=== PATIENT | female | born 1985 | race Caucasian/White ===

== ENCOUNTER 2022-07-05 10:19 | Emergency (ER) | payer MEDICARE, SELFPAY ==
[2022-07-05 10:22] VITALS: BP 147/99; PULSE 105; RESP 17; TEMP 36.1; O2SAT 100; BMI 44.4
--- NOTE | 2022-07-05 10:32 | US_ITS ---
STUDY: ULTRASOUND TRANSVAGINAL CLINICAL: Female, 37 years old. RT ABD PAIN NEAR INCISION- S/P HYSTERECTOMY IN APRIL TECHNIQUE: Transabdominal and Transvaginal COMPARISON: None. FINDINGS: The uterus is absent. Status post hysterectomy. The right ovary is not visualized. No adnexal mass is seen. The left ovary measures 3.1 x 1.9 x 1.5 cm. There is a complex mass in the left ovary measuring about 1.2 cm could represent hemorrhagic cyst or less likely solid mass. There is no free fluid in the pelvis. US/Transvaginal Non- IMPRESSION: 1. Status post hysterectomy. 2. Nonvisualization of the right ovary. 3. Small complex mass in the left ovary could represent hemorrhagic cyst. Solid mass that this likely. Follow-up exam in 2 months is recommended. Electronically Signed: Zhang Meade MD at 12:16 EDT ,
--- NOTE | 2022-07-05 10:34 | EDS_ITS ---
HPI HPI - GI History of Present Illness Chief Complaint: Abd Pain Narrative Narrative: 37-year-old female presenting with right-sided abdominal pain. She states that in April she had a hysterectomy with removal of her fallopian tubes and her cervix. [place] She states that she recently had to move to [place]. She is not established with any providers. She states she is scheduled to have a primary care provider in [employer] appointment at the end of the month. She states that she had 2 seizures on Wednesday which may have caused the pain. Her describes this as tonic-clonic and pretty standard for her. She does have breakthrough seizures from time to time. She is on Vimpat and medical marijuana. She has not any seizures since. She did not have any head injury. Patient concerned she might of torn something on the inside of her abdomen but this is just below her incision site on the right side of her abdomen. She has 4 incision sites and the other 3 are not tender. She has had a small amount of vaginal spotting but no shauna bleeding. No vaginal discharge. She has nausea but is not febrile. She describes her pain as a tearing sensation. It is worse with movement. She has not had any constipation or diar janna. She does express concern that she has a history of ovarian torsion in the past due to ovarian cysts. She states this pain does not feel like previous ovarian cysts. She is unsure if it feels like a previous torsion. It is high up on her mid abdomen on the right underneath the surgical site however she states that her uterine pain was also very high. Patient is also had a gastric bypass in the past. She is not on any blood thinners. [facility] Medical History Anxiety Depression Intracranial hypertension Ovarian cyst Seizure Home Medications Cymbalta 60 mg PO/SL BID 07/05/22 [History Last Taken Unknown] Vimpat 150 mg PO/SL BID 07/05/22 [History Last Taken Unknown] aripiprazole 5 mg tablet 5 mg PO QHS 07/05/22 [History Last Taken Unknown] lorazepam 0.5 mg tablet 0.5 mg PO DAILY PRN PRN Anxiety 07/05/22 [History Last Taken Unknown] nortriptyline 75 mg capsule 75 mg PO DAILY 07/05/22 [History Last Taken Unknown] omeprazole 20 mg PO/SL DAILY 07/05/22 [History Last Taken Unknown] tramadol 50 mg tablet 50 mg PO PRN PRN Pain 07/05/22 [History Last Taken Unknown] Allergy/AdvReac Type Severity Reaction Status Date / Time Penicillins Allergy Rash Verified 07/05/22 10:22 gabapentin AdvReac TREMORS Verified 07/05/22 10:22 NSAIDS (Non-Steroidal AdvReac GASTRIC Verified 07/05/22 10:22 Anti-Inflamma BYPASS Surgical History H/O: hysterectomy Social History Smoking Status: Current every day smoker tobacco type: e-cigarettes ROS ROS ED Constitutional Constitutional ED: Denies chills or fever(s) ENT ENT ED: Denies rhinorrhea or sore throat Cardiovascular Cardiovascular: Denies chest pain or palpitations Respiratory/Chest Respiratory/Chest: Denies cough or dyspnea Gastrointestinal Gastrointestinal: Reports abdominal pain and nausea; Denies constipation, diarrhea or vomiting Genitourinary Genitourinary ED: Reports other Details: Scant vaginal spotting ; Denies dysuria or urinary frequency Musculoskeletal Musculoskeletal: Denies arthralgias or back pain Integumentary Denies abscess Neurologic Neurologic: Denies headache(s) Psychiatric Psychiatric: Denies anxiety or depression EXAM Physical Exam Const Vital Signs: 07/05/22 10:22 07/05/22 13:09 Temperature 96.9 F L Temperature Source Temporal Pulse Rate 105 H 93 Respiratory Rate 17 16 Blood Pressure 147/99 H 127/84 H Blood Pressure Mean 115 98 Pulse Ox 100 97 Oxygen Delivery Method Room Air Room Air Positive well nourished and obese General Appearance ED: NAD; Negative for pallor Nutritional Appearance: obese HEENT Reports TM's clear and moist mucous membranes Tympanic Membrane ED: Yes TM's clear Eyes PERRL and EOMs intact bilaterally General Eye ED: Negative for pale conjunctiva Neck no lymphadenopathy Resp normal respiratory effort and clear to auscultation bilaterally Auscultation: Negative for rales, rhonchi or wheezes Cardio regular rhythm Rate: tachycardic GI Palpation: tender RLQ, RUQ, periumbilical and suprapubic Extremity full ROM General Extremety ED: Negative for edema or tenderness General Extremity: Negative for edema Neuro CN's II-XII intact bilaterally, moves all extremities and no sensory deficits noted Sensorium / Orientation: alert, oriented to person, oriented to place and oriented to time Motor Exam: strength 5/5 throughout Psych mental status grossly normal Mood & Affect: Negative for depressed Skin no wounds General Skin Exam: Negative for jaundice or pallor MDM MDM MDM Narrative Medical decision making narrative: Patient presenting with abdominal pain which is right-sided. Patient given a dose of morphine and Zofran on arrival. IV fluids were also given. Obtained lab work and her CBC and CMP are normal. Lipase is negative. Patient has concern for ovarian torsion and a transvaginal ultrasound was obtained. This does show a small ovarian cyst on the left side which could be a hemorrhagic cyst but she is not having any pain here. She does have history of multiple cyst she states. There is nonvisualization of the right ovary although she is not in significant pain after being medicated. She appears comfortable. I did obtain a CT of the abdomen pelvis with IV contrast which does not show any inflammation in the area of the right ovary and her lab work certainly would not reflect any inflammation/infection. She does have a large amount of fecal retention which I think is most likely the cause of her pain. I counseled her on the findings. She is to do MiraLAX at home for the next 3 days. Return precautions were discussed. I recommended establishing with a primary care provider. Impression: 1. Postoperative pain 2. Abdominal pain 3. Constipation 4. History of ovarian cyst Lab Data Labs: Laboratory Results - last 24 hr 07/05/22 07/05/22 10:40 10:40 WBC 7.0 RBC 4.27 Hgb 13.8 Hct 41.6 MCV 97.4 MCH 32.3 H MCHC 33.2 RDW Std Deviation 43.8 RDW Coeff of Analilia 12.2 Plt Count 237 MPV 9.6 Immature Gran % (Auto) 0.300 Neut % (Auto) 66.3 Lymph % (Auto) 25.1 [place] % (Auto) 6.6 Eos % (Auto) 1.1 Baso % (Auto) 0.6 Absolute Neuts (auto) 4.6 Absolute Lymphs (auto) 1.75 Nucleated RBC % 0 Sodium 140 Potassium 4.5 Chloride 107 Carbon Dioxide 29.0 Anion Gap 4 L BUN 16 Creatinine 0.66 Estim Creat Clear Calc 100.78 Est GFR (MDRD) Af Amer 129 Est GFR (MDRD) Non-Af 106 BUN/Creatinine Ratio 24.1 H Glucose 95 Calcium 8.4 L Total Bilirubin 0.40 AST 20 ALT 31 Alkaline Phosphatase 95 Total Protein 6.4 Albumin 3.3 Globulin 3.1 Albumin/Globulin Ratio 1.1 Lipase 169 Radiography Diagnostic Testing: Clinical Impression(s) from Imaging Studies Transvaginal US 07/05/22 10:32 IMPRESSION: 1. Status post hysterectomy. 2. Nonvisualization of the right ovary. 3. Small complex mass in the left ovary could represent hemorrhagic cyst. Solid mass that this likely. Follow-up exam in 2 months is recommended. Electronically Signed: Zhang Meade MD at 12:16 EDT , Abdomen/Pelvis CT 07/05/22 11:23 IMPRESSION: 1. Borderline to mild hepatosplenomegaly. 2. Status post gastric surgery. No evidence of bowel obstruction. 3. No focal acute inflammatory process. 4. Status post hysterectomy and cholecystectomy.. Electronically Signed: Zhang Meade MD at 12:36 EDT , Discharge Plan Triage Chief Complaint: Abd Pain ED Provider: Lon Galan Dx/Rx/DC Orders Instructions: ED Abdominal Pain Unkn Cause Fem, ED Constipation (Adult), ED Post Op Wound Check, Pain Prescriptions: No Action tramadol 50 mg tablet 50 mg PO PRN PRN (Reason: Pain) Label Comments: TAKE 1 TABLET BY MOUTH TWICE DAILY NEEDED . 60 TABLETS PER 30 DAYS lorazepam 0.5 mg tablet 0.5 mg PO DAILY PRN PRN (Reason: Anxiety) Label Comments: TAKE 1 TABLET BY MOUTH ONCE DAILY nortriptyline 75 mg capsule 75 mg PO DAILY Label Comments: TAKE 1 CAPSULE BY MOUTH ONCE DAILY aripiprazole 5 mg tablet 5 mg PO QHS Label Comments: TAKE 1 TABLET BY MOUTH NIGHTLY Cymbalta 60 mg PO/SL BID Vimpat 150 mg PO/SL BID omeprazole 20 mg PO/SL DAILY Primary Care Provider: Damien Uriarte Referrals: Damien Uriarte MD [Primary Care Provider] - Disposition Disposition: Home, Self Care
[2022-07-05] MEDS: Ondansetron 4 MG/2 ML Vial IV ×2 (10:47→12:29)
[2022-07-05] MEDS: 0.9% Normal Saline 1,000 ML 1000 ML IV (10:47)
[2022-07-05] MEDS: Morphine 4 MG/ML Syringe IV ×2 (10:47→12:30)
[2022-07-05 10:52] LABS: Absolute Lymphocyte Count 1.75 X10^3/uL (0.83-4.51); Absolute Neutrophil Count 4.6 X10^3/uL (2.0-7.7); Basophil# 0.04 X10^3/uL; Basophil% 0.6 % (0-1); Eosinophil# 0.08 X10^3/uL; Eosinophils% 1.1 % (0-5); Hematocrit 41.6 % (37-47); Hemoglobin 13.8 g/dL (12.0-15.0); Lymphocyte # 1.75 X10^3/ul (0.83-4.51); Lymphocyte % 25.1 % (19-41); Mean Corp Hgb Conc 33.2 g/dL (32-36); Mean Corpuscular Hgb 32.3 pg (27.0-32.0); Mean Corpuscular Volume 97.4 fL (81-99); Mean Platelet Vol. 9.6 fl (6.2-12.0); Monocyte# 0.46 X10^3/uL; Monocyte% 6.6 % (0-10); NRBC Flagged by Analyzer 0 % (0-5); Neutrophil # 4.61 X10^3/uL (2.7-7.7); Neutrophil % 66.3 % (47-70); Platelet Count 237 K/mm3 (150-450); RBC Distribution Width CV 12.2 % (11.6-14.6); RBC Distribution Width SD 43.8 fl (35.1-43.9); Red Blood Count 4.27 M/mm3 (4.2-5.4)
[2022-07-05 11:07] LABS: ALB/GLOB Ratio 1.1 RATIO (0.9-2.4); AST(SGOT) 20 U/L (15-37); Alanine Aminotransfer ALT/SGPT 31 U/L (13-56); Albumin, Serum 3.3 g/dL (3.2-5.0); Alkaline Phosphatase 95 U/L (45-117); Anion Gap 4 (5-15); BUN 16 mg/dL (7-18); BUN/Creat Ratio 24.1 RATIO (10-20); Calcium,Total 8.4 mg/dL (8.5-10.1); Chloride 107 mmol/L (98-107); Creatinine, Serum 0.66 mg/dL (0.55-1.02); EST Glomerular Filtration Rate 106 mL/min (>60); Est Glom Filt Rate - Afr Amer 129 mL/min (>60); Estimated Creatinine Clearance 100.78 ml/min; Globulin 3.1 g/dL (2.2-4.2); Glucose 95 mg/dL (74-106); Lipase 169 U/L (73-393); Potassium 4.5 mmol/L (3.5-5.1); Protein, Total 6.4 g/dL (6.4-8.2); Sodium Level 140 mmol/L (136-145)
--- NOTE | 2022-07-05 11:23 | CT_ITS ---
STUDY: CT ABDOMEN AND PELVIS WITH CONTRAST REASON FOR EXAM: Female, 37 years old. Right sided abdominal pain RADIATION DOSAGE (If Supplied By Facility): CTDIvol = ( 16.83 ) mGy, DLP = ( 1235.66 ) mGycm TECHNIQUE: Transaxial images were obtained from the dome of the diaphragm to the symphysis pubis without oral contrast. IV 100mL Isovue-370 was administered. Sagittal and coronal images were reconstructed. Individualized dose optimization techniques were used for this CT. COMPARISON: None. FINDINGS: The visualized lung bases are unremarkable. The visualized portions of the heart are within normal limits. Borderline to mild hepatomegaly. No focal lesion is seen. There are surgical clips in the gallbladder fossa consistent with a prior cholecystectomy. Borderline splenomegaly. Mild prominence of the pancreatic duct. Normal bilateral adrenal glands. Normal right kidney. Normal left kidney. Status post gastric surgery probably bypass. Normal caliber small bowel loops. Fecal retention. No evidence of acute diverticulitis. There are surgical clips in the region of the appendix consistent with a prior appendectomy. Normal abdominal aorta. Normal inferior vena cava. Normal retroperitoneum. Normal urinary bladder. There is absence of the uterus consistent with a prior hysterectomy. Normal abdominal wall. No demonstrated acute osseous changes. CT/Abdomen/Pelvis W IV Cont ONLY IMPRESSION: 1. Borderline to mild hepatosplenomegaly. 2. Status post gastric surgery. No evidence of bowel obstruction. 3. No focal acute inflammatory process. 4. Status post hysterectomy and cholecystectomy.. Electronically Signed: Zhang Meade MD at 12:36 EDT ,
[2022-07-05 13:09] VITALS: BP 127/84; PULSE 93; RESP 16; O2SAT 97
[2022-07-05 13:51] VITALS: BP 132/74; PULSE 64; RESP 15; O2SAT 98
== END 2022-07-05 13:51 | disposition home or self-care (01) ==
PROVIDERS: Emergency Provider Student in an Organized Health Care Education/Training Program; PCP Family Medicine; Visit Provider Student in an Organized Health Care Education/Training Program
DX: K59.00 Constipation, unspecified (principal); G40.909 Epilepsy, unspecified, not intractable, without status epilepticus; N83.202 Unspecified ovarian cyst, left side; G89.18 Other acute postprocedural pain; E66.9 Obesity, unspecified; F32.A Depression, unspecified; F41.9 Anxiety disorder, unspecified; F17.290 Nicotine dependence, other tobacco product, uncomplicated; Z90.710 Acquired absence of both cervix and uterus; Z79.899 Other long term (current) drug therapy
CPT/HCPCS: 74177; 76830; 80053; 83690; 85025; 96361; 96374; 96375; 96376; 99282; J7030; Q9967; A4216; J2405

== ENCOUNTER 2024-06-18 16:53 | Emergency (ER) | payer MEDICARE, BC, SELFPAY ==
[2024-06-18 16:53] VITALS: BP 159/99; PULSE 89; RESP 18; TEMP 37.2; O2SAT 100; BMI 49.1
--- NOTE | 2024-06-18 17:15 | EDS_ITS ---
HPI History of Present Illness Chief Complaint: Flank Pain Informant: patient and spouse/S.O. Narrative Narrative: 39-year-old female presenting to the emergency room with flank and abdominal pain on the right side. Patient states that over the past week week and a half she has had urinary frequency. She states that she ate lunch around noon to 1230. She did not eat anything out of the ordinary for her consisting of a veggie burger and some applesauce. She states that around 1400 hrs. she got a severe pain in the right flank radiating down towards the right lower abdomen. She notes nausea and vomiting. No diarrhea. She has had prior cholecystectomy. She has pseudotumor cerebri and gets lumbar punctures about every 5 weeks. She has also had gastric bypass. She states that she was very warm. She had a fever and is concerned about a kidney infection. [facility] Medical History Intracranial hypertension Seizure Ovarian cyst Depression Anxiety Home Medications ?Medication ?Instructions ?Recorded ?Last Taken ?Type Cymbalta 60 mg PO/SL BID 07/05/22 Unknown History Vimpat 150 mg PO/SL BID 07/05/22 Unknown History aripiprazole 5 mg tablet 5 mg PO QHS 07/05/22 Unknown History lorazepam 0.5 mg tablet 0.5 mg PO DAILY PRN PRN Anxiety 07/05/22 Unknown History nortriptyline 75 mg capsule 75 mg PO DAILY 07/05/22 Unknown History omeprazole 20 mg PO/SL DAILY 07/05/22 Unknown History tramadol 50 mg tablet 50 mg PO PRN PRN Pain 07/05/22 Unknown History magnesium citrate 300 ml PO X1 #1 BOTTLE 06/18/24 Unknown Rx Allergy/AdvReac Type Severity Reaction Status Date / Time Penicillins Allergy Rash Verified 06/18/24 16:53 gabapentin AdvReac TREMORS Verified 06/18/24 16:53 NSAIDS (Non-Steroidal AdvReac GASTRIC Verified 06/18/24 16:53 Anti-Inflamma BYPASS Surgical History S/P [employer] shunt History of appendectomy History of cholecystectomy Gastric bypass status for obesity H/O: hysterectomy Social History Smoking Status: Current every day smoker tobacco type: e-cigarettes ROS ROS ED Constitutional Constitutional ED: Reports fever(s), subjective and sweats; Denies chills or chase ght loss Eyes Eyes: Denies change in vision or diplopia ENT ENT ED: Denies ear pain, rhinorrhea or sore throat Cardiovascular Cardiovascular: Denies chest pain, orthopnea, palpitations or racing heartbeat Respiratory/Chest Respiratory/Chest: Denies cough, dyspnea or orthopnea Gastrointestinal Gastrointestinal: Reports abdominal pain, nausea and vomiting; Denies constipation or diarrhea Genitourinary Genitourinary ED: Denies dysuria, hematuria or urinary frequency Musculoskeletal Musculoskeletal: Denies arthralgias or myalgias Integumentary Denies abscess or rash Neurologic Neurologic: Denies headache(s) or weakness Psychiatric Psychiatric: Denies anxiety, depression, suicidal ideation or suicidal thoughts Endocrine Endocrinology: Denies polydipsia, polyphagia or polyuria Allergic/Immunologic Allergic/Immunologic ED: Denies mouth swelling, tongue swelling or urticaria EXAM Physical Exam Const Vital Signs: 06/18/24 16:53 Temperature 98.9 F Temperature Source Temporal Pulse Rate 89 Respiratory Rate 18 Blood Pressure 159/99 H Blood Pressure Mean 119 Pulse Ox 100 Oxygen Delivery Method Room Air Positive well nourished, well developed and obese Constitutional Narrative: Patient lying in bed holding her right lower abdomen and right flank. She appears uncomfortable. General Appearance ED: well developed Nutritional Appearance: obese HEENT Reports normocephalic, head/scalp atraumatic and moist mucous membranes Eyes PERRL and EOMs intact bilaterally Neck no lymphadenopathy, supple and no JVD Resp normal respiratory effort and clear to auscultation bilaterally Cardio regular rate, regular rhythm and no murmurs GI Inspection: Negative for abdominal distention Auscultation: normoactive bowel sounds Palpation: soft and tender RLQ Back/Spine no CVA tenderness and normal ROM Back/Spine Narrative: There is some purple ecchymotic area around L5-S1 consistent with lumbar pun ctures. No evidence of secondary infection Extremity normal to inspection General Extremety ED: Negative for edema General Extremity: Negative for edema Neuro oriented x3 and CN's II-XII intact bilaterally Sensorium / Orientation: alert Motor Exam: strength 5/5 throughout Psych mental status grossly normal Mood & Affect: Negative for depressed or tearful Skin no rashes or lesions noted and no wounds MDM MDM MDM Narrative Medical decision making narrative: Differential diagnosis includes but not limited to UTI pyelonephritis ureterolithiasis appendicitis colitis choledocholithiasis pelvic pathology such as abscess and psoas IV established patient received morphine and Zofran and IV fluids. She notes that her pain seems worse after the morphine. She received a dose of p.o. Bentyl. White count 7.3 hemoglobin 13 platelet count 240. BMP showed a glucose of 109 normal creatinine and anion gap of 4 BUN of 11 CO2 of 28 liver enzymes are within normal limits. Lipase 87 test negative urinalysis no overt infection no obvious hematuria. Reviewing of the CT scan shows no acute findings. Findings associate with fatty liver were noted. There was a large amount of stool noted in the ascending colon particularly indenting of the miya dder. Perhaps this is the source of the patient's discomfort. We can try some magnesium citrate. Would recommend PCP follow-up return if worsening or new symptoms History & Record Review Discussion w/independent historian: Patient and Significant other Lab Data Attestation: I reviewed the patient's lab results. Labs: Laboratory Results - last 24 hr 06/18/24 06/18/24 17:10 17:25 WBC 7.3 RBC 4.44 Hgb 13.0 Hct 40.1 MCV 90.3 MCH 29.3 MCHC 32.4 RDW Std Deviation 42.6 RDW Coeff of Analilia 12.9 Plt Count 240 MPV 10.2 Immature Gran % (Auto) 0.300 Neut % (Auto) 61.7 Lymph % (Auto) 29.2 [place] % (Auto) 6.7 Eos % (Auto) 1.4 Baso % (Auto) 0.7 Absolute Neuts (auto) 4.5 Absolute Lymphs (auto) 2.14 Nucleated RBC % 0 Sodium 138 Potassium 3.8 Chloride 106 Carbon Dioxide 28.0 Anion Gap 4 L BUN 11 Creatinine 0.71 Estim Creat Clear Calc 142.24 Est GFR (MDRD) Af Amer 118 Est GFR (MDRD) Non-Af 97 BUN/Creatinine Ratio 15.5 Glucose 109 H Calcium 8.4 L Total Bilirubin 0.40 Direct Bilirubin 0.10 AST 15 ALT 20 Alkaline Phosphatase 111 Total Protein 6.5 Albumin 3.3 Globulin 3.2 Lipase 87 H Serum , Qual NEGATIVE Urine Color Yellow Urine Clarity Clear Urine pH 7.0 Ur Specific [place] 1.005 Urine Protein Negative Urine Glucose (UA) Normal Urine Ketones Negative Urine Occult Blood 150 H Urine Nitrite Negative Urine Bilirubin Negative Urine Urobilinogen Normal Ur Leukocyte Esterase 25 H Urine RBC 0 SEEN Urine WBC 0 SEEN Ur Squamous Epith Cells 0-5 SEEN Urine Bacteria 0 SEEN Urine Mucus 0 SEEN Radiography Diagnostic Testing: Clinical Impression(s) from Imaging Studies Abdomen/Pelvis CT 06/18/24 18:09 IMPRESSION: Enlarged liver. Electronically Signed: Koko Berger MD at 18:37 EDT Reading Location ID and State: [facility] / [place] , Service support , Discharge Plan Triage Chief Complaint: Flank Pain ED Provider: Dong Hardwick Dx/Rx/DC Orders Clinical Impression: Abdominal pain Instructions: Abdominal Pain Prescriptions: New magnesium citrate Solution 300 ml PO X1 Qty: 1 0RF No Action tramadol 50 mg tablet 50 mg PO PRN PRN (Reason: Pain) Patient Comments: TAKE 1 TABLET BY MOUTH TWICE DAILY NEEDED . 60 TABLETS PER 30 DAYS lorazepam 0.5 mg tablet 0.5 mg PO DAILY PRN PRN (Reason: Anxiety) Patient Comments: TAKE 1 TABLET BY MOUTH ONCE DAILY nortriptyline 75 mg capsule 75 mg PO DAILY Patient Comments: TAKE 1 CAPSULE BY MOUTH ONCE DAILY aripiprazole 5 mg tablet 5 mg PO QHS Patient Comments: TAKE 1 TABLET BY MOUTH NIGHTLY Cymbalta 60 mg PO/SL BID Vimpat 150 mg PO/SL BID omeprazole 20 mg PO/SL DAILY Primary Care Provider: Fede Whitaker Referrals: Fede Whitaker MD [Primary Care Provider] - 3-5 Days if not improving Activity Restrictions/Additional Instructions: If fever or worsening symptoms new symptoms or not improving you may return to the emergency department particularly in the next 24 hours. If persistent unchanging symptoms you may also follow-up with primary care Print Language: Armenian Disposition Disposition: Home, Self Care
[2024-06-18] MEDS: 0.9% Normal Saline (1000mL) 1,000 ML 999 ML IV (17:26)
[2024-06-18] MEDS: Ondansetron 4 MG/2 ML Vial IV (17:27)
[2024-06-18] MEDS: Morphine 4 MG/ML Syringe IV (17:27)
[2024-06-18 17:30] LABS: Bacteria 0 SEEN /hpf (None Seen); Mucous, Urine 0 SEEN /hpf (<or=2+); Red Blood Cells-Urine 0 SEEN /hpf (0-5); White Blood Cells 0 SEEN /hpf (0-5)
[2024-06-18 17:34] LABS: Absolute Lymphocyte Count 2.14 X10^3/uL (0.83-4.51); Absolute Neutrophil Count 4.5 X10^3/uL (2.0-7.7); Basophil# 0.05 X10^3/uL; Basophil% 0.7 % (0-1); Eosinophils% 1.4 % (0-5); Hematocrit 40.1 % (37-47); Lymphocyte # 2.14 X10^3/ul (0.83-4.51); Lymphocyte % 29.2 % (19-41); Mean Corp Hgb Conc 32.4 g/dL (32-36); Mean Corpuscular Hgb 29.3 pg (27.0-32.0); Mean Corpuscular Volume 90.3 fL (81-99); Mean Platelet Vol. 10.2 fl (6.2-12.0); Monocyte# 0.49 X10^3/uL; Monocyte% 6.7 % (0-10); NRBC Flagged by Analyzer 0 % (0-5); Neutrophil # 4.54 X10^3/uL (2.7-7.7); Neutrophil % 61.7 % (47-70); Platelet Count 240 K/mm3 (150-450); RBC Distribution Width CV 12.9 % (11.6-14.6); RBC Distribution Width SD 42.6 fl (35.1-43.9); Red Blood Count 4.44 M/mm3 (4.2-5.4); White Blood Count 7.3 K/mm3 (4.4-11.0)
[2024-06-18 17:36] LABS: Color, Urine Yellow (Yellow); Glucose, Dipstick Normal (Normal); Ketone-Dipstick Negative (Negative); Leukocyte Esterase-Dipstick 25 /ul (Negative); Nitrite-Dipstick Negative (Negative); Occult Blood-Urine 150 /ul (Negative); Protein-Dipstick Negative (Negative); Specific Gravity, Urine 1.005 (1.002-1.030); Urine Bilirubin Dipstick Negative (Negative); Urine Clarity Clear (Clear); Urine Urobilinogen Normal (Normal)
[2024-06-18 17:51] LABS: Squamous Epithelial Cells - UA 0-5 SEEN /hpf (5-10)
[2024-06-18 17:52] LABS: Internal QC Validated? YES +Cl - CLEAR BKGD; Pregnancy, Serum, hCG Quali. NEGATIVE Negative
[2024-06-18 17:58] LABS: AST(SGOT) 15 U/L (15-37); Alanine Aminotransfer ALT/SGPT 20 U/L (13-56); Albumin, Serum 3.3 g/dL (3.2-5.0); Alkaline Phosphatase 111 U/L (45-117); Anion Gap 4 (5-15); BUN 11 mg/dL (7-18); BUN/Creat Ratio 15.5 RATIO (10-20); Calcium,Total 8.4 mg/dL (8.5-10.1); Chloride 106 mmol/L (98-107); Creatinine, Serum 0.71 mg/dL (0.55-1.02); EST Glomerular Filtration Rate 97 mL/min (>60); Est Glom Filt Rate - Afr Amer 118 mL/min (>60); Estimated Creatinine Clearance 142.24 ml/min; Globulin 3.2 g/dL (2.2-4.2); Glucose 109 mg/dL (74-106); Lipase 87 U/L (13-75); Potassium 3.8 mmol/L (3.5-5.1); Protein, Total 6.5 g/dL (6.4-8.2); Sodium Level 138 mmol/L (136-145)
--- NOTE | 2024-06-18 18:09 | CT_ITS ---
EXAM: CT ABDOMEN AND PELVIS WITH INTRAVENOUS CONTRAST CLINICAL INDICATION: rt sided abd pain TECHNIQUE: Helically acquired images were obtained of the abdomen and pelvis with intravenous contrast. This CT exam was performed using one or more of the following dose reduction techniques: automated exposure control, adjustment of the mA and/or kV according to patient size, and/or use of iterative reconstruction technique. CONTRAST: IV 100mL Isovue-370 RADIATION DOSE: CTDIvol = 16.96 mGy, DLP = 1267.86 mGy-cm COMPARISON: 07.05.22 FINDINGS: LOWER THORAX: Unremarkable. Lung bases are clear. No cardiomegaly. No significant pericardial effusion. ABDOMEN: LIVER: Enlarged liver. GALLBLADDER AND BILE DUCTS: Cholecystectomy. No intra- or extrahepatic biliary ductal dilation. PANCREAS: Unremarkable. No focal cystic or solid mass. SPLEEN: Unremarkable. Normal size without focal cystic or solid mass. ADRENALS: Unremarkable. No nodules. KIDNEYS AND URETERS: There are no renal calculi. Normal renal size and position. No hydronephrosis. STOMACH AND BOWEL: Gastric bypass changes. No stomach or bowel distention. No focal inflammatory change. PELVIS: APPENDIX: Appendectomy changes. BLADDER: Unremarkable. REPRODUCTIVE: Hysterectomy changes. ABDOMEN and PELVIS: INTRAPERITONEAL SPACE: Unremarkable. No ascites or other fluid collection. No free air. BONES/JOINTS: Unremarkable. No suspicious lytic or blastic abnormality. SOFT TISSUES: Unremarkable. No discrete abdominal or pelvic wall hernia. VASCULATURE: Unremarkable. Abdominal aorta is non-dilated. LYMPH NODES: Unremarkable. No enlarged lymph nodes. CT/Abdomen/Pelvis W IV Cont ONLY IMPRESSION: Enlarged liver. Electronically Signed: Koko Berger MD at 18:37 EDT ,
[2024-06-18] MEDS: Dicyclomine 10 MG Capsule 20 MG PO (18:39)
[2024-06-18 18:53] VITALS: BP 143/87; PULSE 83; RESP 16; O2SAT 99
[2024-06-18] MEDS: Magnesium Citrate 300 ML PO (19:15)
[2024-06-18 19:20] VITALS: BP 143/87; PULSE 83; RESP 16; TEMP 37.2; O2SAT 99
== END 2024-06-18 19:22 | disposition home or self-care (01) ==
PROVIDERS: Emergency Provider Emergency Medicine; PCP Family Medicine; Visit Provider Emergency Medicine
DX: R10.31 Right lower quadrant pain (principal); R50.9 Fever, unspecified; R35.0 Frequency of micturition; G93.2 Benign intracranial hypertension; R11.2 Nausea with vomiting, unspecified; F17.290 Nicotine dependence, other tobacco product, uncomplicated; Z79.899 Other long term (current) drug therapy; Z90.49 Acquired absence of other specified parts of digestive tract; Z98.84 Bariatric surgery status
CPT/HCPCS: 74177; 80048; 80076; 81001; 83690; 84703; 85025; 96361; 96374; 96375; 99283; Q9967; A4216; J2405

== ENCOUNTER → 2024-09-11 | Outpatient (CLI) | payer BC, MEDICARE, SELFPAY ==
--- NOTE | 2024-09-11 16:05 | RAD_ITS ---
STUDY: X-RAY - ABDOMEN/PELVIS REASON FOR EXAM: Female, 39 years old. severe constipation x3 weeks TECHNIQUE: COMPARISON: None. FINDINGS: Normal visualized lung bases. There is an unremarkable bowel gas pattern. Diffuse colonic fecal retention. There is no demonstrated free abdominal air. Surgical clips in the right upper quadrant. Normal soft tissue structures. Normal visualized osseous structures. RAD/Abdomen Single View IMPRESSION: Diffuse colonic fecal retention. Electronically Signed: Geronimo Amin DO at 16:17 EDT ,
== END | disposition home or self-care (01) ==
LOC: RAD.FUTURE 15:59 → RAD 16:01
PROVIDERS: PCP Family Medicine; Referring Provider Family Medicine; Visit Provider Family Medicine
DX: K59.00 Constipation, unspecified (principal)
CPT/HCPCS: 74018

== ENCOUNTER 2024-09-12 14:41 | Emergency (ER) | payer BC, MEDICARE, SELFPAY ==
[2024-09-12 14:43] VITALS: BP 138/91; PULSE 112; RESP 16; TEMP 35.9; O2SAT 98; BMI 46.1
--- NOTE | 2024-09-12 16:12 | CT_ITS ---
STUDY: CT ABDOMEN AND PELVIS WITHOUT CONTRAST REASON FOR EXAM: Female, 39 years old. Pain RADIATION DOSAGE (If Supplied By Facility): CTDIvol = ( 23.23 ) mGy, DLP = ( 1282.72 ) mGycm TECHNIQUE: Transaxial images were obtained from the dome of the diaphragm to the symphysis pubis without oral contrast, and without intravenous contrast. Sagittal and coronal images were reconstructed. Individualized dose optimization techniques were used for this CT. COMPARISON: June 18, 2024. FINDINGS: The visualized lung bases are unremarkable. The visualized portions of the heart are within normal limits. Normal liver. There are surgical clips in the gallbladder fossa consistent with a prior cholecystectomy. Normal spleen. Normal pancreas. Normal bilateral adrenal glands. Normal right kidney. Normal left kidney. Evaluation of the GI tract is limited by absence of oral contrast. There has been gastric bypass. No dilated loops of bowel or evidence for obstruction. Cannot exclude segmental thickening of the wang of the small or large bowel. Cannot exclude enteritis or colitis. Marked diffuse fecal retention. Suggestion of previous appendectomy. Normal abdominal aorta. Normal inferior vena cava. Normal retroperitoneum. Normal urinary bladder. There is absence of the uterus consistent with a prior hysterectomy. Normal abdominal wall. Normal osseous structures. CT/Abdomen/Pelvis without Cont IMPRESSION: Marked diffuse fecal retention. No definite acute abnormality. Electronically Signed: Darrell Caldera MD at 17:40 EDT ,
[2024-09-12] MEDS: Ondansetron 4 MG/2 ML Vial IV (16:30)
[2024-09-12] MEDS: morphine 8 MG/ML Syringe IV (16:30)
--- NOTE | 2024-09-12 16:32 | ED.VIS.GI ---
HPI HPI - GI History of Present Illness Chief Complaint: Constipation Informant: patient Narrative Narrative: Patient is a 39-year-old female presenting with worsening constipation and abdominal pain. She states has not had a bowel meant for the past month. She specifies that she has passed very small hard balls of stool over the past few days but nothing else. She has been passing gas. She has had increased periumbilical abdominal pain over the past 2 days that is significantly worse today. Has nausea and gagging but no vomiting. Had an outpatient x-ray which is concerning for fecal impaction she was sent to the ER. Has a history of multiple abdominal surgeries including gastric bypass ([id number]), hysterectomy, cholecystectomy and appendectomy. History of multiple [id number] medications including magnesium citrate, MiraLAX, Colace, Linzess and Metamucil with no relief. Is not tried any enemas. Has never had constipation to this degree in the past. No other complaints or concerns reported at this time. No fever reported [facility] Medical History Intracranial hypertension Seizure Ovarian cyst Depression Anxiety Home Medications ?Medication ?Instructions ?Recorded ?Last Taken ?Type Cymbalta 60 mg PO/SL BID 07/05/22 Unknown History Vimpat 150 mg PO/SL BID 07/05/22 Unknown History aripiprazole 5 mg tablet 5 mg PO QHS 07/05/22 Unknown History lorazepam 0.5 mg tablet 0.5 mg PO DAILY PRN PRN Anxiety 07/05/22 Unknown History nortriptyline 75 mg capsule 75 mg PO DAILY 07/05/22 Unknown History omeprazole 20 mg PO/SL DAILY 07/05/22 Unknown History tramadol 50 mg tablet 50 mg PO PRN PRN Pain 07/05/22 Unknown History magnesium citrate 300 ml PO X1 #1 BOTTLE 06/18/24 Unknown Rx dicyclomine 10 mg capsule 20 mg (2 x 10 mg) PO TID PRN 09/12/24 Unknown Rx abdominal pain #20 CAPSULES lactulose 10 gram/15 mL (15 mL) 15 ml PO BID PRN constipation #300 09/12/24 Unknown Rx oral solution mL Allergy/AdvReac Type Severity Reaction Status Date / Time nortriptyline Allergy Intermediate TREMORS Verified 09/12/24 14:43 pepper (genus Capsicum) Allergy Mild Rash Verified 09/12/24 14:43 Penicillins Allergy Rash Verified 09/12/24 14:43 gabapentin AdvReac TREMORS Verified 09/12/24 14:43 NSAIDS (Non-Steroidal AdvReac GASTRIC Verified 09/12/24 14:43 Anti-Inflamma BYPASS Surgical History 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 History of appendectomy History of cholecystectomy Gastric bypass status for obesity H/O: hysterectomy Social History Smoking Status: Current every day smoker tobacco type: e-cigarettes ROS ROS ED Constitutional Constitutional ED: Denies chills or fever(s) Cardiovascular Cardiovascular: Denies chest pain Respiratory/Chest Respiratory/Chest: Denies dyspnea Gastrointestinal Gastrointestinal: Reports abdominal pain, constipation and nausea; Denies vomiting Genitourinary Genitourinary ED: Denies dysuria or hematuria Musculoskeletal Musculoskeletal: Denies arthralgias or myalgias Integumentary Denies rash Neurologic Neurologic: Denies weakness Hematologic/Lymphatic Hematologic/Lymphatic: Denies easy bleeding or easy bruising EXAM Physical Exam Const Vital Signs: 09/12/24 14:43 09/12/24 16:41 09/12/24 17:57 Temperature 96.6 F L Temperature Source Temporal Pulse Rate 112 H 78 79 Respiratory Rate 16 16 16 Blood Pressure 138/91 H 132/82 H 115/77 Blood Pressure Mean 106 98 89 Pulse Ox 98 96 95 Oxygen Delivery Method Room Air Room Air 09/12/24 18:52 Temperature Temperature Source Pulse Rate 85 Respiratory Rate 16 Blood Pressure 115/75 Blood Pressure Mean 88 Pulse Ox 96 Oxygen Delivery Method Room Air Positive well nourished and well developed General Appearance ED: well developed and NAD; Negative for pallor HEENT Reports moist mucous membranes Neck supple Resp normal respiratory effort and clear to auscultation bilaterally Cardio regular rate and regular rhythm GI GI Narrative: Chaperoned rectal exam performed. No stool in the vault appreciated. No fecal impaction. Auscultation: hypoactive bowel sounds Palpation: soft and tender periumbilical; Negative for guarding Extremity full ROM Psych mental status grossly normal Mood & Affect: tearful Skin no wounds General Skin Exam: Negative for jaundice or pallor MDM MDM MDM Narrative Medical decision making narrative: Patient evaluated for 1 month of constipation and associated abnormal outpatient x-ray which showed diffuse fecal retention. She is clear of worsening periumbilical abdominal pain. Differential includes is not limited to constipation, bowel obstruction, toxic megacolon and perforation. Patient is having more tenderness than I would expect and is tearful. Is given a dose of morphine and Zofran in the emergency room. Workup including CBC, lactate, CMP and urinalysis as well as serum is performed. This is largely negative for any acute process. CT of the abdomen and pelvis shows marked diffuse fecal retention but no acute abnormality. Patient is given Toradol and Bentyl for further discomfort. Rectal exam was performed which does not show fecal impaction. Patient is given a soapsuds enema with some results. She has improvement of her symptoms. Patient is comfortable being discharged home. Will be discharged with prescription for lactulose as well as Bentyl. There is also instructed to increase her MiraLAX to 2 capfuls daily instead of 1. Encouraged to push fluids. Discussed going on a low fiber diet until she feels as she has been adequately cleaned out and then switching to a high-fiber diet to keep her self more regular. Will give referral to GI. Patient and significant other agreeable this plan of care. Patient discharged home in stable condition. Lab Data Attestation: I reviewed the patient's lab results. Labs: Laboratory Results - last 24 hr 09/12/24 09/12/24 09/12/24 16:30 16:40 18:08 WBC 8.2 RBC 4.48 Hgb 13.4 Hct 40.9 MCV 91.3 MCH 29.9 MCHC 32.8 RDW Std Deviation 48.2 H RDW Coeff of Analilia 14.5 Plt Count 284 MPV 11.2 Immature Gran % (Auto) 0.400 Neut % (Auto) 67.6 Lymph % (Auto) 23.9 [place] % (Auto) 6.4 Eos % (Auto) 1.2 Baso % (Auto) 0.5 Absolute Neuts (auto) 5.5 Absolute Lymphs (auto) 1.95 Nucleated RBC % 0 Sodium 141 Potassium 3.7 Chloride 111 H Carbon Dioxide 24.0 Anion Gap 6 BUN 11 Creatinine 0.58 Estim Creat Clear Calc 167.81 Est GFR (MDRD) Af Amer 150 Est GFR (MDRD) Non-Af 124 BUN/Creatinine Ratio 19.1 Glucose 83 Lactic Acid 0.8 Calcium 7.9 L Total Bilirubin 0.30 AST 15 ALT 37 Alkaline Phosphatase 95 Total Protein 6.1 L Albumin 3.1 L Globulin 3.0 Albumin/Globulin Ratio 1.0 Lipase 55 Serum , Qual NEGATIVE Urine Color Yellow Urine Clarity Clear Urine pH 8.0 Ur Specific [place] 1.015 Urine Protein Negative Urine Glucose (UA) Normal Urine Ketones 15 H Urine Occult Blood Negative Urine Nitrite Negative Urine Bilirubin Negative Urine Urobilinogen Normal Ur Leukocyte Esterase 25 H Urine RBC 0 SEEN Urine WBC 0-5 SEEN Ur Squamous Epith Cells 0-5 SEEN Urine Bacteria RARE Urine Mucus 0 SEEN Radiography Diagnostic Testing: Clinical Impression(s) from Imaging Studies Abdomen/Pelvis CT 09/12/24 16:12 IMPRESSION: Marked diffuse fecal retention. No definite acute abnormality. Electronically Signed: Darrell Caldera MD at 17:40 EDT , Discharge Plan Triage Chief Complaint: Constipation ED Provider: Farideh Desouza Dx/Rx/DC Orders Clinical Impression: Constipation, Abdominal pain, diffuse Instructions: ED Constipation (Adult) Prescriptions: New lactulose 10 gram/15 mL (15 mL) solution 15 ml PO BID PRN (Reason: constipation) Qty: 300 0RF dicyclomine 10 mg capsule 20 mg PO TID PRN (Reason: abdominal pain) Qty: 20 0RF No Action tramadol 50 mg tablet 50 mg PO PRN PRN (Reason: Pain) Patient Comments: TAKE 1 TABLET BY MOUTH TWICE DAILY NEEDED . 60 TABLETS PER 30 DAYS lorazepam 0.5 mg tablet 0.5 mg PO DAILY PRN PRN (Reason: Anxiety) Patient Comments: TAKE 1 TABLET BY MOUTH ONCE DAILY nortriptyline 75 mg capsule 75 mg PO DAILY Patient Comments: TAKE 1 CAPSULE BY MOUTH ONCE DAILY aripiprazole 5 mg tablet 5 mg PO QHS Patient Comments: TAKE 1 TABLET BY MOUTH NIGHTLY Cymbalta 60 mg PO/SL BID Vimpat 150 mg PO/SL BID omeprazole 20 mg PO/SL DAILY magnesium citrate Solution 300 ml PO X1 Qty: 1 0RF Primary Care Provider: Fede Whitaker Referrals: Fede Whitaker MD [Primary Care Provider] - Friend,DO Wilton [Med Staff - Active Staff] - 1-2 Weeks Activity Restrictions/Additional Instructions: Increase your fluid intake. Go to a low fiber diet until your bowel movements have started to improve. Once you are going more regularly then switch to high-fiber diet. Follow-up with your primary care doctor. Increase your MiraLAX to 2 capfuls daily. It is okay if you do 1 capful in the morning 1 capsule in the evening. Please follow-up with GI and your primary care doctor. Print Language: [place] Disposition Disposition: Home, Self Care
[2024-09-12 16:39] LABS: Absolute Lymphocyte Count 1.95 X10^3/uL (0.83-4.51); Absolute Neutrophil Count 5.5 X10^3/uL (2.0-7.7); Basophil# 0.04 X10^3/uL; Basophil% 0.5 % (0-1); Eosinophils% 1.2 % (0-5); Hematocrit 40.9 % (37-47); Hemoglobin 13.4 g/dL (12.0-15.0); Lymphocyte # 1.95 X10^3/ul (0.83-4.51); Lymphocyte % 23.9 % (19-41); Mean Corp Hgb Conc 32.8 g/dL (32-36); Mean Corpuscular Hgb 29.9 pg (27.0-32.0); Mean Corpuscular Volume 91.3 fL (81-99); Mean Platelet Vol. 11.2 fl (6.2-12.0); Monocyte# 0.52 X10^3/uL; Monocyte% 6.4 % (0-10); NRBC Flagged by Analyzer 0 % (0-5); Neutrophil # 5.51 X10^3/uL (2.7-7.7); Neutrophil % 67.6 % (47-70); Platelet Count 284 K/mm3 (150-450); RBC Distribution Width CV 14.5 % (11.6-14.6); RBC Distribution Width SD 48.2 fl (35.1-43.9); Red Blood Count 4.48 M/mm3 (4.2-5.4); White Blood Count 8.2 K/mm3 (4.4-11.0)
[2024-09-12 16:41] VITALS: BP 132/82; PULSE 78; RESP 16; O2SAT 96
[2024-09-12 16:58] LABS: Internal QC Validated? YES +Cl - CLEAR BKGD; Pregnancy, Serum, hCG Quali. NEGATIVE Negative
[2024-09-12 17:01] LABS: AST(SGOT) 15 U/L (15-37); Alanine Aminotransfer ALT/SGPT 37 U/L (13-56); Albumin, Serum 3.1 g/dL (3.2-5.0); Alkaline Phosphatase 95 U/L (45-117); Anion Gap 6 (5-15); BUN 11 mg/dL (7-18); BUN/Creat Ratio 19.1 RATIO (10-20); Calcium,Total 7.9 mg/dL (8.5-10.1); Chloride 111 mmol/L (98-107); Creatinine, Serum 0.58 mg/dL (0.55-1.02); EST Glomerular Filtration Rate 124 mL/min (>60); Est Glom Filt Rate - Afr Amer 150 mL/min (>60); Estimated Creatinine Clearance 167.81 ml/min; Glucose 83 mg/dL (74-106); Lipase 55 U/L (13-75); Potassium 3.7 mmol/L (3.5-5.1); Protein, Total 6.1 g/dL (6.4-8.2); Sodium Level 141 mmol/L (136-145)
[2024-09-12 17:10] LABS: Lactic Acid 0.8 mmol/L (0.4-1.9)
[2024-09-12 17:57] VITALS: BP 115/77; PULSE 79; RESP 16; O2SAT 95
[2024-09-12] MEDS: Ketorolac 15 MG/ML Vial IV (18:05)
[2024-09-12] MEDS: Dicyclomine 10 MG Capsule PO (18:05)
[2024-09-12 18:11] LABS: Mucous, Urine 0 SEEN /hpf (<or=2+); Red Blood Cells-Urine 0 SEEN /hpf (0-5)
[2024-09-12 18:17] LABS: Color, Urine Yellow (Yellow); Glucose, Dipstick Normal (Normal); Ketone-Dipstick 15 mg/dl (Negative); Leukocyte Esterase-Dipstick 25 /ul (Negative); Nitrite-Dipstick Negative (Negative); Occult Blood-Urine Negative /ul (Negative); Protein-Dipstick Negative (Negative); Specific Gravity, Urine 1.015 (1.002-1.030); Urine Bilirubin Dipstick Negative (Negative); Urine Clarity Clear (Clear); Urine Urobilinogen Normal (Normal)
[2024-09-12 18:24] LABS: Bacteria RARE /hpf (None Seen); Squamous Epithelial Cells - UA 0-5 SEEN /hpf (5-10); White Blood Cells 0-5 SEEN /hpf (0-5)
[2024-09-12 18:52] VITALS: BP 115/75; PULSE 85; RESP 16; O2SAT 96
== END 2024-09-12 20:26 | disposition home or self-care (01) ==
PROVIDERS: Emergency Provider Emergency Medicine; PCP Family Medicine; Visit Provider Emergency Medicine
DX: K59.00 Constipation, unspecified (principal); R10.84 Generalized abdominal pain; Z90.710 Acquired absence of both cervix and uterus; Z79.899 Other long term (current) drug therapy; F17.290 Nicotine dependence, other tobacco product, uncomplicated; Z98.84 Bariatric surgery status; Z90.49 Acquired absence of other specified parts of digestive tract
CPT/HCPCS: 74176; 80053; 81001; 83605; 83690; 84703; 85025; 96374; 96375; 99285; A4216; J2405

== ENCOUNTER 2024-12-19 12:24 | Day surgery (SDC) | payer MEDICARE, SELFPAY ==
--- NOTE | 2024-12-15 12:29 | PAT.ANESEVAL ---
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 When Was Last Pacemaker Check QUESTION #4 FULL TEXT: You/Your Family Experience fever (hyperthermia) with Anesthesia Last Oral Intake Last Oral intake: Last Oral Intake NPO since Meds taken in AM with sips of water? Meds patient instructed to take am of surgery PONV PONV - plant safety engineer: PONV - plant safety engineer Female Yes 12/15/24 10:48 HX of Motion Sickness Yes 12/15/24 10:48 HX of N/V After Surgery No 12/15/24 10:48 Non-Smoker Yes 12/15/24 10:48 Duration of Surgery greater No 12/15/24 10:48 than 60 minutes Number of Risk Factors 3 12/15/24 10:48 PONV Score Moderate Risk 12/15/24 10:48 Height & Weight Height & Weight: Anesthesia: Height & Weight Height 5 ft 4 in 09/12/24 14:43 Respiratory Assessment Respiratory Assessment - plant safety engineer: Respiratory Tract Infection Hx - plant safety engineer Hx Respiratory Tract Infection No 12/15/24 10:48 STOP Sleep Apnea STOP Sleep Apnea - plant safety engineer: STOP Sleep Apnea - plant safety engineer Hx Hypertension Yes: YRS AGO/NO MEDS FOR 10 12/15/24 10:48 YRS Hx Sleep Apnea No 12/15/24 10:48 CPAP BIPAP Do you snore loudly (louder No 12/15/24 10:48 than talking or can be heard Do you often feel tired/ No 12/15/24 10:48 fatigued/ sleepy during daytime? Has anyone observed you stop No 12/15/24 10:48 breathing during sleep? STOP Results Negative 12/15/24 10:48 QUESTION #5 FULL TEXT : Do you snore loudly (louder than talking or can be heard through closed doors)? Tobacco Use History Tobacco Use History - plant safety engineer: Tobacco Use History - plant safety engineer Tobacco Use Smoking Status Never smoker 12/15/24 10:48 Hx Tobacco Use No 12/15/24 10:48 Years Smoking Packs Smoked per Day Smoking Cessation Date was within the last 15 years Hx Smoking Cessation Date Hx Smoking Cessation Counseling Hematologic Medial History Hematologic Hx - plant safety engineer: Hematologic Medical Hx - executive cyber leader Hx of Blood Transfusion No 12/15/24 10:48 Hx of Transfusion in last 3 No 12/15/24 10:48 Months Date of Last Transfusion (if within last 3 months) Ever experience any problems No 12/15/24 10:48 with transfusion(s)? Specify any problems Hx of Preganancy in last 3 No 12/15/24 10:48 Months Nurse Filling Out Transfusion DSCHRIBER 12/15/24 10:48 & Questions: Date: 12/15/24 12/15/24 10:48 Time: 10:49 12/15/24 10:48 Patient unable to answer at this time (ie. confused, unrespo /Reproduction History /Reproductive History - plant safety engineer: /Reproductive Hx- plant safety engineer Hx Now No 12/15/24 10:48 Gestational Age (in weeks): EDC: Hx Hx Para Hx Section SAB No 12/15/24 10:48 [facility] Medical History (Updated 12/15/24 @ 10:56 by Natalie Correa) Wears glasses Wears partial dentures Marijuana use Arthritis Back pain Migraine headache Intracranial hypertension Gastric reflux Non-smoker History of pain when walking Hypertension History of broken collarbone Seizure Ovarian cyst Depression Anxiety Home Medications ?Medication ?Instructions ?Recorded ?Last Taken ?Type aripiprazole 5 mg tablet 10 mg PO QHS 07/05/22 Unknown History lorazepam 0.5 mg tablet 0.5 mg PO DAILY PRN PRN Anxiety 07/05/22 Unknown History tramadol 50 mg tablet 50 mg PO PRN PRN Pain 07/05/22 Unknown History dicyclomine 10 mg capsule 20 mg (2 x 10 mg) PO TID PRN 09/12/24 Unknown Rx abdominal pain #20 CAPSULES omeprazole 40 mg capsule,delayed 40 mg PO QDAY #90 caps 10/17/24 Unknown Rx release WEYGOVY 20 u subcut RODRÍGUEZ 12/15/24 12/03/24 History duloxetine 60 mg capsule,delayed 60 mg PO BID 12/15/24 Unknown History release lacosamide 200 mg tablet 200 mg PO BID 12/15/24 Unknown History Allergy/AdvReac Type Severity Reaction Status Date / Time nortriptyline Allergy Intermediate TREMORS Verified 12/15/24 10:40 pepper (genus Capsicum) Allergy Mild Rash Verified 12/15/24 10:40 Penicillins Allergy Rash Verified 12/15/24 10:40 gabapentin AdvReac TREMORS Verified 12/15/24 10:40 NSAIDS (Non-Steroidal AdvReac GASTRIC Verified 12/15/24 10:40 Anti-Inflamma BYPASS Surgical History (Updated 12/15/24 @ 10:56 by Natalie Correa) Hx of colonoscopy Hx of tonsillectomy Hx of gastric bypass S/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 Recommendation Anesthesia Recommendation Anesthesia recommendation: OPTIMIZED for anesthesia
[2024-12-19] VITALS (8 sets, daily range): BP systolic 106–118; BP diastolic 74–92; PULSE 81–91; RESP 16–18; TEMP 36.9–37.2; O2SAT 97–100; BMI 43.4
--- NOTE | 2024-12-19 13:02 | PCM.HP.STD ---
HPI - General General Date of Admission: 12/19/24 Date of Service: 12/19/24 Chief Complaint: Abdominal pain and change in bowels HPI Narrative CONOR NGUYEN, is a 39 F who presents for the endoscopic evaluation of abdominal pain, change in bowels, gastroesophageal reflux disease, nausea, bloating. Pt has had constipation for as long as she can remember. She is s/p gastric bypass in 2013.Since starting semaglutide 2 months ago this has worsened. SHe will have a bm every couple of weeks. She did start taking magnesium daily and miralax every couple days which has helped some. She did have a colonoscopy at age 8 due to rectal bleeding and tells me she had a polyp. She is also having severe abdominal pain when she is constipate. This is a stabbing pain and has sent her to the ED before. SHe is s/p cholecystectomy. SHe does have upper GI complaint of heartburn. This has also been worsening with the semaglutide. She is currently on 20 md of omeprazole. SHe would like to increase the dose CT abd/pelvis 09.12.24; Marked diffuse fecal retention. No definite acute abnormality. [facility] Medical History Wears glasses Wears partial dentures Marijuana use Arthritis Back pain Migraine headache Intracranial hypertension Gastric reflux Non-smoker History of pain when walking Hypertension History of broken collarbone Seizure Ovarian cyst Depression Anxiety Home Medications ?Medication ?Instructions ?Recorded ?Last Taken ?Type aripiprazole 5 mg tablet 10 mg PO QHS 07/05/22 Unknown History lorazepam 0.5 mg tablet 0.5 mg PO DAILY PRN PRN Anxiety 07/05/22 Unknown History tramadol 50 mg tablet 50 mg PO PRN PRN Pain 07/05/22 Unknown History dicyclomine 10 mg capsule 20 mg (2 x 10 mg) PO TID PRN 09/12/24 Unknown Rx abdominal pain #20 CAPSULES omeprazole 40 mg capsule,delayed 40 mg PO QDAY #90 caps 10/17/24 12/19/24 Rx release WEYGOVY 20 u subcut RODRÍGUEZ 12/15/24 12/03/24 History duloxetine 60 mg capsule,delayed 60 mg PO BID 12/15/24 12/19/24 History release lacosamide 200 mg tablet 200 mg PO BID 12/15/24 12/19/24 History Allergy/AdvReac Type Severity Reaction Status Date / Time nortriptyline Allergy Intermediate TREMORS Verified 12/19/24 12:38 pepper (genus Capsicum) Allergy Mild Rash Verified 12/19/24 12:38 Penicillins Allergy Rash Verified 12/19/24 12:38 gabapentin AdvReac TREMORS Verified 12/19/24 12:38 NSAIDS (Non-Steroidal AdvReac GASTRIC Verified 12/19/24 12:38 Anti-Inflamma BYPASS Surgical History Hx of colonoscopy Hx of tonsillectomy Hx of gastric bypass S/P MANAGER PE shunt History of appendectomy History of cholecystectomy H/O: hysterectomy Social History Smoking Status: Never smoker ROS Constitutional Constitutional: Denies fatigue, fever(s), poor appetite, weight gain or weight loss Gastrointestinal Gastrointestinal: Denies belching, bloating, change in bowel habits, change in stool character, chewing difficulty, coffee ground emesis, constipation, cramping, diarrhea, dyspepsia, dysphagia, early satiety, excessive flatus, fecal incontinence, heartburn, hematemesis, hematochezia, hemorrhoids, loose stools, melena, nausea, odynophagia, rectal bleeding, tenesmus, vomiting or weight changes Vital Signs Vital Signs Vital Signs: 12/19/24 12:39 12/19/24 12:39 Temperature 98.5 F Temperature Source Temporal Pulse Rate 91 Respiratory Rate 16 Respiratory Pattern Normal Blood Pressure 106/92 H Blood Pressure Mean 96 Blood Pressure Source Monitor Blood Pressure Position Semi-Fowlers Blood Pressure Location Left Arm Pulse Ox 100 Oxygen Delivery Method Room Air Weight Weight: 253 lb Body Mass Index (BMI) 43.4 Physical Exam Const alert, oriented x3, no apparent distress and healthy appearing General Appearance: cooperative GI normal to inspection, nondistended, normoactive bowel sounds, soft to palpation, non-tender and non-distended Percussion: normal to percussion Rectal Exam: deferred Assessment & Plan Assessment/Plan (1) GERD (gastroesophageal reflux disease): PLAN: Assessment and Plan Assessment and Plan (1) Constipation: Status: Inactive Plan: This is a 39 yo female pt with long hx of constipation. CT scan from August 2024 showed fecal retention and could not rule out colitis. She will undergo colonoscopy to further rule out a colitis. She will also start miralax daily with the magnesium. She will also undergo EGD to assess her GERD symptoms. SHe is agreeable to plan. -EGD and colonoscopy -Continue PPI, increase to 40 mg -Start miralax daily -f/u following procedure (2) GERD (gastroesophageal reflux disease): Status: Acute Medications: New omeprazole 40 mg PO QDAY 90 caps 2RF (2) Abdominal pain:
--- NOTE | 2024-12-19 13:08 | PRE.ANES_ITS ---
ASA Classification* ASA Classification ASA Classification: 3 Assessment & Plan Anesthesia* Anesthesia Assessment Anesthesia Assessment: Discussed sedation and/or anesthesia options, risks, benefits, and alternatives with patient/parents/legal guardian/POA. Questions invited. The patient/parents/legal guardian/POA seems to understand and agrees to proceed with anesthesia plan. Reviewed the physical assessment, medical history, allergy history and patient home medications list prior to surgery/procedure/anesthetic and documented any changes. Performed airway and anesthesia risk assessments. Anesthesia Type Anesthesia Type: MAC History Source History Obtained from:: Patient and Chart Anesthesia Focused Assessment* Temperature: 98.5 F Pulse Rate: 91 Blood Pressure: 106/92 Respiratory Rate: 16 Pulse Ox: 100 Oxygen Delivery Method: Room Air Airway Assessment Mouth opens: >3 cm Mallampati Score: I Teeth Condition: Partial (Patient has top and bottom partials. They are out. Rest of the teeth are tight.) Neck Range of motion (ROM): Full ROM Focused Labs Anesthesia Preop lab: CBC WBC 8.2 K/mm3 (4.4-11.0) 09/12/24 16:30 RBC 4.48 M/mm3 (4.2-5.4) 09/12/24 16:30 Hgb 13.4 g/dL (12.0-15.0) 09/12/24 16:30 Hct 40.9 % (37-47) 09/12/24 16:30 Plt Count 284 K/mm3 (150-450) 09/12/24 16:30 CHEMISTRY Potassium 3.7 mmol/L (3.5-5.1) 09/12/24 16:30 Sodium 141 mmol/L (136-145) 09/12/24 16:30 BUN 11 mg/dL (7-18) 09/12/24 16:30 Creatinine 0.58 mg/dL (0.55-1.02) 09/12/24 16:30 Glucose 83 mg/dL (74-106) 09/12/24 16:30 COAG Pre-Assessment Diagnosis/Proposed Procedure Planned Operative Procedure(s): EGD/CSCOPE Anesthesia History 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 When Was Last Pacemaker Check QUESTION #4 FULL TEXT: You/Your Family Experience fever (hyperthermia) with Anesthesia Last Oral Intake Last Oral intake: Last Oral Intake NPO since 10:12/19/24 12:39 Meds taken in AM with sips of Yes 12/19/24 12:39 water? Meds patient instructed to see mar 12/19/24 12:39 take am of surgery Any additional information?: Yes NPO since: 09: (Patient finished prep at 9:30 AM.) Meds taken in AM with sips of water?: Yes PONV PONV - wood stock blank handler: PONV - wood stock blank handler Female Yes 12/15/24 10:48 HX of Motion Sickness Yes 12/15/24 10:48 HX of N/V After Surgery No 12/15/24 10:48 Non-Smoker Yes 12/15/24 10:48 Duration of Surgery greater No 12/15/24 10:48 than 60 minutes Number of Risk Factors 3 12/15/24 10:48 PONV Score Moderate Risk 12/15/24 10:48 Height & Weight Height & Weight: Anesthesia: Height & Weight Height 5 ft 4 in 12/19/24 12:39 Weight: 114.759 kg 12/19/24 12:39 Body Mass Index (BMI) 43.4 12/19/24 12:39 Respiratory Assessment Respiratory Assessment - wood stock blank handler: Respiratory Tract Infection Hx - wood stock blank handler Hx Respiratory Tract Infection No 12/15/24 10:48 STOP Sleep Apnea STOP Sleep Apnea - wood stock blank handler: STOP Sleep Apnea - wood stock blank handler Hx Hypertension Yes: YRS AGO/NO MEDS FOR 10 12/15/24 10:48 YRS Hx Sleep Apnea No 12/15/24 10:48 CPAP BIPAP Do you snore loudly (louder No 12/15/24 10:48 than talking or can be heard Do you often feel tired/ No 12/15/24 10:48 fatigued/ sleepy during daytime? Has anyone observed you stop No 12/15/24 10:48 breathing during sleep? STOP Results Negative 12/15/24 10:48 QUESTION #5 FULL TEXT : Do you snore loudly (louder than talking or can be heard through closed doors)? 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 Specify any problems Hx of Preganancy in last 3 No 12/15/24 10:48 Months Nurse Filling Out Transfusion DSCHRIBER 12/15/24 10:48 & Questions: Date: 12/15/24 12/15/24 10:48 Time: 10:49 12/15/24 10:48 Patient unable to answer at this time (ie. confused, unrespo /Reproduction History /Reproductive History - wood stock blank handler: /Reproductive Hx- wood stock blank handler Hx Now No 12/15/24 10:48 Gestational Age (in weeks): EDC: Hx Hx Para Hx Section SAB No 12/15/24 10:48 PFSH Medical History Wears glasses Wears partial dentures Marijuana use Arthritis Back pain Migraine headache Intracranial hypertension Gastric reflux Non-smoker History of pain when walking Hypertension History of broken collarbone Seizure Ovarian cyst Depression Anxiety Home Medications ?Medication ?Instructions ?Recorded ?Last Taken ?Type aripiprazole 5 mg tablet 10 mg PO QHS 07/05/22 Unknown History lorazepam 0.5 mg tablet 0.5 mg PO DAILY PRN PRN Anxiety 07/05/22 Unknown History tramadol 50 mg tablet 50 mg PO PRN PRN Pain 07/05/22 Unknown History dicyclomine 10 mg capsule 20 mg (2 x 10 mg) PO TID PRN 09/12/24 Unknown Rx abdominal pain #20 CAPSULES omeprazole 40 mg capsule,delayed 40 mg PO QDAY #90 caps 10/17/24 12/19/24 Rx release WEYGOVY 20 u subcut RODRÍGUEZ 12/15/24 12/03/24 History duloxetine 60 mg capsule,delayed 60 mg PO BID 12/15/24 12/19/24 History release lacosamide 200 mg tablet 200 mg PO BID 12/15/24 12/19/24 History Allergy/AdvReac Type Severity Reaction Status Date / Time nortriptyline Allergy Intermediate TREMORS Verified 12/19/24 12:38 pepper (genus Capsicum) Allergy Mild Rash Verified 12/19/24 12:38 Penicillins Allergy Rash Verified 12/19/24 12:38 gabapentin AdvReac TREMORS Verified 12/19/24 12:38 NSAIDS (Non-Steroidal AdvReac GASTRIC Verified 12/19/24 12:38 Anti-Inflamma BYPASS Surgical History Hx of colonoscopy Hx of tonsillectomy Hx of gastric bypass S/P SEAL MIXER shunt History of appendectomy History of cholecystectomy H/O: hysterectomy Social History Smoking Status: Never smoker Review of Systems (Anesthesia) ROS Narrative System reviewed and no additional complaints, except as documented.
--- NOTE | 2024-12-19 13:30 | COLBX_PTH ---
PATIENT: CONOR NGUYEN LOC: EN U#:[id number] AGE/SX: 39/F ROOM: RE12/19/[address]: Dr. Wilton Hunt DO : 1985 BED: DIS: 12/19/2024 SPEC #: [id number] RECD: 12/19/24 13:57 STATUS: ROBERTH CHIKIS #: [id number] MONTSE: 12/19/24 13:[address]: Wilton Hunt DEPT: SURGICAL PATHOLOGY RECD BY: Marino Gaffney ENTERED: 12/20/24 08:09 SP TYPE: COLON BX OTHR DR: Fede Whitaker MD Tissues: A - COLON BIOPSY B - Sigmoid colon biopsy Procedures: Surgery Specimen Level IV HEADER OPERATION: Colonoscopy with polypectomy, EGD with biopsy PRE-OP DIAGNOSIS: Constipation, GERD TISSUE SUBMITTED: A- Anastomosis biopsy, B- Sigmoid polyp MICROSCOPIC DIAGNOSIS A. Anastomosis, biopsy: Fragments of small intestinal mucosa, no pathologic diagnosis. B. Sigmoid polyp, polypectomy: Fragments of tubular adenoma. SJ. 12/21/2024 MICROSCOPIC DESCRIPTION Slides are reviewed. GROSS DESCRIPTION A. Received in fixative is one container labeled with the patient's name and designated Anastomosis biopsy. The specimen consists of two irregular fragments of light abreu soft tissue that in aggregate measure 0.8 x 0.3 x 0.2 cm. The specimen is totally submitted in one cassette. B. Received in fixative is one container labeled with the patient's name and designated Sigmoid polyp. The specimen consists of multiple irregular fragments of light abreu soft tissue that in aggregate measure 1.3 x 0.3 x 0.2 cm. The specimen is totally submitted in one cassette. [email or web address] 12/20/2024 TC:1 CPT:32926y4
--- NOTE | 2024-12-19 13:52 | PCM.POST.ANE ---
Anesthesia: Postop Eval I Current Vital Signs Temperature: 98.6 F Pulse Rate: 89 Blood Pressure: 111/76 Respiratory Rate: 18 Pulse Ox: 97 Assessment Airway patent: Yes Spontaneous unlabored respirations: Yes nausea: No Vomiting: No Anesthesia Complication: No Fluid Hydration Crystalloid volume administer (ml): 40 Total IV fluid infused: 40 Progress Note Anesthesia document: Postop Eval 1 completed: Yes
--- NOTE | 2024-12-19 13:55 | OP.CCLET_ITS ---
12/19/2024 Fede Whitaker Md Re : Upper GI endoscopy procedure for Lexis Hernandez Dear Julianne This procedure was performed on Thursday, December 19, 2024. My impressions and recommendations are as follows: Impressions : - Normal esophagus. - Rj-en-Y gastrojejunostomy with gastrojejunal anastomosis characterized by congestion and edema. Biopsied. - Normal examined jejunum. Recommendations : - Discharge patient to home. - Resume previous diet. - Continue present medications. - Await pathology results. My findings are described in the full procedure note, which is enclosed. If I can be of further assistance, please feel free to contact me at . Sincerely, Wilton Hunt, 12/19/2024 1:55:27 PM This report has been signed electronically.
--- NOTE | 2024-12-19 13:55 | OP.EGD_ITS ---
Patient Name: Lexis Hernandez Procedure Date: 12/19/2024 1:18 PM Date of : 1985 Age: 39 Procedure: Upper GI endoscopy Indications: Epigastric abdominal pain, Functional Dyspepsia, Dyspepsia, Indigestion, Failure to respond to medical treatment Providers: Wilton Hunt DO Referring MD: Fede Whitaker Md Medicines: Monitored Anesthesia Care Patient Profile: This is a 39 year old female. Refer to note in patient chart for documentation of history and physical. Patient has symptoms of chronic abdominal cramping, chronic right upper quadrant abdominal pain, chronic dyspepsia, chronic nausea and chronic throat burning. Complications: No immediate complications. Procedure: Pre-Anesthesia Assessment: - Prior to the procedure, a History and Physical was performed, and patient medications and allergies were reviewed. The patient is competent. The risks and benefits of the procedure and the sedation options and risks were discussed with the patient. All questions were answered and informed consent was obtained. Patient identification and proposed procedure were verified by the physician in the pre-procedure area. Mental Status Examination: alert and oriented. Airway Examination: normal oropharyngeal airway and neck mobility. Respiratory Examination: clear to auscultation. CV Examination: normal. Prophylactic Antibiotics: The patient does not require prophylactic antibiotics. Prior Anticoagulants: The patient has taken no anticoagulant or antiplatelet agents except for NSAID medication. ASA Grade Assessment: II - A patient with mild systemic disease. After reviewing the risks and benefits, the patient was deemed in satisfactory condition to undergo the procedure. The anesthesia plan was to use monitored anesthesia care (MAC). Immediately prior to administration of medications, the patient was re-assessed for adequacy to receive sedatives. The heart rate, respiratory rate, oxygen saturations, blood pressure, adequacy of pulmonary ventilation, and response to care were monitored throughout the procedure. The physical status of the patient was re-assessed after the procedure. After obtaining informed consent, the endoscope was passed under direct vision. Throughout the procedure, the patient's blood pressure, pulse, and oxygen saturations were monitored continuously. The Colonoscope was introduced through the mouth, and advanced to the second part of duodenum. The upper GI endoscopy was accomplished without difficulty. The patient tolerated the procedure well. Scope In: 1:23:25 PM Scope Out: 1:33:21 PM Total Procedure Duration Time 0 hours 9 minutes 56 seconds Findings: The examined esophagus was normal. Evidence of a Rj-en-Y gastrojejunostomy was found. The gastrojejunal anastomosis was characterized by congestion and edema. This was traversed. The hvkyf-mk-tvzgktm limb was characterized by edema. The jejunojejunal anastomosis was characterized by congestion and edema. The gjhumizi-cf-kdsxrns limb was examined 70 cm from the anastomosis and was characterized by healthy appearing mucosa. The excluded stomach was not examined as it could not be found. Biopsies were taken with a cold forceps for histology. Verification of patient identification for the specimen was done. Estimated blood loss was minimal. The examined jejunum was normal. Impression: - Normal esophagus. - Rj-en-Y gastrojejunostomy with gastrojejunal anastomosis characterized by congestion and edema. Biopsied. - Normal examined jejunum. Recommendation: - Discharge patient to home. - Resume previous diet. - Continue present medications. - Await pathology results. Procedure Code(s): --- Professional --- 41331, Esophagogastroduodenoscopy, flexible, transoral; with biopsy, single or multiple CPT copyright 2021 [employer]. All rights reserved. The codes documented in this report are preliminary and upon director of claims review may be revised to meet current compliance requirements. Wilton Hunt DO 12/19/2024 1:55:27 PM This report has been signed electronically. Number of Addenda: 0 Note Initiated On: 12/19/2024 1:18 PM
--- NOTE | 2024-12-19 13:59 | OP.CCLET_ITS ---
12/19/2024 Fede Whitaker Md Re : Colonoscopy procedure for Lexis Hernandez Dear Julianne This procedure was performed on Thursday, December 19, 2024. My impressions and recommendations are as follows: Impressions : - Preparation of the colon was poor. - One 7 mm polyp in the sigmoid colon, removed with a hot snare. Resected and retrieved. Recommendations : - Repeat colonoscopy at next available appointment (within 3 months) because the bowel preparation was suboptimal. - Continue present medications. My findings are described in the full procedure note, which is enclosed. If I can be of further assistance, please feel free to contact me at . Sincerely, Wilton Hunt, DO 12/19/2024 1:58:39 PM This report has been signed electronically.
--- NOTE | 2024-12-19 13:59 | OP.COLON_ITS ---
Patient Name: Leixs Hernandez Procedure Date: 12/19/2024 1:36 PM Date of : 1985 Age: 39 Procedure: Colonoscopy Indications: Abdominal pain in the left lower quadrant, Abdominal pain in the right lower quadrant, Abdominal pain in the right upper quadrant Providers: Wilton Hunt DO Referring MD: Fede Whitaker Md Medicines: Monitored Anesthesia Care Patient Profile: This is a 39 year old female. Refer to note in patient chart for documentation of history and physical. Patient has symptoms of chronic abdominal cramping, chronic right upper quadrant abdominal pain, chronic dyspepsia, chronic nausea and chronic throat burning. Last Colonoscopy: more than 10 years ago. Complications: No immediate complications. Procedure: Pre-Anesthesia Assessment: - Prior to the procedure, a History and Physical was performed, and patient medications and allergies were reviewed. The patient is competent. The risks and benefits of the procedure and the sedation options and risks were discussed with the patient. All questions were answered and informed consent was obtained. Patient identification and proposed procedure were verified by the physician in the pre-procedure area. Mental Status Examination: alert and oriented. Airway Examination: normal oropharyngeal airway and neck mobility. Respiratory Examination: clear to auscultation. CV Examination: normal. Prophylactic Antibiotics: The patient does not require prophylactic antibiotics. Prior Anticoagulants: The patient has taken no anticoagulant or antiplatelet agents except for NSAID medication. ASA Grade Assessment: II - A patient with mild systemic disease. After reviewing the risks and benefits, the patient was deemed in satisfactory condition to undergo the procedure. The anesthesia plan was to use monitored anesthesia care (MAC). Immediately prior to administration of medications, the patient was re-assessed for adequacy to receive sedatives. The heart rate, respiratory rate, oxygen saturations, blood pressure, adequacy of pulmonary ventilation, and response to care were monitored throughout the procedure. The physical status of the patient was re-assessed after the procedure. After I obtained informed consent, the scope was passed under direct vision. Throughout the procedure, the patient's blood pressure, pulse, and oxygen saturations were monitored continuously. The Colonoscope was introduced through the anus with the intention of advancing to the ileum. The scope was advanced to the hepatic flexure before the procedure was aborted. Medications were given. The colonoscopy was performed without difficulty. The patient tolerated the procedure well. The quality of the bowel preparation was poor. Scope In: 1:37:36 PM Scope Out: 1:42:31 PM Total Procedure Duration Time 0 hours 4 minutes 55 seconds Findings: The perianal and digital rectal examinations were normal. A 7 mm polyp was found in the sigmoid colon. The polyp was sessile. The polyp was removed with a hot snare. Resection and retrieval were complete. Verification of patient identification for the specimen was done. Estimated blood loss was minimal. Impression: - Preparation of the colon was poor. - One 7 mm polyp in the sigmoid colon, removed with a hot snare. Resected and retrieved. Recommendation: - Repeat colonoscopy at next available appointment (within 3 months) because the bowel preparation was suboptimal. - Continue present medications. Procedure Code(s): --- Professional --- 42680, 52, Colonoscopy, flexible; with removal of tumor(s), polyp(s), or other lesion(s) by snare technique CPT copyright 2021 [employer]. All rights reserved. The codes documented in this report are preliminary and upon death surveys coder review may be revised to meet current compliance requirements. Wilton Hunt DO 12/19/2024 1:58:39 PM This report has been signed electronically. Number of Addenda: 0 Note Initiated On: 12/19/2024 1:36 PM
--- NOTE | 2024-12-19 22:48 | POSTOPAN2_ITS ---
Anesthesia Postop Eval I Sum Postop Eval Completion status Anesthesia document: Postop Eval 1 completed: Yes Anesthesia Postop Eval I Summary Anesthesia Postop Eval I Summary: Anesthesia Postop Eval I: Assessment Summary Airway patent Yes 12/19/24 13:52 [email or web address] Spontaneous unlabored Yes 12/19/24 13:52 [email or web address] respirations Mental status nausea No 12/19/24 13:52 [email or web address] [email or web address] Vomiting No 12/19/24 13:52 [email or web address] Anesthesia Postop Eval I: Fluid Summary Crystalloid volume administer 40 12/19/24 13:52 [email or web address] (ml) Colloids volume administered ( ml) Blood Product volume administered (ml) Total IV fluid infused 40 12/19/24 13:52 [email or web address] Anesthesia Postop Eval I: Summary Notes Anesthesia Complication No 12/19/24 13:52 [email or web address] Anesthesia Complication Comment: Post-operative progress note Anesthesia: Postop Eval II Evaluation Mental status: Awake and Calm Pain Level: 0 nausea: No Vomiting: No Complications Anesthesia Complication: No
--- NOTE | 2024-12-19 22:48 | PCM.POSTANE2 ---
Anesthesia Postop Eval I Sum Postop Eval Completion status Anesthesia document: Postop Eval 1 completed: Yes Anesthesia Postop Eval I Summary Anesthesia Postop Eval I Summary: Anesthesia Postop Eval I: Assessment Summary Airway patent Yes 12/19/24 13:52 [email or web address] [email or web address] Spontaneous unlabored Yes 12/19/24 13:52 [email or web address] [email or web address] respirations Mental status nausea No 12/19/24 13:52 [email or web address] [email or web address] Vomiting No 12/19/24 13:52 [email or web address] [email or web address] Anesthesia Postop Eval I: Fluid Summary Crystalloid volume administer 40 12/19/24 13:52 [email or web address] [email or web address] (ml) Colloids volume administered ( ml) Blood Product volume administered (ml) Total IV fluid infused 40 12/19/24 13:52 [email or web address] [email or web address] Anesthesia Postop Eval I: Summary Notes Anesthesia Complication No 12/19/24 13:52 [email or web address] Anesthesia Complication Comment: Post-operative progress note Anesthesia: Postop Eval II Evaluation Mental status: Awake and Calm Pain Level: 0 nausea: No Vomiting: No Complications Anesthesia Complication: No
== END 2024-12-19 14:24 | disposition home or self-care (01) ==
LOC: EN 12:25 → AC 12:27
PROVIDERS: PCP Family Medicine; Referring Provider Family Medicine; Visit Provider Internal Medicine Gastroenterology
PROC: 0DJD8ZZ Inspection of Lower Intestinal Tract, Via Natural or Artificial Opening Endoscopic (ICD-10-PCS; CPT 45378; principal; 2024-12-19 13:25)
DX: D12.5 Benign neoplasm of sigmoid colon (principal); K21.9 Gastro-esophageal reflux disease without esophagitis; Z90.49 Acquired absence of other specified parts of digestive tract; K59.00 Constipation, unspecified; I10 Essential (primary) hypertension; Z98.84 Bariatric surgery status; Z79.85 Long-term (current) use of injectable non-insulin antidiabetic drugs; Z79.899 Other long term (current) drug therapy
CPT/HCPCS: 45385; 43239; 88305; A4216

== ENCOUNTER → 2025-01-01 | Outpatient (CLI) | payer MEDICARE, SELFPAY ==
--- NOTE | 2025-01-01 09:40 | RAD_ITS ---
EXAM: UPPER GI W/BA SWALLOW CLINICAL HISTORY: History of prior gastric bypass surgery. Gastroesophageal reflux. COMPARISON: None. TECHNIQUE: The patient ingested barium. Multiple images of the esophagus and remainder of the stomach was obtained. FINDINGS: The patient is status post gastric bypass surgery with small gastric remnant. There is evidence of gastroesophageal reflux. There is dilatation of the efferent loop distal to the gastric remnant. Early obstruction should be ruled out. RAD/Upper GI w/BA Swallow IMPRESSION: Status post gastric bypass surgery with findings suggestive of dilatation of th e small bowel loops distal to the anastomosis. Early obstruction should be ruled out. Clinical correlation recommended. Gastroesophageal reflux. Reading Location: [facility]
== END | disposition home or self-care (01) ==
LOC: RAD 09:17
PROVIDERS: PCP Family Medicine; Referring Provider Internal Medicine Gastroenterology; Visit Provider Internal Medicine Gastroenterology
DX: K21.9 Gastro-esophageal reflux disease without esophagitis (principal)
CPT/HCPCS: 74246

== ENCOUNTER → 2025-01-04 | Outpatient (CLI) | payer MEDICARE, SELFPAY ==
--- NOTE | 2025-01-04 13:02 | CT_ITS ---
EXAM: CT Abdomen and Pelvis With Intravenous Contrast CLINICAL INDICATION: TECHNIQUE: Axial computed tomography images of the abdomen and pelvis with intravenous contrast. This CT exam was performed using one or more of the following dose reduction techniques: automated exposure control, adjustment of the mA and/or kV according to patient size, and/or use of iterative reconstruction technique. COMPARISON: No relevant prior studies available. FINDINGS: LUNG BASES: Unremarkable. No mass. No consolidation. ABDOMEN: LIVER: Hepatomegaly with fatty infiltration. GALLBLADDER AND BILE DUCTS: Gallbladder is surgically absent. No ductal dilation. PANCREAS: Unremarkable. No mass. No ductal dilation. SPLEEN: Unremarkable. No splenomegaly. ADRENALS: Unremarkable. No mass. KIDNEYS AND URETERS: Unremarkable. No stones within either kidney. No hydronephrosis. STOMACH AND BOWEL: Evidence of prior gastric surgery. Fecal retention in the colon consistent with constipation. No obstruction. No mucosal thickening. PELVIS: APPENDIX: No findings to suggest acute appendicitis. BLADDER: Bladder wall thickening which may be due to the decompressed state of the bladder or due to cystitis. REPRODUCTIVE: Unremarkable as visualized. ABDOMEN and PELVIS: INTRAPERITONEAL SPACE: See below. BONES/JOINTS: No acute fracture. No dislocation. SOFT TISSUES: Metallic foreign bodies with artifacts in the right hemipelvis. VASCULATURE: Unremarkable. No abdominal aortic aneurysm. LYMPH NODES: Unremarkable. No enlarged lymph nodes. CT/Abdomen/Pelvis WITH Contrast IMPRESSION: 1. Bladder wall thickening which may be due to the decompressed state of the b ladder or due to cystitis. 2. Hepatomegaly with fatty infiltration. 3. Fecal retention in the colon consistent with constipation. 4. No obstructive uropathy. 5. Metallic foreign bodies with artifacts in the right hemipelvis. Clinical c orrelation is recommended. Reading Location: [facility]
== END | disposition home or self-care (01) ==
LOC: CT 13:02
PROVIDERS: PCP Family Medicine; Referring Provider Student in an Organized Health Care Education/Training Program; Visit Provider Student in an Organized Health Care Education/Training Program
DX: R10.9 Unspecified abdominal pain (principal)
CPT/HCPCS: 74177; Q9967

== ENCOUNTER → 2025-02-06 | Outpatient (CLI) | payer MEDICARE, SELFPAY ==
[2025-02-06 18:21] LABS: Hematocrit 43.8 % (37-47); Hemoglobin 14.4 g/dL (12.0-15.0); Mean Corp Hgb Conc 32.9 g/dL (32-36); Mean Corpuscular Hgb 31.2 pg (27.0-32.0); Mean Corpuscular Volume 94.8 fL (81-99); Mean Platelet Vol. 10.6 fl (6.2-12.0); Platelet Count 228 K/mm3 (150-450); RBC Distribution Width CV 13.1 % (11.6-14.6); RBC Distribution Width SD 45.6 fl (35.1-43.9); Red Blood Count 4.62 M/mm3 (4.2-5.4); White Blood Count 9.5 K/mm3 (4.4-11.0)
[2025-02-06 19:02] LABS: Anion Gap 11 (5-15); BUN 9 mg/dL (4-19); BUN/Creat Ratio 12.5 RATIO (10-20); Calcium,Total 8.7 mg/dL (7.6-11.0); Carbon Dioxide 21.2 mmol/L (21.0-32.0); Chloride 104 mmol/L (98-108); Creatinine, Serum 0.73 mg/dL (0.70-1.20); EST Glomerular Filtration Rate 107 (>60); Glucose 85 mg/dL (70-99); Potassium 3.8 mmol/L (3.3-5.1); Sodium Level 136 mmol/L (133-145)
[2025-02-06 19:17] LABS: Internal QC Validated? YES +Cl - CLEAR BKGD; Pregnancy, Serum, hCG Quali. NEGATIVE Negative
== END | disposition home or self-care (01) ==
LOC: MTLAB 16:45
PROVIDERS: PCP Family Medicine; Referring Provider Family Medicine; Visit Provider Family Medicine
DX: Z01.812 Encounter for preprocedural laboratory examination (principal); I10 Essential (primary) hypertension
CPT/HCPCS: 36415; 80048; 84703; 85027

== ENCOUNTER → 2025-02-08 | Outpatient (CLI) | payer MEDICARE, SELFPAY ==
--- NOTE | 2025-02-08 17:24 | PCM.TILTTABL ---
Staff Staff: Glendy Meza and Kaelyn Stovall Summary Pre Test Resting HR: 90 Pre Test Resting BP: 126/97 Minimum Test HR: 84 Maximum Test HR: 92 Minimum Test BP: 113/96 Maximum Test BP: 132/87 Reason for Test Termination: Reached Maximum Test Time Physician Tilt Table Report Patient's Physicians Primary Care Physician: Fede Whitaker Indications/Diagnosis: Syncope Procedure Comments: The patient was brought to the noninvasive lab in the postabsorptive nonsedated state. Informed consent was obtained. Initial heart rate was noted to be 86 bpm with a blood pressure of 115/79 mmHg in sinus rhythm. Patient was then put in the 70 degree head upright tilt position. Continuous EKG monitoring heart rate and blood pressure monitoring was obtained. Patient complained of mild episodes of blurred vision. She also got mildly diaphoretic and slightly lightheaded but blood pressure and heart rate remained stable throughout. Patient was kept in this position for approximately 30 minutes. No other symptomatology was noted. Summary: Negative head upright tilt table test.
[2025-02-08 17:30] VITALS: BP 113/96; BP 126/97; BP 132/87
== END | disposition home or self-care (01) ==
LOC: CVS 08:46
PROVIDERS: PCP Family Medicine; Referring Provider Family Medicine; Visit Provider Family Medicine
DX: R55 Syncope and collapse (principal)
CPT/HCPCS: 93660; A4216

== ENCOUNTER 2025-07-04 12:24 | Emergency (ER) | payer MEDICARE, SELFPAY ==
[2025-07-04 12:26] VITALS: BP 137/100; PULSE 112; RESP 18; TEMP 36.3; O2SAT 98; BMI 39.4
--- NOTE | 2025-07-04 13:07 | ED.VIS.BACK ---
HPI History of Present Illness Chief Complaint: Back [facility] Medical History Wears glasses Wears partial dentures Marijuana use Arthritis Back pain Migraine headache Intracranial hypertension Gastric reflux Non-smoker History of pain when walking Hypertension History of broken collarbone Seizure Ovarian cyst Depression Anxiety Home Medications ?Medication ?Instructions ?Recorded ?Last Taken ?Type aripiprazole 5 mg tablet 10 mg PO QHS 07/05/22 Unknown History lorazepam 0.5 mg tablet 0.5 mg PO DAILY PRN PRN Anxiety 07/05/22 Unknown History tramadol 50 mg tablet 50 mg PO PRN PRN Pain 07/05/22 Unknown History dicyclomine 10 mg capsule 20 mg (2 x 10 mg) PO TID PRN 09/12/24 Unknown Rx abdominal pain #20 CAPSULES WEYGOVY 20 u subcut RODRÍGUEZ 12/15/24 12/03/24 History duloxetine 60 mg capsule,delayed 60 mg PO BID 12/15/24 12/19/24 History release lacosamide 200 mg tablet 200 mg PO BID 12/15/24 12/19/24 History metformin 500 mg tablet 500 mg PO QDAY 01/04/25 Unknown History omeprazole 40 mg capsule,delayed 40 mg PO BID #90 caps 01/04/25 Unknown Rx release Allergy/AdvReac Type Severity Reaction Status Date / Time nortriptyline Allergy Intermediate TREMORS Verified 07/04/25 12:28 pepper (genus Capsicum) Allergy Mild Rash Verified 07/04/25 12:28 Penicillins Allergy Rash Verified 07/04/25 12:28 gabapentin AdvReac TREMORS Verified 07/04/25 12:28 NSAIDS (Non-Steroidal AdvReac GASTRIC Verified 07/04/25 12:28 Anti-Inflamma BYPASS Surgical History Hx of colonoscopy Hx of tonsillectomy Hx of gastric bypass S/P MISDRAW HAND shunt History of appendectomy History of cholecystectomy H/O: hysterectomy Social History Smoking Status: Never smoker EXAM Physical Exam Const Vital Signs: 07/04/25 12:26 Temperature 97.4 F L Temperature Source Temporal Pulse Rate 112 H Respiratory Rate 18 Blood Pressure 137/100 H Blood Pressure Mean 112 Pulse Ox 98 Oxygen Delivery Method Room Air [facility] Narrative Medical decision making narrative: HISTORY OF PRESENT ILLNESS: Chief complaint: Back pain 40 year-old female history of back pain, migraines, hypertension, presents with acute on chronic back pain. Notes no falls or trauma. No trouble urinating. No history of kidney stones. No flank pain. Patient states she was seen by her pain management physician yesterday. States pain management physician prescribed her tramadol and then told her to come to the ED for further pain control. Patient notes she presented to an outside ER this morning and received Valium and Dilaudid. She then proceeded to leave this emergency department because did not have MRI available. She notes her pain manage physician ordered MRI to be obtained on Wednesday. Patient denies any saddle anesthesia, urinary retention, bowel or bladder incontinence, lower extremity weakness, fever or IV drug use, no recent spinal manipulation or surgery, no recent urinary catheterization. REVIEW OF SYSTEMS: Pertinent positives: Back pain Pertinent negatives: As per HPI PHYSICAL EXAM: Nursing triage notes reviewed, Vital signs reviewed Constitutional: please see [facility] HENT: MMM Eyes: Pupils equal round and reactive to light, Extraocular muscles intact Neck: No stridor, no JVD, full neck ROM Lungs: Clear to auscultation, No wheezing or rales. No increased work of breathing, no conversational dyspnea, no accessory muscle use, no nasal flaring. No respiratory distress noted Heart: Regular rate and rhythm, No murmurs, No rubs and No gallops, 2+ distal pulses (radial, femoral, posterior tibial) in all extremities Abdomen: Soft, there is no tenderness, rigidity, rebound or guarding, no obvious peritoneal signs, no palpable pulsatile abdominal masses, no auscultated abdominal bruit : No CVAT Extremities: No edema back: Neuro: Intact sensation L1-S1 dermatomal distributions. Intact 5/5 strength in hip flexion (T12-L3). Knee extension (L2-L4). Ankle dorsiflexion (L4-L5). Ankle plantar flexion (S1). Great toe extension (L5). 2+ patellar and Achilles DTRs. Skin: No rash or lesions noted MEDICAL DECISION MAKING: Chief Complaint: please see [facility] External records reviewed: Reviewed clinisync: No records from today that go along with the patient's history of being seen just prior to arrival. Factors affecting care: Chronic back pain Social determinants of health: Denies IV drug use History obtained from others: none Consults: none MDM Narrative: The patient was initially tachycardic with a heart rate of 112 otherwise afebrile and nontoxic-appearing. Exam without obvious hypoxia deformities. TTP left lateral lumbar musculature. I considered the following differential diagnosis: Acute on chronic back pain, muscles cardiology, nephrolithiasis, pyelonephritis, epidural abscess or other space-occupying lesion of the spine The patient's history and physical exam was not consistent with nephrolithiasis, pyelonephritis, epidural abscess, space-occupying lesion of the spine. It was most consistent with acute on chronic back pain. Given the patient was already prescribed narcotics I offered to prescribe steroids, lidocaine patches, muscle relaxers. When I told the patient I was unable to prescribe her any more narcotics other than what her pain manage physician had already prescribed she became irate. Her significant other started yelling and then they stormed out of the emergency department without finishing their workup, receiving any medications or discharge instructions. The patient and/or family, caregivers express understanding. The patient and/or family, caregivers agrees with the plan. Shared decision making: I will have a discussion with the patient and or visitors regarding risk/benefits of further testing or admission. They will be made aware of of the risk/benefits inherent in this decision they will be given the opportunity to voice understanding. Total critical care time today provided was at least 0 minutes. This excludes separately billable procedures. Critical care time (if documented) is secondary to the patient having high probability of clinically significant/life threatening deterioration in the patient's condition which required my urgent intervention. Impression: 1. Acute on chronic back pain 2. Status post [id number] gastric bypass Dispo: Eloped from the emergency department This note was generated with [employer] dictation software. It may contain incorrect words, spelling, and punctuation that were not noted in review of the chart prior to signing. Discharge Plan Triage Chief Complaint: Back ED Provider: Uziel Mina Dx/Rx/DC Orders Prescriptions: No Action omeprazole 40 mg capsule,delayed release(DR/EC) 40 mg PO BID Qty: 90 2RF metformin 500 mg tablet 500 mg PO QDAY tramadol 50 mg tablet 50 mg PO PRN PRN (Reason: Pain) Patient Comments: TAKE 1 TABLET BY MOUTH TWICE DAILY NEEDED . 60 TABLETS PER 30 DAYS lorazepam 0.5 mg tablet 0.5 mg PO DAILY PRN PRN (Reason: Anxiety) Patient Comments: TAKE 1 TABLET BY MOUTH ONCE DAILY aripiprazole 5 mg tablet 10 mg PO QHS Patient Comments: TAKE 1 TABLET BY MOUTH NIGHTLY dicyclomine 10 mg capsule 20 mg PO TID PRN (Reason: abdominal pain) Qty: 20 0RF lacosamide 200 mg tablet 200 mg PO BID duloxetine 60 mg capsule,delayed release(DR/EC) 60 mg PO BID WEYGOVY auto-injector 20 u subcut RODRÍGUEZ Primary Care Provider: Fede Whitaker Referrals: Fede Whitaker MD [Primary Care Provider] - Print Language: Scottish Disposition Disposition: Elopement Discharge Date/Time: 07/04/25 14:02
--- NOTE | 2025-07-04 14:01 | ED.RN ---
Pt not in room, presumed elopement.
--- OUTSIDE RECORDS SUMMARY | 2025-07-04 20:09 | XMS RPT_ITS | CCD ---
Author Organization [facility] Care Team Providers Care Transmissions Systems Operator Name Role Phone Unavailable Primary Care Provider Unavailabl Yan Guy DO Primary Care Provider NÉSTOR BELL Referring Unavaila ALIYAH Bruce Attending Unavailable YAN JASSO Primary Care Unavailabl e SYSTEM, PROVIDER NOT IN Admitting Unavaila ble PHYSICIAN, NONE Primary Care Physician Unavailab le Unavailable Primary Care Provider Unavailabl e Anibal Thompson DO Unavailable Unavailabl Kenyon Guy Primary Care Provider Unavaila ble PHYSICIAN, NONE Primary Care Unavailable ELIZABETH CONKLIN Attending Unavailable DAYNE SANCHEZ, TITI Consulting Unavailabl DR RYLEY Lazcano MD Consulting Unavailable ELIZABETH CONKLIN Attending Unavailable PHYSICIAN, NONE Primary Care Unavailable PHYSICIAN, NONE Primary Care Unavailable RITA ZELAYA MD Consulting Unavailable KY COLLIER Attending Unavailable YAN JASSO DO Primary Care Unavailable ANAY STRICKLAND MD Attending Unavailable CHRIS JUAREZ MD Attending Unavailable PHYSICIAN, NONE Primary Care Unavailable YAN JASSO DO Primary Care Unavailable VIVEK RICHARD MD Attending Unavailable PHYSICIAN, NONE Primary Care Unavailable JAZMINE PARRA MD Consulting Unavailable JAZMINE PARRA MD Attending Unavailable ELAINA SHAH MD Consulting Unavailable DYANE SANCHEZ, TITI Consulting Unavailabl NEREYDA Lu Attending Unavailable PHYSICIAN, NONE Primary Care Unavailable ANIBAL THOMPSON DO Attending Unavailable PHYSICIAN, NONE Primary Care Unavailable Yan Jasso DO Primary Care Provider [phone] YAN JASSO Primary Care Unavailable Anibal Thompson DO Unavailable UnavailYan Gardner DO Primary Care Provider Yan Jasso DO Primary Care Provider Susan MD, Chalon Primary Care Provider YAN JASSO SHIRLEY Primary Care Unavailabl e VAUGHN, YAN SHIRLEY Primary Care Unavailabl e VAUGHN, YAN SHIRLEY Primary Care Unavailabl e NICCI SWEET Attending Unavailable AL CHANDRA Attending Unavailable VAUGHN, YAN SHIRLEY Primary Care Unavailabl e SUSAN, CHALON Primary Care Unavailable Anibal Thompson DO Cornell Unavailable SUSAN, CHALON Primary Care Unavailable SARAH GIORDANO Referring Unavailable SUSAN, CHALON Primary Care Unavailable JANICE ARROYO Admitting Unavailable JANIEC ARROYO Attending Unavailable SUSAN, CHALON Primary Care Unavailable JANICE ARROYO Admitting Unavailable JANICE ARROYO Attending Unavailable SUSAN, CHALON Primary Care Unavailable CRUZ, JANICE Admitting Unavailable JANICE ARROYO Attending Unavailable SUSAN, CHALON Primary Care Unavailable Jayjennifer SANCHEZ, Anibal Cornell Unavailable Fede Davis MD Primary Care Provider Marco Antonio Soto MD Unavailable Fede Davis MD Primary Care Provider Fede Davis MD Referring Provider Julian Cerda Attending Provider Gilbert SANCHEZ, Dr. Núñez Attending Provider Gilbert SANCHEZ, Dr. Núñez Other Provider Gilbert SANCHEZ, Dr. Núñez Referring Provider Julian Cerda Referring Provider Feed Davis MD Attending Provider Fede Davis MD Other Provider Kimi MURRAY, Dr. Calderon Attending Provider Fede Davis MD Primary Care Provider Fede Davis MD Referring Provider Julian Cerda Attending Provider Fede Davis MD Primary Care Provider Fede Davis Attending Unavailable Susan, Chalon Referring Unavailable Susan, Chalon Primary Care Unavailable Susan, Chalon Attending Unavailable Susan, Chalon Primary Care Unavailable Susan, Chalon Referring Unavailable Friend, Wilton Attending Unavailable Susan, Chalon Primary Care Unavailable Susan, Chalon Primary Care Unavailable Susan, Chalon Referring Unavailable Susan, Chalon Attending Unavailable Rosa Ortega Attending Unavailable Susan, Chalon Primary Care Unavailable Susan, Chalon Referring Unavailable Susan, Chalon Consulting Unavailable Susan, Chalon Primary Care Unavailable Susan, Chalon Referring Unavailable Kvng Bolden Attending Unavailable Susan, Chalon Primary Care Unavailable Susan, Chalon Referring Unavailable Friend, Wilton Attending Unavailable Friend, Wilton Consulting Unavailable Susan, Chalon Primary Care Unavailable Susan, Chalon Referring Unavailable Julian Leahy Attending Unavailable Susan, Chalon Primary Care Unavailable Friend, Wilton Referring Unavailable Friend, Wilton Attending Unavailable Susan, Chalon Primary Care Unavailable AtaJulian ragland Referring Unavailable AtanasJulian claros Attending Unavailable Susan, Chalon Attending Unavailable Susan, Chalon Referring Unavailable Susan, Chalon Primary Care Unavailable Susan, Chalon Primary Care Unavailable Dong Hardwick Attending Unavailable Susan, Chalon Primary Care Unavailable Farideh Dseouza Attending Unavailable Susan, Chalon Primary Care Unavailable Susan, Chalon Referring Unavailable AtaJulian ragland Attending Unavailable Susan, Chalon Primary Care Unavailable Susan, Chalon Referring Unavailable Friend, Wilton Attending Unavailable SUSAN, CHALON Primary Care Unavailable DANIA, ROBIN Admitting Unavailable DANIA ROBIN Attending Unavailable SUSAN, CHALON Primary Care Unavailable SUSAN, CHALON Primary Care Unavailable BABS BOBO MD Admitting Unavailable BABS BOBO MD Attending Unavailable STOCK, ROSIE E Admitting Unavailable STOCK, ROSIE E Attending Unavailable SUSAN, CHALON Primary Care Unavailable KARAKASISCELIA Admitting Unavail able KARAKASISCELIA Attending Unavail able SUSAN, CHALON Primary Care Unavailable SUSAN, CHALON Primary Care Unavailable STEFANO CHACON Attending Unavailable CHACON, STEFANO Referring Unavailable CHACONSTEFANO Attending Unavailable SUSAN, CHALON Primary Care Unavailable JANICE ARROYO Referring Unavailable SUSAN, CHALON Primary Care Unavailable JANICE ARROYO Referring Unavailable SUSAN, CHALON Primary Care Unavailable JANICE ARROYO Referring Unavailable SUSAN, CHALON Primary Care Unavailable SUSAN, CHALON Primary Care Unavailable SUSAN, CHALON Primary Care Unavailable SUSAN, CHALON Primary Care Unavailable MOFCRUZ, DARLEEN Attending Unavailable SUSAN, CHALON Primary Care Unavailable SERAFIN HARLEY Attending Unavailable SUSAN, CHALON Primary Care Unavailable RANDALL ROY JR Attending Unavailable SUSAN, CHALON Primary Care Unavailable ALECERT, SANTOSH Admitting Unavailable MELLERT, SANTOSH Attending Unavailable BRITTANY, MARCO ANTONIO Admitting Unavailable BRITTANY, MARCO ANTONIO Attending Unavailable SUSAN, CHALON Primary Care Unavailable BRIDLE, VEENA Attending Unavailable BRIDLE, VEENA Referring Unavailable SUSAN, CHALON Primary Care Unavailable SARI NEW Attending Unavailab le FLAVIOTABLAS, DARLEEN Referring Unavailable SUSAN, CHALON Primary Care Unavailable BRIDLE, VEENA Attending Unavailable ATANASJULIAN CLAROS Referring Unavailable SUSAN, CHALON Primary Care Unavailable BRIDLE, VEENA Attending Unavailable SUSAN, CHALON Primary Care Unavailable SUSAN, CHALON Primary Care Unavailable AL MURILLO Admitting Unavailable AL MURILLO Attending Unavailable SUSAN, CHALON Primary Care Unavailable DEDRA TODD Attending Unavailable SUSAN, CHALON Primary Care Unavailable BRITTANY, MARCO ANTONIO Attending Unavailable BRITTANY, MARCO ANTONIO Admitting Unavailable Susan Ruma MURRAY Primary Care Provider Dr. Uziel Mina DO Emergency Provider Allergies Allergy Classification Reported Allergen(s) Allergy Type Date of Onset Reaction(s) Facility Anti-Epileptic Agents (1 source) gabapentin Drug Allergy 05-13-20 Mental Status Change, Other: See Comments [facility] Penicillins (antibiotic) (1 source) Penicillins Drug Allergy 02-26-19 85 Hives, Rash [facility] (20 sources) gabapentin; Translations: [GABAPENTIN] Drug Allergy 05-13-20 22 Other (See Comments), Mental Status Change, Other: See Comments, Unknown [facility] (20 sources) Non-steroidal anti-inflammatory agent; Translations: [NSAIDS (NON-STEROIDAL ANTI-INFLAMMATORY DRUG)] Propensity to adverse reactions to drug 09-02-20 15 GI Bleeding, Contraindicati on-Medical Surgical, GI Upset [facility] (20 sources) Penicillins; Translations: [PENICILLINS] Propensity to adverse reactions to drug 02-26-19 85 Rash, Hives [facility] (20 sources) Green Pepper; Translations: [GREEN PEPPER] Propensity to adverse reactions to drug 10-12-20 19 [facility] (20 sources) Non-steroidal anti-inflammatory agent; Translations: [NSAIDs] Drug allergy 09-21-20 Ulcers/Lesions [facility] Comment on above: states oral nsaids, gastric bypass (2 sources) Penicillin; Translations: [penicillin] Drug Allergy Eruption of skin (disorder) [facility] (20 sources) Cavanaugh Pepper; Translations: [CAVANAUGH PEPPER] Drug Allergy 10-12-20 19 Rash [facility] (20 sources) Nortriptyline; Translations: [NORTRIPTYLINE] Drug Allergy 08-15-20 Other: See Comments [facility] (10 sources) Norepinephrine Drug Allergy 02-12-20 Other [facility] (20 sources) Penicillins Drug Allergy 01-23-20 15 [facility] (20 sources) Other Propensity to adverse reactions 09-21-20 [facility] (3 sources) Nonsteroidal Anti-inflammatory Compounds Propensity to adverse reactions 12-19-19 GASTRIC BYPASS [facility] (3 sources) Penicillins Allergy to substance 12-19-19 25 [facility] (3 sources) pepper (genus Capsicum) Allergy to substance 12-19-19 25 [facility] (1 source) gabapentin Drug Allergy 12-19-19 25 [facility] (1 source) Nortriptyline Drug Allergy 12-19-19 25 [facility] (1 source) NSAIDs Drug allergy (disorder) 12-19-19 25 [facility] (1 source) Penicillins Drug allergy (disorder) 12-19-19 25 [facility] (1 source) pepper (genus Capsicum) Drug allergy (disorder) 12-19-19 25 [facility] (3 sources) Penicillins Drug Allergy 02-26-19 85 Hives, [facility] Medications Current Medications Medication Drug Class(es) Dates Sig (Normalized) Sig (Original) aspirin 325 mg oral tablet (17 sources) Platelet Aggregation Inhibitor, Nonsteroidal Anti-inflammatory Drug Start: 03-04-2023 End: 04-04-2023 take 2 tablets by mouth once daily, then take 1 tablet by mouth once daily aspirin 325 mg tablet Take 2 tablets by mouth once daily for 1 day, THEN 1 tablet once daily. 32 tablet 0 03/04/2023 04/04/2023 Active Start: 01-28-2023 End: 03-04-2023 take 1 tablet by mouth once daily aspirin, enteric coated (ASPIRIN EC) 81 mg EC tablet Indications: IIH (idiopathic intracranial hypertension) Take 1 tablet by mouth once daily. 90 tablet 1 01/28/2023 03/04/2023 Discontinued (Course of therapy completed) Comment on above: Take 1 tablet by jensen once daily. Take 2 tablets by mo [facility] once daily for 1 day, THEN 1 tablet once daily. benoxinate hydrochloride 4 mg/ml / fluorescein sodium 3 mg/ml ophthalmic solution (11 sources) Diagnostic Dye Start: 10-02-2024 End: 10-14-2024 fluorescein-benoxi breanna 0.3-0.4 % 1 Drop (FLURESS) Start: 05-01-2024 End: 05-13-2024 fluorescein-benoxinate 0.3-0 .4 % 1 Drop (FLURESS) Start: 01-03-2024 End: 01-15-2024 fluorescein-benoxinate 0.3-0 .4 % 1 Drop (FLURESS) Start: 06-27-2023 End: 07-08-2023 fluorescein-benoxinate 0.25- 0.4 % 1 Drop (FLURESS) Start: 03-21-2023 End: 04-01-2023 fluorescein-benoxinate 0.25- 0.4 % 1 Drop (FLURESS) Start: 12-21-2022 End: 01-01-2023 fluorescein-benoxinate 0.25- 0.4 % 1 Drop (FLURESS) calcium citrate 1040 mg oral tablet (20 sources) take 1 tablet by jensen th once daily calcium citrate 250 MG tablet Take 1 tablet by mouth daily. Active End: 06-05-2025 calcium citrate 1040 MG tabl et Take by mouth 3 times a day. 06/05/2025 Discontinued Calcium Citrate 250 mg calcium tab Take by mouth. 0 Active Comment on above: Take by mouth. Take 1 tablet by jensen once daily. cholecalciferol 0.125 mg oral capsule (20 sources) Vitamin D take 1 capsule by mouth once daily cholecalciferol (Vitamin D-3) 125 MCG (5000 UT) capsule Take 5,000 Units by mouth daily. Active End: 06-05-2025 take 1 tablet by mouth in the morning cholecalciferol (Vitamin D-3) 25 MCG (1000 UT) tablet Take 1,000 Units by mouth in the morning. 06/05/2025 Discontinued take 1 tablet by jensen th once daily cholecalciferol, vitamin D3, 1,000 unit tablet Take 1 (one) tablet (1,000 Units total) by mouth daily . 0 Active Comment on above: Take 1,000 Units by mouth. Citracal Maximum + D 315 mg-6.25 mcg (250 intl units) oral tablet (1 source) Start: take 1 tablet by mouth twice daily Citracal Maximum + D 315 mg-6.25 mcg (250 intl units) oral tablet Dose = 1 tab(s), Oral, BID, # 120 tab(s), 0 Refill(s) Start Date: 10/26/22 Status: Ordered cyclobenzaprine hydrochloride 10 mg oral tablet (2 sources) Muscle Relaxant Start: End: take 1 tablet by mouth every eight hours as needed cyclobenzaprine (FLEXERIL) 10 mg tablet Take 1 tablet by mouth every 8 hours as needed for up to 5 days. 10 tablet 0 10/10/2023 10/15/2023 Active Comment on above: Take 1 tablet by jensen th every 8 hours as needed for up to 5 days. iv contrast (will be provided with radiology test) (1 source) Start: End: iv contrast (will be provided with radiology test) Indications: Other localized visual field defect, bilateral , IIH (idiopathic intracranial hypertension) MRV Brain Inject, intravenously, once for 1 dose. No IV access, insert saline lock prior to the beginning of sedation, infusion, injection of imaging exam. Discontinue saline lock post exam. If Pt. has a central line or IVAD, may access for administration according to line specific nursing protocol. Once exam is complete flush line and de-access according to line specific nursing protocol in the MR contrast administration guidelines link. 1 Each 0 12/22/2022 12/23/2022 Active Comment on above: MRV Brain Inject, in travenously, once for 1 dose. No IV access, insert saline lock prior to the beginning of sedation, infusion, injection of imaging exam. Discontinue saline lock post exam. If Pt. has a central line or IVAD, may access for administration according to line specific nursing protocol. Once exam is complete flush line and de-access according to line specific nursing protocol in the MR contrast administration guidelines link. lacosamide 200 mg oral tablet (20 sources) Anti-epileptic Agent Start: End: take 1 tablet by mouth twice daily 200 mg, Oral, 2 times daily, First dose on Wed05/21/25 at 0015, Swallow tablets whole; do not divide., Indications: Tonic Clonic Epilepsy Start: 12-31-2022 End: 06-23-2025 take 1 tablet by mouth twice daily lacosamide (Vimpat) 200 MG tablet tablet Take 200 mg by mouth 2 times daily. 05/24/2025 Active Start: 10-26-2022 lacosamide 200 mg oral tablet Dose : 200 mg = 1 tab(s), Oral, BID, # 60 tab(s), 0 Refill(s), 115.3 Start Date: 10/26/22 Status: Ordered Start: 04-13-2022 End: 12-15-2024 take 150 mg by mouth twice daily Vimpat Discontinued 150 mg SL/PO TWICE A DAY July 05, 2022 12:00am December 15, 2024 11:42am Start: 04-13-2022 End: 06-05-2025 lacosamide (Vimpat) 150 mg t ablet tablet Indications: Tonic Clonic Epilepsy Take 200 mg by mouth 2 times daily. 04/13/2022 06/05/2025 Discontinued End: 03-12-2023 LACOSAMIDE ORAL Take by mout h. 03/12/2023 Discontinued LACOSAMIDE ORAL Take by mouth. 0 Active Comment on above: Take by mouth. Take 1 tablet by jensen th twice daily. 10 ml lidocaine hydrochloride 10 mg/ml injection (20 sources) Antiarrhythmic, Amide Local Anesthetic Start: 01-28-2024 lidocaine, PF, (XYLOCAINE) 10 mg/mL (1 %) soln injection 1-10 mL by INTRADERMAL route as needed. For use during PICC/Midline Insertion ONLY. 10 mL 01/28/2024 Active Start: 04-01-2023 lidocaine, PF, (XYLOCAINE) 10 mg/mL (1 %) soln injection 1-10 mL by INTRADERMAL route as needed. For use during PICC/Midline Insertion ONLY. 10 mL 0 05/05/2023 Active Comment on above: 1-10 mL by INTRADERM AL route as needed. For use during PICC/Midline Insertion ONLY. medical marijuana (1 source) Start: 10-26-20 medical marijuana medical marijuana, 0 Refill(s), 115.3 Start Date: 10/26/22 Status: Ordered metFORMIN hydrochloride 500 mg oral tablet (20 sources) Biguanide Start: 12-30-19 End: 06-08-20 take 1 tablet by mouth once daily Metformin 500 mg tablet Active 500 mg PO daily January 04, 2025 1:00am Multiple Vitamin (MULTIVITAMIN ADULT PO) (6 sources) take 2 tablets by mouth once daily Multiple Vitamin (MULTIVITAMIN ADULT PO) Take 2 tablets by mouth daily. Active Multivitamin preparation (2 sources) Start: 09-17-20 take 1 tablet by mouth once daily in the morning Multivitamin Dose = 1 tab(s), Oral, qAM, 0 Refill(s) Start Date: 09/17/22 Status: Ordered nortriptyline 75 mg oral capsule (20 sources) Tricyclic Antidepressant Start: 11-30-19 End: 10-04-20 nortriptyline (PAMELOR) 75 mg capsule Take 25 mg by mouth once daily. 11/30/2022 10/04/2024 Discontinued (Other) Start: 06-01-2022 End: 02-09-2025 take 1 capsule by mouth once daily Nortriptyline 75 mg capsule Discontinued 75 mg PO DAILY July 05, 2022 12:00am October 17, 2024 5:33pm Comment on above: Take 75 mg by mouth once daily. Take 25 mg by mouth once daily. omeprazole 40 mg delayed release oral capsule (20 sources) Proton Pump Inhibitor Start: 01-04-2025 take 1 capsule by mouth twice daily Omeprazole 40 mg capsule,delayed release(DR/EC) Active 40 mg PO TWICE A DAY 90 2 January 04, 2025 4:32pm Start: 10-17-2024 End: 01-04-2025 take 1 capsule by mouth once daily Omeprazole 40 mg capsule,delayed release(DR/EC) Discontinued 40 mg PO daily 90 2 October 17, 2024 1:00am January 04, 2025 4:33pm Start: 04-01-2023 take 1 capsule by mo [facility] once daily omeprazole (PRILOSEC) 20 mg capsule Take 1 capsule by mouth once daily. 04/01/2023 Active Start: 11-23-2022 End: 02-13-2023 take 1 capsule by mouth once daily omeprazole (PRILOSEC) 20 mg capsule Take 20 mg by mouth once daily. 11/23/2022 02/13/2023 Discontinued (Changing Therapy/Dosage Form) Start: 09-17-2022 omeprazole 20 mg oral delayed release capsule Dose : 20 mg = 1 cap(s), Oral, qAM, # 180 cap(s), 0 Refill(s) Start Date: 09/17/22 Status: Ordered Start: 07-05-2022 End: 12-15-2024 take 20 mg by mouth once daily omeprazole Discontinued 20 mg SL/PO DAILY July 05, 2022 12:00am December 15, 2024 11:41am Start: 01-08-2022 End: 02-09-2025 take 2 capsules by mouth twice daily before mealtime omeprazole (PriLOSEC) [address] capsule Take 40 mg by mouth 2 times daily (before meals). 01/08/2022 02/09/2025 Discontinued (Therapy completed) Start: 01-08-2022 take 1 capsule by [facility] once daily omeprazole (PRILOSEC) 20 MG capsule omeprazole 20 mg capsule,delayed release TAKE 1 CAPSULE BY MOUTH ONCE DAILY 0 01/08/2022 Active Comment on above: Take 20 mg by mouth once daily. Take 1 capsule by [facility] once daily. oxyCODONE hydrochloride 5 mg oral tablet (20 sources) Opioid Agonist Start: 06-08-2025 End: 06-13-2025 take 1 tablet by mouth every six hours as needed for pain oxyCODONE (Roxicodone) 5 MG immediate release tablet Indications: Intractable abdominal pain Take 1 tablet (5 mg) by mouth every 6 hours as needed for moderate pain (4-6) for up to 5 days. 15 tablet 06/08/2025 06/13/2025 Active Start: 06-05-2025 End: 06-08-2025 take 1 tablet by mouth every four hours as needed for pain oxyCODONE (Roxicodone) immediate release tablet 5 mg Start: 05-27-2025 End: 05-28-2025 take 1 tablet by mouth every four hours as needed for pain oxyCODONE (Roxicodone) immediate release tablet 5 mg Start: 05-21-2025 End: 05-28-2025 take 1 tablet by mouth every six hours as needed for pain oxyCODONE (Roxicodone) 5 MG immediate release tablet Indications: Acute Pain Take 1 tablet (5 mg) by mouth every 6 hours as needed for severe pain (7-10) for up to 5 days. 20 tablet 05/21/2025 5:28 PM EDT 05/21/2025 05/28/2025 Discontinued (Stop taking at discharge) Start: 05-21-2025 End: 05-22-2025 take 1 tablet by mouth every four hours as needed for pain oxyCODONE (Roxicodone) immediate release tablet 5 mg Start: 05-03-2025 End: 05-20-2025 take 1 tablet by mouth every eight hours as needed for pain oxyCODONE (Roxicodone) 5 MG immediate release tablet Indications: Low back pain, unspecified back pain laterality, unspecified chronicity, unspecified whether sciatica present Take 1 tablet (5 mg) by mouth every 8 hours as needed for severe pain (7-10) for up to 13 doses. 13 tablet 05/03/2025 05/20/2025 Discontinued Start: 05-03-2025 End: 05-03-2025 take 5 mg by mouth once 5 mg, Oral, Once, On Breana 04/22 01/16 at 0925, For 1 dose Start: 02-12-2025 End: 02-15-2025 take 1 tablet by mouth every six hours as needed for pain oxyCODONE (Roxicodone) 5 MG immediate release tablet Indications: Left lower quadrant abdominal pain , Hemorrhagic ovarian cyst Take 1 tablet (5 mg) by mouth every 6 hours as needed for severe pain (7-10) for up to 3 days. 12 tablet 02/12/2025 02/15/2025 Active Start: 03-16-2023 End: 04-01-2023 take 1 tablet by mouth every six hours as needed for headache and headache oxyCODONE IR (ROXICODONE) 5 mg immediate release tablet Indications: Headaches Take 1 tablet by mouth every 6 hours as needed for pain. 4 tablet 0 03/16/2023 04/01/2023 Discontinued (Course of therapy completed) Comment on above: Take 1 tablet by jensen th every 6 hours as needed for pain. phenylephrine hydrochloride 25 mg/ml ophthalmic solution (10 sources) alpha-1 Adrenergic Agonist Start: 10-02-2024 End: 10-14-2024 PHENYLephrine 2.5 % 1 Drop (AK-DILATE, KYRA-SYNEPHRINE) Start: 10-02-2024 End: 10-14-2024 1 Drop, BOTH EYES, DIRECT ED, Starting on 10/02/24 at 0756, Until 10/14/24 at 0755, Administer for dilation PROTECT FROM LIGHT, OPHT CLINIC MED ORDERS Start: 05-01-2024 End: 05-13-2024 PHENYLephrine 2.5 % 1 Drop ( AK-DILATE, KYRA-SYNEPHRINE) Start: 06-27-2023 End: 07-08-2023 PHENYLephrine 2.5 % 1 Drop ( AK-DILATE, KYRA-SYNEPHRINE) Start: 12-21-2022 End: 01-01-2023 PHENYLephrine 2.5 % 1 Drop ( AK-DILATE, KYRA-SYNEPHRINE) proparacaine hydrochloride 5 mg/ml ophthalmic solution (11 sources) Local Anesthetic Start: 10-02-2024 End: 10-14-2024 proparacaine 0.5 % 1 Drop (ALCAINE) Start: 05-01-2024 End: 05-13-2024 proparacaine 0.5 % 1 Drop (A LCAINE) Start: 01-03-2024 End: 01-15-2024 proparacaine 0.5 % 1 Drop (A LCAINE) Start: 06-27-2023 End: 07-08-2023 proparacaine 0.5 % 1 Drop (A LCAINE) Start: 03-21-2023 End: 04-01-2023 proparacaine 0.5 % 1 Drop (A LCAINE) Start: 12-21-2022 End: 01-01-2023 proparacaine 0.5 % 1 Drop (A LCAINE) RABEprazole sodium 20 mg delayed release oral tablet (16 sources) Proton Pump Inhibitor Start: 02-13-2023 End: 04-01-2023 take 1 tablet by mouth once daily RABEprazole (ACIPHEX) 20 mg tablet Indications: IIH (idiopathic intracranial hypertension) Take 1 tablet by mouth once daily. 90 tablet 2 02/13/2023 04/01/2023 Discontinued (Changing Therapy/Dosage Form) Comment on above: Take 1 tablet by jensen once daily. rimegepant 75 mg disintegrating oral tablet (1 source) Start: 10-26-2022 [facility] ODT 75 mg oral tablet, disintegrating Dose : 75 mg = 1 tab(s), Oral, Every other day, # 8 tab(s), 0 Refill(s) Start Date: 10/26/22 Status: Ordered SEMAGLUTIDE SUBCUTANEOUS (20 sources) SEMAGLUTIDE SUBCUTANEOUS Inject subcutaneously. Active SEMAGLUTIDE, 2 MG/DOSE, SC (13 sources) Start: 05-14-2025 inject 1.7 mg by subcutaneous injection every week SEMAGLUTIDE, 2 MG/DOSE, SC Inject 1.7 mg under the skin 1 (one) time per week. 05/14/2025 Active Start: 05-14-2025 inject 1.7 mg by sub cutaneous injection every week SEMAGLUTIDE, 2 MG/DOSE, SC Inject 1.7 mg under the skin 1 (one) time per week. 05/14/2025 Suspended therapeutic multivitamin (THERAGRAN) tablet (1 source) take 1 tablet by mouth twice daily therapeutic multivitamin (THERAGRAN) tablet Take 1 (one) tablet by mouth 2 (two) times a day . 0 Active ticagrelor 90 mg oral tablet (3 sources) Start: 03-04-20 End: 04-04-20 take 2 tablets by mouth once daily, then take 1 tablet by mouth twice daily ticagrelor (BRILINTA) 90 mg tablet Indications: IIH (idiopathic intracranial hypertension) Take 2 tablets by mouth once daily for 1 day, THEN 1 tablet twice daily. 62 tablet 0 03/04/2023 04/04/2023 Active Comment on above: Take 2 tablets by mo [facility] once daily for 1 day, THEN 1 tablet twice daily. tropicamide 10 mg/ml ophthalmic solution (9 sources) Anticholinergic Start: 10-02-20 End: 10-14-20 tropicamide 1 % 1 Drop (MYDRIACYL) Start: 10-02-2024 End: 10-14-2024 1 Drop, BOTH EYES, DIRECT ED, Starting on 10/02/24 at 0756, Until 10/14/24 at 0755, Administer for dilation, OPHT CLINIC MED ORDERS Start: 05-01-2024 End: 05-13-2024 tropicamide 1 % 1 Drop (MYDR IACYL) Start: 06-27-2023 End: 07-08-2023 tropicamide 1 % 1 Drop (MYDR IACYL) Start: 12-21-2022 End: 01-01-2023 tropicamide 1 % 1 Drop (MYDR IACYL) vitamin b12 1 mg oral tablet (20 sources) Vitamin B12 Start: 03-17-2023 End: 04-16-2023 take 1 tablet by mouth once daily cyanocobalamin (VITAMIN B-12) 1,000 mcg tab Take 1 tablet by mouth once daily. 30 tablet 03/17/2023 Active take 2 tablets by mouth once caitlin ly Cyanocobalamin (VITAMIN B-12 PO) Take 2 tablets by mouth daily. Active Comment on above: Take 1 tablet by jensen once daily. Vitamin D3 (1 source) Start: 09-17-2022 Vitamin D3 Dose : 25 mcg = 1 tab(s), Oral, qAM, # 30 tab(s), 0 Refill(s) Start Date: 09/17/22 Status: Ordered Vitamin D3 25 mcg (1000 intl units) oral capsule (1 source) Start: 10-26-2022 Vitamin D3 25 mcg (1000 intl units) oral capsule Dose : 25 mcg = 1 cap(s), Oral, Daily, 0 Refill(s) Start Date: 10/26/22 Status: Ordered WEYGOVY auto-injector (3 sources) Start: 12-15-2024 WEYGOVY auto-injector Active 20 U SC RODRÍGUEZ December 15, 2024 1:00am Completed/Discontinued Medications Medication Drug Class(es) Dates Sig (Normalized) Sig (Original) acetaminophen 500 mg oral tablet (20 sources) Start: 06-06-2025 End: 06-08-2025 take 1 tablet by mouth every six hours 1,000 mg, Oral, Every 6 hours, First dose on Wed06/06/25 at 0630, Maximum dose of acetaminophen is 4000 mg from all sources in 24 hours. Start: 05-27-2025 End: 05-28-2025 take 1 dose by mouth three times daily, then take 4000 mg by mouth every twenty-four hours 1,000 mg, Oral, Every 8 hours scheduled (3 times per day), First dose on Wed05/27/25 at 1400, Maximum dose of acetaminophen is 4000 mg from all sources in 24 hours. Start: 05-22-2025 End: 05-22-2025 take 1 dose by mouth three times daily, then take 4000 mg by mouth every twenty-four hours 1,000 mg, Oral, Every 8 hours scheduled (3 times per day), First dose on Wed05/22/25 at 0845, Maximum dose of acetaminophen is 4000 mg from all sources in 24 hours. Start: 05-21-2025 End: 05-22-2025 1,000 mg, IntraVENous, at 40 0 mL/hr, Administer over 15 Minutes, Every 6 hours scheduled (4 times per day), First dose (after last modification) on Wed05/21/25 at 1800, Phase II/On Unit Start: 05-21-2025 End: 05-21-2025 take 1000 mg intravenously every eight hours 1,000 mg, IntraVENous, at 400 mL/hr, Administer over 15 Minutes, Every 8 hours, First dose on Wed05/21/25 at 0015, Phase II/On Unit Start: 03-28-2025 End: 03-28-2025 650 mg, Oral, Once, On Wed at 1620, For 1 dose, Maximum dose of acetaminophen is 4000 mg from all sources in 24 hours. Start: 03-28-2025 End: 04-04-2025 take 1 tablet by mouth every six hours as needed for pain acetaminophen (Tylenol) 500 MG tablet Take 1 tablet (500 mg) by mouth every 6 hours as needed for mild pain (1-3) for up to 7 days. 28 tablet 03/28/2025 04/04/2025 Active End: 01-12-2023 take 1 tablet by mouth every six hours as needed acetaminophen (TYLENOL) 500 mg tablet Take 500 mg by mouth every 6 hours as needed. 01/12/2023 Discontinued take 2 tablets by [facility] every six hours as needed acetaminophen (TYLENOL) 325 MG tablet Take 2 (two) tablets (650 mg total) by mouth every 6 (six) hours as needed . 0 Active Comment on above: Take 500 mg by mouth every 6 hours as needed. acetaminophen 325 mg / oxyCODONE hydrochloride 5 mg oral tablet (11 sources) Opioid Agonist Start: End: take 1 tablet by mouth every six hours as needed for pain oxyCODONE-acetaminophe n (Percocet) 5-325 MG tablet Indications: Postoperative abdominal pain Take 1 tablet by mouth every 6 hours as needed for severe pain (7-10) for up to 5 days. 12 tablet 05/26/2025 06/05/2025 Discontinued Start: 03-28-2025 End: 03-30-2025 take 1 tablet by mouth every six hours as needed for pain oxyCODONE-acetaminophen (Percocet) 5-325 MG tablet Indications: Other acute postprocedural pain , History of lumbar puncture Take 1 tablet by mouth every 6 hours as needed for severe pain (7-10) for up to 2 days. 8 tablet 03/28/2025 03/30/2025 Active amitriptyline hydrochloride 50 mg oral tablet (20 sources) Tricyclic Antidepressant Start: 06-05-2025 End: 06-08-2025 take 50 mg by mouth once daily 50 mg, Oral, Nightly, First dose on Wed06/05/25 at 2200 Start: 05-21-2025 End: 05-22-2025 take 50 mg by mouth once daily 50 mg, Oral, Nightly, F irst dose (after last modification) on Wed05/21/25 at 2100 Start: 07-25-2024 End: 06-05-2025 take 1 tablet by mouth once daily amitriptyline (Elavil) 25 MG tablet Take 25 mg by mouth Nightly. 07/25/2024 06/05/2025 Discontinued End: 03-16-2023 take 1 tablet by mouth once daily at bedtime amitriptyline (ELAVIL) 10 mg tablet Take 10 mg by mouth daily at bedtime. 0 03/16/2023 Discontinued Comment on above: Take 10 mg by mouth daily at bedtime. ARIPiprazole 10 mg oral tablet (20 sources) Atypical Antipsychotic Start: 06-06-2025 End: 06-08-2025 take 10 mg by mouth once daily 10 mg, Oral, Daily, First dose on Wed06/06/25 at 0900 Start: 01-20-2023 End: 05-22-2025 take 1 tablet by mouth once daily ARIPiprazole (ABILIFY) 10 mg tablet Take 10 mg by mouth once daily. 01/20/2023 Active Start: 07-05-2022 take 2 tablets by mo [facility] at bedtime Aripiprazole 5 mg tablet Active 10 mg PO AT BEDTIME July 05, 2022 12:00am Start: 02-02-2022 End: 06-05-2025 take 1 tablet by mouth once daily ARIPiprazole (Abilify) 5 MG tablet Indications: Anxiety Take 5 mg by mouth daily. 02/02/2022 06/05/2025 Discontinued End: 03-12-2023 ARIPiprazole (ABILIFY) 2 mg tablet Take 1 tablet by mouth. 03/12/2023 Discontinued Comment on above: Take 1 tablet by jensen th. Take 10 mg by mouth once daily. barium sulfate (E-Z-Paque) 96 % suspension 352 g (2 sources) Start: End: take 352 g by mouth once as needed 352 g (120 mL), Oral, IMG once PRN, ugi/sbft, Starting on Wed03/01/25 at 1040, For 1 dose calcium chloride 0.0014 meq/ml / potassium chloride 0.004 meq/ml / sodium chloride 0.103 meq/ml / sodium lactate 0.028 meq/ml injectable solution (2 sources) Start: End: take 100 mL intravenously every hour 100 mL/hr, IntraVENous, Continuous, Starting on Wed05/27/25 at 0935 cholecalciferol 9.52 unt/ml / glucose 357 mg/ml oral gel (2 sources) Vitamin D Start: End: 15 g, Oral, As needed, low blood sugar, Starting on Wed05/27/25 at 0932, If blood glucose less than 50 mg/dL and patient ALERT and NOT NPO, give 2 tubes glucose gel. If blood glucose less than 70 mg/dL and patient ALERT and NOT NPO, give 1 tube glucose gel. Repeat blood glucose in 15 minutes. If blood glucose is less than 70 mg/dL, repeat treatment and recheck blood glucose in 15 minutes x2 and notify provider. clopidogrel 75 mg oral tablet (14 sources) P2Y12 Platelet Inhibitor Start: End: take 1 tablet by mouth once daily clopidogrel (PLAVIX) 75 mg tablet Indications: IIH (idiopathic intracranial hypertension) Take 1 tablet by mouth once daily. 90 tablet 1 01/28/2023 03/04/2023 Discontinued (Course of therapy completed) Comment on above: Take 1 tablet by jensen once daily. diatrizoate meglumine-sodium (Gastrografin) 66-10 % solution 120 mL (2 sources) Start: End: take 120 mL by mouth once 120 mL, Oral, Once, On Wed06/07/25 at 1300, For 1 dose, Administered at the time of the exam. diatrizoate meglumine-sodium (Gastrografin) 66-10 % solution 30 mL (4 sources) Start: End: 30 mL, Oral, Once, On Wed06/05/25 at 1125, For 1 dose, Mix 30 mL of Gastrografin in 32 oz of water. Inpatients - Drink half of the mixture 2 hours before exam and the other half 1 hour before exam. Emergency patients - Drink the entire mixture and then wait 1 hour to scan. Start: 05-27-2025 End: 05-27-2025 30 mL, Oral, Once, On 05/16 at 0915, For 1 dose, Mix 30 mL of Gastrografin in 32 oz of water. Inpatients - Drink half of the mixture 2 hours before exam and the other half 1 hour before exam. Emergency patients - Drink the entire mixture and then wait 1 hour to scan. diazePAM 5 mg oral tablet (4 sources) Benzodiazepine Start: 07-04-2025 End: 07-04-2025 take 5 mg by mouth once 5 mg, Oral, Once, On Wed07/04/25 at 0745, For 1 dose Start: 07-04-2025 End: 07-04-2025 take 5 mg by mouth once 5 mg, Oral, Once, On 06/22 at 0745, For 1 dose Start: 05-03-2025 End: 05-03-2025 take 5 mg by mouth once 5 mg, Oral, Once, On 04/22 at 0925, For 1 dose 2 ml dicyclomine hydrochloride 10 mg/ml injection (5 sources) Anticholinergic Start: 05-20-2025 End: 05-20-2025 inject 20 mg by intramuscular injection once 20 mg, IntraMUSCular, Once, On 05/20/25 at 1905, For 1 dose Start: 09-12-2024 take 2 capsules by m outh three times daily as needed for pain Dicyclomine 10 mg capsule Active 20 mg PO THREE TIMES A DAY as needed for abdominal pain September 12, 2024 8:20pm docusate sodium 50 mg / sennosides, long-term 8.6 mg oral tablet (11 sources) Start: 05-28-2025 End: 06-11-2025 take 2 tablets by mouth once daily, then take 2 tablets by mouth once daily senna-docusate sodium (Senokot-S) 8.6-50 MG tablet Indications: Constipation Take 2 tablets by mouth daily for 14 days. Take 2 tablets daily while taking prescribed pain medication 28 tablet 05/28/2025 10:42 AM EDT 05/28/2025 06/08/2025 Discontinued (Therapy completed) DULoxetine 60 mg oral capsule (20 sources) Serotonin and Norepinephrine Reuptake Inhibitor Start: 07-05-2022 End: 12-15-2024 take 60 mg by mouth twice daily Cymbalta Discontinued 60 mg SL/PO TWICE A DAY July 05, 2022 12:00am December 15, 2024 11:42am Start: 01-29-2022 End: 06-08-2025 take 1 capsule by mouth twice daily DULoxetine (Cymbalta) [address] capsule Indications: Major Depressive Disorder Take 60 mg by mouth 2 times daily. 01/29/2022 Active Comment on above: duloxetine 60 mg cap destini,delayed release TAKE 1 CAPSULE BY MOUTH TWICE DAILY 0.3 ml enoxaparin sodium 100 mg/ml prefilled syringe (2 sources) Low Molecular Weight Heparin Start: End: inject 1 dose by subcutaneous injection twice daily 30 mg, SubCUTAneous, Every 12 hours scheduled (2 times per day), First dose on Wed05/27/25 at 2100, Indication of Use: Prophylaxis-DVT/PE glucagon (rdna) 1 mg injection (2 sources) Antihypoglycemic Agent Start: End: 1 mg, IntraMUSCular, PRN, low blood sugar, Blood glucose less than 70 mg/dL and patient NOT ALERT or NPO and does not have IV access., Starting on Wed05/27/25 at 0932, After administration, attempt intravenous access and start D5W at 100 mL/hr. Repeat blood glucose in 15 minutes x2 and notify provider. 50 ml glucose 50 mg/ml injection (4 sources) Start: End: 100 mL/hr, IntraVENous, PRN, Blood sugar less than 70mg/dL, Starting on Wed05/27/25 at 0932, Start infusion following administration of dextrose 50% or glucagon. Start: 05-27-2025 End: 05-28-2025 12.5 g, IntraVENous, PRN, lo w blood sugar, Blood glucose less than 70 mg/dL and patient NOT ALERT or NPO., Starting on Wed05/27/25 at 0932, If patient does not respond within 5 minutes, repeat dose x1. Start D5W at 100 mL/hour until ordering provider can be reached. Repeat blood glucose in 15 minutes. If blood glucose is less than 70 mg/dL, repeat treatment and recheck blood glucose in 15 minutes x2. If using Glucostabilizer, dose as instructed per system. 1 ml haloperidol 5 mg/ml prefilled syringe (2 sources) Typical Antipsychotic Start: 06-06-2025 End: 06-06-2025 5 mg, IntraMUSCular, Once, On Wed06/06/25 at 1500, For 1 dose, IM route of administration preferred. Because of the risk of TdP and QT prolongation, ECG monitoring is recommended if haloperidol is given IV 1 ml HYDROmorphone hydrochloride 1 mg/ml cartridge (20 sources) Opioid Agonist Start: 07-04-2025 End: 07-04-2025 take 1 dose by mouth every hour 1 mg, IntraMUSCular, Once, On Wed07/04/25 at 0745, For 1 dose, If oral and injectable narcotics ordered, use oral first and only use injectable if oral is ineffective or cannot take oral. Do Not give oral and injectable within 1 hour of each other unless specifically ordered. Start: 07-04-2025 End: 07-04-2025 take 1 dose by mouth every hour 1 mg, IntraMUSCular, Once, On Wed07/04/25 at 0745, For 1 dose, If oral and injectable narcotics ordered, use oral first and only use injectable if oral is ineffective or cannot take oral. Do Not give oral and injectable within 1 hour of each other unless specifically ordered. Start: 06-05-2025 End: 06-06-2025 0.5 mg, IntraVENous, Once, O n 06/05/25 at 1520, For 1 dose Start: 05-27-2025 End: 05-27-2025 take 0.5 mg by mouth once 0.5 mg, IntraVENous, Once, O n [place] 05/27/25 at 0900, For 1 dose, If oral and injectable narcotics ordered, use oral first and only use injectable if oral is ineffective or cannot take oral. Do Not give oral and injectable within 1 hour of each other unless specifically ordered. Start: 05-26-2025 End: 05-26-2025 take 1 dose by mouth every hour 1 mg, IntraVENous, Once, On 05/26/25 at 1350, For 1 dose, If oral and injectable narcotics ordered, use oral first and only use injectable if oral is ineffective or cannot take oral. Do Not give oral and injectable within 1 hour of each other unless specifically ordered. Start: 05-20-2025 End: 05-20-2025 0.5 mg, IntraVENous, Every 5 min PRN, severe pain (7-10), Starting on 05/20/25 at 2317, For 4 doses, Recovery (only), Phase I and Phase II- Initial therapy for severe pain (7-10). Restricted to a 90 minute time frame starting when the patient can verbally state their pain score. If after 2 doses the pain score does not decrease by more than one point, then call the provider. If oral meds are utilized, do not return to initial therapy medications. Start: 05-20-2025 End: 05-20-2025 take 0.5 mg by mouth once 0.5 mg, IntraVENous, Once, O n 05/20/25 at 1950, For 1 dose, If oral and injectable narcotics ordered, use oral first and only use injectable if oral is ineffective or cannot take oral. Do Not give oral and injectable within 1 hour of each other unless specifically ordered. Start: 03-28-2025 End: 03-28-2025 0.5 mg, IntraVENous, Once, O n 03/28/25 at 1850, For 1 dose Start: 02-12-2025 End: 02-12-2025 take 1 dose by mouth every hour 1 mg, IntraVENous, Once, On 02/12/25 at 1015, For 1 dose, If oral and injectable narcotics ordered, use oral first and only use injectable if oral is ineffective or cannot take oral. Do Not give oral and injectable within 1 hour of each other unless specifically ordered. HYDROmorphone (Dilaudid) injection 0.25 mg (4 sources) Start: 05-27-2025 End: 05-28-2025 HYDROmorphone (Dilaudid) injection 0.25 mg Start: 05-21-2025 End: 05-22-2025 take 0.25 mg intravenously every four hours as needed for pain HYDROmorphone (Dilaudid) injection 0.25 mg insulin lispro 100 unt/ml injectable solution (2 sources) Insulin Analog Start: 05-27-2025 End: 05-28-2025 0-12 Units, SubCUTAneous, Every 6 hours, First dose on Wed05/27/25 at 0935, NPO Medium Dose Correction Algorithm Glucose: Dose: If LESS than 150 No Insulin 150-199 2 Units 200-249 4 Units 250-299 6 Units 300-349 8 Units 350-400 10 Units Above 400 12 Units iopamidol (Isovue-370) 76 % injection 75 mL (8 sources) Start: 06-05-2025 End: 06-05-2025 take 75 mL intravenously once as needed 75 mL, IntraVENous, IMG once PRN, contrast, Starting on Tu06/05/25 at 1433, For 1 dose Start: 05-26-2025 End: 05-26-2025 take 75 mL intravenously once as needed 75 mL, IntraVENous, IMG once PRN, contrast, Starting on 05/26/25 at 1301, For 1 dose Start: 03-28-2025 End: 03-28-2025 take 75 mL intravenously once as needed 75 mL, IntraVENous, IMG once PRN, contrast, Starting on 03/28/25 at 1737, For 1 dose Start: 02-12-2025 End: 02-12-2025 take 75 mL intravenously once as needed 75 mL, IntraVENous, IMG once PRN, contrast, Starting on Wed02/12/25 at 0854, For 1 dose 1 ml ketorolac tromethamine 30 mg/ml cartridge (6 sources) Nonsteroidal Anti-inflammatory Drug, Cyclooxygenase Inhibitor Start: 05-21-2025 End: 05-22-2025 15 mg, IntraVENous, Every 6 hours scheduled (4 times per day), First dose on Wed05/21/25 at 0700, For 4 doses Start: 05-20-2025 End: 05-20-2025 15 mg, IntraVENous, Once, On Wed05/20/25 at 1905, For 1 dose Start: 02-12-2025 End: 02-12-2025 30 mg, IntraVENous, Once, On Wed02/12/25 at 1015, For 1 dose lacosamide (Vimpat) 200 mg in sodium chloride 70 mL IVPB (2 sources) Start: 05-27-2025 End: 05-28-2025 take 200 mg intravenously every twelve hours 200 mg, IntraVENous, at 140 mL/hr, Administer over 30 Minutes, Every 12 hours, First dose on Wed05/27/25 at 1030 lactulose 667 mg/ml oral solution (3 sources) Osmotic Laxative Start: 09-12-2024 End: 12-15-2024 take 1 mL by mouth twice daily as needed for constipation Lactulose 10 gram/15 mL (15 mL) solution Discontinued 15 mL PO TWICE A DAY as needed for constipation 300 0 September 12, 2024 8:19pm December 15, 2024 11:41am LORazepam 0.5 mg oral tablet (20 sources) Benzodiazepine Start: 04-28-2022 End: 06-08-2025 take 1 tablet by mouth every twenty-four hours as needed for anxiety LORazepam (Ativan) 0.5 MG tablet Take 0.5 mg by mouth Daily as needed for anxiety. 05/09/2025 06/08/2025 Discontinued (Therapy completed) magnesium citrate 58.2 mg/ml oral solution (3 sources) Start: 06-18-2024 End: 12-15-2024 take 1 mL by mouth once Magnesium Citrate solution Discontinued 300 mL PO ONE TIME 1 0 June 18, 2024 12:00am December 15, 2024 11:41am 10 ml methocarbamol 100 mg/ml injection (19 sources) Muscle Relaxant Start: 05-27-2025 End: 05-28-2025 500 mg, IntraVENous, Administer over 5 Minutes, Every 8 hours scheduled (3 times per day), First dose on Wed05/27/25 at 1400, Maximum dose: 3 g/day for no more than 3 consecutive days Start: 05-21-2025 End: 05-22-2025 take 1 dose by mouth four times daily 750 mg, Oral, Every 6 hours scheduled (4 times per day), First dose (after last modification) on Wed05/21/25 at 1800, Phase II/On Unit Start: 05-21-2025 End: 05-21-2025 take 1 dose by mouth four times daily 500 mg, Oral, Every 6 hours scheduled (4 times per day), First dose on Wed05/21/25 at 0015, Phase II/On Unit Start: 03-28-2025 End: 06-08-2025 take 1 tablet by mouth twice daily methocarbamol (Robaxin) 500 MG tablet Take 1 tablet (500 mg) by mouth 2 times daily for 10 days. 20 tablet 03/28/2025 06/08/2025 Discontinued (Therapy completed) [facility] [place] Start: 09-17-2022 [facility] [place] tab(s), Oral, qAM, citracal max plus D3, 0 Refill(s), 118 Start Date: 09/17/22 Status: Ordered 1 ml morphine sulfate 4 mg/ml cartridge (16 sources) Opioid Agonist Start: 06-05-2025 End: 06-05-2025 take 1 dose by mouth every hour 2 mg, IntraVENous, Once, On Wed06/05/25 at 1905, For 1 dose, If oral and injectable narcotics ordered, use oral first and only use injectable if oral is ineffective or cannot take oral. Do Not give oral and injectable within 1 hour of each other unless specifically ordered. Start: 06-05-2025 End: 06-05-2025 take 1 dose by mouth every hour 4 mg, IntraVENous, Once, On Wed06/05/25 at 1035, For 1 dose, If oral and injectable narcotics ordered, use oral first and only use injectable if oral is ineffective or cannot take oral. Do Not give oral and injectable within 1 hour of each other unless specifically ordered. Start: 05-26-2025 End: 05-26-2025 take 1 dose by mouth every hour 4 mg, IntraVENous, Once, On Wed05/26/25 at 1205, For 1 dose, If oral and injectable narcotics ordered, use oral first and only use injectable if oral is ineffective or cannot take oral. Do Not give oral and injectable within 1 hour of each other unless specifically ordered. Start: 05-20-2025 End: 05-20-2025 take 1 dose by mouth every hour 4 mg, IntraVENous, Once, On Wed05/20/25 at 1815, For 1 dose, If oral and injectable narcotics ordered, use oral first and only use injectable if oral is ineffective or cannot take oral. Do Not give oral and injectable within 1 hour of each other unless specifically ordered. Start: 03-28-2025 End: 03-28-2025 4 mg, IntraVENous, Once, On Wed03/28/25 at 1620, For 1 dose Start: 02-11-2025 End: 02-12-2025 take 1 dose by mouth every hour 4 mg, IntraVENous, Once, On Wed02/12/25 at 0815, For 1 dose, If oral and injectable narcotics ordered, use oral first and only use injectable if oral is ineffective or cannot take oral. Do Not give oral and injectable within 1 hour of each other unless specifically ordered. morphine injection 2 mg (2 sources) Start: 06-05-2025 End: 06-08-2025 take 2 mg intravenously every four hours as needed for pain morphine injection 2 mg Multiple Vitamins-Minerals (Oncovite) tablet (20 sources) End: 06-05-2025 take 1 tablet by mouth in the morning Multiple Vitamins-Minerals (Oncovite) tablet Take 1 tablet by mouth in the morning and 1 tablet in the evening. 06/05/2025 Discontinued take 1 tablet by mouth in the mo rning Multiple Vitamins-Minerals (Oncovite) tablet Take 1 tablet by mouth in the morning and 1 tablet in the evening. Active 1 ml naloxone hydrochloride 0.4 mg/ml injection (4 sources) Opioid Antagonist Start: 05-27-2025 End: 05-28-2025 0.4 mg, IntraVENous, Every 5 min PRN, opioid reversal, respiratory depression, Starting on Wed05/27/25 at 0935, +++ For RR Start: 05-21-2025 End: 05-22-2025 0.4 mg, IntraVENous, Every 5 min PRN, opioid reversal, respiratory depression, Starting on Wed05/21/25 at 0002, +++ For RR naloxone (Narcan) 0.4 mg in 0.9% sodium chloride 10 mL syringe (2 sources) Start: 06-05-2025 End: 06-08-2025 IntraVENous, PRN, opioid reversal, Starting on Wed06/05/25 at 2116, PRN if respiratory rate is less than 6/min and patient is difficult to arouse then notify physician STAT. Mix 9 mL of sodium chloride 0.9% with 0.4 mg (1 mL) of naloxone (NARCAN) in 10 mL syringe. (Note: dilution is 0.04 mg/mL) Give 0.08 mg (2 mL of special dilution), slow IV push, repeat up to 0.4 mg (10 mL) or until patient is responsive to physical stimulation and respiratory rate is equal to or greater than 6 breaths/min. Continue to observe, if no response within 3 minutes of administration of 0.4 mg (10 mL) total, repeat dose (0.4 mg as administered previously). norethindrone 0.35 mg oral tablet (13 sources) Start: 03-30-2025 End: 03-30-2026 take 1 tablet by mouth once daily norethindrone (Ortho Micronor) 0.35 MG tablet Indications: Left lower quadrant abdominal pain , Hemorrhagic ovarian cyst Take 1 tablet (0.35 mg) by mouth daily. 84 tablet 3 03/30/2025 06/05/2025 Discontinued (Therapy completed) 2 ml ondansetron 2 mg/ml injection (20 sources) Serotonin-3 Receptor Antagonist Start: 06-05-2025 End: 06-05-2025 4 mg, IntraVENous, Once, On Wed06/05/25 at 1035, For 1 dose Start: 05-26-2025 End: 05-27-2025 4 mg, IntraVENous, Once, On Wed05/27/25 at 0935, For 1 dose Start: 05-21-2025 End: 06-05-2025 take 1 tablet by mouth every eight hours as needed for nausea ondansetron (Zofran) 4 MG tablet Indications: Nausea and Vomiting , Postoperative Nausea and Vomiting Take 1 tablet (4 mg) by mouth every 8 hours as needed for nausea or vomiting for up to 7 days. 21 tablet 05/28/2025 10:42 AM EDT 05/28/2025 06/05/2025 Discontinued Start: 05-20-2025 End: 05-20-2025 4 mg, IntraVENous, Once, On Wed05/20/25 at 1815, For 1 dose Start: 03-12-2025 End: 03-12-2025 4 mg, IntraVENous, Once PRN, nausea, vomiting, Starting on Wed03/12/25 at 0804, For 1 dose, Preprocedure Start: 02-12-2025 End: 02-12-2025 4 mg, IntraVENous, Once, On Wed02/12/25 at 0815, For 1 dose ondansetron ODT (Zofran-ODT) disintegrating tablet 4 mg (6 sources) Start: 06-05-2025 End: 06-08-2025 take 1 tablet by mouth every eight hours as needed for nausea and vomiting ondansetron ODT (Zofran-ODT) disintegrating tablet 4 mg Start: 05-27-2025 End: 05-28-2025 take 1 tablet by mouth every eight hours as needed for nausea and vomiting ondansetron ODT (Zofran-ODT) disintegrating tablet 4 mg Start: 05-21-2025 End: 05-22-2025 take 1 tablet by mouth every eight hours as needed for nausea and vomiting ondansetron ODT (Zofran-ODT) disintegrating tablet 4 mg 2 ml orphenadrine citrate 30 mg/ml injection (2 sources) Muscle Relaxant Start: 03-28-2025 End: 03-28-2025 inject 60 mg by intramuscular injection once 60 mg, IntraMUSCular, Once, On Wed03/28/25 at 1620, For 1 dose pantoprazole (10 sources) Proton Pump Inhibitor Start: 05-27-2025 End: 05-28-2025 pantoprazole (ProtoNix) EC tablet 40 mg Start: 01-28-2023 End: 02-13-2023 take 1 tablet by mouth once daily pantoprazole DR (PROTONIX) 40 mg tablet Indications: IIH (idiopathic intracranial hypertension) Take 1 tablet by mouth once daily. 90 tablet 2 01/28/2023 02/13/2023 Discontinued (Lack of Efficacy) Comment on above: Take 1 tablet by jensen once daily. pantoprazole (ProtoNix) 40 mg in sodium chloride (PF) 0.9 % 10 mL injection (2 sources) Start: End: 40 mg, IntraVENous, Administer over 2 Minutes, Daily, First dose on Wed05/27/25 at 1015, Phase II/On Unit, Reconstitute with 10 ml NS. Vial expires 2 hrs after reconstitution. 1 ml promethazine hydrochloride 25 mg/ml injection (2 sources) Phenothiazine Start: End: inject 6.25 mg by intramuscular injection once 6.25 mg, IntraMUSCular, Once, On Wed06/05/25 at 1315, For 1 dose, Only to be given as IM injection. SEMAGLUTIDE, 1 MG/DOSE, SC (20 sources) Start: End: inject 1 mL by subcutaneous injection every week SEMAGLUTIDE, 1 MG/DOSE, SC Inject 1 mL under the skin 1 (one) time per week. 08/07/2024 06/05/2025 Discontinued Start: 08-07-2024 inject 1 mL by subcu taneous injection every week SEMAGLUTIDE, 1 MG/DOSE, SC Inject 1 mL under the skin 1 (one) time per week. 08/07/2024 Active 5 ml sodium chloride 9 mg/ml injection (18 sources) Start: 06-05-2025 End: 06-08-2025 10 mL, IntraVENous, Every 12 hours scheduled (2 times per day), First dose on Wed06/05/25 at 2100 Start: 06-05-2025 End: 06-08-2025 take 10 mL intravenously once as needed 10 mL, IntraVENous, PRN, line care, Starting on Wed06/05/25 at 1811, After every IV line use Start: 06-05-2025 End: 06-08-2025 take 100 mL intravenously every hour as needed, then take 20 mL intravenously every hour as needed 5-250 mL/hr, IntraVENous, PRN, if patient receiving piggyback infusions and maintenance fluids are not ordered OR KVO fluids to protect IV site / prevent frequent line interruptions/ long duration, Starting on Wed06/05/25 at 1811, For piggyback infusion, administer at same rate as piggyback for a total of 25 mL. Enter 25 mL into dose field and piggyback rate into rate field of order. If piggyback is infusing at a rate less than 100 mL/hr, enter 25 mL into dose field and 100 mL/hr into rate field of order. For KVO fluids, enter rate of 20 mL/hr or less into rate field of order. Start: 05-26-2025 End: 05-27-2025 1,000 mL, IntraVENous, at 1, 000 mL/hr, Administer over 1 Hours, Once, On Wed05/27/25 at 0915, For 1 dose Start: 05-20-2025 End: 05-20-2025 1,000 mL, IntraVENous, at 1, 000 mL/hr, Administer over 1 Hours, Once, On Wed05/20/25 at 1815, For 1 dose Start: 03-12-2025 End: 03-12-2025 take 50 mL intravenously every hour 50 mL/hr, IntraVENous, Continuous, Starting on Wed03/12/25 at 0815, Preprocedure sucralfate 1000 mg oral tablet (5 sources) Aluminum Complex Start: 05-27-2025 End: 05-28-2025 1 g, Oral, 4 times daily before meals & nightly, First dose on Wed05/27/25 at 1700, Give on an empty stomach (1 hr before meals, at bedtime). Separate all other meds by at least 2 hours (exception: antacids may be given only 30 minutes apart). Start: 01-04-2025 End: 01-18-2025 take 1 tablet by mouth twice daily Sucralfate 1 gram tablet Discontinued 1 g PO TWICE A DAY 28 14 0 January 04, 2025 1:00am January 17, 2025 1:00am January 18, 2025 1:13am therapeutic multivitamin ( ERA VITAMIN) tablet (20 sources) End: 03-12-2023 therapeutic multivitamin ( ERA VITAMIN) tablet Take 1 tablet by mouth. 03/12/2023 Discontinued therapeutic mult ivitamin (THERA VITAMIN) tablet Take 1 tablet by mouth. 0 Active Comment on above: Take 1 tablet by jensen th. thiamine (Vitamin B1) 500 mg in sodium chloride 0.9 % 50 mL IVPB (2 sources) Start: 06-05-2025 End: 06-08-2025 500 mg, IntraVENous, at 100 mL/hr, Administer over 30 Minutes, 3 times daily, First dose on Wed06/05/25 at 1635, For 5 days, Protect from light. traMADol hydrochloride 50 mg oral tablet (20 sources) Opioid Agonist Start: 07-05-2022 End: 06-22-2025 take 1 tablet by mouth every twelve hours as needed for pain traMADol (Ultram) 50 MG tablet Take 50 mg by mouth every 12 hours as needed for severe pain (7-10) or moderate pain (4-6). 05/23/2025 06/22/2025 Start: 07-05-2022 End: 05-20-2025 take 1 tablet by mouth every twelve hours as needed traMADol (ULTRAM) 50 mg tablet Take 1 tablet by mouth twice daily as needed for pain. 04/01/2023 Active Comment on above: tramadol 50 mg table t TAKE 1 TABLET BY MOUTH TWICE DAILY NEEDED FOR PAIN Take 1 tablet by jensen twice daily as needed for pain. traZODone hydrochloride 50 mg oral tablet (16 sources) Serotonin Reuptake Inhibitor Start: 3 take 1 tablet by mouth once daily at bedtime traZODone (DESYREL) 50 mg tablet Take 1 tablet by mouth daily at bedtime. 0 01/20/2023 Active Comment on above: Take 1 tablet by ejnsen th daily at bedtime. Problems Active Problems Problem Classification Problem Date Documented Da te Episodic/Chronic Abdominal pain (20 sources) Abdominal pain; Translations: [Right lower quadrant pain] Onset: 4 02-11-2025 Episodic Allergic reactions (1 source) Allergy to penicillin; Translations: [Allergy status to penicillin] 06-04-2023 Episodic Anxiety disorders (20 sources) Anxiety; Translations: [Anxiety disorder, unspecified] Onset: 3 09-17-2022 Chronic Diabetes mellitus without complication (1 source) Hyperglycemia; Translations: [Hyperglycemia, unspecified] Episodic Epilepsy; convulsions (20 sources) Epilepsy; Translations: [Refractory epilepsy] Onset: 2 09-17-2022 Chronic Comment on above: since on jan seizures have lessened Esophageal disorders (20 sources) Gastroesophageal reflux disease; Translations: [Gastro-esophageal reflux disease without esophagitis] Onset: 3 09-17-2022 Chronic Mood disorders (20 sources) Depressive disorder; Translations: [Major depression, single episode] Onset: 3 09-17-2022 Chronic Mood disorders (2 sources) Mood disorders; Translations: [Depression, unspecified] Onset: 5 Nausea and vomiting (4 sources) Intractable nausea and vomiting; Translations: [Nausea with vomiting, unspecified] Onset: 5 06-05-2025 Episodic Nutritional deficiencies (8 sources) Vitamin B deficiency; Translations: [Deficiency of other specified B group vitamins] Onset: 5 02-07-2025 Episodic Other circulatory disease (1 source) History of cardiovascular surgery; Translations: [Presence of other vascular implants and grafts] Chronic Other connective tissue disease (2 sources) Swelling of right lower limb; Translations: [Other specified soft tissue disorders] 06-18-2025 Episodic Other connective tissue disease (2 sources) Pain of right calf; Translations: [Pain in right lower leg] 06-18-2025 Episodic Other connective tissue disease (2 sources) Other specified soft tissue disorders; Translations: [Other specified soft tissue disorders] Onset: 5 Episodic Other connective tissue disease (2 sources) Pain in right lower leg; Translations: [Pain in right lower leg] Onset: 5 Episodic Other ear and sense organ disorders (3 sources) Tinnitus of vascular origin; Translations: [Pulsatile tinnitus, unspecified ear] Episodic Other gastrointestinal disorders (20 sources) Intestinal malabsorption; Translations: [Intestinal malabsorption, unspecified] Onset: 5 02-07-2025 Chronic Other gastrointestinal disorders (2 sources) Intestinal malabsorption, unspecified; Translations: [Intestinal malabsorption, unspecified] Onset: 5 Chronic Other gastrointestinal disorders (4 sources) Constipation; Translations: [Constipation, unspecified] 09-20-2024 Episodic Other gastrointestinal disorders (2 sources) History of bariatric surgical procedure; Translations: [Bariatric surgery status] 05-20-2025 Episodic Other gastrointestinal disorders (2 sources) Drug-induced constipation; Translations: [Drug induced constipation] 05-26-2025 Episodic Other gastrointestinal disorders (2 sources) Drug induced constipation; Translations: [Drug induced constipation] Onset: 5 Episodic Other nervous system disorders (20 sources) Benign intracranial hypertension; Translations: [Benign intracranial hypertension] Onset: 3 Chronic Other nervous system disorders (5 sources) Benign intracranial hypertension; Translations: [Benign intracranial hypertension] Onset: 2 Chronic Other nervous system disorders (20 sources) Raised intracranial pressure; Translations: [Benign intracranial hypertension] Onset: 5 Chronic Other nervous system disorders (3 sources) H/O: RN MANAGED CARE disorder; Translations: [Personal history of other diseases of the nervous system and sense organs] 05-01-2024 Episodic Other nervous system disorders (3 sources) Acute postoperative pain; Translations: [Other acute postprocedural pain] Onset: 5 03-28-2025 Episodic Other nervous system disorders (6 sources) Postoperative pain ; Translations: [Other acute postprocedural pain] 05-22-2025 Episodic Other nervous system disorders (1 source) Other acute postprocedural pain; Translations: [Other acute postprocedural pain] Onset: 5 Episodic Other nutritional; endocrine; and metabolic disorders (20 sources) Morbid obesity; Translations: [Morbid (severe) obesity due to excess calories] Onset: 3 Chronic Other nutritional; endocrine; and metabolic disorders (20 sources) Body mass index 40+ - severely obese; Translations: [Morbid (severe) obesity due to excess calories] Onset: 3 Resolved: 5 03-12-2023 Chronic Other nutritional; endocrine; and metabolic disorders (3 sources) Obesity caused by energy imbalance; Translations: [Other obesity due to excess calories] Onset: 4 11-20-2024 Chronic Other nutritional; endocrine; and metabolic disorders (3 sources) Morbid (severe) obesity due to excess calories; Translations: [Morbid obesity with BMI of 40.0-44.9, adult ([facility])] Onset: 3 Chronic Other nutritional; endocrine; and metabolic disorders (3 sources) Body mass index (BMI) 40.0-44.9, adult; Translations: [Morbid obesity with BMI of 40.0-44.9, adult ([facility])] Onset: 3 Chronic Other screening for suspected conditions (not mental disorders or infectious disease) (1 source) Encounter for screening mammogram for malignant neoplasm of breast; Translations: [Encounter for screening mammogram for malignant neoplasm of breast] Onset: 5 Episodic Residual codes; unclassified (1 source) Obstructive sleep apnea (adult) (pediatric); Translations: [JACK (obstructive sleep apnea)] Onset: 4 Chronic Residual codes; unclassified (2 sources) Past history of procedure; Translations: [Other specified postprocedural states] 03-28-2025 Episodic Residual codes; unclassified (2 sources) Other specified postprocedural states; Translations: [Other specified postprocedural states] Onset: 5 Episodic Spondylosis; intervertebral disc disorders; other back problems (20 sources) Backache; Translations: [Dorsalgia, unspecified] Onset: 3 09-17-2022 Episodic Unclassified (1 source) Vaginal Problem Onset: 4 Unclassified (4 sources) History of Krystal-en-Y gastric bypass; Translations: [Z98.84 - Bariatric surgery status] Unclassified (1 source) Headaches; Translations: [Headaches] Onset: 3 Unclassified (1 source) Low back pain, unspecified; Translations: [Low back pain, unspecified] Onset: 5 Past or Other Problems Problem Classification Problem Date Documented Da te Episodic/Chronic Blindness and vision defects (9 sources) Localized visual field defect; Translations: [Other localized visual field defect, bilateral] Onset: 10-02-2024 Episodic Gastritis and duodenitis (6 sources) Bile-induced gastritis; Translations: [Other gastritis without bleeding] Onset: 03-01-2025 02-09-2025 Episodic Headache; including migraine (20 sources) Headache; Translations: [Headaches] Onset: 03-15-2023 09-17-2022 Episodic Other aftercare (20 sources) Marijuana user; Translations: [Other usp (current) drug therapy] Onset: 04-01-2023 Episodic Other aftercare (20 sources) Vascular disorder; Translations: [Encounter for adjustment and management of vascular access device] Onset: 06-15-2023 Episodic Other aftercare (1 source) Other termite technician (current) drug therapy; Translations: [Medical marijuana use] Onset: 04-01-2023 Episodic Other connective tissue disease (1 source) Pain in left leg; Translations: [Pain of left lower extremity] Onset: 02-20-2024 Episodic Other gastrointestinal disorders (20 sources) History of bypass of stomach; Translations: [Bariatric surgery status] Onset: 04-01-2023 Episodic Other gastrointestinal disorders (1 source) Constipation, unspecified; Translations: [Constipation, unspecified] Onset: 10-06-2024 Episodic Other gastrointestinal disorders (3 sources) Bariatric surgery status; Translations: [S/P gastric bypass] Onset: 04-01-2023 Episodic Other nervous system disorders (1 source) Personal history of other diseases of the nervous system and sense organs; Translations: [History of papilledema] Onset: 07-12-2024 Episodic Ovarian cyst (13 sources) Hemorrhagic cyst of ovary; Translations: [Unspecified ovarian cyst, left side] Onset: 02-11-2025 02-11-2025 Episodic Residual codes; unclassified (14 sources) Obstructive sleep apnea syndrome; Translations: [Obstructive sleep apnea (adult) (pediatric)] Onset: 04-26-2012 Resolved: 01-15-2025 10-26-2024 Chronic Residual codes; unclassified (20 sources) Difficult venous access; Translations: [Other specified health status] Onset: 02-16-2023 Episodic Residual codes; unclassified (1 source) Other specified health status; Translations: [Difficult intravenous access] Onset: 02-16-2023 Episodic Syncope (2 sources) Syncope and collapse; Translations: [Syncope and collapse] Onset: 02-15-2025 Episodic Unclassified (1 source) Low back pain, unspecified; Translations: [Low back pain, unspecified] Onset: 05-03-2025 Results Test Name Value Interpretation Reference Range Facility ED Provider Noteon ED Provider Note Normal [facility] US.doppler Lower extremity v ein - righton 06-18-2025 No evidence of deep vein or superficial vein thrombosis in the right lower extremity. Vessels demonstrate normal compressibility, color filling, and phasic and spontaneous flow. Contralateral imaging of the left common femoral vein was normal. Study Details A howell scale, color Doppler imaging and spectral Doppler analysis ultrasound was performed. During the study longitudinal and transverse views were obtained. Pulsed wave doppler was performed. The exam was performed with the patient in the supine position. Overall the study quality was adequate. Study was technically difficult due to: body habitus. Right Lower Venous No evidence of deep vein or superficial vein thrombosis. The common femoral, saphenofemoral junction, femoral, popliteal, gastrocnemius, soleal, greater saphenous, posterior tibial, and peroneal veins were imaged in the transverse view and showed normal compressibility. The common femoral, middle femoral, and popliteal veins were imaged in the longitudinal view and showed normal color filling and normal phasic and spontaneous flow. Left Lower Venous For comparison purposes, the left common femoral vein was briefly interrogated. These vein demonstrates normal color filing and compressibility. Doppler flow was phasic and spontaneous. Preliminary Report Preliminary report called to Melchor Miller PA-C in ED on 06/18/2025 at 12:40 EDT. CV CPACS Progress Noteon 06-14-2025 Progress Note Normal [facility] 30on 06-08-2025 30 Normal [facility] [id number] 06-08-2025 [id number] Normal [facility] CBC W Auto Differential pane l (Bld)on 06-08-2025 Basophils (Bld) [#/Vol] 0.1 10*3/uL 0.0 - 0.2 10*3/uL [facility] Basophils/100 WBC (Bld) 1.1 % 0.0 - 2.0 % [facility] Eosinophils (Bld) [#/Vol] 0.2 10*3/uL 0.0 - 0.5 10*3/uL [facility] Eosinophils/100 WBC (Bld) 4.5 % 0.0 - 6.0 % [facility] Erythrocyte distribution width (RBC) [Ratio] 13.2 % 11.5 - 15.0 % [facility] Hematocrit (Bld) [Volume fraction] 38 % 35.0 - 47.0 % [facility] Hemoglobin (Bld) [Mass/Vol] 12.2 g/dL 11.7 - 16.0 g/dL [facility] Immature granulocytes (Bld) [#/Vol] 0 10*3/uL NINF - 0.1 10*3/uL [facility] Immature granulocytes/100 WBC (Bld) 0.5 % 0.0 - 2.0 % [facility] Interpretation and review of laboratory results Normal [facility] Lymphocytes (Bld) [#/Vol] 1.8 10*3/uL 1.0 - 4.3 10*3/uL [facility] Lymphocytes/100 WBC (Bld) 41.3 % 15.0 - 45.0 % [facility] MCH (RBC) [Entitic mass] 30.5 pg 26. 0 - 34.0 pg [facility] MCHC (RBC) [Mass/Vol] 32.1 % 30.5 - 36.0 % [facility] MCV (RBC) [Entitic vol] 95 fL 77.0 - 99.0 fL [facility] Monocytes (Bld) [#/Vol] 0.4 10*3/uL 0.0 - 0.9 10*3/uL [facility] Monocytes/100 WBC (Bld) 7.9 % 5.0 - 13.0 % [facility] Neutrophils (Bld) [#/Vol] 2 10*3/uL 1.8 - 7.5 10*3/uL [facility] Neutrophils/100 WBC (Bld) 44.7 % 38.0 - 82.0 % [facility] Nucleated RBC/100 WBC (Bld) [Ratio] 0 % [facility] Platelet mean volume (Bld) [Entitic vol] 11 fL 9.0 - 12.7 fL [facility] Platelets (Bld) [#/Vol] 184 10*3/uL 140 - 440 10*3/uL [facility] RBC (Bld) [#/Vol] 4 10*6/uL 3.80 - 5.2 0 10*6/uL [facility] WBC (Bld) [#/Vol] 4.4 10*3/uL 3.6 - 10.7 10*3/uL [facility] CBC WITH AUTO DIFFERENTIALon 06-08-2025 Basophils (Bld) [#/Vol] 0.1 10*3/uL Normal 0.0-0.2 [facility] Comment on above: Performed By: #### L [id number] ####Rn Eligibility: AMANDA SNYDER ([id number])[facility] ([facility])[address] [place] [address] Basophils/100 WBC (Bld) 1.1 % Normal 0.0-2.0 [facility] Comment on above: Performed By: #### L [id number] ####Rn Eligibility: AMANDA SNYDER ([phone])[facility] ([facility])[address] [place] [address] Eosinophils (Bld) [#/Vol] 0.2 10*3/uL Normal 0.0-0.5 [facility] Comment on above: Performed By: #### L [id number] ####Rn Eligibility: AMANDA SNYDER ([phone])[facility])[address] [place] [address] Eosinophils/100 WBC (Bld) 4.5 % Normal 0.0-6.0 [facility] Comment on above: Performed By: #### L [id number] ####Rn Eligibility: AMANDA SNYDER ([id number])[facility])[address] [place] [address] Erythrocyte distribution width (RBC) [Ratio] 13.2 % Normal 11.5-15.0 [facility] Comment on above: Performed By: #### L [id number] ####Rn Eligibility: AMANDA SNYDER ([id number])[facility])[address] [place] [address] Hematocrit (Bld) [Volume fraction] 38.0 % Normal 35.0-47.0 [facility] Comment on above: Performed By: #### L [id number] ####Rn Eligibility: AMANDA SNYDER ([phone])[facility])[address] [place] [address] Hemoglobin (Bld) [Mass/Vol] 12.2 g/dL Normal 11.7-16.0 [facility] Comment on above: Performed By: #### L [id number] ####Rn Eligibility: AMANDA SNYDER ([id number])[facility])[address] [place] [address] IMMATURE GRANS % 0.5 % Normal 0.0-2.0 [facility] Comment on above: Performed By: #### L [id number] ####Rn Eligibility: AMANDA SNYDER ([phone])[facility])[address] [place] [address] IMMATURE GRANS ABSOLUTE 0.0 10*3/uL Normal <0.1 [facility] Comment on above: Performed By: #### L [id number] ####Rn Eligibility: AMANDA SNYDER ([phone])[facility])[address] [place] [address] Lymphocytes (Bld) [#/Vol] 1.8 10*3/uL Normal 1.0-4.3 [facility] Comment on above: Performed By: #### L [id number] ####Rn Eligibility: AMANDA SNYDER ([id number])[facility])[address] [place] [address] Lymphocytes/100 WBC (Bld) 41.3 % Normal 15.0-45.0 [facility] Comment on above: Performed By: #### L [id number] ####Rn Eligibility: AMANDA SNYDER ([id number])[facility])[address] [place] [address] MCH (RBC) [Entitic mass] 30.5 pg Normal 26.0-34.0 [facility] Comment on above: Performed By: #### L [id number] ####Rn Eligibility: AMANDA SNYDER ([id number])[facility])[address] [place] [address] MCHC 32.1 % Normal 30.5-36.0 [facility] Comment on above: Performed By: #### L [id number] ####Rn Eligibility: AMANDA SNYDER ([id number])[facility])[address] [place] [address] MCV (RBC) [Entitic vol] 95.0 fL Normal 77.0-99.0 [facility] Comment on above: Performed By: #### L [id number] ####Rn Eligibility: AMANDA SNYDER ([id number])[facility])[address] [place] [address] Monocytes (Bld) [#/Vol] 0.4 10*3/uL Normal 0.0-0.9 [facility] Comment on above: Performed By: #### L [id number] ####Rn Eligibility: AMANDA SNYDER ([id number])[facility])[address] [place] [address] Monocytes/100 WBC (Bld) 7.9 % Normal 5.0-13.0 [facility] Comment on above: Performed By: #### L [id number] ####Rn Eligibility: AMANDA SNYDER ([phone])[facility])[address] [place] [address] NEUTROPHILS ABSOLUTE 2.0 10*3/uL Normal 1.8-7.5 [facility] Comment on above: Performed By: #### L [id number] ####Rn Eligibility: AMANDA SNYDER ([id number])[facility])[address] [place] [address] Neutrophils/100 WBC (Bld) 44.7 % Normal 38.0-82.0 [facility] Comment on above: Performed By: #### L [id number] ####Rn Eligibility: AMANDA SNYDER ([phone])[facility])[address] [place] [address] NRBC 0.0 /100 WBCs Normal 0.0-2.0 [facility] Comment on above: Performed By: #### L [id number] ####Rn Eligibility: AMANDA SNYDER ([id number])[facility])[address] [place] [address] Platelet mean volume (Bld) [Entitic vol] 11.0 fL Normal 9.0-12.7 [facility] Comment on above: Performed By: #### L [id number] ####Rn Eligibility: AMANDA SNYDER ([phone])[facility])[address] [place] [address] Platelets (Bld) [#/Vol] 184 10*3/uL Normal 140-440 [facility] Comment on above: Performed By: #### L [id number] ####Rn Eligibility: AMANDA SNYDER ([id number])[facility])[address] [place] [address] RBC (Bld) [#/Vol] 4.00 10*6/uL Normal 3.80-5.20 [facility] Comment on above: Performed By: #### L [id number] ####Rn Eligibility: AMANDA SNYDER ([id number])[facility])[address] [place] [address] WBC (Bld) [#/Vol] 4.4 10*3/uL Normal 3.6-10.7 [facility] Comment on above: Performed By: #### L [id number] ####Rn Eligibility: AMANDA SNYDER ([id number])[facility])[address] [place] [address] COMPREHENSIVE METABOLIC PANE Kj 06-08-2025 Albumin [Mass/Vol] 3.2 g/dL Low 3.5-5.0 [facility] Comment on above: Performed By: #### L [id number] ####Rn Eligibility: AMANDA SNYDER ([id number])[facility])[address] [place] [address] ALP [Catalytic activity/Vol] 89 U/L Normal 40-150 [facility] Comment on above: Performed By: #### L [id number] ####Rn Eligibility: AMANDA SNYDER ([id number])[facility] [facility] [place] [address] ALT [Catalytic activity/Vol] 21 U/L Normal <30 [facility] Comment on above: Performed By: #### L [id number] ####Rn Eligibility: AMANDA SNYDER ([phone])[facility] ([facility])[address] [place] [address] Anion gap [Moles/Vol] 6 mmol/L Normal 3-13 [facility] Comment on above: Performed By: #### L [id number] ####Rn Eligibility: AMANDA SNYDER ([phone])[facility] ([facility])[address] [place] [address] AST [Catalytic activity/Vol] 34 U/L High <34 [facility] Comment on above: Performed By: #### L [id number] ####Rn Eligibility: AMANDA SNYDER ([phone])[facility] ([facility])[address] [place] [address] Bilirubin [Mass/Vol] 0.6 mg/dL Normal <1.2 [facility] Comment on above: Performed By: #### L [id number] ####Rn Eligibility: AMANDA SNYDER ([phone])[facility] ([facility])[address] [place] [address] Calcium [Mass/Vol] 8.1 mg/dL Low 8.4-10.2 [facility] Comment on above: Performed By: #### L [id number] ####Rn Eligibility: AMANDA SNYDER ([phone])[facility] ([facility])[address] [place] [address] [place] Chloride [Moles/Vol] 107 mmol/L Normal 98-107 [facility] Comment on above: Performed By: #### L [id number] ####Rn Eligibility: AMANDA SNYDER ([phone])[facility] ([facility])[address] [place] [address] [place] CO2 [Moles/Vol] 28 mmol/L Normal 22-29 [facility] Comment on above: Performed By: #### L [id number] ####Rn Eligibility: AMANDA SNYDER ([phone])[facility] ([facility])[address] [place] [address] Creatinine [Mass/Vol] 0.71 mg/dL Normal 0.57-1.11 [facility] Comment on above: Performed By: #### L [id number] ####Rn Eligibility: AMANDA SNYDER ([phone])[facility])[address] [place] [address] GLOMERULAR FILTRATION RATE ML/MIN/1.73 SQ M.PREDICTED >90.0 Normal >60.0 [facility] Comment on above: Result Comment: Calc ulation based on the Chronic Kidney Disease Epidemiology Collaboration (CKD-EPI) equation refit without adjustment for race Performed By: #### L [id number] ####Rn Eligibility: AMANDA SNYDER ([phone])[facility] ([facility])[address] [place] [address] Glucose [Mass/Vol] 79 mg/dL Normal 74-100 [facility] Comment on above: Performed By: #### L [id number] ####Rn Eligibility: AMANDA SNYDER ([phone])[facility])[address] [place] [address] Potassium [Moles/Vol] 4.1 mmol/L Normal 3.5-5.1 [facility] Comment on above: Result Comment: [facility] potassium values may be up to 0.5 mmol/L lower than serum values. Performed By: #### L [id number] ####Rn Eligibility: AMANDA SNYDER ([phone])[facility] ([facility])[address] [place] [address] Protein [Mass/Vol] 5.6 g/dL Low 6.4-8.3 [facility] Comment on above: Performed By: #### L [id number] ####Rn Eligibility: AMANDA SNYDER ([phone])[facility] ([facility])[address] [place] [address] [place] Sodium [Moles/Vol] 141 mmol/L Normal 136-145 [facility] Comment on above: Performed By: #### L [id number] ####Rn Eligibility: AMANDA SNYDER ([phone])[facility] [place] [address] Urea nitrogen [Mass/Vol] 5 mg/dL Low 8-21 [facility] Comment on above: Performed By: #### L [id number] ####Rn Eligibility: AMANDA SNYDER ([phone])[facility] ([facility])[address] [place] [address] Comprehensive metabolic 1998 panelon 06-08-2025 Albumin [Mass/Vol] 3.2 g/dL Low 3.5 - 5.0 g/dL [facility] ALP [Catalytic activity/Vol] 89 U/L 40 - 150 U/L [facility] ALT [Catalytic activity/Vol] 21 U/L NINF - 30 U/L [facility] Anion gap [Moles/Vol] 6 mmol/L 3 - 13 mmol/L [facility] AST [Catalytic activity/Vol] 34 U/L High NINF - 34 U/L [facility] Bilirubin [Mass/Vol] 0.6 mg/dL NINF - 1.2 mg/dL [facility] Calcium [Mass/Vol] 8.1 mg/dL Low 8.4 - 10. 2 mg/dL [facility] Chloride [Moles/Vol] 107 mmol/L 98 - 10 7 mmol/L [facility] CO2 [Moles/Vol] 28 mmol/L 22 - 29 mmol/L [facility] Creatinine [Mass/Vol] 0.71 mg/dL 0.57 - 1.11 mg/dL [facility] GFR/1.73 sq M.predicted (S/P/Bld) [Vol rate/Area] - PINF [facility] Comment on above: Calculation based on the Chronic Kidney Disease Epidemiology Collaboration (CKD-EPI) equation refit without adjustment for race Glucose [Mass/Vol] 79 mg/dL 74 - 100 mg/dL [facility] Interpretation and review of laboratory results Abnormal [facility] Potassium [Moles/Vol] 4.1 mmol/L 3.5 - 5.1 mmol/L [facility] Comment on above: Plasma potassium cami ues may be up to 0.5 mmol/L lower than serum values. Protein [Mass/Vol] 5.6 g/dL Low 6.4 - 8.3 g/dL [facility] Sodium [Moles/Vol] 141 mmol/L 136 - 145 mmol/L [facility] Urea nitrogen [Mass/Vol] 5 mg/dL Low 8 - 21 mg/dL [facility] Nursing Noteon 06-08-2025 Nursing Note Normal [facility] PORPHYRINS, FRACTIONATED, QU ANTITATIVE, RANDOM URINE (BKR [facility])on 06-08-2025 [facility] COPROPORPHYRIN I 20.5 Normal 6.5-33.2 [facility] Comment on above: Result Comment: Unit s: mcg/g creat Performed By: #### L [id number] ####[facility] ([employer]ellow[employer]mer)[address] [place], [place] [facility] COPROPORPHYRIN III 52.1 Normal 4.8-88.6 [facility] Comment on above: Result Comment: Unit s: mcg/g creat Performed By: #### L [id number] ####[facility] ([employer])[address] [facility] [place], [place] [employer] [facility] HEPTACARBOXYPORPHYRIN SEE BELOW Normal < OR = 3.4 [facility] Comment on above: Result Comment: Unit s: mcg/g creatResult is below reportable range for this analyte. Performed By: #### L [id number] ####[facility] ([employer])[address] [facility] [place] [employer] [employer] [facility] HEXACARBOXYPORPHYRIN SEE BELOW Normal < OR = 6.3 [facility] Comment on above: Result Comment: Unit s: mcg/g creatResult is below reportable range for this analyte. Performed By: #### L [id number] ####[facility] ([employer])[address] [facility] [place] [employer] [facility] INTERPRETATION SEE BELOW Normal [facility] Comment on above: Result Comment: IN T HIS URINE SAMPLE, ONE OR MORE PORPHYRINS WEREMINIMALLY ELEVATED IN A PATTERN NOT CONSISTENTWITH A PORPHYRIA. THESE RESULTS MAY REPRESENT ADRUG OR DIETARY ARTIFACT.KEEP IN MIND THAT PORPHYRINS LEVELS ARE AFFECTEDBY STRESSORS OF THE HEME PATHWAY INCLUDINGMEDICATIONS METABOLIZED VIA CYTOCHROME P450 (MOSTCOMMONLY SULFONAMIDES, AMINOPYRINE,ANTICONVULSANTS AND BARBITURATES), PHYSIOLOGICSTEROIDS, ANEMIA, HEAVY METAL INTOXICATION,ETHANOL INGESTION OR LIVER DISEASE.THIS TEST MAY NOT DETECT ELEVATED PORPHYRINS IFTHE PATIENT IS ASYMPTOMATIC OR IS UNDERGOINGTREATMENT.Interpretation reviewed by: Andra Lackey, Ph.D.,[facility].IF THE ORDERING/TREATING PHYSICIAN HAS ANYQUESTIONS REGARDING THESE RESULTS, PLEASE CONTACTTHE [employer] AT ext [phone] or ext [phone] ASK TO SPEAK WITH THE OFFICE PROFESSIONAL MAEGAN. FOR GENERAL QUESTIONS ABOUT [employer] GENETIC TESTING, PLEASE CALL THE [employer] LINE AT [phone] EasyINFO.For additional information, please refer [email or web address](This link is being provided forinformational/educational purposes only.)This test was developed and its analyticalperformance characteristics have been determinedby [employer]. It has not been cleared orapproved by the FDA. This assay has been validatedpursuant to the CLIA regulations and is used forclinical purposes.Test performed by [facility] [place] [id number] Vjohiad Director: Sri Estrada MD,PHD,MBATest Reported by [facility],[employer] [facility],[address] [place] [id number] Chisholm M.D., Ph.D., Director of [phone], CLIA [id number] Performed By: #### L [id number] ####[facility] (AMDBEAKER)[address] [place] [facility] PENTACARBOXYPORPHYRIN 2.6 Normal < OR = 4.1 [facility] Comment on above: Result Comment: Unit s: mcg/g creat Performed By: #### L [id number] ####[facility] (AMDBEAKER)[address] [place] [facility] [employer] TOTAL PORPHYRINS 96.0 Normal 27.0-153.6 [facility] Comment on above: Result Comment: Unit s: mcg/g creat Performed By: #### L [id number] ####[facility] (AMDBEAKER)[address] [place] [facility] UROPORPHYRIN I 14.3 Normal 3.6-21.1 [facility] Comment on above: Result Comment: Unit s: mcg/g creat Performed By: #### L [id number] ####[facility] ([employer])[address] [place], [place] [facility] UROPORPHYRIN III 6.5 High < OR = 5.6 [facility] Comment on above: Result Comment: Unit s: mcg/g creat Performed By: #### L [id number] ####[facility] ([employer])[address] [place] [facility] Progress Noteon 06-08-2025 Progress Note [facility] Progress Note Normal [facility] 30on 06-07-2025 30 Seen in the morning while doing SBFT. Nausea is less but still has abdominal pain . Doesn't think Ozempic causing her symptoms because helped her intracranial pressure. Will follow. Normal [facility] CBC W Auto Differential pane l (Bld)on 06-07-2025 Basophils (Bld) [#/Vol] 0 10*3/uL 0.0 - 0.2 10*3/uL [facility] Basophils/100 WBC (Bld) 0.9 % 0.0 - 2.0 % [facility] Eosinophils (Bld) [#/Vol] 0.1 10*3/uL 0.0 - 0.5 10*3/uL [facility] Eosinophils/100 WBC (Bld) 2.9 % 0.0 - 6.0 % [facility] Erythrocyte distribution width (RBC) [Ratio] 13.4 % 11.5 - 15.0 % [facility] Hematocrit (Bld) [Volume fraction] 35.8 % 35.0 - 47.0 % [facility] Hemoglobin (Bld) [Mass/Vol] 11.5 g/dL Low 11.7 - 16.0 g/dL [facility] Immature granulocytes (Bld) [#/Vol] 0 10*3/uL NINF - 0.1 10*3/uL [facility] Immature granulocytes/100 WBC (Bld) 0.2 % 0.0 - 2.0 % [facility] Interpretation and review of laboratory results Abnormal [facility] Lymphocytes (Bld) [#/Vol] 1.9 10*3/uL 1.0 - 4.3 10*3/uL [facility] Lymphocytes/100 WBC (Bld) 42.3 % 15.0 - 45.0 % [facility] MCH (RBC) [Entitic mass] 30.7 pg 26. 0 - 34.0 pg [facility] MCHC (RBC) [Mass/Vol] 32.1 % 30.5 - 36.0 % [facility] MCV (RBC) [Entitic vol] 95.7 fL 77.0 - 99.0 fL [facility] Monocytes (Bld) [#/Vol] 0.3 10*3/uL 0.0 - 0.9 10*3/uL [facility] Monocytes/100 WBC (Bld) 7 % 5.0 - 13.0 % [facility] Neutrophils (Bld) [#/Vol] 2.1 10*3/uL 1.8 - 7.5 10*3/uL [facility] Neutrophils/100 WBC (Bld) 46.7 % 38.0 - 82.0 % [facility] Nucleated RBC/100 WBC (Bld) [Ratio] 0 % [facility] Platelet mean volume (Bld) [Entitic vol] 11.4 fL 9.0 - 12.7 fL [facility] Platelets (Bld) [#/Vol] 185 10*3/uL 140 - 440 10*3/uL [facility] RBC (Bld) [#/Vol] 3.74 10*6/uL Low 3.80 - 5.2 0 10*6/uL [facility] WBC (Bld) [#/Vol] 4.6 10*3/uL 3.6 - 10.7 10*3/uL [facility] CBC WITH AUTO DIFFERENTIALon 06-07-2025 Basophils (Bld) [#/Vol] 0.0 10*3/uL Normal 0.0-0.2 [facility] Comment on above: Performed By: #### L [id number] ####Rn Eligibility: AMANDA SNYDER ([phone])[facility])[address] [place] [address] Basophils/100 WBC (Bld) 0.9 % Normal 0.0-2.0 [facility] Comment on above: Performed By: #### L [id number] ####Rn Eligibility: AMANDA SNYDER ([phone])[facility])[address] [place] [address] Eosinophils (Bld) [#/Vol] 0.1 10*3/uL Normal 0.0-0.5 [facility] Comment on above: Performed By: #### L [id number] ####Rn Eligibility: AMANDA SNYDER ([phone])[facility])[address] [place] [address] Eosinophils/100 WBC (Bld) 2.9 % Normal 0.0-6.0 [facility] Comment on above: Performed By: #### L [id number] ####Rn Eligibility: AMANDA SNYDER ([phone])[facility])[address] [place] [address] Erythrocyte distribution width (RBC) [Ratio] 13.4 % Normal 11.5-15.0 [facility] Comment on above: Performed By: #### L [id number] ####Rn Eligibility: AMANDA SNYDER ([phone])[facility])[address] [place] [address] Hematocrit (Bld) [Volume fraction] 35.8 % Normal 35.0-47.0 [facility] Comment on above: Performed By: #### L [id number] ####Rn Eligibility: AMANDA SNYDER ([phone])[facility])[address] [place] [address] Hemoglobin (Bld) [Mass/Vol] 11.5 g/dL Low 11.7-16.0 [facility] Comment on above: Performed By: #### L [id number] ####Rn Eligibility: AMANDA SNYDER ([phone])[facility])[address] [place] [address] IMMATURE GRANS % 0.2 % Normal 0.0-2.0 [facility] Comment on above: Performed By: #### L [id number] ####Rn Eligibility: AMANDA SNYDER ([phone])[facility])[address] [place] [address] IMMATURE GRANS ABSOLUTE 0.0 10*3/uL Normal <0.1 [facility] Comment on above: Performed By: #### L [id number] ####Rn Eligibility: AMANDA SNYDER ([phone])[facility])[address] [place] [address] Lymphocytes (Bld) [#/Vol] 1.9 10*3/uL Normal 1.0-4.3 [facility] Comment on above: Performed By: #### L [id number] ####Rn Eligibility: AMANDA SNYDER ([phone])[address] Lymphocytes/100 WBC (Bld) 42.3 % Normal 15.0-45.0 [facility] Comment on above: Performed By: #### L [id number] ####Rn Eligibility: AMANDA SNYDER ([phone])[facility])[address] [place] [address] MCH (RBC) [Entitic mass] 30.7 pg Normal 26.0-34.0 [facility] Comment on above: Performed By: #### L [id number] ####Rn Eligibility: AMANDA SNYDER ([phone])[address] MCHC 32.1 % Normal 30.5-36.0 [facility] Comment on above: Performed By: #### L [id number] ####Rn Eligibility: AMANDA SNYDER ([phone])[address] MCV (RBC) [Entitic vol] 95.7 fL Normal 77.0-99.0 [facility] Comment on above: Performed By: #### L [id number] ####Rn Eligibility: AMANDA SNYDER ([phone])[facility])[address] [place] [address] Monocytes (Bld) [#/Vol] 0.3 10*3/uL Normal 0.0-0.9 [facility] Comment on above: Performed By: #### L [id number] ####Rn Eligibility: AMANDA SNYDER ([phone])[facility])[address] [place] [address] Monocytes/100 WBC (Bld) 7.0 % Normal 5.0-13.0 [facility] Comment on above: Performed By: #### L [id number] ####Rn Eligibility: AMANDA SNYDER ([phone])[facility] ([facility])[address] [place] [address] NEUTROPHILS ABSOLUTE 2.1 10*3/uL Normal 1.8-7.5 [facility] Comment on above: Performed By: #### L [id number] ####Rn Eligibility: AMANDA SNYDER ([phone])[facility])[address] [place] [address] Neutrophils/100 WBC (Bld) 46.7 % Normal 38.0-82.0 [facility] Comment on above: Performed By: #### L [id number] ####Rn Eligibility: AMANDA SNYDER ([phone])[facility])[address] [place] [address] NRBC 0.0 /100 WBCs Normal 0.0-2.0 [facility] Comment on above: Performed By: #### L [id number] ####Rn Eligibility: AMANDA SNYDER ([phone])[facility])[address] [place] [address] Platelet mean volume (Bld) [Entitic vol] 11.4 fL Normal 9.0-12.7 [facility] Comment on above: Performed By: #### L [id number] ####Rn Eligibility: AMANDA SNYDER ([phone])[facility])[address] [place] [address] Platelets (Bld) [#/Vol] 185 10*3/uL Normal 140-440 [facility] Comment on above: Performed By: #### L [id number] ####Rn Eligibility: AMANDA SNYDER ([phone])[facility])[address] [place] [address] RBC (Bld) [#/Vol] 3.74 10*6/uL Low 3.80-5.20 [facility] Comment on above: Performed By: #### L [id number] ####Rn Eligibility: AMANDA SNYDER ([phone])[facility])[address] [place] [address] WBC (Bld) [#/Vol] 4.6 10*3/uL Normal 3.6-10.7 [facility] Comment on above: Performed By: #### L [id number] ####Rn Eligibility: AMANDA SNYDER ([phone])[facility])[address] [place] [address] COMPREHENSIVE METABOLIC PANE Kj 06-07-2025 Albumin [Mass/Vol] 3.1 g/dL Low 3.5-5.0 [facility] Comment on above: Performed By: #### L [id number] ####Rn Eligibility: AMANDA SNYDER ([phone])[facility])[address] [place] [address] ALP [Catalytic activity/Vol] 79 U/L Normal 40-150 [facility] Comment on above: Performed By: #### L [id number] ####Rn Eligibility: AMANDA SNYDER ([phone])[facility])[address] [place] [address] ALT [Catalytic activity/Vol] 21 U/L Normal <30 [facility] Comment on above: Performed By: #### L [id number] ####Rn Eligibility: AMANDA SNYDER ([phone])[facility])[address] [place] [address] [place] Anion gap [Moles/Vol] 8 mmol/L Normal 3-13 [facility] Comment on above: Performed By: #### L [id number] ####Rn Eligibility: AMANDA SNYDER ([phone])[facility] ([facility])[address] [place] [address] AST [Catalytic activity/Vol] 29 U/L Normal <34 [facility] Comment on above: Performed By: #### L [id number] ####Rn Eligibility: AMANDA SNYDER ([phone])[facility])[address] [place] [address] Bilirubin [Mass/Vol] 0.5 mg/dL Normal <1.2 [facility] Comment on above: Performed By: #### L [id number] ####Rn Eligibility: AMANDA SNYDER ([phone])[facility] ([facility])[address] [place] [address] Calcium [Mass/Vol] 7.8 mg/dL Low 8.4-10.2 [facility] Comment on above: Performed By: #### L [id number] ####Rn Eligibility: AMANDA SNYDER ([id number])[facility] ([facility])[address] [place] [address] [place] Chloride [Moles/Vol] 106 mmol/L Normal 98-107 [facility] Comment on above: Performed By: #### L [id number] ####Rn Eligibility: AMANDA SNYDER ([phone])[facility] ([facility])[address] [place] [address] [place] CO2 [Moles/Vol] 24 mmol/L Normal 22-29 [facility] Comment on above: Performed By: #### L [id number] ####Rn Eligibility: AMANDA SNYDER ([phone])[facility] ([facility])[address] [place] [address] [place] Creatinine [Mass/Vol] 0.65 mg/dL Normal 0.57-1.11 [facility] Comment on above: Performed By: #### L [id number] ####Rn Eligibility: AMANDA SNYDER ([phone])[facility])[address] [place] [address] GLOMERULAR FILTRATION RATE ML/MIN/1.73 SQ M.PREDICTED >90.0 Normal >60.0 [facility] Comment on above: Result Comment: Calc ulation based on the Chronic Kidney Disease Epidemiology Collaboration (CKD-EPI) equation refit without adjustment for race Performed By: #### L [id number] ####Rn Eligibility: AMANDA SNYDER ([phone])[facility])[address] [place] [address] Glucose [Mass/Vol] 68 mg/dL Low 74-100 [facility] Comment on above: Performed By: #### L [id number] ####Rn Eligibility: AMANDA SNYDER ([phone])[address] Potassium [Moles/Vol] 3.8 mmol/L Normal 3.5-5.1 [facility] Comment on above: Result Comment: [facility] potassium values may be up to 0.5 mmol/L lower than serum values. Performed By: #### L [id number] ####Rn Eligibility: AMANDA SNYDER ([phone])[facility])[address] [place] [address] Protein [Mass/Vol] 5.5 g/dL Low 6.4-8.3 [facility] Comment on above: Performed By: #### L [id number] ####Rn Eligibility: AMANDA SNYDER ([phone])[facility])[address] [place] [address] [place] Sodium [Moles/Vol] 138 mmol/L Normal 136-145 [facility] Comment on above: Performed By: #### L [id number] ####Rn Eligibility: AMANDA SNYDER ([phone])[address] Urea nitrogen [Mass/Vol] 5 mg/dL Low 8-21 [facility] Comment on above: Performed By: #### L AB17 ####Rn Eligibility: AMANDA SNYDER ([phone])[facility])[address] [place], [place] [id number] [facility] Comprehensive metabolic 1998 panelon 06-07-2025 Albumin [Mass/Vol] 3.1 g/dL Low 3.5 - 5.0 g/dL [facility] ALP [Catalytic activity/Vol] 79 U/L 40 - 150 U/L [facility] ALT [Catalytic activity/Vol] 21 U/L NINF - 30 U/L [facility] Anion gap [Moles/Vol] 8 mmol/L 3 - 13 mmol/L [facility] AST [Catalytic activity/Vol] 29 U/L NINF - 34 U/L [facility] Bilirubin [Mass/Vol] 0.5 mg/dL NINF - 1.2 mg/dL [facility] Calcium [Mass/Vol] 7.8 mg/dL Low 8.4 - 10. 2 mg/dL [facility] Chloride [Moles/Vol] 106 mmol/L 98 - 10 7 mmol/L [facility] CO2 [Moles/Vol] 24 mmol/L 22 - 29 mmol/L [facility] Creatinine [Mass/Vol] 0.65 mg/dL 0.57 - 1.11 mg/dL [facility] GFR/1.73 sq M.predicted (S/P/Bld) [Vol rate/Area] - PINF [facility] Comment on above: Calculation based on the Chronic Kidney Disease Epidemiology Collaboration (CKD-EPI) equation refit without adjustment for race Glucose [Mass/Vol] 68 mg/dL Low 74 - 100 mg/dL [facility] Interpretation and review of laboratory results Abnormal [facility] Potassium [Moles/Vol] 3.8 mmol/L 3.5 - 5.1 mmol/L [facility] Comment on above: Plasma potassium cami ues may be up to 0.5 mmol/L lower than serum values. Protein [Mass/Vol] 5.5 g/dL Low 6.4 - 8.3 g/dL [facility] Sodium [Moles/Vol] 138 mmol/L 136 - 145 mmol/L [facility] Urea nitrogen [Mass/Vol] 5 mg/dL Low 8 - 21 mg/dL [facility] Progress Noteon 06-07-2025 Progress Note Normal [facility] Progress Note Nutrition rescreen completed. Patient referred to the Dietitian. Patient is NPO/CL > 3 days. BRANDON Ortiz Normal [facility] Progress Note Normal [facility] RF Small bowel Views W contr ast Oleg 06-07-2025 Dilated loops of sma ll bowel of uncertain etiology with transit time of 2.5 hours. Report Dictated on Electronically Signed By: Sumeet Mueller MD Electronically Signed Date/Time: 06/07/2025 1:40 PM EDT [facility] Patient Name: LEXIS NGUYEN : 1985 Exam Date/Time: 06/07/2025 10:00 Procedure: FL SMALL BOWEL SERIES Ordering Provider: MURILLO STEVEN Reason For Exam: ensure no retained contrast prior to study, eval for transit time, s/p gastric bypass GASTROGRAFIN SMALL BOWEL SERIES History: Evaluate transit time. Small bowel obstruction versus ileus. History of Krystal-en-Y gastric bypass. Comparison: CT abdomen/pelvis 06/05/2025. Technique: Gastrografin was instilled orally, sequential films of the abdomen were obtained. Fluoroscopy time: Fluoroscopy was not utilized during the study. Images: 11 Findings: The preliminary film demonstrates a nonspecific bowel gas pattern. There is retained contrast within colon from previous CT scan. The gastric conduit is not adequately seen for proper evaluation. Evaluation of bowel mucosa is limited due to the use of Gastrografin. There is prompt flow of contrast in the jejunum and ileal loops. Dilated loops of small bowel are noted. Contrast reached the colon in 2.5 hours. [facility] Sumeet Mueller MD - 06/07/2025 Patient Name: LEXIS NGUYEN : 1985 Exam Date/Time: 06/07/2025 10:00 Procedure: FL SMALL BOWEL SERIES Ordering Provider: MURILLO STEVEN Reason For Exam: ensure no retained contrast prior to study, eval for transit time, s/p gastric bypass GASTROGRAFIN SMALL BOWEL SERIES History: Evaluate transit time. Small bowel obstruction versus ileus. History of Krystal-en-Y gastric bypass. Comparison: CT abdomen/pelvis 06/05/2025. Technique: Gastrografin was instilled orally, sequential films of the abdomen were obtained. Fluoroscopy time: Fluoroscopy was not utilized during the study. Images: 11 Findings: The preliminary film demonstrates a nonspecific bowel gas pattern. There is retained contrast within colon from previous CT scan. The gastric conduit is not adequately seen for proper evaluation. Evaluation of bowel mucosa is limited due to the use of Gastrografin. There is prompt flow of contrast in the jejunum and ileal loops. Dilated loops of small bowel are noted. Contrast reached the colon in 2.5 hours. IMPRESSION: Dilated loops of small bowel of uncertain etiology with transit time of 2.5 hours. Report Dictated on Electronically Signed By: Sumeet Mueller MD Electronically Signed Date/Time: 06/07/2025 1:40 PM EDT [facility] Radiology Study observation (narrative) [facility] XR ABDOMEN 1 VIEWon 06-07-20 XR ABDOMEN 1 VIEW Normal [facility] XR Abdomen Single viewon Air distended small and large bowel suggestive of adynamic ileus. Report Dictated on Electronically Signed By: Ky Hubbard DR Electronically Signed Date/Time: 06/07/2025 9:06 AM EDT [employer] [facility] Patient Name: LEXIS NGUYEN : 1985 Exam Date/Time: 06/07/2025 08:35 Procedure: XR ABDOMEN 1 VIEW Ordering Provider: MURILLO STEVEN Reason For Exam: check for residual contrast CLINICAL INDICATION: check for residual contrast COMPARISON: 06/06/2025 TECHNIQUE: Single AP view of the abdomen. FINDINGS: Postsurgical changes in the left upper quadrant of the abdomen. Air distended nondilated small and large bowel with intraluminal contrast in the proximal colon. No pneumatosis, portal venous gas, or pneumoperitoneum is identified within the limits of examination. No masses or suspicious calcifications are seen. Mild degenerative changes of the lumbar spine with mild levoconvex curvature. [facility] [employer] [facility] Ky Hubbard MD - 06/07/2025 [facility] Name: LEXIS NGY[facility]EN : 1985 [id number] Exam Date/Time: 06/07/2025 08:35 Procedure: XR ABDOMEN 1 VIEW Ordering Provider: MURILLO STEVEN Reason For Exam: check for residual contrast CLINICAL INDICATION: check for residual contrast COMPARISON: 06/06/2025 TECHNIQUE: Single AP view of the abdomen. FINDINGS: Postsurgical changes in the left upper quadrant of the abdomen. Air distended nondilated small and large bowel with intraluminal contrast in the proximal colon. No pneumatosis, portal venous gas, or pneumoperitoneum is identified within the limits of examination. No masses or suspicious calcifications are seen. Mild degenerative changes of the lumbar spine with mild levoconvex curvature. IMPRESSION: Air distended small and large bowel suggestive of adynamic ileus. Report Dictated on Electronically Signed By: Ky Hubbard DR Electronically Signed Date/Time: 06/07/2025 9:06 AM EDT [facility] Radiology Study observation (narrative) [facility] XR Abdomen Single viewOrdere d By: Ky Hubbard on 06-07-2025 [facility] Work Phone: 30on 06-06-2025 30 Normal [facility] [id number] 06-06-2025 [id number] Normal [facility] 36on 06-06-2025 36 Error. Normal [facility] 36 OP follow up for abdominal pain. Had EGD with surgery, needs colonoscopy (prior attempted and aborted due to poor prep). Normal [facility] C-REACTIVE PROTEINon 025 CRP [Mass/Vol] 1.3 mg/L Normal <5.0 [facility] Comment on above: Performed By: #### L AB17, [id number] ####Rn Eligibility: AMANDA SNYDER ([phone])[address] CBC W Auto Differential pane l (Bld)Ordered By: Chris Fontaine on 06-06-2025 Basophils (Bld) [#/Vol] 0 10*3/uL 0.0 - 0.2 10*3/uL [facility] Basophils/100 WBC (Bld) 0.5 % 0.0 - 2.0 % [facility] Eosinophils (Bld) [#/Vol] 0.1 10*3/uL 0.0 - 0.5 10*3/uL [facility] Eosinophils/100 WBC (Bld) 1.1 % 0.0 - 6.0 % [facility] Erythrocyte distribution width (RBC) [Ratio] 13.3 % 11.5 - 15.0 % [facility] Hematocrit (Bld) [Volume fraction] 37.9 % 35.0 - 47.0 % [facility] Hemoglobin (Bld) [Mass/Vol] 12.1 g/dL 11.7 - 16.0 g/dL [facility] Immature granulocytes (Bld) [#/Vol] 0 10*3/uL NINF - 0.1 10*3/uL [facility] Immature granulocytes/100 WBC (Bld) 0.2 % 0.0 - 2.0 % [facility] Interpretation and review of laboratory results Normal [facility] Lymphocytes (Bld) [#/Vol] 2.1 10*3/uL 1.0 - 4.3 10*3/uL [facility] Lymphocytes/100 WBC (Bld) 33.8 % 15.0 - 45.0 % [facility] MCH (RBC) [Entitic mass] 30 pg 26. 0 - 34.0 pg [facility] MCHC (RBC) [Mass/Vol] 31.9 % 30.5 - 36.0 % [facility] MCV (RBC) [Entitic vol] 93.8 fL 77.0 - 99.0 fL [facility] Monocytes (Bld) [#/Vol] 0.6 10*3/uL 0.0 - 0.9 10*3/uL [facility] Monocytes/100 WBC (Bld) 9 % 5.0 - 13.0 % [facility] Neutrophils (Bld) [#/Vol] 3.4 10*3/uL 1.8 - 7.5 10*3/uL [facility] Neutrophils/100 WBC (Bld) 55.4 % 38.0 - 82.0 % [facility] Nucleated RBC/100 WBC (Bld) [Ratio] 0 % [facility] Platelet mean volume (Bld) [Entitic vol] 10.5 fL 9.0 - 12.7 fL [facility] Platelets (Bld) [#/Vol] 194 10*3/uL 140 - 440 10*3/uL [facility] RBC (Bld) [#/Vol] 4.04 10*6/uL 3.80 - 5.2 0 10*6/uL [facility] WBC (Bld) [#/Vol] 6.1 10*3/uL 3.6 - 10.7 10*3/uL [facility] CBC WITH AUTO DIFFERENTIALon 06-06-2025 Basophils (Bld) [#/Vol] 0.0 10*3/uL Normal 0.0-0.2 [facility] Comment on above: Performed By: #### L [id number] ####Rn Eligibility: AMANDA SNYDER ([phone])[facility])[address] [place] [address] Basophils/100 WBC (Bld) 0.5 % Normal 0.0-2.0 [facility] Comment on above: Performed By: #### L [id number] ####Rn Eligibility: AMANDA SNYDER ([phone])[facility] ([facility])[address] [place] [address] Eosinophils (Bld) [#/Vol] 0.1 10*3/uL Normal 0.0-0.5 [facility] Comment on above: Performed By: #### L [id number] ####Rn Eligibility: AMANDA SNYDER ([phone])[facility] ([facility])[address] [place] [address] Eosinophils/100 WBC (Bld) 1.1 % Normal 0.0-6.0 [facility] Comment on above: Performed By: #### L [id number] ####Rn Eligibility: AMANDA SNYDER ([phone])[facility] ([facility])[address] [place] [address] Erythrocyte distribution width (RBC) [Ratio] 13.3 % Normal 11.5-15.0 [facility] Comment on above: Performed By: #### L [id number] ####Rn Eligibility: AMANDA [phone])[facility] [address] Hematocrit (Bld) [Volume fraction] 37.9 % Normal 35.0-47.0 [facility] Comment on above: Performed By: #### L [id number] ####Rn Eligibility: AMANDA SNYDER ([phone])[facility])[address] [place] [address] Hemoglobin (Bld) [Mass/Vol] 12.1 g/dL Normal 11.7-16.0 [facility] Comment on above: Performed By: #### L [id number] ####Rn Eligibility: AMANDA SNYDER ([phone])[facility])[address] [place] [address] IMMATURE GRANS % 0.2 % Normal 0.0-2.0 [facility] Comment on above: Performed By: #### L [id number] ####Rn Eligibility: AMANDA SNYDER ([phone])[facility])[address] [place] [address] IMMATURE GRANS ABSOLUTE 0.0 10*3/uL Normal <0.1 [facility] Comment on above: Performed By: #### L [id number] ####Rn Eligibility: AMANDA SNYDER ([phone])[facility])[address] [place] [address] Lymphocytes (Bld) [#/Vol] 2.1 10*3/uL Normal 1.0-4.3 [facility] Comment on above: Performed By: #### L [id number] ####Rn Eligibility: AMANDA SNYDER ([phone])[facility])[address] [place] [address] Lymphocytes/100 WBC (Bld) 33.8 % Normal 15.0-45.0 [facility] Comment on above: Performed By: #### L [id number] ####Rn Eligibility: AMANDA SNYDER ([phone])[facility])[address] [place] [address] MCH (RBC) [Entitic mass] 30.0 pg Normal 26.0-34.0 [facility] Comment on above: Performed By: #### L [id number] ####Rn Eligibility: AMANDA SNYDER ([phone])[facility])[address] [place] [address] MCHC 31.9 % Normal 30.5-36.0 [facility] Comment on above: Performed By: #### L [id number] ####Rn Eligibility: AMANDA SNYDER ([phone])[facility])[address] [place] [address] MCV (RBC) [Entitic vol] 93.8 fL Normal 77.0-99.0 [facility] Comment on above: Performed By: #### L [id number] ####Rn Eligibility: AMANDA SNYDER ([phone])[facility])[address] [place] [address] Monocytes (Bld) [#/Vol] 0.6 10*3/uL Normal 0.0-0.9 [facility] Comment on above: Performed By: #### L [id number] ####Rn Eligibility: AMANDA SNYDER ([phone])[facility])[address] [place] [address] Monocytes/100 WBC (Bld) 9.0 % Normal 5.0-13.0 [facility] Comment on above: Performed By: #### L [id number] ####Rn Eligibility: AMANDA SNYDER ([phone])[facility])[address] [place] [address] NEUTROPHILS ABSOLUTE 3.4 10*3/uL Normal 1.8-7.5 [facility] Comment on above: Performed By: #### L [id number] ####Rn Eligibility: AMANDA SNYDER ([phone])[facility])[address] [place] [address] Neutrophils/100 WBC (Bld) 55.4 % Normal 38.0-82.0 [facility] Comment on above: Performed By: #### L [id number] ####Rn Eligibility: AMANDA SNYDER ([phone])[facility])[address] [place] [address] NRBC 0.0 /100 WBCs Normal 0.0-2.0 [facility] Comment on above: Performed By: #### L [id number] ####Rn Eligibility: AMANDA SNYDER ([phone])[facility])[address] [place] [address] Platelet mean volume (Bld) [Entitic vol] 10.5 fL Normal 9.0-12.7 [facility] Comment on above: Performed By: #### L [id number] ####Rn Eligibility: AMANDA SNYDER ([phone])[facility])[address] [place] [address] Platelets (Bld) [#/Vol] 194 10*3/uL Normal 140-440 [facility] Comment on above: Performed By: #### L [id number] ####Rn Eligibility: AMANDA SNYDER ([phone])[facility] ([facility])[address] [place] [address] RBC (Bld) [#/Vol] 4.04 10*6/uL Normal 3.80-5.20 [facility] Comment on above: Performed By: #### L [id number] ####Rn Eligibility: AMANDA SNYDER ([phone])[facility])[address] [place] [address] WBC (Bld) [#/Vol] 6.1 10*3/uL Normal 3.6-10.7 [facility] Comment on above: Performed By: #### L [id number] ####Rn Eligibility: AMANDA SNYDER ([phone])[facility])[address] [place] [address] COMPREHENSIVE METABOLIC PANE Kj 06-06-2025 Albumin [Mass/Vol] 3.2 g/dL Low 3.5-5.0 [facility] Comment on above: Performed By: #### L AB17, [id number] ####Rn Eligibility: AMANDA SNYDER ([phone])[facility] [place] [address] [place] ALP [Catalytic activity/Vol] 79 U/L Normal 40-150 [facility] Comment on above: Performed By: #### L AB17, [id number] ####Rn Eligibility: AMANDA SNYDER ([phone])[facility] ([facility])[address] [place] [address] [place] ALT [Catalytic activity/Vol] 17 U/L Normal <30 [facility] Comment on above: Performed By: #### L AB17, [id number] ####Rn Eligibility: AMANDA SNYDER ([phone])[facility] ([facility])[address] [place] [address] Anion gap [Moles/Vol] 8 mmol/L Normal 3-13 [facility] Comment on above: Performed By: #### L AB17, [id number] ####Rn Eligibility: AMANDA SNYDER ([phone])[facility] ([facility])[address] [place] [address] AST [Catalytic activity/Vol] 28 U/L Normal <34 [facility] Comment on above: Performed By: #### L AB17, [id number] ####Rn Eligibility: AMANDA SNYDER ([phone])[facility] ([facility])[address] [place] [address] [place] Bilirubin [Mass/Vol] 0.5 mg/dL Normal <1.2 [facility] Comment on above: Performed By: #### L AB17, [id number] ####Rn Eligibility: AMANDA SNYDER ([phone])[facility] ([facility])[address] [place] [address] [place] Calcium [Mass/Vol] 8.0 mg/dL Low 8.4-10.2 [facility] Comment on above: Performed By: #### L AB17, [id number] ####Rn Eligibility: AMANDA SNYDER ([phone])[facility] ([facility])[address] [place] [address] [place] Chloride [Moles/Vol] 106 mmol/L Normal 98-107 [facility] Comment on above: Performed By: #### L AB17, [id number] ####Rn Eligibility: AMANDA SNYDER ([phone])[facility])[address] [place] [address] CO2 [Moles/Vol] 26 mmol/L Normal 22-29 [facility] Comment on above: Performed By: #### L AB17, [id number] ####Rn Eligibility: AMANDA SNYDER ([phone])[facility])[address] [place] [address] Creatinine [Mass/Vol] 0.69 mg/dL Normal 0.57-1.11 [facility] Comment on above: Performed By: #### L AB17, [id number] ####Rn Eligibility: AMANDA SNYDER ([phone])[facility])[address] [place] [address] GLOMERULAR FILTRATION RATE ML/MIN/1.73 SQ M.PREDICTED >90.0 Normal >60.0 [facility] Comment on above: Result Comment: Calc ulation based on the Chronic Kidney Disease Epidemiology Collaboration (CKD-EPI) equation refit without adjustment for race Performed By: #### L 17, [id number] ####Rn Eligibility: AMANDA SNYDER ([phone])[facility] ([facility])[address] [place] [address] Glucose [Mass/Vol] 80 mg/dL Normal 74-100 [facility] Comment on above: Performed By: #### L AB17, [id number] ####Rn Eligibility: AMANDA SNYDER ([phone])[facility])[address] [place] [address] Potassium [Moles/Vol] 3.8 mmol/L Normal 3.5-5.1 [facility] Comment on above: Result Comment: [facility] potassium values may be up to 0.5 mmol/L lower than serum values. Performed By: #### L AB17, [id number] ####Rn Eligibility: AMANDA SNYDER ([phone])[facility])[address] [place] [address] Protein [Mass/Vol] 5.5 g/dL Low 6.4-8.3 [facility] Comment on above: Performed By: #### L AB17, [id number] ####Rn Eligibility: AMANDA SNYDER ([phone])[facility] ([facility])[address] [place] [address] Sodium [Moles/Vol] 140 mmol/L Normal 136-145 [facility] Comment on above: Performed By: #### L AB17, [id number] ####Rn Eligibility: AMANDA SNYDER ([phone])[facility] ([facility])[address] [place] [address] Urea nitrogen [Mass/Vol] 7 mg/dL Low 8-21 [facility] Comment on above: Performed By: #### L AB17, [id number] ####Rn Eligibility: AMANDA SNYDER ([phone])[facility] ([facility])[address] [place] [address] CRP [Mass/Vol]on 06-06-2025 Interpretation and review of laboratory results Normal [facility] Comprehensive metabolic 1998 panelon 06-06-2025 Albumin [Mass/Vol] 3.2 g/dL Low 3.5 - 5.0 g/dL [facility] ALP [Catalytic activity/Vol] 79 U/L 40 - 150 U/L [facility] ALT [Catalytic activity/Vol] 17 U/L NINF - 30 U/L [facility] Anion gap [Moles/Vol] 8 mmol/L 3 - 13 mmol/L [facility] AST [Catalytic activity/Vol] 28 U/L NINF - 34 U/L [facility] Bilirubin [Mass/Vol] 0.5 mg/dL NINF - 1.2 mg/dL [facility] Calcium [Mass/Vol] 8 mg/dL Low 8.4 - 10. 2 mg/dL [facility] Chloride [Moles/Vol] 106 mmol/L 98 - 10 7 mmol/L [facility] CO2 [Moles/Vol] 26 mmol/L 22 - 29 mmol/L [facility] Creatinine [Mass/Vol] 0.69 mg/dL 0.57 - 1.11 mg/dL [facility] GFR/1.73 sq M.predicted (S/P/Bld) [Vol rate/Area] - PINF [facility] Comment on above: Calculation based on the Chronic Kidney Disease Epidemiology Collaboration (CKD-EPI) equation refit without adjustment for race Glucose [Mass/Vol] 80 mg/dL 74 - 100 mg/dL [facility] Interpretation and review of laboratory results Abnormal [facility] Potassium [Moles/Vol] 3.8 mmol/L 3.5 - 5.1 mmol/L [facility] Comment on above: Plasma potassium cami ues may be up to 0.5 mmol/L lower than serum values. Protein [Mass/Vol] 5.5 g/dL Low 6.4 - 8.3 g/dL [facility] Sodium [Moles/Vol] 140 mmol/L 136 - 145 mmol/L [facility] Urea nitrogen [Mass/Vol] 7 mg/dL Low 8 - 21 mg/dL [facility] Consulton 06-06-2025 Consult Normal [facility] Laboratory - Chemistry and C hemistry - challengeon 06-06-2025 CRP [Mass/Vol] 1.3 mg/L NINF - 5.0 mg/L [facility] Progress Noteon 06-06-2025 Progress Note Normal [facility] Progress Note Normal [facility] XR ABDOMEN 1 VIEWon 06-06-20 25 XR ABDOMEN 1 VIEW [facility] XR Abdomen Single viewon Findings and impression: Abdomen single view shows residual contrast media within large bowel. Some small and large bowel distention present of uncertain significance. No convincing free air. Consider follow-up. Report Dictated on Electronically Signed By: Sumeet Mueller MD Electronically Signed Date/Time: 06/06/2025 8:35 AM EDT [facility] Patient Name: LEXIS NGUYEN : 1985 Exam Date/Time: 06/06/2025 08:17 Procedure: XR ABDOMEN 1 VIEW Ordering Provider: RUIZ MARY Reason For Exam: eval for contrast transit Indication: Nausea and vomiting. Evaluate for contrast transit. [facility] Sumeet Mueller MD - 06/06/2025 Patient Name: LEXIS NGUYEN : 1985 [id number] Exam Date/Time: 06/06/2025 08:17 Procedure: XR ABDOMEN 1 VIEW Ordering Provider: RUIZ MARY Reason For Exam: eval for contrast transit Indication: Nausea and vomiting. Evaluate for contrast transit. IMPRESSION: Findings and impression: Abdomen single view shows residual contrast media within large bowel. Some small and large bowel distention present of uncertain significance. No convincing free air. Consider follow-up. Report Dictated on Electronically Signed By: Sumeet Mueller MD Electronically Signed Date/Time: 06/06/2025 8:35 AM EDT [facility] Radiology Study observation (narrative) [facility] XR Abdomen Single viewOrdere d By: Sumeet Mueller on 06-06-2025 [facility] [employer] Work Phone: 36on 06-05-2025 36 Noted, thanks. Normal [facility] 36 Noted, thank you. Wi ll follow. Normal [facility] 36 Normal [facility] BASIC METABOLIC PANELon 05-22 Anion gap [Moles/Vol] 7 mmol/L Normal 3-13 [facility] Comment on above: Performed By: #### L [id number], LAB15, LAB20, LAB99 ####Rn Eligibility: AMANDA SNYDER ([phone])[address] Calcium [Mass/Vol] 9.0 mg/dL Normal 8.4-10.2 [facility] Comment on above: Performed By: #### L [id number], LAB15, LAB20, LAB99 ####Rn Eligibility: AMANDA SNYDER ([phone])[facility])[address] [place] [address] Chloride [Moles/Vol] 103 mmol/L Normal 98-107 [facility] Comment on above: Performed By: #### L [id number], LAB15, LAB20, LAB99 ####Rn Eligibility: AMANDA SNYDER ([phone])[facility])[address] [place] [address] CO2 [Moles/Vol] 28 mmol/L Normal 22-29 [facility] Comment on above: Performed By: #### L [id number], LAB15, LAB20, LAB99 ####Rn Eligibility: AMANDA SNYDER ([phone])[facility])[address] [place] [address] Creatinine [Mass/Vol] 0.77 mg/dL Normal 0.57-1.11 [facility] Comment on above: Performed By: #### L [id number], LAB15, LAB20, LAB99 ####Rn Eligibility: AMANDA SNYDER ([phone])[facility])[address] [place] [address] GLOMERULAR FILTRATION RATE ML/MIN/1.73 SQ M.PREDICTED >90.0 Normal >60.0 [facility] Comment on above: Result Comment: Calc ulation based on the Chronic Kidney Disease Epidemiology Collaboration (CKD-EPI) equation refit without adjustment for race Performed By: #### L [id number], LAB15, LAB20, LAB99 ####Rn Eligibility: AMANDA SNYDER ([phone])[facility])[address] [place] [address] Glucose [Mass/Vol] 88 mg/dL Normal 74-100 [facility] Comment on above: Performed By: #### L [id number], LAB15, LAB20, LAB99 ####Rn Eligibility: AMANDA SNYDER ([phone])[facility])[address] [place] [address] [place] Potassium [Moles/Vol] 4.1 mmol/L Normal 3.5-5.1 [facility] Comment on above: Result Comment: [facility] potassium values may be up to 0.5 mmol/L lower than serum values. Performed By: #### L [id number], LAB15, LAB20, LAB99 ####Rn Eligibility: AMANDA SNYDER ([phone])[facility] ([facility])[address] [place] [address] Sodium [Moles/Vol] 138 mmol/L Normal 136-145 [facility] Comment on above: Performed By: #### L [id number], LAB15, LAB20, LAB99 ####Rn Eligibility: AMANDA SNYDER ([phone])[facility] [place] [address] Urea nitrogen [Mass/Vol] 7 mg/dL Low 8-21 [facility] Comment on above: Performed By: #### L [id number], LAB15, LAB20, LAB99 ####Rn Eligibility: AMANDA SNYDER ([phone])[facility] [place] [address] Basic metabolic 1998 panelon 06-05-2025 Anion gap [Moles/Vol] 7 mmol/L 3 - 13 mmol/L [facility] Calcium [Mass/Vol] 9 mg/dL 8.4 - 10. 2 mg/dL [facility] Chloride [Moles/Vol] 103 mmol/L 98 - 10 7 mmol/L [facility] CO2 [Moles/Vol] 28 mmol/L 22 - 29 mmol/L [facility] Creatinine [Mass/Vol] 0.77 mg/dL 0.57 - 1.11 mg/dL [facility] GFR/1.73 sq M.predicted (S/P/Bld) [Vol rate/Area] - PINF [facility] Comment on above: Calculation based on the Chronic Kidney Disease Epidemiology Collaboration (CKD-EPI) equation refit without adjustment for race Glucose [Mass/Vol] 88 mg/dL 74 - 100 mg/dL [facility] Interpretation and review of laboratory results Abnormal [facility] Potassium [Moles/Vol] 4.1 mmol/L 3.5 - 5.1 mmol/L [facility] Comment on above: Plasma potassium cami ues may be up to 0.5 mmol/L lower than serum values. Sodium [Moles/Vol] 138 mmol/L 136 - 145 mmol/L [facility] Urea nitrogen [Mass/Vol] 7 mg/dL Low 8 - 21 mg/dL [facility] CBC W Auto Differential pane l (Bld)on 06-05-2025 Basophils (Bld) [#/Vol] 0 10*3/uL 0.0 - 0.2 10*3/uL [facility] Basophils/100 WBC (Bld) 0.6 % 0.0 - 2.0 % [facility] Eosinophils (Bld) [#/Vol] 0.1 10*3/uL 0.0 - 0.5 10*3/uL [facility] Eosinophils/100 WBC (Bld) 0.8 % 0.0 - 6.0 % [facility] Erythrocyte distribution width (RBC) [Ratio] 13.3 % 11.5 - 15.0 % [facility] Hematocrit (Bld) [Volume fraction] 43 % 35.0 - 47.0 % [facility] Hemoglobin (Bld) [Mass/Vol] 14.3 g/dL 11.7 - 16.0 g/dL [facility] Immature granulocytes (Bld) [#/Vol] 0 10*3/uL NINF - 0.1 10*3/uL [facility] Immature granulocytes/100 WBC (Bld) 0.3 % 0.0 - 2.0 % [facility] Interpretation and review of laboratory results Normal [facility] Lymphocytes (Bld) [#/Vol] 1.5 10*3/uL 1.0 - 4.3 10*3/uL [facility] Lymphocytes/100 WBC (Bld) 23.6 % 15.0 - 45.0 % [facility] MCH (RBC) [Entitic mass] 31.2 pg 26. 0 - 34.0 pg [facility] MCHC (RBC) [Mass/Vol] 33.3 % 30.5 - 36.0 % [facility] MCV (RBC) [Entitic vol] 93.7 fL 77.0 - 99.0 fL [facility] Monocytes (Bld) [#/Vol] 0.4 10*3/uL 0.0 - 0.9 10*3/uL [facility] Monocytes/100 WBC (Bld) 6.7 % 5.0 - 13.0 % [facility] Neutrophils (Bld) [#/Vol] 4.4 10*3/uL 1.8 - 7.5 10*3/uL [facility] Neutrophils/100 WBC (Bld) 68 % 38.0 - 82.0 % [facility] Nucleated RBC/100 WBC (Bld) [Ratio] 0 % [facility] Platelet mean volume (Bld) [Entitic vol] 10.1 fL 9.0 - 12.7 fL [facility] Platelets (Bld) [#/Vol] 233 10*3/uL 140 - 440 10*3/uL [facility] RBC (Bld) [#/Vol] 4.59 10*6/uL 3.80 - 5.2 0 10*6/uL [facility] WBC (Bld) [#/Vol] 6.4 10*3/uL 3.6 - 10.7 10*3/uL [facility] CBC WITH AUTO DIFFERENTIALon 06-05-2025 Basophils (Bld) [#/Vol] 0.0 10*3/uL Normal 0.0-0.2 [facility] Comment on above: Performed By: #### L [id number] ####Rn Eligibility: AMANDA SNYDER ([phone])[facility])[address] [place] [address] Basophils/100 WBC (Bld) 0.6 % Normal 0.0-2.0 [facility] Comment on above: Performed By: #### L [id number] ####Rn Eligibility: AMANDA SNYDER ([phone])[facility])[address] [place] [address] Eosinophils (Bld) [#/Vol] 0.1 10*3/uL Normal 0.0-0.5 [facility] Comment on above: Performed By: #### L [id number] ####Rn Eligibility: AMANDA SNYDER ([phone])[facility])[address] [place] [address] Eosinophils/100 WBC (Bld) 0.8 % Normal 0.0-6.0 [facility] Comment on above: Performed By: #### L [id number] ####Rn Eligibility: AMANDA SNYDER ([phone])[facility])[address] [place] [address] Erythrocyte distribution width (RBC) [Ratio] 13.3 % Normal 11.5-15.0 [facility] Comment on above: Performed By: #### L [id number] ####Rn Eligibility: AMANDA SNYDER ([phone])[facility])[address] [place] [address] Hematocrit (Bld) [Volume fraction] 43.0 % Normal 35.0-47.0 [facility] Comment on above: Performed By: #### L [id number] ####Rn Eligibility: AMANDA SNYDER ([phone])[facility])[address] [place] [address] Hemoglobin (Bld) [Mass/Vol] 14.3 g/dL Normal 11.7-16.0 [facility] Comment on above: Performed By: #### L [id number] ####Rn Eligibility: AMANDA SNYDER ([phone])[facility])[address] [place] [address] IMMATURE GRANS % 0.3 % Normal 0.0-2.0 [facility] Comment on above: Performed By: #### L [id number] ####Rn Eligibility: AMANDA SNYDER ([phone])[facility])[address] [place] [address] IMMATURE GRANS ABSOLUTE 0.0 10*3/uL Normal <0.1 [facility] Comment on above: Performed By: #### L [id number] ####Rn Eligibility: AMANDA SNYDER ([phone])[facility])[address] [place] [address] Lymphocytes (Bld) [#/Vol] 1.5 10*3/uL Normal 1.0-4.3 [facility] Comment on above: Performed By: #### L [id number] ####Rn Eligibility: AMANDA SNYDER ([phone])[facility])[address] [place] [address] Lymphocytes/100 WBC (Bld) 23.6 % Normal 15.0-45.0 [facility] Comment on above: Performed By: #### L [id number] ####Rn Eligibility: AMANDA [id number])[facility] ([facility])[address] [place] [address] MCH (RBC) [Entitic mass] 31.2 pg Normal 26.0-34.0 [facility] Comment on above: Performed By: #### L [id number] ####Rn Eligibility: AMANDA SNYDER ([phone])[facility])[address] [place] [address] MCHC 33.3 % Normal 30.5-36.0 [facility] Comment on above: Performed By: #### L [id number] ####Rn Eligibility: AMANDA SNYDER ([phone])[facility])[address] [place] [address] MCV (RBC) [Entitic vol] 93.7 fL Normal 77.0-99.0 [facility] Comment on above: Performed By: #### L [id number] ####Rn Eligibility: AMANDA SNYDER ([phone])[facility] ([facility])[address] [place] [address] Monocytes (Bld) [#/Vol] 0.4 10*3/uL Normal 0.0-0.9 [facility] Comment on above: Performed By: #### L [id number] ####Rn Eligibility: AMANDA SNYDER ([phone])[facility] ([facility])[address] [place] [address] Monocytes/100 WBC (Bld) 6.7 % Normal 5.0-13.0 [facility] Comment on above: Performed By: #### L [id number] ####Rn Eligibility: AMANDA SNYDER ([phone])[facility] ([facility])[address] [place] [address] NEUTROPHILS ABSOLUTE 4.4 10*3/uL Normal 1.8-7.5 [facility] Comment on above: Performed By: #### L [id number] ####Rn Eligibility: AMANDA SNYDER ([phone])[facility])[address] [place] [address] Neutrophils/100 WBC (Bld) 68.0 % Normal 38.0-82.0 [facility] Comment on above: Performed By: #### L [id number] ####Rn Eligibility: AMANDA SNYDER ([phone])[facility] ([facility])[address] [place] [address] NRBC 0.0 /100 WBCs Normal 0.0-2.0 [facility] Comment on above: Performed By: #### L [id number] ####Rn Eligibility: AMANDA SNYDER ([phone])[facility] ([facility])[address] [place] [address] Platelet mean volume (Bld) [Entitic vol] 10.1 fL Normal 9.0-12.7 [facility] Comment on above: Performed By: #### L [id number] ####Rn Eligibility: AMANDA SNYDER ([phone])[facility] ([facility])[address] [place] [address] Platelets (Bld) [#/Vol] 233 10*3/uL Normal 140-440 [facility] Comment on above: Performed By: #### L [id number] ####Rn Eligibility: AMANDA SNYDER ([phone])[facility])[address] [place] [address] RBC (Bld) [#/Vol] 4.59 10*6/uL Normal 3.80-5.20 [facility] Comment on above: Performed By: #### L [id number] ####Rn Eligibility: AMANDA SNYDER ([phone])[facility] ([facility])[address] [place] [address] WBC (Bld) [#/Vol] 6.4 10*3/uL Normal 3.6-10.7 [facility] Comment on above: Performed By: #### L [id number] ####Rn Eligibility: AMANDA SNYDER ([phone])[facility] ([facility])[address] [place] [address] Octavio 06-05-2025 [facility] LEXIS NGUYEN ([id number]) 1985 F Date Time Provider Department 06/05/25 STEFANO CHACON During your visit today, we recorded the following information about you: Pravni Nilda Santos 06/05/2025 10:27 AM Signed Patient's called to cancel his 's appointment today. He is taking her to the ER. Didn't specify which ER he was taking her too but said he will call the office back to reschedule his 's appointment once she is feeling better. Allergies As of Date: 06/05/2025 Noted Allergy Reaction NSAIDS (NON-STEROIDAL ANTI-INFLAM*09/02/2015 8 - GI Upset 15 - Contraindication-Medic al Rodríguez* Comments: Because of gastric bypass CAVANAUGH PEPPER 10/12/2019 2 - Rash NORTRIPTYLINE 08/15/2024 14 - Other: See Comments Comments: Tremors GABAPENTIN 05/13/2022 1 - Mental Status Change 14 - Other: See Comments Comments: Tremors PENICILLINS 1985 4 - Hives 2 - Rash Comments: Received IV cefazolin at [facility] in 2018 and 2020 prior to procedures Received IV cefazolin at [facility] in 2018 and 2020 prior to procedures Date Reviewed: 05/29/2025 Reviewed by: Kaelyn Shetty, RN - Fully Assessed Prescriptions as of 06/05/2025 - SEMAGLUTIDE SUBCUTANEOUS Inject subcutaneously. - lidocaine, PF, (XYLOCAINE) 10 mg/mL (1 %) soln injection 1-10 mL by INTRADERMAL route as needed. For use during PICC/Midline Insertion ONLY. - omeprazole (PRILOSEC) 20 mg capsule Take 1 capsule by mouth once daily. - traMADol (ULTRAM) 50 mg tablet Take 1 tablet by mouth twice daily as needed for pain. - cyanocobalamin (VITAMIN B-12) 1,000 mcg tab Take 1 tablet by mouth once daily. - lacosamide (VIMPAT) 200 mg Take 1 tablet by mouth twice daily. - ARIPiprazole (ABILIFY) 10 mg tablet Take 10 mg by mouth once daily. - DULoxetine (CYMBALTA) 60 mg capsule duloxetine 60 mg capsule,delayed release TAKE 1 CAPSULE BY MOUTH TWICE DAILY - Calcium Citrate 250 mg calcium tab Take 1 tablet by mouth once daily. Problem List As Of Date 06/05/2025 Noted Resolved Anxiety [F41.9] 01/12/2023 Epilepsy (HCC) [G40.909] 01/12/2023 Gastroesophageal reflux disease [K21.9] 01/12/2023 Major depression, single episode [F32.9] 01/12/2023 Obesity, Class III, BMI 40-49.9 (morbid obesity*01/12/2023 IIH (idiopathic intracranial hypertension) [G93*01/12/2023 Difficult intravenous access [Z78.9] 02/16/2023 Morbid obesity with BMI of 45.0-49.9, adult (HC*03/12/2023 01/15/2025 Idiopathic intracranial hypertension [G93.2] 03/12/2023 Headaches [R51.9] 03/15/2023 S/P gastric bypass [Z98.84] 04/01/2023 Medical marijuana use [Z79.899] 04/01/2023 Exhausted vascular access [Z45.2] 06/15/2023 Pre-op evaluation [Z01.818] 11/04/2023 10/04/2024 JACK (obstructive sleep apnea) [G47.33] 04/26/2012 01/15/2025 Encounter Status:Closed by NILDA DOLAN on 06/05/25 Normal [facility] COMPLETE URINALYSIS WITH REF ENRIQUE TO Bruno 06-05-2025 BILIRUBIN, TOTAL PRESENCE IN URINE Negative Normal Negative [facility] Comment on above: Performed By: #### L [id number] ####Rn Eligibility: AMANDA SNYDER ([phone])[address] Clarity (U) Clear Normal Clear [facility] Comment on above: Performed By: #### L [id number] ####Rn Eligibility: AMANDA SNYDER ([phone])[facility] ([facility])[address] [place] [address] [place] Color (U) Light Yellow Normal Lt. Yellow [facility] Comment on above: Performed By: #### L [id number] ####Rn Eligibility: AMANDA SNYDER ([phone])[facility] [place] [address] [place] GLUCOSE (MG/DL) IN URINE Normal Normal Nor mal (<70) [facility] Comment on above: Performed By: #### L [id number] ####Rn Eligibility: AMANDA SNYDER ([phone])[facility] ([facility])[address] [place] [address] HEMOGLOBIN PRESENCE IN URINE Negative Normal Negative [facility] Comment on above: Performed By: #### L [id number] ####Rn Eligibility: AMANDA SNYDER ([phone])[facility] ([facility])[address] [place] [address] Ketones Ql (U) 10 mg/dL Abnormal Negative [facility] Comment on above: Performed By: #### L [id number] ####Rn Eligibility: AMANDA SNYDER ([phone])[facility] ([facility])[address] [place] [address] LEUKOCYTE ESTERASE PRESENCE IN URINE BY TEST STRIP Negative Normal Negative [facility] Comment on above: Performed By: #### L [id number] ####Rn Eligibility: AMANDA SNYDER ([phone])[facility] ([facility])[address] [place] [address] NITRITE PRESENCE IN URINE Negative Normal Negative [facility] Comment on above: Performed By: #### L [id number] ####Rn Eligibility: AMANDA SNYDER ([phone])[facility] ([facility])[address] [place] [address] pH (U) 6.5 [pH] Normal 5.0-8.0 [facility] Comment on above: Performed By: #### L [id number] ####Rn Eligibility: AMANDA SNYDER ([phone])[facility])[address] [place] [address] Protein (U) [Mass/Vol] Negative Normal Negative [facility] Comment on above: Performed By: #### L [id number] ####Rn Eligibility: AMANDA SNYDER ([phone])[address] Specific gravity (U) [Rel density] 1.010 Normal 1.005-1.030 [facility] Comment on above: Result Comment: YASIR Bernal COMMENTS:A specimen with <=10 WBC is not consistent with inflammation. This specimen will not reflex to a urine culture. Performed By: #### L [id number] ####Rn Eligibility: AMANDA SNYDER ([phone])[address] UROBILINOGEN (MG/DL) IN URINE Normal Normal Normal (0-1) [facility] Comment on above: Performed By: #### L [id number] ####Rn Eligibility: AMANDA SNYDER ([phone])[address] ABDOMEN PELVIS W CONTRAST on 06-05-2025 CT ABDOMEN PELVIS W CONTRAST Normal [facility] CT Abdomen and Pelvis W cont rast Italo 06-05-2025 Status post Krystal-en- Y gastric bypass. No acute intra-abdominal disease process. No evidence of bowel obstruction. Report Dictated on Electronically Signed By: Harish Whitman MD Electronically Signed Date/Time: 06/05/2025 2:53 PM [facility] Name[facility]EXIS [facility]GU[facility]EN [facility] 1985 [id number] Exam Date/Time: 06/05/2025 14:26 Procedure: CT ABDOMEN PELVIS W CONTRAST Ordering Provider: VILLELA MADISON Reason For Exam: epigastric abdominal pain, hx Krystal-en-Y gastric bypass in 2013, recent surgery for adhesion around bowel, worsening epigastric abdominal pain EXAM: CT Abdomen and Pelvis With Intravenous Contrast CLINICAL INDICATION: epigastric abdominal pain, hx Krystal-en-Y gastric bypass in 2014, recent surgery for adhesion around bowel, worsening epigastric abdominal pain TECHNIQUE: Axial computed tomography images of the abdomen and pelvis with intravenous contrast. This CT exam was performed using one or more of the following dose reduction techniques: automated exposure control, adjustment of the mA and/or kV according to patient size, and/or use of iterative reconstruction technique. COMPARISON: 05/27/2025 FINDINGS: LUNG BASES: Unremarkable. No mass. No consolidation. ABDOMEN: LIVER: Unremarkable. No mass. GALLBLADDER AND BILE DUCTS: Status post cholecystectomy. No ductal dilation. PANCREAS: Unremarkable. No mass. No ductal dilation. SPLEEN: Unremarkable. No splenomegaly. ADRENALS: Unremarkable. No mass. KIDNEYS AND URETERS: Unremarkable. No solid mass. No hydronephrosis. STOMACH AND BOWEL: Postsurgical changes from prior Krystal-en-Y gastric bypass. No evidence of bowel obstruction. No mucosal thickening. PELVIS: APPENDIX: Status post appendectomy. BLADDER: Unremarkable. No mass. REPRODUCTIVE: Unremarkable as visualized. ABDOMEN and PELVIS: INTRAPERITONEAL SPACE: Unremarkable. No free air. No significant fluid collection. BONES/JOINTS: No acute fracture. SOFT TISSUES: Unremarkable. VASCULATURE: Unremarkable. No abdominal aortic aneurysm. LYMPH NODES: Unremarkable. No enlarged lymph nodes. [facility] Jamia Whitman MD - 06/05/2025 Patient Name: LEXIS NGUYEN : 1985 [id number] Exam Date/Time: 06/05/2025 14:26 Procedure: CT ABDOMEN PELVIS W CONTRAST Ordering Provider: VILLELA MADISON Reason For Exam: epigastric abdominal pain, hx Krystal-en-Y gastric bypass in 2013, recent surgery for adhesion around bowel, worsening epigastric abdominal pain EXAM: CT Abdomen and Pelvis With Intravenous Contrast CLINICAL INDICATION: epigastric abdominal pain, hx Krystal-en-Y gastric bypass in 2013, recent surgery for adhesion around bowel, worsening epigastric abdominal pain TECHNIQUE: Axial computed tomography images of the abdomen and pelvis with intravenous contrast. This CT exam was performed using one or more of the following dose reduction techniques: automated exposure control, adjustment of the mA and/or kV according to patient size, and/or use of iterative reconstruction technique. COMPARISON: 05/27/2025 FINDINGS: LUNG BASES: Unremarkable. No mass. No consolidation. ABDOMEN: LIVER: Unremarkable. No mass. GALLBLADDER AND BILE DUCTS: Status post cholecystectomy. No ductal dilation. PANCREAS: Unremarkable. No mass. No ductal dilation. SPLEEN: Unremarkable. No splenomegaly. ADRENALS: Unremarkable. No mass. KIDNEYS AND URETERS: Unremarkable. No solid mass. No hydronephrosis. STOMACH AND BOWEL: Postsurgical changes from prior Krystal-en-Y gastric bypass. No evidence of bowel obstruction. No mucosal thickening. PELVIS: APPENDIX: Status post appendectomy. BLADDER: Unremarkable. No mass. REPRODUCTIVE: Unremarkable as visualized. ABDOMEN and PELVIS: INTRAPERITONEAL SPACE: Unremarkable. No free air. No significant fluid collection. BONES/JOINTS: No acute fracture. SOFT TISSUES: Unremarkable. VASCULATURE: Unremarkable. No abdominal aortic aneurysm. LYMPH NODES: Unremarkable. No enlarged lymph nodes. IMPRESSION: Status post Krystal-en-Y gastric bypass. No acute intra-abdominal disease process. No evidence of bowel obstruction. Report Dictated on Electronically Signed By: Harish Whitman MD Electronically Signed Date/Time: 06/05/2025 2:53 PM EDT [facility] Radiology Study observation (narrative) [facility] CT Abdomen and Pelvis W cont rast IVOrdered By: Jamia Whitman on 06-05-2025 [facility] Work Phone: Consulton 06-05-2025 Consult Normal [facility] D-DIMER,QUANTITATIVEon 06-05 D-DIMER, INNOVANCE 0.24 mg/L Normal <0.50 [facility] Comment on above: Result Comment: YASIR Bernal COMMENTS:Innovance D-Dimer values of <0.50 mg/L FEU can be used in combination with a pre-test probability model (e.g. Well's) to exclude pulmonary embolism (PE) disease, as well as an aid in the diagnosis of deep vein thrombosis (DVT). Performed By: #### L [id number] ####Rn Eligibility: AMANDA SNYDER ([phone])[facility] ([address] ECG 12-LEADon 07-15-2025 ECG 12-LEAD Normal [facility] ED Nursing Noteon 06-05-2025 ED Nursing Note Transport at chair side pt has even non labored respirations axox4 gcs 15 and shows no signs of distress at this time. Normal [facility] ED Provider Noteon ED Provider Note Normal [facility] D-dimer FEU (PPP) [Ma ss/Vol]on 06-05-2025 Interpretation and review of laboratory results Normal [facility] D-Dimer values of <0.50 mg/L FEU can be used in combination with a pre-test probability model (e.g. Well's) to exclude pulmonary embolism (PE) disease, as well as an aid in the diagnosis of deep vein thrombosis (DVT). [facility] HEPATIC FUNCTION PANELon Albumin [Mass/Vol] 4.1 g/dL Normal 3.5-5.0 [facility] Comment on above: Performed By: #### Norbert [id number], LAB15, LAB20, LAB99 ####Rn Eligibility: AMANDA SNYDER ([phone])[address] ALP [Catalytic activity/Vol] 95 U/L Normal 40-150 [facility] Comment on above: Performed By: #### Norbert [id number], LAB15, LAB20, LAB99 ####Rn Eligibility: AMANDA SNYDER ([phone])[address] ALT [Catalytic activity/Vol] 19 U/L Normal <30 [facility] Comment on above: Performed By: #### L [id number], LAB15, LAB20, LAB99 ####Rn Eligibility: AMANDA SNYDER ([phone])[facility])[address] [place] [address] AST [Catalytic activity/Vol] 20 U/L Normal <34 [facility] Comment on above: Performed By: #### L [id number], LAB15, LAB20, LAB99 ####Rn Eligibility: AMANDA [id number])[facility])[address] [place] [address] Bilirubin [Mass/Vol] 0.4 mg/dL Normal <1.2 [facility] Comment on above: Performed By: #### L [id number], LAB15, LAB20, LAB99 ####Rn Eligibility: AMANDA SNYDER ([phone])[facility])[address] [place] [address] Bilirubin.indirect [Mass/Vol] 0.1 mg/dL Normal <0.5 [facility] Comment on above: Performed By: #### L [id number], LAB15, LAB20, LAB99 ####Rn Eligibility: AMANDA SNYDER ([phone])[address] Protein [Mass/Vol] 7.2 g/dL Normal 6.4-8.3 [facility] Comment on above: Result Comment: Seru m protein values are higher than plasma values. Samples from recumbent persons are lower by up to 0.5 g/dL as compared to ambulatory persons. After 60 years values are lower by up to 0.2 g/dL. Performed By: #### L [id number], LAB15, LAB20, LAB99 ####Rn Eligibility: AMANDA SNYDER ([phone])[address] HIGH SENSITIVITY TROPONIN, S ERIAL BASELINEon 06-05-2025 TROPONIN HS SERIAL BASELINE <3 Normal <=14 [facility] Comment on above: Result Comment: In i ndividuals presenting with symptoms > 2h, a baseline troponin <= 5 ng/L suggests acutecardiac injury is unlikely and further serial testing is generally not indicated. Performed By: #### L [id number], LAB15, LAB20, LAB99 ####Rn Eligibility: AMANDA SNYDER ([phone])[facility])[address] [place] [address] HIGH SENSITIVITY TROPONIN, S ERIAL, SECOND TESTon 06-05-2025 2H TROPONIN HS (SERIAL 2ND TROPONIN) <3 Normal <=14 [facility] Comment on above: Result Comment: Delt a value was unable to be calculated as both baseline and serial troponin tests were below the level of quantitation. As both baseline and 2h troponin values are below the level of quantitation, acute cardiac injury is unlikely. Performed By: #### L [id number] ####Rn Eligibility: AMANDA SNYDER ([phone])[facility] ([facility])[address] [place] [address] Hepatic function 2000 panelo n 06-05-2025 Albumin [Mass/Vol] 4.1 g/dL 3.5 - 5.0 g/dL [facility] ALP [Catalytic activity/Vol] 95 U/L 40 - 150 U/L [facility] ALT [Catalytic activity/Vol] 19 U/L NINF - 30 U/L [facility] AST [Catalytic activity/Vol] 20 U[facility]L [facility] Bilirubin [Mass/Vol] 0.4 mg/dL [facility] 1.[facility] mg/dL [facility] Bilirubin.conjugated [Mass/Vol] 0.1 mg/dL [facility] 0.5 mg/dL [facility] Protein [Mass/Vol] 7.2 g/dL 6.4 - 8.3 g/dL [facility] Comment on above: Serum protein values are higher than plasma values. Samples from recumbent persons are lower by up to 0.5 g/dL as compared to ambulatory persons. After 60 years values are lower by up to 0.2 g/dL. LACTIC ACID WITH REFLEXon Lactate [Moles/Vol] 1.0 mmol/L Normal 0.5-2.2 [facility] Comment on above: Performed By: #### L [id number] ####Rn Eligibility: AMANDA SNYDER ([phone])[facility] ([facility])[address] [place] [address] LIPASEon 06-05-2025 Lipase [Catalytic activity/Vol] 23 U/L Normal <55 [facility] Comment on above: Performed By: #### L [id number], [id number], LAB20, LAB99 ####Rn Eligibility: AMANDA SNYDER ([phone])[facility] ([facility])[address] [place] [address] Laboratory - Chemistry and C hemistry - challengeon 06-05-2025 Lactate [Moles/Vol] 1 mmol/L 0.5 - 2. 2 mmol/L [facility] Lipase [Catalytic activity/Vol] 23 U/L [facility] - 55 U/L [facility] Laboratory - Coagulationon 0 06-05-2025 Fibrin D-dimer FEU (PPP) [Mass/Vol] 0.24 mg/L [facility] - 0.50 mg/L [facility] No Panel Informationon 06-05 P [place] -1 degrees [facility] [place] Interval 147 ms [facility] QRS [place] 5 degrees [facility] QRSD [facility]val [facility]val 367 ms [facility] QTC Interval 433 ms [facility] T Wave [place] 55 degrees [facility] Sinus rhythm Low voltage, precordial leads EKG per my interpretation shows a normal sinus rhythm at a rate of 83 with a normal axis. There is low voltage in the precordial leads. There is no acute ST elevation or ST depression. Intervals are within normal limits otherwise. There were no significant changes compared to prior EKG on file. Electronically Signed On 06-05-2025 20:05:47 EDT by Serafin Cardona MD - 06/05/2025 IMPRESSION: Sinus rhythm Low voltage, precordial leads EKG per my interpretation shows a normal sinus rhythm at a rate of 83 with a normal axis. There is low voltage in the precordial leads. There is no acute ST elevation or ST depression. Intervals are within normal limits otherwise. There were no significant changes compared to prior EKG on file. Electronically Signed On 06-05-2025 20:05:47 EDT by Serafin Harley [facility] Interpretation and review of laboratory results Normal [facility] 2h Troponin HS (Serial 2nd Troponin) ng/L [facility] - 14 ng/L [facility] Comment on above: Delta value was unab le to be calculated as both baseline and serial troponin tests were below the level of quantitation. As both baseline and 2h troponin values are below the level of quantitation, acute cardiac injury is unlikely. Interpretation and review of laboratory results Normal [facility] Interpretation and review of laboratory results Normal [facility] Troponin HS Serial Baseline ng/L NINF - 14 ng/L [facility] Comment on above: In individuals prese nting with symptoms > 2h, a baseline troponin <= 5 ng/L suggests acute cardiac injury is unlikely and further serial testing is generally not indicated. [facility] Interpretation and review of laboratory results Normal [facility] Urinalysis complete panel (U )Ordered By: Rebecca Stovall on 06-05-2025 Bilirubin Ql (U) Negative Negative mg/dL [facility] Clarity (U) Clear Clear [facility] Color (U) Light Yellow Lt. Yellow [facility] Glucose Ql (U) Normal Normal (<70) mg/dL [facility] Hemoglobin Ql (U) Negative Negative mg/dL [facility] Interpretation and review of laboratory results Abnormal [facility] Ketones (U) [Mass/Vol] 10 mg/dL Abnormal Negative [facility] Leukocyte esterase Test strip Ql (U) Negative Negative Ruby/uL [facility] Nitrite Ql (U) Negative Negative [facility] th pH (U) 6.5 [pH] 5.0 - 8.0 pH [facility] Protein (U) [Mass/Vol] Negative Negat reina mg/dL [facility] Specific gravity (U) [Rel density] 1.01 1.005 - 1.030 [facility] Urobilinogen (U) [Mass/Vol] Normal Normal (0-1) mg/dL [facility] A specimen with <=10 WBC is not consistent with inflammation. This specimen will not reflex to a urine culture. [facility] Vital signson 06-05-2025 Heart rate 83 /min bpm [facility] ANES POSTPROC EVALon 025 ANES POSTPROC EVAL HNO ID: [id number] Author: CELIA BRAY MD Service: ? Author Type: Anesthesiologist Type: Anesthesia Postprocedure Evaluation Filed: 05/29/2025 11:26 Note Text: POST ANESTHESIA EVALUATION NOTE : 1985 Procedure Summary Date: 05/29/25 Room / Location: [id number] / ANGIO HB6 Anesthesia Start: 828 Anesthesia Stop: 956 Procedure: SPINAL PUNCTURE LUMBAR DIAGNOSTIC (Spine) Diagnosis: IIH (idiopathic intracranial hypertension) (IIH (idiopathic intracranial hypertension) [G93.2]) Surgeons: Rosie Hernandez MD, MD Responsible Provider: Celia Bray MD Anesthesia Type: MAC ASA Status: 3 Anesthesia Type: MAC Last Vitals Vitals Value Taken Time BP 113/68 05/29/25 1030 Temp 36.9 05/29/25 1125 Pulse 76 05/29/25 1045 Resp 20 05/29/25 1045 SpO2 99 % 05/29/25 1045 Post Anesthesia Patient Status Patient Evaluation: bedside. Anticipated Disposition: phase 2 then home. Neurological Status: aware and responsive. Pulmonary Status: breathing comfortably on room air Airway Control: returned to baseline unsupported. Cardiovascular Status: stable. Pain Management: clinically adequate Postoperative Hydration: acceptable. Intraoperative Events: no significant anesthesia events Post Operative Nausea/Vomiting Status: no significant post operative nausea or vomiting Recommendation: continue current plan of care. Anesthesia Observations No notable events were associated with this procedure. Documented by Eusebio Wilburn APRN.SAFETY AND HEALTH CONSULTANT 05/29/2025 9:25 AM EDT SIGNATURE: Celia Bray MD PATIENT NAME: Lexis Nguyen DATE: May 29, 2025 TIME: 11:25 AM CSN: [id number] Normal [facility] ANES PRE-OPon 05-29-2025 ANES PRE-OP HNO ID: [id number] Author: CELIA BRAY MD Service: ? Author Type: Anesthesiologist Type: Anesthesia Preprocedure Evaluation Filed: 05/29/2025 07:31 Note Text: ANESTHESIOLOGY DAY OF SURGERY NOTE : 1985 Procedure Information Date/Time: 05/29/25 08 Procedure: SPINAL PUNCTURE LUMBAR DIAGNOSTIC (Spine) - [place] PER BILL ON 04/19 DATE/TIME TO BE DONE AND SCHEDULED WITH ANESTHESIA Please check opening pressure and leave within normal limits (~15) No additional lab orders required as this is mainly a therapeutic lumbar puncture Location: [id number] / [facility] ANGIO HB6 Surgeons: Rosie Hernandez MD, MD Estimated body mass index is 41.63 kg/m? as calculated from the following: Height as of 01/15/25: 162.6 cm (5' 4). Weight as of 02/05/25: 110 kg (242 lb 8.1 oz). Most recent hematocrit and potassium results: Hematocrit 39.1 01/29/2025 Potassium 3.8 10/10/2023 Relevant Problems CARDIO (+) Exhausted vascular access GI (+) Gastroesophageal reflux disease NEURO-PSYCH (+) Epilepsy (HCC) (+) Headaches I - PHYSICAL EVALUATION AIRWAY Patient intubated: No. Tracheostomy tube not present Mallampati: III. TM distance: >3 FB. Neck ROM: full ROM without neurological symptoms. Mouth opening: adequate. Short neck: no. Thick neck: no Rangel present: no Lip Bite Test: II DENTAL Dental findings: teeth intact and missing tooth/teeth. Additional exam findings: no II - ANESTHESIA PLAN ASA Score: 3 Anesthetic Plan: MAC NPO Status: adequate Beta Poncho Monitoring Plan Monitoring plan: standard ASA. Post Procedure Analgesic Plan Postoperative analgesic plan: per surgical service. Informed Consent Anesthetic risks, benefits, alternatives, personnel and consent discussed: yes. Patient / Responsible Libertarian agrees to proceed: yes Patient / Surrogate agrees to blood products: Yes DNR status not reviewed with patient and/or family prior to surgery. Significant changes in the patient condition since the History and Physical, not otherwise documented in primary service progress note: no. Potential Anesthesia issues that may suggest increased risk of complications or contraindication to planned procedure: none. Discussed the possibility of lip / dental damage: yes No vitals data found for the desired time range. No current facility-administered medications on file as of 05/29/2025. Outpatient Medications as of 05/29/2025 Medication Sig - SEMAGLUTIDE SUBCUTANEOUS Inject subcutaneously. - lidocaine, PF, (XYLOCAINE) 10 mg/mL (1 %) soln injection 1-10 mL by INTRADERMAL route as needed. For use during PICC/Midline Insertion ONLY. - omeprazole (PRILOSEC) 20 mg capsule Take 1 capsule by mouth once daily. - traMADol (ULTRAM) 50 mg tablet Take 1 tablet by mouth twice daily as needed for pain. - cyanocobalamin (VITAMIN B-12) 1,000 mcg tab Take 1 tablet by mouth once daily. - lacosamide (VIMPAT) 200 mg Take 1 tablet by mouth twice daily. - ARIPiprazole (ABILIFY) 10 mg tablet Take 10 mg by mouth once daily. - DULoxetine (CYMBALTA) 60 mg capsule duloxetine 60 mg capsule,delayed release TAKE 1 CAPSULE BY MOUTH TWICE DAILY - Calcium Citrate 250 mg calcium tab Take 1 tablet by mouth once daily. I have interviewed and examined the patient. I have reviewed the medical record and/or the pre-anesthesia evaluation, pertinent labs, and test results. This contains updated information obtained within 48 hours of Surgery/Procedure. SIGNATURE: Celia Bray MD PATIENT NAME: Lexis Nguyen DATE: May 29, 2025 TIME: 7:12 AM CSN: [id number] Normal [facility] BRIEF OP NOTon 05-29-2025 BRIEF OP NOT HNO ID: [id number] Author: JOSEFINA BAUTISTA MD Service: ? Author Type: Fellow Type: Brief Op Note Filed: 05/29/2025 11:50 Note Text: RADIOLOGY BRIEF PROCEDURE NOTE Procedure Date: May 29, 2025 Incision/Procedure Start Time: 9:22 AM Incision Close/Procedure End Time: 9:35 AM SURGEON(S)/PROCEDURALI ST(S) AND SCREEN CUTTER AND TRIMMER(S): Michele Bautista MD PROCEDURE: Fluoroscopic guided therapeutic lumbar puncture under general anesthesia PRE-PROCEDURE DIAGNOSIS: Suspected idiopathic intracranial hypertension POST-PROCEDURE DIAGNOSIS: Same ESTIMATED BLOOD LOSS: 0 ml SPECIMENS: None COMPLICATIONS: None FINDINGS: Successful lumbar puncture at L2-L3, opening pressure 17 cm h2o. 20 ml clear csf removed. PLAN: Patient was sent to post procedural unit without complication. SIGNATURE: Josefina Bautista MD PATIENT NAME: Lexis Nguyen DATE: May 29, 2025 TIME: 10:23 AM PAGER/CONTACT #: Normal [facility] IR LP FOR DRAINAGE (PRESSURE )on 05-29-2025 IR LP FOR DRAINAGE (PRESSURE) * * *Final Report* * * DATE OF EXAM: May 29 2025 9:35AM NDA 0853 - IR LP FOR DRAINAGE (PRESSURE) / PROCEDURE REASON: IIH (idiopathic intracranial hypertension) * * * * Physician Interpretation * * * * PROCEDURE: Fluoroscopic Guided therapeutic lumbar puncture under general anesthesia. HISTORY: The patient is a 40 years year old Female who presented with suspected idiopathic intracranial hypertension. Consent: The risks, benefits, treatment options, potential complications, equipment, and personnel to be involved were discussed (including the risks of radiation exposure, contrast and anesthesia administration) with the patient. All of her questions were answered and consent was obtained. The patient indicated she was willing to proceed. General: A) Medication Reconciliation: The patient's medications and allergies were reviewed in the electronic medical record and reconciled to the proposed procedure/treatment. B) Pre-Procedure Medications: Medication #1: Midazolam C) Positioning: The patient was placed left lateral decubitus on the fluoroscopy table. D) The Lumbar dorsal soft tissues at the L3-L4 level. were then sterile prepped and draped. E) Time Out: A time out was performed immediately prior to procedure start with the nursing, anesthesia and interventional team, correctly identifying the name, medical record number, procedure, anatomy (including marking of site and side), patient position, procedure consent form, relevant diagnostic and radiology test results, antibiotic administration, safety precautions, and procedure-specific equipment needs. Timeout Affirmation (if attending not present): Attending present Timeout Time and Procedure Start Time: 9:22 AM F) Anesthesia Type: administration of local anesthesia. Local Anesthesia: 1% Lidocaine G) Anesthesia Was Administered For A Total Of None. H) Patient Monitoring: Per anesthesia TECHNIQUE/RESULT: A) Access Site: 6 inch 22 gauge spinal needle from a right paramedian approach at the L3-L4 level. B) Counting reference: Lumbosacral junction. For the purposes of this report, L4-5 is considered the level of the iliac crest. C) Procedure Details: Using sterile procedure, local anesthesia was introduced to the skin and subcutaneous tissues as outlined above. Therapeutic LP Details: Therapeutic Volume: 20 ml of CSF was withdrawn in a sterile fashion from the subarachnoid space and forwarded to the laboratory for analysis. No contrast was administered Opening pressure was recorded at 17 cm H2O CSF Color: Clear D) Estimated Blood Loss: 0 mls E) Type of Removed Specimens: CSF F) Number of Specimens: 20 mL of clear CSF Fluoroscopic Radiation Summary: Plane A, Air Kerma: 20.6 mGy Fluoro time: 0:36 min:sec Post-Procedure: Conclusion: The patient was transferred to the Radiology Recovery Room in stable condition and observed for approximately one hour. Immediate Complications: None Delayed Complications (will be reported as an addendum to the original report): None Procedure End Time and Sign Out Time: 9:35 AM IMPRESSION: Successful fluoroscopic-guided therapeutic lumbar puncture with 20 mL of clear CSF removed. Attending Physician: Dr. Hernandez. Home Care Attendant: Michele Bauitsta MD The procedure was performed by the: the retirement assistant, and the attending radiologist was present. Heel Nailing Machine Operator: MILI Transcribe Date/Time: May 29 2025 12:14P Dictated by : JOSEFINA BAUTISTA MD This examination was interpreted and the report reviewed and electronically signed by: ROSIE HERNANDEZ MD on May 29 2025 3:44PM EST Normal [facility] NURSING PROGon 05-29-2025 NURSING PROG HNO ID: [id number] Author: BOLIVAR MICHELLE RN Service: Nursing Author Type: Registered Nurse Type: Nursing Progress Note Filed: 05/30/2025 08:43 Note Text: Completed post procedure phone call. Lexis Nguyen is feeling well and has returned to her baseline diet and activity. Denies questions or concerns related to her LP appointment on 05/29/2025 and had no surgical site concerns. Bolivar Michelle RN Normal [facility] PT EDon 05-29-2025 PT ED HNO ID: [id number] Author: JUDY CLOUD RN Service: Interventional Radiology Author Type: Registered Nurse Type: Patient Education Filed: 05/29/2025 08:34 Note Text: AMBULATORY PATIENT EDUCATION TOPIC: Survival Skills: HEALTH PROMOTION: Complication prevention Self management READINESS TO LEARN COGNITIVE ABILITY: Alert and oriented MOTIVATION TO LEARN: Interested FAMILY SUPPORT: High - Very involved in pt care INSTRUCTION PROVIDED TO: Patient and Family member PATIENT LEARNS BEST BY: Individual Instruction Verbal Instruction FACTORS AFFECTING LEARNING: None PHYSICAL LIMITATIONS AFFECTING LEARNING: None LEARNING RESPONSE DIAGNOSIS: idiopathic intracranial hypertension METHOD OF INSTRUCTION: Individual instruction Verbal instruction PATIENT / FAMILY RESPONSE: Verbalizes understanding of: POST-PROCEDURE INSTRUCTIONS-Correct actions to take to reduce post procedure complications PRE-PROCEDURE INSTRUCTIONS-Correct action to take to follow pre-procedure instructions FOLLOW-UP PLAN: Follow-up with Primary Care SUPPLEMENTAL MATERIAL: None REFERRAL (RECOMMENDATION): None Electronically Signed By: Judy Cloud RN In Department: HOSP MAIN [id number] Normal [facility] BASIC METABOLIC PANELon Anion gap [Moles/Vol] 4 mmol/L Normal 3-13 [facility] Comment on above: Performed By: #### L AB15 ####Rn Eligibility: AMANDA SNYDER ([phone])[facility] ([place] [id number] [place] Calcium [Mass/Vol] 7.9 mg/dL Low 8.4-10.2 [facility] Comment on above: Performed By: #### L AB15 ####Rn Eligibility: AMANDA SNYDER ([phone])[facility] [place] [address] Chloride [Moles/Vol] 108 mmol/L High 98-107 [facility] Comment on above: Performed By: #### L AB15 ####Rn Eligibility: AMANDA SNYDER ([phone])[facility] [place] [address] CO2 [Moles/Vol] 28 mmol/L Normal 22-29 [facility] Comment on above: Performed By: #### L AB15 ####Rn Eligibility: AMANDA SNYDER ([phone])[facility] ([facility])[address] [place] [address] Creatinine [Mass/Vol] 0.65 mg/dL Normal 0.57-1.11 [facility] Comment on above: Performed By: #### L AB15 ####Rn Eligibility: AMANDA SNYDER ([phone])[facility] ([facility])[address] [place] [address] GLOMERULAR FILTRATION RATE ML/MIN/1.73 SQ M.PREDICTED >90.0 Normal >60.0 [facility] Comment on above: Result Comment: Calc ulation based on the Chronic Kidney Disease Epidemiology Collaboration (CKD-EPI) equation refit without adjustment for race Performed By: #### L AB15 ####Rn Eligibility: AMANDA SNYDER ([phone])[facility] ([facility])[address] [place] [address] [place] Glucose [Mass/Vol] 85 mg/dL Normal 74-100 [facility] Comment on above: Performed By: #### L AB15 ####Rn Eligibility: AMANDA SNYDER ([phone])[facility] ([facility])[address] [place] [address] [place] Potassium [Moles/Vol] 4.0 mmol/L Normal 3.5-5.1 [facility] Comment on above: Result Comment: [facility] potassium values may be up to 0.5 mmol/L lower than serum values. Performed By: #### L AB15 ####Rn Eligibility: AMANDA SNYDER ([phone])[facility] ([facility])[address] [place] [address] Sodium [Moles/Vol] 140 mmol/L Normal 136-145 [facility] Comment on above: Performed By: #### L AB15 ####Rn Eligibility: AMANDA SNYDER ([phone])[facility] ([facility])[address] [place] [address] Urea nitrogen [Mass/Vol] 5 mg/dL Low 8-21 [facility] Comment on above: Performed By: #### L AB15 ####Rn Eligibility: AMANDA SNYDER ([phone])[facility] ([facility])[address] [place] [address] Basic metabolic 1998 panelon 05-28-2025 Anion gap [Moles/Vol] 4 mmol/L 3 - 13 mmol/L [facility] Calcium [Mass/Vol] 7.9 mg/dL Low 8.4 - 10. 2 mg/dL [facility] Chloride [Moles/Vol] 108 mmol/L High 98 - 10 7 mmol/L [facility] CO2 [Moles/Vol] 28 mmol/L 22 - 29 mmol/L [facility] Creatinine [Mass/Vol] 0.65 mg/dL 0.57 - 1.11 mg/dL [facility] GFR/1.73 sq M.predicted (S/P/Bld) [Vol rate/Area] - PINF [facility] Comment on above: Calculation based on the Chronic Kidney Disease Epidemiology Collaboration (CKD-EPI) equation refit without adjustment for race Glucose [Mass/Vol] 85 mg/dL 74 - 100 mg/dL [facility] Interpretation and review of laboratory results Abnormal [facility] Potassium [Moles/Vol] 4 mmol/L 3.5 - 5.1 mmol/L [facility] Comment on above: Plasma potassium cami ues may be up to 0.5 mmol/L lower than serum values. Sodium [Moles/Vol] 140 mmol/L 136 - 145 mmol/L [facility] Urea nitrogen [Mass/Vol] 5 mg/dL Low 8 - 21 mg/dL [facility] CBC W Auto Differential pane l (Bld)on 05-28-2025 Basophils (Bld) [#/Vol] 0 10*3/uL 0.0 - 0.2 10*3/uL [facility] Basophils/100 WBC (Bld) 0.6 % 0.0 - 2.0 % [facility] Eosinophils (Bld) [#/Vol] 0.1 10*3/uL 0.0 - 0.5 10*3/uL [facility] Eosinophils/100 WBC (Bld) 1.7 % 0.0 - 6.0 % [facility] Erythrocyte distribution width (RBC) [Ratio] 13.6 % 11.5 - 15.0 % [facility] Hematocrit (Bld) [Volume fraction] 37.7 % 35.0 - 47.0 % [facility] Hemoglobin (Bld) [Mass/Vol] 12.1 g/dL 11.7 - 16.0 g/dL [facility] Immature granulocytes (Bld) [#/Vol] 0 10*3/uL NINF - 0.1 10*3/uL [facility] Immature granulocytes/100 WBC (Bld) 0.4 % 0.0 - 2.0 % [facility] Interpretation and review of laboratory results Normal [facility] Lymphocytes (Bld) [#/Vol] 2.7 10*3/uL 1.0 - 4.3 10*3/uL [facility] Lymphocytes/100 WBC (Bld) 38.9 % 15.0 - 45.0 % [facility] MCH (RBC) [Entitic mass] 30.4 pg 26. 0 - 34.0 pg [facility] MCHC (RBC) [Mass/Vol] 32.1 % 30.5 - 36.0 % [facility] MCV (RBC) [Entitic vol] 94.7 fL 77.0 - 99.0 fL [facility] Monocytes (Bld) [#/Vol] 0.5 10*3/uL 0.0 - 0.9 10*3/uL [facility] Monocytes/100 WBC (Bld) 7.2 % 5.0 - 13.0 % [facility] Neutrophils (Bld) [#/Vol] 3.6 10*3/uL 1.8 - 7.5 10*3/uL [facility] Neutrophils/100 WBC (Bld) 51.2 % 38.0 - 82.0 % [facility] Nucleated RBC/100 WBC (Bld) [Ratio] 0 % [facility] Platelet mean volume (Bld) [Entitic vol] 10.4 fL 9.0 - 12.7 fL [facility] Platelets (Bld) [#/Vol] 204 10*3/uL 140 - 440 10*3/uL [facility] RBC (Bld) [#/Vol] 3.98 10*6/uL 3.80 - 5.2 0 10*6/uL [facility] WBC (Bld) [#/Vol] 7 10*3/uL 3.6 - 10.7 10*3/uL [facility] CBC WITH AUTO DIFFERENTIALon 05-28-2025 Basophils (Bld) [#/Vol] 0.0 10*3/uL Normal 0.0-0.2 [facility] Comment on above: Performed By: #### L [id number] ####Rn Eligibility: AMANDA SNYDER ([phone])[facility] ([facility])[address] [place] [address] Basophils/100 WBC (Bld) 0.6 % Normal 0.0-2.0 [facility] Comment on above: Performed By: #### L [id number] ####Rn Eligibility: AMANDA SNYDER ([phone])[facility])[address] [place] [address] [place] Eosinophils (Bld) [#/Vol] 0.1 10*3/uL Normal 0.0-0.5 [facility] Comment on above: Performed By: #### L [id number] ####Rn Eligibility: AMANDA SNYDER ([phone])[facility])[address] [place] [address] [place] Eosinophils/100 WBC (Bld) 1.7 % Normal 0.0-6.0 [facility] Comment on above: Performed By: #### L [id number] ####Rn Eligibility: AMANDA [phone])[facility])[address] [place] [address] Erythrocyte distribution width (RBC) [Ratio] 13.6 % Normal 11.5-15.0 [facility] Comment on above: Performed By: #### L [id number] ####Rn Eligibility: AMANDA SNYDER ([phone])[facility])[address] [place] [address] Hematocrit (Bld) [Volume fraction] 37.7 % Normal 35.0-47.0 [facility] Comment on above: Performed By: #### L [id number] ####Rn Eligibility: AMANDA SNYDER ([phone])[facility])[address] [place] [address] Hemoglobin (Bld) [Mass/Vol] 12.1 g/dL Normal 11.7-16.0 [facility] Comment on above: Performed By: #### L [id number] ####Rn Eligibility: AMANDA SNYDER ([phone])[facility])[address] [place] [address] IMMATURE GRANS % 0.4 % Normal 0.0-2.0 [facility] Comment on above: Performed By: #### L [id number] ####Rn Eligibility: AMANDA SNYDER ([phone])[facility] [facility])[address] [place] [address] IMMATURE GRANS ABSOLUTE 0.0 10*3/uL Normal <0.1 [facility] Comment on above: Performed By: #### L [id number] ####Rn Eligibility: AMANDA SNYDER ([phone])[facility])[address] [place] [address] Lymphocytes (Bld) [#/Vol] 2.7 10*3/uL Normal 1.0-4.3 [facility] Comment on above: Performed By: #### L [id number] ####Rn Eligibility: AMANDA SNYDER ([phone])[facility])[address] [place] [address] Lymphocytes/100 WBC (Bld) 38.9 % Normal 15.0-45.0 [facility] Comment on above: Performed By: #### L [id number] ####Rn Eligibility: AMANDA SNYDER ([phone])[facility])[address] [place] [address] MCH (RBC) [Entitic mass] 30.4 pg Normal 26.0-34.0 [facility] Comment on above: Performed By: #### L [id number] ####Rn Eligibility: AMANDA SNYDER ([phone])[facility])[address] [place] [address] MCHC 32.1 % Normal 30.5-36.0 [facility] Comment on above: Performed By: #### L [id number] ####Rn Eligibility: AMANDA SNYDER ([phone])[facility])[address] [place] [address] MCV (RBC) [Entitic vol] 94.7 fL Normal 77.0-99.0 [facility] Comment on above: Performed By: #### L [id number] ####Rn Eligibility: AMANDA SNYDER ([phone])[facility])[address] [place] [address] Monocytes (Bld) [#/Vol] 0.5 10*3/uL Normal 0.0-0.9 [facility] Comment on above: Performed By: #### L [id number] ####Rn Eligibility: AMANDA SNYDER ([phone])[facility])[address] [place] [address] Monocytes/100 WBC (Bld) 7.2 % Normal 5.0-13.0 [facility] Comment on above: Performed By: #### L [id number] ####Rn Eligibility: AMANDA SNYDER ([phone])[facility])[address] [place] [address] NEUTROPHILS ABSOLUTE 3.6 10*3/uL Normal 1.8-7.5 [facility] Comment on above: Performed By: #### L [id number] ####Rn Eligibility: AMANDA SNYDER ([phone])[facility] ([facility])[address] [place] [address] Neutrophils/100 WBC (Bld) 51.2 % Normal 38.0-82.0 [facility] Comment on above: Performed By: #### L [id number] ####Rn Eligibility: AMANDA SNYDER ([phone])[facility] ([facility])[address] [place] [address] NRBC 0.0 /100 WBCs Normal 0.0-2.0 [facility] Comment on above: Performed By: #### L [id number] ####Rn Eligibility: AMANDA SNYDER ([phone])[facility] ([facility])[address] [place] [address] Platelet mean volume (Bld) [Entitic vol] 10.4 fL Normal 9.0-12.7 [facility] Comment on above: Performed By: #### L [id number] ####Rn Eligibility: AMANDA SNYDER ([phone])[facility] ([facility])[address] [place] [address] Platelets (Bld) [#/Vol] 204 10*3/uL Normal 140-440 [facility] Comment on above: Performed By: #### L [id number] ####Rn Eligibility: AMANDA SNYDER ([phone])[facility] ([facility])[address] [place] [address] RBC (Bld) [#/Vol] 3.98 10*6/uL Normal 3.80-5.20 [facility] Comment on above: Performed By: #### L [id number] ####Rn Eligibility: AMANDA SNYDER ([phone])[facility])[address] [place] [address] [place] WBC (Bld) [#/Vol] 7.0 10*3/uL Normal 3.6-10.7 [facility] Comment on above: Performed By: #### L [id number] ####Rn Eligibility: AMANDA SNYDER ([phone])[facility] ([facility])[address] [place] [address] Laboratory - Chemistry and C hemistry - challengeon 05-28-2025 Glucose [Mass/Vol] 83 mg/dL 70 - 100 mg/dL [facility] Glucose [Mass/Vol] 78 mg/dL 70 - 100 mg/dL [facility] No Panel Informationon 05-28 Interpretation and review of laboratory results Normal [facility] Performed by: [facility], [address] [place] [address] CLIA ID: [id number] [facility] Interpretation and review of laboratory results Normal [facility] Performed by: [facility], [address] [place] [address] CLIA ID: [id number] [facility] Nursing Noteon 05-28-2025 Nursing Note Normal [facility] Nursing Note Patient given discharge paperwork/instructions . IV removed. Meds delivered by [facility] pharmacy. Declined transport request. at bedside. All questions and concerns addressed. Normal [facility] Progress Noteon 05-28-2025 Progress Note Normal [facility] 30on 05-27-2025 30 Normal [facility] CBC W Auto Differential pane l (Bld)on 05-27-2025 Basophils (Bld) [#/Vol] 0 10*3/uL 0.0 - 0.2 10*3/uL [facility] Basophils/100 WBC (Bld) 0.4 % 0.0 - 2.0 % [facility] Eosinophils (Bld) [#/Vol] 0.1 10*3/uL 0.0 - 0.5 10*3/uL [facility] Eosinophils/100 WBC (Bld) 0.7 % 0.0 - 6.0 % [facility] Erythrocyte distribution width (RBC) [Ratio] 13.4 % 11.5 - 15.0 % [facility] Hematocrit (Bld) [Volume fraction] 37.2 % 35.0 - 47.0 % [facility] Hemoglobin (Bld) [Mass/Vol] 12.1 g/dL 11.7 - 16.0 g/dL [facility] Immature granulocytes (Bld) [#/Vol] 0 10*3/uL NINF - 0.1 10*3/uL [facility] Immature granulocytes/100 WBC (Bld) 0.4 % 0.0 - 2.0 % [facility] Interpretation and review of laboratory results Abnormal [facility] Lymphocytes (Bld) [#/Vol] 1.1 10*3/uL 1.0 - 4.3 10*3/uL [facility] Lymphocytes/100 WBC (Bld) 13.4 % Low 15.0 - 45.0 % [facility] MCH (RBC) [Entitic mass] 30.6 pg 26. 0 - 34.0 pg [facility] MCHC (RBC) [Mass/Vol] 32.5 % 30.5 - 36.0 % [facility] MCV (RBC) [Entitic vol] 94.2 fL 77.0 - 99.0 fL [facility] Monocytes (Bld) [#/Vol] 0.4 10*3/uL 0.0 - 0.9 10*3/uL [facility] Monocytes/100 WBC (Bld) 5.3 % 5.0 - 13.0 % [facility] Neutrophils (Bld) [#/Vol] 6.7 10*3/uL 1.8 - 7.5 10*3/uL [facility] Neutrophils/100 WBC (Bld) 79.8 % 38.0 - 82.0 % [facility] Nucleated RBC/100 WBC (Bld) [Ratio] 0 % [facility] Platelet mean volume (Bld) [Entitic vol] 9.9 fL 9.0 - 12.7 fL [facility] Platelets (Bld) [#/Vol] 205 10*3/uL 140 - 440 10*3/uL [facility] RBC (Bld) [#/Vol] 3.95 10*6/uL 3.80 - 5.2 0 10*6/uL [facility] WBC (Bld) [#/Vol] 8.4 10*3/uL 3.6 - 10.7 10*3/uL [facility] CBC WITH AUTO DIFFERENTIALon 05-27-2025 Basophils (Bld) [#/Vol] 0.0 10*3/uL Normal 0.0-0.2 [facility] Comment on above: Performed By: #### L [id number] ####Rn Eligibility: AMANDA SNYDER ([phone])[facility] [place] [address] Basophils/100 WBC (Bld) 0.4 % Normal 0.0-2.0 [facility] Comment on above: Performed By: #### L [id number] ####Rn Eligibility: AMANDA SNYDER ([phone])[facility])[address] [place] [address] Eosinophils (Bld) [#/Vol] 0.1 10*3/uL Normal 0.0-0.5 [facility] Comment on above: Performed By: #### L [id number] ####Rn Eligibility: AMANDA SNYDER ([phone])[address] Eosinophils/100 WBC (Bld) 0.7 % Normal 0.0-6.0 [facility] Comment on above: Performed By: #### L [id number] ####Rn Eligibility: AMANDA SNYDER ([phone])[facility])[address] [place] [address] Erythrocyte distribution width (RBC) [Ratio] 13.4 % Normal 11.5-15.0 [facility] Comment on above: Performed By: #### L [id number] ####Rn Eligibility: AMANDA SNYDER ([phone])[address] Hematocrit (Bld) [Volume fraction] 37.2 % Normal 35.0-47.0 [facility] Comment on above: Performed By: #### L [id number] ####Rn Eligibility: AMANDA SNYDER ([phone])[address] Hemoglobin (Bld) [Mass/Vol] 12.1 g/dL Normal 11.7-16.0 [facility] Comment on above: Performed By: #### L [id number] ####Rn Eligibility: AMANDA SNYDER ([phone])[facility])[address] [place] [address] IMMATURE GRANS % 0.4 % Normal 0.0-2.0 [facility] Comment on above: Performed By: #### L [id number] ####Rn Eligibility: AMANDA SNYDER ([phone])[facility])[address] [place] [address] IMMATURE GRANS ABSOLUTE 0.0 10*3/uL Normal <0.1 [facility] Comment on above: Performed By: #### L [id number] ####Rn Eligibility: AMANDA SNYDER ([phone])[facility])[address] [place] [address] Lymphocytes (Bld) [#/Vol] 1.1 10*3/uL Normal 1.0-4.3 [facility] Comment on above: Performed By: #### L [id number] ####Rn Eligibility: AMANDA SNYDER ([phone])[address] Lymphocytes/100 WBC (Bld) 13.4 % Low 15.0-45.0 [facility] Comment on above: Performed By: #### L [id number] ####Rn Eligibility: AMANDA SNYDER ([id number])[address] MCH (RBC) [Entitic mass] 30.6 pg Normal 26.0-34.0 [facility] Comment on above: Performed By: #### L [id number] ####Rn Eligibility: AMANDA SNYDER ([phone])[address] MCHC 32.5 % Normal 30.5-36.0 [facility] Comment on above: Performed By: #### L [id number] ####Rn Eligibility: AMANDA SNYDER ([phone])[address] MCV (RBC) [Entitic vol] 94.2 fL Normal 77.0-99.0 [facility] Comment on above: Performed By: #### L [id number] ####Rn Eligibility: AMANDA SNYDER ([phone])[facility] ([facility])[address] [place] [address] Monocytes (Bld) [#/Vol] 0.4 10*3/uL Normal 0.0-0.9 [facility] Comment on above: Performed By: #### L [id number] ####Rn Eligibility: AMANDA SNYDER ([phone])[facility] ([facility])[address] [place] [address] Monocytes/100 WBC (Bld) 5.3 % Normal 5.0-13.0 [facility] Comment on above: Performed By: #### L [id number] ####Rn Eligibility: AMANDA SNYDER ([phone])[facility] ([facility])[address] [place] [address] NEUTROPHILS ABSOLUTE 6.7 10*3/uL Normal 1.8-7.5 [facility] Comment on above: Performed By: #### L [id number] ####Rn Eligibility: AMANDA SNYDER ([phone])[facility] ([facility])[address] [place] [address] Neutrophils/100 WBC (Bld) 79.8 % Normal 38.0-82.0 [facility] Comment on above: Performed By: #### L [id number] ####Rn Eligibility: AMANDA SNYDER ([phone])[facility] ([facility])[address] [place] [address] NRBC 0.0 /100 WBCs Normal 0.0-2.0 [facility] Comment on above: Performed By: #### L [id number] ####Rn Eligibility: AMANDA SNYDER ([phone])[facility] ([facility])[address] [place] [address] Platelet mean volume (Bld) [Entitic vol] 9.9 fL Normal 9.0-12.7 [facility] Comment on above: Performed By: #### L [id number] ####Rn Eligibility: AMANDA SNYDER ([phone])[facility] ([facility])[address] [place] [address] Platelets (Bld) [#/Vol] 205 10*3/uL Normal 140-440 [facility] Comment on above: Performed By: #### L [id number] ####Rn Eligibility: AMANDA SNYDER ([phone])[facility] ([facility])[address] [place] [address] RBC (Bld) [#/Vol] 3.95 10*6/uL Normal 3.80-5.20 [facility] Comment on above: Performed By: #### L [id number] ####Rn Eligibility: AMANDA SNYDER ([phone])[facility])[address] [place] [address] WBC (Bld) [#/Vol] 8.4 10*3/uL Normal 3.6-10.7 [facility] Comment on above: Performed By: #### L [id number] ####Rn Eligibility: AMANDA SNYDER ([phone])[facility] ([facility])[address] [place] [address] COMPREHENSIVE METABOLIC PANE Kj 05-27-2025 Albumin [Mass/Vol] 3.2 g/dL Low 3.5-5.0 [facility] Comment on above: Performed By: #### L AB17, LAB99 ####Rn Eligibility: AMANDA SNYDER ([phone])[facility] ([facility])[address] [place] [address] ALP [Catalytic activity/Vol] 84 U/L Normal 40-150 [facility] Comment on above: Performed By: #### L AB17, LAB99 ####Rn Eligibility: AMANDA SNYDER ([phone])[facility])[address] [place] [address] ALT [Catalytic activity/Vol] 14 U/L Normal <30 [facility] Comment on above: Performed By: #### L AB17, LAB99 ####Rn Eligibility: AMANDA SNYDER ([phone])[facility])[address] [place] [address] Anion gap [Moles/Vol] 6 mmol/L Normal 3-13 [facility] Comment on above: Performed By: #### L AB17, LAB99 ####Rn Eligibility: AMANDA SNYDER ([phone])[facility] ([facility])[address] [place] [address] AST [Catalytic activity/Vol] 15 U/L Normal <34 [facility] Comment on above: Performed By: #### L AB17, LAB99 ####Rn Eligibility: AMANDA SNYDER ([phone])[facility] ([facility])[address] [place] [address] Bilirubin [Mass/Vol] 0.4 mg/dL Normal <1.2 [facility] Comment on above: Performed By: #### L AB17, LAB99 ####Rn Eligibility: AMANDA SNYDER ([phone])[facility] ([facility])[address] [place] [address] Calcium [Mass/Vol] 8.1 mg/dL Low 8.4-10.2 [facility] Comment on above: Performed By: #### L AB17, LAB99 ####Rn Eligibility: AMANDA SNYDER ([phone])[facility] ([facility])[address] [place] [address] Chloride [Moles/Vol] 104 mmol/L Normal 98-107 [facility] Comment on above: Performed By: #### L AB17, LAB99 ####Rn Eligibility: AMANDA SNYDER ([phone])[facility] ([facility])[address] [place] [address] [place] CO2 [Moles/Vol] 28 mmol/L Normal 22-29 [facility] Comment on above: Performed By: #### L AB17, LAB99 ####Rn Eligibility: AMANDA SNYDER ([phone])[facility])[address] [place] [address] Creatinine [Mass/Vol] 0.68 mg/dL Normal 0.57-1.11 [facility] Comment on above: Performed By: #### L AB17, LAB99 ####Rn Eligibility: AMANDA SNYDER ([phone])[facility])[address] [place] [address] [place] GLOMERULAR FILTRATION RATE ML/MIN/1.73 SQ M.PREDICTED >90.0 Normal >60.0 [facility] Comment on above: Result Comment: Calc ulation based on the Chronic Kidney Disease Epidemiology Collaboration (CKD-EPI) equation refit without adjustment for race Performed By: #### Norbert FERREIRA17, LAB99 ####Rn Eligibility: AMANDA SNYDER ([phone])[facility] ([facility])[address] [place] [address] [place] Glucose [Mass/Vol] 88 mg/dL Normal 74-100 [facility] Comment on above: Performed By: #### Norbert SIMS, LAB99 ####Rn Eligibility: AMANDA SNYDER ([phone])[facility])[address] [place] [address] [place] Potassium [Moles/Vol] 4.1 mmol/L Normal 3.5-5.1 [facility] Comment on above: Result Comment: [facility] potassium values may be up to 0.5 mmol/L lower than serum values. Performed By: #### Norbert SIMS, LAB99 ####Rn Eligibility: AMANDA SNYDER ([phone])[facility])[address] [place] [address] [place] Protein [Mass/Vol] 5.7 g/dL Low 6.4-8.3 [facility] Comment on above: Performed By: #### L 17, LAB99 ####Rn Eligibility: AMANDA SNYDER ([phone])[facility])[address] [place] [address] [place] Sodium [Moles/Vol] 138 mmol/L Normal 136-145 [facility] Comment on above: Performed By: #### L AB17, LAB99 ####Rn Eligibility: AMANDA SNYDER ([phone])[facility])[address] [place] [address] [place] Urea nitrogen [Mass/Vol] 7 mg/dL Low 8-21 [facility] Comment on above: Performed By: #### L AB17, LAB99 ####Rn Eligibility: AMANDA SNYDER ([phone])[facility] [place] [address] [place] ABDOMEN PELVIS WO IV CONT RASTon 05-27-2025 CT ABDOMEN PELVIS WO IV CONTRAST Normal [facility] CT Abdomen and Pelvis WO con traston 05-27-2025 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 No evidence of obstruction. Oral contrast administered for this examination reaches the proximal colon. Report Dictated on Electronically Signed By: Alfredito Gay MD Electronically Signed Date/Time: 05/27/2025 1:05 PM EDT [facility] [employer] Patient Name: LEXIS NUGYEN : 1985 Exam Date/Time: 05/27/2025 12:49 Procedure: CT ABDOMEN PELVIS WO IV CONTRAST Ordering Provider: THOMASON KEVIN Reason For Exam: Abdominal pain, post-op; epigastric pain CT ABDOMEN AND PELVIS WITHOUT CONTRAST CLINICAL INDICATION: Postoperative abdominal pain Axial CT images of the abdomen and pelvis were acquired without intravenous contrast. Dose reduction was employed with automated exposure control. Oral contrast was not given for this examination. COMPARISON: CT performed 05/26/2025 with intravenous contrast FINDINGS: Evaluation of the solid organs is limited on this noncontrast examination. The gallbladder has been removed. The liver, spleen, pancreas, adrenal glands and kidneys appear within normal limits. The abdominal aorta is normal in caliber. There is no retroperitoneal, pelvic, or inguinal lymphadenopathy. The urinary bladder appears grossly normal. The uterus has been removed. 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 No abnormal bowel thickening or dilatation is seen. Oral contrast administered for this examination reaches the proximal colon. There is no free air or free fluid within the abdomen or pelvis. The visualized portion of the lung bases appear clear. No lytic or blastic lesions are seen on the bone windows. [facility] Alfredito Gay MD - 05/27/2025 Patient Name: LEXIS NGUYEN : 1985 [facility]#: [id number] Exam Date/Time: 05/27/2025 12:49 Procedure: CT ABDOMEN PELVIS WO IV CONTRAST Ordering Provider: THOMASON KEVIN Reason For Exam: Abdominal pain, post-op; epigastric pain CT ABDOMEN AND PELVIS WITHOUT CONTRAST CLINICAL INDICATION: Postoperative abdominal pain Axial CT images of the abdomen and pelvis were acquired without intravenous contrast. Dose reduction was employed with automated exposure control. Oral contrast was not given for this examination. COMPARISON: CT performed 05/26/2025 with intravenous contrast FINDINGS: Evaluation of the solid organs is limited on this noncontrast examination. The gallbladder has been removed. The liver, spleen, pancreas, adrenal glands and kidneys appear within normal limits. The abdominal aorta is normal in caliber. There is no retroperitoneal, pelvic, or inguinal lymphadenopathy. The urinary bladder appears grossly normal. The uterus has been removed. 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 No abnormal bowel thickening or dilatation is seen. Oral contrast administered for this examination reaches the proximal colon. There is no free air or free fluid within the abdomen or pelvis. The visualized portion of the lung bases appear clear. No lytic or blastic lesions are seen on the bone windows. 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 No evidence of obstruction. Oral contrast administered for this examination reaches the proximal colon. Report Dictated on Electronically Signed By: Alfredito Gay MD Electronically Signed Date/Time: 05/27/2025 1:05 PM EDT [facility] Radiology Study observation (narrative) [facility] CT Abdomen and Pelvis WO con trastOrdered By: Alfredito Gay on 05-27-2025 [facility] Comprehensive metabolic 1998 panelOrdered By: Monika Martinez on 05-27-2025 Albumin [Mass/Vol] 3.2 g/dL Low 3.5 - 5.0 g/dL [facility] ALP [Catalytic activity/Vol] 84 U/L 40 - 150 U/L [facility] ALT [Catalytic activity/Vol] 14 U/L NINF - 30 U/L [facility] Anion gap [Moles/Vol] 6 mmol/L 3 - 13 mmol/L [facility] AST [Catalytic activity/Vol] 15 U/L NINF - 34 U/L [facility] Bilirubin [Mass/Vol] 0.4 mg/dL NINF - 1.2 mg/dL [facility] Calcium [Mass/Vol] 8.1 mg/dL Low 8.4 - 10. 2 mg/dL [facility] Chloride [Moles/Vol] 104 mmol/L 98 - 10 7 mmol/L [facility] CO2 [Moles/Vol] 28 mmol/L 22 - 29 mmol/L [facility] Creatinine [Mass/Vol] 0.68 mg/dL 0.57 - 1.11 mg/dL [facility] GFR/1.73 sq M.predicted (S/P/Bld) [Vol rate/Area] - PINF [facility] Comment on above: Calculation based on the Chronic Kidney Disease Epidemiology Collaboration (CKD-EPI) equation refit without adjustment for race Glucose [Mass/Vol] 88 mg/dL 74 - 100 mg/dL [facility] Interpretation and review of laboratory results Abnormal [facility] Potassium [Moles/Vol] 4.1 mmol/L 3.5 - 5.1 mmol/L [facility] Comment on above: Plasma potassium cami ues may be up to 0.5 mmol/L lower than serum values. Protein [Mass/Vol] 5.7 g/dL Low 6.4 - 8.3 g/dL [facility] Sodium [Moles/Vol] 138 mmol/L 136 - 145 mmol/L [facility] Urea nitrogen [Mass/Vol] 7 mg/dL Low 8 - 21 mg/dL [facility] Consulton 05-27-2025 Consult Normal [facility] ED Provider Noteon ED Provider Note Normal [facility] LIPASEon 05-27-2025 Lipase [Catalytic activity/Vol] 18 U/L Normal <55 [facility] Comment on above: Performed By: #### L AB17, LAB99 ####Rn Eligibility: AMANDA SNYDER ([phone])[facility] ([address] Laboratory - Chemistry and C hemistry - challengeon 05-27-2025 Glucose [Mass/Vol] 86 mg/dL 70 - 100 mg/dL [facility] Glucose [Mass/Vol] 96 mg/dL 70 - 100 mg/dL [facility] Glucose [Mass/Vol] 91 mg/dL 70 - 100 mg/dL [facility] Glucose [Mass/Vol] 75 mg/dL 70 - 100 mg/dL [facility] Glucose [Mass/Vol] 55 mg/dL Low 70 - 100 mg/dL [facility] Lipase [Catalytic activity/Vol] 18 U/L NINF - 55 U/L [facility] Lipase [Catalytic activity/V ol]on 05-27-2025 Interpretation and review of laboratory results Normal [facility] No Panel Informationon 05-27 Interpretation and review of laboratory results Normal [facility] Performed by: [facility], [address] [place] [address], [facility] [address] CLIA ID: [id number] [facility] Interpretation and review of laboratory results Normal [facility] Performed by: [facility], [address] [place] [address], [facility] [address] CLIA ID: [id number] [facility] Interpretation and review of laboratory results Normal [facility] Performed by: [facility], [address] [place] [address], [facility] [address] CLIA ID: [id number] [facility] Interpretation and review of laboratory results Normal [facility] Performed by: [facility], [address] [place] [address], [facility] [address] CLIA ID: [id number] [facility] Interpretation and review of laboratory results Abnormal [facility] Performed by: [facility], [address] [place] [address], [facility] [address] CLIA ID: [id number] [facility] Progress Noteon 05-27-2025 Progress Note Normal [facility] BASIC METABOLIC PANELon Anion gap [Moles/Vol] 8 mmol/L Normal 3-13 [facility] Comment on above: Performed By: #### L AB20, LAB15, LAB99 ####Rn Eligibility: BELLA COLLINS ([id number])[facility] (SHCLAB)[address] Calcium [Mass/Vol] 8.0 mg/dL Low 8.4-10.2 [facility] Comment on above: Performed By: #### L AB20, LAB15, LAB99 ####Rn Eligibility: BELLA COLLINS ([phone])[facility] [place] [address] [place] Chloride [Moles/Vol] 106 mmol/L Normal 98-107 [facility] Comment on above: Performed By: #### L AB20, LAB15, LAB99 ####Rn Eligibility: BELLA COLLINS ([phone])[facility] [place] ([facility] [place] [address] [facility] CO2 [Moles/Vol] 22 mmol/L Normal 22-29 [facility] Comment on above: Performed By: #### L AB20, LAB15, LAB99 ####Rn Eligibility: BELLA COLLINS ([phone])[facility] [place] ([facility] [place] [place] [address] [place] Creatinine [Mass/Vol] 0.67 mg/dL Normal 0.57-1.11 [facility] Comment on above: Performed By: #### L AB20, LAB15, LAB99 ####Rn Eligibility: BELLA COLLINS ([phone])[facility] [place] ([facility])[address] [place] [address] [facility] GLOMERULAR FILTRATION RATE ML/MIN/1.73 SQ M.PREDICTED >90.0 Normal >60.0 [facility] Comment on above: Result Comment: Calc ulation based on the Chronic Kidney Disease Epidemiology Collaboration (CKD-EPI) equation refit without adjustment for race Performed By: #### L AB20, LAB15, LAB99 ####Rn Eligibility: BELLA COLLINS ([phone])[facility] [place] ([facility])[address] [place] [address] [place] Glucose [Mass/Vol] 83 mg/dL Normal 74-100 [facility] Comment on above: Performed By: #### L AB20, LAB15, LAB99 ####Rn Eligibility: BELLA COLLINS ([phone])[facility] [place] [address] [facility] Potassium [Moles/Vol] 5.1 mmol/L Normal 3.5-5.1 [facility] Comment on above: Result Comment: TCPo tential interference from hemolysis Performed By: #### L AB20, LAB15, LAB99 ####Rn Eligibility: BELLA COLLINS ([phone])[facility] ([facility])[address] Sodium [Moles/Vol] 136 mmol/L Normal 136-145 [facility] Comment on above: Performed By: #### L AB20, LAB15, LAB99 ####Rn Eligibility: BELLA COLLINS ([phone])[facility] ([facility])[address] Urea nitrogen [Mass/Vol] 7 mg/dL Low 8-21 [facility] Comment on above: Performed By: #### L AB20, LAB15, LAB99 ####Rn Eligibility: BELLA COLLINS ([phone])[facility] ([facility])[address] [place] [address] Basic metabolic 1998 panelon 05-26-2025 Anion gap [Moles/Vol] 8 mmol/L 3 - 13 mmol/L [facility] Calcium [Mass/Vol] 8 mg/dL Low 8.4 - 10. 2 mg/dL [facility] Chloride [Moles/Vol] 106 mmol/L 98 - 10 7 mmol/L [facility] CO2 [Moles/Vol] 22 mmol/L 22 - 29 mmol/L [facility] Creatinine [Mass/Vol] 0.67 mg/dL 0.57 - 1.11 mg/dL [facility] GFR/1.73 sq M.predicted (S/P/Bld) [Vol rate/Area] - PINF [facility] Comment on above: Calculation based on the Chronic Kidney Disease Epidemiology Collaboration (CKD-EPI) equation refit without adjustment for race Glucose [Mass/Vol] 83 mg/dL 74 - 100 mg/dL [facility] Interpretation and review of laboratory results Abnormal [facility] Potassium [Moles/Vol] 5.1 mmol/L 3.5 - 5.1 mmol/L [facility] Comment on above: TC Potential interference from hemolysis Sodium [Moles/Vol] 136 mmol/L 136 - 145 mmol/L [facility] Urea nitrogen [Mass/Vol] 7 mg/dL Low 8 - 21 mg/dL [facility] CBC W Auto Differential pane l (Bld)on 05-26-2025 Basophils (Bld) [#/Vol] 0.1 10*3/uL 0.0 - 0.2 10*3/uL [facility] Basophils/100 WBC (Bld) 0.6 % 0.0 - 2.0 % [facility] Eosinophils (Bld) [#/Vol] 0.1 10*3/uL 0.0 - 0.5 10*3/uL [facility] Eosinophils/100 WBC (Bld) 1.1 % 0.0 - 6.0 % [facility] Erythrocyte distribution width (RBC) [Ratio] 13.4 % 11.5 - 15.0 % [facility] Hematocrit (Bld) [Volume fraction] 37.9 % 35.0 - 47.0 % [facility] Hemoglobin (Bld) [Mass/Vol] 12.2 g/dL 11.7 - 16.0 g/dL [facility] Immature granulocytes (Bld) [#/Vol] 0 10*3/uL NINF - 0.1 10*3/uL [facility] Immature granulocytes/100 WBC (Bld) 0.4 % 0.0 - 2.0 % [facility] Interpretation and review of laboratory results Normal [facility] Lymphocytes (Bld) [#/Vol] 2 10*3/uL 1.0 - 4.3 10*3/uL [facility] Lymphocytes/100 WBC (Bld) 24.1 % 15.0 - 45.0 % [facility] MCH (RBC) [Entitic mass] 30.7 pg 26. 0 - 34.0 pg [facility] MCHC (RBC) [Mass/Vol] 32.2 % 30.5 - 36.0 % [facility] MCV (RBC) [Entitic vol] 95.2 fL 77.0 - 99.0 fL [facility] Monocytes (Bld) [#/Vol] 0.7 10*3/uL 0.0 - 0.9 10*3/uL [facility] Monocytes/100 WBC (Bld) 8.2 % 5.0 - 13.0 % [facility] Neutrophils (Bld) [#/Vol] 5.4 10*3/uL 1.8 - 7.5 10*3/uL [facility] Neutrophils/100 WBC (Bld) 65.6 % 38.0 - 82.0 % [facility] Nucleated RBC/100 WBC (Bld) [Ratio] 0 % [facility] Platelet mean volume (Bld) [Entitic vol] 10 fL 9.0 - 12.7 fL [facility] Comment on above: MPV is a calculated measurement using platelet volume ratio Platelets (Bld) [#/Vol] 202 10*3/uL 140 - 440 10*3/uL [facility] RBC (Bld) [#/Vol] 3.98 10*6/uL 3.80 - 5.2 0 10*6/uL [facility] WBC (Bld) [#/Vol] 8.2 10*3/uL 3.6 - 10.7 10*3/uL [facility] CBC WITH AUTO DIFFERENTIALon 05-26-2025 Basophils (Bld) [#/Vol] 0.1 10*3/uL Normal 0.0-0.2 [facility] Comment on above: Performed By: #### L [id number] ####Rn Eligibility: BELLA COLLINS ([phone])[facility] S[place] ([facility])[address] [place] [address] Basophils/100 WBC (Bld) 0.6 % Normal 0.0-2.0 [facility] Comment on above: Performed By: #### L [id number] ####Rn Eligibility: BELLA COLLINS ([phone])[facility] SajanS ([facility])[address] [place] [address] Eosinophils (Bld) [#/Vol] 0.1 10*3/uL Normal 0.0-0.5 [facility] Comment on above: Performed By: #### L [id number] ####Rn Eligibility: BELLA COLLINS ([phone])[facility] ([facility])[address] Eosinophils/100 WBC (Bld) 1.1 % Normal 0.0-6.0 [facility] Comment on above: Performed By: #### L [id number] ####Rn Eligibility: BELLA COLLINS ([phone])[facility] ([facility])[address] Erythrocyte distribution width (RBC) [Ratio] 13.4 % Normal 11.5-15.0 [facility] Comment on above: Performed By: #### L [id number] ####Rn Eligibility: BELLA COLLINS ([phone])[facility] [place] ([facility])[address] Hematocrit (Bld) [Volume fraction] 37.9 % Normal 35.0-47.0 [facility] Comment on above: Performed By: #### L [id number] ####Rn Eligibility: BELLA COLLINS ([phone])[facility] [place] ([facility])[address] Hemoglobin (Bld) [Mass/Vol] 12.2 g/dL Normal 11.7-16.0 [facility] Comment on above: Performed By: #### L [id number] ####Rn Eligibility: BELLA COLLINS ([id number])[facility] ([facility])[address] IMMATURE GRANS % 0.4 % Normal 0.0-2.0 [facility] Comment on above: Performed By: #### L [id number] ####Rn Eligibility: BELLA COLLINS ([phone])[facility] ([facility])[address] IMMATURE GRANS ABSOLUTE 0.0 10*3/uL Normal <0.1 [facility] Comment on above: Performed By: #### L [id number] ####Rn Eligibility: BELLA COLLINS ([phone])[facility]A Spar[employer] SystemsITAGE [place] ([facility])[address] Lymphocytes (Bld) [#/Vol] 2.0 10*3/uL Normal 1.0-4.3 [facility] Comment on above: Performed By: #### L [id number] ####Rn Eligibility: BELLA COLLINS ([phone])[facility] [place] ([facility])[address] Lymphocytes/100 WBC (Bld) 24.1 % Normal 15.0-45.0 [facility] Comment on above: Performed By: #### L [id number] ####Rn Eligibility: BELLA COLLINS ([phone])[facility]A [employer] SystemsITAGE [place] ([facility])[address] MCH (RBC) [Entitic mass] 30.7 pg Normal 26.0-34.0 [facility] Comment on above: Performed By: #### L [id number] ####Rn Eligibility: BELLA COLLINS ([phone])[facility]A [employer] SystemsITAGE [place] ([facility])[address] MCHC 32.2 % Normal 30.5-36.0 [facility] Comment on above: Performed By: #### L [id number] ####Rn Eligibility: BELLA COLLINS ([phone])[facility] [employer] SystemsITAGE [place] ([facility])[address] MCV (RBC) [Entitic vol] 95.2 fL Normal 77.0-99.0 [facility] Comment on above: Performed By: #### L [id number] ####Rn Eligibility: BELLA COLLINS ([phone])[facility] [employer] SystemsITAGE [place] ([facility])[address] [place] [address] [place] Monocytes (Bld) [#/Vol] 0.7 10*3/uL Normal 0.0-0.9 [facility] Comment on above: Performed By: #### L [id number] ####Rn Eligibility: BELLA COLLINS ([phone])[facility] [place] ([facility])[address] [place] [address] [place] Monocytes/100 WBC (Bld) 8.2 % Normal 5.0-13.0 [facility] Comment on above: Performed By: #### L [id number] ####Rn Eligibility: BELLA COLLINS ([phone])[facility] [place] ([facility])[address] [place] [address] [place] NEUTROPHILS ABSOLUTE 5.4 10*3/uL Normal 1.8-7.5 [facility] Comment on above: Performed By: #### L [id number] ####Rn Eligibility: BELLA COLLINS ([phone])[facility]A [employer] SystemsITAGE [place] ([facility])[address] [place] [address] [place] Neutrophils/100 WBC (Bld) 65.6 % Normal 38.0-82.0 [facility] Comment on above: Performed By: #### L [id number] ####Rn Eligibility: BELLA COLLINS ([phone])[facility]A [employer] SystemsITAGE [place] ([facility])[address] [place] [address] [place] NRBC 0.0 /100 WBCs Normal 0.0-2.0 [facility] Comment on above: Performed By: #### L [id number] ####Rn Eligibility: BELLA COLLINS ([phone])[facility]A [employer] SystemsITAGE [place] ([facility])[address] [place] [address] [facility] Platelet mean volume (Bld) [Entitic vol] 10.0 fL Normal 9.0-12.7 [facility] Comment on above: Result Comment: MPV is a calculated measurement using platelet volume ratio Performed By: #### L [id number] ####Rn Eligibility: BELLA KARINA ([phone])[facility] ([facility])[address] Platelets (Bld) [#/Vol] 202 10*3/uL Normal 140-440 [facility] Comment on above: Performed By: #### L [id number] ####Rn Eligibility: BELLA JEFFERSKERRIE ([phone])[facility] [place] ([facility])[address] RBC (Bld) [#/Vol] 3.98 10*6/uL Normal 3.80-5.20 [facility] Comment on above: Performed By: #### L [id number] ####Rn Eligibility: BELLA KARINA ([phone])[facility] ([facility])[address] [place] [address] WBC (Bld) [#/Vol] 8.2 10*3/uL Normal 3.6-10.7 [facility] Comment on above: Performed By: #### L [id number] ####Rn Eligibility: BELLA KARINA ([phone])[facility] ([facility])[address] [place] [address] [place] ABDOMEN PELVIS W CONTRAST on 05-26-2025 CT ABDOMEN PELVIS W CONTRAST Normal [facility] CT Abdomen and Pelvis W cont rast [place]alo 05-26-2025 No acute findings are seen on this examination to explain the patient's pain. Report Dictated on Electronically Signed By: Alfredito Gay MD Electronically Signed Date/Time: 05/26/2025 1:27 PM [facility] Patient Name: LEXIS NGUYEN : 1985 Exam Date/Time: 05/26/2025 13:00 Procedure: CT ABDOMEN PELVIS W CONTRAST Ordering Provider: TREVINO JOHN Reason For Exam: Postsurgical pain CT ABDOMEN AND PELVIS WITH CONTRAST CLINICAL INDICATION: Postsurgical abdominal pain Axial CT images of the abdomen and pelvis were acquired after the administration of intravenous contrast. 75 ml of Isovue-370 contrast was given intravenously. Oral contrast was not given for this examination. Dose reduction was employed with automated exposure control. COMPARISON: 05/20/2025 FINDINGS: The gallbladder has been removed. The liver, spleen, pancreas, adrenal glands and kidneys appear within normal limits. The abdominal aorta is normal in caliber. There is no retroperitoneal, pelvic, or inguinal lymphadenopathy. The urinary bladder appears grossly normal. The uterus has been removed. 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 No abnormal bowel thickening or dilatation is seen. There is no free air or free fluid within the abdomen or pelvis. The visualized portion of the lung bases appear clear. No lytic or blastic lesions are seen on the bone windows. [facility] Alfredito Gay MD - 05/26/2025 Patient Name: LEXIS NGUYEN : 1985 [id number] Exam Date/Time: 05/26/2025 13:00 Procedure: CT ABDOMEN PELVIS W CONTRAST Ordering Provider: TREVINO JOHN Reason For Exam: Postsurgical pain CT ABDOMEN AND PELVIS WITH CONTRAST CLINICAL INDICATION: Postsurgical abdominal pain Axial CT images of the abdomen and pelvis were acquired after the administration of intravenous contrast. 75 ml of Isovue-370 contrast was given intravenously. Oral contrast was not given for this examination. Dose reduction was employed with automated exposure control. COMPARISON: 05/20/2025 FINDINGS: The gallbladder has been removed. The liver, spleen, pancreas, adrenal glands and kidneys appear within normal limits. The abdominal aorta is normal in caliber. There is no retroperitoneal, pelvic, or inguinal lymphadenopathy. The urinary bladder appears grossly normal. The uterus has been removed. 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 No abnormal bowel thickening or dilatation is seen. There is no free air or free fluid within the abdomen or pelvis. The visualized portion of the lung bases appear clear. No lytic or blastic lesions are seen on the bone windows. IMPRESSION: No acute findings are seen on this examination to explain the patient's pain. Report Dictated on Electronically Signed By: Alfredito Gay MD Electronically Signed Date/Time: 05/26/2025 1:27 PM EDT [facility] Radiology Study observation (narrative) Jose fernandes CT Abdomen and Pelvis W cont rast IVOrdered By: Alfredito Gay on 05-26-2025 [facility] ED Nursing Noteon 05-26-2025 ED Nursing Note [facility] ED Provider Noteon ED Provider Note Normal [facility] HEPATIC FUNCTION PANELon Albumin [Mass/Vol] 3.3 g/dL Low 3.5-5.0 [facility] Comment on above: Performed By: #### L AB20, LAB15, LAB99 ####Rn Eligibility: BELLA COLLINS ([phone])[facility] ([facility])[address] [place] [address] [place] ALP [Catalytic activity/Vol] 84 U/L Normal 40-150 [facility] Comment on above: Performed By: #### L AB20, LAB15, LAB99 ####Rn Eligibility: BELLA COLLINS ([phone])[facility] ([facility])[address] [place] [address] [place] ALT [Catalytic activity/Vol] 19 U/L Normal <30 [facility] Comment on above: Performed By: #### L AB20, LAB15, LAB99 ####Rn Eligibility: BELLA COLILNS ([phone])[facility] ([facility])[address] [place], [place] [address] [place] AST [Catalytic activity/Vol] 29 U/L Normal <34 [facility] Comment on above: Result Comment: TCPo tential interference from hemolysis Performed By: #### L AB20, LAB15, LAB99 ####Rn Eligibility: BELLA COLLINS ([phone])[facility] ([facility])[address] [place] [address] [place] Bilirubin [Mass/Vol] 0.4 mg/dL Normal <1.2 [facility] Comment on above: Performed By: #### L AB20, LAB15, LAB99 ####Rn Eligibility: BELLA COLLINS ([phone])[facility] ([facility])[address] [place] [address] Bilirubin.indirect [Mass/Vol] 0.1 mg/dL Normal <0.5 [facility] Comment on above: Performed By: #### L AB20, LAB15, LAB99 ####Rn Eligibility: BELLA COLLINS ([phone])[facility] ([facility])[address] [place] [address] Protein [Mass/Vol] 6.3 g/dL Low 6.4-8.3 [facility] Comment on above: Result Comment: Seru m protein values are higher than plasma values. Samples from recumbent persons are lower by up to 0.5 g/dL as compared to ambulatory persons. After 60 years values are lower by up to 0.2 g/dL. Performed By: #### L AB20, LAB15, LAB99 ####Rn Eligibility: BELLA COLLINS ([phone])[facility] ([facility])[address] [place] [address] Hepatic function 2000 panelO rdered By: Eduarda Mullen on 05-26-2025 Albumin [Mass/Vol] 3.3 g/dL Low 3.5 - 5.0 g/dL [facility] ALP [Catalytic activity/Vol] 84 U/L 40 - 150 U/L [facility] ALT [Catalytic activity/Vol] 19 U[facility]L [facility] AST [Catalytic activity/Vol] 29 U/L [facility] - 34 U/L [facility] Comment on above: TC Potential interference from hemolysis Bilirubin [Mass/Vol] 0.4 mg/dL NINF - 1.2 mg/dL [facility] Bilirubin.conjugated [Mass/Vol] 0.1 mg/dL NINF - 0.5 mg/dL [facility] Interpretation and review of laboratory results Abnormal [facility] Protein [Mass/Vol] 6.3 g/dL Low 6.4 - 8.3 g/dL [facility] Comment on above: Serum protein values are higher than plasma values. Samples from recumbent persons are lower by up to 0.5 g/dL as compared to ambulatory persons. After 60 years values are lower by up to 0.2 g/dL. [facility] LACTIC ACID WITH REFLEXon Lactate [Moles/Vol] 0.8 mmol/L Normal 0.5-2.2 [facility] Comment on above: Performed By: #### L [id number] ####Rn Eligibility: BELLA COLLINS ([phone])[facility] ([facility])[address] [place] [address] LIPASEon 05-26-2025 Lipase [Catalytic activity/Vol] 31 U/L Normal <55 [facility] Comment on above: Performed By: #### L AB20, LAB15, LAB99 ####Rn Eligibility: BELLA COLLINS ([phone])[facility] ([facility])[address] [place] [address] Laboratory - Chemistry and C hemistry - challengeon 05-26-2025 Lipase [Catalytic activity/Vol] 31 U/L NINF - 55 U/L [facility] Lactate [Moles/Vol] 0.8 mmol/L 0.5 - 2. 2 mmol/L [facility] Lipase [Catalytic activity/V ol]on 05-26-2025 Interpretation and review of laboratory results Normal [facility] No Panel Informationon 05-26 [facility] Interpretation and review of laboratory results Normal [facility] 30on 05-22-2025 30 Normal [facility] 36on 05-22-2025 36 PATIENT CALLED IN TO SCHEDULE HER POST OP APPT. APPT HAS BEEN MADE WITH VEENA 06/06/25. PATIENT NOTIFIED VIA PHONE Normal [facility] Progress Noteon 05-22-2025 Progress Note Normal [facility] [id number] 05-21-2025 [id number] Normal [facility] 36on 05-21-2025 36 Noted, thanks. Normal [facility] 36 MANDI AND NOTES HAVE BEEN UPDATED [facility] 36 TFU RY AGD Lat OV LB 02/09/25 Next OV- none Presented to ED 05/20/25 with abd pain, CT showed possible ileus. Dr. Soto took her to surgery for diag lap and lysis of adhesions on 05/20/25, remains inpatient. Normal [facility] BASIC METABOLIC PANELon 04-24 Anion gap [Moles/Vol] 6 mmol/L Normal 3-13 [facility] Comment on above: Performed By: #### L AB15 ####Rn Eligibility: AMANDA SNYDER ([phone])[facility])[address] [place] [address] Calcium [Mass/Vol] 7.8 mg/dL Low 8.4-10.2 [facility] Comment on above: Performed By: #### L AB15 ####Rn Eligibility: AMANDA SNYDER ([phone])[facility] ([facility])[address] [place] [address] Chloride [Moles/Vol] 105 mmol/L Normal 98-107 [facility] Comment on above: Performed By: #### L AB15 ####Rn Eligibility: AMANDA SNYDER ([phone])[facility] ([facility])[address] [place] [address] [place] CO2 [Moles/Vol] 26 mmol/L Normal 22-29 [facility] Comment on above: Performed By: #### L AB15 ####Rn Eligibility: AMANDA [phone])[facility])[address] [place] [address] Creatinine [Mass/Vol] 0.68 mg/dL Normal 0.57-1.11 [facility] Comment on above: Performed By: #### L AB15 ####Rn Eligibility: AMANDA [phone])[facility])[address] [place] [address] GLOMERULAR FILTRATION RATE ML/MIN/1.73 SQ M.PREDICTED >90.0 Normal >60.0 [facility] Comment on above: Result Comment: Calc ulation based on the Chronic Kidney Disease Epidemiology Collaboration (CKD-EPI) equation refit without adjustment for race Performed By: #### L AB15 ####Rn Eligibility: AMANDA SNYDER ([phone])[facility])[address] [place] [address] Glucose [Mass/Vol] 102 mg/dL High 74-100 [facility] Comment on above: Performed By: #### L [id number] ####Rn Eligibility: AMANDA SNYDER ([phone])[facility])[address] [place] [address] Potassium [Moles/Vol] 3.7 mmol/L Normal 3.5-5.1 [facility] Comment on above: Result Comment: [facility] potassium values may be up to 0.5 mmol/L lower than serum values. Performed By: #### L [id number] ####Rn Eligibility: AMANDA SNYDER ([phone])[facility])[address] [place] [address] Sodium [Moles/Vol] 137 mmol/L Normal 136-145 [facility] Comment on above: Performed By: #### L [id number] ####Rn Eligibility: AMANDA SNYDER ([id number])[facility])[address] [place] [address] Urea nitrogen [Mass/Vol] 7 mg/dL Low 8-21 [facility] Comment on above: Performed By: #### L [id number] ####Rn Eligibility: AMANDA SNYDER ([phone])[address] Basic metabolic 1998 panelon 05-21-2025 Anion gap [Moles/Vol] 6 mmol/L 3 - 13 mmol/L [facility] Calcium [Mass/Vol] 7.8 mg/dL Low 8.4 - 10. 2 mg/dL [facility] Chloride [Moles/Vol] 105 mmol/L 98 - 10 7 mmol/L [facility] CO2 [Moles/Vol] 26 mmol/L 22 - 29 mmol/L [facility] Creatinine [Mass/Vol] 0.68 mg/dL 0.57 - 1.11 mg/dL [facility] GFR/1.73 sq M.predicted (S/P/Bld) [Vol rate/Area] - PINF [facility] Comment on above: Calculation based on the Chronic Kidney Disease Epidemiology Collaboration (CKD-EPI) equation refit without adjustment for race Glucose [Mass/Vol] 102 mg/dL High 74 - 100 mg/dL [facility] Interpretation and review of laboratory results Abnormal [facility] Potassium [Moles/Vol] 3.7 mmol/L 3.5 - 5.1 mmol/L [facility] Comment on above: Plasma potassium cami ues may be up to 0.5 mmol/L lower than serum values. Sodium [Moles/Vol] 137 mmol/L 136 - 145 mmol/L [facility] Urea nitrogen [Mass/Vol] 7 mg/dL Low 8 - 21 mg/dL [facility] CBC (HEMOGRAM)on 05-21-2025 Erythrocyte distribution width (RBC) [Ratio] 13.2 % Normal 11.5-15.0 [facility] Comment on above: Performed By: #### L [id number] ####Rn Eligibility: AMANDA SNYDER ([id number])[address] Hematocrit (Bld) [Volume fraction] 37.3 % Normal 35.0-47.0 [facility] Comment on above: Performed By: #### L [id number] ####Rn Eligibility: AMANDA SNYDER ([phone])[facility])[address] [place] [address] Hemoglobin (Bld) [Mass/Vol] 12.0 g/dL Normal 11.7-16.0 [facility] Comment on above: Performed By: #### L [id number] ####Rn Eligibility: AMANDA SNYDER ([phone])[facility])[address] [place] [address] MCH (RBC) [Entitic mass] 30.4 pg Normal 26.0-34.0 [facility] Comment on above: Performed By: #### L [id number] ####Rn Eligibility: AMANDA SNYDER ([phone])[facility])[address] [place] [address] MCHC 32.2 % Normal 30.5-36.0 [facility] Comment on above: Performed By: #### L [id number] ####Rn Eligibility: AMANDA SNYDER ([id number])[facility] ([facility])[address] [place] [address] MCV (RBC) [Entitic vol] 94.4 fL Normal 77.0-99.0 [facility] Comment on above: Performed By: #### L [id number] ####Rn Eligibility: AMANDA SNYDER ([id number])[facility])[address] [place] [address] Platelet mean volume (Bld) [Entitic vol] 10.9 fL Normal 9.0-12.7 [facility] Comment on above: Performed By: #### L [id number] ####Rn Eligibility: AMANDA SNYDER ([phone])[facility])[address] [place] [address] Platelets (Bld) [#/Vol] 213 10*3/uL Normal 140-440 [facility] Comment on above: Performed By: #### L [id number] ####Rn Eligibility: AMANDA SNYDER ([id number])[facility])[address] [place] [address] RBC (Bld) [#/Vol] 3.95 10*6/uL Normal 3.80-5.20 [facility] Comment on above: Performed By: #### L [id number] ####Rn Eligibility: AMANDA SNYDER ([phone])[facility])[address] [place] [address] WBC (Bld) [#/Vol] 13.9 10*3/uL High 3.6-10.7 [facility] Comment on above: Performed By: #### L [id number] ####Rn Eligibility: AMANDA SNYDER ([phone])[facility] ([address] CBC panel Auto (Bld)on 05-21 Erythrocyte distribution width (RBC) [Ratio] 13.2 % 11.5 - 15.0 % [facility] Hematocrit (Bld) [Volume fraction] 37.3 % 35.0 - 47.0 % [facility] Hemoglobin (Bld) [Mass/Vol] 12 g/dL 11.7 - 16.0 g/dL [facility] Interpretation and review of laboratory results Abnormal [facility] MCH (RBC) [Entitic mass] 30.4 pg 26. 0 - 34.0 pg [facility] MCHC (RBC) [Mass/Vol] 32.2 % 30.5 - 36.0 % [facility] MCV (RBC) [Entitic vol] 94.4 fL 77.0 - 99.0 fL [facility] Platelet mean volume (Bld) [Entitic vol] 10.9 fL 9.0 - 12.7 fL [facility] Platelets (Bld) [#/Vol] 213 10*3/uL 140 - 440 10*3/uL [facility] RBC (Bld) [#/Vol] 3.95 10*6/uL 3.80 - 5.2 0 10*6/uL [facility] WBC (Bld) [#/Vol] 13.9 10*3/uL High 3.6 - 10.7 10*3/uL [facility] Progress Noteon 05-21-2025 Progress Note Normal [facility] Progress Note Normal [facility] [id number] 05-20-2025 [id number] Normal [facility] Anesthesia Noteon 05-20-2025 Anesthesia Note [facility] Anesthesia Note Normal [facility] CBC W Auto Differential pane l (Bld)on 05-20-2025 Basophils (Bld) [#/Vol] 0.1 10*3/uL 0.0 - 0.2 10*3/uL [facility] Basophils/100 WBC (Bld) 0.5 % 0.0 - 2.0 % [facility] Eosinophils (Bld) [#/Vol] 0.1 10*3/uL 0.0 - 0.5 10*3/uL [facility] Eosinophils/100 WBC (Bld) 1 % 0.0 - 6.0 % [facility] Erythrocyte distribution width (RBC) [Ratio] 13.2 % 11.5 - 15.0 % [facility] Hematocrit (Bld) [Volume fraction] 41 % 35.0 - 47.0 % [facility] Hemoglobin (Bld) [Mass/Vol] 13.6 g/dL 11.7 - 16.0 g/dL [facility] Immature granulocytes (Bld) [#/Vol] 0 10*3/uL NINF - 0.1 10*3/uL [facility] Immature granulocytes/100 WBC (Bld) 0.4 % 0.0 - 2.0 % [facility] Interpretation and review of laboratory results Abnormal [facility] Lymphocytes (Bld) [#/Vol] 2.8 10*3/uL 1.0 - 4.3 10*3/uL [facility] Lymphocytes/100 WBC (Bld) 24.6 % 15.0 - 45.0 % [facility] MCH (RBC) [Entitic mass] 30.8 pg 26. 0 - 34.0 pg [facility] MCHC (RBC) [Mass/Vol] 33.2 % 30.5 - 36.0 % [facility] MCV (RBC) [Entitic vol] 92.8 fL 77.0 - 99.0 fL [facility] Monocytes (Bld) [#/Vol] 0.8 10*3/uL 0.0 - 0.9 10*3/uL [facility] Monocytes/100 WBC (Bld) 7.1 % 5.0 - 13.0 % [facility] Neutrophils (Bld) [#/Vol] 7.5 10*3/uL 1.8 - 7.5 10*3/uL [facility] Neutrophils/100 WBC (Bld) 66.4 % 38.0 - 82.0 % [facility] Nucleated RBC/100 WBC (Bld) [Ratio] 0 % [facility] Platelet mean volume (Bld) [Entitic vol] 9.7 fL 9.0 - 12.7 fL [facility] Comment on above: MPV is a calculated measurement using platelet volume ratio Platelets (Bld) [#/Vol] 270 10*3/uL 140 - 440 10*3/uL [facility] RBC (Bld) [#/Vol] 4.42 10*6/uL 3.80 - 5.2 0 10*6/uL [facility] WBC (Bld) [#/Vol] 11.3 10*3/uL High 3.6 - 10.7 10*3/uL [facility] CBC WITH AUTO DIFFERENTIALon 05-20-2025 Basophils (Bld) [#/Vol] 0.1 10*3/uL Normal 0.0-0.2 [facility] Comment on above: Performed By: #### L [id number] ####Rn Eligibility: BELLA COLLINS ([id number])[facility] Sparq SystemsFORMERLY PARK RIDGE HEALTHLeiyoo [place] ([facility])[address] [place] [address] [place] Basophils/100 WBC (Bld) 0.5 % Normal 0.0-2.0 [facility] Comment on above: Performed By: #### L [id number] ####Rn Eligibility: BELLA COLLINS ([id number])[facility] Sparq SystemsITAGE [place] ([facility])[address] [place] [address] [place] Eosinophils (Bld) [#/Vol] 0.1 10*3/uL Normal 0.0-0.5 [facility] Comment on above: Performed By: #### L [id number] ####Rn Eligibility: BELLA COLLINS ([phone])[facility] Sparq SystemsITAGE [place] ([facility])[address] [place] [address] [place] Eosinophils/100 WBC (Bld) 1.0 % Normal 0.0-6.0 [facility] Comment on above: Performed By: #### L [id number] ####Rn Eligibility: BELLA COLLINS ([id number])[facility] ([facility])[address] [place] [address] Erythrocyte distribution width (RBC) [Ratio] 13.2 % Normal 11.5-15.0 [facility] Comment on above: Performed By: #### L [id number] ####Rn Eligibility: BELLA COLLINS ([id number])[facility]ENTER[facility] [place] ([facility])[address] Hematocrit (Bld) [Volume fraction] 41.0 % Normal 35.0-47.0 [facility] Comment on above: Performed By: #### L [id number] ####Rn Eligibility: BELLA COLLINS ([id number])[facility]A [facility]ENTERITAGE [facility] ([facility])[address] Hemoglobin (Bld) [Mass/Vol] 13.6 g/dL Normal 11.7-16.0 [facility] Comment on above: Performed By: #### L [id number] ####Rn Eligibility: BELLA COLLINS ([phone])[facility]A [facility]ENTERITAGE [place] ([facility])[address] IMMATURE GRANS % 0.4 % Normal 0.0-2.0 [facility] Comment on above: Performed By: #### L [id number] ####Rn Eligibility: BELLA COLLINS ([phone])[facility]A Sparq SystemsITAGE [place] ([facility])[address] IMMATURE GRANS ABSOLUTE 0.0 10*3/uL Normal <0.1 [facility] Comment on above: Performed By: #### L [id number] ####Rn Eligibility: BELLA COLLINS ([id number])[facility]A Sparq SystemsITAGE [place] ([facility])[address] Lymphocytes (Bld) [#/Vol] 2.8 10*3/uL Normal 1.0-4.3 [facility] Comment on above: Performed By: #### L [id number] ####Rn Eligibility: BELLA COLLINS ([id number])[facility]A [facility]ENTERITAGE [facility] ([facility])[address] Lymphocytes/100 WBC (Bld) 24.6 % Normal 15.0-45.0 [facility] Comment on above: Performed By: #### L [id number] ####Rn Eligibility: BELLA COLLINS ([id number])[facility]A Sparq SystemsITAGE [place] ([facility])[address] MCH (RBC) [Entitic mass] 30.8 pg Normal 26.0-34.0 [facility] Comment on above: Performed By: #### L [id number] ####Rn Eligibility: BELLA COLLINS ([id number])[facility]A [facility]ENTERITAGE [facility] ([facility])[address] MCHC 33.2 % Normal 30.5-36.0 [facility] Comment on above: Performed By: #### L [id number] ####Rn Eligibility: BELLA COLLINS ([phone])[facility]A Sparq SystemsITAGE [place] ([facility])[address] MCV (RBC) [Entitic vol] 92.8 fL Normal 77.0-99.0 [facility] Comment on above: Performed By: #### L [id number] ####Rn Eligibility: BELLA COLLINS ([phone])[facility] Sparq SystemsITALeiyoo [place] ([facility])[address] Monocytes (Bld) [#/Vol] 0.8 10*3/uL Normal 0.0-0.9 [facility] Comment on above: Performed By: #### L [id number] ####Rn Eligibility: BELLA COLLINS ([id number])[facility]A Sparq SystemsITALeiyoo [place] ([facility])[address] Monocytes/100 WBC (Bld) 7.1 % Normal 5.0-13.0 [facility] Comment on above: Performed By: #### L [id number] ####Rn Eligibility: BELLA COLLINS ([phone])[facility]A InPulse MedicalGE [place] ([facility])[address] [place] [address] [place] NEUTROPHILS ABSOLUTE 7.5 10*3/uL Normal 1.8-7.5 [facility] Comment on above: Performed By: #### L [id number] ####Rn Eligibility: BELLA COLLINS ([phone])[facility]ENTERA [facility] ([facility])[address] [place] [address] [facility] Neutrophils/100 WBC (Bld) 66.4 % Normal 38.0-82.0 [facility] Comment on above: Performed By: #### L [id number] ####Rn Eligibility: BELLA COLLINS ([phone])[facility] VALLEY HOSPITALZonit Structured Solutions [place] ([facility])[address] [place] [address] [facility] NRBC 0.0 /100 WBCs Normal 0.0-2.0 [facility] Comment on above: Performed By: #### L [id number] ####Rn Eligibility: BELLA COLLINS ([id number])[facility] [employer]o [place] ([facility])[address] [place] [address] [facility] Platelet mean volume (Bld) [Entitic vol] 9.7 fL Normal 9.0-12.7 [facility] Comment on above: Result Comment: MPV is a calculated measurement using platelet volume ratio Performed By: #### L [id number] ####Rn Eligibility: BELLA COLLINS ([phone])[facility] [employer] [place] ([facility])[address] [place] [address] [place] Platelets (Bld) [#/Vol] 270 10*3/uL Normal 140-440 [facility] Comment on above: Performed By: #### L [id number] ####Rn Eligibility: BELLA COLLINS ([phone])[facility] HOSPITALLeiyoo [place] ([facility])[address] [place] [address] [place] RBC (Bld) [#/Vol] 4.42 10*6/uL Normal 3.80-5.20 [facility] Comment on above: Performed By: #### L [id number] ####Rn Eligibility: BELLA COLLINS ([phone])[facility]A Sparq SystemsFORMERLY [facility] RIDGE HEALTHGE [place] ([facility])[address] [place] [address] [facility] WBC (Bld) [#/Vol] 11.3 10*3/uL High 3.6-10.7 [facility] Comment on above: Performed By: #### L [id number] ####Rn Eligibility: BELLA COLLINS ([phone])[facility] [place] ([facility])[address] [place] [address] COMPLETE URINALYSIS WITH REF ENRIQUE TO CULTURE 05-20-2025 BILIRUBIN, TOTAL PRESENCE IN URINE Negative Normal Negative [facility] Comment on above: Performed By: #### L [id number] ####Rn Eligibility: BELLA COLLINS ([phone])[facility] Sparq SystemsFORMERLY [facility] RIDGE HEALTHGE [place] ([facility])[address] [place] [address] [facility] Clarity (U) Clear Normal Clear [facility] Comment on above: Performed By: #### L [id number] ####Rn Eligibility: BELLA COLLINS ([id number])[facility] HOSPITALLeiyoo [place] ([facility])[address] [place], [place] [id number] [facility] Color (U) Colorless Normal Lt. Yellow [facility] Comment on above: Performed By: #### L [id number] ####Rn Eligibility: BELLA COLLINS ([phone])[facility] Sparq SystemsFORMERLY PARK RIDGE HEALTHLeiyoo [place] ([facility])[address] [place] [address] [facility] GLUCOSE (MG/DL) IN URINE Normal Normal Nor mal (<70) [facility] Comment on above: Performed By: #### L [id number] ####Rn Eligibility: BELLA COLLINS ([phone])[facility] [place] ([facility])[address] [place] [address] [facility] HEMOGLOBIN PRESENCE IN URINE Negative Normal Negative [facility] Comment on above: Performed By: #### L [id number] ####Rn Eligibility: BELLA COLLINS ([phone])[facility]ITALGE [facility] ([facility])[address] [place] [address] [facility] Ketones Ql (U) Trace Abnormal Negative [facility] Comment on above: Performed By: #### L [id number] ####Rn Eligibility: BELLA COLLINS ([id number])[facility]ITALGE [place] ([facility])[address] LEUKOCYTE ESTERASE PRESENCE IN URINE BY TEST STRIP Negative Normal Negative [facility] Comment on above: Performed By: #### L [id number] ####Rn Eligibility: BELLA COLLINS ([id number])[facility]ITALGE [facility] ([facility])[address] NITRITE PRESENCE IN URINE Negative Normal Negative [facility] Comment on above: Performed By: #### L [id number] ####Rn Eligibility: BELLA COLLINS ([phone])[facility] [place] ([facility])[address] [place] [address] [facility] pH (U) 5.5 [pH] Normal 5.0-8.0 [facility] Comment on above: Performed By: #### L [id number] ####Rn Eligibility: BELLA COLLINS ([id number])[facility] [place] ([facility])[address] [place] [address] [facility] Protein (U) [Mass/Vol] Negative Normal Negative [facility] Comment on above: Performed By: #### L [id number] ####Rn Eligibility: BELLA COLLINS ([id number])[facility] [place] ([facility])[address] [place] [address] [place] Specific gravity (U) [Rel density] 1.005 Normal 1.005-1.030 [facility] Comment on above: Result Comment: ORDMaicol R COMMENTS:A specimen with <=10 WBC is not consistent with inflammation. This specimen will not reflex to a urine culture. Performed By: #### L [id number] ####Rn Eligibility: BELLA COLLINS ([phone])[facility] ([facility])[address] UROBILINOGEN (MG/DL) IN URINE Normal Normal Normal (0-1) [facility] Comment on above: Performed By: #### L [id number] ####Rn Eligibility: BELLA COLLINS ([phone])[facility] ([facility])[address] COMPREHENSIVE METABOLIC PANE Kj 05-20-2025 Albumin [Mass/Vol] 3.7 g/dL Normal 3.5-5.0 [facility] Comment on above: Performed By: #### Norbert AB17, LAB99, [id number] ####Rn Eligibility: BELLA COLLINS ([phone])[facility] ([facility])[address] ALP [Catalytic activity/Vol] 100 U/L Normal 40-150 [facility] Comment on above: Performed By: #### Norbert FERREIRA17, LAB99, [id number] ####Rn Eligibility: BELLA COLLINS ([id number])[facility] ([facility])[address] ALT [Catalytic activity/Vol] 21 U/L Normal <30 [facility] Comment on above: Performed By: #### Norbert AB17, LAB99, [id number] ####Rn Eligibility: BELLA COLLINS ([phone])[facility] ([facility])[address] Anion gap [Moles/Vol] 11 mmol/L Normal 3-13 [facility] Comment on above: Performed By: #### Norbert AB17, LAB99, [id number] ####Rn Eligibility: BELLA COLLINS ([id number])[facility] [place] ([facility])[address] [place] [address] [facility] AST [Catalytic activity/Vol] 20 U/L Normal <34 [facility] Comment on above: Performed By: #### Norbert SIMS, LAB99, [id number] ####Rn Eligibility: BELLA COLLINS ([id number])[facility] [place] ([facility])[address] [place] [address] [facility] Bilirubin [Mass/Vol] 0.3 mg/dL Normal <1.2 [facility] Comment on above: Performed By: #### Norbert SIMS, LAB99, [id number] ####Rn Eligibility: BELLA COLLINS ([id number])[facility] [place] ([facility])[address] Calcium [Mass/Vol] 8.7 mg/dL Normal 8.4-10.2 [facility] Comment on above: Performed By: #### Norbert SIMS, LAB99, [id number] ####Rn Eligibility: BELLA COLLINS ([phone])[facility] [place] ([facility])[address] [place] [address] [place] Chloride [Moles/Vol] 103 mmol/L Normal 98-107 [facility] Comment on above: Performed By: #### Norbert AB17, LAB99, [id number] ####Rn Eligibility: BELLA COLLINS ([phone])[facility] [place] ([facility])[address] [place] [address] [place] CO2 [Moles/Vol] 24 mmol/L Normal 22-29 [facility] Comment on above: Performed By: #### Norbert ABClarke, LAB99, [id number] ####Rn Eligibility: BELLA COLLINS ([id number])[facility] [place] [address] [place] Creatinine [Mass/Vol] 0.70 mg/dL Normal 0.57-1.11 [facility] Comment on above: Performed By: #### Norbert AB17, LAB99, [id number] ####Rn Eligibility: BELLA COLLINS ([id number])[facility] ([facility] [place] [address] [facility] GLOMERULAR FILTRATION RATE ML/MIN/1.73 SQ M.PREDICTED >90.0 Normal >60.0 [facility] Comment on above: Result Comment: Calc ulation based on the Chronic Kidney Disease Epidemiology Collaboration (CKD-EPI) equation refit without adjustment for race Performed By: #### Norbert FERREIRA17, LAB99, [id number] ####Rn Eligibility: BELLA COLLINS ([id number])[facility] ([facility])[address] [place] [id number] [facility] Glucose [Mass/Vol] 85 mg/dL Normal 74-100 [facility] Comment on above: Performed By: #### Norbert FERREIRA17, LAB99, [id number] ####Rn Eligibility: BELLA COLLINS ([id number])[facility] [place] [address] [place] Potassium [Moles/Vol] 3.9 mmol/L Normal 3.5-5.1 [facility] Comment on above: Result Comment: [facility] potassium values may be up to 0.5 mmol/L lower than serum values. Performed By: #### Norbert AB17, LAB99, [id number] ####Rn Eligibility: BELLA COLLINS ([id number])[facility] ([facility] [place] [address] [facility] Protein [Mass/Vol] 6.6 g/dL Normal 6.4-8.3 [facility] Comment on above: Performed By: #### L AB17, LAB99, [id number] ####Rn Eligibility: BELLA COLLINS ([phone])[facility] ([facility])[address] Sodium [Moles/Vol] 138 mmol/L Normal 136-145 [facility] Comment on above: Performed By: #### L AB17, LAB99, [id number] ####Rn Eligibility: BELLA COLLINS ([phone])[facility] ([facility])[address] Urea nitrogen [Mass/Vol] 8 mg/dL Normal 8-21 [facility] Comment on above: Performed By: #### L AB17, LAB99, [id number] ####Rn Eligibility: BELLA COLLINS ([phone])[facility] ([facility])[address] [place] [address] CT ABDOMEN PELVIS WO IV CONT RASTon 05-20-2025 CT ABDOMEN PELVIS WO IV CONTRAST Normal [facility] CT Abdomen and Pelvis WO con traston 05-20-2025 Mild gaseous distention of bowel loops with evidence of bariatric surgery. Ileus is most likely Report Dictated on Electronically Signed By: Abner Ritchie MD Electronically Signed Date/Time: 05/20/2025 6:55 PM [facility] Patient Name: LEXIS NGUYEN : 1985 [facility]#: [id number] Exam Date/Time: 05/20/2025 18:42 Procedure: CT ABDOMEN PELVIS WO IV CONTRAST Ordering Provider: AYALA KASSIDY Reason For Exam: epigastric abdominal pain CT ABDOMEN AND PELVIS WITHOUT CONTRAST CLINICAL INDICATION: epigastric abdominal pain. TECHNIQUE: Transaxial sequence through the abdomen and pelvis without contrast with 3 mm reconstruction. Sagittal coronal reconstruction images included. Dose reduction was employed with automated exposure control. COMPARISON: 02/12/2025 FINDINGS: Exam quality: Suboptimal for the evaluation of solid organs due to the lack of intravenous contrast and suboptimal for evaluation of the gastrointestinal tract due to lack of oral contrast. Chest base: Normal. Liver: Normal size and contour. No identifiable lesion. Biliary tree: Normal caliber. Spleen: Normal. Adrenals: Normal. Pancreas: Unremarkable. Kidneys: No contour abnormality or focal renal lesion. Renal collecting systems: No calculi, hydronephrosis or ureteral dilatation. Free fluid: None. Retroperitoneal/mesent joey lymphadenopathy: None. Aorta: Normal caliber. Bowel: Evidence of bariatric surgery. There are some scattered high attenuation foci within the right colon, likely ingested medication. There is some gas within mildly distended small and large bowel loops. There is no significant mesenteric stranding. Abdominal wall: Normal. Bladder: No calculi or filling defects. Pelvic organs/viscera: No mass identified. Pelvic lymphadenopathy: None. Osseous structures: Minor levoscoliosis the lumbar spine. [facility] Abner Ritchie MD - 05/20/2025 Patient Name: LEXIS NGUYEN : 1985 [facility]#: [id number] Exam Date/Time: 05/20/2025 18:42 Procedure: CT ABDOMEN PELVIS WO IV CONTRAST Ordering Provider: AYALA KASSIDY Reason For Exam: epigastric abdominal pain CT ABDOMEN AND PELVIS WITHOUT CONTRAST CLINICAL INDICATION: epigastric abdominal pain. TECHNIQUE: Transaxial sequence through the abdomen and pelvis without contrast with 3 mm reconstruction. Sagittal coronal reconstruction images included. Dose reduction was employed with automated exposure control. COMPARISON: 02/12/2025 FINDINGS: Exam quality: Suboptimal for the evaluation of solid organs due to the lack of intravenous contrast and suboptimal for evaluation of the gastrointestinal tract due to lack of oral contrast. Chest base: Normal. Liver: Normal size and contour. No identifiable lesion. Biliary tree: Normal caliber. Spleen: Normal. Adrenals: Normal. Pancreas: Unremarkable. Kidneys: No contour abnormality or focal renal lesion. Renal collecting systems: No calculi, hydronephrosis or ureteral dilatation. Free fluid: None. Retroperitoneal/mesent joey lymphadenopathy: None. Aorta: Normal caliber. Bowel: Evidence of bariatric surgery. There are some scattered high attenuation foci within the right colon, likely ingested medication. There is some gas within mildly distended small and large bowel loops. There is no significant mesenteric stranding. Abdominal wall: Normal. Bladder: No calculi or filling defects. Pelvic organs/viscera: No mass identified. Pelvic lymphadenopathy: None. Osseous structures: Minor levoscoliosis the lumbar spine. IMPRESSION: Mild gaseous distention of bowel loops with evidence of bariatric surgery. Ileus is most likely Report Dictated on Electronically Signed By: Abner Ritchie MD Electronically Signed Date/Time: 05/20/2025 6:55 PM EDT [facility] Radiology Study observation (narrative) [facility] alth CT Abdomen and Pelvis WO con trastOrdered By: Abner Ritchie on 05-20-2025 [facility] Work Phone: Comprehensive metabolic 1998 panelon 05-20-2025 Albumin [Mass/Vol] 3.7 g/dL 3.5 - 5.0 g/dL [facility] ALP [Catalytic activity/Vol] 100 U/L 40 - 150 U/L [facility] ALT [Catalytic activity/Vol] 21 U/L NINF - 30 U/L [facility] Anion gap [Moles/Vol] 11 mmol/L 3 - 13 mmol/L [facility] AST [Catalytic activity/Vol] 20 U/L NINF - 34 U/L [facility] Bilirubin [Mass/Vol] 0.3 mg/dL [facility] 1.[facility] mg/dL [facility] Calcium [Mass/Vol] 8.7 mg/dL 8.4 - 10. 2 mg/dL [facility] Chloride [Moles/Vol] 103 mmol/L 98 - 10 7 mmol/L [facility] CO2 [Moles/Vol] 24 mmol/L 22 - 29 mmol/L [facility] Creatinine [Mass/Vol] 0.7 mg/dL 0.57 - 1.11 mg/dL [facility] GFR/1.73 sq M.predicted (S/P/Bld) [Vol rate/Area] - PINF [facility] Comment on above: Calculation based on the Chronic Kidney Disease Epidemiology Collaboration (CKD-EPI) equation refit without adjustment for race Glucose [Mass/Vol] 85 mg/dL 74 - 100 mg/dL [facility] Interpretation and review of laboratory results Normal [facility] Potassium [Moles/Vol] 3.9 mmol/L 3.5 - 5.1 mmol/L [facility] Comment on above: Plasma potassium cami ues may be up to 0.5 mmol/L lower than serum values. Protein [Mass/Vol] 6.6 g/dL 6.4 - 8.3 g/dL [facility] Sodium [Moles/Vol] 138 mmol/L 136 - 145 mmol/L [facility] Urea nitrogen [Mass/Vol] 8 mg/dL 8 - 21 mg/dL [facility] ECG 12-LEADon 05-20-2025 ECG 12-LEAD IMPRESSION: SINUS RHYTHM Electronically Signed On 05-20-2025 22:04:27 EDT by Roge Lambert [facility] ED Nursing Noteon 05-20-2025 ED Nursing Note Pt to the OR with surgery resident at this time. Pt leaving ED in stable condition. Normal [facility] ED Nursing Note Patient given gown, hospital socks and belonging bag. Normal [facility] ED Nursing Note Patient c/o epigastr ic pain with pressure and tightness that started at 1400 Normal [facility] ED Provider Noteon ED Provider Note Normal [facility] HCG QUALITATIVE URINEon 04-23 Beta HCG ( test) Ql (U) Negative Normal Negative [facility] Comment on above: Result Comment: Plea se note: Very dilute urine specimens, as indicated by a low specific gravity, may not contain patient accounting representative levels of hCG. If is still suspected, a first morning urine specimen should be collected 48 hours later and tested.ORDER COMMENTS: is the most common reason for HCG in urine, although choriocarcinoma, hydatidiform mole, and certain nontrophoblastic malignancies also result in detectable urinary HCG levels. Sensitivity = 20mIU/mL. Performed By: #### L [id number] ####Rn Eligibility: BELLA COLLINS ([phone])[facility] ([facility])[address] [place] [address] HIGH SENSITIVITY TROPONIN, S ERIAL BASELINEon 05-20-2025 TROPONIN HS SERIAL BASELINE <3 Normal <=14 [facility] Comment on above: Result Comment: In i ndividuals presenting with symptoms > 2h, a baseline troponin <= 5 ng/L suggests acutecardiac injury is unlikely and further serial testing is generally not indicated. Performed By: #### L AB17, LAB99, [id number] ####Rn Eligibility: BELLA COLLINS ([phone])[facility] ([facility])[address] LACTIC ACID WITH REFLEXon Lactate [Moles/Vol] 0.7 mmol/L Normal 0.5-2.2 [facility] [employer] [facility] Comment on above: Performed By: #### L [id number] ####Rn Eligibility: BELLA COLLINS ([phone])[facility] ([facility])[address] LIPASEon 05-20-2025 Lipase [Catalytic activity/Vol] 59 U/L High <55 [facility] Comment on above: Performed By: #### L AB17, LAB99, [id number] ####Rn Eligibility: BELLA COLLINS ([phone])[facility] ([facility])[address] Laboratory - Chemistry and C hemistry - challengeon 05-20-2025 Lactate [Moles/Vol] 0.7 mmol/L 0.5 - 2. 2 mmol/L [facility] [employer] Lipase [Catalytic activity/Vol] 59 U/L High NINF - 55 U/L [facility] [employer] Beta HCG ( test) Ql Negative Negative [facility] [employer] Comment on above: Please note: Very di lute urine specimens, as indicated by a low specific gravity, may not contain patient accounting representative levels of hCG. If is still suspected, a first morning urine specimen should be collected 48 hours later and tested. Beta HCG ( test) Ql (U) is the most common reason for HCG in urine, although choriocarcinoma, hydatidiform mole, and certain nontrophoblastic malignancies also result in detectable urinary HCG levels. Sensitivity = 20mIU/mL. [facility] Lipase [Catalytic activity/V ol]on 05-20-2025 Interpretation and review of laboratory results Abnormal [facility] No Panel InformationOrdered By: Roge Lambert on 05-20-2025 P [place] 0 degrees [facility] Work Phone: OK Interval 122 ms [facility] Work Phone: QRS [place] 1 degrees [facility] [employer] Work Phone: QRSD Interval 86 ms [facility] [email or web address] Work Phone: QT Interval 364 ms [facility] [employer] Work Phone: QTC Interval 438 ms [facility] [employer] Work Phone: T Wave [place] 29 degrees [facility] [employer] Work Phone: [facility] [employer] Work Phone: No Panel Informationon 05-20 SINUS RHYTHM Electronically Signed On 05-20-2025 22:04:27 EDT by Roge Lambert CV Roge Puente MD - 05/20/2025 IMPRESSION: SINUS RHYTHM Electronically Signed On 05-20-2025 22:04:27 EDT by Roge Lambert [facility] Interpretation and review of laboratory results Normal [facility] Interpretation and review of laboratory results Normal [facility] Troponin HS Serial Baseline ng/L NINF - 14 ng/L [facility] Comment on above: In individuals prese nting with symptoms > 2h, a baseline troponin <= 5 ng/L suggests acute cardiac injury is unlikely and further serial testing is generally not indicated. [facility] Op Noteon 05-20-2025 Op Note Normal [facility] Progress Noteon 05-20-2025 Progress Note Normal [facility] Urinalysis complete panel (U )Ordered By: Alysia Stovall on 05-20-2025 Bilirubin Ql (U) Negative Negative mg/dL [facility] Clarity (U) Clear Clear [facility] Color (U) Colorless Lt. Yellow [facility] Glucose Ql (U) Normal Normal (<70) mg/dL [facility] Hemoglobin Ql (U) Negative Negative mg/dL [facility] Interpretation and review of laboratory results Abnormal [facility] Ketones (U) [Mass/Vol] Trace Abnormal Negat reina mg/dL [facility] Leukocyte esterase Test strip Ql (U) Negative Negative Ruby/uL [facility] Nitrite Ql (U) Negative Negative [facility] th pH (U) 5.5 [pH] 5.0 - 8.0 pH [facility] Protein (U) [Mass/Vol] Negative Negat reina mg/dL [facility] Specific gravity (U) [Rel density] 1.005 1.005 - 1.030 [facility] Urobilinogen (U) [Mass/Vol] Normal Normal (0-1) mg/dL [facility] A specimen with <=10 WBC is not consistent with inflammation. This specimen will not reflex to a urine culture. [facility] Vital signsOrdered By: Jude Lambert on 05-20-2025 Heart rate 87 /min bpm [facility] [employer] Work Phone: COMPLETE URINALYSIS WITH REF ENRIQUE TO CULTUREon 05-03-2025 BILIRUBIN, TOTAL PRESENCE IN URINE Negative Normal Negative [facility] Comment on above: Performed By: #### L [id number] ####Rn Eligibility: BELLA COLLINS ([phone])[facility] [employer] SystemsFORMERLY [facility] HEALTHLeiy[facility] [place] ([facility])[address] [place] [address] [facility] Clarity (U) Clear Normal Clear [facility] Comment on above: Performed By: #### L [id number] ####Rn Eligibility: BELLA COLLINS ([phone])[facility] [employer] SystemsFORMERLY [facility]ALTHLeiy[facility] ([facility])[address] [place] [address] [facility] Color (U) Colorless Normal Lt. Yellow [facility] Comment on above: Performed By: #### L [id number] ####Rn Eligibility: BELLA COLLINS ([phone])[facility] [employer] SystemsFORMERLY [facility]ALTHLe[facility] ([facility])[address] [place] [address] [place] GLUCOSE (MG/DL) IN URINE Normal Normal Nor mal (<70) [facility] Comment on above: Performed By: #### L [id number] ####Rn Eligibility: BELLA COLLINS ([phone])[facility] [employer] SystemsFORMERLY [facility]ALTHLe[facility] [place] ([facility])[address] [place] [address] [place] HEMOGLOBIN PRESENCE IN URINE Negative Normal Negative [facility] Comment on above: Performed By: #### L [id number] ####Rn Eligibility: BELLA COLLINS ([phone])[facility] [place] ([facility])[address] [place] [address] [facility] Ketones Ql (U) Negative Normal Negative [facility] Comment on above: Performed By: #### L [id number] ####Rn Eligibility: BELLA COLLINS ([phone])[facility] [place] ([facility])[address] LEUKOCYTE ESTERASE PRESENCE IN URINE BY TEST STRIP Negative Normal Negative [facility] Comment on above: Performed By: #### L [id number] ####Rn Eligibility: BELLA COLLINS ([phone])[facility] ([facility])[address] NITRITE PRESENCE IN URINE Negative Normal Negative [facility] Comment on above: Performed By: #### L [id number] ####Rn Eligibility: BELLA COLLINS ([phone])[facility] [place] ([facility])[address] [place] [address] pH (U) 7.5 [pH] Normal 5.0-8.0 [facility] Comment on above: Performed By: #### L [id number] ####Rn Eligibility: BELLA COLLINS ([phone])[facility] [place] ([facility])[address] Protein (U) [Mass/Vol] Negative Normal Negative [facility] Comment on above: Performed By: #### L [id number] ####Rn Eligibility: BELLA COLLINS ([phone])[facility] [place] ([facility])[address] [place] [address] [place] Specific gravity (U) [Rel density] 1.003 Low 1.005-1.030 [facility] Comment on above: Result Comment: YASIR R COMMENTS:A specimen with <=10 WBC is not consistent with inflammation. This specimen will not reflex to a urine culture. Performed By: #### L [id number] ####Rn Eligibility: BELLA COLLINS ([phone])[facility] ([facility])[address] [place] [address] [facility] UROBILINOGEN (MG/DL) IN URINE Normal Normal Normal (0-1) [facility] Comment on above: Performed By: #### L [id number] ####Rn Eligibility: BELLA COLLINS ([phone])[facility] ([facility])[address] [place] [address] [facility] ED Nursing Noteon 05-03-2025 ED Nursing Note Pt reports improved symptoms. Updated by Dr. Roy regarding plan to dc home. Normal [facility] ED Provider Noteon ED Provider Note Normal [facility] Urinalysis complete panel (U )Ordered By: Malena Maynard on 05-03-2025 Bilirubin Ql (U) Negative Negative mg/dL [facility] Clarity (U) Clear Clear [facility] Color (U) Colorless Lt. Yellow [facility] Glucose Ql (U) Normal Normal (<70) mg/dL [facility] Hemoglobin Ql (U) Negative Negative mg/dL [facility] Interpretation and review of laboratory results Abnormal [facility] Ketones (U) [Mass/Vol] Negative Negat reina mg/dL [facility] Leukocyte esterase Test strip Ql (U) Negative Negative Ruby/uL [facility] Nitrite Ql (U) Negative Negative [facility] th pH (U) 7.5 [pH] 5.0 - 8.0 pH [facility] Protein (U) [Mass/Vol] Negative Negat reina mg/dL [facility] Specific gravity (U) [Rel density] 1.003 Low 1.005 - 1.030 [facility] Urobilinogen (U) [Mass/Vol] Normal Normal (0-1) mg/dL [facility] A specimen with <=10 WBC is not consistent with inflammation. This specimen will not reflex to a urine culture. [facility] Progress Noteon 03-29-2025 Progress Note Normal [facility] CBC W Auto Differential pane l (Bld)on 03-28-2025 Basophils (Bld) [#/Vol] 0.1 10*3/uL 0.0 - 0.2 10*3/uL [facility] Basophils/100 WBC (Bld) 0.7 % 0.0 - 2.0 % [facility] Eosinophils (Bld) [#/Vol] 0.1 10*3/uL 0.0 - 0.5 10*3/uL [facility] Eosinophils/100 WBC (Bld) 0.8 % 0.0 - 6.0 % [facility] Erythrocyte distribution width (RBC) [Ratio] 13 % 11.5 - 15.0 % [facility] Hematocrit (Bld) [Volume fraction] 38.2 % 35.0 - 47.0 % [facility] Hemoglobin (Bld) [Mass/Vol] 12.7 g/dL 11.7 - 16.0 g/dL [facility] Immature granulocytes (Bld) [#/Vol] 0 10*3/uL NINF - 0.1 10*3/uL [facility] Immature granulocytes/100 WBC (Bld) 0.4 % 0.0 - 2.0 % [facility] Interpretation and review of laboratory results Normal [facility] Lymphocytes (Bld) [#/Vol] 2.3 10*3/uL 1.0 - 4.3 10*3/uL [facility] Lymphocytes/100 WBC (Bld) 27 % 15.0 - 45.0 % [facility] MCH (RBC) [Entitic mass] 31.1 pg 26. 0 - 34.0 pg [facility] MCHC (RBC) [Mass/Vol] 33.2 % 30.5 - 36.0 % [facility] MCV (RBC) [Entitic vol] 93.6 fL 77.0 - 99.0 fL [facility] Monocytes (Bld) [#/Vol] 0.6 10*3/uL 0.0 - 0.9 10*3/uL [facility] Monocytes/100 WBC (Bld) 6.9 % 5.0 - 13.0 % [facility] Neutrophils (Bld) [#/Vol] 5.5 10*3/uL 1.8 - 7.5 10*3/uL [facility] Neutrophils/100 WBC (Bld) 64.2 % 38.0 - 82.0 % [facility] Nucleated RBC/100 WBC (Bld) [Ratio] 0 % [facility] Platelet mean volume (Bld) [Entitic vol] 10.6 fL 9.0 - 12.7 fL [facility] Comment on above: MPV is a calculated measurement using platelet volume ratio Platelets (Bld) [#/Vol] 222 10*3/uL 140 - 440 10*3/uL [facility] RBC (Bld) [#/Vol] 4.08 10*6/uL 3.80 - 5.2 0 10*6/uL [facility] WBC (Bld) [#/Vol] 8.5 10*3/uL 3.6 - 10.7 10*3/uL [facility] CBC WITH AUTO DIFFERENTIALon 03-28-2025 Basophils (Bld) [#/Vol] 0.1 10*3/uL Normal 0.0-0.2 [facility] Comment on above: Performed By: #### L [id number] ####Rn Eligibility: BELLA COLLINS ([phone])[facility] [employer] [place] ([facility])[address] [place], [place] [address] [place] Basophils/100 WBC (Bld) 0.7 % Normal 0.0-2.0 S [facility] Comment on above: Performed By: #### L [id number] ####Rn Eligibility: BELLA COLLINS ([phone])[facility] [employer] [place] ([facility])[address] [place] [address] [place] Eosinophils (Bld) [#/Vol] 0.1 10*3/uL Normal 0.0-0.5 [facility] Comment on above: Performed By: #### L [id number] ####Rn Eligibility: BELLA COLLINS ([phone])[facility] [employer] [place] ([facility])[address] [place] [address] [place] Eosinophils/100 WBC (Bld) 0.8 % Normal 0.0-6.0 [facility] Comment on above: Performed By: #### L [id number] ####Rn Eligibility: BELLA COLLINS ([phone])[facility] [employer] [place] ([facility])[address] Erythrocyte distribution width (RBC) [Ratio] 13.0 % Normal 11.5-15.0 [facility] Comment on above: Performed By: #### L [id number] ####Rn Eligibility: BELLA COLLINS ([phone])[facility] [place] ([facility])[address] Hematocrit (Bld) [Volume fraction] 38.2 % Normal 35.0-47.0 [facility] Comment on above: Performed By: #### L [id number] ####Rn Eligibility: BELLA COLLINS ([phone])[facility]ITALTh[facility] OnS ([facility])[address] Hemoglobin (Bld) [Mass/Vol] 12.7 g/dL Normal 11.7-16.0 [facility] Comment on above: Performed By: #### L [id number] ####Rn Eligibility: BELLA COLLINS ([phone])[facility]OSPITALTh[facility] ([facility])[address] IMMATURE GRANS % 0.4 % Normal 0.0-2.0 [facility] Comment on above: Performed By: #### L [id number] ####Rn Eligibility: BELLA COLLINS ([phone])[facility] HOSPITALZonit Struct[employer] [place] ([facility])[address] IMMATURE GRANS ABSOLUTE 0.0 10*3/uL Normal <0.1 [facility] Comment on above: Performed By: #### L [id number] ####Rn Eligibility: BELLA COLLINS ([phone])[facility] HOSPITALZonit Struct[facility] [place] ([facility])[address] Lymphocytes (Bld) [#/Vol] 2.3 10*3/uL Normal 1.0-4.3 [facility] Comment on above: Performed By: #### L [id number] ####Rn Eligibility: BELLA GÓMEZROBER ([phone])[facility]ENTERA [employer] SystemsITAGE [place] ([facility])[address] Lymphocytes/100 WBC (Bld) 27.0 % Normal 15.0-45.0 [facility] Comment on above: Performed By: #### L [id number] ####Rn Eligibility: BELLA COLLINS ([id number])[facility] MCH (RBC) [Entitic mass] 31.1 pg Normal 26.0-34.0 [facility] Comment on above: Performed By: #### L [id number] ####Rn Eligibility: BELLA GÓMEZROBER ([id number])[facility] ([facility])[address] MCHC 33.2 % Normal 30.5-36.0 [facility] Comment on above: Performed By: #### L [id number] ####Rn Eligibility: BELLA COLLINS ([id number])[facility] [employer] SystemsITAGE CROSSINGS ([facility])[address] MCV (RBC) [Entitic vol] 93.6 fL Normal 77.0-99.0 S [facility] Comment on above: Performed By: #### L [id number] ####Rn Eligibility: BELLA COLLINS ([id number])[facility] Sparq SystemsITAGE CROSSINGS ([facility])[address] Monocytes (Bld) [#/Vol] 0.6 10*3/uL Normal 0.0-0.9 [facility] Comment on above: Performed By: #### L [id number] ####Rn Eligibility: BELLA COLLINS ([id number])[facility] ([facility])[address] [place] [address] [place] Monocytes/100 WBC (Bld) 6.9 % Normal 5.0-13.0 [facility] Comment on above: Performed By: #### L [id number] ####Rn Eligibility: BELLA COLLINS ([id number])[facility] ([facility])[address] [place] [address] [facility] NEUTROPHILS ABSOLUTE 5.5 10*3/uL Normal 1.8-7.5 [facility] Comment on above: Performed By: #### L [id number] ####Rn Eligibility: BELLA COLLINS ([id number])[facility] ([facility])[address] Neutrophils/100 WBC (Bld) 64.2 % Normal 38.0-82.0 [facility] Comment on above: Performed By: #### L [id number] ####Rn Eligibility: BELLA COLLINS ([id number])[facility] [employer] CROSSINGS ([facility])[address] NRBC 0.0 /100 WBCs Normal 0.0-2.0 [facility] Comment on above: Performed By: #### L [id number] ####Rn Eligibility: BELLA COLLINS ([id number])[facility]ITAL[facility]iy[facility] ([facility])[address] [place] [address] [facility] Platelet mean volume (Bld) [Entitic vol] 10.6 fL Normal 9.0-12.7 [facility] Comment on above: Result Comment: MPV is a calculated measurement using platelet volume ratio Performed By: #### L [id number] ####Rn Eligibility: BELLA COLLINS ([id number])[facility] ([facility])[address] [place] [address] [facility] Platelets (Bld) [#/Vol] 222 10*3/uL Normal 140-440 [facility] Comment on above: Performed By: #### L [id number] ####Rn Eligibility: BELLA COLLINS ([id number])[facility] ([facility])[address] RBC (Bld) [#/Vol] 4.08 10*6/uL Normal 3.80-5.20 [facility] Comment on above: Performed By: #### L [id number] ####Rn Eligibility: BELLA COLLINS ([id number])[facility] ([facility])[address] WBC (Bld) [#/Vol] 8.5 10*3/uL Normal 3.6-10.7 [facility] Comment on above: Performed By: #### L [id number] ####Rn Eligibility: BELLA COLLINS ([id number])[facility] ([facility])[address] LUMBAR SPINE W IV CONTRAS Ton 03-28-2025 CT LUMBAR SPINE W IV CONTRAST Normal [facility] CT Lumbar spine W contrast I Von 03-28-2025 1. Imaging does not explain the patient's clinical symptoms. If clinical symptoms persist, MRI may be of benefit. 2. Mild intrahepatic and extrahepatic biliary ductal distention likely reflects sequela from cholecystectomy, similar to 02/12/2025. 3. Gastric bypass. 4. Small volume of fluid in the pelvic cul-de-sac is likely physiologic in etiology. Hysterectomy. Bilateral ovarian cysts (left cyst has decreased in size compared to 02/12/2025). No follow-up required. 5. Appendectomy. Report Dictated on Electronically Signed By: Diane Bee MD Electronically Signed Date/Time: 03/28/2025 6:19 PM T [facility] Patient Name: LEXIS OAKES : 1985 Exam Date/Time: 03/28/2025 17:33 Procedure: CT LUMBAR SPINE W IV CONTRAST Ordering Provider: ORTIZ KAITLYN Reason For Exam: LP yesterday pain radiating down the right leg , numbess in the lower leg Gender: Female Age: 40 years Exam: CT LUMBAR SPINE W IV CONTRAST Clinical Indication: Pain which radiates down the right leg. Numbness lower leg. Lumbar puncture performed yesterday. Imaging Technique: Multiple axial 1mm CT images of the lumbar spine were obtained. Coronal and sagittal reconstructs were rendered. Dose reduction was employed with automated exposure control. This exam was performed with a wide field of view and includes nearly the entire abdomen and pelvis. Contrast: 75 mL of Isovue-370 IV contrast (contrast was not performed intrathecal) Comparison: CT abdomen and pelvis 02/12/2025 FINDINGS: The vertebral body heights and disc spaces are maintained without fracture. The facet alignment is within normal limits. The bone mineralization is within normal limits. The sacrum is intact. Within limitations of the CT exam, there is no appreciable intrathecal process (MRI is the most sensitive imaging modality to evaluate the central canal, disc space, and nerve roots). There is no hematoma within the subcutaneous fatty tissue or paraspinous musculature. The lung bases are clear. The portions of the liver and spleen visualized are within normal limits. The gallbladder is surgically absent with clips present. Mild intrahepatic and extrahepatic biliary ductal distention likely sequela from cholecystectomy, unchanged from 02/12/2025. The pancreas and adrenal glands are within normal limits. The kidneys symmetrically enhance without hydronephrosis. The bladder contour is normal (most inferior aspect excluded from [id number]). The uterus is absent. A small volume of fluid is present in the pelvic cul-de-sac. A right ovarian 2.3 cm cyst is present. A left ovarian cyst has decreased in size compared to 02/12/2025. Findings likely reflect a changing cyst pattern and no follow-up required. Clips in the cecum likely reflect appendectomy site. There are multiple fluid-filled loops of decompressed small bowel without evidence for obstruction. There are postsurgical changes of the stomach which is partially included in the [id number]-[id number]-rpaf from gastric bypass. Scattered atherosclerotic calcifications are present along the aorta and branches. There is no lymphadenopathy. [employer] [facility] Diane Bee MD - 03/28/2025 Patient Name: LEXIS OAKES : 1985 Exam Date/Time: 03/28/2025 17:33 Procedure: CT LUMBAR SPINE W IV CONTRAST Ordering Provider: ORTIZ KAITLYN Reason For Exam: LP yesterday pain radiating down the right leg , numbess in the lower leg Gender: Female Age: 40 years Exam: CT LUMBAR SPINE W IV CONTRAST Clinical Indication: Pain which radiates down the right leg. Numbness lower leg. Lumbar puncture performed yesterday. Imaging Technique: Multiple axial 1mm CT images of the lumbar spine were obtained. Coronal and sagittal reconstructs were rendered. Dose reduction was employed with automated exposure control. This exam was performed with a wide field of view and includes nearly the entire abdomen and pelvis. Contrast: 75 mL of Isovue-370 IV contrast (contrast was not performed intrathecal) Comparison: CT abdomen and pelvis 02/12/2025 FINDINGS: The vertebral body heights and disc spaces are maintained without fracture. The facet alignment is within normal limits. The bone mineralization is within normal limits. The sacrum is intact. Within limitations of the CT exam, there is no appreciable intrathecal process (MRI is the most sensitive imaging modality to evaluate the central canal, disc space, and nerve roots). There is no hematoma within the subcutaneous fatty tissue or paraspinous musculature. The lung bases are clear. The portions of the liver and spleen visualized are within normal limits. The gallbladder is surgically absent with clips present. Mild intrahepatic and extrahepatic biliary ductal distention likely sequela from cholecystectomy, unchanged from 02/12/2025. The pancreas and adrenal glands are within normal limits. The kidneys symmetrically enhance without hydronephrosis. The bladder contour is normal (most inferior aspect excluded from [id number]-[id number]). The uterus is absent. A small volume of fluid is present in the pelvic cul-de-sac. A right ovarian 2.3 cm cyst is present. A left ovarian cyst has decreased in size compared to 02/12/2025. Findings likely reflect a changing cyst pattern and no follow-up required. Clips in the cecum likely reflect appendectomy site. There are multiple fluid-filled loops of decompressed small bowel without evidence for obstruction. There are postsurgical changes of the stomach which is partially included in the jpglf-bw-hcnw from gastric bypass. Scattered atherosclerotic calcifications are present along the aorta and branches. There is no lymphadenopathy. IMPRESSION: 1. Imaging does not explain the patient's clinical symptoms. If clinical symptoms persist, MRI may be of benefit. 2. Mild intrahepatic and extrahepatic biliary ductal distention likely reflects sequela from cholecystectomy, similar to 02/12/2025. 3. Gastric bypass. 4. Small volume of fluid in the pelvic cul-de-sac is likely physiologic in etiology. Hysterectomy. Bilateral ovarian cysts (left cyst has decreased in size compared to 02/12/2025). No follow-up required. 5. Appendectomy. Report Dictated on Electronically Signed By: Diane Bee MD Electronically Signed Date/Time: 03/28/2025 6:19 PM EDT [facility] Radiology Study observation (narrative) [facility] CT Lumbar spine W contrast I VOrdered By: Diane Bee on 03-28-2025 [facility] Work Phone: ED Nursing Noteon 03-28-2025 ED Nursing Note Attempted IV x 2 without success. Was able to draw blood, but catheter wound not advance. Normal [facility] ED Provider Noteon ED Provider Note Normal [facility] - Chemistry and C hemistry - challengeOrdered By: Alysia Stovall on 03-28-2025 Anion gap (Bld) [Moles/Vol] 11 mmol/L 3.00 - 13.00 [facility] Calcium.ionized (Bld) [Moles/Vol] 4.2 mg/dl Low 4.30 - 5.20 mg/dl [facility] Chloride [Moles/Vol] 102 mmol/L 98 - 11 4 mmol/L [facility] CO2 [Moles/Vol] 25 mmol/L 21 - 29 mmol/L [facility] Creatinine [Mass/Vol] 0.6 mg/dL 0.6 - 1.3 mg/dL [facility] GFR/1.73 sq M.predicted CKD-EPI (S/P/Bld) [Vol rate/Area] 116.5 [facility] Comment on above: KDIGO guidelines pro vide the following GFR categories: Stage GFR (ml/min/1.73 m2) Terms G1 >=90 Normal or high G2 60-89 Mildly decreased* G3a 45-59 Mildly to moderately decreased G3b 30-44 Moderately to severely decreased G4 15-29 Severely decreased G5 <15 Kidney failure *Relative to young adult level. In the absence of evidence of kidney damage, neither GFR category G1 nor G2 fulfill the criteria for CKD. The CKD-EPI equation is validated in individuals 18 years of age and older. Currently the best equation for estimating glomerular filtration rate (GFR) from serum creatinine in children is the Bedside Soliz equation. It is less accurate in patients with extremes of muscle mass, restriction of dietary protein, ingestion of creatine, extra-renal metabolism of creatinine, or treatment with medications that affect renal tubular creatinine secretion. Glucose [Mass/Vol] 90 mg/dL 70 - 100 mg/dL [facility] Potassium [Moles/Vol] 3.7 mmol/L 3.4 - 5.1 mmol/L [facility] Sodium [Moles/Vol] 138 mmol/L 133 - 145 mmol/L [facility] Urea (Bld) [Mass/Vol] 10 mg/dL 4 - 22 mg/dL [facility] [employer] No Panel InformationOrdered By: Alysia Stovall on 03-28-2025 Interpretation and review of laboratory results Abnormal [facility] Performed by: [facility], [address] [address] CLIA ID: [id number] [facility] ANES POSTPROC EVALon 025 ANES POSTPROC EVAL HNO ID: [id number] Author: FERNANDEZ SINCLAIR MD Service: ? Author Type: Physician Type: Anesthesia Postprocedure Evaluation Filed: 03/27/2025 14:08 Note Text: POST ANESTHESIA EVALUATION NOTE : 1985 Procedure Summary Date: 03/27/25 Room / Location: [address] / [facility] HB6 Anesthesia Start: 1202 Anesthesia Stop: 1252 Procedure: SPINAL PUNCTURE LUMBAR DIAGNOSTIC (Spine) Diagnosis: IIH (idiopathic intracranial hypertension) (IIH (idiopathic intracranial hypertension) [G93.2]) Surgeons: Babs Bobo MD, MD Responsible Provider: Fernandez Sinclair MD Anesthesia Type: general ASA Status: 2 Anesthesia Type: MAC Airway Type: NC Last Vitals Vitals Value Taken Time BP 107/64 03/27/25 1330 Temp 36.6 03/27/25 1407 HR SpO2 80 03/27/25 1336 Resp 16 03/27/25 1259 SpO2 100 % 03/27/25 1336 Vitals shown include unfiled device data. Post Anesthesia Patient Status Patient Evaluation: PACU. PACU/ICU Patient Condition: stable. Anticipated Disposition: phase 2 then home. Neurological Status: aware and responsive. Pulmonary Status: breathing comfortably on supplemental oxygen Airway Control: returned to baseline unsupported. Cardiovascular Status: stable. Pain Management: clinically adequate Postoperative Hydration: acceptable. Intraoperative Events: no significant anesthesia events Post Operative Nausea/Vomiting Status: no significant post operative nausea or vomiting Recommendation: further care per PACU/ICU/floor team. Anesthesia Observations No Documentation SIGNATURE: Fernandez Sinclair MD PATIENT NAME: Lexis Nguyen DATE: March 27, 2025 TIME: 2:07 PM CSN: [id number] Normal [facility] ANES PRE-OPon 03-27-2025 ANES PRE-OP HNO ID: [id number] Author: FERNANDEZ SINCLAIR MD Service: ? Author Type: Physician Type: Anesthesia Preprocedure Evaluation Filed: 03/27/2025 14:07 Note Text: ANESTHESIOLOGY DAY OF SURGERY NOTE : 1985 Procedure Information Date/Time: 03/27/25 0800 Procedure: SPINAL PUNCTURE LUMBAR DIAGNOSTIC (Spine) - LP W TABBY Yun 02/15 SPK TO PT 02/15 Location: [id number] / [facility] HB6 Surgeons: Babs Bobo MD, MD Estimated body mass index is 41.63 kg/m? as calculated from the following: Height as of 01/15/25: 162.6 cm (5' 4). Weight as of 02/05/25: 110 kg (242 lb 8.1 oz). Most recent hematocrit and potassium results: Hematocrit 39.1 01/29/2025 Potassium 3.8 10/10/2023 Relevant Problems CARDIO (+) Exhausted vascular access GI (+) Gastroesophageal reflux disease NEURO-PSYCH (+) Epilepsy (HCC) (+) Headaches Neurology (+) IIH (idiopathic intracranial hypertension) Cardiovascular (+) Difficult intravenous access Gastrointestinal (+) S/P gastric bypass Psychiatry (+) Major depression, single episode I - PHYSICAL EVALUATION AIRWAY Patient intubated: No. Tracheostomy tube not present Mallampati: III. TM distance: >3 FB. Neck ROM: full ROM without neurological symptoms. Mouth opening: adequate. Short neck: yes. Thick neck: yes Rangel present: no Microretrognathia/Micr onagthia/Recessed Chin: No DENTAL Dental findings: teeth intact. Additional exam findings: no II - ANESTHESIA PLAN ASA Score: 2 Anesthetic Plan: MAC The patient is a current smoker. NPO Status: adequate Beta Poncho Administration of chronic beta poncho medication planned. Monitoring Plan Monitoring plan: standard ASA. Post Procedure Analgesic Plan Postoperative analgesic plan: parenteral or oral opioids and multimodal analgesia. Informed Consent Anesthetic risks, benefits, alternatives, personnel and consent discussed: yes. Patient / Responsible Libertarian agrees to proceed: yes Patient / Surrogate agrees to blood products: blood products not planned DNR status not reviewed with patient and/or family prior to surgery. Significant changes in the patient condition since the History and Physical, not otherwise documented in primary service progress note: no. Potential Anesthesia issues that may suggest increased risk of complications or contraindication to planned procedure: surgical field avoidance and potential difficult IV access. field avoidance. The anesthetic will be complicated due to field avoidance because the surgical procedure will be around the airway (head, neck, or shoulder girdle). There will be no direct access to the patient's airway therefore increasing the technical difficulty. Vitals Value Taken Time BP 116/76 03/27/25 0713 Pulse 86 03/27/25 0713 Resp 14 03/27/25 0713 Temp 36.8 ?C (98.3 ?F) 03/27/25 0713 SpO2 99 % 03/27/25 0713 No current facility-administered medications on file as of 03/27/2025. Outpatient Medications as of 03/27/2025 Medication Sig SEMAGLUTIDE SUBCUTANEOUS Inject subcutaneously. lidocaine, PF, (XYLOCAINE) 10 mg/mL (1 %) soln injection 1-10 mL by INTRADERMAL route as needed. For use during PICC/Midline Insertion ONLY. omeprazole (PRILOSEC) 20 mg capsule Take 1 capsule by mouth once daily. traMADol (ULTRAM) 50 mg tablet Take 1 tablet by mouth twice daily as needed for pain. cyanocobalamin (VITAMIN B-12) 1,000 mcg tab Take 1 tablet by mouth once daily. lacosamide (VIMPAT) 200 mg Take 1 tablet by mouth twice daily. ARIPiprazole (ABILIFY) 10 mg tablet Take 10 mg by mouth once daily. DULoxetine (CYMBALTA) 60 mg capsule duloxetine 60 mg capsule,delayed release TAKE 1 CAPSULE BY MOUTH TWICE DAILY Calcium Citrate 250 mg calcium tab Take 1 tablet by mouth once daily. I have interviewed and examined the patient. I have reviewed the medical record and/or the pre-anesthesia evaluation, pertinent labs, and test results. This contains updated information obtained within 48 hours of Surgery/Procedure. SIGNATURE: Fernandez Sinclair MD PATIENT NAME: Lexis Nguyen DATE: March 27, 2025 TIME: 7:24 AM CSN: [id number] Normal [facility] BRIEF OP NOTon 03-27-2025 BRIEF OP NOT HNO ID: [id number] Author: JASMYNE SMITH MD Service: Radiology Author Type: Fellow Type: Brief Op Note Filed: 03/27/2025 12:54 Note Text: BRIEF OPERATIVE / PROCEDURE NOTE LOG ID: [id number] SURGERY/PROCEDURE DATE: 03/27/2025 INCISION/PROCEDURE START TIME: 12:26 PM INCISION CLOSE/PROCEDURE END TIME: 12:37 PM SURGEON(S)/PROCEDURALI ST(S) AND SCREEN CUTTER AND TRIMMER(S): Surgeons and Role: * Babs Bobo MD, MD - Primary * Jasmyne Smith MD - Fellow No Additional Staff SURGERY/PROCEDURE(S)3: Image guide therapeutic lumbar puncture ANESTHESIA: Choice - Anesthesia Consult FINDINGS: Successful Image guided therapeutic lumbar puncture ESTIMATED BLOOD LOSS: 0 ml SPECIMENS: 5 cc of clear CSF COMPLICATIONS: None CLOSURE TECHNIQUE: primary PRE-OP/PRE-PROCEDURE DIAGNOSIS: IIH POST-OP/POST-PROCEDURE DIAGNOSIS: Same as Preop SIGNATURE: Jasmyne Smith MD PATIENT NAME: Lexis Nguyen DATE: March 27, 2025 TIME: 12:53 PM [facility] IR LP FOR DRAINAGE (PRESSURE )on 03-27-2025 IR LP FOR DRAINAGE (PRESSURE) * * *Final Report* * * DATE OF EXAM: Mar 27 2025 12:48PM NDA 0853 - IR LP FOR DRAINAGE (PRESSURE) / PROCEDURE REASON: IIH (idiopathic intracranial hypertension) * * * * Physician Interpretation * * * * PROCEDURE: PROCEDURE: PROCEDURE: Therapeutic Lumbar Puncture Under Fluoroscopic Guidance HISTORY: The patient with intracranial hypertension. Consent: Informed consent was obtained for this procedure. Details of informed consent can be found in Epic under the consent tab. General: A) Medication Reconciliation: The patient's medications and allergies were reviewed in the electronic medical record and reconciled to the proposed procedure/treatment. B) Pre-Procedure Medications: Medication #1: None C) Positioning: The patient was placed Prone on the Fluoroscopy table. D) The lumbar dorsal soft tissues. were then sterile prepped and draped. E) Time Out: A time out was performed immediately prior to procedure start with the nursing, anesthesia and interventional team, correctly identifying the name, medical record number, procedure, anatomy (including marking of site and side), patient position, procedure consent form, relevant diagnostic and radiology test results, antibiotic administration, safety precautions, and procedure-specific equipment needs. Timeout Affirmation (if attending not present): Attending present. Timeout Time and Procedure Start Time: 1226 F) Anesthesia Type: administration of local anesthesia. Local Anesthesia: 3 cc 1% Lidocaine G) Anesthesia (sedation) was administered for a total of (see anesthesiology service documentation). H) Patient Monitoring: Not applicable. TECHNIQUE/RESULT: A) Access Site: 15 cm 20 gauge spinal needle from a Midline approach at the L3-L4 level. Laminectomy defect present: no. Laminectomy defect traversed: Not applicable B) Counting reference: Lumbosacral junction. For the purposes of this report, L4-5 is considered the level of the iliac crest. C) Procedure Details: Using sterile procedure, local anesthesia was introduced to the skin and subcutaneous tissues as outlined above. Therapeutic LP Details: Therapeutic Volume: 5 ml of CSF was withdrawn in a sterile fashion from the subarachnoid space and forwarded to the laboratory for analysis. No contrast was administered Opening pressure was recorded at 22 cm H2O Closing pressure was recorded at 14 cm H2O CSF Color: Clear D) Estimated Blood Loss: 0 mls E) Type of Removed Specimens: CSF F) Number of Specimens: None Fluoroscopic Radiation Summary: Plane A, Air Kerma: 11.0 mGy Fluoro time: 1:00 min:sec Post-Procedure: Conclusion: The patient was transferred to the Radiology Recovery Room in stable condition and observed for approximately 60 minutes. Immediate Complications: None ([id number]). Procedure End Time and Sign Out Time: 1237 IMPRESSION: TECHNICALLY SUCCESSFUL THERAPEUTIC LUMBAR PUNCTURE. Attending Physician: Dr. Ingris Bobo. Home Care Attendant: Dr. Maged Smith The procedure was performed by the retirement assistant, and the attending radiologist was present for all critical and elias portions of the procedure, and was immediately available to furnish services during the entire procedure. Heel Nailing Machine Operator: MILI Transcribe Date/Time: Mar 27 2025 4:29P Dictated by : JASMYNE SMITH MD This examination was interpreted and the report reviewed and electronically signed by: BABS BOOB MD on Mar 27 2025 6:10PM EST Normal [facility] NURSING PROGon 03-27-2025 NURSING PROG HNO ID: [id number] Author: KAVYA REMY RN Service: Nursing Author Type: Registered Nurse Type: Nursing Progress Note Filed: 03/28/2025 09:11 Note Text: Completed post procedure phone call. Lexis Nguyen reports having pain and discomfort post lumbar puncture. This nurse informed the patient to take either OTC tylenol or Ibuprofen for pain accompanied with hot or cold packs, 20 minutes on/20 minutes off. The patient was informed to contact the department if the discomfort should worsen. Kavya Remy RN Normal [facility] [id number] 03-12-2025 [id number] Normal [facility] Anesthesia Noteon 03-12-2025 Anesthesia Note Normal [facility] Anesthesia Note Normal [facility] Op Noteon 03-12-2025 Op Note Normal [facility] 36on 03-02-2025 36 I have called this patient and got her scheduled for her EGD. Can someone call her back about the upper GI and see if this is something that she needs to repeat again? Normal [facility] 36 [id number] 01/23/2014 [place] Mychart to pt with message from S[employer]KER [employer]CTOR [employer]IVER about UGI SBFT results. Normal [facility] 36 ----- Message from KRISHAN Bergman CNP sent at 03/02/2025 5:43 AM EDT ----- HH. No small bowel info as she left early. Normal [facility] RF Upper gastrointestinal tr act and Small bowel Single view W contrast Oleg 03-01-2025 Changes consistent with previous Krystal-en-Y gastric bypass. Small hiatal hernia without spontaneous gastroesophageal reflux. Incomplete/nondiagnost ic small bowel series due to patient leaving prior to completing the study. Report Dictated on Electronically Signed By: Alfredito Gay MD Electronically Signed Date/Time: 03/01/2025 2:12 PM EDT [facility] Patient Name: LEXIS OAKES : 1985 Exam Date/Time: 03/01/2025 09:00 Procedure: FL UPPER GI SINGLE CONTRAST WITH SMALL BOWEL FOLLOW THROUGH Ordering Provider: SPANN LEISA Reason For Exam: BILE REFLUX UPPER GI AND SMALL BOWEL SERIES CLINICAL INDICATOR: Abdominal pain. Abdominal pain with nausea and vomiting. History of Krystal-en-Y gastric bypass in 2013. COMPARISON: None. FLUOROSCOPY DOSE: Ka,r= 124.7 mGy TECHNIQUE: Biphasic upper GI is performed. Two more cups of barium were administered and the small bowel is studied with serial images up to and including 90 minutes. Spot images of the terminal ileum were not obtained due to patient leaving before study was complete. FINDINGS: The preliminary image demonstrates a nonspecific bowel gas pattern. Barium and air are administered. The esophagus is studied in the upright and recumbent positions. The initial swallowing mechanism is unremarkable. The esophagus is normal in course and caliber. There is a small hiatal hernia. No spontaneous gastroesophageal reflux is demonstrated. There are postsurgical gastric bypass changes with partial gastrectomy. The gastric pouch is unremarkable and shows prompt contrast emptying into the jejunum through a patent gastrojejunostomy. The proximal jejunum visualized is unremarkable. The small bowel series was incomplete and nondiagnostic due to the patient leaving prior to completing the study. [facility] Alfredito Gay MD - 03/01/2025 Patient Name: LEXIS OAKES : 1985 Exam Date/Time: 03/01/2025 09:00 Procedure: FL UPPER GI SINGLE CONTRAST WITH SMALL BOWEL FOLLOW THROUGH Ordering Provider: SPANN LEISA Reason For Exam: BILE REFLUX UPPER GI AND SMALL BOWEL SERIES CLINICAL INDICATOR: Abdominal pain. Abdominal pain with nausea and vomiting. History of Krystal-en-Y gastric bypass in 2013. COMPARISON: None. FLUOROSCOPY DOSE: Ka,r= 124.7 mGy TECHNIQUE: Biphasic upper GI is performed. Two more cups of barium were administered and the small bowel is studied with serial images up to and including 90 minutes. Spot images of the terminal ileum were not obtained due to patient leaving before study was complete. FINDINGS: The preliminary image demonstrates a nonspecific bowel gas pattern. Barium and air are administered. The esophagus is studied in the upright and recumbent positions. The initial swallowing mechanism is unremarkable. The esophagus is normal in course and caliber. There is a small hiatal hernia. No spontaneous gastroesophageal reflux is demonstrated. There are postsurgical gastric bypass changes with partial gastrectomy. The gastric pouch is unremarkable and shows prompt contrast emptying into the jejunum through a patent gastrojejunostomy. The proximal jejunum visualized is unremarkable. The small bowel series was incomplete and nondiagnostic due to the patient leaving prior to completing the study. IMPRESSION: Changes consistent with previous Krystal-en-Y gastric bypass. Small hiatal hernia without spontaneous gastroesophageal reflux. Incomplete/nondiagnost ic small bowel series due to patient leaving prior to completing the study. Report Dictated on Electronically Signed By: Alfredito Gay MD Electronically Signed Date/Time: 03/01/2025 2:12 PM EDT [facility] Radiology Study observation (narrative) [facility] RF Upper gastrointestinal tr act and Small bowel Single view W contrast POOrdered By: Alfredito Gay on 03-01-2025 [facility] 36on 02-16-2025 36 Will review next tacos Soto. [facility] 36on 02-13-2025 36 Films available in PACS - please note patient name [facility] 36 [facility] 36 Normal [facility] 36 [facility] Progress Noteon 02-13-2025 Progress Note Normal [facility] Progress Note 1ST attempt: my hansa t sent to pt to call and schedule EGD. Normal [facility] Progress Note Printed, given to scheduler maintenance. Normal [facility] Progress Note Auth required: YES Insurance: [employer] ID number: Authorization number: [id number] Valid dates: 03/12/25-09/08/25 Notes: Normal [facility] System [facility] CBC W Auto Differential pane l (Bld)on 02-12-2025 Basophils (Bld) [#/Vol] 0.1 10*3/uL 0.0 - 0.2 10*3/uL [facility] Basophils/100 WBC (Bld) 0.6 % 0.0 - 2.0 % [facility] Eosinophils (Bld) [#/Vol] 0.1 10*3/uL 0.0 - 0.5 10*3/uL [facility] Eosinophils/100 WBC (Bld) 1 % 0.0 - 6.0 % [facility] Erythrocyte distribution width (RBC) [Ratio] 13 % 11.5 - 15.0 % [facility] Hematocrit (Bld) [Volume fraction] 43.4 % 35.0 - 47.0 % [facility] Hemoglobin (Bld) [Mass/Vol] 14.4 g/dL 11.7 - 16.0 g/dL [facility] Immature granulocytes (Bld) [#/Vol] 0 10*3/uL NINF - 0.1 10*3/uL [facility] Immature granulocytes/100 WBC (Bld) 0.5 % 0.0 - 2.0 % [facility] Interpretation and review of laboratory results Normal [facility] Lymphocytes (Bld) [#/Vol] 1.6 10*3/uL 1.0 - 4.3 10*3/uL [facility] Lymphocytes/100 WBC (Bld) 20.6 % 15.0 - 45.0 % [facility] MCH (RBC) [Entitic mass] 31.2 pg 26. 0 - 34.0 pg [facility] MCHC (RBC) [Mass/Vol] 33.2 % 30.5 - 36.0 % [facility] MCV (RBC) [Entitic vol] 94.1 fL 77.0 - 99.0 fL [facility] Monocytes (Bld) [#/Vol] 0.6 10*3/uL 0.0 - 0.9 10*3/uL [facility] Monocytes/100 WBC (Bld) 7.2 % 5.0 - 13.0 % [facility] Neutrophils (Bld) [#/Vol] 5.6 10*3/uL 1.8 - 7.5 10*3/uL [facility] Neutrophils/100 WBC (Bld) 70.1 % 38.0 - 82.0 % [facility] Nucleated RBC/100 WBC (Bld) [Ratio] 0 % [facility] Platelet mean volume (Bld) [Entitic vol] 10.3 fL 9.0 - 12.7 fL [facility] Comment on above: MPV is a calculated measurement using platelet volume ratio Platelets (Bld) [#/Vol] 232 10*3/uL 140 - 440 10*3/uL [facility] RBC (Bld) [#/Vol] 4.61 10*6/uL 3.80 - 5.2 0 10*6/uL [facility] WBC (Bld) [#/Vol] 8 10*3/uL 3.6 - 10.7 10*3/uL [facility] CBC WITH AUTO DIFFERENTIALon 02-12-2025 Basophils (Bld) [#/Vol] 0.1 10*3/uL Normal 0.0-0.2 [facility] Comment on above: Performed By: #### L [id number] ####Rn Eligibility: BELLA COLLINS ([id number])[facility] Sparq SystemsFORMERLY PARK RIDGE HEALTHLeiyoo [place] ([facility])[address] [place] [address] [place] Basophils/100 WBC (Bld) 0.6 % Normal 0.0-2.0 [facility] Comment on above: Performed By: #### L [id number] ####Rn Eligibility: BELLA COLLINS ([phone])[facility] Sparq SystemsITAGE [place] ([facility])[address] [place] [address] [place] Eosinophils (Bld) [#/Vol] 0.1 10*3/uL Normal 0.0-0.5 [facility] Comment on above: Performed By: #### L [id number] ####Rn Eligibility: BELLA COLLINS ([id number])[facility] Sparq SystemsFORMERLY [facility] RIDGE HEALTHGE [facility] ([facility])[address] [place] [address] [place] Eosinophils/100 WBC (Bld) 1.0 % Normal 0.0-6.0 [facility] Comment on above: Performed By: #### L [id number] ####Rn Eligibility: BELLA COLLINS ([phone])[facility] [employer] [place] ([facility])[address] Erythrocyte distribution width (RBC) [Ratio] 13.0 % Normal 11.5-15.0 [facility] Comment on above: Performed By: #### L [id number] ####Rn Eligibility: BELLA COLLINS ([id number])[facility] VALLEY HOSPITALVisualmarksGE [place] ([facility])[address] Hematocrit (Bld) [Volume fraction] 43.4 % Normal 35.0-47.0 [facility] Comment on above: Performed By: #### L [id number] ####Rn Eligibility: BELLA COLLINS ([id number])[facility] [employer] [place] ([facility])[address] Hemoglobin (Bld) [Mass/Vol] 14.4 g/dL Normal 11.7-16.0 [facility] Comment on above: Performed By: #### L [id number] ####Rn Eligibility: BELLA COLLINS ([id number])[facility] [employer] [place] ([facility])[address] IMMATURE GRANS % 0.5 % Normal 0.0-2.0 [facility] Comment on above: Performed By: #### L [id number] ####Rn Eligibility: BELLA COLLINS ([id number])[facility] [employer] [place] ([facility])[address] IMMATURE GRANS ABSOLUTE 0.0 10*3/uL Normal <0.1 [facility] Comment on above: Performed By: #### L [id number] ####Rn Eligibility: BELLA COLLINS ([id number])[facility] [employer] [place] ([facility])[address] [place] [address] [place] Lymphocytes (Bld) [#/Vol] 1.6 10*3/uL Normal 1.0-4.3 [facility] Comment on above: Performed By: #### L [id number] ####Rn Eligibility: BELLA COLLINS ([id number])[facility] [place] ([facility])[address] Lymphocytes/100 WBC (Bld) 20.6 % Normal 15.0-45.0 [facility] Comment on above: Performed By: #### L [id number] ####Rn Eligibility: BELLA COLLINS ([id number])[facility]A Sparq SystemsITAGE [place] ([facility])[address] MCH (RBC) [Entitic mass] 31.2 pg Normal 26.0-34.0 [facility] Comment on above: Performed By: #### L [id number] ####Rn Eligibility: BELLA COLLINS ([id number])[facility] Sparq SystemsITAGE [place] ([facility])[address] MCHC 33.2 % Normal 30.5-36.0 [facility] Comment on above: Performed By: #### L [id number] ####Rn Eligibility: BELLA COLLINS ([phone])[facility] Sparq SystemsITAGE [place] ([facility])[address] MCV (RBC) [Entitic vol] 94.1 fL Normal 77.0-99.0 [facility] Comment on above: Performed By: #### L [id number] ####Rn Eligibility: BELLA COLLINS ([id number])[facility] Sparq SystemsITAGE [place] ([facility])[address] Monocytes (Bld) [#/Vol] 0.6 10*3/uL Normal 0.0-0.9 [facility] Comment on above: Performed By: #### L [id number] ####Rn Eligibility: BELLA COLLINS ([id number])[facility] [place] ([facility])[address] [place] [address] [place] Monocytes/100 WBC (Bld) 7.2 % Normal 5.0-13.0 [facility] Comment on above: Performed By: #### L [id number] ####Rn Eligibility: BELLA COLLINS ([id number])[facility] ([facility])[address] [place] [address] [facility] NEUTROPHILS ABSOLUTE 5.6 10*3/uL Normal 1.8-7.5 [facility] Comment on above: Performed By: #### L [id number] ####Rn Eligibility: BELLA COLLINS ([id number])[facility] [place] ([facility])[address] [place], [place] [address] [place] [address] Neutrophils/100 WBC (Bld) 70.1 % Normal 38.0-82.0 [facility] Comment on above: Performed By: #### L [id number] ####Rn Eligibility: BELLA COLLINS ([id number])[facility] Sparq SystemsITAGE [place] ([facility])[address] NRBC 0.0 /100 WBCs Normal 0.0-2.0 [facility] Comment on above: Performed By: #### L [id number] ####Rn Eligibility: BELLA COLLINS ([id number])[facility] Sparq SystemsITAGE [place] ([facility] [place] [address] [facility] Platelet mean volume (Bld) [Entitic vol] 10.3 fL Normal 9.0-12.7 [facility] Comment on above: Result Comment: MPV is a calculated measurement using platelet volume ratio Performed By: #### L [id number] ####Rn Eligibility: BELLA COLLINS ([id number])[facility] Sparq SystemsITAGE [place] ([facility])[address] [place] [address] [place] Platelets (Bld) [#/Vol] 232 10*3/uL Normal 140-440 [facility] Comment on above: Performed By: #### L [id number] ####Rn Eligibility: BELLA COLLINS ([id number])[facility]A [facility]ENTER[facility] ([facility])[address] RBC (Bld) [#/Vol] 4.61 10*6/uL Normal 3.80-5.20 [facility] Comment on above: Performed By: #### L [id number] ####Rn Eligibility: BELLA COLLINS ([id number])[facility] ([facility])[address] [place] [address] WBC (Bld) [#/Vol] 8.0 10*3/uL Normal 3.6-10.7 [facility] Comment on above: Performed By: #### L [id number] ####Rn Eligibility: BELLA COLLINS ([id number])[facility]ITAL[facility] ([facility])[address] [place] [address] COMPREHENSIVE METABOLIC PANE Kj 02-12-2025 Albumin [Mass/Vol] 3.7 g/dL Normal 3.5-5.0 [facility] Comment on above: Performed By: #### L [id number] ####Rn Eligibility: BELLA COLLINS ([id number])[facility] ([facility])[address] [place] [address] ALP [Catalytic activity/Vol] 118 U/L Normal 40-150 [facility] Comment on above: Performed By: #### L [id number] ####Rn Eligibility: BELLA COLLINS ([id number])[facility] [place] ([facility])[address] [place] [address] ALT [Catalytic activity/Vol] 83 U/L High <30 [facility] Comment on above: Performed By: #### L [id number] ####Rn Eligibility: BELLA COLLINS ([id number])[facility] [place] ([facility])[address] [place] [address] [facility] Anion gap [Moles/Vol] 11 mmol/L Normal 3-13 [facility] Comment on above: Performed By: #### L [id number] ####Rn Eligibility: BELLA COLLINS ([phone])[facility] ([facility])[address] [place] [address] [facility] AST [Catalytic activity/Vol] 75 U/L High <34 [facility] Comment on above: Performed By: #### L [id number] ####Rn Eligibility: BELLA COLLINS ([phone])[facility]ITAL[facility] ([facility])[address] [place] [address] [facility] Bilirubin [Mass/Vol] 0.6 mg/dL Normal <1.2 [facility] Comment on above: Performed By: #### L [id number] ####Rn Eligibility: BELLA COLLINS ([phone])[facility] [place] ([facility])[address] [place] [address] [place] Calcium [Mass/Vol] 8.5 mg/dL Normal 8.4-10.2 [facility] Comment on above: Performed By: #### L [id number] ####Rn Eligibility: BELLA COLLINS ([id number])[facility]ITAL[facility]AGE [facility] ([facility])[address] [place] [address] [place] Chloride [Moles/Vol] 106 mmol/L Normal 98-107 [facility] Comment on above: Performed By: #### L [id number] ####Rn Eligibility: BELLA COLLINS ([phone])[facility]ITALITAGE [place] ([facility])[address] [place] [address] [place] CO2 [Moles/Vol] 24 mmol/L Normal 22-29 [facility] Comment on above: Performed By: #### L [id number] ####Rn Eligibility: BELLA COLLINS ([phone])[facility] [place] ([facility] [place] [address] [place] Creatinine [Mass/Vol] 0.77 mg/dL Normal 0.57-1.11 [facility] Comment on above: Performed By: #### L [id number] ####Rn Eligibility: BELLA COLLINS ([id number])[facility] [place] ([facility])[address] [place] [address] [facility] GLOMERULAR FILTRATION RATE ML/MIN/1.73 SQ M.PREDICTED >90.0 Normal >60.0 [facility] Comment on above: Result Comment: Calc ulation based on the Chronic Kidney Disease Epidemiology Collaboration (CKD-EPI) equation refit without adjustment for race Performed By: #### L [id number] ####Rn Eligibility: BELLA COLLINS ([id number])[facility] [place] ([facility])[address] [place] [address] [facility] Glucose [Mass/Vol] 94 mg/dL Normal 74-100 [facility] Comment on above: Performed By: #### L [id number] ####Rn Eligibility: BELLA COLLINS ([phone])[facility] [place] ([facility])[address] [place] [address] [facility] Potassium [Moles/Vol] 4.4 mmol/L Normal 3.5-5.1 [facility] Comment on above: Result Comment: [facility] potassium values may be up to 0.5 mmol/L lower than serum values. Performed By: #### L [id number] ####Rn Eligibility: BELLA COLLINS ([phone])[facility] [place] ([facility] [place] [address] [place] Protein [Mass/Vol] 6.6 g/dL Normal 6.4-8.3 [facility] Comment on above: Performed By: #### L [id number] ####Rn Eligibility: BELLA COLLINS ([id number])[facility] [place] ([facility])[address] [place] [address] [facility] Sodium [Moles/Vol] 141 mmol/L Normal 136-145 [facility] Comment on above: Performed By: #### L [id number] ####Rn Eligibility: BELLA COLLINS ([phone])[facility] ([facility])[address] [place] [address] [facility] Urea nitrogen [Mass/Vol] 8 mg/dL Normal 8-21 [facility] Comment on above: Performed By: #### L [id number] ####Rn Eligibility: BELLA COLLINS ([phone])[facility] ([facility])[address] ABDOMEN PELVIS W CONTRAST on 02-12-2025 CT ABDOMEN PELVIS W CONTRAST Normal [facility] CT Abdomen and Pelvis W cont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 OAKES : 1985 [facility]#: [id number] Exam Date/Time: 02/11/2025 15:51 Procedure: US PELVIS TRANSVAGINAL Ordering Provider: AYALA KASSIDY Reason For Exam: RLQ abdominal pain, concern for cyst versus other etiology ULTRASOUND PELVIS: CLINICAL INDICATION: Right lower quadrant pain, nausea, vomiting COMPARISON: none TECHNIQUE: Transvaginal to optimally evaluate the ovaries and adnexal structures including color flow and spectral Doppler imaging FINDINGS: Uterus: Surgically absent. Right Ovary: Size: 1.7 x 2.2 x 1.2 cm Mass: none Cyst: Few small follicles. Color flow/Doppler waveform: Present. Left Ovary: Size: 4.2 x 2.5 x 2.6 cm Mass: none Cyst: 2.4 cm hemorrhagic cyst. Color flow/Doppler waveform: Present. Free fluid: None IMPRESSION: 2.4 cm left ovarian hemorrhagic cyst. Sonographically unremarkable right ovary. Report Dictated on Electronically Signed By: Kristin Jiménez DO Electronically Signed Date/Time: 02/11/2025 4:40 PM EDT [facility] Radiology Study observation (narrative) [facility] alth US Pelvis transvaginalOrdere d By: Kristin Jiménez on 02-11-2025 [facility] Work Phone: Urinalysis complete panel (U )Ordered By: Rebecca Ortiz on 02-11-2025 Bilirubin Ql (U) Negative Negative mg/dL [facility] Clarity (U) Clear Clear [facility] Color (U) Colorless Lt. Yellow [facility] Glucose Ql (U) Normal Normal (<70) mg/dL [facility] Hemoglobin Ql (U) Negative Negative mg/dL [facility] Interpretation and review of laboratory results Abnormal [facility] Ketones (U) [Mass/Vol] Negative Negat reina mg/dL [facility] Leukocyte esterase Test strip Ql (U) Negative Negative Ruby/uL [facility] Nitrite Ql (U) Negative Negative [facility] th pH (U) 5.5 [pH] 5.0 - 8.0 pH [facility] Protein (U) [Mass/Vol] Negative Negat reina mg/dL [facility] Specific gravity (U) [Rel density] 1.003 Low 1.005 - 1.030 [facility] Urobilinogen (U) [Mass/Vol] Normal Normal (0-1) mg/dL [facility] Progress Noteon 02-09-2025 Progress Note Normal [facility] SHS Tilt Tableon 02-08-2025 Tilt Table [facility] [address] [place] [address] 02/08/25 1724 MR#: [id number] Acct: [id number] Name: LEXIS NGUYEN Rep #: [id number] : 1985 39 From: Kvng Bolden MD Attending Dr: Dr. Fede Davis MD Status: REG C Ordering Dr: Fede Davis MD Date: 02/08/25 Location: [facility] Sex: F C Admitted: Staff Staff: Glendy Meza and Kaelyn Stovall Summary Pre Test Resting HR: 90 Pre Test Resting BP: 126/97 Minimum Test HR: 84 Maximum Test HR: 92 Minimum Test BP: 113/96 Maximum Test BP: 132/87 Reason for Test Termination: Reached Maximum Test Time Physician Tilt Table Report Patient's Physicians Primary Care Physician: Fede Davis Indications/Diagnosis: Syncope Procedure Comments: The patient was brought to the noninvasive lab in the postabsorptive nonsedated state. Informed consent was obtained. Initial heart rate was noted to be 86 bpm with a blood pressure of 115/79 mmHg in sinus rhythm. Patient was then put in the 70 degree head upright tilt position. Continuous EKG monitoring heart rate and blood pressure monitoring was obtained. Patient complained of mild episodes of blurred vision. She also got mildly diaphoretic and slightly lightheaded but blood pressure and heart rate remained stable throughout. Patient was kept in this position for approximately 30 minutes. No other symptomatology was noted. Summary: Negative head upright tilt table test. 02/08/25 1731 Date Kvng Bolden MD CC: Dr. Fede Davis MD Date Dictated: 02/08/251723 Date Transcribed: 02/08/251723 Heel Nailing Machine Operator: CO Signed Normal [facility] ANES POSTPROC EVALon 025 ANES POSTPROC EVAL HNO ID: [id number] Author: FARZAD RAJPUT MD Service: Anesthesiology Author Type: Anesthesiologist Type: Anesthesia Postprocedure Evaluation Filed: 02/06/2025 07:20 Note Text: POST ANESTHESIA EVALUATION NOTE : 1985 Procedure Summary Date: 02/05/25 Room / Location: [facility] / IR Anesthesia Start: 941 Anesthesia Stop: 1049 Procedure: SPINAL PUNCTURE THERAPEUTIC, DRAIN CSF VIA NEEDLE OR CATH (Pending) Diagnosis: IIH (idiopathic intracranial hypertension) (IIH (idiopathic intracranial hypertension) [G93.2]) Surgeons: Janice Arroyo PA-C Responsible Provider: Farzad Rajput MD Anesthesia Type: MAC ASA Status: 3 Anesthesia Type: MAC Last Vitals Vitals Value Taken Time BP 141/84 02/05/25 1130 Temp 36.7 ?C (98.1 ?F) 02/05/25 1130 Pulse 85 02/05/25 1130 Resp 18 02/05/25 1130 SpO2 100 % 02/05/25 1130 Post Anesthesia Patient Status Patient Evaluation: PACU. PACU/ICU Patient Condition: stable. Intraoperative Events: no significant anesthesia events Anesthesia Observations No Documentation SIGNATURE: Farzad Rajput MD PATIENT NAME: Lexis Nguyen DATE: February 06, 2025 TIME: 7:20 AM CSN: [id number] Normal [facility] Anion gap in Serum or Plasma Ordered By: Fede Davis on 02-06-2025 Anion gap [Moles/Vol] 11 mmol/L 04-05 [facility] BUN/creatinine ratioOrdered By: Fede Davis on 02-06-2025 Urea nitrogen/Creatinine [Mass ratio] 12.5 mg/mg 09-10 [facility] Basic Metabolic Profile (BMP )on 02-06-2025 BUN/CRE 12.5 RATIO Normal 09-10 [facility] Comment on above: Order Comment: Order Date: 02/06/25Order Info: 0667-1 - BMPTilt table test Performed By: #### L 500.2500, L700.6800, L100.0500 ####[facility] [address] [place], [address] Calcium [Mass/Vol] 8.7 mg/dL Normal 7.6-11.0 [facility] Comment on above: Order Comment: Order Date: 02/06/25Order Info: 0667-1 - BMPTilt table test Performed By: #### L 500.2500, L700.6800, L100.0500 ####[facility] [address] [place], [address] Chloride [Moles/Vol] 104 mmol/L Normal 98-108 [facility] Comment on above: Order Comment: Order Date: 02/06/25Order Info: 0667-1 - BMPTilt table test Performed By: #### L 500.2500, L700.6800, L100.0500 ####[facility] [address] [place], [address] CO2 [Moles/Vol] 21.2 mmol/L Normal 21.0-32.0 [facility] Comment on above: Order Comment: Order Date: 02/06/25Order Info: 0667-1 - BMPTilt table test Performed By: #### L 500.2500, L700.6800, L100.0500 ####[facility] [address] [place], [address] Creatinine [Mass/Vol] 0.73 mg/dL Normal 0.70-1.20 [facility] Comment on above: Order Comment: Order Date: 02/06/25Order Info: 0667-1 - BMPTilt table test Performed By: #### L 500.2500, L700.6800, L100.0500 ####[facility] [address] [place], [address] GAP 11 Normal 5-15 [facility] Comment on above: Order Comment: Order Date: 02/06/25Order Info: 0667-1 - BMPTilt table test Performed By: #### L 500.2500, L700.6800, L100.0500 ####[facility] [address] [place], [address] GFR/1.73 sq M.predicted among non-blacks MDRD (S/P/Bld) [Vol rate/Area] 107 mL/min/{1.73_m2} Normal >60 [facility] Comment on above: Order Comment: Order Date: 02/06/25Order Info: 0667- - BMPTilt table test Result Comment: mL/m in/1.73m2 CKD-EPI Creatinine Equation (2020) Performed By: #### L 500.2500, L700.6800, L100.0500 ####[facility] [address] [place], [address] Glucose [Mass/Vol] 85 mg/dL Normal 70-99 [facility] Comment on above: Order Comment: Order Date: 02/06/25Order Info: 0667- - BMPTilt table test Performed By: #### L 500.2500, L700.6800, L100.0500 ####[facility] [address] [place], [address] Potassium [Moles/Vol] 3.8 mmol/L Normal 3.3-5.1 [facility] Comment on above: Order Comment: Order Date: 02/06/25Order Info: 0667-1 - BMPTilt table test Performed By: #### L 500.2500, L700.6800, L100.0500 ####[facility] [address] [place], [address] Sodium [Moles/Vol] 136 mmol/L Normal 133-145 [facility] Comment on above: Order Comment: Order Date: 02/06/25Order Info: 0667-1 - BMPTilt table test Performed By: #### L 500.2500, L700.6800, L100.0500 ####[facility] [address] [place], [address] Urea nitrogen [Mass/Vol] 9 mg/dL Normal 4-19 [facility] Comment on above: Order Comment: Order Date: 02/06/25Order Info: 0667-1 - BMPTilt table test Performed By: #### L 500.2500, L700.6800, L100.0500 ####[facility] [address] [place], [address] Beta HCG ( test) Ql Ordered By: Fede Davis on 02-06-2025 Serum Test, Qualitative Negative [facility] CBC-Complete Blood Cnt No Di ffon 02-06-2025 Erythrocyte distribution width (RBC) [Ratio] 13.1 % Normal 11.6-14.6 [facility] Comment on above: Order Comment: Inter face Comments: Tilt Table Test Order Date: 02/06/25 Order Info: [id number] - CBC Comments: Tilt Table Test Performed By: #### L 500.2500, L700.6800, L100.0500 #### [facility] [address] [place], [address] Hematocrit (Bld) [Volume fraction] 43.8 % Normal 37-47 [facility] Comment on above: Order Comment: Inter face Comments: Tilt Table Test Order Date: 02/06/25 Order Info: [id number] - CBC Comments: Tilt Table Test Performed By: #### L 500.2500, L700.6800, L100.0500 #### [facility] [address] [place], [address] Hemoglobin (Bld) [Mass/Vol] 14.4 g/dL Normal 12.0-15.0 [facility] Comment on above: Order Comment: Inter face Comments: Tilt Table Test Order Date: 02/06/25 Order Info: [id number] - CBC Comments: Tilt Table Test Performed By: #### L 500.2500, L700.6800, L100.0500 #### [facility] [address] [place], [address] MCH (RBC) [Entitic mass] 31.2 pg Normal 27.0-32.0 [facility] Comment on above: Order Comment: Inter face Comments: Tilt Table Test Order Date: 02/06/25 Order Info: [id number] - CBC Comments: Tilt Table Test Performed By: #### L 500.2500, L700.6800, L100.0500 #### [facility] [address] [place], [address] MCHC (RBC) [Mass/Vol] 32.9 g/dL Normal 32-36 [facility] Comment on above: Order Comment: Inter face Comments: Tilt Table Test Order Date: 02/06/25 Order Info: [id number] - CBC Comments: Tilt Table Test Performed By: #### L 500.2500, L700.6800, L100.0500 #### [facility] [address] [place], [address] MCV (RBC) [Entitic vol] 94.8 fL Normal 81-99 [facility] Comment on above: Order Comment: Inter face Comments: Tilt Table Test Order Date: 02/06/25 Order Info: [id number] - CBC Comments: Tilt Table Test Performed By: #### L 500.2500, L700.6800, L100.0500 #### [facility] [address] [place], [address] Platelet mean volume (Bld) [Entitic vol] 10.6 fL Normal 6.2-12.0 [facility] Comment on above: Order Comment: Inter face Comments: Tilt Table Test Order Date: 02/06/25 Order Info: [id number] - CBC Comments: Tilt Table Test Performed By: #### L 500.2500, L700.6800, L100.0500 #### [facility] [address] [place], [address] Platelets (Bld) [#/Vol] 228 10*3/uL Normal 150-450 [facility] Comment on above: Order Comment: Inter face Comments: Tilt Table Test Order Date: 02/06/25 Order Info: [id number] - CBC Comments: Tilt Table Test Performed By: #### L 500.2500, L700.6800, L100.0500 #### [facility] [address] [place], [address] RBC (Bld) [#/Vol] 4.62 10*6/uL Normal 4.2-5.4 [facility] Comment on above: Order Comment: Inter face Comments: Tilt Table Test Order Date: 02/06/25 Order Info: [id number] - CBC Comments: Tilt Table Test Performed By: #### L 500.2500, L700.6800, L100.0500 #### [facility] [address] [place], [address] RDW SD 45.6 fl High 35.1-43.9 [facility] Comment on above: Order Comment: Inter face Comments: Tilt Table Test Order Date: 02/06/25 Order Info: [id number] - CBC Comments: Tilt Table Test Performed By: #### L 500.2500, L700.6800, L100.0500 #### [facility] [address] [place], [address] WBC (Bld) [#/Vol] 9.5 10*3/uL Normal 4.4-11.0 [facility] Comment on above: Order Comment: Inter face Comments: Tilt Table Test Order Date: 02/06/25 Order Info: [id number] - CBC Comments: Tilt Table Test Performed By: #### L 500.2500, L700.6800, L100.0500 #### [facility] [address] [place], [address] Carbon dioxide, total [Moles /volume] in Central venous bloodOrdered By: Fede Davis on 02-06-2025 CO2 [Moles/Vol] 21.2 mmol/L 21.0-32.0 [facility] Chloride assayOrdered By: Chiquita Davis on 02-06-2025 Chloride [Moles/Vol] 104 mmol/L 98-108 [facility] Erythrocyte distribution wid th ratioOrdered By: Fede Davis on 02-06-2025 Erythrocyte distribution width (RBC) [Ratio] 13.1 % 11.6-14.6 [facility] Erythrocyte distribution wid th standard deviationOrdered By: Fede Davis on 02-06-2025 Erythrocyte distribution width (RBC) [Entitic vol] 45.6 fL High 35.1-43.9 [facility] GFR/1.73 sq M.predicted gauri g non-blacks MDRD (S/P/Bld) [Vol rate/Area]Ordered By: Fede Davis on 02-06-2025 Estimated GFR (MDRD) Non-Af Amer 107 >60 [facility] Comment on above: mL/min/1.73m2 CKD-EP I Creatinine Equation (2020) Hematocrit Auto (Bld) [Volum e fraction]Ordered By: Fede Davis on 02-06-2025 Hematocrit (Bld) [Volume fraction] 43.8 % 37-47 [facility] Hemoglobin measurementOrdere d By: Fede Davis on 02-06-2025 Hemoglobin (Bld) [Mass/Vol] 14.4 g/dL 12.0-15.0 [facility] MCV (mean corpuscular volume ) determinationOrdered By: Fede Davis on 02-06-2025 MCV (RBC) [Entitic vol] 94.8 fL 81-99 [facility] Mean corpuscular hemoglobin (MCH) determinationOrdered By: Fede Davis on 02-06-2025 MCH (RBC) [Entitic mass] 31.2 pg 27.0-32.0 [facility] Mean corpuscular hemoglobin concentration (MCHC) determinationOrdered By: Fede Davis on 02-06-2025 MCHC (RBC) [Mass/Vol] 32.9 g/dL 32-36 [facility] Mean platelet volume determi nationOrdered By: Fede Davis on 02-06-2025 Platelet mean volume (Bld) [Entitic vol] 10.6 fL 6.2-12.0 [facility] Platelet countOrdered By: Chiquita Davis on 02-06-2025 Platelets (Bld) [#/Vol] 228 10*3/uL 150-450 [facility] Potassium (Unsp spec) [Mass/ Vol]Ordered By: Fede Davis on 02-06-2025 Potassium [Moles/Vol] 3.8 mmol/L 3.3-5.1 [facility] ,Serum,hCG Quali.on 02-06-2025 HCG, SERUM QUAL Negative Normal [facility] Comment on above: Order Comment: Order Date: 02/06/25Order Info: [id number] - PREGSTilt table testFor Tilt Table Test Performed By: #### L 500.2500, L700.6800, L100.0500 ####[facility] [address] [place], [address] RBC Auto (Bld) [#/Vol]Ordere d By: Fede Davis on 02-06-2025 RBC (Bld) [#/Vol] 4.62 10*6/uL 4.2-5.4 [facility] Serum creatinine measurement (mass/volume)Ordered By: Fede Davis on 02-06-2025 Creatinine [Mass/Vol] 0.73 mg/dL 0.70-1.20 [facility] Serum glucose measurement (m ass/volume)Ordered By: Fede Davis on 02-06-2025 Glucose [Mass/Vol] 85 mg/dL 70-99 [facility] Serum or plasma calcium riri urement (mass/volume)Ordered By: Fede Davis on 02-06-2025 Calcium [Mass/Vol] 8.7 mg/dL 7.6-11.0 [facility] Serum or plasma urea nitroge n measurement (mass/volume)Ordered By: Fede Davis on 02-06-2025 Urea nitrogen [Mass/Vol] 9 mg/dL 4-19 [facility] Sodium levelOrdered By: Ruma Davis on 02-06-2025 Sodium [Moles/Vol] 136 mmol/L 133-145 [facility] White blood cell (WBC) count Ordered By: Fede Davis on 02-06-2025 WBC (Bld) [#/Vol] 9.5 10*3/uL 4.4-11.0 [facility] [id number] 02-05-2025 [id number] HNO ID: [id number] Author: WILLIAN TAVARES, RN Service: ? Author Type: Registered Nurse Type: [id number] Filed: 02/05/2025 11:11 Note Text: NEXT TYLENOL AVAILABLE AT 2:30PM TODAY [facility] ANES PRE-OPon 02-05-2025 ANES PRE-OP HNO ID: [id number] Author: SARAVANAN FUNEZ APRN.CRNA Service: Anesthesiology Author Type: Nurse Information Clerk Type: Anesthesia Preprocedure Evaluation Filed: 02/05/2025 09:51 Note Text: ANESTHESIOLOGY DAY OF SURGERY NOTE : 1985 Procedure Information Date/Time: 02/05/2530 Procedure: SPINAL PUNCTURE THERAPEUTIC, DRAIN CSF VIA NEEDLE OR CATH (Pending) - pt is on semaglutide Location: [facility] / IR Surgeons: Janice Arroyo PA-C Estimated body mass index is 41.63 kg/m? as calculated from the following: Height as of 01/15/25: 162.6 cm (5' 4). Weight as of this encounter: 110 kg (242 lb 8.1 oz). Most recent hematocrit and potassium results: Hematocrit 39.1 01/29/2025 Potassium 3.8 10/10/2023 Relevant Problems CARDIO (+) Exhausted vascular access GI (+) Gastroesophageal reflux disease NEURO-PSYCH (+) Epilepsy (HCC) (+) Headaches I - PHYSICAL EVALUATION AIRWAY Patient intubated: No. Tracheostomy tube not present Mallampati: II. TM distance: >3 FB. Neck ROM: full ROM without neurological symptoms. Mouth opening: adequate. Short neck: no. Thick neck: no DENTAL Dental findings: missing tooth/teeth. Additional exam findings: no II - ANESTHESIA PLAN ASA Score: 4 Anesthetic Plan: MAC The patient is not a current smoker. NPO Status: adequate Beta Poncho Administration of chronic beta poncho medication not planned. Monitoring Plan Monitoring plan: standard ASA. Post Procedure Analgesic Plan Postoperative analgesic plan: parenteral or oral opioids and multimodal analgesia. Informed Consent Anesthetic risks, benefits, alternatives, personnel and consent discussed: yes. Patient / Responsible Libertarian agrees to proceed: yes Patient / Surrogate agrees to blood products: blood products not planned DNR status not reviewed with patient and/or family prior to surgery. Significant changes in the patient condition since the History and Physical, not otherwise documented in primary service progress note: no. Potential Anesthesia issues that may suggest increased risk of complications or contraindication to planned procedure: none. BP 133/75 02/05/25829 Pulse 88 02/05/25829 Resp 18 02/05/25829 Temp 36.8 ?C (98.2 ?F) 02/05/25829 SpO2 100 % 02/05/25829 Facility-Administered Medications as of 02/05/2025 Medication Dose Route Frequency [COMPLETED] acetaminophen 1,000 mg tab(s) (TYLENOL) 1,000 mg ORAL ONCE [COMPLETED] promethazine 12.5 mg tab(s) (PHENERGAN) 12.5 mg ORAL ONCE Outpatient Medications as of 02/05/2025 Medication Sig SEMAGLUTIDE SUBCUTANEOUS Inject subcutaneously. omeprazole (PRILOSEC) 20 mg capsule Take 1 capsule by mouth once daily. traMADol (ULTRAM) 50 mg tablet Take 1 tablet by mouth twice daily as needed for pain. cyanocobalamin (VITAMIN B-12) 1,000 mcg tab Take 1 tablet by mouth once daily. lacosamide (VIMPAT) 200 mg Take 1 tablet by mouth twice daily. ARIPiprazole (ABILIFY) 10 mg tablet Take 10 mg by mouth once daily. DULoxetine (CYMBALTA) 60 mg capsule duloxetine 60 mg capsule,delayed release TAKE 1 CAPSULE BY MOUTH TWICE DAILY Calcium Citrate 250 mg calcium tab Take 1 tablet by mouth once daily. lidocaine, PF, (XYLOCAINE) 10 mg/mL (1 %) soln injection 1-10 mL by INTRADERMAL route as needed. For use during PICC/Midline Insertion ONLY. I have interviewed and examined the patient. I have reviewed the medical record and/or the pre-anesthesia evaluation, pertinent labs, and test results. This contains updated information obtained within 48 hours of Surgery/Procedure. SIGNATURE: Farzad Rajput MD PATIENT NAME: Lexis Nguyen DATE: February 05, 2025 TIME: 8:59 AM CSN: [id number] [facility] BRIEF OP NOTon 02-05-2025 BRIEF OP NOT HNO ID: [id number] Author: JANICE ARROYO PA-C Service: ? Author Type: Physician Home Care Attendant Type: Brief Op Note Filed: 02/05/2025 10:33 Note Text: BRIEF OPERATIVE / PROCEDURE NOTE LOG ID: [id number] SURGERY/PROCEDURE DATE: 02/05/2025 INCISION/PROCEDURE START TIME: 10:14 AM INCISION CLOSE/PROCEDURE END TIME: 10:27 AM SURGEON(S)/PROCEDURALI ST(S) AND SCREEN CUTTER AND TRIMMER(S): Surgeons and Role: * Janice Arroyo PA-C - Primary No Additional Staff SURGERY/PROCEDURE(S): Lumbar Puncture ANESTHESIA: Choice - Anesthesia Consult FINDINGS: L2/3. Clear CSF. OP: 18. CP: 15. 2 cc removed ESTIMATED BLOOD LOSS: Minimal SPECIMENS: None COMPLICATIONS: None PRE-OP/PRE-PROCEDURE DIAGNOSIS: IIH POST-OP/POST-PROCEDURE DIAGNOSIS: Same as Preop SIGNATURE: Janice Arroyo PA-C PATIENT NAME: Lexis Nguyen DATE: February 05, 2025 TIME: 10:32 AM [facility] IR LUMBAR PUNCTURE DIAGNOSTI Con 02-05-2025 IR LUMBAR PUNCTURE DIAGNOSTIC * * *Final Report* * * DATE OF EXAM: Feb 05 2025 10:27AM [facility] [id number] - IR LUMBAR PUNCTURE DIAGNOSTIC / PROCEDURE REASON: IIH * * * * Physician Interpretation * * * * RESULT: PROCEDURE: Therapeutic Lumbar Puncture Under Fluoroscopic Guidance HISTORY: The patient is a 39 years year old Female who presented with IIH. Consent: The risks, benefits, treatment options, potential complications, equipment, and personnel to be involved were discussed (including the risks of radiation exposure, contrast and anesthesia administration) with the patient and all questions were answered and consent was obtained prior to the procedure. General: A) Medication Reconciliation: The patient's medications and allergies were reviewed in the electronic medical record and reconciled to the proposed procedure/treatment. B) Pre-Procedure Medications: Medication #1: None C) Positioning: The patient was placed Prone on the fluoroscopy table. D) The Lumbar dorsal soft tissues. were then sterile prepped and draped. E) Time Out: A time out was performed immediately prior to procedure start with the nursing, anesthesia and interventional team, correctly identifying the name, medical record number, procedure, anatomy (including marking of site and side), patient position, procedure consent form, relevant diagnostic and radiology test results, antibiotic administration, safety precautions, and procedure-specific equipment needs. Timeout Affirmation (if attending not present): PA, RN, and RT present. F) Anesthesia Type: Choice Sedation. Local Anesthesia: 5 mL 1% Lidocaine G) Anesthesia Was Administered For A Total Of None. H) Patient Monitoring: Monitored by Anesthesia Team TECHNIQUE/RESULT: A) Access Site: 15 cm 20 gauge spinal needle from a left paramedian approach at the L2-L3 level. B) Counting reference: Lumbosacral junction. For the purposes of this report, L4-5 is considered the level of the iliac crest. C) Procedure Details: Using sterile procedure, local anesthesia was introduced to the skin and subcutaneous tissues as outlined above. Therapeutic LP Details: Under fluoroscopic guidance, the needle was carefully advanced into the lumbar subarachnoid space resulting in free flow of CSF. Therapeutic Volume: 2 ml of CSF was withdrawn in a sterile fashion from the subarachnoid space and discarded per ordering team request Opening pressure was recorded at 18 cm H2O Closing pressure was recorded at 15 cm H2O CSF Color: Clear D) Estimated Blood Loss: 0 mL E) Type of Removed Specimens: CSF F) Number of specimen vials: 1 Fluoroscopic Radiation Summary: Fluoroscopic guidance was performed in conjunction with the mathematical technician. Plane A, Air Kerma: 9.7 mGy Dose Area Product (DAP): Fluoro time: 0:18 min: sec Post-Procedure: Conclusion: The patient was transferred to the transferred to the PACU in stable condition and observed for approximately 60 minutes. Immediate Complications: None. Delayed Complications (will be reported as an addendum to the original report): None apparent at this time Timeout Time and Procedure Start Time: 10:14 Procedure End Time and Sign Out Time: 10:27 IMPRESSION: TECHNICALLY SUCCESSFUL THERAPEUTIC LUMBAR PUNCTURE. The procedure was performed by: Janice Arroyo PA-C Transcribed Using Voice Recognition Transcribe Date/Time: Feb 05 2025 10:59A Dictated by: JANICE ARROYO PA-C This examination was interpreted and the report reviewed and electronically signed by: JANICE ARROYO PA-C on Feb 05 2025 11:04AM EST [id number] [facility] CBC W Auto Differential pane l (Bld)on 01-29-2025 Basophils (Bld) [#/Vol] 0.03 10*3/uL Normal <0.11 [facility] Comment on above: Order Comment: Speci men Type: BLOOD SPECIMEN Ordering Facility: [facility] Address: [address] [place] [address] Performed By: #### 5 7021-8 #### [facility] CLIA [id number] [address] [place] [address] [place] Basophils/100 WBC (Bld) 0.4 % Normal [facility] Comment on above: Order Comment: Speci men Type: BLOOD SPECIMEN Ordering Facility: [facility] Address: [address] [place] [address] Performed By: #### 5 7021-8 #### [facility] CLIA [id number] [address] [place] [address] [place] [facility] Differential cell count method Nom (Bld) Auto Normal [facility] Comment on above: Order Comment: Speci men Type: BLOOD SPECIMEN Ordering Facility: [facility] Address: [address] [place] [address] Performed By: #### 5 7021-8 #### [facility] CLIA [id number] [address] [place] [address] [place] Eosinophils (Bld) [#/Vol] 0.08 10*3/uL Normal <0.46 [facility] Comment on above: Order Comment: Speci men Type: BLOOD SPECIMEN Ordering Facility: [facility] Address: [address] [place] [address] Performed By: #### 5 7021-8 #### [facility] CLIA [id number] [address] [place] [address] [place] Eosinophils/100 WBC (Bld) 1.1 % Normal [facility] Comment on above: Order Comment: Speci men Type: BLOOD SPECIMEN Ordering Facility: [facility] Address: [address] [place] [address] Performed By: #### 5 7021-8 #### [facility] CLIA [id number] [address] [place] [address] [place] Erythrocyte distribution width (RBC) [Ratio] 12.9 % Normal 11.5-15.0 [facility] Comment on above: Order Comment: Speci men Type: BLOOD SPECIMEN Ordering Facility: [facility] Address: [address] [place] [address] Performed By: #### 5 7021-8 #### [facility] CLIA [id number] [address] [place], [place] [address] [place] [facility] [place] Hematocrit (Bld) [Volume fraction] 39.1 % Normal 36.0-46.0 [facility] Comment on above: Order Comment: Speci men Type: BLOOD SPECIMEN Ordering Facility: [facility] Address: [address] [place] [address] Performed By: #### 5 7021-8 #### [facility] CLIA [id number] [address] [place], [place] [address] [place] Hemoglobin (Bld) [Mass/Vol] 13.1 g/dL Normal 11.5-15.5 [facility] Comment on above: Order Comment: Speci men Type: BLOOD SPECIMEN Ordering Facility: [facility] Address: [address] [place] [address] Performed By: #### 5 7021-8 #### [facility] CLIA [id number] [address] [place], [place] [address] [place] Immature granulocytes (Bld) [#/Vol] 10*3/uL Normal <0.10 [facility] Comment on above: Order Comment: Speci men Type: BLOOD SPECIMEN Ordering Facility: [facility] Address: [address] [place] [address] Performed By: #### 5 7021-8 #### [facility] CLIA [id number] [address] [place], [place] [address] [place] Immature granulocytes/100 WBC (Bld) 0.1 % Normal [facility] Comment on above: Order Comment: Speci men Type: BLOOD SPECIMEN Ordering Facility: [facility] Address: [address] [place] [address] Performed By: #### 5 7021-8 #### [facility] CLIA [id number] [address] [place] [address] [place] Lymphocytes (Bld) [#/Vol] 1.89 10*3/uL Normal 1.00-4.00 [facility] Comment on above: Order Comment: Speci men Type: BLOOD SPECIMEN Ordering Facility: [facility] Address: [address] [place] [address] Performed By: #### 5 7021-8 #### [facility] CLIA [id number] [address] [place] [address] [place] Lymphocytes/100 WBC (Bld) 25.1 % Normal [facility] Comment on above: Order Comment: Speci men Type: BLOOD SPECIMEN Ordering Facility: [facility] Address: [address] [place] [address] Performed By: #### 5 7021-8 #### [facility] CLIA [id number] [address] [place], [place] [address] [place] MCH (RBC) [Entitic mass] 31.8 pg Normal 26.0-34.0 [facility] Comment on above: Order Comment: Speci men Type: BLOOD SPECIMEN Ordering Facility: [facility] Address: [address] [place] [address] Performed By: #### 5 7021-8 #### [facility] CLIA [id number] [address] [place], [place] [address] [place] MCHC (RBC) [Mass/Vol] 33.5 g/dL Normal 30.5-36.0 [facility] Comment on above: Order Comment: Speci men Type: BLOOD SPECIMEN Ordering Facility: [facility] Address: [address] [place] [address] Performed By: #### 5 7021-8 #### [facility] CLIA [id number] [address] [place] [address] [place] MCV (RBC) [Entitic vol] 94.9 fL Normal 80.0-100.0 [facility] Comment on above: Order Comment: Speci men Type: BLOOD SPECIMEN Ordering Facility: [facility] Address: [address] [place] [address] Performed By: #### 5 7021-8 #### [facility] CLIA [id number] [address] [place] [address] [place] Monocytes (Bld) [#/Vol] 0.50 10*3/uL Normal <0.87 [facility] Comment on above: Order Comment: Speci men Type: BLOOD SPECIMEN Ordering Facility: [facility] Address: [address] [place] [address] Performed By: #### 5 7021-8 #### [facility] CLIA [id number] [address] [place] [address] [place] Monocytes/100 WBC (Bld) 6.6 % Normal [facility] Comment on above: Order Comment: Speci men Type: BLOOD SPECIMEN Ordering Facility: [facility] Address: [address] [place] [address] Performed By: #### 5 7021-8 #### [facility] CLIA [id number] [address] [place] [address] [place] Neutrophils (Bld) [#/Vol] 5.01 10*3/uL Normal 1.45-7.50 [facility] Comment on above: Order Comment: Speci men Type: BLOOD SPECIMEN Ordering Facility: [facility] Address: [address] [place] [address] Performed By: #### 5 7021-8 #### [facility] CLIA [id number] [address] [place] [address] [place] Neutrophils/100 WBC (Bld) 66.7 % Normal [facility] Comment on above: Order Comment: Speci men Type: BLOOD SPECIMEN Ordering Facility: [facility] Address: [address] [place] [address] Performed By: #### 5 7021-8 #### [facility] CLIA [id number] [address] Platelet mean volume (Bld) [Entitic vol] 10.2 fL Normal 9.0-12.7 [facility] Comment on above: Order Comment: Speci men Type: BLOOD SPECIMEN Ordering Facility: [facility] Address: [address] [place] [address] Performed By: #### 5 7021-8 #### [facility] CLIA [id number] [address] [place] [address] [place] Platelets (Bld) [#/Vol] 227 10*3/uL Normal 150-400 [facility] Comment on above: Order Comment: Speci men Type: BLOOD SPECIMEN Ordering Facility: [facility] Address: [address] [place] [address] Performed By: #### 5 7021-8 #### [facility] CLIA [id number] [address] [place] [address] [place] RBC (Bld) [#/Vol] 4.12 10*6/uL Normal 3.90-5.20 [facility] Comment on above: Order Comment: Speci men Type: BLOOD SPECIMEN Ordering Facility: [facility] Address: [address] [place] [address] Performed By: #### 5 7021-8 #### [facility] CLIA [id number] [address] [place] [address] [place] WBC (Bld) [#/Vol] 7.52 10*3/uL Normal 3.70-11.00 [facility] Comment on above: Order Comment: Speci men Type: BLOOD SPECIMEN Ordering Facility: [facility] Address: [address] [place] [address] Performed By: #### 5 7021-8 #### [facility] CLIA [id number] [address] [place] [address] [place] PT panel Coag (PPP)on 2024 INR Coag (PPP) [Relative time] 1.0 {INR} Normal 0.9-1.3 [facility] Comment on above: Order Comment: Azucena weber Type: BLOOD SPECIMEN Ordering Facility: [facility] Address: [address] [place], [place] [address] Result Comment: Brooke min K Antagonist (VKA) Therapeutic Range: INR 2 to 3 (Target INR of 2.5) Note: For patients treated with VKA drugs, such as warfarin, the [employer] 2012 Guideline recommends a therapeutic INR range of 2 to 3 (target INR of 2.5). This recommendation includes high-risk patients with antiphospholipid syndrome with previous arterial or venous thromboembolism, current-generation mechanical or bioprosthetic aortic heart valve replacement. Note: Patients with mechanical aortic valve replacement and additional risk factors for thromboembolic events (atrial fibrillation, previous thromboembolism, LV dysfunction, hypercoagulable conditions) or an older generation mechanical AVR (i.e., ball in-Cage) or any mechanical MVR should have a INR therapeutic range of 2.5 to 3.5 (target INR of 3). Guyatt GH, et al. Chest 2012, 141:7S-47S Cuate RA, et al. [facility] 2017, 70: 252-289 Performed By: #### 3 4528-0 #### [facility] CLIA [id number] [address] [place] [address] [place] PT Coag (PPP) [Time] 10.8 s Normal 9.7-13.0 [facility] Comment on above: Order Comment: Azucena weber Type: BLOOD SPECIMEN Ordering Facility: [facility] Address: [address] [place] [address] Performed By: #### 3 4528-0 #### [facility] CLIA [id number] [address] [place], [place] [id number] [place] HISTORY PHYSICALon HISTORY PHYSICAL HNO ID: [id number] Author: LEXIS WEST APRN.SENIOR SOUS CHEF, DNP Service: ? Author Type: Nurse Practitioner Type: H&P Filed: 01/15/2025 07:22 Note Text: [facility] HISTORY AND PHYSICAL EXAMINATION SERVICE DATE: 01/15/2025 SERVICE TIME: 6:53 AM PRIMARY CARE PHYSICIAN: Fede Davis MD Assessment Patient has the following medical conditions which may affect david-operative course: IIH (idiopathic intracranial hypertension) Assessment: is scheduled for SPINAL PUNCTURE THERAPEUTIC, DRAIN CSF VIA NEEDLE OR CATH - Pending with Janice Arroyo PA-C on 02/05/2025 at [facility]. Difficult intravenous access Assessment: Has required a Midline in past and needs vein finder/US machine used. Gastroesophageal reflux disease Assessment: managed on PPI S/P gastric bypass Assessment: 2013, had >100lb weightloss Medical marijuana use Assessment: Vapes THC for Epilepsy Anxiety Assessment: managed on medications. Obesity, Class III, BMI 40-49.9 (morbid obesity) (HCC) Assessment: stated BMI today in [facility] was 41.20. on Semaglutide SQ for weightloss. Epilepsy (HCC) Assessment: Follows with Neurologist. Is managed on lacosamide (Vimpat) and medical marijuana. Last seizure was February 2023. Higgins Activity Status Index: METS: Walk indoors, such as around the house (1.75 METs) Do light work around the house, such as dusting or washing dishes (2.70 METs) Take care of self; that is eating, dressing, bathing, using the toilet (2.75 METs) Walk a block or two on level ground (2.75 METs) Do moderate work around the house, such as vacuuming, sweeping floors, or carrying in groceries (3.50 METs) Do yardwork, such as raking leaves, weeding, or pushing a power mower (4.50 METs) Have sexual relations (5.25 METs) Climb a flight of stairs or walk up a hill (5.50 METs) Do heavy work around the house, such as scrubbing floors, lifting or moving heavy furniture (8.00 METs) DASI Score: 36.7 Dependency List (Category): independent. Clinical Frailty Scale: 3. Well, with treated comorbid disease STOP-Bang Score: BMI greater than 35 kg/m2 Denies snoring loudly Denies feeling tired, fatigued, or sleepy during the daytime Has not been observed to stop breathing or choking/gasping during sleep Denies having high blood pressure Patient 50 years old or younger Non-male patient STOP-Bang Score: 1 [id number] Score: Age: <65 Sex: female CHF history: No Hypertension history: No Stroke/TIA/thromboembo lism history: No Vascular disease history: No Diabetes history: No [id number] Score: 1 ANESTHESIA FINDINGS: Intubation History: No history of difficult intubation. No abnormal airway history Significant Anesthesia Considerations: potential difficult IV/vein access Airway History: No history of difficult airway No abnormal airway history Pertinent negatives noted: no difficult airway documented by an anesthesiologist during past surgical procedure, no family history of airway difficulties, no history of head/neck surgery that distorted airway, no history of head/neck trauma that distorted airway, no history of head/neck radiation that distorted airway, no acromegaly, no congenital anomalies affecting airway management and no acquired pathologic states affecting airway I - PHYSICAL EVALUATION AIRWAY Patient intubated: No. Tracheostomy tube not present Mallampati: II. TM distance: >3 FB. Neck ROM: full ROM without neurological symptoms. Mouth opening: adequate. Short neck: no. Thick neck: no Rangel present: no Lip Bite Test: II Microretrognathia/Micr onagthia/Recessed Chin: No DENTAL Dental findings: missing tooth/teeth. II - ANESTHESIA PLAN Anesthetic plan additional comments: *PACC/TCI - anesthesia choice. Beta Poncho Monitoring Plan Post Procedure Analgesic Plan Prepared for Surgery: optimally prepared for surgery. CONSULTS: Patient does not require consults for optimization at this time Planned Anesthetic: anesthesia choice The Following Tests/Procedures Have Been Initiated: No orders of the defined types were placed in this encounter. This is a virtual visit using archify video visit. It required patient-provider interaction for the medical decision making as documented below. REASON FOR VISIT: Lexis Nguyen is a 39 year old female who is scheduled for Procedure(s) with comments: SPINAL PUNCTURE THERAPEUTIC, DRAIN CSF VIA NEEDLE OR CATH (Pending) - pt is on semaglutide at the request of Dr. Janice Arroyo for consultation. My final recommendation will be communicated back to the requesting physician by way of shared medical record or letter. Subjective The patient has the following: COVID-19 Immunization Status Completed or No Longer Recommended Covid-19 Vaccine (Series Information) Completed 09/09/2024 Imm Admin: COVID-19 vaccine, age 12+ yr ([employer] [facility]) (more content not included)... Normal [facility] Abdomen/Pelvis WITH Contrast on 01-04-2025 Abdomen/Pelvis WITH Contrast [facility] Imaging Services [address] [place] [id number] Abdomen/Pelvis WITH Contrast MR#: [id number] Acct: [id number] Name: LEXIS NGUYEN Rep #: [id number] : 1985 F 39 From: Clarke Chance MD PCP: Dr. Fede Davis MD Status: REG CLI Study: Abdomen/Pelvis WITH Contrast Date of Exam: Exam# [id number] Ordering Dr: Julian Leahy EXAM: CT Abdomen and Pelvis With Intravenous Contrast CLINICAL INDICATION: TECHNIQUE: Axial computed tomography images of the abdomen and pelvis with intravenous contrast. This CT exam was performed using one or more of the following dose reduction techniques: automated exposure control, adjustment of the mA and/or kV according to patient size, and/or use of iterative reconstruction technique. COMPARISON: No relevant prior studies available. FINDINGS: LUNG BASES: Unremarkable. No mass. No consolidation. ABDOMEN: LIVER: Hepatomegaly with fatty infiltration. GALLBLADDER AND BILE DUCTS: Gallbladder is surgically absent. No ductal dilation. PANCREAS: Unremarkable. No mass. No ductal dilation. SPLEEN: Unremarkable. No splenomegaly. ADRENALS: Unremarkable. No mass. KIDNEYS AND URETERS: Unremarkable. No stones within either kidney. No hydronephrosis. STOMACH AND BOWEL: Evidence of prior gastric surgery. Fecal retention in the colon consistent with constipation. No obstruction. No mucosal thickening. PELVIS: APPENDIX: No findings to suggest acute appendicitis. BLADDER: Bladder wall thickening which may be due to the decompressed state of the bladder or due to cystitis. REPRODUCTIVE: Unremarkable as visualized. ABDOMEN and PELVIS: INTRAPERITONEAL SPACE: See below. BONES/JOINTS: No acute fracture. No dislocation. SOFT TISSUES: Metallic foreign bodies with artifacts in the right hemipelvis. VASCULATURE: Unremarkable. No abdominal aortic aneurysm. LYMPH NODES: Unremarkable. No enlarged lymph nodes. CT/Abdomen/Pelvis WITH Contrast IMPRESSION: 1. Bladder wall thickening which may be due to the decompressed state of the bladder or due to cystitis. 2. Hepatomegaly with fatty infiltration. 3. Fecal retention in the colon consistent with constipation. 4. No obstructive uropathy. 5. Metallic foreign bodies with artifacts in the right hemipelvis. Clinical correlation is recommended. Reading Location: [facility] CC: Dr. Fede Davis MD; TIP Geronimo Heel Nailing Machine Operator: Signed Normal [facility] Gastroenterology Visit Repor ton 01-04-2025 Gastroenterology Visit Report [facility] [address] [place] [address] OFFICE VISIT Date of Service: 01/04/25 MR#: [id number] Acct: [id number] Name: LEXIS NGUYEN Rep #: [id number] : 1985 Provider: TIP Geronimo Age/Sex: 39/F Location[place] [facility] Status: Signed Intake Vital Signs 09/12/24 14:43 12/19/24 12:39 Height 5 ft 4 in 5 ft 4 in Intake Visit Reasons: Test Result Chief Complaint: f/u Thermostat Repairer Required: No Accompanied by: Allergies nortriptyline Allergy (Intermediate, Verified 12/19/24 12:38) TREMORS pepper (genus Capsicum) Allergy (Mild, Verified 12/19/24 12:38) Rash Penicillins Allergy (Verified 12/19/24 12:38) Rash gabapentin Adverse Reaction (Verified 12/19/24 12:38) TREMORS NSAIDS (Non-Steroidal Anti-Inflamma Adverse Reaction (Verified 12/19/24 12:38) GASTRIC BYPASS Medications ???Medication ???Instructions ???Recorded ???Confirmed ???Type aripiprazole 5 mg tablet 10 mg PO QHS 07/05/22 12/15/24 His tory lorazepam 0.5 mg tablet 0.5 mg PO DAILY PRN PRN Anxiety 12/15/24 History tramadol 50 mg tablet 50 mg PO PRN PRN Pain 07/05/22 History dicyclomine 10 mg capsule 20 mg (2 x 10 mg) PO TID PRN 10/22 /24 01/24/25 Rx abdominal pain #20 CAPSULES WEYGOVY 20 u subcut RODRÍGUEZ 12/15/24 12/15/24 H istory duloxetine 60 mg capsule,delayed 60 mg PO BID 12/15/24 12/19/24 His tory release lacosamide 200 mg tablet 200 mg PO BID 12/15/24 12/19/24 Hi story metformin 500 mg tablet 500 mg PO QDAY 01/04/25 01/04/25 H istory omeprazole 40 mg capsule,delayed 40 mg PO BID #90 caps 01/04/25 Rx release sucralfate 1 gram tablet 1 g PO BID 2 weeks #28 tabs 01/04/25 Rx Nurse's Note: OV 01.04.25 Pt here for f/u and reports she is feeling no different from her last appt. Pt reports nausea, vomiting, abdominal pain, gas, bloating and trouble swallowing. Continues dicyclomine, and omeprazole daily. PFSH Medical History Wears glasses Wears partial dentures Marijuana use Arthritis Back pain Migraine headache Intracranial hypertension Gastric reflux Non-smoker History of pain when walking Hypertension History of broken collarbone Seizure Ovarian cyst Depression Anxiety Surgical History Hx of colonoscopy Hx of tonsillectomy Hx of gastric bypass S/P [employer] shunt History of appendectomy History of cholecystectomy H/O: hysterectomy Social History Smoking Status: Never smoker HPI HPI Chief Complaint: f/u Details: LEXIS NGUYEN, is a 39 F who presents to the office today for f/u. I established 10.17.25 with complaints of chronic constipation and heartburn. S/p gastric bypass in 2014. Started semaglutide 2 months with increase in constipation. CT abd/pelvis 09.12.24; Marked diffuse fecal retention. No definite acute abnormality. EGD 12.19.24; - Normal esophagus. - Krystal-en-Y gastrojejunostomy with gastrojejunal anastomosis characterized by congestion and edema. Biopsied. - Normal examined jejunum. Colonoscopy 12.19.24 - Preparation of the colon was poor. - One 7 mm polyp in the sigmoid colon, removed with a hot snare. Resected and retrieved. Barium swallow 01.01.25; Status post gastric bypass surgery with findings suggestive of dilatation of the small bowel loops distal to the anastomosis. Early obstruction should be ruled out. Clinical correlation recommended. Gastroesophageal reflux. OV 01.04.25 Pt continues to have issues with upper abd pain. It was better for awhile until she got the EGD and the barium swallow. She is having a bm daily and does not feel constipated. She is worried about the duodenum to jejunum limb of her bypass as Dr. Hunt told her it was shorter than it should be. SHe underwent barium esophagram which showed possible early obstruction and CT abd/pelvis ordered stat. CT abd/pelvis 01.04.25 1. Bladder wall thickening which may be due to the decompressed state of the bladder or due to cystitis. 2. Hepatomegaly with fatty infiltration. 3. Fecal retention in the colon consistent with constipation. 4. No obstructive uropathy. 5. Metallic foreign bodies with artifacts in the right hemipelvis. Clinical correlation is recommended ROS Const Constitutional: Positive for fatigue and headache(s); No fever(s) or weight change ENT ENT: Positive for headache(s) and difficulty swallowing Gastro GI: Positive for abdominal pain, bloating, heartburn, difficulty swallowing, excessive flatus, nausea/dyspepsia and vomiting; No belching, change in bowel habits, change in stool character, coffee ground emesis, consti (more content not included)... Normal [facility] Upper GI w/BA Swallowon 12-23 Upper GI w/BA Swallow [facility] Imaging Services [address] [place] [address] Upper GI w/BA Swallow MR#: [id number] Acct: [id number] Name: LEXIS NGUYEN Rep #: [id number] : 1985 F 39 From: Lenny altamirano MD PCP: Dr. Fede Davis MD Status: REG CLI Study: Upper GI w/BA Swallow Date of Exam: 01/01/25 Exam# [id number] Ordering Dr: Wilton Hunt DO EXAM: UPPER GI W/BA SWALLOW CLINICAL HISTORY: History of prior gastric bypass surgery. Gastroesophageal reflux. COMPARISON: None. TECHNIQUE: The patient ingested barium. Multiple images of the esophagus and remainder of the stomach was obtained. FINDINGS: The patient is status post gastric bypass surgery with small gastric remnant. There is evidence of gastroesophageal reflux. There is dilatation of the efferent loop distal to the gastric remnant. Early obstruction should be ruled out. RAD/Upper GI w/BA Swallow IMPRESSION: Status post gastric bypass surgery with findings suggestive of dilatation of the small bowel loops distal to the anastomosis. Early obstruction should be ruled out. Clinical correlation recommended. Gastroesophageal reflux. Reading Location: [id number] CC: Dr. Fede Davis MD; Wilton Hunt DO Heel Nailing Machine Operator: Signed Normal [facility] ANES POSTPROC EVALon 025 ANES POSTPROC EVAL HNO ID: [id number] Author: CRISTIN FERNANDO MD Service: ? Author Type: Physician Type: Anesthesia Postprocedure Evaluation Filed: 12/25/2024 13:14 Note Text: POST ANESTHESIA EVALUATION NOTE : 1985 Procedure Summary Date: 12/25/24 Room / Location: [facility] / IR Anesthesia Start: 939 Anesthesia Stop: 1030 Procedure: SPINAL PUNCTURE THERAPEUTIC, DRAIN CSF VIA NEEDLE OR CATH (Pending) Diagnosis: IIH (idiopathic intracranial hypertension) (IIH (idiopathic intracranial hypertension) [G93.2]) Surgeons: Janice Arroyo PA-C Responsible Provider: Cristin Fernando MD Anesthesia Type: MAC ASA Status: 3 Anesthesia Type: MAC Last Vitals Vitals Value Taken Time BP 129/86 12/25/24 1145 Temp 36.5 ?C (97.7 ?F) 12/25/24 1145 Pulse 76 12/25/24 1145 Resp 16 12/25/24 1145 SpO2 100 % 12/25/24 1145 Post Anesthesia Patient Status Patient Evaluation: bedside. Anticipated Disposition: phase 2 then home. Neurological Status: aware and responsive. Pulmonary Status: breathing comfortably on supplemental oxygen Airway Control: returned to baseline unsupported. Cardiovascular Status: stable. Pain Management: clinically adequate - multimodal analgesia pain management approach Postoperative Hydration: acceptable. Intraoperative Events: no significant anesthesia events Post Operative Nausea/Vomiting Status: no significant post operative nausea or vomiting Recommendation: continue current plan of care and further care per PACU/ICU/floor team. Anesthesia Observations No Documentation SIGNATURE: Cristin Fernando MD PATIENT NAME: Lexis Nguyen DATE: December 25, 2024 TIME: 1:14 PM CSN: [id number] [facility] ANES PRE-OPon 12-25-2024 ANES PRE-OP HNO ID: [id number] Author: CRISTIN FERNANDO MD Service: ? Author Type: Physician Type: Anesthesia Preprocedure Evaluation Filed: 12/25/2024 09:17 Note Text: ANESTHESIOLOGY DAY OF SURGERY NOTE : 1985 Procedure Information Date/Time: 12/25/24 0930 Procedure: SPINAL PUNCTURE THERAPEUTIC, DRAIN CSF VIA NEEDLE OR CATH (Pending) Location: [facility] / IR Surgeons: Janice Arroyo PA-C Estimated body mass index is 42.31 kg/m? as calculated from the following: Height as of 12/07/24: 162.6 cm (5' 4). Weight as of this encounter: 111.8 kg (246 lb 7.6 oz). Most recent hematocrit and potassium results: Hematocrit 38.9 08/15/2024 Potassium 3.8 10/10/2023 Relevant Problems ANESTHESIA (+) JACK (obstructive sleep apnea) CARDIO (+) Exhausted vascular access GI (+) Gastroesophageal reflux disease NEURO-PSYCH (+) Epilepsy (HCC) (+) Headaches PULMONARY (+) JACK (obstructive sleep apnea) Epilepsy (HCC) Assessment: Following with Dr. Thompson with neurocare at OSH, . Last seizure February 2024 Well controlled on rx and medical marijuana. Difficult intravenous access Assessment: Per patient, requires US for PIV. Has had to have midline placed in past farzad to unable to obtain IV Medical marijuana use Assessment: Daily vape user. Uses for pain and seizures Gastroesophageal reflux disease Assessment: Controlled on medication Morbid obesity (HCC) Assessment: Body mass index is 42.05 kg/m?. On Semaglutide, advised to not take at least 7 days prior to procedure S/P gastric bypass Assessment: 2014 Major depression Anxiety Assessment: Stable on medication I - PHYSICAL EVALUATION AIRWAY Patient intubated: No. Tracheostomy tube not present Mallampati: II. TM distance: >3 FB. Neck ROM: full ROM without neurological symptoms. Mouth opening: adequate. Short neck: no. Thick neck: no Rangel present: no Microretrognathia/Micr onagthia/Recessed Chin: No DENTAL Dental findings: teeth intact. Additional exam findings: no II - ANESTHESIA PLAN ASA Score: 3 Anesthetic Plan: MAC The patient is not a current smoker. NPO Status: adequate Beta Poncho Administration of chronic beta poncho medication not planned. Monitoring Plan Monitoring plan: standard ASA. Post Procedure Analgesic Plan Postoperative analgesic plan: parenteral or oral opioids and multimodal analgesia. Informed Consent Anesthetic risks, benefits, alternatives, personnel and consent discussed: yes. Patient / Responsible Libertarian agrees to proceed: yes Patient / Surrogate agrees to blood products: Yes DNR status reviewed with patient and/or family prior to surgery. patient elects to suspend DNR status in the perioperative setting (Full Code). Significant changes in the patient condition since the History and Physical, not otherwise documented in primary service progress note: no. Potential Anesthesia issues that may suggest increased risk of complications or contraindication to planned procedure: none. Discussed the possibility of lip / dental damage: yes Vitals Value Taken Time BP 140/81 12/25/24826 Pulse 94 12/25/24826 Resp 18 12/25/24826 Temp 36.8 ?C (98.2 ?F) 12/25/24826 SpO2 100 % 12/25/24826 Facility-Administered Medications as of 12/25/2024 Medication Dose Route Frequency [COMPLETED] acetaminophen 1,000 mg tab(s) (TYLENOL) 1,000 mg ORAL ONCE [COMPLETED] promethazine 12.5 mg tab(s) (PHENERGAN) 12.5 mg ORAL NOW Outpatient Medications as of 12/25/2024 Medication Sig omeprazole (PRILOSEC) 20 mg capsule Take 1 capsule by mouth once daily. traMADol (ULTRAM) 50 mg tablet Take 1 tablet by mouth twice daily as needed for pain. lacosamide (VIMPAT) 200 mg Take 1 tablet by mouth twice daily. ARIPiprazole (ABILIFY) 10 mg tablet Take 10 mg by mouth once daily. DULoxetine (CYMBALTA) 60 mg capsule duloxetine 60 mg capsule,delayed release TAKE 1 CAPSULE BY MOUTH TWICE DAILY SEMAGLUTIDE SUBCUTANEOUS Inject subcutaneously. lidocaine, PF, (XYLOCAINE) 10 mg/mL (1 %) soln injection 1-10 mL by INTRADERMAL route as needed. For use during PICC/Midline Insertion ONLY. cyanocobalamin (VITAMIN B-12) 1,000 mcg tab Take 1 tablet by mouth once daily. Calcium Citrate 250 mg calcium tab Take 1 tablet by mouth once daily. I have interviewed and examined the patient. I have reviewed the medical record and/or the pre-anesthesia evaluation, pertinent labs, and test results. This contains updated information obtained within 48 hours of Surgery/Procedure. SIGNATURE: Cristin Fernando MD PATIENT NAME: Lexis Nguyen DATE: December 25, 2024 TIME: 9:16 AM CSN: [id number] [facility] BRIEF OP NOTon 12-25-2024 BRIEF OP NOT HNO ID: [id number] Author: JANICE ARROYO PA-C Service: ? Author Type: Physician Home Care Attendant Type: Brief Op Note Filed: 12/25/2024 10:26 Note Text: BRIEF OPERATIVE / PROCEDURE NOTE LOG ID: [id number] SURGERY/PROCEDURE DATE: 12/25/2024 INCISION/PROCEDURE START TIME: 10:00 AM INCISION CLOSE/PROCEDURE END TIME: 10:17 AM SURGEON(S)/PROCEDURALI ST(S) AND SCREEN CUTTER AND TRIMMER(S): Surgeons and Role: * Janice Arroyo PA-C - Primary No Additional Staff SURGERY/PROCEDURE(S): Therapeutic lumbar puncture ANESTHESIA: Choice - Anesthesia Consult FINDINGS: L2/3. Op: 23. CP: 15. Clear CSF. 5cc removed ESTIMATED BLOOD LOSS: Minimal SPECIMENS: None - therapeutic drain only COMPLICATIONS: None PRE-OP/PRE-PROCEDURE DIAGNOSIS: IIH POST-OP/POST-PROCEDURE DIAGNOSIS: Same as Preop SIGNATURE: Janice Arroyo PA-C PATIENT NAME: Lexis Nguyen DATE: December 25, 2024 TIME: 10:25 AM [facility] IR LP FOR DRAINAGE (PRESSURE )on 12-25-2024 IR LP FOR DRAINAGE (PRESSURE) * * *Final Report* * * DATE OF EXAM: Dec 25 2024 10:18AM [facility] 0853 - IR LP FOR DRAINAGE (PRESSURE) / PROCEDURE REASON: IIH * * * * Physician Interpretation * * * * RESULT: PROCEDURE: Therapeutic Lumbar Puncture Under Fluoroscopic Guidance HISTORY: The patient is a 39 years year old Female who presented with IIH. Consent: The risks, benefits, treatment options, potential complications, equipment, and personnel to be involved were discussed (including the risks of radiation exposure, contrast and anesthesia administration) with the patient and all questions were answered and consent was verified prior to the procedure. General: A) Medication Reconciliation: The patient's medications and allergies were reviewed in the electronic medical record and reconciled to the proposed procedure/treatment. B) Pre-Procedure Medications: Medication #1: None C) Positioning: The patient was placed Prone on the fluoroscopy table. D) The Lumbar dorsal soft tissues. were then sterile prepped and draped. E) Time Out: A time out was performed immediately prior to procedure start with the nursing, anesthesia and interventional team, correctly identifying the name, medical record number, procedure, anatomy (including marking of site and side), patient position, procedure consent form, relevant diagnostic and radiology test results, antibiotic administration, safety precautions, and procedure-specific equipment needs. Timeout Affirmation (if attending not present): PA, RN, and RT present. F) Anesthesia Type: administration of local anesthesia and MAC - managed by anesthesia. Local Anesthesia: 5 mL 1% Lidocaine G) Anesthesia Was Administered For A Total Of None. H) Patient Monitoring: Anesthesia Provider TECHNIQUE/RESULT: A) Access Site: 15 cm20 gauge spinal needle from a left paramedian approach at the L2-L3 level. B) Counting reference: Lumbosacral junction. For the purposes of this report, L4-5 is considered the level of the iliac crest. C) Procedure Details: Using sterile procedure, local anesthesia was introduced to the skin and subcutaneous tissues as outlined above. Therapeutic LP Details: Under fluoroscopic guidance, the needle was carefully advanced into the lumbar subarachnoid space resulting in free flow of CSF. Therapeutic Volume: 5 ml of CSF was withdrawn in a sterile fashion from the subarachnoid space and forwarded to the laboratory for analysis. No contrast was administered Opening pressure was recorded at 23 cm H2O Closing pressure was recorded at 15 cm H2O CSF Color: Clear D) Estimated Blood Loss: 0 mL E) Type of Removed Specimens: CSF F) Number of specimen vials: None Fluoroscopic Radiation Summary: Fluoroscopic guidance was performed in conjunction with the mathematical technician. Plane A, Air Kerma: 13.5 mGy Dose Area Product (DAP): 2522.6 mGy*cm2 Fluoro time: 0:18 min: sec Post-Procedure: Conclusion: The patient was transferred to the Radiology Recovery Room in stable condition and observed for approximately 60 minutes. Immediate Complications: None. Delayed Complications (will be reported as an addendum to the original report): None apparent at this time Timeout Time and Procedure Start Time: 10:00 Procedure End Time and Sign Out Time: 10:17 IMPRESSION: TECHNICALLY SUCCESSFUL THERAPEUTIC LUMBAR PUNCTURE. The procedure was performed by: Janice Arroyo PA-C Transcribed Using Voice Recognition Transcribe Date/Time: Dec 25 2024 4:06P Dictated by: JANICE ARROYO PA-C This examination was interpreted and the report reviewed and electronically signed by: JANICE ARROYO PA-C on Dec 25 2024 4:09PM EST [id number] [facility] Colonoscopy Reporton 025 Colonoscopy Report [facility] Medical Records Department [address] [place] [address] Colonoscopy Report MR#: [id number] Acct: [id number] Name: LEXIS NGUYEN Rep #: [id number] : 1985 39 From: Wilton Hunt DO PCP: Dr. Fede Davis MD Status:REG [facility] Patient Name: Lexis Nguyen Procedure Date: 12/19/2024 1:36 PM Date of : 1985 Age: 39 Procedure: Colonoscopy Indications: Abdominal pain in the left lower quadrant, Abdominal pain in the right lower quadrant, Abdominal pain in the right upper quadrant Providers: Wilton Hunt DO Referring MD: Fede Davis Md Medicines: Monitored Anesthesia Care Patient Profile: This is a 39 year old female. Refer to note in patient chart for documentation of history and physical. Patient has symptoms of chronic abdominal cramping, chronic right upper quadrant abdominal pain, chronic dyspepsia, chronic nausea and chronic throat burning. Last Colonoscopy: more than 10 years ago. Complications: No immediate complications. Procedure: Pre-Anesthesia Assessment: - Prior to the procedure, a History and Physical was performed, and patient medications and allergies were reviewed. The patient is competent. The risks and benefits of the procedure and the sedation options and risks were discussed with the patient. All questions were answered and informed consent was obtained. Patient identification and proposed procedure were verified by the physician in the pre-procedure area. Mental Status Examination: alert and oriented. Airway Examination: normal oropharyngeal airway and neck mobility. Respiratory Examination: clear to auscultation. CV Examination: normal. Prophylactic Antibiotics: The patient does not require prophylactic antibiotics. Prior Anticoagulants: The patient has taken no anticoagulant or antiplatelet agents except for NSAID medication. ASA Grade Assessment: II - A patient with mild systemic disease. After reviewing the risks and benefits, the patient was deemed in satisfactory condition to undergo the procedure. The anesthesia plan was to use monitored anesthesia care (MAC). Immediately prior to administration of medications, the patient was re-assessed for adequacy to receive sedatives. The heart rate, respiratory rate, oxygen saturations, blood pressure, adequacy of pulmonary ventilation, and response to care were monitored throughout the procedure. The physical status of the patient was re-assessed after the procedure. After I obtained informed consent, the scope was passed under direct vision. Throughout the procedure, the patient's blood pressure, pulse, and oxygen saturations were monitored continuously. The Colonoscope was introduced through the anus with the intention of advancing to the ileum. The scope was advanced to the hepatic flexure before the procedure was aborted. Medications were given. The colonoscopy was performed without difficulty. The patient tolerated the procedure well. The quality of the bowel preparation was poor. Scope In: 1:37:36 PM Scope Out: 1:42:31 PM Total Procedure Duration Time 0 hours 4 minutes 55 seconds Findings: The perianal and digital rectal examinations were normal. A 7 mm polyp was found in the sigmoid colon. The polyp was sessile. The polyp was removed with a hot snare. Resection and retrieval were complete. Verification of patient identification for the specimen was done. Estimated blood loss was minimal. Impression: - Preparation of the colon was poor. - One 7 mm polyp in the sigmoid colon, removed with a hot snare. Resected and retrieved. Recommendation: - Repeat colonoscopy at next available appointment (within 3 months) because the bowel preparation was suboptimal. - Continue present medications. Procedure Code(s): --- Professional --- 23998, 52, Colonoscopy, flexible; with removal of tumor(s), polyp(s), or other lesion(s) by snare technique CPT copyright 2021 [employer]. All rights reserved. The codes documented in this report are preliminary and upon manager metal review may be revised to meet current compliance requirements. Wilton Hunt DO 12/19/2024 1:58:39 PM This report has been signed electronically. Number of Addenda: 0 Note Initiated On: 12/19/2024 1:36 PM 12/19/24 1358 Date Wilton Hunt DO Cosigner Signature: Date (if indicated) CC: Dr. Fede Davis MD; Wilton Hunt DO Date Dictated: 12/19/24 1336 Date Transcribed: Heel Nailing Machine Operator: VIJAY Signed Normal [facility] EGD Reporton 12-19-2024 EGD Report [facility] Medical Records Department [address] [place] [id number] EGD Report MR#: [id number] Acct: [id number] Name: LEXIS NGUYEN Rep #: [id number] : 1985 39 From: Wilton Hunt DO PCP: Dr. Fede Davis MD Status:[facility] Patient Name: Lexis Nguyen Procedure Date: 12/19/2024 1:18 PM Date of : 1985 Age: 39 Procedure: Upper GI endoscopy Indications: Epigastric abdominal pain, Functional Dyspepsia, Dyspepsia, Indigestion, Failure to respond to medical treatment Providers: Wilton Hunt DO Referring MD: Fede Davis Md Medicines: Monitored Anesthesia Care Patient Profile: This is a 39 year old female. Refer to note in patient chart for documentation of history and physical. Patient has symptoms of chronic abdominal cramping, chronic right upper quadrant abdominal pain, chronic dyspepsia, chronic nausea and chronic throat burning. Complications: No immediate complications. Procedure: Pre-Anesthesia Assessment: - Prior to the procedure, a History and Physical was performed, and patient medications and allergies were reviewed. The patient is competent. The risks and benefits of the procedure and the sedation options and risks were discussed with the patient. All questions were answered and informed consent was obtained. Patient identification and proposed procedure were verified by the physician in the pre-procedure area. Mental Status Examination: alert and oriented. Airway Examination: normal oropharyngeal airway and neck mobility. Respiratory Examination: clear to auscultation. CV Examination: normal. Prophylactic Antibiotics: The patient does not require prophylactic antibiotics. Prior Anticoagulants: The patient has taken no anticoagulant or antiplatelet agents except for NSAID medication. ASA Grade Assessment: II - A patient with mild systemic disease. After reviewing the risks and benefits, the patient was deemed in satisfactory condition to undergo the procedure. The anesthesia plan was to use monitored anesthesia care (MAC). Immediately prior to administration of medications, the patient was re-assessed for adequacy to receive sedatives. The heart rate, respiratory rate, oxygen saturations, blood pressure, adequacy of pulmonary ventilation, and response to care were monitored throughout the procedure. The physical status of the patient was re-assessed after the procedure. After obtaining informed consent, the endoscope was passed under direct vision. Throughout the procedure, the patient's blood pressure, pulse, and oxygen saturations were monitored continuously. The Colonoscope was introduced through the mouth, and advanced to the second part of duodenum. The upper GI endoscopy was accomplished without difficulty. The patient tolerated the procedure well. Scope In: 1:23:25 PM Scope Out: 1:33:21 PM Total Procedure Duration Time 0 hours 9 minutes 56 seconds Findings: The examined esophagus was normal. Evidence of a Krystal-en-Y gastrojejunostomy was found. The gastrojejunal anastomosis was characterized by congestion and edema. This was traversed. The awxnt-zr-rmnuxpc limb was characterized by edema. The jejunojejunal anastomosis was characterized by congestion and edema. The qwcdxclt-wd-ydxgrdm limb was examined 70 cm from the anastomosis and was characterized by healthy appearing mucosa. The excluded stomach was not examined as it could not be found. Biopsies were taken with a cold forceps for histology. Verification of patient identification for the specimen was done. Estimated blood loss was minimal. The examined jejunum was normal. Impression: - Normal esophagus. - Krystal-en-Y gastrojejunostomy with gastrojejunal anastomosis characterized by congestion and edema. Biopsied. - Normal examined jejunum. Recommendation: - Discharge patient to home. - Resume previous diet. - Continue present medications. - Await pathology results. Procedure Code(s): --- Professional --- 31266, Esophagogastroduodenos copy, flexible, transoral; with biopsy, single or multiple CPT copyright 2021 [employer]. All rights reserved. The codes documented in this report are preliminary and upon manager metal review may be revised to meet current compliance requirements. Wilton Hunt DO 12/19/2024 1:55:27 PM This report has been signed electronically. Number of Addenda: 0 Note Initiated On: 12/19/2024 1:18 PM 12/19/24 1355 Date Wilton Hunt DO Cosigner Signature: Date (if indicated) CC: Dr. Fede Davis MD; Wilton Hunt DO Date Dictated: 12/19/24 1318 Date Transcribed: Heel Nailing Machine Operator: RF Signed [facility] MR/POSTOP.Susanna 12-19-2024 MR/POSTOP.[facility] Medical Records Department [address] [place] [address] Anesthesia Postop Eval I 12/19/24 1352 MR#: [id number] Acct: [id number] Name: LEXIS NGUYEN JINNY Rep #: [id number] : 1985 39 From: Rowdy Ortiz CRNA PCP: Dr. Fede Davis MD Status:REG [facility] Y Race: C Location: [place] [address] Anesthesia: Postop Eval I Current Vital Signs Temperature: 98.6 F Pulse Rate: 89 Blood Pressure: 111/76 Respiratory Rate: 18 Pulse Ox: 97 Assessment Airway patent: Yes Spontaneous unlabored respirations: Yes nausea: No Vomiting: No Anesthesia Complication: No Fluid Hydration Crystalloid volume administer (ml): 40 Total IV fluid infused: 40 Progress Note Anesthesia document: Postop Eval 1 completed: Yes 12/19/24 1352 Date Rowdy Diana SAFETY AND HEALTH CONSULTANT Cosigner Signature: Date CC: Signed Normal [facility] [id number] 12-19-2024 /[facility] Medical Records Department [address] [place] [address] Anesthesia Postop Eval II 12/19/24 2248 MR#: [id number] Acct: [id number] Name: LEXIS NGUYEN Rep #: [id number] : 1985 39 From: Thee Sandhu MD PCP: Dr. Fede Davis MD Status:[facility] Y Race: C Location: EN Anesthesia Postop Eval I Sum Postop Eval Completion status Anesthesia document: Postop Eval 1 completed: Yes Anesthesia Postop Eval I Summary Anesthesia Postop Eval I Summary: Anesthesia Postop Eval I: Assessment Summary Airway patent Yes 12/19/24 13:52 SAFETY AND HEALTH CONSULTANT.TNES Spontaneous unlabored Yes 12/19/24 13:52 SAFETY AND HEALTH CONSULTANT.TNES respirations Mental status nausea No 12/19/24 13:52 SAFETY AND HEALTH CONSULTANT.TNES Vomiting No 12/19/24 13:52 SAFETY AND HEALTH CONSULTANT.TNES Anesthesia Postop Eval I: Fluid Summary Crystalloid volume administer 40 12/19/24 13:52 SAFETY AND HEALTH CONSULTANT.TNES (ml) Colloids volume administered ( ml) Blood Product volume administered (ml) Total IV fluid infused 40 12/19/24 13:52 SAFETY AND HEALTH CONSULTANT.TNES Anesthesia Postop Eval I: Summary Notes Anesthesia Complication No 12/19/24 13:52 SAFETY AND HEALTH CONSULTANT.TNES Anesthesia Complication Comment: Post-operative progress note Anesthesia: Postop Eval II Evaluation Mental status: Awake and Calm Pain Level: 0 nausea: No Vomiting: No Complications Anesthesia Complication: No 12/20/24 0800 Date Thee Rivera Signature: Date CC: Signed Normal [facility] Surgery Specimen Level Italo 12-19-2024 Surgery Specimen Level IV ---- Patient Age/Sex Location Account Attending Physician ---- LEXIS NGUYEN 39/F EN [id number] Wil[place] Hunt DO ---- Specimen: [id number] Received: 12/19/24098 Status: ROBERTH Rosas Num: [id number] Spec Type: COLON BX Subm Dr: Wilton Hunt DO HEADER OPERATION: Colonoscopy with polypectomy, EGD with biopsy PRE-OP DIAGNOSIS: Constipation, GERD TISSUE SUBMITTED: A- Anastomosis biopsy, B- Sigmoid polyp ---- MICROSCOPIC DIAGNOSIS A. Anastomosis, biopsy: Fragments of small intestinal mucosa, no pathologic diagnosis. B. Sigmoid polyp, polypectomy: Fragments of tubular adenoma. ALONZO.mr 12/21/2024 MICROSCOPIC DESCRIPTION Slides are reviewed. GROSS DESCRIPTION A. Received in fixative is one container labeled with the patient's name and designated Anastomosis biopsy. The specimen consists of two irregular fragments of light abreu soft tissue that in aggregate measure 0.8 x 0.3 x 0.2 cm. The specimen is totally submitted in one cassette. B. Received in fixative is one container labeled with the patient's name and designated Sigmoid polyp. The specimen consists of multiple irregular fragments of light abreu soft tissue that in aggregate measure 1.3 x 0.3 x 0.2 cm. The specimen is totally submitted in one cassette. 12/20/2024 TC:1 CPT:16190t0 ---- Patient Age/Sex Location Account Attending Physician ---- ESTHELA NGUYENSSANN STEARNS 39/F EN [id number] [place] DO [place] ---- Signed (signature on file) Dr. Jeffrey Reese MD 12/21/24 1202 ---- Normal [facility] Comment on above: Performed By: #### P SUIV ####[facility] [id number] [place], [place], [id number] /[place] 12-15-2024 /[facility] Medical Records Department [address] [place] [address] PAT - Anesthesia 12/15/24 1229 MR#: [id number] Acct: [id number] Name: NGUYENESTHELALEXIS LEE Rep #: [id number] : 1985 39 From: Zenobia Jhaveri MD PCP: Dr. Fede Davis MD Status:PRE [facility] Y Race: C Location: EN Pre-Assessment Diagnosis/Proposed Procedure Planned Operative Procedure(s): EGD/CSCOPE Anesthesia History Anesthesia History - natural fabricator: Anesthesia History - natural fabricator Hx Hospitalization No 12/15/24 10:48 Any Problems With Anesthesia No 12/15/24 10:48 Cholinesterase deficiency No 12/15/24 10:48 You/Your Family Experience No 12/15/24 10:48 fever (hyperthermia) with Relationship Recent Exposure to Contagious Disease Does patient have nerve No 12/15/24 10:48 stimulator Patient instructed to have device shut off --Does patient have Pacemaker or ICD? When Was Last Pacemaker Check QUESTION #4 FULL TEXT: You/Your Family Experience fever (hyperthermia) with Anesthesia Last Oral Intake Last Oral intake: Last Oral Intake NPO since Meds taken in AM with sips of water? Meds patient instructed to take am of surgery PONV PONV - natural fabricator: PONV - natural fabricator Female Yes 12/15/24 10:48 HX of Motion Sickness Yes 12/15/24 10:48 HX of N/V After Surgery No 12/15/24 10:48 Non-Smoker Yes 12/15/24 10:48 Duration of Surgery greater No 12/15/24 10:48 than 60 minutes Number of Risk Factors 3 12/15/24 10:48 PONV Score Moderate Risk 12/15/24 10:48 Height Weight Height Weight: Anesthesia: Height Weight Height 5 ft 4 in 09/12/24 14:43 Respiratory Assessment Respiratory Assessment - natural fabricator: Respiratory Tract Infection Hx - natural fabricator Hx Respiratory Tract Infection No 12/15/24 10:48 STOP Sleep Apnea STOP Sleep Apnea - natural fabricator: STOP Sleep Apnea - natural fabricator Hx Hypertension Yes: YRS AGO/NO MEDS FOR 10 12/15/24 10:48 YRS Hx Sleep Apnea No 12/15/24 10:48 CPAP BIPAP Do you snore loudly (louder No 12/15/24 10:48 than talking or can be heard Do you often feel tired/ No 12/15/24 10:48 fatigued/ sleepy during daytime? Has anyone observed you stop No 12/15/24 10:48 breathing during sleep? STOP Results Negative 12/15/24 10:48 QUESTION #5 FULL TEXT : Do you snore loudly (louder than talking or can be heard through closed doors)? Tobacco Use History Tobacco Use History - natural fabricator: Tobacco Use History - natural fabricator Tobacco Use Smoking Status Never smoker 12/15/24 10:48 Hx Tobacco Use No 12/15/24 10:48 Years Smoking Packs Smoked per Day Smoking Cessation Date was within the last 15 years Hx Smoking Cessation Date Hx Smoking Cessation Counseling Hematologic Medial History Hematologic Hx - natural fabricator: Hematologic Medical Hx - welder fitter gas Hx of Blood Transfusion No 12/15/24 10:48 Hx of Transfusion in last 3 No 12/15/24 10:48 Months Date of Last Transfusion (if within last 3 months) Ever experience any problems No 12/15/24 10:48 with transfusion(s)? Specify any problems Hx of Preganancy in last 3 No 12/15/24 10:48 Months Nurse Filling Out Transfusion DSCHRIBER 12/15/24 10:48 Questions: Date: 12/15/24 12/15/24 10:48 Time: 10:49 12/15/24 10:48 Patient unable to answer at this time (ie. confused, unrespo /Reproduction History /Reproductive History - natural fabricator: /Reproductive Hx- natural fabricator Hx Now No 12/15/24 10:48 Gestational Age (in weeks): EDC: Hx Hx Para Hx Section SAB No 12/15/24 10:48 [facility] Medical History (Updated 12/15/24 @ 10:56 by Natalie Correa) Wears glasses Wears partial dentures Marijuana use Arthritis Back pain Migraine headache Intracranial hypertension Gastric reflux Non-smoker History of pain when walking Hypertension History of broken collarbone Seizure Ovarian cyst Depression Anxiety Home Medications ???Medication ???Instructions ???Recorded ???Last Taken ???Type aripiprazole 5 mg tablet 10 mg PO QHS 07/05/22 Unknown History lorazepam 0.5 mg tablet 0.5 mg PO DAILY PRN PRN Anxiety 07/05/22 Unknown History tramadol 50 mg tablet 50 mg PO PRN PRN Pain 07/05/22 Unknown History dicyclomine 10 mg capsule 20 mg (2 x 10 mg) PO TID PRN 09/12/24 Unknown Rx abdominal pain #20 CAPSULES omeprazole 40 mg capsule,delayed 40 mg PO QDAY #90 caps 10/17/24 Unknown Rx release WEYGOVY 20 u subcut RODRÍGUEZ 12/15/24 12/03/24 History duloxetine 60 mg capsule,delayed 60 mg PO BID 12/15/24 Unknown History rel (more content not included)... Normal [facility] HISTORY PHYSICALon 5 HISTORY PHYSICAL HNO ID: [id number] Author: CYNDI VILLASENOR APRN.SENIOR SOUS CHEF Service: ? Author Type: Nurse Practitioner Type: H&P Filed: 12/07/2024 07:42 Note Text: [facility] HISTORY AND PHYSICAL EXAMINATION SERVICE DATE: 12/07/2024 SERVICE TIME: 7:27 AM Patient has been identified by name and date of : Yes Reason for contact: PACC visit Accompanied by: Self This is a virtual visit using [employer] Zoom Video Visit. It required patient-provider interaction for the medical decision making as documented below. I have communicated my name and active licensure. The patient's identity and physical location were verified at the time of this visit. Either the patient or their legal patient accounting representative has been informed of the risks and benefits of and alternatives to treatment through a remote evaluation and consents to proceed with the evaluation remotely. PRIMARY CARE PHYSICIAN: Fede Davis MD REASON FOR VISIT: Lexis Nguyen is a 39 year old female who is scheduled for Pending - SPINAL PUNCTURE THERAPEUTIC, DRAIN CSF VIA NEEDLE OR CATH at the request of for consultation. My final recommendation will be communicated back to the requesting physician by way of shared medical record or letter. Assessment Epilepsy (HCC) Assessment: Following with Dr. Thompson with [facility]care at [facility], . Last seizure February 2024 Well controlled on rx and medical marijuana. Difficult intravenous access Assessment: Per patient, requires US for PIV. Has had to have midline placed in past farzad to unable to obtain IV Medical marijuana use Assessment: Daily vape user. Uses for pain and seizures Gastroesophageal reflux disease Assessment: Controlled on medication Morbid obesity (HCC) Assessment: Body mass index is 42.05 kg/m?. On Semaglutide, advised to not take at least 7 days prior to procedure S/P gastric bypass Assessment: 2014 Major depression Anxiety Assessment: Stable on medication Higgins Activity Status Index: METS: Walk indoors, such as around the house (1.75 METs) Do light work around the house, such as dusting or washing dishes (2.70 METs) Take care of self; that is eating, dressing, bathing, using the toilet (2.75 METs) Walk a block or two on level ground (2.75 METs) Do moderate work around the house, such as vacuuming, sweeping floors, or carrying in groceries (3.50 METs) Do yardwork, such as raking leaves, weeding, or pushing a power mower (4.50 METs) Climb a flight of stairs or walk up a hill (5.50 METs) DASI Score: 23.45 Patient denies any chest pain or undue shortness of breath with the above physical activity. Clinical Frailty Scale: 3. Well, with treated comorbid disease STOP-Bang Score: BMI greater than 35 kg/m2 Denies snoring loudly Denies feeling tired, fatigued, or sleepy during the daytime Has not been observed to stop breathing or choking/gasping during sleep Patient 50 years old or younger Does not have a large neck Non-male patient STOP-Bang Score: 1 [id number] Score: Age: <65 Sex: female CHF history: No Hypertension history: No Stroke/TIA/thromboembo lism history: No Vascular disease history: No Diabetes history: No [id number] Score: 1 ANESTHESIA FINDINGS: Intubation History: No history of difficult intubation Significant Anesthesia Considerations: potential difficult IV/vein access Airway History: No history of difficult airway I - PHYSICAL EVALUATION AIRWAY Patient intubated: No. Tracheostomy tube not present Mallampati: II. TM distance: >3 FB. Neck ROM: full ROM without neurological symptoms. Mouth opening: adequate. Short neck: no. Thick neck: no DENTAL Dentures, upper: complete. Dentures, lower: complete. II - ANESTHESIA PLAN Anesthetic plan additional comments: *PACC/TCI - anesthesia choice. Beta Poncho Monitoring Plan Post Procedure Analgesic Plan Prepared for surgery: This patient is optimally prepared for surgery. CONSULTS: Patient does not require consults for optimization at this time. The Following Tests/Procedures Have Been Initiated: Labs not indicated per PACC protocol, EKG not indicated per PACC protocol Planned Anesthetic: Per anesthesia choice Subjective CHIEF COMPLAINT: Pre-op visit HPI: 39 year old IIH that has had lumbar puncture in past. Last procedure 11/20. Scheduled fro above procedure REVIEW OF SYSTEMS: PAIN ASSESSMENT: General: No weight loss, malaise or fevers. Neuro: See HPI Epilepsy- last seizure 02/2024 Respiratory: No history of current cough or dyspnea, or pneumonia in the past 6 weeks. No history of respiratory/pulmonary symptoms or problems. Cardiovascular: No history of HTN requiring medication, no history of angina, CHF, [place], cardiac surgery or stents. Denies rest pain, gangrene or revascularization/ampu tation for PVD. No history of cardiovascular symptoms or problems. GI: Negative for Abdomi (more content not included)... Normal [facility] ANES POSTPROC EVALon 025 ANES POSTPROC EVAL HNO ID: [id number] Author: JANES WOOD DO Service: Anesthesiology Author Type: Anesthesiologist Type: Anesthesia Postprocedure Evaluation Filed: 11/23/2024 06:39 Note Text: POST ANESTHESIA EVALUATION NOTE : 1985 Procedure Summary Date: 11/20/24 Room / Location: [facility] / IR Anesthesia Start: 929 Anesthesia Stop: 1033 Procedure: SPINAL PUNCTURE THERAPEUTIC, DRAIN CSF VIA NEEDLE OR CATH (Pending) Diagnosis: IIH (idiopathic intracranial hypertension) (IIH (idiopathic intracranial hypertension) [G93.2]) Surgeons: Janice Arroyo PA-C Responsible Provider: Janes Wood DO Anesthesia Type: MAC ASA Status: 3 Anesthesia Type: MAC Last Vitals Vitals Value Taken Time BP 117/72 11/20/24 1130 Temp 36.6 ?C (97.9 ?F) 11/20/24 1130 Pulse 76 11/20/24 1130 Resp 18 11/20/24 1130 SpO2 98 % 11/20/24 1130 Post Anesthesia Patient Status Patient Evaluation: PACU. PACU/ICU Patient Condition: stable. Anticipated Disposition: phase 2 then home. Neurological Status: aware and responsive. Pulmonary Status: breathing comfortably on room air Airway Control: returned to baseline unsupported. Cardiovascular Status: stable. Pain Management: satisfactory to patient Postoperative Hydration: acceptable. Intraoperative Events: no significant anesthesia events Post Operative Nausea/Vomiting Status: no significant post operative nausea or vomiting Recommendation: continue current plan of care. Anesthesia Observations No Documentation SIGNATURE: Janes Wood DO PATIENT NAME: Lexis Nguyen DATE: November 23, 2024 TIME: 6:39 AM CSN: [id number] [facility] ANES PRE-OPon 11-20-2024 ANES PRE-OP HNO ID: [id number] Author: JANES WOOD DO Service: Anesthesiology Author Type: Anesthesiologist Type: Anesthesia Preprocedure Evaluation Filed: 11/20/2024 09:10 Note Text: ANESTHESIOLOGY DAY OF SURGERY NOTE : 1985 Procedure Information Date/Time: 11/20/24929 Procedure: SPINAL PUNCTURE THERAPEUTIC, DRAIN CSF VIA NEEDLE OR CATH (Pending) Location: [facility] / [facility] IR Surgeons: Janice Arroyo PA-C Estimated body mass index is 43.93 kg/m? as calculated from the following: Height as of 10/27/24: 162.6 cm (5' 4). Weight as of this encounter: 116.1 kg (255 lb 15.3 oz). Most recent hematocrit and potassium results: Hematocrit 38.9 08/15/2024 Potassium 3.8 10/10/2023 Relevant Problems ANESTHESIA (+) JACK (obstructive sleep apnea) CARDIO (+) Exhausted vascular access GI (+) Gastroesophageal reflux disease NEURO-PSYCH (+) Epilepsy (HCC) (+) Headaches PULMONARY (+) JACK (obstructive sleep apnea) Gastrointestinal (+) S/P gastric bypass Other (+) Anxiety (+) Obesity due to excess calories I - PHYSICAL EVALUATION AIRWAY Patient intubated: No. Tracheostomy tube not present Mallampati: II. TM distance: >3 FB. Neck ROM: full ROM without neurological symptoms. Mouth opening: adequate. Short neck: no. Thick neck: yes Rangel present: no Microretrognathia/Micr onagthia/Recessed Chin: No DENTAL Dental findings: teeth intact. Additional exam findings: no II - ANESTHESIA PLAN ASA Score: 3 Anesthetic Plan: MAC The patient is not a current smoker. NPO Status: adequate Beta Poncho Monitoring Plan Monitoring plan: standard ASA. Post Procedure Analgesic Plan Postoperative analgesic plan: per surgical service and multimodal analgesia. Informed Consent Anesthetic risks, benefits, alternatives, personnel and consent discussed: yes. Patient / Responsible Libertarian agrees to proceed: yes Patient / Surrogate agrees to blood products: blood products not planned Significant changes in the patient condition since the History and Physical, not otherwise documented in primary service progress note: no. Potential Anesthesia issues that may suggest increased risk of complications or contraindication to planned procedure: none. Vitals Value Taken Time BP 112/69 11/20/24 0829 Pulse 83 11/20/24 0829 Resp 16 11/20/24828 Temp 36.8 ?C (98.2 ?F) 11/20/24 08 SpO2 100 % 11/20/24 08 No current facility-administered medications on file as of 11/20/2024. Outpatient Medications as of 11/20/2024 Medication Sig omeprazole (PRILOSEC) 20 mg capsule Take 1 capsule by mouth once daily. traMADol (ULTRAM) 50 mg tablet Take 1 tablet by mouth twice daily as needed for pain. cyanocobalamin (VITAMIN B-12) 1,000 mcg tab Take 1 tablet by mouth once daily. lacosamide (VIMPAT) 200 mg Take 1 tablet by mouth twice daily. ARIPiprazole (ABILIFY) 10 mg tablet Take 10 mg by mouth once daily. DULoxetine (CYMBALTA) 60 mg capsule duloxetine 60 mg capsule,delayed release TAKE 1 CAPSULE BY MOUTH TWICE DAILY Calcium Citrate 250 mg calcium tab Take 1 tablet by mouth once daily. SEMAGLUTIDE SUBCUTANEOUS Inject subcutaneously. lidocaine, PF, (XYLOCAINE) 10 mg/mL (1 %) soln injection 1-10 mL by INTRADERMAL route as needed. For use during PICC/Midline Insertion ONLY. I have interviewed and examined the patient. I have reviewed the medical record and/or the pre-anesthesia evaluation, pertinent labs, and test results. This contains updated information obtained within 48 hours of Surgery/Procedure. SIGNATURE: Janes Wood DO PATIENT NAME: Lexis Nguyen DATE: November 20, 2024 TIME: 9:08 AM CSN: [id number] [facility] BRIEF OP NOTon 11-20-2024 BRIEF OP NOT HNO ID: [id number] Author: JANICE ARROYO PA-C Service: ? Author Type: Physician Home Care Attendant Type: Brief Op Note Filed: 11/20/2024 10:22 Note Text: BRIEF OPERATIVE / PROCEDURE NOTE LOG ID: [id number] SURGERY/PROCEDURE DATE: 11/20/2024 INCISION/PROCEDURE START TIME: 9:57 AM INCISION CLOSE/PROCEDURE END TIME: 10:18 AM SURGEON(S)/PROCEDURALI ST(S) AND SCREEN CUTTER AND TRIMMER(S): Surgeons and Role: * Janice Arroyo PA-C - Primary No Additional Staff SURGERY/PROCEDURE(S): Lumbar Puncture ANESTHESIA: Choice - Anesthesia Consult FINDINGS: L2/3. OP: 28. CP: 15. Clear CSF ESTIMATED BLOOD LOSS: Minimal SPECIMENS: None per ordering team COMPLICATIONS: None PRE-OP/PRE-PROCEDURE DIAGNOSIS: IIH POST-OP/POST-PROCEDURE DIAGNOSIS: Same as Preop SIGNATURE: Janice Arroyo PA-C PATIENT NAME: Lexis Nguyen DATE: November 20, 2024 TIME: 10:21 AM [facility] IR LUMBAR PUNCT THERAPEUTIC INJon 11-20-2024 IR LUMBAR PUNCT THERAPEUTIC INJ * * *Final Report* * * DATE OF EXAM: Nov 20 2024 10:24AM [id number] - IR LUMBAR PUNCT THERAPEUTIC INJ / PROCEDURE REASON: IIH * * * * Physician Interpretation * * * * RESULT: PROCEDURE: Therapeutic Lumbar Puncture Under Fluoroscopic Guidance HISTORY: The patient is a 39 years year old Female who presented with IIH. Consent: The risks, benefits, treatment options, potential complications, equipment, and personnel to be involved were discussed (including the risks of radiation exposure, contrast and anesthesia administration) with the patient and all questions were answered and consent was verified prior to the procedure. General: A) Medication Reconciliation: The patient's medications and allergies were reviewed in the electronic medical record and reconciled to the proposed procedure/treatment. B) Pre-Procedure Medications: Medication #1: None C) Positioning: The patient was placed Prone on the fluoroscopy table. D) The Lumbar dorsal soft tissues. were then sterile prepped and draped. E) Time Out: A time out was performed immediately prior to procedure start with the nursing, anesthesia and interventional team, correctly identifying the name, medical record number, procedure, anatomy (including marking of site and side), patient position, procedure consent form, relevant diagnostic and radiology test results, antibiotic administration, safety precautions, and procedure-specific equipment needs. Timeout Affirmation (if attending not present): PA, RN, and RT present. F) Anesthesia Type: Induction of moderate procedural sedation managed by the Anesthesia Team. Local Anesthesia: 5 mL 1% Lidocaine G) Anesthesia Was Administered For A Total Of - see anesthesia report. H) Patient Monitoring: See anesthesia report TECHNIQUE/RESULT: A) Access Site: 20 gauge spinal needle from a left paramedian approach at the L2-L3 level. B) Counting reference: Lumbosacral junction. For the purposes of this report, L4-5 is considered the level of the iliac crest. C) Procedure Details: Using sterile procedure, local anesthesia was introduced to the skin and subcutaneous tissues as outlined above. Therapeutic LP Details: Under fluoroscopic guidance, the needle was carefully advanced into the lumbar subarachnoid space resulting in free flow of CSF. Therapeutic Volume: 20 ml of CSF was withdrawn in a sterile fashion from the subarachnoid space and forwarded to the laboratory for analysis. No contrast was administered Opening pressure was recorded at 28 cm H2O Closing pressure was recorded at 15 cm H2O CSF Color: Clear D) Estimated Blood Loss: 0 mL E) Type of Removed Specimens: CSF F) Number of specimen vials: None per ordering service Fluoroscopic Radiation Summary: Fluoroscopic guidance was performed in conjunction with the mathematical technician. Plane A, Air Kerma: 54.5 mGy Dose Area Product (DAP): 0.0 mGy*cm2 Fluoro time: 1:18 min: sec Post-Procedure: Conclusion: The patient was transferred to the transferred to the PACU in stable condition and observed for approximately 60 minutes. Immediate Complications: None. Delayed Complications (will be reported as an addendum to the original report): None apparent at this time Timeout Time and Procedure Start Time: 9:57 Procedure End Time and Sign Out Time: 10:18 IMPRESSION: TECHNICALLY SUCCESSFUL THERAPEUTIC LUMBAR PUNCTURE. The procedure was performed by: Janice Arroyo PA-C Transcribed Using Voice Recognition Transcribe Date/Time: Nov 20 2024 10:41A Dictated by: JANICE ARROYO PA-C This examination was interpreted and the report reviewed and electronically signed by: JANICE ARROYO PA-C on Nov 20 2024 10:48AM EST [id number] [facility] HISTORY PHYSICALon HISTORY PHYSICAL HNO ID: [id number] Author: SARAH MURRAY APRN.SENIOR SOUS CHEF Service: ? Author Type: Nurse Practitioner Type: H&P Filed: 10/27/2024 08:29 Note Text: HISTORY AND PHYSICAL EXAMINATION SERVICE DATE: 10/27/2024 SERVICE TIME: 8:28 AM PRIMARY CARE PHYSICIAN: Fede Davis MD This is a virtual visit using [employer] video visit. It required patient-provider interaction for the medical decision making as documented below. REASON FOR VISIT: Lexis Nguyen is a 39 year old female who is scheduled for Procedure(s): SPINAL PUNCTURE THERAPEUTIC, DRAIN CSF VIA NEEDLE OR CATH (Pending) at the request of Dr. Janice Arroyo for consultation. My final recommendation will be communicated back to the requesting physician by way of shared medical record or letter. Subjective The patient has the following: ACTIVE PROBLEM LIST Anxiety Epilepsy (Hcc) Gastroesophageal Reflux Disease Major Depression, Single Episode Morbid Obesity (Hcc) Iih (Idiopathic Intracranial Hypertension) Difficult Intravenous Access Morbid Obesity With Bmi of 45.0-49.9, Adult (Hcc) Idiopathic Intracranial Hypertension Headaches S/P Gastric Bypass Medical Marijuana Use Exhausted Vascular Access Jack (Obstructive Sleep Apnea) COVID-19 Immunization Status Covid-19 Vaccine (Series Information) Completed 09/09/2024 Imm Admin: COVID-19 vaccine, age 12+ yr (PFIZER-BIONTECH COMIRNATY) 10/25/2023 Imm Admin: COVID-19 vaccine, age 12+ yr, 2022- season (MODERNA) 09/01/2022 Imm Admin: COVID-19 vaccine, age 12+ yr, bivalent (PFIZER-BIONTECH) Only the first 3 history entries have been loaded, but more history exists. CHIEF COMPLAINT: Anesthesia consult HPI: This 39 year old female with a history of IIH (idiopathic intracranial hypertension) is scheduled for the above procedure and presents to the [facility] for pre-operative examination. Patient reports that she has had over 100 lumbar punctures, and now has requested TABBY due to severe pain. Notes significant pain, visual disturbance and whooshing in her ears. Having LPs every 5 weeks. Patient has been identified by name and date of : Yes This is a virtual visit using [employer] Zoom Video Visit. It require patient-provider interaction for the medical decision making as documented below. I have communicated my name and active licensure. The patient's identity and physical location were verified at the time of this visit. Either the patient or their legal patient accounting representative has been informed of the risks and benefits of and alternatives to treatment through a remote evaluation and consents to proceed with the evaluation remotely. Reason for contact: [facility] visit Accompanied by: Self This is a virtual visit. The visit was conducted using archify video visit. It required patient-provider interaction for the medical decision making as documented below. I have communicated my name and active licensure. The patient's identity and physical location were verified at the time of this visit. Either the patient or their legal patient accounting representative has been informed of the risks and benefits of and alternatives to treatment through a remote evaluation and consents to proceed with the evaluation remotely. REVIEW OF SYSTEMS: General: No weight loss, malaise or fevers. Neurological: +IIH Positive for: seizures. Negative for: cerebral palsy, RN MANAGED CARE tumor, delirium, dementia, headaches, hemiplegia, impaired sensorium, multiple sclerosis, paraplegia, Parkinson's disease, peripheral neuropathy, quadriplegia, TIA and strokes. Respiratory: Positive for: obstructive sleep apnea. Negative for: asthma, bronchitis, COPD, current cough, bronchodilator used daily for the last 3 months, dyspnea, home oxygen, orthopnea, pneumonia within 6 weeks, tobacco use and URI < 2 weeks. Cardiovascular: Negative for: abdominal aortic aneurysm, AICD/PPM, angina, anticoagulation therapy, arrhythmia, atrial fibrillation, CAD, chest pain, CHF, congenital heart defect, DVT/PE, hyperlipidemia, hypertension, recent [place], murmur/valvular heart disease, PTCA, PVD, open heart surgery and valve surgery. GI: +h/o gastric bypass Positive for: GERD and nausea (D/t GLP-1) Negative for: abdominal pain, ascites, colon cancer, dysphagia, diverticulitis, esophageal stricture, esophageal varices <6 months, GI bleed <30 days, heartburn, hepatitis, irritable bowel syndrome, inflammatory bowel disease, liver disease, pancreatitis, history of polyps, PUD, rectal cancer, vomiting and ETOH >2 drinks/day. : Negative for: BPH, decreased stream, on dialysis, dysuria, flank pain, frequent urination, hematuria, hesitancy, urinary incontinence, indwelling catheter, nephrolithiasis, nocturia >1 time per night, renal failure, self catheterization, urgency and urinary tract infection. 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 Endocrine: Negative for: diabetes mellitus, diabetic nephropathy, diabetic neur (more content not included)... Normal [facility] Octavio 10-26-2024 FERN Telephone (IRRL) LEXIS NGUYEN ([id number]) 1985 F Date Time Provider Department 10/26/24 MEGAN CHIRINOS IRRDHL During your visit today, we recorded the following information about you: Taran Thomas Megan 10/26/2024 12:54 PM Signed Called and scheduled Lexis for 11/20 for an LP with TABBY. Gave her the number to [facility] to schedule a virtual appointment.[phone] Allergies As of Date: 10/26/2024 Noted Allergy Reaction NSAIDS (NON-STEROIDAL ANTI-INFLAM*09/02/2015 8 - GI Upset 15 - Contraindication-Medic al Rodríguez* Comments: Because of gastric bypass CAVANAUGH PEPPER 10/12/2019 2 - Rash NORTRIPTYLINE 08/15/2024 14 - Other: See Comments Comments: Tremors GABAPENTIN 05/13/2022 1 - Mental Status Change 14 - Other: See Comments Comments: Tremors PENICILLINS 1985 4 - Hives 2 - Rash Comments: Received IV cefazolin at [facility] in 2018 and 2020 prior to procedures Received IV cefazolin at [facility] in 2018 and 2020 prior to procedures Date Reviewed: 10/18/2024 Reviewed by: Eusebio Major, RN - Fully Assessed Reason for Visit: Scheduling [3921] Cmt: LP with TABBY and [facility] info Prescriptions as of 10/26/2024 - SEMAGLUTIDE SUBCUTANEOUS Inject subcutaneously. - lidocaine, PF, (XYLOCAINE) 10 mg/mL (1 %) soln injection 1-10 mL by INTRADERMAL route as needed. For use during PICC/Midline Insertion ONLY. - omeprazole (PRILOSEC) 20 mg capsule Take 1 capsule by mouth once daily. - traMADol (ULTRAM) 50 mg tablet Take 1 tablet by mouth twice daily as needed for pain. - cyanocobalamin (VITAMIN B-12) 1,000 mcg tab Take 1 tablet by mouth once daily. - lacosamide (VIMPAT) 200 mg Take 1 tablet by mouth twice daily. - ARIPiprazole (ABILIFY) 10 mg tablet Take 10 mg by mouth once daily. - DULoxetine (CYMBALTA) 60 mg capsule duloxetine 60 mg capsule,delayed release TAKE 1 CAPSULE BY MOUTH TWICE DAILY - Calcium Citrate 250 mg calcium tab Take 1 tablet by mouth once daily. Problem List As Of Date 10/26/2024 Noted Resolved Anxiety [F41.9] 01/12/2023 Epilepsy (HCC) [G40.909] 01/12/2023 Gastroesophageal reflux disease [K21.9] 01/12/2023 Major depression, single episode [F32.9] 01/12/2023 Morbid obesity (HCC) [E66.01] 01/12/2023 IIH (idiopathic intracranial hypertension) [G93*01/12/2023 Difficult intravenous access [Z78.9] 02/16/2023 Morbid obesity with BMI of 45.0-49.9, adult (HC*03/12/2023 Idiopathic intracranial hypertension [G93.2] 03/12/2023 Headaches [R51.9] 03/15/2023 S/P gastric bypass [Z98.84] 04/01/2023 Medical marijuana use [Z79.899] 04/01/2023 Exhausted vascular access [Z45.2] 06/15/2023 Pre-op evaluation [Z01.818] 11/04/2023 10/04/2024 Encounter Status:Closed by MEGAN HODGE on 10/26/24 [facility] [id number] 10-18-2024 [id number] HNO ID: [id number] Author: EUSEBIO MAJOR RN Service: ? Author Type: Registered Nurse Type: [id number] Filed: 10/18/2024 12:20 Note Text: Next dose of Tylenol due at 2:05 pm [facility] ANES POSTPROC EVALon 024 ANES POSTPROC EVAL HNO ID: [id number] Author: FARZAD RAJPUT MD Service: Anesthesiology Author Type: Anesthesiologist Type: Anesthesia Postprocedure Evaluation Filed: 10/18/2024 11:25 Note Text: POST ANESTHESIA EVALUATION NOTE : 1985 Procedure Summary Date: 10/18/24 Room / Location: [facility] / IR Anesthesia Start: 941 Anesthesia Stop: 1121 Procedure: SPINAL PUNCTURE LUMBAR DIAGNOSTIC (Pending: Spine) Diagnosis: IIH (idiopathic intracranial hypertension) (IIH (idiopathic intracranial hypertension) [G93.2]) Surgeons: Janice Arroyo PA-C Responsible Provider: Farzad Rajput MD Anesthesia Type: MAC ASA Status: 3 Anesthesia Type: MAC Last Vitals Vitals Value Taken Time BP 111/69 10/18/24 1116 Temp 10/18/24 1125 Pulse 69 10/18/24 1124 Resp 18 10/18/24 1125 SpO2 96 % 10/18/24 1124 Vitals shown include unfiled device data. Post Anesthesia Patient Status Patient Evaluation: PACU. PACU/ICU Patient Condition: stable. Intraoperative Events: no significant anesthesia events Anesthesia Observations No Documentation SIGNATURE: Farzad Rajput MD PATIENT NAME: Lexis Nguyen DATE: October 18, 2024 TIME: 11:25 AM CSN: [id number] [facility] ANES PRE-OPon 10-18-2024 ANES PRE-OP HNO ID: [id number] Author: FARZAD RAJPUT MD Service: Anesthesiology Author Type: Anesthesiologist Type: Anesthesia Preprocedure Evaluation Filed: 10/18/2024 08:17 Note Text: ANESTHESIOLOGY DAY OF SURGERY NOTE : 1985 Procedure Information Date/Time: 10/18/24929 Procedure: SPINAL PUNCTURE LUMBAR DIAGNOSTIC (Pending: Spine) - with TABBY. No additional lab orders required as this is mainly a therapeutic lumbar puncture Patient states she is a hard stick and needs ultrasound or midline Location: [facility] / [facility] Surgeons: Janice Arroyo PA-C Estimated body mass index is 44.58 kg/m? as calculated from the following: Height as of 10/04/24: 162.6 cm (5' 4). Weight as of this encounter: 117.8 kg (259 lb 11.2 oz). Most recent hematocrit and potassium results: Hematocrit 38.9 08/15/2024 Potassium 3.8 10/10/2023 Relevant Problems CARDIO (+) Exhausted vascular access GI (+) Gastroesophageal reflux disease NEURO-PSYCH (+) Epilepsy (HCC) (+) Headaches I - PHYSICAL EVALUATION AIRWAY Patient intubated: No. Tracheostomy tube not present Mallampati: II. TM distance: >3 FB. Neck ROM: full ROM without neurological symptoms. Mouth opening: adequate. Short neck: no. Thick neck: no DENTAL Dental findings: teeth intact. Additional exam findings: no II - ANESTHESIA PLAN ASA Score: 3 Anesthetic Plan: MAC The patient is not a current smoker. NPO Status: adequate Beta Poncho Administration of chronic beta poncho medication not planned. Monitoring Plan Monitoring plan: standard ASA. Post Procedure Analgesic Plan Postoperative analgesic plan: parenteral or oral opioids and multimodal analgesia. Informed Consent Anesthetic risks, benefits, alternatives, personnel and consent discussed: yes. Patient / Responsible Libertarian agrees to proceed: yes Patient / Surrogate agrees to blood products: blood products not planned DNR status not reviewed with patient and/or family prior to surgery. Significant changes in the patient condition since the History and Physical, not otherwise documented in primary service progress note: no. Potential Anesthesia issues that may suggest increased risk of complications or contraindication to planned procedure: none. Vitals Value Taken Time BP 123/77 10/18/24752 Pulse 83 10/18/24752 Resp 16 10/18/24752 Temp 36.7 ?C (98.1 ?F) 10/18/24752 SpO2 99 % 10/18/24752 Facility-Administered Medications as of 10/18/2024 Medication Dose Route Frequency - [COMPLETED] acetaminophen 1,000 mg tab(s) (TYLENOL) 1,000 mg ORAL ONCE - [COMPLETED] promethazine 12.5 mg tab(s) (PHENERGAN) 12.5 mg ORAL NOW Outpatient Medications as of 10/18/2024 Medication Sig - omeprazole (PRILOSEC) 20 mg capsule Take 1 capsule by mouth once daily. - traMADol (ULTRAM) 50 mg tablet Take 1 tablet by mouth twice daily as needed for pain. - cyanocobalamin (VITAMIN B-12) 1,000 mcg tab Take 1 tablet by mouth once daily. - lacosamide (VIMPAT) 200 mg Take 1 tablet by mouth twice daily. - ARIPiprazole (ABILIFY) 10 mg tablet Take 10 mg by mouth once daily. - DULoxetine (CYMBALTA) 60 mg capsule duloxetine 60 mg capsule,delayed release TAKE 1 CAPSULE BY MOUTH TWICE DAILY - Calcium Citrate 250 mg calcium tab Take 1 tablet by mouth once daily. - SEMAGLUTIDE SUBCUTANEOUS Inject subcutaneously. - lidocaine, PF, (XYLOCAINE) 10 mg/mL (1 %) soln injection 1-10 mL by INTRADERMAL route as needed. For use during PICC/Midline Insertion ONLY. I have interviewed and examined the patient. I have reviewed the medical record and/or the pre-anesthesia evaluation, pertinent labs, and test results. This contains updated information obtained within 48 hours of Surgery/Procedure. SIGNATURE: Farzad Rajput MD PATIENT NAME: Lexis Nguyen DATE: October 18, 2024 TIME: 8:16 AM CSN: [id number] [facility] BRIEF OP NOTon 10-18-2024 BRIEF OP NOT HNO ID: [id number] Author: JANICE ARROYO PA-C Service: ? Author Type: Physician Home Care Attendant Type: Brief Op Note Filed: 10/18/2024 11:32 Note Text: BRIEF OPERATIVE / PROCEDURE NOTE LOG ID: [id number] SURGERY/PROCEDURE DATE: 10/18/2024 INCISION/PROCEDURE START TIME: 10:07 AM INCISION CLOSE/PROCEDURE END TIME: 10:54 AM SURGEON(S)/PROCEDURALI ST(S) AND SCREEN CUTTER AND TRIMMER(S): Surgeons and Role: * Janice Arroyo PA-C Andrew Schreiner, MD No Additional Staff SURGERY/PROCEDURE(S): Therapeutic Lumbar Puncture ANESTHESIA: Choice - Anesthesia Consult FINDINGS: L3/4. Clear CSF OP: 34 CP: 15 25 cc CSF removed ESTIMATED BLOOD LOSS: Minimal SPECIMENS: None per ordering provider request COMPLICATIONS: None PRE-OP/PRE-PROCEDURE DIAGNOSIS: IIH POST-OP/POST-PROCEDURE DIAGNOSIS: Same as Preop SIGNATURE: Janice Arroyo PA-C PATIENT NAME: Lexis Nguyen DATE: October 18, 2024 TIME: 11:24 AM [facility] IR LUMBAR PUNCTURE DIAGNOSTI Con 10-18-2024 IR LUMBAR PUNCTURE DIAGNOSTIC * * *Final Report* * * DATE OF EXAM: Oct 18 2024 10:54AM [facility] [id number] - IR LUMBAR PUNCTURE DIAGNOSTIC / PROCEDURE REASON: IIH * * * * Physician Interpretation * * * * RESULT: PROCEDURE: Therapeutic Lumbar Puncture Under Fluoroscopic Guidance HISTORY: The patient is a 39 years year old Female who presented with IIH. Consent: The risks, benefits, treatment options, potential complications, equipment, and personnel to be involved were discussed (including the risks of radiation exposure, contrast and anesthesia administration) with the patient and all questions were answered and consent was verified prior to the procedure. General: A) Medication Reconciliation: The patient's medications and allergies were reviewed in the electronic medical record and reconciled to the proposed procedure/treatment. B) Pre-Procedure Medications: Medication #1: None C) Positioning: The patient was placed Prone on the fluoroscopy table. D) The Lumbar dorsal soft tissues. were then sterile prepped and draped. E) Time Out: A time out was performed immediately prior to procedure start with the nursing, anesthesia and interventional team, correctly identifying the name, medical record number, procedure, anatomy (including marking of site and side), patient position, procedure consent form, relevant diagnostic and radiology test results, antibiotic administration, safety precautions, and procedure-specific equipment needs. Timeout Affirmation (if attending not present): PA, RN, and RT present. F) Anesthesia Type: administration of local anesthesia. Local Anesthesia: 5 mL 1% Lidocaine G) Anesthesia Was Administered For A Total Of 47 min - see anesthesia note for more details H) Patient Monitoring: N/A TECHNIQUE/RESULT: A) Access Site: 20 gauge spinal needle from a right paramedian approach at the L3-L4 level. B) Counting reference: Lumbosacral junction. For the purposes of this report, L4-5 is considered the level of the iliac crest. C) Procedure Details: Using sterile procedure, local anesthesia was introduced to the skin and subcutaneous tissues as outlined above. Therapeutic LP Details: Under fluoroscopic guidance, the needle was carefully advanced into the lumbar subarachnoid space resulting in free flow of CSF. Therapeutic Volume: 25 ml of CSF was withdrawn in a sterile fashion from the subarachnoid space and discarded per primary team request. No contrast was administered Opening pressure was recorded at 34 cm H2O Closing pressure was recorded at 15 cm H2O CSF Color: Clear D) Estimated Blood Loss: 0 mL E) Type of Removed Specimens: CSF F) Number of specimen vials: None Fluoroscopic Radiation Summary: Fluoroscopic guidance was performed in conjunction with the mathematical technician. Plane A, Air Kerma: 275.3/ 90.2/ 185.1 mGy Dose Area Product (DAP): 5574.8/ 2094.4/ 3480.3 uGym2 Fluoro time: 3.0 min: sec Post-Procedure: Conclusion: The patient was transferred to the transferred to the PACU in stable condition and observed for approximately 60 minutes. Immediate Complications: None. Delayed Complications (will be reported as an addendum to the original report): None apparent at this time Timeout Time and Procedure Start Time: 10:07 Procedure End Time and Sign Out Time: 10:54 IMPRESSION: TECHNICALLY SUCCESSFUL THERAPEUTIC LUMBAR PUNCTURE. The procedure was performed by: Janice Arroyo PA-C and Dr. Joslyn Mccrary MD Transcribed Using Voice Recognition Transcribe Date/Time: Oct 18 2024 11:36A Dictated by: JOSLYN MCCRARY MD This examination was interpreted and the report reviewed and electronically signed by: JOSLYN MCCRARY MD on Oct 18 2024 12:07PM EST [id number] [facility] NURSING PROGon 10-18-2024 NURSING PROG HNO ID: [id number] Author: EUSEBIO MAJOR RN Service: Nursing Author Type: Registered Nurse Type: Nursing Progress Note Filed: 10/18/2024 12:24 Note Text: Other: 1110: Patient arrived to PACU from IR, VSS on 6L SFM. Pt resting comfortably in bed supine, flat for 1 hour per report. Lumbar puncture site (L3/4) WNL. No drainage or hematoma noted. Bedside report received, family sent update on patient status. See flowsheets for assessment. 1210: Patient completed 1 hour of laying flat in PACU. No reported pain or complications. Puncture site WNL. Call placed to ETHAN Arroyo for discharge orders. Patient moved over to Phase II for discharge. [facility] NURSING PROG HNO ID: [id number] Author: KATHLEEN DOWNEY RN Service: Radiology Author Type: Registered Nurse Type: Nursing Progress Note Filed: 10/18/2024 09:06 Note Text: PICC/VASCULAR ACCESS PROGRESS NOTE SERVICE DATE: 10/18/2024 SERVICE TIME: 834 9:05 AM Requested to see patient who needs new IV requesting ultrasound IV. Using ultrasound guidance, A peripheral IV was started in the Left forearm with a Angio cath: 20 gauge. and A Saline lock was inserted per protocol 1.25 inches in length, on first attempt. Brisk blood return and flushed without difficulty with 10 mL saline. No symptoms of complications. SIGNATURE: Kathleen Downey RN PATIENT NAME: Lexis Nguyen DATE: October 18, 2024 TIME: 9:04 AM PAGER/CONTACT #: Elena Radiology PICC nurse. [facility] Gastroenterology Visit Repor ton 10-17-2024 Gastroenterology Visit Report [facility] [address] [place] [address] OFFICE VISIT Date of Service: 10/17/24 MR#: [id number] Acct: [id number] Name: LEXIS NGUYEN Rep #: [id number] : 1985 Provider: TIP Geronimo Age/Sex: 39/F [place] [facility] Status: Signed Intake Vital Signs 09/12/24 14:43 Height 5 ft 4 in Intake Visit Reasons: Intestinal Issue Chief Complaint: constipation Allergies nortriptyline Allergy (Intermediate, Verified 09/12/24 14:43) TREMORS pepper (genus Capsicum) Allergy (Mild, Verified 09/12/24 14:43) Rash Penicillins Allergy (Verified 09/12/24 14:43) Rash gabapentin Adverse Reaction (Verified 09/12/24 14:43) TREMORS NSAIDS (Non-Steroidal Anti-Inflamma Adverse Reaction (Verified 09/12/24 14:43) GASTRIC BYPASS Medications ???Medication ???Instructions ???Recorded ???Confirmed ???Type Cymbalta 60 mg PO/SL BID 07/05/22 10/17/24 History Vimpat 150 mg PO/SL BID 07/05/22 10/17/24 History aripiprazole 5 mg tablet 5 mg PO QHS 07/05/22 07/05/22 History lorazepam 0.5 mg tablet 0.5 mg PO DAILY PRN PRN Anxiety 07/05/22 07/05/22 History omeprazole 20 mg PO/SL DAILY 07/05/22 10/17/24 History tramadol 50 mg tablet 50 mg PO PRN PRN Pain 07/05/22 07/05/22 History magnesium citrate 300 ml PO X1 #1 BOTTLE 06/18/24 Rx dicyclomine 10 mg capsule 20 mg (2 x 10 mg) PO TID PRN 09/12/24 Rx abdominal pain #20 CAPSULES lactulose 10 gram/15 mL (15 mL) 15 ml PO BID PRN constipation #300 09/12/24 Rx oral solution mL omeprazole 40 mg capsule,delayed 40 mg PO QDAY #90 caps 10/17/24 10/17/24 Rx release Nurse's Note: OV 10.17.24 Pt here to establish care with [facility] for constipation, and abdominal pain. Constipation has worsened since recently starting Semaglutide. Gets a spinal tap once a month for intracranial hypertension. Pt had a colonoscopy at 8 years old for rectal bleeding. Gallbladder was removed. [facility] Medical History Intracranial hypertension Seizure Ovarian cyst Depression Anxiety Surgical History S/P CASINO BANKER shunt History of appendectomy History of cholecystectomy Gastric bypass status for obesity H/O: hysterectomy Social History Smoking Status: Current every day smoker tobacco type: e-cigarettes HPI HPI Chief Complaint: constipation Details: LEXIS NGUYEN, is a 39 F who presents to the office today for establishment with [facility]. Pt has had constipation for as long as she can remember. She is s/p gastric bypass in 2013.Since starting semaglutide 2 months ago this has worsened. SHe will have a bm every couple of weeks. She did start taking magnesium daily and miralax every couple days which has helped some. She did have a colonoscopy at age 8 due to rectal bleeding and tells me she had a polyp. She is also having severe abdominal pain when she is constipate. This is a stabbing pain and has sent her to the ED before. SHe is s/p cholecystectomy. SHe does have upper GI complaint of heartburn. This has also been worsening with the semaglutide. She is currently on 20 md of omeprazole. SHe would like to increase the dose CT abd/pelvis 09.12.24; Marked diffuse fecal retention. No definite acute abnormality. ROS Const Constitutional: No fatigue, fever(s) or weight change ENT ENT: No difficulty swallowing Gastro GI: Positive for abdominal pain, constipation, heartburn and nausea/dyspepsia; No belching, bloating, change in bowel habits, change in stool character, coffee ground emesis, cramping, diarrhea, difficulty swallowing, feeling full early, excessive flatus, incontinent of stools, Vomiting blood/hematemesis, Blood in stool, loose stools, Black,tarry stools, pain with swallowing, vomiting or other Musc Musculoskeletal: Positive for joint pain, back pain, muscle cramps, numbness, stiffness, Arthritis, restless legs and leg pain at night Skin Skin: No yellowing of the eye or itchy eyes Neuro Neurology: Positive for numbness, restless legs, tremor(s) and seizures Psych Psychiatric: Positive for anxiety and Positive for depression Endo Endocrine: No fatigue or weight change Aller/Imm Allergy/Immunologic: No itchy eyes Pio/Lymp Hematologic/Lymphatic: No easy bleeding or easy bruising Exam Const General: cooperative and comfortable Nutritional Appearance: average body habitus and well nourished HENMT Head: normal to inspection Ears: hearing grossly normal bilaterally Nose: external nose normal Face and sinus: normal facial exam Mouth: oral mucosae normal Throat: posterior oropharynx normal Eyes General: appearance normal, both eyes and all related structures Neck Neck: normal visual inspecti (more content not included)... Normal [facility] HISTORY PHYSICALon HISTORY PHYSICAL HNO ID: [id number] Author: SAIMA SWANSON APRN.SENIOR SOUS CHEF Service: ? Author Type: Nurse Practitioner Type: H&P Filed: 10/04/2024 07:29 Note Text: [facility] HISTORY AND PHYSICAL EXAMINATION SERVICE DATE: 10/04/2024 SERVICE TIME: 7:28 AM PRIMARY CARE PHYSICIAN: Fede Davis MD Assessment Patient has the following medical conditions which may affect david-operative course: Epilepsy (HCC) Assessment: controlled with meds, last seizure 02/[address] body[address] Follows with dr Thompson neurologist in [facility] (idiopathic intracranial hypertension) Assessment: spinal puncture planned, last one last month Difficult intravenous access Assessment: pt has had multiple midlines and ultrasound guided IV in the past S/P gastric bypass Assessment: 2013 Gastroesophageal reflux disease Assessment: controlled with Omeprazole Major depression, single episode Assessment: controlled with meds per PCP, no current therapist Anxiety Assessment: controlled with meds per PCP, no current therapist Medical marijuana use Assessment: uses daily, last used yesterday Morbid obesity with BMI of 45.0-49.9, adult ([facility]) Assessment: BMI=45 Higgins Activity Status Index: METS: Walk indoors, such as around the house (1.75 METs) Do light work around the house, such as dusting or washing dishes (2.70 METs) Take care of self; that is eating, dressing, bathing, using the toilet (2.75 METs) Walk a block or two on level ground (2.75 METs) Do moderate work around the house, such as vacuuming, sweeping floors, or carrying in groceries (3.50 METs) Do yardwork, such as raking leaves, weeding, or pushing a power mower (4.50 METs) Climb a flight of stairs or walk up a hill (5.50 METs) DASI Score: 23.45 (Treadmill 4-5 days per week 30 minutes per session) Patient denies any chest pain or undue shortness of breath with the above physical activity. Clinical Frailty Scale: 3. Well, with treated comorbid disease STOP-Bang Score: BMI greater than 35 kg/m2 Has a large neck Denies snoring loudly Denies feeling tired, fatigued, or sleepy during the daytime Has not been observed to stop breathing or choking/gasping during sleep Denies having high blood pressure Patient 50 years old or younger Non-male patient STOP-Bang Score: 2 ANESTHESIA FINDINGS: Intubation History: No history of difficult intubation Significant Anesthesia Considerations: potential difficult IV/vein access Airway History: No history of difficult airway I - PHYSICAL EVALUATION AIRWAY Patient intubated: No. Tracheostomy tube not present Mallampati: I. TM distance: >3 FB. Neck ROM: full ROM without neurological symptoms. Mouth opening: adequate. Short neck: yes. Thick neck: no Rangel present: no Lip Bite Test: I Microretrognathia/Micr onagthia/Recessed Chin: No DENTAL Dental findings: teeth intact and missing tooth/teeth. Additional comments: Cracked upper front tooth Missing lower front tooth. II - ANESTHESIA PLAN Anesthetic Plan: other Anesthetic plan additional comments: Anesthesia choice. Beta Poncho Monitoring Plan Post Procedure Analgesic Plan Prepared for Surgery: optimally prepared for surgery. CONSULTS: Patient does not require consults for optimization at this time Planned Anesthetic: other anesthesia choice The Following Tests/Procedures Have Been Initiated: No orders of the defined types were placed in this encounter. This is a virtual visit using archify video visit. It required patient-provider interaction for the medical decision making as documented below. REASON FOR VISIT: Lexis Nguyen is a 39 year old female who is scheduled for Procedure(s) with comments: SPINAL PUNCTURE LUMBAR DIAGNOSTIC (Pending) - with TABBY. No additional lab orders required as this is mainly a therapeutic lumbar puncture Patient states she is a hard stick and needs ultrasound or midline at the request of Dr. Janice Arroyo for consultation. My final recommendation will be communicated back to the requesting physician by way of shared medical record or letter. Subjective The patient has the following: COVID-19 Immunization Status Covid-19 Vaccine (Series Information) Completed 09/09/2024 Imm Admin: COVID-19 vaccine, age 12+ yr (PFIZER-BIONTECH COMIRNATY) 10/25/2023 Imm Admin: COVID-19 vaccine, age 12+ yr, 2022- season (MODERNA) 09/01/2022 Imm Admin: COVID-19 vaccine, age 12+ yr, bivalent (PFIZER-BIONTECH) Only the first 3 history entries have been loaded, but more history exists. CHIEF COMPLAINT: pre-op HPI: 39 year old female with history of IIH, now to have above procedure. Last spinal puncture was last month. Last seizure 02/2023, describes as full body seizure. Follows every [address] Thompson, neurologist near [place]. Pt denies abdominal pain, nausea, vomiting, fevers or chills. This is a virtual visit. The visit was conduct (more content not included)... Normal [facility] OCT OPTIC NERVE CIRRUS OU (B OTH EYES)on 10-02-2024 [facility] Radiology Study observation (narrative) [facility] OPTIC DISC PHOTO OU (BOTH EY ES)on 10-02-2024 [facility] Radiology Study observation (narrative) [facility] VISUAL FIELD 24-2 OU (BOTH E YES)on 10-02-2024 [facility] Radiology Study observation (narrative) [facility] Octavio 09-20-2024 CNPN Telephone (IRRL) LEXIS NGUYEN ([id number]) 1985 F Date Time Provider Department 09/20/24 MEGAN CHIRINOS IRRDHL During your visit today, we recorded the following information about you: Megan Hodge 09/20/2024 1:49 PM Signed Called patient to confirm LP with TABBY on 09/27 as directed by [facility]. Left voice mail for her to call [phone]. Will schedule and send a Intellikine chart message as well. Allergies As of Date: 09/20/2024 Noted Allergy Reaction NSAIDS (NON-STEROIDAL ANTI-INFLAM*09/02/2015 8 - GI Upset 15 - Contraindication-Medic al Rodríguez* Comments: Because of gastric bypass CAVANAUGH PEPPER 10/12/2019 2 - Rash NORTRIPTYLINE 08/15/2024 14 - Other: See Comments Comments: Tremors GABAPENTIN 05/13/2022 1 - Mental Status Change 14 - Other: See Comments Comments: Tremors PENICILLINS 1985 4 - Hives 2 - Rash Comments: Received IV cefazolin at [facility] in 2018 and 2020 prior to procedures Received IV cefazolin at [facility] in 2018 and 2020 prior to procedures Date Reviewed: 09/15/2024 Reviewed by: Dayna Roland, HARSHAL - Fully Assessed Reason for Visit: Radiology IR [5081] Cmt: LP with TABBY Prescriptions as of 09/20/2024 - SEMAGLUTIDE SUBCUTANEOUS Inject subcutaneously. - lidocaine, PF, (XYLOCAINE) 10 mg/mL (1 %) soln injection 1-10 mL by INTRADERMAL route as needed. For use during PICC/Midline Insertion ONLY. - omeprazole (PRILOSEC) 20 mg capsule Take 1 capsule by mouth once daily. - traMADol (ULTRAM) 50 mg tablet Take 1 tablet by mouth twice daily as needed for pain. - cyanocobalamin (VITAMIN B-12) 1,000 mcg tab Take 1 tablet by mouth once daily. - lacosamide (VIMPAT) 200 mg Take 1 tablet by mouth twice daily. - ARIPiprazole (ABILIFY) 10 mg tablet Take 10 mg by mouth once daily. - nortriptyline (PAMELOR) 75 mg capsule Take 25 mg by mouth once daily. - DULoxetine (CYMBALTA) 60 mg capsule duloxetine 60 mg capsule,delayed release TAKE 1 CAPSULE BY MOUTH TWICE DAILY - Calcium Citrate 250 mg calcium tab Take 1 tablet by mouth once daily. Problem List As Of Date 09/20/2024 Noted Resolved Anxiety [F41.9] 01/12/2023 Epilepsy (HCC) [G40.909] 01/12/2023 Gastroesophageal reflux disease [K21.9] 01/12/2023 Major depression, single episode [F32.9] 01/12/2023 Morbid obesity (HCC) [E66.01] 01/12/2023 IIH (idiopathic intracranial hypertension) [G93*01/12/2023 Difficult intravenous access [Z78.9] 02/16/2023 Morbid obesity with BMI of 45.0-49.9, adult (HC*03/12/2023 Idiopathic intracranial hypertension [G93.2] 03/12/2023 Headaches [R51.9] 03/15/2023 S/P gastric bypass [Z98.84] 04/01/2023 Medical marijuana use [Z79.899] 04/01/2023 Exhausted vascular access [Z45.2] 06/15/2023 Pre-op evaluation [Z01.818] 11/04/2023 Encounter Status:Closed by MEGAN HODGE on 09/20/24 [facility] ANES POSTPROC EVALon ANES POSTPROC EVAL HNO ID: [id number] Author: LEE BLEDSOE MD Service: ? Author Type: Anesthesiologist Type: Anesthesia Postprocedure Evaluation Filed: 09/15/2024 15:23 Note Text: POST ANESTHESIA EVALUATION NOTE : 1985 Procedure Summary Date: 09/15/24 Room / Location: [address] / [place] [facility] Anesthesia Start: 950 Anesthesia Stop: 1045 Procedure: SPINAL PUNCTURE LUMBAR DIAGNOSTIC (Spine) Diagnosis: IIH (idiopathic intracranial hypertension) (IIH (idiopathic intracranial hypertension) [G93.2]) Surgeons: Kenyon Marrero MD Responsible Provider: Lee Bledsoe MD Anesthesia Type: MAC ASA Status: 3 Anesthesia Type: MAC Last Vitals Vitals Value Taken Time BP 103/52 09/15/24 1100 Temp na 09/15/24 1523 HR SpO2 82 09/15/24 1106 Resp 23 09/15/24 1106 SpO2 97 % 10/25/24 1106 Vitals shown include unfiled device data. Post Anesthesia Patient Status Patient Evaluation: bedside. Anticipated Disposition: phase 2 then home. Neurological Status: aware and responsive. Pulmonary Status: breathing comfortably on supplemental oxygen Airway Control: returned to baseline unsupported. Cardiovascular Status: stable. Pain Management: clinically adequate Postoperative Hydration: acceptable. Intraoperative Events: no significant anesthesia events Post Operative Nausea/Vomiting Status: no significant post operative nausea or vomiting Recommendation: continue current plan of care. Anesthesia Observations No Documentation SIGNATURE: Lee Bledsoe MD PATIENT NAME: Lexis Nguyen DATE: September 15, 2024 TIME: 3:23 PM CSN: [id number] Normal [facility] ANES PRE-OPon 09-15-2024 ANES PRE-OP HNO ID: [id number] Author: LEE BLEDSOE MD Service: ? Author Type: Anesthesiologist Type: Anesthesia Preprocedure Evaluation Filed: 09/15/2024 09:58 Note Text: ANESTHESIOLOGY DAY OF SURGERY NOTE : 1985 Procedure Information Anesthesia Start Date/Time: 09/15/24 0951 Procedure: SPINAL PUNCTURE LUMBAR DIAGNOSTIC (Spine) - LP W/ TABBY SPK W/ PT OK PER BILL ON 08/31 Location: [id number] / [place] [facility] Surgeons: Kenyon Marrero MD Estimated body mass index is 46.35 kg/m? as calculated from the following: Height as of 08/22/24: 162.6 cm (5' 4). Weight as of 09/06/24: 122.5 kg (270 lb). Most recent hematocrit and potassium results: Hematocrit 38.9 08/15/2024 Potassium 3.8 10/10/2023 Relevant Problems CARDIO (+) Exhausted vascular access GI (+) Gastroesophageal reflux disease NEURO-PSYCH (+) Epilepsy (HCC) (+) Headaches I - PHYSICAL EVALUATION AIRWAY Patient intubated: No. Tracheostomy tube not present Mallampati: III. TM distance: >3 FB. Neck ROM: full ROM without neurological symptoms. Mouth opening: adequate. Short neck: yes. Thick neck: yes DENTAL Dental findings: teeth intact. II - ANESTHESIA PLAN ASA Score: 3 Anesthetic Plan: MAC The patient is not a current smoker. NPO Status: adequate Beta Poncho Monitoring Plan Monitoring plan: standard ASA. Post Procedure Analgesic Plan Postoperative analgesic plan: multimodal analgesia. Informed Consent Anesthetic risks, benefits, alternatives, personnel and consent discussed: yes. Patient / Responsible Libertarian agrees to proceed: yes Patient / Surrogate agrees to blood products: blood products not planned DNR status not reviewed with patient and/or family prior to surgery. Significant changes in the patient condition since the History and Physical, not otherwise documented in primary service progress note: no. Potential Anesthesia issues that may suggest increased risk of complications or contraindication to planned procedure: potential difficult IV access. Vitals Value Taken Time BP 125/77 09/15/24813 Pulse 92 09/15/24813 Resp 18 09/15/24813 Temp 36.6 ?C (97.8 ?F) 09/15/24813 SpO2 100 % 09/15/24813 Facility-Administered Medications as of 09/15/2024 Medication Dose Route Frequency - [COMPLETED] lidocaine (PF) 10 mg/mL (1 %) 10-100 mg injection (XYLOCAINE) 1-10 mL INTRADERMAL DIRECTED PRN Outpatient Medications as of 09/15/2024 Medication Sig - SEMAGLUTIDE SUBCUTANEOUS Inject subcutaneously. - omeprazole (PRILOSEC) 20 mg capsule Take 1 capsule by mouth once daily. - traMADol (ULTRAM) 50 mg tablet Take 1 tablet by mouth twice daily as needed for pain. - cyanocobalamin (VITAMIN B-12) 1,000 mcg tab Take 1 tablet by mouth once daily. - lacosamide (VIMPAT) 200 mg Take 1 tablet by mouth twice daily. - ARIPiprazole (ABILIFY) 10 mg tablet Take 10 mg by mouth once daily. - DULoxetine (CYMBALTA) 60 mg capsule duloxetine 60 mg capsule,delayed release TAKE 1 CAPSULE BY MOUTH TWICE DAILY - Calcium Citrate 250 mg calcium tab Take 1 tablet by mouth once daily. - lidocaine, PF, (XYLOCAINE) 10 mg/mL (1 %) soln injection 1-10 mL by INTRADERMAL route as needed. For use during PICC/Midline Insertion ONLY. - nortriptyline (PAMELOR) 75 mg capsule Take 25 mg by mouth once daily. I have interviewed and examined the patient. I have reviewed the medical record and/or the pre-anesthesia evaluation, pertinent labs, and test results. This contains updated information obtained within 48 hours of Surgery/Procedure. SIGNATURE: Lee Bledsoe MD PATIENT NAME: Lexis Nguyen DATE: September 15, 2024 TIME: 9:58 AM CSN: [id number] Normal [facility] BRIEF OP NOTon 09-15-2024 BRIEF OP NOT HNO ID: [id number] Author: GEMA VILLAVICENCIO MD Service: Interventional Radiology Author Type: Resident Type: Brief Op Note Filed: 09/15/2024 11:05 Note Text: BRIEF OPERATIVE / PROCEDURE NOTE LOG ID: [id number] SURGERY/PROCEDURE DATE: 09/15/2024 INCISION/PROCEDURE START TIME: 10:15 AM INCISION CLOSE/PROCEDURE END TIME: 10:31 AM SURGEON(S)/PROCEDURALI ST(S) AND SCREEN CUTTER AND TRIMMER(S): Surgeons and Role: * Kenyon Marrero MD - Primary * Gema Villavicencio MD - Resident - Assisting * Tu Wilson MD - Fellow No Additional Staff SURGERY/PROCEDURE(S): Therapeutic lumbar puncture ANESTHESIA: Choice - Anesthesia Consult FINDINGS: Successful therapeutic lumbar puncture ESTIMATED BLOOD LOSS: 0 ml SPECIMENS: None COMPLICATIONS: None CLOSURE TECHNIQUE: Primary PRE-OP/PRE-PROCEDURE DIAGNOSIS: IIH POST-OP/POST-PROCEDURE DIAGNOSIS: Same as Preop SIGNATURE: Gema Villavicencio MD PATIENT NAME: Lexis Nguyen DATE: September 15, 2024 TIME: 11:05 AM [facility] IR LP FOR DRAINAGE (PRESSURE )on 09-15-2024 IR LP FOR DRAINAGE (PRESSURE) * * *Final Report* * * DATE OF EXAM: Sep 15 2024 10:48AM NDA 0853 - IR LP FOR DRAINAGE (PRESSURE) / PROCEDURE REASON: IIH (idiopathic intracranial hypertension) * * * * Physician Interpretation * * * * PROCEDURE: HISTORY: The patient is a 39 years year old Female who presented with idiopathic intracranial hypertension. Consent: Informed consent was obtained for this procedure. Details of informed consent can be found in Epic under the consent tab. General: A) Medication Reconciliation: The patient's medications and allergies were reviewed in the electronic medical record and reconciled to the proposed procedure/treatment. B) Pre-Procedure Medications: Medication #1: None C) Positioning: The patient was placed Left lateral decubitus on the Fluoroscopy table. D) The lumbar dorsal soft tissues. were then sterile prepped and draped. E) Time Out: A time out was performed immediately prior to procedure start with the nursing, anesthesia and interventional team, correctly identifying the name, medical record number, procedure, anatomy (including marking of site and side), patient position, procedure consent form, relevant diagnostic and radiology test results, antibiotic administration, safety precautions, and procedure-specific equipment needs. Timeout Affirmation (if attending not present): Attending present. Timeout Time and Procedure Start Time: 1015 F) Anesthesia Type: administration of local anesthesia. Local Anesthesia: 4 cc 1% Lidocaine G) Anesthesia (moderate sedation) was administered for a total of (see anesthesiology service documentation). H) Patient Monitoring: See anesthesiology service documentation TECHNIQUE/RESULT: A) Access Site: 15 cm 20 gauge spinal needle from a left paramedian approach at the L3-L4 level. Laminectomy defect present: no. Laminectomy defect traversed: Not applicable B) Counting reference: Lumbosacral junction. For the purposes of this report, L4-5 is considered the level of the iliac crest. C) Procedure Details: Using sterile procedure, local anesthesia was introduced to the skin and subcutaneous tissues as outlined above. Therapeutic LP Details: Therapeutic Volume: 16 ml of CSF was withdrawn in a sterile fashion from the subarachnoid space and forwarded to the laboratory for analysis. No contrast was administered Opening pressure was recorded at 32 cm H2O Closing pressure was recorded at 15 cm H2O CSF Color: Clear D) Estimated Blood Loss: 0 mls E) Type of Removed Specimens: CSF F) Number of Specimens: None Fluoroscopic Radiation Summary: Plane A, Air Kerma: 9.2 mGy Dose Area Product (DAP): 08193.4 mGy*cm2 Fluoro time: 1:54 min:sec Post-Procedure: Conclusion: The patient was transferred to the Radiology Recovery Room in stable condition and observed for approximately 60 minutes. Immediate Complications: None ([id number]). Procedure End Time and Sign Out Time: 1031 IMPRESSION: TECHNICALLY SUCCESSFUL THERAPEUTIC LUMBAR PUNCTURE. Attending Physician: Dr. Kenyon Marrero. Home Care Attendant: Gema Villavicencio and Tu Wilson The procedure was performed by the: the retirement assistant, and the attending radiologist was present for all critical and elias portions of the procedure, and was immediately available to furnish services during the entire procedure. The attending radiologist performed the following procedural activities: Supervised elias portions of the procedure, not scrubbed Heel Nailing Machine Operator: MILI Transcribe Date/Time: Sep 15 2024 11:08A Dictated by : GEMA VILLAVICENCIO MD This examination was interpreted and the report reviewed and electronically signed by: KENYON MARRERO MD on Sep 15 2024 11:27AM EST Normal [facility] NURSING PROGon 09-15-2024 NURSING PROG HNO ID: [id number] Author: BOLIVAR MICHELLE RN Service: Nursing Author Type: Registered Nurse Type: Nursing Progress Note Filed: 09/18/2024 08:47 Note Text: Completed post procedure phone call. Lexis is feeling well and has returned to her baseline diet and activity. Denies questions or concerns related to her LP appointment on 09/15/2024 and had no surgical site concerns. Bolivar Michelle RN [facility] PT EDon 09-15-2024 PT ED HNO ID: [id number] Author: CHRIS TREVINO LPN Service: PICC Team Author Type: LICENSED NURSE Type: Patient Education Filed: 09/15/2024 09:14 Note Text: PATIENT EDUCATION TOPIC: PROCEDURE / SURGERY: Procedure/Surgery: midline PATIENT NAME: Lexis Nguyen PATIENT LOCATION: JY63-Tmbrll/WO52-Jegof p READINESS TO LEARN COGNITIVE ABILITY: Alert and oriented MOTIVATION TO LEARN: Interested FAMILY SUPPORT: High - Very involved in pt care INSTRUCTION PROVIDED TO: Patient and family member PATIENT LEARNS BEST BY: Individual Instruction FACTORS AFFECTING LEARNING: None PHYSICAL LIMITATIONS AFFECTING LEARNING: None LEARNING RESPONSE DIAGNOSIS: ADULT: midline PATIENT/FAMILY RESPONSE: Verbalizes understanding of: midline METHOD OF INSTRUCTION: Individual instruction FOLLOW-UP PLAN: Complete - No need for follow-up INSTRUCTIONAL AIDS USED: NA SUPPLEMENTAL MATERIAL PROVIDED TO PATIENT: Title of booklet / pamphlet: midline REFERRAL (RECOMMENDATION): None Electronically Signed By: Chris Trevino [facility] Abdomen/Pelvis without Conto n 09-12-2024 Abdomen/Pelvis without Cont [facility] Imaging Services [address] [place] [id number] Abdomen/Pelvis without Cont MR#: [id number] Acct: [id number] Name: LEXIS NGUYEN Rep #: [id number] : 1985 F 39 From: Darrell dill MD PCP: Dr. Fede Davis MD Status: REG ER Study: Abdomen/Pelvis without Cont Date of Exam: 08/23 01/15 Exam# [id number] Ordering Dr: Farideh Desouza DO [id number] STUDY: CT ABDOMEN AND PELVIS WITHOUT CONTRAST REASON FOR EXAM: Female, 39 years old. Pain RADIATION DOSAGE (If Supplied By Facility): CTDIvol = ( 23.23 ) mGy, DLP = ( 1282.72 ) mGycm TECHNIQUE: Transaxial images were obtained from the dome of the diaphragm to the symphysis pubis without oral contrast, and without intravenous contrast. Sagittal and coronal images were reconstructed. Individualized dose optimization techniques were used for this CT. COMPARISON: June 18, 2024. FINDINGS: The visualized lung bases are unremarkable. The visualized portions of the heart are within normal limits. Normal liver. There are surgical clips in the gallbladder fossa consistent with a prior cholecystectomy. Normal spleen. Normal pancreas. Normal bilateral adrenal glands. Normal right kidney. Normal left kidney. Evaluation of the GI tract is limited by absence of oral contrast. There has been gastric bypass. No dilated loops of bowel or evidence for obstruction. Cannot exclude segmental thickening of the wang of the small or large bowel. Cannot exclude enteritis or colitis. Marked diffuse fecal retention. Suggestion of previous appendectomy. Normal abdominal aorta. Normal inferior vena cava. Normal retroperitoneum. Normal urinary bladder. There is absence of the uterus consistent with a prior hysterectomy. Normal abdominal wall. Normal osseous structures. CT/Abdomen/Pelvis without Cont IMPRESSION: Marked diffuse fecal retention. No definite acute abnormality. Electronically Signed: Darrell Caldera MD at 17:40 EDT , CC: Dr. Fede Davis MD; Dr. Farideh Desouza DO Heel Nailing Machine Operator: Signed Normal [facility] CBC W/Diff, Automatedon 10-2 Absolute Lymph 1.95 X10 3/uL Normal 0.83-4.51 [facility] Comment on above: Performed By: #### L 100.0100, L500.4050, L501.2450 ####[facility] [address] [place], [address] Absolute Neut 5.5 X10 3/uL Normal 2.0-7.7 [facility] Comment on above: Performed By: #### L 100.0100, L500.4050, L501.2450 ####[facility] [address] [place], [address] Basophils/100 WBC (Bld) 0.5 % Normal 0-1 [facility] Comment on above: Performed By: #### L 100.0100, L500.4050, L501.2450 ####[facility] [address] [place], [address] Eosinophils/100 WBC (Bld) 1.2 % Normal 0-5 [facility] Comment on above: Performed By: #### L 100.0100, L500.4050, L501.2450 ####[facility] [address] [place], [address] Erythrocyte distribution width (RBC) [Ratio] 14.5 % Normal 11.6-14.6 [facility] Comment on above: Performed By: #### L 100.0100, L500.4050, L501.2450 ####[facility] [address] [place], [address] Hematocrit (Bld) [Volume fraction] 40.9 % Normal 37-47 [facility] Comment on above: Performed By: #### L 100.0100, L500.4050, L501.2450 ####[facility] [address] [place], [address] Hemoglobin (Bld) [Mass/Vol] 13.4 g/dL Normal 12.0-15.0 [facility] Comment on above: Performed By: #### L 100.0100, L500.4050, L501.2450 ####[facility] [address] [place], [address] IG% 0.400 Normal 0.0-0.9 [facility] Comment on above: Result Comment: IG% - Immature Granulocytes (promyelocytes, myelocytes and metamyelocytes) > 1% indicates that a LEFT SHIFT is Present. Performed By: #### L 100.0100, L500.4050, L501.2450 ####[facility] [address] [place], [address] Lymphocytes/100 WBC (Bld) 23.9 % Normal 19-41 [facility] Comment on above: Performed By: #### L 100.0100, L500.4050, L501.2450 ####[facility] [address] [place], [address] MCH (RBC) [Entitic mass] 29.9 pg Normal 27.0-32.0 [facility] Comment on above: Performed By: #### L 100.0100, L500.4050, L501.2450 ####[facility] [address] [place], [address] MCHC (RBC) [Mass/Vol] 32.8 g/dL Normal 32-36 [facility] Comment on above: Performed By: #### L 100.0100, L500.4050, L501.2450 ####[facility] [address] [place], [address] MCV (RBC) [Entitic vol] 91.3 fL Normal 81-99 [facility] Comment on above: Performed By: #### L 100.0100, L500.4050, L501.2450 ####[facility] [address] [place], [address] Monocytes/100 WBC (Bld) 6.4 % Normal 0-10 [facility] Comment on above: Performed By: #### L 100.0100, L500.4050, L501.2450 ####[facility] [address] [place], [address] Neutrophils/100 WBC (Bld) 67.6 % Normal 47-70 [facility] Comment on above: Performed By: #### L 100.0100, L500.4050, L501.2450 ####[facility] [address] [place], [address] Nucleated RBC (Bld) [#/Vol] 0 10*3/uL Normal 0-5 [facility] Comment on above: Performed By: #### L 100.0100, L500.4050, L501.2450 ####[facility] [address] [place], [address] Platelet mean volume (Bld) [Entitic vol] 11.2 fL Normal 6.2-12.0 [facility] Comment on above: Performed By: #### L 100.0100, L500.4050, L501.2450 ####[facility] [address] [place], [address] Platelets (Bld) [#/Vol] 284 10*3/uL Normal 150-450 [facility] Comment on above: Performed By: #### L 100.0100, L500.4050, L501.2450 ####[facility] [address] [place], [address] RBC (Bld) [#/Vol] 4.48 10*6/uL Normal 4.2-5.4 [facility] Comment on above: Performed By: #### L 100.0100, L500.4050, L501.2450 ####[facility] [address] [place], [address] RDW SD 48.2 fl High 35.1-43.9 [facility] Comment on above: Performed By: #### L 100.0100, L500.4050, L501.2450 ####[facility] [address] [place], [address] WBC (Bld) [#/Vol] 8.2 10*3/uL Normal 4.4-11.0 [facility] Comment on above: Performed By: #### L 100.0100, L500.4050, L501.2450 ####[facility] [address] [place], [address] [facility] Metabolic [facility] 09-12-2024 Albumin [Mass/Vol] 3.1 g/dL Low 3.2-5.0 [facility] Comment on above: Performed By: #### L 100.0100, L500.4050, L501.2450 ####[facility] [address] [place], [address] Albumin/Globulin [Mass ratio] 1.0 {ratio} Normal 0.9-2.4 [facility] Comment on above: Performed By: #### L 100.0100, L500.4050, L501.2450 ####[facility] [address] [place], [address] ALK P 95 U/L Normal 45-117 [facility] Comment on above: Performed By: #### L 100.0100, L500.4050, L501.2450 ####[facility] [address] [place], [address] ALT [Catalytic activity/Vol] 37 U/L Normal 13-56 [facility] Comment on above: Performed By: #### L 100.0100, L500.4050, L501.2450 ####[facility] [address] [place], [address] AST [Catalytic activity/Vol] 15 U/L Normal 15-37 [facility] Comment on above: Performed By: #### L 100.0100, L500.4050, L501.2450 ####[facility] [address] [place], [address] Bilirubin [Mass/Vol] 0.30 mg/dL Normal 0.20-1.00 [facility] Comment on above: Result Comment: For patients on eltrombopag therapy, use of Dimension [place] TBIL is not recommended. Performed By: #### L 100.0100, L500.4050, L501.2450 ####[facility] [address] [place], [address] BUN/CRE 19.1 RATIO Normal 10-20 [facility] Comment on above: Performed By: #### L 100.0100, L500.4050, L501.2450 ####[facility] [address] [place], [address] CA,Total 7.9 mg/dL Low 8.5-10.1 [facility] Comment on above: Performed By: #### L 100.0100, L500.4050, L501.2450 ####[facility] [address] [place], [address] Chloride [Moles/Vol] 111 mmol/L High 98-107 [facility] Comment on above: Performed By: #### L 100.0100, L500.4050, L501.2450 ####[facility] [address] [place], [address] CO2 [Moles/Vol] 24.0 mmol/L Normal 21.0-32.0 [facility] Comment on above: Performed By: #### L 100.0100, L500.4050, L501.2450 ####[facility] [address] [place], [address] Creatinine [Mass/Vol] 0.58 mg/dL Normal 0.55-1.02 [facility] Comment on above: Result Comment: The validity of the calculated GFR GFRAA in patients over 70 years has not been determined. Clinical correlation is essential. Performed By: #### L 100.0100, L500.4050, L501.2450 ####[facility] [address] [place], [address] ECRCL 167.81 ml/min Normal [facility] Comment on above: Performed By: #### L 100.0100, L500.4050, L501.2450 ####[facility] [address] [place], [address] EST GFR - AA 150 mL/min Normal >60 [facility] Comment on above: Result Comment: Afri can Swiss GFR Calc Performed By: #### L 100.0100, L500.4050, L501.2450 ####[facility] [address] [place], [address] GAP 6 Normal 5-15 [facility] Comment on above: Performed By: #### L 100.0100, L500.4050, L501.2450 ####[facility] [address] [place], [address] GFR/1.73 sq M.predicted among non-blacks MDRD (S/P/Bld) [Vol rate/Area] 124 mL/min/{1.73_m2} Normal >60 [facility] Comment on above: Result Comment: Non- GFR Calc Performed By: #### L 100.0100, L500.4050, L501.2450 ####[facility] [address] [place], [address] Globulin (S) [Mass/Vol] 3.0 g/dL Normal 2.2-4.2 [facility] Comment on above: Performed By: #### L 100.0100, L500.4050, L501.2450 ####[facility] [address] [place], [address] Glucose [Mass/Vol] 83 mg/dL Normal 74-106 [facility] Comment on above: Performed By: #### L 100.0100, L500.4050, L501.2450 ####[facility] [address] [place], [address] Potassium [Moles/Vol] 3.7 mmol/L Normal 3.5-5.1 [facility] Comment on above: Performed By: #### L 100.0100, L500.4050, L501.2450 ####[facility] [address] [place], [address] Sodium [Moles/Vol] 141 mmol/L Normal 136-145 [facility] Comment on above: Performed By: #### L 100.0100, L500.4050, L501.2450 ####[facility] [address] [place], [address] T PROT 6.1 g/dL Low 6.4-8.2 [facility] Comment on above: Performed By: #### L 100.0100, L500.4050, L501.2450 ####[facility] [address] [place], [address] Urea nitrogen [Mass/Vol] 11 mg/dL Normal 7-18 [facility] Comment on above: Performed By: #### L 100.0100, L500.4050, L501.2450 ####[facility] [address] [place], [address] Emergency Department Summary on 09-12-2024 Emergency Department Summary [facility] Medical Records Department [address] [place] [address] Emergency Department Summary 09/12/24 MR#: [id number] Acct: [id number] Name: LEXIS NGUYEN Rep #: [id number] : 1985 39 From: Farideh Desouza DO PCP: Dr. Fede Davis MD Status:DEP ER Location: ED HPI HPI - GI History of Present Illness Chief Complaint: Constipation Informant: patient Narrative Narrative: Patient is a 39-year-old female presenting with worsening constipation and abdominal pain. She states has not had a bowel meant for the past month. She specifies that she has passed very small hard balls of stool over the past few days but nothing else. She has been passing gas. She has had increased periumbilical abdominal pain over the past 2 days that is significantly worse today. Has nausea and gagging but no vomiting. Had an outpatient x-ray which is concerning for fecal impaction she was sent to the ER. Has a history of multiple abdominal surgeries including gastric bypass (Krystal-en-Y), hysterectomy, cholecystectomy and appendectomy. History of multiple jwqq-qjy-bzroeux medications including magnesium citrate, MiraLAX, Colace, Linzess and Metamucil with no relief. Is not tried any enemas. Has never had constipation to this degree in the past. No other complaints or concerns reported at this time. No fever reported [facility] Medical History Intracranial hypertension Seizure Ovarian cyst Depression Anxiety Home Medications ???Medication ???Instructions ???Recorded ???Last Taken ???Type Cymbalta 60 mg PO/SL BID 07/05/22 Unknown History Vimpat 150 mg PO/SL BID 07/05/22 Unknown History aripiprazole 5 mg tablet 5 mg PO QHS 07/05/22 Unknown History lorazepam 0.5 mg tablet 0.5 mg PO DAILY PRN PRN Anxiety 07/05/22 Unknown History nortriptyline 75 mg capsule 75 mg PO DAILY 07/05/22 Unknown History omeprazole 20 mg PO/SL DAILY 07/05/22 Unknown History tramadol 50 mg tablet 50 mg PO PRN PRN Pain 07/05/22 Unknown History magnesium citrate 300 ml PO X1 #1 BOTTLE 06/18/24 Unknown Rx dicyclomine 10 mg capsule 20 mg (2 x 10 mg) PO TID PRN 09/12/24 Unknown Rx abdominal pain #20 CAPSULES lactulose 10 gram/15 mL (15 mL) 15 ml PO BID PRN constipation #300 09/12/24 Unknown Rx oral solution mL Allergy/AdvReac Type Severity Reaction Status Date / Time nortriptyline Allergy Intermediate TREMORS Verified 09/12/24 14:43 pepper (genus Capsicum) Allergy Mild Rash Verified 09/12/24 14:43 Penicillins Allergy Rash Verified 09/12/24 14:43 gabapentin AdvReac TREMORS Verified 09/12/24 14:43 NSAIDS (Non-Steroidal AdvReac GASTRIC Verified 09/12/24 14:43 Anti-Inflamma BYPASS Surgical History S/P [employer] shunt History of appendectomy History of cholecystectomy Gastric bypass status for obesity H/O: hysterectomy Social History Smoking Status: Current every day smoker tobacco type: e-cigarettes ROS ROS ED Constitutional Constitutional ED: Denies chills or fever(s) Cardiovascular Cardiovascular: Denies chest pain Respiratory/Chest Respiratory/Chest: Denies dyspnea Gastrointestinal Gastrointestinal: Reports abdominal pain, constipation and nausea; Denies vomiting Genitourinary Genitourinary ED: Denies dysuria or hematuria Musculoskeletal Musculoskeletal: Denies arthralgias or myalgias Integumentary Denies rash Neurologic Neurologic: Denies weakness Hematologic/Lymphatic Hematologic/Lymphatic: Denies easy bleeding or easy bruising EXAM Physical Exam Const Vital Signs: 09/12/24 14:43 09/12/24 16:41 09/12/24 17:57 Temperature 96.6 F L Temperature Source Temporal Pulse Rate 112 H 78 79 Respiratory Rate 16 16 16 Blood Pressure 138/91 H 132/82 H 115/77 Blood Pressure Mean 106 98 89 Pulse Ox 98 96 95 Oxygen Delivery Method Room Air Room Air 09/12/24 18:52 Temperature Temperature Source Pulse Rate 85 Respiratory Rate 16 Blood Pressure 115/75 Blood Pressure Mean 88 Pulse Ox 96 Oxygen Delivery Method Room Air Positive well nourished and well developed General Appearance ED: well developed and NAD; Negative for pallor HEENT Reports moist mucous membranes Neck supple Resp normal respiratory effort and clear to auscultation bilaterally Cardio regular rate and regular rhythm GI GI Narrative: Chaperoned rectal exam performed. No stool in the vault appreciated. No fecal impaction. Auscultation: hypoactive bowel sounds Palpation: soft and tender periumbilical; Negative for guarding Extremity full ROM Psych mental status grossly normal Mood Affect: tearful Skin no wounds General Skin Exam: (more content not included)... Normal [facility] Lactic Acidon 09-12-2024 Lactate [Moles/Vol] 0.8 mmol/L Normal 0.4-1.9 [facility] Comment on above: Order Comment: Y Performed By: #### L 503.6005 ####[facility] [address] [place], [place], [id number] Lipaseon 09-12-2024 Lipase [Catalytic activity/Vol] 55 U/L Normal 13-75 [facility] Comment on above: Result Comment: Laure deras note: LIPASE revised reference range effective 23. New Lipase methodology. Expected to produce lower values than the previous assay method. NEW Reference Range: 13 - 75 U/L Performed By: #### L 100.0100, L500.4050, L501.2450 ####[facility] [address] [place], [place], [phone] ,Serum,hCG Quali.on 09-12-2024 HCG, SERUM QUAL Negative Normal [facility] Comment on above: Performed By: #### L 700.6800 ####[facility] [address] [place], [place], [phone] Urinalysis, Completeon 09-12 BACTERIA RARE Normal None Seen [facility] Comment on above: Order Comment: CLEAN CATCH Performed By: #### L 400.0001 ####[facility] [address] [place], [address] EPI,SQUAMOUS 0-5 SEEN Normal 5-10 [facility] Comment on above: Order Comment: CLEAN CATCH Performed By: #### L 400.0001 ####[facility] [address] [place], [address] WBC 0-5 SEEN Normal 0-5 [facility] Comment on above: Order Comment: CLEAN CATCH Performed By: #### L 400.0001 ####[facility] [address] [place], [address] Mucus Ql (Urine sed) 0 SEEN Normal [facility] Comment on above: Order Comment: CLEAN CATCH Performed By: #### L 400.0001 ####[facility] [address] [place], [address] RBC 0 SEEN Normal 0-5 [facility] Comment on above: Order Comment: CLEAN CATCH Performed By: #### L 400.0001 ####[facility] [address] [place], [address] Abdomen Single Viewon 2023 Abdomen Single View [facility] Imaging Services [address] [place] [address] Abdomen Single View MR#: [id number] Acct: [id number] Name: LEXIS NGUYEN Rep #: [id number] : 1985 F 39 From: Geronimo Amin DO PCP: Dr. Fede Davis MD Status: REG CLI Study: Abdomen Single View Date of Exam: 09/11/24 Exam# [id number] Ordering Dr: Fede Davis [place] [id number] STUDY: X-RAY - ABDOMEN/PELVIS REASON FOR EXAM: Female, 39 years old. severe constipation x3 weeks TECHNIQUE: COMPARISON: None. FINDINGS: Normal visualized lung bases. There is an unremarkable bowel gas pattern. Diffuse colonic fecal retention. There is no demonstrated free abdominal air. Surgical clips in the right upper quadrant. Normal soft tissue structures. Normal visualized osseous structures. RAD/Abdomen Single View IMPRESSION: Diffuse colonic fecal retention. Electronically Signed: Geronimo Amin DO at 16:17 EDT , CC: Dr. Fede Davis MD Heel Nailing Machine Operator: Signed Normal [facility] ED NOTEon 09-06-2024 ED NOTE HNO ID: [id number] Author: MELISSA WEBB ST Service: Behavioral Health Author Type: General Engineering Teacher Type: ED Notes Filed: 09/06/2024 22:16 Note Text: Patient very tearful in triage during revitals wanting to know how long it is going to be until she gets back to know if it is even worth it. Once revitals were complete and this tech told patient that was all that was needed at this time and to go back to the waiting room for now. Patient stormed out crying, and stomping feet. Normal [facility] ED Triage Noteon 09-06-2024 ED Triage Note HNO ID: [id number] Author: SERENA TSANG APRN.FER Service: ? Author Type: Nurse Practitioner Type: ED Triage Notes Filed: 09/06/2024 19:16 Note Text: ED TRIAGE PROVIDER NOTE Patient Name: Lexis Nguyen Service Date: 09/06/24 BRIEF HPI: This is a 39 year old female who presents to the ED with: abdominal pain constipation x 3.5 weeks. Ended up having incrased pain now not able to pass gas. Complaining of nausea chills no fever BRIEF EXAM: NAD Awake and Alert Non labored breathing No focal neurological deficits Diffuse abdominal pain INITIAL WORKUP AND DECISION MAKING: Orders Placed This Encounter XR ABDOMEN 2V ROUTINE SUPINE W UPRIGHT/DECUB/CTL COMP METABOLIC PANEL LIPASE BLD CBC + DIFF Urinalysis w Microscopic, reflex Culture HCG QUALITATIVE URINE SIGNATURE: Serena Tsang APRN.SENIOR SOUS CHEF Normal [facility] HCG Preg Ur Qlon 09-06-2024 HCG ( test) Ql (U) Negative Normal Negative [facility] Comment on above: Order Comment: Speci men Type: URINE SPECIMENOrdering Facility: [facility] Address: [address] [place] [address] Result Comment: This test is intended to aid in the early detection of . Very dilute urine samples, as indicated by a low specific gravity, may not contain patient accounting representative levels of hCG. This test detects intact hCG only. This test does not reliably detect hCG degradation products, including free-beta subunit and beta-core fragment. Therefore, this test may show reduced reactivity in urine after 8 weeks gestation. A number of conditions other than , including trophoblastic disease and certain non-trophoblastic neoplasms cause elevated levels of hCG. As with any assay employing mouse antibodies, the possibility exists for interference by human anti-mouse antibodies (HAMA) in the specimen. The test provides a presumptive diagnosis for . Performed By: #### 2 106-3 ####[facility] [id number] [place] [address] [place] Urinalysis complete panel (U )on 09-06-2024 Bilirubin Ql (U) Negative Normal Negative [facility] Comment on above: Order Comment: Speci men Type: URINE SPECIMEN Ordering Facility: [facility] Address: [address] [place] [address] Performed By: #### 2 4356-8 #### [facility] CLIA [id number] [address] [place] Clarity (Unsp spec) Clear Normal Clear [facility] Comment on above: Order Comment: Speci men Type: URINE SPECIMEN Ordering Facility: [facility] Address: [address] [place] [address] Performed By: #### 2 4356-8 #### [facility] CLIA [id number] [address] [place] [address] Color (U) Light Yellow Normal yellow [facility] Comment on above: Order Comment: Speci men Type: URINE SPECIMEN Ordering Facility: [facility] Address: [address] [place] [address] Performed By: #### 2 4356-8 #### [facility] CLIA [id number] [address] Epithelial cells LM.HPF (Urine sed) [#/Area] Few Normal [facility] Comment on above: Order Comment: Speci men Type: URINE SPECIMEN Ordering Facility: [facility] Address: [address] [place] [address] Performed By: #### 2 4356-8 #### [facility] CLIA [id number] [address] Glucose Test strip (U) [Mass/Vol] Negative Normal Trace, Negative [facility] Comment on above: Order Comment: Speci men Type: URINE SPECIMEN Ordering Facility: [facility] Address: [address] [place] [address] Performed By: #### 2 4356-8 #### [facility] CLIA [id number] [address] [place] Hemoglobin Ql (U) Negative Normal Negative, Trace [facility] Comment on above: Order Comment: Speci men Type: URINE SPECIMEN Ordering Facility: [facility] Address: [address] [place] [address] Performed By: #### 2 4356-8 #### [facility] CLIA [id number] [address] [place] Ketones Ql (U) Trace Normal Negative, Trace [facility] Comment on above: Order Comment: Speci men Type: URINE SPECIMEN Ordering Facility: [facility] Address: [address] [place] [address] Performed By: #### 2 4356-8 #### [facility] CLIA [id number] [address] Leukocyte esterase Test strip Ql (U) Negative Normal Negative, 25 Ruby/uL [facility] Comment on above: Order Comment: Speci men Type: URINE SPECIMEN Ordering Facility: [facility] Address: [address] [place] [address] Performed By: #### 2 4356-8 #### [facility] CLIA [id number] [address] [place] Nitrite Ql (U) Negative Normal Negative [facility] Comment on above: Order Comment: Speci men Type: URINE SPECIMEN Ordering Facility: [facility] Address: [address] [place] [address] Performed By: #### 2 4356-8 #### [facility] CLIA [id number] [address] [place] pH (U) 5.5 [pH] Normal 5.0-8.0 [facility] Comment on above: Order Comment: Speci men Type: URINE SPECIMEN Ordering Facility: [facility] Address: [address] [place] [address] Performed By: #### 2 4356-8 #### [facility] CLIA [id number] [address] Protein (U) [Mass/Vol] Negative Normal Trace , Negative [facility] Comment on above: Order Comment: Speci men Type: URINE SPECIMEN Ordering Facility: [facility] Address: [address] [place] [address] Performed By: #### 2 4356-8 #### [facility] CLIA [id number] [address] RBC LM.HPF (Urine sed) [#/Area] 0-3 /HPF Normal 0-3 /HPF [facility] Comment on above: Order Comment: Speci men Type: URINE SPECIMEN Ordering Facility: [facility] Address: [address] [place] [address] Performed By: #### 2 4356-8 #### [facility] CLIA [id number] [address] Specific gravity (U) [Rel density] 1.012 Normal 1.005-1.030 [facility] Comment on above: Order Comment: Speci men Type: URINE SPECIMEN Ordering Facility: [facility] Address: [address] [place] [address] Performed By: #### 2 4356-8 #### [facility] CLIA [id number] [address] [place] Urobilinogen Ql (U) Normal Normal Normal [facility] Comment on above: Order Comment: Speci men Type: URINE SPECIMEN Ordering Facility: [facility] Address: [address] [place] [address] Performed By: #### 2 4356-8 #### [facility] CLIA [id number] [address] [place] WBC LM.HPF (Urine sed) [#/Area] 0-5 /HPF Normal 0-5 /HPF [facility] Comment on above: Order Comment: Speci men Type: URINE SPECIMEN Ordering Facility: [facility] Address: [address] [place] [address] Performed By: #### 2 4356-8 #### [facility] CLIA [id number] [address] [place] XR ABD 2V SUPINE W UPR/DECUB /CTLon 09-06-2024 XR ABD 2V SUPINE W UPR/DECUB/CTL * * *Final Report* * * DATE OF EXAM: Sep 06 2024 7:57PM AKX 5356 - XR ABD 2V SUPINE W UPR/DECUB/CTL / PROCEDURE REASON: Abdominal pain, acute * * * * Physician Interpretation * * * * XR ABD 2V SUPINE W UPR/DECUB/CTL 7:57 PM CLINICAL HISTORY: Abdominal pain, acute COMPARISON: None. TECHNIQUE: XR ABD 2V SUPINE W UPR/DECUB/CTL RESULT: See impression IMPRESSION: Significant stool throughout the colon. No dilated bowel. No free air. Degenerative changes of the spine. Cholecystectomy clips. Heel Nailing Machine Operator: MILI Transcribe Date/Time: Sep 06 2024 9:02P Dictated by : RENEE JEFFERY MD This examination was interpreted and the report reviewed and electronically signed by: RENEE JEFFERY MD on Sep 06 2024 9:03PM EST [id number] Normal [facility] ED NOTEon 08-22-2024 ED NOTE HNO ID: [id number] Author: SARAVANAN SAMSON RN Service: ? Author Type: Registered Nurse Type: ED Notes Filed: 08/22/2024 14:42 Note Text: Pt is c/o severe abd pain across abd. States hadn't had a BM for 3 weeks and took some laxatives and had good relief, but pain remains. States feels like her stomach is being shredded. C/o nausea. Normal [facility] ANES POSTPROC EVALon 024 ANES POSTPROC EVAL HNO ID: [id number] Author: CHRIS ALVA MD Service: ? Author Type: Anesthesiologist Type: Anesthesia Postprocedure Evaluation Filed: 08/15/2024 12:16 Note Text: POST ANESTHESIA EVALUATION NOTE : 1985 Procedure Summary Date: 08/15/24 Room / Location: [address] / [facility] Anesthesia Start: 823 Anesthesia Stop: 922 Procedure: SPINAL PUNCTURE LUMBAR DIAGNOSTIC (Spine) Diagnosis: IIH (idiopathic intracranial hypertension) (IIH (idiopathic intracranial hypertension) [G93.2]) Surgeons: Robin Abraham MD, MD Responsible Provider: Chris Alva MD Anesthesia Type: general ASA Status: 3 Anesthesia Type: general Airway Type: supplemental O2 Last Vitals Vitals Value Taken Time BP 103/56 08/15/24 1001 Temp 36.4 08/15/24 1216 HR SpO2 73 08/15/24 1006 Resp 14 08/15/24 1216 SpO2 99 % 08/15/24 1006 Vitals shown include unfiled device data. Post Anesthesia Patient Status Patient Evaluation: PACU. PACU/ICU Patient Condition: stable. Anticipated Disposition: phase 2 then home. Neurological Status: aware and responsive. Pulmonary Status: breathing comfortably on room air Airway Control: returned to baseline unsupported. Cardiovascular Status: stable. Pain Management: clinically adequate Postoperative Hydration: acceptable. Intraoperative Events: no significant anesthesia events Post Operative Nausea/Vomiting Status: no significant post operative nausea or vomiting Recommendation: further care per PACU/ICU/floor team. Anesthesia Observations No Documentation SIGNATURE: Chris Alva MD PATIENT NAME: Lexis Nguyen DATE: August 15, 2024 TIME: 12:16 PM CSN: [id number] Normal [facility] ANES PRE-OPon 08-15-2024 ANES PRE-OP HNO ID: [id number] Author: CHRIS ALVA MD Service: ? Author Type: Anesthesiologist Type: Anesthesia Preprocedure Evaluation Filed: 08/15/2024 08:38 Note Text: ANESTHESIOLOGY DAY OF SURGERY NOTE : 1985 Procedure Information Anesthesia Start Date/Time: 08/15/24823 Procedure: SPINAL PUNCTURE LUMBAR DIAGNOSTIC (Spine) - TO BE SCHEDULED WITH ANESTHESIA Please check opening pressure and leave within normal limits (~15) No additional lab orders required as this is mainly a therapeutic lumbar puncture Location: [id number] / ANGIO HB6 Surgeons: Robin Abraham MD, MD Estimated body mass index is 48.06 kg/m? as calculated from the following: Height as of 04/23/24: 162.6 cm (5' 4). Weight as of 04/23/24: 127 kg (280 lb). Most recent hematocrit and potassium results: Hematocrit 38.9 08/15/2024 Potassium 3.8 10/10/2023 Relevant Problems CARDIO (+) Exhausted vascular access GI (+) Gastroesophageal reflux disease NEURO-PSYCH (+) Epilepsy (HCC) (+) Headaches I - PHYSICAL EVALUATION AIRWAY Patient intubated: No. Tracheostomy tube not present Mallampati: I. TM distance: >3 FB. Neck ROM: full ROM without neurological symptoms. Mouth opening: adequate. Short neck: yes. Thick neck: yes II - ANESTHESIA PLAN ASA Score: 3 Anesthetic Plan: MAC The patient is not a current smoker. NPO Status: adequate Beta Poncho Monitoring Plan Monitoring plan: standard ASA. Post Procedure Analgesic Plan Postoperative analgesic plan: parenteral or oral opioids. Informed Consent Anesthetic risks, benefits, alternatives, personnel and consent discussed: yes. Patient / Responsible Libertarian agrees to proceed: yes Patient / Surrogate agrees to blood products: Yes Significant changes in the patient condition since the History and Physical, not otherwise documented in primary service progress note: no. Potential Anesthesia issues that may suggest increased risk of complications or contraindication to planned procedure: none. Vitals Value Taken Time BP 119/75 08/15/24 0654 Pulse 80 08/15/24 0654 Resp 16 08/15/2454 Temp 36.6 ?C (97.9 ?F) 08/15/24 0654 SpO2 99 % 08/15/24653 Facility-Administered Medications as of 08/15/2024 Medication Dose Route Frequency [COMPLETED] lidocaine (PF) 10 mg/mL (1 %) 10-100 mg injection (XYLOCAINE) 1-10 mL INTRADERMAL DIRECTED PRN Outpatient Medications as of 08/15/2024 Medication Sig omeprazole (PRILOSEC) 20 mg capsule Take 1 capsule by mouth once daily. traMADol (ULTRAM) 50 mg tablet Take 1 tablet by mouth twice daily as needed for pain. lacosamide (VIMPAT) 200 mg Take 1 tablet by mouth twice daily. ARIPiprazole (ABILIFY) 10 mg tablet Take 10 mg by mouth once daily. DULoxetine (CYMBALTA) 60 mg capsule duloxetine 60 mg capsule,delayed release TAKE 1 CAPSULE BY MOUTH TWICE DAILY SEMAGLUTIDE SUBCUTANEOUS Inject subcutaneously. lidocaine, PF, (XYLOCAINE) 10 mg/mL (1 %) soln injection 1-10 mL by INTRADERMAL route as needed. For use during PICC/Midline Insertion ONLY. cyanocobalamin (VITAMIN B-12) 1,000 mcg tab Take 1 tablet by mouth once daily. nortriptyline (PAMELOR) 75 mg capsule Take 25 mg by mouth once daily. Calcium Citrate 250 mg calcium tab Take 1 tablet by mouth once daily. I have interviewed and examined the patient. I have reviewed the medical record and/or the pre-anesthesia evaluation, pertinent labs, and test results. This contains updated information obtained within 48 hours of Surgery/Procedure. SIGNATURE: Chris Alva MD PATIENT NAME: Lexis Nguyen DATE: August 15, 2024 TIME: 8:38 AM CSN: [id number] Normal [facility] BRIEF OP NOTon 08-15-2024 BRIEF OP NOT HNO ID: [id number] Author: CARLYLE HOFFMANN APRN.SENIOR SOUS CHEF Service: Interventional Radiology Author Type: Nurse Practitioner Type: Brief Op Note Filed: 08/15/2024 09:13 Note Text: BRIEF OPERATIVE / PROCEDURE NOTE LOG ID: [id number] SURGERY/PROCEDURE DATE: 08/15/2024 INCISION/PROCEDURE START TIME: 8:54 AM INCISION CLOSE/PROCEDURE END TIME: 9:07 AM SURGEON(S)/PROCEDURALI ST(S) AND SCREEN CUTTER AND TRIMMER(S): Surgeons and Role: * Robin Abraham MD, MD - Primary * Carlyle Hoffmann APRN.CNP - Proceduralist No Additional Staff SURGERY/PROCEDURE(S): LP ANESTHESIA: Choice - Anesthesia Consult FINDINGS: L3-4. Clear CSF. OP 23. CP 14 ESTIMATED BLOOD LOSS: 0 ml SPECIMENS: None 6 ml CSF removed. None sent to lab COMPLICATIONS: None PRE-OP/PRE-PROCEDURE DIAGNOSIS: IIH (idiopathic intracranial hypertension) [G93.2] POST-OP/POST-PROCEDURE DIAGNOSIS: Same as Preop Patient was accompanied to the next level of care by a licensed practitioner from the surgical team pending completion of this brief op note (or operative note) SIGNATURE: Carlyle Hoffmann APRN.CNP PATIENT NAME: Lexis Nugyen DATE: August 15, 2024 TIME: 9:12 AM Normal [facility] CBC panel Auto (Bld)on 08-15 Erythrocyte distribution width (RBC) [Ratio] 13.9 % Normal 11.5-15.0 [facility] Comment on above: Order Comment: Speci men Type: BLOOD SPECIMENOrdering Facility: [facility] Address: [address] [place] [address] Performed By: #### 5 8410-2 ####[facility] LABCLIA [id number] [place] [address] [place] Hematocrit (Bld) [Volume fraction] 38.9 % Normal 36.0-46.0 [facility] Comment on above: Order Comment: Speci men Type: BLOOD SPECIMENOrdering Facility: [facility] Address: [address] [place] [address] Performed By: #### 5 8410-2 ####[facility]CLIA [id number] [place] [address] [place] Hemoglobin (Bld) [Mass/Vol] 13.0 g/dL Normal 11.5-15.5 [facility] Comment on above: Order Comment: Speci men Type: BLOOD SPECIMENOrdering Facility: [facility] Address: [address] [place] [address] Performed By: #### 5 8410-2 ####[facility]CLIA [id number] [place] [address] [place] MCH (RBC) [Entitic mass] 30.0 pg Normal 26.0-34.0 [facility] Comment on above: Order Comment: Speci men Type: BLOOD SPECIMENOrdering Facility: [facility] Address: [address] [place] [address] Performed By: #### 5 8410-2 ####[facility] LABIA [id number] [place] [address] [place] MCHC (RBC) [Mass/Vol] 33.4 g/dL Normal 30.5-36.0 [facility] Comment on above: Order Comment: Speci men Type: BLOOD SPECIMENOrdering Facility: [facility] Address: [address] [place] [address] Performed By: #### 5 8410-2 ####[facility] LABIA [id number] [place] [address] [place] MCV (RBC) [Entitic vol] 89.6 fL Normal 80.0-100.0 [facility] Comment on above: Order Comment: Speci men Type: BLOOD SPECIMENOrdering Facility: [facility] Address: [address] [place] [address] Performed By: #### 5 8410-2 ####[facility] LABCLIA [id number] [place] [address] [place] Nucleated RBC (Bld) [#/Vol] 10*3/uL Normal <0.01 [facility] Comment on above: Order Comment: Speci men Type: BLOOD SPECIMENOrdering Facility: [facility] Address: [address] [place] [address] Performed By: #### 5 8410-2 ####[facility] LABCLIA [id number] [place] [address] [place] Platelet mean volume (Bld) [Entitic vol] 10.7 fL Normal 9.0-12.7 [facility] Comment on above: Order Comment: Speci men Type: BLOOD SPECIMENOrdering Facility: [facility] Address: [address] [place] [address] Performed By: #### 5 8410-2 ####[facility] LABIA [id number] [place] [address] [place] Platelets (Bld) [#/Vol] 195 10*3/uL Normal 150-400 [facility] Comment on above: Order Comment: Speci men Type: BLOOD SPECIMENOrdering Facility: [facility] Address: [address] [place] [address] Performed By: #### 5 8410-2 ####[facility] LABIA [id number] [place] [address] [place] RBC (Bld) [#/Vol] 4.34 10*6/uL Normal 3.90-5.20 [facility] Comment on above: Order Comment: Speci men Type: BLOOD SPECIMENOrdering Facility: [facility] Address: [address] [place] [address] Performed By: #### 5 8410-2 ####[facility] LABIA [id number] [place] [address] [place] WBC (Bld) [#/Vol] 5.92 10*3/uL Normal 3.70-11.00 [facility] Comment on above: Order Comment: Speci men Type: BLOOD SPECIMENOrdering Facility: [facility] Address: [address] [place] [address] Performed By: #### 5 8410-2 ####[facility] LABIA [id number] [place] [address] [place] IR LP FOR DRAINAGE (PRESSURE )on 08-15-2024 IR LP FOR DRAINAGE (PRESSURE) * * *Final Report* * * DATE OF EXAM: Aug 15 2024 9:18AM NDA 0853 - IR LP FOR DRAINAGE (PRESSURE) / PROCEDURE REASON: IIH (idiopathic intracranial hypertension) * * * * Physician Interpretation * * * * PROCEDURE: Therapeutic Lumbar Puncture Under Fluoroscopic Guidance HISTORY: The patient is a 39 years year old Female who presented with idiopathic intracranial hypertension. Consent: The risks, benefits, treatment options, potential complications, equipment, and personnel to be involved were discussed (including the risks of radiation exposure, contrast and anesthesia administration) with the patient. All of her questions were answered and standing consent was verified. The patient indicated she was willing to proceed. General: A) Medication Reconciliation: The patient's medications and allergies were reviewed in the electronic medical record and reconciled to the proposed procedure/treatment. B) Pre-Procedure Medications: Medication #1: None C) Positioning: The patient was placed Left lateral decubitis on the Fluoroscopy table. D) The Lumbar dorsal soft tissues. were then sterile prepped and draped. E) Time Out: A time out was performed immediately prior to procedure start with the nursing, anesthesia and interventional team, correctly identifying the name, medical record number, procedure, anatomy (including marking of site and side), patient position, procedure consent form, relevant diagnostic and radiology test results, antibiotic administration, safety precautions, and procedure-specific equipment needs. Timeout Affirmation (if attending not present): PA, RN, and RT present. F) Anesthesia Type: administration of local anesthesia. Local Anesthesia: 5 ml 1% Lidocaine G) Anesthesia Was Administered. See separate dictation. H) Patient Monitoring: anesthesia team TECHNIQUE/RESULT: A) Access Site: 20 gauge, 15 cm spinal needle from a left paramedian approach at the L3-L4 level. B) Counting reference: Lumbosacral junction. For the purposes of this report, L4-5 is considered the level of the iliac crest. C) Procedure Details: Using sterile procedure, local anesthesia was introduced to the skin and subcutaneous tissues as outlined above. Therapeutic LP Details: Under fluoroscopic guidance, the needle was carefully advanced into the lumbar subarachnoid space resulting in free flow of CSF. Therapeutic Volume: 6 ml of CSF was withdrawn in a sterile fashion from the subarachnoid space. No contrast was administered Opening pressure was recorded at 23 cm H2O Closing pressure was recorded at 14 cm H2O CSF Color: Clear D) Estimated Blood Loss: 0 mL E) Type of Removed Specimens: CSF F) Number of Specimens: None Fluoroscopic Radiation Summary: Fluoroscopic guidance was performed in conjunction with the mathematical technician. Plane A, Air Kerma: 4.3 mGy Dose Area Product (DAP): 00715.5 mGy*cm2 Fluoro time: 0:36 min: sec Post-Procedure: Conclusion: The patient was transferred to the Radiology Recovery Room in stable condition and observed for approximately 60 minutes. Immediate Complications: None. Delayed Complications (will be reported as an addendum to the original report): None apparent at this time Timeout Time and Procedure Start Time: 853 Procedure End Time and Sign Out Time: 906 IMPRESSION: TECHNICALLY SUCCESSFUL THERAPEUTIC LUMBAR PUNCTURE. The procedure was performed by BUDDY Reno Heel Nailing Machine Operator: MILI Transcribe Date/Time: Aug 15 2024 9:32A Dictated by : CARLYLE LINK CNP This examination was interpreted and the report reviewed and electronically signed by: CARLYLE LINK CNP on Aug 15 2024 9:37AM EST Normal [facility] NURSING PROGon 08-15-2024 NURSING PROG HNO ID: [id number] Author: LURDES SANCHEZ RN Service: Nursing Author Type: Registered Nurse Type: Nursing Progress Note Filed: 08/16/2024 08:57 Note Text: Completed post procedure phone call. Lexis Nguyen reports surgical site feeling a little sore but otherwise is feeling well and has returned to baseline diet and activity. Ms. Nguyen denies questions or concerns related to LP appointment on 08/15/24 and had no surgical site concerns. Normal [facility] PT EDon 08-15-2024 PT ED HNO ID: [id number] Author: CLIFFORD CARTWRIGHT RN Service: PICC Team Author Type: Registered Nurse Type: Patient Education Filed: 08/15/2024 07:32 Note Text: PATIENT EDUCATION TOPIC: PROCEDURE / SURGERY: Procedure/Surgery: midline PATIENT NAME: Lexis Nguyen PATIENT LOCATION: [id number] p READINESS TO LEARN COGNITIVE ABILITY: Alert and oriented MOTIVATION TO LEARN: Eager FAMILY SUPPORT: None - Unavailable/disinteres brett INSTRUCTION PROVIDED TO: Patient PATIENT LEARNS BEST BY: Individual Instruction FACTORS AFFECTING LEARNING: None PHYSICAL LIMITATIONS AFFECTING LEARNING: None LEARNING RESPONSE DIAGNOSIS: ADULT: midline PATIENT/FAMILY RESPONSE: Information received as demonstrated by interest and questions METHOD OF INSTRUCTION: Individual instruction FOLLOW-UP PLAN: Complete - No need for follow-up INSTRUCTIONAL AIDS USED: NA SUPPLEMENTAL MATERIAL PROVIDED TO PATIENT: None REFERRAL (RECOMMENDATION): None Electronically Signed By: Clifford Webb [facility] ANES POSTPROC EVALon 024 ANES POSTPROC EVAL HNO ID: [id number] Author: LAYO GEORGE MD Service: ? Author Type: Anesthesiologist Type: Anesthesia Postprocedure Evaluation Filed: 07/11/2024 10:25 Note Text: POST ANESTHESIA EVALUATION NOTE : 1985 Procedure Summary Date: 07/11/24 Room / Location: [place] [address] Anesthesia Start: 833 Anesthesia Stop: 936 Procedure: SPINAL PUNCTURE LUMBAR DIAGNOSTIC (Spine) Diagnosis: IIH (idiopathic intracranial hypertension) (IIH (idiopathic intracranial hypertension) [G93.2]) Surgeons: Celia Rogers MD, MD Responsible Provider: Layo George MD Anesthesia Type: MAC ASA Status: 3 Anesthesia Type: MAC Last Vitals Vitals Value Taken Time BP 94/58 07/11/24 1015 Temp 36 07/11/24 1025 Pulse 79 07/11/24 1017 Resp 18 07/11/24 1017 SpO2 100 % 07/11/24 1017 Vitals shown include unfiled device data. Post Anesthesia Patient Status Patient Evaluation: PACU. PACU/ICU Patient Condition: stable. Neurological Status: aware and responsive. Pulmonary Status: breathing comfortably on supplemental oxygen Airway Control: returned to baseline unsupported. Cardiovascular Status: stable. Pain Management: clinically adequate Postoperative Hydration: acceptable. Intraoperative Events: no significant anesthesia events Post Operative Nausea/Vomiting Status: no significant post operative nausea or vomiting Recommendation: continue current plan of care and further care per PACU/ICU/floor team. Anesthesia Observations No Documentation SIGNATURE: Layo George MD PATIENT NAME: Lexis Nguyen DATE: July 11, 2024 TIME: 10:25 AM CSN: [id number] Normal [facility] ANES PRE-OPon 07-11-2024 ANES PRE-OP HNO ID: [id number] Author: LAYO GEORGE MD Service: ? Author Type: Anesthesiologist Type: Anesthesia Preprocedure Evaluation Filed: 07/11/2024 08:10 Note Text: ANESTHESIOLOGY DAY OF SURGERY NOTE : 1985 Procedure Information Date/Time: 07/11/24 08 Procedure: SPINAL PUNCTURE LUMBAR DIAGNOSTIC (Spine) - LP W/ TABBY SPK W/ PT OK PER BILL DATE/TIME ON 05/03 Location: [id number] / [facility] HB6 Surgeons: Celia Rogers MD, MD Estimated body mass index is 48.06 kg/m? as calculated from the following: Height as of 04/23/24: 162.6 cm (5' 4). Weight as of 04/23/24: 127 kg (280 lb). Most recent hematocrit and potassium results: Hematocrit 45.0 10/10/2023 Potassium 3.8 10/10/2023 Relevant Problems No relevant active problems I - PHYSICAL EVALUATION AIRWAY Patient intubated: No. Tracheostomy tube not present Mallampati: II. TM distance: >3 FB. Neck ROM: full ROM without neurological symptoms. Mouth opening: adequate. Short neck: no. Thick neck: yes Additional exam findings: no II - ANESTHESIA PLAN ASA Score: 3 Anesthetic Plan: MAC NPO Status: adequate Beta Poncho Monitoring Plan Monitoring plan: standard ASA. Post Procedure Analgesic Plan Informed Consent Anesthetic risks, benefits, alternatives, personnel and consent discussed: yes. Patient / Responsible Libertarian agrees to proceed: yes Patient / Surrogate agrees to blood products: Yes Potential Anesthesia issues that may suggest increased risk of complications or contraindication to planned procedure: none. Vitals Value Taken Time BP 110/67 07/11/24 0651 Pulse Resp 16 07/11/24 0651 Temp 36.5 ?C (97.7 ?F) 07/11/24 0651 SpO2 97 % 07/11/24 0651 Facility-Administered Medications as of 07/11/2024 Medication Dose Route Frequency lidocaine (PF) 10 mg/mL (1 %) 10-100 mg injection (XYLOCAINE) 1-10 mL INTRADERMAL DIRECTED PRN Outpatient Medications as of 07/11/2024 Medication Sig omeprazole (PRILOSEC) 20 mg capsule Take 1 capsule by mouth once daily. traMADol (ULTRAM) 50 mg tablet Take 1 tablet by mouth twice daily as needed for pain. cyanocobalamin (VITAMIN B-12) 1,000 mcg tab Take 1 tablet by mouth once daily. lacosamide (VIMPAT) 200 mg Take 1 tablet by mouth twice daily. ARIPiprazole (ABILIFY) 10 mg tablet Take 10 mg by mouth once daily. DULoxetine (CYMBALTA) 60 mg capsule duloxetine 60 mg capsule,delayed release TAKE 1 CAPSULE BY MOUTH TWICE DAILY Calcium Citrate 250 mg calcium tab Take 1 tablet by mouth once daily. lidocaine, PF, (XYLOCAINE) 10 mg/mL (1 %) soln injection 1-10 mL by INTRADERMAL route as needed. For use during PICC/Midline Insertion ONLY. nortriptyline (PAMELOR) 75 mg capsule Take 25 mg by mouth once daily. I have interviewed and examined the patient. I have reviewed the medical record and/or the pre-anesthesia evaluation, pertinent labs, and test results. This contains updated information obtained within 48 hours of Surgery/Procedure. SIGNATURE: Layo George MD PATIENT NAME: Lexis Nguyen DATE: July 11, 2024 TIME: 8:09 AM CSN: [id number] Normal [facility] BRIEF OP NOTon 07-11-2024 BRIEF OP NOT HNO ID: [id number] Author: SARAH PRADO PA-C Service: Interventional Radiology Author Type: Physician Home Care Attendant Type: Brief Op Note Filed: 07/11/2024 09:52 Note Text: BRIEF OPERATIVE / PROCEDURE NOTE LOG ID: [id number] SURGERY/PROCEDURE DATE: 07/11/2024 INCISION/PROCEDURE START TIME: 9:00 AM INCISION CLOSE/PROCEDURE END TIME: 9:17 AM SURGEON(S)/PROCEDURALI ST(S) AND SCREEN CUTTER AND TRIMMER(S): Surgeons and Role: * Celia Rogers MD, MD - Primary * Carlyle Hoffmann APRN.FER - Proceduralist * Sarah Prado PA-C - Proceduralist No Additional Staff SURGERY/PROCEDURE(S): therapeutic lumbar puncture with general anesthesia ANESTHESIA: Choice - Anesthesia Consult FINDINGS: L3-4 R paramedian, clear CSF, OP 38, CP 15, 23cc taken and disposed ESTIMATED BLOOD LOSS: 0 ml SPECIMENS: None COMPLICATIONS: None PRE-OP/PRE-PROCEDURE DIAGNOSIS: IIH POST-OP/POST-PROCEDURE DIAGNOSIS: Same as Preop Patient was accompanied to the next level of care by a licensed practitioner from the surgical team pending completion of this brief op note (or operative note) SIGNATURE: Sarah Prado PA-C PATIENT NAME: Lexis Nguyen DATE: July 11, 2024 TIME: 9:24 AM Normal [facility] IR LP FOR DRAINAGE (PRESSURE )on 07-11-2024 IR LP FOR DRAINAGE (PRESSURE) * * *Final Report* * * DATE OF EXAM: Jul 11 2024 9:29AM NDA 0853 - IR LP FOR DRAINAGE (PRESSURE) / PROCEDURE REASON: intracranial hypertension * * * * Physician Interpretation * * * * PROCEDURE: Therapeutic Lumbar Puncture Under Fluoroscopic Guidance HISTORY: The patient is a 39 years year old Female who presented with IIH. Consent: The risks, benefits, treatment options, potential complications, equipment, and personnel to be involved were discussed (including the risks of radiation exposure, contrast and anesthesia administration) with the patient. All questions were answered and serial consent was verified. The patient indicated willingness to proceed. General: A) Medication Reconciliation: The patient's medications and allergies were reviewed in the electronic medical record and reconciled to the proposed procedure/treatment. B) Pre-Procedure Medications: Medication #1: None C) Positioning: The patient was placed Left lateral decubitis on the Fluoroscopy table. D) The Lumbar dorsal soft tissues. were then sterile prepped and draped. E) Time Out: A time out was performed immediately prior to procedure start with the nursing, anesthesia team, and interventional team, correctly identifying the name, medical record number, procedure, anatomy (including marking of site and side), patient position, procedure consent form, relevant diagnostic and radiology test results, antibiotic administration, safety precautions, and procedure-specific equipment needs. Timeout Affirmation (if attending not present): PA, RN, and RT present. F) Anesthesia Type: see separate anesthesia report: Local Anesthesia: 5cc 1% Lidocaine G) Anesthesia Was Administered For A Total Of (see anesthesia report). H) Patient Monitoring: monitored by anesthesia staff TECHNIQUE/RESULT: A) Access Site: 20 gauge spinal needle with a 15 cm length from a right paramedian approach at the L3-L4 level. B) Counting reference: Lumbosacral junction. For the purposes of this report, L4-5 is considered the level of the iliac crest. C) Procedure Details: Using sterile procedure, local anesthesia was introduced to the skin and subcutaneous tissues as outlined above. Therapeutic LP Details: Under fluoroscopic guidance, the needle was carefully advanced into the lumbar subarachnoid space resulting in free flow of CSF. Therapeutic Volume: 23 mL of CSF was withdrawn in a sterile fashion from the subarachnoid space and forwarded to the laboratory for analysis. No contrast was administered Opening pressure was recorded at 38 cm H2O Closing pressure was recorded at 15 cm H2O CSF Color: Clear D) Estimated Blood Loss: trace E) Type of Removed Specimens: CSF for therapeutic purposes F) Number of Specimens: None. Fluoroscopic Radiation Summary: Fluoroscopic guidance was performed in conjunction with the mathematical technician. Plane A, Air Kerma: 15.2 mGy Dose Area Product (DAP): 20714.1 mGy*cm2 Fluoro time: 1:06 min: sec Post-Procedure: Conclusion: The patient was transferred to the Radiology Recovery Room in stable condition and observed for approximately 60 minutes. Immediate Complications: None. Delayed Complications (will be reported as an addendum to the original report): None apparent at this time Timeout Time and Procedure Start Time: 0900 Procedure End Time and Sign Out Time: 0917 IMPRESSION: TECHNICALLY SUCCESSFUL THERAPEUTIC LUMBAR PUNCTURE. Attending Physician: Dr. Rogers Home Care Attendant: None The procedure was performed by Sarah Prado PA-C and Carlyle Hoffmann CNP Heel Nailing Machine Operator: MILI Transcribe Date/Time: Jul 11 2024 11:07A Dictated by : CARLYLE LINK CNP This examination was interpreted and the report reviewed and electronically signed by: CARLYLE LINK CNP on Jul 11 2024 2:22PM EST Normal [facility] NURSING PROGon 07-11-2024 NURSING PROG HNO ID: [id number] Author: KAVYA REMY, RN Service: Nursing Author Type: Registered Nurse Type: Nursing Progress Note Filed: 07/12/2024 08:26 Note Text: Completed post procedure phone call. Lexis Nguyen is feeling well and has returned to her baseline diet and activity. Patient reports lower back soreness. Patient informed to avoid strenuous activity or exercise today. To try OTC tylenol for pain and use cold or hot compress for comfort. Patient verbalizes understanding. Kavya Remy RN Normal [facility] PT EDon 07-11-2024 PT ED HNO ID: [id number] Author: JUDY CLOUD RN Service: ? Author Type: Registered Nurse Type: Patient Education Filed: 07/11/2024 08:52 Note Text: AMBULATORY PATIENT EDUCATION TOPIC: Survival Skills: HEALTH PROMOTION: Self management READINESS TO LEARN COGNITIVE ABILITY: Alert and oriented MOTIVATION TO LEARN: Eager FAMILY SUPPORT: High - Very involved in pt care INSTRUCTION PROVIDED TO: Patient and family member PATIENT LEARNS BEST BY: Verbal Instruction FACTORS AFFECTING LEARNING: None PHYSICAL LIMITATIONS AFFECTING LEARNING: None LEARNING RESPONSE DIAGNOSIS: IIH METHOD OF INSTRUCTION: Verbal instruction PATIENT / FAMILY RESPONSE: Verbalizes understanding of: POST-PROCEDURE INSTRUCTIONS-Correct actions to take to reduce post procedure complications PRE-PROCEDURE INSTRUCTIONS-Correct action to take to follow pre-procedure instructions FOLLOW-UP PLAN: Follow-up with Primary Care SUPPLEMENTAL MATERIAL: None REFERRAL (RECOMMENDATION): None Electronically Signed By: Judy Cloud RN In Department: HOSP MAIN [id number] Normal [facility] Abdomen/Pelvis W IV Cont ONL Yon 06-18-2024 Abdomen/Pelvis W IV Cont ONLY [facility] Imaging Services [address] [place] [address] [id number] Abdomen/Pelvis W IV Cont ONLY MR#: [id number] Acct: [id number] Name: LEXIS NGUYEN Rep #: [id number] : 1985 F 39 From: Jessie Lantigua PCP: Dr. Fede Davis MD Status: REG ER Study: Abdomen/Pelvis W IV Cont ONLY Date of Exam: Exam# [id number] Ordering Dr: Dong Hardwick DO [id number] EXAM: CT ABDOMEN AND PELVIS WITH INTRAVENOUS CONTRAST CLINICAL INDICATION: rt sided abd pain TECHNIQUE: Helically acquired images were obtained of the abdomen and pelvis with intravenous contrast. This CT exam was performed using one or more of the following dose reduction techniques: automated exposure control, adjustment of the mA and/or kV according to patient size, and/or use of iterative reconstruction technique. CONTRAST: IV 100mL Isovue-370 RADIATION DOSE: CTDIvol = 16.96 mGy, DLP = 1267.86 mGy-cm COMPARISON: 8.14.22 FINDINGS: LOWER THORAX: Unremarkable. Lung bases are clear. No cardiomegaly. No significant pericardial effusion. ABDOMEN: LIVER: Enlarged liver. GALLBLADDER AND BILE DUCTS: Cholecystectomy. No intra- or extrahepatic biliary ductal dilation. PANCREAS: Unremarkable. No focal cystic or solid mass. SPLEEN: Unremarkable. Normal size without focal cystic or solid mass. ADRENALS: Unremarkable. No nodules. KIDNEYS AND URETERS: There are no renal calculi. Normal renal size and position. No hydronephrosis. STOMACH AND BOWEL: Gastric bypass changes. No stomach or bowel distention. No focal inflammatory change. PELVIS: APPENDIX: Appendectomy changes. BLADDER: Unremarkable. REPRODUCTIVE: Hysterectomy changes. ABDOMEN and PELVIS: INTRAPERITONEAL SPACE: Unremarkable. No ascites or other fluid collection. No free air. BONES/JOINTS: Unremarkable. No suspicious lytic or blastic abnormality. SOFT TISSUES: Unremarkable. No discrete abdominal or pelvic wall hernia. VASCULATURE: Unremarkable. Abdominal aorta is non-dilated. LYMPH NODES: Unremarkable. No enlarged lymph nodes. CT/Abdomen/Pelvis W IV Cont ONLY IMPRESSION: Enlarged liver. Electronically Signed: Jessie Berger MD at 18:37 EDT Reading Location ID and State: [facility] / [place] , Service support , CC: Dr. Fede Davis MD; Dr. Dong Hardwick DO Heel Nailing Machine Operator: Signed Normal [facility] Basic Metabolic Profile (BMP )on 06-18-2024 BUN/CRE 15.5 RATIO Normal 10-20 [facility] Comment on above: Performed By: #### L 700.6800, L501.2450, L500.3400, L500.2500, L100.0100 #### [facility] Laboratory [facility] [place] [address], [address] CA,Total 8.4 mg/dL Low 8.5-10.1 [facility] Comment on above: Performed By: #### L 700.6800, L501.2450, L500.3400, L500.2500, L100.0100 #### [facility] Laboratory [address] [place], [address] Chloride [Moles/Vol] 106 mmol/L Normal 98-107 [facility] Comment on above: Performed By: #### L 700.6800, L501.2450, L500.3400, L500.2500, L100.0100 #### [facility] Laboratory [address] [place], [address] CO2 [Moles/Vol] 28.0 mmol/L Normal 21.0-32.0 [facility] Comment on above: Performed By: #### L 700.6800, L501.2450, L500.3400, L500.2500, L100.0100 #### [facility] Laboratory [address] [place], [address] Creatinine [Mass/Vol] 0.71 mg/dL Normal 0.55-1.02 [facility] Comment on above: Result Comment: The validity of the calculated GFR GFRAA in patients over 70 years has not been determined. Clinical correlation is essential. Performed By: #### L 700.6800, L501.2450, L500.3400, L500.2500, L100.0100 #### [facility] Laboratory [address] [place], [address] ECRCL 142.24 ml/min Normal [facility] Comment on above: Performed By: #### L 700.6800, L501.2450, L500.3400, L500.2500, L100.0100 #### [facility] Laboratory [address] [place], [address] EST GFR - AA 118 mL/min Normal >60 [facility] Comment on above: Result Comment: Afri can Swiss GFR Calc Performed By: #### L 700.6800, L501.2450, L500.3400, L500.2500, L100.0100 #### [facility] Laboratory [address] [place], [address] GAP 4 Low 5-15 [facility] Comment on above: Performed By: #### L 700.6800, L501.2450, L500.3400, L500.2500, L100.0100 #### [facility] Laboratory [address] [place], [address] GFR/1.73 sq M.predicted among non-blacks MDRD (S/P/Bld) [Vol rate/Area] 97 mL/min/{1.73_m2} Normal >60 [facility] Comment on above: Result Comment: Non- GFR Calc Performed By: #### L 700.6800, L501.2450, L500.3400, L500.2500, L100.0100 #### [facility] Laboratory [address] [place], [address] Glucose [Mass/Vol] 109 mg/dL High 74-106 [facility] Comment on above: Result Comment: Fast ing Glucose result from 100 to 125 mg/dL suggests IMPAIRED HOMEOSTASIS per A.D.A. criteria. Performed By: #### L 700.6800, L501.2450, L500.3400, L500.2500, L100.0100 #### [facility] Laboratory [address] [place], [address] Potassium [Moles/Vol] 3.8 mmol/L Normal 3.5-5.1 [facility] Comment on above: Performed By: #### L 700.6800, L501.2450, L500.3400, L500.2500, L100.0100 #### [facility] [address] [place], [address] Sodium [Moles/Vol] 138 mmol/L Normal 136-145 [facility] Comment on above: Performed By: #### L 700.6800, L501.2450, L500.3400, L500.2500, L100.0100 #### [facility] Laboratory [address] [place], [address] Urea nitrogen [Mass/Vol] 11 mg/dL Normal 7-18 [facility] Comment on above: Performed By: #### L 700.6800, L501.2450, L500.3400, L500.2500, L100.0100 #### [facility] Laboratory [address] [place], [address] CBC W/Diff, Automatedon 07-12 30-2023 Absolute Lymph 2.14 X10 3/uL Normal 0.83-4.51 [facility] Comment on above: Performed By: #### L 700.6800, L501.2450, L500.3400, L500.2500, L100.0100 #### [facility] Laboratory [address] [place], [address] Absolute Neut 4.5 X10 3/uL Normal 2.0-7.7 [facility] Comment on above: Performed By: #### L 700.6800, L501.2450, L500.3400, L500.2500, L100.0100 #### [facility] Laboratory [address] [place], [address] Basophils/100 WBC (Bld) 0.7 % Normal 0-1 [facility] Comment on above: Performed By: #### L 700.6800, L501.2450, L500.3400, L500.2500, L100.0100 #### [facility] Laboratory [address] [place], [address] Eosinophils/100 WBC (Bld) 1.4 % Normal 0-5 [facility] Comment on above: Performed By: #### L 700.6800, L501.2450, L500.3400, L500.2500, L100.0100 #### [facility] Laboratory [address] [place], [address] Erythrocyte distribution width (RBC) [Ratio] 12.9 % Normal 11.6-14.6 [facility] Comment on above: Performed By: #### L 700.6800, L501.2450, L500.3400, L500.2500, L100.0100 #### [facility] Laboratory [address] [place], [address] Hematocrit (Bld) [Volume fraction] 40.1 % Normal 37-47 [facility] Comment on above: Performed By: #### L 700.6800, L501.2450, L500.3400, L500.2500, L100.0100 #### [facility] Laboratory [address] [place], [address] Hemoglobin (Bld) [Mass/Vol] 13.0 g/dL Normal 12.0-15.0 [facility] Comment on above: Performed By: #### L 700.6800, L501.2450, L500.3400, L500.2500, L100.0100 #### [facility] Laboratory [address] [place], [address] IG% 0.300 Normal 0.0-0.9 [facility] Comment on above: Result Comment: IG% - Immature Granulocytes (promyelocytes, myelocytes and metamyelocytes) > 1% indicates that a LEFT SHIFT is Present. Performed By: #### L 700.6800, L501.2450, L500.3400, L500.2500, L100.0100 #### [facility] Laboratory [address] [place], [address] Lymphocytes/100 WBC (Bld) 29.2 % Normal 19-41 [facility] Comment on above: Performed By: #### L 700.6800, L501.2450, L500.3400, L500.2500, L100.0100 #### [facility] Laboratory [address] [place], [address] MCH (RBC) [Entitic mass] 29.3 pg Normal 27.0-32.0 [facility] Comment on above: Performed By: #### L 700.6800, L501.2450, L500.3400, L500.2500, L100.0100 #### [facility] Laboratory [address] [place], [address] MCHC (RBC) [Mass/Vol] 32.4 g/dL Normal 32-36 [facility] Comment on above: Performed By: #### L 700.6800, L501.2450, L500.3400, L500.2500, L100.0100 #### [facility] [address] [place], [address] MCV (RBC) [Entitic vol] 90.3 fL Normal 81-99 [facility] Comment on above: Performed By: #### L 700.6800, L501.2450, L500.3400, L500.2500, L100.0100 #### [facility] Laboratory [address] [place], [address] Monocytes/100 WBC (Bld) 6.7 % Normal 0-10 [facility] Comment on above: Performed By: #### L 700.6800, L501.2450, L500.3400, L500.2500, L100.0100 #### [facility] Laboratory [address] [place], [address] Neutrophils/100 WBC (Bld) 61.7 % Normal 47-70 [facility] Comment on above: Performed By: #### L 700.6800, L501.2450, L500.3400, L500.2500, L100.0100 #### [facility] Laboratory [address] [place], [address] Nucleated RBC (Bld) [#/Vol] 0 10*3/uL Normal 0-5 [facility] Comment on above: Performed By: #### L 700.6800, L501.2450, L500.3400, L500.2500, L100.0100 #### [facility] Laboratory [address] [place], [address] Platelet mean volume (Bld) [Entitic vol] 10.2 fL Normal 6.2-12.0 [facility] Comment on above: Performed By: #### L 700.6800, L501.2450, L500.3400, L500.2500, L100.0100 #### [facility] Laboratory [address] [place], [address] Platelets (Bld) [#/Vol] 240 10*3/uL Normal 150-450 [facility] Comment on above: Performed By: #### L 700.6800, L501.2450, L500.3400, L500.2500, L100.0100 #### [facility] Laboratory [address] [place], [address] RBC (Bld) [#/Vol] 4.44 10*6/uL Normal 4.2-5.4 [facility] Comment on above: Performed By: #### L 700.6800, L501.2450, L500.3400, L500.2500, L100.0100 #### [facility] Laboratory [address] [place], [address] RDW SD 42.6 fl Normal 35.1-43.9 [facility] Comment on above: Performed By: #### L 700.6800, L501.2450, L500.3400, L500.2500, L100.0100 #### [facility] Laboratory [address] [place], [address] WBC (Bld) [#/Vol] 7.3 10*3/uL Normal 4.4-11.0 [facility] Comment on above: Performed By: #### L 700.6800, L501.2450, L500.3400, L500.2500, L100.0100 #### [facility] Laboratory [address] [place], [address] Emergency Department Summary on 06-18-2024 Emergency Department Summary [facility] Medical Records Department [address] [place] [address] Emergency Department Summary 06/18/24 MR#: [id number] Acct: [id number] Name: LEXIS NGUYEN Rep #: [id number] : 1985 39 From: Dong Hardwick DO PCP: Dr. Fede Davis MD Status:DEP ER Location: ED HPI History of Present Illness Chief Complaint: Flank Pain Informant: patient and spouse/S.O. Narrative Narrative: 39-year-old female presenting to the emergency room with flank and abdominal pain on the right side. Patient states that over the past week week and a half she has had urinary frequency. She states that she ate lunch around noon to 1230. She did not eat anything out of the ordinary for her consisting of a veggie burger and some applesauce. She states that around 1400 hrs. she got a severe pain in the right flank radiating down towards the right lower abdomen. She notes nausea and vomiting. No diarrhea. She has had prior cholecystectomy. She has pseudotumor cerebri and gets lumbar punctures about every 5 weeks. She has also had gastric bypass. She states that she was very warm. She had a fever and is concerned about a kidney infection. [facility] Medical History Intracranial hypertension Seizure Ovarian cyst Depression Anxiety Home Medications ???Medication ???Instructions ???Recorded ???Last Taken ???Type Cymbalta 60 mg PO/SL BID 07/05/22 Unknown History Vimpat 150 mg PO/SL BID 07/05/22 Unknown History aripiprazole 5 mg tablet 5 mg PO QHS 07/05/22 Unknown History lorazepam 0.5 mg tablet 0.5 mg PO DAILY PRN PRN Anxiety 07/05/22 Unknown History nortriptyline 75 mg capsule 75 mg PO DAILY 07/05/22 Unknown History omeprazole 20 mg PO/SL DAILY 07/05/22 Unknown History tramadol 50 mg tablet 50 mg PO PRN PRN Pain 07/05/22 Unknown History magnesium citrate 300 ml PO X1 #1 BOTTLE 06/18/24 Unknown Rx Allergy/AdvReac Type Severity Reaction Status Date / Time Penicillins Allergy Rash Verified 06/18/24 16:53 gabapentin AdvReac TREMORS Verified 06/18/24 16:53 NSAIDS (Non-Steroidal AdvReac GASTRIC Verified 06/18/24 16:53 Anti-Inflamma BYPASS Surgical History S/P [employer] shunt History of appendectomy History of cholecystectomy Gastric bypass status for obesity H/O: hysterectomy Social History Smoking Status: Current every day smoker tobacco type: e-cigarettes ROS ROS ED Constitutional Constitutional ED: Reports fever(s), subjective and sweats; Denies chills or weight loss Eyes Eyes: Denies change in vision or diplopia ENT ENT ED: Denies ear pain, rhinorrhea or sore throat Cardiovascular Cardiovascular: Denies chest pain, orthopnea, palpitations or racing heartbeat Respiratory/Chest Respiratory/Chest: Denies cough, dyspnea or orthopnea Gastrointestinal Gastrointestinal: Reports abdominal pain, nausea and vomiting; Denies constipation or diarrhea Genitourinary Genitourinary ED: Denies dysuria, hematuria or urinary frequency Musculoskeletal Musculoskeletal: Denies arthralgias or myalgias Integumentary Denies abscess or rash Neurologic Neurologic: Denies headache(s) or weakness Psychiatric Psychiatric: Denies anxiety, depression, suicidal ideation or suicidal thoughts Endocrine Endocrinology: Denies polydipsia, polyphagia or polyuria Allergic/Immunologic Allergic/Immunologic ED: Denies mouth swelling, tongue swelling or urticaria EXAM Physical Exam Const Vital Signs: 06/18/24 16:53 Temperature 98.9 F Temperature Source Temporal Pulse Rate 89 Respiratory Rate 18 Blood Pressure 159/99 H Blood Pressure Mean 119 Pulse Ox 100 Oxygen Delivery Method Room Air Positive well nourished, well developed and obese Constitutional Narrative: Patient lying in bed holding her right lower abdomen and right flank. She appears uncomfortable. General Appearance ED: well developed Nutritional Appearance: obese HEENT Reports normocephalic, head/scalp atraumatic and moist mucous membranes Eyes PERRL and EOMs intact bilaterally Neck no lymphadenopathy, supple and no JVD Resp normal respiratory effort and clear to auscultation bilaterally Cardio regular rate, regular rhythm and no murmurs GI Inspection: Negative for abdominal distention Auscultation: normoactive bowel sounds Palpation: soft and tender RLQ Back/Spine no CVA tenderness and normal ROM Back/Spine Narrative: There is some purple ecchymotic area around L5-S1 consistent with lumbar punctures. No evidence of secondary infection Extremity normal to inspection General Extremety ED: Negative for edema General Extremity: Negative for edema Neuro oriented x3 and CN's II (more content not included)... Normal [facility] Lipaseon 06-18-2024 Lipase [Catalytic activity/Vol] 87 U/L High 13-75 [facility] Comment on above: Result Comment: Plea se note: LIPASE revised reference range effective 23. New Lipase methodology. Expected to produce lower values than the previous assay method. NEW Reference Range: 13 - 75 U/L Performed By: #### L 700.6800, L501.2450, L500.3400, L500.2500, L100.0100 #### [facility] Laboratory [address] [place], [address] Liver Profileon 06-18-2024 Albumin [Mass/Vol] 3.3 g/dL Normal 3.2-5.0 [facility] Comment on above: Performed By: #### L 700.6800, L501.2450, L500.3400, L500.2500, L100.0100 #### [facility] Laboratory [address] [place], [address] ALK P 111 U/L Normal 45-117 [facility] Comment on above: Performed By: #### L 700.6800, L501.2450, L500.3400, L500.2500, L100.0100 #### [facility] [address] [place], [address] ALT [Catalytic activity/Vol] 20 U/L Normal 13-56 [facility] Comment on above: Performed By: #### L 700.6800, L501.2450, L500.3400, L500.2500, L100.0100 #### [facility] [address] [place], [address] AST [Catalytic activity/Vol] 15 U/L Normal 15-37 [facility] Comment on above: Performed By: #### L 700.6800, L501.2450, L500.3400, L500.2500, L100.0100 #### [facility] [address] [place], [address] Bilirubin [Mass/Vol] 0.40 mg/dL Normal 0.20-1.00 [facility] Comment on above: Result Comment: For patients on eltrombopag therapy, use of Dimension [place] TBIL is not recommended. Performed By: #### L 700.6800, L501.2450, L500.3400, L500.2500, L100.0100 #### [facility] [address] [place], [address] Bilirubin.direct [Mass/Vol] 0.10 mg/dL Normal 0.00-0.30 [facility] Comment on above: Performed By: #### L 700.6800, L501.2450, L500.3400, L500.2500, L100.0100 #### [facility] [address] [place], [address] Globulin (S) [Mass/Vol] 3.2 g/dL Normal 2.2-4.2 [facility] Comment on above: Performed By: #### L 700.6800, L501.2450, L500.3400, L500.2500, L100.0100 #### [facility] [address] [place], [address] T PROT 6.5 g/dL Normal 6.4-8.2 [facility] Comment on above: Performed By: #### L 700.6800, L501.2450, L500.3400, L500.2500, L100.0100 #### [facility] [address] [place], [address] ,Serum,hCG Quali.on 06-18-2024 HCG, SERUM QUAL Negative Normal [facility] Comment on above: Performed By: #### L 700.6800, L501.2450, L500.3400, L500.2500, L100.0100 #### [facility] [address] [place], [address] Urinalysis, Completeon 06-18 EPI,SQUAMOUS 0-5 SEEN Normal 5-10 [facility] Comment on above: Order Comment: CLEAN CATCH Performed By: #### L 400.0001 ####[facility] [address] [place], [address] BACTERIA 0 SEEN Normal None Seen [facility] Comment on above: Order Comment: CLEAN CATCH Performed By: #### L 400.0001 ####[facility] [address] [place], [address] Mucus Ql (Urine sed) 0 SEEN Normal [facility] Comment on above: Order Comment: CLEAN CATCH Performed By: #### L 400.0001 ####[facility] [address] [place], [address] RBC 0 SEEN Normal 0-5 [facility] Comment on above: Order Comment: CLEAN CATCH Performed By: #### L 400.0001 ####[facility] [address] [place], [address] WBC 0 SEEN Normal 0-5 [facility] Comment on above: Order Comment: CLEAN CATCH Performed By: #### L 400.0001 ####[facility] [address] [place], [address] OCT OPTIC NERVE CIRRUS OU (B OTH EYES)on 05-01-2024 [facility] Radiology Study observation (narrative) [facility] VISUAL FIELD 24-2 OU (BOTH E YES)on 05-01-2024 [facility] Radiology Study observation (narrative) [facility] ED NOTEon 04-23-2024 ED NOTE HNO ID: [id number] Author: YESI TYSON RN Service: ? Author Type: Registered Nurse Type: ED Notes Filed: 04/23/2024 19:42 Note Text: Urine sent, ultrasound notified Normal [facility] ED Triage Noteon 04-23-2024 ED Triage Note HNO ID: [id number] Author: NICCI NGO PA-C Service: Emergency Medicine Author Type: Physician Home Care Attendant Type: ED Triage Notes Filed: 04/23/2024 19:41 Note Text: ED TRIAGE PROVIDER NOTE Patient Name: Lexis Nguyen Service Date: 04/23/24 BRIEF HPI: This is a 39 year old female who presents to the ED with: Pelvic pain and pressure. States she has had this before. Reports history of partial hysterectomy. She endorses urinary frequency. BRIEF EXAM: NAD Awake and Alert Non labored breathing INITIAL WORKUP AND DECISION MAKING: Orders Placed This Encounter US FEMALE PELVIS TRANSABD LTD US FEMALE PELVIS TRANSVAG US DOPPLER COMPLETE Urinalysis w Microscopic, reflex Culture HCG QUALITATIVE URINE SIGNATURE: Nicci Ngo PA-C Normal [facility] HCG Preg Ur Qlon 04-23-2024 HCG ( test) Ql (U) Negative Normal Negative [facility] Comment on above: Order Comment: Speci men Type: URINE SPECIMENOrdering Facility: [facility] Address: [address] [place] [address] Result Comment: This test is intended to aid in the early detection of . Very dilute urine samples, as indicated by a low specific gravity, may not contain patient accounting representative levels of hCG. This test detects intact hCG only. This test does not reliably detect hCG degradation products, including free-beta subunit and beta-core fragment. Therefore, this test may show reduced reactivity in urine after 8 weeks gestation. A number of conditions other than , including trophoblastic disease and certain non-trophoblastic neoplasms cause elevated levels of hCG. As with any assay employing mouse antibodies, the possibility exists for interference by human anti-mouse antibodies (HAMA) in the specimen. The test provides a presumptive diagnosis for . Performed By: #### 2 106-3 ####[facility] [id number] [address] Urinalysis complete panel (U )on 04-23-2024 Bilirubin Ql (U) Negative Normal Negative [facility] Comment on above: Order Comment: Speci men Type: URINE SPECIMEN Ordering Facility: [facility] Address: [address] [place] [address] Performed By: #### 2 4356-8 #### [facility] CLIA [id number] [address] [place] [address] CALCIUM OXALATE CRYSTALS (UA) Few Abnormal None Seen [facility] Comment on above: Order Comment: Speci men Type: URINE SPECIMEN Ordering Facility: [facility] Address: [address] [place] [address] Performed By: #### 2 4356-8 #### [facility] CLIA [id number] [address] [place] [address] Clarity (Unsp spec) Clear Normal Clear [facility] Comment on above: Order Comment: Speci men Type: URINE SPECIMEN Ordering Facility: [facility] Address: [address] [place] [address] Performed By: #### 2 4356-8 #### [facility] CLIA [id number] [address] [place] [address] Color (U) Colorless Normal yellow [facility] Comment on above: Order Comment: Speci men Type: URINE SPECIMEN Ordering Facility: [facility] Address: [facility] [place] [address] Performed By: #### 2 4356-8 #### [facility] CLIA [id number] [address] [place] [address] Epithelial cells LM.HPF (Urine sed) [#/Area] Few Normal [facility] Comment on above: Order Comment: Speci men Type: URINE SPECIMEN Ordering Facility: [facility] Address: [address] [place] [address] Performed By: #### 2 4356-8 #### [facility] CLIA [id number] [address] [place] Glucose Test strip (U) [Mass/Vol] Negative Normal Trace, Negative [facility] Comment on above: Order Comment: Speci men Type: URINE SPECIMEN Ordering Facility: [facility] Address: [address] [place] [address] Performed By: #### 2 4356-8 #### [facility] CLIA [id number] [address] [place] Hemoglobin Ql (U) Negative Normal Negative, Trace [facility] Comment on above: Order Comment: Speci men Type: URINE SPECIMEN Ordering Facility: [facility] Address: [address] [place] [address] Performed By: #### 2 4356-8 #### [facility] CLIA [id number] [address] [place] Ketones Ql (U) Negative Normal Negative, Trace [facility] Comment on above: Order Comment: Speci men Type: URINE SPECIMEN Ordering Facility: [facility] Address: [address] [place] [address] Performed By: #### 2 4356-8 #### [facility] CLIA [id number] [address] [place] Leukocyte esterase Test strip Ql (U) Negative Normal Negative, 25 Ruby/uL [facility] Comment on above: Order Comment: Speci men Type: URINE SPECIMEN Ordering Facility: [facility] Address: [address] [place] [address] Performed By: #### 2 4356-8 #### [facility] CLIA [id number] [address] [place] [address] [place] Nitrite Ql (U) Negative Normal Negative [facility] Comment on above: Order Comment: Speci men Type: URINE SPECIMEN Ordering Facility: [facility] Address: [address] [place] [address] Performed By: #### 2 4356-8 #### [facility] CLIA [id number] [address] pH (U) 5.0 [pH] Normal 5.0-8.0 [facility] Comment on above: Order Comment: Speci men Type: URINE SPECIMEN Ordering Facility: [facility] Address: [address] [place] [address] Performed By: #### 2 4356-8 #### [facility] CLIA [id number] [address] STATES [facility] Protein (U) [Mass/Vol] Negative Normal Trace , Negative [facility] Comment on above: Order Comment: Speci men Type: URINE SPECIMEN Ordering Facility: [facility] Address: [address] [place] [address] Performed By: #### 2 4356-8 #### [facility] CLIA [id number] [address] [place] RBC LM.HPF (Urine sed) [#/Area] 0-3 /HPF Normal 0-3 /HPF [facility] Comment on above: Order Comment: Speci men Type: URINE SPECIMEN Ordering Facility: [facility] Address: [address] [place] [address] Performed By: #### 2 4356-8 #### [facility] CLIA [id number] [address] Specific gravity (U) [Rel density] 1.007 Normal 1.005-1.030 [facility] Comment on above: Order Comment: Speci men Type: URINE SPECIMEN Ordering Facility: [facility] Address: [address] [place] [address] Performed By: #### 2 4356-8 #### [facility] CLIA [id number] [address] Urobilinogen Ql (U) Normal Normal Normal [facility] Comment on above: Order Comment: Speci men Type: URINE SPECIMEN Ordering Facility: [facility] Address: [address] [place] [address] Performed By: #### 2 4356-8 #### [facility] CLIA [id number] [address] WBC LM.HPF (Urine sed) [#/Area] 0-5 /HPF Normal 0-5 /HPF [facility] Comment on above: Order Comment: Speci men Type: URINE SPECIMEN Ordering Facility: [facility] Address: [address] [place] [address] Performed By: #### 2 4356-8 #### [facility] CLIA [id number] [address] ED NOTEon 02-20-2024 ED NOTE HNO ID: [id number] Author: ARIANNA TAYLOR CT Service: Emergency Medicine Author Type: Clinical General Engineering Teacher Type: ED Notes Filed: 02/22/2024 18:50 Note Text: Emergency Services: ED Call Back Questionnaire SERVICE DATE: 02/20/2024 Are you feeling better? Yes Any questions about discharge instructions and follow-up care? No Were you able to make a follow up appointment? No, referred to appointment hotline Do you have any further questions? No Is there anything that we could have done differently to improve your ED visit? No SIGNATURE: CRIS Hidalgo PATIENT NAME: Lexis Nguyen DATE: February 22, 2024 TIME: 6:50 PM [facility] ED NOTE HNO ID: [id number] Author: SUSAN GIBBONS RN Service: Emergency Medicine Author Type: Registered Nurse Type: ED Notes Filed: 02/20/2024 15:08 Note Text: Ultrasound notified Normal [facility] ED PROV NOTEon 02-20-2024 ED PROV NOTE HNO ID: [id number] Author: NICCI SWEET MD Service: Emergency Medicine Author Type: Physician Type: ED Provider Notes Filed: 03/11/2024 12:42 Note Text: ED Provider Note Patient Name: Lexis Nguyen : 1985 SERVICE DATE: 02/20/24 History Patient presents with: Leg Pain: Pt arrives to triage c/o left leg/calf pain. Pt seen here yesterday for same but reports pain has gotten worse. The patient is a 38-year-old female past medical history significant for diabetes, epilepsy, anxiety who presents with leg pain for a week. She reports 1 week ago she ran into a bed frame with her left byers and felt resulting pain. Over the next couple days the pain increased and she felt that it was getting harder and harder to bear weight on the leg. She has already been seen by urgent care who diagnosed her with cellulitis and told her if the pain got worse to present to emergency department. She was seen in this emergency department yesterday and the pain was determined to be musculoskeletal. She had an x-ray which did not reveal fracture or dislocation. She presents here as she was told if she starts to have pain in the back of her leg to come to the emergency department she believes she might have a blood clot. She reports she has a sedentary lifestyle due to her medical illnesses and has not traveled recently. Denies estrogenic medication use, denies history of pulmonary embolism or DVT. Is not currently on any blood thinners. PAST MEDICAL HISTORY Diagnosis Date - Difficult intravenous access 02/16/2023 - Epilepsy (HCC) - IIH (idiopathic intracranial hypertension) PAST SURGICAL HISTORY Procedure Laterality Date - APPENDIX NET-EXCIS(APPENDECTOMY )SYNOPTIC 2007 - GASTRIC BYPASS HX 2013 - HYSTERECTOMY 2021 - MIDLINE INSERTION/CONSULT 07/28/2023 - MIDLINE INSERTION/CONSULT 12/14/2023 - MIDLINE INSERTION/CONSULT 02/01/2024 - PAST SURGICAL HISTORY OF 2019 collar bone fracture (hardware placement and removal) - PAST SURGICAL HISTORY OF lumbar punctures (132) - PAST SURGICAL HISTORY OF 02/2023 brain angiogram - PAST SURGICAL HISTORY OF 2009 CASINO BANKER Shunt - removed in 2009 due to infection - REMOVAL GALLBLADDER 2014 - TONSILLECTOMY HX 2005 FAMILY HISTORY Problem Relation Age of Onset - COPD Mother - Diabetes Father - Ischemic Heart Disease Father - Stroke Father - Skin Cancer Father - Difficulty with anesthesia No Family History - Anesthesia Problems No Family History Social History Tobacco Use - Smoking status: Never - Smokeless tobacco: Never Substance and Sexual Activity - Alcohol use: Not Currently Comment: Rare - Drug use: Yes Frequency: 7.0 times per week Comment: medical marijuana-vaping - Sexual activity: Not on file Comment: Not asked ALLERGIES Allergen Reactions - Nsaids (Non-Steroid* GI Upset, Contraindication-Medic al Surgical Because of gastric bypass - Cavanaugh Pepper Rash - Gabapentin Mental Status Change, Other: See Comments Tremors - Penicillins Hives, Rash Received IV cefazolin at [facility] in 2018 and 2020 prior to procedures Received IV cefazolin at [facility] in 2018 and 2020 prior to procedures Review of Systems Constitutional: Negative for chills, diaphoresis and fatigue. HENT: Negative for congestion, facial swelling and rhinorrhea. Eyes: Negative for discharge, redness and visual disturbance. Respiratory: Negative for cough, choking and wheezing. Cardiovascular: Negative for chest pain, palpitations and leg swelling. Gastrointestinal: Negative for abdominal distention, abdominal pain and nausea. Endocrine: Negative for cold intolerance, heat intolerance and polyuria. Genitourinary: Negative for difficulty urinating, dysuria and flank pain. Musculoskeletal: Positive for myalgias. Negative for back pain, gait problem and joint swelling. Skin: Negative for pallor, rash and wound. Neurological: Negative for dizziness, facial asymmetry and headaches. Hematological: Negative for adenopathy. Psychiatric/Behavioral : Negative for agitation, confusion and hallucinations. Physical Exam Vitals [02/20/24 1451] BP Pulse Temp Temp src Resp SpO2 Weight Height 118/82 (!) 109 36.8 ?C (98.2 ?F) Oral 20 100 % 128.4 kg (283 lb) -- Physical Exam Vitals and nursing note reviewed. Constitutional: General: She is not in acute distress. Appearance: Normal appearance. HENT: Head: Normocephalic and atraumatic. Nose: Nose normal. No congestion or rhinorrhea. Mouth/Throat: Mouth: Mucous membranes are moist. Pharynx: No oropharyngeal exudate or posterior oropharyngeal erythema. Eyes: General: No scleral icterus. Right eye: No discharge. Left eye: No discharge. Conjunctiva/sclera: Conjunctivae normal. Cardiovascular: Rate and Rhythm: Normal rate and regular rhythm. Pulses: Normal pulses. Heart sounds: Normal heart sounds. No murmur heard. No friction rub. No gallop. Pulmonary: Effort: Pulmonary effort (more content not included)... Normal [facility] ED Triage Noteon 02-20-2024 ED Triage Note HNO ID: [id number] Author: SYLVIA HANEY PA-C Service: Emergency Medicine Author Type: Physician Home Care Attendant Type: ED Triage Notes Filed: 02/20/2024 14:54 Note Text: ED TRIAGE PROVIDER NOTE Patient Name: Lexis Nguyen Service Date: 02/20/24 Provider in triage As provider in triage my care is limited to quick assessment and initiation of any orders able to be performed during triage. BRIEF HPI: This is a 38 year old female who presents to the ED with: Left leg pain. Seen here yesterday had an x-ray and was discharged home with crutches. States pain now to the posterior aspect of the lower leg and calf. No new falls or trauma. BRIEF EXAM: Constitutional: Well-developed, well-nourished, NAD. HEENT: Normocephalic, atraumatic. Respiratory: CTA bilaterally, no respiratory distress. Cardiac: RRR, heart sounds normal. Abdomen: Soft, NABS x4. Nontender, no guarding or rebound tenderness. Musculoskeltal: KILPATRICK x4. TTP left calf. Neuro: AANDOx3. Skin: Warm and dry. TRIAGE WORKUP: Orders Placed This Encounter US DVT LOWER LEFT No diagnosis found. SIGNATURE: Sylvia Haney PA-C Normal [facility] US DVT LOWER LTon 02-20-2024 US DVT LOWER LT * * *Final Report* * * DATE OF EXAM: Feb 20 2024 4:25PM AKU 1006 - US DVT LOWER LT / PROCEDURE REASON: Leg pain or tenderness * * * * Physician Interpretation * * * * EXAMINATION: LEFT LOWER EXTREMITY DEEP VENOUS ULTRASOUND WITH DOPPLER IMAGING CLINICAL HISTORY: Left leg pain and tenderness TECHNIQUE: Grayscale with compression maneuvers, color Doppler and spectral Doppler imaging of the left proximal deep veins was performed. Grayscale with compression maneuvers of the peroneal and posterior tibial veins was performed. The left great and small saphenous veins were evaluated at their insertion to the deep system. The contralateral common femoral vein was imaged for comparison. Images were obtained and stored in a permanent archive. MQ: [id number] COMPARISON: None RESULT: LEFT LOWER EXTREMITY PROXIMAL DEEP VEINS Distal External Iliac, Common Femoral and proximal Profunda Veins: Compression: Normal Doppler: Normal, spontaneous respirophasic flow. Normal response to augmentation. Femoral vein: Compression: Normal Doppler: Normal, spontaneous flow. Normal response to augmentation. Popliteal vein: Compression: Normal Doppler: Normal, spontaneous flow. Normal response to augmentation. CALF DEEP VEINS Peroneal veins: Normal compression. Posterior tibial veins: Normal compression. Gastrocnemius and Soleal veins: Not imaged. SUPERFICIAL VEINS Great saphenous: Patent and compressible at insertion into common femoral vein; not otherwise assessed. Small Saphenous: Patent and compressible in the proximal calf, not otherwise assessed. RIGHT LOWER EXTREMITY (FOR COMPARISON) Common Femoral Vein: Compression: Normal Doppler: Normal, spontaneous respirophasic flow. Normal response to augmentation. IMPRESSION: Negative study for proximal DVT in the left lower extremity. Negative study for calf DVT in the left lower extremity. Negative study for superficial thrombophlebitis in the imaged segments of the left lower extremity. Heel Nailing Machine Operator: MILI Transcribe Date/Time: Feb 20 2024 4:36P Dictated by : HILDA SOTELO MD This examination was interpreted and the report reviewed and electronically signed by: HILDA SOTELO MD on Feb 20 2024 4:39PM EST [id number] Normal [facility] ALLIED HEALTHon 02-19-2024 ALLIED HEALTH HNO ID: [id number] Author: MAEGAN SPAULDING RT(R) Service: ? Author Type: Technologist Type: Allied Health Filed: 02/19/2024 15:50 Note Text: Radiology Service Progress Note PATIENT NAME: Lexis Nguyen DATE OF SERVICE: February 19, 2024 TIME: 3:40 PM PATIENT IDENTITY VERIFICATION COMPLETED USING TWO (2) IDENTIFIERS: Name and Date of confirmed by patient verbally. FALL SCREENING: Has the patient had 2 falls in the last year or 1 fall with injury or currently using an Ambulatory Assistive Device (Walker, Cane, Wheelchair, Crutches, etc.)? Emergency Room Patient: Screened in ED PATIENT GENDER DATA: Female. status: : No status: NO. PATIENT RELEVANT IMPLANT DATA REVIEWED: Not Applicable PATIENT PRESENTS WITH AN IMPLANTABLE OR ATTACHED SURVEY RODMAN: No RADIOLOGY DEPARTMENT: General X-ray: Exam(s) Completed: Lower Extremity X-Ray(s): Tibia Fibula, Left PERIPHERAL IV DATA: Not applicable SIGNED BY: RT Sanju(R) February 19, 2024 3:40 PM Normal [facility] ED NOTEon 02-19-2024 ED NOTE HNO ID: [id number] Author: CESARIO VARELA RN Service: Emergency Medicine Author Type: Registered Nurse Type: ED Notes Filed: 02/19/2024 15:28 Note Text: Xray notified Normal [facility] ED NOTE HNO ID: [id number] Author: JEANE RIVERA RN Service: ? Author Type: Registered Nurse Type: ED Notes Filed: 02/19/2024 14:39 Note Text: Bed: 36-ED Expected date: Expected time: Means of arrival: Comments: Triage Normal [facility] ED PROV NOTEon 02-19-2024 ED PROV NOTE HNO ID: [id number] Author: GENE LACY MD Service: Emergency Medicine Author Type: Physician Type: ED Provider Notes Filed: 02/19/2024 16:24 Note Text: The patient presents to the emergency department reporting persistent left lower leg pain after she ran into her bed frame 1 week ago. She states that the area has gotten red since that time. She has been ambulating on it. Patient's vital signs are stable. She is afebrile with a room air pulse ox 100%. She has some mild erythema to the anterior and anterior lateral aspect of the distal left leg with palpable tenderness. There is no tenderness proximal or distal to that area. There is no palpable cords in the calves. She has full range of motion with neurovascular status intact. We will obtain an x-ray to identify any potential fractures. If negative, this is most likely contusion with some early cellulitis that can be treated with antibiotics and pain medication. She is currently in stable condition. GENE LACY 02/19/24 1624 Normal [facility] ED PROV NOTE HNO ID: [id number] Author: GENE LACY MD Service: Emergency Medicine Author Type: Physician Type: ED Provider Notes Filed: 02/19/2024 20:52 Note Text: ED Provider Note Patient Name: Lexis Nguyen : 1985 SERVICE DATE: 02/19/24 History The patient is a 38-year-old female with a past med history as listed below presenting to the ED with complaint of left lower leg pain. The patient reports that earlier last week she ran into her bed frame. She reports that since Wednesday, her leg has been bothering her, and she is reporting pain from distal tibia radiating into her foot. She also reports numbness in her left great toe. She reports that she was evaluated at urgent care, and told her to come to the ED due to concerns for cellulitis. The patient denies any fevers, chills, nausea, vomiting, diarrhea, shortness of breath, chest pain, and abdominal pain. She reports that she has been able to bear weight on and has been ambulating. She denies any history of DVT or PE. She denies any blood thinners or anticoagulation use. 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 infection REMOVAL GALLBLADDER 2015 TONSILLECTOMY HX 2005 FAMILY HISTORY Problem Relation Age of Onset COPD Mother Diabetes Father Ischemic Heart Disease Father Stroke Father Skin Cancer Father Difficulty with anesthesia No Family History Anesthesia Problems No Family History Social History Tobacco Use Smoking status: Never Smokeless tobacco: Never Substance and Sexual Activity Alcohol use: Not Currently Comment: Rare Drug use: Yes Frequency: 7.0 times per week Comment: medical marijuana-vaping Sexual activity: Not on file Comment: Not asked ALLERGIES Allergen Reactions Nsaids (Non-Steroid* GI Upset, Contraindication-Medic al Surgical Because of gastric bypass Cavanaugh Pepper Rash Gabapentin Mental Status Change, Other: See Comments Tremors Penicillins Hives, Rash Received IV cefazolin at [facility] in 2018 and 2020 prior to procedures Received IV cefazolin at [facility] in 2018 and 2020 prior to procedures Review of Systems All other systems reviewed and are negative. Physical Exam Vitals [02/19/24 1438] BP Pulse Temp Temp src Resp SpO2 Weight Height 126/81 (!) 134 36.7 ?C (98.1 ?F) Oral 18 100 % 128.4 kg (283 lb) -- Physical Exam Vitals and nursing note reviewed. Constitutional: General: She is not in acute distress. Appearance: Normal appearance. She is not ill-appearing. Cardiovascular: Rate and Rhythm: Normal rate and regular rhythm. Pulses: Normal pulses. Heart sounds: No murmur heard. No friction rub. No gallop. Pulmonary: Effort: Pulmonary effort is normal. Breath sounds: No wheezing, rhonchi or rales. Abdominal: General: There is no distension. Palpations: Abdomen is soft. Tenderness: There is no abdominal tenderness. There is no guarding. Musculoskeletal: Cervical back: Normal range of motion and neck supple. Right lower leg: No edema. Left lower leg: No edema. Comments: Left tiba: point tenderness at midshaft, no visual deformities or injuries. Moving all extremities appropriately Skin: Capillary Refill: Capillary refill takes less than 2 seconds. Comments: LLE: no signs of erythema, no swelling, not warm to touch. Mo wounds or lacerations Neurological: General: No focal deficit present. Mental Status: She is alert and oriented to person, place, and time. GCS: GCS eye subscore is 4. GCS verbal subscore is 5. GCS motor subscore is 6. Cranial Nerves: Cranial nerves 2-12 are intact. Sensory: Sensation is intact. Motor: Motor function is intact. Coordination: Coordination is intact. Atppmm-Cfef-Byayta Test and Heel to Byers Test normal. Gait: Gait normal. Diagnostic Testing ED Labs Ordered and Reviewed - No data to display Procedures ED Course / Clinical Impression ED Course as of 02/19/242031 Jonn Colón's Documentation Sat Feb 19, 2024 1652 XR Tib/fib: No acute fracture or dislocation. Unremarkable soft tissue Clinical Impressions as of 02/19/242031 Leg pain, anterior, left MDM / Disposition / Plan Lexis Nguyen is 38 year old female who presented to the ED with chief complaint of left lower extremity pain. On arrival, the patient's vital signs are significant for tachycardia with a heart rate of 134 (more content not included)... Normal [facility] XR TIBIA FIBULA 2V AP/LAT LT on 02-19-2024 XR TIBIA FIBULA 2V AP/LAT LT * * *Final Report* * * DATE OF EXAM: Feb 19 2024 3:49PM AKX 5265 - XR TIBIA FIBULA 2V AP/LAT LT / PROCEDURE REASON: Fracture / Dislocation * * * * Physician Interpretation * * * * EXAMINATION: XR TIBIA FIBULA 2V AP/LAT LT CLINICAL HISTORY: Pain Fracture / Dislocation Technique: XR TIBIA FIBULA 2V AP/LAT LT -- left tibia fibula with 2 views on 2 images Comparison: None RESULT: No acute fracture or dislocation. Unremarkable soft tissue. IMPRESSION: No acute findings in the left tibia and fibula. Heel Nailing Machine Operator: PSCB Transcribe Date/Time: Feb 19 2024 4:38P Dictated by : MARTHA RAJPUT MD This examination was interpreted and the report reviewed and electronically signed by: MARTHA RAJPUT MD on Feb 19 2024 4:40PM EST [id number] Normal [facility] ALLIED HEALTHon 09-25-2023 ALLIED HEALTH HNO ID: [id number] Author: Joslyn Murdock RT(Gabe) Service: ? Author Type: Technologist Type: Allied Health Filed: 09/25/2023 10:03 AM Note Text: Radiology Service Progress Note DATE OF SERVICE: September 25, 2023 TIME: 9:32 AM PATIENT IDENTITY VERIFICATION COMPLETED USING TWO (2) STANDARD IDENTIFIERS: Name and Date of confirmed by patient verbally and Name and Date of confirmed by identification band. FALL SCREENING: Has the patient had 2 falls in the last year or 1 fall with injury or currently using an Ambulatory Assistive Device (Walker, Cane, Wheelchair, Crutches, etc.)? Emergency Room Patient: Screened in ED PATIENT GENDER DATA: Female. status: : No status: NO. PATIENT RELEVANT IMPLANT DATA REVIEWED: Yes ALLERGIES: Reviewed and unchanged CONTRAST ALLERGY: NO. EXAM: MRI - CONTRAST TYPE: GROUP II PERIPHERAL IV DATA: Inpatient - refer to LDA documentation RADIOLOGY DEPARTMENT: MR; Exam(s) Completed: Spine: Thoracic spine and Lumbar spine SIGNATURE: RT Isidra(R) PATIENT NAME: Lexis gNuyen DATE: September 25, 2023 TIME: 9:32 AM Normal [facility] Basic metabolic 2000 panelon 09-25-2023 Anion gap [Moles/Vol] 7 mmol/L Low 9-18 [facility] Comment on above: Order Comment: Speci men Type: BLOOD SPECIMENOrdering Facility: [facility] Address: [address] [place] [address] Performed By: #### 2 4321-2 ####[facility] LABORATORYCLIA [id number] [place] [address] [place] Calcium [Mass/Vol] 8.7 mg/dL Normal 8.5-10.2 [facility] Comment on above: Order Comment: Speci men Type: BLOOD SPECIMENOrdering Facility: [facility] Address: [address] [place] [address] Performed By: #### 2 4321-2 ####[facility] LABORATORYCLIA [id number] [place] [address] [place] Chloride [Moles/Vol] 102 mmol/L Normal 97-105 [facility] Comment on above: Order Comment: Speci men Type: BLOOD SPECIMENOrdering Facility: [facility] Address: [address] [place] [address] Performed By: #### 2 4321-2 ####[facility] LABORATORYCLIA [id number] [place] [address] [place] CO2 [Moles/Vol] 30 mmol/L Normal 22-30 [facility] Comment on above: Order Comment: Speci men Type: BLOOD SPECIMENOrdering Facility: [facility] Address: [address] [place] [address] Performed By: #### 2 4321-2 ####[facility]ATORYCLIA [id number] [address] [place] Creatinine [Mass/Vol] 0.81 mg/dL Normal 0.58-0.96 [facility] Comment on above: Order Comment: Speci men Type: BLOOD SPECIMENOrdering Facility: [facility] Address: [address] [place] [address] Performed By: #### 2 4321-2 ####[facility] LABORATORYCLIA [id number] [address] OF [place] Creatinine and Glomerular filtration rate.predicted panel (S/P/Bld) 95 mL/min/1.73m??? Normal >=60 [facility] Comment on above: Order Comment: Azucena weber Type: BLOOD SPECIMENOrdering Facility: [facility] Address: [place] [address] Result Comment: Cate mated Glomerular Filtration Rate (eGFR) is calculated using the 2020 CKD-EPI creatinine equation. This equation utilizes serum creatinine, sex, and age as parameters. The creatinine assay has traceable calibration to isotope dilution-mass spectrometry. Refer to KDIGO guidelines for clinical interpretation. In patients with unstable renal function, e.g. those with acute kidney injury, the eGFR may not accurately reflect actual GFR. Performed By: #### 2 4321-2 ####[facility] LABORATORYCLIA [id number] [place] [address] [place] Glucose [Mass/Vol] 94 mg/dL Normal 74-99 [facility] Comment on above: Order Comment: Azucena weber Type: BLOOD SPECIMENOrdering Facility: [facility] Address: [place] [address] Result Comment: The [place] Diabetes Association (ADA) provides guidance for cutoff values for fasting glucose and random glucose. The ADA defines fasting as no caloric intake for at least 8 hours. Fasting plasma glucose results between 100 to 125 mg/dL indicate increased risk for diabetes (prediabetes). Fasting plasma glucose results greater than or equal to 126 mg/dL meet the criteria for diagnosis of diabetes. In the absence of unequivocal hyperglycemia, results should be confirmed by repeat testing. In a patient with classic symptoms of hyperglycemia or hyperglycemic crisis, random plasma glucose results greater than or equal to 200 mg/dL meet the criteria for diagnosis of diabetes. Reference: Standards of Medical Care in Diabetes 2016, [place] Diabetes Association. Diabetes Care. 2016.39(Suppl 1). Performed By: #### 2 4321-2 ####[facility]ORATORYCLIA [id number] [place] [address] [place] Potassium [Moles/Vol] 4.7 mmol/L Normal 3.7-5.1 [facility] Comment on above: Order Comment: Azucena weber Type: BLOOD SPECIMENOrdering Facility: [facility] Address: [address] [facility] [place] [address] Performed By: #### 2 4321-2 ####[facility] LABORATORYCLIA [id number] [address] STATES [facility] Sodium [Moles/Vol] 139 mmol/L Normal 136-144 [facility] Comment on above: Order Comment: Speci men Type: BLOOD SPECIMENOrdering Facility: [facility] Address: [address] [place] [address] Performed By: #### 2 4321-2 ####[facility]ORATORYCLIA [id number] [address] STATES OF [facility] Urea nitrogen [Mass/Vol] 17 mg/dL Normal 7-21 [facility] Comment on above: Order Comment: Speci men Type: BLOOD SPECIMENOrdering Facility: [facility] Address: [address] [place] [address] Performed By: #### 2 4321-2 ####[facility]ORATORYCLIA [id number] [address] STATES OF [facility] CBC W Auto Differential pane l (Bld)on 09-25-2023 Basophils (Bld) [#/Vol] 0.04 10*3/uL Normal <0.11 [facility] Comment on above: Order Comment: Speci men Type: BLOOD SPECIMENOrdering Facility: [facility] Address: [address] [place] [address] Performed By: #### 5 7021-8 ####[facility]ORATORYCLIA [id number] [address] STATES [facility] Basophils/100 WBC (Bld) 0.6 % Normal [facility] Comment on above: Order Comment: Speci men Type: BLOOD SPECIMENOrdering Facility: [facility] Address: [address] [place] [address] Performed By: #### 5 7021-8 ####[facility]ORATORYCLIA [id number] [address] Differential cell count method Nom (Bld) Auto Normal [facility] Comment on above: Order Comment: Speci men Type: BLOOD SPECIMENOrdering Facility: [facility] Address: [address] [place] [address] Performed By: #### 5 7021-8 ####[facility]ATORYCLIA [id number] [address] [place] Eosinophils (Bld) [#/Vol] 0.07 10*3/uL Normal <0.46 [facility] Comment on above: Order Comment: Speci men Type: BLOOD SPECIMENOrdering Facility: [facility] Address: [address] [place] [address] Performed By: #### 5 7021-8 ####[facility]ORATORYCLIA [id number] [address] Eosinophils/100 WBC (Bld) 1.0 % Normal [facility] Comment on above: Order Comment: Speci men Type: BLOOD SPECIMENOrdering Facility: [facility] Address: [address] [place] [address] Performed By: #### 5 7021-8 ####[facility]ORATORYCLIA [id number] [address] [place] Erythrocyte distribution width (RBC) [Ratio] 12.7 % Normal 11.5-15.0 [facility] Comment on above: Order Comment: Speci men Type: BLOOD SPECIMENOrdering Facility: [facility] Address: [address] [place] [address] Performed By: #### 5 7021-8 ####[facility]ORATORYCLIA [id number] [address] [place] Hematocrit (Bld) [Volume fraction] 40.9 % Normal 36.0-46.0 [facility] Comment on above: Order Comment: Speci men Type: BLOOD SPECIMENOrdering Facility: [facility] Address: [address] [place] [address] Performed By: #### 5 7021-8 ####[facility]ATORYCLIA [id number] [address] [place] Hemoglobin (Bld) [Mass/Vol] 13.4 g/dL Normal 11.5-15.5 [facility] Comment on above: Order Comment: Speci men Type: BLOOD SPECIMENOrdering Facility: [facility] Address: [address] [place] [address] Performed By: #### 5 7021-8 ####[facility]ORATORYCLIA [id number] [address] [place] Immature granulocytes (Bld) [#/Vol] 10*3/uL Normal <0.10 [facility] Comment on above: Order Comment: Speci men Type: BLOOD SPECIMENOrdering Facility: [facility] Address: [address] [place] [address] Performed By: #### 5 7021-8 ####[facility]ORATORYCLIA [id number] [address] STATES [facility] Immature granulocytes/100 WBC (Bld) 0.1 % Normal [facility] Comment on above: Order Comment: Speci men Type: BLOOD SPECIMENOrdering Facility: [facility] Address: [address] [place] [address] Performed By: #### 5 7021-8 ####[facility]ORATORYCLIA [id number] [address] [place] Lymphocytes (Bld) [#/Vol] 1.67 10*3/uL Normal 1.00-4.00 [facility] Comment on above: Order Comment: Speci men Type: BLOOD SPECIMENOrdering Facility: [facility] Address: [address] [place] [address] Performed By: #### 5 7021-8 ####[facility]ATORYCLIA [id number] [address] [place] Lymphocytes/100 WBC (Bld) 23.3 % Normal [facility] Comment on above: Order Comment: Speci men Type: BLOOD SPECIMENOrdering Facility: [facility] Address: [address] [place] [address] Performed By: #### 5 7021-8 ####[facility]ORATORYCLIA [id number] [place] [address] [place] MCH (RBC) [Entitic mass] 30.6 pg Normal 26.0-34.0 [facility] Comment on above: Order Comment: Speci men Type: BLOOD SPECIMENOrdering Facility: [facility] Address: [address] [place] [address] Performed By: #### 5 7021-8 ####[facility]ORATORYCLIA [id number] [address] STATES OF [facility] MCHC (RBC) [Mass/Vol] 32.8 g/dL Normal 30.5-36.0 [facility] Comment on above: Order Comment: Speci men Type: BLOOD SPECIMENOrdering Facility: [facility] Address: [address] [place] [address] Performed By: #### 5 7021-8 ####[facility]ORATORYCLIA [id number] [address] STATES OF [facility] MCV (RBC) [Entitic vol] 93.4 fL Normal 80.0-100.0 [facility] Comment on above: Order Comment: Speci men Type: BLOOD SPECIMENOrdering Facility: [facility] Address: [address] [place] [address] Performed By: #### 5 7021-8 ####[facility]ATORYCLIA [id number] [address] Monocytes (Bld) [#/Vol] 0.53 10*3/uL Normal <0.87 [facility] Comment on above: Order Comment: Speci men Type: BLOOD SPECIMENOrdering Facility: [facility] Address: [address] [place] [address] Performed By: #### 5 7021-8 ####[facility]ATORYCLIA [id number] [address] Monocytes/100 WBC (Bld) 7.4 % Normal [facility] Comment on above: Order Comment: Speci men Type: BLOOD SPECIMENOrdering Facility: [facility] Address: [address] [place] [address] Performed By: #### 5 7021-8 ####[facility]ORATORYCLIA [id number] [place] [address] [place] Neutrophils (Bld) [#/Vol] 4.86 10*3/uL Normal 1.45-7.50 [facility] Comment on above: Order Comment: Speci men Type: BLOOD SPECIMENOrdering Facility: [facility] Address: [address] [place] [address] Performed By: #### 5 7021-8 ####[facility]ORATORYCLIA [id number] [address] [place] Neutrophils/100 WBC (Bld) 67.6 % Normal [facility] Comment on above: Order Comment: Speci men Type: BLOOD SPECIMENOrdering Facility: [facility] Address: [address] [place] [address] Performed By: #### 5 7021-8 ####[facility]ATORYCLIA [id number] [place] [address] [place] Nucleated RBC (Bld) [#/Vol] 10*3/uL Normal <0.01 [facility] Comment on above: Order Comment: Speci men Type: BLOOD SPECIMENOrdering Facility: [facility] Address: [address] [place] [address] Performed By: #### 5 7021-8 ####[facility]ATORYCLIA [id number] [address] [place] Nucleated RBC/100 WBC (Bld) [Ratio] 0.0 /100 WBC Normal [facility] Comment on above: Order Comment: Speci men Type: BLOOD SPECIMENOrdering Facility: [facility] Address: [address] [place] [address] Performed By: #### 5 7021-8 ####[facility]ORATORYCLIA [id number] [address] [place] Platelet mean volume (Bld) [Entitic vol] 9.9 fL Normal 9.0-12.7 [facility] Comment on above: Order Comment: Speci men Type: BLOOD SPECIMENOrdering Facility: [facility] Address: [address] [place] [address] Performed By: #### 5 7021-8 ####[facility]ORATORYCLIA [id number] [place] [address] [facility] Platelets (Bld) [#/Vol] 212 10*3/uL Normal 150-400 [facility] Comment on above: Order Comment: Speci men Type: BLOOD SPECIMENOrdering Facility: [facility] Address: [address] [place] [address] Performed By: #### 5 7021-8 ####[facility]ATORYCLIA [id number] [address] OF [facility] RBC (Bld) [#/Vol] 4.38 10*6/uL Normal 3.90-5.20 [facility] Comment on above: Order Comment: Speci men Type: BLOOD SPECIMENOrdering Facility: [facility] Address: [address] [place] [address] Performed By: #### 5 7021-8 ####[facility]ATORYCLIA [id number] [address] WBC (Bld) [#/Vol] 7.18 10*3/uL Normal 3.70-11.00 [facility] Comment on above: Order Comment: Speci men Type: BLOOD SPECIMENOrdering Facility: [facility] Address: [address] [place] [address] Performed By: #### 5 7021-8 ####[facility]ORATORYCLIA [id number] [address] ED NOTEon 09-25-2023 ED NOTE HNO ID: [id number] Author: Eusebio Harley, HARSHAL Service: ? Author Type: Registered Nurse Type: ED Notes Filed: 09/25/2023 11:24 AM Note Text: Pt given d/c paperwork and instructions by resident. [facility] ED NOTE HNO ID: [id number] Author: Gil Brennan I, RN Service: Nursing Author Type: Registered Nurse Type: ED Notes Filed: 09/25/2023 7:11 AM Note Text: MRI form completed and faxed to MRI Normal [facility] ED PROV NOTEon 09-25-2023 ED PROV NOTE HNO ID: [id number] Author: Tao Marinelli DO Service: Emergency Medicine Author Type: Resident Type: ED Provider Notes Filed: 09/25/2023 12:59 PM Note Text: Attestation signed by Al Chandra MD at 10/27/2023 9:08 AM Attending Note I evaluated the patient and personally participated in the elias components. I agree with the resident's findings and plan as documented and have discussed the case and management of the patient's care with the resident. Signature: Al Chandra MD Date: 10/27/2023 Time: 9:07 AM Patient signed out to me by Dr. Bradford at 0700. In short this is a 38-year-old female, with history of idiopathic intracranial hypertension with multiple lumbar punctures, who presents to the ED with back pain after receiving #137 LP yesterday at [facility] via IR. No headaches or focal neurological deficits. Disposition pending MRI of the thoracic and lumbar spine. MRI of the thoracic and lumbar spine was negative for acute process. No evidence of epidural subdural collection. I discussed the results with the patient. She is requesting additional pain medicine, stronger than tramadol, to get her through the next 2 days until she has an appointment with her doctor on Wednesday. Patient states that her doctor counts her tramadol and she is not allowed to take any extra. I prescribed her 6 doses of Percocet to get her through the weekend. All questions answered. Patient discharged in stable condition. TAO MARINELLI 09/25/23 1259 CHANDRA AL Maicol 10/27/23 0908 Normal [facility] ED PROV NOTE HNO ID: [id number] Author: Steve Bullard MD Service: Emergency Medicine Author Type: Physician Type: ED Provider Notes Filed: 09/30/2023 4:01 AM Note Text: ED Provider Note Patient Name: Lexis Nguyen : 1985 SERVICE DATE: 09/25/23 History Patient presents with: Back Pain: Pt arrives ambulatory through triage for complaints of back pain and pressure headache . Pt states she has intracranial hypertension which requires her to get a spinal tap every month to drain excess CSF. Pt states 137 spinal taps as of today. Pt came in today because of increased pain and is concerned that something more might be going on. Pt states a lot of scarring on her back from so many spinal taps. Pt aANDox3 at this time. No other complaints Patient is a 38-year-old female presenting emergency department for back pain. She has a past medical history of epilepsy and idiopathic intracranial hypertension. Patient states that she received her 137 spinal tap yesterday morning at [facility] by IR. She states that around 2 AM this morning she started having excruciating back pain. She denies no new injuries or trauma to her back. She states that the back pain is higher than the area that they performed the LP on today. States this is happened 2-3 times in the past where the pain has been this bad. She states those times it was nerve damage or scar tissue that was causing pain. Denies fevers, chills, headache, visual disturbance, weakness. Endorses tingling down her left leg. Denies IV drug use. Denies bowel or bladder incontinence or saddle anesthesia. 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 Shunt - removed in 2009 due to infection REMOVAL GALLBLADDER 2015 TONSILLECTOMY HX 2006 FAMILY HISTORY Problem Relation Age of Onset COPD Mother Diabetes Father Ischemic Heart Disease Father Stroke Father Skin Cancer Father Difficulty with anesthesia No Family History Anesthesia Problems No Family History Social History Tobacco Use Smoking status: Never Smokeless tobacco: Never Substance and Sexual Activity Alcohol use: Not Currently Comment: Rare Drug use: Yes Frequency: 7.0 times per week Comment: medical marijuana-vaping Sexual activity: Not on file Comment: Not asked ALLERGIES Allergen Reactions Nsaids (Non-Steroid* GI Upset, Contraindication-Medic al Surgical Because of gastric bypass Cavanaugh Pepper Rash Gabapentin Mental Status Change, Other: See Comments Tremors Penicillins Hives, Rash Received IV cefazolin at [facility] in 2018 and 2020 prior to procedures Received IV cefazolin at [facility] in 2019 and 2020 prior to procedures Review of Systems Constitutional: Negative for chills and fever. HENT: Negative for congestion and sore throat. Respiratory: Negative for cough, shortness of breath and wheezing. Cardiovascular: Negative for chest pain, palpitations and leg swelling. Gastrointestinal: Negative for abdominal pain, diarrhea, nausea and vomiting. Genitourinary: Negative for dysuria, flank pain and hematuria. Musculoskeletal: Positive for back pain. Negative for gait problem and neck pain. Neurological: Negative for dizziness, syncope, weakness, light-headedness, numbness and headaches. All other systems reviewed and are negative. Physical Exam Vitals [09/25/23 0526] BP Pulse Temp Temp src Resp SpO2 Weight Height 124/92 (!) 95 36.4 ?C (97.5 ?F) Oral 16 100 % 122.5 kg (270 lb) -- Physical Exam Vitals and nursing note reviewed. Constitutional: General: She is not in acute distress. Appearance: She is not toxic-appearing or diaphoretic. HENT: Head: Normocephalic and atraumatic. Eyes: Extraocular Movements: Extraocular movements intact. Conjunctiva/sclera: Conjunctivae normal. Pupils: Pupils are equal, round, and reactive to light. Cardiovascular: Rate and Rhythm: Normal rate and regular rhythm. Pulses: Normal pulses. Heart sounds: Normal heart sounds. No murmur heard. No friction rub. No gallop. Pulmonary: Effort: Pulmonary effort is normal. Breath sounds: Normal breath sounds. No wheezing, rhonchi or rales. Abdominal: General: Abdomen is flat. Palpations: Abdomen is soft. Tenderness: There is no abdominal tenderness. There is no guarding or rebound. Musculoskeletal: General: Normal range of motion. Cervical back: Normal range of motion and neck supple. No bony tenderness. Thoracic back: Bony tenderness (more content not included)... Normal [facility] MRI LUMBAR SPINE WO/W IVCONo n 09-25-2023 MRI LUMBAR SPINE WO/W IVCON * * *Final Report* * * DATE OF EXAM: Sep 25 2023 10:18AM [facility] 0304 - MRI LUMBAR SPINE WO/W IVCON / PROCEDURE REASON: Lumbar radiculopathy, prior surgery, new symptoms * * * * Physician Interpretation * * * * EXAMINATION: MRI THORACIC SPINE WO/W IVCON, MRI LUMBAR SPINE WO/W IVCON CLINICAL HISTORY: Lumbar radiculopathy, prior surgery, new symptoms back pain after lumbar puncture TECHNIQUE: Routine lumbosacral and thoracic spine MR protocol without and with intravenous gadolinium. MQ: [id number] Contrast: IV administration of 20 ml of Dotarem COMPARISON: CT lumbar spine 01/17/2023 RESULT: THORACIC: Counting reference: Craniocervical and lumbosacral junctions. For the purposes of this report, L4-5 is considered the level of the iliac crest and assume there are 5 lumbar-type vertebrae. Anatomic variant: None. Localizer images: No significant findings Alignment: Alignment is anatomic. Cord: The thoracic spinal cord is within normal limits of signal intensity and morphology. No pathologic intradural enhancement on postcontrast imaging. Bone marrow signal/fracture: No evidence of pathologic marrow infiltration. No evidence of prior fracture. Posterior elements are normal in morphology and alignment. Thoracic soft tissues: The paraspinal soft tissues are within normal limits. Canal and foramina: The thoracic canal and foramina are patent within the constraints of the study. LUMBAR: Counting reference: Craniocervical and lumbosacral junctions. For the purposes of this report, L4-5 is considered the level of the iliac crest and assume there are 5 lumbar-type vertebrae. Anatomic variant: None. Localizer images: Unremarkable. Alignment: Mild levoconvex curvature of the lumbar spine with apex at L3. Bone marrow signal/fracture: No evidence of pathologic marrow infiltration. No evidence of prior fracture. Intraosseous hemangioma in the anterior L4 vertebral body. Conus: There is minimal dural thickening and enhancement along the dorsal margin of the thecal sac at the L2-L3 to L4-L5 levels, which may reflect post procedural changes from recent lumbar puncture. There is no evidence of an epidural or subdural collection. Minimal subtle enhancement of some cauda equina nerve roots at the L3-L4 level (series 10, image 11, image 14-16) could reflect mild radiculoneuropathy reactive to recent procedure, lumbar puncture. Otherwise, no significant pathologic intradural enhancement is noted on postcontrast imaging. The conus is within normal limits of signal intensity and morphology. The conus terminates at the mid L1 level. Paraspinal soft tissues: Paraspinal soft tissues are within normal limits. L1-L2: Canal and foramina are patent. L2-L3: Canal and foramina are patent L3-L4: Mild bilateral foraminal stenoses from facet hypertrophy. Mild disc height loss and disc bulging with minimal canal stenosis from facet and ligamentous hypertrophy. L4-L5: Moderate canal stenosis from disc bulging and disc height loss, facet and ligamentous hypertrophy with a superimposed central disc protrusion resulting in effacement of the subarticular zones and mild impingement of the traversing L5 nerves. Mild to moderate bilateral foraminal stenoses from facet hypertrophy. L5-S1: Bilateral facet hypertrophy. No significant canal or foraminal stenosis. Sacrum and iliac wings: The visualized sacrum and iliac wings are within normal limits. The presacral soft tissues are normal in appearance. IMPRESSION: Unremarkable MRI of the thoracic spine. No evidence of an epidural or subdural collection. Normal signal and morphology of the thoracic cord without pathologic enhancement. Mild dorsal dural thickening/enhancement along the dorsal lumbar canal at L2-L5 with subtle minimal enhancement of some cauda equina nerve roots at L3-L4, which could reflect reactive postprocedural changes from recent lumbar puncture. No evidence of a subdural or epidural collection in the lumbar spine. No significant abnormality in the dorsal paraspinal soft tissues. Lumbar spondylosis with a central disc protrusion at L4-L5 resulting in moderate canal stenosis and mild effacement of the subarticular zones. Mild to moderate foraminal stenoses at this level. Anatomic Thoracic/Lumbar Variant: None. L4-5 is considered the level of the iliac crest and assume there are 5 lumbar-type vertebrae. Heel Nailing Machine Operator: MILI Transcribe Date/Time: Sep 25 2023 10:22A Dictated by : RAIZA RAJPUT MD This examination was interpreted and the report reviewed and electronically signed by: RAIZA RAJPUT MD on Sep 25 2023 10:35AM EST [id number] Normal [facility] MRI THORACIC SPINE WO/W IVCO Non 09-25-2023 MRI THORACIC SPINE WO/W IVCON * * *Final Report* * * DATE OF EXAM: Sep 25 2023 10:18AM [facility] 0326 - MRI THORACIC SPINE WO/W IVCON / PROCEDURE REASON: Lumbar radiculopathy, prior surgery, new symptoms * * * * Physician Interpretation * * * * EXAMINATION: MRI THORACIC SPINE WO/W IVCON, MRI LUMBAR SPINE WO/W IVCON CLINICAL HISTORY: Lumbar radiculopathy, prior surgery, new symptoms back pain after lumbar puncture TECHNIQUE: Routine lumbosacral and thoracic spine MR protocol without and with intravenous gadolinium. MQ: [id number] Contrast: IV administration of 20 ml of Dotarem COMPARISON: CT lumbar spine 01/17/2023 RESULT: THORACIC: Counting reference: Craniocervical and lumbosacral junctions. For the purposes of this report, L4-5 is considered the level of the iliac crest and assume there are 5 lumbar-type vertebrae. Anatomic variant: None. Localizer images: No significant findings Alignment: Alignment is anatomic. Cord: The thoracic spinal cord is within normal limits of signal intensity and morphology. No pathologic intradural enhancement on postcontrast imaging. Bone marrow signal/fracture: No evidence of pathologic marrow infiltration. No evidence of prior fracture. Posterior elements are normal in morphology and alignment. Thoracic soft tissues: The paraspinal soft tissues are within normal limits. Canal and foramina: The thoracic canal and foramina are patent within the constraints of the study. LUMBAR: Counting reference: Craniocervical and lumbosacral junctions. For the purposes of this report, L4-5 is considered the level of the iliac crest and assume there are 5 lumbar-type vertebrae. Anatomic variant: None. Localizer images: Unremarkable. Alignment: Mild levoconvex curvature of the lumbar spine with apex at L3. Bone marrow signal/fracture: No evidence of pathologic marrow infiltration. No evidence of prior fracture. Intraosseous hemangioma in the anterior L4 vertebral body. Conus: There is minimal dural thickening and enhancement along the dorsal margin of the thecal sac at the L2-L3 to L4-L5 levels, which may reflect post procedural changes from recent lumbar puncture. There is no evidence of an epidural or subdural collection. Minimal subtle enhancement of some cauda equina nerve roots at the L3-L4 level (series 10, image 11, image 14-16) could reflect mild radiculoneuropathy reactive to recent procedure, lumbar puncture. Otherwise, no significant pathologic intradural enhancement is noted on postcontrast imaging. The conus is within normal limits of signal intensity and morphology. The conus terminates at the mid L1 level. Paraspinal soft tissues: Paraspinal soft tissues are within normal limits. L1-L2: Canal and foramina are patent. L2-L3: Canal and foramina are patent L3-L4: Mild bilateral foraminal stenoses from facet hypertrophy. Mild disc height loss and disc bulging with minimal canal stenosis from facet and ligamentous hypertrophy. L4-L5: Moderate canal stenosis from disc bulging and disc height loss, facet and ligamentous hypertrophy with a superimposed central disc protrusion resulting in effacement of the subarticular zones and mild impingement of the traversing L5 nerves. Mild to moderate bilateral foraminal stenoses from facet hypertrophy. L5-S1: Bilateral facet hypertrophy. No significant canal or foraminal stenosis. Sacrum and iliac wings: The visualized sacrum and iliac wings are within normal limits. The presacral soft tissues are normal in appearance. IMPRESSION: Unremarkable MRI of the thoracic spine. No evidence of an epidural or subdural collection. Normal signal and morphology of the thoracic cord without pathologic enhancement. Mild dorsal dural thickening/enhancement along the dorsal lumbar canal at L2-L5 with subtle minimal enhancement of some cauda equina nerve roots at L3-L4, which could reflect reactive postprocedural changes from recent lumbar puncture. No evidence of a subdural or epidural collection in the lumbar spine. No significant abnormality in the dorsal paraspinal soft tissues. Lumbar spondylosis with a central disc protrusion at L4-L5 resulting in moderate canal stenosis and mild effacement of the subarticular zones. Mild to moderate foraminal stenoses at this level. Anatomic Thoracic/Lumbar Variant: None. L4-5 is considered the level of the iliac crest and assume there are 5 lumbar-type vertebrae. Heel Nailing Machine Operator: MILI Transcribe Date/Time: Sep 25 2023 10:22A Dictated by : RAIZA RAJPUT MD This examination was interpreted and the report reviewed and electronically signed by: RAIZA RAJPUT MD on Sep 25 2023 10:35AM EST [id number] Normal [facility] ACTIVATED PTTon 06-04-2023 aPTT Coag (PPP) [Time] 25.1 s 23.0 - 32.4 sec [facility] CBC panel Auto (Bld)on 06-04 Erythrocyte distribution width (RBC) [Ratio] 13.1 % 11.5 - 15.0 % [facility] Hematocrit (Bld) [Volume fraction] 43.7 % 36.0 - 46.0 % [facility] Hemoglobin (Bld) [Mass/Vol] 14.1 g/dL 11.5 - 15.5 g/dL [facility] MCH (RBC) [Entitic mass] 31.1 pg 26. 0 - 34.0 pg [facility] MCHC (RBC) [Mass/Vol] 32.3 g/dL 30.5 - 36.0 g/dL [facility] MCV (RBC) [Entitic vol] 96.5 fL 80.0 - 100.0 fL [facility] Nucleated RBC (Bld) [#/Vol] <0.01 k/uL [facility] Platelet mean volume (Bld) [Entitic vol] 10.4 fL 9.0 - 12.7 fL [facility] Platelets (Bld) [#/Vol] 244 10*3/uL 150 - 400 k/uL [facility] RBC (Bld) [#/Vol] 4.53 10*6/uL 3.90 - 5.2 0 m/uL [facility] WBC (Bld) [#/Vol] 10.17 10*3/uL 3.70 - 11.00 k/uL [facility] PT panel Coag (PPP)on 2022 INR Coag (PPP) [Relative time] 1.0 {INR} 0.9 - 1.3 [facility] PT Coag (PPP) [Time] 9.9 s 9.7 - 1 3.0 sec [facility] HISTORY PHYSICALon HISTORY PHYSICAL HNO ID: [id number] Author: Lexis Razo PA-C Service: ? Author Type: Physician Home Care Attendant Type: HANDP Filed: 04/01/2023 7:52 AM Note Text: PREANESTHESIA CONSULT CLINIC TELEHEALTH VISIT Patient has been identified by name and date of : Yes This is a virtual visit using [employer] video visit. It required patient-provider interaction for the medical decision making as documented below. I have communicated my name and active licensure. The patient's identity and physical location were verified at the time of this visit. Either the patient or their legal patient accounting representative has been informed of the risks and benefits of and alternatives to treatment through a remote evaluation and consents to proceed with the evaluation remotely. Reason for contact: PACC visit Accompanied by: Self Scheduled Surgery: Procedure(s) (LRB): SPINAL PUNCTURE LUMBAR DIAGNOSTIC (N/A) Subjective CHIEF COMPLAINT: Patient presents with: Pre-Op Visit HPI: This is a 38 year old female who presents for preanesthesia consultation. Patient has had issues with chronic headaches for several years. Patient was diagnosed with idiopathic intracranial hypertension in 2006. She had CASINO BANKER shunt placed in 2009 but was removed a couple months later due to an infection. Since she cannot have shunt, she has to get regular lumbar punctures. She has had 132 lumbar punctures since 2009. Her last 1 was done 02/17/2023. About 3 weeks ago she started having flare in symptoms that when she bends over and stands up she has vision changes from the pressure shift in her head. She also gets headaches. Usually has a get a lumbar puncture once a month. Had a brain angiogram done 03/12/2023 that was normal. ACTIVE PROBLEM LIST Anxiety Epilepsy (Hcc) Gastroesophageal Reflux Disease Major Depression, Single Episode Morbid Obesity (Hcc) Iih (Idiopathic Intracranial Hypertension) Difficult Intravenous Access Morbid Obesity With Bmi of 45.0-49.9, Adult (Hcc) Idiopathic Intracranial Hypertension Headaches S/P Gastric Bypass Medical Marijuana Use PAST MEDICAL HISTORY Diagnosis Date Difficult intravenous access 02/16/2023 Epilepsy (HCC) IIH (idiopathic intracranial hypertension) PAST SURGICAL HISTORY Procedure Laterality Date APPENDIX NET-EXCIS(APPENDECTOMY )SYNOPTIC 2007 GASTRIC BYPASS HX 2014 HYSTERECTOMY 2021 PAST SURGICAL HISTORY OF 2019 collar bone fracture (hardware placement and removal) PAST SURGICAL HISTORY OF lumbar punctures (132) PAST SURGICAL HISTORY OF 02/2023 brain angiogram PAST SURGICAL HISTORY OF 2009 CASINO BANKER Shunt - removed in 2009 due to infection REMOVAL GALLBLADDER 2015 TONSILLECTOMY HX 2006 FAMILY HISTORY Problem Relation Age of Onset COPD Mother Diabetes Father Ischemic Heart Disease Father Stroke Father Skin Cancer Father Difficulty with anesthesia No Family History Anesthesia Problems No Family History Social History Tobacco Use Smoking status: Never Smokeless tobacco: Never Substance Use Topics Alcohol use: Not Currently Comment: Rare Drug use: Yes Frequency: 7.0 times per week Comment: medical marijuana-vaping ALLERGIES Allergen Reactions Nsaids (Non-Steroid* GI Upset, Contraindication-Medic al Surgical Because of gastric bypass Green Pepper Rash Gabapentin Mental Status Change, Other: See Comments Tremors Penicillins Hives, Rash Received IV cefazolin at [facility] in 2018 and 2020 prior to procedures Received IV cefazolin at [facility] in 2018 and 2020 prior to procedures MEDICATIONS: Current Outpatient Medications Medication Sig cyanocobalamin (VITAMIN B-12) 1,000 mcg tab Take 1 tablet by mouth once daily. lacosamide (VIMPAT) 200 mg Take 1 tablet by mouth twice daily. ARIPiprazole (ABILIFY) 10 mg tablet Take 10 mg by mouth once daily. nortriptyline (PAMELOR) 75 mg capsule Take 75 mg by mouth once daily. DULoxetine (CYMBALTA) 60 mg capsule duloxetine 60 mg capsule,delayed release TAKE 1 CAPSULE BY MOUTH TWICE DAILY Calcium Citrate 250 mg calcium tab Take 1 tablet by mouth once daily. omeprazole (PRILOSEC) 20 mg capsule Take 1 capsule by mouth once daily. traMADol (ULTRAM) 50 mg tablet Take 1 tablet by mouth twice daily as needed for pain. lidocaine, PF, (XYLOCAINE) 10 mg/mL (1 %) soln injection 1-10 mL by INTRADERMAL route as needed. For use during PICC/Midline Insertion ONLY. Current Facility-Administered Medications Medication Dose Route Frequency fluorescein-benoxinate 0.25-0.4 % 1 Drop (FLURESS) 1 Drop BOTH EYES As Directed proparacaine 0.5 % 1 Drop (ALCAINE) 1 Drop BOTH EYES As Directed Covid Immunization Dates Overdue - COVID-19 VACCINE (3 - Booster for Moderna series) Overdue since 05/28/2021 04/02/2021 Imm Admin: COVID-19 original vaccine, full dose, monovalent (MODERNA) 03/05/2021 Imm Admin: COVID-19 original vaccine, full dose, monovalent (MODERNA) REVIEW OF SYSTEMS: Pain Assessment: General: No weight loss, malaise o (more content not included)... Normal [facility] HbA1c (Bld)on 03-22-2023 Average glucose Estimated from glycated hemoglobin (Bld) [Mass/Vol] 100 mg/dL [facility] HbA1c (Bld) [Mass fraction] 5.1 % 4.3 - 5.6 % [facility] IR LUMBAR PUNCTUREon 023 IR LUMBAR PUNCTURE ORIGINAL EXAMINATION: FLUOROSCOPIC GUIDED LUMBAR PUNCTURE 12/03/2022 1:39 pm HISTORY: ORDERING SYSTEM PROVIDED HISTORY: Reason for Exam: Benign intracranial hypertension FLUOROSCOPY DOSE AND TYPE OR TIME AND EXPOSURES: Fluoroscopy time: 2.0 minute Air kerma: 260 mg images: 3 SEDATION: General anesthesia PROCEDURE: STATION BAGGAGE PORTER: Norbert Parra Informed consent was obtained after the risks and benefits of the procedure were discussed with the patient and all questions were answered fully. [place] protocol was observed and a standard timeout was performed. The patient was positioned in a left lateral position and the back was prepped and draped in the normal sterile fashion. 1% lidocaine was used for local anesthesia. The subarachnoid space was accessed with a 20-gauge 3.5 spinal needle at the L2/L3 level. Free flow of clear CSF was noted. Approximately 20 ml of CSF was removed and sent for analysis. The stylet was reinserted, spinal needle was removed and brief pressure was applied at the puncture site. There were no immediate complications and the patient tolerated the procedure well. Opening pressure was 22 H20 Closing pressure is 12 H20 IMPRESSION: Successful fluoroscopic-guided therapeutic lumbar puncture. Interpreted by: Jazmine Parra Preliminary Report By: Jazmine Parra Electronically signed By Jazmine Parra Dictated Date: 12/03/2022 7:27:03 PM Prelim Date: 12/03/2022 7:34:07 PM Sign Date: 12/03/2022 7:34:07 PM Ordering Provider: NEREYDA Webb [facility] ([place]) PLTon 12-03-2022 Platelet 209 10 3/mcL Normal 150-450 [facility]) Comment on above: Performed By: #### P LT, PRO #### [place] [address] [address] PROon 12-03-2022 INR Coag (PPP) [Relative time] 0.9 {INR} Normal [facility] ([place]) Comment on above: Result Comment: The [employer] (CHEST, 1991, 102:312S-25S) recommended therapeutic range for oral anticoagulant therapy is: LOW RISK: Prophylaxis of venous thrombosis INR: 2.0-3.0 Treatment of pulmonary embolism 2.0-3.0 Prevention of systemic embolism 2.0-3.0 HIGH RISK: Mechanical prosthetic valves 2.5-3.5 Performed By: #### P LT, PRO #### [place] [address] PT Coag (PPP) [Time] 11.2 s Normal 9.0-14.9 [facility] ([place]) Comment on above: Result Comment: Effe ctive 06/05/08, Protime results may be affected by some antibiotics (i.e. Ciprofloxacin, Azithromycin, Bactrim) which may potentiate the action of oral anticoagulants, with further increase in Protime/INR. Performed By: #### P LT, PRO #### [place] [address] LABORATORYOrdered By: Marquez Jack on 09-24-2022 INR Coag (PPP) [Relative time] 1.0 {INR} Invalid Interpretation Code AH Auto Coag SS PT Coag (PPP) [Time] 11.4 s Invalid Interpretation Code 9.0 - 14.9 seconds AH Auto Coag SS LABORATORYOrdered By: SYSTEM SYSTEM on 09-24-2022 Platelets (Bld) [#/Vol] 200 103/mcL Invalid Interpretation Code 150 - 450 10^3/mcL AH Workflow SS PLTon 09-24-2022 Platelet 200 10 3/mcL Normal 150-450 [facility] ([place]) Comment on above: Performed By: #### P RO #### [place] [address] PROon 09-24-2022 INR Coag (PPP) [Relative time] 1.0 {INR} Normal [facility] ([place]) Comment on above: Result Comment: The [employer] (CHEST, 1991, 102:312S-25S) recommended therapeutic range for oral anticoagulant therapy is: LOW RISK: Prophylaxis of venous thrombosis INR: 2.0-3.0 Treatment of pulmonary embolism 2.0-3.0 Prevention of systemic embolism 2.0-3.0 HIGH RISK: Mechanical prosthetic valves 2.5-3.5 Performed By: #### P RO #### [address] [address] PT Coag (PPP) [Time] 11.4 s Normal 9.0-14.9 [facility] ([place]) Comment on above: Result Comment: Effe ctive 06/05/08, Protime results may be affected by some antibiotics (i.e. Ciprofloxacin, Azithromycin, Bactrim) which may potentiate the action of oral anticoagulants, with further increases in Protime/INR. Performed By: #### P RO #### [place] [address] .Auto Diffon 09-17-2022 Basophil, Absolute 0.0 10 3/mcL Normal 0.0-0.3 [facility] ([place]) Comment on above: Performed By: #### B MP, GFR #### [place] [address] Basophils/100 WBC (Bld) 0.5 % Normal 0.0-2.5 A [facility] ([place]) Comment on above: Performed By: #### B MP, GFR #### [address] [address] Eosinophil, Absolute 0.1 10 3/mcL Normal 0.0-0.7 [facility] ([place]) Comment on above: Performed By: #### B MP, GFR #### [address] [address] Eosinophils/100 WBC (Bld) 1.1 % Normal 0.0-6.0 [facility] ([place]) Comment on above: Performed By: #### B MP, GFR #### [address] [address] Lymphocyte, Absolute 2.2 10 3/mcL Normal 0.9-4.3 [facility] ([place] Comment on above: Performed By: #### B MP, GFR #### [facility] [address] [place], [place] [address] Lymphocytes/100 WBC (Bld) 32.9 % Normal 20.0-40.0 [facility] ([place]) Comment on above: Performed By: #### B MP, GFR #### [address] [address] Monocyte, Absolute 0.4 10 3/mcL Normal 0.1-1.4 [facility] ([place] Comment on above: Performed By: #### B MP, GFR #### [address] [address] Monocytes/100 WBC (Bld) 6.6 % Normal 2.0-13.0 A [facility] ([place]) Comment on above: Performed By: #### B MP, GFR #### [address] [address] Neutrophils/100 WBC (Bld) 58.9 % Normal 50.0-75.0 [facility] ([place]) Comment on above: Performed By: #### B MP, GFR #### [address] [address] .GFRon 09-17-2022 GFR >60 Normal [facility] ([place]) Comment on above: Result Comment: GFR Population mean for , Non- Americans Ages 20-29 = 116 mL/min/1.73 sq.m. Ages 30-39 = 107 mL/min/1.73 sq.m. Ages 40-49 = 99 mL/min/1.73 sq.m. Ages 50-59 = 93 mL/min/1.73 sq.m. Ages 60-69 = 85 mL/min/1.73 sq.m. Ages 70+ = 75 mL/min/1.73 sq.m. Chronic Kidney Disease: Less than 60 mL/min/1.73 square meters End Stage Renal Disease: Less than 15 mL/min/1.73 square meters Performed By: #### B MP, GFR #### [address] [address] GFR Non- >60 Normal [facility] ([place]) Comment on above: Result Comment: GFR Population mean for , Non- Americans Ages 20-29 = 116 mL/min/1.73 sq.m. Ages 30-39 = 107 mL/min/1.73 sq.m. Ages 40-49 = 99 mL/min/1.73 sq.m. Ages 50-59 = 93 mL/min/1.73 sq.m. Ages 60-69 = 85 mL/min/1.73 sq.m. Ages 70+ = 75 mL/min/1.73 sq.m. Chronic Kidney Disease: Less than 60 mL/min/1.73 square meters End Stage Renal Disease: Less than 15 mL/min/1.73 square meters Performed By: #### B MP, GFR #### [address] [address] .NEUABSon 09-17-2022 Neutrophil, Absolute 3.9 10 3/mcL Normal 2.3-8.1 [facility] ([place] Comment on above: Performed By: #### B MP, GFR #### [address] [address] BMPon 09-17-2022 BUN/Creatinine Ratio 21.2 ratio Normal 10.0-22.0 [facility] ([place]) Comment on above: Performed By: #### B MP, GFR #### [address] [address] Calcium [Mass/Vol] 8.7 mg/dL Normal 8.7-10.4 [facility] ([place]) Comment on above: Performed By: #### B MP, GFR #### [address] [address] Chloride [Moles/Vol] 105 mmol/L Normal 98-110 [facility] ([place]) Comment on above: Performed By: #### B MP, GFR #### [address] [address] CO2 [Moles/Vol] 31 mmol/L Normal 22-32 [facility] ([place] Comment on above: Performed By: #### B MP, GFR #### [address] [address] Creatinine [Mass/Vol] 0.66 mg/dL Normal 0.50-1.20 [facility] ([place]) Comment on above: Performed By: #### B MP, GFR #### [address] [address] Electrolyte Balance 4.0 mEq/L Normal 4.0-15.0 [facility] ([place] Comment on above: Performed By: #### B MP, GFR #### [address] [address] Glucose [Mass/Vol] 84 mg/dL Normal 70-110 [facility] ([place] Comment on above: Performed By: #### B MP, GFR #### [address] [address] Potassium [Moles/Vol] 4.7 mmol/L Normal 3.5-5.0 [facility] ([place]) Comment on above: Performed By: #### B MP, GFR #### [address] [address] Sodium [Moles/Vol] 140 mmol/L Normal 136-145 [facility] ([place] Comment on above: Performed By: #### B MP, GFR #### [address] [address] Urea nitrogen [Mass/Vol] 14.0 mg/dL Normal 8.0-22.0 [facility] ([place] Comment on above: Performed By: #### B MP, GFR #### [address] [address] CBCon 09-17-2022 Erythrocyte distribution width (RBC) [Ratio] 12.6 % Normal 11.5-15.5 [facility] ([place] Comment on above: Performed By: #### B MP, GFR #### [address] [address] Hematocrit (Bld) [Volume fraction] 38.9 % Normal 34.0-46.0 [facility] ([place] Comment on above: Performed By: #### B MP, GFR #### [address] [address] Hgb 13.1 G/dL Normal 12.0-16.0 [facility] ([place] Comment on above: Performed By: #### B MP, GFR #### [address] [address] MCH (RBC) [Entitic mass] 32.2 pg Normal 27.0-33.0 [facility] ([place] Comment on above: Performed By: #### B MP, GFR #### [place] [id number] MCHC 33.7 G/dL Normal 32.0-36.0 [facility] ([place] Comment on above: Performed By: #### B MP, GFR #### [place] [address] MCV (RBC) [Entitic vol] 95.5 fL Normal 80.0-99.0 A [facility] ([place]) Comment on above: Performed By: #### B MP, GFR #### [place] [id number] Platelet 206 10 3/mcL Normal 150-450 [facility] ([place] Comment on above: Performed By: #### B MP, GFR #### [place] [address] Platelet mean volume (Bld) [Entitic vol] 8.4 fL Normal 6.6-10.5 [facility] ([place] Comment on above: Performed By: #### B MP, GFR #### [place] [address] RBC 4.08 10 6/mcL Low 4.10-5.30 [facility] ([place] Comment on above: Performed By: #### B MP, GFR #### [place] [address] WBC 6.6 10 3/mcL Normal 4.5-10.8 [facility] ([place] Comment on above: Performed By: #### B MP, GFR #### [place] [address] LACOSon 08-26-2022 Desmethyllacosamide <0.6 Normal <2.6 [facility] ([place] Comment on above: Result Comment: Expe cted concentration of patients receiving 200-400 mg/day is up to 2.5 ug/mL for Desmethyllacosamide. This test was developed and its performance characteristics determined by [facility] [place] ([facility]). It has not been cleared or approved by the FDA. -[facility] is regulated under CLIA as qualified to perform high-complexity testing. This test is used for clinical purposes. It should not be regarded as investigational or for research. Performed By: [facility] [employer] [address] [place] [id number] Hand Driller: Al Nj III, M.D. CLIA#: [id number] Performed By: #### P RO #### [address] [address] Lacosamide Test 5.2 UG/ML Normal 2.2-19.8 [facility] [facility] ([place]) Comment on above: Result Comment: Expe cted concentration of patients receiving 200-400 mg/day is 2.2-19.8 ug/mL for Lacosamide. This test was developed and its performance characteristics determined by [facility]'s [facility] [place] ([facility]). It has not been cleared or approved by the FDA. -[facility] is regulated under CLIA as qualified to perform high-complexity testing. This test is used for clinical purposes. It should not be regarded as investigational or for research. Performed By: [facility] [employer] [facility] [place] [address] Hand Driller: Al Nj III, M.D. CLIA#: [id number] Performed By: #### P RO #### [address] [address] BMP (POC)on 07-29-2022 BUN/Creatinine Ratio (POC) 17.2 ratio Normal 10.0-22.0 [facility] ([place]) Calcium Level Ionized (POC) 1.07 mmol/L Low 1.12-1.32 [facility] ([place]) Chloride [Moles/Vol] 104 mmol/L Normal 98-110 [facility] ([place] CO2 [Moles/Vol] 27 mmol/L Normal 22-32 [facility] [place]) Creatinine [Mass/Vol] 0.63 mg/dL Normal 0.50-1.20 [facility] ([place] Electrolyte Balance (POC) 10.0 mEq/L Normal 4.0-15.0 [facility] ([place] Est GFR (POC) >60 Normal [facility] ([place] Comment on above: Result Comment: Chronic Kidney Disease: Less than 60 mL/min/1.73 square meters End Stage Renal Disease: Less than 15 mL/min/1.73 square meters Est GFR Non- (POC) >60 Normal [facility] ([place] Comment on above: Result Comment: Chronic Kidney Disease: Less than 60 mL/min/1.73 square meters End Stage Renal Disease: Less than 15 mL/min/1.73 square meters Glucose [Mass/Vol] 108 mg/dL Normal 70-110 [facility]) Performing Instrument - POCT EPOC1 Normal [facility]) Potassium [Moles/Vol] 3.9 mmol/L Normal 3.5-5.0 [facility] ([place]) Sodium [Moles/Vol] 140 mmol/L Normal 136-145 [facility] ([place] Urea nitrogen [Mass/Vol] 11.0 mg/dL Normal 8.0-22.0 [facility]) CBC (POC)on 07-29-2022 Perf Loc - POCT Tested at AM Normal [facility]) Comment on above: Result Comment: [facility] [address] [place], [place] [address] Basophil, Absolute (POC) 0.03 10 3/mcL Normal 0.00-0.2 7 [facility] ([place] Basophils/100 WBC (Bld) 0.3 % Normal 0.0-2.5 A [facility] ([place] Eosinophil, Absolute (POC) 0.06 10 3/mcL Normal 0.00-0.65 [facility]) Eosinophils/100 WBC (Bld) 0.7 % Normal 0.0-6.0 [facility]) Erythrocyte distribution width (RBC) [Ratio] 12.3 % Normal 11.5-15.5 [facility]) Hematocrit (Bld) [Volume fraction] 41.2 % Normal 34.0-46.0 [facility]) Hemoglobin (POC) 13.8 G/dL Normal 12.0-16.0 [facility] ([place] Imm Granulocyte, Absolute (POC) 0.02 10 3/mcL Normal [facility] [place] Immature granulocytes/100 WBC (Bld) 0.2 % Normal [facility] [place] Lymphocyte, Absolute (POC) 1.83 10 3/mcL Normal 0.90-4.32 [facility]) Lymphocytes/100 WBC (Bld) 20.5 % Normal 20.0-40.0 [facility]) MCH (RBC) [Entitic mass] 32.2 pg Normal 27.0-33.0 [facility]) MCHC (POC) 33.5 G/dL Normal 32.0-36.0 [facility]) MCV (RBC) [Entitic vol] 96.3 fL Normal 80.0-99.0 A [facility]) Monocyte, Absolute (POC) 0.52 10 3/mcL Normal 0.09-1.4 0 [facility]) Monocytes/100 WBC (Bld) 5.8 % Normal 2.0-13.0 A [facility]) Neutrophil, Absolute (POC) 6.47 10 3/mcL Normal 2.25-8.10 [facility]) Neutrophils/100 WBC (Bld) 72.5 % Normal 50.0-75.0 [facility]) Performing Instrument - POCT SYSMEX Normal [facility]) Platelet (POC) 238 10 3/mcL Normal 150-450 [facility]) Platelet mean volume (Bld) [Entitic vol] 9.4 fL Normal 6.6-10.5 [facility]) RBC (POC) 4.28 10 6/mcL Low 4.50-6.00 [facility]) WBC (POC) 8.93 10 3/mcL Normal 4.50-10.80 [facility]) PREGU (POC)on 07-29-2022 Beta HCG ( test) Ql (U) Negative Normal [facility] ([place] Comment on above: Result Comment: A po sitive result indicates hCG detected. A negative result indicates hCG was not detected. An invalid result indicates internal control failure and testing should be repeated with a new test cassette. Performing Instrument - POCT LUKAS Normal [facility] ([place] Perf Loc - POCT Tested at AM Normal [facility] ([place] Comment on above: Result Comment: [facility] [place] [address] [place], [place] [address] UA (POC)on 07-29-2022 Perf Loc - POCT Tested at AM Normal [facility] ([place] Comment on above: Result Comment: [facility] [address] [place], [place] [address] Appearance (U) Clear Normal Clear [facility] [place] Bilirubin Ql (U) Negative Normal Neg-Trace [facility] [place] Color (U) Yellow Normal [facility] [place] Glucose Ql (U) Negative Normal Negative [facility] [place] Hemoglobin Ql (U) Negative Normal Neg-Trace [facility] [place] Ketones Ql (U) Negative Normal Neg-Trace [facility] [place] Leukocyte esterase Test strip Ql (U) Negative Normal Neg-Trace [facility] [place] Nitrite Ql (U) Negative Normal Negative [facility] [place] Performing Instrument - POCT CLINITEK Normal [facility] [place] pH (U) 6.5 [pH] Normal 5.0 - 8.0 [facility] ([place] Protein Ql (U) Negative Normal Neg-30 [facility] [place] Specific gravity (U) [Rel density] 1.010 Normal 1.006-1.029 [facility] [place] Urobilinogen Qn (U) 0.2 {Jasson'U}/dL Normal 0.2-1.0 [facility] ([place]) No Panel Information [facility] Vital Signs Date Time Vital Sign Value Performing Clinician Facility 07-04-2025 12:26-0400 Body height 162.56 cm Fede Davis MD Work Phone: [facility] 07-04-2025 12:26-0400 Body mass index (BMI) [Ratio] 39.4 kg/m2 Fede Davis MD Work Phone: [facility] 07-04-2025 12:26-0400 Body temperature 97.4 [degF] Fede Davis MD Work Phone: [facility] 07-04-2025 12:26-0400 Body weight 104.32 kg Fede Davis MD Work Phone: [facility] 07-04-2025 12:26-0400 Diastolic blood pressure 100 mm[Hg] Fede Davis MD Work Phone: [facility] 07-04-2025 12:26-0400 Heart rate 112 /min Fede Davis MD Work Phone: [facility] 07-04-2025 12:26-0400 Respiratory rate 18 /min Fede Davis MD Work Phone: [facility] 07-04-2025 12:26-0400 SaO2% (BldA) [Mass fraction] 98 % Fede Davis MD Work Phone: [facility] 07-04-2025 12:26-0400 Systolic blood pressure 137 mm[Hg] Fede Davis MD Work Phone: [facility] 07-04-2025 07:16-0400 Body height 162.6 cm Randall Roy Jr., DO Work Phone: [facility] 07-04-2025 07:16-0400 Body mass index (BMI) [Ratio] 39.48 kg/m2 Randall Roy Jr., DO Work Phone: [facility] 07-04-2025 07:16-0400 Body temperature 98.2 [degF] Randall Roy Jr., DO Work Phone: [facility] 07-04-2025 07:16-0400 Body weight 104.33 kg Randall Roy Jr., DO Work Phone: [facility] 07-04-2025 07:16-0400 Diastolic blood pressure 93 mm[Hg] Randall Roy Jr., DO Work Phone: [facility] [place] [facility] 07-04-2025 07:16-0400 Heart rate 90 /min Randall Roy Jr., DO Work Phone: [facility] [place] [facility] 07-04-2025 07:16-0400 Respiratory rate 18 /min Randall Roy Jr., DO Work Phone: [facility] [place] [facility] 07-04-2025 07:16-0400 SaO2% (BldA) [Mass fraction] 100 % Randall Roy Jr., DO Work Phone: [facility] [place] [facility] 07-04-2025 07:16-0400 Systolic blood pressure 130 mm[Hg] Randall Roy Jr., DO Work Phone: [facility] [place] [facility] 06-18-2025 13:35-0400 Diastolic blood pressure 78 mm[Hg] Fede Davis MD Work Phone: [facility] [place] [facility] 06-18-2025 13:35-0400 Heart rate 82 /min Fede Davis MD Work Phone: [facility] [place] [facility] 06-18-2025 13:35-0400 Respiratory rate 16 /min Fede Davis MD Work Phone: [facility] [place] [facility] 06-18-2025 13:35-0400 SaO2% (BldA) [Mass fraction] 100 % Fede Davis MD Work Phone: [facility] [place] [facility] 06-18-2025 13:35-0400 Systolic blood pressure 106 mm[Hg] Fede Davis MD Work Phone: [facility] [place] [facility] 06-18-2025 10:55-0400 Body temperature 97.7 [degF] Fede Davis MD Work Phone: [facility] [place] [facility] 06-18-2025 10:52-0400 Body height 162.6 cm Fede Davis MD Work Phone: [facility] [place] [facility] 06-18-2025 10:52-0400 Body mass index (BMI) [Ratio] 40.34 kg/m2 Fede Davis MD Work Phone: [facility] [place] [facility] 06-18-2025 10:52-0400 Body weight 106.59 kg Fede Davis MD Work Phone: [facility] 06-14-2025 14:11-0400 Body height 161.3 cm Veena Spann [employer] Work Phone: [facility] 06-14-2025 14:11-0400 Body mass index (BMI) [Ratio] 40.38 kg/m2 Veena Kingle [employer] Work Phone: [facility] 06-14-2025 14:11-0400 Body temperature 96.8 [degF] Veena Christinele [employer] Work Phone: [facility] 06-14-2025 14:11-0400 Body weight 105.05 kg Veena Kingle [employer] Work Phone: [facility] 06-14-2025 14:11-0400 Diastolic blood pressure 77 mm[Hg] Veena Kingle [employer] Work Phone: [facility] 06-14-2025 14:11-0400 Heart rate 83 /min Veena Kingle [employer] Work Phone: [facility] 06-14-2025 14:11-0400 Respiratory rate 16 /min Veena Kingle [employer] Work Phone: [facility] 06-14-2025 14:11-0400 Systolic blood pressure 106 mm[Hg] Veena Kingle [employer] Work Phone: [facility] 06-08-2025 07:09-0400 Body temperature 97.5 [degF] Tiffany Skiffey DO Work Phone: [facility] 06-08-2025 07:09-0400 Diastolic blood pressure 85 mm[Hg] Tiffany Skiffey DO Work Phone: [facility] [place] [facility] 06-08-2025 07:09-0400 Heart rate 82 /min Tiffany Skiffey DO Work Phone: [facility] 06-08-2025 07:09-0400 Respiratory rate 18 /min Tiffany Skiffey DO Work Phone: [facility] [place] [facility] 06-08-2025 07:09-0400 SaO2% (BldA) [Mass fraction] 99 % Tiffany Copelandffey DO Work Phone: [facility] [place] [facility] 06-08-2025 07:09-0400 Systolic blood pressure 112 mm[Hg] Tiffany Copelandffey DO Work Phone: [facility] 05-28-2025 09:37-0400 Body temperature 97 [degF] Rocco Thomason MD Work Phone: [facility] [place] [facility] 05-28-2025 09:37-0400 Diastolic blood pressure 75 mm[Hg] [facility] 05-28-2025 09:37-0400 Heart rate 94 /min Rocco Thomason MD Work Phone: [facility] 05-28-2025 09:37-0400 Respiratory rate 15 /min Rocco Thomason MD Work Phone: [facility] 05-28-2025 09:37-0400 SaO2% (BldA) [Mass fraction] 95 % Rocco Thomason MD Work Phone: [facility] 05-28-2025 09:37-0400 Systolic blood pressure 115 mm[Hg] Rocco Thomason MD Work Phone: [employer] [facility] 05-27-2025 08:38-0400 Body height 162.6 cm Rocco Thomason MD Work Phone: [facility] 05-27-2025 08:38-0400 Body mass index (BMI) [Ratio] 41.2 kg/m2 Rocco Thomason MD Work Phone: [facility] 05-27-2025 08:38-0400 Body weight 108.86 kg Rocco Thomason MD Work Phone: [facility] 05-26-2025 15:44-0400 Diastolic blood pressure 73 mm[Hg] Serafin Harley MD Work Phone: [facility] [place] [facility] 05-26-2025 15:44-0400 Heart rate 80 /min Serafin Harley MD Work Phone: [facility] [place] [facility] 05-26-2025 15:44-0400 Respiratory rate 16 /min Serafin Harley MD Work Phone: [facility] [place] [facility] 05-26-2025 15:44-0400 SaO2% (BldA) [Mass fraction] 99 % Serafin Harley MD Work Phone: [facility] [place] [facility] 05-26-2025 15:44-0400 Systolic blood pressure 110 mm[Hg] Serafin Harley MD Work Phone: [facility] [place] [facility] 05-26-2025 11:44-0400 Body temperature 98.91 [degF] Serafin Harley MD Work Phone: [facility] [place] [facility] 05-26-2025 11:42-0400 Body height 162.6 cm Serafin Harley MD Work Phone: [facility] [place] [facility] 05-26-2025 11:42-0400 Body mass index (BMI) [Ratio] 41.2 kg/m2 Serafin Harley MD Work Phone: [facility] [place] [facility] 05-26-2025 11:42-0400 Body weight 108.86 kg Serafin Harley MD Work Phone: [facility] [place] [facility] 05-22-2025 08:01-0400 Body temperature 97.5 [degF] Abner Azul MD Work Phone: [facility] [place] [facility] 05-22-2025 08:01-0400 Diastolic blood pressure 86 mm[Hg] Abner Azul MD Work Phone: [facility] [place] [facility] 05-22-2025 08:01-0400 Heart rate 82 /min Abner Azul MD Work Phone: [facility] [place] [facility] 05-22-2025 08:01-0400 Respiratory rate 16 /min Abner Azul MD Work Phone: [facility] [place] [facility] 05-22-2025 08:01-0400 SaO2% (BldA) [Mass fraction] 98 % Abner Azul MD Work Phone: [facility] [place] [facility] 05-22-2025 08:01-0400 Systolic blood pressure 126 mm[Hg] Abner Azul MD Work Phone: [facility] [place] [facility] 05-20-2025 17:56-0400 Body height 162.6 cm Abner Azul MD Work Phone: [facility] [place] [facility] 05-20-2025 17:56-0400 Body mass index (BMI) [Ratio] 41.2 kg/m2 Abner Azul MD Work Phone: [facility] [place] [facility] 05-20-2025 17:56-0400 Body weight 108.86 kg Abner Azul MD Work Phone: [facility] [place] [facility] 05-03-2025 10:25-0400 Diastolic blood pressure 66 mm[Hg] Randall Roy Jr., DO Work Phone: [facility] [place] [facility] 05-03-2025 10:25-0400 Heart rate 88 /min Randall Roy Jr., DO Work Phone: [facility] [place] [facility] 05-03-2025 10:25-0400 Respiratory rate 18 /min Randall Roy Jr., DO Work Phone: [facility] [place] [facility] 05-03-2025 10:25-0400 SaO2% (BldA) [Mass fraction] 99 % Randall Roy Jr., DO Work Phone: [facility] [place] [facility] 05-03-2025 10:25-0400 Systolic blood pressure 139 mm[Hg] Randall Roy Jr., DO Work Phone: [facility] [place] [facility] 05-03-2025 07:43-0400 Body temperature 96.8 [degF] Randall Roy Jr., DO Work Phone: [facility] [place] [facility] 05-03-2025 07:41-0400 Body height 162.6 cm Randall Roy Jr., DO Work Phone: [facility] [place] [facility] 05-03-2025 07:41-0400 Body mass index (BMI) [Ratio] 40.34 kg/m2 Randall Chowharsah Niño, DO Work Phone: [facility] [place] [facility] 05-03-2025 07:41-0400 Body weight 106.59 kg Randall Roy , DO Work Phone: [facility] [place] [facility] 03-29-2025 12:05-0400 Body mass index (BMI) [Ratio] 40.85 kg/m2 Sari New MD Work Phone: [facility] [place] [facility] 03-29-2025 12:05-0400 Body weight 107.96 kg Sari New MD Work Phone: [facility] [place] [facility] 03-29-2025 12:05-0400 Diastolic blood pressure 86 mm[Hg] Sari New MD Work Phone: [facility] [place] [facility] 03-29-2025 12:05-0400 Heart rate 90 /min Sari New MD Work Phone: [facility] [place] [facility] 03-29-2025 12:05-0400 Systolic blood pressure 121 mm[Hg] Sari New MD Work Phone: [facility] [place] [facility] 03-28-2025 19:30-0400 Diastolic blood pressure 74 mm[Hg] Dedra Todd DO Work Phone: [facility] [place] [facility] 03-28-2025 19:30-0400 Heart rate 84 /min Dedra Todd DO Work Phone: [employer] [facility] 03-28-2025 19:30-0400 Respiratory rate 18 /min Dedra Todd DO Work Phone: [facility] [place] [facility] 03-28-2025 19:30-0400 SaO2% (BldA) [Mass fraction] 99 % Dedra Todd DO Work Phone: [facility] [place] [facility] 03-28-2025 19:30-0400 Systolic blood pressure 108 mm[Hg] Dedra Todd DO Work Phone: [facility] [place] [facility] 03-28-2025 15:39-0400 Body temperature 97.7 [degF] Dedra Perez DO Work Phone: [facility] [place] [facility] 03-28-2025 15:38-0400 Body height 162.6 cm Dedra Perez DO Work Phone: [facility] [place] [facility] 03-28-2025 15:38-0400 Body mass index (BMI) [Ratio] 41.2 kg/m2 Dedraleonel Todd DO Work Phone: [facility] [place] [facility] 03-28-2025 15:38-0400 Body weight 108.86 kg Dedraleonel Todd DO Work Phone: [facility] [place] [facility] 03-12-2025 09:32-0400 Diastolic blood pressure 92 mm[Hg] Marco Antonio Soto MD Work Phone: [facility] [place] [facility] 03-12-2025 09:32-0400 Heart rate 80 /min Marco Antonio Soto MD Work Phone: [facility] [place] [facility] 03-12-2025 09:32-0400 Respiratory rate 16 /min Marco Antonio Soto MD Work Phone: [facility] [place] [facility] 03-12-2025 09:32-0400 SaO2% (BldA) [Mass fraction] 100 % Marco Antonio Soto MD Work Phone: [facility] [place] [facility] 03-12-2025 09:32-0400 Systolic blood pressure 111 mm[Hg] Marco Antonio Soto MD Work Phone: [facility] [place] [facility] 03-12-2025 08:09-0400 Body height 162.6 cm Marco Antonio Soto MD Work Phone: [facility] [place] [facility] 03-12-2025 08:09-0400 Body mass index (BMI) [Ratio] 41.2 kg/m2 Marco Antonio Soto MD Work Phone: [facility] [place] [facility] 03-12-2025 08:09-0400 Body temperature 96.91 [degF] Marco Antonio Soto MD Work Phone: [facility] [place] [facility] 03-12-2025 08:09-0400 Body weight 108.86 kg Marco Antonio Soto MD Work Phone: [facility] [place] [facility] 02-12-2025 11:28-0400 Diastolic blood pressure 76 mm[Hg] Darleen Daniel MD Work Phone: [facility] [place] [facility] 02-12-2025 11:28-0400 Heart rate 85 /min Darleen Daniel MD Work Phone: [facility] [place] [facility] 02-12-2025 11:28-0400 Respiratory rate 16 /min Darleen Daniel MD Work Phone: [facility] [place] [facility] 02-12-2025 11:28-0400 SaO2% (BldA) [Mass fraction] 97 % Darleen Daniel MD Work Phone: [facility] [place] [facility] 02-12-2025 11:28-0400 Systolic blood pressure 120 mm[Hg] Darleen Daniel MD Work Phone: [facility] [place] [facility] 02-12-2025 07:58-0400 Body mass index (BMI) [Ratio] 41.2 kg/m2 Darleen Daniel MD Work Phone: [facility] [place] [facility] 02-12-2025 07:58-0400 Body temperature 98.4 [degF] Darleen Daniel MD Work Phone: [facility] [place] [facility] 02-12-2025 07:58-0400 Body weight 108.86 kg Darleen Daniel MD Work Phone: [facility] [place] [facility] 02-11-2025 17:10-0400 Heart rate 85 /min Fede Davis MD Work Phone: [facility] [place] [facility] 02-11-2025 17:10-0400 Respiratory rate 16 /min Fede Davis MD Work Phone: [facility] [place] [facility] 02-11-2025 17:10-0400 SaO2% (BldA) [Mass fraction] 100 % Fede Davis MD Work Phone: [facility] [place] [facility] 02-11-2025 15:30-0400 Diastolic blood pressure 84 mm[Hg] Fede Davis MD Work Phone: [facility] [place] [facility] 02-11-2025 15:30-0400 Systolic blood pressure 124 mm[Hg] Fede Davis MD Work Phone: [facility] [place] [facility] 02-11-2025 15:28-0400 Body height 162.6 cm Fede Davis MD Work Phone: [facility] [place] [facility] 02-11-2025 15:28-0400 Body mass index (BMI) [Ratio] 41.2 kg/m2 Fede Davis MD Work Phone: [facility] [place] [facility] 02-11-2025 15:28-0400 Body temperature 97.59 [degF] Fede Davis MD Work Phone: [facility] [place] [facility] 02-11-2025 15:28-0400 Body weight 108.86 kg Fede Davis MD Work Phone: [facility] [place] [facility] 02-09-2025 14:28-0400 Body height 161.3 cm Veena Bridle [employer] Work Phone: [facility] [place] [facility] 02-09-2025 14:28-0400 Body mass index (BMI) [Ratio] 41.99 kg/m2 Veena Bridle [employer] Work Phone: [facility] [place] [facility] 02-09-2025 14:28-0400 Body temperature 97.3 [degF] Veena Bridle [employer] Work Phone: [facility] [place] [facility] 02-09-2025 14:28-0400 Body weight 109.23 kg Veena Bridle [employer] Work Phone: [facility] [place] [facility] 02-09-2025 14:28-0400 Diastolic blood pressure 79 mm[Hg] Veena Bridle [employer] Work Phone: [facility] [place] [facility] 02-09-2025 14:28-0400 Heart rate 106 /min Veena Bridle [employer] Work Phone: [facility] 02-09-2025 14:28-0400 Systolic blood pressure 113 mm[Hg] Veena Spann SAL[employer] Work Phone: [facility] 01-15-2025 06:54-0500 Body height 162.6 cm [employer] Work Phone: [facility] 01-15-2025 06:54-0500 Body mass index (BMI) [Ratio] 41.2 kg/m2 [employer] Work Phone: [facility] 01-15-2025 06:54-0500 Body weight 108.86 kg [employer] Work Phone: [facility] 01-15-2025 06:54-0500 Heart rate 85 /min [employer] Work Phone: [facility] 01-15-2025 06:54-0500 Respiratory rate 14 /min [employer] Work Phone: [facility] 12-19-2024 14:05-0500 Body temperature 99 [degF] Fede Davis MD Work Phone: [facility] 12-19-2024 14:05-0500 Diastolic blood pressure 75 mm[Hg] Fede Davis MD Work Phone: [facility] 12-19-2024 14:05-0500 Heart rate 86 /min Fede Davis MD Work Phone: [facility] 12-19-2024 14:05-0500 Respiratory rate 17 /min Fede Davis MD Work Phone: [facility] 12-19-2024 14:05-0500 SaO2% (BldA) [Mass fraction] 99 % Fede Davis MD Work Phone: [facility] 12-19-2024 14:05-0500 Systolic blood pressure 106 mm[Hg] Fede Davis MD Work Phone: [facility] 12-19-2024 12:39-0500 Body height 162.56 cm Fede Davis MD Work Phone: [facility] 12-19-2024 12:39-0500 Body mass index (BMI) [Ratio] 43.4 kg/m2 Fede Davis MD Work Phone: [facility] 12-19-2024 12:39-0500 Body weight 114.75 kg Fede Davis MD Work Phone: [facility] 12-07-2024 07:30-0500 Body height 162.6 cm [facility] 12-07-2024 07:30-0500 Body mass index (BMI) [Ratio] 42.05 kg/m2 [facility] 12-07-2024 07:30-0500 Body weight 111.13 kg [facility] 12-07-2024 07:30-0500 Respiratory rate 18 /min [facility] 10-27-2024 08:13-0500 Body height 162.6 cm [facility] 10-27-2024 08:13-0500 Body mass index (BMI) [Ratio] 44.46 kg/m2 [facility] 10-27-2024 08:13-0500 Body weight 117.48 kg [facility] 10-04-2024 07:20-0500 Body height 162.6 cm [facility] 10-04-2024 07:20-0500 Body mass index (BMI) [Ratio] 44.8 kg/m2 [facility] 10-04-2024 07:20-0500 Body weight 118.39 kg [facility] 10-04-2024 07:20-0500 Heart rate 54 /min [facility] Comment on above: pt palpated carotid pulse 03-03-2024 07:26-0400 Body height 162.6 cm [facility] 9 Work Phone: [facility] 03-03-2024 07:26-0400 Body temperature 97.5 [degF] [facility] [facility] Work Phone: [facility] 03-03-2024 07:26-0400 Body weight 128.5 kg [facility]ly [facility] 9 Work Phone: [facility] 03-03-2024 07:26-0400 Diastolic blood pressure 87 mm[Hg] Pacc 9 Work Phone: [facility] 03-03-2024 07:26-0400 Heart rate 100 /min Pacc 9 Work Phone: [facility] 03-03-2024 07:26-0400 SaO2% (BldA) [Mass fraction] 100 % Pacc 9 Work Phone: [facility] 03-03-2024 07:26-0400 Systolic blood pressure 119 mm[Hg] Pacc 9 Work Phone: [facility] 01-28-2024 07:29-0500 Body height 162.6 cm Pacc 6 Work Phone: [facility] 01-28-2024 07:29-0500 Body temperature 98.1 [degF] Pacc 6 Work Phone: [facility] 01-28-2024 07:29-0500 Body weight 128.7 kg Pacc 6 Work Phone: [facility] 01-28-2024 07:29-0500 Diastolic blood pressure 83 mm[Hg] Pacc 6 Work Phone: [facility] 01-28-2024 07:29-0500 Heart rate 99 /min Pacc 6 Work Phone: [facility] 01-28-2024 07:29-0500 Respiratory rate 16 /min Pacc 6 Work Phone: [facility] 01-28-2024 07:29-0500 SaO2% (BldA) [Mass fraction] 100 % Pacc 6 Work Phone: [facility] 01-28-2024 07:29-0500 Systolic blood pressure 129 mm[Hg] Pacc 6 Work Phone: [facility] 10-13-2023 11:00-0500 Diastolic blood pressure 71 mm[Hg] Randall Lockhart MD, , PhD Work Phone: [facility] 11-22-2023 11:00-0500 Heart rate 85 /min Randall Lockhart MD, MD, PhD Work Phone: [facility] 10-13-2023 11:00-0500 Respiratory rate 15 /min Randall Lockhart MD, MD, PhD Work Phone: [facility] 10-13-2023 11:00-0500 SaO2% (BldA) [Mass fraction] 100 % Randall Lockhart MD, MD, PhD Work Phone: [facility] 10-13-2023 11:00-0500 Systolic blood pressure 112 mm[Hg] Randall Lockhart MD, MD, PhD Work Phone: [facility] 10-13-2023 10:35-0500 Body temperature 97.3 [degF] Randall Lockhart MD, MD, PhD Work Phone: [facility] 09-24-2023 10:15-0400 Diastolic blood pressure 85 mm[Hg] Serena Antony MD, MD Work Phone: [facility] 09-24-2023 10:15-0400 Heart rate 70 /min Serena Antony MD, MD Work Phone: [facility] 09-24-2023 10:15-0400 SaO2% (BldA) [Mass fraction] 99 % Serena Atnony MD, MD Work Phone: [facility] 09-24-2023 10:15-0400 Systolic blood pressure 118 mm[Hg] Serena Antony MD, MD Work Phone: [facility] 09-24-2023 06:25-0400 Body temperature 97.5 [degF] Serena Antony MD, MD Work Phone: [facility] 09-24-2023 06:25-0400 Respiratory rate 16 /min Serena Antony MD, MD Work Phone: [facility] 07-28-2023 14:45-0400 Diastolic blood pressure 61 mm[Hg] Babs Anderson MD, MD Work Phone: [facility] 07-28-2023 14:45-0400 Heart rate 91 /min Babs Anderson MD, MD Work Phone: [facility] 07-28-2023 14:45-0400 Respiratory rate 15 /min Babs Anderson MD, MD Work Phone: [facility] 07-28-2023 14:45-0400 SaO2% (BldA) [Mass fraction] 99 % Babs Anderson MD, MD Work Phone: [facility] 07-28-2023 14:45-0400 Systolic blood pressure 114 mm[Hg] Babs Anderson MD, MD Work Phone: [facility] 07-28-2023 14:00-0400 Body temperature 97.5 [degF] Babs Anderson MD, MD Work Phone: [facility] 06-04-2023 07:40-0400 Body height 162.6 cm Pacc 5 Work Phone: [facility] 06-04-2023 07:40-0400 Body temperature 97.5 [degF] Pacc 5 Work Phone: [facility] 06-04-2023 07:40-0400 Body weight 120.93 kg Pacc 5 Work Phone: [facility] 06-04-2023 07:40-0400 Diastolic blood pressure 64 mm[Hg] Pacc 5 Work Phone: [facility] 06-04-2023 07:40-0400 Heart rate 104 /min Pacc 5 Work Phone: [facility] 06-04-2023 07:40-0400 SaO2% (BldA) [Mass fraction] 100 % Pacc 5 Work Phone: [facility] 06-04-2023 07:40-0400 Systolic blood pressure 113 mm[Hg] Pacc 5 Work Phone: [facility] 04-01-2023 07:43-0400 Body height 162.6 cm Pacc Virtual Work Phone: [facility] 04-01-2023 07:43-0400 Body weight 120.2 kg Pacc Virtual Work Phone: [facility] 04-01-2023 07:43-0400 Respiratory rate 18 /min Pacc Virtual Work Phone: [facility] 02-17-2023 14:45-0400 Diastolic blood pressure 59 mm[Hg] Randall Lockhart MD, MD, PhD Work Phone: [facility] 02-17-2023 14:45-0400 Heart rate 83 /min Randall Lockhart MD, MD, PhD Work Phone: [facility] 02-17-2023 14:45-0400 SaO2% (BldA) [Mass fraction] 100 % Randall Lockhart MD, MD, PhD Work Phone: [facility] 02-17-2023 14:45-0400 Systolic blood pressure 99 mm[Hg] Randall Lockhart MD, MD, PhD Work Phone: [facility] 02-17-2023 14:02-0400 Body temperature 98.1 [degF] Randall Lockhart MD, MD, PhD Work Phone: [facility] 02-17-2023 14:02-0400 Respiratory rate 16 /min Randall Lockhart MD, MD, PhD Work Phone: [facility] 02-16-2023 14:04-0400 Body height 162.6 cm Pac 4 Work Phone: [facility] 02-16-2023 14:04-0400 Body temperature 98.6 [degF] Pac 4 Work Phone: [facility] 02-16-2023 14:04-0400 Body weight 123.65 kg Pacc 4 Work Phone: [facility] 02-16-2023 14:04-0400 Diastolic blood pressure 82 mm[Hg] Pacc 4 Work Phone: [facility] 02-16-2023 14:04-0400 Heart rate 110 /min Pac 4 Work Phone: [facility] 02-16-2023 14:04-0400 SaO2% (BldA) [Mass fraction] 100 % [facility] 4 Work Phone: [facility] 02-16-2023 14:04-0400 Systolic blood pressure 132 mm[Hg] [facility] 4 Work Phone: [facility] 01-15-2023 09:45-0500 Diastolic blood pressure 60 mm[Hg] Carlyle Hoffmann SALES PROFESSIONAL BILINGUAL.[employer] Work Phone: [facility] 01-15-2023 09:45-0500 Heart rate 89 /min Carlyle Hoffmann SALES PROFESSIONAL [employer]ING[employer] Work Phone: [facility] 01-15-2023 09:45-0500 Respiratory rate 26 /min Carlyle Hoffmann SALES PROFESSIONAL [employer]ING[employer] Work Phone: [facility] 01-15-2023 09:45-0500 SaO2% (BldA) [Mass fraction] 100 % Carlyle Hoffmann SALES PROFESSIONAL B[employer]INGUAL.[employer] Work Phone: [facility] 01-15-2023 09:45-0500 Systolic blood pressure 117 mm[Hg] Carlyle Hoffmann SALES PROFESSIONAL B[employer]INGUAL.[employer] Work Phone: [facility] 01-15-2023 06:41-0500 Body temperature 98.6 [degF] Carlyle Hoffmann SALES PROFESSIONAL B[employer]INGUAL.[employer] Work Phone: [facility] 01-12-2023 07:32-0500 Body height 162.6 cm [facility] 01-12-2023 07:32-0500 Body weight 117.94 kg [facility] 10-27-2022 09:45-0500 Body temperature 96.08 [degF] NICCI WHELAN-C [facility] 10-27-2022 09:45-0500 Diastolic Blood Pressure Non-Invasive 84 1 NICIC RUBIO PA-C [facility] 10-27-2022 09:45-0500 Heart rate 68 /min NICCI IVÁN PA-C [facility] 10-27-2022 09:45-0500 Respiratory rate 16 /min NICCI IVÁN PA-C [facility] 10-27-2022 09:45-0500 Systolic Blood Pressure Non-Invasive 126 1 NICCI IVÁN PA-C [facility] 10-27-2022 09:26-0500 Body temperature 97.88 [degF] NICCI IVÁN PA-C [address] [place] [address] 10-27-2022 09:26-0500 Diastolic Blood Pressure Non-Invasive 71 1 NICCI IVÁN PA-C [address] [place] [address] 10-27-2022 09:26-0500 Heart rate 72 /min NICCI IVÁN PA-C [address] [place] [address] 10-27-2022 09:26-0500 Mean blood pressure 80 mm[Hg] NICCI IVÁN PA-C [address] [place] [address] 10-27-2022 09:26-0500 Respiratory rate 16 /min NICCI IVÁN PA-C [facility] 10-27-2022 09:26-0500 Systolic Blood Pressure Non-Invasive 110 1 NICCI IVÁN PA-C [facility] 10-27-2022 09:09-0500 Body temperature 97.88 [degF] NICCI IVÁN PA-C [address] [place] [address] 10-27-2022 09:09-0500 Diastolic Blood Pressure Non-Invasive 69 1 NICCI IVÁN PA-C [facility] 10-27-2022 09:09-0500 Heart rate 71 /min NICCI IVÁN PA-C [facility] 10-27-2022 09:09-0500 Mean blood pressure 84 mm[Hg] NICCI IVÁN PA-C [facility] 10-27-2022 09:09-0500 Respiratory rate 18 /min NICCI IVÁN PA-C [facility] 10-27-2022 09:09-0500 Systolic Blood Pressure Non-Invasive 130 1 NICCI IVÁN PA-C [address] [place] [address] 10-27-2022 06:50-0500 Body height 162.6 cm NICCI IVÁN PA-C [address] [place] [address] 10-27-2022 06:50-0500 Body weight 114 kg NICCI IVÁN PA-C [address] [place] [address] 10-27-2022 06:50-0500 Body weight 43.12 kg/m2 NICCI IVÁN PA-C [address] [place] [address] 10-27-2022 06:50-0500 Heart rate 84 /min NCICI IVÁN PA-C [address] [place] [address] 10-26-2022 08:51-0500 Body height 162.4 cm NICCI IVÁN PA-C [address] [place] [address] 10-26-2022 08:51-0500 Body weight 113.6 kg NICCI IVÁN PA-C [address] [place] [address] 10-26-2022 08:51-0500 Body weight 43.07 kg/m2 NICCI IVÁN PA-C [address] [place] [address] 09-24-2022 15:39-0400 Body temperature 98.6 [degF] DR ELIZABETH CONKLIN MD [address] [place] [address] 09-24-2022 15:39-0400 Diastolic blood pressure 74 mm[Hg] DR ELIZABETH CONKLIN MD [facility] 09-24-2022 15:39-0400 Heart rate 84 /min DR ELIZABETH CONKLIN MD [address] [place] [address] 09-24-2022 15:39-0400 Mean blood pressure 85 mm[Hg] DR ELIZABETH CONKLIN MD [address] [place] [address] 09-24-2022 15:39-0400 Respiratory rate 16 /min DR ELIZABETH CONKLIN MD [address] [place] [address] 09-24-2022 15:39-0400 Systolic blood pressure 107 mm[Hg] DR ELIZABETH CONKLIN MD [address] [place] [address] 09-24-2022 15:20-0400 Diastolic Blood Pressure NBP [address] ELIZABETH CONKLIN MD [address] [place] [address] 09-24-2022 15:20-0400 Mean blood pressure 84 mm[Hg] DR ELIZABETH CONKLIN MD [address] [place] [address] 09-24-2022 15:20-0400 Systolic Blood Pressure NBP [address] ELIZABETH CONKLIN MD [address] [place] [address] 09-24-2022 15:15-0400 Body temperature 96.8 [degF] DR ELIZABETH CONKLIN MD [address] [place] [address] 09-24-2022 15:15-0400 Diastolic Blood Pressure NBP [address] ELIZABETH CONKLIN MD [address] [place] [address] 09-24-2022 15:15-0400 Heart rate 79 /min DR ELIZABETH CONKLIN MD [address] [place] [address] 09-24-2022 15:15-0400 Mean blood pressure 83 mm[Hg] DR ELIZABETH CONKLIN MD [address] [place] [address] 09-24-2022 15:15-0400 Respiratory rate 16 /min DR ELIZABETH CONKLIN MD [address] [place] [address] 09-24-2022 15:15-0400 Systolic Blood Pressure NBP [address] ELIZABETH CONKLIN MD [address] [place] [address] 09-24-2022 15:00-0400 Diastolic Blood Pressure NBP [address] ELIZABETH CONKLIN MD [address] [place] [address] 09-24-2022 15:00-0400 Mean blood pressure 80 mm[Hg] DR ELIZABETH CONKLIN MD [address] [place] [address] 09-24-2022 15:00-0400 Systolic Blood Pressure NBP [address] ELIZABETH CONKLIN MD [address] [place] [address] 09-24-2022 14:45-0400 Heart rate 73 /min DR ELIZABETH CONKLIN MD [address] [place] [address] 09-24-2022 11:06-0400 Body height 162.[address] ELIZABETH CONKLIN MD [address] [place] [address] 09-24-2022 11:06-0400 Body weight 115.[address] ELIZABETH CONKLIN MD [address] [place] [address] 09-24-2022 11:06-0400 Diastolic blood pressure 79 mm[Hg] DR ELIZABETH CONKLIN MD [address] [place] [address] 09-24-2022 11:06-0400 Heart rate 89 /min DR ELIZABETH CONKLIN MD [address] [place] [address] 09-24-2022 11:06-0400 Mean blood pressure 90 mm[Hg] DR ELIZABETH CONKLIN MD [address] [place] [address] 09-24-2022 11:06-0400 Systolic blood pressure 113 mm[Hg] DR ELIZABETH CONKLIN MD [address] [place] [address] 08-10-2022 08:03-0400 Diastolic blood pressure 85 mm[Hg] Aliyah Abreu MD Work Phone: [facility] 08-10-2022 08:03-0400 Heart rate 88 /min Aliyah Abreu MD Work Phone: [facility] 08-10-2022 08:03-0400 Respiratory rate 16 /min Aliyah Abreu MD Work Phone: [facility] 08-10-2022 08:03-0400 SaO2% (BldA) [Mass fraction] 99 % Aliyah Abreu MD Work Phone: [facility] 08-10-2022 08:03-0400 Systolic blood pressure 129 mm[Hg] Aliyah Abreu MD Work Phone: [facility] Encounters Encounter Date Encounter Type Care Provider Facility Start: 07-04-2025 End: 07-04-2025 Emergency department patient visit Fede Davis MD Work Phone: -Emergency Department Work Phone: Start: 07-04-2025 End: 07-04-2025 Emergency department patient visit Randall Roy DO Work Phone: [facility] Emergency Dept Comment on above: Chronic low back alivia n, unspecified back pain laterality, unspecified whether sciatica present (Primary Dx) Start: 06-18-2025 End: 06-18-2025 Emergency department patient visit FEDE DAVIS [facility] Emergency [facility] Comment on above: Right leg swelling ( Primary Dx); Right calf pain Start: 06-14-2025 End: 06-14-2025 Postop follow up visit related to original px Veena Spann SALES PROFESSIONAL [employer] - [employer] Work Phone: [facility] - [place] Comment on above: Intestinal malabsorp tion, unspecified type (Primary Dx); Gastroesophageal reflux disease, unspecified whether esophagitis present; H/O gastric bypass; Deficiency of multiple nutrient elements; Morbid obesity with BMI of 40.0-44.9, adult ([facility]) Start: 06-14-2025 End: 06-14-2025 ambulatory VEENASendy SPANN [facility] Start: 06-08-2025 End: 06-08-2025 Telephone encounter Eusebio Harrison SALES PROFESSIONAL [employer] - [employer] Work Phone: [facility] Gastroenterology - [place] Start: 06-07-2025 End: 06-07-2025 ambulatory Stefano Chacon MD Work Phone: Ophthalmology Comment on above: Checking in Start: 06-07-2025 End: 06-07-2025 E-mail encounter from caregiver Stefano Chacon MD Work Phone: Ophthalmology Start: 06-06-2025 End: 06-06-2025 Telephone encounter Elvia Felder PA-C Work Phone: [facility] Gastroenterology - [place] Start: 06-05-2025 End: 06-05-2025 Telephone encounter Devi Reardon RN [facility] [place] Comment on above: Abdominal Pain Start: 06-05-2025 End: 06-08-2025 ambulatory [facility] Start: 06-05-2025 End: 06-08-2025 Evaluation and management of inpatient Patricia Tami SANCHEZ Work Phone: [facility] Clinical Decision Unit CDU Comment on above: Intractable abdomina l pain (Primary Dx); Intractable nausea and vomiting; History of gastric bypass Start: 05-29-2025 End: 05-29-2025 ambulatory ROSIE Maicol HERNANDEZ Facility:[facility] Start: 05-27-2025 End: 05-28-2025 ambulatory [facility] Start: 05-27-2025 End: 05-28-2025 Evaluation and management of inpatient Rocco Thomason MD Work Phone: [facility] Medical Surgical Unit MSU H5 Comment on above: Abdominal pain (Prim joseph Dx) Start: 05-26-2025 End: 05-26-2025 Emergency department patient visit Serafin Harley MD Work Phone: [facility] Emergency Dept Comment on above: Postoperative abdomi nal pain (Primary Dx); Postoperative pain; Drug-induced constipation Start: 05-23-2025 ambulatory Rosa Robotham Facilit y:[facility] Start: 05-21-2025 [facility] Start: 05-20-2025 End: 05-22-2025 ambulatory [facility] Start: 05-20-2025 End: 05-22-2025 Evaluation and management of inpatient Abner Azul MD Work Phone: [facility] Surgical Progressive Care Unit PCU H6 Comment on above: Abdominal pain, epig astric (Primary Dx); History of bariatric surgery; Postoperative pain Start: 05-03-2025 End: 05-03-2025 Emergency department patient visit Randall Roy DO Work Phone: [facility] Emergency Dept Comment on above: Low back pain, unspe cified back pain laterality, unspecified chronicity, unspecified whether sciatica present (Primary Dx) Start: 04-26-2025 ambulatory Wilton Hunt Facility :[facility] Start: 03-29-2025 End: 03-29-2025 Office outpatient new 30 minutes Sari New MD Work Phone: [facility] Obstetrics and Gynecology [facility] Comment on above: Left lower quadrant abdominal pain; Hemorrhagic ovarian cyst Start: 03-29-2025 End: 03-29-2025 ambulatory SARI NEW [facility] Start: 03-28-2025 End: 03-28-2025 Emergency department patient visit Dedra Todd DO Work Phone: [facility] Emergency Dept Comment on above: Other acute postproc edural pain (Primary Dx); History of lumbar puncture Start: 03-27-2025 End: 05-27-2025 Follow-up encounter Stefano Chacon MD Work Phone: Ophthalmology Start: 03-27-2025 End: 03-27-2025 ambulatory FEDE DAVIS Facility:[facility] Start: 03-12-2025 End: 03-12-2025 ambulatory MARCO ANTONIO SOTO [facility] Start: 03-12-2025 End: 03-12-2025 Subsequent hospital visit by physician Marco Antonio Soto MD Work Phone: [facility] Comment on above: Generalized abdomina l pain Start: 03-01-2025 End: 03-01-2025 Subsequent hospital visit by physician Veena Spann SALES PROFESSIONAL [employer] - [employer] Work Phone: [facility] X-Ray Comment on above: H/O gastric bypass; Bile reflux gastritis Start: 03-01-2025 End: 03-01-2025 ambulatory [facility] Start: 02-14-2025 Encounter for preprocedural laboratory examination Fede Davis [facility] Start: 02-13-2025 End: 2025 Documentation procedure Marco Antonio Soto MD Work Phone: [facility] - [place] Comment on above: EGD (EGD order ) Start: 02-12-2025 End: 02-12-2025 Emergency department patient visit Darleen Daniel MD Work Phone: [facility] Emergency Dept Comment on above: Left lower quadrant abdominal pain (Primary Dx); Hemorrhagic ovarian cyst Start: 02-11-2025 End: 02-11-2025 Emergency department patient visit FEDE DAVIS [facility] Emergency Dept Comment on above: RLQ abdominal pain ( Primary Dx); Hemorrhagic cyst of left ovary Start: 02-09-2025 End: 02-09-2025 Office outpatient new 45 minutes Veena Spann SALES PROFESSIONAL [employer] - [employer] Work Phone: [facility] - [place] Comment on above: Bile reflux gastriti s (Primary Dx); H/O gastric bypass; Intestinal malabsorption, unspecified type; Deficiency of other specified B group vitamins; Morbid obesity with BMI of 40.0-44.9, adult (HCC); Anxiety; Depression, unspecified depression type; Intracranial hypertension Start: 02-09-2025 End: 02-09-2025 ambulatory [facility] Start: 02-08-2025 ambulatory Fede Davis Facility:[facility] Start: 02-08-2025 Non-patient / Non-visit [facility]. Blonut [facility] Start: 02-08-2025 End: 02-08-2025 ambulatory Fede Davis MD Work Phone: [facility] Work Phone: Start: 02-08-2025 End: 02-08-[address] Fede Davis MD -Cardiovascular Services Work Phone: Start: 02-07-2025 End: 02-08-2025 ambulatory Stefano Chacon MD Work Phone: Ophthalmology Start: 02-07-2025 End: 02-07-2025 Patient encounter procedure Stefano Chacon MD Work Phone: Ophthalmology Comment on above: Latest tap and upcom ing appointment Start: 02-06-2025 End: 02-06-2025 ambulatory Fede Davis MD Work Phone: [facility] Work Phone: Start: 02-06-2025 End: 02-06-[address] Fede Davis MD -Laboratory, [place] Work Phone: Start: 02-05-2025 End: 02-06-2025 ambulatory JANICE ARROYO Facility:[facility] Start: 01-29-2025 End: 01-29-2025 ambulatory FEDE [facility] Facility:[id number] Start: 01-25-2025 End: 01-25-2025 Orders Only Jose Cotton RN [facility] INTERVENTIONAL RADIOLOGY Comment on above: IIH (idiopathic intr acranial hypertension) (Primary Dx) Start: 01-15-2025 End: 01-15-2025 Admission to establishment Pacc [facility] Work Phone: Pre Anesthesia Start: 01-15-2025 End: 01-15-2025 Anesthesia consultation Pac [facility] [email or web address] Work Phone: Pre Anesthesia Comment on above: Pre-op evaluation (P rimary Dx); IIH (idiopathic intracranial hypertension); Intractable epilepsy without status epilepticus, unspecified epilepsy type ([facility]); Difficult intravenous access; S/P gastric bypass; Gastroesophageal reflux disease, unspecified whether esophagitis present; Medical marijuana use; Obesity, Class III, BMI 40-49.9 (morbid obesity) ([facility]); Anxiety Start: 01-15-2025 End: 01-15-2025 Evaluation and management of inpatient JANICE ARROYO Facility:[facility] Start: 01-15-2025 End: 01-15-2025 Preprocedural examination done Pac [employer] Work Phone: [facility] Work Phone: Start: 01-04-2025 End: 01-04-2025 Patient encounter procedure Julian [facility] Work Phone: Start: 01-04-2025 End: 01-04-2025 ambulatory Fede Susan Facility:[facility] Start: 01-04-2025 End: 01-04-2025 Patient encounter procedure Julian WHELAN -Cat Scan, [facility] Work Phone: Start: 01-04-2025 End: 01-04-2025 ambulatory [facility] Facility:[facility] Start: 01-01-2025 End: 01-01-2025 Patient encounter procedure Wilton Hunt DO -Radiology, [facility] Work Phone: Start: 01-01-2025 End: 01-01-2025 ambulatory [facility] Facility:[facility] Start: 12-28-2024 End: 12-28-2024 ambulatory Stefano Chacon MD Work Phone: Ophthalmology Comment on above: Latest tap Start: 12-19-2024 Non-patient / Non-visit Wilton Auguste nd DO -[facility] Start: 12-19-2024 End: 12-19-2024 Admission to same day surgery center Wilton Hunt DO -Endoscopy Work Phone: Start: 12-19-2024 End: 12-19-2024 [facility] Facility[facility] Start: 12-07-2024 Encounter for other preprocedural examination CHALLLOYD DAVIS [facility] Start: 12-07-2024 End: 12-07-2024 [facility] Patricia Virtual Pre Anesthesia Comment on above: Pre-op evaluation (P rimary Dx); Intractable epilepsy without status epilepticus, unspecified epilepsy type (HCC); Gastroesophageal reflux disease, unspecified whether esophagitis present; Morbid obesity (HCC); S/P gastric bypass; Medical marijuana use; Major depressive disorder with single episode, remission status unspecified; Difficult intravenous access Start: 12-07-2024 End: 12-07-2024 Preprocedural examination done Pac Virtual [facility] Work Phone: Start: 11-24-2024 End: 11-27-2024 ambulatory Stefano Chacon MD Work Phone: Ophthalmology Comment on above: Next tap please Start: 11-20-2024 End: 11-20-2024 [facility] Facility:[facility] Start: 10-27-2024 End: 10-27-2024 E-mail encounter from caregiver Sarah Murray APRN.SENIOR SOUS [employer]F Work Phone: Pre Anesthesia Start: 10-27-2024 End: 10-27-2024 [facility] Start: 10-27-2024 End: 10-27-2024 ambulatory JANICE CASCO Facility:[facility] Start: 10-27-2024 End: 10-27-2024 Anesthesia consultation Sarah Murray APRN.[employer] Work Phone: Pre Anesthesia Comment on above: Pre Op Instructions Intractable epilepsy without status epilepticus, unspecified epilepsy type (HCC) (Primary Dx); IIH (idiopathic intracranial hypertension); Difficult intravenous access; JACK (obstructive sleep apnea); Gastroesophageal reflux disease, unspecified whether esophagitis present; S/P gastric bypass; Major depressive disorder with single episode, remission status unspecified; Medical marijuana use; Anxiety; Morbid obesity (HCC) Start: 10-26-2024 End: 10-26-2024 ambulatory Stefano Chacon MD Work Phone: Ophthalmology Start: 10-26-2024 End: 10-26-2024 Telephone encounter Megan Chirinos [facility] INTERVENTIONAL RADIOLOGY Comment on above: Scheduling (LP with TABBY and PACC info) Start: 10-18-2024 End: 10-18-2024 [facility] JANICE CASCO Facility:[facility] Start: 10-17-2024 End: 10-17-2024 Patient encounter procedure Julian WHELAN -[facility] Work Phone: Start: 10-17-2024 End: 10-17-2024 ambulatory Fede Davis Facility[facility] Start: 10-04-2024 End: 10-04-2024 E-mail encounter from caregiver Saima Swanson APRN.[employer] Work Phone: Pre Anesthesia Start: 10-04-2024 End: 10-04-2024 Admission to establishment Pac [place] 1 Virtual Pre Anesthesia Start: 10-04-2024 End: 10-04-2024 ambulatory JANICE ARROYO Facility:[facility] Start: 10-04-2024 End: 10-04-2024 Anesthesia consultation Saima Swanson APRN.CNP Work Phone: Pre Anesthesia Comment on above: PACC Pre-op evaluation (P rimary Dx); IIH (idiopathic intracranial hypertension); Difficult intravenous access; S/P gastric bypass; Gastroesophageal reflux disease, unspecified whether esophagitis present; Anxiety; Medical marijuana use; Morbid obesity with BMI of 45.0-49.9, adult (HCC) Start: 10-04-2024 End: 10-04-2024 Preprocedural examination done Pac Virtual [facility] Work Phone: Start: 10-02-2024 End: 10-02-2024 ambulatory STEFANO CHACON Facility:[facility] Start: 10-02-2024 End: 10-02-2024 Patient encounter procedure Stefano Chacon MD Work Phone: Ophthalmology Comment on above: IIH (idiopathic intr acranial hypertension) (Primary Dx); History of papilledema; Other localized visual field defect, bilateral Start: 09-20-2024 End: 09-20-2024 ambulatory Stefano Chacon MD Work Phone: Ophthalmology Start: 09-20-2024 End: 09-20-2024 Telephone encounter Megan Chirinos [facility] INTERVENTIONAL RADIOLOGY Comment on above: Radiology IR (JAGDEEP MCNAIR) Start: 09-15-2024 End: 09-15-2024 ambulatory CHALON SUSAN Facility:[facility] Start: 09-12-2024 End: 09-12-2024 Emergency department patient visit Chalon Susan Facility:[facility] Start: 09-11-2024 End: 09-11-2024 ambulatory Chalon Susan Facility:[facility] Start: 09-06-2024 End: 09-06-2024 Emergency department patient visit CHALLLOYD SUSAN Facility:[facility] Start: 08-31-2024 End: 08-31-2024 ambulatory Stefano Chacon MD Work Phone: Ophthalmology Comment on above: Scheduling my next t ap Start: 08-22-2024 End: 08-22-2024 Emergency department patient visit FEDE DAVIS Facility:[id number] Start: 08-15-2024 End: 08-21-2024 E-mail encounter from caregiver Stefano Chacon MD Work Phone: Ophthalmology Start: 08-15-2024 End: 08-21-2024 ambulatory Stefano Chacon MD Work Phone: Ophthalmology Comment on above: LP Start: 07-12-2024 End: 07-12-2024 [facility] Stefano Chacon MD Work Phone: Ophthalmology Comment on above: IIH (idiopathic intr acranial hypertension) (Primary Dx); History of papilledema; Headache disorder Start: 07-11-2024 End: 07-11-2024 ambulatory CELIA ROGERS Facility:[facility] Start: 06-18-2024 End: 06-18-2024 Emergency department patient visit Fede Davis Facility:[facility] Start: 06-15-2024 ambulatory Stefano Chacon MD Work Phone: Ophthalmology Comment on above: Next months tap Start: 05-09-2024 ambulatory Stefano Chacon MD Work Phone: Ophthalmology Comment on above: Mailed paper Start: 05-01-2024 End: 05-01-2024 Patient encounter procedure Stefano Chacon MD Work Phone: Ophthalmology Comment on above: IIH (idiopathic intr acranial hypertension) (Primary Dx); Other localized visual field defect, bilateral; History of papilledema; Headache disorder Start: 04-23-2024 End: 04-23-2024 Emergency department patient visit YAN JASSO Facility:[facility] Start: 03-15-2024 ambulatory Stefano Chacon MD Work Phone: Ophthalmology Comment on above: LP Start: 03-15-2024 E-mail encounter fro m caregiver Stefano Chacon MD Work Phone: Ophthalmology Start: 03-03-2024 End: 03-03-2024 Admission to [facility] Main Work Phone: [facility] Start: 03-03-2024 End: 03-03-2024 ambulatory Pac Main 9 Work Phone: Pre Anesthesia Comment on above: Pre-op evaluation (P rimary Dx); Morbid obesity with BMI of 45.0-49.9, adult (HCC); S/P gastric bypass; Gastroesophageal reflux disease, unspecified whether esophagitis present; Difficult intravenous access; Intractable epilepsy without status epilepticus, unspecified epilepsy type (HCC); IIH (idiopathic intracranial hypertension); Anxiety Start: 03-03-2024 End: 03-03-2024 Preprocedural examination done Pac Main 9 Work Phone: [facility] Work Phone: Start: 02-24-2024 ambulatory Stefano Chacon MD Work Phone: Ophthalmology Comment on above: Upcoming spinal tap Start: 02-21-2024 Telephone encounter Stefano shearer MD Work Phone: Ophthalmology Comment on above: Orders Start: 02-20-2024 End: 02-20-2024 Emergency department patient visit YAN JASSO Facility:[facility] Start: 02-19-2024 Emergency department patient visit YAN JASSO Facility:[facility] Start: 02-01-2024 End: 02-01-2024 Orders Only Panda Castillo MD Work Phone: [facility] Comment on above: IIH (idiopathic intr acranial hypertension) (Primary Dx) Pre-op evaluation [Z 01.818] Start: 01-28-2024 End: 01-28-2024 Admission to [facility] Pac Main 6 Work Phone: [facility] Start: 01-28-2024 End: 01-28-2024 ambulatory Pac Main 6 Work Phone: Pre Anesthesia Comment on above: Pre-operative examin ation (Primary Dx); Intractable epilepsy without status epilepticus, unspecified epilepsy type (HCC); S/P gastric bypass; Gastroesophageal reflux disease, unspecified whether esophagitis present; Difficult intravenous access; Morbid obesity with BMI of 45.0-49.9, adult (HCC); Medical marijuana use Start: 01-28-2024 End: 01-28-2024 Preprocedural examination done [facility] Main Work Phone: [facility] Work Phone: Start: 01-03-2024 End: 01-03-2024 Patient encounter procedure Stefano Chacon MD Work Phone: Ophthalmology Comment on above: IIH (idiopathic intr acranial hypertension) (Primary Dx); Other localized visual field defect, left eye; Pulsatile tinnitus Start: 11-04-2023 End: 10-04-2024 Preprocedural examination done Stefano Chacon MD Work Phone: [facility] Work Phone: Start: 10-21-2023 Telephone encounter Stefano shearer MD Work Phone: Ophthalmology Comment on above: Orders Start: 10-13-2023 ambulatory Sabra Aquino RN HOSP PICC Comment on above: Radiology CT Start: 10-13-2023 Patient encounter procedure Sabra Aquino RN [facility] Start: 10-13-2023 End: 10-13-2023 Subsequent hospital visit by physician Ranadll Lockhart MD, PhD Work Phone: [facility] [phone] Comment on above: IIH (idiopathic intr acranial hypertension) [G93.2] Start: 09-25-2023 End: 09-25-2023 Emergency department patient visit [facility] Facility:[facility] Start: 09-24-2023 End: 09-24-2023 Subsequent hospital visit by physician Serena Antony MD Work Phone: [facility] [id number] Comment on above: IIH (idiopathic intr acranial hypertension) [G93.2] Start: 08-09-2023 ambulatory Stefano Chacon MD Work Phone: Ophthalmology Comment on above: Tried calling Start: 07-28-2023 End: 07-28-2023 Subsequent hospital visit by physician Babs Anderson MD Work Phone: [id number] Comment on above: IIH (idiopathic intr acranial hypertension) [G93.2] Start: 06-28-2023 End: 06-28-2023 Patient encounter procedure Stefano Chacon MD Work Phone: Ophthalmology Comment on above: IIH (idiopathic intr acranial hypertension) (Primary Dx); Other localized visual field defect, left eye Start: 06-09-2023 Orders Only Stefano Chacon MD Work Phone: Ophthalmology Comment on above: IIH (idiopathic intr acranial hypertension) (Primary Dx) Start: 06-04-2023 End: 06-04-2023 [facility] Main 5 Work Phone: Pre Anesthesia Comment on above: History of penicilli n allergy (Primary Dx); Intracranial hypertension; Difficult intravenous access; Gastroesophageal reflux disease, unspecified whether esophagitis present; Morbid obesity (HCC); Major depressive disorder with single episode, remission status unspecified; S/P gastric bypass; Intractable epilepsy without status epilepticus, unspecified epilepsy type ([facility]) Start: 05-17-2023 Orders Only Stefano Chacon MD Work Phone: Ophthalmology Comment on above: IIH (idiopathic intr acranial hypertension) (Primary Dx) Start: 05-11-2023 ambulatory Chris Trevino LPN [facility] Start: 05-11-2023 Patient encounter procedure Chris Trevino LPN [facility] Start: 04-01-2023 End: 04-01-2023 ambulatory YAN JASSO Facility:[facility] Start: 04-01-2023 End: 04-01-2023 [facility] Virtual Work Phone: Pre Anesthesia Comment on above: Preoperative examina tion (Primary Dx); Difficult intravenous access; Idiopathic intracranial hypertension; Intractable epilepsy without status epilepticus, unspecified epilepsy type (HCC); Medical marijuana use; Gastroesophageal reflux disease, unspecified whether esophagitis present; Major depressive disorder with single episode, remission status unspecified; Anxiety; Morbid obesity with BMI of 45.0-49.9, adult (HCC); S/P gastric bypass Start: 04-01-2023 End: 04-01-2023 Preprocedural examination done Pac Virtual Work Phone: Pre Anesthesia Start: 03-25-2023 Orders Only Stefano Chacon MD Work Phone: Ophthalmology Comment on above: Intracranial hyperte nsion (Primary Dx) Start: 03-22-2023 End: 03-22-2023 Patient encounter procedure Stefano Chacon MD Work Phone: Ophthalmology Comment on above: IIH (idiopathic intr acranial hypertension) (Primary Dx); Other localized visual field defect, bilateral; Hyperglycemia Start: 03-17-2023 Telephone encounter Stefano shearer MD Work Phone: Ophthalmology Comment on above: Patient Question Start: 03-16-2023 Telephone encounter Raiza Silver MD Work Phone: NEUROLOGY Comment on above: Symptoms Start: 03-14-2023 ambulatory Stefano Chacon MD Work Phone: Ophthalmology Comment on above: At a loss Start: 03-11-2023 Telephone encounter Raiza Silver MD Work Phone: [facility] Comment on above: Results Start: 03-04-2023 Orders Only [address] [employer] Work Phone: NEUROLOGY Comment on above: IIH (idiopathic intr acranial hypertension) (Primary Dx); History of intravascular stent placement Results Start: 03-03-2023 ambulatory Raiza Silver MD Work Phone: [facility] Comment on above: labs Start: 03-03-2023 E-mail encounter fro m caregiver Raiza Silver MD Work Phone: [facility] Start: 02-17-2023 End: 02-17-2023 Subsequent hospital visit by physician Randall Lockhart MD, PhD Work Phone: H[facility]P MAIN [id number] Comment on above: IIH (idiopathic intr acranial hypertension) [G93.2] Start: 02-16-2023 End: 02-16-2023 Admission to establishment Pacc Main 4 Work Phone: [facility] Start: 02-16-2023 End: 02-16-2023 ambulatory Pacc Main 4 Work Phone: Pre Anesthesia Comment on above: Pre-op evaluation (P rimary Dx); Intractable epilepsy without status epilepticus, unspecified epilepsy type (HCC); IIH (idiopathic intracranial hypertension); Gastroesophageal reflux disease, unspecified whether esophagitis present; Morbid obesity (HCC); Difficult intravenous access Start: 02-16-2023 End: 02-16-2023 Preprocedural examination done Pac Main 4 Work Phone: Pre Anesthesia Start: 02-15-2023 ambulatory Raiza Silver MD Work Phone: [facility] Comment on above: Procedure scheduled for 03/12/[address] Raiza Silver Start: 02-15-2023 E-mail encounter fro m caregiver Raiza Silver MD Work Phone: [facility] Start: 02-15-2023 Telephone encounter Raiza Silver MD Work Phone: [facility] Comment on above: Medication Update Start: 02-13-2023 Orders Only Raiza Silver MD Work Phone: [facility] Comment on above: IIH (idiopathic intr acranial hypertension) (Primary Dx) Start: 02-03-2023 ambulatory aRiza Silver MD Work Phone: [facility] Comment on above: Procedure (venous ma nometry & stent with Dr. Silevr 03/12/23) Start: 02-03-2023 Patient encounter status Raiza Silver MD Work Phone: [facility] Start: 02-03-2023 Telephone encounter Raiza Silver MD Work Phone: [facility] Comment on above: Procedure Start: 02-02-2023 Telephone encounter Raiza Silver MD Work Phone: [facility] Comment on above: Patient Question Start: 02-01-2023 Telephone encounter Raiza Silver MD Work Phone: [facility] Comment on above: Patient Update Start: 01-29-2023 Telephone encounter Raiza Silver MD Work Phone: [facility] Comment on above: Patient Question Start: 01-28-2023 Orders Only Stefano Chacon MD Work Phone: Ophthalmology Comment on above: IIH (idiopathic intr acranial hypertension) (Primary Dx) Start: 01-18-2023 End: 01-18-2023 Emergency department patient visit YAN ALFONSONGER Facility:A Start: 01-15-2023 End: 01-15-2023 Subsequent hospital visit by physician Carlyle Hoffmann APRN.[facility] Work Phone: [facility] [id number] Comment on above: Benign intracranial hypertension [G93.2] Start: 01-12-2023 End: 01-12-2023 PAT Pacc [place] [facility] Pre Anesthesia Comment on above: Pre-op evaluation (P rimary Dx); IIH (idiopathic intracranial hypertension); Intractable epilepsy without status epilepticus, unspecified epilepsy type (HCC); Gastroesophageal reflux disease, unspecified whether esophagitis present; Major depressive disorder with single episode, remission status unspecified; Anxiety; Morbid obesity (HCC) Start: 01-12-2023 End: 01-12-2023 Preprocedural examination done Pacc Virtual Pre Anesthesia Start: 01-11-2023 End: 01-11-2023 ambulatory Stefano Chacon MD Work Phone: Ophthalmology Comment on above: IIH (idiopathic intr acranial hypertension) (Primary Dx); Pulsatile tinnitus; Other localized visual field defect, bilateral Start: 01-11-2023 End: 01-11-2023 Telemedicine consultation with patient Stefano Chacon MD Work Phone: [facility] Start: 01-06-2023 Telephone encounter Stefano shearer MD Work Phone: Ophthalmology Comment on above: Patient Update Start: 01-05-2023 End: 01-05-2023 Subsequent hospital visit by physician Lazaro Gilmna(Lg Bore/1.5t) Work Phone: Radiology Start: 01-04-2023 Telephone encounter Stefano shearer MD Work Phone: Ophthalmology Comment on above: Orders (Per patient request order has been placed for IR lumbar puncture to check opening pressure and drain if elevated. ) Start: 12-29-2022 End: 12-29-2022 Emergency department patient visit YAN JASSO Facility:A Start: 12-22-2022 End: 12-22-2022 Patient encounter procedure Stefano Chacon MD Work Phone: Ophthalmology Comment on above: IIH (idiopathic intr acranial hypertension) (Primary Dx); Other localized visual field defect, bilateral; Pulsatile tinnitus Start: 12-15-2022 Telephone encounter Stefano shearer MD Work Phone: Ophthalmology Comment on above: Received Outside Med [facility] Records Start: 12-03-2022 End: 12-03-2022 ambulatory NONE PHYSICIAN Facility:A Start: 10-27-2022 End: 10-27-2022 ambulatory NONE PHYSICIAN Facility:A Start: 10-27-2022 End: 10-27-2022 SAME DAY STAY NICCI RUBIO PA-C [facility] Start: 10-19-2022 ambulatory NEREYDA MCNEAL Facility :A Start: 09-24-2022 End: 09-24-2022 ambulatory ANTONETTE PHYSICIAN Facility:A Start: 09-24-2022 End: 09-24-[address] ELIZABETH CONKLIN MD [facility] Start: 09-17-2022 End: 09-18-2022 ambulatory ELIZABETH CONKLIN Facility:A Start: 08-22-2022 End: 08-27-2022 ambulatory ANIBAL THOMPSON DO Facility:A Start: 08-10-2022 End: 08-10-2022 ambulatory [facility] Start: 08-10-2022 End: 08-10-2022 Office outpatient new 45 minutes Provider Not In System [facility] Comment on above: Pseudotumor cerebri (Primary Dx) Start: 07-29-2022 End: 07-29-2022 Emergency department patient visit CHRIS JUAREZ MD Facility:A Start: 05-29-2022 Transcribe Orders Provider Not In System [facility] Comment on above: Idiopathic intracran ial hypertension (Primary Dx) Procedures Date Procedure Procedure Detail Performing Clinician Start: 06-18-2025 Dup-scan xtr veins unilateral/limited study Melchor Angela PA-C Work Phone: Start: 06-14-2025 Follow-up visit FEDE DAVIS Start: 06-08-2025 Comprehensive metabolic panel Dayna Bro [employer] - [employer] Work Phone: Start: 06-07-2025 Radiologic exam small int single contrast study Mateo Pabon MD Work Phone: Start: 06-07-2025 Radiologic exam abdomen 1 view Mateo marshall MD Work Phone: Start: 06-07-2025 Comprehensive metabolic panel Dayna Bro [employer] - [employer] Work Phone: Start: 06-06-2025 Radiologic exam abdomen 1 view Mateo marshall MD Work Phone: Start: 06-06-2025 C-reactive protein Eusebio Harrison SALES PROFESSIONAL [employer] - [employer] Work Phone: Start: 06-06-2025 Comprehensive metabolic panel Dayna Bro [employer] - [employer] Work Phone: Start: 06-05-2025 Assay of lactate Julieta Madison MD Work Phone: Start: 06-05-2025 Ct abdomen & pelvis w/contrast material Aster Villela PA-C Work Phone: Start: 06-05-2025 Assay of troponin quantitative Aster quiñones PA-C Work Phone: Start: 06-05-2025 Urnls dip stick/tablet rgnt auto w/o microscopy Aster Stricklandinger PA-C Work Phone: Start: 06-05-2025 Basic metabolic panel calcium total Aster Villela PA-C Work Phone: Start: 06-05-2025 Ecg routine ecg w/least 12 lds trcg only w/o i&r Aster Villela PA-C Work Phone: Start: 05-28-2025 Glucose quantitative blood xcpt reagent strip Santosh [employer] DO Work Phone: Start: 05-28-2025 Glucose quantitative blood xcpt reagent strip Santosh Garcia DO Work Phone: Start: 05-28-2025 Basic metabolic panel calcium total Julieta Madison MD Work Phone: Start: 05-27-2025 Glucose quantitative blood xcpt reagent strip Santosh Garcia DO Work Phone: Start: 05-27-2025 Glucose quantitative blood xcpt reagent strip Santosh [employer] DO Work Phone: Start: 05-27-2025 Glucose quantitative blood xcpt reagent strip Santosh [email or web address] DO Work Phone: Start: 05-27-2025 Ct abdomen & pelvis w/o contrast material Divya Lopez DO Work Phone: Start: 05-27-2025 Glucose quantitative blood xcpt reagent strip Santosh Garcia DO Work Phone: Start: 05-27-2025 End: 05-27-2025 Comprehensive metabolic panel Divya paz DO Work Phone: Start: 05-26-2025 Ct abdomen & pelvis w/contrast material Sumeet Trevino SAL[employer] - [employer] Work Phone: Start: 05-26-2025 End: 05-26-2025 Comprehensive metabolic panel Sumeet blair SAL[employer] - [employer] Work Phone: Start: 05-21-2025 Basic metabolic panel calcium total Rocco Butcher MD Work Phone: Start: 05-20-2025 End: 05-20-2025 Laps abd prtm&omentum dx w/wo spec br/wa spx Marco Antonio Soto MD Work Phone: Start: 05-20-2025 Assay of lactate Magdalene Ayala PA-C Work Phone: Start: 05-20-2025 Ct abdomen & pelvis w/o contrast material Magdalene WHELAN-C Work Phone: Start: 05-20-2025 Ecg routine ecg w/least 12 lds trcg only w/o i&r Magdalene WHELAN-C Work Phone: Start: 05-20-2025 Comprehensive metabolic panel Magdalene WHELAN-C Work Phone: Start: 05-20-2025 Urnls dip stick/tablet rgnt auto w/o microscopy Magdalene Ayala PA-C Work Phone: Start: 05-03-2025 Urnls dip stick/tablet rgnt auto w/o microscopy Randall Roy DO Work Phone: Start: 03-29-2025 Follow-up visit FEDE DAVIS Start: 03-28-2025 Ct lumbar spine w/contrast material Maria Teresa Ortiz PA-C Work Phone: Start: 03-28-2025 Blood count complete auto&auto difrntl wbc Maria Teresa Ortiz PA-C Work Phone: Start: 03-01-2025 Radiologic exam upr gi trc single contrast study Veena Spann [employer] - [employer] Work Phone: Start: 02-12-2025 Ct abdomen & pelvis w/contrast material Darleen Daniel MD Work Phone: Start: 02-12-2025 Us transvaginal Darleen Daniel MD Work Phone: Start: 02-12-2025 Comprehensive metabolic panel Darleen carter MD Work Phone: Start: 02-12-2025 EXTRA TUBES Darleen Daniel MD Work Phone: Start: 02-12-2025 LIGHT BLUE TOP Darleen Daniel MD Work Phone: Start: 02-11-2025 Us transvaginal Magdalene WHELAN-C Work Phone: Start: 02-11-2025 Urinalysis complete panel - Urine Thong Ayala PA-C Work Phone: Start: 02-11-2025 Urnls dip stick/tablet rgnt auto w/o microscopy Magdalene Ayala PA-C Work Phone: Start: 02-11-2025 Comprehensive metabolic panel Magdalene Ayala PA-C Work Phone: Start: 02-09-2025 Follow-up visit FEDE DAVIS Start: 01-04-2025 Computed tomography of abdomen and pelvis with contrast Fede Davis MD Work Phone: Start: 01-01-2025 Barium swallow Fede Davis MD Work Phone: Start: 10-02-2024 End: 10-02-2024 Visual field xm uni/bi w/interp extended exam Stefano Chacon MD Work Phone: Start: 05-01-2024 Computerized ophthalmic imaging optic nerve Stefano Chacon MD Work Phone: Start: 05-01-2024 Visual field xm uni/bi w/interp extended exam Stefano Chacon MD Work Phone: Start: 01-03-2024 End: 01-03-2024 Visual field xm uni/bi w/interp extended exam Stefano Chacon MD Work Phone: Start: 07-28-2023 IR VASCULAR ACCESS TEAM MIDLINE INSERTION RADIO Venessa Keren SAL[employer] PROF[employer] Work Phone: Start: 06-28-2023 End: 06-28-2023 Visual field xm uni/bi w/interp extended exam Stefano Chacon MD Work Phone: Start: 03-22-2023 End: 03-22-2023 Visual field xm uni/bi w/interp extended exam Stefano Chacon MD Work Phone: Start: 12-22-2022 End: 12-22-2022 Visual field xm uni/bi w/interp extended exam Stefano Chacon MD Work Phone: Start: 11-22-[address] ELIZABETH CONKLIN MD Abdominal hysterectomy DR LC CONKLIN MD Appendectomy DR ELIZABETH CONKLIN MD Cholecystectomy DR ELIZABETH CHAVARRIA MD Esophagogastroduodenoscopy B RITTANY IVÁN PA-C Extraction of wisdom tooth D R ELIZABETH CONKLIN MD History of gastroint estinal tract bypass History of Krystal-en-Y gastric bypass Fede Davis MD Work Phone: History of gastroint estinal tract bypass History of Krystal-en-Y gastric bypass Julian WHELAN History of tonsillectomy DR ELIZABETH CONKLIN MD Lumbar puncture NICCI LEV ITT PA-C Comment on above: has had 128 since 2017 Shoulder region stru cture (body structure) DR ELIZABETH CONKLIN MD Comment on above: right X2 Shunt (physical object) DR Jacob CONKLIN MD Comment on above: [employer] shunt Shunt (physical object) BRIT SEVEN IVÁN PA-C Comment on above: [employer] shunt put in 2009 and chichi sergio 2009, pt rejected and had infection Plan of Treatment Date Care Activity Detail Author Start: 02-27-2060 RSV Immunization for Adults (1 - 1-dose 75+ series) RSV Immunization for Adults (1 - 1-dose 75+ series) [facility] Start: 05-03-2035 Urine microalbumin profile DTaP,Tdap,Td Vaccine (3 - Td or Tdap) [facility] Start: 2035 Zoster Vaccines (1 of 2) Zoster Vaccines (1 of 2) [facility] Start: 07-23-2025 Influenza vaccination [facility] Start: 07-04-2025 [facility] Start: 06-13-2025 End: 06-13-2025 Patient encounter procedure 06/13/2025 11:40 AM EDT Office Visit [facility] [address] [place] [phone] Veena Spann, SALES PROFESSIONAL BILINGUAL - SENIOR [employer]OUS CHEF [address] [place] [phone] [facility] Start: 06-06-2025 End: 06-06-2025 Patient encounter procedure 06/06/2025 11:40 AM EDT Office Visit [facility] [address] [place] [phone] Veena Spann, SALES PROFESSIONAL BILINGUAL - SENIOR SOUS CHEF [address] [place] [phone] [facility] Start: 06-05-2025 End: 06-05-2025 Patient encounter procedure 06/05/2025 12:30 PM EDT Office Visit [facility] [address] [address] Stefano Chacon MD [address] [place] [address] Please schedule this patient for a 4-5 month return to clinic visit, the indication is IIH Ophthalmology Comment on above: Please schedule this patient for a 4-5 m [facility] return to clinic visit, the indication is IIH Start: 05-29-2025 End: 05-29-2025 Admission to same day surgery center 05/29/2025 8:00 AM EDT - 05/29/2025 9:30 AM EDT Surgery Angio [address] [place] [address] CANDY SEPARATOR HARD [address] [place] [address] SPINAL PUNCTURE LUMBAR DIAGNOSTIC Angio Comment on above: SPINAL PUNCTURE LUMBAR DIAGNOSTIC Start: 05-29-2025 End: 05-29-2025 Diagnostic lumbar spinal puncture SPINAL PUNCTURE LUMBAR DIAGNOSTIC IIH (idiopathic intracranial hypertension) 05/29/2025 8:00 AM EDT [facility] Start: 05-29-2025 Subsequent hospital visit by physician 05/29/2025 8:00 AM EDT Hospital Encounter Angio [address] [place] [address] CANDY SEPARATOR HARD [address] [place] [address] IIH (idiopathic intracranial hypertension) [G93.2] Angio Comment on above: IIH (idiopathic intracranial hypertensio n) [G93.2] Start: 04-02-2025 End: 04-02-2025 Patient encounter procedure 04/02/2025 9:00 AM EDT Appointment [facility] [address] [place] [phone] Veena Spann, SALES PROFESSIONAL BILINGUAL - SENIOR SOUS CHEF [address] [place] [address] [facility] Start: 03-29-2025 End: 03-29-2025 Patient encounter procedure 03/29/2025 12:00 PM EDT Office Visit [facility] [address] [facility] [address] [place] [address] Sair New MD [address] [facility] [address] [place], [place] [address] [facility] Start: 03-12-2025 End: 03-12-2025 Admission to same day surgery center 03/12/2025 9:00 AM EDT - 03/12/2025 9:20 AM EDT Surgery [facility] [address] [place] [phone] Marco Antonio Soto MD [address] [facility] [address] [place] [address] ESOPHAGOGASTRODUODENOS COPY, DIAGNOSTIC [21728 (CPT )] [facility] [address] [facility] Comment on above: ESOPHAGOGASTRODUODENOSCOPY, DIAGNOSTIC [ 07924 (CPT )] Start: 03-12-2025 End: 03-12-2025 Egd transoral biopsy single/multiple ESOPHAGOGASTRODUODENOS COPY, DIAGNOSTIC Generalized abdominal pain 03/12/2025 9:00 AM EDT [facility] Start: 03-12-2025 Subsequent hospital visit by physician 03/12/2025 9:00 AM EDT Hospital Encounter [facility] [address] [place] [address] Marco Antonio Soto MD [address] [place], [place] [phone] [facility] [address] [facility] Start: 03-01-2025 End: 03-01-2025 Patient encounter procedure 03/01/2025 9:00 AM EDT Appointment [facility] [address] [place] [phone] Veena Spann, SALES PROFESSIONAL BILINGUAL - SENIOR SOUS CHEF [address] [place] [address] [facility] Start: 2025 Screening for malignant neoplasm of breast [facility] Start: 02-13-2025 End: 02-13-2025 Patient encounter procedure Ophthalmology Comment on above: Please schedule this patient for a 4-5 m [facility] return to clinic visit, the indication is IIH Start: 02-09-2025 End: 02-09-2026 RF Upper gastrointestinal tract and Small bowel Single view W contrast PO FL upper GI single contrast w small bowel follow through Imaging Routine H/O gastric bypass Bile reflux gastritis Expected: 02/09/2025, Expires: 02/09/2026 [facility] Work Phone: Comment on above: Expected: 02/09/2025, Expires: Start: 02-05-2025 End: 02-05-2025 Admission to same day surgery center 02/05/2025 9:30 AM EDT - 02/05/2025 11:00 AM EDT Surgery [facility] [address] [place] [address] Janice Arroyo PA-C [address] [place], [place] [phone] SPINAL PUNCTURE THERAPEUTIC, DRAIN CSF VIA NEEDLE OR CATH [facility] Comment on above: SPINAL PUNCTURE THERAPEUTIC, DRAIN CSF V IA NEEDLE OR CATH Start: 02-05-2025 Subsequent hospital visit by physician 02/05/2025 9:30 AM EDT Hospital Encounter [facility] [address] [place] [address] Janice Arroyo PA-C [address] [place], [place] [id number] IIH (idiopathic intracranial hypertension) [G93.2] [facility] Comment on above: IIH (idiopathic intracranial hypertensio n) [G93.2] Start: 02-05-2025 End: 02-05-2025 Therapeutic spinal puncture drainage csf SPINAL PUNCTURE THERAPEUTIC, DRAIN CSF VIA NEEDLE OR CATH IIH (idiopathic intracranial hypertension) 02/05/2025 9:30 AM EDT IR Start: 01-25-2025 End: 04-26-2025 CBC W Auto Differential panel - Blood COMPLETE BLOOD COUNT AND DIFFERENTIAL Lab Routine IIH (idiopathic intracranial hypertension) Expected: 01/25/2025, Expires: 04/26/[address] [facility] Work Phone: Comment on above: Expected: 01/25/2025, Expires: Start: 01-25-2025 End: 04-26-2025 PT panel - Platelet poor plasma by Coagulation assay PROTHROMBIN TIME Lab Routine IIH (idiopathic intracranial hypertension) Expected: 01/25/2025, Expires: 04/26/2025 [facility] Comment on above: Expected: 01/25/2025, Expires: Start: 01-04-2025 Patient referral [facility] Work Phone: Start: 12-25-2024 End: 12-25-2024 Admission to same day surgery center 12/25/2024 9:30 AM EST - 12/25/2024 10:30 AM EST Surgery INTERVENT[facility]AL RADIOLOGY [address] [place] [address] Ronak, Radiology USED TO SCHEDULE RADIOLOGY AT SPINAL PUNCTURE THERAPEUTIC, DRAIN CSF VIA NEEDLE OR CATH [facility] Comment on above: SPINAL PUNCTURE THERAPEUTIC, DRAIN CSF V IA NEEDLE OR CATH Start: 12-25-2024 Subsequent hospital visit by physician 12/25/2024 9:30 AM EST Hospital Encounter [facility] RADIOLOGY [address] [place] [address] IIH (idiopathic intracranial hypertension) [G93.2] [facility] Comment on above: IIH (idiopathic intracranial hypertensio n) [G93.2] Start: 12-25-2024 End: 12-25-2024 Therapeutic spinal puncture drainage csf SPINAL PUNCTURE THERAPEUTIC, DRAIN CSF VIA NEEDLE OR CATH IIH (idiopathic intracranial hypertension) 12/25/2024 9:30 AM EST [facility] IR Start: 12-19-2024 Colsc flx w/rmvl of tumor polyp lesion snare tq COLONOSCOPY W/LESION REMOVAL [facility] Start: 12-19-2024 Egd transoral biopsy single/multiple EGD BIOPSY SINGLE/MULTIPLE [facility] Start: 12-19-2024 Patient discharge [facility] Start: 12-07-2024 End: 12-07-2024 Anesthesia consultation 12/07/2024 7:30 AM EST PAT Pre Anesthesia [address] [place] [address] virtual [phone] dos 2/3 Pre Anesthesia Comment on above: virtual [phone] dos 2/3 Start: 11-22-2024 Medicare Advantage Annual Wellness Visit Medicare Advantage Annual Wellness Visit [facility] Start: 11-20-2024 End: 11-20-2024 Admission to same day surgery center 11/20/2024 9:30 AM EST - 11/20/2024 11:10 AM EST Surgery [facility] RADIOLOGY [address] [place] [address] Janice Arroyo PA-C [address] [place], [place] [phone] SPINAL PUNCTURE THERAPEUTIC, DRAIN CSF VIA NEEDLE OR CATH [facility] Comment on above: SPINAL PUNCTURE THERAPEUTIC, DRAIN CSF V IA NEEDLE OR CATH Start: 11-20-2024 Subsequent hospital visit by physician 11/20/2024 9:30 AM EST Hospital Encounter [facility] RADIOLOGY [address] [place] [address] Janice Arroyo PA-C [address] [place] [address] IIH (idiopathic intracranial hypertension) [G93.2] [facility] Comment on above: IIH (idiopathic intracranial hypertensio n) [G93.2] Start: 11-20-2024 End: 11-20-2024 Therapeutic spinal puncture drainage csf SPINAL PUNCTURE THERAPEUTIC, DRAIN CSF VIA NEEDLE OR CATH IIH (idiopathic intracranial hypertension) 11/20/2024 9:30 AM EST [facility] IR Start: 10-27-2024 End: 10-27-2024 Anesthesia consultation 10/27/2024 8:00 AM EST PAT Pre Anesthesia [address] [place] [address] VV// [phone] Pre Anesthesia Comment on above: VV// [phone] Start: 10-18-2024 End: 10-18-2024 Admission to same day surgery center 10/18/2024 9:30 AM EST - 10/18/2024 11:00 AM EST Surgery [facility] RADIOLOGY [address] [place] [address] Janice Arroyo PA-C [address] [place], [place] [phone] SPINAL PUNCTURE LUMBAR DIAGNOSTIC [facility] Comment on above: SPINAL PUNCTURE LUMBAR DIAGNOSTIC Start: 10-18-2024 End: 10-18-2024 Diagnostic lumbar spinal puncture SPINAL PUNCTURE LUMBAR DIAGNOSTIC IIH (idiopathic intracranial hypertension) 10/18/2024 9:30 AM EST [facility] IR Start: 10-18-2024 Subsequent hospital visit by physician 10/18/2024 9:30 AM EST Hospital Encounter [facility]AL RADIOLOGY [address] [place] [address] Janice Arroyo PA-C [address] [place], [place] [phone] IIH (idiopathic intracranial hypertension) [G93.2] HL [facility] Comment on above: IIH (idiopathic intracranial hypertensio n) [G93.2] Start: 10-04-2024 End: 10-04-2024 Anesthesia consultation 10/04/2024 7:00 AM EST PAT Pre Anesthesia [address] [address] Virutal Pacc/ph [phone] Pre Anesthesia Comment on above: Virutal Pacc/ph [phone] Start: 10-02-2024 End: 10-02-2024 Patient encounter procedure 10/02/2024 8:00 AM EST Office Visit [facility] [address] [address] Stefano Chacon MD [address] [place] [address] Return about 5 months Ophthalmology Comment on above: Return about 5 months Start: 09-15-2024 Subsequent hospital visit by physician 09/15/2024 Hospital Encounter Angio [address] [place] [phone] CANDY SEPARATOR HARD [address] [place] [address] IIH (idiopathic intracranial hypertension) [G93.2] Angio Comment on above: IIH (idiopathic intracranial hypertensio n) [G93.2] Start: 07-23-2024 COVID-19 Vaccine ( season) COVID-19 Vaccine () [facility] Start: 07-23-2024 Covid-19 Vaccine ( season) Covid-19 Vaccine ( season) [facility] Start: 07-23-2024 Influenza vaccination Influenza Vaccine (#1) [facility] Start: 06-07-2024 End: 06-07-2024 Admission to same day surgery center 06/07/2024 8:30 AM EDT - 06/07/2024 9:30 AM EDT Surgery Angio [address] [place] [id number] CANDY SEPARATOR HARD [address] [place] [address] SPINAL PUNCTURE LUMBAR DIAGNOSTIC Angio Comment on above: SPINAL PUNCTURE LUMBAR DIAGNOSTIC Start: 06-07-2024 End: 06-07-2024 Diagnostic lumbar spinal puncture SPINAL PUNCTURE LUMBAR DIAGNOSTIC IIH (idiopathic intracranial hypertension) 06/07/2024 8:30 AM EDT [facility]6 Start: 06-07-2024 Subsequent hospital visit by physician 06/07/2024 8:30 AM EDT Hospital Encounter Angio [address] [place] [address] CANDY SEPARATOR HARD [address] [place] [address] IIH (idiopathic intracranial hypertension) [G93.2] Angio Comment on above: IIH (idiopathic intracranial hypertensio n) [G93.2] Start: 05-01-2024 End: 05-01-2024 Patient encounter procedure 05/01/2024 8:00 AM EDT Office Visit [facility] [address] [address] Stefano Chacon MD [address] [place] [address] follow iup in 4 mnths per pt Ophthalmology Comment on above: follow iup in 4 mnths per pt Start: 03-22-2024 Diabetes mellitus screening Diabetes Screening [facility] Start: 07-23-2023 Covid-19 Vaccine () Covid-19 Vaccine () [facility] Start: 07-23-2023 Influenza vaccination [facility] Start: 06-04-2023 End: 08-04-2023 Basic metabolic 2000 panel - Serum or Plasma [facility] Work Phone: Comment on above: Expected: 06/04/2023, Expires: Start: 03-02-2023 End: 05-02-2023 aPTT in Platelet poor plasma by Coagulation assay ACTIVATED PTT Lab Routine Pre-procedure lab exam Expected: 03/02/2023 (Approximate), Expires: 05/02/[address] [facility] Work Phone: Comment on above: Expected: 03/02/2023 (Approximate), Expi res: 05/02/2023 Start: 03-02-2023 End: 05-02-2023 CBC panel - Blood by Automated count CBC Lab Routine Pre-procedure lab exam Expected: 03/02/2023 (Approximate), Expires: 05/02/[address] [facility] Work Phone: Comment on above: Expected: 03/02/2023 (Approximate), Expi res: 05/02/2023 Start: 03-02-2023 End: 05-02-2023 Choriogonadotropin.beta subunit [Units/volume] in Serum or Plasma HCG QUANTITATIVE Lab Routine Pre-procedure lab exam Expected: 03/02/2023 (Approximate), Expires: 05/02/[address] [facility] Work Phone: Comment on above: Expected: 03/02/2023 (Approximate), Expi res: 05/02/2023 Start: 03-02-2023 End: 05-02-2023 Comprehensive metabolic 2000 panel - Serum or Plasma COMP METABOLIC PANEL Lab Routine Pre-procedure lab exam Expected: 03/02/2023 (Approximate), Expires: 05/02/[address] [facility] Work Phone: Comment on above: Expected: 03/02/2023 (Approximate), Expi res: 05/02/2023 Start: 03-02-2023 End: 05-02-2023 CONFIRM BLOOD TYPE CONFIRM BLOOD TYPE Blood Bank Routine Pre-procedure lab exam Expected: 03/02/2023 (Approximate), Expires: 05/02/[address] [facility] Work Phone: Comment on above: Expected: 03/02/2023 (Approximate), Expi res: 05/02/2023 Start: 03-02-2023 End: 05-02-2023 PT panel - Platelet poor plasma by Coagulation assay PROTHROMBIN TIME/PT Lab Routine Pre-procedure lab exam Expected: 03/02/2023 (Approximate), Expires: 05/02/[address] [facility] Work Phone: Comment on above: Expected: 03/02/2023 (Approximate), Expi res: 05/02/2023 Start: 03-02-2023 End: 05-02-2023 TYPE AND SCREEN,30 DAY TYPE AND SCREEN,30 DAY Blood Bank Routine Pre-procedure lab exam Expected: 03/02/2023 (Approximate), Expires: 05/02/[address] [facility] Work Phone: Comment on above: Expected: 03/02/2023 (Approximate), Expi res: 05/02/2023 Start: 11-22-2022 DEPRESSION ASSESSMENT DEPRESSION ASSESSMENT [facility] Start: 09-25-2022 History and physical examination, annual for health maintenance Wellness Visit [facility] Start: 07-23-2022 Influenza vaccination [facility] Start: 06-21-2022 DTaP/Tdap/Td Vaccines (3 - Td or Tdap) DTaP/Tdap/Td Vaccines (3 - Td or Tdap) [facility] Start: 06-21-2022 Tetanus vaccination Tetanus: Every 10yrs [facility] Start: 06-03-2022 Urine microalbumin profile [facility] Start: 09-02-2021 COVID-19 Vaccine (3 - Booster for Moderna series) COVID-19 Vaccine (3 - Booster for Moderna series) [facility] Start: 05-28-2021 COVID-19 VACCINE (3 - Booster for Moderna series) COVID-19 VACCINE (3 - Booster for Moderna series) [facility] Start: 05-28-2021 COVID-19 VACCINE (3 - Moderna series) COVID-19 VACCINE (3 - Moderna series) [facility] Start: 2015 HPV TESTING HPV TESTING [facility] Start: 2015 Screening for malignant neoplasm of cervix HPV Testing [facility] Start: 2006 PAP TESTING PAP TESTING [facility] Start: 2006 Screening for malignant neoplasm of cervix [facility] Start: 02-27-2004 Hepatitis B Vaccine (1 of 3 - 19+ 3-dose series) Hepatitis B Vaccine (1 of 3 - 19+ 3-dose series) [facility] Start: 02-27-2004 Hepatitis B Vaccines (1 of 3 - 19+ 3-dose series) Hepatitis B Vaccines (1 of 3 - 19+ 3-dose series) [facility] Start: 02-27-2004 Urine microalbumin profile DTAP,TDAP,TD (1 - Tdap) [facility] Start: 2003 Hepatitis C screening Hepatitis C Screening [facility] Start: 2003 HEPATITIS C SCREENING HEPATITIS C SCREENING [facility] Start: 2003 HIV SCREENING HIV SCREENING [facility] Start: 2003 HIV screening HIV Screening [facility] Start: 02-27-2000 HIV screening HIV Screening [facility] Start: 1998 Varicella vaccination Varicella Vaccines (1 of 2 - 13+ 2-dose series) [facility] Start: 1997 Depression Monitoring Depression Monitoring [facility] Start: 1997 Depression screening using PHQ-9 (Patient Health Questionnaire 9) score Depression Screening (PHQ-2/9) [facility] Start: 1986 MMR Vaccines (1 of 1 - Standard series) MMR Vaccines (1 of 1 - Standard series) [facility] Start: 1985 COVID-19 VACCINE (#1) COVID-19 VACCINE (#1) [facility] Start: 1985 HEPATITIS B (1 of 3 - 3-dose series) HEPATITIS B (1 of 3 - 3-dose series) [facility] Start: 1985 Hepatitis B Vaccine (1 of 3 - 3-dose series) Hepatitis B Vaccine (1 of 3 - 3-dose series) [facility] Start: 1985 HIV screening HIV Screening [facility] Start: 1985 Lipid panel Lipid Panel [facility] Start: 1985 Screening for malignant neoplasm of cervix Pap Smear [facility] Diagnostic lumbar sp inal puncture SPINAL PUNCTURE LUMBAR DIAGNOSTIC IIH (idiopathic intracranial hypertension) [facility]6 IR CEREBRAL ARCH & T HREE VESSEL IR CEREBRAL ARCH & THREE VESSEL Radiology Routine IIH (idiopathic intracranial hypertension) Ordered: 02/03/[address] [facility] Work Phone: Comment on above: Ordered: 02/03/2023 IR LP FOR DRAINAGE (PRESSURE) IR LP FOR DRAINAGE (PRESSURE) Radiology Routine Other localized visual field defect, bilateral Ordered: 01/04/[address] [facility] Work Phone: Comment on above: Ordered: 01/04/2023 IR LP FOR DRAINAGE (PRESSURE) IR LP FOR DRAINAGE (PRESSURE) Radiology Routine IIH (idiopathic intracranial hypertension) Ordered: 01/28/[address] [facility] Work Phone: Comment on above: Ordered: 01/28/2023 End: 03-07-2024 IR LP FOR DRAINAGE (PRESSURE) IR LP FOR DRAINAGE (PRESSURE) Radiology SENTHIL IIH (idiopathic intracranial hypertension) Other localized visual field defect, bilateral Once per month for 12 Occurrences starting 03/22/2023 until 03/07/[address] [facility] Work Phone: Comment on above: Once per month for 12 Occurrences starti ng 03/22/2023 until 03/07/2024 IR LP FOR DRAINAGE (PRESSURE) IR LP FOR DRAINAGE (PRESSURE) Radiology Routine Intracranial hypertension Ordered: 03/25/[address] [facility] Work Phone: Comment on above: Ordered: 03/25/2023 IR LP FOR DRAINAGE (PRESSURE) IR LP FOR DRAINAGE (PRESSURE) Radiology SENTHIL IIH (idiopathic intracranial hypertension) Ordered: 05/17/[address] [facility] Work Phone: Comment on above: Ordered: 05/17/2023 IR LP FOR DRAINAGE (PRESSURE) IR LP FOR DRAINAGE (PRESSURE) Radiology Routine IIH (idiopathic intracranial hypertension) Ordered: 06/09/[address] [facility] Work Phone: Comment on above: Ordered: 06/09/2023 IR LP FOR DRAINAGE (PRESSURE) IR LP FOR DRAINAGE (PRESSURE) Radiology Routine IIH (idiopathic intracranial hypertension) Ordered: 06/28/[address] [facility] Work Phone: Comment on above: Ordered: 06/28/2023 IR LP FOR DRAINAGE (PRESSURE) IR LP FOR DRAINAGE (PRESSURE) Radiology Routine IIH (idiopathic intracranial hypertension) Ordered: 10/21/[address] [facility] Work Phone: Comment on above: Ordered: 10/21/2023 IR NEUROVASCULAR STENT IR NEUROV ASCULAR STENT Radiology Routine IIH (idiopathic intracranial hypertension) Ordered: 02/03/[address] [facility] Work Phone: Comment on above: Ordered: 02/03/2023 IR VASCULAR ACCESS T EAM MIDLINE INSERTION RADIO IR VASCULAR ACCESS TEAM MIDLINE INSERTION RADIO Radiology Routine Preoperative examination Difficult intravenous access Ordered: 04/01/[address] [facility] Work Phone: Comment on above: Ordered: 04/01/2023 IR VASCULAR ACCESS T EAM MIDLINE INSERTION RADIO IR VASCULAR ACCESS TEAM MIDLINE INSERTION RADIO Radiology Routine Pre-op evaluation Difficult intravenous access Ordered: 01/28/[address] [facility] Work Phone: Comment on above: Ordered: 01/28/2024 IR VERTEBRAL ARTERY IR VERTEBRAL ARTERY Radiology Routine IIH (idiopathic intracranial hypertension) Ordered: 02/03/[address] [facility] Work Phone: Comment on above: Ordered: 02/03/2023 End: 01-21-2024 Mra head w/o & w/contrast material MRV BRAIN WO/W IVCON Radiology Routine Other localized visual field defect, bilateral IIH (idiopathic intracranial hypertension) 1 Occurrences starting 12/22/2022 until 01/21/2024 [facility] Work Phone: Comment on above: 1 Occurrences starting 12/22/2022 until 01/21/2024 Patient referral [facility] Work Phone: End: 06-06-2025 Porphyrins, urine, fractionated [facility] [employer] [facility] Work Phone: Comment on above: Once (Lab) for 1 Occurrences starting until 06/06/2025 REFER FOR ADMIT INTERVIEW REFER FOR ADMIT INTERVIEW Procedures Routine IIH (idiopathic intracranial hypertension) Pre-procedure lab exam Ordered: 02/03/2023 [facility] Work Phone: Comment on above: Ordered: 02/03/2023 RF Guidance for flui d aspiration of Lumbar spine space IR LP FOR DRAINAGE (PRESSURE) Radiology Routine IIH (idiopathic intracranial hypertension) Ordered: 01/03/2024 [facility] [employer] Work Phone: Comment on above: Ordered: 01/03/2024 RF Guidance for flui d aspiration of Lumbar spine space IR LP FOR DRAINAGE (PRESSURE) Radiology Routine IIH (idiopathic intracranial hypertension) Ordered: 02/21/2024 [facility] [employer] Work Phone: Comment on above: Ordered: 02/21/2024 RF Guidance for flui d aspiration of Lumbar spine space IR LP FOR DRAINAGE (PRESSURE) Radiology Routine IIH (idiopathic intracranial hypertension) Ordered: 03/29/2024 [facility] [employer] Work Phone: Comment on above: Ordered: 03/29/2024 RF Guidance for flui d aspiration of Lumbar spine space IR LP FOR DRAINAGE (PRESSURE) Radiology Routine IIH (idiopathic intracranial hypertension) Ordered: 05/01/2024 [facility] [employer] Work Phone: Comment on above: Ordered: 05/01/2024 RF Guidance for flui d aspiration of Lumbar spine space IR LP FOR DRAINAGE (PRESSURE) Radiology Routine IIH (idiopathic intracranial hypertension) Ordered: 06/15/2024 [facility] [employer] Work Phone: Comment on above: Ordered: 06/15/2024 RF Guidance for flui d aspiration of Lumbar spine space IR LP FOR DRAINAGE (PRESSURE) Radiology Routine IIH (idiopathic intracranial hypertension) Ordered: 07/12/2024 [facility] Knock [facility] [employer] Work Phone: Comment on above: Ordered: 07/12/2024 RF Guidance for flui d aspiration of Lumbar spine space IR LP FOR DRAINAGE (PRESSURE) Radiology Routine IIH (idiopathic intracranial hypertension) Ordered: 08/21/2024 [employer] Knock [facility] [employer] Work Phone: Comment on above: Ordered: 08/21/2024 RF Guidance for flui d aspiration of Lumbar spine space IR LP FOR DRAINAGE (PRESSURE) Radiology Routine IIH (idiopathic intracranial hypertension) Ordered: 09/20/2024 [facility] [employer] Work Phone: Comment on above: Ordered: 09/20/2024 RF Guidance for flui d aspiration of Lumbar spine space IR LP FOR DRAINAGE (PRESSURE) Radiology Routine IIH (idiopathic intracranial hypertension) Ordered: 10/02/2024 Knock Knock [facility] [employer] Work Phone: Comment on above: Ordered: 10/02/2024 RF Guidance for flui d aspiration of Lumbar spine space IR LP FOR DRAINAGE (PRESSURE) Radiology Routine IIH (idiopathic intracranial hypertension) Ordered: 10/26/2024 [employer] Work Phone: Comment on above: Ordered: 10/26/2024 RF Guidance for flui d aspiration of Lumbar spine space IR LP FOR DRAINAGE (PRESSURE) Radiology Routine IIH (idiopathic intracranial hypertension) Ordered: 11/27/2024 Knock Knock [facility] [employer] Work Phone: Comment on above: Ordered: 11/27/2024 RF Guidance for flui d aspiration of Lumbar spine space IR LP FOR DRAINAGE (PRESSURE) Radiology Routine IIH (idiopathic intracranial hypertension) Ordered: 12/28/2024 Knock Knock [facility] [employer] Work Phone: Comment on above: Ordered: 12/28/2024 Tissue exam [facility] Work Phone: Comment on above: Release Upon Ordering for 1 Occurrences starting 03/12/2025 Tissue exam [facility] Review [employer] Work Phone: Comment on above: Release Upon Ordering for 1 Occurrences starting 05/20/2025, 1 completed [facility] MC ANGIO HB6 [facility] MC ANGIO HB6 [facility] Immunizations Immunization Date Immunization Notes Care Provider [facility] 09-09-2024 influenza virus vacc ine, unspecified formulation Stefano Chacon MD Work Phone: [facility] 10-25-2023 influenza virus vacc ine, unspecified formulation Stefano Chacon MD Work Phone: [facility] 09-01-2022 influenza nasal, unspecified formulation Stefano Chacon MD Work Phone: [facility] 09-01-2022 influenza virus vacc ine, unspecified formulation DR ELIZABETH CONKLIN MD [facility] 04-02-2021 SARS-CoV-2 (COVID-19 ) mRNA-[address] ELIZABETH CONKLIN MD [facility] 03-05-2021 SARS-CoV-2 (COVID-19 ) mRNA-[address] ELIZABETH CONKLIN MD [facility] 06-03-2012 tetanus toxoid, redu jo-ann diphtheria toxoid, and acellular pertussis vaccine, adsorbed DR ELIZABETH CONKLIN MD [facility] 02-21-2007 tetanus and diphther ia toxoids, adsorbed, preservative free, for adult use (5 Lf of tetanus toxoid and 2 Lf of diphtheria toxoid) DR ELIZABETH CONKLIN MD [facility] Payers Date Payer Category Payer Medicare ([employer] Care) 1.2. [id number] 2024 Medicare HMO [id number] 2024 Unknown [id number] 2024 Self-pay 2024 Unknown MICKEY MCCRARY PPO [id number] 2024-Present [phone] [address] [place] [address] PPO [id number] 2024 Unknown [id number] 2022 Unknown [id number] 2022 Private Health Insurance [id number] 2022 Unknown [id number] 2012 Medicare [id number] 2012 Medicare [id number] 1985 Unknown [id number] 2.840.1.886281.3.579.2. 903 1985 Unknown [id number] 2.840.1.398292.3.579.2. 627 1985 Unknown [id number] 2.0.1.213111.3.579.2 62 1985 Unknown [id number] 2.840.1.578410.3.579.2. 62 1985 Unknown [id number] 2.16840.1.898020.3.579.2. 62 1985 Unknown [id number] 2.16840.1.939962.3.579.2 62 1985 Unknown [id number] 2.16840.1.875203.3.579.2. 627 1985 Unknown [id number] 2.16840.1.787618.3.579.2. 627 1985 Unknown [id number] 2.840.1.022029.3.579.2. 627 1985 Unknown [id number] 2.16840.1.503414.3.579.2. 627 Unknown [id number] 2.840.1.409838.3.579.2. 462 Unknown [id number] 2.840.1.091877.3.579.2. 462 Unknown [id number] 2.840.1.007297.3.579.2. 462 Unknown [id number] 2.840.1.528702.3.579.2. 462 Unknown [id number] 2.840.1.896273.3.579.2. 462 Unknown [id number] 2.840.1.263825.3.579.2. 462 Unknown [id number] 2.840.1.909231.3.579.2. 462 Unknown [id number] 2.840.1.649030.3.579.2. 462 Unknown [id number] 2.840.1.040546.3.579.2. 462 Unknown [id number] 2.840.1.238729.3.579.2. 462 Unknown [id number] 2.840.1.096248.3.579.2. 462 Unknown [id number] 2.840.1.580053.3.579.2. 462 Unknown [id number] 2.840.1.232036.3.579.2. 462 Unknown [id number] 2.840.1.195075.3.579.2. 462 Unknown [id number] 2.840.1.113380.3.579.2. 462 Social History Date Type Detail Facility Tobacco smoking status INIS Tobacco smoking consumption unknown [facility] Start: 1985 Sex Assigned At Not on file [facility] Start: 08-10-2022 End: 09-21-2022 Tobacco smoking status NHIS Never smoked tobacco [facility] Start: 08-10-2022 End: 06-06-2025 Alcohol intake Ex-drinker (finding) [facility] Start: 07-30-2022 End: 08-09-2022 Exposure to SARS-CoV-2 (event) Not sure [facility] Tobacco Nicotine Use: Va ping Product in Last 90 Days. Type: medical marijuana. Started at age: 32 Years. [facility] Tobacco smoking status No Smoking Status Entered [facility] Start: 1985 Sex Assigned At Female A [facility] Start: 09-21-2022 End: 12-22-2022 Tobacco use and exposure Smokeless tobacco non-user [facility] Start: 01-12-2023 Alcohol Comment Rare [facility] Start: 03-15-2023 History SDOH Financial 5 [facility] Start: 03-15-2023 History SDOH Food Worry 1 [facility] Start: 03-15-2023 History SDOH Transport Med 2 [facility] Start: 06-04-2023 End: 06-05-2025 History of Social function [facility] Start: 06-04-2023 End: 06-05-2025 Tobacco use panel [facility] How hard is it for you to pay for the very basics like food, housing, medical care, and heating Not hard at all [facility] (I/We) worried whether (my/our) food would run out before (I/we) got money to buy more. Never true [facility] In the past 12 months, was there a time when you were not able to pay the mortgage or rent on time? No [facility] Start: 03-03-2024 End: 10-02-2024 Alcohol intake Current drinker of alcohol (finding) [facility] Start: 09-06-2022 End: 02-15-2025 Sex Female (finding) [facility] Are you now , , , , never or living with a partner? [facility] How often to you hav e a drink containing alcohol? Never [facility] How hard is it for you to pay for the very basics like food, housing, medical care, and heating Not very hard [facility] Do you feel stress - tense, restless, nervous, or anxious, or unable to sleep at night because your mind is troubled all the time - these days [OSQ] Only a little [facility] Start: 06-18-2025 End: 07-04-2025 Alcoholic beverage intake Lifetime non-drinker (finding) [facility] NEGATED: Highlighted rowStart: NINF History of tobacco use Passive smoker [facility] NEGATED: Highlighted row Not [facility] Medical Equipment Procedure Code Equipment Code Equipment Origin al Text Equipment Identifier Dates System Vascade 6 /7fr Collagen Compression Bioabsorbable Vascular - [id number] Start: 03-12-2023 Goals Date Patient Goal Desired Activity /State Functional Status Date Assessment Result Facility 06-18-2025 Total score [AUDIT-C] 0 06/18/20 25 10:52 AM EDT Dolly Boggs RN [facility] 05-26-2025 Total score [AUDIT-C] 0 05/26/20 25 11:43 AM EDT Dolly Boggs RN [facility] 10-27-2022 Functional Status Bathroom privileges [facility] 10-27-2022 Functional Status [facility] 10-27-2022 Functional Status Maintained [facility] 10-26-2022 Functional Status Sensory Deficits None A [facility] 09-24-2022 Functional Status Awake [facility] 09-24-2022 Functional Status [facility] 09-24-2022 Functional Status Maintained [facility] Mental Status Date Assessment Result Facility 12-19-2024 Cognitive function Voice/Name [facility] Work Phone: 10-27-2022 Mental Status Oriented x 4 [facility] 10-27-2022 Mental Status [facility] 10-27-2022 Mental Status Orientation Asse ssment Oriented x 4 [facility] 09-24-2022 Mental Status Oriented x 4 [facility] 09-24-2022 Mental Status [facility] Clinical Notes 07-29-2022 to 07-04-2025 Discharge InstructionsAttachmentsMichelle Mckeon RN - 07/04/2025 7:13 AM EDTMichelle Mckeon RN - 07/04/2025 7:13 AM EDTDischarge Jewell Miller PA-C - 06/18/2025 10:45 AM EDTAttachments Note Date & Type Note Facility 07-04-2025 Hospital Discharg e instructions Randall Roy Jr., DO - 07/04/2025 7:41 AM EDT Thank you for choosing [facility] Emergency Department and allowing me to take care of you to date. If your symptoms are not improving, begin to worsen, new symptoms develop/additional concerns arise, please return to the Emergency Department at any time for further evaluation and treatment. . Dr. Randall Roy Jr. D.O. Follow-up with your primary care doctor, contact information provided, or any emergency department as needed and with MRI as previously planned or to any emergency department MRI availability if symptoms worsen or persist The following attachments cannot be sent through Care Everywhere.Low Back Pain Discharge Instructions (Montenegrin)documented in this encounter [facility] 07-04-2025 Emergency department Note Patient c/o chronic lower back pain and sees pain management states pain is uncontrolled at this time documented in this encounter [facility] 07-04-2025 Emergency department Triage note Patient c/o chronic lower back pain and sees pain management states pain is uncontrolled at this time [facility] 06-18-2025 Hospital Discharg e instructions Melchor Miller PA-C - 06/18/2025 1:20 PM EDT There is no signs of any blood clot on your ultrasound. Elevate the legs above heart level to decrease swelling and use compression stockings daily. Use Tylenol for pain. Follow-up with your primary care doctor within a week for further evaluation and management of symptoms. Return to emergency department if swelling continues to get worse, have chest pain, difficulty breathing, fevers, chills, vomiting or any other symptoms that concern you. documented in this encounter [facility] 06-18-2025 Emergency department Note EMERGENCY DEPARTMENT ENCOUNTER Pt Name: Lexis Nguyen Birthdate 1985 Date of evaluation: 06/18/2025 ED Provider: Melchor Miller PA-C CHIEF COMPLAINT Chief Complaint Patient presents with Leg Pain R calf pain since getting progressively worse. Denies any recent fall or injury. States she had surgery 1.5 month ago for adhesion wrapped around intestines. HISTORY OF PRESENT ILLNESS (Location/Symptom, Timing/Onset, Context/Setting, Quality, Duration, Modifying Factors, Severity) Note limiting factors. I wore appropriate PPE for the entirety of this encounter. HPI Lexis Nguyen is a 40 y.o. female who presents to the emergency department for concern of left calf pain and swelling that has been ongoing for the last 2 or 3 days. She states symptoms started gradually and progressively gotten worse which is why she is coming here. She is concerned for a DVT. She recently had abdominal surgery about a month ago and has been hospitalized in between then. No prior history of DVT or PE. Denies any injury or trauma to the area. Pain is intermittent and worse with ambulating. No paresthesias or weakness. No chest pain or shortness of breath. No fever or chills. No redness or discharge. Nursing Notes were reviewed. Limitations to history: None Outside historians: None REVIEW OF SYSTEMS Review of Systems Please see HPI for pertinent positives and negatives. All other systems reviewed and negative PAST MEDICAL HISTORY Medical History[1] SURGICAL HISTORY Surgical History[2] CURRENT MEDICATIONS Previous Medications AMITRIPTYLINE (ELAVIL) 50 MG TABLET Take 50 mg by mouth Nightly. ARIPIPRAZOLE (ABILIFY) 10 MG TABLET Take 10 mg by mouth daily. CALCIUM CITRATE 250 MG TABLET Take 1 tablet by mouth daily. CHOLECALCIFEROL (VITAMIN D-3) 125 MCG (5000 UT) CAPSULE Take 5,000 Units by mouth daily. CYANOCOBALAMIN (VITAMIN B-12 PO) Take 2 tablets by mouth daily. DULOXETINE (CYMBALTA) [address] CAPSULE Take 60 mg by mouth 2 times daily. LACOSAMIDE (VIMPAT) 200 MG TABLET TABLET Take 200 mg by mouth 2 times daily. MULTIPLE VITAMIN (MULTIVITAMIN ADULT PO) Take 2 tablets by mouth daily. SEMAGLUTIDE, 2 MG/DOSE, SC Inject 1.7 mg under the skin 1 (one) time per week. TRAMADOL (ULTRAM) 50 MG TABLET Take 50 mg by mouth every 12 hours as needed for severe pain (7-10) or moderate pain (4-6). ALLERGIES Nortriptyline, Nsaids, Other, Gabapentin, and Penicillins FAMILY HISTORY Family History[3] SOCIAL HISTORY Social History[4] SCREENINGS PHYSICAL EXAM ED Triage Vitals [06/18/25 1055] Temp Heart Rate Resp BP 36.5 C (97.7 F) 92 18 122/85 SpO2 Temp Source Heart Rate Source Patient Position 100 % Temporal Monitor -- BP Location FiO2 (%) -- -- Physical Exam GENERAL APPEARANCE: NAD, no cyanosis, pallor, or diaphoresis. EYES: lids/conjunctiva normal. EARS/NOSE/THROAT: Mucous membranes moist HEAD/NECK: normocephalic atraumatic, no facial trauma, neck is supple. RESPIRATORY: respiratory effort normal, speaks in full sentences, no tripod position, no accessory muscle use. Lungs clear to auscultation without rhonchi, wheezes, rales CARDIAC: Regular rate and rhythm, no murmurs gallops or rubs. Does have some mild unilateral edema to the right lower extremity compared to left. No pitting edema. Does have calf tenderness to the outside. No palpable cords. MUSCLES/EXTREMITIES: Lower Extremity Exam: No obvious deformity. Does have right-sided calf tenderness noted. No tenderness to the anterior knee on the right side. No other tenderness to the bilateral lower extremities. ROM is intact. 5/5 strength to hip flexors, hip extensors, knee flexion, knee extension, dorsiflexion, plantarflexion, EHL of great toe. Brisk cap refill < 2 seconds. DP, PT pulses are 2+ bilaterally. Distal sensation and motor intact. Compartments soft. DIAGNOSTIC RESULTS RADIOLOGY (Per Emergency Physician): Signs negative for DVT SVT or any other abnormalities Interpretation per the Radiologist below, if available at the time of this note: Vascular US lower extremity venous duplex right (Results Pending) ED BEDSIDE ULTRASOUND: Performed by ED Physician - none LABS: Labs Reviewed - No data to display All other labs were within normal range or not returned as of this dictation. EMERGENCY DEPARTMENT COURSE and DIFFERENTIAL DIAGNOSIS/MDM: Vitals: Vitals: 06/18/25 1052 06/18/25 1055 BP: 122/85 Pulse: 92 Resp: 18 Temp: 36.5 C (97.7 F) TempSrc: Temporal SpO2: 100% Weight: 107 kg (235 lb) Height: 1.626 m (5' 4) Nursing notes and external records reviewed. Patient was last discharged from hospital on 06/08/2025 from the CDU for abdominal pain. On 05/20/2025 she did have diagnostic laparoscopic adhesion lysis. I independently evaluated the patient with supervising attending physician available as needed for collaboration. In brief, Lexis Nguyen is a 40 y.o. female who presented to the emergency department for concerns of right calf pain and swelling as described in HPI. She has had recent surgeries and hospitalizations and is concerned for DVT. No prior history of DVT or PE before in the past. She is not febrile, tachycardic well-appearing and has no chest pain or shortness of breath. Right lower extremity was slightly edematous compared to the left did have calf tenderness noted without any signs of cellulitis, abscess, lymphangitis or infectious process. Knee joint itself was stable with no injury or trauma do not suspect underlying fracture. Compartments are soft and she is neurovascularly intact with no compromise do not suspect arterial occlusion. Did consider underlying DVT given history and ultrasound was obtained and was negative for this. The likelihood of other entities in the differential is insufficient to justify any further testing for them. This was explained to the patient. Patient is stable with close follow-up with PCP within a week for further evaluation. She was advised to elevate the legs and use compression stockings. She was advised to take Tylenol for pain and avoid NSAIDs given her bariatric surgery history. Return precautions given and all questions were answered. Medications - No data to display Diagnoses as of 06/18/25 1327 Right leg swelling Right calf pain CONSULTS: None PROCEDURES: Unless otherwise noted below, none Procedures FINAL IMPRESSION 1. Right leg swelling 2. Right calf pain DISPOSITION Discharge 06/18/2025 01:20:16 PM PATIENT REFERRED TO: Fede Davis MD [address] [place] [address] [address] [facility] [id number] Schedule an appointment as soon as possible for a visit in 1 week DISCHARGE MEDICATIONS: New Prescriptions No medications on file (Comment: Please note this report has been produced using speech recognition software and may contain errors related to that system including errors in grammar, punctuation, and spelling, as well as words and phrases that may be inappropriate. If there are any questions or concerns please feel free to contact the dictating provider for clarification.) Melchor Miller PA-C (electronically signed) Emergency Medicine Provider [1] Past Medical History: Diagnosis Date Abdominal pain Anxiety Arthritis Back pain Blurred vision Depression GERD (gastroesophageal reflux disease) H/O gastric bypass 02/07/2025 [facility] 2013 [place] Hip pain Intestinal malabsorption 02/07/2025 Knee pain Seizures (HCC) SOB (shortness of breath) [2] Past Surgical History: Procedure Laterality Date APPENDECTOMY BRAIN SURGERY CHOLECYSTECTOMY CLAVICLE SURGERY FRACTURE SURGERY GALLBLADDER SURGERY GASTRIC BYPASS 01/23/2014 [facility] - Dr Sumeet Mar [place]. HYSTERECTOMY OTHER SURGICAL HISTORY 05/20/2025 LAPAROSCOPY, DIAGNOSTI TONSILLECTOMY [3] Family History Problem Relation Name Age of Onset Obesity Paternal Grandmother Diabetes Paternal Grandmother Hypertension Paternal Grandmother Obesity Maternal Grandmother Hypertension Maternal Grandmother Obesity Maternal Grandfather Diabetes Maternal Grandfather Hypertension Maternal Grandfather Heart disease Maternal Grandfather Arthritis Father Raymond Cancer Father Raymond Depression Father Raymond Diabetes Father Raymond Hypertension Father Raymond Mental illness Father Raymond Stroke Father Raymond Obesity Father Raymond Heart disease Father Raymond Asthma Mother Sarah COPD Mother Sarah Obesity Mother Sarah Hypertension Mother Sarah Obesity Brother Hypertension Brother Breast cancer Neg Hx Ovarian cancer Neg Hx [4] Social History Socioeconomic History Marital status: Tobacco Use Smoking status: Never Smokeless tobacco: Never Substance and Sexual Activity Alcohol use: Never Drug use: Yes Types: Marijuana Comment: medical marijuana Sexual activity: Yes Partners: Male control/protection: Surgical, Female Sterilization Comment: Hysterectomy Social Drivers of Health Financial Resource Strain: Low Risk (03/26/2025) Overall Financial Resource Strain (CARDIA) Difficulty of Paying Living Expenses: Not very hard Food Insecurity: No Food Insecurity (05/27/2025) Hunger Vital Sign Worried About Running Out of Food in the Last Year: Never true Ran Out of Food in the Last Year: Never true Transportation Needs: No Transportation Needs (06/05/2025) PRAPARE - Transportation Lack of Transportation (Medical): No Lack of Transportation (Non-Medical): No Recent Concern: Transportation Needs - Unmet Transportation Needs (03/26/2025) PRAPARE - Transportation Lack of Transportation (Medical): Yes Lack of Transportation (Non-Medical): No Physical Activity: Insufficiently Active (03/26/2025) Exercise Vital Sign Days of Exercise per Week: 2 days Minutes of Exercise per Session: 30 min Stress: No Stress Concern Present (03/26/2025) [place] - Occupational Stress Questionnaire Feeling of Stress : Only a little Social Connections: Moderately Isolated (03/26/2025) Social Connection and Isolation Panel [NHANES] Frequency of Communication with Friends and Family: More than three times a week Frequency of Social Gatherings with Friends and Family: Once a week Attends Cheondoism Services: Never Active Member of Clubs or Organizations: No Attends Club or Organization Meetings: Never Marital Status: Intimate Partner Violence: Not At Risk (06/05/2025) Humiliation, Afraid, Rape, and Kick questionnaire Fear of Current or Ex-Partner: No Emotionally Abused: No Physically Abused: No Sexually Abused: No Housing Stability: Low Risk (06/05/2025) Housing Stability Vital Sign Unable to Pay for Housing in the Last Year: No Number of Times Moved in the Last Year: 0 Homeless in the Last Year: No Melchor Miller PA-C 06/18/25 1327 documented in this encounter [facility] 06-18-2025 Physician Emergency department Note EMERGENCY DEPARTMENT ENCOUNTER Pt Name: Lexis Nguyen Birthdate 1985 Date of evaluation: 06/18/2025 ED Provider: Melchor Miller PA-C CHIEF COMPLAINT Chief Complaint Patient presents with Leg Pain R calf pain since getting progressively worse. Denies any recent fall or injury. States she had surgery 1.5 month ago for adhesion wrapped around intestines. HISTORY OF PRESENT ILLNESS (Location/Symptom, Timing/Onset, Context/Setting, Quality, Duration, Modifying Factors, Severity) Note limiting factors. I wore appropriate PPE for the entirety of this encounter. HPI Lexis Nguyen is a 40 y.o. female who presents to the emergency department for concern of left calf pain and swelling that has been ongoing for the last 2 or 3 days. She states symptoms started gradually and progressively gotten worse which is why she is coming here. She is concerned for a DVT. She recently had abdominal surgery about a month ago and has been hospitalized in between then. No prior history of DVT or PE. Denies any injury or trauma to the area. Pain is intermittent and worse with ambulating. No paresthesias or weakness. No chest pain or shortness of breath. No fever or chills. No redness or discharge. Nursing Notes were reviewed. Limitations to history: None Outside historians: None REVIEW OF SYSTEMS Review of Systems Please see HPI for pertinent positives and negatives. All other systems reviewed and negative PAST MEDICAL HISTORY Medical History[1] SURGICAL HISTORY Surgical History[2] CURRENT MEDICATIONS Previous Medications AMITRIPTYLINE (ELAVIL) 50 MG TABLET Take 50 mg by mouth Nightly. ARIPIPRAZOLE (ABILIFY) 10 MG TABLET Take 10 mg by mouth daily. CALCIUM CITRATE 250 MG TABLET Take 1 tablet by mouth daily. CHOLECALCIFEROL (VITAMIN D-3) 125 MCG (5000 UT) CAPSULE Take 5,000 Units by mouth daily. CYANOCOBALAMIN (VITAMIN B-12 PO) Take 2 tablets by mouth daily. DULOXETINE (CYMBALTA) [address] CAPSULE Take 60 mg by mouth 2 times daily. LACOSAMIDE (VIMPAT) 200 MG TABLET TABLET Take 200 mg by mouth 2 times daily. MULTIPLE VITAMIN (MULTIVITAMIN ADULT PO) Take 2 tablets by mouth daily. SEMAGLUTIDE, 2 MG/DOSE, SC Inject 1.7 mg under the skin 1 (one) time per week. TRAMADOL (ULTRAM) 50 MG TABLET Take 50 mg by mouth every 12 hours as needed for severe pain (7-10) or moderate pain (4-6). ALLERGIES Nortriptyline, Nsaids, Other, Gabapentin, and Penicillins FAMILY HISTORY Family History[3] SOCIAL HISTORY Social History[4] SCREENINGS PHYSICAL EXAM ED Triage Vitals [06/18/25 1055] Temp Heart Rate Resp BP 36.5 C (97.7 F) 92 18 122/85 SpO2 Temp Source Heart Rate Source Patient Position 100 % Temporal Monitor -- BP Location FiO2 (%) -- -- Physical Exam GENERAL APPEARANCE: NAD, no cyanosis, pallor, or diaphoresis. EYES: lids/conjunctiva normal. EARS/NOSE/THROAT: Mucous membranes moist HEAD/NECK: normocephalic atraumatic, no facial trauma, neck is supple. RESPIRATORY: respiratory effort normal, speaks in full sentences, no tripod position, no accessory muscle use. Lungs clear to auscultation without rhonchi, wheezes, rales CARDIAC: Regular rate and rhythm, no murmurs gallops or rubs. Does have some mild unilateral edema to the right lower extremity compared to left. No pitting edema. Does have calf tenderness to the outside. No palpable cords. MUSCLES/EXTREMITIES: Lower Extremity Exam: No obvious deformity. Does have right-sided calf tenderness noted. No tenderness to the anterior knee on the right side. No other tenderness to the bilateral lower extremities. ROM is intact. 5/5 strength to hip flexors, hip extensors, knee flexion, knee extension, dorsiflexion, plantarflexion, EHL of great toe. Brisk cap refill < 2 seconds. DP, PT pulses are 2+ bilaterally. Distal sensation and motor intact. Compartments soft. DIAGNOSTIC RESULTS RADIOLOGY (Per Emergency Physician): Signs negative for DVT SVT or any other abnormalities Interpretation per the Radiologist below, if available at the time of this note: Vascular US lower extremity venous duplex right (Results Pending) ED BEDSIDE ULTRASOUND: Performed by ED Physician - none LABS: Labs Reviewed - No data to display All other labs were within normal range or not returned as of this dictation. EMERGENCY DEPARTMENT COURSE and DIFFERENTIAL DIAGNOSIS/MDM: Vitals: Vitals: 06/18/25 1052 06/18/25 1055 BP: 122/85 Pulse: 92 Resp: 18 Temp: 36.5 C (97.7 F) TempSrc: Temporal SpO2: 100% Weight: 107 kg (235 lb) Height: 1.626 m (5' 4) Nursing notes and external records reviewed. Patient was last discharged from hospital on 06/08/2025 from the CDU for abdominal pain. On 05/20/2025 she did have diagnostic laparoscopic adhesion lysis. I independently evaluated the patient with supervising attending physician available as needed for collaboration. In brief, Lexis Nguyen is a 40 y.o. female who presented to the emergency department for concerns of right calf pain and swelling as described in HPI. She has had recent surgeries and hospitalizations and is concerned for DVT. No prior history of DVT or PE before in the past. She is not febrile, tachycardic well-appearing and has no chest pain or shortness of breath. Right lower extremity was slightly edematous compared to the left did have calf tenderness noted without any signs of cellulitis, abscess, lymphangitis or infectious process. Knee joint itself was stable with no injury or trauma do not suspect underlying fracture. Compartments are soft and she is neurovascularly intact with no compromise do not suspect arterial occlusion. Did consider underlying DVT given history and ultrasound was obtained and was negative for this. The likelihood of other entities in the differential is insufficient to justify any further testing for them. This was explained to the patient. Patient is stable with close follow-up with PCP within a week for further evaluation. She was advised to elevate the legs and use compression stockings. She was advised to take Tylenol for pain and avoid NSAIDs given her bariatric surgery history. Return precautions given and all questions were answered. Medications - No data to display Diagnoses as of 06/18/25 1327 Right leg swelling Right calf pain CONSULTS: None PROCEDURES: Unless otherwise noted below, none Procedures FINAL IMPRESSION 1. Right leg swelling 2. Right calf pain DISPOSITION Discharge 06/18/2025 01:20:16 PM PATIENT REFERRED TO: Fede Davis MD [address] [place] [address] [phone] Schedule an appointment as soon as possible for a visit in 1 week DISCHARGE MEDICATIONS: New Prescriptions No medications on file (Comment: Please note this report has been produced using speech recognition software and may contain errors related to that system including errors in grammar, punctuation, and spelling, as well as words and phrases that may be inappropriate. If there are any questions or concerns please feel free to contact the dictating provider for clarification.) Melchor Miller PA-C (electronically signed) Emergency Medicine Provider [1] Past Medical History: Diagnosis Date Abdominal pain Anxiety Arthritis Back pain Blurred vision Depression GERD (gastroesophageal reflux disease) H/O gastric bypass 02/07/2025 [facility] 2013 [place] Hip pain Intestinal malabsorption 02/07/2025 Knee pain Seizures (HCC) SOB (shortness of breath) [2] Past Surgical History: Procedure Laterality Date APPENDECTOMY BRAIN SURGERY CHOLECYSTECTOMY CLAVICLE SURGERY FRACTURE SURGERY GALLBLADDER SURGERY GASTRIC BYPASS 01/23/2014 [facility] - Dr Sumeet Mar [place]. HYSTERECTOMY OTHER SURGICAL HISTORY 05/20/2025 LAPAROSCOPY, DIAGNOSTI TONSILLECTOMY [3] Family History Problem Relation Name Age of Onset Obesity Paternal Grandmother Diabetes Paternal Grandmother Hypertension Paternal Grandmother Obesity Maternal Grandmother Hypertension Maternal Grandmother Obesity Maternal Grandfather Diabetes Maternal Grandfather Hypertension Maternal Grandfather Heart disease Maternal Grandfather Arthritis Father Raymond Cancer Father Raymond Depression Father Raymond Diabetes Father Raymond Hypertension Father Raymond Mental illness Father Raymond Stroke Father Raymond Obesity Father Raymond Heart disease Father Raymond Asthma Mother Sarah COPD Mother Sarah Obesity Mother Sarah Hypertension Mother Sarah Obesity Brother Hypertension Brother Breast cancer Neg Hx Ovarian cancer Neg Hx [4] Social History Socioeconomic History Marital status: Tobacco Use Smoking status: Never Smokeless tobacco: Never Substance and Sexual Activity Alcohol use: Never Drug use: Yes Types: Marijuana Comment: medical marijuana Sexual activity: Yes Partners: Male control/protection: Surgical, Female Sterilization Comment: Hysterectomy Social Drivers of Health Financial Resource Strain: Low Risk (03/26/2025) Overall Financial Resource Strain (CARDIA) Difficulty of Paying Living Expenses: Not very hard Food Insecurity: No Food Insecurity (05/27/2025) Hunger Vital Sign Worried About Running Out of Food in the Last Year: Never true Ran Out of Food in the Last Year: Never true Transportation Needs: No Transportation Needs (06/05/2025) PRAPARE - Transportation Lack of Transportation (Medical): No Lack of Transportation (Non-Medical): No Recent Concern: Transportation Needs - Unmet Transportation Needs (03/26/2025) PRAPARE - Transportation Lack of Transportation (Medical): Yes Lack of Transportation (Non-Medical): No Physical Activity: Insufficiently Active (03/26/2025) Exercise Vital Sign Days of Exercise per Week: 2 days Minutes of Exercise per Session: 30 min Stress: No Stress Concern Present (03/26/2025) [employer] [employer] - Occupational Stress Questionnaire Feeling of Stress : Only a little Social Connections: Moderately Isolated (03/26/2025) Social Connection and Isolation Panel [NHANES] Frequency of Communication with Friends and Family: More than three times a week Frequency of Social Gatherings with Friends and Family: Once a week Attends Cheondo[employer] Services: Never Active Member of Clubs or Organizations: No Attends Club or Organization Meetings: Never Marital Status: Intimate Partner Violence: Not At Risk (06/05/2025) Humiliation, Afraid, Rape, and Kick questionnaire Fear of Current or Ex-Partner: No Emotionally Abused: No Physically Abused: No Sexually Abused: No Housing Stability: Low Risk (06/05/2025) Housing Stability Vital Sign Unable to Pay for Housing in the Last Year: No Number of Times Moved in the Last Year: 0 Homeless in the Last Year: No Melchor Miller PA-C 06/18/25 1327 [facility] 06-15-2025 Note Referral faxed and u ploaded into media. [facility] 06-15-2025 Telephone encounter Note Referral faxed and uploaded into media. [facility] 06-15-2025 Miscellaneous Notes Referral faxed and uploaded into media. Referral placed for second opinion for intractable abdominal pain please forward inpatient notes and scopes. Thanks documented in this encounter [facility] 06-15-2025 Note Please see alternate TE - external referral placed for second opinion [facility] 06-15-2025 Telephone encounter Note Please see alternate TE - external referral placed for second opinion [facility] 06-15-2025 Miscellaneous Notes Please see alternate TE - external referral placed for second opinion OP follow up for abdominal pain. Had EGD with surgery, needs colonoscopy (prior attempted and aborted due to poor prep). documented in this encounter [facility] 06-14-2025 History of Presen t illness Narrative Images from the original note were not included. MARCO ANTONIO SOTO MD , FACS, [facility] BARIATRIC AND METABOLIC SURGERY [facility] OFFICE VISIT 06/14/2025 PATIENT: Lexis Nguyen DATE OF : 1985 HISTORY OF PRESENT ILLNESS Chief Complaint: Post-operative visit Lexis Nguyen is a 40 y.o. female [facility] and for a post-operative visit following diagnosotic lap and EDIL. The patient has had a good recovery and denies any major problems following the operation. The symptoms have resolved. The incisional pain has been under control. The patient reports some expected constipation and headache . The patient denies any problems with nausea, emesis, chest pain, shortness of breath or bowel function. Review of Systems Constitutional: Negative for chills and fever. HENT: Negative for sore throat and trouble swallowing. Respiratory: Negative for chest tightness and shortness of breath. Cardiovascular: Negative for chest pain and leg swelling. Gastrointestinal: Negative for abdominal distention, diarrhea, nausea and vomiting. Genitourinary: Negative for decreased urine volume. Skin: Negative for rash. Neurological: Negative for dizziness, syncope and weakness. Psychiatric/Behavioral: Negative for confusion. The patient is not nervous/anxious. Drinks mostly water, no juices, rare edward campbell for upset stomach. PAST HISTORIES Medical History[1] Surgical History[2] PHYSICAL EXAM BP 106/77 Pulse 83 Temp 36 C (96.8 F) Resp 16 Ht 5' 3.5 (1.613 m) Wt 231 lb 9.6 oz (105 kg) BMI 40.38 kg/m Physical Exam Constitutional: Appearance: Normal appearance. HENT: Head: Normocephalic and atraumatic. Cardiovascular: Rate and Rhythm: Normal rate and regular rhythm. Pulses: Normal pulses. Heart sounds: Normal heart sounds. Pulmonary: Effort: Pulmonary effort is normal. Breath sounds: Normal breath sounds. Abdominal: Palpations: Abdomen is soft. There is no mass. Hernia: No hernia is present. Skin: General: Skin is warm and dry. Neurological: General: No focal deficit present. Mental Status: She is alert and oriented to person, place, and time. LABORATORY STUDIES AND IMAGING Pathology Results: ASSESSMENT Encounter Diagnoses Name Primary? Intestinal malabsorption, unspecified type Yes Gastroesophageal reflux disease, unspecified whether esophagitis present H/O gastric bypass Deficiency of multiple nutrient elements Morbid obesity with BMI of 40.0-44.9, adult (HCC) PLAN Ok for return to work or regular activity in - n/a Follow up with me on a PRN basis Continue regular follow up for health maintenance evaluations with PCP. 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 Pain in similar area as prior to procedure. Advised, no obvious indication for recurrence. Continue to monitor, call for any changes. ATTESTATION I reviewed with the patient the details of the proposed operation. The risks benefits and options were discussed. Risks included but were not limited to bleeding, infection, damage to other surrounding organs, cardio-pulmonary complications related to anesthesia, conversion from laparoscopic to and open procedure, the need for reoperative or endoscopic therapy, the potential for prolonged mechanical ventilation, and . All questions were fully answered to the patient's satisfaction and they wish to proceed with surgical intervention. O ANTONIO SOTO MD, [facility], [facility] Rn Eligibility - [facility] Weight Management [employer] [employer] [facility] and Bariatric Surgery [facility] Patient Care Team: Fede Davis MD as PCP - General (Family Medicine) Marco Antonio Soto MD as Surgeon (General Surgery) [1] Past Medical History: Diagnosis Date Abdominal pain Anxiety Arthritis Back pain Blurred vision Depression GERD (gastroesophageal reflux disease) H/O gastric bypass 02/07/2025 [facility] 2013 [place] Hip pain Intestinal malabsorption 02/07/2025 Knee pain Seizures (HCC) SOB (shortness of breath) [2] Past Surgical History: Procedure Laterality Date APPENDECTOMY BRAIN SURGERY CHOLECYSTECTOMY CLAVICLE SURGERY FRACTURE SURGERY GALLBLADDER SURGERY GASTRIC BYPASS 01/23/2014 [facility] - Dr Sumeet Mar [place]. HYSTERECTOMY OTHER SURGICAL HISTORY 05/20/2025 LAPAROSCOPY, DIAGNOSTI TONSILLECTOMY documented in this encounter [facility] 06-08-2025 Note [facility] 06-08-2025 Hospital Discharg e instructions KRISHAN Jin CNP - 06/08/2025 2:24 PM EDT NO RESTRICTIONS KRISHAN Jin CNP - 06/08/2025 2:24 PM EDT DIET TOLERATED documented in this encounter [facility] 06-08-2025 Note Referral placed for second opinion for intractable abdominal pain please forward inpatient notes and scopes. Thanks [facility] 06-08-2025 Telephone encounter Note Referral placed for second opinion for intractable abdominal pain please forward inpatient notes and scopes. Thanks [facility] 06-08-2025 Miscellaneous Notes Referral placed for second opinion for intractable abdominal pain please forward inpatient notes and scopes. Thanks documented in this encounter [facility] 06-08-2025 Note Formatting of this n ote might be different from the original. Care Management Progress Note Short Medical why still here: monitoring diet tolerability; surgery signed off; possible dc home today. TCC to follow Planned Discharge Disposition: Home or Self Care Barriers/Today we still Wait: Clinical stability, Other (comment) Length of Stay (Days): 0 GMLOS: No GMLOS Documented .. [facility] 06-08-2025 Note Formatting of this n ote might be different from the original. Care Management Progress Note Short Medical why still here: monitoring diet tolerability; surgery signed off; possible dc home today. TCC to follow Planned Discharge Disposition: Home or Self Care Barriers/Today we still Wait: Clinical stability, Other (comment) Length of Stay (Days): 0 GMLOS: No GMLOS Documented .. [facility] 06-08-2025 Miscellaneous Notes Care Management Progress Note Short Medical why still here: monitoring diet tolerability; surgery signed off; possible dc home today. TCC to follow Planned Discharge Disposition: Home or Self Care Barriers/Today we still Wait: Clinical stability, Other (comment) Length of Stay (Days): 0 GMLOS: No GMLOS Documented .. Problem: Pain - Adult Goal: Verbalizes/displays adequate comfort level or baseline comfort level Outcome: Progressing Problem: Pain - Adult Goal: Verbalizes/displays adequate comfort level or baseline comfort level Outcome: Progressing Flowsheets (Taken 06/08/2025 0509) Verbalizes/displays adequate comfort level or baseline comfort level: Encourage patient to monitor pain and request assistance Assess pain using appropriate pain scale Administer analgesics based on type and severity of pain and evaluate response Problem: Safety - Adult Goal: Free from fall injury Outcome: Progressing Flowsheets (Taken 06/08/2025 0509) Free from fall injury: Instruct family/caregiver on patient safety Problem: Discharge Planning Goal: Discharge to home or other facility with appropriate resources Outcome: Progressing Flowsheets (Taken 06/08/2025 0509) Discharge to home or other facility with appropriate resources: Identify barriers to discharge with patient and caregiver Problem: Chronic Conditions and Co-morbidities Goal: Patient's chronic conditions and co-morbidity symptoms are monitored and maintained or improved Outcome: Progressing Seen in the morning while doing SBFT. Nausea is less but still has abdominal pain . Doesn't think Ozempic causing her symptoms because helped her intracranial pressure. Will follow. Problem: Pain - Adult Goal: Verbalizes/displays adequate comfort level or baseline comfort level Outcome: Progressing Problem: Pain - Adult Goal: Verbalizes/displays adequate comfort level or baseline comfort level Outcome: Progressing Problem: Safety - Adult Goal: Free from fall injury Outcome: Progressing Problem: Discharge Planning Goal: Discharge to home or other facility with appropriate resources Outcome: Progressing Problem: Chronic Conditions and Co-morbidities Goal: Patient's chronic conditions and co-morbidity symptoms are monitored and maintained or improved Outcome: Progressing Problem: Pain - Adult Goal: Verbalizes/displays adequate comfort level or baseline comfort level Outcome: Progressing Care Management Progress Note Short Medical why still here: KUB this morning; GI recommendations Planned Discharge Disposition: Home or Self Care Barriers/Today we still Wait: Clinical stability, Optical Dispenser recommendations (comment) Length of Stay (Days): 0 GMLOS: No GMLOS Documented .. documented in this encounter [facility] 06-08-2025 Note Problem: Pain - Adul t Goal: Verbalizes/displays adequate comfort level or baseline comfort level Outcome: Progressing [facility] 06-08-2025 Plan of care note Problem: Pain - Adult Goal: Verbalizes/displays adequate comfort level or baseline comfort level Outcome: Progressing [facility] 06-08-2025 Nurse Note Patient stated that she feels up for eating some solid food has not had any nausea or vomiting for me jared, spoke with SNAKER TRACTOR DRIVER Zhao. Order already in to advance patient's diet as tolerated. Stated it was fine advanced patient's diet to regular diet GI bland patient stated she is vegetarian too but knows what she can and can't eat [facility] 06-08-2025 Nurse Note Patient stated that she feels up for eating some solid food has not had any nausea or vomiting for me jared, spoke with SNAKER TRACTOR DRIVER Zhao. Order already in to advance patient's diet as tolerated. Stated it was fine advanced patient's diet to regular diet GI bland patient stated she is vegetarian too but knows what she can and can't eat documented in this encounter [facility] 06-08-2025 Plan of care note Problem: Pain - Adult Goal: Verbalizes/displays adequate comfort level or baseline comfort level Outcome: Progressing Flowsheets (Taken 06/08/2025 0509) Verbalizes/displays adequate comfort level or baseline comfort level: Encourage patient to monitor pain and request assistance Assess pain using appropriate pain scale Administer analgesics based on type and severity of pain and evaluate response Problem: Safety - Adult Goal: Free from fall injury Outcome: Progressing Flowsheets (Taken 06/08/2025 0509) Free from fall injury: Instruct family/caregiver on patient safety Problem: Discharge Planning Goal: Discharge to home or other facility with appropriate resources Outcome: Progressing Flowsheets (Taken 06/08/2025 0509) Discharge to home or other facility with appropriate resources: Identify barriers to discharge with patient and caregiver Problem: Chronic Conditions and Co-morbidities Goal: Patient's chronic conditions and co-morbidity symptoms are monitored and maintained or improved Outcome: Progressing [facility] 06-07-2025 Plan of care note Seen in the morning while doing SBFT. Nausea is less but still has abdominal pain . Doesn't think Ozempic causing her symptoms because helped her intracranial pressure. Will follow. [facility] Work Phone: 06-07-2025 History of Presen t illness Narrative Hospitalist Progress Note 06/07/2025 Subjective: Admit Date: 06/05/2025 PCP: Fede Davis MD Room#: J-G112/[id number] A BRIEF HOSPITAL COURSE: Lexis is a 40 y.o. female with past medical history below who presents with chief complaint listed above. Patient initially had a diagnostic laparoscopic for small bowel obstruction with lysis of adhesions on 05/20/2025. Patient states that approximately a week after she presented with for abdominal pain. Patient presented to the ED on 05/26 with abdominal pain and was sent home and then presented again on 05/27 and at that time was admitted. During that hospital stay patient was able to tolerate regular diet and was treated conservatively. Patient states that this time she had epigastric discomfort that started at approximately 6 PM last night and has since progressively gotten worse and is around the same type and level of pain that she had when she initially had her adhesions. Due to the increasing pain patient presented to the ER. ER workup was significant for unremarkable CMP, troponin negative at less than 3 x 2, lactic acid of 1, unremarkable CBC, unremarkable urinalysis, and CT abdomen pelvis showing no acute intra-abdominal disease process and no evidence of bowel obstruction. General surgery saw patient in the ED and will have the patient get a KUB in the morning to evaluate oral contrast transit. Patient currently complains of abdominal pain and nausea patient denies any fevers, chills, chest tightness, chest pain, shortness of breath, weakness, fatigue, or changes to bowel habits. Patient states that she has been going and having a bowel movement daily. Will admit for further evaluation and management. 06/06/2025: GI and General Surgery following. KUB was ordered which showed residual contrast media within large bowel. Some small and large bowel distention present of uncertain significance. No convincing free air. Interval History: Patient was seen and evaluated at bedside. Had another KUB and small bowel follow through ordered today. Started patient on clear liquid diet. Continues to endorse epigastric abdominal pain but denies any nausea or vomiting. No overnight issues. Case and plan discussed with patient and bedside nurse. All questions answered. NPO diet with enteral medications 24HR INTAKE/OUTPUT: Intake/Output Summary (Last 24 hours) at 06/07/2025 1253 Last data filed at 06/07/2025 1203 Gross per 24 hour Intake 2031.66 ml Output -- Net 2031.66 ml Past Medical History: Medical History[1] LABS: CBC: Recent Labs 07/113406/06/255606/07/25 0110 WBC 6.4 6.1 4.6 RBC 4.59 4.04 3.74* HGB 14.3 12.1 11.5* HCT 43.0 37.9 35.8 MCV 93.7 93.8 95.7 RDW 13.3 13.3 13.4 PLT 233 194 185 BMP: Recent Labs 06/05/25113406/06/255606/07/25 011 NA 138 140 138 K 4.1 3.8 3.8 CL 103 106 106 CO2 28 26 24 BUN 7* 7* 5* CREATININE 0.77 0.69 0.65 GLUCOSE 88 80 68* CALCIUM 9.0 8.0* 7.8* ANIONGAP 7 8 8 LIVER PROFILE: Recent Labs 06/05/25113406/06/255606/07/25 011 AST 20 28 29 ALT 19 17 21 BILITOT 0.4 0.5 0.5 ALKPHOS 95 79 79 PROT 7.2 5.5* 5.5* PT/INR: No results for input(s): PROTIME, INR in the last 72 hours. CARDIAC ENZYMES: No results for input(s): TROPONINI in the last 72 hours. Procalcitonin: No results found for: PROCAL COVID-19 PCR: No results for input(s): COVID19 in the last 72 hours. Objective: Vitals: BP 135/88 Pulse 76 Temp (!) 35.7 C (96.3 F) (Temporal) Resp 18 SpO2 100% Pulse Ox: SpO2 Av.5 % Min: 97 % Max: 100 % Supplemental O2: Physical Exam Constitutional: Appearance: Normal appearance. Cardiovascular: Rate and Rhythm: Normal rate and regular rhythm. Pulses: Normal pulses. Heart sounds: Normal heart sounds. No murmur heard. Pulmonary: Effort: Pulmonary effort is normal. No respiratory distress. Breath sounds: Normal breath sounds. Abdominal: General: Bowel sounds are normal. Palpations: Abdomen is soft. Tenderness: There is abdominal tenderness in the epigastric area. Musculoskeletal: General: Normal range of motion. Skin: General: Skin is warm and dry. Neurological: General: No focal deficit present. Mental Status: She is alert and oriented to person, place, and time. Psychiatric: Mood and Affect: Mood normal. Behavior: Behavior normal. Medications: Scheduled PRN Scheduled Meds[2] PRN Meds[3] Continuous Continuous Meds[4] Assessment Data: (CAT1) Reviewed 1 notes from different specialty or health system (each=1). (CAT1) Reviewed 1 labs/studies ordered by another provider not previously counted (each=1, panels count as 1). (CAT1) Ordered 2 new labs and/or studies (each=1, panels count as 1). (LOW: 2x CAT1 or independent historian MOD: 3x CAT1 or 1x CAT3 EXTENSIVE: 3x CAT1 and 1x CAT3) Acute, acute on chronic, unstable/uncontrolled chronic problems/diagnoses: 1. Intractable abdominal pain 2. Nausea, vomiting, improved -continue current pain medication therapy and antiemetics as needed -clear liquid diet and advance as tolerated -KUB ordered this morning showed air distended small and large bowel suggestive of adynamic ileus. SBFT showed dilated loops of small bowel of uncertain etiology with transit time of 2.5 hours. -General Surgery following, appreciate recommendations -GI consulted, advised patient to follow-up outpatient for more thorough workup and/or second opinion Stable chronic problems affecting care, new non-acute diagnoses: History of gastric bypass in 2013 Recent diagnostic laparoscopy for small bowel obstruction with lysis of adhesions on 05/20/2025 Seizure disorder Anxiety Depression GERD Plan As a result of the above findings & factors, the following mgmt was pursued: - see above for plan of care - continue home medication therapy for chronic conditions - advance diet as tolerated - am labs, replace lytes prn - PT/OT/CM/SW - delirium precautions: increase activity and limit nighttime disturbances - DVT prophylaxis: encourage ambulation Complexity: Risk: Advance Directive: Full Code Anticipated Discharge - Date - 06/08/2025 - Location - Home - Pending the following - improvement of symptoms Total time spent (which include face to face and non face to face encounters) : 35 minutes Toxic drug monitoring/narrow therapeutic index drug monitoring : # Drug name : oxycodone, morphine, Ativan # Route administered : oral, IV # Method of monitoring : LOC, HR, RR Extended Emergency Contact Information Primary Emergency Contact: Joslyn Nguyen Relation: Spouse Thermostat Repairer needed? No Dayna Bro APRN - [employer] Division of Hospitalist Medicine Acute care [facility] [1] Past Medical History: Diagnosis Date Abdominal pain Anxiety Arthritis Back pain Blurred vision Depression GERD (gastroesophageal reflux disease) H/O gastric bypass 02/07/2025 LRYGB 2013 [place] Hip pain Intestinal malabsorption 02/07/2025 Knee pain Seizures (HCC) SOB (shortness of breath) [2] acetaminophen, 1,000 mg, Oral, q6h amitriptyline, 50 mg, Oral, Nightly ARIPiprazole, 10 mg, Oral, Daily DULoxetine, 60 mg, Oral, BID lacosamide, 200 mg, Oral, BID sodium chloride 0.9%, 10 mL, IntraVENous, 2 times per day thiamine (Vitamin B1) 500 mg in sodium chloride 0.9 % 50 mL IVPB, 500 mg, IntraVENous, TID [3] PRN medications: LORazepam, morphine sulfate OR morphine sulfate, naloxone (Narcan) 0.4 mg in 0.9% sodium chloride 10 mL syringe, ondansetron ODT OR ondansetron, oxyCODONE OR oxyCODONE, sodium chloride, sodium chloride 0.9% [4] sodium chloride, 100 mL/hr, Last Rate: 100 mL/hr (06/07/25 1203) Nutrition rescreen completed. Patient referred to the Dietitian. Patient is NPO/CL > 3 days. BRANDON Ortiz Hospitalist Progress Note 06/06/2025 Subjective: Admit Date: 06/05/2025 PCP: Fede Davis MD Room#: [id number]/[id number] A BRIEF HOSPITAL COURSE: Lexis is a 40 y.o. female with past medical history below who presents with chief complaint listed above. Patient initially had a diagnostic laparoscopic for small bowel obstruction with lysis of adhesions on 05/20/2025. Patient states that approximately a week after she presented with for abdominal pain. Patient presented to the ED on 05/26 with abdominal pain and was sent home and then presented again on 05/27 and at that time was admitted. During that hospital stay patient was able to tolerate regular diet and was treated conservatively. Patient states that this time she had epigastric discomfort that started at approximately 6 PM last night and has since progressively gotten worse and is around the same type and level of pain that she had when she initially had her adhesions. Due to the increasing pain patient presented to the ER. ER workup was significant for unremarkable CMP, troponin negative at less than 3 x 2, lactic acid of 1, unremarkable CBC, unremarkable urinalysis, and CT abdomen pelvis showing no acute intra-abdominal disease process and no evidence of bowel obstruction. General surgery saw patient in the ED and will have the patient get a KUB in the morning to evaluate oral contrast transit. Patient currently complains of abdominal pain and nausea patient denies any fevers, chills, chest tightness, chest pain, shortness of breath, weakness, fatigue, or changes to bowel habits. Patient states that she has been going and having a bowel movement daily. Will admit for further evaluation and management. Interval History: Patient was seen and evaluated at bedside. Continues to endorse epigastric abdominal pain and nausea. Describes the pain as continuous, sharp and stabbing feeling through to her back. Feels too nauseous to try and eat. No overnight issues. Case and plan discussed with patient and bedside nurse. All questions answered. Adult diet Clear liquid 24HR INTAKE/OUTPUT: No intake or output data in the 24 hours ending 06/06/25 1054 Past Medical History: Medical History[1] LABS: CBC: Recent Labs 06/05/255 06/06/25 0057 WBC 6.4 6.1 RBC 4.59 4.04 HGB 14.3 12.1 HCT 43.0 37.9 MCV 93.7 93.8 RDW 13.3 13.3 PLT 233 194 BMP: Recent Labs 06/05/25113406/06/25 005 NA 138 140 K 4.1 3.8 CL 103 106 CO2 28 26 BUN 7* 7* CREATININE 0.77 0.69 GLUCOSE 88 80 CALCIUM 9.0 8.0* ANIONGAP 7 8 LIVER PROFILE: Recent Labs 06/05/255 06/06/25 0057 AST 20 28 ALT 19 17 BILITOT 0.4 0.5 ALKPHOS 95 79 PROT 7.2 5.5* PT/INR: No results for input(s): PROTIME, INR in the last 72 hours. CARDIAC ENZYMES: No results for input(s): TROPONINI in the last 72 hours. Procalcitonin: No results found for: PROCAL COVID-19 PCR: No results for input(s): COVID19 in the last 72 hours. Objective: Vitals: BP 117/84 Pulse 79 Temp 36.3 C (97.4 F) (Temporal) Resp 16 SpO2 98% Pulse Ox: SpO2 Av.4 % Min: 98 % Max: 100 % Supplemental O2: Physical Exam Constitutional: Appearance: Normal appearance. Cardiovascular: Rate and Rhythm: Normal rate and regular rhythm. Pulses: Normal pulses. Heart sounds: Normal heart sounds. No murmur heard. Pulmonary: Effort: Pulmonary effort is normal. No respiratory distress. Breath sounds: Normal breath sounds. Abdominal: General: Bowel sounds are normal. Palpations: Abdomen is soft. Tenderness: There is abdominal tenderness in the epigastric area. Musculoskeletal: General: Normal range of motion. Skin: General: Skin is warm and dry. Neurological: General: No focal deficit present. Mental Status: She is alert and oriented to person, place, and time. Psychiatric: Mood and Affect: Mood normal. Medications: Scheduled PRN Scheduled Meds[2] PRN Meds[3] Continuous Continuous Meds[4] Assessment Data: (CAT1) Reviewed 2 notes from different specialty or health system (each=1). (CAT1) Reviewed 3 or more labs/studies ordered by another provider not previously counted (each=1, panels count as 1). (CAT1) Ordered 2 new labs and/or studies (each=1, panels count as 1). (LOW: 2x CAT1 or independent historian MOD: 3x CAT1 or 1x CAT3 EXTENSIVE: 3x CAT1 and 1x CAT3) Acute, acute on chronic, unstable/uncontrolled chronic problems/diagnoses: 1. Intractable abdominal pain 2. Nausea, vomiting -continue current pain medication therapy and antiemetics as needed -clear liquid diet and advance as tolerated -KUB ordered this morning showed residual contrast media within large bowel. Some small and large bowel distention present of uncertain significance. No convincing free air. -General Surgery was consulted and no acute surgical intervention is recommended. Appreciate recommendations -GI consulted, appreciate recommendations Stable chronic problems affecting care, new non-acute diagnoses: History of gastric bypass in 2013 Recent diagnostic laparoscopy for small bowel obstruction with lysis of adhesions on 05/20/2025 Seizure disorder Anxiety Depression GERD Plan As a result of the above findings & factors, the following mgmt was pursued: - see above for plan of care - continue home medication therapy for chronic conditions - continue clear liquid diet for now - continue IVFs - am labs, replace lytes prn - PT/OT/CM/SW - delirium precautions: increase activity and limit nighttime disturbances - DVT prophylaxis: encourage ambulation Complexity: Risk: Advance Directive: Full Code Anticipated Discharge - Date - 06/07/2025 - Location - Home - Pending the following - improvement of symptoms Total time spent (which include face to face and non face to face encounters) : 35 minutes Toxic drug monitoring/narrow therapeutic index drug monitoring : # Drug name : oxycodone, morphine, Ativan # Route administered : oral, IV # Method of monitoring : LOC, HR, RR Extended Emergency Contact Information Primary Emergency Contact: Joslyn Nguyen Relation: Spouse Thermostat Repairer needed? No Dayna Bro APRN - [employer] Division of Hospitalist Medicine Acute care [facility] [1] Past Medical History: Diagnosis Date Abdominal pain Anxiety Arthritis Back pain Blurred vision Depression GERD (gastroesophageal reflux disease) H/O gastric bypass 02/07/2025 LRYGB 2013 [place] Hip pain Intestinal malabsorption 02/07/2025 Knee pain Seizures (HCC) SOB (shortness of breath) [2] acetaminophen, 1,000 mg, Oral, q6h amitriptyline, 50 mg, Oral, Nightly ARIPiprazole, 10 mg, Oral, Daily DULoxetine, 60 mg, Oral, BID lacosamide, 200 mg, Oral, BID sodium chloride 0.9%, 10 mL, IntraVENous, 2 times per day thiamine (Vitamin B1) 500 mg in sodium chloride 0.9 % 50 mL IVPB, 500 mg, IntraVENous, TID [3] PRN medications: LORazepam, morphine sulfate OR morphine sulfate, naloxone (Narcan) 0.4 mg in 0.9% sodium chloride 10 mL syringe, naloxone, ondansetron ODT OR ondansetron, oxyCODONE OR oxyCODONE, sodium chloride, sodium chloride 0.9% [4] sodium chloride, 100 mL/hr, Last Rate: 100 mL/hr (06/06/25 0952) documented in this encounter [facility] 06-07-2025 Note Problem: Pain - Adul t Goal: Verbalizes/displays adequate comfort level or baseline comfort level Outcome: Progressing [facility] 06-07-2025 Plan of care note Problem: Pain - Adult Goal: Verbalizes/displays adequate comfort level or baseline comfort level Outcome: Progressing [facility] 06-06-2025 Plan of care note Problem: Pain - Adult Goal: Verbalizes/displays adequate comfort level or baseline comfort level Outcome: Progressing Problem: Safety - Adult Goal: Free from fall injury Outcome: Progressing Problem: Discharge Planning Goal: Discharge to home or other facility with appropriate resources Outcome: Progressing Problem: Chronic Conditions and Co-morbidities Goal: Patient's chronic conditions and co-morbidity symptoms are monitored and maintained or improved Outcome: Progressing [facility] 06-06-2025 Telephone encounter Note Error. [facility] [employer] Phone: 06-06-2025 Miscellaneous Notes Error. documented in this encounter [facility] 06-06-2025 Telephone encounter Note OP follow up for abdominal pain. Had EGD with surgery, needs colonoscopy (prior attempted and aborted due to poor prep). [facility] [employer] Work Phone: 06-06-2025 Miscellaneous Notes OP follow up for abdominal pain. Had EGD with surgery, needs colonoscopy (prior attempted and aborted due to poor prep). documented in this encounter [facility] 06-06-2025 Note Problem: Pain - Adul t Goal: Verbalizes/displays adequate comfort level or baseline comfort level Outcome: Progressing [facility] 06-06-2025 Plan of care note Problem: Pain - Adult Goal: Verbalizes/displays adequate comfort level or baseline comfort level Outcome: Progressing [facility] 06-06-2025 Note Formatting of this n ote might be different from the original. Care Management Progress Note Short Medical why still here: KUB this morning; GI recommendations Planned Discharge Disposition: Home or Self Care Barriers/Today we still Wait: Clinical stability, Optical Dispenser recommendations (comment) Length of Stay (Days): 0 GMLOS: No GMLOS Documented .. [facility] 06-06-2025 Note Formatting of this n ote might be different from the original. Care Management Progress Note Short Medical why still here: KUB this morning; GI recommendations Planned Discharge Disposition: Home or Self Care Barriers/Today we still Wait: Clinical stability, Optical Dispenser recommendations (comment) Length of Stay (Days): 0 GMLOS: No GMLOS Documented .. [facility] 06-06-2025 Consult note Associated Order (s): IP CONSULT TO GI Images from the original note were not included. Department of Internal Medicine Gastroenterology Attending Consult Note Reason for Consult: The patient was seen in consultation at the request of Dr. Akash Pabon re: Ongoing unexplained abdominal pain s/p dx lap with EDIL with relief of obstruction, CT no surgical patholoy. CHIEF COMPLAINT: Abdominal pain History Obtained From: Patient HISTORY OF PRESENT ILLNESS: The patient is a 40 y.o. female with significant past medical history of GERD, Krystal-en-Y Gastric Bypass in 2015, appendectomy, cholecystectomy, hysterectomy, SBO s/p dx lap with adhesiolysis in April 2025 who presents with worsening epigastric abdominal pain since two weeks ago. Patient states that she began having a stabbing epigastric pain a few months ago with associated nausea. Patient seen at [facility] and on 05/20/25 had diagnostic laparotomy for adhesiolysis after being found to have small bowel obstruction. She states that she initially felt better, but her abdominal pain returned a few days later. Patient states that the pain is similar in nature to the pain she had prior to her laparotomy, but worse in severity. She was seen at [facility] for this pain on 05/26 and 05/27 as well, with workups being unremarkable. She reports one episode of non-bloody non-bilious vomiting last night. Patient also reports one episode of bright red blood per rectum. She states that her appetite has been poor due to her pain, but she has still been able to tolerate solids and fluids. Patient denies constipation, stating that she goes regularly every morning with solid formed stool. Upon arrival to the ED patient's vitals were within normal limits. Labs largely unremarkable. CT abdomen/pelvis shows no acte intraabdominal disease processes and no evidence of bowel obstruction. Abdominal X-ray showed some residual contrast in the large bowel with some small & large bowel distension present. Allergies: Nortriptyline, Nsaids, Other, Gabapentin, and Penicillins Current Medications: Current Medications[1] Past Medical History: Active Ambulatory Problems Diagnosis Date Noted H/O gastric bypass 02/07/2025 Intestinal malabsorption 02/07/2025 GERD (gastroesophageal reflux disease) Back pain Intracranial hypertension 02/16/2025 Abdominal pain, epigastric 05/20/2025 Abdominal pain 05/27/2025 Resolved Ambulatory Problems Diagnosis Date Noted No Resolved Ambulatory Problems Past Medical History: Diagnosis Date Anxiety Arthritis Blurred vision Depression Hip pain Knee pain Seizures (HCC) SOB (shortness of breath) Past Surgical History: Social History Socioeconomic History Marital status: Spouse name: Not on file Number of children: Not on file Years of education: Not on file Highest education level: Not on file Occupational History Not on file Tobacco Use Smoking status: Never Smokeless tobacco: Never Substance and Sexual Activity Alcohol use: Not Currently Drug use: Yes Types: Marijuana Comment: medical marijuana Sexual activity: Yes Partners: Male control/protection: Female Sterilization Comment: Hysterectomy Other Topics Concern Not on file Social History Narrative Not on file Social Drivers of Health Financial Resource Strain: Low Risk (03/26/2025) Overall Financial Resource Strain (CARDIA) Difficulty of Paying Living Expenses: Not very hard Food Insecurity: No Food Insecurity (05/27/2025) Hunger Vital Sign Worried About Running Out of Food in the Last Year: Never true Ran Out of Food in the Last Year: Never true Transportation Needs: No Transportation Needs (06/05/2025) PRAPARE - Transportation Lack of Transportation (Medical): No Lack of Transportation (Non-Medical): No Recent Concern: Transportation Needs - Unmet Transportation Needs (03/26/2025) PRAPARE - Transportation Lack of Transportation (Medical): Yes Lack of Transportation (Non-Medical): No Physical Activity: Insufficiently Active (03/26/2025) Exercise Vital Sign Days of Exercise per Week: 2 days Minutes of Exercise per Session: 30 min Stress: No Stress Concern Present (03/26/2025) [employer] - Occupational Stress Questionnaire Feeling of Stress : Only a little Social Connections: Moderately Isolated (03/26/2025) Social Connection and Isolation Panel [NHANES] Frequency of Communication with Friends and Family: More than three times a week Frequency of Social Gatherings with Friends and Family: Once a week Attends Cheondoism Services: Never Active Member of Clubs or Organizations: No Attends Club or Organization Meetings: Never Marital Status: Intimate Partner Violence: Not At Risk (06/05/2025) Humiliation, Afraid, Rape, and Kick questionnaire Fear of Current or Ex-Partner: No Emotionally Abused: No Physically Abused: No Sexually Abused: No Housing Stability: Low Risk (06/05/2025) Housing Stability Vital Sign Unable to Pay for Housing in the Last Year: No Number of Times Moved in the Last Year: 0 Homeless in the Last Year: No Family History: Family History[2] No family history colon or stomach cancer. Social History: TOBACCO: reports that she has never smoked. She has never used smokeless tobacco. ETOH: reports that she does not currently use alcohol. DRUGS: reports current drug use. Drug: Marijuana. REVIEW OF SYSTEMS: No fever, chills, or sweats. Diminished appetite. Normal weight. No PERALTA, visual disturbance, eye pain, jaundice, sore throat or mouth ulcers. No skin rash or itching. No CP, SOB, COMER, cough or wheeze. No urinary frequency, urgency, hematuria, or dysuria. No myalgia, arthralgia, or joint swelling. No weakness, numbness, or confusion. GI per HPI. No polyuria, polydipsia, heat or cold intolerance. PHYSICAL EXAM: VS: BP 117/84 Pulse 79 Temp 36.3 C (97.4 F) (Temporal) Resp 16 SpO2 98% There is no height or weight on file to calculate BMI. Constitutional: No acute distress. Well-nourished. Well hydrated Head/Eyes: Pupils are equal and round; Conjunctiva are not injected; Sclera are non-icteric. ENT: Ears/nose without external abnormalities. Oral mucosa is pink and moist. Neck: No JVD. No carotid bruits; No thyromegaly. Respiratory: Clear to auscultation bilaterally without any added sounds. Effort is normal Heart: Regular, Normal S1 and S2. No murmur; No added sounds. Abdomen: Normal BS, soft, mild TTP to RUQ, LUQ, and epigastrium, non-distended; no hepatomegaly. No rebound or guarding. Digital Rectal Exam: No masses or hemorrhoids noted. Light brown feces noted. Web Content Specialist: Carlito Jarquin, RN Extremities/Skin: No LE edema; Skin warm to touch and well perfused. Musculoskeletal: Head - normocephalic. Neck - supple Psychiatric: AAO x 3, answers appropriately, normal mood, normal affect. Non-focal. DATA: Recent blood work and relevant radiologic and endoscopic studies were reviewed and discussed with the patient. CBC: Recent Labs 06/05/25 1135 06/06/25 0057 WBC 6.4 6.1 RBC 4.59 4.04 HGB 14.3 12.1 HCT 43.0 37.9 MCV 93.7 93.8 MCH 31.2 30.0 MCHC 33.3 31.9 RDW 13.3 13.3 PLT 233 194 MPV 10.1 10.5 CMP: Recent Labs 06/05/25 1135 06/06/25 0057 NA 138 140 K 4.1 3.8 CL 103 106 CO2 28 26 BUN 7* 7* CREATININE 0.77 0.69 GLUCOSE 88 80 CALCIUM 9.0 8.0* PROT 7.2 5.5* BILITOT 0.4 0.5 ALKPHOS 95 79 AST 20 28 ALT 19 17 PT/INR: No results for input(s): INR in the last 72 hours. Radiologic Review Abdominal X-ray 06/06/25: Residual contrast noted within large bowel. Some small and large bowel distension present. CT Abdomen/Pelvis 06/05/25: No acute intraabdominal disease processes noted, with no evidence of bowel obstruction. Endoscopic Review Patient reports prior colonoscopy in November 2024 at [facility] which was not completed due to poor prep. Unable to find report upon chart review. IMPRESSION/RECOMMENDATIONS: #Abdominal Pain #Nausea #Vomiting #Bright Red Blood Per Rectum #History of Krystal-en-Y Gastric Bypass #History of Appendectomy, Cholecystectomy, Hysterectomy #S/p diagnostic laparotomy with adhesiolysis -Patient labs and imaging largely unremarkable. GET unremarkable as well. -Will test for porphyria with urine porphyrins -Order gastric emptying study -Advised patient to follow-up outpatient for more thorough workup and/or second opinion -Last EGD in February 2025 unremarkable. Last colonoscopy in November 2024 unable to be completed due to poor bowel prep. -Primary team to continue pain control [1] Current Facility-Administered Medications: acetaminophen (Tylenol) tablet 1,000 mg, 1,000 mg, Oral, q6h, Mateo Pabon MD amitriptyline (Elavil) tablet 50 mg, 50 mg, Oral, Nightly, Lonny Churchill NP, 50 mg at 06/05/25 231 ARIPiprazole (Abilify) tablet 10 mg, 10 mg, Oral, Daily, Lonny Churchill NP DULoxetine (Cymbalta) DR capsule 60 mg, 60 mg, Oral, BID, Lonny Churchill NP, 60 mg at 06/05/252311 lacosamide (Vimpat) tablet 200 mg, 200 mg, Oral, BID, Lonny Pederson ANDREA Churchill, 200 mg at 06/05/25 2312 LORazepam (Ativan) tablet 0.5 mg, 0.5 mg, Oral, Daily PRN, Lonny Churchill NP morphine injection 2 mg, 2 mg, IntraVENous, q4h PRN, 2 mg at 06/06/25 0549 OR morphine injection 4 mg, 4 mg, IntraVENous, q4h PRN, Lonny Churchill NP naloxone (Narcan) 0.4 mg in 0.9% sodium chloride 10 mL syringe, , IntraVENous, PRN, Lonny Churchill NP naloxone (Narcan) injection 0.4 mg, 0.4 mg, IntraVENous, q5 min PRN, Al Murillo MD ondansetron ODT (Zofran-ODT) disintegrating tablet 4 mg, 4 mg, Oral, q8h PRN, 4 mg at 06/05/252010 OR ondansetron (Zofran) injection 4 mg, 4 mg, IntraVENous, q6h PRN, Dayna Collinss, SALES PROFESSIONAL [employer]INGUAL - SENIOR SOUS [employer]F oxyCODONE (Roxicodone) immediate release tablet 5 mg, 5 mg, Oral, q4h PRN OR oxyCODONE (Roxicodone) immediate release tablet 10 mg, 10 mg, Oral, q4h PRN, Lonny Dacia Churchill NP, 10 mg at 06/06/25 0547 sodium chloride 0.9 % infusion, 5-250 mL/hr, IntraVENous, PRN, Dayna Yatras, SALES PROFESSIONAL [employer] - S[employer]IOR [employer] sodium chloride 0.9 % infusion, 100 mL/hr, IntraVENous, Continuous, Dayna Yatras, SALES PROFESSIONAL [employer]UAL - SENIOR SOUS [employer]F, Last Rate: 100 mL/hr at 06/05/252, 100 mL/hr at 06/05/25 2312 sodium chloride 0.9% (NS) flush 10 mL, 10 mL, IntraVENous, 2 times per day, Dayna Yatras, SALES PROFESSIONAL [employer]UAL - SENIOR [employer] sodium chloride 0.9% (NS) flush 10 mL, 10 mL, IntraVENous, PRN, Dayna Yatras, SALES PROFESSIONAL [employer]UAL - S[employer]IOR [employer] thiamine (Vitamin B1) 500 mg in sodium chloride 0.9 % 50 mL IVPB, 500 mg, IntraVENous, TID, Mateo Pabon MD, Stopped at 06/06/25 0013 [2] Family History Problem Relation Name Age of Onset Obesity Paternal Grandmother Diabetes Paternal Grandmother Hypertension Paternal Grandmother Obesity Maternal Grandmother Hypertension Maternal Grandmother Obesity Maternal Grandfather Diabetes Maternal Grandfather Hypertension Maternal Grandfather Heart disease Maternal Grandfather Arthritis Father Raymond Cancer Father Raymond Depression Father Raymond Diabetes Father Raymond Hypertension Father Raymond Mental illness Father Raymond Stroke Father Raymond Obesity Father Raymond Asthma Mother Sarah COPD Mother Sarah Obesity Mother Sarah Hypertension Mother Sarah Obesity Brother Hypertension Brother Breast cancer Neg Hx Ovarian cancer Neg Hx Cosigned by Gisell Eng MD at 06/06/2025 11:41 PM EDT Associated attestation - Gisell Eng MD - 06/06/2025 11:41 PM EDT Attending Supervising Physician s Attestation Statement I have personally performed and participated in all the above services (including HPI and PE). I have reviewed the case with Advance Practice Provider (PILAR)/ resident / student, and agreed with the PILAR's / resident / student assessment and plan as above. I have following additions or modifications: I did substantive portion of medical decision making. Seen in CDU and d/w patient and significant other. Has multiple abdominal surgeries. On Ozempic now but not on Metfromin. N/V could be related to that but pain could be due to chronic pain syndrome vs IBS other uncommon causes like Porphyria . Gastroparesis is in DD. Check lab and Gastric empty study . Offered second opinion at or PSYCHIATRIC if symptoms persisted . . Gisell Eng MD Gastroenterology [facility] Work Phone: 06-06-2025 Consult note Associated Order (s): IP CONSULT TO GI Images from the original note were not included. Department of Internal Medicine Gastroenterology Attending Consult Note Reason for Consult: The patient was seen in consultation at the request of Dr. Akash Pabon re: Ongoing unexplained abdominal pain s/p dx lap with EDIL with relief of obstruction, CT no surgical patholoy. CHIEF COMPLAINT: Abdominal pain History Obtained From: Patient HISTORY OF PRESENT ILLNESS: The patient is a 40 y.o. female with significant past medical history of GERD, Krystal-en-Y Gastric Bypass in 2015, appendectomy, cholecystectomy, hysterectomy, SBO s/p dx lap with adhesiolysis in April 2025 who presents with worsening epigastric abdominal pain since two weeks ago. Patient states that she began having a stabbing epigastric pain a few months ago with associated nausea. Patient seen at [facility] and on 05/20/25 had diagnostic laparotomy for adhesiolysis after being found to have small bowel obstruction. She states that she initially felt better, but her abdominal pain returned a few days later. Patient states that the pain is similar in nature to the pain she had prior to her laparotomy, but worse in severity. She was seen at [facility] for this pain on 05/26 and 05/27 as well, with workups being unremarkable. She reports one episode of non-bloody non-bilious vomiting last night. Patient also reports one episode of bright red blood per rectum. She states that her appetite has been poor due to her pain, but she has still been able to tolerate solids and fluids. Patient denies constipation, stating that she goes regularly every morning with solid formed stool. Upon arrival to the ED patient's vitals were within normal limits. Labs largely unremarkable. CT abdomen/pelvis shows no acte intraabdominal disease processes and no evidence of bowel obstruction. Abdominal X-ray showed some residual contrast in the large bowel with some small & large bowel distension present. Allergies: Nortriptyline, Nsaids, Other, Gabapentin, and Penicillins Current Medications: Current Medications[1] Past Medical History: Active Ambulatory Problems Diagnosis Date Noted H/O gastric bypass 02/07/2025 Intestinal malabsorption 02/07/2025 GERD (gastroesophageal reflux disease) Back pain Intracranial hypertension 02/16/2025 Abdominal pain, epigastric 05/20/2025 Abdominal pain 05/27/2025 Resolved Ambulatory Problems Diagnosis Date Noted No Resolved Ambulatory Problems Past Medical History: Diagnosis Date Anxiety Arthritis Blurred vision Depression Hip pain Knee pain Seizures (HCC) SOB (shortness of breath) Past Surgical History: Social History Socioeconomic History Marital status: Spouse name: Not on file Number of children: Not on file Years of education: Not on file Highest education level: Not on file Occupational History Not on file Tobacco Use Smoking status: Never Smokeless tobacco: Never Substance and Sexual Activity Alcohol use: Not Currently Drug use: Yes Types: Marijuana Comment: medical marijuana Sexual activity: Yes Partners: Male control/protection: Female Sterilization Comment: Hysterectomy Other Topics Concern Not on file Social History Narrative Not on file Social Drivers of Health Financial Resource Strain: Low Risk (03/26/2025) Overall Financial Resource Strain (CARDIA) Difficulty of Paying Living Expenses: Not very hard Food Insecurity: No Food Insecurity (05/27/2025) Hunger Vital Sign Worried About Running Out of Food in the Last Year: Never true Ran Out of Food in the Last Year: Never true Transportation Needs: No Transportation Needs (06/05/2025) PRAPARE - Transportation Lack of Transportation (Medical): No Lack of Transportation (Non-Medical): No Recent Concern: Transportation Needs - Unmet Transportation Needs (03/26/2025) PRAPARE - Transportation Lack of Transportation (Medical): Yes Lack of Transportation (Non-Medical): No Physical Activity: Insufficiently Active (03/26/2025) Exercise Vital Sign Days of Exercise per Week: 2 days Minutes of Exercise per Session: 30 min Stress: No Stress Concern Present (03/26/2025) [employer] - Occupational Stress Questionnaire Feeling of Stress : Only a little Social Connections: Moderately Isolated (03/26/2025) Social Connection and Isolation Panel [NHANES] Frequency of Communication with Friends and Family: More than three times a week Frequency of Social Gatherings with Friends and Family: Once a week Attends Cheondoism Services: Never Active Member of Clubs or Organizations: No Attends Club or Organization Meetings: Never Marital Status: Intimate Partner Violence: Not At Risk (06/05/2025) Humiliation, Afraid, Rape, and Kick questionnaire Fear of Current or Ex-Partner: No Emotionally Abused: No Physically Abused: No Sexually Abused: No Housing Stability: Low Risk (06/05/2025) Housing Stability Vital Sign Unable to Pay for Housing in the Last Year: No Number of Times Moved in the Last Year: 0 Homeless in the Last Year: No Family History: Family History[2] No family history colon or stomach cancer. Social History: TOBACCO: reports that she has never smoked. She has never used smokeless tobacco. ETOH: reports that she does not currently use alcohol. DRUGS: reports current drug use. Drug: Marijuana. REVIEW OF SYSTEMS: No fever, chills, or sweats. Diminished appetite. Normal weight. No PERALTA, visual disturbance, eye pain, jaundice, sore throat or mouth ulcers. No skin rash or itching. No CP, SOB, COMER, cough or wheeze. No urinary frequency, urgency, hematuria, or dysuria. No myalgia, arthralgia, or joint swelling. No weakness, numbness, or confusion. GI per HPI. No polyuria, polydipsia, heat or cold intolerance. PHYSICAL EXAM: VS: BP 117/84 Pulse 79 Temp 36.3 C (97.4 F) (Temporal) Resp 16 SpO2 98% There is no height or weight on file to calculate BMI. Constitutional: No acute distress. Well-nourished. Well hydrated Head/Eyes: Pupils are equal and round; Conjunctiva are not injected; Sclera are non-icteric. ENT: Ears/nose without external abnormalities. Oral mucosa is pink and moist. Neck: No JVD. No carotid bruits; No thyromegaly. Respiratory: Clear to auscultation bilaterally without any added sounds. Effort is normal Heart: Regular, Normal S1 and S2. No murmur; No added sounds. Abdomen: Normal BS, soft, mild TTP to RUQ, LUQ, and epigastrium, non-distended; no hepatomegaly. No rebound or guarding. Digital Rectal Exam: No masses or hemorrhoids noted. Light brown feces noted. Web Content Specialist: Carlito Jarquin, RN Extremities/Skin: No LE edema; Skin warm to touch and well perfused. Musculoskeletal: Head - normocephalic. Neck - supple Psychiatric: AAO x 3, answers appropriately, normal mood, normal affect. Non-focal. DATA: Recent blood work and relevant radiologic and endoscopic studies were reviewed and discussed with the patient. CBC: Recent Labs 06/05/25 1135 06/06/25 0057 WBC 6.4 6.1 RBC 4.59 4.04 HGB 14.3 12.1 HCT 43.0 37.9 MCV 93.7 93.8 MCH 31.2 30.0 MCHC 33.3 31.9 RDW 13.3 13.3 PLT 233 194 MPV 10.1 10.5 CMP: Recent Labs 06/05/25 1135 06/06/25 0057 NA 138 140 K 4.1 3.8 CL 103 106 CO2 28 26 BUN 7* 7* CREATININE 0.77 0.69 GLUCOSE 88 80 CALCIUM 9.0 8.0* PROT 7.2 5.5* BILITOT 0.4 0.5 ALKPHOS 95 79 AST 20 28 ALT 19 17 PT/INR: No results for input(s): INR in the last 72 hours. Radiologic Review Abdominal X-ray 06/06/25: Residual contrast noted within large bowel. Some small and large bowel distension present. CT Abdomen/Pelvis 06/05/25: No acute intraabdominal disease processes noted, with no evidence of bowel obstruction. Endoscopic Review Patient reports prior colonoscopy in November 2024 at [facility] which was not completed due to poor prep. Unable to find report upon chart review. IMPRESSION/RECOMMENDATIONS: #Abdominal Pain #Nausea #Vomiting #Bright Red Blood Per Rectum #History of Krystal-en-Y Gastric Bypass #History of Appendectomy, Cholecystectomy, Hysterectomy #S/p diagnostic laparotomy with adhesiolysis -Patient labs and imaging largely unremarkable. GET unremarkable as well. -Will test for porphyria with urine porphyrins -Order gastric emptying study -Advised patient to follow-up outpatient for more thorough workup and/or second opinion -Last EGD in February 2025 unremarkable. Last colonoscopy in November 2024 unable to be completed due to poor bowel prep. -Primary team to continue pain control [1] Current Facility-Administered Medications: acetaminophen (Tylenol) tablet 1,000 mg, 1,000 mg, Oral, q6h, Mateo Pabon MD amitriptyline (Elavil) tablet 50 mg, 50 mg, Oral, Nightly, Lonny Churchill NP, 50 mg at 06/05/252311 ARIPiprazole (Abilify) tablet 10 mg, 10 mg, Oral, Daily, Lonny Churchill NP DULoxetine (Cymbalta) DR capsule 60 mg, 60 mg, Oral, BID, Lonny Churchill NP, 60 mg at 07/15/25 2312 lacosamide (Vimpat) tablet 200 mg, 200 mg, Oral, BID, Lonny Dacia Churchill NP, 200 mg at 06/05/252311 LORazepam (Ativan) tablet 0.5 mg, 0.5 mg, Oral, Daily PRN, Lonny Churchill NP morphine injection 2 mg, 2 mg, IntraVENous, q4h PRN, 2 mg at 06/06/25 0549 OR morphine injection 4 mg, 4 mg, IntraVENous, q4h PRN, Lonny Churchill NP naloxone (Narcan) 0.4 mg in 0.9% sodium chloride 10 mL syringe, , IntraVENous, PRN, Lonny Churchill NP naloxone (Narcan) injection 0.4 mg, 0.4 mg, IntraVENous, q5 min PRN, Al Murillo MD ondansetron ODT (Zofran-ODT) disintegrating tablet 4 mg, 4 mg, Oral, q8h PRN, 4 mg at 06/05/252010 OR ondansetron (Zofran) injection 4 mg, 4 mg, IntraVENous, q6h PRN, Dayna Collinss [employer] oxyCODONE (Roxicodone) immediate release tablet 5 mg, 5 mg, Oral, q4h PRN OR oxyCODONE (Roxicodone) immediate release tablet 10 mg, 10 mg, Oral, q4h PRN, Lonny Churchill NP, 10 mg at 06/06/25 0547 sodium chloride 0.9 % infusion, 5-250 mL/hr, IntraVENous, PRN, Dayna Yatras, [employer] sodium chloride 0.9 % infusion, 100 mL/hr, IntraVENous, Continuous, Dayna Birminghamtras, [employer], Last Rate: 100 mL/hr at 06/05/252311, 100 mL/hr at 06/05/252311 sodium chloride 0.9% (NS) flush 10 mL, 10 mL, IntraVENous, 2 times per day, Dayna Valenciatras, [employer] sodium chloride 0.9% (NS) flush 10 mL, 10 mL, IntraVENous, PRN, Dayna Valenciatras, [employer] thiamine (Vitamin B1) 500 mg in sodium chloride 0.9 % 50 mL IVPB, 500 mg, IntraVENous, TID, Mateo Pabon MD, Stopped at 06/06/25 0013 [2] Family History Problem Relation Name Age of Onset Obesity Paternal Grandmother Diabetes Paternal Grandmother Hypertension Paternal Grandmother Obesity Maternal Grandmother Hypertension Maternal Grandmother Obesity Maternal Grandfather Diabetes Maternal Grandfather Hypertension Maternal Grandfather Heart disease Maternal Grandfather Arthritis Father Raymond Cancer Father Raymond Depression Father Raymond Diabetes Father Raymond Hypertension Father Raymond Mental illness Father Raymond Stroke Father Raymond Obesity Father Raymond Asthma Mother Sarah COPD Mother Sarah Obesity Mother Sarah Hypertension Mother Sarah Obesity Brother Hypertension Brother Breast cancer Neg Hx Ovarian cancer Neg Hx Cosigned by Gisell Eng MD at 06/06/2025 11:41 PM EDT Associated attestation - Gisell Eng MD - 06/06/2025 11:41 PM EDT Attending Supervising Physician s Attestation Statement I have personally performed and participated in all the above services (including HPI and PE). I have reviewed the case with Advance Practice Provider (PILAR)/ resident / student, and agreed with the PILAR's / resident / student assessment and plan as above. I have following additions or modifications: I did substantive portion of medical decision making. Seen in CDU and d/w patient and significant other. Has multiple abdominal surgeries. On Ozempic now but not on Metfromin. N/V could be related to that but pain could be due to chronic pain syndrome vs IBS other uncommon causes like Porphyria . Gastroparesis is in DD. Check lab and Gastric empty study . Offered second opinion at or PSYCHIATRIC if symptoms persisted . . Gisell Eng MD Gastroenterology documented in this encounter [facility] 06-05-2025 Note [facility] Transport at chair side pt has even non labored respirations axox4 gcs 15 and shows no signs of distress at this time. [facility] 06-05-2025 Emergency department Note Transport at chair side pt has even non labored respirations axox4 gcs 15 and shows no signs of distress at this time. EMERGENCY DEPARTMENT ENCOUNTER Pt Name: Lexis Nguyen Birthdate 1985 Date of evaluation: 06/05/2025 ED Provider: Aster Villela PA-C CHIEF COMPLAINT Chief Complaint Patient presents with Abdominal Pain Center abdominal pain with vomiting since last night. Recent abdominal sx for lesions 2 weeks ago, pain feels the same HISTORY OF PRESENT ILLNESS (Location/Symptom, Timing/Onset, Context/Setting, Quality, Duration, Modifying Factors, Severity) Note limiting factors. I wore appropriate PPE for the entirety of this encounter. HPI Lexis Nguyen is a 40 y.o. female with PMH significant for GERD with history of laparoscopic Krystal-en-Y gastric bypass in 2013 in [place] who is status post hysterectomy, appendectomy, and cholecystectomy who presents to the emergency department with her for evaluation of abdominal pain, nausea, and vomiting. Patient was seen recently on 05-[address] at that time was concerning for possible ileus, and patient had diagnostic laparoscopy which ended up showing partial bowel obstruction. Patient had an adhesion unwrapped from her bowels at that time. States since then however, she has been dealing with persistently worsening upper abdominal/epigastric abdominal pain. States even drinking water is causing her significant pain, and she has been dealing with intractable nausea and vomiting. Is still passing gas and having regular bowel movements. Has not appreciated any blood in her stool or emesis. No fevers or chills. No urinary symptoms. No associated chest pain, but does state that she has had some shortness of breath, and feels like she cannot take a big deep breath in. She is unsure if this is secondary to her pain. No history of DVT or PE. Nursing Notes were reviewed. Limitations to history: None Outside historians: None REVIEW OF SYSTEMS Review of Systems 14 systems reviewed, positives and pertinent negatives as per HPI. All other systems were reviewed and are negative. PAST MEDICAL HISTORY Medical History[1] SURGICAL HISTORY Surgical History[2] CURRENT MEDICATIONS Previous Medications AMITRIPTYLINE (ELAVIL) 50 MG TABLET Take 50 mg by mouth Nightly. ARIPIPRAZOLE (ABILIFY) 10 MG TABLET Take 10 mg by mouth daily. CALCIUM CITRATE 250 MG TABLET Take 1 tablet by mouth daily. DULOXETINE (CYMBALTA) [address] CAPSULE Take 60 mg by mouth 2 times daily. LACOSAMIDE (VIMPAT) 200 MG TABLET TABLET Take 200 mg by mouth 2 times daily. LORAZEPAM (ATIVAN) 0.5 MG TABLET Take 0.5 mg by mouth Daily as needed for anxiety. METFORMIN (GLUCOPHAGE) 500 MG TABLET Take 500 mg by mouth daily. SEMAGLUTIDE, 2 MG/DOSE, SC Inject 1.7 mg under the skin 1 (one) time per week. SENNA-DOCUSATE SODIUM (SENOKOT-S) 8.6-50 MG TABLET Take 2 tablets by mouth daily for 14 days. Take 2 tablets daily while taking prescribed pain medication TRAMADOL (ULTRAM) 50 MG TABLET Take 50 mg by mouth every 12 hours as needed for severe pain (7-10) or moderate pain (4-6). ALLERGIES Nortriptyline, Nsaids, Other, Gabapentin, and Penicillins FAMILY HISTORY Family History[3] SOCIAL HISTORY Social History[4] SCREENINGS PHYSICAL EXAM ED Triage Vitals [06/05/25 1017] Temp Heart Rate Resp BP 36.7 C (98.1 F) 94 18 (!) 135/92 SpO2 Temp Source Heart Rate Source Patient Position 100 % Temporal Monitor -- BP Location FiO2 (%) -- -- Physical Exam Vitals and nursing note reviewed. Constitutional: General: She is not in acute distress. Appearance: She is well-developed. Comments: Appears uncomfortable though nontoxic. HENT: Head: Normocephalic and atraumatic. Eyes: Conjunctiva/sclera: Conjunctivae normal. Cardiovascular: Rate and Rhythm: Normal rate and regular rhythm. Heart sounds: No murmur heard. Pulmonary: Effort: Pulmonary effort is normal. No respiratory distress. Breath sounds: Normal breath sounds. Abdominal: Palpations: Abdomen is soft. Comments: Generalized upper abdominal tenderness, though most notably in the epigastric region without guarding or rebound. No overlying skin changes, abrasions, or vesicular type lesions. Bowel sounds are active. Surgical incision sites appear well Musculoskeletal: General: No swelling. Cervical back: Neck supple. Comments: No lower extremity edema or erythema. No calf tenderness. No pain with plantar dorsiflexion. Distal pulses and sensation are intact and symmetric bilaterally. Skin is warm well-perfused. Compartments are soft. Skin: General: Skin is warm and dry. Capillary Refill: Capillary refill takes less than 2 seconds. Neurological: Mental Status: She is alert. Psychiatric: Mood and Affect: Mood normal. DIAGNOSTIC RESULTS RADIOLOGY (Per Emergency Physician): Interpretation per the Radiologist below, if available at the time of this note: CT abdomen pelvis w contrast Final Result Status post Krystal-en-Y gastric bypass. No acute intra-abdominal disease process. No evidence of bowel obstruction. Report Dictated on Electronically Signed By: Harish Whitman MD Electronically Signed Date/Time: 06/05/2025 2:53 PM EDT XR abdomen 1 view (Results Pending) LABS: Labs Reviewed BASIC METABOLIC PANEL - Abnormal Result Value SODIUM 138 POTASSIUM 4.1 CHLORIDE 103 CARBON DIOXIDE 28 UREA NITROGEN 7 (*) CREATININE 0.77 GLUCOSE 88 CALCIUM 9.0 ANION GAP 7 eGFR >90.0 COMPLETE URINALYSIS WITH REFLEX TO CULTURE - Abnormal Color, Urine Light Yellow Clarity, Urine Clear pH, Urine 6.5 Leukocytes, Urine Negative Nitrite, Urine Negative Protein, Urine Negative Glucose, Urine Normal Bilirubin, Urine Negative Ketones, Urine 10 (*) Urobilinogen, Urine Normal Blood, Urine Negative SPECIFIC GRAVITY OF URINE (NUMERIC) 1.010 Narrative: A specimen with <=10 WBC is not consistent with inflammation. This specimen will not reflex to a urine culture. CBC WITH AUTO DIFFERENTIAL - Normal Auto WBC 6.4 RBC 4.59 Hemoglobin 14.3 Hematocrit 43.0 MCV 93.7 MCH 31.2 MCHC 33.3 RDW 13.3 Platelets 233 MPV 10.1 nRBC 0.0 Neutrophils Relative 68.0 Lymphocytes Relative 23.6 Monocytes Relative 6.7 Eosinophils Relative 0.8 Basophils Relative 0.6 Immature Grans % 0.3 Neutrophils Absolute 4.4 Lymphocytes Absolute 1.5 Monocytes Absolute 0.4 Eosinophils Absolute 0.1 Basophils Absolute 0.0 Immature Grans Absolute 0.0 HEPATIC FUNCTION PANEL - Normal BILIRUBIN, TOTAL 0.4 BILIRUBIN, DIRECT 0.1 ALKALINE PHOSPHATASE 95 AST (SGOT) 20 ALT 19 ALBUMIN 4.1 TOTAL PROTEIN 7.2 LIPASE - Normal LIPASE 23 D-DIMER,QUANTITATIVE - Normal D-DIMER, INNOVANCE 0.24 Narrative: Innovance D-Dimer values of <0.50 mg/L FEU can be used in combination with a pre-test probability model (e.g. Well's) to exclude pulmonary embolism (PE) disease, as well as an aid in the diagnosis of deep vein thrombosis (DVT). HIGH SENSITIVITY TROPONIN, SERIAL BASELINE - Normal Troponin HS Serial Baseline <3 HIGH SENSITIVITY TROPONIN, SERIAL, SECOND TEST - Normal 2h Troponin HS (Serial 2nd Troponin) <3 LACTIC ACID WITH REFLEX - Normal LACTIC ACID 1.0 COMPREHENSIVE METABOLIC PANEL WITH MG REFLEX Narrative: The following orders were created for panel order Comprehensive Metabolic Panel w/ Mg Reflex. Procedure Abnormality Status --------- ------ Comprehensive metabolic ...[[id number]] Please view results for these tests on the individual orders. CBC WITH AUTO DIFFERENTIAL COMPREHENSIVE METABOLIC PANEL All other labs were within normal range or not returned as of this dictation. EMERGENCY DEPARTMENT COURSE and DIFFERENTIAL DIAGNOSIS/MDM: Vitals: Vitals: 06/05/25 1017 06/05/25 1325 06/05/25 1524 BP: (!) 135/92 (!) 134/90 (!) 133/91 Pulse: 94 88 89 Resp: 18 20 22 Temp: 36.7 C (98.1 F) TempSrc: Temporal SpO2: 100% 99% 100% Medications thiamine (Vitamin B1) 500 mg in sodium chloride 0.9 % 50 mL IVPB (500 mg IntraVENous New Bag 06/05/25 1800) sodium chloride 0.9% (NS) flush 10 mL (has no administration in time range) sodium chloride 0.9% (NS) flush 10 mL (has no administration in time range) sodium chloride 0.9 % infusion (has no administration in time range) acetaminophen (Tylenol) tablet 650 mg (has no administration in time range) Or acetaminophen (Tylenol) suppository 650 mg (has no administration in time range) ondansetron ODT (Zofran-ODT) disintegrating tablet 4 mg (has no administration in time range) Or ondansetron (Zofran) injection 4 mg (has no administration in time range) sodium chloride 0.9 % infusion (has no administration in time range) sodium chloride 0.9 % bolus 1,000 mL (0 mL IntraVENous Stopped 06/05/25 1311) ondansetron (Zofran) injection 4 mg (4 mg IntraVENous Given 06/05/25 1140) morphine injection 4 mg (4 mg IntraVENous Given 06/05/25 1139) diatrizoate meglumine-sodium (Gastrografin) 66-10 % solution 30 mL (30 mL Oral Given 06/05/25 1319) HYDROmorphone (Dilaudid) injection 0.5 mg (0.5 mg IntraVENous Given 06/05/25 1318) promethazine (Phenergan) injection 6.25 mg (6.25 mg IntraMUSCular Given 06/05/25 1319) iopamidol (Isovue-370) 76 % injection 75 mL (75 mL IntraVENous Given 06/05/25 1433) HYDROmorphone (Dilaudid) injection 0.5 mg (0.5 mg IntraVENous Given 06/05/25 1523) morphine injection 2 mg (2 mg IntraVENous Given 06/05/25 1907) ED care was supervised by Dr. Maya who independently examined and evaluated the patient. Please see their attestation note for further details. Nursing notes and medical records reviewed. In external chart review, patient was seen here for similar pain on 05-20. Imaging at that time showed mild gaseous distention of bowel loops with evidence of bariatric surgery. Ileus is most likely. Patient subsequently had diagnostic laparoscopy, with release of partial small bowel obstruction. Differential considerations included postoperative defect, bowel obstruction, constipation, impaction, PE, ACS, pneumonia, fluid electrolyte abnormality, metabolic disturbance Initial medical management includes Zofran, morphine, 1 L fluid bolus Initial workup includes EKG, CT abdomen and pelvis, CBC, BMP, hepatic function panel, D-dimer, lipase, troponin, UA Upon reassessment patient remains nontoxic. Reporting persistent, ongoing abdominal pain, as well as nausea. Patient initially stated she would be unable to drink the Gastrografin due to her nausea. Discussed with patient it was crucial that she drink the Gastrografin, to evaluate for possible surgical defects. After dose of Dilaudid and Phenergan, patient was agreeable to drinking the Gastrografin. Lab workup results CBC without leukocytosis or acute anemia. BMP without fluid electrolyte abnormality or NGUYỄN. Hepatic function panel unremarkable. Lipase is normal troponin less than 3 x 2. Dimer normal. Urinalysis unremarkable. Imaging results per radiology; CT AP: IMPRESSION: Status post Krystal-en-Y gastric bypass. No acute intra-abdominal disease process. No evidence of bowel obstruction. After CT resulted, did consult general surgery. See consult note for full detail. In the interim, patient did require additional doses of pain medication. No acute surgical intervention, but given intractable abdominal pain, with nausea, vomiting, and extensive surgical history within the abdomen, they did recommend CDU admission for observation for GI consultation, and will continue to follow while admitted. Discussed this plan with the patient she was comfortable and agreeable with admission. Paged CDU and spoke with Grace who accepted the patient for admission. Admission orders placed. Patient moved from ED to CDU in stable condition with stable vital signs. FINAL IMPRESSION 1. Intractable abdominal pain 2. Intractable nausea and vomiting 3. History of gastric bypass DISPOSITION Observation 06/05/2025 06:13:30 PM Shared decisoin making preformed. (Comment: Please note this report has been produced using speech recognition software and may contain errors related to that system including errors in grammar, punctuation, and spelling, as well as words and phrases that may be inappropriate. If there are any questions or concerns please feel free to contact the dictating provider for clarification.) Aster Villela PA-C (electronically signed) Emergency Medicine Provider [1] Past Medical History: Diagnosis Date Abdominal pain Anxiety Arthritis Back pain Blurred vision Depression GERD (gastroesophageal reflux disease) H/O gastric bypass 02/07/2025 [facility] 2013 [place] Hip pain Intestinal malabsorption 02/07/2025 Knee pain Seizures (HCC) SOB (shortness of breath) [2] Past Surgical History: Procedure Laterality Date APPENDECTOMY BRAIN SURGERY CLAVICLE SURGERY FRACTURE SURGERY GALLBLADDER SURGERY GASTRIC BYPASS 01/23/2014 [facility] - Dr Sumeet [place]. HYSTERECTOMY OTHER SURGICAL HISTORY 05/20/2025 LAPAROSCOPY, DIAGNOSTI TONSILLECTOMY [3] Family History Problem Relation Name Age of Onset Obesity Paternal Grandmother Diabetes Paternal Grandmother Hypertension Paternal Grandmother Obesity Maternal Grandmother Hypertension Maternal Grandmother Obesity Maternal Grandfather Diabetes Maternal Grandfather Hypertension Maternal Grandfather Heart disease Maternal Grandfather Arthritis Father Raymond Cancer Father Raymond Depression Father Raymond Diabetes Father Raymond Hypertension Father Raymond Mental illness Father Raymond Stroke Father Raymond Obesity Father Raymond Asthma Mother Sarah COPD Mother Sarah Obesity Mother Sarah Hypertension Mother Sarah Obesity Brother Hypertension Brother Breast cancer Neg Hx Ovarian cancer Neg Hx [4] Social History Socioeconomic History Marital status: Tobacco Use Smoking status: Never Smokeless tobacco: Never Substance and Sexual Activity Alcohol use: Not Currently Drug use: Yes Types: Marijuana Comment: medical marijuana Sexual activity: Yes Partners: Male control/protection: Female Sterilization Comment: Hysterectomy Social Drivers of Health Financial Resource Strain: Low Risk (03/26/2025) Overall Financial Resource Strain (CARDIA) Difficulty of Paying Living Expenses: Not very hard Food Insecurity: No Food Insecurity (05/27/2025) Hunger Vital Sign Worried About Running Out of Food in the Last Year: Never true Ran Out of Food in the Last Year: Never true Transportation Needs: No Transportation Needs (05/27/2025) PRAPARE - Transportation Lack of Transportation (Medical): No Lack of Transportation (Non-Medical): No Recent Concern: Transportation Needs - Unmet Transportation Needs (03/26/2025) PRAPARE - Transportation Lack of Transportation (Medical): Yes Lack of Transportation (Non-Medical): No Physical Activity: Insufficiently Active (03/26/2025) Exercise Vital Sign Days of Exercise per Week: 2 days Minutes of Exercise per Session: 30 min Stress: No Stress Concern Present (03/26/2025) [place] [employer] - Occupational Stress Questionnaire Feeling of Stress : Only a little Social Connections: Moderately Isolated (03/26/2025) Social Connection and Isolation Panel [NHANES] Frequency of Communication with Friends and Family: More than three times a week Frequency of Social Gatherings with Friends and Family: Once a week Attends Cheondoism Services: Never Active Member of Clubs or Organizations: No Attends Club or Organization Meetings: Never Marital Status: Intimate Partner Violence: Not At Risk (05/27/2025) Humiliation, Afraid, Rape, and Kick questionnaire Fear of Current or Ex-Partner: No Emotionally Abused: No Physically Abused: No Sexually Abused: No Housing Stability: Low Risk (05/27/2025) Housing Stability Vital Sign Unable to Pay for Housing in the Last Year: No Number of Times Moved in the Last Year: 0 Homeless in the Last Year: No Aster Villela PA-C 06/05/252000 Cosigned by Tiffany Ruiz DO at 06/07/2025 8:26 PM EDT Emergency Department Encounter [facility] CDU Patient: Lexis Nguyen : 1985 Date of Evaluation: 06/05/2025 ED Supervising Physician: Tiffany Ruiz DO I personally evaluated Lexis Nguyen and made/approved the management plan and take responsibility for the patient management. This will serve as my Supervisory note and shared attestation. I did perform a substantive portion of the visit including all aspects of the Medical Decision Making. I wore appropriate PPE for the entirety of this encounter. In brief, Lexis Nguyen is a 40 y.o. that presents to the emergency department for abdominal pain with nausea and vomiting. Patient has a history of laparoscopic Krystal-en-Y gastric bypass in 2013, hysterectomy appendectomy cholecystectomy. Patient was seen on 05/20/2025 for epigastric abdominal pain at the time CT was concerning for possible ileus patient had diagnostic laparoscopy which ended up showing partial bowel obstruction had removal of adhesions at that time. Patient states she has been unable to tolerate p.o. for the past 2 days. Focused exam: Vital signs afebrile no acute distress eyes PERRL unremarkable pharynx RRR clear lungs without resp distress abdomen tender to palpation upper abdomen without peritoneal findings no CVA tenderness no focal deficits alert and oriented Brief ED course/MDM: 40-year-old female present to the ED for abdominal pain and nausea and vomiting detailed above. Exam as above. CT imaging without acute intra-abdominal process status post Krystal-en-Y grossly unremarkable lab work. Surgery consulted surgery has seen and evaluated patient no acute surgical intervention but given intractable abdominal pain with nausea and vomiting and extensive surgical history recommended observation stay for GI consultation and will also follow patient while admitted. Patient admitted to CDU. Patient in agreement with plan. Diagnostics interpreted by me: I personally discussed the patient's management with other clinicians: All diagnostic, treatment, and disposition decisions were made by myself in conjunction with the PILAR. For all further details of the patient's emergency department visit, please see their documentation. (Comment: Please note this report has been produced using speech recognition software and may contain errors related to that system including errors in grammar, punctuation, and spelling, as well as words and phrases that may be inappropriate. If there are any questions or concerns please feel free to contact the dictating provider for clarification.) Tiffany Ruiz DO [employer] Tiffany Ruiz DO 06/07/252031 documented in this encounter [facility] 06-05-2025 Telephone encounter Note Noted, thanks. [facility] 06-05-2025 Miscellaneous Notes Noted, thanks. Noted, thank you. Will follow. TFU-AD. [facility] 01/23/2014 [place] DIAG LAP W/EDIL 05/20/25 AD.-lap EDIL w release of partial SBO Last OV-02/09/25 w SNAKER TRACTOR DRIVER, next tomorrow w SNAK[facility] TRACTOR DRIVER Pt noted to have called and left message that she had emergent surgery w AGD 2 weeks ago. States pain has returned and is unable to keep food or fluids down. States has appt tomorrow and unsure if she is to wait or should go to the ER now. Call to pt. States she is in extreme amount of pain, located in same spot as prior to surgery. States just as painful as prior to surgery and she is unable to keep food or fluids down. States she is having difficulty breathing. Pt is speaking in complete sentences and does not sound as if she is struggling to breathe. Pt was informed that if she is having difficulty breathing, she should go to the ER. Pt states she is already en route to [facility] ER. Will make SNAKER TRACTOR DRIVER aware. Pt to call w any further questions or concerns. SNAKER TRACTOR DRIVER-RNCM-FYI documented in this encounter [facility] 06-05-2025 Telephone encounter Note Patient's called to cancel his 's appointment today. He is taking her to the ER. Didn't specify which ER he was taking her too but said he will call the office back to reschedule his 's appointment once she is feeling better. [facility] 06-05-2025 Telephone encounter Note Noted, thank you. Will follow. [facility] 06-05-2025 Miscellaneous Notes Patient's called to cancel his 's appointment today. He is taking her to the ER. Didn't specify which ER he was taking her too but said he will call the office back to reschedule his 's appointment once she is feeling better. documented in this encounter [facility] 06-05-2025 Physician Emergency department Note EMERGENCY DEPARTMENT ENCOUNTER Pt Name: Lexis Nguyen Birthdate 1985 Date of evaluation: 06/05/2025 ED Provider: Aster Villela PA-C CHIEF COMPLAINT Chief Complaint Patient presents with Abdominal Pain Center abdominal pain with vomiting since last night. Recent abdominal sx for lesions 2 weeks ago, pain feels the same HISTORY OF PRESENT ILLNESS (Location/Symptom, Timing/Onset, Context/Setting, Quality, Duration, Modifying Factors, Severity) Note limiting factors. I wore appropriate PPE for the entirety of this encounter. HPI Lexis Nguyen is a 40 y.o. female with PMH significant for GERD with history of laparoscopic Krystal-en-Y gastric bypass in 2013 in [place] who is status post hysterectomy, appendectomy, and cholecystectomy who presents to the emergency department with her for evaluation of abdominal pain, nausea, and vomiting. Patient was seen recently on 05-[address] at that time was concerning for possible ileus, and patient had diagnostic laparoscopy which ended up showing partial bowel obstruction. Patient had an adhesion unwrapped from her bowels at that time. States since then however, she has been dealing with persistently worsening upper abdominal/epigastric abdominal pain. States even drinking water is causing her significant pain, and she has been dealing with intractable nausea and vomiting. Is still passing gas and having regular bowel movements. Has not appreciated any blood in her stool or emesis. No fevers or chills. No urinary symptoms. No associated chest pain, but does state that she has had some shortness of breath, and feels like she cannot take a big deep breath in. She is unsure if this is secondary to her pain. No history of DVT or PE. Nursing Notes were reviewed. Limitations to history: None Outside historians: None REVIEW OF SYSTEMS Review of Systems 14 systems reviewed, positives and pertinent negatives as per HPI. All other systems were reviewed and are negative. PAST MEDICAL HISTORY Medical History[1] SURGICAL HISTORY Surgical History[2] CURRENT MEDICATIONS Previous Medications AMITRIPTYLINE (ELAVIL) 50 MG TABLET Take 50 mg by mouth Nightly. ARIPIPRAZOLE (ABILIFY) 10 MG TABLET Take 10 mg by mouth daily. CALCIUM CITRATE 250 MG TABLET Take 1 tablet by mouth daily. DULOXETINE (CYMBALTA) [address] CAPSULE Take 60 mg by mouth 2 times daily. LACOSAMIDE (VIMPAT) 200 MG TABLET TABLET Take 200 mg by mouth 2 times daily. LORAZEPAM (ATIVAN) 0.5 MG TABLET Take 0.5 mg by mouth Daily as needed for anxiety. METFORMIN (GLUCOPHAGE) 500 MG TABLET Take 500 mg by mouth daily. SEMAGLUTIDE, 2 MG/DOSE, SC Inject 1.7 mg under the skin 1 (one) time per week. SENNA-DOCUSATE SODIUM (SENOKOT-S) 8.6-50 MG TABLET Take 2 tablets by mouth daily for 14 days. Take 2 tablets daily while taking prescribed pain medication TRAMADOL (ULTRAM) 50 MG TABLET Take 50 mg by mouth every 12 hours as needed for severe pain (7-10) or moderate pain (4-6). ALLERGIES Nortriptyline, Nsaids, Other, Gabapentin, and Penicillins FAMILY HISTORY Family History[3] SOCIAL HISTORY Social History[4] SCREENINGS PHYSICAL EXAM ED Triage Vitals [06/05/25 1017] Temp Heart Rate Resp BP 36.7 C (98.1 F) 94 18 (!) 135/92 SpO2 Temp Source Heart Rate Source Patient Position 100 % Temporal Monitor -- BP Location FiO2 (%) -- -- Physical Exam Vitals and nursing note reviewed. Constitutional: General: She is not in acute distress. Appearance: She is well-developed. Comments: Appears uncomfortable though nontoxic. HENT: Head: Normocephalic and atraumatic. Eyes: Conjunctiva/sclera: Conjunctivae normal. Cardiovascular: Rate and Rhythm: Normal rate and regular rhythm. Heart sounds: No murmur heard. Pulmonary: Effort: Pulmonary effort is normal. No respiratory distress. Breath sounds: Normal breath sounds. Abdominal: Palpations: Abdomen is soft. Comments: Generalized upper abdominal tenderness, though most notably in the epigastric region without guarding or rebound. No overlying skin changes, abrasions, or vesicular type lesions. Bowel sounds are active. Surgical incision sites appear well Musculoskeletal: General: No swelling. Cervical back: Neck supple. Comments: No lower extremity edema or erythema. No calf tenderness. No pain with plantar dorsiflexion. Distal pulses and sensation are intact and symmetric bilaterally. Skin is warm well-perfused. Compartments are soft. Skin: General: Skin is warm and dry. Capillary Refill: Capillary refill takes less than 2 seconds. Neurological: Mental Status: She is alert. Psychiatric: Mood and Affect: Mood normal. DIAGNOSTIC RESULTS RADIOLOGY (Per Emergency Physician): Interpretation per the Radiologist below, if available at the time of this note: CT abdomen pelvis w contrast Final Result Status post Krystal-en-Y gastric bypass. No acute intra-abdominal disease process. No evidence of bowel obstruction. Report Dictated on Electronically Signed By: Harish Whitman MD Electronically Signed Date/Time: 06/05/2025 2:53 PM EDT XR abdomen 1 view (Results Pending) LABS: Labs Reviewed BASIC METABOLIC PANEL - Abnormal Result Value SODIUM 138 POTASSIUM 4.1 CHLORIDE 103 CARBON DIOXIDE 28 UREA NITROGEN 7 (*) CREATININE 0.77 GLUCOSE 88 CALCIUM 9.0 ANION GAP 7 eGFR >90.0 COMPLETE URINALYSIS WITH REFLEX TO CULTURE - Abnormal Color, Urine Light Yellow Clarity, Urine Clear pH, Urine 6.5 Leukocytes, Urine Negative Nitrite, Urine Negative Protein, Urine Negative Glucose, Urine Normal Bilirubin, Urine Negative Ketones, Urine 10 (*) Urobilinogen, Urine Normal Blood, Urine Negative SPECIFIC GRAVITY OF URINE (NUMERIC) 1.010 Narrative: A specimen with <=10 WBC is not consistent with inflammation. This specimen will not reflex to a urine culture. CBC WITH AUTO DIFFERENTIAL - Normal Auto WBC 6.4 RBC 4.59 Hemoglobin 14.3 Hematocrit 43.0 MCV 93.7 MCH 31.2 MCHC 33.3 RDW 13.3 Platelets 233 MPV 10.1 nRBC 0.0 Neutrophils Relative 68.0 Lymphocytes Relative 23.6 Monocytes Relative 6.7 Eosinophils Relative 0.8 Basophils Relative 0.6 Immature Grans % 0.3 Neutrophils Absolute 4.4 Lymphocytes Absolute 1.5 Monocytes Absolute 0.4 Eosinophils Absolute 0.1 Basophils Absolute 0.0 Immature Grans Absolute 0.0 HEPATIC FUNCTION PANEL - Normal BILIRUBIN, TOTAL 0.4 BILIRUBIN, DIRECT 0.1 ALKALINE PHOSPHATASE 95 AST (SGOT) 20 ALT 19 ALBUMIN 4.1 TOTAL PROTEIN 7.2 LIPASE - Normal LIPASE 23 D-DIMER,QUANTITATIVE - Normal D-DIMER, INNOVANCE 0.24 Narrative: Innovance D-Dimer values of <0.50 mg/L FEU can be used in combination with a pre-test probability model (e.g. Well's) to exclude pulmonary embolism (PE) disease, as well as an aid in the diagnosis of deep vein thrombosis (DVT). HIGH SENSITIVITY TROPONIN, SERIAL BASELINE - Normal Troponin HS Serial Baseline <3 HIGH SENSITIVITY TROPONIN, SERIAL, SECOND TEST - Normal 2h Troponin HS (Serial 2nd Troponin) <3 LACTIC ACID WITH REFLEX - Normal LACTIC ACID 1.0 COMPREHENSIVE METABOLIC PANEL WITH MG REFLEX Narrative: The following orders were created for panel order Comprehensive Metabolic Panel w/ Mg Reflex. Procedure Abnormality Status --------- ------ Comprehensive metabolic ...[[id number]] Please view results for these tests on the individual orders. CBC WITH AUTO DIFFERENTIAL COMPREHENSIVE METABOLIC PANEL All other labs were within normal range or not returned as of this dictation. EMERGENCY DEPARTMENT COURSE and DIFFERENTIAL DIAGNOSIS/MDM: Vitals: Vitals: 06/05/25 1017 06/05/25 1325 06/05/25 1524 BP: (!) 135/92 (!) 134/90 (!) 133/91 Pulse: 94 88 89 Resp: 18 20 22 Temp: 36.7 C (98.1 F) TempSrc: Temporal SpO2: 100% 99% 100% Medications thiamine (Vitamin B1) 500 mg in sodium chloride 0.9 % 50 mL IVPB (500 mg IntraVENous New Bag 06/05/25 1800) sodium chloride 0.9% (NS) flush 10 mL (has no administration in time range) sodium chloride 0.9% (NS) flush 10 mL (has no administration in time range) sodium chloride 0.9 % infusion (has no administration in time range) acetaminophen (Tylenol) tablet 650 mg (has no administration in time range) Or acetaminophen (Tylenol) suppository 650 mg (has no administration in time range) ondansetron ODT (Zofran-ODT) disintegrating tablet 4 mg (has no administration in time range) Or ondansetron (Zofran) injection 4 mg (has no administration in time range) sodium chloride 0.9 % infusion (has no administration in time range) sodium chloride 0.9 % bolus 1,000 mL (0 mL IntraVENous Stopped 06/05/25 1311) ondansetron (Zofran) injection 4 mg (4 mg IntraVENous Given 06/05/25 1140) morphine injection 4 mg (4 mg IntraVENous Given 06/05/25 1139) diatrizoate meglumine-sodium (Gastrografin) 66-10 % solution 30 mL (30 mL Oral Given 06/05/25 1319) HYDROmorphone (Dilaudid) injection 0.5 mg (0.5 mg IntraVENous Given 06/05/25 1318) promethazine (Phenergan) injection 6.25 mg (6.25 mg IntraMUSCular Given 06/05/25 1319) iopamidol (Isovue-370) 76 % injection 75 mL (75 mL IntraVENous Given 06/05/25 1433) HYDROmorphone (Dilaudid) injection 0.5 mg (0.5 mg IntraVENous Given 06/05/25 1523) morphine injection 2 mg (2 mg IntraVENous Given 06/05/25 1907) ED care was supervised by Dr. Maya who independently examined and evaluated the patient. Please see their attestation note for further details. Nursing notes and medical records reviewed. In external chart review, patient was seen here for similar pain on 05-20. Imaging at that time showed mild gaseous distention of bowel loops with evidence of bariatric surgery. Ileus is most likely. Patient subsequently had diagnostic laparoscopy, with release of partial small bowel obstruction. Differential considerations included postoperative defect, bowel obstruction, constipation, impaction, PE, ACS, pneumonia, fluid electrolyte abnormality, metabolic disturbance Initial medical management includes Zofran, morphine, 1 L fluid bolus Initial workup includes EKG, CT abdomen and pelvis, CBC, BMP, hepatic function panel, D-dimer, lipase, troponin, UA Upon reassessment patient remains nontoxic. Reporting persistent, ongoing abdominal pain, as well as nausea. Patient initially stated she would be unable to drink the Gastrografin due to her nausea. Discussed with patient it was crucial that she drink the Gastrografin, to evaluate for possible surgical defects. After dose of Dilaudid and Phenergan, patient was agreeable to drinking the Gastrografin. Lab workup results CBC without leukocytosis or acute anemia. BMP without fluid electrolyte abnormality or NGUYỄN. Hepatic function panel unremarkable. Lipase is normal troponin less than 3 x 2. Dimer normal. Urinalysis unremarkable. Imaging results per radiology; CT AP: IMPRESSION: Status post Krystal-en-Y gastric bypass. No acute intra-abdominal disease process. No evidence of bowel obstruction. After CT resulted, did consult general surgery. See consult note for full detail. In the interim, patient did require additional doses of pain medication. No acute surgical intervention, but given intractable abdominal pain, with nausea, vomiting, and extensive surgical history within the abdomen, they did recommend CDU admission for observation for GI consultation, and will continue to follow while admitted. Discussed this plan with the patient she was comfortable and agreeable with admission. Paged CDU and spoke with Grace who accepted the patient for admission. Admission orders placed. Patient moved from ED to CDU in stable condition with stable vital signs. FINAL IMPRESSION 1. Intractable abdominal pain 2. Intractable nausea and vomiting 3. History of gastric bypass DISPOSITION Observation 06/05/2025 06:13:30 PM Shared decisoin making preformed. (Comment: Please note this report has been produced using speech recognition software and may contain errors related to that system including errors in grammar, punctuation, and spelling, as well as words and phrases that may be inappropriate. If there are any questions or concerns please feel free to contact the dictating provider for clarification.) Aster Villela PA-C (electronically signed) Emergency Medicine Provider [1] Past Medical History: Diagnosis Date Abdominal pain Anxiety Arthritis Back pain Blurred vision Depression GERD (gastroesophageal reflux disease) H/O gastric bypass 02/07/2025 [facility] 2013 [place] Hip pain Intestinal malabsorption 02/07/2025 Knee pain Seizures (HCC) SOB (shortness of breath) [2] Past Surgical History: Procedure Laterality Date APPENDECTOMY BRAIN SURGERY CLAVICLE SURGERY FRACTURE SURGERY GALLBLADDER SURGERY GASTRIC BYPASS 01/23/2014 [facility] - Dr Sumeet [place]. HYSTERECTOMY OTHER SURGICAL HISTORY 05/20/2025 LAPAROSCOPY, DIAGNOSTI TONSILLECTOMY [3] Family History Problem Relation Name Age of Onset Obesity Paternal Grandmother Diabetes Paternal Grandmother Hypertension Paternal Grandmother Obesity Maternal Grandmother Hypertension Maternal Grandmother Obesity Maternal Grandfather Diabetes Maternal Grandfather Hypertension Maternal Grandfather Heart disease Maternal Grandfather Arthritis Father Raymond Cancer Father Raymond Depression Father Raymond Diabetes Father Raymond Hypertension Father Raymond Mental illness Father Raymond Stroke Father Raymond Obesity Father Raymond Asthma Mother Sarah COPD Mother Sarah Obesity Mother Sarah Hypertension Mother Sarah Obesity Brother Hypertension Brother Breast cancer Neg Hx Ovarian cancer Neg Hx [4] Social History Socioeconomic History Marital status: Tobacco Use Smoking status: Never Smokeless tobacco: Never Substance and Sexual Activity Alcohol use: Not Currently Drug use: Yes Types: Marijuana Comment: medical marijuana Sexual activity: Yes Partners: Male control/protection: Female Sterilization Comment: Hysterectomy Social Drivers of Health Financial Resource Strain: Low Risk (03/26/2025) Overall Financial Resource Strain (CARDIA) Difficulty of Paying Living Expenses: Not very hard Food Insecurity: No Food Insecurity (05/27/2025) Hunger Vital Sign Worried About Running Out of Food in the Last Year: Never true Ran Out of Food in the Last Year: Never true Transportation Needs: No Transportation Needs (05/27/2025) PRAPARE - Transportation Lack of Transportation (Medical): No Lack of Transportation (Non-Medical): No Recent Concern: Transportation Needs - Unmet Transportation Needs (03/26/2025) PRAPARE - Transportation Lack of Transportation (Medical): Yes Lack of Transportation (Non-Medical): No Physical Activity: Insufficiently Active (03/26/2025) Exercise Vital Sign Days of Exercise per Week: 2 days Minutes of Exercise per Session: 30 min Stress: No Stress Concern Present (03/26/2025) [place] [employer] - Occupational Stress Questionnaire Feeling of Stress : Only a little Social Connections: Moderately Isolated (03/26/2025) Social Connection and Isolation Panel [NHANES] Frequency of Communication with Friends and Family: More than three times a week Frequency of Social Gatherings with Friends and Family: Once a week Attends Cheondoism Services: Never Active Member of Clubs or Organizations: No Attends Club or Organization Meetings: Never Marital Status: Intimate Partner Violence: Not At Risk (05/27/2025) Humiliation, Afraid, Rape, and Kick questionnaire Fear of Current or Ex-Partner: No Emotionally Abused: No Physically Abused: No Sexually Abused: No Housing Stability: Low Risk (05/27/2025) Housing Stability Vital Sign Unable to Pay for Housing in the Last Year: No Number of Times Moved in the Last Year: 0 Homeless in the Last Year: No Aster Villela PA-C 06/05/252000 Cosigned by Tiffany Ruiz DO at 06/07/2025 8:26 PM EDT [facility] 06-05-2025 Physician Emergency department Note Emergency Department Encounter [facility] CLINICAL DECISION UNIT CDU Patient: Lexis Nguyen : 1985 Date of Evaluation: 06/05/2025 ED Supervising Physician: Tiffany Ruiz DO I personally evaluated Lexis Nguyen and made/approved the management plan and take responsibility for the patient management. This will serve as my Supervisory note and shared attestation. I did perform a substantive portion of the visit including all aspects of the Medical Decision Making. I wore appropriate PPE for the entirety of this encounter. In brief, Lexis Nguyen is a 40 y.o. that presents to the emergency department for abdominal pain with nausea and vomiting. Patient has a history of laparoscopic Krystal-en-Y gastric bypass in 2013, hysterectomy appendectomy cholecystectomy. Patient was seen on 05/20/2025 for epigastric abdominal pain at the time CT was concerning for possible ileus patient had diagnostic laparoscopy which ended up showing partial bowel obstruction had removal of adhesions at that time. Patient states she has been unable to tolerate p.o. for the past 2 days. Focused exam: Vital signs afebrile no acute distress eyes PERRL unremarkable pharynx RRR clear lungs without resp distress abdomen tender to palpation upper abdomen without peritoneal findings no CVA tenderness no focal deficits alert and oriented Brief ED course/MDM: 40-year-old female present to the ED for abdominal pain and nausea and vomiting detailed above. Exam as above. CT imaging without acute intra-abdominal process status post Krystal-en-Y grossly unremarkable lab work. Surgery consulted surgery has seen and evaluated patient no acute surgical intervention but given intractable abdominal pain with nausea and vomiting and extensive surgical history recommended observation stay for GI consultation and will also follow patient while admitted. Patient admitted to CDU. Patient in agreement with plan. Diagnostics interpreted by me: I personally discussed the patient's management with other clinicians: All diagnostic, treatment, and disposition decisions were made by myself in conjunction with the PILAR. For all further details of the patient's emergency department visit, please see their documentation. (Comment: Please note this report has been produced using speech recognition software and may contain errors related to that system including errors in grammar, punctuation, and spelling, as well as words and phrases that may be inappropriate. If there are any questions or concerns please feel free to contact the dictating provider for clarification.) Tiffany Riuz DO [employer] Tiffany Ruiz DO 06/07/252031 [facility] Work Phone: 06-05-2025 Telephone encounter Note TFU-AD. LRYGB 01/23/2014 [place] DIAG LAP W/EDIL 05/20/25 AD.-lap EDIL w release of partial SBO Last OV-02/09/25 w SNAKER TRACTOR DRIVER, next tomorrow w SNAKER TRACTOR DRIVER Pt noted to have called and left message that she had emergent surgery w AGD 2 weeks ago. States pain has returned and is unable to keep food or fluids down. States has appt tomorrow and unsure if she is to wait or should go to the ER now. Call to pt. States she is in extreme amount of pain, located in same spot as prior to surgery. States just as painful as prior to surgery and she is unable to keep food or fluids down. States she is having difficulty breathing. Pt is speaking in complete sentences and does not sound as if she is struggling to breathe. Pt was informed that if she is having difficulty breathing, she should go to the ER. Pt states she is already en route to [facility] ER. Will make SNAKER TRACTOR DRIVER aware. Pt to call w any further questions or concerns. SNAKER TRACTOR DRIVER-RNCM-FYI [facility] 05-29-2025 Note HNO ID: [id number] Author: EUSEBIO WILBURN APRN.SAFETY AND HEALTH CONSULTANT Service: ? Author Type: Nurse Information Clerk Type: Anesthesia Procedure Notes Filed: 05/29/2025 09:17 Note Text: ANESTHESIOLOGY PROCEDURE NOTE PIV General Information Procedure Start Time/Medication Administration: 05/29/2025 9:04 AM Procedure End Time: 05/29/2025 9:05 AM Patient Location: OR Staffing SAFETY AND HEALTH CONSULTANT: Eusebio Wilburn APRN.SAFETY AND HEALTH CONSULTANT Performed by: HELADIO Preparation Site Prep: alcohol Procedure Details Indication: need for IV access Needle Size/Type: 22 gauge angiocath Orientation: Right Location: Hand Imaging Guidance Used: No SIGNATURE: Eusebio Wilburn APRN.CRNA PATIENT NAME: Lexis Nguyen DATE: May 29, 2025 TIME: 9:17 AM CSN: [id number] [facility] 05-29-2025 Note HNO ID: [id number] Author: EVY PADILLA RN Service: ? Author Type: Registered Nurse Type: Procedures Filed: 05/29/2025 08:07 Note Text: Inserted 20 gauge 2.25 Accu-cath into right median cubital vein with ultrasound per Narendra Osorio RN . Brisk blood return noted, flushed with 10 ml of normal saline without complications. Transparent semi-permeable dressing applied with identification and date marked. All patient questions answered at this time. Flowsheet and bedside RN updated. Please page with any questions. Evy Padilla RN Vascular Access Team Pager: [phone] [facility] 05-28-2025 Note [facility] 05-28-2025 Nurse Note Virtual Discharge completed. All questions answered. Confirmed that IV was removed by bedside RN. Pt gathered all belongings and denied need for transportation to exit. Patient instructed to let RN know when ready to leave. Bedside RN notified of completed discharge. [facility] 05-28-2025 Nurse Note Virtual Discharge completed. All questions answered. Confirmed that IV was removed by bedside RN. Pt gathered all belongings and denied need for transportation to exit. Patient instructed to let RN know when ready to leave. Bedside RN notified of completed discharge. Patient given discharge paperwork/instructions. IV removed. Meds delivered by [facility] pharmacy. Declined transport request. at bedside. All questions and concerns addressed. documented in this encounter [facility] 05-28-2025 Nurse Note Patient given discharge paperwork/instructions. IV removed. Meds delivered by [facility] pharmacy. Declined transport request. at bedside. All questions and concerns addressed. [facility] 05-28-2025 Note Problem: Pain - Adul t Goal: Verbalizes/displays adequate comfort level or baseline comfort level Outcome: Progressing Problem: Safety - Adult Goal: Free from fall injury Outcome: Progressing [facility] 05-28-2025 Plan of care note Problem: Pain - Adult Goal: Verbalizes/displays adequate comfort level or baseline comfort level Outcome: Progressing Problem: Safety - Adult Goal: Free from fall injury Outcome: Progressing [facility] 05-28-2025 Miscellaneous Notes Problem: Pain - Adult Goal: Verbalizes/displays adequate comfort level or baseline comfort level Outcome: Progressing Problem: Safety - Adult Goal: Free from fall injury Outcome: Progressing Problem: Pain - Adult Goal: Verbalizes/displays adequate comfort level or baseline comfort level Outcome: Progressing Problem: Safety - Adult Goal: Free from fall injury Outcome: Progressing Problem: Discharge Planning Goal: Discharge to home or other facility with appropriate resources Outcome: Progressing Problem: Chronic Conditions and Co-morbidities Goal: Patient's chronic conditions and co-morbidity symptoms are monitored and maintained or improved Outcome: Progressing documented in this encounter [facility] 05-27-2025 Plan of care note Problem: Pain - Adult Goal: Verbalizes/displays adequate comfort level or baseline comfort level Outcome: Progressing Problem: Safety - Adult Goal: Free from fall injury Outcome: Progressing Problem: Discharge Planning Goal: Discharge to home or other facility with appropriate resources Outcome: Progressing Problem: Chronic Conditions and Co-morbidities Goal: Patient's chronic conditions and co-morbidity symptoms are monitored and maintained or improved Outcome: Progressing [facility] 05-27-2025 History of Presen t illness Narrative Images from the original note were not included. General Surgery Call/Night Float Progress Note Call concern: afternoon check Subjective: Patient feeling same as she was this morning, still having pain in the epigastric region. States 9/10 intensity. Objective: Vitals: 05/27/25 1332 BP: 116/83 Pulse: 80 Resp: 20 Temp: 36.9 C (98.5 F) SpO2: 99% Exam: Gen: awake, alert, NAD Pulm: non labored breathing, equal chest rise Cor: Regular rate and rhythm Abd: Soft, obese, mild to moderately TTP in the epigastrium. Otherwise no significant TTP. No rebound, guarding, or peritonitis. Incisions C/D/I. A/P: 40 y.o. female prior LRYGB (2013) with recent EDIL without concern of obstruction on recent PO contrasted scan Ddx: postoperative pain vs marginal ulcer - okay for diet Trial CLD - increased MMPR for adequate analgesia - antiemetics prn - serial abd exams - prophylactic ulcer Tx PPI BID + Carafate Avoid NSAIDS Dw Dr. Jose Butcher MD General Surgery PGY-1 05/27/25 1:55 PM Pager #[phone] documented in this encounter [facility] 05-27-2025 History and physical note NOTE: The initial surgical note was filed as a Consult Note Instead of an H&P. While the Consult note contains all pertinent information regarding this patient's care and initial presentation consistent with an H&P, (HPI, PMH, PSH, Medications, Allergies, SH, FMH, ROS, PE, Relevant imaging and labs, Assessment and Plan), for the interest of maintaining proper documentation for billing, an H&P is now filed here. JULIETA MADISON MD General Surgery Resident 05/27/25 9:43 AM This note may have been dictated using VTM Medical Practice Edition 2.6 and/or Crowdfynd Voice Recognition Feature. The document was proofread; however, unrecognized voice recognition paperhanger apprentice errors may be present. ATTESTATION I discussed the above case with the president/gm production & live experiences by phone. I reviewed the relevant patient data, resident's note and made corrections as needed. I agree with the resident's plan. [employer] Work Phone: 05-27-2025 Note [facility] [employer] [facility] 05-27-2025 History and physical note NOTE: The initial surgical note was filed as a Consult Note Instead of an H&P. While the Consult note contains all pertinent information regarding this patient's care and initial presentation consistent with an H&P, (HPI, PMH, PSH, Medications, Allergies, SH, FMH, ROS, PE, Relevant imaging and labs, Assessment and Plan), for the interest of maintaining proper documentation for billing, an H&P is now filed here. JULIETA MADISON MD General Surgery Resident 05/27/25 9:43 AM This note may have been dictated using VTM Medical Practice Edition 2.6 and/or Crowdfynd Voice Recognition Feature. The document was proofread; however, unrecognized voice recognition paperhanger apprentice errors may be present. ATTESTATION I discussed the above case with the president/gm production & live experiences by phone. I reviewed the relevant patient data, resident's note and made corrections as needed. I agree with the resident's plan. documented in this encounter [facility] 05-27-2025 Consult note Formatting of th is note is different from the original. Images from the original note were not included. Department of General Surgery Surgical Service - 4 Resident H&P Note 05/27/2025 CHIEF COMPLAINT: Chief Complaint Patient presents with Abdominal Pain Pt comes in stating that she had emergency surgery 1 week ago to fix adhesion that wrapped around intestines. Pt states pain is back and is worse this time Reason for Consult: Abdominal pain, nausea and vomiting HISTORY OF PRESENT ILLNESS: Lexis Nguyen is a 40 y.o. female with significant past history of significant past history of GERD, depression, seizures, appendectomy, cholecystectomy, LRYGB 2013 who presents with abdominal pain, nausea and vomiting. Surgery was consulted for evaluation. Patient was recently admitted for similar symptoms on 05/20 and underwent a diagnostic lap, lysis of adhesions with Dr. Soto. Post operative course was uneventful and patient was discharged on 05/22. Yesterday around 9am patient had sudden onset of severe epigastric abdominal pain. The pain improved throughout the day but the recurred in yesterday evening. Patient has had nausea and 2 episodes of emesis. She last passed flatus yesterday. Denies fevers, chills, or SOB. On evaluation patient was afebrile, HDS on room air. Labs reviewed significant for: WBC 8.4, Hgb 12.1, plt 205, LA wnl, creatinine 0.67. CT A/P w/ IV contrast was without acute findings. Medical History[1] Surgical History[2] Medications Prior to Admission: Medications Ordered Prior to Encounter[3] Allergies: Nortriptyline, Nsaids, Other, Gabapentin, and Penicillins Social History[4] Family History[5] REVIEW OF SYSTEMS: Review of Systems Constitutional: Negative for chills and fever. HENT: Negative for congestion and drooling. Eyes: Negative for discharge and visual disturbance. Respiratory: Negative for cough and shortness of breath. Cardiovascular: Negative for chest pain and leg swelling. Gastrointestinal: Positive for abdominal pain, nausea and vomiting. Musculoskeletal: Negative for neck pain and neck stiffness. Skin: Negative for rash and wound. Neurological: Negative for syncope and facial asymmetry. Psychiatric/Behavioral: Negative for agitation and confusion. PHYSICAL EXAM: Vitals: 05/27/25 0838 BP: 117/87 Pulse: 88 Resp: 18 Temp: 36.4 C (97.5 F) SpO2: 100% No intake/output data recorded. CONSTITUTIONAL: awake, alert, cooperative HEENT: No scleral icterus, EOMI NECK: Supple LUNGS: No increased work of breathing, good air exchange CARDIOVASCULAR: Well perfused, RRR ABDOMEN: Soft, non-distended, moderate epigastric tenderness, no peritoneal signs GENITAL/URINARY: Not examined MUSCULOSKELETAL: There is no redness, warmth, or swelling of the joints. NEUROLOGIC: Awake, alert, oriented to name, place and time. SKIN: normal skin color, texture, no redness, warmth, or swelling DATA: CBC: No results found for: WBC, RBC, HGB, HCT, MCV, MCH, MCHC, RDW, PLT, MPV BMP: No results found for: NA, K, CL, CO2, BUN, CREATININE, CALCIUM, LABGLOM, GLUCOSE, GLU Hepatic Function Panel: No results found for: ALKPHOS, ALT, AST, PROT, BILITOT, BILIDIR PT/INR: No results found for: PROTIME, INR Troponin: No results found for: TROPONINI LIPASE: No results found for: LIPASE IMAGING: CT abdomen pelvis w contrast Narrative: Patient Name: LEXIS NGUYEN : 1985 [facility]#: [id number] Exam Date/Time: 05/26/2025 13:00 Procedure: CT ABDOMEN PELVIS W CONTRAST Ordering Provider: TREVINO JOHN Reason For Exam: Postsurgical pain CT ABDOMEN AND PELVIS WITH CONTRAST CLINICAL INDICATION: Postsurgical abdominal pain Axial CT images of the abdomen and pelvis were acquired after the administration of intravenous contrast. 75 ml of Isovue-370 contrast was given intravenously. Oral contrast was not given for this examination. Dose reduction was employed with automated exposure control. COMPARISON: 05/20/2025 FINDINGS: The gallbladder has been removed. The liver, spleen, pancreas, adrenal glands and kidneys appear within normal limits. The abdominal aorta is normal in caliber. There is no retroperitoneal, pelvic, or inguinal lymphadenopathy. The urinary bladder appears grossly normal. The uterus has been removed. 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 No abnormal bowel thickening or dilatation is seen. There is no free air or free fluid within the abdomen or pelvis. The visualized portion of the lung bases appear clear. No lytic or blastic lesions are seen on the bone windows. Impression: No acute findings are seen on this examination to explain the patient's pain. Report Dictated on Electronically Signed By: Alfredito Gay MD Electronically Signed Date/Time: 05/26/2025 1:27 PM EDT ASSESSMENT AND PLAN: This is a 40 y.o. female s/p LRGYB 2013, s/p diagnostic lap lysis of adhesion 05/[address] Soto now back with abdominal pain, nausea and vomiting - No urgent operative intervention - Will obtain CT A/P with PO contrast - NPO w/ IVF - Prn pain and nausea control - IV Vimpat (home med) - Will admit to surgical service Patient discussed with attending, Dr. Garcia profile mill operator tape control for Dr. Brittany Madison MD General Surgery PGY-5 Pager # [phone] ATTESTATION I discussed the above case with the president/gm production & live experiences by phone. I reviewed the relevant patient data, resident's note and made corrections as needed. I agree with the resident's plan. [1] Past Medical History: Diagnosis Date Abdominal pain Anxiety Arthritis Back pain Blurred vision Depression GERD (gastroesophageal reflux disease) H/O gastric bypass 02/07/2025 LRYGB 2013 [place] Hip pain Intestinal malabsorption 02/07/2025 Knee pain Seizures (HCC) SOB (shortness of breath) [2] Past Surgical History: Procedure Laterality Date APPENDECTOMY BRAIN SURGERY CLAVICLE SURGERY FRACTURE SURGERY GALLBLADDER SURGERY GASTRIC BYPASS 01/23/2014 LRYGB - Dr Sumeet Mar Austin. HYSTERECTOMY OTHER SURGICAL HISTORY 05/20/2025 LAPAROSCOPY, DIAGNOSTI TONSILLECTOMY [3] Current Facility-Administered Medications Medication Dose Route Frequency Provider Last Rate Last Admin diatrizoate meglumine-sodium (Gastrografin) 66-10 % solution 30 mL 30 mL Oral Once , DO HYDROmorphone (Dilaudid) injection 0.5 mg 0.5 mg IntraVENous Once , DO sodium chloride 0.9 % bolus 1,000 mL 1,000 mL IntraVENous Once , DO Current Outpatient Medications Medication Sig Dispense Refill amitriptyline (Elavil) 25 MG tablet Take 25 mg by mouth Nightly. ARIPiprazole (Abilify) 5 MG tablet Take 5 mg by mouth daily. calcium citrate 1040 MG tablet Take by mouth 3 times a day. cholecalciferol (Vitamin D-3) 25 MCG (1000 UT) tablet Take 1,000 Units by mouth in the morning. DULoxetine (Cymbalta) [address] capsule Take 60 mg by mouth 2 times daily. lacosamide (Vimpat) 150 mg tablet tablet Take 200 mg by mouth 2 times daily. LORazepam (Ativan) 0.5 MG tablet lorazepam 0.5 mg tablet (Patient not taking: Reported on 02/09/2025) metFORMIN (Glucophage) 500 MG tablet Take 500 mg by mouth daily. (Patient not taking: Reported on 05/21/2025) methocarbamol (Robaxin) 500 MG tablet Take 1 tablet (500 mg) by mouth 2 times daily for 10 days. 20 tablet 0 Multiple Vitamins-Minerals (Oncovite) tablet Take 1 tablet by mouth in the morning and 1 tablet in the evening. norethindrone (Ortho Micronor) 0.35 MG tablet Take 1 tablet (0.35 mg) by mouth daily. 84 tablet 3 ondansetron (Zofran) 4 MG tablet Take 1 tablet (4 mg) by mouth every 8 hours as needed for nausea or vomiting for up to 7 days. 21 tablet 0 oxyCODONE-acetaminophen (Percocet) 5-325 MG tablet Take 1 tablet by mouth every 6 hours as needed for severe pain (7-10) for up to 5 days. 12 tablet 0 SEMAGLUTIDE, 1 MG/DOSE, SC Inject 1 mL under the skin 1 (one) time per week. [4] Social History Socioeconomic History Marital status: Tobacco Use Smoking status: Never Smokeless tobacco: Never Substance and Sexual Activity Alcohol use: Not Currently Drug use: Yes Types: Marijuana Comment: medical marijuana Sexual activity: Yes Partners: Male control/protection: Female Sterilization Comment: Hysterectomy Social Drivers of Health Financial Resource Strain: Low Risk (03/26/2025) Overall Financial Resource Strain (CARDIA) Difficulty of Paying Living Expenses: Not very hard Food Insecurity: No Food Insecurity (03/26/2025) Hunger Vital Sign Worried About Running Out of Food in the Last Year: Never true Ran Out of Food in the Last Year: Never true Transportation Needs: No Transportation Needs (05/21/2025) PRAPARE - Transportation Lack of Transportation (Medical): No Lack of Transportation (Non-Medical): No Recent Concern: Transportation Needs - Unmet Transportation Needs (03/26/2025) PRAPARE - Transportation Lack of Transportation (Medical): Yes Lack of Transportation (Non-Medical): No Physical Activity: Insufficiently Active (03/26/2025) Exercise Vital Sign Days of Exercise per Week: 2 days Minutes of Exercise per Session: 30 min Stress: No Stress Concern Present (03/26/2025) [place] [employer] - Occupational Stress Questionnaire Feeling of Stress : Only a little Social Connections: Moderately Isolated (03/26/2025) Social Connection and Isolation Panel [NHANES] Frequency of Communication with Friends and Family: More than three times a week Frequency of Social Gatherings with Friends and Family: Once a week Attends Cheondoism Services: Never Active Member of Clubs or Organizations: No Attends Club or Organization Meetings: Never Marital Status: Intimate Partner Violence: Not At Risk (05/21/2025) Humiliation, Afraid, Rape, and Kick questionnaire Fear of Current or Ex-Partner: No Emotionally Abused: No Physically Abused: No Sexually Abused: No Housing Stability: Low Risk (05/21/2025) Housing Stability Vital Sign Unable to Pay for Housing in the Last Year: No Number of Times Moved in the Last Year: 0 Homeless in the Last Year: No [5] Family History Problem Relation Name Age of Onset Obesity Paternal Grandmother Diabetes Paternal Grandmother Hypertension Paternal Grandmother Obesity Maternal Grandmother Hypertension Maternal Grandmother Obesity Maternal Grandfather Diabetes Maternal Grandfather Hypertension Maternal Grandfather Heart disease Maternal Grandfather Arthritis Father Raymond Cancer Father Raymond Depression Father Raymond Diabetes Father Raymond Hypertension Father Raymond Mental illness Father Raymond Stroke Father Raymond Obesity Father Raymond Asthma Mother Sarah COPD Mother Sarah Obesity Mother Sarah Hypertension Mother Sarah Obesity Brother Hypertension Brother Breast cancer Neg Hx Ovarian cancer Neg Hx [facility] 05-27-2025 Consult note Formatting of th is note is different from the original. Images from the original note were not included. Department of General Surgery Surgical Service - 4 Resident H&P Note 05/27/2025 CHIEF COMPLAINT: Chief Complaint Patient presents with Abdominal Pain Pt comes in stating that she had emergency surgery 1 week ago to fix adhesion that wrapped around intestines. Pt states pain is back and is worse this time Reason for Consult: Abdominal pain, nausea and vomiting HISTORY OF PRESENT ILLNESS: Lexis Nguyen is a 40 y.o. female with significant past history of significant past history of GERD, depression, seizures, appendectomy, cholecystectomy, LRYGB 2013 who presents with abdominal pain, nausea and vomiting. Surgery was consulted for evaluation. Patient was recently admitted for similar symptoms on 05/20 and underwent a diagnostic lap, lysis of adhesions with Dr. Soto. Post operative course was uneventful and patient was discharged on 05/22. Yesterday around 9am patient had sudden onset of severe epigastric abdominal pain. The pain improved throughout the day but the recurred in yesterday evening. Patient has had nausea and 2 episodes of emesis. She last passed flatus yesterday. Denies fevers, chills, or SOB. On evaluation patient was afebrile, HDS on room air. Labs reviewed significant for: WBC 8.4, Hgb 12.1, plt 205, LA wnl, creatinine 0.67. CT A/P w/ IV contrast was without acute findings. Medical History[1] Surgical History[2] Medications Prior to Admission: Medications Ordered Prior to Encounter[3] Allergies: Nortriptyline, Nsaids, Other, Gabapentin, and Penicillins Social History[4] Family History[5] REVIEW OF SYSTEMS: Review of Systems Constitutional: Negative for chills and fever. HENT: Negative for congestion and drooling. Eyes: Negative for discharge and visual disturbance. Respiratory: Negative for cough and shortness of breath. Cardiovascular: Negative for chest pain and leg swelling. Gastrointestinal: Positive for abdominal pain, nausea and vomiting. Musculoskeletal: Negative for neck pain and neck stiffness. Skin: Negative for rash and wound. Neurological: Negative for syncope and facial asymmetry. Psychiatric/Behavioral: Negative for agitation and confusion. PHYSICAL EXAM: Vitals: 05/27/25 0838 BP: 117/87 Pulse: 88 Resp: 18 Temp: 36.4 C (97.5 F) SpO2: 100% No intake/output data recorded. CONSTITUTIONAL: awake, alert, cooperative HEENT: No scleral icterus, EOMI NECK: Supple LUNGS: No increased work of breathing, good air exchange CARDIOVASCULAR: Well perfused, RRR ABDOMEN: Soft, non-distended, moderate epigastric tenderness, no peritoneal signs GENITAL/URINARY: Not examined MUSCULOSKELETAL: There is no redness, warmth, or swelling of the joints. NEUROLOGIC: Awake, alert, oriented to name, place and time. SKIN: normal skin color, texture, no redness, warmth, or swelling DATA: CBC: No results found for: WBC, RBC, HGB, HCT, MCV, MCH, MCHC, RDW, PLT, MPV BMP: No results found for: NA, K, CL, CO2, BUN, CREATININE, CALCIUM, LABGLOM, GLUCOSE, GLU Hepatic Function Panel: No results found for: ALKPHOS, ALT, AST, PROT, BILITOT, BILIDIR PT/INR: No results found for: PROTIME, INR Troponin: No results found for: TROPONINI LIPASE: No results found for: LIPASE IMAGING: CT abdomen pelvis w contrast Narrative: Patient Name: LEXIS NGUYEN : 1985 [facility]#: [id number] Exam Date/Time: 05/26/2025 13:00 Procedure: CT ABDOMEN PELVIS W CONTRAST Ordering Provider: TREVINO JOHN Reason For Exam: Postsurgical pain CT ABDOMEN AND PELVIS WITH CONTRAST CLINICAL INDICATION: Postsurgical abdominal pain Axial CT images of the abdomen and pelvis were acquired after the administration of intravenous contrast. 75 ml of Isovue-370 contrast was given intravenously. Oral contrast was not given for this examination. Dose reduction was employed with automated exposure control. COMPARISON: 05/20/2025 FINDINGS: The gallbladder has been removed. The liver, spleen, pancreas, adrenal glands and kidneys appear within normal limits. The abdominal aorta is normal in caliber. There is no retroperitoneal, pelvic, or inguinal lymphadenopathy. The urinary bladder appears grossly normal. The uterus has been removed. 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 No abnormal bowel thickening or dilatation is seen. There is no free air or free fluid within the abdomen or pelvis. The visualized portion of the lung bases appear clear. No lytic or blastic lesions are seen on the bone windows. Impression: No acute findings are seen on this examination to explain the patient's pain. Report Dictated on Electronically Signed By: Alfredito Gay MD Electronically Signed Date/Time: 05/26/2025 1:27 PM EDT ASSESSMENT AND PLAN: This is a 40 y.o. female s/p LRGYB 2013, s/p diagnostic lap lysis of adhesion 05/[address] Soto now back with abdominal pain, nausea and vomiting - No urgent operative intervention - Will obtain CT A/P with PO contrast - NPO w/ IVF - Prn pain and nausea control - IV Vimpat (home med) - Will admit to surgical service Patient discussed with attending, Dr. Garcia profile mill operator tape control for Dr. Brittany Madison MD General Surgery PGY-5 Pager # [phone] ATTESTATION I discussed the above case with the president/gm production & live experiences by phone. I reviewed the relevant patient data, resident's note and made corrections as needed. I agree with the resident's plan. [1] Past Medical History: Diagnosis Date Abdominal pain Anxiety Arthritis Back pain Blurred vision Depression GERD (gastroesophageal reflux disease) H/O gastric bypass 02/07/2025 LRYGB 2013 [place] Hip pain Intestinal malabsorption 02/07/2025 Knee pain Seizures (HCC) SOB (shortness of breath) [2] Past Surgical History: Procedure Laterality Date APPENDECTOMY BRAIN SURGERY CLAVICLE SURGERY FRACTURE SURGERY GALLBLADDER SURGERY GASTRIC BYPASS 01/23/2014 LRYGB - Dr Sumeet Mar [place]. HYSTERECTOMY OTHER SURGICAL HISTORY 05/20/2025 LAPAROSCOPY, DIAGNOSTI TONSILLECTOMY [3] Current Facility-Administered Medications Medication Dose Route Frequency Provider Last Rate Last Admin diatrizoate meglumine-sodium (Gastrografin) 66-10 % solution 30 mL 30 mL Oral Once , DO HYDROmorphone (Dilaudid) injection 0.5 mg 0.5 mg IntraVENous Once , DO sodium chloride 0.9 % bolus 1,000 mL 1,000 mL IntraVENous Once , DO Current Outpatient Medications Medication Sig Dispense Refill amitriptyline (Elavil) 25 MG tablet Take 25 mg by mouth Nightly. ARIPiprazole (Abilify) 5 MG tablet Take 5 mg by mouth daily. calcium citrate 1040 MG tablet Take by mouth 3 times a day. cholecalciferol (Vitamin D-3) 25 MCG (1000 UT) tablet Take 1,000 Units by mouth in the morning. DULoxetine (Cymbalta) [address] capsule Take 60 mg by mouth 2 times daily. lacosamide (Vimpat) 150 mg tablet tablet Take 200 mg by mouth 2 times daily. LORazepam (Ativan) 0.5 MG tablet lorazepam 0.5 mg tablet (Patient not taking: Reported on 02/09/2025) metFORMIN (Glucophage) 500 MG tablet Take 500 mg by mouth daily. (Patient not taking: Reported on 05/21/2025) methocarbamol (Robaxin) 500 MG tablet Take 1 tablet (500 mg) by mouth 2 times daily for 10 days. 20 tablet 0 Multiple Vitamins-Minerals (Oncovite) tablet Take 1 tablet by mouth in the morning and 1 tablet in the evening. norethindrone (Ortho Micronor) 0.35 MG tablet Take 1 tablet (0.35 mg) by mouth daily. 84 tablet 3 ondansetron (Zofran) 4 MG tablet Take 1 tablet (4 mg) by mouth every 8 hours as needed for nausea or vomiting for up to 7 days. 21 tablet 0 oxyCODONE-acetaminophen (Percocet) 5-325 MG tablet Take 1 tablet by mouth every 6 hours as needed for severe pain (7-10) for up to 5 days. 12 tablet 0 SEMAGLUTIDE, 1 MG/DOSE, SC Inject 1 mL under the skin 1 (one) time per week. [4] Social History Socioeconomic History Marital status: Tobacco Use Smoking status: Never Smokeless tobacco: Never Substance and Sexual Activity Alcohol use: Not Currently Drug use: Yes Types: Marijuana Comment: medical marijuana Sexual activity: Yes Partners: Male control/protection: Female Sterilization Comment: Hysterectomy Social Drivers of Health Financial Resource Strain: Low Risk (03/26/2025) Overall Financial Resource Strain (CARDIA) Difficulty of Paying Living Expenses: Not very hard Food Insecurity: No Food Insecurity (03/26/2025) Hunger Vital Sign Worried About Running Out of Food in the Last Year: Never true Ran Out of Food in the Last Year: Never true Transportation Needs: No Transportation Needs (05/21/2025) PRAPARE - Transportation Lack of Transportation (Medical): No Lack of Transportation (Non-Medical): No Recent Concern: Transportation Needs - Unmet Transportation Needs (03/26/2025) PRAPARE - Transportation Lack of Transportation (Medical): Yes Lack of Transportation (Non-Medical): No Physical Activity: Insufficiently Active (03/26/2025) Exercise Vital Sign Days of Exercise per Week: 2 days Minutes of Exercise per Session: 30 min Stress: No Stress Concern Present (03/26/2025) [place] - Occupational Stress Questionnaire Feeling of Stress : Only a little Social Connections: Moderately Isolated (03/26/2025) Social Connection and Isolation Panel [NHANES] Frequency of Communication with Friends and Family: More than three times a week Frequency of Social Gatherings with Friends and Family: Once a week Attends Cheondoism Services: Never Active Member of Clubs or Organizations: No Attends Club or Organization Meetings: Never Marital Status: Intimate Partner Violence: Not At Risk (05/21/2025) Humiliation, Afraid, Rape, and Kick questionnaire Fear of Current or Ex-Partner: No Emotionally Abused: No Physically Abused: No Sexually Abused: No Housing Stability: Low Risk (05/21/2025) Housing Stability Vital Sign Unable to Pay for Housing in the Last Year: No Number of Times Moved in the Last Year: 0 Homeless in the Last Year: No [5] Family History Problem Relation Name Age of Onset Obesity Paternal Grandmother Diabetes Paternal Grandmother Hypertension Paternal Grandmother Obesity Maternal Grandmother Hypertension Maternal Grandmother Obesity Maternal Grandfather Diabetes Maternal Grandfather Hypertension Maternal Grandfather Heart disease Maternal Grandfather Arthritis Father Raymond Cancer Father Raymond Depression Father Raymond Diabetes Father Raymond Hypertension Father Raymond Mental illness Father Raymond Stroke Father Raymond Obesity Father Raymond Asthma Mother Sarah COPD Mother Sarah Obesity Mother Sarah Hypertension Mother Sarah Obesity Brother Hypertension Brother Breast cancer Neg Hx Ovarian cancer Neg Hx documented in this encounter [facility] 05-27-2025 Emergency department Note EMERGENCY DEPARTMENT ENCOUNTER Pt Name: Lexis Nguyen Birthdate 1985 Date of evaluation: 05/27/2025 ED Provider: DIVYA LOPEZ DO CHIEF COMPLAINT Chief Complaint Patient presents with Abdominal Pain Pt comes in stating that she had emergency surgery 1 week ago to fix adhesion that wrapped around intestines. Pt states pain is back and is worse this time HISTORY OF PRESENT ILLNESS (Location/Symptom, Timing/Onset, Context/Setting, Quality, Duration, Modifying Factors, Severity) Note limiting factors. I wore appropriate PPE for the entirety of this encounter. HPI Lexis Nguyen is a 40 y.o. who presents to the emergency department for epigastric abdominal pain that she rates 10 out of 10. States the pain woke her up from sleep today. She was seen here yesterday for similar complaint and discharged. Had a ex lap and adhesion lysis performed by Dr. Soto 1 week ago after being diagnosed with SBO. She has been vomiting and unable to hold down any fluids. Denies any diarrhea or fevers. States she has had multiple abdominal surgeries including cholecystectomy and appendectomy. Denies any chest pain or shortness of breath. Denies any dysuria. Nursing Notes were reviewed. Limitations to history: None Outside historians: Significant other REVIEW OF SYSTEMS Review of Systems Pertinent positives and negatives as per HPI. PAST MEDICAL HISTORY Medical History[1] SURGICAL HISTORY Surgical History[2] CURRENT MEDICATIONS Current Discharge Medication List CONTINUE these medications which have NOT CHANGED Details amitriptyline (Elavil) 25 MG tablet Take 25 mg by mouth Nightly. ARIPiprazole (Abilify) 5 MG tablet Take 5 mg by mouth daily. calcium citrate 1040 MG tablet Take by mouth 3 times a day. cholecalciferol (Vitamin D-3) 25 MCG (1000 UT) tablet Take 1,000 Units by mouth in the morning. DULoxetine (Cymbalta) [address] capsule Take 60 mg by mouth 2 times daily. lacosamide (Vimpat) 150 mg tablet tablet Take 200 mg by mouth 2 times daily. LORazepam (Ativan) 0.5 MG tablet lorazepam 0.5 mg tablet metFORMIN (Glucophage) 500 MG tablet Take 500 mg by mouth daily. methocarbamol (Robaxin) 500 MG tablet Take 1 tablet (500 mg) by mouth 2 times daily for 10 days. Qty: 20 tablet, Refills: 0 Multiple Vitamins-Minerals (Oncovite) tablet Take 1 tablet by mouth in the morning and 1 tablet in the evening. norethindrone (Ortho Micronor) 0.35 MG tablet Take 1 tablet (0.35 mg) by mouth daily. Qty: 84 tablet, Refills: 3 Associated Diagnoses: Left lower quadrant abdominal pain; Hemorrhagic ovarian cyst ondansetron (Zofran) 4 MG tablet Take 1 tablet (4 mg) by mouth every 8 hours as needed for nausea or vomiting for up to 7 days. Qty: 21 tablet, Refills: 0 Associated Diagnoses: Abdominal pain, epigastric; Postoperative pain oxyCODONE-acetaminophen (Percocet) 5-325 MG tablet Take 1 tablet by mouth every 6 hours as needed for severe pain (7-10) for up to 5 days. Qty: 12 tablet, Refills: 0 Associated Diagnoses: Postoperative abdominal pain SEMAGLUTIDE, 1 MG/DOSE, SC Inject 1 mL under the skin 1 (one) time per week. ALLERGIES Nortriptyline, Nsaids, Other, Gabapentin, and Penicillins FAMILY HISTORY Family History[3] SOCIAL HISTORY Social History[4] SCREENINGS PHYSICAL EXAM ED Triage Vitals [05/27/25 0838] Temp Heart Rate Resp BP 36.4 C (97.5 F) 88 18 117/87 SpO2 Temp Source Heart Rate Source Patient Position 100 % Temporal Monitor -- BP Location FiO2 (%) -- -- Physical Exam Constitutional: General: She is not in acute distress. Appearance: Normal appearance. HENT: Head: Normocephalic and atraumatic. Right Ear: External ear normal. Left Ear: External ear normal. Nose: No congestion or rhinorrhea. Mouth/Throat: Mouth: Mucous membranes are moist. Pharynx: Oropharynx is clear. Eyes: Extraocular Movements: Extraocular movements intact. Pupils: Pupils are equal, round, and reactive to light. Cardiovascular: Rate and Rhythm: Normal rate and regular rhythm. Pulses: Normal pulses. Heart sounds: Normal heart sounds. Pulmonary: Effort: Pulmonary effort is normal. No respiratory distress. Breath sounds: Normal breath sounds. Abdominal: General: There is no distension. Palpations: Abdomen is soft. Tenderness: There is abdominal tenderness in the epigastric area. Musculoskeletal: General: No swelling or deformity. Normal range of motion. Cervical back: Normal range of motion. Skin: General: Skin is warm and dry. Capillary Refill: Capillary refill takes less than 2 seconds. Findings: No rash. Neurological: Mental Status: She is alert and oriented to person, place, and time. Mental status is at baseline. Psychiatric: Mood and Affect: Mood normal. Behavior: Behavior normal. DIAGNOSTIC RESULTS RADIOLOGY (Per Emergency Physician): Interpretation per the Radiologist below, if available at the time of this note: CT abdomen pelvis wo IV contrast (Results Pending) LABS: Labs Reviewed CBC WITH AUTO DIFFERENTIAL - Abnormal Result Value Auto WBC 8.4 RBC 3.95 Hemoglobin 12.1 Hematocrit 37.2 MCV 94.2 MCH 30.6 MCHC 32.5 RDW 13.4 Platelets 205 MPV 9.9 nRBC 0.0 Neutrophils Relative 79.8 Lymphocytes Relative 13.4 (*) Monocytes Relative 5.3 Eosinophils Relative 0.7 Basophils Relative 0.4 Immature Grans % 0.4 Neutrophils Absolute 6.7 Lymphocytes Absolute 1.1 Monocytes Absolute 0.4 Eosinophils Absolute 0.1 Basophils Absolute 0.0 Immature Grans Absolute 0.0 LIPASE - Normal LIPASE 18 COMPREHENSIVE METABOLIC PANEL POCT GLUCOSE METER POCT GLUCOSE METER POCT GLUCOSE METER All other labs were within normal range or not returned as of this dictation. EMERGENCY DEPARTMENT COURSE and DIFFERENTIAL DIAGNOSIS/MDM: Vitals: Vitals: 05/27/25 0838 05/27/25 0838 BP: 117/87 Pulse: 88 Resp: 18 Temp: 36.4 C (97.5 F) TempSrc: Temporal SpO2: 100% Weight: 109 kg (240 lb) Height: 1.626 m (5' 4) The patient presented with a chief complaint of abd pain. The differential diagnosis associated with this patient's presentation includes SBO, postop pain, new intra-abdominal problem. Our workup consisted of ordering/reviewing labs and surgery consult. CBC normal. Lipase CMP pending at this time. Will order CT pelvis with oral contrast per surgery request. Given Zofran Dilaudid for symptom control. Surgery has accepted patient onto their service. Unknown cause of abdominal pain at this time. Diagnoses as of 05/27/25 0959 Abdominal pain External records reviewed: Had adhesion lysis from SBO 1 week ago. Diagnostics interpreted by me: none Discussions with other clinicians: Optical Dispenser surgery Chronic conditions impacting care: Multiple abdominal surgeries Social determinants of health affecting care: none ED Medications managed: Medications sodium chloride 0.9 % bolus 1,000 mL (1,000 mL IntraVENous New Bag 05/27/25 5682) ondansetron ODT (Zofran-ODT) disintegrating tablet 4 mg (has no administration in time range) Or ondansetron (Zofran) injection 4 mg (has no administration in time range) enoxaparin (Lovenox) syringe 30 mg (has no administration in time range) lactated Ringer's (LR) infusion (has no administration in time range) HYDROmorphone (Dilaudid) injection 0.25 mg (has no administration in time range) Or HYDROmorphone (Dilaudid) injection 0.5 mg (has no administration in time range) acetaminophen (Ofirmev) IVPB 1,000 mg (has no administration in time range) Insulin Lispro (Humalog) injection 0-12 Units (has no administration in time range) glucose oral gel 15 g (has no administration in time range) dextrose 50 % solution 12.5 g (has no administration in time range) glucagon (human recombinant) injection 1 mg (has no administration in time range) dextrose 5 % infusion (has no administration in time range) lacosamide (Vimpat) 200 mg in sodium chloride 70 mL IVPB (has no administration in time range) naloxone (Narcan) injection 0.4 mg (has no administration in time range) HYDROmorphone (Dilaudid) injection 0.5 mg (0.5 mg IntraVENous Given 05/27/25 0920) diatrizoate meglumine-sodium (Gastrografin) 66-10 % solution 30 mL (30 mL Oral Given 05/27/25 0936) ondansetron (Zofran) injection 4 mg (4 mg IntraVENous Given 05/27/25 0937) Prescription drugs considered: Dilaudid PROCEDURES: Unless otherwise noted below, none Procedures FINAL IMPRESSION 1. Abdominal pain DISPOSITION Admit 05/27/2025 09:29:42 AM PATIENT REFERRED TO: No follow-up provider specified. DISCHARGE MEDICATIONS: Current Discharge Medication List (Comment: Please note this report has been produced using speech recognition software and may contain errors related to that system including errors in grammar, punctuation, and spelling, as well as words and phrases that may be inappropriate. If there are any questions or concerns please feel free to contact the dictating provider for clarification.) DIVYA LOPEZ DO (electronically signed) Emergency Medicine Provider [1] Past Medical History: Diagnosis Date Abdominal pain Anxiety Arthritis Back pain Blurred vision Depression GERD (gastroesophageal reflux disease) H/O gastric bypass 02/07/2025 LRYGB 2013 [place] Hip pain Intestinal malabsorption 02/07/2025 Knee pain Seizures (HCC) SOB (shortness of breath) [2] Past Surgical History: Procedure Laterality Date APPENDECTOMY BRAIN SURGERY CLAVICLE SURGERY FRACTURE SURGERY GALLBLADDER SURGERY GASTRIC BYPASS 01/23/2014 [facility] - Dr Sumeet Mar [place]. HYSTERECTOMY OTHER SURGICAL HISTORY 05/20/2025 LAPAROSCOPY, DIAGNOSTI TONSILLECTOMY [3] Family History Problem Relation Name Age of Onset Obesity Paternal Grandmother Diabetes Paternal Grandmother Hypertension Paternal Grandmother Obesity Maternal Grandmother Hypertension Maternal Grandmother Obesity Maternal Grandfather Diabetes Maternal Grandfather Hypertension Maternal Grandfather Heart disease Maternal Grandfather Arthritis Father Raymond Cancer Father Raymond Depression Father Raymond Diabetes Father Raymond Hypertension Father Raymond Mental illness Father Raymond Stroke Father Raymond Obesity Father Raymond Asthma Mother Sarah COPD Mother Sarah Obesity Mother Sarah Hypertension Mother Sarah Obesity Brother Hypertension Brother Breast cancer Neg Hx Ovarian cancer Neg Hx [4] Social History Socioeconomic History Marital status: Tobacco Use Smoking status: Never Smokeless tobacco: Never Substance and Sexual Activity Alcohol use: Not Currently Drug use: Yes Types: Marijuana Comment: medical marijuana Sexual activity: Yes Partners: Male control/protection: Female Sterilization Comment: Hysterectomy Social Drivers of Health Financial Resource Strain: Low Risk (03/26/2025) Overall Financial Resource Strain (CARDIA) Difficulty of Paying Living Expenses: Not very hard Food Insecurity: No Food Insecurity (03/26/2025) Hunger Vital Sign Worried About Running Out of Food in the Last Year: Never true Ran Out of Food in the Last Year: Never true Transportation Needs: No Transportation Needs (05/21/2025) PRAPARE - Transportation Lack of Transportation (Medical): No Lack of Transportation (Non-Medical): No Recent Concern: Transportation Needs - Unmet Transportation Needs (03/26/2025) PRAPARE - Transportation Lack of Transportation (Medical): Yes Lack of Transportation (Non-Medical): No Physical Activity: Insufficiently Active (03/26/2025) Exercise Vital Sign Days of Exercise per Week: 2 days Minutes of Exercise per Session: 30 min Stress: No Stress Concern Present (03/26/2025) [place] [employer] - Occupational Stress Questionnaire Feeling of Stress : Only a little Social Connections: Moderately Isolated (03/26/2025) Social Connection and Isolation Panel [NHANES] Frequency of Communication with Friends and Family: More than three times a week Frequency of Social Gatherings with Friends and Family: Once a week Attends Cheondoism Services: Never Active Member of Clubs or Organizations: No Attends Club or Organization Meetings: Never Marital Status: Intimate Partner Violence: Not At Risk (05/21/2025) Humiliation, Afraid, Rape, and Kick questionnaire Fear of Current or Ex-Partner: No Emotionally Abused: No Physically Abused: No Sexually Abused: No Housing Stability: Low Risk (05/21/2025) Housing Stability Vital Sign Unable to Pay for Housing in the Last Year: No Number of Times Moved in the Last Year: 0 Homeless in the Last Year: No Divya Lopez DO Resident 05/27/25 0959 Cosigned by Rocco Thomason MD at 05/27/2025 10:42 AM EDT Emergency Department Encounter [facility] EMERGENCY DEPT Patient: Lexis Nguyen : 1985 Date of Evaluation: 05/27/2025 ED Supervising Physician: Rocco Thomason MD I personally evaluated Lexis Nguyen and made/approved the management plan and take responsibility for the patient management. This will serve as my Supervisory note and shared attestation. I did perform a substantive portion of the visit including all aspects of the Medical Decision Making. I wore appropriate PPE for the entirety of this encounter. In brief, Lexis Nguyen is a 40 y.o. that presents to the emergency department with upper abdominal pain associate with nausea and vomiting. Patient was seen yesterday for similar and had CT scan that did not show any signs of obstruction. She is 1 week status post laparoscopic surgery to takedown adhesions that were causing a small bowel obstruction. She is several years status post Krystal-en-Y gastric bypass surgery. States her pain has worsened since last night as has been vomiting. No blood in the emesis. No fevers Focused exam: Awake and alert. Afebrile. Nontoxic. Lungs clear to auscultation. Heart regular rate and rhythm. Abdomen soft nondistended with upper abdominal tenderness. No rebound. No guarding. No peritoneal findings. Brief ED course/MDM: I discussed this case with bariatrics on-call, Dr. Garcia who will have his team evaluate patient in the ED but also request that we order CT scan with oral contrast. They plan for admission for IV fluids, pain control. Patient is admitted in fair condition. All diagnostic, treatment, and disposition decisions were made by myself in conjunction with the Resident. I also supervised elias portions of any procedures performed by the Resident. For all further details of the patient's emergency department visit, please see their documentation. (Comment: Please note this report has been produced using speech recognition software and may contain errors related to that system including errors in grammar, punctuation, and spelling, as well as words and phrases that may be inappropriate. If there are any questions or concerns please feel free to contact the dictating provider for clarification.) Rocco Thomason MD Acute Care [facility] Rocco Thomason MD 05/27/25 0947 documented in this encounter [facility] 05-27-2025 Physician Emergency department Note EMERGENCY DEPARTMENT ENCOUNTER Pt Name: Lexis Nguyen Birthdate 1985 Date of evaluation: 05/27/2025 ED Provider: DIVYA LOPEZ DO CHIEF COMPLAINT Chief Complaint Patient presents with Abdominal Pain Pt comes in stating that she had emergency surgery 1 week ago to fix adhesion that wrapped around intestines. Pt states pain is back and is worse this time HISTORY OF PRESENT ILLNESS (Location/Symptom, Timing/Onset, Context/Setting, Quality, Duration, Modifying Factors, Severity) Note limiting factors. I wore appropriate PPE for the entirety of this encounter. HPI Lexis Nguyen is a 40 y.o. who presents to the emergency department for epigastric abdominal pain that she rates 10 out of 10. States the pain woke her up from sleep today. She was seen here yesterday for similar complaint and discharged. Had a ex lap and adhesion lysis performed by Dr. Soto 1 week ago after being diagnosed with SBO. She has been vomiting and unable to hold down any fluids. Denies any diarrhea or fevers. States she has had multiple abdominal surgeries including cholecystectomy and appendectomy. Denies any chest pain or shortness of breath. Denies any dysuria. Nursing Notes were reviewed. Limitations to history: None Outside historians: Significant other REVIEW OF SYSTEMS Review of Systems Pertinent positives and negatives as per HPI. PAST MEDICAL HISTORY Medical History[1] SURGICAL HISTORY Surgical History[2] CURRENT MEDICATIONS Current Discharge Medication List CONTINUE these medications which have NOT CHANGED Details amitriptyline (Elavil) 25 MG tablet Take 25 mg by mouth Nightly. ARIPiprazole (Abilify) 5 MG tablet Take 5 mg by mouth daily. calcium citrate 1040 MG tablet Take by mouth 3 times a day. cholecalciferol (Vitamin D-3) 25 MCG (1000 UT) tablet Take 1,000 Units by mouth in the morning. DULoxetine (Cymbalta) [address] capsule Take 60 mg by mouth 2 times daily. lacosamide (Vimpat) 150 mg tablet tablet Take 200 mg by mouth 2 times daily. LORazepam (Ativan) 0.5 MG tablet lorazepam 0.5 mg tablet metFORMIN (Glucophage) 500 MG tablet Take 500 mg by mouth daily. methocarbamol (Robaxin) 500 MG tablet Take 1 tablet (500 mg) by mouth 2 times daily for 10 days. Qty: 20 tablet, Refills: 0 Multiple Vitamins-Minerals (Oncovite) tablet Take 1 tablet by mouth in the morning and 1 tablet in the evening. norethindrone (Ortho Micronor) 0.35 MG tablet Take 1 tablet (0.35 mg) by mouth daily. Qty: 84 tablet, Refills: 3 Associated Diagnoses: Left lower quadrant abdominal pain; Hemorrhagic ovarian cyst ondansetron (Zofran) 4 MG tablet Take 1 tablet (4 mg) by mouth every 8 hours as needed for nausea or vomiting for up to 7 days. Qty: 21 tablet, Refills: 0 Associated Diagnoses: Abdominal pain, epigastric; Postoperative pain oxyCODONE-acetaminophen (Percocet) 5-325 MG tablet Take 1 tablet by mouth every 6 hours as needed for severe pain (7-10) for up to 5 days. Qty: 12 tablet, Refills: 0 Associated Diagnoses: Postoperative abdominal pain SEMAGLUTIDE, 1 MG/DOSE, SC Inject 1 mL under the skin 1 (one) time per week. ALLERGIES Nortriptyline, Nsaids, Other, Gabapentin, and Penicillins FAMILY HISTORY Family History[3] SOCIAL HISTORY Social History[4] SCREENINGS PHYSICAL EXAM ED Triage Vitals [05/27/25 0838] Temp Heart Rate Resp BP 36.4 C (97.5 F) 88 18 117/87 SpO2 Temp Source Heart Rate Source Patient Position 100 % Temporal Monitor -- BP Location FiO2 (%) -- -- Physical Exam Constitutional: General: She is not in acute distress. Appearance: Normal appearance. HENT: Head: Normocephalic and atraumatic. Right Ear: External ear normal. Left Ear: External ear normal. Nose: No congestion or rhinorrhea. Mouth/Throat: Mouth: Mucous membranes are moist. Pharynx: Oropharynx is clear. Eyes: Extraocular Movements: Extraocular movements intact. Pupils: Pupils are equal, round, and reactive to light. Cardiovascular: Rate and Rhythm: Normal rate and regular rhythm. Pulses: Normal pulses. Heart sounds: Normal heart sounds. Pulmonary: Effort: Pulmonary effort is normal. No respiratory distress. Breath sounds: Normal breath sounds. Abdominal: General: There is no distension. Palpations: Abdomen is soft. Tenderness: There is abdominal tenderness in the epigastric area. Musculoskeletal: General: No swelling or deformity. Normal range of motion. Cervical back: Normal range of motion. Skin: General: Skin is warm and dry. Capillary Refill: Capillary refill takes less than 2 seconds. Findings: No rash. Neurological: Mental Status: She is alert and oriented to person, place, and time. Mental status is at baseline. Psychiatric: Mood and Affect: Mood normal. Behavior: Behavior normal. DIAGNOSTIC RESULTS RADIOLOGY (Per Emergency Physician): Interpretation per the Radiologist below, if available at the time of this note: CT abdomen pelvis wo IV contrast (Results Pending) LABS: Labs Reviewed CBC WITH AUTO DIFFERENTIAL - Abnormal Result Value Auto WBC 8.4 RBC 3.95 Hemoglobin 12.1 Hematocrit 37.2 MCV 94.2 MCH 30.6 MCHC 32.5 RDW 13.4 Platelets 205 MPV 9.9 nRBC 0.0 Neutrophils Relative 79.8 Lymphocytes Relative 13.4 (*) Monocytes Relative 5.3 Eosinophils Relative 0.7 Basophils Relative 0.4 Immature Grans % 0.4 Neutrophils Absolute 6.7 Lymphocytes Absolute 1.1 Monocytes Absolute 0.4 Eosinophils Absolute 0.1 Basophils Absolute 0.0 Immature Grans Absolute 0.0 LIPASE - Normal LIPASE 18 COMPREHENSIVE METABOLIC PANEL POCT GLUCOSE METER POCT GLUCOSE METER POCT GLUCOSE METER All other labs were within normal range or not returned as of this dictation. EMERGENCY DEPARTMENT COURSE and DIFFERENTIAL DIAGNOSIS/MDM: Vitals: Vitals: 05/27/25 0838 05/27/25 0838 BP: 117/87 Pulse: 88 Resp: 18 Temp: 36.4 C (97.5 F) TempSrc: Temporal SpO2: 100% Weight: 109 kg (240 lb) Height: 1.626 m (5' 4) The patient presented with a chief complaint of abd pain. The differential diagnosis associated with this patient's presentation includes SBO, postop pain, new intra-abdominal problem. Our workup consisted of ordering/reviewing labs and surgery consult. CBC normal. Lipase CMP pending at this time. Will order CT pelvis with oral contrast per surgery request. Given Zofran Dilaudid for symptom control. Surgery has accepted patient onto their service. Unknown cause of abdominal pain at this time. Diagnoses as of 05/27/25 0959 Abdominal pain External records reviewed: Had adhesion lysis from SBO 1 week ago. Diagnostics interpreted by me: none Discussions with other clinicians: Optical Dispenser surgery Chronic conditions impacting care: Multiple abdominal surgeries Social determinants of health affecting care: none ED Medications managed: Medications sodium chloride 0.9 % bolus 1,000 mL (1,000 mL IntraVENous New Bag 05/27/25 0914) ondansetron ODT (Zofran-ODT) disintegrating tablet 4 mg (has no administration in time range) Or ondansetron (Zofran) injection 4 mg (has no administration in time range) enoxaparin (Lovenox) syringe 30 mg (has no administration in time range) lactated Ringer's (LR) infusion (has no administration in time range) HYDROmorphone (Dilaudid) injection 0.25 mg (has no administration in time range) Or HYDROmorphone (Dilaudid) injection 0.5 mg (has no administration in time range) acetaminophen (Ofirmev) IVPB 1,000 mg (has no administration in time range) Insulin Lispro (Humalog) injection 0-12 Units (has no administration in time range) glucose oral gel 15 g (has no administration in time range) dextrose 50 % solution 12.5 g (has no administration in time range) glucagon (human recombinant) injection 1 mg (has no administration in time range) dextrose 5 % infusion (has no administration in time range) lacosamide (Vimpat) 200 mg in sodium chloride 70 mL IVPB (has no administration in time range) naloxone (Narcan) injection 0.4 mg (has no administration in time range) HYDROmorphone (Dilaudid) injection 0.5 mg (0.5 mg IntraVENous Given 05/27/25 0920) diatrizoate meglumine-sodium (Gastrografin) 66-10 % solution 30 mL (30 mL Oral Given 05/27/25 0936) ondansetron (Zofran) injection 4 mg (4 mg IntraVENous Given 05/27/2537) Prescription drugs considered: Dilaudid PROCEDURES: Unless otherwise noted below, none Procedures FINAL IMPRESSION 1. Abdominal pain DISPOSITION Admit 05/27/2025 09:29:42 AM PATIENT REFERRED TO: No follow-up provider specified. DISCHARGE MEDICATIONS: Current Discharge Medication List (Comment: Please note this report has been produced using speech recognition software and may contain errors related to that system including errors in grammar, punctuation, and spelling, as well as words and phrases that may be inappropriate. If there are any questions or concerns please feel free to contact the dictating provider for clarification.) DIVYA LOPEZ DO (electronically signed) Emergency Medicine Provider [1] Past Medical History: Diagnosis Date Abdominal pain Anxiety Arthritis Back pain Blurred vision Depression GERD (gastroesophageal reflux disease) H/O gastric bypass 02/07/2025 [facility] 2013 [place] Hip pain Intestinal malabsorption 02/07/2025 Knee pain Seizures (HCC) SOB (shortness of breath) [2] Past Surgical History: Procedure Laterality Date APPENDECTOMY BRAIN SURGERY CLAVICLE SURGERY FRACTURE SURGERY GALLBLADDER SURGERY GASTRIC BYPASS 01/23/2014 [facility] - Dr Sumeet Mar [place]. HYSTERECTOMY OTHER SURGICAL HISTORY 05/20/2025 LAPAROSCOPY, DIAGNOSTI TONSILLECTOMY [3] Family History Problem Relation Name Age of Onset Obesity Paternal Grandmother Diabetes Paternal Grandmother Hypertension Paternal Grandmother Obesity Maternal Grandmother Hypertension Maternal Grandmother Obesity Maternal Grandfather Diabetes Maternal Grandfather Hypertension Maternal Grandfather Heart disease Maternal Grandfather Arthritis Father Raymond Cancer Father Raymond Depression Father Raymond Diabetes Father Raymond Hypertension Father Raymond Mental illness Father Raymond Stroke Father Raymond Obesity Father Raymond Asthma Mother Sarah COPD Mother Sarah Obesity Mother Sarah Hypertension Mother Sarah Obesity Brother Hypertension Brother Breast cancer Neg Hx Ovarian cancer Neg Hx [4] Social History Socioeconomic History Marital status: Tobacco Use Smoking status: Never Smokeless tobacco: Never Substance and Sexual Activity Alcohol use: Not Currently Drug use: Yes Types: Marijuana Comment: medical marijuana Sexual activity: Yes Partners: Male control/protection: Female Sterilization Comment: Hysterectomy Social Drivers of Health Financial Resource Strain: Low Risk (03/26/2025) Overall Financial Resource Strain (CARDIA) Difficulty of Paying Living Expenses: Not very hard Food Insecurity: No Food Insecurity (03/26/2025) Hunger Vital Sign Worried About Running Out of Food in the Last Year: Never true Ran Out of Food in the Last Year: Never true Transportation Needs: No Transportation Needs (05/21/2025) PRAPARE - Transportation Lack of Transportation (Medical): No Lack of Transportation (Non-Medical): No Recent Concern: Transportation Needs - Unmet Transportation Needs (03/26/2025) PRAPARE - Transportation Lack of Transportation (Medical): Yes Lack of Transportation (Non-Medical): No Physical Activity: Insufficiently Active (03/26/2025) Exercise Vital Sign Days of Exercise per Week: 2 days Minutes of Exercise per Session: 30 min Stress: No Stress Concern Present (03/26/2025) [place] - Occupational Stress Questionnaire Feeling of Stress : Only a little Social Connections: Moderately Isolated (03/26/2025) Social Connection and Isolation Panel [NHANES] Frequency of Communication with Friends and Family: More than three times a week Frequency of Social Gatherings with Friends and Family: Once a week Attends Cheondoism Services: Never Active Member of Clubs or Organizations: No Attends Club or Organization Meetings: Never Marital Status: Intimate Partner Violence: Not At Risk (05/21/2025) Humiliation, Afraid, Rape, and Kick questionnaire Fear of Current or Ex-Partner: No Emotionally Abused: No Physically Abused: No Sexually Abused: No Housing Stability: Low Risk (05/21/2025) Housing Stability Vital Sign Unable to Pay for Housing in the Last Year: No Number of Times Moved in the Last Year: 0 Homeless in the Last Year: No Divya Lopez DO Resident 05/27/25 0959 Cosigned by Rocco Thomason MD at 05/27/2025 10:42 AM EDT [employer] Phone: 05-27-2025 Physician Emergency department Note Emergency Department Encounter [facility] EMERGENCY DEPT Patient: Lexis Nguyen : 1985 Date of Evaluation: 05/27/2025 ED Supervising Physician: Rocco Thomason MD I personally evaluated Lexis Nguyen and made/approved the management plan and take responsibility for the patient management. This will serve as my Supervisory note and shared attestation. I did perform a substantive portion of the visit including all aspects of the Medical Decision Making. I wore appropriate PPE for the entirety of this encounter. In brief, Lexis Nguyen is a 40 y.o. that presents to the emergency department with upper abdominal pain associate with nausea and vomiting. Patient was seen yesterday for similar and had CT scan that did not show any signs of obstruction. She is 1 week status post laparoscopic surgery to takedown adhesions that were causing a small bowel obstruction. She is several years status post Krystal-en-Y gastric bypass surgery. States her pain has worsened since last night as has been vomiting. No blood in the emesis. No fevers Focused exam: Awake and alert. Afebrile. Nontoxic. Lungs clear to auscultation. Heart regular rate and rhythm. Abdomen soft nondistended with upper abdominal tenderness. No rebound. No guarding. No peritoneal findings. Brief ED course/MDM: I discussed this case with bariatrics on-call, Dr. Garcia who will have his team evaluate patient in the ED but also request that we order CT scan with oral contrast. They plan for admission for IV fluids, pain control. Patient is admitted in fair condition. All diagnostic, treatment, and disposition decisions were made by myself in conjunction with the Resident. I also supervised elias portions of any procedures performed by the Resident. For all further details of the patient's emergency department visit, please see their documentation. (Comment: Please note this report has been produced using speech recognition software and may contain errors related to that system including errors in grammar, punctuation, and spelling, as well as words and phrases that may be inappropriate. If there are any questions or concerns please feel free to contact the dictating provider for clarification.) Rocco Thomason MD Acute [facility] Rocco Thomason MD 05/27/25 0947 [facility] [employer] Work Phone: 05-26-2025 Emergency department Note Discharge instructions discussed with patient at this time. All questions answered. Patient instructed to follow up with patient's surgeon. Vitals stable, IV removed, gauze and tape placed over insertion site. Patient instructed to belt picker script sent to pharmacy for percocet and educated on how and when to take medications. Also instructed to take laxatives to get bowels moving. Verbalizes understanding. Ambulates to ED lobby without complications. [facility] 05-26-2025 Emergency department Note Discharge instructions discussed with patient at this time. All questions answered. Patient instructed to follow up with patient's surgeon. Vitals stable, IV removed, gauze and tape placed over insertion site. Patient instructed to belt picker script sent to pharmacy for percocet and educated on how and when to take medications. Also instructed to take laxatives to get bowels moving. Verbalizes understanding. Ambulates to ED lobby without complications. Emergency Department Encounter [facility] EM[facility]GENCY DEPT Patient: Lexis Nguyen : 1985 Date of Evaluation: 05/26/2025 ED Supervising Physician: Serafin Harley MD I personally evaluated Lexis Nguyen and made/approved the management plan and take responsibility for the patient management. This will serve as my Supervisory note and shared attestation. I did perform a substantive portion of the visit including all aspects of the Medical Decision Making. I wore appropriate PPE for the entirety of this encounter. In brief, Lexis Nguyen is a 40 y.o. that presents to the emergency department with abdominal pain and nausea. The patient just had abdominal surgery is beginning of this past week for adhesions. She was doing fine up until today. She was at the store and she sneezed multiple times. She developed a sharp pain in the upper abdomen with nausea. No vomiting or diarrhea. No urinary complaints. No fevers or chills. No chest pain or trouble breathing. No other associated symptoms. Focused exam: Patient appears uncomfortable from pain although nontoxic. She is awake and alert. Lungs are clear to auscultation. Heart regular rate and rhythm. Abdomen shows palpable tenderness in the epigastrium with mild guarding, but no real rebound. Laparoscopy sites appear intact. There is no palpable hernia. The rest of her abdomen is benign. Skin is warm and dry. She is awake and alert with no focal neurologic findings. The rest of her preliminary exam otherwise unremarkable. Brief ED course/MDM: Patient will be medicated for pain. Repeat imaging and lab work will be obtained. Patient was medicated for pain as mention. Her lab work was generally unremarkable. CT of the abdomen and pelvis showed nothing acute. At this point we will reach out to the on-call surgeon from [facility] and discussed the case with them. Disposition will be pending patient's response to treatment as well as surgeons input. Please refer to PILAR dictation for further details. Diagnostics interpreted by me: none I personally discussed the patient's management with other clinicians: none All diagnostic, treatment, and disposition decisions were made by myself in conjunction with the PILAR. For all further details of the patient's emergency department visit, please see their documentation. (Comment: Please note this report has been produced using speech recognition software and may contain errors related to that system including errors in grammar, punctuation, and spelling, as well as words and phrases that may be inappropriate. If there are any questions or concerns please feel free to contact the dictating provider for clarification.) Serafin Harley MD [employer] Serafin Harley MD 05/26/25 1333 Serafin Harley MD 05/26/25 1421 EMERGENCY DEPARTMENT ENCOUNTER Pt Name: Lexis Nguyen Birthdate 1985 Date of evaluation: 05/26/2025 ED Provider: Sumeet Trevino APRN - FER CHIEF COMPLAINT Chief Complaint Patient presents with Abdominal Pain Recent abdominal surgery. Pain started at 0900. Nausea. 40-year-old female arrives to the emergency department with a chief complaint of increasing mid epigastric abdominal pain. The patient had the same type of abdominal pain approximately 1 week ago, had a questionable bowel obstruction and had laparoscopic exploratory surgery done on 05/20. The patient states that the pain was minor postoperative and has been increasing. The patient endorses midline epigastric pain worse on palpation and nonradiating. The laparoscopic incisions are free of any signs of dehiscence or infection. The patient states that the pain is a 9 out of 10 and is feeling nauseous without vomiting. Patient endorses chills at home with no documented fever. Patient denies any chest pain or shortness of breath and is in obvious discomfort at the time of assessment PmHx, PsHx, Allergies, Family Hx, social Hx reviewed as documented A complete 10 point review of systems was performed and is negative except for as mentioned in the HPI. Physical Exam: General: Patient is AAOx3, appears well developed, well nourished, is a good historian, answers questions appropriately HEENT: head normocephalic, atraumatic, PERRLA, EOMs intact, oropharynx without erythema or exudate, buccal mucosa intact without lesions, TMs unremarkable, nose is patent bilateral Neck: supple, full ROM, negative for lymphadenopathy, JVD, thyromegaly, tracheal deviation, nuccal rigidity Pulmonary: CTAB, no accessory muscle use, able to speak full clear sentences Cardiac: HRRR, no murmurs, rubs or gallops GI: Mid upper abdominal pain worse with palpation as well as laparoscopic postsurgical incisions per HPI otherwise soft, non-tender, obese, non-distended, BS + x 4, no masses or organomegaly, no guarding or CVA tenderness noted, negative herrera's, mcburney's Musculoskeletal: full weight bearing, KILPATRICK, no joint effusions, clubbing or edema noted Skin: intact, no lesions or rashes noted, turgor is good. Neuro: patient follow commands, cranial nerves 2-12 grossly intact, motor strengths 5/5 upper and lower extremities, DTR's and sensation are symmetrical. No focal deficits. Rectal/: No urinary burning, urgency, change in frequency. Patient has no rectal complaints SCREENINGS Diagnoses as of 05/26/25 1530 Postoperative abdominal pain Drug-induced constipation The patient has had the following imaging during this ER visit: CT abdomen pelvis w contrast Final Result No acute findings are seen on this examination to explain the patient's pain. Report Dictated on Electronically Signed By: Alfredito Gay MD Electronically Signed Date/Time: 05/26/2025 1:27 PM EDT Patient History Medical History[1] Surgical History[2] Family History[3] ED Social History[4] EMERGENCY DEPARTMENT COURSE and DIFFERENTIAL DIAGNOSIS/MDM: Vitals: Vitals: 05/26/25 1142 05/26/25 1144 05/26/25 1350 BP: 135/78 106/79 Pulse: 99 88 Resp: 20 18 Temp: 37.2 C (98.9 F) TempSrc: Temporal SpO2: 100% 100% Weight: 109 kg (240 lb) Height: 1.626 m (5' 4) MDM: Patient seen in the emergency department in conjunction with Dr. Harley Primary consideration given the patient's recent surgery would be post surgical complication, seroma, pain or other causative pathology. Other consideration with the patient would be opioid induced constipation given the patient has not had a bowel movement in the last 6 days, blood count abnormality, systemic infection. CT abdomen pelvis with IV contrast as well as diagnostic blood work will be used to further evaluate. Patient initially given 4 mg of IV morphine, 4 mg of IV Zofran The patient's diagnostic blood work shows no acute abnormality, no signs of systemic infection. Initially the medications given in the emergency department were effective for the patient's pain, however the pain did come back, patient given 1 mg of IV Dilaudid The CT scan is negative for any acute abnormality or obvious complications. The patient's surgeon at [facility] was consulted, the patient events prior to arrival as well as ED course were reviewed, no complication was seen and the patient is appropriate for outpatient follow-up. The patient states that this is her last day of her oxycodone, although the patient has had a recent chronic prescription of tramadol filled, patient will be given 4 additional days of oxycodone for her severe pain. Further much time was spent at the bedside talking about opioid-induced constipation, patient has MiraLAX at home, patient will take twice the recommended dose twice a day until such time as a bowel movement is appreciated and patient will adjust dose down as needed. Patient will continue to take stool softener as well Patient is amenable to the plan of discharge. Medications sodium chloride 0.9 % bolus 1,000 mL (0 mL IntraVENous Stopped 05/26/25 1350) morphine injection 4 mg (4 mg IntraVENous Given 05/26/25 1230) ondansetron (Zofran) injection 4 mg (4 mg IntraVENous Given 05/26/25 1230) iopamidol (Isovue-370) 76 % injection 75 mL (75 mL IntraVENous Given 05/26/25 1317) HYDROmorphone (Dilaudid) injection 1 mg (1 mg IntraVENous Given 05/26/25 1350) REVAL: CONSULTS: None PROCEDURES: Unless otherwise noted below, none Procedures FINAL IMPRESSION 1. Postoperative abdominal pain 2. Postoperative pain 3. Drug-induced constipation DISPOSITION Discharge 05/26/2025 03:19:34 PM PATIENT REFERRED TO: No follow-up provider specified. DISCHARGE MEDICATIONS: New Prescriptions OXYCODONE-ACETAMINOPHEN (PERCOCET) 5-325 MG TABLET Take 1 tablet by mouth every 6 hours as needed for severe pain (7-10) for up to 5 days. (Comment: Please note this report has been produced using speech recognition software and may contain errors related to that system including errors in grammar, punctuation, and spelling, as well as words and phrases that may be inappropriate. If there are any questions or concerns please feel free to contact the dictating provider for clarification.) KRISHAN Rich CNP (electronically signed) Emergency Medicine Provider [1] Past Medical History: Diagnosis Date Abdominal pain Anxiety Arthritis Back pain Blurred vision Depression GERD (gastroesophageal reflux disease) H/O gastric bypass 02/07/2025 [facility]YGB 2013 [place] Hip pain Intestinal malabsorption 02/07/2025 Knee pain Seizures (HCC) SOB (shortness of breath) [2] Past Surgical History: Procedure Laterality Date APPENDECTOMY BRAIN SURGERY CLAVICLE SURGERY FRACTURE SURGERY GALLBLADDER SURGERY GASTRIC BYPASS 01/23/2014 [facility] - Dr Sumeet Mar Austin. HYSTERECTOMY OTHER SURGICAL HISTORY 05/20/2025 LAPAROSCOPY, DIAGNOSTI TONSILLECTOMY [3] Family History Problem Relation Name Age of Onset Obesity Paternal Grandmother Diabetes Paternal Grandmother Hypertension Paternal Grandmother Obesity Maternal Grandmother Hypertension Maternal Grandmother Obesity Maternal Grandfather Diabetes Maternal Grandfather Hypertension Maternal Grandfather Heart disease Maternal Grandfather Arthritis Father Raymond Cancer Father Raymond Depression Father Raymond Diabetes Father Raymond Hypertension Father Raymond Mental illness Father Raymond Stroke Father Raymond Obesity Father Raymond Asthma Mother Sarah COPD Mother Sarah Obesity Mother Sarah Hypertension Mother Sarah Obesity Brother Hypertension Brother Breast cancer Neg Hx Ovarian cancer Neg Hx [4] Social History Tobacco Use Smoking status: Never Smokeless tobacco: Never Substance Use Topics Alcohol use: Not Currently Drug use: Yes Types: Marijuana Comment: medical marijuana KRISHAN Rich CNP 05/26/25 1531 Cosigned by Serafin Harley MD at 05/26/2025 3:51 PM EDT documented in this encounter [facility] 05-26-2025 Hospital Discharg e instructions KRISHAN Rich CNP - 05/26/2025 3:26 PM EDT As discussed, please follow-up with your surgeon, call Wednesday and make sure they know you are in the emergency department and ask for expedited follow-up appointment. It is imperative that you get your bowels moving with laxative as discussed The following attachments cannot be sent through Care Everywhere.Dealing with Constipation from the Drugs You Take (Montenegrin)Severe Abdominal Pain Discharge Instructions, Adult (Montenegrin)documented in this encounter [facility] 05-26-2025 Physician Emergency department Note Emergency Department Encounter [facility] EMERGENCY DEPT Patient: Lexis Nguyen : 1985 Date of Evaluation: 05/26/2025 ED Supervising Physician: Serafin Harley MD I personally evaluated Lexis Nguyen and made/approved the management plan and take responsibility for the patient management. This will serve as my Supervisory note and shared attestation. I did perform a substantive portion of the visit including all aspects of the Medical Decision Making. I wore appropriate PPE for the entirety of this encounter. In brief, Lexis Nguyen is a 40 y.o. that presents to the emergency department with abdominal pain and nausea. The patient just had abdominal surgery is beginning of this past week for adhesions. She was doing fine up until today. She was at the store and she sneezed multiple times. She developed a sharp pain in the upper abdomen with nausea. No vomiting or diarrhea. No urinary complaints. No fevers or chills. No chest pain or trouble breathing. No other associated symptoms. Focused exam: Patient appears uncomfortable from pain although nontoxic. She is awake and alert. Lungs are clear to auscultation. Heart regular rate and rhythm. Abdomen shows palpable tenderness in the epigastrium with mild guarding, but no real rebound. Laparoscopy sites appear intact. There is no palpable hernia. The rest of her abdomen is benign. Skin is warm and dry. She is awake and alert with no focal neurologic findings. The rest of her preliminary exam otherwise unremarkable. Brief ED course/MDM: Patient will be medicated for pain. Repeat imaging and lab work will be obtained. Patient was medicated for pain as mention. Her lab work was generally unremarkable. CT of the abdomen and pelvis showed nothing acute. At this point we will reach out to the on-call surgeon from [facility] and discussed the case with them. Disposition will be pending patient's response to treatment as well as surgeons input. Please refer to PILAR dictation for further details. Diagnostics interpreted by me: none I personally discussed the patient's management with other clinicians: none All diagnostic, treatment, and disposition decisions were made by myself in conjunction with the PILAR. For all further details of the patient's emergency department visit, please see their documentation. (Comment: Please note this report has been produced using speech recognition software and may contain errors related to that system including errors in grammar, punctuation, and spelling, as well as words and phrases that may be inappropriate. If there are any questions or concerns please feel free to contact the dictating provider for clarification.) Serafin Harley MD Acute Care [facility] Serafin Harley MD 05/26/25 1333 Serafin Harley MD 05/26/25 1421 [facility] 05-26-2025 Physician Emergency department Note EMERGENCY DEPARTMENT ENCOUNTER Pt Name: Lexis Nguyen Birthdate 1985 Date of evaluation: 05/26/2025 ED Provider: Sumeet Trevino APRN - FER CHIEF COMPLAINT Chief Complaint Patient presents with Abdominal Pain Recent abdominal surgery. Pain started at 0900. Nausea. 40-year-old female arrives to the emergency department with a chief complaint of increasing mid epigastric abdominal pain. The patient had the same type of abdominal pain approximately 1 week ago, had a questionable bowel obstruction and had laparoscopic exploratory surgery done on 05/20. The patient states that the pain was minor postoperative and has been increasing. The patient endorses midline epigastric pain worse on palpation and nonradiating. The laparoscopic incisions are free of any signs of dehiscence or infection. The patient states that the pain is a 9 out of 10 and is feeling nauseous without vomiting. Patient endorses chills at home with no documented fever. Patient denies any chest pain or shortness of breath and is in obvious discomfort at the time of assessment PmHx, PsHx, Allergies, Family Hx, social Hx reviewed as documented A complete 10 point review of systems was performed and is negative except for as mentioned in the HPI. Physical Exam: General: Patient is AAOx3, appears well developed, well nourished, is a good historian, answers questions appropriately HEENT: head normocephalic, atraumatic, PERRLA, EOMs intact, oropharynx without erythema or exudate, buccal mucosa intact without lesions, TMs unremarkable, nose is patent bilateral Neck: supple, full ROM, negative for lymphadenopathy, JVD, thyromegaly, tracheal deviation, nuccal rigidity Pulmonary: CTAB, no accessory muscle use, able to speak full clear sentences Cardiac: HRRR, no murmurs, rubs or gallops GI: Mid upper abdominal pain worse with palpation as well as laparoscopic postsurgical incisions per HPI otherwise soft, non-tender, obese, non-distended, BS + x 4, no masses or organomegaly, no guarding or CVA tenderness noted, negative herrera's, mcburney's Musculoskeletal: full weight bearing, KILPATRICK, no joint effusions, clubbing or edema noted Skin: intact, no lesions or rashes noted, turgor is good. Neuro: patient follow commands, cranial nerves 2-12 grossly intact, motor strengths 5/5 upper and lower extremities, DTR's and sensation are symmetrical. No focal deficits. Rectal/: No urinary burning, urgency, change in frequency. Patient has no rectal complaints SCREENINGS Diagnoses as of 05/26/25 1530 Postoperative abdominal pain Drug-induced constipation The patient has had the following imaging during this ER visit: CT abdomen pelvis w contrast Final Result No acute findings are seen on this examination to explain the patient's pain. Report Dictated on Electronically Signed By: Alfredito Gay MD Electronically Signed Date/Time: 05/26/2025 1:27 PM EDT Patient History Medical History[1] Surgical History[2] Family History[3] ED Social History[4] EMERGENCY DEPARTMENT COURSE and DIFFERENTIAL DIAGNOSIS/MDM: Vitals: Vitals: 05/26/25 1142 05/26/25 1144 05/26/25 1350 BP: 135/78 106/79 Pulse: 99 88 Resp: 20 18 Temp: 37.2 C (98.9 F) TempSrc: Temporal SpO2: 100% 100% Weight: 109 kg (240 lb) Height: 1.626 m (5' 4) MDM: Patient seen in the emergency department in conjunction with Dr. Harley Primary consideration given the patient's recent surgery would be post surgical complication, seroma, pain or other causative pathology. Other consideration with the patient would be opioid induced constipation given the patient has not had a bowel movement in the last 6 days, blood count abnormality, systemic infection. CT abdomen pelvis with IV contrast as well as diagnostic blood work will be used to further evaluate. Patient initially given 4 mg of IV morphine, 4 mg of IV Zofran The patient's diagnostic blood work shows no acute abnormality, no signs of systemic infection. Initially the medications given in the emergency department were effective for the patient's pain, however the pain did come back, patient given 1 mg of IV Dilaudid The CT scan is negative for any acute abnormality or obvious complications. The patient's surgeon at [facility] was consulted, the patient events prior to arrival as well as ED course were reviewed, no complication was seen and the patient is appropriate for outpatient follow-up. The patient states that this is her last day of her oxycodone, although the patient has had a recent chronic prescription of tramadol filled, patient will be given 4 additional days of oxycodone for her severe pain. Further much time was spent at the bedside talking about opioid-induced constipation, patient has MiraLAX at home, patient will take twice the recommended dose twice a day until such time as a bowel movement is appreciated and patient will adjust dose down as needed. Patient will continue to take stool softener as well Patient is amenable to the plan of discharge. Medications sodium chloride 0.9 % bolus 1,000 mL (0 mL IntraVENous Stopped 05/26/25 1350) morphine injection 4 mg (4 mg IntraVENous Given 05/26/25 1230) ondansetron (Zofran) injection 4 mg (4 mg IntraVENous Given 05/26/25 1230) iopamidol (Isovue-370) 76 % injection 75 mL (75 mL IntraVENous Given 05/26/25 1317) HYDROmorphone (Dilaudid) injection 1 mg (1 mg IntraVENous Given 05/26/25 1350) REVAL: CONSULTS: None PROCEDURES: Unless otherwise noted below, none Procedures FINAL IMPRESSION 1. Postoperative abdominal pain 2. Postoperative pain 3. Drug-induced constipation DISPOSITION Discharge 05/26/2025 03:19:34 PM PATIENT REFERRED TO: No follow-up provider specified. DISCHARGE MEDICATIONS: New Prescriptions OXYCODONE-ACETAMINOPHEN (PERCOCET) 5-325 MG TABLET Take 1 tablet by mouth every 6 hours as needed for severe pain (7-10) for up to 5 days. (Comment: Please note this report has been produced using speech recognition software and may contain errors related to that system including errors in grammar, punctuation, and spelling, as well as words and phrases that may be inappropriate. If there are any questions or concerns please feel free to contact the dictating provider for clarification.) KRISHAN Rich CNP (electronically signed) Emergency Medicine Provider [1] Past Medical History: Diagnosis Date Abdominal pain Anxiety Arthritis Back pain Blurred vision Depression GERD (gastroesophageal reflux disease) H/O gastric bypass 02/07/2025 [facility] 2013 [place] Hip pain Intestinal malabsorption 02/07/2025 Knee pain Seizures (HCC) SOB (shortness of breath) [2] Past Surgical History: Procedure Laterality Date APPENDECTOMY BRAIN SURGERY CLAVICLE SURGERY FRACTURE SURGERY GALLBLADDER SURGERY GASTRIC BYPASS 01/23/2014 [facility] - Dr Sumeet Mar [place]. HYSTERECTOMY OTHER SURGICAL HISTORY 05/20/2025 LAPAROSCOPY, DIAGNOSTI TONSILLECTOMY [3] Family History Problem Relation Name Age of Onset Obesity Paternal Grandmother Diabetes Paternal Grandmother Hypertension Paternal Grandmother Obesity Maternal Grandmother Hypertension Maternal Grandmother Obesity Maternal Grandfather Diabetes Maternal Grandfather Hypertension Maternal Grandfather Heart disease Maternal Grandfather Arthritis Father Raymond Cancer Father Raymond Depression Father Raymond Diabetes Father Raymond Hypertension Father Raymond Mental illness Father Raymond Stroke Father Raymond Obesity Father Raymond Asthma Mother Sarah COPD Mother Sarah Obesity Mother Sarah Hypertension Mother Sarah Obesity Brother Hypertension Brother Breast cancer Neg Hx Ovarian cancer Neg Hx [4] Social History Tobacco Use Smoking status: Never Smokeless tobacco: Never Substance Use Topics Alcohol use: Not Currently Drug use: Yes Types: Marijuana Comment: medical marijuana KRISHAN Rich CNP 05/26/25 1531 Cosigned by Serafin Harley MD at 05/26/2025 3:51 PM EDT [facility] 05-22-2025 Note [facility] 05-22-2025 Plan of care note Problem: Pain - Adult Goal: Verbalizes/displays adequate comfort level or baseline comfort level Outcome: Completed Problem: Safety - Adult Goal: Free from fall injury Outcome: Completed Problem: Discharge Planning Goal: Discharge to home or other facility with appropriate resources Outcome: Completed [facility] 05-22-2025 Miscellaneous Notes Problem: Pain - Adult Goal: Verbalizes/displays adequate comfort level or baseline comfort level Outcome: Completed Problem: Safety - Adult Goal: Free from fall injury Outcome: Completed Problem: Discharge Planning Goal: Discharge to home or other facility with appropriate resources Outcome: Completed Problem: Pain - Adult Goal: Verbalizes/displays adequate comfort level or baseline comfort level Outcome: Progressing Care Management Progress Note Short Medical why still here: One day post op Dx lap with EDIL and small bowel resection. Planned Discharge Disposition: Home or Self Care Barriers/Today we still Wait: Attending completion of discharge workflow, Clinical stability, diet toleration, return of bowel function. Possible dc later today if clinically stable. Length of Stay (Days): 0 GMLOS: No GMLOS Documented OPERATIVE NOTE DATE OF PROCEDURE: 05/20/2025 SURGEON: Marco Antonio Soto MD SCREEN CUTTER AND TRIMMER: Dolly Gentile MD PREOPERATIVE DIAGNOSIS: small bowel obstruction, possible internal hernia POSTOPERATIVE DIAGNOSIS: Small bowel obstruction OPERATION: diagnostic laparoscopy, lysis of adhesion ANESTHESIA: General anesthesia ESTIMATED BLOOD LOSS: minimal COMPLICATIONS: None SPECIMENS: abdominal adhesion PREOPERATIVE MEDICATIONS: 2g Ancef HISTORY: The patient is a 40 y.o. year old female with history of above preop diagnosis. I explained the risk, benefits, expected outcome, and alternatives to the procedure. Patient understands and is in agreement to proceed with operation. PROCEDURE: The patient was brought to the operating room and placed in supine position. After initiation of general anesthesia the patient was prepped and draped in usual sterile fashion. A time out was performed. A incision was made at Palmers point and a 5mm optical port was introduced into the abdominal cavity. The opening pressure was low. Abdomen insufflated to 15mm hg. We placed 3 additional 5 mm trocars, two supraumbilically and one in the RLQ. We examined the bowel and noticed an adhesion tethering a loop of bowel in the LUQ. The adhesion was sharply dissected and sent for permanent pathology. The RYGB was noted to be retrocolic. The krystal limb and BPL were run to the common channel with no acute abnormalities. The rest of the common channel was run to the cecum, where a Meckel's diverticulum was noted at the ileum. There bowel was pink and viable without significant dilation. At this time, we removed our instruments and desufflated the abdomen. The incisions were closed with 4-0 monocryl and steri strips. The patient tolerated the procedure well, was extubated, and sent to the recovery room in stable condition. Dolly Gentile MD General Surgery Resident 05/20/25 11:58 PM This note may have been dictated using VTM Medical Practice Edition 2.6 and/or [employer]d Voice Recognition Feature. The document was proofread; however, unrecognized voice recognition paperhanger apprentice errors may be present. Images from the original note were not included. MARCO ANTONIO SOTO MD , FACS, [facility] MINIMALLY INVASIVE & METABOLIC / BARIATRIC SURGERY [facility] OPERATIVE REPORT 05/20/25 PATIENT: Lexis Nguyen DATE OF : 1985 - PROCEDURE: LAPAROSCOPIC LYSIS OF ADHESIONS WITH RELEASE OF PARTIAL SMALL BOWEL OBSTRUCTION ([id number]) SURGEON: Marco Antonio Soto MD SCREEN CUTTER AND TRIMMER: Dolly Gentile MD PRE-OPERATIVE DIAGNOSES: Partial small bowel obstruction Concern for internal hernia History of LRYGB POST-OPERATIVE DIAGNOSES: Same with a solitary adhesive band of tissue causing partial obstruction and no evidence of internal hernia ANESTHESIA: General endotracheal Transversus Abdominis plane block FLUIDS: Crystalloid ESTIMATED BLOOD LOSS: Minimal URINE OUTPUT: Not recorded PREOPERATIVE MEDICATIONS: Pre-operative IV antibiotics: 2 gm cefazolin INDICATIONS FOR PROCEDURE: The patient is a 40 y.o. female with a history of LRYGB in [place] in 2013 and left upper quadrant abdominal pain and bloating. The patient has had a work up concerning for internal hernia and laparoscopic evaluation is warranted. The risks, benefits and options of the procedure and additional possible interventions were reviewed and all questions were answered to the patient's satisfaction. DESCRIPTION OF PROCEDURE: The patient was transported to the operating room and identified by name and number. The patient was placed on the operating room table in the supine position and general endotracheal anesthesia was administered by members of the anesthesia team. Following placement of sequential compression devices, the patients extremities were positioned and protected. The abdomen was prepped and draped in standard surgical fashion. An operating room team time out was performed confirming the identity of the patient and the planned procedure. Access to the abdominal cavity was obtained in the left upper quadrant at Leija's point using a 5-mm optical trocar. Pneumoperitoneum was established and a brief exploration of the abdominal cavity was performed. Findings included dilated caliber small bowel loops tethered over a solitary adhesive band from the mesentery to the abdominal, which was causing the obstruction. Additional 5-mm trocars were carefully placed under direct visualization, 1 at the umbilicus, 1 in the epigastric region and 1 on the patient's right side. We divided the adhesive band causing the obstruction and excised it, passing it off the field for pathology studies. We proceeded with evaluation of the pouch and gastrojejunostomy which appeared normal. The Krystal limb was run to the jejuno-jejunostomy which was intact. The Krystal limb was retro-colic. We then evaluated the biliopancreatic limb to the ligament of Treitz. The ileocecal junction was the identified and the common channel was carefully run from the terminal ileum all the way back to the jejunojejunostomy. The mesentery at the jejunojejunostomy was carefully evaluated and a mesenteric defect was not identified. The area between the colon and the Krystal limb mesentery was also carefully evaluated and a defect was not identified at Doyle's space. At the end of the operation, the trocars were carefully removed under direct visualization and the pneumoperitoneum was evacuated. Fascial defect were closed using 0-Vycril suture for 10-mm trocar sites and the skin incisions were closed using 4-0 Vycril suture in subcuticular fashion. This was followed by steri strips and sterile dressings. The needle, sponge and instrument counts were correct. The patient tolerated the procedure and the anesthesia well without any major complications. The patients was transported to the post-anesthesia care unit in stable condition. I was present for the entire duration of the procedure. [facility] - Data form Start Time: 22:16 Stop Time: 22:40 Vending Attendant: [x] Resident [] Fellow ASA Class: [] 1 [x] 2 [] 3 []4 [] 5 Surgical Approach: [x] Conventional laparoscopic Was the procedure converted to another approach? [] Yes [x] No Was the case aborted? [] Yes [x] No Was a drain placed at the time of the initial operation? [] Yes [x] No Was a swallow study performed the day of or the day after the procedure? [] Yes [x] No Was the anastomotic/staple line checked with a provocative test to assess for leak? [x] N/A Was this a stapling procedure: [] Yes [x] No Other Procedures: None Patient: Lexis Nguyen : 1985 Date of Evaluation: 05/20/2025 ED Supervising Physician: Abner Azul MD I personally evaluated Lexis Nguyen and made/approved the management plan and take responsibility for the patient management. This will serve as my Supervisory note and shared attestation. I did perform a substantive portion of the visit including all aspects of the Medical Decision Making. I wore appropriate PPE for the entirety of this encounter. In brief, Lexis Nguyen is a 40 y.o. that presents to the emergency department with abdominal pain and nausea. States she has a history of a Krystal-en-Y gastric bypass done 10 years ago. [place]. States that today she developed severe epigastric pain which she describes as sharp, ache, constant. Associated with nausea. Denies fever, diarrhea or vomiting at this time. Workup here in the department has been remarkable for a CT concerning for possible ileus. I am concerned for possible internal hernia given her symptoms. Will continue to treat her pain, consult bariatric surgery, and reassess. The differential diagnosis associated with this patient's presentation includes acute small bowel obstruction, acute pancreatitis, acute gastritis, acute ileus, acute internal hernia. Diagnostics interpreted by me: I personally discussed the patient's management with other clinicians: All diagnostic, treatment, and disposition decisions were made by myself in conjunction with the PILAR. For all further details of the patient's emergency department visit, please see their documentation. (Comment: Please note this report has been produced using speech recognition software and may contain errors related to that system including errors in grammar, punctuation, and spelling, as well as words and phrases that may be inappropriate. If there are any questions or concerns please feel free to contact the dictating provider for clarification.) Abner Azul MD Acute Care [employer] CHIEF COMPLAINT Chief Complaint Patient presents with Abdominal Pain Nursing Notes were reviewed. Limitations to history: None Outside historians: None REVIEW OF SYSTEMS Review of Systems Pertinent positives and negatives as per HPI. PAST MEDICAL HISTORY Medical History[1] SURGICAL HISTORY Surgical History[2] CURRENT MEDICATIONS Previous Medications AMITRIPTYLINE (ELAVIL) 25 MG TABLET Take 25 mg by mouth Nightly. ARIPIPRAZOLE (ABILIFY) 5 MG TABLET Take 5 mg by mouth daily. CALCIUM CITRATE 1040 MG TABLET Take by mouth 3 times a day. CHOLECALCIFEROL (VITAMIN D-3) 25 MCG (1000 UT) TABLET Take 1,000 Units by mouth in the morning. DULOXETINE (CYMBALTA) [address] CAPSULE Take 60 mg by mouth 2 times daily. LACOSAMIDE (VIMPAT) 150 MG TABLET TABLET Take 200 mg by mouth 2 times daily. LORAZEPAM (ATIVAN) 0.5 MG TABLET lorazepam 0.5 mg tablet METFORMIN (GLUCOPHAGE) 500 MG TABLET Take 500 mg by mouth daily. METHOCARBAMOL (ROBAXIN) 500 MG TABLET Take 1 tablet (500 mg) by mouth 2 times daily for 10 days. MULTIPLE VITAMINS-MINERALS (ONCOVITE) TABLET Take 1 tablet by mouth in the morning and 1 tablet in the evening. NORETHINDRONE (ORTHO MICRONOR) 0.35 MG TABLET Take 1 tablet (0.35 mg) by mouth daily. OXYCODONE (ROXICODONE) 5 MG IMMEDIATE RELEASE TABLET Take 1 tablet (5 mg) by mouth every 8 hours as needed for severe pain (7-10) for up to 13 doses. SEMAGLUTIDE, 1 MG/DOSE, SC Inject 1 mL under the skin 1 (one) time per week. TRAMADOL (ULTRAM) 50 MG TABLET Take 50 mg by mouth 2 times daily. ALLERGIES Nortriptyline, Nsaids, Other, Gabapentin, and Penicillins FAMILY HISTORY Family History[3] SOCIAL HISTORY Social History[4] SCREENINGS PHYSICAL EXAM ED Triage Vitals [05/20/25 1756] Temp Heart Rate Resp BP 36.4 C (97.5 F) 86 20 (!) 147/90 SpO2 Temp Source Heart Rate Source Patient Position 100 % Temporal Monitor Sitting BP Location FiO2 (%) Left arm -- Physical Exam Vitals and nursing note reviewed. Constitutional: General: She is in acute distress. Appearance: She is well-developed. HENT: Head: Normocephalic and atraumatic. Eyes: Conjunctiva/sclera: Conjunctivae normal. Cardiovascular: Rate and Rhythm: Normal rate and regular rhythm. Pulmonary: Effort: Pulmonary effort is normal. No respiratory distress. Abdominal: Palpations: Abdomen is soft. Comments: Epigastric/right upper quadrant tenderness to palpation Musculoskeletal: General: No swelling. Cervical back: Neck supple. Skin: General: Skin is warm and dry. Neurological: Mental Status: She is alert. Psychiatric: Mood and Affect: Mood normal. DIAGNOSTIC RESULTS Procedures/EKG: Physician EKG interpretation can be found in [facility] RADIOLOGY (Per Emergency Physician): Interpretation per the Radiologist below, if available at the time of this note: CT abdomen pelvis wo IV contrast Final Result Mild gaseous distention of bowel loops with evidence of bariatric surgery. Ileus is most likely Report Dictated on Electronically Signed By: Abner Ritchie MD Electronically Signed Date/Time: 05/20/2025 6:55 PM EDT ED BEDSIDE ULTRASOUND: Performed by ED Physician - none LABS: Labs Reviewed CBC WITH AUTO DIFFERENTIAL - Abnormal Result Value Auto WBC 11.3 (*) RBC 4.42 Hemoglobin 13.6 Hematocrit 41.0 MCV 92.8 MCH 30.8 MCHC 33.2 RDW 13.2 Platelets 270 MPV 9.7 nRBC 0.0 Neutrophils Relative 66.4 Lymphocytes Relative 24.6 Monocytes Relative 7.1 Eosinophils Relative 1.0 Basophils Relative 0.5 Immature Grans % 0.4 Neutrophils Absolute 7.5 Lymphocytes Absolute 2.8 Monocytes Absolute 0.8 Eosinophils Absolute 0.1 Basophils Absolute 0.1 Immature Grans Absolute 0.0 LIPASE - Abnormal LIPASE 59 (*) COMPLETE URINALYSIS WITH REFLEX TO CULTURE - Abnormal Color, Urine Colorless Clarity, Urine Clear pH, Urine 5.5 Leukocytes, Urine Negative Nitrite, Urine Negative Protein, Urine Negative Glucose, Urine Normal Bilirubin, Urine Negative Ketones, Urine Trace (*) Urobilinogen, Urine Normal Blood, Urine Negative SPECIFIC GRAVITY OF URINE (NUMERIC) 1.005 Narrative: A specimen with <=10 WBC is not consistent with inflammation. This specimen will not reflex to a urine culture. COMPREHENSIVE METABOLIC PANEL - Normal SODIUM 138 POTASSIUM 3.9 CHLORIDE 103 CARBON DIOXIDE 24 ANION GAP 11 UREA NITROGEN 8 CREATININE 0.70 GLUCOSE 85 CALCIUM 8.7 AST (SGOT) 20 ALT 21 ALKALINE PHOSPHATASE 100 ALBUMIN 3.7 BILIRUBIN, TOTAL 0.3 TOTAL PROTEIN 6.6 eGFR >90.0 HIGH SENSITIVITY TROPONIN, SERIAL BASELINE - Normal Troponin HS Serial Baseline <3 LACTIC ACID WITH REFLEX - Normal LACTIC ACID 0.7 HCG QUALITATIVE URINE HCG,URINE QUAL Negative Narrative: is the most common reason for HCG in urine, although choriocarcinoma, hydatidiform mole, and certain nontrophoblastic malignancies also result in detectable urinary HCG levels. Sensitivity = 20mIU/mL. All other labs were within normal range or not returned as of this dictation. EMERGENCY DEPARTMENT COURSE and DIFFERENTIAL DIAGNOSIS/MDM: Vitals: Vitals: 05/20/25 1756 BP: (!) 147/90 BP Location: Left arm Patient Position: Sitting Pulse: 86 Resp: 20 Temp: 36.4 C (97.5 F) TempSrc: Temporal SpO2: 100% Weight: 109 kg (240 lb) Height: 1.626 m (5' 4) Diagnoses as of 05/20/252027 Abdominal pain, epigastric History of bariatric surgery Medications ondansetron (Zofran) injection 4 mg (4 mg IntraVENous Given 05/20/251822) morphine injection 4 mg (4 mg IntraVENous Given 05/20/251823) sodium chloride 0.9 % bolus 1,000 mL (1,000 mL IntraVENous New Bag 05/20/251822) ketorolac (Toradol) injection 15 mg (15 mg IntraVENous Given 05/20/251906) dicyclomine (Bentyl) injection 20 mg (20 mg IntraMUSCular Given 05/20/251907) HYDROmorphone (Dilaudid) injection 0.5 mg (0.5 mg IntraVENous Given 05/20/251999) REVAL: On reassessment we talk to the patient about her test results. We discussed the case with bariatric surgery Dr. Soto who would like us to transfer the patient to [facility] for surgical evaluation. CRITICAL CARE TIME CONSULTS: None PROCEDURES: Unless otherwise noted below, none Procedures Patients symptoms are consistent with sepsis, severe sepsis, or septic shock (If yes use .sepsiscoremeasure): No FINAL IMPRESSION 1. Abdominal pain, epigastric 2. History of bariatric surgery DISPOSITION Transfer To [facility] Ed 05/20/2025 08:24:34 PM PATIENT REFERRED TO: No follow-up provider specified. DISCHARGE MEDICATIONS: New Prescriptions No medications on file (Comment: Please note this report has been produced using speech recognition software and may contain errors related to that system including errors in grammar, punctuation, and spelling, as well as words and phrases that may be inappropriate. If there are any questions or concerns please feel free to contact the dictating provider for clarification.) Abner Azul MD (electronically signed) Emergency Medicine Provider [1] Past Medical History: Diagnosis Date Abdominal pain Anxiety Arthritis Back pain Blurred vision Depression GERD (gastroesophageal reflux disease) H/O gastric bypass 02/07/2025 LRYGB 2013 [place] Hip pain Intestinal malabsorption 02/07/2025 Knee pain Seizures (HCC) SOB (shortness of breath) [2] Past Surgical History: Procedure Laterality Date APPENDECTOMY BRAIN SURGERY CLAVICLE SURGERY FRACTURE SURGERY GALLBLADDER SURGERY GASTRIC BYPASS 01/23/2014 LRYGB - Dr Sumeet Mar Austin. HYSTERECTOMY TONSILLECTOMY [3] Family History Problem Relation Name Age of Onset Obesity Paternal Grandmother Diabetes Paternal Grandmother Hypertension Paternal Grandmother Obesity Maternal Grandmother Hypertension Maternal Grandmother Obesity Maternal Grandfather Diabetes Maternal Grandfather Hypertension Maternal Grandfather Heart disease Maternal Grandfather Arthritis Father Raymond Cancer Father Raymond Depression Father Raymond Diabetes Father Raymond Hypertension Father Raymond Mental illness Father Raymond Stroke Father Raymond Obesity Father Raymond Asthma Mother Sarah COPD Mother Sarah Obesity Mother Sarah Hypertension Mother Sarah Obesity Brother Hypertension Brother Breast cancer Neg Hx Ovarian cancer Neg Hx [4] Social History Socioeconomic History Marital status: Tobacco Use Smoking status: Never Smokeless tobacco: Never Substance and Sexual Activity Alcohol use: Not Currently Drug use: Yes Types: Marijuana Comment: medical marijuana Sexual activity: Yes Partners: Male control/protection: Female Sterilization Comment: Hysterectomy Social Drivers of Health Financial Resource Strain: Low Risk (03/26/2025) Overall Financial Resource Strain (CARDIA) Difficulty of Paying Living Expenses: Not very hard Food Insecurity: No Food Insecurity (03/26/2025) Hunger Vital Sign Worried About Running Out of Food in the Last Year: Never true Ran Out of Food in the Last Year: Never true Transportation Needs: Unmet Transportation Needs (03/26/2025) PRAPARE - Transportation Lack of Transportation (Medical): Yes Lack of Transportation (Non-Medical): No Physical Activity: Insufficiently Active (03/26/2025) Exercise Vital Sign Days of Exercise per Week: 2 days Minutes of Exercise per Session: 30 min Stress: No Stress Concern Present (03/26/2025) [place] [employer] - Occupational Stress Questionnaire Feeling of Stress : Only a little Social Connections: Moderately Isolated (03/26/2025) Social Connection and Isolation Panel [NHANES] Frequency of Communication with Friends and Family: More than three times a week Frequency of Social Gatherings with Friends and Family: Once a week Attends Cheondoism Services: Never Active Member of Clubs or Organizations: No Attends Club or Organization Meetings: Never Marital Status: Housing Stability: Low Risk (03/26/2025) Housing Stability Vital Sign Unable to Pay for Housing in the Last Year: No Number of Times Moved in the Last Year: 0 Homeless in the Last Year: No Abner Azul MD 05/20/252027 documented in this encounter [facility] 05-22-2025 History of Presen t illness Narrative Department of Surgery Daily Progress Note Subjective No acute events overnight. Pain and nausea improved this morning. Feels up to going home today. ROS: Noted above unless otherwise mentioned Objective VITALS: Temp: [36.1 C (97 F)-36.3 C (97.4 F)] 36.1 C (97 F) Heart Rate: [77-85] 85 Resp: [16] 16 BP: (121-123)/(82-87) 121/82 INTAKE/OUTPUT: Reviewed in the EMR daily No intake or output data in the 24 hours ending 05/22/25720 PHYSICAL EXAM: Gen: NAD, A&Ox3, pain well controlled Heart: RRR, well perfused Lungs: symmetric chest rise, normal work of breathing Abd: soft, appropriately tender, non distended. Non rigid. Incisions CDI Ext: no significant swelling or edema, no obvious deformities Skin: warm, well perfused, no obvious rashes, cellulitis or gross discoloration LABS/IMAGING Reviewed in the EMR daily Current Inpatient Medications Scheduled Meds:Scheduled Meds[1] Continuous Infusions:Continuous Meds[2] PRN Meds:PRN Meds[3] ASSESSMENT AND PLAN: 40 y.o. female s/p diagnostic laparoscopy with lysis of adhesions for SBO on 05/20/2025 - Diet: Regular - PO pain medications for pain control - Ambulation encouraged - DVT ppx with SCD's and Lovenox - DC this AM Will discuss with Dr. Garcia, profile mill operator tape control for Dr. Brittany MADISON MD General Surgery Resident 05/22/25 7:21 AM ATTESTATION I discussed the above case with the president/gm production & live experiences by phone. I reviewed the relevant patient data, resident's note and made corrections as needed. I agree with the resident's plan. [1] acetaminophen, 1,000 mg, IntraVENous, 4 times per day amitriptyline, 50 mg, Oral, Nightly ARIPiprazole, 10 mg, Oral, Daily DULoxetine, 60 mg, Oral, BID lacosamide, 200 mg, Oral, BID methocarbamol, 750 mg, Oral, 4 times per day [2] [3] PRN medications: HYDROmorphone OR HYDROmorphone, naloxone, ondansetron ODT OR ondansetron, oxyCODONE OR oxyCODONE Images from the original note were not included. General Surgery Call/Night Float Progress Note Call concern: discharge exam Subjective: Patient states still needing IV dilaudid nearly q4h and having lots of pain Objective: Vitals: 05/21/25 0833 BP: 123/87 Pulse: 77 Resp: 16 Temp: 36.3 C (97.4 F) SpO2: 100% Exam: Gen: awake, alert, NAD Pulm: non labored breathing, equal chest rise Cor: Regular rate and rhythm Abd: Soft, non-distended, appropriate TTP on exam, no rebound, guarding, or peritoneal signs. Incisions covered with steri strips C/D/I A/P: 40 y.o. female s/p diagnostic laparoscopy with EDIL No further surgical intervention at this time - appropriate post operative progression - difficulty with pain control MMPR to alleviate use of IV Rx for discharge as able - will stay overnight for adequate pain control Rocco Butcher MD General Surgery PGY-1 06/30/25 7:22 PM Pager #[phone] Department of Surgery Daily Progress Note Subjective No acute events overnight. Tolerating diet. Pain worsened this AM. Denies: fevers, chills, nausea, vomiting, shortness of breath or chest pain. ROS: Noted above unless otherwise mentioned Objective VITALS: Temp: [36.1 C (96.9 F)-36.5 C (97.7 F)] 36.1 C (96.9 F) Heart Rate: [70-110] 90 Resp: [12-20] 16 BP: (96-147)/(48-90) 119/77 INTAKE/OUTPUT: Reviewed in the EMR daily Intake/Output Summary (Last 24 hours) at 05/21/2025 0649 Last data filed at 05/20/2025 2251 Gross per 24 hour Intake 1041 ml Output -- Net 1041 ml PHYSICAL EXAM: Gen: NAD, A&Ox3, pain well controlled Heart: RRR, well perfused Lungs: symmetric chest rise, normal work of breathing Abd: soft, appropriately tender, non distended. Non rigid. Incisions CDI Ext: no significant swelling or edema, no obvious deformities Skin: warm, well perfused, no obvious rashes, cellulitis or gross discoloration LABS/IMAGING Reviewed in the EMR daily Current Inpatient Medications Scheduled Meds:Scheduled Meds[1] Continuous Infusions:Continuous Meds[2] PRN Meds:PRN Meds[3] ASSESSMENT AND PLAN: 40 y.o. female s/p diagnostic laparoscopy with lysis of adhesions for SBO on 05/20/2025 - Toradol added to pain regimen - Diet: Regular - PO pain medications for pain control - Ambulation encouraged - DVT ppx with SCD's and Lovenox - Radhao fermín GARCIA later today if tolerating diet and pain well controlled Will discuss with Dr. Garcia, profile mill operator tape control for Dr. Brittany Pabon MD General Surgery Resident 05/21/25 6:49 AM ATTESTATION The patient was seen and examined. I have reviewed the patients presentation, histories, imaging and serology studies. I agree with the above assessment and plan. Ab: appropriately tender to palpation over surgical sites. Incision/dressing is clean, dry, and intact. Patient is doing well this morning. Pain is well controlled. Labs and Imaging Reviewed. Continue diet. Encourage up to chair, ambulation and IS. Plan for discharge home later today if patient continues to progress. I (Santosh Garcia) personally supervised the resident/fellow in the evaluation and development of a treatment plan for this patient including using nursing/ems notes. I personally discussed the review of systems and interviewed the patient along with performing a physical examination. In addition, I discussed the patient's condition and treatment options with them. I have also reviewed and agree with the past medical, family and social history unless otherwise noted and personally reviewed the imaging and labs. This note may be a delayed entry. All of the patient's questions were answered. The patient was seen and examined independently and relevant data reviewed by myself. A full chart review was performed. [1] acetaminophen, 1,000 mg, IntraVENous, q8h amitriptyline, 50 mg, Oral, Nightly ARIPiprazole, 10 mg, Oral, Daily DULoxetine, 60 mg, Oral, BID lacosamide, 200 mg, Oral, BID methocarbamol, 500 mg, Oral, 4 times per day [2] [3] PRN medications: HYDROmorphone OR HYDROmorphone, naloxone, ondansetron ODT OR ondansetron, oxyCODONE OR oxyCODONE documented in this encounter [facility] 05-21-2025 Note Problem: Pain - Adul t Goal: Verbalizes/displays adequate comfort level or baseline comfort level Outcome: Progressing [facility] 05-21-2025 Plan of care note Problem: Pain - Adult Goal: Verbalizes/displays adequate comfort level or baseline comfort level Outcome: Progressing [facility] 05-21-2025 Hospital Discharg e instructions Mateo Pabon MD - 05/21/2025 3:26 PM EDT Images from the original note were not included. MARCO ANTONIO SOTO MD , FACS, [facility] MINIMALLY INVASIVE & METABOLIC / BARIATRIC SURGERY [facility] DISCHARGE INSTRUCTIONS 05/21/2025 PATIENT: Lexis Nguyen DATE OF : 1985 - Call your surgeon in 1 to 2 days to schedule a follow-up appointment in 1-2 weeks. OK to shower. OK for activity as tolerated. No lifting over 15 pounds. Wound Care: {wound care:09508} If you have steri-strips, you may remove them 5 days after your surgery. If your steri-strips fall off sooner, you may leave them off. If you have lukas, they can be removed in 14 days after your surgery by your surgeon or PCP. If you have a drain, please record daily output amounts and bring the recordings with you to your office follow up. No driving while taking narcotic pain medications. You may take an over the counter stool softener while on narcotics for constipation as needed (colace, miralax, etc). Call your Physician or return to the Emergency Room if you experience: -New or increased pain. -New or increased bleeding. -Nausea & vomitting. -Fever & chills. -Shortness of breath. -Chest pain. -Abdominal distention. O ANTONIO SOTO MD, FACS, [facility] Rn Eligibility - Weight Management [facility] - [facility] M[facility], Foregut and Bariatric Surgery Fellowship ---[facility]--- documented in this encounter [facility] 05-21-2025 Note Formatting of this n ote might be different from the original. Care Management Progress Note Short Medical why still here: One day post op Dx lap with EDIL and small bowel resection. Planned Discharge Disposition: Home or Self Care Barriers/Today we still Wait: Attending completion of discharge workflow, Clinical stability, diet toleration, return of bowel function. Possible dc later today if clinically stable. Length of Stay (Days): 0 GMLOS: No GMLOS Documented [facility] 05-21-2025 Note Formatting of this n ote might be different from the original. Care Management Progress Note Short Medical why still here: One day post op Dx lap with EDIL and small bowel resection. Planned Discharge Disposition: Home or Self Care Barriers/Today we still Wait: Attending completion of discharge workflow, Clinical stability, diet toleration, return of bowel function. Possible dc later today if clinically stable. Length of Stay (Days): 0 GMLOS: No GMLOS Documented [facility] 05-20-2025 Note [facility] 05-20-2025 Note [facility] 05-20-2025 Procedure note OPERATIVE NOTE DATE OF PROCEDURE: 05/20/2025 SURGEON: Marco Antonio Soto MD SCREEN CUTTER AND TRIMMER: Dolly Gentile MD PREOPERATIVE DIAGNOSIS: small bowel obstruction, possible internal hernia POSTOPERATIVE DIAGNOSIS: Small bowel obstruction OPERATION: diagnostic laparoscopy, lysis of adhesion ANESTHESIA: General anesthesia ESTIMATED BLOOD LOSS: minimal COMPLICATIONS: None SPECIMENS: abdominal adhesion PREOPERATIVE MEDICATIONS: 2g Ancef HISTORY: The patient is a 40 y.o. year old female with history of above preop diagnosis. I explained the risk, benefits, expected outcome, and alternatives to the procedure. Patient understands and is in agreement to proceed with operation. PROCEDURE: The patient was brought to the operating room and placed in supine position. After initiation of general anesthesia the patient was prepped and draped in usual sterile fashion. A time out was performed. A incision was made at Palmers point and a 5mm optical port was introduced into the abdominal cavity. The opening pressure was low. Abdomen insufflated to 15mm hg. We placed 3 additional 5 mm trocars, two supraumbilically and one in the RLQ. We examined the bowel and noticed an adhesion tethering a loop of bowel in the LUQ. The adhesion was sharply dissected and sent for permanent pathology. The RYGB was noted to be retrocolic. The krystal limb and BPL were run to the common channel with no acute abnormalities. The rest of the common channel was run to the cecum, where a Meckel's diverticulum was noted at the ileum. There bowel was pink and viable without significant dilation. At this time, we removed our instruments and desufflated the abdomen. The incisions were closed with 4-0 monocryl and steri strips. The patient tolerated the procedure well, was extubated, and sent to the recovery room in stable condition. Dolly Gentile MD General Surgery Resident 05/20/25 11:58 PM This note may have been dictated using VTM Medical Practice Edition 2.6 and/or [employer] Voice Recognition Feature. The document was proofread; however, unrecognized voice recognition paperhanger apprentice errors may be present. [employer] Phone: 05-20-2025 Procedure note Images from the original note were not included. MARCO ANTONIO SOTO MD , FACS, [facility] MINIMALLY INVASIVE & METABOLIC / BARIATRIC SURGERY [facility] OPERATIVE REPORT 05/20/25 PATIENT: Lexis Nguyen DATE OF : 1985 - PROCEDURE: LAPAROSCOPIC LYSIS OF ADHESIONS WITH RELEASE OF PARTIAL SMALL BOWEL OBSTRUCTION (09078) SURGEON: Marco Antonio Soto MD SCREEN CUTTER AND TRIMMER: Dolly Gentile MD PRE-OPERATIVE DIAGNOSES: Partial small bowel obstruction Concern for internal hernia History of LRYGB POST-OPERATIVE DIAGNOSES: Same with a solitary adhesive band of tissue causing partial obstruction and no evidence of internal hernia ANESTHESIA: General endotracheal Transversus Abdominis plane block FLUIDS: Crystalloid ESTIMATED BLOOD LOSS: Minimal URINE OUTPUT: Not recorded PREOPERATIVE MEDICATIONS: Pre-operative IV antibiotics: 2 gm cefazolin INDICATIONS FOR PROCEDURE: The patient is a 40 y.o. female with a history of LRYGB in [place] in 2013 and left upper quadrant abdominal pain and bloating. The patient has had a work up concerning for internal hernia and laparoscopic evaluation is warranted. The risks, benefits and options of the procedure and additional possible interventions were reviewed and all questions were answered to the patient's satisfaction. DESCRIPTION OF PROCEDURE: The patient was transported to the operating room and identified by name and number. The patient was placed on the operating room table in the supine position and general endotracheal anesthesia was administered by members of the anesthesia team. Following placement of sequential compression devices, the patients extremities were positioned and protected. The abdomen was prepped and draped in standard surgical fashion. An operating room team time out was performed confirming the identity of the patient and the planned procedure. Access to the abdominal cavity was obtained in the left upper quadrant at Leija's point using a 5-mm optical trocar. Pneumoperitoneum was established and a brief exploration of the abdominal cavity was performed. Findings included dilated caliber small bowel loops tethered over a solitary adhesive band from the mesentery to the abdominal, which was causing the obstruction. Additional 5-mm trocars were carefully placed under direct visualization, 1 at the umbilicus, 1 in the epigastric region and 1 on the patient's right side. We divided the adhesive band causing the obstruction and excised it, passing it off the field for pathology studies. We proceeded with evaluation of the pouch and gastrojejunostomy which appeared normal. The Krystal limb was run to the jejuno-jejunostomy which was intact. The Krystal limb was retro-colic. We then evaluated the biliopancreatic limb to the ligament of Treitz. The ileocecal junction was the identified and the common channel was carefully run from the terminal ileum all the way back to the jejunojejunostomy. The mesentery at the jejunojejunostomy was carefully evaluated and a mesenteric defect was not identified. The area between the colon and the Krystal limb mesentery was also carefully evaluated and a defect was not identified at Doyle's space. At the end of the operation, the trocars were carefully removed under direct visualization and the pneumoperitoneum was evacuated. Fascial defect were closed using 0-Vycril suture for 10-mm trocar sites and the skin incisions were closed using 4-0 Vycril suture in subcuticular fashion. This was followed by steri strips and sterile dressings. The needle, sponge and instrument counts were correct. The patient tolerated the procedure and the anesthesia well without any major complications. The patients was transported to the post-anesthesia care unit in stable condition. I was present for the entire duration of the procedure. [facility] - Data form Start Time: 22:16 Stop Time: 22:40 Vending Attendant: [x] Resident [] Fellow ASA Class: [] 1 [x] 2 [] 3 []4 [] 5 Surgical Approach: [x] Conventional laparoscopic Was the procedure converted to another approach? [] Yes [x] No Was the case aborted? [] Yes [x] No Was a drain placed at the time of the initial operation? [] Yes [x] No Was a swallow study performed the day of or the day after the procedure? [] Yes [x] No Was the anastomotic/staple line checked with a provocative test to assess for leak? [x] N/A Was this a stapling procedure: [] Yes [x] No Other Procedures: None [facility] 05-20-2025 Emergency department Note Pt to the OR with surgery resident at this time. Pt leaving ED in stable condition. [facility] 05-20-2025 Emergency department Note Pt to the OR with surgery resident at this time. Pt leaving ED in stable condition. Patient given gown, hospital socks and belonging bag. EMERGENCY DEPARTMENT ENCOUNTER Pt Name: Lexis Nguyen Birthdate 1985 Date of evaluation: 05/20/2025 ED Provider: Magdalene Ayala PA-C CHIEF COMPLAINT Chief Complaint Patient presents with Abdominal Pain HISTORY OF PRESENT ILLNESS (Location/Symptom, Timing/Onset, Context/Setting, Quality, Duration, Modifying Factors, Severity) Note limiting factors. I wore appropriate PPE for the entirety of this encounter. HPI Lexis Nguyen is a 40 y.o. female who presents to the emergency department for evaluation of epigastric abdominal pain with sudden onset at 1400 today. Patient states that she was sitting on the couch was not doing anything abnormal when the pain started. States that she attempted to eat something although it was difficult due to exacerbation of the pain. Reports nausea but denies any vomiting. History of Krystal-en-Y, cholecystectomy. States that she is still having bowel movements and passing flatulence. Denies any urinary symptoms. Denies any discrete chest pain. Denies any shortness of breath. Nursing Notes were reviewed. Limitations to history: None Outside historians: None REVIEW OF SYSTEMS Review of Systems 10 systems reviewed, positives and pertinent negatives as per HPI. All other systems were reviewed and are negative. PAST MEDICAL HISTORY Medical History[1] SURGICAL HISTORY Surgical History[2] CURRENT MEDICATIONS Previous Medications AMITRIPTYLINE (ELAVIL) 25 MG TABLET Take 25 mg by mouth Nightly. ARIPIPRAZOLE (ABILIFY) 5 MG TABLET Take 5 mg by mouth daily. CALCIUM CITRATE 1040 MG TABLET Take by mouth 3 times a day. CHOLECALCIFEROL (VITAMIN D-3) 25 MCG (1000 UT) TABLET Take 1,000 Units by mouth in the morning. DULOXETINE (CYMBALTA) [address] CAPSULE Take 60 mg by mouth 2 times daily. LACOSAMIDE (VIMPAT) 150 MG TABLET TABLET Take 200 mg by mouth 2 times daily. LORAZEPAM (ATIVAN) 0.5 MG TABLET lorazepam 0.5 mg tablet METFORMIN (GLUCOPHAGE) 500 MG TABLET Take 500 mg by mouth daily. METHOCARBAMOL (ROBAXIN) 500 MG TABLET Take 1 tablet (500 mg) by mouth 2 times daily for 10 days. MULTIPLE VITAMINS-MINERALS (ONCOVITE) TABLET Take 1 tablet by mouth in the morning and 1 tablet in the evening. NORETHINDRONE (ORTHO MICRONOR) 0.35 MG TABLET Take 1 tablet (0.35 mg) by mouth daily. OXYCODONE (ROXICODONE) 5 MG IMMEDIATE RELEASE TABLET Take 1 tablet (5 mg) by mouth every 8 hours as needed for severe pain (7-10) for up to 13 doses. SEMAGLUTIDE, 1 MG/DOSE, SC Inject 1 mL under the skin 1 (one) time per week. TRAMADOL (ULTRAM) 50 MG TABLET Take 50 mg by mouth 2 times daily. ALLERGIES Nortriptyline, Nsaids, Other, Gabapentin, and Penicillins FAMILY HISTORY Family History[3] SOCIAL HISTORY Social History[4] SCREENINGS PHYSICAL EXAM ED Triage Vitals [05/20/25 1756] Temp Heart Rate Resp BP 36.4 C (97.5 F) 86 20 (!) 147/90 SpO2 Temp Source Heart Rate Source Patient Position 100 % Temporal Monitor Sitting BP Location FiO2 (%) Left arm -- Physical Exam Vitals and nursing note reviewed. Constitutional: General: She is not in acute distress. Appearance: She is well-developed. Comments: 40-year-old female who appears to be in slight discomfort. Patient does not appear to be in acute distress. HENT: Head: Normocephalic and atraumatic. Eyes: Conjunctiva/sclera: Conjunctivae normal. Cardiovascular: Rate and Rhythm: Normal rate and regular rhythm. Heart sounds: No murmur heard. Pulmonary: Effort: Pulmonary effort is normal. No respiratory distress. Breath sounds: Normal breath sounds. Abdominal: Comments: Abdomen soft and nonrigid. There is tenderness to palpation of bilateral upper quadrants although significantly exacerbated in the middle of the epigastric region. No guarding or rebound tenderness noted. Musculoskeletal: General: No swelling. Cervical back: Neck supple. Skin: General: Skin is warm and dry. Capillary Refill: Capillary refill takes less than 2 seconds. Neurological: Mental Status: She is alert. Psychiatric: Mood and Affect: Mood normal. DIAGNOSTIC RESULTS RADIOLOGY (Per Emergency Physician): Interpretation per the Radiologist below, if available at the time of this note: CT abdomen pelvis wo IV contrast Final Result Mild gaseous distention of bowel loops with evidence of bariatric surgery. Ileus is most likely Report Dictated on Electronically Signed By: Abner Ritchie MD Electronically Signed Date/Time: 05/20/2025 6:55 PM EDT LABS: Labs Reviewed CBC WITH AUTO DIFFERENTIAL - Abnormal Result Value Auto WBC 11.3 (*) RBC 4.42 Hemoglobin 13.6 Hematocrit 41.0 MCV 92.8 MCH 30.8 MCHC 33.2 RDW 13.2 Platelets 270 MPV 9.7 nRBC 0.0 Neutrophils Relative 66.4 Lymphocytes Relative 24.6 Monocytes Relative 7.1 Eosinophils Relative 1.0 Basophils Relative 0.5 Immature Grans % 0.4 Neutrophils Absolute 7.5 Lymphocytes Absolute 2.8 Monocytes Absolute 0.8 Eosinophils Absolute 0.1 Basophils Absolute 0.1 Immature Grans Absolute 0.0 LIPASE - Abnormal LIPASE 59 (*) COMPLETE URINALYSIS WITH REFLEX TO CULTURE - Abnormal Color, Urine Colorless Clarity, Urine Clear pH, Urine 5.5 Leukocytes, Urine Negative Nitrite, Urine Negative Protein, Urine Negative Glucose, Urine Normal Bilirubin, Urine Negative Ketones, Urine Trace (*) Urobilinogen, Urine Normal Blood, Urine Negative SPECIFIC GRAVITY OF URINE (NUMERIC) 1.005 Narrative: A specimen with <=10 WBC is not consistent with inflammation. This specimen will not reflex to a urine culture. COMPREHENSIVE METABOLIC PANEL - Normal SODIUM 138 POTASSIUM 3.9 CHLORIDE 103 CARBON DIOXIDE 24 ANION GAP 11 UREA NITROGEN 8 CREATININE 0.70 GLUCOSE 85 CALCIUM 8.7 AST (SGOT) 20 ALT 21 ALKALINE PHOSPHATASE 100 ALBUMIN 3.7 BILIRUBIN, TOTAL 0.3 TOTAL PROTEIN 6.6 eGFR >90.0 HIGH SENSITIVITY TROPONIN, SERIAL BASELINE - Normal Troponin HS Serial Baseline <3 LACTIC ACID WITH REFLEX - Normal LACTIC ACID 0.7 HCG QUALITATIVE URINE HCG,URINE QUAL Negative Narrative: is the most common reason for HCG in urine, although choriocarcinoma, hydatidiform mole, and certain nontrophoblastic malignancies also result in detectable urinary HCG levels. Sensitivity = 20mIU/mL. All other labs were within normal range or not returned as of this dictation. EMERGENCY DEPARTMENT COURSE and DIFFERENTIAL DIAGNOSIS/MDM: Vitals: Vitals: 05/20/25 1756 BP: (!) 147/90 BP Location: Left arm Patient Position: Sitting Pulse: 86 Resp: 20 Temp: 36.4 C (97.5 F) TempSrc: Temporal SpO2: 100% Weight: 109 kg (240 lb) Height: 1.626 m (5' 4) Medications ondansetron (Zofran) injection 4 mg (4 mg IntraVENous Given 05/20/251822) morphine injection 4 mg (4 mg IntraVENous Given 05/20/251823) sodium chloride 0.9 % bolus 1,000 mL (1,000 mL IntraVENous New Bag 05/20/251822) ketorolac (Toradol) injection 15 mg (15 mg IntraVENous Given 05/20/251906) dicyclomine (Bentyl) injection 20 mg (20 mg IntraMUSCular Given 05/20/251907) HYDROmorphone (Dilaudid) injection 0.5 mg (0.5 mg IntraVENous Given 05/20/251999) ED care was supervised by Dr. Azul who independently examined and evaluated the patient. Please see their attestation note for further details. In brief, Lexis Nguyen is a 40 y.o. female who presented to the emergency department for evaluation of sudden onset abdominal pain that started at 1400 today. See HPI further details. Nursing notes and medical records reviewed, no recent visits or studies correlating to patient's presenting symptoms. Differential considerations included gastritis, PUD, pancreatitis, ACS, colitis. Initial medical management includes IV fluids, Zofran, morphine. Initial workup includes CBC, CMP, lipase, urinalysis, urine hCG, troponin, EKG, CT chest abdomen pelvis. Upon reassessment patient having persistent pain. Additionally given Toradol, Bentyl, Dilaudid. Lab workup results CBC shows leukocytosis 11.3. CMP is all within normal limits. Troponin less than 3. Lactic acid within normal limits at 0.7. Lipase mildly elevated 59. Urinalysis shows no evidence infection. hCG is negative. Imaging results per radiology CT abdomen pelvis shows mild gaseous distention of bowel loops with evidence of bariatric surgery. Ileus most likely. Chronic conditions contributing to patients presentation include GERD, history of Krystal-en-Y. Social determinants to care: None noted. Consulted bariatric surgery, Dr. Soto who recommended ED to ED transfer for surgery eval given concern for possible internal hernia. Diagnosis epigastric abdominal pain, history of bariatric surgery. Disposition transfer to [facility] ED for surgery eval. Patient has a history of a Krystal-en-Y in 2013 in [place]. Patient is having persistent epigastric abdominal pain with ileus noted on CT imaging. Discussed with Dr. Abreu who is concern for possible internal hernia and recommended ED to ED transfer for surgery eval. Patient will be transferred in stable condition. Discussed case with Dr. Lambert who accepted patient for transfer. PROCEDURES: Unless otherwise noted below, none Procedures FINAL IMPRESSION 1. Abdominal pain, epigastric 2. History of bariatric surgery DISPOSITION Transfer To [facility] 05/20/2025 08:24:34 PM PATIENT REFERRED TO: No follow-up provider specified. DISCHARGE MEDICATIONS: New Prescriptions No medications on file (Comment: Please note this report has been produced using speech recognition software and may contain errors related to that system including errors in grammar, punctuation, and spelling, as well as words and phrases that may be inappropriate. If there are any questions or concerns please feel free to contact the dictating provider for clarification.) Magdalene Ayala PA-C (electronically signed) Emergency Medicine Provider [1] Past Medical History: Diagnosis Date Abdominal pain Anxiety Arthritis Back pain Blurred vision Depression GERD (gastroesophageal reflux disease) H/O gastric bypass 02/07/2025 [facility] 2013 [place] Hip pain Intestinal malabsorption 02/07/2025 Knee pain Seizures (HCC) SOB (shortness of breath) [2] Past Surgical History: Procedure Laterality Date APPENDECTOMY BRAIN SURGERY CLAVICLE SURGERY FRACTURE SURGERY GALLBLADDER SURGERY GASTRIC BYPASS 01/23/2014 [facility] - Dr Sumeet Mar [place]. HYSTERECTOMY TONSILLECTOMY [3] Family History Problem Relation Name Age of Onset Obesity Paternal Grandmother Diabetes Paternal Grandmother Hypertension Paternal Grandmother Obesity Maternal Grandmother Hypertension Maternal Grandmother Obesity Maternal Grandfather Diabetes Maternal Grandfather Hypertension Maternal Grandfather Heart disease Maternal Grandfather Arthritis Father Raymond Cancer Father Raymond Depression Father Raymond Diabetes Father Raymond Hypertension Father Raymond Mental illness Father Raymond Stroke Father Raymond Obesity Father Raymond Asthma Mother Sarah COPD Mother Sarah Obesity Mother Sarah Hypertension Mother Sarah Obesity Brother Hypertension Brother Breast cancer Neg Hx Ovarian cancer Neg Hx [4] Social History Socioeconomic History Marital status: Tobacco Use Smoking status: Never Smokeless tobacco: Never Substance and Sexual Activity Alcohol use: Not Currently Drug use: Yes Types: Marijuana Comment: medical marijuana Sexual activity: Yes Partners: Male control/protection: Female Sterilization Comment: Hysterectomy Social Drivers of Health Financial Resource Strain: Low Risk (03/26/2025) Overall Financial Resource Strain (CARDIA) Difficulty of Paying Living Expenses: Not very hard Food Insecurity: No Food Insecurity (03/26/2025) Hunger Vital Sign Worried About Running Out of Food in the Last Year: Never true Ran Out of Food in the Last Year: Never true Transportation Needs: Unmet Transportation Needs (03/26/2025) PRAPARE - Transportation Lack of Transportation (Medical): Yes Lack of Transportation (Non-Medical): No Physical Activity: Insufficiently Active (03/26/2025) Exercise Vital Sign Days of Exercise per Week: 2 days Minutes of Exercise per Session: 30 min Stress: No Stress Concern Present (03/26/2025) [employer] - Occupational Stress Questionnaire Feeling of Stress : Only a little Social Connections: Moderately Isolated (03/26/2025) Social Connection and Isolation Panel [NHANES] Frequency of Communication with Friends and Family: More than three times a week Frequency of Social Gatherings with Friends and Family: Once a week Attends Che[employer] Services: Never Active Member of Clubs or Organizations: No Attends Club or Organization Meetings: Never Marital Status: Housing Stability: Low Risk (03/26/2025) Housing Stability Vital Sign Unable to Pay for Housing in the Last Year: No Number of Times Moved in the Last Year: 0 Homeless in the Last Year: No Magdalene D Jamie, PA-C 05/20/252029 Cosigned by Abner Azul MD at 05/21/2025 3:04 AM EDT Patient c/o epigastric pain with pressure and tightness that started at 1400 documented in this encounter [facility] 05-20-2025 Emergency department Note Patient given gown, hospital socks and belonging bag. [facility] 05-20-2025 Note [facility] Emergency department Triage note Patient c/o epigastric pain with pressure and tightness that started at 1400 [facility] 05-20-2025 Physician Emergency department Note EMERGENCY DEPARTMENT ENCOUNTER Pt Name: Lexis Nguyen Birthdate 1985 Date of evaluation: 05/20/2025 ED Provider: Magdalene Ayala PA-C CHIEF COMPLAINT Chief Complaint Patient presents with Abdominal Pain HISTORY OF PRESENT ILLNESS (Location/Symptom, Timing/Onset, Context/Setting, Quality, Duration, Modifying Factors, Severity) Note limiting factors. I wore appropriate PPE for the entirety of this encounter. HPI Lexis Nguyen is a 40 y.o. female who presents to the emergency department for evaluation of epigastric abdominal pain with sudden onset at 1400 today. Patient states that she was sitting on the couch was not doing anything abnormal when the pain started. States that she attempted to eat something although it was difficult due to exacerbation of the pain. Reports nausea but denies any vomiting. History of Krystal-en-Y, cholecystectomy. States that she is still having bowel movements and passing flatulence. Denies any urinary symptoms. Denies any discrete chest pain. Denies any shortness of breath. Nursing Notes were reviewed. Limitations to history: None Outside historians: None REVIEW OF SYSTEMS Review of Systems 10 systems reviewed, positives and pertinent negatives as per HPI. All other systems were reviewed and are negative. PAST MEDICAL HISTORY Medical History[1] SURGICAL HISTORY Surgical History[2] CURRENT MEDICATIONS Previous Medications AMITRIPTYLINE (ELAVIL) 25 MG TABLET Take 25 mg by mouth Nightly. ARIPIPRAZOLE (ABILIFY) 5 MG TABLET Take 5 mg by mouth daily. CALCIUM CITRATE 1040 MG TABLET Take by mouth 3 times a day. CHOLECALCIFEROL (VITAMIN D-3) 25 MCG (1000 UT) TABLET Take 1,000 Units by mouth in the morning. DULOXETINE (CYMBALTA) [address] CAPSULE Take 60 mg by mouth 2 times daily. LACOSAMIDE (VIMPAT) 150 MG TABLET TABLET Take 200 mg by mouth 2 times daily. LORAZEPAM (ATIVAN) 0.5 MG TABLET lorazepam 0.5 mg tablet METFORMIN (GLUCOPHAGE) 500 MG TABLET Take 500 mg by mouth daily. METHOCARBAMOL (ROBAXIN) 500 MG TABLET Take 1 tablet (500 mg) by mouth 2 times daily for 10 days. MULTIPLE VITAMINS-MINERALS (ONCOVITE) TABLET Take 1 tablet by mouth in the morning and 1 tablet in the evening. NORETHINDRONE (ORTHO MICRONOR) 0.35 MG TABLET Take 1 tablet (0.35 mg) by mouth daily. OXYCODONE (ROXICODONE) 5 MG IMMEDIATE RELEASE TABLET Take 1 tablet (5 mg) by mouth every 8 hours as needed for severe pain (7-10) for up to 13 doses. SEMAGLUTIDE, 1 MG/DOSE, SC Inject 1 mL under the skin 1 (one) time per week. TRAMADOL (ULTRAM) 50 MG TABLET Take 50 mg by mouth 2 times daily. ALLERGIES Nortriptyline, Nsaids, Other, Gabapentin, and Penicillins FAMILY HISTORY Family History[3] SOCIAL HISTORY Social History[4] SCREENINGS PHYSICAL EXAM ED Triage Vitals [05/20/25 1756] Temp Heart Rate Resp BP 36.4 C (97.5 F) 86 20 (!) 147/90 SpO2 Temp Source Heart Rate Source Patient Position 100 % Temporal Monitor Sitting BP Location FiO2 (%) Left arm -- Physical Exam Vitals and nursing note reviewed. Constitutional: General: She is not in acute distress. Appearance: She is well-developed. Comments: 40-year-old female who appears to be in slight discomfort. Patient does not appear to be in acute distress. HENT: Head: Normocephalic and atraumatic. Eyes: Conjunctiva/sclera: Conjunctivae normal. Cardiovascular: Rate and Rhythm: Normal rate and regular rhythm. Heart sounds: No murmur heard. Pulmonary: Effort: Pulmonary effort is normal. No respiratory distress. Breath sounds: Normal breath sounds. Abdominal: Comments: Abdomen soft and nonrigid. There is tenderness to palpation of bilateral upper quadrants although significantly exacerbated in the middle of the epigastric region. No guarding or rebound tenderness noted. Musculoskeletal: General: No swelling. Cervical back: Neck supple. Skin: General: Skin is warm and dry. Capillary Refill: Capillary refill takes less than 2 seconds. Neurological: Mental Status: She is alert. Psychiatric: Mood and Affect: Mood normal. DIAGNOSTIC RESULTS RADIOLOGY (Per Emergency Physician): Interpretation per the Radiologist below, if available at the time of this note: CT abdomen pelvis wo IV contrast Final Result Mild gaseous distention of bowel loops with evidence of bariatric surgery. Ileus is most likely Report Dictated on Electronically Signed By: Abner Ritchie MD Electronically Signed Date/Time: 05/20/2025 6:55 PM EDT LABS: Labs Reviewed CBC WITH AUTO DIFFERENTIAL - Abnormal Result Value Auto WBC 11.3 (*) RBC 4.42 Hemoglobin 13.6 Hematocrit 41.0 MCV 92.8 MCH 30.8 MCHC 33.2 RDW 13.2 Platelets 270 MPV 9.7 nRBC 0.0 Neutrophils Relative 66.4 Lymphocytes Relative 24.6 Monocytes Relative 7.1 Eosinophils Relative 1.0 Basophils Relative 0.5 Immature Grans % 0.4 Neutrophils Absolute 7.5 Lymphocytes Absolute 2.8 Monocytes Absolute 0.8 Eosinophils Absolute 0.1 Basophils Absolute 0.1 Immature Grans Absolute 0.0 LIPASE - Abnormal LIPASE 59 (*) COMPLETE URINALYSIS WITH REFLEX TO CULTURE - Abnormal Color, Urine Colorless Clarity, Urine Clear pH, Urine 5.5 Leukocytes, Urine Negative Nitrite, Urine Negative Protein, Urine Negative Glucose, Urine Normal Bilirubin, Urine Negative Ketones, Urine Trace (*) Urobilinogen, Urine Normal Blood, Urine Negative SPECIFIC GRAVITY OF URINE (NUMERIC) 1.005 Narrative: A specimen with <=10 WBC is not consistent with inflammation. This specimen will not reflex to a urine culture. COMPREHENSIVE METABOLIC PANEL - Normal SODIUM 138 POTASSIUM 3.9 CHLORIDE 103 CARBON DIOXIDE 24 ANION GAP 11 UREA NITROGEN 8 CREATININE 0.70 GLUCOSE 85 CALCIUM 8.7 AST (SGOT) 20 ALT 21 ALKALINE PHOSPHATASE 100 ALBUMIN 3.7 BILIRUBIN, TOTAL 0.3 TOTAL PROTEIN 6.6 eGFR >90.0 HIGH SENSITIVITY TROPONIN, SERIAL BASELINE - Normal Troponin HS Serial Baseline <3 LACTIC ACID WITH REFLEX - Normal LACTIC ACID 0.7 HCG QUALITATIVE URINE HCG,URINE QUAL Negative Narrative: is the most common reason for HCG in urine, although choriocarcinoma, hydatidiform mole, and certain nontrophoblastic malignancies also result in detectable urinary HCG levels. Sensitivity = 20mIU/mL. All other labs were within normal range or not returned as of this dictation. EMERGENCY DEPARTMENT COURSE and DIFFERENTIAL DIAGNOSIS/MDM: Vitals: Vitals: 05/20/25 1756 BP: (!) 147/90 BP Location: Left arm Patient Position: Sitting Pulse: 86 Resp: 20 Temp: 36.4 C (97.5 F) TempSrc: Temporal SpO2: 100% Weight: 109 kg (240 lb) Height: 1.626 m (5' 4) Medications ondansetron (Zofran) injection 4 mg (4 mg IntraVENous Given 05/20/251822) morphine injection 4 mg (4 mg IntraVENous Given 05/20/251823) sodium chloride 0.9 % bolus 1,000 mL (1,000 mL IntraVENous New Bag 05/20/251822) ketorolac (Toradol) injection 15 mg (15 mg IntraVENous Given 05/20/251906) dicyclomine (Bentyl) injection 20 mg (20 mg IntraMUSCular Given 05/20/251907) HYDROmorphone (Dilaudid) injection 0.5 mg (0.5 mg IntraVENous Given 05/20/251999) ED care was supervised by Dr. Azul who independently examined and evaluated the patient. Please see their attestation note for further details. In brief, Lexis Nguyen is a 40 y.o. female who presented to the emergency department for evaluation of sudden onset abdominal pain that started at 1400 today. See HPI further details. Nursing notes and medical records reviewed, no recent visits or studies correlating to patient's presenting symptoms. Differential considerations included gastritis, PUD, pancreatitis, ACS, colitis. Initial medical management includes IV fluids, Zofran, morphine. Initial workup includes CBC, CMP, lipase, urinalysis, urine hCG, troponin, EKG, CT chest abdomen pelvis. Upon reassessment patient having persistent pain. Additionally given Toradol, Bentyl, Dilaudid. Lab workup results CBC shows leukocytosis 11.3. CMP is all within normal limits. Troponin less than 3. Lactic acid within normal limits at 0.7. Lipase mildly elevated 59. Urinalysis shows no evidence infection. hCG is negative. Imaging results per radiology CT abdomen pelvis shows mild gaseous distention of bowel loops with evidence of bariatric surgery. Ileus most likely. Chronic conditions contributing to patients presentation include GERD, history of Krystal-en-Y. Social determinants to care: None noted. Consulted bariatric surgery, Dr. Soto who recommended ED to ED transfer for surgery eval given concern for possible internal hernia. Diagnosis epigastric abdominal pain, history of bariatric surgery. Disposition transfer to [facility] ED for surgery eval. Patient has a history of a Krystal-en-Y in 2013 in [place]. Patient is having persistent epigastric abdominal pain with ileus noted on CT imaging. Discussed with Dr. Abreu who is concern for possible internal hernia and recommended ED to ED transfer for surgery eval. Patient will be transferred in stable condition. Discussed case with Dr. Lambert who accepted patient for transfer. PROCEDURES: Unless otherwise noted below, none Procedures FINAL IMPRESSION 1. Abdominal pain, epigastric 2. History of bariatric surgery DISPOSITION Transfer To [facility] Ed 05/20/2025 08:24:34 PM PATIENT REFERRED TO: No follow-up provider specified. DISCHARGE MEDICATIONS: New Prescriptions No medications on file (Comment: Please note this report has been produced using speech recognition software and may contain errors related to that system including errors in grammar, punctuation, and spelling, as well as words and phrases that may be inappropriate. If there are any questions or concerns please feel free to contact the dictating provider for clarification.) Magdalene Ayala PA-C (electronically signed) Emergency Medicine Provider [1] Past Medical History: Diagnosis Date Abdominal pain Anxiety Arthritis Back pain Blurred vision Depression GERD (gastroesophageal reflux disease) H/O gastric bypass 02/07/2025 [facility] 2013 [place] Hip pain Intestinal malabsorption 02/07/2025 Knee pain Seizures (HCC) SOB (shortness of breath) [2] Past Surgical History: Procedure Laterality Date APPENDECTOMY BRAIN SURGERY CLAVICLE SURGERY FRACTURE SURGERY GALLBLADDER SURGERY GASTRIC BYPASS 01/23/2014 [facility] - Dr Sumeet Mar [place]. HYSTERECTOMY TONSILLECTOMY [3] Family History Problem Relation Name Age of Onset Obesity Paternal Grandmother Diabetes Paternal Grandmother Hypertension Paternal Grandmother Obesity Maternal Grandmother Hypertension Maternal Grandmother Obesity Maternal Grandfather Diabetes Maternal Grandfather Hypertension Maternal Grandfather Heart disease Maternal Grandfather Arthritis Father Raymond Cancer Father Raymond Depression Father Raymond Diabetes Father Raymond Hypertension Father Raymond Mental illness Father Raymond Stroke Father Raymond Obesity Father Raymond Asthma Mother Sarah COPD Mother Sarah Obesity Mother Sarah Hypertension Mother Sarah Obesity Brother Hypertension Brother Breast cancer Neg Hx Ovarian cancer Neg Hx [4] Social History Socioeconomic History Marital status: Tobacco Use Smoking status: Never Smokeless tobacco: Never Substance and Sexual Activity Alcohol use: Not Currently Drug use: Yes Types: Marijuana Comment: medical marijuana Sexual activity: Yes Partners: Male control/protection: Female Sterilization Comment: Hysterectomy Social Drivers of Health Financial Resource Strain: Low Risk (03/26/2025) Overall Financial Resource Strain (CARDIA) Difficulty of Paying Living Expenses: Not very hard Food Insecurity: No Food Insecurity (03/26/2025) Hunger Vital Sign Worried About Running Out of Food in the Last Year: Never true Ran Out of Food in the Last Year: Never true Transportation Needs: Unmet Transportation Needs (03/26/2025) PRAPARE - Transportation Lack of Transportation (Medical): Yes Lack of Transportation (Non-Medical): No Physical Activity: Insufficiently Active (03/26/2025) Exercise Vital Sign Days of Exercise per Week: 2 days Minutes of Exercise per Session: 30 min Stress: No Stress Concern Present (03/26/2025) [employer] - Occupational Stress Questionnaire Feeling of Stress : Only a little Social Connections: Moderately Isolated (03/26/2025) Social Connection and Isolation Panel [NHANES] Frequency of Communication with Friends and Family: More than three times a week Frequency of Social Gatherings with Friends and Family: Once a week Attends Cheondoism Services: Never Active Member of Clubs or Organizations: No Attends Club or Organization Meetings: Never Marital Status: Housing Stability: Low Risk (03/26/2025) Housing Stability Vital Sign Unable to Pay for Housing in the Last Year: No Number of Times Moved in the Last Year: 0 Homeless in the Last Year: No Magdalene Ayala PA-C 05/20/252029 Cosigned by Abner Azul MD at 05/21/2025 3:04 AM EDT [facility] 05-20-2025 Physician Emergency department Note Patient: Lexis Nguyen : 1985 Date of Evaluation: 05/20/2025 ED Supervising Physician: Abner Azul MD I personally evaluated Lexis Nguyen and made/approved the management plan and take responsibility for the patient management. This will serve as my Supervisory note and shared attestation. I did perform a substantive portion of the visit including all aspects of the Medical Decision Making. I wore appropriate PPE for the entirety of this encounter. In brief, Lexis Nguyen is a 40 y.o. that presents to the emergency department with abdominal pain and nausea. States she has a history of a Krystal-en-Y gastric bypass done 10 years ago. [place] States that today she developed severe epigastric pain which she describes as sharp, ache, constant. Associated with nausea. Denies fever, diarrhea or vomiting at this time. Workup here in the department has been remarkable for a CT concerning for possible ileus. I am concerned for possible internal hernia given her symptoms. Will continue to treat her pain, consult bariatric surgery, and reassess. The differential diagnosis associated with this patient's presentation includes acute small bowel obstruction, acute pancreatitis, acute gastritis, acute ileus, acute internal hernia. Diagnostics interpreted by me: I personally discussed the patient's management with other clinicians: All diagnostic, treatment, and disposition decisions were made by myself in conjunction with the PILAR. For all further details of the patient's emergency department visit, please see their documentation. (Comment: Please note this report has been produced using speech recognition software and may contain errors related to that system including errors in grammar, punctuation, and spelling, as well as words and phrases that may be inappropriate. If there are any questions or concerns please feel free to contact the dictating provider for clarification.) Abner Azul MD [facility] CHIEF COMPLAINT Chief Complaint Patient presents with Abdominal Pain Nursing Notes were reviewed. Limitations to history: None Outside historians: None REVIEW OF SYSTEMS Review of Systems Pertinent positives and negatives as per HPI. PAST MEDICAL HISTORY Medical History[1] SURGICAL HISTORY Surgical History[2] CURRENT MEDICATIONS Previous Medications AMITRIPTYLINE (ELAVIL) 25 MG TABLET Take 25 mg by mouth Nightly. ARIPIPRAZOLE (ABILIFY) 5 MG TABLET Take 5 mg by mouth daily. CALCIUM CITRATE 1040 MG TABLET Take by mouth 3 times a day. CHOLECALCIFEROL (VITAMIN D-3) 25 MCG (1000 UT) TABLET Take 1,000 Units by mouth in the morning. DULOXETINE (CYMBALTA) [address] CAPSULE Take 60 mg by mouth 2 times daily. LACOSAMIDE (VIMPAT) 150 MG TABLET TABLET Take 200 mg by mouth 2 times daily. LORAZEPAM (ATIVAN) 0.5 MG TABLET lorazepam 0.5 mg tablet METFORMIN (GLUCOPHAGE) 500 MG TABLET Take 500 mg by mouth daily. METHOCARBAMOL (ROBAXIN) 500 MG TABLET Take 1 tablet (500 mg) by mouth 2 times daily for 10 days. MULTIPLE VITAMINS-MINERALS (ONCOVITE) TABLET Take 1 tablet by mouth in the morning and 1 tablet in the evening. NORETHINDRONE (ORTHO MICRONOR) 0.35 MG TABLET Take 1 tablet (0.35 mg) by mouth daily. OXYCODONE (ROXICODONE) 5 MG IMMEDIATE RELEASE TABLET Take 1 tablet (5 mg) by mouth every 8 hours as needed for severe pain (7-10) for up to 13 doses. SEMAGLUTIDE, 1 MG/DOSE, SC Inject 1 mL under the skin 1 (one) time per week. TRAMADOL (ULTRAM) 50 MG TABLET Take 50 mg by mouth 2 times daily. ALLERGIES Nortriptyline, Nsaids, Other, Gabapentin, and Penicillins FAMILY HISTORY Family History[3] SOCIAL HISTORY Social History[4] SCREENINGS PHYSICAL EXAM ED Triage Vitals [05/20/25 1756] Temp Heart Rate Resp BP 36.4 C (97.5 F) 86 20 (!) 147/90 SpO2 Temp Source Heart Rate Source Patient Position 100 % Temporal Monitor Sitting BP Location FiO2 (%) Left arm -- Physical Exam Vitals and nursing note reviewed. Constitutional: General: She is in acute distress. Appearance: She is well-developed. HENT: Head: Normocephalic and atraumatic. Eyes: Conjunctiva/sclera: Conjunctivae normal. Cardiovascular: Rate and Rhythm: Normal rate and regular rhythm. Pulmonary: Effort: Pulmonary effort is normal. No respiratory distress. Abdominal: Palpations: Abdomen is soft. Comments: Epigastric/right upper quadrant tenderness to palpation Musculoskeletal: General: No swelling. Cervical back: Neck supple. Skin: General: Skin is warm and dry. Neurological: Mental Status: She is alert. Psychiatric: Mood and Affect: Mood normal. DIAGNOSTIC RESULTS Procedures/EKG: Physician EKG interpretation can be found in [facility] RADIOLOGY (Per Emergency Physician): Interpretation per the Radiologist below, if available at the time of this note: CT abdomen pelvis wo IV contrast Final Result Mild gaseous distention of bowel loops with evidence of bariatric surgery. Ileus is most likely Report Dictated on Electronically Signed By: Abner Ritchie MD Electronically Signed Date/Time: 05/20/2025 6:55 PM EDT ED BEDSIDE ULTRASOUND: Performed by ED Physician - none LABS: Labs Reviewed CBC WITH AUTO DIFFERENTIAL - Abnormal Result Value Auto WBC 11.3 (*) RBC 4.42 Hemoglobin 13.6 Hematocrit 41.0 MCV 92.8 MCH 30.8 MCHC 33.2 RDW 13.2 Platelets 270 MPV 9.7 nRBC 0.0 Neutrophils Relative 66.4 Lymphocytes Relative 24.6 Monocytes Relative 7.1 Eosinophils Relative 1.0 Basophils Relative 0.5 Immature Grans % 0.4 Neutrophils Absolute 7.5 Lymphocytes Absolute 2.8 Monocytes Absolute 0.8 Eosinophils Absolute 0.1 Basophils Absolute 0.1 Immature Grans Absolute 0.0 LIPASE - Abnormal LIPASE 59 (*) COMPLETE URINALYSIS WITH REFLEX TO CULTURE - Abnormal Color, Urine Colorless Clarity, Urine Clear pH, Urine 5.5 Leukocytes, Urine Negative Nitrite, Urine Negative Protein, Urine Negative Glucose, Urine Normal Bilirubin, Urine Negative Ketones, Urine Trace (*) Urobilinogen, Urine Normal Blood, Urine Negative SPECIFIC GRAVITY OF URINE (NUMERIC) 1.005 Narrative: A specimen with <=10 WBC is not consistent with inflammation. This specimen will not reflex to a urine culture. COMPREHENSIVE METABOLIC PANEL - Normal SODIUM 138 POTASSIUM 3.9 CHLORIDE 103 CARBON DIOXIDE 24 ANION GAP 11 UREA NITROGEN 8 CREATININE 0.70 GLUCOSE 85 CALCIUM 8.7 AST (SGOT) 20 ALT 21 ALKALINE PHOSPHATASE 100 ALBUMIN 3.7 BILIRUBIN, TOTAL 0.3 TOTAL PROTEIN 6.6 eGFR >90.0 HIGH SENSITIVITY TROPONIN, SERIAL BASELINE - Normal Troponin HS Serial Baseline <3 LACTIC ACID WITH REFLEX - Normal LACTIC ACID 0.7 HCG QUALITATIVE URINE HCG,URINE QUAL Negative Narrative: is the most common reason for HCG in urine, although choriocarcinoma, hydatidiform mole, and certain nontrophoblastic malignancies also result in detectable urinary HCG levels. Sensitivity = 20mIU/mL. All other labs were within normal range or not returned as of this dictation. EMERGENCY DEPARTMENT COURSE and DIFFERENTIAL DIAGNOSIS/MDM: Vitals: Vitals: 05/20/25 1756 BP: (!) 147/90 BP Location: Left arm Patient Position: Sitting Pulse: 86 Resp: 20 Temp: 36.4 C (97.5 F) TempSrc: Temporal SpO2: 100% Weight: 109 kg (240 lb) Height: 1.626 m (5' 4) Diagnoses as of 05/20/252027 Abdominal pain, epigastric History of bariatric surgery Medications ondansetron (Zofran) injection 4 mg (4 mg IntraVENous Given 05/20/251822) morphine injection 4 mg (4 mg IntraVENous Given 05/20/251823) sodium chloride 0.9 % bolus 1,000 mL (1,000 mL IntraVENous New Bag 05/20/251822) ketorolac (Toradol) injection 15 mg (15 mg IntraVENous Given 05/20/251906) dicyclomine (Bentyl) injection 20 mg (20 mg IntraMUSCular Given 05/20/251907) HYDROmorphone (Dilaudid) injection 0.5 mg (0.5 mg IntraVENous Given 05/20/251999) REVAL: On reassessment we talk to the patient about her test results. We discussed the case with bariatric surgery Dr. Soto who would like us to transfer the patient to [place] ER for surgical evaluation. CRITICAL CARE TIME CONSULTS: None PROCEDURES: Unless otherwise noted below, none Procedures Patients symptoms are consistent with sepsis, severe sepsis, or septic shock (If yes use .sepsiscoremeasure): No FINAL IMPRESSION 1. Abdominal pain, epigastric 2. History of bariatric surgery DISPOSITION Transfer To [facility] Ed 05/20/2025 08:24:34 PM PATIENT REFERRED TO: No follow-up provider specified. DISCHARGE MEDICATIONS: New Prescriptions No medications on file (Comment: Please note this report has been produced using speech recognition software and may contain errors related to that system including errors in grammar, punctuation, and spelling, as well as words and phrases that may be inappropriate. If there are any questions or concerns please feel free to contact the dictating provider for clarification.) Abner Azul MD (electronically signed) Emergency Medicine Provider [1] Past Medical History: Diagnosis Date Abdominal pain Anxiety Arthritis Back pain Blurred vision Depression GERD (gastroesophageal reflux disease) H/O gastric bypass 02/07/2025 [facility] 2013 [place] Hip pain Intestinal malabsorption 02/07/2025 Knee pain Seizures (HCC) SOB (shortness of breath) [2] Past Surgical History: Procedure Laterality Date APPENDECTOMY BRAIN SURGERY CLAVICLE SURGERY FRACTURE SURGERY GALLBLADDER SURGERY GASTRIC BYPASS 01/23/2014 [facility] - Dr Sumeet Mar [place]. HYSTERECTOMY TONSILLECTOMY [3] Family History Problem Relation Name Age of Onset Obesity Paternal Grandmother Diabetes Paternal Grandmother Hypertension Paternal Grandmother Obesity Maternal Grandmother Hypertension Maternal Grandmother Obesity Maternal Grandfather Diabetes Maternal Grandfather Hypertension Maternal Grandfather Heart disease Maternal Grandfather Arthritis Father Raymond Cancer Father Raymond Depression Father Raymond Diabetes Father Raymond Hypertension Father Raymond Mental illness Father Raymond Stroke Father Raymond Obesity Father Raymond Asthma Mother Sarah COPD Mother Sarah Obesity Mother Sarah Hypertension Mother Sarah Obesity Brother Hypertension Brother Breast cancer Neg Hx Ovarian cancer Neg Hx [4] Social History Socioeconomic History Marital status: Tobacco Use Smoking status: Never Smokeless tobacco: Never Substance and Sexual Activity Alcohol use: Not Currently Drug use: Yes Types: Marijuana Comment: medical marijuana Sexual activity: Yes Partners: Male control/protection: Female Sterilization Comment: Hysterectomy Social Drivers of Health Financial Resource Strain: Low Risk (03/26/2025) Overall Financial Resource Strain (CARDIA) Difficulty of Paying Living Expenses: Not very hard Food Insecurity: No Food Insecurity (03/26/2025) Hunger Vital Sign Worried About Running Out of Food in the Last Year: Never true Ran Out of Food in the Last Year: Never true Transportation Needs: Unmet Transportation Needs (03/26/2025) PRAPARE - Transportation Lack of Transportation (Medical): Yes Lack of Transportation (Non-Medical): No Physical Activity: Insufficiently Active (03/26/2025) Exercise Vital Sign Days of Exercise per Week: 2 days Minutes of Exercise per Session: 30 min Stress: No Stress Concern Present (03/26/2025) [place] [employer] - Occupational Stress Questionnaire Feeling of Stress : Only a little Social Connections: Moderately Isolated (03/26/2025) Social Connection and Isolation Panel [NHANES] Frequency of Communication with Friends and Family: More than three times a week Frequency of Social Gatherings with Friends and Family: Once a week Attends Cheondoism Services: Never Active Member of Clubs or Organizations: No Attends Club or Organization Meetings: Never Marital Status: Housing Stability: Low Risk (03/26/2025) Housing Stability Vital Sign Unable to Pay for Housing in the Last Year: No Number of Times Moved in the Last Year: 0 Homeless in the Last Year: No Abner Azul MD 05/20/252027 [facility] [employer] Work Phone: 05-03-2025 Emergency department Note Pt reports improved symptoms. Updated by Dr. Roy regarding plan to dc home. [facility] 05-03-2025 Emergency department Note Pt reports improved symptoms. Updated by Dr. Roy regarding plan to dc home. documented in this encounter [facility] 05-03-2025 Hospital Discharg e instructions Randall Roy Jr., DO - 05/03/2025 10:23 AM EDT Thank you for choosing [facility] Emergency Department and allowing me to take care of you to date. If your symptoms are not improving, begin to worsen, new symptoms develop/additional concerns arise, please return to the Emergency Department at any time for further evaluation and treatment. . Dr. Randall Roy Jr. D.O. 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 ONLY take medication for length of time and frequency as ABSOLUTELY needed due to known side effects and addictive potential, when no longer needed, properly dispose of or otherwise destroy medication The following attachments cannot be sent through Care Everywhere.Opioids for Short-Term Treatment of Pain ED ([place]gr[place])Low Back Pain Discharge Instructions ([place]in)documented in this encounter [facility] 03-29-2025 History of Presen t illness Narrative Subjective Patient ID: Lexis Nguyen is a 40 y.o. female who presents for Follow-up (ED 02/12 & 03/28 - Ovarian Cyst - states she is concerned for the cysts on both ovaries. Had a hysterectomy. Had imaging done at ED ). The pt present for consultation. She was seen in the ER in January due to severe pelvic pain. On eval a large cyst was seen. She was tx with analgesic and dc to home and referred to litigation attorney. She was seen again yesterday for similar painin the rlq with radiation to the right groin. Of note she had a spinal tap on 03/27 for tx of PERALTA. Yesterday she began to have the rlq pain with tingling in the right leg. The CT was neg. She was told that a a nerve bundle was possibly hit At the present time, her discomfort is minimal. She rates her pelvic discomfort as a 1-2/10. Review of Systems Genitourinary: Positive for pelvic pain. All other systems reviewed and are negative. Objective Physical Exam Constitutional: General: She is not in acute distress. Appearance: Normal appearance. She is obese. She is not ill-appearing, toxic-appearing or diaphoretic. HENT: Nose: Nose normal. Eyes: Extraocular Movements: Extraocular movements intact. Conjunctiva/sclera: Conjunctivae normal. Pupils: Pupils are equal, round, and reactive to light. Pulmonary: Effort: No respiratory distress. Abdominal: Palpations: There is no mass. Tenderness: There is no right CVA tenderness, left CVA tenderness, guarding or rebound. Hernia: No hernia is present. Comments: obese Musculoskeletal: General: Normal range of motion. Neurological: General: No focal deficit present. Mental Status: She is alert and oriented to person, place, and time. Psychiatric: Mood and Affect: Mood normal. Behavior: Behavior normal. Thought Content: Thought content normal. Judgment: Judgment normal. 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 Ovaries well within normal size with no abnormalities noted. No signs of torsion present. Assessment/Plan Diagnoses and all orders for this visit: Left lower quadrant abdominal pain - [facility] SECONDARY SET UP MAN Hemorrhagic ovarian cyst - [facility] SECONDARY SET UP MAN During the 30 minute consultation I reviewed her past and present symptoms. After doing so we discussed treatment options. Pt is unable to use NSAIDS which is the gold standard treatment for pain secondary to hemorrhagic corpus luteum cysts. Therefore I suggested use of Progestin therapy using oral low dose oc's . Pt has a hx of over production of CCF and gets frequent spinal taps therefore this modality should be let likely to cause headaches. Pt shows understanding. Follow up prn and in 6 months for re eval documented in this encounter [facility] 03-28-2025 Hospital Discharg e instructions ETHAN Sagastume 03/28/2025 6:50 PM EDT You were seen today for postprocedural pain as well as a history of an LP. Return to the ER with any worsening of your symptoms. In the medical field, there is always a level of diagnostic uncertainty, even if this uncertainty is low. For this reason, it is important to immediately return to the emergency department if you have any new symptoms, worsening symptoms, change of symptoms, or if you have any other concerns. We would be happy to re-evaluate you. Otherwise, please take your medications as prescribed and follow-up as recommended. documented in this encounter [facility] 03-28-2025 Emergency department Note Attempted IV x 2 without success. Was able to draw blood, but catheter wound not advance. [facility] 03-28-2025 Emergency department Note Attempted IV x 2 without success. Was able to draw blood, but catheter wound not advance. Emergency Department Encounter [facility] EMERGENCY DEPT Patient: Lexis Oakes : 1985 Date of Evaluation: 03/28/2025 ED Supervising Physician: Dedra Todd DO I personally evaluated Lexis Oakes and made/approved the management plan and take responsibility for the patient management. This will serve as my Supervisory note and shared attestation. I did perform a substantive portion of the visit including all aspects of the Medical Decision Making. I wore appropriate PPE for the entirety of this encounter. ED Course as of 03/28/25 1848 WedMarch 28, 2025 1623 40-year-old female presents emergency room today with lower back pain and right thigh paresthesias and pain ongoing over the last day. States that yesterday she did have an LP done for idiopathic intracranial hypertension does get recurrent LPs for this. States that it was done at [facility]. States that she had been walking more this weekend and had some heavy lifting a few weeks ago but nothing otherwise out of the ordinary. On exam has tenderness palpation midline and right lumbar paraspinal tenderness. Normal sensation in the lower extremity with positive straight leg raise. 2+ DP pulses in the right lower extremity. High suspicion for radiculopathy. Lower suspicion for spinal epidural abscess given no signs of saddle anesthesia, no urinary or fecal incontinence, no fevers or chills. Will check CBC, BMP, CT lumbar spine. Will give Tylenol, morphine, Norflex and reevaluate. [BM] 1842 1. Imaging does not explain the patient's clinical symptoms. If clinical symptoms persist, MRI may be of benefit. 2. Mild intrahepatic and extrahepatic biliary ductal distention likely reflects sequela from cholecystectomy, similar to 02/12/2025. 3. Gastric bypass. 4. Small volume of fluid in the pelvic cul-de-sac is likely physiologic in etiology. Hysterectomy. Bilateral ovarian cysts (left cyst has decreased in size compared to 02/12/2025). No follow-up required. 5. Appendectomy. [BM] 1846 Having some pain we will give more pain control plan on close that patient follow-up with her primary care team and told to return to the ED for any worsening symptoms. [BM] ED Course User Index [BM] Dedra Todd DO Diagnoses as of 03/28/25 1848 Other acute postprocedural pain History of lumbar puncture Diagnostics interpreted by me: CT scan(s) no evidence of fracture or hematoma seen on CT lumbar spine I personally discussed the patient's management with other clinicians: none All diagnostic, treatment, and disposition decisions were made by myself in conjunction with the PILAR. For all further details of the patient's emergency department visit, please see their documentation. (Comment: Please note this report has been produced using speech recognition software and may contain errors related to that system including errors in grammar, punctuation, and spelling, as well as words and phrases that may be inappropriate. If there are any questions or concerns please feel free to contact the dictating provider for clarification.) Dedra Todd DO [employer] Dedra Todd DO 03/28/251843 Dedra Todd DO 03/28/251846 documented in this encounter [facility] 03-28-2025 Physician Emergency department Note Emergency Department Encounter [facility] EMERGENCY DEPT Patient: Lexis Oakes : 1985 Date of Evaluation: 03/28/2025 ED Supervising Physician: Dedra Todd DO I personally evaluated Lexis Oakes and made/approved the management plan and take responsibility for the patient management. This will serve as my Supervisory note and shared attestation. I did perform a substantive portion of the visit including all aspects of the Medical Decision Making. I wore appropriate PPE for the entirety of this encounter. ED Course as of 03/28/251847March 28, 2025 1623 40-year-old female presents emergency room today with lower back pain and right thigh paresthesias and pain ongoing over the last day. States that yesterday she did have an LP done for idiopathic intracranial hypertension does get recurrent LPs for this. States that it was done at [facility]. States that she had been walking more this weekend and had some heavy lifting a few weeks ago but nothing otherwise out of the ordinary. On exam has tenderness palpation midline and right lumbar paraspinal tenderness. Normal sensation in the lower extremity with positive straight leg raise. 2+ DP pulses in the right lower extremity. High suspicion for radiculopathy. Lower suspicion for spinal epidural abscess given no signs of saddle anesthesia, no urinary or fecal incontinence, no fevers or chills. Will check CBC, BMP, CT lumbar spine. Will give Tylenol, morphine, Norflex and reevaluate. [BM] 1842 1. Imaging does not explain the patient's clinical symptoms. If clinical symptoms persist, MRI may be of benefit. 2. Mild intrahepatic and extrahepatic biliary ductal distention likely reflects sequela from cholecystectomy, similar to 02/12/2025. 3. Gastric bypass. 4. Small volume of fluid in the pelvic cul-de-sac is likely physiologic in etiology. Hysterectomy. Bilateral ovarian cysts (left cyst has decreased in size compared to 02/12/2025). No follow-up required. 5. Appendectomy. [BM] 1846 Having some pain we will give more pain control plan on close that patient follow-up with her primary care team and told to return to the ED for any worsening symptoms. [BM] ED Course User Index [BM] Dedra Todd DO Diagnoses as of 03/28/251847 Other acute postprocedural pain History of lumbar puncture Diagnostics interpreted by me: CT scan(s) no evidence of fracture or hematoma seen on CT lumbar spine I personally discussed the patient's management with other clinicians: none All diagnostic, treatment, and disposition decisions were made by myself in conjunction with the [facility]. For all further details of the patient's emergency department visit, please see their documentation. (Comment: Please note this report has been produced using speech recognition software and may contain errors related to that system including errors in grammar, punctuation, and spelling, as well as words and phrases that may be inappropriate. If there are any questions or concerns please feel free to contact the dictating provider for clarification.) Dedra Todd DO [employer] Dedra Todd DO 03/28/251843 Dedra Todd DO 03/28/251846 [employer] Phone: 03-12-2025 Procedure note Endoscopy Center- [facility] Patient Name: Lexis Oakes Procedure Date: 03/12/2025 8:55 AM Gender: Female Date of : 1985 Age: 40 Admit Type: Outpatient Note Status: Finalized Endoscopist: Marco Antonio Soto MD, [id number] Procedure: Upper GI endoscopy Indications: Epigastric abdominal pain, Dysphagia, Nausea with vomiting, Vomiting after Bariatric Surgery Findings: Evidence of a Krystal-en-Y gastrojejunostomy was found. The gastrojejunal anastomosis was characterized by healthy appearing mucosa and an intact appearance. This was traversed. The pouch was horizontal and very small at less than 1 cm. The eorfy-xw-xpggvsr limb was characterized by healthy appearing mucosa. There was no evidence of narrowing or ulcer at the gastrojejunal anastomosis. Normal postoperative anatomy. Biopsy with a cold forceps in the cardia was performed for Helicobacter pylori testing. Impression: - Krystal-en-Y gastrojejunostomy with gastrojejunal anastomosis characterized by healthy appearing mucosa and an intact appearance. - There was no evidence of narrowing or ulcer at the gastrojejunal anastomosis. Normal postoperative anatomy. - Biopsy was performed in the cardia. Recommendation: - Resume previous diet. - Continue present medications. - Patient has a contact number available for emergencies. The signs and symptoms of potential delayed complications were discussed with the patient. Return to normal activities tomorrow. Written discharge instructions were provided to the patient. Medicines: Monitored Anesthesia Care Procedure: Pre-Anesthesia Assessment: - The anesthesia plan was to use monitored anesthesia care (MAC). - Prior to the procedure, a History and Physical was performed, and patient medications and allergies were reviewed. The patient's tolerance of previous anesthesia was also reviewed. The risks and benefits of the procedure and the sedation options and risks were discussed with the patient. All questions were answered, and informed consent was obtained. Prior Anticoagulants: The patient has taken no anticoagulant or antiplatelet agents. ASA Grade Assessment: II - A patient with mild systemic disease. After reviewing the risks and benefits, the patient was deemed in satisfactory condition to undergo the procedure. After obtaining informed consent, the endoscope was passed under direct vision. Throughout the procedure, the patient's blood pressure, pulse, and oxygen saturations were monitored continuously. The Endoscope was introduced through the mouth, and advanced to the proximal jejunum. The upper GI endoscopy was accomplished without difficulty. The patient tolerated the procedure well. Complications: No immediate complications. Procedure Code(s): --- Professional --- 43828, Esophagogastroduodenoscopy, flexible, transoral; with biopsy, single or multiple --- Technical --- 90588, Esophagogastroduodenoscopy, flexible, transoral; with biopsy, single or multiple Diagnosis Code(s): --- Professional --- Z98.0, Intestinal bypass and anastomosis status R10.13, Epigastric pain R13.10, Dysphagia, unspecified R11.2, Nausea with vomiting, unspecified --- Technical --- Z98.0, Intestinal bypass and anastomosis status R10.13, Epigastric pain R13.10, Dysphagia, unspecified R11.2, Nausea with vomiting, unspecified CPT copyright 2021 [employer]. All rights reserved. The codes documented in this report are preliminary and upon manager metal review may be revised to meet current compliance requirements. Attending Participation: I personally performed the entire procedure. Marco Antonio Soto MD 03/12/2025 9:23:31 AM This report has been signed electronically. Number of Addenda: 0 Note Initiated On: 03/12/2025 8:55 AM [employer] Phone: 03-12-2025 [facility] Name: Lexis Oakes Procedure Date: 03/12/2025 8:55 AM Gender: Female Date of : 1985 Age: 40 Admit Type: Outpatient Note Status: Finalized Endoscopist: Marco Antonio Soto MD, [id number] Procedure: Upper GI endoscopy Indications: Epigastric abdominal pain, Dysphagia, Nausea with vomiting, Vomiting after Bariatric Surgery Findings: Evidence of a Krystal-en-Y gastrojejunostomy was found. The gastrojejunal anastomosis was characterized by healthy appearing mucosa and an intact appearance. This was traversed. The pouch was horizontal and very small at less than 1 cm. The khhpl-ln-gtqgxjh limb was characterized by healthy appearing mucosa. There was no evidence of narrowing or ulcer at the gastrojejunal anastomosis. Normal postoperative anatomy. Biopsy with a cold forceps in the cardia was performed for Helicobacter pylori testing. Impression: - Krystal-en-Y gastrojejunostomy with gastrojejunal anastomosis characterized by healthy appearing mucosa and an intact appearance. - There was no evidence of narrowing or ulcer at the gastrojejunal anastomosis. Normal postoperative anatomy. - Biopsy was performed in the cardia. Recommendation: - Resume previous diet. - Continue present medications. - Patient has a contact number available for emergencies. The signs and symptoms of potential delayed complications were discussed with the patient. Return to normal activities tomorrow. Written discharge instructions were provided to the patient. Medicines: Monitored Anesthesia Care Procedure: Pre-Anesthesia Assessment: - The anesthesia plan was to use monitored anesthesia care (MAC). - Prior to the procedure, a History and Physical was performed, and patient medications and allergies were reviewed. The patient's tolerance of previous anesthesia was also reviewed. The risks and benefits of the procedure and the sedation options and risks were discussed with the patient. All questions were answered, and informed consent was obtained. Prior Anticoagulants: The patient has taken no anticoagulant or antiplatelet agents. ASA Grade Assessment: II - A patient with mild systemic disease. After reviewing the risks and benefits, the patient was deemed in satisfactory condition to undergo the procedure. After obtaining informed consent, the endoscope was passed under direct vision. Throughout the procedure, the patient's blood pressure, pulse, and oxygen saturations were monitored continuously. The Endoscope was introduced through the mouth, and advanced to the proximal jejunum. The upper GI endoscopy was accomplished without difficulty. The patient tolerated the procedure well. Complications: No immediate complications. Procedure Code(s): --- Professional --- 35465, Esophagogastroduodenoscopy, flexible, transoral; with biopsy, single or multiple --- Technical --- 33054, Esophagogastroduodenoscopy, flexible, transoral; with biopsy, single or multiple Diagnosis Code(s): --- Professional --- Z98.0, Intestinal bypass and anastomosis status R10.13, Epigastric pain R13.10, Dysphagia, unspecified R11.2, Nausea with vomiting, unspecified --- Technical --- Z98.0, Intestinal bypass and anastomosis status R10.13, Epigastric pain R13.10, Dysphagia, unspecified R11.2, Nausea with vomiting, unspecified CPT copyright 2022 [employer]. All rights reserved. The codes documented in this report are preliminary and upon manager metal review may be revised to meet current compliance requirements. Attending Participation: I personally performed the entire procedure. Marco Antonio Soto MD 03/12/2025 9:23:31 AM This report has been signed electronically. Number of Addenda: 0 Note Initiated On: 03/12/2025 8:55 AM documented in this encounter [facility] 03-12-2025 History and physical note Department of General Surgery History and Physical PATIENT NAME: Lexis Oakes DATE OF : 1985 ADMISSION DATE: 03/12/2025 7:52 AM TODAY'S DATE: 03/12/2025 HISTORY OF PRESENT ILLNESS: The patient is a 40 y.o. 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 Small HH on recent UGI. Thoroughly reviewed the patient's medical history, family history, social history and review of systems with the patient today in the office. Please see medical record for pertinent positives. Past Medical History: Past Medical History: Diagnosis Date Abdominal pain Anxiety Arthritis Back pain Blurred vision Depression GERD (gastroesophageal reflux disease) H/O gastric bypass 02/07/2025 [facility] 2013 [place] Hip pain Intestinal malabsorption 02/07/2025 Knee pain Seizures (HCC) SOB (shortness of breath) Past Surgical History: Past Surgical History: Procedure Laterality Date APPENDECTOMY BRAIN SURGERY CLAVICLE SURGERY FRACTURE SURGERY GALLBLADDER SURGERY GASTRIC BYPASS 01/23/2014 [facility] - Dr Sumeet Mar [place]. HYSTERECTOMY TONSILLECTOMY Medications Prior to Admission: Current Facility-Administered Medications Medication Dose Route Frequency Provider Last Rate Last Admin ondansetron (Zofran) injection 4 mg 4 mg IntraVENous Once PRN KRISHAN Layne CNP sodium chloride 0.9 % infusion 50 mL/hr IntraVENous Continuous Rebeca Hua APRN - [facility] Allergies: Nortriptyline, Nsaids, Other, Gabapentin, and Penicillins Social History Socioeconomic History Marital status: Single Tobacco Use Smoking status: Never Smokeless tobacco: Never Substance and Sexual Activity Alcohol use: Not Currently Drug use: Yes Types: Marijuana Comment: medical marijuana Sexual activity: Yes Partners: Male control/protection: Female Sterilization Comment: Hysterectomy Social Drivers of Health Financial Resource Strain: Low Risk (03/15/2023) Received from [facility] Overall Financial Resource Strain (CARDIA) Difficulty of Paying Living Expenses: Not hard at all Food Insecurity: No Food Insecurity (03/15/2023) Received from [facility] Hunger Vital Sign Worried About Running Out of Food in the Last Year: Never true Ran Out of Food in the Last Year: Never true Transportation Needs: No Transportation Needs (03/15/2023) Received from [facility] PRAPARE - Transportation Lack of Transportation (Medical): No Lack of Transportation (Non-Medical): No Housing Stability: Unknown (03/15/2023) Received from [facility] Housing Stability Vital Sign Unable to Pay for Housing in the Last Year: No Unstable Housing in the Last Year: No Family History Problem Relation Name Age of Onset Asthma Mother Sarah COPD Mother Sarah Obesity Mother Sarah Hypertension Mother Sarah Arthritis Father Raymond Cancer Father Raymond Depression Father Raymond Diabetes Father Raymond Hypertension Father Raymond Mental illness Father Raymond Stroke Father Raymond Obesity Father Raymond Obesity Brother Hypertension Brother Obesity Paternal Grandmother Diabetes Paternal Grandmother Hypertension Paternal Grandmother Obesity Maternal Grandfather Diabetes Maternal Grandfather Hypertension Maternal Grandfather Heart disease Maternal Grandfather Obesity Maternal Grandmother Hypertension Maternal Grandmother REVIEW OF SYSTEMS: CONSTITUTIONAL: Negative for fatigue, and unexpected weight change RESPIRATORY: Negative for cough, SOB, and wheezing CARDIOVASCULAR: Negative for chest pains and palpatations GASTROINTESTINAL: GERD HEMATOLOGIC/LYMPHATIC: Negative for adenopathy. Does not bruise/bleed easily. NEUROLOGICAL: Negative for seizures and syncope * All other ROS reviewed see HPI for pertinent positives and negatives. PHYSICAL EXAM: VITALS: Vitals: 03/12/25 0809 BP: 106/72 Pulse: 81 Resp: 16 Temp: 36.1 C (96.9 F) SpO2: 100% GENERAL: Oriented to person, place, and time. Appears well nourished. No distress ENT: Normocepalic,atraumatic, without obvious abnormality NECK: supple, symmetrical, trachea midline LUNGS: Resp effort easy and unlabored, breath sounds normal CARDIOVASCULAR: RRR, No murmur ABDOMEN: Soft, non-tender, no open wounds. MUSCULOSKELETAL: Normal range of motion, ambulatory without assistance NEUROLOGIC: No focal neurologic deficits IMPRESSION/RECOMMENDATIONS: EGD with Biopsy Patient counseled on risks, benefits, and alternatives of treatment plan at length. Patient states an understanding and willingness to proceed with plan. Jovita Almanzar MD General Surgery Resident 03/12/25 8:12 AM Cosigned by Marco Antonio Soto MD at 03/12/2025 8:47 AM EDT [employer] Phone: 03-12-2025 Note [facility] 03-12-2025 History and physical note Department of General Surgery History and Physical PATIENT NAME: Lexis Oakes DATE OF : 1985 ADMISSION DATE: 03/12/2025 7:52 AM TODAY'S DATE: 03/12/2025 HISTORY OF PRESENT ILLNESS: The patient is a 40 y.o. 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 Small HH on recent UGI. Thoroughly reviewed the patient's medical history, family history, social history and review of systems with the patient today in the office. Please see medical record for pertinent positives. Past Medical History: Past Medical History: Diagnosis Date Abdominal pain Anxiety Arthritis Back pain Blurred vision Depression GERD (gastroesophageal reflux disease) H/O gastric bypass 02/07/2025 [facility] 2013 [place] Hip pain Intestinal malabsorption 02/07/2025 Knee pain Seizures (HCC) SOB (shortness of breath) Past Surgical History: Past Surgical History: Procedure Laterality Date APPENDECTOMY BRAIN SURGERY CLAVICLE SURGERY FRACTURE SURGERY GALLBLADDER SURGERY GASTRIC BYPASS 01/23/2014 [facility] - Dr Sumeet Mar [place]. HYSTERECTOMY TONSILLECTOMY Medications Prior to Admission: Current Facility-Administered Medications Medication Dose Route Frequency Provider Last Rate Last Admin ondansetron (Zofran) injection 4 mg 4 mg IntraVENous Once PRN KRISHAN Layne CNP sodium chloride 0.9 % infusion 50 mL/hr IntraVENous Continuous RebecaKRISHAN Sims CNP Allergies: Nortriptyline, Nsaids, Other, Gabapentin, and Penicillins Social History Socioeconomic History Marital status: Single Tobacco Use Smoking status: Never Smokeless tobacco: Never Substance and Sexual Activity Alcohol use: Not Currently Drug use: Yes Types: Marijuana Comment: medical marijuana Sexual activity: Yes Partners: Male control/protection: Female Sterilization Comment: Hysterectomy Social Drivers of Health Financial Resource Strain: Low Risk (03/15/2023) Received from [facility] Overall Financial Resource Strain (CARDIA) Difficulty of Paying Living Expenses: Not hard at all Food Insecurity: No Food Insecurity (03/15/2023) Received from [facility] Hunger Vital Sign Worried About Running Out of Food in the Last Year: Never true Ran Out of Food in the Last Year: Never true Transportation Needs: No Transportation Needs (03/15/2023) Received from [facility] PRAPARE - Transportation Lack of Transportation (Medical): No Lack of Transportation (Non-Medical): No Housing Stability: Unknown (03/15/2023) Received from [facility] Housing Stability Vital Sign Unable to Pay for Housing in the Last Year: No Unstable Housing in the Last Year: No Family History Problem Relation Name Age of Onset Asthma Mother Sarah COPD Mother Sarah Obesity Mother Sarha Hypertension Mother Sarah Arthritis Father Raymond Cancer Father Raymond Depression Father Raymond Diabetes Father Raymond Hypertension Father Raymond Mental illness Father Raymond Stroke Father Raymond Obesity Father Raymond Obesity Brother Hypertension Brother Obesity Paternal Grandmother Diabetes Paternal Grandmother Hypertension Paternal Grandmother Obesity Maternal Grandfather Diabetes Maternal Grandfather Hypertension Maternal Grandfather Heart disease Maternal Grandfather Obesity Maternal Grandmother Hypertension Maternal Grandmother REVIEW OF SYSTEMS: CONSTITUTIONAL: Negative for fatigue, and unexpected weight change RESPIRATORY: Negative for cough, SOB, and wheezing CARDIOVASCULAR: Negative for chest pains and palpatations GASTROINTESTINAL: GERD HEMATOLOGIC/LYMPHATIC: Negative for adenopathy. Does not bruise/bleed easily. NEUROLOGICAL: Negative for seizures and syncope * All other ROS reviewed see HPI for pertinent positives and negatives. PHYSICAL EXAM: VITALS: Vitals: 03/12/25 0809 BP: 106/72 Pulse: 81 Resp: 16 Temp: 36.1 C (96.9 F) SpO2: 100% GENERAL: Oriented to person, place, and time. Appears well nourished. No distress ENT: Normocepalic,atraumatic, without obvious abnormality NECK: supple, symmetrical, trachea midline LUNGS: Resp effort easy and unlabored, breath sounds normal CARDIOVASCULAR: RRR, No murmur ABDOMEN: Soft, non-tender, no open wounds. MUSCULOSKELETAL: Normal range of motion, ambulatory without assistance NEUROLOGIC: No focal neurologic deficits IMPRESSION/RECOMMENDATIONS: EGD with Biopsy Patient counseled on risks, benefits, and alternatives of treatment plan at length. Patient states an understanding and willingness to proceed with plan. Jovita Almanzar MD General Surgery Resident 03/12/25 8:12 AM Cosigned by Marco Antonio Soto MD at 03/12/2025 8:47 AM EDT documented in this encounter [facility] 02-13-2025 History of Presen t illness Narrative ENDOSCOPY ORDERS To be scheduled with: Dr. Soto Patient is: Post-op CPT code: EGD with biopsy- CPT 13449 Diagnosis: Abdominal pain- R10.84 If pre-op, Diet & Exercise Requirements are, and started/scheduled on : Other: post op Home O2: No Known Difficult Intubation: No The medication list needs reviewed at time of scheduling and again at time of reminder call. GLP-1 agonists: Semaglutide Brand names- Ozempic, Wegovy or Rybelsus needs held 1 week prior to procedure Tirzepatide Brand names- Mounjaro or Zepbound- needs held 1 week prior to procedure Dulaglutide (Trulicity)- needs held 1 week prior to procedure Liraglutide (Victoza)- daily injectable that just needs held 1 day before procedure) Exenatide Brand name Bydureon- needs held 1 week prior to procedure Brand name Byetta- daily injectable and just needs held 1 day before procedure Blood thinners: Aspirin Xarleto (rivaroxaban) Eliquis (apixaban) Plavix (clopidogrel) Warfarin/Jantoven (coumadin) Brillinta (ticagrelor) Pradaxa (dabigatran) SGLT2 inhibitors: Invokana (canagliflozin) Farxiga (dapaglifozin) Jardiance (empagliflozin) Steglatro (ertugliflozin) Brenzavvy (bexagliflozin) If endoscopy is scheduled within 17 days authorization will need to be obtained prior to scheduling Printed, given to scheduler maintenance. 1ST attempt: my chart sent to pt to call and schedule EGD. documented in this encounter [facility] 02-13-2025 History of Presen t illness Narrative ENDOSCOPY ORDERS To be scheduled with: Dr. Soto Patient is: Post-op CPT code: EGD with biopsy- CPT 16333 Diagnosis: Abdominal pain- R10.84 If pre-op, Diet & Exercise Requirements are, and started/scheduled on : Other: post op Home O2: No Known Difficult Intubation: No The medication list needs reviewed at time of scheduling and again at time of reminder call. GLP-1 agonists: Semaglutide Brand names- Ozempic, Wegovy or Rybelsus needs held 1 week prior to procedure Tirzepatide Brand names- Mounjaro or Zepbound- needs held 1 week prior to procedure Dulaglutide (Trulicity)- needs held 1 week prior to procedure Liraglutide (Victoza)- daily injectable that just needs held 1 day before procedure) Exenatide Brand name Bydureon- needs held 1 week prior to procedure Brand name Byetta- daily injectable and just needs held 1 day before procedure Blood thinners: Aspirin Xarleto (rivaroxaban) Eliquis (apixaban) Plavix (clopidogrel) Warfarin/Jantoven (coumadin) Brillinta (ticagrelor) Pradaxa (dabigatran) SGLT2 inhibitors: Invokana (canagliflozin) Farxiga (dapaglifozin) Jardiance (empagliflozin) Steglatro (ertugliflozin) Brenzavvy (bexagliflozin) If endoscopy is scheduled within 17 days authorization will need to be obtained prior to scheduling Printed, given to scheduler maintenance. 1ST attempt: my chart sent to pt to call and schedule EGD. Patient is scheduled for EGD with biopsy- CPT 18434 on 03/12/25 at 900AM Contact attempts- 3 must be made in 2 different forms. Discussed with patient via phone and sent [employer] message after confirming pt active on [employer] Important info discussed as applicable: Is patient on a GLP-1 agonist? Yes If yes- which one? Semaglutide (Ozempic) Please advise that patient hold this medication for 1 week before EGD (a couple exceptions in list-please note if they are daily only held day prior to procedure) Is patient on a blood thinner? No If yes- which one? N/A Please advise that patient discuss instructions for holding this medication with the prescribing provider Is patient on an SGLT-2 inhibitor? No If yes- which one? N/A Please advise that this medication needs held 3 days prior to EGD Auth required: YES Insurance: [employer] ID number: Authorization number: [id number] Valid dates: 03/12/25-09/08/25 Notes: documented in this encounter [facility] 02-12-2025 Emergency department Note Pt voices understanding to go to the pharmacy listed on discharge paperwork to belt picker prescription listed on paperwork. Pt verbalizes understanding to take as prescribed and if has any questions to speak with pharmacist prior to leaving pharmacy. [facility] 02-12-2025 Emergency department Note Pt voices understanding to go to the pharmacy listed on discharge paperwork to belt picker prescription listed on paperwork. Pt verbalizes understanding to take as prescribed and if has any questions to speak with pharmacist prior to leaving pharmacy. EMERGENCY DEPARTMENT ENCOUNTER Pt Name: Lexis Oakes Birthdate 1985 Date of evaluation: 02/12/2025 ED Provider: Darleen Daniel MD CHIEF COMPLAINT Chief Complaint Patient presents with Abdominal Pain Pt c/o LLQ pain and was seen here yesterday for left hemorrhagic cyst. C/o N/V HISTORY OF PRESENT ILLNESS (Location/Symptom, Timing/Onset, Context/Setting, Quality, Duration, Modifying Factors, Severity) Note limiting factors. HPI Lexis Oakes is a 39 y.o. female who presents to the emergency department for abdominal pain. Patient states that she is having severe pain to the left lower quadrant of her abdomen. She is seen yesterday in emergency department for similar symptoms but states that it is on the right side yesterday. Got a transvaginal ultrasound which showed a left hemorrhagic cyst. She states that the pain moved to the left side and has now become way worse. She has had an episode of emesis secondary to her pain. Denies any heavy vaginal bleeding. No vaginal discharge. Has a history of constipation but no diarrhea and has had been passing gas. Nursing Notes were reviewed. REVIEW OF SYSTEMS Review of Systems Pertinent positives and negatives per HPI PAST MEDICAL HISTORY Past Medical History: Diagnosis Date Abdominal pain Anxiety Arthritis Back pain Blurred vision Depression GERD (gastroesophageal reflux disease) H/O gastric bypass 02/07/2025 LRYGB 2013 [place] Hip pain Intestinal malabsorption 02/07/2025 Knee pain Seizures (HCC) SOB (shortness of breath) SURGICAL HISTORY Past Surgical History: Procedure Laterality Date APPENDECTOMY BRAIN SURGERY CHOLECYSTECTOMY CLAVICLE SURGERY FRACTURE SURGERY GALLBLADDER SURGERY GASTRIC [place] 2014 HYSTERECTOMY TONSILLECTOMY CURRENT MEDICATIONS Discharge Medication List as of 02/12/2025 11:25 AM CONTINUE these medications which have NOT CHANGED Details amitriptyline (Elavil) 25 MG tablet Take 25 mg by mouth Nightly., Starting Wed07/25/2024, Historical Med ARIPiprazole (Abilify) 5 MG tablet Take 5 mg by mouth daily., Starting 02/02/2022, Historical Med calcium citrate 1040 MG tablet Take by mouth 3 times a day., Historical Med cholecalciferol (Vitamin D-3) 25 MCG (1000 UT) tablet Take 1,000 Units by mouth in the morning., Historical Med DULoxetine (Cymbalta) [address] capsule Take 60 mg by mouth 2 times daily., Starting Breana 01/29/2022, Historical Med lacosamide (Vimpat) 150 mg tablet tablet Take 200 mg by mouth 2 times daily., Starting 04/13/2022, Historical Med LORazepam (Ativan) 0.5 MG tablet lorazepam 0.5 mg tablet, Historical Med metFORMIN (Glucophage) 500 MG tablet Take 500 mg by mouth daily., Starting 12/30/2024, Historical Med Multiple Vitamins-Minerals (Oncovite) tablet Take 1 tablet by mouth in the morning and 1 tablet in the evening., Historical Med SEMAGLUTIDE, 1 MG/DOSE, SC Inject 1 mL under the skin 1 (one) time per week., Starting Wed08/07/2024, Historical Med traMADol (Ultram) 50 MG tablet Take 50 mg by mouth 2 times daily., Starting Wed08/07/2022, Historical Med ALLERGIES Norepinephrine, Nsaids, Other, Gabapentin, and Penicillins FAMILY HISTORY Family History Problem Relation Name Age of Onset Asthma Mother Sarah COPD Mother Sarah Obesity Mother Sarah Hypertension Mother Sarah Arthritis Father Raymond Cancer Father Raymond Depression Father Raymond Diabetes Father Raymond Hypertension Father Raymond Mental illness Father Raymond Stroke Father Raymond Obesity Father Raymond Obesity Brother Hypertension Brother Obesity Paternal Grandmother Diabetes Paternal Grandmother Hypertension Paternal Grandmother Obesity Maternal Grandfather Diabetes Maternal Grandfather Hypertension Maternal Grandfather Heart disease Maternal Grandfather Obesity Maternal Grandmother Hypertension Maternal Grandmother SOCIAL HISTORY Social History Socioeconomic History Marital status: Single Tobacco Use Smoking status: Never Smokeless tobacco: Never Substance and Sexual Activity Alcohol use: Not Currently Drug use: Yes Types: Marijuana Comment: medical marijuana Sexual activity: Yes Partners: Male control/protection: Female Sterilization Comment: Hysterectomy Social Drivers of Health Financial Resource Strain: Low Risk (03/15/2023) Received from [facility] Overall Financial Resource Strain (CARDIA) Difficulty of Paying Living Expenses: Not hard at all Food Insecurity: No Food Insecurity (03/15/2023) Received from [facility] Hunger Vital Sign Worried About Running Out of Food in the Last Year: Never true Ran Out of Food in the Last Year: Never true Transportation Needs: No Transportation Needs (03/15/2023) Received from [facility] PRAPARE - Transportation Lack of Transportation (Medical): No Lack of Transportation (Non-Medical): No Housing Stability: Unknown (03/15/2023) Received from [facility] Housing Stability Vital Sign Unable to Pay for Housing in the Last Year: No Unstable Housing in the Last Year: No SCREENINGS PHYSICAL EXAM ED Triage Vitals [02/12/25 0758] Temp Heart Rate Resp BP 36.9 C (98.4 F) 103 20 123/89 SpO2 Temp Source Heart Rate Source Patient Position 100 % Oral -- -- BP Location FiO2 (%) -- -- Physical Exam Uncomfortable appearing female in no acute distress. Vital signs reviewed and all for mild tachycardia. Lungs clear to auscultation bilaterally. There is no increased work of breathing. Abdomen is soft with significant tenderness to left lower quadrant with guarding. No rebound tenderness. No CVA tenderness. DIAGNOSTIC RESULTS RADIOLOGY (Per Emergency Physician): Interpretation per the Radiologist below, if available at the time of this note: CT abdomen pelvis w contrast Final Result No acute process. Chronic findings as above. Report Dictated on Electronically Signed By: Celia Velásquez MD Electronically Signed Date/Time: 02/12/2025 9:28 AM EDT US pelvis transvaginal Final Result 2.6 cm left ovarian hemorrhagic cyst with simple appearing mild left adnexal fluid. Report Dictated on Electronically Signed By: Ky Hubbard DR Electronically Signed Date/Time: 02/12/2025 9:18 AM EDT LABS: Labs Reviewed COMPREHENSIVE METABOLIC PANEL - Abnormal Result Value SODIUM 141 POTASSIUM 4.4 CHLORIDE 106 CARBON DIOXIDE 24 ANION GAP 11 UREA NITROGEN 8 CREATININE 0.77 GLUCOSE 94 CALCIUM 8.5 AST (SGOT) 75 (*) ALT 83 (*) ALKALINE PHOSPHATASE 118 ALBUMIN 3.7 BILIRUBIN, TOTAL 0.6 TOTAL PROTEIN 6.6 eGFR >90.0 CBC WITH AUTO DIFFERENTIAL - Normal Auto WBC 8.0 RBC 4.61 Hemoglobin 14.4 Hematocrit 43.4 MCV 94.1 MCH 31.2 MCHC 33.2 RDW 13.0 Platelets 232 MPV 10.3 nRBC 0.0 Neutrophils Relative 70.1 Lymphocytes Relative 20.6 Monocytes Relative 7.2 Eosinophils Relative 1.0 Basophils Relative 0.6 Immature Grans % 0.5 Neutrophils Absolute 5.6 Lymphocytes Absolute 1.6 Monocytes Absolute 0.6 Eosinophils Absolute 0.1 Basophils Absolute 0.1 Immature Grans Absolute 0.0 All other labs were within normal range or not returned as of this dictation. EMERGENCY DEPARTMENT COURSE and DIFFERENTIAL DIAGNOSIS/MDM: Vitals: Vitals: 02/12/25 0758 02/12/25 1128 BP: 123/89 120/76 BP Location: Left arm Patient Position: Sitting Pulse: 103 85 Resp: 20 16 Temp: 36.9 C (98.4 F) TempSrc: Oral SpO2: 100% 97% Weight: 109 kg (240 lb) Medications morphine injection 4 mg (4 mg IntraVENous Given 02/12/25 0821) ondansetron (Zofran) injection 4 mg (4 mg IntraVENous Given 02/12/25 0819) iopamidol (Isovue-370) 76 % injection 75 mL (75 mL IntraVENous Given 02/12/25 0909) ketorolac (Toradol) injection 30 mg (30 mg IntraVENous Given 02/12/25 1020) HYDROmorphone (Dilaudid) injection 1 mg (1 mg IntraVENous Given 02/12/25 1021) Medical Decision Making Problems Addressed: Hemorrhagic ovarian cyst: complicated acute illness or injury Left lower quadrant abdominal pain: complicated acute illness or injury Amount and/or Complexity of Data Reviewed Labs: ordered. Radiology: ordered. Risk Prescription drug management. 39-year-old female presenting emergency department today for abdominal pain. Tachycardic upon arrival. She appears really uncomfortable. Having pain to the left lower quadrant mild guarding on my examination. Does have a history of an ovarian cyst that is hemorrhagic. I reviewed her chart she was seen here yesterday and looks like the pain yesterday was on the right side of her abdomen and today it is definitely on the left. She is mild pain on the right side of her abdomen on my palpation. Diagnosed with a left-sided hemorrhagic cyst yesterday given morphine. I we will get another transvaginal ultrasound to ensure that this is not a ovarian torsion causing her symptoms as well as a CT scan just to further evaluate the abdomen. Ultrasound does not really show any change in that cyst. There are some tiny bit of free fluid. CT scan does not show any acute findings. I do think that all of his pain is from hemorrhagic cyst. Still having limited pains I did give her IV Toradol as well as IV Dilaudid. Feeling improved. She would like to go home. After shared decision making I do think this is the best plan for her. She does follow pain management is currently on tramadol. I spoke with her about potentially giving her a few days of oxycodone for breakthrough pain. I told her that sometimes it can be difficult with pain management contract. She rechecked her pain management team who was okay with her getting it and we also reached out to her pharmacy who is also okay with filling it. Given this I did give her a 3-day course of oxycodone for breakthrough pain. She will follow-up with [facility]. Discharged stable condition. Diagnostic tests considered but not performed: External records reviewed: Diagnostics interpreted by me: Discussions with other clinicians: Chronic conditions impacting care: Social determinants of health affecting care: ED Medications managed: Medications morphine injection 4 mg (4 mg IntraVENous Given 02/12/25 0821) ondansetron (Zofran) injection 4 mg (4 mg IntraVENous Given 02/12/25 0819) iopamidol (Isovue-370) 76 % injection 75 mL (75 mL IntraVENous Given 02/12/25 0909) ketorolac (Toradol) injection 30 mg (30 mg IntraVENous Given 02/12/25 1020) HYDROmorphone (Dilaudid) injection 1 mg (1 mg IntraVENous Given 02/12/25 1021) Prescription drugs considered: I Darleen Daniel MD am the inspector shells of record. FINAL IMPRESSION 1. Left lower quadrant abdominal pain 2. Hemorrhagic ovarian cyst DISPOSITION Discharge 02/12/2025 11:04:39 AM PATIENT REFERRED TO: [facility] Obstetrics and Gynecology [place] [address] [facility] [address] [facility] [id number] DISCHARGE MEDICATIONS: Discharge Medication List as of 02/12/2025 11:25 AM START taking these medications Details oxyCODONE (Roxicodone) 5 MG immediate release tablet Take 1 tablet (5 mg) by mouth every 6 hours as needed for severe pain (7-10) for up to 3 days., Starting 02/12/2025, Until Breana 02/15/2025 at 2359, Normal (Comment: Please note this report has been produced using speech recognition software and may contain errors related to that system including errors in grammar, punctuation, and spelling, as well as words and phrases that may be inappropriate. If there are any questions or concerns please feel free to contact the dictating provider for clarification.) Darleen Daniel MD (electronically signed) Emergency Medicine Provider Darleen Daniel MD 02/12/25 1217 documented in this encounter [facility] 02-12-2025 Physician Emergency department Note EMERGENCY DEPARTMENT ENCOUNTER Pt Name: Lexis Oakes Birthdate 1985 Date of evaluation: 02/12/2025 ED Provider: Darleen Daniel MD CHIEF COMPLAINT Chief Complaint Patient presents with Abdominal Pain Pt c/o LLQ pain and was seen here yesterday for left hemorrhagic cyst. C/o N/V HISTORY OF PRESENT ILLNESS (Location/Symptom, Timing/Onset, Context/Setting, Quality, Duration, Modifying Factors, Severity) Note limiting factors. HPI Lexis Oakes is a 39 y.o. female who presents to the emergency department for abdominal pain. Patient states that she is having severe pain to the left lower quadrant of her abdomen. She is seen yesterday in emergency department for similar symptoms but states that it is on the right side yesterday. Got a transvaginal ultrasound which showed a left hemorrhagic cyst. She states that the pain moved to the left side and has now become way worse. She has had an episode of emesis secondary to her pain. Denies any heavy vaginal bleeding. No vaginal discharge. Has a history of constipation but no diarrhea and has had been passing gas. Nursing Notes were reviewed. REVIEW OF SYSTEMS Review of Systems Pertinent positives and negatives per HPI PAST MEDICAL HISTORY Past Medical History: Diagnosis Date Abdominal pain Anxiety Arthritis Back pain Blurred vision Depression GERD (gastroesophageal reflux disease) H/O gastric bypass 02/07/2025 LRYGB 2013 [place] Hip pain Intestinal malabsorption 02/07/2025 Knee pain Seizures (HCC) SOB (shortness of breath) SURGICAL HISTORY Past Surgical History: Procedure Laterality Date APPENDECTOMY BRAIN SURGERY CHOLECYSTECTOMY CLAVICLE SURGERY FRACTURE SURGERY GALLBLADDER SURGERY GASTRIC [place] 2014 HYSTERECTOMY TONSILLECTOMY CURRENT MEDICATIONS Discharge Medication List as of 02/12/2025 11:25 AM CONTINUE these medications which have NOT CHANGED Details amitriptyline (Elavil) 25 MG tablet Take 25 mg by mouth Nightly., Starting 07/25/2024, Historical Med ARIPiprazole (Abilify) 5 MG tablet Take 5 mg by mouth daily., Starting 02/02/2022, Historical Med calcium citrate 1040 MG tablet Take by mouth 3 times a day., Historical Med cholecalciferol (Vitamin D-3) 25 MCG (1000 UT) tablet Take 1,000 Units by mouth in the morning., Historical Med DULoxetine (Cymbalta) [address] capsule Take 60 mg by mouth 2 times daily., Starting Breana 01/29/2022, Historical Med lacosamide (Vimpat) 150 mg tablet tablet Take 200 mg by mouth 2 times daily., Starting 04/13/2022, Historical Med LORazepam (Ativan) 0.5 MG tablet lorazepam 0.5 mg tablet, Historical Med metFORMIN (Glucophage) 500 MG tablet Take 500 mg by mouth daily., Starting 12/30/2024, Historical Med Multiple Vitamins-Minerals (Oncovite) tablet Take 1 tablet by mouth in the morning and 1 tablet in the evening., Historical Med SEMAGLUTIDE, 1 MG/DOSE, SC Inject 1 mL under the skin 1 (one) time per week., Starting Wed08/07/2024, Historical Med traMADol (Ultram) 50 MG tablet Take 50 mg by mouth 2 times daily., Starting Wed08/07/2022, Historical Med ALLERGIES Norepinephrine, Nsaids, Other, Gabapentin, and Penicillins FAMILY HISTORY Family History Problem Relation Name Age of Onset Asthma Mother Sarah COPD Mother Sarah Obesity Mother Sarah Hypertension Mother Sarah Arthritis Father Raymond Cancer Father Raymond Depression Father Raymond Diabetes Father Raymond Hypertension Father Raymond Mental illness Father Raymond Stroke Father Raymond Obesity Father Raymond Obesity Brother Hypertension Brother Obesity Paternal Grandmother Diabetes Paternal Grandmother Hypertension Paternal Grandmother Obesity Maternal Grandfather Diabetes Maternal Grandfather Hypertension Maternal Grandfather Heart disease Maternal Grandfather Obesity Maternal Grandmother Hypertension Maternal Grandmother SOCIAL HISTORY Social History Socioeconomic History Marital status: Single Tobacco Use Smoking status: Never Smokeless tobacco: Never Substance and Sexual Activity Alcohol use: Not Currently Drug use: Yes Types: Marijuana Comment: medical marijuana Sexual activity: Yes Partners: Male control/protection: Female Sterilization Comment: Hysterectomy Social Drivers of Health Financial Resource Strain: Low Risk (03/15/2023) Received from [facility] Overall Financial Resource Strain (CARDIA) Difficulty of Paying Living Expenses: Not hard at all Food Insecurity: No Food Insecurity (03/15/2023) Received from [facility] Hunger Vital Sign Worried About Running Out of Food in the Last Year: Never true Ran Out of Food in the Last Year: Never true Transportation Needs: No Transportation Needs (03/15/2023) Received from [facility] PRAPARE - Transportation Lack of Transportation (Medical): No Lack of Transportation (Non-Medical): No Housing Stability: Unknown (03/15/2023) Received from [facility] Housing Stability Vital Sign Unable to Pay for Housing in the Last Year: No Unstable Housing in the Last Year: No SCREENINGS PHYSICAL EXAM ED Triage Vitals [02/12/25 0758] Temp Heart Rate Resp BP 36.9 C (98.4 F) 103 20 123/89 SpO2 Temp Source Heart Rate Source Patient Position 100 % Oral -- -- BP Location FiO2 (%) -- -- Physical Exam Uncomfortable appearing female in no acute distress. Vital signs reviewed and all for mild tachycardia. Lungs clear to auscultation bilaterally. There is no increased work of breathing. Abdomen is soft with significant tenderness to left lower quadrant with guarding. No rebound tenderness. No CVA tenderness. DIAGNOSTIC RESULTS RADIOLOGY (Per Emergency Physician): Interpretation per the Radiologist below, if available at the time of this note: CT abdomen pelvis w contrast Final Result No acute process. Chronic findings as above. Report Dictated on Electronically Signed By: Celia Velásquez MD Electronically Signed Date/Time: 02/12/2025 9:28 AM EDT US pelvis transvaginal Final Result 2.6 cm left ovarian hemorrhagic cyst with simple appearing mild left adnexal fluid. Report Dictated on Electronically Signed By: Ky Hubbard DR Electronically Signed Date/Time: 02/12/2025 9:18 AM EDT LABS: Labs Reviewed COMPREHENSIVE METABOLIC PANEL - Abnormal Result Value SODIUM 141 POTASSIUM 4.4 CHLORIDE 106 CARBON DIOXIDE 24 ANION GAP 11 UREA NITROGEN 8 CREATININE 0.77 GLUCOSE 94 CALCIUM 8.5 AST (SGOT) 75 (*) ALT 83 (*) ALKALINE PHOSPHATASE 118 ALBUMIN 3.7 BILIRUBIN, TOTAL 0.6 TOTAL PROTEIN 6.6 eGFR >90.0 CBC WITH AUTO DIFFERENTIAL - Normal Auto WBC 8.0 RBC 4.61 Hemoglobin 14.4 Hematocrit 43.4 MCV 94.1 MCH 31.2 MCHC 33.2 RDW 13.0 Platelets 232 MPV 10.3 nRBC 0.0 Neutrophils Relative 70.1 Lymphocytes Relative 20.6 Monocytes Relative 7.2 Eosinophils Relative 1.0 Basophils Relative 0.6 Immature Grans % 0.5 Neutrophils Absolute 5.6 Lymphocytes Absolute 1.6 Monocytes Absolute 0.6 Eosinophils Absolute 0.1 Basophils Absolute 0.1 Immature Grans Absolute 0.0 All other labs were within normal range or not returned as of this dictation. EMERGENCY DEPARTMENT COURSE and DIFFERENTIAL DIAGNOSIS/MDM: Vitals: Vitals: 02/12/25 0758 02/12/25 1128 BP: 123/89 120/76 BP Location: Left arm Patient Position: Sitting Pulse: 103 85 Resp: 20 16 Temp: 36.9 C (98.4 F) TempSrc: Oral SpO2: 100% 97% Weight: 109 kg (240 lb) Medications morphine injection 4 mg (4 mg IntraVENous Given 02/12/25 0821) ondansetron (Zofran) injection 4 mg (4 mg IntraVENous Given 02/12/25 0819) iopamidol (Isovue-370) 76 % injection 75 mL (75 mL IntraVENous Given 02/12/25 0909) ketorolac (Toradol) injection 30 mg (30 mg IntraVENous Given 02/12/25 1020) HYDROmorphone (Dilaudid) injection 1 mg (1 mg IntraVENous Given 02/12/25 1021) Medical Decision Making Problems Addressed: Hemorrhagic ovarian cyst: complicated acute illness or injury Left lower quadrant abdominal pain: complicated acute illness or injury Amount and/or Complexity of Data Reviewed Labs: ordered. Radiology: ordered. Risk Prescription drug management. 39-year-old female presenting emergency department today for abdominal pain. Tachycardic upon arrival. She appears really uncomfortable. Having pain to the left lower quadrant mild guarding on my examination. Does have a history of an ovarian cyst that is hemorrhagic. I reviewed her chart she was seen here yesterday and looks like the pain yesterday was on the right side of her abdomen and today it is definitely on the left. She is mild pain on the right side of her abdomen on my palpation. Diagnosed with a left-sided hemorrhagic cyst yesterday given morphine. I we will get another transvaginal ultrasound to ensure that this is not a ovarian torsion causing her symptoms as well as a CT scan just to further evaluate the abdomen. Ultrasound does not really show any change in that cyst. There are some tiny bit of free fluid. CT scan does not show any acute findings. I do think that all of his pain is from hemorrhagic cyst. Still having limited pains I did give her IV Toradol as well as IV Dilaudid. Feeling improved. She would like to go home. After shared decision making I do think this is the best plan for her. She does follow pain management is currently on tramadol. I spoke with her about potentially giving her a few days of oxycodone for breakthrough pain. I told her that sometimes it can be difficult with pain management contract. She rechecked her pain management team who was okay with her getting it and we also reached out to her pharmacy who is also okay with filling it. Given this I did give her a 3-day course of oxycodone for breakthrough pain. She will follow-up with [facility] outpatient. Discharged stable condition. Diagnostic tests considered but not performed: External records reviewed: Diagnostics interpreted by me: Discussions with other clinicians: Chronic conditions impacting care: Social determinants of health affecting care: ED Medications managed: Medications morphine injection 4 mg (4 mg IntraVENous Given 02/12/25 0821) ondansetron (Zofran) injection 4 mg (4 mg IntraVENous Given 02/12/25 0819) iopamidol (Isovue-370) 76 % injection 75 mL (75 mL IntraVENous Given 02/12/25 0909) ketorolac (Toradol) injection 30 mg (30 mg IntraVENous Given 02/12/25 1020) HYDROmorphone (Dilaudid) injection 1 mg (1 mg IntraVENous Given 02/12/25 1021) Prescription drugs considered: I Darleen Daniel MD am the inspector shells of record. FINAL IMPRESSION 1. Left lower quadrant abdominal pain 2. Hemorrhagic ovarian cyst DISPOSITION Discharge 02/12/2025 11:04:39 AM PATIENT REFERRED TO: [facility] Obstetrics and Gynecology - [address] [facility] [id number] DISCHARGE MEDICATIONS: Discharge Medication List as of 02/12/2025 11:25 AM START taking these medications Details oxyCODONE (Roxicodone) 5 MG immediate release tablet Take 1 tablet (5 mg) by mouth every 6 hours as needed for severe pain (7-10) for up to 3 days., Starting 02/12/2025, Until Breana 02/15/2025 at 2359, Normal (Comment: Please note this report has been produced using speech recognition software and may contain errors related to that system including errors in grammar, punctuation, and spelling, as well as words and phrases that may be inappropriate. If there are any questions or concerns please feel free to contact the dictating provider for clarification.) Darleen Daniel MD (electronically signed) Emergency Medicine Provider Darleen Daniel MD 02/12/25 1217 [facility] 02-11-2025 Hospital Discharg e instructions Magdalene Ayala PA-C - 02/11/2025 4:57 PM EDT You have a hemorrhagic cyst of the left ovary. All other workup is within normal limits. Take tramadol as needed for pain relief. Please follow-up with our [facility] for further management. Information listed below. Return to the ED with any new or worsening symptoms. The following attachments cannot be sent through Care Everywhere.Ovarian Cyst Discharge Instructions (Montenegrin)documented in this encounter [facility] 02-11-2025 Emergency department Note EMERGENCY DEPARTMENT ENCOUNTER Pt Name: Lexis Oakes Birthdate 1985 Date of evaluation: 02/11/2025 ED Provider: Magdalene Ayala PA-C CHIEF COMPLAINT Chief Complaint Patient presents with Pelvic Pain Patient complains of R lower pelvic pain since 1330 HISTORY OF PRESENT ILLNESS (Location/Symptom, Timing/Onset, Context/Setting, Quality, Duration, Modifying Factors, Severity) Note limiting factors. I wore appropriate PPE for the entirety of this encounter. HPI Lexis Oakes is a 39 y.o. female who presents to the emergency department for evaluation of right lower quadrant abdominal pain that started at 1330 today. Patient reports that the pain is constant and sharp/crampy in nature. Reports that she is concerned for hemorrhagic ovarian cyst that she has had these in the past. Reports history of hysterectomy. Denies any vaginal discharge or vaginal bleeding. Reports having some increased urinary frequency but denies any dysuria or gross hematuria. Reports that there is some pain of the left flank region. Denies history of urolithiasis. States that she is having some nausea but denies any vomiting. Reports taking Zofran prior to arrival. Denies fever or chills. History of appendectomy. Nursing Notes were reviewed. Limitations to history: None Outside historians: None REVIEW OF SYSTEMS Review of Systems 10 systems reviewed, positives and pertinent negatives as per HPI. All other systems were reviewed and are negative. PAST MEDICAL HISTORY Past Medical History: Diagnosis Date Abdominal pain Anxiety Arthritis Back pain Blurred vision Depression GERD (gastroesophageal reflux disease) H/O gastric bypass 02/07/2025 LRYGB 2013 [place] Hip pain Intestinal malabsorption 02/07/2025 Knee pain Seizures (HCC) SOB (shortness of breath) SURGICAL HISTORY Past Surgical History: Procedure Laterality Date APPENDECTOMY BRAIN SURGERY CHOLECYSTECTOMY CLAVICLE SURGERY FRACTURE SURGERY GALLBLADDER SURGERY GASTRIC BYPASS 2014 HYSTERECTOMY TONSILLECTOMY CURRENT MEDICATIONS Discharge Medication List as of 02/11/2025 4:57 PM CONTINUE these medications which have NOT CHANGED Details amitriptyline (Elavil) 25 MG tablet Take 25 mg by mouth Nightly., Starting Wed07/25/2024, Historical Med ARIPiprazole (Abilify) 5 MG tablet Take 5 mg by mouth daily., Starting 02/02/2022, Historical Med calcium citrate 1040 MG tablet Take by mouth 3 times a day., Historical Med cholecalciferol (Vitamin D-3) 25 MCG (1000 UT) tablet Take 1,000 Units by mouth in the morning., Historical Med DULoxetine (Cymbalta) [address] capsule Take 60 mg by mouth 2 times daily., Starting Breana 01/29/2022, Historical Med lacosamide (Vimpat) 150 mg tablet tablet Take 200 mg by mouth 2 times daily., Starting 04/13/2022, Historical Med LORazepam (Ativan) 0.5 MG tablet lorazepam 0.5 mg tablet, Historical Med metFORMIN (Glucophage) 500 MG tablet Take 500 mg by mouth daily., Starting 12/30/2024, Historical Med Multiple Vitamins-Minerals (Oncovite) tablet Take 1 tablet by mouth in the morning and 1 tablet in the evening., Historical Med SEMAGLUTIDE, 1 MG/DOSE, SC Inject 1 mL under the skin 1 (one) time per week., Starting Wed08/07/2024, Historical Med traMADol (Ultram) 50 MG tablet Take 50 mg by mouth 2 times daily., Starting Wed08/07/2022, Historical Med ALLERGIES Norepinephrine, Nsaids, Other, Gabapentin, and Penicillins FAMILY HISTORY Family History Problem Relation Name Age of Onset Asthma Mother Sarah COPD Mother Sarah Obesity Mother Sarah Hypertension Mother Sarah Arthritis Father Raymond Cancer Father Raymond Depression Father Raymond Diabetes Father Raymond Hypertension Father Raymond Mental illness Father Raymond Stroke Father Raymond Obesity Father Raymond Obesity Brother Hypertension Brother Obesity Paternal Grandmother Diabetes Paternal Grandmother Hypertension Paternal Grandmother Obesity Maternal Grandfather Diabetes Maternal Grandfather Hypertension Maternal Grandfather Heart disease Maternal Grandfather Obesity Maternal Grandmother Hypertension Maternal Grandmother SOCIAL HISTORY Social History Socioeconomic History Marital status: Single Tobacco Use Smoking status: Never Smokeless tobacco: Never Substance and Sexual Activity Alcohol use: Not Currently Drug use: Yes Types: Marijuana Comment: medical marijuana Sexual activity: Yes Partners: Male control/protection: Female Sterilization Comment: Hysterectomy Social Drivers of Health Financial Resource Strain: Low Risk (03/15/2023) Received from [facility] Overall Financial Resource Strain (CARDIA) Difficulty of Paying Living Expenses: Not hard at all Food Insecurity: No Food Insecurity (03/15/2023) Received from [facility] Hunger Vital Sign Worried About Running Out of Food in the Last Year: Never true Ran Out of Food in the Last Year: Never true Transportation Needs: No Transportation Needs (03/15/2023) Received from [facility] PRAPARE - Transportation Lack of Transportation (Medical): No Lack of Transportation (Non-Medical): No Housing Stability: Unknown (03/15/2023) Received from [facility] Housing Stability Vital Sign Unable to Pay for Housing in the Last Year: No Unstable Housing in the Last Year: No SCREENINGS PHYSICAL EXAM ED Triage Vitals Temp Heart Rate Resp BP 02/11/25 1528 02/11/25 1528 02/11/25 1528 02/11/25 1530 36.4 C (97.6 F) 109 18 124/84 SpO2 Temp Source Heart Rate Source Patient Position 02/11/25 1528 02/11/25 1528 -- -- 98 % Temporal BP Location FiO2 (%) -- -- Physical Exam Vitals and nursing note reviewed. Constitutional: General: She is not in acute distress. Appearance: She is well-developed. Comments: Pleasant 39-year-old female who appears to be mild discomfort. Patient does not appear to be in acute distress. HENT: Head: Normocephalic and atraumatic. Eyes: Conjunctiva/sclera: Conjunctivae normal. Cardiovascular: Rate and Rhythm: Normal rate and regular rhythm. Heart sounds: No murmur heard. Pulmonary: Effort: Pulmonary effort is normal. No respiratory distress. Breath sounds: Normal breath sounds. Abdominal: Comments: Abdomen soft and nonrigid. There is tenderness to palpation in the RLQ. Right-sided CVA tenderness noted. No guarding or rebound tenderness noted. Musculoskeletal: General: No swelling. Cervical back: Neck supple. Skin: General: Skin is warm and dry. Capillary Refill: Capillary refill takes less than 2 seconds. Neurological: Mental Status: She is alert. Psychiatric: Mood and Affect: Mood normal. DIAGNOSTIC RESULTS RADIOLOGY (Per Emergency Physician): Interpretation per the Radiologist below, if available at the time of this note: US pelvis transvaginal Final Result 2.4 cm left ovarian hemorrhagic cyst. Sonographically unremarkable right ovary. Report Dictated on Electronically Signed By: Kristin Jiménez DO Electronically Signed Date/Time: 02/11/2025 4:40 PM EDT LABS: Labs Reviewed COMPREHENSIVE METABOLIC PANEL - Abnormal Result Value SODIUM 139 POTASSIUM 3.9 CHLORIDE 109 (*) CARBON DIOXIDE 21 (*) ANION GAP 9 UREA NITROGEN 8 CREATININE 0.72 GLUCOSE 80 CALCIUM 8.2 (*) AST (SGOT) 17 ALT 15 ALKALINE PHOSPHATASE 82 ALBUMIN 3.6 BILIRUBIN, TOTAL 0.4 TOTAL PROTEIN 6.4 eGFR >90.0 COMPLETE URINALYSIS - Abnormal Color, Urine Colorless Clarity, Urine Clear pH, Urine 5.5 Leukocytes, Urine Negative Nitrite, Urine Negative Protein, Urine Negative Glucose, Urine Normal Bilirubin, Urine Negative Ketones, Urine Negative Urobilinogen, Urine Normal Blood, Urine Negative SPECIFIC GRAVITY OF URINE (NUMERIC) 1.003 (*) CBC WITH AUTO DIFFERENTIAL - Normal Auto WBC 10.0 RBC 4.28 Hemoglobin 13.5 Hematocrit 39.5 MCV 92.3 MCH 31.5 MCHC 34.2 RDW 13.0 Platelets 257 MPV 10.2 nRBC 0.0 Neutrophils Relative 64.2 Lymphocytes Relative 26.1 Monocytes Relative 7.8 Eosinophils Relative 1.1 Basophils Relative 0.7 Immature Grans % 0.1 Neutrophils Absolute 6.4 Lymphocytes Absolute 2.6 Monocytes Absolute 0.8 Eosinophils Absolute 0.1 Basophils Absolute 0.1 Immature Grans Absolute 0.0 COMPLETE URINALYSIS WITH REFLEX TO CULTURE Narrative: The following orders were created for panel order Urinalysis complete with reflex to Culture. Procedure Abnormality Status --------- ------ Complete Urinalysis[[id number]] Abnormal Final result Please view results for these tests on the individual orders. All other labs were within normal range or not returned as of this dictation. EMERGENCY DEPARTMENT COURSE and DIFFERENTIAL DIAGNOSIS/MDM: Vitals: Vitals: 02/11/25 1528 02/11/25 1530 02/11/25 1710 BP: 124/84 Pulse: 109 85 Resp: 18 16 Temp: 36.4 C (97.6 F) TempSrc: Temporal SpO2: 98% 100% Weight: 109 kg (240 lb) Height: 1.626 m (5' 4) Medications morphine injection 4 mg (4 mg IntraVENous Given 02/11/25 1548) morphine injection 4 mg (4 mg IntraVENous Given 02/11/25 1705) I independently evaluated the patient with supervising attending physician available as needed for collaboration. In brief, Lexis Oakes is a 39 y.o. female who presented to the emergency department for evaluation of RLQ abdominal pain that started at 1330 today. See HPI for further details. Nursing notes and medical records reviewed, no recent visits or studies correlating patient's presenting symptoms. Differential considerations included ovarian cyst, ovarian torsion, acute cystitis, pyelonephritis, urolithiasis. Initial medical management includes morphine. Initial workup includes CBC, CMP, urinalysis, transvaginal ultrasound. Lab workup results CBC shows no evidence of leukocytosis. CMP is within normal limits. Urine shows no evidence of infection or other abnormality. Imaging results per radiology transvaginal ultrasound shows a 2.4 centimeter left ovarian hemorrhagic cyst. Unremarkable right ovary. Chronic conditions contributing to patients presentation include GERD. I have low suspiscion for urolithiasis as urinalysis is negative for blood. Social determinants to care: None noted. Diagnosis right lower quadrant abdominal pain, hemorrhagic cyst of left ovary. Disposition discharge home stable. Patient's pain is all in the right lower quadrant possibly due to the hemorrhagic cyst of the left side. Patient has had previous appendectomy low special for appendicitis given this. Patient hysterectomy lower suspicion for any ectopic or the etiology. Low suspicion for urolithiasis as urine does not have any RBCs. Patient will be treated with narcotic medication for pain relief. Patient currently has prescription for tramadol. Referral to [facility] will be placed. Discussed ED return precautions, recommended consulting their primary doctor or returning to the ED if there are any new or worsening of symptoms, particularly worsening pain, fever, chills. Follow-up [facility]. PROCEDURES: Unless otherwise noted below, none Procedures FINAL IMPRESSION 1. RLQ abdominal pain 2. Hemorrhagic cyst of left ovary DISPOSITION Discharge 02/11/2025 04:53:24 PM PATIENT REFERRED TO: Fede Davis MD [address] [place] [address] [address] [facility] [id number] [facility] - [address] [facility] [address] DISCHARGE MEDICATIONS: Discharge Medication List as of 02/11/2025 4:57 PM (Comment: Please note this report has been produced using speech recognition software and may contain errors related to that system including errors in grammar, punctuation, and spelling, as well as words and phrases that may be inappropriate. If there are any questions or concerns please feel free to contact the dictating provider for clarification.) Magdalene Ayala PA-C (electronically signed) Emergency Medicine Provider Magdalene Ayala PA-C 02/11/252021 documented in this encounter [facility] 02-11-2025 Physician Emergency department Note EMERGENCY DEPARTMENT ENCOUNTER Pt Name: Lexis Oakes Birthdate 1985 Date of evaluation: 02/11/2025 ED Provider: Magdalene Ayala PA-C CHIEF COMPLAINT Chief Complaint Patient presents with Pelvic Pain Patient complains of R lower pelvic pain since 1330 HISTORY OF PRESENT ILLNESS (Location/Symptom, Timing/Onset, Context/Setting, Quality, Duration, Modifying Factors, Severity) Note limiting factors. I wore appropriate PPE for the entirety of this encounter. HPI Lexis Oakes is a 39 y.o. female who presents to the emergency department for evaluation of right lower quadrant abdominal pain that started at 1330 today. Patient reports that the pain is constant and sharp/crampy in nature. Reports that she is concerned for hemorrhagic ovarian cyst that she has had these in the past. Reports history of hysterectomy. Denies any vaginal discharge or vaginal bleeding. Reports having some increased urinary frequency but denies any dysuria or gross hematuria. Reports that there is some pain of the left flank region. Denies history of urolithiasis. States that she is having some nausea but denies any vomiting. Reports taking Zofran prior to arrival. Denies fever or chills. History of appendectomy. Nursing Notes were reviewed. Limitations to history: None Outside historians: None REVIEW OF SYSTEMS Review of Systems 10 systems reviewed, positives and pertinent negatives as per HPI. All other systems were reviewed and are negative. PAST MEDICAL HISTORY Past Medical History: Diagnosis Date Abdominal pain Anxiety Arthritis Back pain Blurred vision Depression GERD (gastroesophageal reflux disease) H/O gastric bypass 02/07/2025 LRYGB 2013 [place] Hip pain Intestinal malabsorption 02/07/2025 Knee pain Seizures (HCC) SOB (shortness of breath) SURGICAL HISTORY Past Surgical History: Procedure Laterality Date APPENDECTOMY BRAIN SURGERY CHOLECYSTECTOMY CLAVICLE SURGERY FRACTURE SURGERY GALLBLADDER SURGERY GASTRIC BYPASS 2014 HYSTERECTOMY TONSILLECTOMY CURRENT MEDICATIONS Discharge Medication List as of 02/11/2025 4:57 PM CONTINUE these medications which have NOT CHANGED Details amitriptyline (Elavil) 25 MG tablet Take 25 mg by mouth Nightly., Starting 07/25/2024, Historical Med ARIPiprazole (Abilify) 5 MG tablet Take 5 mg by mouth daily., Starting 02/02/2022, Historical Med calcium citrate 1040 MG tablet Take by mouth 3 times a day., Historical Med cholecalciferol (Vitamin D-3) 25 MCG (1000 UT) tablet Take 1,000 Units by mouth in the morning., Historical Med DULoxetine (Cymbalta) [address] capsule Take 60 mg by mouth 2 times daily., Starting Breana 01/29/2022, Historical Med lacosamide (Vimpat) 150 mg tablet tablet Take 200 mg by mouth 2 times daily., Starting 04/13/2022, Historical Med LORazepam (Ativan) 0.5 MG tablet lorazepam 0.5 mg tablet, Historical Med metFORMIN (Glucophage) 500 MG tablet Take 500 mg by mouth daily., Starting 12/30/2024, Historical Med Multiple Vitamins-Minerals (Oncovite) tablet Take 1 tablet by mouth in the morning and 1 tablet in the evening., Historical Med SEMAGLUTIDE, 1 MG/DOSE, SC Inject 1 mL under the skin 1 (one) time per week., Starting Wed08/07/2024, Historical Med traMADol (Ultram) 50 MG tablet Take 50 mg by mouth 2 times daily., Starting Wed08/07/2022, Historical Med ALLERGIES Norepinephrine, Nsaids, Other, Gabapentin, and Penicillins FAMILY HISTORY Family History Problem Relation Name Age of Onset Asthma Mother Sarah COPD Mother Sarah Obesity Mother Sarah Hypertension Mother Sarah Arthritis Father Raymond Cancer Father Raymond Depression Father Raymond Diabetes Father Raymond Hypertension Father Raymond Mental illness Father Raymond Stroke Father Raymond Obesity Father Raymond Obesity Brother Hypertension Brother Obesity Paternal Grandmother Diabetes Paternal Grandmother Hypertension Paternal Grandmother Obesity Maternal Grandfather Diabetes Maternal Grandfather Hypertension Maternal Grandfather Heart disease Maternal Grandfather Obesity Maternal Grandmother Hypertension Maternal Grandmother SOCIAL HISTORY Social History Socioeconomic History Marital status: Single Tobacco Use Smoking status: Never Smokeless tobacco: Never Substance and Sexual Activity Alcohol use: Not Currently Drug use: Yes Types: Marijuana Comment: medical marijuana Sexual activity: Yes Partners: Male control/protection: Female Sterilization Comment: Hysterectomy Social Drivers of Health Financial Resource Strain: Low Risk (03/15/2023) Received from [facility] Overall Financial Resource Strain (CARDIA) Difficulty of Paying Living Expenses: Not hard at all Food Insecurity: No Food Insecurity (03/15/2023) Received from [facility] Hunger Vital Sign Worried About Running Out of Food in the Last Year: Never true Ran Out of Food in the Last Year: Never true Transportation Needs: No Transportation Needs (03/15/2023) Received from [facility] PRAPARE - Transportation Lack of Transportation (Medical): No Lack of Transportation (Non-Medical): No Housing Stability: Unknown (03/15/2023) Received from [facility] Housing Stability Vital Sign Unable to Pay for Housing in the Last Year: No Unstable Housing in the Last Year: No SCREENINGS PHYSICAL EXAM ED Triage Vitals Temp Heart Rate Resp BP 02/11/25 1528 02/11/25 1528 02/11/25 1528 02/11/25 1530 36.4 C (97.6 F) 109 18 124/84 SpO2 Temp Source Heart Rate Source Patient Position 02/11/25 1528 02/11/25 1528 -- -- 98 % Temporal BP Location FiO2 (%) -- -- Physical Exam Vitals and nursing note reviewed. Constitutional: General: She is not in acute distress. Appearance: She is well-developed. Comments: Pleasant 39-year-old female who appears to be mild discomfort. Patient does not appear to be in acute distress. HENT: Head: Normocephalic and atraumatic. Eyes: Conjunctiva/sclera: Conjunctivae normal. Cardiovascular: Rate and Rhythm: Normal rate and regular rhythm. Heart sounds: No murmur heard. Pulmonary: Effort: Pulmonary effort is normal. No respiratory distress. Breath sounds: Normal breath sounds. Abdominal: Comments: Abdomen soft and nonrigid. There is tenderness to palpation in the RLQ. Right-sided CVA tenderness noted. No guarding or rebound tenderness noted. Musculoskeletal: General: No swelling. Cervical back: Neck supple. Skin: General: Skin is warm and dry. Capillary Refill: Capillary refill takes less than 2 seconds. Neurological: Mental Status: She is alert. Psychiatric: Mood and Affect: Mood normal. DIAGNOSTIC RESULTS RADIOLOGY (Per Emergency Physician): Interpretation per the Radiologist below, if available at the time of this note: US pelvis transvaginal Final Result 2.4 cm left ovarian hemorrhagic cyst. Sonographically unremarkable right ovary. Report Dictated on Electronically Signed By: Kristin Jiménez DO Electronically Signed Date/Time: 02/11/2025 4:40 PM EDT LABS: Labs Reviewed COMPREHENSIVE METABOLIC PANEL - Abnormal Result Value SODIUM 139 POTASSIUM 3.9 CHLORIDE 109 (*) CARBON DIOXIDE 21 (*) ANION GAP 9 UREA NITROGEN 8 CREATININE 0.72 GLUCOSE 80 CALCIUM 8.2 (*) AST (SGOT) 17 ALT 15 ALKALINE PHOSPHATASE 82 ALBUMIN 3.6 BILIRUBIN, TOTAL 0.4 TOTAL PROTEIN 6.4 eGFR >90.0 COMPLETE URINALYSIS - Abnormal Color, Urine Colorless Clarity, Urine Clear pH, Urine 5.5 Leukocytes, Urine Negative Nitrite, Urine Negative Protein, Urine Negative Glucose, Urine Normal Bilirubin, Urine Negative Ketones, Urine Negative Urobilinogen, Urine Normal Blood, Urine Negative SPECIFIC GRAVITY OF URINE (NUMERIC) 1.003 (*) CBC WITH AUTO DIFFERENTIAL - Normal Auto WBC 10.0 RBC 4.28 Hemoglobin 13.5 Hematocrit 39.5 MCV 92.3 MCH 31.5 MCHC 34.2 RDW 13.0 Platelets 257 MPV 10.2 nRBC 0.0 Neutrophils Relative 64.2 Lymphocytes Relative 26.1 Monocytes Relative 7.8 Eosinophils Relative 1.1 Basophils Relative 0.7 Immature Grans % 0.1 Neutrophils Absolute 6.4 Lymphocytes Absolute 2.6 Monocytes Absolute 0.8 Eosinophils Absolute 0.1 Basophils Absolute 0.1 Immature Grans Absolute 0.0 COMPLETE URINALYSIS WITH REFLEX TO CULTURE Narrative: The following orders were created for panel order Urinalysis complete with reflex to Culture. Procedure Abnormality Status --------- ------ Complete Urinalysis[[id number]] Abnormal Final result Please view results for these tests on the individual orders. All other labs were within normal range or not returned as of this dictation. EMERGENCY DEPARTMENT COURSE and DIFFERENTIAL DIAGNOSIS/MDM: Vitals: Vitals: 02/11/25 1528 02/11/25 1530 02/11/25 1710 BP: 124/84 Pulse: 109 85 Resp: 18 16 Temp: 36.4 C (97.6 F) TempSrc: Temporal SpO2: 98% 100% Weight: 109 kg (240 lb) Height: 1.626 m (5' 4) Medications morphine injection 4 mg (4 mg IntraVENous Given 02/11/25 1548) morphine injection 4 mg (4 mg IntraVENous Given 02/11/25 1705) I independently evaluated the patient with supervising attending physician available as needed for collaboration. In brief, Lexis Oakes is a 39 y.o. female who presented to the emergency department for evaluation of RLQ abdominal pain that started at 1330 today. See HPI for further details. Nursing notes and medical records reviewed, no recent visits or studies correlating patient's presenting symptoms. Differential considerations included ovarian cyst, ovarian torsion, acute cystitis, pyelonephritis, urolithiasis. Initial medical management includes morphine. Initial workup includes CBC, CMP, urinalysis, transvaginal ultrasound. Lab workup results CBC shows no evidence of leukocytosis. CMP is within normal limits. Urine shows no evidence of infection or other abnormality. Imaging results per radiology transvaginal ultrasound shows a 2.4 centimeter left ovarian hemorrhagic cyst. Unremarkable right ovary. Chronic conditions contributing to patients presentation include GERD. I have low suspiscion for urolithiasis as urinalysis is negative for blood. Social determinants to care: None noted. Diagnosis right lower quadrant abdominal pain, hemorrhagic cyst of left ovary. Disposition discharge home stable. Patient's pain is all in the right lower quadrant possibly due to the hemorrhagic cyst of the left side. Patient has had previous appendectomy low special for appendicitis given this. Patient hysterectomy lower suspicion for any ectopic or the etiology. Low suspicion for urolithiasis as urine does not have any RBCs. Patient will be treated with narcotic medication for pain relief. Patient currently has prescription for tramadol. Referral to [facility] will be placed. Discussed ED return precautions, recommended consulting their primary doctor or returning to the ED if there are any new or worsening of symptoms, particularly worsening pain, fever, chills. Follow-up [facility]. PROCEDURES: Unless otherwise noted below, none Procedures FINAL IMPRESSION 1. RLQ abdominal pain 2. Hemorrhagic cyst of left ovary DISPOSITION Discharge 02/11/2025 04:53:24 PM PATIENT REFERRED TO: Fede Davis MD [address] [facility] [address] [facility] [address] [facility] - [address] [facility] [address] DISCHARGE MEDICATIONS: Discharge Medication List as of 02/11/2025 4:57 PM (Comment: Please note this report has been produced using speech recognition software and may contain errors related to that system including errors in grammar, punctuation, and spelling, as well as words and phrases that may be inappropriate. If there are any questions or concerns please feel free to contact the dictating provider for clarification.) Magdalene Ayala PA-C (electronically signed) Emergency Medicine Provider Magdalene Ayala PA-C 02/11/252021 [facility] 02-09-2025 History of Presen t illness Narrative Images from the original note were not included. MARCO ANTONIO SOTO MD , FACS, [facility] MINIMALLY INVASIVE & METABOLIC / BARIATRIC SURGERY [facility] - FOLLOW UP 02/09/2025 PATIENT: Lexis Oakes DATE OF : 1985 - HISTORY OF PRESENT ILLNESS Chief Complaint: history of Krystal en Y 2013- [place] DR [place]. month follow-up status post KRYSTAL-EN-Y GASTRIC BYPASS - aka RYGB Lexis Oakes is a 39 y.o. female who presents to the bariatric care center today- The total weight lost is 159 pounds for a 56 % EWL. Overall, the patient is satisfied with the weight loss and health benefits related to the bariatric intervention. [place] note that she had a post op issue w remnant, drain inserted for 2 months. [facility] In 2018 she was readmitted due to remnant not working - states she was vomiting and having upper abdominal pain. Dietary compliance concerns: No Exercise and activity concerns: No Compliance and phychologic concerns: No Dysphagia and eating concerns: Yes Excessive skin concerns: No The patient is feeling well and denies any major complaints or GI symptoms. The dietary regimen and exercise activities are going fairly well. The patient is compliant with protein intake and vitamin/trace element supplementation. Labs were Not completed Laboratory results were pended. Review of Symptoms Lives in [facility] - her PCP is in [place]. Lowest wt 232 Jul 2013. Loss of her mother, stopped caring. EGD and C scope -for constipation, found there was lots of bile in stomach. No awakening in pm but mostly in am. No nicotine. Medical marijuana, vaping, for epilepsy, on average may have seizure once or twice per year. C scope poor prep- repeat in April,. States she was told previously that the small bowel is 120 cm and should be [address] Hunt in [place]. She is nauseated all the time. Takes Zofran prn. Most noticeable in am, gaps on medication. Eats yogurt, veggie and protein drinks. Off fentanyl since using medical marijuana No feeling of fullness. Semaglutide, started for ICH , last spinal tap, 18 opening pressure, usually 50's- Lost 50 lb since starting this med. Intermittent upper abd pain, stabbing - no bloating, or no radiation of pain. She was on ppi bid, and stopped since taking and feels better. Intracranial htn - neurologist, Anibal Thompson-has had dozens of spinal taps by LUCA Mercado Constitutional: negative for chills, fevers, night sweats, and weight loss Eyes: negative Ears, nose, mouth, throat, and face: negative Respiratory: negative for cough, dyspnea on exertion, hemoptysis, and sputum Cardiovascular: negative for chest pain, chest pressure/discomfort, dyspnea, irregular heart beat, palpitations, and syncope Integument/breasts: negative for dry skin and rash Gastrointestinal: as outlined above, Genitourinary:negative for dysuria, hematuria, and urinary incontinence Musculoskeletal:negative for back pain and myalgias Neurological: negative for dizziness, paresthesia, seizures, and weakness Behavioral/Psych: negative for anxiety, irritability, and sleep disturbance PAST HISTORIES Past Medical History: Diagnosis Date Abdominal pain Anxiety Arthritis Back pain Blurred vision Depression GERD (gastroesophageal reflux disease) H/O gastric bypass 02/07/2025 [facility] 2013 [place] Hip pain Intestinal malabsorption 02/07/2025 Knee pain Seizures (HCC) SOB (shortness of breath) Past Surgical History: Procedure Laterality Date APPENDECTOMY BRAIN SURGERY CLAVICLE SURGERY FRACTURE SURGERY GALLBLADDER SURGERY GASTRIC BYPASS 01/23/2014 [facility] - Dr Sumeet Mar [place]. HYSTERECTOMY TONSILLECTOMY Family History Problem Relation Name Age of Onset Asthma Mother Sarah COPD Mother Sarah Obesity Mother Sarah Hypertension Mother Sarah Arthritis Father Raymond Cancer Father Raymond Depression Father Raymond Diabetes Father Raymond Hypertension Father Raymond Mental illness Father Raymond Stroke Father Raymond Obesity Father Raymond Obesity Brother Hypertension Brother Obesity Paternal Grandmother Diabetes Paternal Grandmother Hypertension Paternal Grandmother Obesity Maternal Grandfather Diabetes Maternal Grandfather Hypertension Maternal Grandfather Heart disease Maternal Grandfather Obesity Maternal Grandmother Hypertension Maternal Grandmother Allergies Allergen Reactions Norepinephrine Other tremors Nsaids Other Green Peppers Gabapentin Other reaction(s): Other (See Comments), Tremor Tremors Penicillins Rash Received IV cefazolin at [facility] in 2018 and 2020 prior to procedures PHYSICAL EXAM BP 113/79 Pulse 106 Temp 36.3 C (97.3 F) Ht 5' 3.5 (1.613 m) Wt 240 lb 12.8 oz (109 kg) BMI 41.99 kg/m General: This patient is awake, alert, and oriented, with normal affect and is in no apparent distress. Cardiac: Regular rate and rhythm without evidence of murmur. Respiratory: Clear to auscultation bilaterally with normal effort. Abdomen: Obese, soft, non-tender, non-distended without masses/ No evidence of abdominal hernia / Incisions consistent with previous surgeries. Head and Neck: Obese, normocephalic and atraumatic/soft and supple, no lymphadenopathy or obvious bruits. No thyroidmegaly. Extremities: No cyanosis, clubbing or edema/ No calf tenderness/No restrictions of movement, is ambulatory without assistance. Neurological: Intact x 4 extremities, normal sensation, no focal deficits notes. Skin: Skin cool, warm and dry. No rashes or lesions noted. Rectal: Deferred LABORATORY STUDIES AND IMAGING Laboratory Studies: No results for input(s): NA, K, CL, CO2, BUN, CREATININE, GLUCOSE, CALCIUM in the last 72 hours. No results for input(s): WBC, RBC, HGB, HCT, MCV, MCH, MCHC, RDW, PLT, MPV in the last 72 hours. No results for input(s): ALKPHOS, ALT, AST, PROT, BILITOT, BILIDIR, LIPASE in the last 72 hours. No lab exists for component: LABALBU ASSESSMENT post KRYSTAL-EN-Y GASTRIC BYPASS - aka [facility] Visit Diagnoses: 1. Bile reflux gastritis 2. H/O gastric bypass 3. Intestinal malabsorption, unspecified type 4. Deficiency of other specified B group vitamins 5. Morbid obesity with BMI of 40.0-44.9, adult (HCC) 6. Anxiety 7. Depression, unspecified depression type 8. Intracranial hypertension PLAN Compliance with exercise and dietary regimen (see dietitian recommendations) Follow up with PCP for regular health maintenance vistis Follow up with obesity medicine team for annual bariatric follow up / bloodwork EGD UGI SBFT- NOT ON OR . OP NOTE FROM ORIGINAL SURGERY- [facility] IN [place], DR FULTON 2013. FILMS FROM CT SCAN FEB 01/04/25- PUSH TO PACS FROM [facility]. CONTACT PCP FOR LAB RESULTS - DR DAVIS IN [place] Orders Placed This Encounter Procedures [place] upper GI single contrast w small bowel follow through ATTESTATION I personally interviewed and examined the patient. I have reviewed their past medical, surgical, medication, allergy, social and family histories. I have performed an independent physical examination and have reviewed all pertinent laboratory and imaging results. I have reviewed with the patient my assessment of their condition as well as the treatment recommendations and the associated risks, benefits and options. I have spent a total of 45 minutes for this office visit in [id number] discussion, counseling of this patient, reviewing medical records and documenting the encounter. O ANTONIO SOTO MD, FACS, [facility] Rn Eligibility - Weight Management [place] [facility] - [facility], Foregut and Bariatric Surgery Fellowship ---[facility]--- Patient Care Team: Fede Davis MD as PCP - General (Family Medicine) Marco Antonio Soto MD as Surgeon (General Surgery) [facility] SUR[facility] WE[facility] MANAGEMENT PRO[facility] Rooming Note - INITIAL CONSULTATION Patient: Lexis Oakes Date of : 1985 Service Date: 02/09/2025 Patient is here today to discuss the possibility of weight loss surgery. Physician Supervised D/E: 3 Weight Metrics: Vitals BP: 113/79 Heart Rate: 106 Temp: 36.3 C (97.3 F) Baseline Measures Initial Height: 5' 3.5 (161.3 cm) Initial Weight: 240 lb 12.8 oz (109 kg) Initial BMI: 41.9 Initial EBW: 123 lb 4.8 oz (55.9 kg) Initial Waist Cricumference: 50.5 Initial Neck Circumference: 14 History of Difficult Intubation: No Patient is not on home O2 Completed by: Ellen Rivera MA documented in this encounter [facility] 02-08-2025 Procedure note [facility] 02-07-2025 Telephone encount er Note Spoke with patient and she is aware you are out this week and will respond to messages upon your return in office. She also needed to reschedule her appointment. Patient has been rescheduled and added to the cancellation list. Will work to get patient in sooner as we get cancellations. [facility] 02-07-2025 Miscellaneous Notes Formattin g of this note might be different from the original. Spoke with patient and she is aware you are out this week and will respond to messages upon your return in office. She also needed to reschedule her appointment. Patient has been rescheduled and added to the cancellation list. Will work to get patient in sooner as we get cancellations. documented in this encounter [facility] 01-15-2025 Instructions Lexis West APRN.MICHELLE MONROE - 01/15/2025 7:01 AM EST PATIENT PREOPERATIVE INSTRUCTIONS Janice Arroyo PA-C has scheduled you for your procedure at this surgery center: [facility]: [phone] -- [address] [address]. Arrival Time for Surgery: -You will receive a call from [facility] the afternoon before surgery after 2:30 pm (or Wednesday for Wednesday surgery) for a scheduled arrival time. - If you have not heard by 4 pm, please contact [facility] at [phone]. *Please be aware that emergency situations arise, which may delay or change your surgical time. If this happens, we will notify you as soon as possible and regret any inconvenience. Please read below carefully for your personalized instructions: Dietary Restrictions: - No solid food after midnight. - You may have 12 ounces of clear liquids (water, clear juices such as apple juice or gatorade, carbonated beverages, clear tea, black coffee, jello) until 2 hours before scheduled arrival at facility. -NO MILK, CREAMER, OR PULP JUICES Medications: Unless instructed differently below, stay on all of your medications until your surgery. Pre-Surgery Med Instructions Medication Instructions SEMAGLUTIDE SUBCUTANEOUS Stop 7 full days before surgery, last dose on/before 01/28/25. omeprazole (PRILOSEC) 20 mg capsule Take the day of surgery with a small sip of water traMADol (ULTRAM) 50 mg tablet Take as ordered cyanocobalamin (VITAMIN B-12) 1,000 mcg tab Do not take the day of surgery lacosamide (VIMPAT) 200 mg Take as ordered ARIPiprazole (ABILIFY) 10 mg tablet Take as ordered DULoxetine (CYMBALTA) 60 mg capsule Take as ordered Calcium Citrate 250 mg calcium tab Do not take the day of surgery If you start any new medications after today's visit, please contact the surgeon's office. Blood Thinning Medications: - Stop NSAIDS (Ibuprofen, Advil, Aleve, Motrin, Celebrex, Mobic, etc.) 7 days before surgery, as directed by your surgeon. - Stop Aspirin 7 days before surgery, as directed by your surgeon. - You may take Tylenol (Acetaminophen) or any of your pain medications that do not contain aspirin or NSAIDS as needed. Important Reminders: -Follow surgeons specific pre-operative instructions/ Skin-prep if applicable. - Candy, mints, and tobacco products are NOT permitted the morning of surgery. - glasses may be worn the morning of surgery. - NO jewelry, body piercings, makeup, hairpins or contacts are to be worn the day of surgery. If you develop symptoms such as a fever, cold, or flu, or have other changes to your health within 5 DAYS of scheduled surgery or the morning of surgery, please contact the surgeon and surgery center above. Personal Belongings: -Please have photo ID and insurance cards. -If you do not have a copy of advance directives on file with us, please bring a copy with you on the day of surgery. - Leave ALL valuables and money at home or with family members. For Outpatient Procedures: - YOU MUST HAVE A RESPONSIBLE ASSAULT AMPHIBIOUS VEHICLE CREWMAN TAKE YOU HOME. 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 - We recommend that a responsible person stays with you overnight to take care of you. - You cannot stay in a hotel alone after outpatient surgery. You will not be permitted to have your surgery, if you do not have someone to take care of you. If you already have an Advance Directive, please fax a copy to [phone] or email to for it to be added to your chart. If you do not have an Advance Directive, you can find the appropriate form and more information at [email or web address]. We recommend that you complete the Advance Directive form found on the website and bring it with you the day of your surgery. It can be witnessed and scanned into your chart that day. Thank you, for allowing me to participate in your care! Lexis West APRN.SENIOR SOUS CHEF, DNP documented in this encounter [facility] 01-15-2025 History and physi leidy note Images from the original note were not included. [facility] HISTORY AND PHYSICAL EXAMINATION SERVICE DATE: 01/15/2025 SERVICE TIME: 6:53 AM PRIMARY CARE PHYSICIAN: Fede Davis MD Assessment Patient has the following medical conditions which may affect david-operative course: IIH (idiopathic intracranial hypertension) Assessment: is scheduled for SPINAL PUNCTURE THERAPEUTIC, DRAIN CSF VIA NEEDLE OR CATH - Pending with Janice Arroyo PA-C on 02/05/2025 at [facility]. Difficult intravenous access Assessment: Has required a Midline in past and needs vein finder/US machine used. Gastroesophageal reflux disease Assessment: managed on PPI S/P gastric bypass Assessment: 2013, had >100lb weightloss Medical marijuana use Assessment: Vapes THC for Epilepsy Anxiety Assessment: managed on medications. Obesity, Class III, BMI 40-49.9 (morbid obesity) (HCC) Assessment: stated BMI today in [facility] was 41.20. on Semaglutide SQ for weightloss. Epilepsy (HCC) Assessment: Follows with Neurologist. Is managed on lacosamide (Vimpat) and medical marijuana. Last seizure was February 2023. Higgins Activity Status Index: METS: Walk indoors, such as around the house (1.75 METs) Do light work around the house, such as dusting or washing dishes (2.70 METs) Take care of self; that is eating, dressing, bathing, using the toilet (2.75 METs) Walk a block or two on level ground (2.75 METs) Do moderate work around the house, such as vacuuming, sweeping floors, or carrying in groceries (3.50 METs) Do yardwork, such as raking leaves, weeding, or pushing a power mower (4.50 METs) Have sexual relations (5.25 METs) Climb a flight of stairs or walk up a hill (5.50 METs) Do heavy work around the house, such as scrubbing floors, lifting or moving heavy furniture (8.00 METs) DASI Score: 36.7 Dependency List (Category): independent. Clinical Frailty Scale: 3. Well, with treated comorbid disease STOP-Bang Score: BMI greater than 35 kg/m^2 Denies snoring loudly Denies feeling tired, fatigued, or sleepy during the daytime Has not been observed to stop breathing or choking/gasping during sleep Denies having high blood pressure Patient 50 years old or younger Non-male patient STOP-Bang Score: 1 [id number] Score: Age: <65 Sex: female CHF history: No Hypertension history: No Stroke/TIA/thromboembolism history: No Vascular disease history: No Diabetes history: No [id number] Score: 1 ANESTHESIA FINDINGS: Intubation History: No history of difficult intubation. No abnormal airway history Significant Anesthesia Considerations: potential difficult IV/vein access Airway History: No history of difficult airway No abnormal airway history Pertinent negatives noted: no difficult airway documented by an anesthesiologist during past surgical procedure, no family history of airway difficulties, no history of head/neck surgery that distorted airway, no history of head/neck trauma that distorted airway, no history of head/neck radiation that distorted airway, no acromegaly, no congenital anomalies affecting airway management and no acquired pathologic states affecting airway I - PHYSICAL EVALUATION AIRWAY Patient intubated: No. Tracheostomy tube not present Mallampati: II. TM distance: >3 FB. Neck ROM: full ROM without neurological symptoms. Mouth opening: adequate. Short neck: no. Thick neck: no Rangle present: no Lip Bite Test: II Microretrognathia/Micronagthia/Rec essed Chin: No DENTAL Dental findings: missing tooth/teeth. II - ANESTHESIA PLAN Anesthetic plan additional comments: *PACC/TCI - anesthesia choice. Beta Poncho Monitoring Plan Post Procedure Analgesic Plan Prepared for Surgery: optimally prepared for surgery. CONSULTS: Patient does not require consults for optimization at this time Planned Anesthetic: anesthesia choice The Following Tests/Procedures Have Been Initiated: No orders of the defined types were placed in this encounter. This is a virtual visit using archify video visit. It required patient-provider interaction for the medical decision making as documented below. REASON FOR VISIT: Lexis Nguyen is a 39 year old female who is scheduled for Procedure(s) with comments: SPINAL PUNCTURE THERAPEUTIC, DRAIN CSF VIA NEEDLE OR CATH (Pending) - pt is on semaglutide at the request of Dr. Janice Arroyo for consultation. My final recommendation will be communicated back to the requesting physician by way of shared medical record or letter. Subjective The patient has the following: COVID-19 Immunization Status Completed or No Longer Recommended Covid-19 Vaccine (Series Information) Completed 09/09/2024 Imm Admin: COVID-19 vaccine, age 12+ yr (PFIZER-BIONTECH COMIRNATY) 10/25/2023 Imm Admin: COVID-19 vaccine, age 12+ yr, 2022- season (MODERNA) 09/01/2022 Imm Admin: COVID-19 vaccine, age 12+ yr, bivalent (PFIZER-BIONTECH) Only the first 3 history entries have been loaded, but more history exists. CHIEF COMPLAINT: PRE-OP evaluation HPI: 39 year old Female scheduled for SPINAL PUNCTURE THERAPEUTIC, DRAIN CSF VIA NEEDLE OR CATH - Pending with Janice Arroyo PA-C on 02/05/2025 at [facility] for idiopathic intracranial hypertension. Denies any fever, chills, nausea, vomiting, chest pain, abdominal pain, SOB. This is a virtual visit. The visit was conducted using archify video visit. It required patient-provider interaction for the medical decision making as documented below. I have communicated my name and active licensure. The patient's identity and physical location were verified at the time of this visit. Either the patient or their legal patient accounting representative has been informed of the risks and benefits of and alternatives to treatment through a remote evaluation and consents to proceed with the evaluation remotely. REVIEW OF SYSTEMS: General: No weight loss, malaise or fevers. Neurological: See HPI. Positive for: headaches and seizures. Negative for: cerebral palsy, RN MANAGED CARE tumor, delirium, dementia, hemiplegia, impaired sensorium, multiple sclerosis, paraplegia, Parkinson's disease, peripheral neuropathy, quadriplegia, TIA and strokes. Cardiovascular: No history of HTN requiring medication, no history of angina, CHF, [place], cardiac surgery or stents. Denies rest pain, gangrene or revascularization/amputation for PVD. No history of cardiovascular symptoms or problems. GI: Positive for: GERD Negative for: abdominal pain, ascites, colon cancer, dysphagia, diverticulitis, esophageal stricture, esophageal varices <6 months, GI bleed <30 days, heartburn, hepatitis, irritable bowel syndrome, inflammatory bowel disease, liver disease, nausea, pancreatitis, history of polyps, PUD, rectal cancer, vomiting and ETOH >2 drinks/day. : No history of dysuria, frequency or incontinence, stones or chronic kidney disease. No difficulty urinating, nocturia > 1 time per night or hematuria. 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 Endocrine: No history of diabetes. Has not taken steroids within the past 30 days. No history of endocrinological symptoms or problems. Hematology: No history of bleeding or clotting disorder. Patient is not taking anti-coagulation or platelet medications. No history of hematological symptoms or problems. Oncology: No history of CA metastasis, chemo within 30 days, or radiotherapy within 90 days. No history of oncological symptoms or problems. Psych: Positive for: anxiety and Marijuana Use. Negative for: ADD, ADHD, bipolar disorder, depression and drug dependency. Product type: Concentrate. Route of administration: Inhalation. Frequency: Daily. Duration used: 1 years or more. Musculoskeletal: Negative for joint pain or swelling, back pain or muscle pain. Skin: Negative for lesions, rash and itching. Implanted Devices: No implanted devices. PAST MEDICAL HISTORY Diagnosis Date Difficult intravenous access 02/16/2023 Epilepsy (HCC) IIH (idiopathic intracranial hypertension) PAST SURGICAL HISTORY Procedure Laterality Date APPENDIX NET-EXCIS(APPENDECTOMY)SYNOPTIC 2007 DIAGNOSTIC LUMBAR SPINAL PUNCTURE 10/18/2024 GASTRIC BYPASS HX 2014 HYSTERECTOMY 2021 MIDLINE INSERTION/CONSULT 07/28/2023 MIDLINE INSERTION/CONSULT 12/14/2023 MIDLINE INSERTION/CONSULT 02/01/2024 MIDLINE INSERTION/CONSULT 03/14/2024 MIDLINE INSERTION/CONSULT 06/07/2024 MIDLINE INSERTION/CONSULT 09/15/2024 PAST SURGICAL HISTORY OF 2019 collar bone fracture (hardware placement and removal) PAST SURGICAL HISTORY OF lumbar punctures (142) PAST SURGICAL HISTORY OF 02/2023 brain angiogram PAST SURGICAL HISTORY OF 2009 CASINO BANKER Shunt - removed in 2009 due to infection REMOVAL GALLBLADDER 2014 THERAPEUTIC SPINAL PUNCTURE DRAINAGE CSF 12/25/2024 SPINAL PUNCTURE THERAPEUTIC, DRAIN CSF VIA NEEDLE OR CATH THERAPEUTIC SPINAL PUNCTURE DRAINAGE CSF 11/20/2024 for Idiopathic Intracranial hypertention TONSILLECTOMY HX 2006 FAMILY HISTORY Problem Relation Age of Onset COPD Mother Diabetes Father Ischemic Heart Disease Father Stroke Father Skin Cancer Father Difficulty with anesthesia No Family History Anesthesia Problems No Family History Social History Tobacco Use Smoking status: Never Passive exposure: Never Smokeless tobacco: Never Vaping Use Vaping status: current everyday user Substances: THC Devices: Pre-filled or refillable cartridge Substance Use Topics Alcohol use: Not Currently Drug use: Yes Frequency: 7.0 times per week Comment: medical marijuana-vaping last used yesterday. Prior to Admission medications as of 01/15/25 0656 Medication Sig Last Dose Taking SEMAGLUTIDE SUBCUTANEOUS Inject subcutaneously. Yes omeprazole (PRILOSEC) 20 mg capsule Take 1 capsule by mouth once daily. Yes traMADol (ULTRAM) 50 mg tablet Take 1 tablet by mouth twice daily as needed for pain. Yes cyanocobalamin (VITAMIN B-12) 1,000 mcg tab Take 1 tablet by mouth once daily. Yes lacosamide (VIMPAT) 200 mg Take 1 tablet by mouth twice daily. Yes ARIPiprazole (ABILIFY) 10 mg tablet Take 10 mg by mouth once daily. Yes DULoxetine (CYMBALTA) 60 mg capsule duloxetine 60 mg capsule,delayed release TAKE 1 CAPSULE BY MOUTH TWICE DAILY Yes Calcium Citrate 250 mg calcium tab Take 1 tablet by mouth once daily. Yes lidocaine, PF, (XYLOCAINE) 10 mg/mL (1 %) soln injection 1-10 mL by INTRADERMAL route as needed. For use during PICC/Midline Insertion ONLY. No medication comments found. ALLERGIES Allergen Reactions Nsaids (Non-Steroid* GI Upset, Contraindication-Medical Surgical Because of gastric bypass Cavanaugh Pepper Rash Nortriptyline Other: See Comments Tremors Gabapentin Mental Status Change, Other: See Comments Tremors Penicillins Hives, Rash Received IV cefazolin at [facility] in 2018 and 2020 prior to procedures Received IV cefazolin at [facility] in 2019 and 2020 prior to procedures Objective PHYSICAL EXAM: (if completed, exam performed via video enabled technology) General: alert and oriented and healthy appearance. Pertinent negatives noted - not distressed and not uncooperative. Skin: normal color, no rash or lesions. HEENT: NO URI Symptoms noted. Cardiovascular: Pulse characterized as regular.Self recorded radial pulse on apple watch, is regular 85 bpm. . Respiratory: normal breath sounds, no wheezes or crackles. Pertinent negatives noted - no chest wall tenderness. NO Cough, SOB, wheezing noted. Self palpated chest wall, negative for tenderness. . Abdomen: Extremities: no deformity, no edema or tenderness, no joint swelling or clubbing. Neurological: normal cognition and motor skills. VITALS: Pulse 85 Resp 14 Ht 5' 4 (1.63m) Wt 240 lb (108.9kg) BMI 41.18 kg/(m^2). Diagnostic tests I personally reviewed and accepted for today's visit: Lab Value Units Date High Low HB 13.0 g/dL 08/15/2024 15.5 11.5 HCT 38.9 % 08/15/2024 46.0 36.0 WBC 5.92 k/uL 08/15/2024 11.00 3.70 PLT 195 k/uL 08/15/2024 400 150 NA No results within date range. K No results within date range. GLUC No results within date range. BUN No results within date range. CREAT No results within date range. PTSEC No results within date range. INR No results within date range. APTT No results within date range. ALT No results within date range. AST No results within date range. TBILI No results within date range. TSH No results within date range. Lab Value Units Date High Low HCGQT No results within date range. UHCG No results within date range. HCG, BODY* No results within date range. Lab Value Units Date High Low ABORHD No results within date range. ABSCREEN No results within date range. Hemoglobin A1C (%) Date Value 03/22/2023 5.1 No results found for this or any previous visit (from the past 8760 hours). No results found for this or any previous visit (from the past 92487 hours). Instructions Given to Patient: Instructions located in the after visit summary. Instructed to follow surgeons specific pre-operative instructions, including skin-prep. Patient given verbal and written preop instructions and voices comprehension and compliance. SIGNATURE: Lexis West APRN.CNP, DNP PATIENT NAME: Lexis Nguyen DATE: January 15, 2025 TIME: 7:20 AM PAGER/CONTACT #: [phone] [facility] 01-15-2025 History and physi leidy note Images from the original note were not included. [facility] Pre-Anesthesia Consultation Clinic HISTORY AND PHYSICAL EXAMINATION SERVICE DATE: 01/15/2025 SERVICE TIME: 6:53 AM PRIMARY CARE PHYSICIAN: Fede Davis MD Assessment Patient has the following medical conditions which may affect david-operative course: IIH (idiopathic intracranial hypertension) Assessment: is scheduled for SPINAL PUNCTURE THERAPEUTIC, DRAIN CSF VIA NEEDLE OR CATH - Pending with Janice Arroyo PA-C on 02/05/2025 at [facility]. Difficult intravenous access Assessment: Has required a Midline in past and needs vein finder/US machine used. Gastroesophageal reflux disease Assessment: managed on PPI S/P gastric bypass Assessment: 2013, had >100lb weightloss Medical marijuana use Assessment: Vapes THC for Epilepsy Anxiety Assessment: managed on medications. Obesity, Class III, BMI 40-49.9 (morbid obesity) (HCC) Assessment: stated BMI today in PACC was 41.20. on Semaglutide SQ for weightloss. Epilepsy (HCC) Assessment: Follows with Neurologist. Is managed on lacosamide (Vimpat) and medical marijuana. Last seizure was February 2023. Higgins Activity Status Index: METS: Walk indoors, such as around the house (1.75 METs) Do light work around the house, such as dusting or washing dishes (2.70 METs) Take care of self; that is eating, dressing, bathing, using the toilet (2.75 METs) Walk a block or two on level ground (2.75 METs) Do moderate work around the house, such as vacuuming, sweeping floors, or carrying in groceries (3.50 METs) Do yardwork, such as raking leaves, weeding, or pushing a power mower (4.50 METs) Have sexual relations (5.25 METs) Climb a flight of stairs or walk up a hill (5.50 METs) Do heavy work around the house, such as scrubbing floors, lifting or moving heavy furniture (8.00 METs) DASI Score: 36.7 Dependency List (Category): independent. Clinical Frailty Scale: 3. Well, with treated comorbid disease STOP-Bang Score: BMI greater than 35 kg/m^2 Denies snoring loudly Denies feeling tired, fatigued, or sleepy during the daytime Has not been observed to stop breathing or choking/gasping during sleep Denies having high blood pressure Patient 50 years old or younger Non-male patient STOP-Bang Score: 1 [id number] Score: Age: <65 Sex: female CHF history: No Hypertension history: No Stroke/TIA/thromboembolism history: No Vascular disease history: No Diabetes history: No [id number] Score: 1 ANESTHESIA FINDINGS: Intubation History: No history of difficult intubation. No abnormal airway history Significant Anesthesia Considerations: potential difficult IV/vein access Airway History: No history of difficult airway No abnormal airway history Pertinent negatives noted: no difficult airway documented by an anesthesiologist during past surgical procedure, no family history of airway difficulties, no history of head/neck surgery that distorted airway, no history of head/neck trauma that distorted airway, no history of head/neck radiation that distorted airway, no acromegaly, no congenital anomalies affecting airway management and no acquired pathologic states affecting airway I - PHYSICAL EVALUATION AIRWAY Patient intubated: No. Tracheostomy tube not present Mallampati: II. TM distance: >3 FB. Neck ROM: full ROM without neurological symptoms. Mouth opening: adequate. Short neck: no. Thick neck: no Rangel present: no Lip Bite Test: II Microretrognathia/Micronagthia/Rec essed Chin: No DENTAL Dental findings: missing tooth/teeth. II - ANESTHESIA PLAN Anesthetic plan additional comments: *PACC/TCI - anesthesia choice. Beta Poncho Monitoring Plan Post Procedure Analgesic Plan Prepared for Surgery: optimally prepared for surgery. CONSULTS: Patient does not require consults for optimization at this time Planned Anesthetic: anesthesia choice The Following Tests/Procedures Have Been Initiated: No orders of the defined types were placed in this encounter. This is a virtual visit using archify video visit. It required patient-provider interaction for the medical decision making as documented below. REASON FOR VISIT: Lexis Nguyen is a 39 year old female who is scheduled for Procedure(s) with comments: SPINAL PUNCTURE THERAPEUTIC, DRAIN CSF VIA NEEDLE OR CATH (Pending) - pt is on semaglutide at the request of Dr. Janice Arroyo for consultation. My final recommendation will be communicated back to the requesting physician by way of shared medical record or letter. Subjective The patient has the following: COVID-19 Immunization Status Completed or No Longer Recommended Covid-19 Vaccine (Series Information) Completed 09/09/2024 Imm Admin: COVID-19 vaccine, age 12+ yr (PFIZER-BIONTECH COMIRNATY) 10/25/2023 Imm Admin: COVID-19 vaccine, age 12+ yr, season (MODERNA) 09/01/2022 Imm Admin: COVID-19 vaccine, age 12+ yr, bivalent (PFIZER-BIONTECH) Only the first 3 history entries have been loaded, but more history exists. CHIEF COMPLAINT: PRE-OP evaluation HPI: 39 year old Female scheduled for SPINAL PUNCTURE THERAPEUTIC, DRAIN CSF VIA NEEDLE OR CATH - Pending with Janice Arroyo PA-C on 02/05/2025 at [facility] for idiopathic intracranial hypertension. Denies any fever, chills, nausea, vomiting, chest pain, abdominal pain, SOB. This is a virtual visit. The visit was conducted using archify video visit. It required patient-provider interaction for the medical decision making as documented below. I have communicated my name and active licensure. The patient's identity and physical location were verified at the time of this visit. Either the patient or their legal patient accounting representative has been informed of the risks and benefits of and alternatives to treatment through a remote evaluation and consents to proceed with the evaluation remotely. REVIEW OF SYSTEMS: General: No weight loss, malaise or fevers. Neurological: See HPI. Positive for: headaches and seizures. Negative for: cerebral palsy, RN MANAGED CARE tumor, delirium, dementia, hemiplegia, impaired sensorium, multiple sclerosis, paraplegia, Parkinson's disease, peripheral neuropathy, quadriplegia, TIA and strokes. Cardiovascular: No history of HTN requiring medication, no history of angina, CHF, [place], cardiac surgery or stents. Denies rest pain, gangrene or revascularization/amputation for PVD. No history of cardiovascular symptoms or problems. GI: Positive for: GERD Negative for: abdominal pain, ascites, colon cancer, dysphagia, diverticulitis, esophageal stricture, esophageal varices <6 months, GI bleed <30 days, heartburn, hepatitis, irritable bowel syndrome, inflammatory bowel disease, liver disease, nausea, pancreatitis, history of polyps, PUD, rectal cancer, vomiting and ETOH >2 drinks/day. : No history of dysuria, frequency or incontinence, stones or chronic kidney disease. No difficulty urinating, nocturia > 1 time per night or hematuria. 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 Endocrine: No history of diabetes. Has not taken steroids within the past 30 days. No history of endocrinological symptoms or problems. Hematology: No history of bleeding or clotting disorder. Patient is not taking anti-coagulation or platelet medications. No history of hematological symptoms or problems. Oncology: No history of CA metastasis, chemo within 30 days, or radiotherapy within 90 days. No history of oncological symptoms or problems. Psych: Positive for: anxiety and Marijuana Use. Negative for: ADD, ADHD, bipolar disorder, depression and drug dependency. Product type: Concentrate. Route of administration: Inhalation. Frequency: Daily. Duration used: 1 years or more. Musculoskeletal: Negative for joint pain or swelling, back pain or muscle pain. Skin: Negative for lesions, rash and itching. Implanted Devices: No implanted devices. PAST MEDICAL HISTORY Diagnosis Date Difficult intravenous access 02/16/2023 Epilepsy (HCC) IIH (idiopathic intracranial hypertension) PAST SURGICAL HISTORY Procedure Laterality Date APPENDIX NET-EXCIS(APPENDECTOMY)SYNOPTIC 2007 DIAGNOSTIC LUMBAR SPINAL PUNCTURE 10/18/2024 GASTRIC BYPASS HX 2014 HYSTERECTOMY 2021 MIDLINE INSERTION/CONSULT 07/28/2023 MIDLINE INSERTION/CONSULT 12/14/2023 MIDLINE INSERTION/CONSULT 02/01/2024 MIDLINE INSERTION/CONSULT 03/14/2024 MIDLINE INSERTION/CONSULT 06/07/2024 MIDLINE INSERTION/CONSULT 09/15/2024 PAST SURGICAL HISTORY OF 2019 collar bone fracture (hardware placement and removal) PAST SURGICAL HISTORY OF lumbar punctures (142) PAST SURGICAL HISTORY OF 02/2023 brain angiogram PAST SURGICAL HISTORY OF 2009 CASINO BANKER Shunt - removed in 2009 due to infection REMOVAL GALLBLADDER 2014 THERAPEUTIC SPINAL PUNCTURE DRAINAGE CSF 12/25/2024 SPINAL PUNCTURE THERAPEUTIC, DRAIN CSF VIA NEEDLE OR CATH THERAPEUTIC SPINAL PUNCTURE DRAINAGE CSF 11/20/2024 for Idiopathic Intracranial hypertention TONSILLECTOMY HX 2006 FAMILY HISTORY Problem Relation Age of Onset COPD Mother Diabetes Father Ischemic Heart Disease Father Stroke Father Skin Cancer Father Difficulty with anesthesia No Family History Anesthesia Problems No Family History Social History Tobacco Use Smoking status: Never Passive exposure: Never Smokeless tobacco: Never Vaping Use Vaping status: current everyday user Substances: THC Devices: Pre-filled or refillable cartridge Substance Use Topics Alcohol use: Not Currently Drug use: Yes Frequency: 7.0 times per week Comment: medical marijuana-vaping last used yesterday. Prior to Admission medications as of 01/15/25 0656 Medication Sig Last Dose Taking SEMAGLUTIDE SUBCUTANEOUS Inject subcutaneously. Yes omeprazole (PRILOSEC) 20 mg capsule Take 1 capsule by mouth once daily. Yes traMADol (ULTRAM) 50 mg tablet Take 1 tablet by mouth twice daily as needed for pain. Yes cyanocobalamin (VITAMIN B-12) 1,000 mcg tab Take 1 tablet by mouth once daily. Yes lacosamide (VIMPAT) 200 mg Take 1 tablet by mouth twice daily. Yes ARIPiprazole (ABILIFY) 10 mg tablet Take 10 mg by mouth once daily. Yes DULoxetine (CYMBALTA) 60 mg capsule duloxetine 60 mg capsule,delayed release TAKE 1 CAPSULE BY MOUTH TWICE DAILY Yes Calcium Citrate 250 mg calcium tab Take 1 tablet by mouth once daily. Yes lidocaine, PF, (XYLOCAINE) 10 mg/mL (1 %) soln injection 1-10 mL by INTRADERMAL route as needed. For use during PICC/Midline Insertion ONLY. No medication comments found. ALLERGIES Allergen Reactions Nsaids (Non-Steroid* GI Upset, Contraindication-Medical Surgical Because of gastric bypass Cavanaugh Pepper Rash Nortriptyline Other: See Comments Tremors Gabapentin Mental Status Change, Other: See Comments Tremors Penicillins Hives, Rash Received IV cefazolin at [facility] in 2018 and 2020 prior to procedures Received IV cefazolin at [facility] in 2019 and 2020 prior to procedures Objective PHYSICAL EXAM: (if completed, exam performed via video enabled technology) General: alert and oriented and healthy appearance. Pertinent negatives noted - not distressed and not uncooperative. Skin: normal color, no rash or lesions. HEENT: NO URI Symptoms noted. Cardiovascular: Pulse characterized as regular.Self recorded radial pulse on apple watch, is regular 85 bpm. . Respiratory: normal breath sounds, no wheezes or crackles. Pertinent negatives noted - no chest wall tenderness. NO Cough, SOB, wheezing noted. Self palpated chest wall, negative for tenderness. . Abdomen: Extremities: no deformity, no edema or tenderness, no joint swelling or clubbing. Neurological: normal cognition and motor skills. VITALS: Pulse 85 Resp 14 Ht 5' 4 (1.63m) Wt 240 lb (108.9kg) BMI 41.18 kg/(m^2). Diagnostic tests I personally reviewed and accepted for today's visit: Lab Value Units Date High Low HB 13.0 g/dL 08/15/2024 15.5 11.5 HCT 38.9 % 08/15/2024 46.0 36.0 WBC 5.92 k/uL 08/15/2024 11.00 3.70 PLT 195 k/uL 08/15/2024 400 150 NA No results within date range. K No results within date range. GLUC No results within date range. BUN No results within date range. CREAT No results within date range. PTSEC No results within date range. INR No results within date range. APTT No results within date range. ALT No results within date range. AST No results within date range. TBILI No results within date range. TSH No results within date range. Lab Value Units Date High Low HCGQT No results within date range. UHCG No results within date range. HCG, BODY* No results within date range. Lab Value Units Date High Low ABORHD No results within date range. ABSCREEN No results within date range. Hemoglobin A1C (%) Date Value 03/22/2023 5.1 No results found for this or any previous visit (from the past 8760 hours). No results found for this or any previous visit (from the past 28752 hours). Instructions Given to Patient: Instructions located in the after visit summary. Instructed to follow surgeons specific pre-operative instructions, including skin-prep. Patient given verbal and written preop instructions and voices comprehension and compliance. SIGNATURE: Lexis West APRN.CNP, DNP PATIENT NAME: Lexis Nguyen DATE: January 15, 2025 TIME: 7:20 AM PAGER/CONTACT #: [phone] documented in this encounter [facility] 12-28-2024 Note Addended by: STEFANO CHACON on: 12/28/2024 10:29 AM Modules accepted: Orders [facility] 12-28-2024 Miscellaneous Notes Addended by: STEFANO CHACON on: 12/28/2024 10:29 AM Modules accepted: Orders documented in this encounter [facility] 12-25-2024 Note HNO ID: [id number] Author: JOSE COTTON RN Service: ? Author Type: Registered Nurse Type: Nursing Progress Note Filed: 12/25/2024 10:16 Note Text: Closing pressure [address] [facility] 12-25-2024 Note HNO ID: [id number] Author: JOSE COTTON RN Service: ? Author Type: Registered Nurse Type: Nursing Progress Note Filed: 12/25/2024 10:11 Note Text: Opening pressure [address] [facility] 12-19-2024 Evaluation note Diagnosis Onset Date Resolution GERD (gastroesophageal reflux disease) acute December 19 12:24pm Abdominal pain inactive December 192024 12:24pm Epigastric pain acute January 04, 2025 3:03pm GERD (gastroesophageal reflux disease) acute January 04, 025 3:03pm History of Krystal-en-Y gastric bypass acute January 04, 2 025 3:03pm [facility] Work Phone: 1(703) 954-346201-28-2025 [facility] Medical Records Department [address] [place] [id number] History Physical Exam 12/19/24 1302 MR#: [id number] Acct: [id number] Name: LEXIS NGUYEN Rep #: [id number] : 1985 39 From: Wilton Hunt DO PCP: Dr. Fede Davis MD Status:[facility] Location: [place] [address] HPI - General General Date of Admission: 12/19/24 Date of Service: 12/19/24 Chief Complaint: Abdominal pain and change in bowels HPI Narrative LEXIS NGUYEN, is a 39 F who presents for the endoscopic evaluation of abdominal pain, change in bowels, gastroesophageal reflux disease, nausea, bloating. Pt has had constipation for as long as she can remember. She is s/p gastric bypass in 2013.Since starting semaglutide 2 months ago this has worsened. SHe will have a bm every couple of weeks. She did start taking magnesium daily and miralax every couple days which has helped some. She did have a colonoscopy at age 8 due to rectal bleeding and tells me she had a polyp. She is also having severe abdominal pain when she is constipate. This is a stabbing pain and has sent her to the ED before. SHe is s/p cholecystectomy. SHe does have upper GI complaint of heartburn. This has also been worsening with the semaglutide. She is currently on 20 md of omeprazole. SHe would like to increase the dose CT abd/pelvis 09.12.24; Marked diffuse fecal retention. No definite acute abnormality. [facility] Medical History Wears glasses Wears partial dentures Marijuana use Arthritis Back pain Migraine headache Intracranial hypertension Gastric reflux Non-smoker History of pain when walking Hypertension History of broken collarbone Seizure Ovarian cyst Depression Anxiety Home Medications ???Medication ???Instructions ???Recorded ???Last Taken ???Type aripiprazole 5 mg tablet 10 mg PO QHS 07/05/22 Unknown History lorazepam 0.5 mg tablet 0.5 mg PO DAILY PRN PRN Anxiety 07/05/22 Unknown History tramadol 50 mg tablet 50 mg PO PRN PRN Pain 07/05/22 Unknown History dicyclomine 10 mg capsule 20 mg (2 x 10 mg) PO TID PRN 09/12/24 Unknown Rx abdominal pain #20 CAPSULES omeprazole 40 mg capsule,delayed 40 mg PO QDAY #90 caps 10/17/24 12/19/24 Rx release WEYGOVY 20 u subcut RODRÍGUEZ 12/15/24 12/03/24 History duloxetine 60 mg capsule,delayed 60 mg PO BID 12/15/24 12/19/24 History release lacosamide 200 mg tablet 200 mg PO BID 12/15/24 12/19/24 History Allergy/AdvReac Type Severity Reaction Status Date / Time nortriptyline Allergy Intermediate TREMORS Verified 12/19/24 12:38 pepper (genus Capsicum) Allergy Mild Rash Verified 12/19/24 12:38 Penicillins Allergy Rash Verified 12/19/24 12:38 gabapentin AdvReac TREMORS Verified 12/19/24 12:38 NSAIDS (Non-Steroidal AdvReac GASTRIC Verified 12/19/24 12:38 Anti-Inflamma BYPASS Surgical History Hx of colonoscopy Hx of tonsillectomy Hx of gastric bypass S/P CASINO BANKER shunt History of appendectomy History of cholecystectomy H/O: hysterectomy Social History Smoking Status: Never smoker ROS Constitutional Constitutional: Denies fatigue, fever(s), poor appetite, weight gain or weight loss Gastrointestinal Gastrointestinal: Denies belching, bloating, change in bowel habits, change in stool character, chewing difficulty, coffee ground emesis, constipation, cramping, diarrhea, dyspepsia, dysphagia, early satiety, excessive flatus, fecal incontinence, heartburn, hematemesis, hematochezia, hemorrhoids, loose stools, melena, nausea, odynophagia, rectal bleeding, tenesmus, vomiting or weight changes Vital Signs Vital Signs Vital Signs: 12/19/24 12:39 12/19/24 12:39 Temperature 98.5 F Temperature Source Temporal Pulse Rate 91 Respiratory Rate 16 Respiratory Pattern Normal Blood Pressure 106/92 H Blood Pressure Mean 96 Blood Pressure Source Monitor Blood Pressure Position Semi-Fowlers Blood Pressure Location Left Arm Pulse Ox 100 Oxygen Delivery Method Room Air Weight Weight: 253 lb Body Mass Index (BMI) 43.4 Physical Exam Const alert, oriented x3, no apparent distress and healthy appearing General Appearance: cooperative GI normal to inspection, nondistended, normoactive bowel sounds, soft to palpation, non-tender and non- distended Percussion: normal to percussion Rectal Exam: deferred Assessment Plan Assessment/Plan (1) GERD (gastroesophageal reflux disease): PLAN: Assessment and Plan Assessment and Plan (1) Constipation: Status: Inactive Plan: This is a 39 yo female pt with long hx of constipation. CT scan from August 2024 showed fecal retention and could not r (more content not included)...[facility]01-16-2025 History and physical note* Cyndi Villasenor APRN.SENIOR SOUS CHEF - 12/07/2024 7:30 AM EST Images from the original note were not included. [facility] HISTORY AND PHYSICAL EXAMINATION SERVICE DATE: 12/07/2024 SERVICE TIME: 7:27 AM Patient has been identified by name and date of : Yes Reason for contact: PACC visit Accompanied by: Self This is a virtual visit using [employer] Zoom Video Visit. It required patient- provider interaction for the medical decision making as documented below. I have communicated my name and active licensure. The patient's identity and physical location wereverified at the time of this visit. Either the patient or their legal patient accounting representative has been informed of the risks and benefits of and alternatives to treatment through a remote evaluation and consents to proceed with the evaluation remotely. PRIMARY CARE PHYSICIAN: Fede Davis MD REASON FOR VISIT: Lexis Nguyen is a 39 year old female who is scheduled for Pending - SPINAL PUNCTURE THERAPEUTIC,DRAIN CSF VIA NEEDLE OR CATH at the request of for consultation. My final recommendation will be communicated back to the requesting physician by way of shared medical record or letter. Assessment Epilepsy (HCC) Assessment: Following with Dr. Thompson with [facility]care at [facility], . Last seizure February 2024 Well controlled on rx and medical marijuana. Difficult intravenous access Assessment: Per patient, requires US for PIV. Has had to have midline placed in past farzad to unable to obtain IV Medical marijuana use Assessment: Daily vape user. Uses for pain and seizures Gastroesophageal reflux disease Assessment: Controlled on medication Morbid obesity (HCC) Assessment: Body mass index is 42.05 kg/m . On Semaglutide, advised to not take at least 7 days prior to procedure S/P gastric bypass Assessment: 2013 Major depression Anxiety Assessment: Stable on medication Higgins Activity Status Index: METS: Walk indoors, such as around the house (1.75 METs) Do light work around the house, such as dusting or washing dishes (2.70 METs) Take care of self; that is eating, dressing, bathing, using the toilet (2.75 METs) Walk a block or two on level ground (2.75 METs) Do moderate work around the house, such as vacuuming, sweeping floors, or carrying in groceries (3.50 METs) Do yardwork, such as raking leaves, weeding, or pushing a power mower (4.50 METs) Climb a flight of stairs or walk up a hill (5.50 METs) DASI Score: 23.45 Patient denies any chest pain or undue shortness of breath with the above physical activity. Clinical Frailty Scale: 3. Well, with treated comorbid disease STOP-Bang Score: BMI greater than 35 kg/m^2 Denies snoring loudly Denies feeling tired, fatigued, or sleepy during the daytime Has not been observed to stop breathing or choking/gasping during sleep Patient 50 years old or younger Does not have a large neck Non-male patient STOP-Bang Score: 1 [id number] Score: Age: <65 Sex: female CHF history: No Hypertension history: No Stroke/TIA/thromboembolism history: No Vascular disease history: No Diabetes history: No [id number] Score: 1 ANESTHESIA FINDINGS: Intubation History: No history of difficult intubation Significant Anesthesia Considerations: potential difficult IV/vein access Airway History: No history of difficult airway I - PHYSICAL EVALUATION AIRWAY Patient intubated: No. Tracheostomy tube not present Mallampati: II. TM distance: >3 FB. Neck ROM: full ROM without neurological symptoms. Mouth opening: adequate. Short neck: no. Thick neck: no DENTAL Dentures, upper: complete. Dentures, lower: complete. II - ANESTHESIA PLAN Anesthetic plan additional comments: *PACC/TCI - anesthesia choice. Beta Poncho Monitoring Plan Post Procedure Analgesic Plan Prepared for surgery: This patient is optimally prepared for surgery. CONSULTS: Patient does not require consults for optimization at this time. The Following Tests/Procedures Have Been Initiated: Labs not indicated per PACC protocol, EKG not indicated per PACC protocol Planned Anesthetic: Per anesthesia choice Subjective CHIEF COMPLAINT: Pre-op visit HPI: 39 year old IIH that has had lumbar puncture in past. Last procedure 11/20. Scheduled fro above procedure REVIEW OF SYSTEMS: PAIN ASSESSMENT: General: No weight loss, malaise or fevers. Neuro: See HPI Epilepsy- last seizure 02/2024 Respiratory: No history of current cough or dyspnea, or pneumonia in the past 6 weeks. No history of respiratory/pulmonary symptoms or problems. Cardiovascular: No history of HTN requiring medication, no history of angina, CHF, [place], cardiac surgery or stents. Denies rest pain, gangrene or revascularization/amputation for PVD. No history of cardiovascular symptoms or problems. GI: Negative for Abdominal pain, Liver disease +GERD : No history of dysuria, frequency or incontinence,, stones or chronic kidney disease STOCK PATCHER: Negative for abnormal vaginal bleeding, abnormal vaginal discharge. : N/A, No LMP recorded. Patient has had a hysterectomy. Endocrine: No history of diabetes. Has not taken steroids within the past 30 days. No history of endocrinological symptoms or problems. Hematology: No history of bleeding or clotting disorder. Pt is not taking anti- coagulation or platelet medications. No history of hematological symptoms or problems. Oncology: No history of CA metastasis, chemo within 30 days, or radiotherapy within 90 days. Has not lost 10% of body wt in 6 months. No history of oncological symptoms or problems. Implanted Devices: No Psych: Anxiety, Depression Marijuana use: No Musculoskeletal: Back pain Skin: Negative for lesions, rash and itching. The patient has the following: ACTIVE PROBLEM LIST Anxiety Epilepsy (Hcc) Gastroesophageal Reflux Disease Major Depression, Single Episode Morbid Obesity (Hcc) Iih (Idiopathic Intracranial Hypertension) Difficult Intravenous Access Morbid Obesity With Bmi of 45.0-49.9, Adult (Hcc) Idiopathic Intracranial Hypertension Headaches S/P Gastric Bypass Medical Marijuana Use Exhausted Vascular Access Jack (Obstructive Sleep Apnea) Obesity Due to Excess Calories Covid Immunization Dates Covid-19 Vaccine (Series Information) Completed 09/09/2024 Imm Admin: COVID-19 vaccine, age 12+ yr (PFIZER-BIONTECH COMIRNATY) 10/25/2023 Imm Admin: COVID-19 vaccine, age 12+ yr, 2022- season (MODERNA) 09/01/2022 Imm Admin: COVID-19 vaccine, age 12+ yr, bivalent ([employer]) 04/02/2021 Imm Admin: COVID-19 original vaccine, full dose, monovalent (MODERNA) 03/05/2021 Imm Admin: COVID-19 original vaccine, full dose, monovalent (MODERNA) Only the first 5 history entries have been loaded, but more history exists. PAST MEDICAL HISTORY Diagnosis Date Difficult intravenous access 02/16/2023 Epilepsy (HCC) IIH (idiopathic intracranial hypertension) PAST SURGICAL HISTORY Procedure Laterality Date APPENDIX NET-EXCIS(APPENDECTOMY)SYNOPTIC 2007 GASTRIC BYPASS HX 2014 HYSTERECTOMY 2021 MIDLINE INSERTION/CONSULT 07/28/2023 MIDLINE INSERTION/CONSULT 12/14/2023 MIDLINE INSERTION/CONSULT 02/01/2024 MIDLINE INSERTION/CONSULT 03/14/2024 MIDLINE INSERTION/CONSULT 06/07/2024 MIDLINE INSERTION/CONSULT 09/15/2024 PAST SURGICAL HISTORY OF 2020 collar bone fracture (hardware placement and removal) PAST SURGICAL HISTORY OF lumbar punctures (142) PAST SURGICAL HISTORY OF 02/2023 brain angiogram PAST SURGICAL HISTORY OF 2009 CASINO BANKER Shunt - removed in 2009 due to infection REMOVAL GALLBLADDER 2015 TONSILLECTOMY HX 2006 FAMILY HISTORY Problem Relation Age of Onset COPD Mother Diabetes Father Ischemic Heart Disease Father Stroke Father Skin Cancer Father Difficulty with anesthesia No Family History Anesthesia Problems No Family History Social History Tobacco Use Smoking status: Never Passive exposure: Never Smokeless tobacco: Never Substance Use Topics Alcohol use: Not Currently Drug use: Yes Frequency: 7.0 times per week Comment: medical marijuana-vaping last used yesterday. Prior to Admission medications as of 12/07/24 0729 Medication Sig Last Dose Taking SEMAGLUTIDE SUBCUTANEOUS Inject subcutaneously. Yes omeprazole (PRILOSEC) 20 mg capsule Take 1 capsule by mouth once daily. Yes traMADol (ULTRAM) 50 mg tablet Take 1 tablet by mouth twice daily as needed for pain. Yes cyanocobalamin (VITAMIN B-12) 1,000 mcg tab Take 1 tablet by mouth once daily. Yes lacosamide (VIMPAT) 200 mg Take 1 tablet by mouth twice daily. Yes ARIPiprazole (ABILIFY) 10 mg tablet Take 10 mg by mouth once daily. Yes DULoxetine (CYMBALTA) 60 mg capsule duloxetine 60 mg capsule,delayed release TAKE 1 CAPSULE BY MOUTH TWICE DAILY Yes Calcium Citrate 250 mg calcium tab Take 1 tablet by mouth once daily. Yes lidocaine, PF, (XYLOCAINE) 10 mg/mL (1 %) soln injection 1-10 mL by INTRADERMAL route as needed. For use during PICC/Midline Insertion ONLY. No medication comments found. ALLERGIES Allergen Reactions Nsaids (Non-Steroid* GI Upset, Contraindication-Medical Surgical Because of gastric bypass Cavanaugh Pepper Rash Nortriptyline Other: See Comments Tremors Gabapentin Mental Status Change, Other: See Comments Tremors Penicillins Hives, Rash Received IV cefazolin at [facility] in 2018 and 2020 prior to procedures Received IV cefazolin at [facility] in 2019 and 2020 prior to procedures Objective PHYSICAL EXAM: VITALS: Resp 18 Ht 5' 4 (1.63m) Wt 245 lb (111.1kg) BMI 42.03 kg/(m^2). VIDEO EXAM: (if completed, performed via video enabled technology) GENERAL: alert and appropriate, in no distress, well-hydrated, well nourished, and happy, smiling, interactive SKIN: no rash noted OROPHARYNX: moist mucus membranes NECK: full ROM, no cervical LNs noted RESPIRATORY: breathing non-labored CHEST: equal chest rise with normal respiratory effort HEART: 60 bpm palpated by patient, No JVD, cyanosis or edema noted ABDOMEN: soft and non-tender NEUROLOGIC: no obvious deficit Diagnostic tests reviewed for today's visit: Lab Value Units Date High Low HB 13.0 g/dL 08/15/2024 15.5 11.5 HCT 38.9 % 08/15/2024 46.0 36.0 WBC 5.92 k/uL 08/15/2024 11.00 3.70 PLT 195 k/uL 08/15/2024 400 150 EKG Procedure Date : Oct 10 2023 04:05:35 Edit Date : Oct 11 2023 08:14:38 Diagnosis: NORMAL SINUS RHYTHM CANNOT EXCLUDE ANTERIOR MYOCARDIAL INFARCTION , AGE UNDETERMINED ABNORMAL ECG Instructions Given to Patient: Instructions located in the after visit summary. Patient given verbal and written preop instructions and voices comprehension and compliance. SIGNATURE: Cyndi Villasenor APRN.CNP PATIENT NAME: Lexis Nguyen DATE: 12/07/2024 [facility]01-16-2025 History and physical note* Cyndi Villasenor APRN.CNP - 12/07/2024 7:30 AM EST Images from the original note were not included. [facility] HISTORY AND PHYSICAL EXAMINATION SERVICE DATE: 12/07/2024 SERVICE TIME: 7:27 AM Patient has been identified by name and date of : Yes Reason for contact: PACC visit Accompanied by: Self This is a virtual visit using [employer] Video Visit. It required patient- provider interaction for the medical decision making as documented below. I have communicated my name and active licensure. The patient's identity and physical location wereverified at the time of this visit. Either the patient or their legal patient accounting representative has been informed of the risks and benefits of and alternatives to treatment through a remote evaluation and consents to proceed with the evaluation remotely. PRIMARY CARE PHYSICIAN: Fede Davis MD REASON FOR VISIT: Lexis Nguyen is a 39 year old female who is scheduled for Pending - SPINAL PUNCTURE THERAPEUTIC,DRAIN CSF VIA NEEDLE OR CATH at the request of for consultation. My final recommendation will be communicated back to the requesting physician by way of shared medical record or letter. Assessment Epilepsy (HCC) Assessment: Following with Dr. Thompson with neurocare at [facility], . Last seizure February 2024 Well controlled on rx and medical marijuana. Difficult intravenous access Assessment: Per patient, requires US for PIV. Has had to have midline placed in past farzad to unable to obtain IV Medical marijuana use Assessment: Daily vape user. Uses for pain and seizures Gastroesophageal reflux disease Assessment: Controlled on medication Morbid obesity (HCC) Assessment: Body mass index is 42.05 kg/m . On Semaglutide, advised to not take at least 7 days prior to procedure S/P gastric bypass Assessment: 2013 Major depression Anxiety Assessment: Stable on medication Higgins Activity Status Index: METS: Walk indoors, such as around the house (1.75 METs) Do light work around the house, such as dusting or washing dishes (2.70 METs) Take care of self; that is eating, dressing, bathing, using the toilet (2.75 METs) Walk a block or two on level ground (2.75 METs) Do moderate work around the house, such as vacuuming, sweeping floors, or carrying in groceries (3.50 METs) Do yardwork, such as raking leaves, weeding, or pushing a power mower (4.50 METs) Climb a flight of stairs or walk up a hill (5.50 METs) DASI Score: 23.45 Patient denies any chest pain or undue shortness of breath with the above physical activity. Clinical Frailty Scale: 3. Well, with treated comorbid disease STOP-Bang Score: BMI greater than 35 kg/m^2 Denies snoring loudly Denies feeling tired, fatigued, or sleepy during the daytime Has not been observed to stop breathing or choking/gasping during sleep Patient 50 years old or younger Does not have a large neck Non-male patient STOP-Bang Score: 1 [id number] Score: Age: <65 Sex: female CHF history: No Hypertension history: No Stroke/TIA/thromboembolism history: No Vascular disease history: No Diabetes history: No [id number] Score: 1 ANESTHESIA FINDINGS: Intubation History: No history of difficult intubation Significant Anesthesia Considerations: potential difficult IV/vein access Airway History: No history of difficult airway I - PHYSICAL EVALUATION AIRWAY Patient intubated: No. Tracheostomy tube not present Mallampati: II. TM distance: >3 FB. Neck ROM: full ROM without neurological symptoms. Mouth opening: adequate. Short neck: no. Thick neck: no DENTAL Dentures, upper: complete. Dentures, lower: complete. II - ANESTHESIA PLAN Anesthetic plan additional comments: *PACC/TCI - anesthesia choice. Beta Poncho Monitoring Plan Post Procedure Analgesic Plan Prepared for surgery: This patient is optimally prepared for surgery. CONSULTS: Patient does not require consults for optimization at this time. The Following Tests/Procedures Have Been Initiated: Labs not indicated per PACC protocol, EKG not indicated per PACC protocol Planned Anesthetic: Per anesthesia choice Subjective CHIEF COMPLAINT: Pre-op visit HPI: 39 year old IIH that has had lumbar puncture in past. Last procedure 11/20. Scheduled fro above procedure REVIEW OF SYSTEMS: PAIN ASSESSMENT: General: No weight loss, malaise or fevers. Neuro: See HPI Epilepsy- last seizure 02/2024 Respiratory: No history of current cough or dyspnea, or pneumonia in the past 6 weeks. No history of respiratory/pulmonary symptoms or problems. Cardiovascular: No history of HTN requiring medication, no history of angina, CHF, [place], cardiac surgery or stents. Denies rest pain, gangrene or revascularization/amputation for PVD. No history of cardiovascular symptoms or problems. GI: Negative for Abdominal pain, Liver disease +GERD : No history of dysuria, frequency or incontinence,, stones or chronic kidney disease STOCK PATCHER: Negative for abnormal vaginal bleeding, abnormal vaginal discharge. : N/A, No LMP recorded. Patient has had a hysterectomy. Endocrine: No history of diabetes. Has not taken steroids within the past 30 days. No history of endocrinological symptoms or problems. Hematology: No history of bleeding or clotting disorder. Pt is not taking anti- coagulation or platelet medications. No history of hematological symptoms or problems. Oncology: No history of CA metastasis, chemo within 30 days, or radiotherapy within 90 days. Has not lost 10% of body wt in 6 months. No history of oncological symptoms or problems. Implanted Devices: No Psych: Anxiety, Depression Marijuana use: No Musculoskeletal: Back pain Skin: Negative for lesions, rash and itching. The patient has the following: ACTIVE PROBLEM LIST Anxiety Epilepsy (Hcc) Gastroesophageal Reflux Disease Major Depression, Single Episode Morbid Obesity (Hcc) Iih (Idiopathic Intracranial Hypertension) Difficult Intravenous Access Morbid Obesity With Bmi of 45.0-49.9, Adult (Hcc) Idiopathic Intracranial Hypertension Headaches S/P Gastric Bypass Medical Marijuana Use Exhausted Vascular Access Jack (Obstructive Sleep Apnea) Obesity Due to Excess Calories Covid Immunization Dates Covid-19 Vaccine (Series Information) Completed 09/09/2024 Imm Admin: COVID-19 vaccine, age 12+ yr (PFIZER-BIONTECH COMIRNATY) 10/25/2023 Imm Admin: COVID-19 vaccine, age 12+ yr, 2022- season (MODERNA) 09/01/2022 Imm Admin: COVID-19 vaccine, age 12+ yr, bivalent ([employer]) 04/02/2021 Imm Admin: COVID-19 original vaccine, full dose, monovalent (MODERNA) 03/05/2021 Imm Admin: COVID-19 original vaccine, full dose, monovalent (MODERNA) Only the first 5 history entries have been loaded, but more history exists. PAST MEDICAL HISTORY Diagnosis Date Difficult intravenous access 02/16/2023 Epilepsy (HCC) IIH (idiopathic intracranial hypertension) PAST SURGICAL HISTORY Procedure Laterality Date APPENDIX NET-EXCIS(APPENDECTOMY)SYNOPTIC 2007 GASTRIC BYPASS HX 2013 HYSTERECTOMY 2021 MIDLINE INSERTION/CONSULT 07/28/2023 MIDLINE INSERTION/CONSULT 12/14/2023 MIDLINE INSERTION/CONSULT 02/01/2024 MIDLINE INSERTION/CONSULT 03/14/2024 MIDLINE INSERTION/CONSULT 06/07/2024 MIDLINE INSERTION/CONSULT 09/15/2024 PAST SURGICAL HISTORY OF 2019 collar bone fracture (hardware placement and removal) PAST SURGICAL HISTORY OF lumbar punctures (142) PAST SURGICAL HISTORY OF 02/2023 brain angiogram PAST SURGICAL HISTORY OF 2009 CASINO BANKER Shunt - removed in 2009 due to infection REMOVAL GALLBLADDER 2015 TONSILLECTOMY HX 2006 FAMILY HISTORY Problem Relation Age of Onset COPD Mother Diabetes Father Ischemic Heart Disease Father Stroke Father Skin Cancer Father Difficulty with anesthesia No Family History Anesthesia Problems No Family History Social History Tobacco Use Smoking status: Never Passive exposure: Never Smokeless tobacco: Never Substance Use Topics Alcohol use: Not Currently Drug use: Yes Frequency: 7.0 times per week Comment: medical marijuana-vaping last used yesterday. Prior to Admission medications as of 12/07/24 5123 Medication Sig Last Dose Taking SEMAGLUTIDE SUBCUTANEOUS Inject subcutaneously. Yes omeprazole (PRILOSEC) 20 mg capsule Take 1 capsule by mouth once daily. Yes traMADol (ULTRAM) 50 mg tablet Take 1 tablet by mouth twice daily as needed for pain. Yes cyanocobalamin (VITAMIN B-12) 1,000 mcg tab Take 1 tablet by mouth once daily. Yes lacosamide (VIMPAT) 200 mg Take 1 tablet by mouth twice daily. Yes ARIPiprazole (ABILIFY) 10 mg tablet Take 10 mg by mouth once daily. Yes DULoxetine (CYMBALTA) 60 mg capsule duloxetine 60 mg capsule,delayed release TAKE 1 CAPSULE BY MOUTH TWICE DAILY Yes Calcium Citrate 250 mg calcium tab Take 1 tablet by mouth once daily. Yes lidocaine, PF, (XYLOCAINE) 10 mg/mL (1 %) soln injection 1-10 mL by INTRADERMAL route as needed. For use during PICC/Midline Insertion ONLY. No medication comments found. ALLERGIES Allergen Reactions Nsaids (Non-Steroid* GI Upset, Contraindication-Medical Surgical Because of gastric bypass Cavanaugh Pepper Rash Nortriptyline Other: See Comments Tremors Gabapentin Mental Status Change, Other: See Comments Tremors Penicillins Hives, Rash Received IV cefazolin at [facility] in 2018 and 2020 prior to procedures Received IV cefazolin at [facility] in 2018 and 2020 prior to procedures Objective PHYSICAL EXAM: VITALS: Resp 18 Ht 5' 4 (1.63m) Wt 245 lb (111.1kg) BMI 42.03 kg/(m^2). VIDEO EXAM: (if completed, performed via video enabled technology) GENERAL: alert and appropriate, in no distress, well-hydrated, well nourished, and happy, smiling, interactive SKIN: no rash noted OROPHARYNX: moist mucus membranes NECK: full ROM, no cervical LNs noted RESPIRATORY: breathing non-labored CHEST: equal chest rise with normal respiratory effort HEART: 60 bpm palpated by patient, No JVD, cyanosis or edema noted ABDOMEN: soft and non-tender NEUROLOGIC: no obvious deficit Diagnostic tests reviewed for today's visit: Lab Value Units Date High Low HB 13.0 g/dL 08/15/2024 15.5 11.5 HCT 38.9 % 08/15/2024 46.0 36.0 WBC 5.92 k/uL 08/15/2024 11.00 3.70 PLT 195 k/uL 08/15/2024 400 150 EKG Procedure Date : Oct 10 2023 04:05:35 Edit Date : Oct 11 2023 08:14:38 Diagnosis: NORMAL SINUS RHYTHM CANNOT EXCLUDE ANTERIOR MYOCARDIAL INFARCTION , AGE UNDETERMINED ABNORMAL ECG Instructions Given to Patient: Instructions located in the after visit summary. Patient given verbal and written preop instructions and voices comprehension and compliance. SIGNATURE: Cyndi Villasenor APRN.CNP PATIENT NAME: Lexis Nguyen DATE: 12/07/2024 [facility]Prom[facility] Instructions* Patient Instructions* Cyndi Villasenor APRN.CNP - 12/07/2024 7:24 AM EST Images from the original note were not included. [facility] PATIENT PREOPERATIVE INSTRUCTIONS Your physician scheduled you for your procedure at this surgery center: [facility]: [phone] -- [address] [address]. Please read below carefully for your personalized instructions. Arrival Time for Surgery: - The Surgery Center or hospital where you are having surgery will call the afternoon before surgery (or Wednesday for Wednesday surgery) with a scheduled arrival time. - If you have not heard by 4 pm, please contact the surgery center above. Please be aware that emergency situations arise, which may delay or change your surgical time. If this happens, we will notify you as soon as possible and regret any inconvenience. Dietary Restrictions: - No solid food after midnight. - You may have 12 ounces of clear liquids (water, clear juices such as apple juice or gatorade, carbonated beverages, clear tea, black coffee, jello) until 2 hours before scheduled arrival at facility. No milk or cream No pulp juices Medications: Unless instructed differently below, stay on all of your medications until your surgery. Approved medications to take the morning of surgery with a sip of water: Duloxetine (Cymbalta), Lacosamide (Vimpat), Omeprazole (PRILOSEC), Tramadol Preoperative Instructions for Patient's with Diabetes Mellitus/ Prediabetes Oral/ Injectable Medication Instructions - Semaglutide - please HOLD 7 DAYS PRIOR TO SURGERY. Do not take after 12/17 in preparation for procedure 12/25 These medicines can cause food to remain in your stomach for a very long time and increase the risks from surgery and anesthesia. Not stopping the medication for a long enough time may result in yoursurgery being rescheduled. If you start any new medications after today's visit, please contact the surgeon's office. Blood Thinning Medications: - Stop NSAIDS (Ibuprofen, Advil, Aleve, Motrin, Celebrex, Mobic, etc.) 7 days before surgery, as directed by your surgeon. - Stop Aspirin 7 days before surgery, as directed by your surgeon. - Stop ALL herbal and dietary supplements 7 days before surgery. - You may take Tylenol (Acetaminophen) or any of your pain medications that do not contain aspirin or NSAIDS as needed. Important Reminders: - If you use CPAP/BIPAP, bring the machine with you to the surgery center. - If you are prescribed inhalers for breathing, continue using them. - Candy, mints, and tobacco products are NOT permitted the morning of surgery. - Hearing aids, dentures and glasses may be worn the morning of surgery. - NO jewelry, body piercings, makeup, hairpins or contacts are to be worn the day of surgery. If you develop symptoms such as a fever, cold, or flu, or have other changes to your health within TWO DAYS of scheduled surgery or the morning of surgery, please contact the surgery center above. Personal Belongings: -Please have photo ID and insurance cards. -If you do not have a copy of advance directives on file with us, please bring a copy with you on the day of surgery. - Leave ALL valuables and money at home or with family members. For Outpatient Procedures: - YOU MUST HAVE A RESPONSIBLE ASSAULT AMPHIBIOUS VEHICLE CREWMAN TAKE YOU HOME. 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 - We recommend that a responsible person stays with you overnight to take care of you. - You cannot stay in a hotel alone after outpatient surgery. You will not be permitted to have yoursurgery, if you do not have someone to take care of you. If you already have an Advance Directive, please fax a copy to [phone] or email to for it to be added to your chart. If you do not have an Advance Directive, you can find the appropriate form and more information at [email or web address]. We recommend that youcomplete the Advance Directive form found on the website and bring it with you the day of your surgery. It can be witnessed and scanned into your chart that day. documented in this encounterProm[facility] Note* Addendum Note - Stefano Chacon MD - 11/27/2024 1:48 PM ESTAddended by: STEFANO CHACON on: 11/27/2024 01:48 PM Modules accepted: Orders [facility]01-06-2025 Miscellaneous Notes* Addendum Note - Stefano Chacon MD - 11/27/2024 1:48 PM ESTAddended by: STEFANO CHACON on: 11/27/2024 01:48 PM Modules accepted: Orders documented in this encounterPromedica [facility]12-06-2024 Instructions* Patient Instructions* Sarah Murray APRN.CNP - 10/27/2024 8:26 AM EST PATIENT PREOPERATIVE INSTRUCTIONS Janice Arroyo PA-C has scheduled you for your procedure at this surgery center: [facility]: [phone] -- [address] [address]. Arrival Time for Surgery: -You will receive a call from [facility] the afternoon before surgery after 2:30 pm(or Wednesday for Wednesday surgery) for a scheduled arrival time. - If you have not heard by 4 pm, please contact [facility] at [phone]. Please be aware that emergency situations arise, which may delay or change your surgical time. If this happens, we will notify you as soon as possible and regret any inconvenience. Please read below carefully for your personalized instructions. Dietary Restrictions: - No solid food after midnight. - You may have 12 ounces of clear liquids (water, clear juices such as apple juice or gatorade, carbonated beverages, clear tea, black coffee, jello) until 2 hours before scheduled arrival at facility. - Do not drink any alcohol after midnight the night before your surgery. Medications: Unless instructed differently below, stay on all of your medications until your surgery. Approved medications to take the morning of surgery with a sip of water: aripiprazole (Aricept), duloxetine (Cymbalta), lacosamide (Vimpat), omeprazole (PRILOSEC) - Please continue your current pain medications. Do NOT take semaglutide after 11/12/2024. If you are currently using a [id number] injectable or oral medication for diabetes or weight loss such as Dulaglutide (Trulicity), Exenatide (Byetta, Bydureon), Liraglutide (Victoza, Saxenda), Semaglutide (Ozempic, Wegovy, Rybelsus), or Tirzepatide (Mounjaro), the medicine should be stopped at least 7 days before surgery. These medicines can cause food to remain in your stomach for a very longtime and increase the risks from surgery and anesthesia. Not stopping the medication for a long enough time may result in your surgery being rescheduled. If you start any new medications after today's visit, please contact the surgeon's office. Blood Thinning Medications: - Stop NSAIDS (Ibuprofen, Advil, Aleve, Motrin, Celebrex, Mobic, etc.) 7 days before surgery, as directed by your surgeon. - Stop Aspirin 7 days before surgery, as directed by your surgeon. - Stop herbals and dietary supplements 14 days before surgery. - You may take Tylenol (Acetaminophen) or any of your pain medications that do not contain aspirin or NSAIDS as needed. Important Reminders: - If you use CPAP/BIPAP, bring the machine with you to the surgery center. - If you are prescribed inhalers for breathing, continue using them. - Candy, mints, and tobacco products are NOT permitted the morning of surgery. - Hearing aids, dentures and glasses may be worn the morning of surgery. - NO jewelry, body piercings, makeup, hairpins or contacts are to be worn the day of surgery. If you develop symptoms such as a fever, cold, or flu, or have other changes to your health within TWO DAYS of scheduled surgery or the morning of surgery, please contact the surgery center above. Personal Belongings: -Please have photo ID and insurance cards. -If you do not have a copy of advance directives on file with us, please bring a copy with you on the day of surgery. - Leave ALL valuables and money at home or with family members. For Outpatient Procedures: - YOU MUST HAVE A RESPONSIBLE ASSAULT AMPHIBIOUS VEHICLE CREWMAN TAKE YOU HOME. 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 - We recommend that a responsible person stays with you overnight to take care of you. - You cannot stay in a hotel alone after outpatient surgery. You will not be permitted to have yoursurgery, if you do not have someone to take care of you. If you already have an Advance Directive, please fax a copy to [phone] or email to for it to be added to your chart. If you do not have an Advance Directive, you can find the appropriate form and more information at [email or web address]. We recommend that youcomplete the Advance Directive form found on the website and bring it with you the day of your surgery. It can be witnessed and scanned into your chart that day. Sarah Murray APRN.FER [facility] History and physical note * Sarah Murray APRN.CNP - 10/27/2024 8:00 AM EST HISTORY AND PHYSICAL EXAMINATION SERVICE DATE: 10/27/2024 SERVICE TIME: 8:28 AM PRIMARY CARE PHYSICIAN: Fede Davis MD This is a virtual visit using archify video visit. It required patient-provider interaction for themedical decision making as documented below. REASON FOR VISIT: Lexis Nguyen is a 39 year old female who is scheduled for Procedure(s): SPINAL PUNCTURE THERAPEUTIC, DRAIN CSF VIA NEEDLE OR CATH (Pending) at the request of Dr. Janice Arroyo for consultation. My final recommendation will be communicated back to the requesting physician by way of shared medical record or letter. Subjective The patient has the following: ACTIVE PROBLEM LIST Anxiety Epilepsy (Hcc) Gastroesophageal Reflux Disease Major Depression, Single Episode Morbid Obesity (Hcc) Iih (Idiopathic Intracranial Hypertension) Difficult Intravenous Access Morbid Obesity With Bmi of 45.0-49.9, Adult (Hcc) Idiopathic Intracranial Hypertension Headaches S/P Gastric Bypass Medical Marijuana Use Exhausted Vascular Access Jack (Obstructive Sleep Apnea) COVID-19 Immunization Status Covid-19 Vaccine (Series Information) Completed 09/09/2024 Imm Admin: COVID-19 vaccine, age 12+ yr (PFIZER-BIONTECH COMIRNATY) 10/25/2023 Imm Admin: COVID-19 vaccine, age 12+ yr, 2022- season (MODERNA) 09/01/2022 Imm Admin: COVID-19 vaccine, age 12+ yr, bivalent (Traxian-BIONTECH) Only the first 3 history entries have been loaded, but more history exists. CHIEF COMPLAINT: Anesthesia consult HPI: This 39 year old female with a history of IIH (idiopathic intracranial hypertension) is scheduled for the above procedure and presents to the [facility] for pre-operative examination. Patient reports that she has had over 100 lumbar punctures, and now has requested TABBY due to severe pain. Notes significant pain, visual disturbance and whooshing in her ears. Having LPs every 5 weeks. Patient has been identified by name and date of : Yes This is a virtual visit using [employer] Zoom Video Visit. It require patient- provider interaction forthe medical decision making as documented below. I have communicated my name and active licensure. The patient's identity and physical location were verified at the time of this visit. Either the patient or their legal patient accounting representative has been informed of the risks and benefits of and alternatives to treatment through a remote evaluation and consents to proceed with the evaluation remotely. Reason for contact: [facility] visit Accompanied by: Self This is a virtual visit. The visit was conducted using [employer] video visit. It required patient-provider interaction for the medical decision making as documented below. I have communicated my name and active licensure. The patient's identity and physical location wereverified at the time of this visit. Either the patient or their legal patient accounting representative has been informed of the risks and benefits of and alternatives to treatment through a remote evaluation and consents to proceed with the evaluation remotely. REVIEW OF SYSTEMS: General: No weight loss, malaise or fevers. Neurological: +IIH Positive for: seizures. Negative for: cerebral palsy, RN MANAGED CARE tumor, delirium, dementia, headaches, hemiplegia, impaired sensorium, multiple sclerosis, paraplegia, Parkinson's disease, peripheral neuropathy, quadriplegia, TIA and strokes. Respiratory: Positive for: obstructive sleep apnea. Negative for: asthma, bronchitis, COPD, current cough, bronchodilator used daily for the last 3 months, dyspnea, home oxygen, orthopnea, pneumonia within 6 weeks, tobacco use and URI < 2 weeks. Cardiovascular: Negative for: abdominal aortic aneurysm, AICD/PPM, angina, anticoagulation therapy, arrhythmia, atrial fibrillation, CAD, chest pain, CHF, congenital heart defect, DVT/PE, hyperlipidemia, hypertension, recent [place], murmur/valvular heart disease, PTCA, PVD, open heart surgery and valve surgery. GI: +h/o gastric bypass Positive for: GERD and nausea (D/t GLP-1) Negative for: abdominal pain, ascites, colon cancer, dysphagia, diverticulitis, esophageal stricture, esophageal varices <6 months, GI bleed <30 days, heartburn, hepatitis, irritable bowel syndrome, inflammatory bowel disease, liver disease, pancreatitis, history of polyps, PUD, rectal cancer, vomiting and ETOH >2 drinks/day. : Negative for: BPH, decreased stream, on dialysis, dysuria, flank pain, frequent urination, hematuria, hesitancy, urinary incontinence, indwelling catheter, nephrolithiasis, nocturia >1 time per night, renal failure, self catheterization, urgency and urinary tract infection. 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 Endocrine: Negative for: diabetes mellitus, diabetic nephropathy, diabetic neuropathy, diabetic retinopathy, hyperthyroidism, hypothyroidism, hyperparathyroidism, hyperhidrosis, polydipsia, polyphagia and steroid for chronic problem. Hematology: Negative for: anemia, bruises/bleeds easily, factor V Leiden, hemophilia, thrombocytopenia, von Willebrand disease, transfusion of at least 4 units within 72 hours prior to surgery and chronic anti-coagulation/platelet meds. Oncology: Negative for: CA metastasis, chemo within 30 days, disseminated cancer and radiotherapy within 90 days. Psych: Positive for: anxiety, depression and Marijuana Use. Negative for: ADD, ADHD, bipolar disorder and drug dependency. Product type: Concentrate. Route of administration: Inhalation. Frequency: Daily. Musculoskeletal: Positive for: back pain. Negative for: joint pain, swelling and rheumatoid arthritis. Skin: Negative for lesions, rash and itching. Implanted Devices: No implanted devices. PAST MEDICAL HISTORY Diagnosis Date Difficult intravenous access 02/16/2023 Epilepsy (HCC) IIH (idiopathic intracranial hypertension) PAST SURGICAL HISTORY Procedure Laterality Date APPENDIX NET-EXCIS(APPENDECTOMY)SYNOPTIC 2007 GASTRIC BYPASS HX 2013 HYSTERECTOMY 2021 MIDLINE INSERTION/CONSULT 07/28/2023 MIDLINE INSERTION/CONSULT 12/14/2023 MIDLINE INSERTION/CONSULT 02/01/2024 MIDLINE INSERTION/CONSULT 03/14/2024 MIDLINE INSERTION/CONSULT 06/07/2024 MIDLINE INSERTION/CONSULT 09/15/2024 PAST SURGICAL HISTORY OF 2019 collar bone fracture (hardware placement and removal) PAST SURGICAL HISTORY OF lumbar punctures (142) PAST SURGICAL HISTORY OF 02/2023 brain angiogram PAST SURGICAL HISTORY OF 2009 CASINO BANKER Shunt - removed in 2009 due to infection REMOVAL GALLBLADDER 2015 TONSILLECTOMY HX 2006 FAMILY HISTORY Problem Relation Age of Onset COPD Mother Diabetes Father Ischemic Heart Disease Father Stroke Father Skin Cancer Father Difficulty with anesthesia No Family History Anesthesia Problems No Family History Social History Tobacco Use Smoking status: Never Passive exposure: Never Smokeless tobacco: Never Substance Use Topics Alcohol use: Not Currently Drug use: Yes Frequency: 7.0 times per week Comment: medical marijuana-vaping last used yesterday. Prior to Admission medications as of 10/27/24 0811 Medication Sig Last Dose Taking SEMAGLUTIDE SUBCUTANEOUS Inject subcutaneously. Taking Yes omeprazole (PRILOSEC) 20 mg capsule Take 1 capsule by mouth once daily. Taking Yes cyanocobalamin (VITAMIN B-12) 1,000 mcg tab Take 1 tablet by mouth once daily. Taking Yes lacosamide (VIMPAT) 200 mg Take 1 tablet by mouth twice daily. Taking Yes ARIPiprazole (ABILIFY) 10 mg tablet Take 10 mg by mouth once daily. Taking Yes DULoxetine (CYMBALTA) 60 mg capsule duloxetine 60 mg capsule,delayed release TAKE 1 CAPSULE BY MOUTH TWICE DAILY Taking Yes Calcium Citrate 250 mg calcium tab Take 1 tablet by mouth once daily. Taking Yes lidocaine, PF, (XYLOCAINE) 10 mg/mL (1 %) soln injection 1-10 mL by INTRADERMAL route as needed. For use during PICC/Midline Insertion ONLY. Unknown traMADol (ULTRAM) 50 mg tablet Take 1 tablet by mouth twice daily as needed for pain. No medication comments found. ALLERGIES Allergen Reactions Nsaids (Non-Steroid* GI Upset, Contraindication-Medical Surgical Because of gastric bypass Cavanaugh Pepper Rash Nortriptyline Other: See Comments Tremors Gabapentin Mental Status Change, Other: See Comments Tremors Penicillins Hives, Rash Received IV cefazolin at [facility] in 2018 and 2020 prior to procedures Received IV cefazolin at [facility] in 2018 and 2020 prior to procedures Objective PHYSICAL EXAM: (if completed, exam performed via video enabled technology) General: alert and oriented and healthy appearance. Pertinent negatives noted - not distressed. Skin: normal color, no rash or lesions. HEENT: Head is normocephalic, no abnormality or lesion noted. Eyes show no injection and visual acuity is grossly normal Ears noted grossly normal hearing Nose exam notes external nose is normal without rhinorrhea Oropharynx exam notes moist mucous membranes with no noted tonsillar hypertrophy, erythremia or edema Uvula is midline.. Cardiovascular: Regular rate and rhythm reported per patient. . Respiratory: normal breath sounds, no wheezes or crackles. Equal chest rise with normal respiratoryeffort. . Abdomen: soft. Pertinent negatives noted - not distended and not tender. No pain per palpation per patient. . Extremities: no deformity, no edema or tenderness, no joint swelling or clubbing. Neurological: normal cognition and motor skills. Gait stated to be normal per patient. . PAIN ASSESSMENT: VITALS: Pulse [Patient unable to assess[ Temp [Denies fever[ Ht 5' 4 (1.63m) Wt 259 lb (117.5kg) BMI 44.44 kg/(m^2). Diagnostic tests reviewed for today's visit: Lab Value Units Date High Low HB 13.0 g/dL 08/15/2024 15.5 11.5 HCT 38.9 % 08/15/2024 46.0 36.0 WBC 5.92 k/uL 08/15/2024 11.00 3.70 PLT 195 k/uL 08/15/2024 400 150 NA No results within date range. K No results within date range. GLUC No results within date range. BUN No results within date range. CREAT No results within date range. PTSEC No results within date range. INR No results within date range. APTT No results within date range. ALT No results within date range. AST No results within date range. TBILI No results within date range. TSH No results within date range. Lab Value Units Date High Low HCGQT No results within date range. UHCG No results within date range. HCG, BODY* No results within date range. Lab Value Units Date High Low ABORHD No results within date range. ABSCREEN No results within date range. Hemoglobin A1C (%) Date Value 03/22/2023 5.1 No results found for this or any previous visit (from the past 8760 hour(s)). No results found for this or any previous visit (from the past 34732 hour(s)). Most recent EKG 10/11/2023: NORMAL SINUS RHYTHM CANNOT EXCLUDE ANTERIOR MYOCARDIAL INFARCTION , AGE UNDETERMINED ABNORMAL ECG Assessment Patient has the following medical conditions which may affect david-operative course: Epilepsy (HCC) Assessment: Following with Dr. Thompson with [facility], EMILIA 4 months ago. Last seizure 18 months ago, well controlled on rx and medical marijuana. Medical marijuana use Assessment: Daily vape user. IIH (idiopathic intracranial hypertension) Assessment: see HPI Difficult intravenous access Assessment: Per patient, requires US for PIV. JACK (obstructive sleep apnea) Assessment: Patient denies diagnosis, reports PSG 20 years ago was negative. Gastroesophageal reflux disease Assessment: Symptoms stable on rx. S/P gastric bypass Assessment: 2013 Major depression, single episode Assessment: Symptoms stable on rx. Anxiety Assessment: Symptoms stable on rx. Morbid obesity (HCC) Assessment: Body mass index is 44.46 kg/m . Higgins Activity Status Index: METS: Climb a flight of stairs or walk up a hill (5.50 METs) DASI Score: 5.5 Patient denies any chest pain or undue shortness of breath with the above physical activity. Clinical Frailty Scale: 3. Well, with treated comorbid disease STOP-Bang Score: BMI greater than 35 kg/m^2 Denies snoring loudly Denies feeling tired, fatigued, or sleepy during the daytime Has not been observed to stop breathing or choking/gasping during sleep Denies having high blood pressure Patient 50 years old or younger Does not have a large neck Non-male patient STOP-Bang Score: 1 [id number] Score: Age: <65 Sex: female CHF history: No Hypertension history: No Stroke/TIA/thromboembolism history: No Vascular disease history: No Diabetes history: No [id number] Score: 1 ANESTHESIA FINDINGS: Intubation History: No history of difficult intubation. No abnormal airway history Significant Anesthesia Considerations: potential difficult IV/vein access Airway History: No history of difficult airway No abnormal airway history I - PHYSICAL EVALUATION AIRWAY Patient intubated: No. Tracheostomy tube not present Mallampati: I. TM distance: >3 FB. Neck ROM: full ROM without neurological symptoms. Mouth opening: adequate. Short neck: no. Thick neck: no Rangel present: no Lip Bite Test: I Microretrognathia/Micronagthia/Recessed Chin: No DENTAL Dental findings: teeth intact. Additional comments: +caps/crowns. II - ANESTHESIA PLAN Anesthetic Plan: other Anesthetic plan additional comments: *[facility] - anesthesia choice. Beta Poncho Monitoring Plan Post Procedure Analgesic Plan Prepared for Surgery: optimally prepared for surgery. CONSULTS: Patient does not require consults for optimization at this time Planned Anesthetic: other anesthesia choice The Following Tests/Procedures Have Been Initiated: No orders of the defined types were placed in this encounter. Instructions Given to Patient: Instructions located in the after visit summary. Patient given verbal and written preop instructions and voices comprehension and compliance. SIGNATURE: Sarah Murray APRN.CNP PATIENT NAME: Lexis Nguyen DATE: 10/27/2024 TIME: 1:11 PM P[facility]ER[facility]CON[facility]CT [facility] History and physical note* Sarah Murray APRN.CNP - 10/27/2024 8:00 AM EST HISTORY AND PHYSICAL EXAMINATION SERVICE DATE: 10/27/2024 SERVICE TIME: 8:28 AM PRIMARY CARE PHYSICIAN: Fede Davis MD This is a virtual visit using archify video visit. It required patient-provider interaction for themedical decision making as documented below. REASON FOR VISIT: Lexis Nguyen is a 39 year old female who is scheduled for Procedure(s): SPINAL PUNCTURE THERAPEUTIC, DRAIN CSF VIA NEEDLE OR CATH (Pending) at the request of Dr. Janice Arroyo for consultation. My final recommendation will be communicated back to the requesting physician by way of shared medical record or letter. Subjective The patient has the following: ACTIVE PROBLEM LIST Anxiety Epilepsy (Hcc) Gastroesophageal Reflux Disease Major Depression, Single Episode Morbid Obesity (Hcc) Iih (Idiopathic Intracranial Hypertension) Difficult Intravenous Access Morbid Obesity With Bmi of 45.0-49.9, Adult (Hcc) Idiopathic Intracranial Hypertension Headaches S/P Gastric Bypass Medical Marijuana Use Exhausted Vascular Access Jack (Obstructive Sleep Apnea) COVID-19 Immunization Status Covid-19 Vaccine (Series Information) Completed 09/09/2024 Imm Admin: COVID-19 vaccine, age 12+ yr (PFIZER-BIONTECH COMIRNATY) 10/25/2023 Imm Admin: COVID-19 vaccine, age 12+ yr, 2022- season (MODERNA) 09/01/2022 Imm Admin: COVID-19 vaccine, age 12+ yr, bivalent (PFIZER-BIONTECH) Only the first 3 history entries have been loaded, but more history exists. CHIEF COMPLAINT: Anesthesia consult HPI: This 39 year old female with a history of IIH (idiopathic intracranial hypertension) is scheduled for the above procedure and presents to the [facility] for pre-operative examination. Patient reports that she has had over 100 lumbar punctures, and now has requested TABBY due to severe pain. Notes significant pain, visual disturbance and whooshing in her ears. Having LPs every 5 weeks. Patient has been identified by name and date of : Yes This is a virtual visit using [employer] Video Visit. It require patient- provider interaction forthe medical decision making as documented below. I have communicated my name and active licensure. The patient's identity and physical location were verified at the time of this visit. Either the patient or their legal patient accounting representative has been informed of the risks and benefits of and alternatives to treatment through a remote evaluation and consents to proceed with the evaluation remotely. Reason for contact: [facility] visit Accompanied by: Self This is a virtual visit. The visit was conducted using archify video visit. It required patient-provider interaction for the medical decision making as documented below. I have communicated my name and active licensure. The patient's identity and physical location wereverified at the time of this visit. Either the patient or their legal patient accounting representative has been informed of the risks and benefits of and alternatives to treatment through a remote evaluation and consents to proceed with the evaluation remotely. REVIEW OF SYSTEMS: General: No weight loss, malaise or fevers. Neurological: +IIH Positive for: seizures. Negative for: cerebral palsy, RN MANAGED CARE tumor, delirium, dementia, headaches, hemiplegia, impaired sensorium, multiple sclerosis, paraplegia, Parkinson's disease, peripheral neuropathy, quadriplegia, TIA and strokes. Respiratory: Positive for: obstructive sleep apnea. Negative for: asthma, bronchitis, COPD, current cough, bronchodilator used daily for the last 3 months, dyspnea, home oxygen, orthopnea, pneumonia within 6 weeks, tobacco use and URI < 2 weeks. Cardiovascular: Negative for: abdominal aortic aneurysm, AICD/PPM, angina, anticoagulation therapy, arrhythmia, atrial fibrillation, CAD, chest pain, CHF, congenital heart defect, DVT/PE, hyperlipidemia, hypertension, recent [place], murmur/valvular heart disease, PTCA, PVD, open heart surgery and valve surgery. GI: +h/o gastric bypass Positive for: GERD and nausea (D/t GLP-1) Negative for: abdominal pain, ascites, colon cancer, dysphagia, diverticulitis, esophageal stricture, esophageal varices <6 months, GI bleed <30 days, heartburn, hepatitis, irritable bowel syndrome, inflammatory bowel disease, liver disease, pancreatitis, history of polyps, PUD, rectal cancer, vomiting and ETOH >2 drinks/day. : Negative for: BPH, decreased stream, on dialysis, dysuria, flank pain, frequent urination, hematuria, hesitancy, urinary incontinence, indwelling catheter, nephrolithiasis, nocturia >1 time per night, renal failure, self catheterization, urgency and urinary tract infection. 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 Endocrine: Negative for: diabetes mellitus, diabetic nephropathy, diabetic neuropathy, diabetic retinopathy, hyperthyroidism, hypothyroidism, hyperparathyroidism, hyperhidrosis, polydipsia, polyphagia and steroid for chronic problem. Hematology: Negative for: anemia, bruises/bleeds easily, factor V Leiden, hemophilia, thrombocytopenia, von Willebrand disease, transfusion of at least 4 units within 72 hours prior to surgery and chronic anti-coagulation/platelet meds. Oncology: Negative for: CA metastasis, chemo within 30 days, disseminated cancer and radiotherapy within 90 days. Psych: Positive for: anxiety, depression and Marijuana Use. Negative for: ADD, ADHD, bipolar disorder and drug dependency. Product type: Concentrate. Route of administration: Inhalation. Frequency: Daily. Musculoskeletal: Positive for: back pain. Negative for: joint pain, swelling and rheumatoid arthritis. Skin: Negative for lesions, rash and itching. Implanted Devices: No implanted devices. PAST MEDICAL HISTORY Diagnosis Date Difficult intravenous access 02/16/2023 Epilepsy (HCC) IIH (idiopathic intracranial hypertension) PAST SURGICAL HISTORY Procedure Laterality Date APPENDIX NET-EXCIS(APPENDECTOMY)SYNOPTIC 2007 GASTRIC BYPASS HX 2013 HYSTERECTOMY 2021 MIDLINE INSERTION/CONSULT 07/28/2023 MIDLINE INSERTION/CONSULT 12/14/2023 MIDLINE INSERTION/CONSULT 02/01/2024 MIDLINE INSERTION/CONSULT 03/14/2024 MIDLINE INSERTION/CONSULT 06/07/2024 MIDLINE INSERTION/CONSULT 09/15/2024 PAST SURGICAL HISTORY OF 2019 collar bone fracture (hardware placement and removal) PAST SURGICAL HISTORY OF lumbar punctures (142) PAST SURGICAL HISTORY OF 02/2023 brain angiogram PAST SURGICAL HISTORY OF 2009 CASINO BANKER Shunt - removed in 2009 due to infection REMOVAL GALLBLADDER 2015 TONSILLECTOMY HX 2006 FAMILY HISTORY Problem Relation Age of Onset COPD Mother Diabetes Father Ischemic Heart Disease Father Stroke Father Skin Cancer Father Difficulty with anesthesia No Family History Anesthesia Problems No Family History Social History Tobacco Use Smoking status: Never Passive exposure: Never Smokeless tobacco: Never Substance Use Topics Alcohol use: Not Currently Drug use: Yes Frequency: 7.0 times per week Comment: medical marijuana-vaping last used yesterday. Prior to Admission medications as of 10/27/24 0811 Medication Sig Last Dose Taking SEMAGLUTIDE SUBCUTANEOUS Inject subcutaneously. Taking Yes omeprazole (PRILOSEC) 20 mg capsule Take 1 capsule by mouth once daily. Taking Yes cyanocobalamin (VITAMIN B-12) 1,000 mcg tab Take 1 tablet by mouth once daily. Taking Yes lacosamide (VIMPAT) 200 mg Take 1 tablet by mouth twice daily. Taking Yes ARIPiprazole (ABILIFY) 10 mg tablet Take 10 mg by mouth once daily. Taking Yes DULoxetine (CYMBALTA) 60 mg capsule duloxetine 60 mg capsule,delayed release TAKE 1 CAPSULE BY MOUTH TWICE DAILY Taking Yes Calcium Citrate 250 mg calcium tab Take 1 tablet by mouth once daily. Taking Yes lidocaine, PF, (XYLOCAINE) 10 mg/mL (1 %) soln injection 1-10 mL by INTRADERMAL route as needed. For use during PICC/Midline Insertion ONLY. Unknown traMADol (ULTRAM) 50 mg tablet Take 1 tablet by mouth twice daily as needed for pain. No medication comments found. ALLERGIES Allergen Reactions Nsaids (Non-Steroid* GI Upset, Contraindication-Medical Surgical Because of gastric bypass Cavanaugh Pepper Rash Nortriptyline Other: See Comments Tremors Gabapentin Mental Status Change, Other: See Comments Tremors Penicillins Hives, Rash Received IV cefazolin at [facility] in 2018 and 2020 prior to procedures Received IV cefazolin at [facility] in 2018 and 2020 prior to procedures Objective PHYSICAL EXAM: (if completed, exam performed via video enabled technology) General: alert and oriented and healthy appearance. Pertinent negatives noted - not distressed. Skin: normal color, no rash or lesions. HEENT: Head is normocephalic, no abnormality or lesion noted. Eyes show no injection and visual acuity is grossly normal Ears noted grossly normal hearing Nose exam notes external nose is normal without rhinorrhea Oropharynx exam notes moist mucous membranes with no noted tonsillar hypertrophy, erythremia or edema Uvula is midline.. Cardiovascular: Regular rate and rhythm reported per patient. . Respiratory: normal breath sounds, no wheezes or crackles. Equal chest rise with normal respiratoryeffort. . Abdomen: soft. Pertinent negatives noted - not distended and not tender. No pain per palpation per patient. . Extremities: no deformity, no edema or tenderness, no joint swelling or clubbing. Neurological: normal cognition and motor skills. Gait stated to be normal per patient. . PAIN ASSESSMENT: VITALS: Pulse [Patient unable to assess[ Temp [Denies fever[ Ht 5' 4 (1.63m) Wt 259 lb (117.5kg) BMI 44.44 kg/(m^2). Diagnostic tests reviewed for today's visit: Lab Value Units Date High Low HB 13.0 g/dL 08/15/2024 15.5 11.5 HCT 38.9 % 08/15/2024 46.0 36.0 WBC 5.92 k/uL 08/15/2024 11.00 3.70 PLT 195 k/uL 08/15/2024 400 150 NA No results within date range. K No results within date range. GLUC No results within date range. BUN No results within date range. CREAT No results within date range. PTSEC No results within date range. INR No results within date range. APTT No results within date range. ALT No results within date range. AST No results within date range. TBILI No results within date range. TSH No results within date range. Lab Value Units Date High Low HCGQT No results within date range. UHCG No results within date range. HCG, BODY* No results within date range. Lab Value Units Date High Low ABORHD No results within date range. ABSCREEN No results within date range. Hemoglobin A1C (%) Date Value 03/22/2023 5.1 No results found for this or any previous visit (from the past 8760 hour(s)). No results found for this or any previous visit (from the past 13265 hour(s)). Most recent EKG 10/11/2023: NORMAL SINUS RHYTHM CANNOT EXCLUDE ANTERIOR MYOCARDIAL INFARCTION , AGE UNDETERMINED ABNORMAL ECG Assessment Patient has the following medical conditions which may affect david-operative course: Epilepsy (HCC) Assessment: Following with Dr. Thompson with [facility], EMILIA 4 months ago. Last seizure 18 months ago, well controlled on rx and medical marijuana. Medical marijuana use Assessment: Daily vape user. IIH (idiopathic intracranial hypertension) Assessment: see HPI Difficult intravenous access Assessment: Per patient, requires US for PIV. JACK (obstructive sleep apnea) Assessment: Patient denies diagnosis, reports PSG 20 years ago was negative. Gastroesophageal reflux disease Assessment: Symptoms stable on rx. S/P gastric bypass Assessment: 2013 Major depression, single episode Assessment: Symptoms stable on rx. Anxiety Assessment: Symptoms stable on rx. Morbid obesity (HCC) Assessment: Body mass index is 44.46 kg/m . Higgins Activity Status Index: METS: Climb a flight of stairs or walk up a hill (5.50 METs) DASI Score: 5.5 Patient denies any chest pain or undue shortness of breath with the above physical activity. Clinical Frailty Scale: 3. Well, with treated comorbid disease STOP-Bang Score: BMI greater than 35 kg/m^2 Denies snoring loudly Denies feeling tired, fatigued, or sleepy during the daytime Has not been observed to stop breathing or choking/gasping during sleep Denies having high blood pressure Patient 50 years old or younger Does not have a large neck Non-male patient STOP-Bang Score: 1 [id number] Score: Age: <65 Sex: female CHF history: No Hypertension history: No Stroke/TIA/thromboembolism history: No Vascular disease history: No Diabetes history: No [id number] Score: 1 ANESTHESIA FINDINGS: Intubation History: No history of difficult intubation. No abnormal airway history Significant Anesthesia Considerations: potential difficult IV/vein access Airway History: No history of difficult airway No abnormal airway history I - PHYSICAL EVALUATION AIRWAY Patient intubated: No. Tracheostomy tube not present Mallampati: I. TM distance: >3 FB. Neck ROM: full ROM without neurological symptoms. Mouth opening: adequate. Short neck: no. Thick neck: no Rangel present: no Lip Bite Test: I Microretrognathia/Micronagthia/Recessed Chin: No DENTAL Dental findings: teeth intact. Additional comments: +caps/crowns. II - ANESTHESIA PLAN Anesthetic Plan: other Anesthetic plan additional comments: *PACC/TCI - anesthesia choice. Beta Poncho Monitoring Plan Post Procedure Analgesic Plan Prepared for Surgery: optimally prepared for surgery. CONSULTS: Patient does not require consults for optimization at this time Planned Anesthetic: other anesthesia choice The Following Tests/Procedures Have Been Initiated: No orders of the defined types were placed in this encounter. Instructions Given to Patient: Instructions located in the after visit summary. Patient given verbal and written preop instructions and voices comprehension and compliance. SIGNATURE: Sarah Murrya APRN.CNP PATIENT NAME: Leixs Nguyen DATE: 10/27/2024 TIME: 1:11 PM PAGER/CONTACT #: [facility] Note * Telephone Encounter - Megan Hodge - 10/26/2024 12:52 PM ESTSummary: Ronak OLSON LP w TABBY Called and scheduled Lexis for 11/20 for an LP with TABBY. Gave her the number to PACC to schedulea virtual appointment.[phone] [facility]12-[facility] Miscellaneous Notes* Telephone Encounter - Megan Hodge - 10/26/2024 12:52 PM ESTSummary: [facility]el IR LP w TABBY Called and scheduled Lexis for 11/20 for an LP with TABBY. Gave her the number to PACC to schedulea virtual appointment.[phone] documented in this encounterProm[facility] Evaluation note* Diagnosis Onset Date Resolution Status Admit Date GERD (gastroesophageal reflu x disease) acute October 17, 2 024 4:12pm Constipation inactive September 4:12pm GERD (gastroesophageal reflu x disease) acute December 19 12:24pm Abdominal pain inactive December 192024 12:24pm Epigastric pain acute January 04, 2025 3:03pm GERD (gastroesophageal reflu x disease) acute January 04, 2 025 3:03pm History of Krystal-en-Y gastric bypass acute January 04, 2 025 3:03pm [facility] Work Phone: 1(749) 596-828011-13-2024 Instructions* Patient Instructions* Saima Swanson APRN.CNP - 10/04/2024 7:17 AM EST Images from the original note were not included. [facility] PATIENT PREOPERATIVE INSTRUCTIONS Janice Arroyo PA-C has scheduled you for your procedure at this surgery center: [facility]: [phone] -- [phone] [address]. Please read below carefully for your personalized instructions. Arrival Time for Surgery: - The Surgery Center or hospital where you are having surgery will call the afternoon before surgery (or Wednesday for Wednesday surgery) with a scheduled arrival time. - If you have not heard by 4 pm, please contact the surgery center above. Please be aware that emergency situations arise, which may delay or change your surgical time. If this happens, we will notify you as soon as possible and regret any inconvenience. Dietary Restrictions: - No solid food after midnight. - Medications: Unless instructed differently below, stay on all of your medications until your surgery. If you start any new medications after today's visit, please contact your surgeon. Medication to take morning of surgery: Vimpat,Cymbalta and Omeprazole Ozempic one week hold. Last dose will be 10/09/24 If you start any new medications after today's visit, please contact the surgeon's office. Blood Thinning Medications: - Stop NSAIDS (Ibuprofen, Advil, Aleve, Motrin, Celebrex, Mobic, etc.) 7 days before surgery, as directed by your surgeon. - Stop Aspirin 7 days before surgery, as directed by your surgeon. - Do NOT stop aspirin or other anticoagulants without consulting with your maintenance and repair worker or prescribing physician. - Stop herbals and dietary supplements 14 days before surgery. - You may take Tylenol (Acetaminophen) or any of your pain medications that do not contain aspirin or NSAIDS as needed. Important Reminders: - If you use CPAP/BIPAP, bring the machine with you to the surgery center. - If you are prescribed inhalers for breathing, continue using them. - Candy, mints, and tobacco products are NOT permitted the morning of surgery. - Hearing aids, dentures and glasses may be worn the morning of surgery. - NO jewelry, body piercings, makeup, hairpins or contacts are to be worn the day of surgery. If you develop symptoms such as a fever, cold, or flu, or have other changes to your health within TWO DAYS of scheduled surgery or the morning of surgery, please contact the surgery center above. Personal Belongings: -Please have photo ID and insurance cards. -If you do not have a copy of advance directives on file with us, please bring a copy with you on the day of surgery. - Leave ALL valuables and money at home or with family members. For Outpatient Procedures: - YOU MUST HAVE A RESPONSIBLE ASSAULT AMPHIBIOUS VEHICLE CREWMAN TAKE YOU HOME. 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 - We recommend that a responsible person stays with you overnight to take care of you. - You cannot stay in a hotel alone after outpatient surgery. You will not be permitted to have yoursurgery, if you do not have someone to take care of you. If you already have an Advance Directive, please fax a copy to [phone] or email to for it to be added to your chart. If you do not have an Advance Directive, you can find the appropriate form and more information at [email or web address]. We recommend that youcomplete the Advance Directive form found on the website and bring it with you the day of your surgery. It can be witnessed and scanned into your chart that day. Saima Swanson APRN.CNP documented in this encounterProm[facility] History and physical note * Saima Swanson APRN.CNP - 10/04/2024 7:07 AM EST Images from the original note were not included. [facility] HISTORY AND PHYSICAL EXAMINATION SERVICE DATE: 10/04/2024 SERVICE TIME: 7:28 AM PRIMARY CARE PHYSICIAN: Fede Davis MD Assessment Patient has the following medical conditions which may affect david-operative course: Epilepsy (HCC) Assessment: controlled with meds, last seizure 02/2023 full body. Follows with dr Thompson neurologist in [facility] (idiopathic intracranial hypertension) Assessment: spinal puncture planned, last one last month Difficult intravenous access Assessment: pt has had multiple midlines and ultrasound guided IV in the past S/P gastric bypass Assessment: 2013 Gastroesophageal reflux disease Assessment: controlled with Omeprazole Major depression, single episode Assessment: controlled with meds per PCP, no current therapist Anxiety Assessment: controlled with meds per PCP, no current therapist Medical marijuana use Assessment: uses daily, last used yesterday Morbid obesity with BMI of 45.0-49.9, adult (HCC) Assessment: BMI=45 Higgins Activity Status Index: METS: Walk indoors, such as around the house (1.75 METs) Do light work around the house, such as dusting or washing dishes (2.70 METs) Take care of self; that is eating, dressing, bathing, using the toilet (2.75 METs) Walk a block or two on level ground (2.75 METs) Do moderate work around the house, such as vacuuming, sweeping floors, or carrying in groceries (3.50 METs) Do yardwork, such as raking leaves, weeding, or pushing a power mower (4.50 METs) Climb a flight of stairs or walk up a hill (5.50 METs) DASI Score: 23.45 (Treadmill 4-5 days per week 30 minutes per session) Patient denies any chest pain or undue shortness of breath with the above physical activity. Clinical Frailty Scale: 3. Well, with treated comorbid disease STOP-Bang Score: BMI greater than 35 kg/m^2 Has a large neck Denies snoring loudly Denies feeling tired, fatigued, or sleepy during the daytime Has not been observed to stop breathing or choking/gasping during sleep Denies having high blood pressure Patient 50 years old or younger Non-male patient STOP-Bang Score: 2 ANESTHESIA FINDINGS: Intubation History: No history of difficult intubation Significant Anesthesia Considerations: potential difficult IV/vein access Airway History: No history of difficult airway I - PHYSICAL EVALUATION AIRWAY Patient intubated: No. Tracheostomy tube not present Mallampati: I. TM distance: >3 FB. Neck ROM: full ROM without neurological symptoms. Mouth opening: adequate. Short neck: yes. Thick neck: no Rangel present: no Lip Bite Test: I Microretrognathia/Micronagthia/Recessed Chin: No DENTAL Dental findings: teeth intact and missing tooth/teeth. Additional comments: Cracked upper front tooth Missing lower front tooth. II - ANESTHESIA PLAN Anesthetic Plan: other Anesthetic plan additional comments: Anesthesia choice. Beta Poncho Monitoring Plan Post Procedure Analgesic Plan Prepared for Surgery: optimally prepared for surgery. CONSULTS: Patient does not require consults for optimization at this time Planned Anesthetic: other anesthesia choice The Following Tests/Procedures Have Been Initiated: No orders of the defined types were placed in this encounter. This is a virtual visit using archify video visit. It required patient-provider interaction for themedical decision making as documented below. REASON FOR VISIT: Lexis Nguyen is a 39 year old female who is scheduled for Procedure(s) with comments: SPINAL PUNCTURE LUMBAR DIAGNOSTIC (Pending) - with TABBY. No additional lab orders required as this is mainly a therapeutic lumbar puncture Patient states she is a hard stick and needs ultrasound or midline at the request of Dr. Janice Arroyo for consultation. My final recommendation will be communicated back to the requesting physician by way of shared medical record or letter. Subjective The patient has the following: COVID-19 Immunization Status Covid-19 Vaccine (Series Information) Completed 09/09/2024 Imm Admin: COVID-19 vaccine, age 12+ yr (PFIZER-BIONTECH COMIRNATY) 10/25/2023 Imm Admin: COVID-19 vaccine, age 12+ yr, season (MODERNA) 09/01/2022 Imm Admin: COVID-19 vaccine, age 12+ yr, bivalent (PFIZER-BIONTECH) Only the first 3 history entries have been loaded, but more history exists. CHIEF COMPLAINT: pre-op HPI: 39 year old female with history of IIH, now to have above procedure. Last spinal puncture was last month. Last seizure 02/2023, describes as full body seizure. Follows every [address] Thompson, neurologist near [place]. Pt denies abdominal pain, nausea, vomiting, fevers or chills. This is a virtual visit. The visit was conducted using archify video visit. It required patient-provider interaction for the medical decision making as documented below. I have communicated my name and active licensure. The patient's identity and physical location wereverified at the time of this visit. Either the patient or their legal patient accounting representative has been informed of the risks and benefits of and alternatives to treatment through a remote evaluation and consents to proceed with the evaluation remotely. REVIEW OF SYSTEMS: General: See HPI. Intentional weight loss with semaglutide and exercise 30# in 4 months Neurological: See HPI. Respiratory: No history of current cough or dyspnea, or pneumonia in the past 6 weeks. No history of respiratory/pulmonary symptoms or problems. Cardiovascular: No history of HTN requiring medication, no history of angina, CHF, [place], cardiac surgery or stents. Denies rest pain, gangrene or revascularization/amputation for PVD. No history of cardiovascular symptoms or problems. GI: Positive for: GERD Negative for: abdominal pain and liver disease. : No history of dysuria, frequency or incontinence, stones or chronic kidney disease. No difficulty urinating, nocturia > 1 time per night or hematuria. 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 Endocrine: No history of diabetes. Has not taken steroids within the past 30 days. No history of endocrinological symptoms or problems. Hematology: No history of bleeding or clotting disorder. Patient is not taking anti-coagulation or platelet medications. No history of hematological symptoms or problems. Oncology: No history of CA metastasis, chemo within 30 days, or radiotherapy within 90 days. No history of oncological symptoms or problems. Psych: Positive for: anxiety and depression. Musculoskeletal: Negative for joint pain or swelling, back pain or muscle pain. Skin: Negative for lesions, rash and itching. Implanted Devices: No implanted devices. PAST MEDICAL HISTORY Diagnosis Date Difficult intravenous access 02/16/2023 Epilepsy (HCC) IIH (idiopathic intracranial hypertension) PAST SURGICAL HISTORY Procedure Laterality Date APPENDIX NET-EXCIS(APPENDECTOMY)SYNOPTIC 2007 GASTRIC BYPASS HX 2013 HYSTERECTOMY 2021 MIDLINE INSERTION/CONSULT 07/28/2023 MIDLINE INSERTION/CONSULT 12/14/2023 MIDLINE INSERTION/CONSULT 02/01/2024 MIDLINE INSERTION/CONSULT 03/14/2024 MIDLINE INSERTION/CONSULT 06/07/2024 MIDLINE INSERTION/CONSULT 09/15/2024 PAST SURGICAL HISTORY OF 2019 collar bone fracture (hardware placement and removal) PAST SURGICAL HISTORY OF lumbar punctures (142) PAST SURGICAL HISTORY OF 02/2023 brain angiogram PAST SURGICAL HISTORY OF 2009 CASINO BANKER Shunt - removed in 2009 due to infection REMOVAL GALLBLADDER 2015 TONSILLECTOMY HX 2006 FAMILY HISTORY Problem Relation Age of Onset COPD Mother Diabetes Father Ischemic Heart Disease Father Stroke Father Skin Cancer Father Difficulty with anesthesia No Family History Anesthesia Problems No Family History Social History Tobacco Use Smoking status: Never Passive exposure: Never Smokeless tobacco: Never Substance Use Topics Alcohol use: Not Currently Drug use: Yes Frequency: 7.0 times per week Comment: medical marijuana-vaping last used yesterday. Prior to Admission medications as of 10/04/24 0705 Medication Sig Last Dose Taking SEMAGLUTIDE SUBCUTANEOUS Inject subcutaneously. Yes omeprazole (PRILOSEC) 20 mg capsule Take 1 capsule by mouth once daily. Yes traMADol (ULTRAM) 50 mg tablet Take 1 tablet by mouth twice daily as needed for pain. Yes cyanocobalamin (VITAMIN B-12) 1,000 mcg tab Take 1 tablet by mouth once daily. Yes lacosamide (VIMPAT) 200 mg Take 1 tablet by mouth twice daily. Yes ARIPiprazole (ABILIFY) 10 mg tablet Take 10 mg by mouth once daily. Yes Calcium Citrate 250 mg calcium tab Take 1 tablet by mouth once daily. Yes lidocaine, PF, (XYLOCAINE) 10 mg/mL (1 %) soln injection 1-10 mL by INTRADERMAL route as needed. For use during PICC/Midline Insertion ONLY. DULoxetine (CYMBALTA) 60 mg capsule duloxetine 60 mg capsule,delayed release TAKE 1 CAPSULE BY MOUTH TWICE DAILY No medication comments found. ALLERGIES Allergen Reactions Nsaids (Non-Steroid* GI Upset, Contraindication-Medical Surgical Because of gastric bypass Cavanaugh Pepper Rash Nortriptyline Other: See Comments Tremors Gabapentin Mental Status Change, Other: See Comments Tremors Penicillins Hives, Rash Received IV cefazolin at [facility] in 2018 and 2020 prior to procedures Received IV cefazolin at [facility] in 2018 and 2020 prior to procedures Objective PHYSICAL EXAM: (if completed, exam performed via video enabled technology) General: alert and oriented and morbidly obese. Pertinent negatives noted - not distressed. Skin: normal color, no rash or lesions. HEENT: Neck; Full ROM, no cervical lymph nodes noted, no gross abnormality. Mucous membranes moist.. Cardiovascular: Carotid pulse palpated regular and counted per pt aloud. Respiratory: Equal chest rise bilateral, no audible wheezing, in NAD. Abdomen: Palpated and no reported tenderness per pt. Extremities: no deformity, no edema or tenderness, no joint swelling or clubbing. Neurological: normal cognition and motor skills. PAIN ASSESSMENT: VITALS: Pulse 54[pt palpated carotid pulse[ Ht 5' 4 (1.63m) Wt 261 lb (118.4kg) BMI 44.78 kg/(m^2). Diagnostic tests reviewed for today's visit: Lab Value Units Date High Low HB 13.0 g/dL 08/15/2024 15.5 11.5 HCT 38.9 % 08/15/2024 46.0 36.0 WBC 5.92 k/uL 08/15/2024 11.00 3.70 PLT 195 k/uL 08/15/2024 400 150 NA No results within date range. K No results within date range. GLUC No results within date range. BUN No results within date range. CREAT No results within date range. PTSEC No results within date range. INR No results within date range. APTT No results within date range. ALT No results within date range. AST No results within date range. TBILI No results within date range. TSH No results within date range. Lab Value Units Date High Low HCGQT No results within date range. UHCG No results within date range. HCG, BODY* No results within date range. Lab Value Units Date High Low ABORHD No results within date range. ABSCREEN No results within date range. Hemoglobin A1C (%) Date Value 03/22/2023 5.1 Recent Results (from the past 8760 hour(s)) ECG COMPLETE Collection Time: 10/10/23 4:05 AM Result Value Ventricular Rate 91 Atrial Rate 91 P-R Interval 142 QRS Duration 88 QT Interval 362 QTC Calculation (Bazett) 445 Calculated P [place] 5 Calculated R [place] -5 Calculated T [place] 60 Impression NORMAL SINUS RHYTHM CANNOT EXCLUDE ANTERIOR MYOCARDIAL INFARCTION , AGE UNDETERMINED ABNORMAL ECG Confirmed by JESSIE RODRIGUEZ M.D. ([id number]), online editor JACKIE HOU ([id number]) on 10/11/2023 8:14:36 AM No results found for this or any previous visit (from the past 10574 hour(s)). Instructions Given to Patient: Instructions located in the after visit summary. Patient given verbal and written preop instructions and voices comprehension and compliance. SIGNATURE: Saima Swanson APRN.CNP PATIENT NAME: Lexis Nguyen DATE: October 04, 2024 TIME: 7:07 AM PAGER/CONTACT #: [facility] History and physical note* Saima Swanson APRN.CNP - 10/04/2024 7:07 AM EST Images from the original note were not included. [facility] HISTORY AND PHYSICAL EXAMINATION SERVICE DATE: 10/04/2024 SERVICE TIME: 7:28 AM PRIMARY CARE PHYSICIAN: Fede Davis MD Assessment Patient has the following medical conditions which may affect david-operative course: Epilepsy (HCC) Assessment: controlled with meds, last seizure 02/2023 full body. Follows with dr Thompson neurologist in [facility] (idiopathic intracranial hypertension) Assessment: spinal puncture planned, last one last month Difficult intravenous access Assessment: pt has had multiple midlines and ultrasound guided IV in the past S/P gastric bypass Assessment: 2013 Gastroesophageal reflux disease Assessment: controlled with Omeprazole Major depression, single episode Assessment: controlled with meds per PCP, no current therapist Anxiety Assessment: controlled with meds per PCP, no current therapist Medical marijuana use Assessment: uses daily, last used yesterday Morbid obesity with BMI of 45.0-49.9, adult (HCC) Assessment: BMI=45 Higgins Activity Status Index: METS: Walk indoors, such as around the house (1.75 METs) Do light work around the house, such as dusting or washing dishes (2.70 METs) Take care of self; that is eating, dressing, bathing, using the toilet (2.75 METs) Walk a block or two on level ground (2.75 METs) Do moderate work around the house, such as vacuuming, sweeping floors, or carrying in groceries (3.50 METs) Do yardwork, such as raking leaves, weeding, or pushing a power mower (4.50 METs) Climb a flight of stairs or walk up a hill (5.50 METs) DASI Score: 23.45 (Treadmill 4-5 days per week 30 minutes per session) Patient denies any chest pain or undue shortness of breath with the above physical activity. Clinical Frailty Scale: 3. Well, with treated comorbid disease STOP-Bang Score: BMI greater than 35 kg/m^2 Has a large neck Denies snoring loudly Denies feeling tired, fatigued, or sleepy during the daytime Has not been observed to stop breathing or choking/gasping during sleep Denies having high blood pressure Patient 50 years old or younger Non-male patient STOP-Bang Score: 2 ANESTHESIA FINDINGS: Intubation History: No history of difficult intubation Significant Anesthesia Considerations: potential difficult IV/vein access Airway History: No history of difficult airway I - PHYSICAL EVALUATION AIRWAY Patient intubated: No. Tracheostomy tube not present Mallampati: I. TM distance: >3 FB. Neck ROM: full ROM without neurological symptoms. Mouth opening: adequate. Short neck: yes. Thick neck: no Rangel present: no Lip Bite Test: I Microretrognathia/Micronagthia/Recessed Chin: No DENTAL Dental findings: teeth intact and missing tooth/teeth. Additional comments: Cracked upper front tooth Missing lower front tooth. II - ANESTHESIA PLAN Anesthetic Plan: other Anesthetic plan additional comments: Anesthesia choice. Beta Poncho Monitoring Plan Post Procedure Analgesic Plan Prepared for Surgery: optimally prepared for surgery. CONSULTS: Patient does not require consults for optimization at this time Planned Anesthetic: other anesthesia choice The Following Tests/Procedures Have Been Initiated: No orders of the defined types were placed in this encounter. This is a virtual visit using archify video visit. It required patient-provider interaction for themedical decision making as documented below. REASON FOR VISIT: Lexis Nguyen is a 39 year old female who is scheduled for Procedure(s) with comments: SPINAL PUNCTURE LUMBAR DIAGNOSTIC (Pending) - with TABBY. No additional lab orders required as this is mainly a therapeutic lumbar puncture Patient states she is a hard stick and needs ultrasound or midline at the request of Dr. Janice Arroyo for consultation. My final recommendation will be communicated back to the requesting physician by way of shared medical record or letter. Subjective The patient has the following: COVID-19 Immunization Status Covid-19 Vaccine (Series Information) Completed 09/09/2024 Imm Admin: COVID-19 vaccine, age 12+ yr (PFIZER-BIONTECH COMIRNATY) 10/25/2023 Imm Admin: COVID-19 vaccine, age 12+ yr, 2022- season (MODERNA) 09/01/2022 Imm Admin: COVID-19 vaccine, age 12+ yr, bivalent (PFIZER-BIONTECH) Only the first 3 history entries have been loaded, but more history exists. CHIEF COMPLAINT: pre-op HPI: 39 year old female with history of IIH, now to have above procedure. Last spinal puncture was last month. Last seizure 02/2023, describes as full body seizure. Follows every [address] Thompson, neurologist near [place]. Pt denies abdominal pain, nausea, vomiting, fevers or chills. This is a virtual visit. The visit was conducted using archify video visit. It required patient-provider interaction for the medical decision making as documented below. I have communicated my name and active licensure. The patient's identity and physical location wereverified at the time of this visit. Either the patient or their legal patient accounting representative has been informed of the risks and benefits of and alternatives to treatment through a remote evaluation and consents to proceed with the evaluation remotely. REVIEW OF SYSTEMS: General: See HPI. Intentional weight loss with semaglutide and exercise 30# in 4 months Neurological: See HPI. Respiratory: No history of current cough or dyspnea, or pneumonia in the past 6 weeks. No history of respiratory/pulmonary symptoms or problems. Cardiovascular: No history of HTN requiring medication, no history of angina, CHF, [place], cardiac surgery or stents. Denies rest pain, gangrene or revascularization/amputation for PVD. No history of cardiovascular symptoms or problems. GI: Positive for: GERD Negative for: abdominal pain and liver disease. : No history of dysuria, frequency or incontinence, stones or chronic kidney disease. No difficulty urinating, nocturia > 1 time per night or hematuria. 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 Endocrine: No history of diabetes. Has not taken steroids within the past 30 days. No history of endocrinological symptoms or problems. Hematology: No history of bleeding or clotting disorder. Patient is not taking anti-coagulation or platelet medications. No history of hematological symptoms or problems. Oncology: No history of CA metastasis, chemo within 30 days, or radiotherapy within 90 days. No history of oncological symptoms or problems. Psych: Positive for: anxiety and depression. Musculoskeletal: Negative for joint pain or swelling, back pain or muscle pain. Skin: Negative for lesions, rash and itching. Implanted Devices: No implanted devices. PAST MEDICAL HISTORY Diagnosis Date Difficult intravenous access 02/16/2023 Epilepsy (HCC) IIH (idiopathic intracranial hypertension) PAST SURGICAL HISTORY Procedure Laterality Date APPENDIX NET-EXCIS(APPENDECTOMY)SYNOPTIC 2007 GASTRIC BYPASS HX 2014 HYSTERECTOMY 2021 MIDLINE INSERTION/CONSULT 07/28/2023 MIDLINE INSERTION/CONSULT 12/14/2023 MIDLINE INSERTION/CONSULT 02/01/2024 MIDLINE INSERTION/CONSULT 03/14/2024 MIDLINE INSERTION/CONSULT 06/07/2024 MIDLINE INSERTION/CONSULT 09/15/2024 PAST SURGICAL HISTORY OF 2019 collar bone fracture (hardware placement and removal) PAST SURGICAL HISTORY OF lumbar punctures (142) PAST SURGICAL HISTORY OF 02/2023 brain angiogram PAST SURGICAL HISTORY OF 2009 CASINO BANKER Shunt - removed in 2009 due to infection REMOVAL GALLBLADDER 2015 TONSILLECTOMY HX 2005 FAMILY HISTORY Problem Relation Age of Onset COPD Mother Diabetes Father Ischemic Heart Disease Father Stroke Father Skin Cancer Father Difficulty with anesthesia No Family History Anesthesia Problems No Family History Social History Tobacco Use Smoking status: Never Passive exposure: Never Smokeless tobacco: Never Substance Use Topics Alcohol use: Not Currently Drug use: Yes Frequency: 7.0 times per week Comment: medical marijuana-vaping last used yesterday. Prior to Admission medications as of 10/04/24 0705 Medication Sig Last Dose Taking SEMAGLUTIDE SUBCUTANEOUS Inject subcutaneously. Yes omeprazole (PRILOSEC) 20 mg capsule Take 1 capsule by mouth once daily. Yes traMADol (ULTRAM) 50 mg tablet Take 1 tablet by mouth twice daily as needed for pain. Yes cyanocobalamin (VITAMIN B-12) 1,000 mcg tab Take 1 tablet by mouth once daily. Yes lacosamide (VIMPAT) 200 mg Take 1 tablet by mouth twice daily. Yes ARIPiprazole (ABILIFY) 10 mg tablet Take 10 mg by mouth once daily. Yes Calcium Citrate 250 mg calcium tab Take 1 tablet by mouth once daily. Yes lidocaine, PF, (XYLOCAINE) 10 mg/mL (1 %) soln injection 1-10 mL by INTRADERMAL route as needed. For use during PICC/Midline Insertion ONLY. DULoxetine (CYMBALTA) 60 mg capsule duloxetine 60 mg capsule,delayed release TAKE 1 CAPSULE BY MOUTH TWICE DAILY No medication comments found. ALLERGIES Allergen Reactions Nsaids (Non-Steroid* GI Upset, Contraindication-Medical Surgical Because of gastric bypass Cavanaugh Pepper Rash Nortriptyline Other: See Comments Tremors Gabapentin Mental Status Change, Other: See Comments Tremors Penicillins Hives, Rash Received IV cefazolin at [facility] in 2018 and 2020 prior to procedures Received IV cefazolin at [facility] in 2018 and 2020 prior to procedures Objective PHYSICAL EXAM: (if completed, exam performed via video enabled technology) General: alert and oriented and morbidly obese. Pertinent negatives noted - not distressed. Skin: normal color, no rash or lesions. HEENT: Neck; Full ROM, no cervical lymph nodes noted, no gross abnormality. Mucous membranes moist.. Cardiovascular: Carotid pulse palpated regular and counted per pt aloud. Respiratory: Equal chest rise bilateral, no audible wheezing, in NAD. Abdomen: Palpated and no reported tenderness per pt. Extremities: no deformity, no edema or tenderness, no joint swelling or clubbing. Neurological: normal cognition and motor skills. PAIN ASSESSMENT: VITALS: Pulse 54[pt palpated carotid pulse[ Ht 5' 4 (1.63m) Wt 261 lb (118.4kg) BMI 44.78 kg/(m^2). Diagnostic tests reviewed for today's visit: Lab Value Units Date High Low HB 13.0 g/dL 08/15/2024 15.5 11.5 HCT 38.9 % 08/15/2024 46.0 36.0 WBC 5.92 k/uL 08/15/2024 11.00 3.70 PLT 195 k/uL 08/15/2024 400 150 NA No results within date range. K No results within date range. GLUC No results within date range. BUN No results within date range. CREAT No results within date range. PTSEC No results within date range. INR No results within date range. APTT No results within date range. ALT No results within date range. AST No results within date range. TBILI No results within date range. TSH No results within date range. Lab Value Units Date High Low HCGQT No results within date range. UHCG No results within date range. HCG, BODY* No results within date range. Lab Value Units Date High Low ABORHD No results within date range. ABSCREEN No results within date range. Hemoglobin A1C (%) Date Value 03/22/2023 5.1 Recent Results (from the past 8760 hour(s)) ECG COMPLETE Collection Time: 10/10/23 4:05 AM Result Value Ventricular Rate 91 Atrial Rate 91 P-R Interval 142 QRS Duration 88 QT Interval 362 QTC Calculation (Bazett) 445 Calculated P [place] 5 Calculated R [place] -5 Calculated T [place] 60 Impression NORMAL SINUS RHYTHM CANNOT EXCLUDE ANTERIOR MYOCARDIAL INFARCTION , AGE UNDETERMINED ABNORMAL ECG Confirmed by JESSIE RODRIGUEZ M.D. ([id number]), online editor JACKIE HOU ([id number]) on 10/11/2023 8:14:36 AM No results found for this or any previous visit (from the past 80751 hour(s)). Instructions Given to Patient: Instructions located in the after visit summary. Patient given verbal and written preop instructions and voices comprehension and compliance. SIGNATURE: Saima Swanson APRN.CNP PATIENT NAME: Lexis Nguyen DATE: October 04, 2024 TIME: 7:07 AM PAGER/CONTACT #: documented in this encounter[facility] NoteDate of Procedure 10/02/2024. General Engineering Teacher Information Donor Floor Technician: ma. Start time: 8:11 AM. Stop time: 8:28 AM. No Allergies to adhesive bandages. Reliability Right Eye Good. Left Eye Good. Interpretation Right Eye Non-specific defect. Left Eye Altitudinal defect. Interval Change Right Eye Stable. Left Eye Worse (Stable pattern with increased mean deviation - patient noted increased visual snow syndrome symptoms during testing). Notes Automated ([place]) visual field testing was performed using the 24-2 KWESI fast testing strategy. A copy of the visual mauricio will be uploaded to the electronic medical record's imaging system. OD: Reliability: 0/10 Fixation Losses, 0% False Positives, 1% False Negatives Pattern: minimal blind spot enlargement Mean Deviation: 0.83 (from 05/01/24: -0.32, 01/03/24: 1.09; 09/28: 0.78; 06/28: 0.76; 03/22/23: -3.2; 12/22/22: -1.27) OS: Reliability: 0/12 Fixation Losses, 0% False Positives, 0% False Negatives Pattern: inferior altitudinal zone defect Mean Deviation: -15.80 (from 05/01/24: -12.98, 01/03/24: -8.97; 09/28: -14.11; 06/28 -7.68; 03/22/23: -0.60; 12/22/22: -0.02)[id number] NoteDate of Procedure 10/02/2024. General Engineering Teacher Information Donor Floor Technician: edgardo. Stop time: 8:40 AM. JACINTO Dan . Quality Right Eye Good. Left Eye Good. NFL Interpretation Right Eye Superior loss. Left Eye Normal. Ganglion Cell Layer Thickness Right Eye Diffuse loss. Left Eye Superior loss. Interval Change Right Eye Stable. Left Eye Stable. Notes OCT: OD: normal average pRNFL thickness average: 82 (from 05/01/24: 81, 01/03/24: 82; 09/28: 80; 06/28: 83; 03/22/23: 82; 12/22/22: 82); ganglion cell loss - near diffuse (average GCL +IPL thickness of: 70 from 05/01/24: 71, 01/03/24: 71; 09/28: 72; 06/28: 72; 03/22/23: 71; 12/22/22: 72) OS: normal average pRNFL thickness (average: 85 from 05/01/24: 83, 01/03/24: 82; 09/28: 82; 06/28: 85; 03/22/23: 85; 12/22/22: 85); ganglion cell loss - scattered (average GCL +IPL thickness of: 73 from 05/01/24: 74, 01/03/24: 73; 09/28: 73; 06/28: 74; 03/22/23: 74; 12/22/22: 74)[id number] NoteDate of Procedure 10/02/2024. General Engineering Teacher Information Donor Floor Technician: Rina Livingston Start time: 9:05 AM. Interval Change Right Eye Stable. Left Eye Stable. Notes No active optic disc edema - stable both [id number] NoteHNO ID: [id number] Author: STEFANO CHACON MD Service: ? Author Type: Physician Type: Progress Notes Filed: 10/02/2024 10:16 Note Text: Lexis Nguyen is a 39 year old woman who returns her history of idiopathic intracranial hypertension (IIH). She has had a very complex history of idiopathic intracranial hypertension (IIH) with symptoms that began in 1999 and diagnosis made in 2006 with an opening pressure on lumbar puncture at one point of 40 cm H2O. She underwent CASINO BANKER shunt in 2009 that was infected and removed. She also underwent gastric bypass in 2013. She has been on Topiramate, acetazolamide (diamox), and lasix for the intracranial hypertension. Migraine and pain medications have included Aimovig, nortriptyline, duloxetine, and as needed tramadol. Her history was further complicated by an idiopathic seizure disorder for which she has been on vimpat. At initial consultation 12/22/22 she reported positional headaches, peripheral vision loss, transient visual obscurations, and pulsatile tinnitus. She denied associated diplopia. The patient's weight had been stable. She denied exposure to topical retin-A / accutane and tetracyclines. She had not recently contracted COVID-19. She was undergoing monthly lumbar punctures with it last performed about 2 weeks prior initial consultation . She could tell when she required the next as she would experience an increase in all of her symptoms including transient visual obscurations. The patient's ophthalmic history was otherwise notable for a maternal history of glaucoma. The patient's initial neuro-ophthalmic exam 12/22/22 showed blind spot enlargement with superotemporal constriction on the right visual field and otherwise good afferent function. She did have right greater than left borderline ganglion cell loss on OCT in the setting of prior optic disc edema, with only the appearance of rim fullness by dilated fundus exam and OCT peripapillary retinal nerve fiber layer. Since she had ongoing pulsatile tinnitus and other symptoms suggestive of intracranial hypertension, had required 129 large volume lumbar punctures, did not tolerate the oral medications, I ordered an MRV to evaluation the caliber of the venous sinuses, with potential referral to Dr. Campos thereafter, with whom I discussed her care. At her 01/11/23 virtual visit she reported ongoing transient visual obscurations in the preceding couple of weeks - slowly getting worse. As time went on she noticed progressive worsening. She continued to experience left worse than right-sided pulsatile tinnitus. She could tell that her vision was declining with it. She was pending lumbar puncture on Monday 01/15 arranged by NeuroIR / anesthesia with that being their absolute earliest date available. MRV of the head with and without contrast did not reveal a structural etiology underlying the patient's symptoms. She was still interested in moving forward with a formal angio to determine if there might be a gradient amenable to stenting. This unfortunately did not ultimately show a gradient so stenting was not indicated. She was eager to undergo lumbar puncture 01/15 with removal of CSF to within normal limits and we planned for in clinic thereafter. At her 03/22/23 she reported worsening vision, positional headaches, pulsatile tinnitus, and new diplopia. Her repeat exam did unfortunately show worsened right visual field defect in the setting of increased high false positives with otherwise stable afferent visual pathway function. Efferent function was intact. I placed another order for lumbar puncture with drainage via IR to be scheduled in conjunction with anesthesia since she required MAC. I contacted the provider who performed her pre-anesthesia consult previously to request assistance getting that scheduled and we tried to facilitate scheduling between anesthesia and IR. Finally, I had a glycohemoglobin drawn in the event she would ultimately be a candidate for a GLP1 inhibitor going forward, which was within normal limits. She unfortunately developed a post-lumbar puncture headache after her most recent lumbar puncture - that did have an elevated opening pressure of 37 cm H2O - so she required epidural blood patch placement thereafter. At her 06/28 return visit she reported that the EBP did help but was a painful process. Her repeat exam showed worsening left visual field defect in the setting of of increased visual snow syndrome associated symptoms during testing. There remained no optic disc edema fortunately. That being said, given the burden of symptoms and most recently elevated opening pressure, ideally we would find a better option than monthly lumbar punctures. To that end, we again discussed the potential utility of a GLP-1 inhibitor as per the [place] RCT (PMID: 69066581), which I hoped to discuss with her primary care physician to see if this could be facilitated. The p (more content not included)...[facility]11-11-2024 History of Present illness Narrative* Stefano Chacon MD - 10/02/2024 8:48 AM EST Lexis Nguyen is a 39 year old woman who returns her history of idiopathic intracranial hypertension (IIH). She has had a very complex history of idiopathic intracranial hypertension (IIH) with symptoms that began in 1999 and diagnosis made in 2006 with an opening pressure on lumbar puncture at one point of 40 cm H2O. She underwent CASINO BANKER shunt in 2009 that was infected and removed. She also underwent gastric bypass in 2013. She has been on Topiramate, acetazolamide (diamox), and lasix for the intracranial hypertension. Migraine and pain medications have included Aimovig, nortriptyline, duloxetine, and as needed tramadol. Her history was further complicated by an idiopathic seizure disorder for which she has been on vimpat. At initial consultation 12/22/22 she reported positional headaches, peripheral vision loss, transient visual obscurations, and pulsatile tinnitus. She denied associated diplopia. The patient's weight had been stable. She denied exposure to topical retin-A / accutane and tetracyclines. She had not recently contracted COVID-19. She was undergoing monthly lumbar punctures with it last performed about2 weeks prior initial consultation . She could tell when she required the next as she would experience an increase in all of her symptoms including transient visual obscurations. The patient's ophthalmic history was otherwise notable for a maternal history of glaucoma. The patient's initial neuro-ophthalmic exam 12/22/22 showed blind spot enlargement with superotemporal constriction on the right visual field and otherwise good afferent function. She did have right greater than left borderline ganglion cell loss on OCT in the setting of prior optic disc edema, withonly the appearance of rim fullness by dilated fundus exam and OCT peripapillary retinal nerve fiber layer. Since she had ongoing pulsatile tinnitus and other symptoms suggestive of intracranial hypertension, had required 129 large volume lumbar punctures, did not tolerate the oral medications, I ordered an MRV to evaluation the caliber of the venous sinuses, with potential referral to Dr. Campos thereafter, with whom I discussed her care. At her 01/11/23 virtual visit she reported ongoing transient visual obscurations in the preceding couple of weeks - slowly getting worse. As time went on she noticed progressive worsening. She continued to experience left worse than right-sided pulsatile tinnitus. She could tell that her vision was declining with it. She was pending lumbar puncture on Monday 01/15 arranged by NeuroIR / anesthesia with that being their absolute earliest date available. MRV of the head with and without contrast did not reveal a structural etiology underlying the patient's symptoms. She was still interested in moving forward with a formal angio to determine if there might be a gradient amenable to stenting. This unfortunately did not ultimately show a gradient so stenting was not indicated. She was eager to undergo lumbar puncture 01/15 with removal of CSF to within normal limits and we planned for in clinic thereafter. At her 03/22/23 she reported worsening vision, positional headaches, pulsatile tinnitus, and new diplopia. Her repeat exam did unfortunately show worsened right visual field defect in the setting of increased high false positives with otherwise stable afferent visual pathway function. Efferent function was intact. I placed another order for lumbar puncture with drainage via IR to be scheduled in conjunction withanesthesia since she required MAC. I contacted the provider who performed her pre-anesthesia consult previously to request assistance getting that scheduled and we tried to facilitate scheduling between anesthesia and IR. Finally, I had a glycohemoglobin drawn in the event she would ultimately be a candidate for a GLP1 inhibitor going forward, which was within normal limits. She unfortunately developed a post-lumbar puncture headache after her most recent lumbar puncture -that did have an elevated opening pressure of 37 cm H2O - so she required epidural blood patch placement thereafter. At her 06/28 return visit she reported that the EBP did help but was a painful process. Her repeat exam showed worsening left visual field defect in the setting of of increased visual snow syndrome associated symptoms during testing. There remained no optic disc edema fortunately. That being said, given the burden of symptoms and most recently elevated opening pressure, ideally we would find a better option than monthly lumbar punctures. To that end, we again discussed the potential utility of a GLP-1 inhibitor as per the [place] RCT (PMID: 47755899), which I hoped to discuss with her primary care physician to see if this could be facilitated. The patient was very interested in pursuing this option, even if it were to require weight clinic consultation which we could explore if needed. Her last lumbar puncture on 09/24 had an opening pressure recorded at 38 cm H2O. She unfortunately experienced back pain the day after. At her 09/28/23 clinic return she reported that on Wednesday 09/26 her vision became blurrier on the left (much more significant than the right). She also reported pulsatile tinnitus and transient visual obscurations with bending. She only felt better for about a day after, which was atypical. Repeat exam unfortunately showed progression of a now shauna inferior altitudinal zone defect on theleft with otherwise stable afferent visual pathway function bilaterally and disc appearance, again with nasal fullness and trace gliosis in the setting of mod cup to disc ratios. In this clinical context I ordered a repeat MRI of the brain and orbits with and without contrast. She planned to wait to have her next lumbar puncture until after the MRI to avoid artifact/PME, withan additional order placed for the lumbar puncture with IR with opening pressure and drainage to beperformed in conjunction with anesthesia. Going forward she conveyed her preference to please ensure that the provider performing the lumbar puncture had experience with her case given the complexity. Finally, I explained that I would be happy to provide any supportive documentation for consideration of a GLP-1 inhibitor as noted previously. Repeat neuroimaging was fortunately without acute intracranial pathology. At her 01/03/24 return visit she reported ongoing daily headaches - with a positional component - along with pulsatile tinnitus and transient visual obscurations. Monocular diplopia had occasionally recurred for which artificial tears were advised. Repeat exam showed improvement in the inferior defect on the left visual field - more arcuate appearing than her prior study, remaining overall full on the right. Going forward she was going to plan to increase the time between repeat lumbar punctures given the back pain incurred as a result from them unfortunately; a new order was placed to be performed in conjunction with anesthesia. Her primary care physician re-prescribed the wegovy, which would hopefully be in stock at the pharmacy as it was previously unavailable. Her LP 03/14/24 with OP of 26. LP 04/28/24 with OP of 24. All were performed with anesthesia as requested. At her 05/01 clinic return she reported improvement in her visual symptoms since the last lumbar puncture, again without any improvement in the headaches thereafter. 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 Repeat exam showed increased density of the inferior altitudinal zone defect on the left visual field, with only scattered areas of decreased sensitivity on the unreliable right visual field, with otherwise stable afferent visual pathway. Dilated fundus exam remained without optic disc edema. Sensorimotor exam showed full ocular motility with orthophoria in all directions of gaze tested. Given the concurrent primary headache disorder, I again advised optimization of that regimen with referral to our neurology clinic placed accordingly. Neurology scheduling can be reached at: [phone]. An order for lumbar puncture to be scheduled with anesthesia was additionally placed. Finally, we completed her life insurance form. The 06/07 lumbar puncture had an opening pressure recorded at 25 cm H2O and on 07/11 it was recorded at 38 cm H2O. At her 07/12 virtual visit she denied any change in vision since last visit. Prior to her 07/12 lumbar puncture she did develop recurrent transient visual obscurations that had since resolved. Positional headaches and pulsatile tinnitus also improved following the last lumbar puncture. She reported back soreness (more than with the last lumbar puncture) and would be receiving injections for that through [facility] (Dr. Abner Graf). She was following up with her new primary care physician and will mention GLP1 inhibition again. Princess requested her records from the February visit when she established with him and send our notes along. I was happy to discuss the utility of a GLP1 with him. I placed orders for additional lumbar punctures to be scheduled with anesthesia since unfortunatelythere were no current alternative therapies that she has tolerated. I again requested my staff's help getting her set up with the [facility] headache clinic. ASSESSMENT/PLAN: (G93.2) IIH (idiopathic intracranial hypertension) (primary encounter diagnosis) (Z86.69) History of papilledema (H53.453) Other localized visual field defect, bilateral Today (10/02/2024) she reported some improvement in headaches following LP. She continued to experience headaches, transient visual obscurations, and pulsatile tinnitus. She was also scheduled for anevaluation with her primary eye doctor. She started a GLP1 inhibitor in July and has been tolerating it decently well, with some nausea for which she takes Zofran. She had lost 30 lbs over the preceding three months. Repeat LP on 09/15/24 recorded an opening pressure of 32 was performed. She was scheduled for her next LP on 10/18/24. Her repeat exam showed increased mean deviation associated with the inferior altitudinal zone defect on the left visual field, with only scattered areas of decreased sensitivity on the unreliable right visual field, with otherwise stable afferent visual pathway. She reported increased visual snow syndrome symptoms while performing today's visual field - we will continue to monitor. Dilated fundusexam remained without optic disc edema. Sensorimotor exam showed full ocular motility with orthophoria in all directions of gaze tested. She was still not yet scheduled with the headache clinic so I will again request the assistance of our staff in facilitating this. Their expertise is greatly appreciated. Finally I have put another lumbar puncture for drainage with IR and anesthesia - with request that our staff get that scheduled as well. I will then plan to see her back in 4-5 months, unless concerns arise in the interim, for which shewas provided my contact information and encouraged to reach out. ER presentation is otherwise advised for any acute onset neurological deficits. I have confirmed and edited as necessary the relevant ophthalmic history, ROS, and the neuro exam findings as obtained by others. I have seen and examined Lexis Nguyen. I have discussed the case and the management of this patient's care with the resident, if applicable. I also have reviewed and agree with the assessment and plan as stated above and agree with all ofits relevant components. Stefano Chacon MD 10:16 AM 10/02/2024 FOR ADMINISTRATIVE PURPOSES ONLY: My impression of this case is based upon an assessment of the patient's subacute on chronic problems listed above that pose a threat to visual and neurologic function. 43 minutes were spent on total patient care on the day of service that includes both quxz-ax-ybrd and ljw-sxlr-je-face time. This time was separate from any of my time spent completing and interpreting the ancillary testing (such as OCT, fundus photos, visual mauricio) and sensorimotor exam, if applicable. This time was broken downinto: 5 minutes reviewing the patient record before the visit, 10 minutes performing a medically appropriate neuro- ophthalmic history and exam (excluding time spent on the ancillary testing and sensorimotor exam, if applicable), 5 communicating results to the patient/family, 10 minutes counseling /educating the patient, 5 minutes documenting clinical information into the electronic health recordof the patient, 2 minutes ordering tests/medications/procedures, and 6 minutes coordinating care for the patient. I communicated with Dr. Davis regarding the management of this patient. The assessmentand plan were discussed extensively with the patient who was amenable and voiced understanding. documented in this encounterProm[facility] Tele[facility] encounter Note * Telephone Encounter - Megan Hodge - 09/20/2024 1:40 PM EDTSummary: [facility] Scheduling Called patient to confirm LP with [facility] on 09/27 as directed by Turner at [facility]. Left voice mail for herto call [phone]. Will schedule and send a my chart message as well. [facility]10-[facility] Miscellaneous Notes* Telephone Encounter - Megan Hodge - 09/20/2024 1:40 PM EDTSummary: [facility] Scheduling Called patient to confirm LP with [facility] on 09/27 as directed by Turner at [facility]. Left voice mail for herto call [phone]. Will schedule and send a my chart message as well. documented in this encounterPromedica [facility]10-25-2024 NoteHNO ID: [id number] Author: CHRIS TREVINO LPN Service: PICC Team Author Type: LICENSED NURSE Type: Procedures Filed: 09/15/2024 09:27 Note Text: MIDLINE INSERTION PROCEDURE NOTE - PICC TEAM NURSES DATE OF PROCEDURE: 09/15/2024 TIME OF PROCEDURE:915 ORDERING PHYSICIAN: Indications for line placement: Intravenous access Condition of line placement: Sterile Primary Proceduralist: Kaelyn Liu RN Home Care Attendant: Chris Trevino LPN Pre-procedure Review: ALLERGIES Allergen Reactions Nsaids (Non-Steroid* GI Upset, Contraindication-Medical Surgical Because of gastric bypass Cavanaugh Pepper Rash Nortriptyline Other: See Comments Tremors Gabapentin Mental Status Change, Other: See Comments Tremors Penicillins Hives, Rash Received IV cefazolin at [facility] in 2018 and 2020 prior to procedures Received IV cefazolin at [facility] in 2018 and 2020 prior to procedures Known history of Upper Venous Thrombosis: No Known history of Permanent Pacemaker or Automated Implanted Cardiac Device: No Previous breast surgery of lymph node dissection: No Estimated Glomerular Filtration Rate Date Value Ref Range Status 10/10/2023 118 >=60 mL/min/1.73m? Final Comment: Estimated Glomerular Filtration Rate (eGFR) is calculated using the 2020 CKD-EPI creatinine equation. This equation utilizes serum creatinine, sex, and age as parameters. The creatinine assay has traceable calibration to isotope dilution-mass spectrometry. Refer to KDIGO guidelines for clinical interpretation. In patients with unstable renal function, e.g. those with acute kidney injury, the eGFR may not accurately reflect actual GFR. History of Renal Disease: No Ultrasound assessment complete: Yes Procedure Narrative Safe Practice: Hand hygiene per hospital policy: Yes Skin preparation used: Chloraprep (CHG + alcohol), allowed to dry Barriers used by Proceduralist and all assisting personnel: Yes UNIVERSAL PROTOCOL / SAFETY CHECKLIST Procedure to be Performed: Midline Insertion Sign In: A Moment of CARE was completed. Personnel directly involved with the procedure wore the appropriate PPE (Personal Protective Equipment). Patient/Surrogate Stated/Verified: PATIENT VERIFIED(optional for EMERGENT procedures): Patient name, Date of , Relevant allergies, and The intended procedure Time Out Communication: Intended patient and procedure match the source documents. Consent documented and matches the intended procedure. Relevant labs, photos, and/or imaging studies have been reviewed. Correct side/site marked and visible. Medications required for procedure verified. Fire risk assessed and interventions discussed. Sign Out: SIGN OUT (optional for EMERGENT procedures): No specimen collected. All instruments, equipment, possible retained foreign bodies accounted for. Post-procedure follow-up management communicated and Plan of Care Visit completed when applicable. Chris Trevino LPN Midline Catheter Placement: Brand: bard Lot: [id number] Number of lumens: 1 Type of Midline: Power Injectable Midline Lumen size: 4 Slovak Placement Technique: Lidocaine: Yes, Lidocaine 1% Volume 5 mL Subcutaneous Modified Seldinger Technique use to place line via the: Left Brachial-poor venous presentation on the right in the past Ultrasound Guidance: Yes Number of attempts at insertion: 2 (first attempt-left basilic, difficulty accessing) Ensured control of guidewire during all aspects of the procedure: Yes Accounted for entire guidewire upon removal: Yes Internal length: 20 cm External length: 0 cm Trim length:20 cm Mid-Arm circumference: 37 centimeters Post insertion pain level related to procedure: 0 Action taken to address pain: None needed Verified placement: Positive blood return Line was flushed with 20 mL normal saline Line secured with: Securement device Sterile dressing applied and dated: Yes Sterile caps on all ports prior to leaving procedure area: Yes Specimens: None Complications: None Questions or problems: Page [id number] SIGNATURE: Chris Trevino LPN PATIENT NAME: Lexis Nguyen DATE: September 15, 2024 TIME: 9:16 AM PAGER: [phone]10-[facility] Tele[facility] encounter Note* Telephone Encounter - Nilda Dolan - 08/31/2024 3:48 PM EDT Had patient on the line and connected to IR department. They were able to get her LP scheduled for 09/15/24. That is before the deadline of 09/18/24 for the construction. [facility]10-10-[facility] Miscellaneous Notes* Telephone Encounter - Nilda Dolan - 08/31/2024 3:48 PM EDT Had patient on the line and connected to IR department. They were able to get her LP scheduled for 09/15/24. That is before the deadline of 09/18/24 for the construction. documented in this encounterPromedica [facility]lower [facility]09-24-2024 NoteHNO ID: [id number] Author: EVY PADILLA RN Service: PICC Team Author Type: Registered Nurse Type: Procedures Filed: 08/15/2024 08:01 Note Text: MIDLINE INSERTION PROCEDURE NOTE - PICC TEAM NURSES DATE OF PROCEDURE: 08/15/2024 TIME OF PROCEDURE: 0740 ORDERING PHYSICIAN: Perla Lynn CNP Indications for line placement: Intravenous access Condition of line placement: Sterile Primary Proceduralist: Kaelyn Liu RN Home Care Attendant: Clifford Cartwright RN Pre-procedure Review: ALLERGIES Allergen Reactions Nsaids (Non-Steroid* GI Upset, Contraindication-Medical Surgical Because of gastric bypass Cavanaugh Pepper Rash Nortriptyline Other: See Comments Tremors Gabapentin Mental Status Change, Other: See Comments Tremors Penicillins Hives, Rash Received IV cefazolin at [facility] in 2018 and 2020 prior to procedures Received IV cefazolin at [facility] in 2018 and 2020 prior to procedures Known history of Upper Venous Thrombosis: No Known history of Permanent Pacemaker or Automated Implanted Cardiac Device: No Previous breast surgery of lymph node dissection: No Estimated Glomerular Filtration Rate Date Value Ref Range Status 10/10/2023 118 >=60 mL/min/1.73m? Final Comment: Estimated Glomerular Filtration Rate (eGFR) is calculated using the 2020 CKD-EPI creatinine equation. This equation utilizes serum creatinine, sex, and age as parameters. The creatinine assay has traceable calibration to isotope dilution-mass spectrometry. Refer to KDIGO guidelines for clinical interpretation. In patients with unstable renal function, e.g. those with acute kidney injury, the eGFR may not accurately reflect actual GFR. History of Renal Disease: No Ultrasound assessment complete: Yes Procedure Narrative Safe Practice: Hand hygiene per hospital policy: Yes Skin preparation used: Chloraprep (CHG + alcohol), allowed to dry Barriers used by Proceduralist and all assisting personnel: Yes UNIVERSAL PROTOCOL / SAFETY CHECKLIST Procedure to be Performed: midline Sign In: A Moment of CARE was completed. Personnel directly involved with the procedure wore the appropriate PPE (Personal Protective Equipment). Special equipment: ultrasound Patient/Surrogate Stated/Verified: PATIENT VERIFIED(optional for EMERGENT procedures): Patient name, Date of , Relevant allergies, and The intended procedure Time Out Communication: Intended patient and procedure match the source documents. Consent documented and matches the intended procedure. Relevant labs, photos, and/or imaging studies have been reviewed. Correct side/site marked and visible. Medications required for procedure verified. Fire risk assessed and interventions discussed. Implant(s) inserted: Correct implant(s) confirmed including size and side. and Expiration date(s) reviewed. Sign Out: SIGN OUT (optional for EMERGENT procedures): All specimen containers correctly labeled. All instruments, equipment, possible retained foreign bodies accounted for. No instruments, equipment or retained foreign bodies applicable. Post-procedure follow-up management communicated and Plan of Care Visit completed when applicable. Clifford Cartwright RN Midline Catheter Placement: Brand: bard Lot: [id number] Number of lumens: 1 Type of Midline: Power Injectable Midline Lumen size: 4 Slovak Placement Technique: Lidocaine: Yes, Lidocaine 1% Volume 3 mL Subcutaneous Modified Seldinger Technique use to place line via the: Left Basilic --- better venous presentation noted on LUE Ultrasound Guidance: Yes Number of attempts at insertion: 1 Ensured control of guidewire during all aspects of the procedure: Yes Accounted for entire guidewire upon removal: Yes Internal length: 20 cm External length: 0 cm Trim length:20 Mid-Arm circumference: 41 centimeters Post insertion pain level related to procedure: 0 Action taken to address pain: None needed Verified placement: Positive blood return Line was flushed with 20 mL normal saline Line secured with: Securement device Sterile dressing applied and dated: Yes Sterile caps on all ports prior to leaving procedure area: Yes Specimens: Yes, blood Complications: None Patient education materials: Given to patient Questions or problems: Page [phone] SIGNATURE: Clifford Cartwright RN PATIENT NAME: Lexis Nguyen DATE: August 15, 2024 TIME: 7:39 AM PAGER: [phone] Alliance [facility] Hospital08-21-2024 NoteHNO ID: [id number] Author: STEFANO CHACON MD Service: ? Author Type: Physician Type: Progress Notes Filed: 07/12/2024 08:19 Note Text: ??This is a telemedicine visit that was performed using the [employer] virtual platform with the originating site at my work office and the distant site at the patient's home. Verbal consent to participate in a combined audio and video visit was obtained. This visit occurred during the Coronavirus (COVID-19) Public Health Emergency. The patient consented to this virtual visit. I discussed with the patient the nature of our telemedicine visits, that: - I would evaluate the patient and recommend diagnostics and treatments based on my assessment - Our sessions are not being recorded and that personal health information is protected - Our team would provide follow up care in person if/when the patient needs it I have communicated my name and active licensure. The patient's identity and physical location were verified at the time of this visit. Either the patient or their legal patient accounting representative has been informed of the risks and benefits of -- and alternatives to -- treatment through a remote evaluation and consents to proceed with the evaluation remotely. Lexis Oakes is a 39 year old woman who returns her history of idiopathic intracranial hypertension (IIH). She has had a very complex history of idiopathic intracranial hypertension (IIH) with symptoms that began in 1999 and diagnosis made in 2006 with an opening pressure on lumbar puncture at one point of 40 cm H2O. She underwent CASINO BANKER shunt in 2009 that was infected and removed. She also underwent gastric bypass in 2013. She has been on Topiramate, acetazolamide (diamox), and lasix for the intracranial hypertension. Migraine and pain medications have included Aimovig, nortriptyline, duloxetine, and as needed tramadol. Her history was further complicated by an idiopathic seizure disorder for which she has been on vimpat. At initial consultation 12/22/22 she reported positional headaches, peripheral vision loss, transient visual obscurations, and pulsatile tinnitus. She denied associated diplopia. The patient's weight had been stable. She denied exposure to topical retin-A / accutane and tetracyclines. She had not recently contracted COVID-19. She was undergoing monthly lumbar punctures with it last performed about 2 weeks prior initial consultation . She could tell when she required the next as she would experience an increase in all of her symptoms including transient visual obscurations. The patient's ophthalmic history was otherwise notable for a maternal history of glaucoma. The patient's initial neuro-ophthalmic exam 12/22/22 showed blind spot enlargement with superotemporal constriction on the right visual field and otherwise good afferent function. She did have right greater than left borderline ganglion cell loss on OCT in the setting of prior optic disc edema, with only the appearance of rim fullness by dilated fundus exam and OCT peripapillary retinal nerve fiber layer. Since she had ongoing pulsatile tinnitus and other symptoms suggestive of intracranial hypertension, had required 129 large volume lumbar punctures, did not tolerate the oral medications, I ordered an MRV to evaluation the caliber of the venous sinuses, with potential referral to Dr. Campos thereafter, with whom I discussed her care. At her 01/11/23 virtual visit she reported ongoing transient visual obscurations in the preceding couple of weeks - slowly getting worse. As time went on she noticed progressive worsening. She continued to experience left worse than right-sided pulsatile tinnitus. She could tell that her vision was declining with it. She was pending lumbar puncture on Monday 01/15 arranged by NeuroIR / anesthesia with that being their absolute earliest date available. MRV of the head with and without contrast did not reveal a structural etiology underlying the patient's symptoms. She was still interested in moving forward with a formal angio to determine if there might be a gradient amenable to stenting. This unfortunately did not ultimately show a gradient so stenting was not indicated. She was eager to undergo lumbar puncture 01/15 with removal of CSF to within normal limits and we planned for in clinic thereafter. At her 03/22/23 she reported worsening vision, positional headaches, pulsatile tinnitus, and new diplopia. Her repeat exam did unfortunately show worsened right visual field defect in the setting of increased high false positives with otherwise stable afferent visual pathway function. Efferent function was intact. I placed another order for lumbar puncture with drainage via IR to be scheduled in conjunction with anesthesia since she required MAC. I contacted the provider who performed her pre-anesthesia consult previously to request assistance getting that scheduled and we tried to facilitate (more content not included)... [facility]08-21-[facility] History of Present illness Narrative* Stefano Chacon MD - 07/12/2024 7:16 AM EDT ??This is a telemedicine visit that was performed using the [employer] virtual platform with the originating site at my work office and the distant site at the patient's home. Verbal consent to participatein a combined audio and video visit was obtained. This visit occurred during the Coronavirus (COVID-19) Public Health Emergency. The patient consented to this virtual visit. I discussed with the patient the nature of our telemedicine visits, that: - I would evaluate the patient and recommend diagnostics and treatments based on my assessment - Our sessions are not being recorded and that personal health information is protected - Our team would provide follow up care in person if/when the patient needs it I have communicated my name and active licensure. The patient's identity and physical location wereverified at the time of this visit. Either the patient or their legal patient accounting representative has been informed of the risks and benefits of -- and alternatives to -- treatment through a remote evaluation andconsents to proceed with the evaluation remotely. Lexis Oakes is a 39 year old woman who returns her history of idiopathic intracranial hypertension (IIH). She has had a very complex history of idiopathic intracranial hypertension (IIH) with symptoms that began in 1999 and diagnosis made in 2006 with an opening pressure on lumbar puncture at one point of 40 cm H2O. She underwent CASINO BANKER shunt in 2009 that was infected and removed. She also underwent gastric bypass in 2013. She has been on Topiramate, acetazolamide (diamox), and lasix for the intracranial hypertension. Migraine and pain medications have included Aimovig, nortriptyline, duloxetine, and as needed tramadol. Her history was further complicated by an idiopathic seizure disorder for which she has been on vimpat. At initial consultation 12/22/22 she reported positional headaches, peripheral vision loss, transient visual obscurations, and pulsatile tinnitus. She denied associated diplopia. The patient's weight had been stable. She denied exposure to topical retin-A / accutane and tetracyclines. She had not recently contracted COVID-19. She was undergoing monthly lumbar punctures with it last performed about2 weeks prior initial consultation . She could tell when she required the next as she would experience an increase in all of her symptoms including transient visual obscurations. The patient's ophthalmic history was otherwise notable for a maternal history of glaucoma. The patient's initial neuro-ophthalmic exam 12/22/22 showed blind spot enlargement with superotemporal constriction on the right visual field and otherwise good afferent function. She did have right greater than left borderline ganglion cell loss on OCT in the setting of prior optic disc edema, withonly the appearance of rim fullness by dilated fundus exam and OCT peripapillary retinal nerve fiber layer. Since she had ongoing pulsatile tinnitus and other symptoms suggestive of intracranial hypertension, had required 129 large volume lumbar punctures, did not tolerate the oral medications, I ordered an MRV to evaluation the caliber of the venous sinuses, with potential referral to Dr. Campos thereafter, with whom I discussed her care. At her 01/11/23 virtual visit she reported ongoing transient visual obscurations in the preceding couple of weeks - slowly getting worse. As time went on she noticed progressive worsening. She continued to experience left worse than right-sided pulsatile tinnitus. She could tell that her vision was declining with it. She was pending lumbar puncture on Monday 01/15 arranged by NeuroIR / anesthesia with that being their absolute earliest date available. MRV of the head with and without contrast did not reveal a structural etiology underlying the patient's symptoms. She was still interested in moving forward with a formal angio to determine if there might be a gradient amenable to stenting. This unfortunately did not ultimately show a gradient so stenting was not indicated. She was eager to undergo lumbar puncture 01/15 with removal of CSF to within normal limits and we planned for in clinic thereafter. At her 03/22/23 she reported worsening vision, positional headaches, pulsatile tinnitus, and new diplopia. Her repeat exam did unfortunately show worsened right visual field defect in the setting of increased high false positives with otherwise stable afferent visual pathway function. Efferent function was intact. I placed another order for lumbar puncture with drainage via IR to be scheduled in conjunction withanesthesia since she required MAC. I contacted the provider who performed her pre-anesthesia consult previously to request assistance getting that scheduled and we tried to facilitate scheduling between anesthesia and IR. Finally, I had a glycohemoglobin drawn in the event she would ultimately be a candidate for a GLP1 inhibitor going forward, which was within normal limits. She unfortunately developed a post-lumbar puncture headache after her most recent lumbar puncture -that did have an elevated opening pressure of 37 cm H2O - so she required epidural blood patch placement thereafter. At her 06/28 return visit she reported that the EBP did help but was a painful process. Her repeat exam showed worsening left visual field defect in the setting of of increased visual snow syndrome associated symptoms during testing. There remained no optic disc edema fortunately. That being said, given the burden of symptoms and most recently elevated opening pressure, ideally we would find a better option than monthly lumbar punctures. To that end, we again discussed the potential utility of a GLP-1 inhibitor as per the [place] RCT (PMID: 57709566), which I hoped to discuss with her primary care physician to see if this could be facilitated. The patient was very interested in pursuing this option, even if it were to require weight clinic consultation which we could explore if needed. Her last lumbar puncture on 09/24 had an opening pressure recorded at 38 cm H2O. She unfortunately experienced back pain the day after. At her 09/28/23 clinic return she reported that on Wednesday 09/26 her vision became blurrier on the left (much more significant than the right). She also reported pulsatile tinnitus and transient visual obscurations with bending. She only felt better for about a day after, which was atypical. Repeat exam unfortunately showed progression of a now shauna inferior altitudinal zone defect on theleft with otherwise stable afferent visual pathway function bilaterally and disc appearance, again with nasal fullness and trace gliosis in the setting of mod cup to disc ratios. In this clinical context I ordered a repeat MRI of the brain and orbits with and without contrast. She planned to wait to have her next lumbar puncture until after the MRI to avoid artifact/PME, withan additional order placed for the lumbar puncture with IR with opening pressure and drainage to beperformed in conjunction with anesthesia. Going forward she conveyed her preference to please ensure that the provider performing the lumbar puncture had experience with her case given the complexity. Finally, I explained that I would be happy to provide any supportive documentation for consideration of a GLP-1 inhibitor as noted previously. Repeat neuroimaging was fortunately without acute intracranial pathology. At her 01/03/24 return visit she reported ongoing daily headaches - with a positional component - along with pulsatile tinnitus and transient visual obscurations. Monocular diplopia had occasionally recurred for which artificial tears were advised. Repeat exam showed improvement in the inferior defect on the left visual field - more arcuate appearing than her prior study, remaining overall full on the right. Going forward she was going to plan to increase the time between repeat lumbar punctures given the back pain incurred as a result from them unfortunately; a new order was placed to be performed in conjunction with anesthesia. Her primary care physician re-prescribed the wegovy, which would hopefully be in stock at the pharmacy as it was previously unavailable. Her LP 03/14/24 with OP of 26. LP 04/28/24 with OP of 24. All were performed with anesthesia as requested. At her 05/01 clinic return she reported improvement in her visual symptoms since the last lumbar puncture, again without any improvement in the headaches thereafter. 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 Repeat exam showed increased density of the inferior altitudinal zone defect on the left visual field, with only scattered areas of decreased sensitivity on the unreliable right visual field, with otherwise stable afferent visual pathway. Dilated fundus exam remained without optic disc edema. Sensorimotor exam showed full ocular motility with orthophoria in all directions of gaze tested. Given the concurrent primary headache disorder, I again advised optimization of that regimen with referral to our neurology clinic placed accordingly. Neurology scheduling can be reached at: [phone]. An order for lumbar puncture to be scheduled with anesthesia was additionally placed. Finally, we completed her life insurance form. ASSESSMENT/PLAN: (Z86.69) History of papilledema (R51.9) Headache disorder The 06/07 lumbar puncture had an opening pressure recorded at 25 cm H2O and on 07/11 it was recorded at 38 cm H2O. Today (07/12/2024) she denied any change in vision since last visit. Prior to her 07/12 lumbar puncture she did develop recurrent transient visual obscurations that had since resolved. Positional headaches and pulsatile tinnitus also improved following the last lumbar puncture. She reported back soreness (more than with the last lumbar puncture) and would be receiving injections for that through [facility] (Dr. Abner Graf). She is following up with her new primary care physician and will mention GLP1 inhibition again. We will request her records from the February visit when she established with him and send our notes along. I am happy to discuss the utility of a GLP1 with him. I have otherwise placed orders for additional lumbar punctures to be scheduled with anesthesia since unfortunately there are no current alternative therapies that she has tolerated. I again requested my staff's help getting her set up with the [facility] headache clinic, whose expertise is greatly appreciated. I will plan to see her back in 3 months as previously scheduled, unless concerns arise in the interim, for which she was provided my contact information and encouraged to reach out. ER presentation is otherwise advised for any acute onset neurological deficits. Stefano Chacon MD 8:19 AM 07/12/2024 FOR ADMINISTRATIVE PURPOSES ONLY: My impression of this case is based upon an assessment of the the patient's subacute on chronic problems listed above that pose a threat to visual and neurologic function. 37 minutes were spent on total patient care on the day of service that includes [id number] time and non. The majority of thistime was spent counseling and coordinating care. I communicated with Dr. Davis regarding the management of this patient. The assessment and plan were discussed extensively with the patient who was amenable and voiced understanding. documented [facility] encounter[facility] encounter Note * Telephone Encounter - Delfina Brantley - 06/15/2024 10:42 AM EDT Called patient to get her scheduled, she was on hold with them already to schedule [facility] Work Phone: [phone]) 820-983607-25-2024 Miscellaneous Notes* Telephone Encounter - Delfina Brantley - 06/15/2024 10:42 AM EDT Called patient to get her scheduled, she was on hold with them already to schedule * Telephone Encounter - Delfina Brantley - 06/15/2024 9:45 AM EDT Kirstin I was just wondering if you could order the tap for June. I called IR and the order wasn't in yet. Thank you! Stefano Sheppard MD filed at 05/01/2024 10:14 AM Status: Signed Lexisann Oakes is a 39 year old woman who returns her history of idiopathic intracranial hypertension (IIH). She has had a very complex history of idiopathic intracranial hypertension (IIH) with symptoms that began in 1999 and diagnosis made in 2006 with an opening pressure on lumbar puncture at one point of 40 cm H2O. She underwent CASINO BANKER shunt in 2009 that was infected and removed. She also underwent gastric bypass in 2013. She has been on Topiramate, acetazolamide (diamox), and lasix for the intracranial hypertension. Migraine and pain medications have included Aimovig, nortriptyline, duloxetine, and as needed tramadol. Her history was further complicated by an idiopathic seizure disorder for which she has been on vimpat. At initial consultation 12/22/22 she reported positional headaches, peripheral vision loss, transient visual obscurations, and pulsatile tinnitus. She denied associated diplopia. The patient's weight had been stable. She denied exposure to topical retin-A / accutane and tetracyclines. She had not recently contracted COVID-19. She was undergoing monthly lumbar punctures with it last performed about2 weeks prior initial consultation . She could tell when she required the next as she would experience an increase in all of her symptoms including transient visual obscurations. The patient's ophthalmic history was otherwise notable for a maternal history of glaucoma. The patient's initial neuro-ophthalmic exam 12/22/22 showed blind spot enlargement with superotemporal constriction on the right visual field and otherwise good afferent function. She did have right greater than left borderline ganglion cell loss on OCT in the setting of prior optic disc edema, withonly the appearance of rim fullness by dilated fundus exam and OCT peripapillary retinal nerve fiber layer. Since she had ongoing pulsatile tinnitus and other symptoms suggestive of intracranial hypertension, had required 129 large volume lumbar punctures, did not tolerate the oral medications, I ordered an MRV to evaluation the caliber of the venous sinuses, with potential referral to Dr. Campos thereafter, with whom I discussed her care. At her 01/11/23 virtual visit she reported ongoing transient visual obscurations in the preceding couple of weeks - slowly getting worse. As time went on she noticed progressive worsening. She continued to experience left worse than right-sided pulsatile tinnitus. She could tell that her vision was declining with it. She was pending lumbar puncture on Monday 01/15 arranged by NeuroIR / anesthesia with that being their absolute earliest date available. MRV of the head with and without contrast did not reveal a structural etiology underlying the patient's symptoms. She was still interested in moving forward with a formal angio to determine if there might be a gradient amenable to stenting. This unfortunately did not ultimately show a gradient so stenting was not indicated. She was eager to undergo lumbar puncture 01/15 with removal of CSF to within normal limits and we planned for in clinic thereafter. At her 03/22/23 she reported worsening vision, positional headaches, pulsatile tinnitus, and new diplopia. Her repeat exam did unfortunately show worsened right visual field defect in the setting of increased high false positives with otherwise stable afferent visual pathway function. Efferent function was intact. I placed another order for lumbar puncture with drainage via IR to be scheduled in conjunction withanesthesia since she required MAC. I contacted the provider who performed her pre-anesthesia consult previously to request assistance getting that scheduled and we tried to facilitate scheduling between anesthesia and IR. Finally, I had a glycohemoglobin drawn in the event she would ultimately be a candidate for a GLP1 inhibitor going forward, which was within normal limits. She unfortunately developed a post-lumbar puncture headache after her most recent lumbar puncture -that did have an elevated opening pressure of 37 cm H2O - so she required epidural blood patch placement thereafter. At her 06/28 return visit she reported that the EBP did help but was a painful process. Her repeat exam showed worsening left visual field defect in the setting of of increased visual snow syndrome associated symptoms during testing. There remained no optic disc edema fortunately. That being said, given the burden of symptoms and most recently elevated opening pressure, ideally we would find a better option than monthly lumbar punctures. To that end, we again discussed the potential utility of a GLP-1 inhibitor as per the [place] RCT (PMID: [id number]), which I hoped to discuss with her primary care physician to see if this could be facilitated. The patient was very interested in pursuing this option, even if it were to require weight clinic consultation which we could explore if needed. Her last lumbar puncture on 09/24 had an opening pressure recorded at 38 cm H2O. She unfortunately experienced back pain the day after. At her 09/28/23 clinic return she reported that on Wednesday 09/26 her vision became blurrier on the left (much more significant than the right). She also reported pulsatile tinnitus and transient visual obscurations with bending. She only felt better for about a day after, which was atypical. Repeat exam unfortunately showed progression of a now shauna inferior altitudinal zone defect on theleft with otherwise stable afferent visual pathway function bilaterally and disc appearance, again with nasal fullness and trace gliosis in the setting of mod cup to disc ratios. In this clinical context I ordered a repeat MRI of the brain and orbits with and without contrast. She planned to wait to have her next lumbar puncture until after the MRI to avoid artifact/PME, withan additional order placed for the lumbar puncture with IR with opening pressure and drainage to beperformed in conjunction with anesthesia. Going forward she conveyed her preference to please ensure that the provider performing the lumbar puncture had experience with her case given the complexity. Finally, I explained that I would be happy to provide any supportive documentation for consideration of a GLP-1 inhibitor as noted previously. Repeat neuroimaging was fortunately without acute intracranial pathology. At her 01/03/24 return visit she reported ongoing daily headaches - with a positional component - along with pulsatile tinnitus and transient visual obscurations. Monocular diplopia had occasionally recurred for which artificial tears were advised. Repeat exam showed improvement in the inferior defect on the left visual field - more arcuate appearing than her prior study, remaining overall full on the right. Going forward she was going to plan to increase the time between repeat lumbar punctures given the back pain incurred as a result from them unfortunately; a new order was placed to be performed in conjunction with anesthesia. Her primary care physician re-prescribed the wegovy, which would hopefully be in stock at the pharmacy as it was previously unavailable. ASSESSMENT/PLAN: (G93.2) IIH (idiopathic intracranial hypertension) (primary encounter diagnosis) (H53.453) Other localized visual field defect, bilateral (Z86.69) History of papilledema (R51.9) Headache disorder Her LP 03/14/24 with OP of 26. LP 04/28/24 with OP of 24. All have been performed with anesthesia as requested. Today (May 01, 2024) she reported improvement in her visual symptoms since the last lumbar puncture, again without any improvement in the headaches thereafter. 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 Today's repeat exam showed increased density of the inferior altitudinal zone defect on the left visual field, with only scattered areas of decreased sensitivity on the unreliable right visual field,with otherwise stable afferent visual pathway. Dilated fundus exam remained without optic disc edema. Sensorimotor exam showed full ocular motility with orthophoria in all directions of gaze tested. Given the concurrent primary headache disorder I again advised optimization of that regimen with referral to our neurology clinic placed accordingly, whose expertise is greatly appreciated. Neurologyscheduling can be reached at: [phone]. An order for lumbar puncture to be scheduled with anesthesia was additionally placed. Finally, we will complete her life insurance form. I will plan to see her back in 5 months, unless concerns arise in the interim, for which she was provided my contact information and encouraged to reach out. ER presentation is otherwise advised for any acute onset neurological deficits. I have confirmed and edited as necessary the relevant ophthalmic history, ROS, and the neuro exam findings as obtained by others. I have seen and examined Lexis Nguyen. I have discussed the case and the management of this patient's care with the Resident/Fellow, if applicable. I also have reviewed and agree with the assessment and plan as stated above and agree withall of its relevant components. Stefano Chacon MD 10:13 AM 05/01/2024 documented in this encounterProm[facility] Telephone encounter Note * Telephone Encounter - Delfina Brantley - 06/15/2024 9:45 AM EDT Jessicasammy I was just wondering if you could order the tap for June. I called IR and the order wasn't in yet. Thank you! Stefano Sheppard MD filed at 05/01/2024 10:14 AM Status: Signed Lexis Oakes is a 39 year old woman who returns her history of idiopathic intracranial hypertension (IIH). She has had a very complex history of idiopathic intracranial hypertension (IIH) with symptoms that began in 1999 and diagnosis made in 2006 with an opening pressure on lumbar puncture at one point of 40 cm H2O. She underwent CASINO BANKER shunt in 2009 that was infected and removed. She also underwent gastric bypass in 2013. She has been on Topiramate, acetazolamide (diamox), and lasix for the intracranial hypertension. Migraine and pain medications have included Aimovig, nortriptyline, duloxetine, and as needed tramadol. Her history was further complicated by an idiopathic seizure disorder for which she has been on vimpat. At initial consultation 12/22/22 she reported positional headaches, peripheral vision loss, transient visual obscurations, and pulsatile tinnitus. She denied associated diplopia. The patient's weight had been stable. She denied exposure to topical retin-A / accutane and tetracyclines. She had not recently contracted COVID-19. She was undergoing monthly lumbar punctures with it last performed about2 weeks prior initial consultation . She could tell when she required the next as she would experience an increase in all of her symptoms including transient visual obscurations. The patient's ophthalmic history was otherwise notable for a maternal history of glaucoma. The patient's initial neuro-ophthalmic exam 12/22/22 showed blind spot enlargement with superotemporal constriction on the right visual field and otherwise good afferent function. She did have right greater than left borderline ganglion cell loss on OCT in the setting of prior optic disc edema, withonly the appearance of rim fullness by dilated fundus exam and OCT peripapillary retinal nerve fiber layer. Since she had ongoing pulsatile tinnitus and other symptoms suggestive of intracranial hypertension, had required 129 large volume lumbar punctures, did not tolerate the oral medications, I ordered an MRV to evaluation the caliber of the venous sinuses, with potential referral to Dr. Campos thereafter, with whom I discussed her care. At her 01/11/23 virtual visit she reported ongoing transient visual obscurations in the preceding couple of weeks - slowly getting worse. As time went on she noticed progressive worsening. She continued to experience left worse than right-sided pulsatile tinnitus. She could tell that her vision was declining with it. She was pending lumbar puncture on Monday 01/15 arranged by NeuroIR / anesthesia with that being their absolute earliest date available. MRV of the head with and without contrast did not reveal a structural etiology underlying the patient's symptoms. She was still interested in moving forward with a formal angio to determine if there might be a gradient amenable to stenting. This unfortunately did not ultimately show a gradient so stenting was not indicated. She was eager to undergo lumbar puncture 01/15 with removal of CSF to within normal limits and we planned for in clinic thereafter. At her 03/22/23 she reported worsening vision, positional headaches, pulsatile tinnitus, and new diplopia. Her repeat exam did unfortunately show worsened right visual field defect in the setting of increased high false positives with otherwise stable afferent visual pathway function. Efferent function was intact. I placed another order for lumbar puncture with drainage via IR to be scheduled in conjunction withanesthesia since she required MAC. I contacted the provider who performed her pre-anesthesia consult previously to request assistance getting that scheduled and we tried to facilitate scheduling between anesthesia and IR. Finally, I had a glycohemoglobin drawn in the event she would ultimately be a candidate for a GLP1 inhibitor going forward, which was within normal limits. She unfortunately developed a post-lumbar puncture headache after her most recent lumbar puncture -that did have an elevated opening pressure of 37 cm H2O - so she required epidural blood patch placement thereafter. At her 06/28 return visit she reported that the EBP did help but was a painful process. Her repeat exam showed worsening left visual field defect in the setting of of increased visual snow syndrome associated symptoms during testing. There remained no optic disc edema fortunately. That being said, given the burden of symptoms and most recently elevated opening pressure, ideally we would find a better option than monthly lumbar punctures. To that end, we again discussed the potential utility of a GLP-1 inhibitor as per the [place] RCT (PMID: [id number]), which I hoped to discuss with her primary care physician to see if this could be facilitated. The patient was very interested in pursuing this option, even if it were to require weight clinic consultation which we could explore if needed. Her last lumbar puncture on 09/24 had an opening pressure recorded at 38 cm H2O. She unfortunately experienced back pain the day after. At her 09/28/23 clinic return she reported that on Wednesday 09/26 her vision became blurrier on the left (much more significant than the right). She also reported pulsatile tinnitus and transient visual obscurations with bending. She only felt better for about a day after, which was atypical. Repeat exam unfortunately showed progression of a now shauna inferior altitudinal zone defect on theleft with otherwise stable afferent visual pathway function bilaterally and disc appearance, again with nasal fullness and trace gliosis in the setting of mod cup to disc ratios. In this clinical context I ordered a repeat MRI of the brain and orbits with and without contrast. She planned to wait to have her next lumbar puncture until after the MRI to avoid artifact/PME, withan additional order placed for the lumbar puncture with IR with opening pressure and drainage to beperformed in conjunction with anesthesia. Going forward she conveyed her preference to please ensure that the provider performing the lumbar puncture had experience with her case given the complexity. Finally, I explained that I would be happy to provide any supportive documentation for consideration of a GLP-1 inhibitor as noted previously. Repeat neuroimaging was fortunately without acute intracranial pathology. At her 01/03/24 return visit she reported ongoing daily headaches - with a positional component - along with pulsatile tinnitus and transient visual obscurations. Monocular diplopia had occasionally recurred for which artificial tears were advised. Repeat exam showed improvement in the inferior defect on the left visual field - more arcuate appearing than her prior study, remaining overall full on the right. Going forward she was going to plan to increase the time between repeat lumbar punctures given the back pain incurred as a result from them unfortunately; a new order was placed to be performed in conjunction with anesthesia. Her primary care physician re-prescribed the wegovy, which would hopefully be in stock at the pharmacy as it was previously unavailable. ASSESSMENT/PLAN: (G93.2) IIH (idiopathic intracranial hypertension) (primary encounter diagnosis) (H53.453) Other localized visual field defect, bilateral (Z86.69) History of papilledema (R51.9) Headache disorder Her LP 03/14/24 with OP of 26. LP 04/28/24 with OP of 24. All have been performed with anesthesia as requested. Today (May 01, 2024) she reported improvement in her visual symptoms since the last lumbar puncture, again without any improvement in the headaches thereafter. 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 Today's repeat exam showed increased density of the inferior altitudinal zone defect on the left visual field, with only scattered areas of decreased sensitivity on the unreliable right visual field,with otherwise stable afferent visual pathway. Dilated fundus exam remained without optic disc edema. Sensorimotor exam showed full ocular motility with orthophoria in all directions of gaze tested. Given the concurrent primary headache disorder I again advised optimization of that regimen with referral to our neurology clinic placed accordingly, whose expertise is greatly appreciated. Neurologyscheduling can be reached at: [phone]. An order for lumbar puncture to be scheduled with anesthesia was additionally placed. Finally, we will complete her life insurance form. I will plan to see her back in 5 months, unless concerns arise in the interim, for which she was provided my contact information and encouraged to reach out. ER presentation is otherwise advised for any acute onset neurological deficits. I have confirmed and edited as necessary the relevant ophthalmic history, ROS, and the neuro exam findings as obtained by others. I have seen and examined Lexis Nguyen. I have discussed the case and the management of this patient's care with the Resident/Fellow, if applicable. I also have reviewed and agree with the assessment and plan as stated above and agree withall of its relevant components. Stefano Chacon MD 10:13 AM 05/01/2024 [facility]06-10-2024 NoteDate of Procedure 05/01/2024. General Engineering Teacher Information Donor Floor Technician: KERVIN. Start time: 8:19 AM. Stop time: 8:31 AM. I did ask if patient is allergic to adhesive or Bandages. Patient Said:NO . Reliability Right Eye Poor. Left Eye Good. Interpretation Right Eye Non-specific defect. Left Eye Altitudinal defect. Interval Change Right Eye Stable. Left Eye Worse. Notes Automated ([place]) visual field testing was performed using the 24-2 KWES[employer] fast testing strategy. A copy of the visual mauricio will be uploaded to the electronic medical record's imaging system. OD: Reliability: 11/29 Fixation Losses, 18% False Positives, 0% False Negatives Pattern: scattered areas of decreased sensitivity with excessive high false positives Mean Deviation: -0.32 (from 01/03/24: 1.09; 09/28: 0.78; 06/28: 0.76; 03/22/23: -3.2; 12/22/22: -1.27) OS: Reliability: 0 Fixation Losses, 0% False Positives, 13% False Negatives Pattern: inferior altitudinal zone defect Mean Deviation: -12.98 (from 01/03/24: -8.97; 09/28: -14.11; 06/28 -7.68; 03/22/23: -0.60; 12/22/22: -0.02) [id number] NoteDate of Procedure 05/01/2024. NFL Interpretation Right Eye Superior loss. Ganglion Cell Layer Thickness Right Eye Diffuse loss. Left Eye Temporal loss. Interval Change Right Eye Stable. Left Eye Stable. Notes OCT: OD: normal average pRNFL thickness (average: 81 from 01/03/24: 82; 09/28: 80; 06/28: 83; 03/22/23: 82; 12/22/22: 82); ganglion cell loss - near diffuse (average GCL +IPL thickness of: 71 from 01/03/24: 71; 09/28: 72; 06/28: 72; 03/22/23: 71; 12/22/22: 72) OS: normal average pRNFL thickness (average: 83 from 01/03/24: 82; 09/28: 82; 06/28: 85; 03/22/23: 85; 12/22/22: 85); ganglion cell loss - scattered (average GCL +IPL thickness of: 74 from 01/03/24: 73; 09/28: 73; 06/28: 74; 03/22/23: 74; 12/22/22: 74)[id number] History of Present illness Narrative* Stefano Chacon MD - 05/01/2024 9:04 AM EDT Lexis Oakes is a 39 year old woman who returns her history of idiopathic intracranial hypertension (IIH). She has had a very complex history of idiopathic intracranial hypertension (IIH) with symptoms that began in 1999 and diagnosis made in 2006 with an opening pressure on lumbar puncture at one point of 40 cm H2O. She underwent CASINO BANKER shunt in 2009 that was infected and removed. She also underwent gastric bypass in 2013. She has been on Topiramate, acetazolamide (diamox), and lasix for the intracranial hypertension. Migraine and pain medications have included Aimovig, nortriptyline, duloxetine, and as needed tramadol. Her history was further complicated by an idiopathic seizure disorder for which she has been on vimpat. At initial consultation 12/22/22 she reported positional headaches, peripheral vision loss, transient visual obscurations, and pulsatile tinnitus. She denied associated diplopia. The patient's weight had been stable. She denied exposure to topical retin-A / accutane and tetracyclines. She had not recently contracted COVID-19. She was undergoing monthly lumbar punctures with it last performed about2 weeks prior initial consultation . She could tell when she required the next as she would experience an increase in all of her symptoms including transient visual obscurations. The patient's ophthalmic history was otherwise notable for a maternal history of glaucoma. The patient's initial neuro-ophthalmic exam 12/22/22 showed blind spot enlargement with superotemporal constriction on the right visual field and otherwise good afferent function. She did have right greater than left borderline ganglion cell loss on OCT in the setting of prior optic disc edema, withonly the appearance of rim fullness by dilated fundus exam and OCT peripapillary retinal nerve fiber layer. Since she had ongoing pulsatile tinnitus and other symptoms suggestive of intracranial hypertension, had required 129 large volume lumbar punctures, did not tolerate the oral medications, I ordered an MRV to evaluation the caliber of the venous sinuses, with potential referral to Dr. aCmpos thereafter, with whom I discussed her care. At her 01/11/23 virtual visit she reported ongoing transient visual obscurations in the preceding couple of weeks - slowly getting worse. As time went on she noticed progressive worsening. She continued to experience left worse than right-sided pulsatile tinnitus. She could tell that her vision was declining with it. She was pending lumbar puncture on Monday 01/15 arranged by NeuroIR / anesthesia with that being their absolute earliest date available. MRV of the head with and without contrast did not reveal a structural etiology underlying the patient's symptoms. She was still interested in moving forward with a formal angio to determine if there might be a gradient amenable to stenting. This unfortunately did not ultimately show a gradient so stenting was not indicated. She was eager to undergo lumbar puncture 01/15 with removal of CSF to within normal limits and we planned for in clinic thereafter. At her 03/22/23 she reported worsening vision, positional headaches, pulsatile tinnitus, and new diplopia. Her repeat exam did unfortunately show worsened right visual field defect in the setting of increased high false positives with otherwise stable afferent visual pathway function. Efferent function was intact. I placed another order for lumbar puncture with drainage via IR to be scheduled in conjunction withanesthesia since she required MAC. I contacted the provider who performed her pre-anesthesia consult previously to request assistance getting that scheduled and we tried to facilitate scheduling between anesthesia and IR. Finally, I had a glycohemoglobin drawn in the event she would ultimately be a candidate for a GLP1 inhibitor going forward, which was within normal limits. She unfortunately developed a post-lumbar puncture headache after her most recent lumbar puncture -that did have an elevated opening pressure of 37 cm H2O - so she required epidural blood patch placement thereafter. At her 06/28 return visit she reported that the EBP did help but was a painful process. Her repeat exam showed worsening left visual field defect in the setting of of increased visual snow syndrome associated symptoms during testing. There remained no optic disc edema fortunately. That being said, given the burden of symptoms and most recently elevated opening pressure, ideally we would find a better option than monthly lumbar punctures. To that end, we again discussed the potential utility of a GLP-1 inhibitor as per the [place] RCT (PMID: 27136491), which I hoped to discuss with her primary care physician to see if this could be facilitated. The patient was very interested in pursuing this option, even if it were to require weight clinic consultation which we could explore if needed. Her last lumbar puncture on 09/24 had an opening pressure recorded at 38 cm H2O. She unfortunately experienced back pain the day after. At her 09/28/23 clinic return she reported that on Wednesday 09/26 her vision became blurrier on the left (much more significant than the right). She also reported pulsatile tinnitus and transient visual obscurations with bending. She only felt better for about a day after, which was atypical. Repeat exam unfortunately showed progression of a now shauna inferior altitudinal zone defect on theleft with otherwise stable afferent visual pathway function bilaterally and disc appearance, again with nasal fullness and trace gliosis in the setting of mod cup to disc ratios. In this clinical context I ordered a repeat MRI of the brain and orbits with and without contrast. She planned to wait to have her next lumbar puncture until after the MRI to avoid artifact/PME, withan additional order placed for the lumbar puncture with IR with opening pressure and drainage to beperformed in conjunction with anesthesia. Going forward she conveyed her preference to please ensure that the provider performing the lumbar puncture had experience with her case given the complexity. Finally, I explained that I would be happy to provide any supportive documentation for consideration of a GLP-1 inhibitor as noted previously. Repeat neuroimaging was fortunately without acute intracranial pathology. At her 01/03/24 return visit she reported ongoing daily headaches - with a positional component - along with pulsatile tinnitus and transient visual obscurations. Monocular diplopia had occasionally recurred for which artificial tears were advised. Repeat exam showed improvement in the inferior defect on the left visual field - more arcuate appearing than her prior study, remaining overall full on the right. Going forward she was going to plan to increase the time between repeat lumbar punctures given the back pain incurred as a result from them unfortunately; a new order was placed to be performed in conjunction with anesthesia. Her primary care physician re-prescribed the wegovy, which would hopefully be in stock at the pharmacy as it was previously unavailable. ASSESSMENT/PLAN: (G93.2) IIH (idiopathic intracranial hypertension) (primary encounter diagnosis) (H53.453) Other localized visual field defect, bilateral (Z86.69) History of papilledema (R51.9) Headache disorder Her LP 03/14/24 with OP of 26. LP 04/28/24 with OP of 24. All have been performed with anesthesia as requested. Today (May 01, 2024) she reported improvement in her visual symptoms since the last lumbar puncture, again without any improvement in the headaches thereafter. 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 Today's repeat exam showed increased density of the inferior altitudinal zone defect on the left visual field, with only scattered areas of decreased sensitivity on the unreliable right visual field,with otherwise stable afferent visual pathway. Dilated fundus exam remained without optic disc edema. Sensorimotor exam showed full ocular motility with orthophoria in all directions of gaze tested. Given the concurrent primary headache disorder I again advised optimization of that regimen with referral to our neurology clinic placed accordingly, whose expertise is greatly appreciated. Neurologyscheduling can be reached at: [phone]. An order for lumbar puncture to be scheduled with anesthesia was additionally placed. Finally, we will complete her life insurance form. I will plan to see her back in 5 months, unless concerns arise in the interim, for which she was provided my contact information and encouraged to reach out. ER presentation is otherwise advised for any acute onset neurological deficits. I have confirmed and edited as necessary the relevant ophthalmic history, ROS, and the neuro exam findings as obtained by others. I have seen and examined Lexis Nguyen. I have discussed the case and the management of this patient's care with the Resident/Fellow, if applicable. I also have reviewed and agree with the assessment and plan as stated above and agree withall of its relevant components. Stefano Chacon MD 10:13 AM 05/01/2024 FOR ADMINISTRATIVE PURPOSES ONLY: My impression of this case is based upon an assessment of the patient's subacute on chronic problems listed above that pose a threat to visual and neurologic function. 45 minutes were spent on total patient care on the day of service that includes both [id number]-dp-[id number] and enp-btsa-ka-face time. This time was separate from any of my time spent completing and interpreting the ancillary testing (such as OCT, fundus photos, visual mauricio) and sensorimotor exam, if applicable. This time was broken downinto: 5 minutes reviewing the patient record before the visit, 10 minutes performing a medically appropriate neuro- ophthalmic history and exam (excluding time spent on the ancillary testing and sensorimotor exam, if applicable), 5 communicating results to the patient/family, 11 minutes counseling /educating the patient, 5 minutes documenting clinical information into the electronic health recordof the patient, 3 minutes ordering tests/medications/procedures, and 6 minutes coordinating care for the patient. I communicated with Dr. Jasso regarding the management of this patient. The assessment and plan were discussed extensively with the patient who was amenable and voiced understanding. documented in this encounterProm[facility]04-[facility] Instructions* Patient Instructions* Saniya Persaud, SALES PROFESSIONAL BILINGUAL.SENIOR SOUS CHEF - 03/03/2024 7:42 AM EDT PATIENT PREOPERATIVE INSTRUCTIONS Stefano Chacon MD has scheduled you for your procedure at this surgery center: If no call by 4pm theday before surgery, please call this number. [facility] [place] [facility] Scheduling Office: [phone] --[address] [place] [address]. Please read below carefully for your personalized instructions. Dietary Restrictions: - Nothing to eat or drink after midnight except for a sip of water with approved medications. - Do not drink any alcohol after midnight the night before your surgery. Medications: Unless instructed differently below, stay on all of your medications until your surgery. If you start any new medications after today's visit, please contact your surgeon. Pre-Surgery Med Instructions Medication Instructions omeprazole (PRILOSEC) 20 mg capsule Take the day of surgery with a small sip of water traMADol (ULTRAM) 50 mg tablet Ok to take morning of surgery if needed cyanocobalamin (VITAMIN B-12) 1,000 mcg tab Stop 7 days before surgery lacosamide (VIMPAT) 200 mg Take the day of surgery with a small sip of water ARIPiprazole (ABILIFY) 10 mg tablet Take the day of surgery with a small sip of water nortriptyline (PAMELOR) 75 mg capsule Take the day of surgery with a small sip of water DULoxetine (CYMBALTA) 60 mg capsule Take the day of surgery with a small sip of water Calcium Citrate 250 mg calcium tab Stop 7 days before surgery If you start any new medications after today's visit, please contact the surgeon's office. Blood Thinning Medications: - Stop NSAIDS (Ibuprofen, Advil, Aleve, Motrin, Celebrex, Mobic, etc.) 7 days before surgery, as directed by your surgeon. - Stop Aspirin 7 days before surgery, as directed by your surgeon. - Stop Vitamin E, ALL multi-vitamins, herbals and dietary supplements 7 days before surgery. - You may take Tylenol (Acetaminophen) or any of your pain medications that do not contain aspirin or NSAIDS as needed. Important Reminders: - Candy, mints, and tobacco products are NOT permitted the morning of surgery. - Hearing aids, dentures and glasses may be worn the morning of surgery. - NO jewelry, body piercings, makeup, hairpins or contacts are to be worn the day of surgery. If you develop symptoms such as a fever, cold, or flu, or have other changes to your health within TWO DAYS of scheduled surgery or the morning of surgery, please contact the surgery center above. Personal Belongings: -Please have photo ID and insurance cards. -If you do not have a copy of advance directives on file with us, please bring a copy with you on the day of surgery. - Leave ALL valuables and money at home or with family members. For Outpatient Procedures: - YOU MUST HAVE A RESPONSIBLE ASSAULT AMPHIBIOUS VEHICLE CREWMAN TAKE YOU HOME. 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 - We recommend that a responsible person stays with you overnight to take care of you. - You cannot stay in a hotel alone after outpatient surgery. You will not be permitted to have yoursurgery, if you do not have someone to take care of you. Arrival Time for Surgery: - To obtain your arrival time for surgery, call your physician's office the day before your surgery. - If your surgery is scheduled for Wednesday, call the Wednesday before. Your surgeon s scheduler maintenance will tell you what time to call the office. - If you have not reached the departmental scheduler maintenance by 5 P.M., call [phone] after 5 P.M. the day before your surgery. Please be aware that emergency situations arise, which may delay or change your surgical time. If this happens, we will notify you as soon as possible and regret any inconvenience. If you already have an Advance Directive, please fax a copy to [phone] or email to for it to be added to your chart. If you do not have an Advance Directive, you can find the appropriate form and more information at [email or web address]. We recommend that youcomplete the Advance Directive form found on the website and bring it with you the day of your surgery. It can be witnessed and scanned into your chart that day. Saniya Persaud APRN.CNP documented in this encounterPromedica [facility]04-12-[facility] History and physical note * Saniya Persaud APRN.CNP - 03/03/2024 7:20 AM EDT HISTORY AND PHYSICAL EXAMINATION SERVICE DATE: 03/03/2024 SERVICE TIME: 7:33 AM PRIMARY CARE PHYSICIAN: Yan Jasso, Assessment Patient has the following medical conditions which may affect david-operative course: Morbid obesity with BMI of 45.0-49.9, adult (HCC) BMI 48.63 S/P gastric bypass Strict NPO for DOS Gastroesophageal reflux disease - Managed with Omeprazole Difficult intravenous access History of midline DOS midline consult placed Epilepsy (HCC) Managed on vimpat and medical marijuana - last seizure February 2023 IIH (idiopathic intracranial hypertension) -has had 141 lumbar punctures -scheduled for surgery 03/14/24 Anxiety Managed on abilify, cymbalta Higgins Activity Status Index: METS: Climb a flight of stairs or walk up a hill (5.50 METs) DASI Score: 5.5 Patient denies any chest pain or undue shortness of breath with the above physical activity. Clinical Frailty Scale: 3. Well, with treated comorbid disease STOP-Bang Score: BMI greater than 35 kg/m^2 Denies snoring loudly Denies feeling tired, fatigued, or sleepy during the daytime Has not been observed to stop breathing or choking/gasping during sleep Denies having high blood pressure Patient 50 years old or younger Does not have a large neck Non-male patient STOP-Bang Score: 1 (History of sleep study prior to gastric bypass surgery and testing negative) ANESTHESIA FINDINGS: Intubation History: No history of difficult intubation. No abnormal airway history Significant Anesthesia Considerations: diff IV access, patient requires midline potential difficult IV/vein access Airway History: No history of difficult airway No abnormal airway history I - PHYSICAL EVALUATION AIRWAY Patient intubated: No. Tracheostomy tube not present TM distance: >3 FB. Mouth opening: adequate. Short neck: yes. Thick neck: yes Microretrognathia/Micronagthia/Recessed Chin: No DENTAL Dental findings: missing tooth/teeth. Additional comments: crowns Front upper and lower teeth 'worn down' . II - ANESTHESIA PLAN Anesthetic plan additional comments: *[facility]I - anesthesia choice. Beta Poncho Monitoring Plan Post Procedure Analgesic Plan Prepared for Surgery: optimally prepared for surgery. CONSULTS: Patient does not require consults for optimization at this time Planned Anesthetic: anesthesia choice The Following Tests/Procedures Have Been Initiated: No orders of the defined types were placed in this encounter. REASON FOR VISIT: Lexis Nguyen is a 39 year old female who is scheduled for Procedure(s) with comments: SPINAL PUNCTURE LUMBAR DIAGNOSTIC (N/A) - LP DIAG W/TABBY PT CALLED tm/dt ok per bill 02/23 at the request of Dr. Dr. Chapo Chaconfor consultation. My final recommendation will be communicated back to the requesting physician by way of shared medical record or letter. Subjective The patient has the following: ACTIVE PROBLEM LIST Anxiety Epilepsy (Hcc) Gastroesophageal Reflux Disease Major Depression, Single Episode Morbid Obesity (Hcc) Iih (Idiopathic Intracranial Hypertension) Difficult Intravenous Access Morbid Obesity With Bmi of 45.0-49.9, Adult (Hcc) Idiopathic Intracranial Hypertension Headaches S/P Gastric Bypass Medical Marijuana Use Exhausted Vascular Access Pre-Op Evaluation COVID-19 Immunization Status Covid-19 Vaccine (Series Information) Completed 10/25/2023 Imm Admin: COVID-19 vaccine, age 12+ yr, 2022- season (MODERNA) 09/01/2022 Imm Admin: COVID-19 vaccine, age 12+ yr, bivalent ([employer] 04/02/2021 Imm Admin: COVID-19 original vaccine, full dose, monovalent (MODERNA) Only the first 3 history entries have been loaded, but more history exists. CHIEF COMPLAINT: Idiopathic intracranial hypertension HPI: Patient is a 38 year old female presenting to [facility]; has c/o idiopathic intracranial hypertension. She receives regular lumbar punctures for management. Patient denies recent fevers, chills, unexplained weight loss, shortness of breath or chest pain. The above surgery was recommended; patient has elected to proceed. REVIEW OF SYSTEMS: General: Morbid obesity. No weight loss, malaise or fevers. Neurological: See HPI. 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 Negative for: TIA and strokes. Respiratory: No history of current cough or dyspnea, or pneumonia in the past 6 weeks. No history of respiratory/pulmonary symptoms or problems. Cardiovascular: No history of HTN requiring medication, no history of angina, CHF, [place], cardiac surgery or stents. Denies rest pain, gangrene or revascularization/amputation for PVD. No history of cardiovascular symptoms or problems. GI: S/p gastric bypass. Positive for: GERD (omeprazole) Negative for: abdominal pain, liver disease, nausea and vomiting. : No history of dysuria, frequency or incontinence, stones or chronic kidney disease. No difficulty urinating, nocturia > 1 time per night or hematuria. 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 Endocrine: No history of diabetes. Has not taken steroids within the past 30 days. No history of endocrinological symptoms or problems. Hematology: No history of bleeding or clotting disorder. Patient is not taking anti-coagulation or platelet medications. No history of hematological symptoms or problems. Oncology: No history of CA metastasis, chemo within 30 days, or radiotherapy within 90 days. No history of oncological symptoms or problems. Psych: Positive for: anxiety, depression (abilify, cymbalta) and drug dependency (marijuana use). Musculoskeletal: Positive for: back pain (lower). Skin: Negative for lesions, rash and itching. PAST MEDICAL HISTORY Diagnosis Date Difficult intravenous access 02/16/2023 Epilepsy (HCC) IIH (idiopathic intracranial hypertension) PAST SURGICAL HISTORY Procedure Laterality Date APPENDIX NET-EXCIS(APPENDECTOMY)SYNOPTIC 2007 GASTRIC BYPASS HX 2014 HYSTERECTOMY 2021 MIDLINE INSERTION/CONSULT 07/28/2023 MIDLINE INSERTION/CONSULT 12/14/2023 MIDLINE INSERTION/CONSULT 02/01/2024 PAST SURGICAL HISTORY OF 2019 collar bone fracture (hardware placement and removal) PAST SURGICAL HISTORY OF lumbar punctures (142) PAST SURGICAL HISTORY OF 02/2023 brain angiogram PAST SURGICAL HISTORY OF 2009 CASINO BANKER Shunt - removed in 2009 due to infection REMOVAL GALLBLADDER 2014 TONSILLECTOMY HX 2005 FAMILY HISTORY Problem Relation Age of Onset COPD Mother Diabetes Father Ischemic Heart Disease Father Stroke Father Skin Cancer Father Difficulty with anesthesia No Family History Anesthesia Problems No Family History Social History Tobacco Use Smoking status: Never Passive exposure: Never Smokeless tobacco: Never Substance Use Topics Alcohol use: Yes Comment: Rare Drug use: Yes Frequency: 7.0 times per week Comment: medical marijuana-vaping(last used 03/02/2024) per pt 03/03/2024 Prior to Admission medications as of 03/03/24 0735 Medication Sig Last Dose Taking omeprazole (PRILOSEC) 20 mg capsule Take 1 capsule by mouth once daily. Taking Yes traMADol (ULTRAM) 50 mg tablet Take 1 tablet by mouth twice daily as needed for pain. Taking Yes cyanocobalamin (VITAMIN B-12) 1,000 mcg tab Take 1 tablet by mouth once daily. Taking Yes lacosamide (VIMPAT) 200 mg Take 1 tablet by mouth twice daily. Taking Yes ARIPiprazole (ABILIFY) 10 mg tablet Take 10 mg by mouth once daily. Taking Yes nortriptyline (PAMELOR) 75 mg capsule Take 25 mg by mouth once daily. Taking Differently Yes DULoxetine (CYMBALTA) 60 mg capsule duloxetine 60 mg capsule,delayed release TAKE 1 CAPSULE BY MOUTH TWICE DAILY Taking Yes Calcium Citrate 250 mg calcium tab Take 1 tablet by mouth once daily. Taking Yes lidocaine, PF, (XYLOCAINE) 10 mg/mL (1 %) soln injection 1-10 mL by INTRADERMAL route as needed. For use during PICC/Midline Insertion ONLY. No medication comments found. ALLERGIES Allergen Reactions Nsaids (Non-Steroid* GI Upset, Contraindication-Medical Surgical Because of gastric bypass Cavanaugh Pepper Rash Gabapentin Mental Status Change, Other: See Comments Tremors Penicillins Hives, Rash Received IV cefazolin at [facility] in 2018 and 2020 prior to procedures Received IV cefazolin at [facility] in 2018 and 2020 prior to procedures Objective PHYSICAL EXAM: General: alert and oriented, healthy appearance and morbidly obese. Pertinent negatives noted - notdistressed. Skin: normal color, no rash or lesions. HEENT: EOM intact and pupils equal round. Cardiovascular: regular rate and rhythm, normal S1 and S2, no rub, murmurs, or gallop. Respiratory: normal breath sounds, no wheezes or crackles. No chest wall deformity or tenderness. Abdomen: bowel sounds present and soft. Pertinent negatives noted - not tender. Extremities: no deformity, no edema or tenderness, no joint swelling or clubbing. Neurological: normal cognition and motor skills. Gait normal. No weakness or sensory deficit. PAIN ASSESSMENT: Pain Pain Level: 8 Pain Location: Head Description: Pressure Duration Amount of Time: 10 Duration Units: Years Frequency: Continuous Intervention/Comfort measure: Medication VITALS: BP 119/87 Pulse 100 Temp (Src) 97.5 (Oral) Ht 5' 4 (1.63m) Wt 283 lb 4.7 oz (128.5kg) SpO2 100% BMI 48.60 kg/(m^2). Diagnostic tests reviewed for today's visit: Lab Value Units Date High Low HB 14.8 g/dL 10/10/2023 15.5 11.5 HCT 45.0 % 10/10/2023 46.0 36.0 WBC 9.49 k/uL 10/10/2023 11.00 3.70 PLT 211 k/uL 10/10/2023 400 150 NA 136 mmol/L 10/10/2023 144 136 K 3.8 mmol/L 10/10/2023 5.1 3.7 GLUC 123 mg/dL 10/10/2023 99 74 BUN 19 mg/dL 10/10/2023 21 7 CREAT 0.61 mg/dL 10/10/2023 0.96 0.58 PTSEC 10.3 sec 11/04/2023 13.0 9.7 INR 1.0 no uni* 11/04/2023 1.3 0.9 APTT 25.9 sec 11/04/2023 32.4 23.0 ALT No results within date range. AST No results within date range. TBILI No results within date range. TSH No results within date range. Lab Value Units Date High Low HCGQT No results within date range. UHCG No results within date range. HCG, BODY* No results within date range. Lab Value Units Date High Low ABORHD No results within date range. ABSCREEN No results within date range. Hemoglobin A1C (%) Date Value 03/22/2023 5.1 Recent Results (from the past 8760 hour(s)) ECG COMPLETE Collection Time: 10/10/23 4:05 AM Result Value Ventricular Rate 91 Atrial Rate 91 P-R Interval 142 QRS Duration 88 QT Interval 362 QTC Calculation (Bazett) 445 Calculated P [place] 5 Calculated R [place] -5 Calculated T [place] 60 Impression NORMAL SINUS RHYTHM CANNOT EXCLUDE ANTERIOR MYOCARDIAL INFARCTION , AGE UNDETERMINED ABNORMAL ECG Confirmed by JESSIE RODRIGUEZ M.D. ([id number]), online editor JACKIE HOU ([id number]) on 10/11/2023 8:14:36 AM No results found for this or any previous visit (from the past 66009 hour(s)). Instructions Given to Patient: Instructions located in the after visit summary. Patient given verbal and written preop instructions and voices comprehension and compliance. SIGNATURE: Saniya Persaud APRN.CNP PATIENT NAME: Lexis Nguyen DATE: March 03, 2024 TIME: 8:07 AM PAGER/CONTACT #: documented in this encounterPromedica [facility]04-[facility] Miscellaneous Notes* Telephone Encounter - Monique Burton - 02/21/2024 10:07 AM EDT Patient called. She was requesting the a new order be placed for her next LP. [phone] (home) Stefano Chacon MD filed at 01/03/2024 2:48 PM Status: Signed Lexis Oakes is a 38 year old woman who presents today for follow up of her history of idiopathic intracranial hypertension (IIH). She has had a very complex history of idiopathic intracranial hypertension (IIH) with symptoms that began in 1999 and diagnosis made in 2006 with an opening pressureon lumbar puncture at one point of 40 cm H2O. She underwent CASINO BANKER shunt in 2009 that was infected and removed. She also underwent gastric bypass in 2013. She has been on Topiramate, acetazolamide (diamox), and lasix for the intracranial hypertension. Migraine and pain medications have included Aimovig, nortriptyline, duloxetine, and as needed tramadol. Her history was further complicated by an idiopathic seizure disorder for which she has been on vimpat. At initial consultation 12/22/22 she reported positional headaches, peripheral vision loss, transient visual obscurations, and pulsatile tinnitus. She denied associated diplopia. The patient's weight had been stable. She denied exposure to topical retin-A / accutane and tetracyclines. She had not recently contracted COVID-19. She was undergoing monthly lumbar punctures with it last performed about2 weeks prior initial consultation . She could tell when she required the next as she would experience an increase in all of her symptoms including transient visual obscurations. The patient's ophthalmic history was otherwise notable for a maternal history of glaucoma. The patient's initial neuro-ophthalmic exam 12/22/22 showed blind spot enlargement with superotemporal constriction on the right visual field and otherwise good afferent function. She did have right greater than left borderline ganglion cell loss on OCT in the setting of prior optic disc edema, withonly the appearance of rim fullness by dilated fundus exam and OCT peripapillary retinal nerve fiber layer. Since she had ongoing pulsatile tinnitus and other symptoms suggestive of intracranial hypertension, had required 129 large volume lumbar punctures, did not tolerate the oral medications, I ordered an MRV to evaluation the caliber of the venous sinuses, with potential referral to Dr. Campos thereafter, with whom I discussed her care. At her 01/11/23 virtual visit she reported ongoing transient visual obscurations in the preceding couple of weeks - slowly getting worse. As time went on she noticed progressive worsening. She continued to experience left worse than right-sided pulsatile tinnitus. She could tell that her vision was declining with it. She was pending lumbar puncture on Monday 01/15 arranged by NeuroIR / anesthesia with that being their absolute earliest date available. MRV of the head with and without contrast did not reveal a structural etiology underlying the patient's symptoms. She was still interested in moving forward with a formal angio to determine if there might be a gradient amenable to stenting. This unfortunately did not ultimately show a gradient so stenting was not indicated. She was eager to undergo lumbar puncture 01/15 with removal of CSF to within normal limits and we planned for in clinic thereafter. At her 03/22/23 she reported worsening vision, positional headaches, pulsatile tinnitus, and new diplopia. Her repeat exam did unfortunately show worsened right visual field defect in the setting of increased high false positives with otherwise stable afferent visual pathway function. Efferent function was intact. I placed another order for lumbar puncture with drainage via IR to be scheduled in conjunction withanesthesia since she required MAC. I contacted the provider who performed her pre-anesthesia consult previously to request assistance getting that scheduled and we tried to facilitate scheduling between anesthesia and IR. Finally, I had a glycohemoglobin drawn in the event she would ultimately be a candidate for a GLP1 inhibitor going forward, which was within normal limits. She unfortunately developed a post-lumbar puncture headache after her most recent lumbar puncture -that did have an elevated opening pressure of 37 cm H2O - so she required epidural blood patch placement thereafter. At her 06/28 return visit she reported that the EBP did help but was a painful process. Her repeat exam showed worsening left visual field defect in the setting of of increased visual snow syndrome associated symptoms during testing. There remained no optic disc edema fortunately. That being said, given the burden of symptoms and most recently elevated opening pressure, ideally we would find a better option than monthly lumbar punctures. To that end, we again discussed the potential utility of a GLP-1 inhibitor as per the [place] RCT (PMID: 25256966), which I hoped to discuss with her primary care physician to see if this could be facilitated. The patient was very interested in pursuing this option, even if it were to require weight clinic consultation which we could explore if needed. Her last lumbar puncture on 09/24 had an opening pressure recorded at 38 cm H2O. She unfortunately experienced back pain the day after. At her 09/28/23 clinic return she reported that on Wednesday 09/26 her vision became blurrier on the left (much more significant than the right). She also reported pulsatile tinnitus and transient visual obscurations with bending. She only felt better for about a day after, which was atypical. Repeat exam unfortunately showed progression of a now shauna inferior altitudinal zone defect on theleft with otherwise stable afferent visual pathway function bilaterally and disc appearance, again with nasal fullness and trace gliosis in the setting of mod cup to disc ratios. In this clinical context I ordered a repeat MRI of the brain and orbits with and without contrast. She planned to wait to have her next lumbar puncture until after the MRI to avoid artifact/PME, withan additional order placed for the lumbar puncture with IR with opening pressure and drainage to beperformed in conjunction with anesthesia. Going forward she conveyed her preference to please ensure that the provider performing the lumbar puncture had experience with her case given the complexity. Finally, I explained that I would be happy to provide any supportive documentation for consideration of a GLP-1 inhibitor as noted previously. ASSESSMENT/PLAN: (G93.2) IIH (idiopathic intracranial hypertension) (primary encounter diagnosis) (H53.452) Other localized visual field defect, left eye (H93.A9) Pulsatile tinnitus Repeat neuroimaging was fortunately without acute intracranial pathology. Today (January 03, 2024) she reported ongoing daily headaches - with a positional component - along with pulsatile tinnitus and transient visual obscurations. Monocular diplopia had occasionally recurred for which artificial tears were advised. Today's repeat exam showed improvement in the inferior defect on the left visual field - now more arcuate appearing than her prior study, remaining overall full on the right. Going forward she is going to plan to increase the time between repeat lumbar punctures given the back pain incurred as a result from them unfortunately; a new order was placed to be performed in conjunction with anesthesia. Her primary care physician re-prescribed the wegovy and the hope is that it will now be in stock at the pharmacy as it was previously unavailable. I will plan to see her back in 3-4 months, unless concerns arise in the interim, for which she was provided my contact information and encouraged to reach out. ER presentation is otherwise advised for any acute onset neurological deficits. Stefano Chacon MD documented in this encounterPromed[facility]03-08-2024 Instructions* Patient Instructions* Suman Jones APRN.SENIOR SOUS CHEF - 01/28/2024 7:46 AM EST PATIENT PREOPERATIVE INSTRUCTIONS Stefano Chacon MD has scheduled you for your procedure at this surgery center: [facility] Scheduling Office: [phone] --[address] [place] [address]. Please read below carefully for your personalized instructions. Dietary Restrictions: - Nothing to eat or drink after midnight except for a sip of water with approved medications. Medications: Unless instructed differently below, stay on all of your medications until your surgery. If you start any new medications after today's visit, please contact your surgeon. Pre-Surgery Med Instructions Medication Instructions omeprazole (PRILOSEC) 20 mg capsule Take the day of surgery with a small sip of water traMADol (ULTRAM) 50 mg tablet Do not take the day of surgery cyanocobalamin (VITAMIN B-12) 1,000 mcg tab Do not take the day of surgery lacosamide (VIMPAT) 200 mg Take the day of surgery with a small sip of water ARIPiprazole (ABILIFY) 10 mg tablet Do not take the day of surgery nortriptyline (PAMELOR) 75 mg capsule Do not take the day of surgery DULoxetine (CYMBALTA) 60 mg capsule Take the day of surgery with a small sip of water Calcium Citrate 250 mg calcium tab Do not take the day of surgery If you start any new medications after today's visit, please contact the surgeon's office. Blood Thinning Medications: - Stop NSAIDS (Ibuprofen, Advil, Aleve, Motrin, Celebrex, Mobic, etc.) 7 days before surgery, as directed by your surgeon. - Stop Aspirin 7 days before surgery, as directed by your surgeon. - Stop Vitamin E, ALL multi-vitamins, herbals and dietary supplements 7 days before surgery. - You may take Tylenol (Acetaminophen) or any of your pain medications that do not contain aspirin or NSAIDS as needed. Important Reminders: - Candy, mints, and tobacco products are NOT permitted the morning of surgery. - Hearing aids, dentures and glasses may be worn the morning of surgery. - NO jewelry, body piercings, makeup, hairpins or contacts are to be worn the day of surgery. If you develop symptoms such as a fever, cold, or flu, or have other changes to your health within TWO DAYS of scheduled surgery or the morning of surgery, please contact the surgery center above. Personal Belongings: -Please have photo ID and insurance cards. -If you do not have a copy of advance directives on file with us, please bring a copy with you on the day of surgery. - Leave ALL valuables and money at home or with family members. For Outpatient Procedures: - YOU MUST HAVE A RESPONSIBLE ASSAULT AMPHIBIOUS VEHICLE CREWMAN TAKE YOU HOME. 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 - We recommend that a responsible person stays with you overnight to take care of you. - You cannot stay in a hotel alone after outpatient surgery. You will not be permitted to have yoursurgery, if you do not have someone to take care of you. Arrival Time for Surgery: - To obtain your arrival time for surgery, call your physician's office the day before your surgery. - If your surgery is scheduled for Wednesday, call the Wednesday before. Your surgeon s scheduler maintenance will tell you what time to call the office. - If you have not reached the departmental scheduler maintenance by 5 P.M., call [phone] after 5 P.M. the day before your surgery. Please be aware that emergency situations arise, which may delay or change your surgical time. If this happens, we will notify you as soon as possible and regret any inconvenience. If you already have an Advance Directive, please fax a copy to [phone] or email to for it to be added to your chart. If you do not have an Advance Directive, you can find the appropriate form and more information at [email or web address]. We recommend that youcomplete the Advance Directive form found on the website and bring it with you the day of your surgery. It can be witnessed and scanned into your chart that day. Suman Jones APRN.CNP documented in this encounterPromedica [facility]03-08-2024 History and physical note * Suman Jones APRN.CNP - 01/28/2024 7:40 AM EST HISTORY AND PHYSICAL EXAMINATION SERVICE DATE: 01/28/2024 SERVICE TIME: 7:35 AM PRIMARY CARE PHYSICIAN: Yan Jasso, Assessment Patient has the following medical conditions which may affect david-operative course: Epilepsy (HCC) Stable on Lacosamide 200 mg BID and medical marijuana. Currently well controlled, last seizure over a year ago. S/P gastric bypass S/p krystal-en-Y in 2013. Gastroesophageal reflux disease Stable on Omeprazole 20 mg daily. Difficult intravenous access Patient states she usually receives a midline for procedures, will place DOS order. Morbid obesity with BMI of 45.0-49.9, adult (HCC) Body mass index is 48.7 kg/m . Medical marijuana use Patient uses medical marijuana on a daily basis, has been holding since Wednesday01/25/24 for upcomingprocedure. Higgins Activity Status Index: METS: Climb a flight of stairs or walk up a hill (5.50 METs) DASI Score: 5.5 Patient denies any chest pain or undue shortness of breath with the above physical activity. Clinical Frailty Scale: 4. Apparently vulnerable STOP-Bang Score: BMI greater than 35 kg/m^2 Denies snoring loudly Denies feeling tired, fatigued, or sleepy during the daytime Has not been observed to stop breathing or choking/gasping during sleep Denies having high blood pressure Patient 50 years old or younger Does not have a large neck Non-male patient STOP-Bang Score: 1 [id number] Score: Age: <65 Sex: female CHF history: No Hypertension history: No Stroke/TIA/thromboembolism history: No Vascular disease history: No Diabetes history: No [id number] Score: 1 ARISCAT Score: Age: <=50 Preoperative SpO2: >=96% Respiratory infection in the last month: No Preoperative anemia: Yes Surgical incision: peripheral Duration of surgery: <2 hrs Emergency procedure: No ARISCAT Score: 11 ASA Class: 3 ANESTHESIA FINDINGS: Intubation History: No history of difficult intubation. No abnormal airway history Significant Anesthesia Considerations: potential difficult IV/vein access Airway History: No history of difficult airway No abnormal airway history I - PHYSICAL EVALUATION AIRWAY Patient intubated: No. Tracheostomy tube not present Mallampati: II. TM distance: >3 FB. Neck ROM: full ROM without neurological symptoms. Mouth opening: adequate. Short neck: no. Thick neck: no Lip Bite Test: I Microretrognathia/Micronagthia/Recessed Chin: No DENTAL Dental findings: missing tooth/teeth. Additional comments: Caps/crowns.. II - ANESTHESIA PLAN ASA Score: 3 Anesthetic plan additional comments: *PACC/TCI - anesthesia choice. Beta Poncho Monitoring Plan Post Procedure Analgesic Plan Prepared for Surgery: optimally prepared for surgery. CONSULTS: Patient does not require consults for optimization at this time Planned Anesthetic: anesthesia choice The Following Tests/Procedures Have Been Initiated: No orders of the defined types were placed in this encounter. REASON FOR VISIT: Lexis Nguyen is a 38 year old female who is scheduled for Procedure(s) with comments: SPINAL PUNCTURE LUMBAR DIAGNOSTIC (N/A) - LP DIAG W/TABBY PT CALLED (tm/dt/rm ok per Bill 01/06) at the request of Dr. Stefano Chacon for consultation. My final recommendation will be communicated back to the requesting physician by way of shared medical record or letter. Subjective The patient has the following: ACTIVE PROBLEM LIST Anxiety Epilepsy (Hcc) Gastroesophageal Reflux Disease Major Depression, Single Episode Morbid Obesity (Hcc) Iih (Idiopathic Intracranial Hypertension) Difficult Intravenous Access Morbid Obesity With Bmi of 45.0-49.9, Adult (Hcc) Idiopathic Intracranial Hypertension Headaches S/P Gastric Bypass Medical Marijuana Use Exhausted Vascular Access Pre-Op Evaluation COVID-19 Immunization Status Covid-19 Vaccine (Series Information) Completed 10/25/2023 Imm Admin: COVID-19 vaccine, age 12+ yr, 2022- season (MODERNA) 09/01/2022 Imm Admin: COVID-19 vaccine, age 12+ yr, bivalent ([employer] 04/02/2021 Imm Admin: COVID-19 original vaccine, full dose, monovalent (MODERNA) Only the first 3 history entries have been loaded, but more history exists. CHIEF COMPLAINT: Idiopathic intracranial hypertension HPI: Patient is a 38 year old female presenting to [facility]; has c/o idiopathic intracranial hypertension. She receives regular lumbar punctures for management. Patient denies recent fevers, chills, unexplained weight loss, shortness of breath or chest pain. The above surgery was recommended; patient has elected to proceed. REVIEW OF SYSTEMS: General: No weight loss, malaise or fevers. Neurological: See HPI. Positive for: headaches and seizures. Negative for: TIA and strokes. Respiratory: No history of current cough or dyspnea, or pneumonia in the past 6 weeks. No history of respiratory/pulmonary symptoms or problems. Cardiovascular: No history of HTN requiring medication, no history of angina, CHF, [place], cardiac surgery or stents. Denies rest pain, gangrene or revascularization/amputation for PVD. No history of cardiovascular symptoms or problems. GI: S/p gastric bypass. Positive for: GERD Negative for: abdominal pain, liver disease, nausea and vomiting. : No history of dysuria, frequency or incontinence, stones or chronic kidney disease. No difficulty urinating, nocturia > 1 time per night or hematuria. 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 Endocrine: No history of diabetes. Has not taken steroids within the past 30 days. No history of endocrinological symptoms or problems. Hematology: No history of bleeding or clotting disorder. Patient is not taking anti-coagulation or platelet medications. No history of hematological symptoms or problems. Oncology: No history of CA metastasis, chemo within 30 days, or radiotherapy within 90 days. No history of oncological symptoms or problems. Psych: Positive for: anxiety and depression. Musculoskeletal: Positive for: back pain. Skin: Negative for lesions, rash and itching. PAST MEDICAL HISTORY Diagnosis Date Difficult intravenous access 02/16/2023 Epilepsy (HCC) IIH (idiopathic intracranial hypertension) PAST SURGICAL HISTORY Procedure Laterality Date APPENDIX NET-EXCIS(APPENDECTOMY)SYNOPTIC 2007 GASTRIC BYPASS HX 2013 HYSTERECTOMY 2021 MIDLINE INSERTION/CONSULT 07/28/2023 MIDLINE INSERTION/CONSULT 12/14/2023 PAST SURGICAL HISTORY OF 2019 collar bone fracture (hardware placement and removal) PAST SURGICAL HISTORY OF lumbar punctures (132) PAST SURGICAL HISTORY OF 02/2023 brain angiogram PAST SURGICAL HISTORY OF 2009 CASINO BANKER Shunt - removed in 2009 due to infection REMOVAL GALLBLADDER 2015 TONSILLECTOMY HX 2006 FAMILY HISTORY Problem Relation Age of Onset COPD Mother Diabetes Father Ischemic Heart Disease Father Stroke Father Skin Cancer Father Difficulty with anesthesia No Family History Anesthesia Problems No Family History Social History Tobacco Use Smoking status: Never Smokeless tobacco: Never Substance Use Topics Alcohol use: Not Currently Comment: Rare Drug use: Yes Frequency: 7.0 times per week Comment: medical marijuana-vaping Prior to Admission medications as of 01/28/24 0737 Medication Sig Last Dose Taking omeprazole (PRILOSEC) 20 mg capsule Take 1 capsule by mouth once daily. Taking Yes traMADol (ULTRAM) 50 mg tablet Take 1 tablet by mouth twice daily as needed for pain. Taking Yes cyanocobalamin (VITAMIN B-12) 1,000 mcg tab Take 1 tablet by mouth once daily. Taking Yes lacosamide (VIMPAT) 200 mg Take 1 tablet by mouth twice daily. Taking Yes ARIPiprazole (ABILIFY) 10 mg tablet Take 10 mg by mouth once daily. Taking Yes nortriptyline (PAMELOR) 75 mg capsule Take 75 mg by mouth once daily. Taking Yes DULoxetine (CYMBALTA) 60 mg capsule duloxetine 60 mg capsule,delayed release TAKE 1 CAPSULE BY MOUTH TWICE DAILY Taking Yes Calcium Citrate 250 mg calcium tab Take 1 tablet by mouth once daily. Taking Yes No medication comments found. ALLERGIES Allergen Reactions Nsaids (Non-Steroid* GI Upset, Contraindication-Medical Surgical Because of gastric bypass C[place] Pepper Rash Gabapentin Mental Status Change, Other: See Comments Tremors Penicillins Hives, Rash Received IV cefazolin at [facility] in 2018 and 2020 prior to procedures Received IV cefazolin at [facility] in 2018 and 2020 prior to procedures Objective PHYSICAL EXAM: General: alert and oriented and morbidly obese. Pertinent negatives noted - not distressed. Skin: normal color, no rash or lesions. HEENT: pupils equal round and pupils reactive to light. Cardiovascular: regular rate and rhythm, normal S1 and S2, no rub, murmurs, or gallop. Respiratory: normal breath sounds, no wheezes or crackles. Abdomen: bowel sounds present and soft. Pertinent negatives noted - not tender. Extremities: Positive for joint tenderness. Neurological: normal cognition and motor skills. PAIN ASSESSMENT: Pain Pain Level: 8 Pain Location: Head Description: Pressure Duration Units: Years Frequency: Continuous VITALS: BP 129/83 Pulse 99 Temp (Src) 98.1 (Temporal) Resp 16 Ht 5' 4 (1.63m) Wt 283 lb 11.7 oz (128.7kg) SpO2 100% BMI 48.68 kg/(m^2). Diagnostic tests reviewed for today's visit: Lab Value Units Date High Low HB 14.8 g/dL 10/10/2023 15.5 11.5 HCT 45.0 % 10/10/2023 46.0 36.0 WBC 9.49 k/uL 10/10/2023 11.00 3.70 PLT 211 k/uL 10/10/2023 400 150 NA 136 mmol/L 10/10/2023 144 136 K 3.8 mmol/L 10/10/2023 5.1 3.7 GLUC 123 mg/dL 10/10/2023 99 74 BUN 19 mg/dL 10/10/2023 21 7 CREAT 0.61 mg/dL 10/10/2023 0.96 0.58 PTSEC 10.3 sec 11/04/2023 13.0 9.7 INR 1.0 no uni* 11/04/2023 1.3 0.9 APTT 25.9 sec 11/04/2023 32.4 23.0 ALT No results within date range. AST No results within date range. TBILI No results within date range. TSH No results within date range. Lab Value Units Date High Low HCGQT No results within date range. UHCG No results within date range. HCG, BODY* No results within date range. Lab Value Units Date High Low ABORHD No results within date range. ABSCREEN No results within date range. Hemoglobin A1C (%) Date Value 03/22/2023 5.1 Recent Results (from the past 8760 hour(s)) ECG COMPLETE Collection Time: 10/10/23 4:05 AM Result Value Ventricular Rate 91 Atrial Rate 91 P-R Interval 142 QRS Duration 88 QT Interval 362 QTC Calculation (Bazett) 445 Calculated P [place] 5 Calculated R [place] -5 Calculated T [place] 60 Impression NORMAL SINUS RHYTHM CANNOT EXCLUDE ANTERIOR MYOCARDIAL INFARCTION , AGE UNDETERMINED ABNORMAL ECG Confirmed by JESSIE RODRIGUEZ M.D. ([id number]), online editor JACKIE HOU ([id number]) on 10/11/2023 8:14:36 AM Instructions Given to Patient: Instructions located in the after visit summary. Patient given verbal and written preop instructions and voices comprehension and compliance. SIGNATURE: Suman Jones APRN.CNP PATIENT NAME: Lexis Nguyen DATE: January 28, 2024 TIME: 8:00 AM PAGER/CONTACT #: documented in this encounterPromedica [facility] History of Present illness Narrative* Stefano Chacon MD - 01/03/2024 12:05 PM EST Lexis Oakes is a 38 year old woman who presents today for follow up of her history of idiopathic intracranial hypertension (IIH). She has had a very complex history of idiopathic intracranial hypertension (IIH) with symptoms that began in 1999 and diagnosis made in 2006 with an opening pressureon lumbar puncture at one point of 40 cm H2O. She underwent CASINO BANKER shunt in 2009 that was infected and removed. She also underwent gastric bypass in 2013. She has been on Topiramate, acetazolamide (diamox), and lasix for the intracranial hypertension. Migraine and pain medications have included Aimovig, nortriptyline, duloxetine, and as needed tramadol. Her history was further complicated by an idiopathic seizure disorder for which she has been on vimpat. At initial consultation 12/22/22 she reported positional headaches, peripheral vision loss, transient visual obscurations, and pulsatile tinnitus. She denied associated diplopia. The patient's weight had been stable. She denied exposure to topical retin-A / accutane and tetracyclines. She had not recently contracted COVID-19. She was undergoing monthly lumbar punctures with it last performed about2 weeks prior initial consultation . She could tell when she required the next as she would experience an increase in all of her symptoms including transient visual obscurations. The patient's ophthalmic history was otherwise notable for a maternal history of glaucoma. The patient's initial neuro-ophthalmic exam 12/22/22 showed blind spot enlargement with superotemporal constriction on the right visual field and otherwise good afferent function. She did have right greater than left borderline ganglion cell loss on OCT in the setting of prior optic disc edema, withonly the appearance of rim fullness by dilated fundus exam and OCT peripapillary retinal nerve fiber layer. Since she had ongoing pulsatile tinnitus and other symptoms suggestive of intracranial hypertension, had required 129 large volume lumbar punctures, did not tolerate the oral medications, I ordered an MRV to evaluation the caliber of the venous sinuses, with potential referral to Dr. Campos thereafter, with whom I discussed her care. At her 01/11/23 virtual visit she reported ongoing transient visual obscurations in the preceding couple of weeks - slowly getting worse. As time went on she noticed progressive worsening. She continued to experience left worse than right-sided pulsatile tinnitus. She could tell that her vision was declining with it. She was pending lumbar puncture on Monday 01/15 arranged by NeuroIR / anesthesia with that being their absolute earliest date available. MRV of the head with and without contrast did not reveal a structural etiology underlying the patient's symptoms. She was still interested in moving forward with a formal angio to determine if there might be a gradient amenable to stenting. This unfortunately did not ultimately show a gradient so stenting was not indicated. She was eager to undergo lumbar puncture 01/15 with removal of CSF to within normal limits and we planned for in clinic thereafter. At her 03/22/23 she reported worsening vision, positional headaches, pulsatile tinnitus, and new diplopia. Her repeat exam did unfortunately show worsened right visual field defect in the setting of increased high false positives with otherwise stable afferent visual pathway function. Efferent function was intact. I placed another order for lumbar puncture with drainage via IR to be scheduled in conjunction withanesthesia since she required MAC. I contacted the provider who performed her pre-anesthesia consult previously to request assistance getting that scheduled and we tried to facilitate scheduling between anesthesia and IR. Finally, I had a glycohemoglobin drawn in the event she would ultimately be a candidate for a GLP1 inhibitor going forward, which was within normal limits. She unfortunately developed a post-lumbar puncture headache after her most recent lumbar puncture -that did have an elevated opening pressure of 37 cm H2O - so she required epidural blood patch placement thereafter. At her 06/28 return visit she reported that the EBP did help but was a painful process. Her repeat exam showed worsening left visual field defect in the setting of of increased visual snow syndrome associated symptoms during testing. There remained no optic disc edema fortunately. That being said, given the burden of symptoms and most recently elevated opening pressure, ideally we would find a better option than monthly lumbar punctures. To that end, we again discussed the potential utility of a GLP-1 inhibitor as per the [place] RCT (PMID: 94530350), which I hoped to discuss with her primary care physician to see if this could be facilitated. The patient was very interested in pursuing this option, even if it were to require weight clinic consultation which we could explore if needed. Her last lumbar puncture on 09/24 had an opening pressure recorded at 38 cm H2O. She unfortunately experienced back pain the day after. At her 09/28/23 clinic return she reported that on Wednesday 09/26 her vision became blurrier on the left (much more significant than the right). She also reported pulsatile tinnitus and transient visual obscurations with bending. She only felt better for about a day after, which was atypical. Repeat exam unfortunately showed progression of a now shauna inferior altitudinal zone defect on theleft with otherwise stable afferent visual pathway function bilaterally and disc appearance, again with nasal fullness and trace gliosis in the setting of mod cup to disc ratios. In this clinical context I ordered a repeat MRI of the brain and orbits with and without contrast. She planned to wait to have her next lumbar puncture until after the MRI to avoid artifact/PME, withan additional order placed for the lumbar puncture with IR with opening pressure and drainage to beperformed in conjunction with anesthesia. Going forward she conveyed her preference to please ensure that the provider performing the lumbar puncture had experience with her case given the complexity. Finally, I explained that I would be happy to provide any supportive documentation for consideration of a GLP-1 inhibitor as noted previously. ASSESSMENT/PLAN: (G93.2) IIH (idiopathic intracranial hypertension) (primary encounter diagnosis) (H53.452) Other localized visual field defect, left eye (H93.A9) Pulsatile tinnitus Repeat neuroimaging was fortunately without acute intracranial pathology. Today (January 03, 2024) she reported ongoing daily headaches - with a positional component - along with pulsatile tinnitus and transient visual obscurations. Monocular diplopia had occasionally recurred for which artificial tears were advised. Today's repeat exam showed improvement in the inferior defect on the left visual field - now more arcuate appearing than her prior study, remaining overall full on the right. Going forward she is going to plan to increase the time between repeat lumbar punctures given the back pain incurred as a result from them unfortunately; a new order was placed to be performed in conjunction with anesthesia. Her primary care physician re-prescribed the wegovy and the hope is that it will now be in stock at the pharmacy as it was previously unavailable. I will plan to see her back in 3-4 months, unless concerns arise in the interim, for which she was provided my contact information and encouraged to reach out. ER presentation is otherwise advised for any acute onset neurological deficits. Stefano Chacon MD 2:45 PM 01/03/2024 FOR ADMINISTRATIVE PURPOSES ONLY: My impression of this case is based upon an assessment of the the patient's subacute on chronic problems listed above that pose a threat to visual and neurologic function. 44 minutes were spent on total patient care on the day of service that includes both [id number]-[id number]-tcdu and kkt-bgou-nk-face time. This time was separate from any of my time spent completing and interpreting the ancillary testing (such as OCT, fundus photos, visual mauricio) and sensorimotor exam, if applicable. This time was broken down into: 5 minutes reviewing the patient record before the visit, 10 minutes performing a medically appropriate neuro- ophthalmic history and exam (excluding time spent on the ancillary testing and sensorimotor exam, if applicable), 5 communicating results to the patient/family, 11 minutes counseling / educating the patient, 5 minutes documenting clinical information into the electronic health record of the patient, 2 minutes ordering tests/medications/procedures, and 6 minutes coordinating care for the patient. I communicated with Dr. Jasso regarding the management of this patient. The assessment and plan were discussed extensively with the patient who was amenable and voiced understanding. documented in this encounterPromedica [facility]11-30-2023 Miscellaneous Notes* Telephone Encounter - Joerickie Monique Parisi - 10/21/2023 9:16 AM EST Patient called. She would like to set up her [facility] and is requesting orders be placed. [phone] (home) Stefano Chacon MD filed at 09/28/2023 2:14 PM Status: Signed Lexis Oakes is a 38 year old woman who presents today for follow up of her history of idiopathic intracranial hypertension (IIH). She has had a very complex history of idiopathic intracranial hypertension (IIH) with symptoms that began in 1999 and diagnosis made in 2006 with an opening pressureon lumbar puncture at one point of 40 cm H2O. She underwent CASINO BANKER shunt in 2009 that was infected and removed. She also underwent gastric bypass in 2013. She has been on Topiramate, acetazolamide (diamox), and lasix for the intracranial hypertension. Migraine and pain medications have included Aimovig, nortriptyline, duloxetine, and as needed tramadol. Her history was further complicated by an idiopathic seizure disorder for which she has been on vimpat. At initial consultation 12/22/22 she reported positional headaches, peripheral vision loss, transient visual obscurations, and pulsatile tinnitus. She denied associated diplopia. The patient's weight had been stable. She denied exposure to topical retin-A / accutane and tetracyclines. She had not recently contracted COVID-19. She was undergoing monthly lumbar punctures with it last performed about2 weeks prior initial consultation . She could tell when she required the next as she would experience an increase in all of her symptoms including transient visual obscurations. The patient's ophthalmic history was otherwise notable for a maternal history of glaucoma. The patient's initial neuro-ophthalmic exam 12/22/22 showed blind spot enlargement with superotemporal constriction on the right visual field and otherwise good afferent function. She did have right greater than left borderline ganglion cell loss on OCT in the setting of prior optic disc edema, withonly the appearance of rim fullness by dilated fundus exam and OCT peripapillary retinal nerve fiber layer. Since she had ongoing pulsatile tinnitus and other symptoms suggestive of intracranial hypertension, had required 129 large volume lumbar punctures, did not tolerate the oral medications, I ordered an MRV to evaluation the caliber of the venous sinuses, with potential referral to Dr. Campos thereafter, with whom I discussed her care. At her 01/11/23 virtual visit she reported ongoing transient visual obscurations in the preceding couple of weeks - slowly getting worse. As time went on she noticed progressive worsening. She continued to experience left worse than right-sided pulsatile tinnitus. She could tell that her vision was declining with it. She was pending lumbar puncture on Monday 01/15 arranged by NeuroIR / anesthesia with that being their absolute earliest date available. MRV of the head with and without contrast did not reveal a structural etiology underlying the patient's symptoms. She was still interested in moving forward with a formal angio to determine if there might be a gradient amenable to stenting. This unfortunately did not ultimately show a gradient so stenting was not indicated. She was eager to undergo lumbar puncture 01/15 with removal of CSF to within normal limits and we planned for in clinic thereafter. At her 03/22/23 she reported worsening vision, positional headaches, pulsatile tinnitus, and new diplopia. Her repeat exam did unfortunately show worsened right visual field defect in the setting of increased high false positives with otherwise stable afferent visual pathway function. Efferent function was intact. I placed another order for lumbar puncture with drainage via IR to be scheduled in conjunction withanesthesia since she required MAC. I contacted the provider who performed her pre-anesthesia consult previously to request assistance getting that scheduled and we tried to facilitate scheduling between anesthesia and IR. Finally, I had a glycohemoglobin drawn in the event she would ultimately be a candidate for a GLP1 inhibitor going forward, which was within normal limits. She unfortunately developed a post-lumbar puncture headache after her most recent lumbar puncture -that did have an elevated opening pressure of 37 cm H2O - so she required epidural blood patch placement thereafter. At her 06/28 return visit she reported that the EBP did help but was a painful process. Her repeat exam showed worsening left visual field defect in the setting of of increased visual snow syndrome associated symptoms during testing. There remained no optic disc edema fortunately. That being said, given the burden of symptoms and most recently elevated opening pressure, ideally we would find a better option than monthly lumbar punctures. To that end, we again discussed the potential utility of a GLP-1 inhibitor as per the [place] RCT (PMID: 34018670), which I hoped to discuss with her primary care physician to see if this could be facilitated. The patient was very interested in pursuing this option, even if it were to require weight clinic consultation which we could explore if needed. ASSESSMENT/PLAN: (G93.2) IIH (idiopathic intracranial hypertension) (primary encounter diagnosis) (H53.452) Other localized visual field defect, left eye Her last lumbar puncture on 09/24 had an opening pressure recorded at 38 cm H2O. She unfortunately experienced back pain the day after. Today (September 28, 2023) she reports that on Wednesday 09/26 her vision became blurrier on the left (much more significant than the right). She also reported pulsatile tinnitus and transient visual obscurations with bending. She only felt better for about a day after, which is atypical. Today's repeat exam unfortunately showed progression of a now shauna inferior altitudinal zone defect on the left with otherwise stable afferent visual pathway function bilaterally and disc appearance, again with nasal fullness and trace gliosis in the setting of mod cup to disc ratios. In this clinical context I will repeat an MRI of the brain and orbits with and without contrast. I will then plan to review the results of this with the patient via virtual visit. She will wait to have her next lumbar puncture until after the MRI to avoid artifact/PME, with an additional order placed today for lumbar puncture with IR with opening pressure and drainage to be performed in conjunction with anesthesia. Going forward she would prefer to please ensure that the provider performing the lumbar puncture has had experience with her case given the complexity. Their expertise is greatly appreciated. We will determine the timeline for her next clinic return based upon the MRI results to be reviewedat an interval virtual visit, unless concerns arise in the interim, for which she was provided my contact information and encouraged to reach out. ER presentation is otherwise advised for any acute onset neurological deficits. Finally, I am happy to provide any supportive documentation for consideration of a GLP-1 inhibitor as noted previously. Stefano Chacon MD documented in this encounterPromedica [facility]11-22-2023 Surgical operation note* Brief Op Note - Francine Mauricio APRN.CNP - 10/13/2023 10:29 AM EST BRIEF OPERATIVE / PROCEDURE NOTE LOG ID: [id number] SURGERY/PROCEDURE DATE: 10/13/2023 INCISION/PROCEDURE START TIME: 9:55 AM INCISION CLOSE/PROCEDURE END TIME: 10:19 AM SURGEON(S)/PROCEDURALIST(S) AND SCREEN CUTTER AND TRIMMER(S): Surgeon(s) and Role: * Randall Lockhart MD, MD, PhD - Primary * Francine Mauricio APRN.CNP No Additional Staff SURGERY/PROCEDURE(S): Therapeutic lumbar puncture with fluoroscopic guidance ANESTHESIA: Choice - Anesthesia Consult FINDINGS: Opening pressure 22 cm H20; closing pressure 15 cm H20 after removing 12 ml clear CSF. Access obtained at L3-L4 with a 6 inch needle. ESTIMATED BLOOD LOSS: minimal SPECIMENS: None COMPLICATIONS: None PRE-OP/PRE-PROCEDURE DIAGNOSIS: IIH POST-OP/POST-PROCEDURE DIAGNOSIS: Same as Preop SIGNATURE: Francine Mauricio APRN.CNP PATIENT NAME: Lexis Nguyen DATE: October 13, 2023 TIME: 10:29 AM documented in this encounterPromedica F[facility]11-22-2023 Miscellaneous Notes* Patient Education - John Paul Arevalo RN - 10/13/2023 9:52 AM EST AMBULATORY PATIENT EDUCATION TOPIC: Survival Skills: HEALTH PROMOTION: Complication prevention READINESS TO LEARN COGNITIVE ABILITY: Alert and oriented MOTIVATION TO LEARN: Eager FAMILY SUPPORT: High - Very involved in pt care INSTRUCTION PROVIDED TO: Patient PATIENT LEARNS BEST BY: Individual Instruction FACTORS AFFECTING LEARNING: None PHYSICAL LIMITATIONS AFFECTING LEARNING: None LEARNING RESPONSE DIAGNOSIS: IIH METHOD OF INSTRUCTION: Individual instruction PATIENT / FAMILY RESPONSE: Verbalizes understanding of: POST-PROCEDURE INSTRUCTIONS-Correct actionsto take to reduce post procedure complications FOLLOW-UP PLAN: Follow-up with Primary Care SUPPLEMENTAL MATERIAL: None REFERRAL (RECOMMENDATION): None Electronically Signed By: John Paul Arevalo RN In Department: HOSP MAIN [id number] documented in this encounterPromedica Flower [facility]11-22-2023 History of Present illness Narrative* Sabra Aquino RN - 10/13/2023 8:27 AM EST Called to FB for difficult peripheral IV access. Inserted 20 gauge accucath (exend dwell)into left forearm with/without ultrasound. Brisk blood return noted, flushed with 10 ml of normal saline without complications. FB RN updated. Sabra Aquino RN October 13, 2023 8:30 AM documented in this encounterPromedica Flower [facility]11-03-2023 Surgical operation note* Brief Op Note - Salbador Alfaro DO - 09/24/2023 10:23 AM EDT BRIEF OPERATIVE / PROCEDURE NOTE LOG ID: [id number] SURGERY/PROCEDURE DATE: 09/24/2023 INCISION/PROCEDURE START TIME: 8:58 AM INCISION CLOSE/PROCEDURE END TIME: 9:50 AM SURGEON(S)/PROCEDURALIST(S) AND SCREEN CUTTER AND TRIMMER(S): Surgeon(s) and Role: * Serena Antony MD, MD - Primary * Salbador Alfaro DO - Fellow No Additional Staff SURGERY/PROCEDURE(S): Fluoro guided therapeutic lumbar puncture ANESTHESIA: Choice - Anesthesia Consult FINDINGS: Successful fluoro guided therapeutic lumbar puncture ESTIMATED BLOOD LOSS: 0 ml SPECIMENS: 29 ml CSF fluid collected and discarded COMPLICATIONS: None SIGNATURE: Salbador Alfaro DO PATIENT NAME: Lexis Nguyen DATE: September 24, 2023 TIME: 10:23 AM documented in this [facility]09-18-2023 Miscellaneous Notes* Telephone Encounter - Stefano Chacon MD - 08/09/2023 3:34 PM EDT Daniel Rubin the order is in can you please help the patient to get it set up with IR / anesthesia whenyou return tomorrow, thank you so much! * Telephone Encounter - Delfina Brantley - 08/09/2023 9:45 AM EDT Kirstin I tried calling the office, but the number isn't working. I'm looking to set up my next tap and waswondering if you knew more than I do about it. Also, I haven't been able to start the Weygovy because it's not in stock in anywhere. I'm hoping itwill be restocked soon, but their site says probably not for months. Stefano Chacon MD filed at 06/28/2023 2:48 PM Status: Signed Lexis Oakes is a 38 year old woman who presents today for follow up of her history of idiopathic intracranial hypertension (IIH). She has had a very complex history of idiopathic intracranial hypertension (IIH) with symptoms thatbegan in 1999 and diagnosis made in 2006 with an opening pressure on lumbar puncture at one point of 40 cm H2O. She underwent CASINO BANKER shunt in 2009 that was infected and removed. She also underwent gastric bypass in 2013. She has been on Topiramate, acetazolamide (diamox), and lasix for the intracranialhypertension. Migraine and pain medications have included Aimovig, nortriptyline, duloxetine, and as needed tramadol. Her history was further complicated by an idiopathic seizure disorder for which she has been on vimpat. At initial consultation 12/22/22 she reported positional headaches, peripheral vision loss, transient visual obscurations, and pulsatile tinnitus. She denied associated diplopia. The patient's weight had been stable. She denied exposure to topical retin-A / accutane and tetracyclines. She had not recently contracted COVID-19. She was undergoing monthly lumbar punctures with it last performed about2 weeks prior initial consultation . She could tell when she required the next as she would experience an increase in all of her symptoms including transient visual obscurations. The patient's ophthalmic history was otherwise notable for a maternal history of glaucoma. The patient's initial neuro-ophthalmic exam 12/22/22 showed blind spot enlargement with superotemporal constriction on the right visual field and otherwise good afferent function. She did have right greater than left borderline ganglion cell loss on OCT in the setting of prior optic disc edema, withonly the appearance of rim fullness by dilated fundus exam and OCT peripapillary retinal nerve fiber layer. Since she had ongoing pulsatile tinnitus and other symptoms suggestive of intracranial hypertension, had required 129 large volume lumbar punctures, did not tolerate the oral medications, I ordered an MRV to evaluation the caliber of the venous sinuses, with potential referral to Dr. Campos thereafter, with whom I discussed her care. At her 01/11/23 virtual visit she reported ongoing transient visual obscurations in the preceding couple of weeks - slowly getting worse. As time went on she noticed progressive worsening. She continued to experience left worse than right-sided pulsatile tinnitus. She could tell that her vision was declining with it. She was pending lumbar puncture on Monday 01/15 arranged by NeuroIR / anesthesia with that being their absolute earliest date available. MRV of the head with and without contrast did not reveal a structural etiology underlying the patient's symptoms. She was still interested in moving forward with a formal angio to determine if there might be a gradient amenable to stenting. This unfortunately did not ultimately show a gradient so stenting was not indicated. She was eager to undergo lumbar puncture 01/15 with removal of CSF to within normal limits and we planned for in clinic thereafter. At her 03/22/23 she reported worsening vision, positional headaches, pulsatile tinnitus, and new diplopia. Her repeat exam did unfortunately show worsened right visual field defect in the setting of increased high false positives with otherwise stable afferent visual pathway function. Efferent function was intact. I placed another order for lumbar puncture with drainage via IR to be scheduled in conjunction withanesthesia since she required MAC. I contacted the provider who performed her pre-anesthesia consult previously to request assistance getting that scheduled and we tried to facilitate scheduling between anesthesia and IR. Finally, I had a glycohemoglobin drawn in the event she would ultimately be a candidate for a GLP1 inhibitor going forward, which was within normal limits. ASSESSMENT/PLAN: (G93.2) IIH (idiopathic intracranial hypertension) (primary encounter diagnosis) (H53.453) Other localized visual field defect, bilateral She unfortunately developed a post-lumbar puncture headache after her most recent lumbar puncture -that did have an elevated opening pressure of 37 cm H2O - so we she required epidural blood patch placement thereafter. Today (June 28, 2023) she reports that the EBP did help but was a painful process. Since that timeshe has Today's repeat exam showed worsening left visual field defect in the setting of of increased visualsnow syndrome associated symptoms today. There remains no optic disc edema fortunately. That being said, given the burden of symptoms and most recently elevated opening pressure, ideally we will finda better option than monthly lumbar punctures. To that end, we again discussed the potential utility of a GLP-1 inhibitor as per the [place] RCT (PMID: 71389290), which I will discuss with her primary care physician to see if this could be facilitated. The patient is very interested in pursuing this option, even if it were to require weight clinic consultation which will can explore if needed. I have additionally placed another order for a lumbar puncture with IR for opening pressure and drainage to be performed in conjunction with anesthesia. I will plan to see her back in 3 months, unless concerns arise in the interim, for which she was provided my contact information and encouraged to reach out. ER presentation is otherwise advised for any acute onset neurological deficits. Stefano Chacon MD 2:41 PM 06/28/2023 documented in this encounterPromed[facility]09-[facility] Surgical operation note* Brief Op Note - Za Pascual MD - 07/28/2023 1:48 PM EDT BRIEF OPERATIVE / PROCEDURE NOTE LOG ID: [id number] SURGERY/PROCEDURE DATE: 07/28/2023 INCISION/PROCEDURE START TIME: 1:27 PM INCISION CLOSE/PROCEDURE END TIME: 1:45 PM SURGEON(S)/PROCEDURALIST(S) AND SCREEN CUTTER AND TRIMMER(S): Surgeon(s) and Role: * Babs Anderson MD, MD - Primary * Za Pascual MD - Resident - Assisting * Flaco Robert MD - Fellow No Additional Staff SURGERY/PROCEDURE(S): Fluoroscopy Guided Lumbar Puncture at L2-L3. ANESTHESIA: Choice - Anesthesia Consult FINDINGS: - Opening Pressure 22 cm H2O - Closing Pressure 17 cm H2O ESTIMATED BLOOD LOSS: 0 ml SPECIMENS: 16 cc CSF discarded COMPLICATIONS: None PRE-OP/PRE-PROCEDURE DIAGNOSIS: Idiopathic Intracranial Hypertension POST-OP/POST-PROCEDURE DIAGNOSIS: Same as Preop SIGNATURE: Za Pascual MD PATIENT NAME: Lexis Nguyen DATE: July 28, 2023 TIME: 1:49 PM documented in this encounterPromedica F[facility]09-06-2023 Procedure note* Yas Lucero RN - 07/28/2023 12:36 PM EDTAssociated Order(s): IR VASCULAR ACCESS TEAM MIDLINE INSERTION RADIO Procedure(s): MIDLINE INSERTION/CONSULT; MIDLINE INSERTION/CONSULT MIDLINE INSERTION PROCEDURE NOTE - PICC TEAM NURSES DATE OF PROCEDURE: 07/28/2023 TIME OF PROCEDURE: 1220 ORDERING PHYSICIAN: Venessa Veliz Indications for line placement: Intravenous access Condition of line placement: Sterile Primary Proceduralist: Ingris Aquino RN Home Care Attendant: Yas Lucero RN Pre-procedure Review: ALLERGIES Allergen Reactions Nsaids (Non-Steroid* GI Upset, Contraindication-Medical Surgical Because of gastric bypass Cavanaugh Pepper Rash Gabapentin Mental Status Change, Other: See Comments Tremors Penicillins Hives, Rash Received IV cefazolin at [facility] in 2018 and 2020 prior to procedures Received IV cefazolin at [facility] in 2018 and 2020 prior to procedures Known history of Upper Venous Thrombosis: No Known history of Permanent Pacemaker or Automated Implanted Cardiac Device: No Previous breast surgery of lymph node dissection: No Estimated Glomerular Filtration Rate Date Value Ref Range Status 06/21/2023 114 >=60 mL/min/1.73m Final Comment: Estimated Glomerular Filtration Rate (eGFR) is calculated using the 2020 CKD-EPI creatinine equation. This equation utilizes serum creatinine, sex, and age as parameters. The creatinine assay has traceable calibration to isotope dilution- mass spectrometry. Refer to KDIGO guidelines for clinical interpretation. In patients with unstable renal function, e.g. those with acute kidney injury, the eGFRmay not accurately reflect actual GFR. History of Renal Disease: No Ultrasound assessment complete: Yes Procedure Narrative Safe Practice: Hand hygiene per hospital policy: Yes Skin preparation used: Chloraprep (CHG + alcohol), allowed to dry Barriers used by Proceduralist and all assisting personnel: Yes UNIVERSAL PROTOCOL / SAFETY CHECKLIST Procedure to be Performed: midline Sign In: A Moment of CARE was completed. Personnel directly involved with the procedure wore the appropriate PPE (Personal Protective Equipment). Patient/Surrogate Stated/Verified: PATIENT VERIFIED(optional for EMERGENT procedures): Patient name, Date of , Relevant allergies, and The intended procedure Time Out Communication: Intended patient and procedure match the source documents. Consent documented and matches the intended procedure. Sign Out: SIGN OUT (optional for EMERGENT procedures): No specimen collected. All instruments, equipment, possible retained foreign bodies accounted for. Yas Lucero RN Midline Catheter Placement: Brand: bard Lot: [id number] Number of lumens: 1 Type of Midline: Power Injectable Midline Lumen size: 4 Slovak Placement Technique: Lidocaine: Yes, Lidocaine 1% Volume 5 mL Subcutaneous Modified Seldinger Technique use to place line via the: Right Brachial Ultrasound Guidance: Yes Number of attempts at insertion: 2 Ensured control of guidewire during all aspects of the procedure: Yes Accounted for entire guidewire upon removal: Yes Internal length: 15 cm External length: 0 cm Trim length:15 cm Mid-Arm circumference: 42 centimeters Post insertion pain level related to procedure: 0 Action taken to address pain: RN to monitor Verified placement: Positive blood return Line was flushed with 20 mL normal saline Line secured with: Securement device Sterile dressing applied and dated: Yes Sterile caps on all ports prior to leaving procedure area: Yes Specimens: None Complications: Yes, unable to thread guidewire in right basilic Patient education materials: Given to patient Questions or problems: Page [phone] SIGNATURE: Yas Lucero RN PATIENT NAME: Lexis Nguyen DATE: July 28, 2023 TIME: 12:37 PM PAGER: [id number] documented in this encounterPromedica Flower [facility]09-06-2023 Miscellaneous Notes* Patient Education - Yas Lucero RN - 07/28/2023 12:33 PM EDT PATIENT EDUCATION TOPIC: PROCEDURE / SURGERY: Procedure/Surgery: midline PATIENT NAME: Lexis Nguyen PATIENT LOCATION: [id number] READINESS TO LEARN COGNITIVE ABILITY: Alert and oriented MOTIVATION TO LEARN: Interested FAMILY SUPPORT: Unable to assess - Family not present INSTRUCTION PROVIDED TO: Patient PATIENT LEARNS BEST BY: Individual Instruction Verbal Instruction FACTORS AFFECTING LEARNING: None PHYSICAL LIMITATIONS AFFECTING LEARNING: Pain LEARNING RESPONSE DIAGNOSIS: ADULT: midline PATIENT/FAMILY RESPONSE: Verbalizes understanding of: POST-PROCEDURE INSTRUCTIONS-Correct actions to take to reduce post procedure complications METHOD OF INSTRUCTION: Individual instruction Written instruction - handouts FOLLOW-UP PLAN: Recommend - Recommend continued instruction and follow up as directed INSTRUCTIONAL AIDS USED: NA SUPPLEMENTAL MATERIAL PROVIDED TO PATIENT: Title of booklet / pamphlet: pamphlet REFERRAL (RECOMMENDATION): None documented in this encounterPromedica F[facility]08-07-2023 History of Present illness Narrative* Stefano Chacon MD - 06/28/2023 1:49 PM EDT Lexis Oakes is a 38 year old woman who presents today for follow up of her history of idiopathic intracranial hypertension (IIH). She has had a very complex history of idiopathic intracranial hypertension (IIH) with symptoms thatbegan in 1999 and diagnosis made in 2006 with an opening pressure on lumbar puncture at one point of 40 cm H2O. She underwent CASINO BANKER shunt in 2009 that was infected and removed. She also underwent gastric bypass in 2013. She has been on Topiramate, acetazolamide (diamox), and lasix for the intracranialhypertension. Migraine and pain medications have included Aimovig, nortriptyline, duloxetine, and as needed tramadol. Her history was further complicated by an idiopathic seizure disorder for which she has been on vimpat. At initial consultation 12/22/22 she reported positional headaches, peripheral vision loss, transient visual obscurations, and pulsatile tinnitus. She denied associated diplopia. The patient's weight had been stable. She denied exposure to topical retin-A / accutane and tetracyclines. She had not recently contracted COVID-19. She was undergoing monthly lumbar punctures with it last performed about2 weeks prior initial consultation . She could tell when she required the next as she would experience an increase in all of her symptoms including transient visual obscurations. The patient's ophthalmic history was otherwise notable for a maternal history of glaucoma. The patient's initial neuro-ophthalmic exam 12/22/22 showed blind spot enlargement with superotemporal constriction on the right visual field and otherwise good afferent function. She did have right greater than left borderline ganglion cell loss on OCT in the setting of prior optic disc edema, withonly the appearance of rim fullness by dilated fundus exam and OCT peripapillary retinal nerve fiber layer. Since she had ongoing pulsatile tinnitus and other symptoms suggestive of intracranial hypertension, had required 129 large volume lumbar punctures, did not tolerate the oral medications, I ordered an MRV to evaluation the caliber of the venous sinuses, with potential referral to Dr. Campos thereafter, with whom I discussed her care. At her 01/11/23 virtual visit she reported ongoing transient visual obscurations in the preceding couple of weeks - slowly getting worse. As time went on she noticed progressive worsening. She continued to experience left worse than right-sided pulsatile tinnitus. She could tell that her vision was declining with it. She was pending lumbar puncture on Monday 01/15 arranged by NeuroIR / anesthesia with that being their absolute earliest date available. MRV of the head with and without contrast did not reveal a structural etiology underlying the patient's symptoms. She was still interested in moving forward with a formal angio to determine if there might be a gradient amenable to stenting. This unfortunately did not ultimately show a gradient so stenting was not indicated. She was eager to undergo lumbar puncture 01/15 with removal of CSF to within normal limits and we planned for in clinic thereafter. At her 03/22/23 she reported worsening vision, positional headaches, pulsatile tinnitus, and new diplopia. Her repeat exam did unfortunately show worsened right visual field defect in the setting of increased high false positives with otherwise stable afferent visual pathway function. Efferent function was intact. I placed another order for lumbar puncture with drainage via IR to be scheduled in conjunction withanesthesia since she required MAC. I contacted the provider who performed her pre-anesthesia consult previously to request assistance getting that scheduled and we tried to facilitate scheduling between anesthesia and IR. Finally, I had a glycohemoglobin drawn in the event she would ultimately be a candidate for a GLP1 inhibitor going forward, which was within normal limits. ASSESSMENT/PLAN: (G93.2) IIH (idiopathic intracranial hypertension) (primary encounter diagnosis) (H53.453) Other localized visual field defect, bilateral She unfortunately developed a post-lumbar puncture headache after her most recent lumbar puncture -that did have an elevated opening pressure of 37 cm H2O - so we she required epidural blood patch placement thereafter. Today (June 28, 2023) she reports that the EBP did help but was a painful process. Since that timeshe has Today's repeat exam showed worsening left visual field defect in the setting of of increased visualsnow syndrome associated symptoms today. There remains no optic disc edema fortunately. That being said, given the burden of symptoms and most recently elevated opening pressure, ideally we will finda better option than monthly lumbar punctures. To that end, we again discussed the potential utility of a GLP-1 inhibitor as per the [place] RCT (PMID: 81500580), which I will discuss with her primary care physician to see if this could be facilitated. The patient is very interested in pursuing this option, even if it were to require weight clinic consultation which will can explore if needed. I have additionally placed another order for a lumbar puncture with IR for opening pressure and drainage to be performed in conjunction with anesthesia. I will plan to see her back in 3 months, unless concerns arise in the interim, for which she was provided my contact information and encouraged to reach out. ER presentation is otherwise advised for any acute onset neurological deficits. Stefano Chacon MD 2:41 PM 06/28/2023 FOR ADMINISTRATIVE PURPOSES ONLY: My impression of this case is based upon an assessment of the the patient's subacute on chronic problems listed above that pose a threat to visual and neurologic function. 50 minutes were spent on total patient care on the day of service that includes both xjep-gy-tenp and lhf-hxqx-jh-face time. This time was separate from any of my time spent completing and interpreting the ancillary testing (such as OCT, fundus photos, visual mauricio) and sensorimotor exam, if applicable. This time was broken down into: 5 minutes reviewing the patient record before the visit, 10 minutes performing a medically appropriate neuro- ophthalmic history and exam (excluding time spent on the ancillary testing and sensorimotor exam, if applicable), 5 communicating results to the patient/family, 5 minutes counseling / educating the patient, 10 minutes documenting clinical information into the electronic health record of the patient, 3 minutes ordering tests/medications/procedures, and 12 minutes coordinating care for the patient. I communicated with Dr. Jasso regarding the management of this patient. The assessment and plan were discussed extensively with the patient who was amenable and voiced understanding. documented in this encounterPromedica [facility]07-14-2023 Instructions* Patient Instructions* Andrew Govea APRN.MICHELLE MONROE - 06/04/2023 8:04 AM EDT PATIENT PREOPERATIVE INSTRUCTIONS Stefano Chacon MD has scheduled you for your procedure at this surgery center: [facility] Scheduling Office: [phone] --[address] [place] [address]. Please read below carefully for your personalized instructions. Dietary Restrictions: - No solid food after midnight. - You may have 12 ounces of clear liquids (water, clear juices such as apple juice or gatorade, carbonated beverages, clear tea, black coffee, jello) until 2 hours before scheduled arrival at facility. Medications: Unless instructed differently below, stay on all of your medications until your surgery. Approved medications to take the morning of surgery with a sip of water: DULOXETINE, VIMPAT and OMEPRAZOLE. If you start any new medications after today's visit, please contact the surgeon's office. Blood Thinning Medications: - Stop NSAIDS (Ibuprofen, Advil, Aleve, Motrin, Celebrex, Mobic, etc.) 7 days before surgery, as directed by your surgeon. - Stop Aspirin 7 days before surgery, as directed by your surgeon. - Stop Vitamin E, ALL multi-vitamins, herbals and dietary supplements 7 days before surgery. - You may take Tylenol (Acetaminophen) or any of your pain medications that do not contain aspirin or NSAIDS as needed. Important Reminders: - Candy, mints, and tobacco products are NOT permitted the morning of surgery. - Hearing aids, dentures and glasses may be worn the morning of surgery. - NO jewelry, body piercings, makeup, hairpins or contacts are to be worn the day of surgery. If you develop symptoms such as a fever, cold, or flu, or have other changes to your health within TWO DAYS of scheduled surgery or the morning of surgery, please contact the surgery center above. Personal Belongings: -Please have photo ID and insurance cards. -If you do not have a copy of advance directives on file with us, please bring a copy with you on the day of surgery. - Leave ALL valuables and money at home or with family members. For Outpatient Procedures: - YOU MUST HAVE A RESPONSIBLE ASSAULT AMPHIBIOUS VEHICLE CREWMAN TAKE YOU HOME. 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 - We recommend that a responsible person stays with you overnight to take care of you. - You cannot stay in a hotel alone after outpatient surgery. You will not be permitted to have yoursurgery, if you do not have someone to take care of you. Arrival Time for Surgery: - To obtain your arrival time for surgery, call your physician's office the day before your surgery. - If your surgery is scheduled for Wednesday, call the Wednesday before. Your surgeon s scheduler maintenance will tell you what time to call the office. - If you have not reached the departmental scheduler maintenance by 5 P.M., call [phone] after 5 P.M. the day before your surgery. Please be aware that emergency situations arise, which may delay or change your surgical time. If this happens, we will notify you as soon as possible and regret any inconvenience. If you already have an Advance Directive, please fax a copy to [phone] or email to for it to be added to your chart. If you do not have an Advance Directive, you can find the appropriate form and more information at [email or web address]. We recommend that youcomplete the Advance Directive form found on the website and bring it with you the day of your surgery. It can be witnessed and scanned into your chart that day. Helen Govea APRN.MICHELLE MONROE documented in this encounterPromedica F[facility]07-14-2023 History and physical note * Andrew Govea APRN.CNP, DNP - 06/04/2023 8:00 AM EDT Images from the original note were not included. HISTORY AND PHYSICAL EXAMINATION SERVICE DATE: 06/03/2023 SERVICE TIME: 8:52 AM PRIMARY CARE PHYSICIAN: Yan Jasso DO REASON FOR VISIT: Lexis Nguyen is a 38 year old female who is scheduled for Procedure(s) with comments: SPINAL PUNCTURE LUMBAR DIAGNOSTIC (N/A) - LP W/ TABBY SPK W/ PT at the request of Dr. @[email or web address]@ for consultation. My final recommendation will be communicated back to the requesting physician by way of shared medical record or letter. Subjective The patient has the following: ACTIVE PROBLEM LIST Anxiety Epilepsy (Hcc) Gastroesophageal Reflux Disease Major Depression, Single Episode Morbid Obesity (Hcc) Iih (Idiopathic Intracranial Hypertension) Difficult Intravenous Access Morbid Obesity With Bmi of 45.0-49.9, Adult (Hcc) Idiopathic Intracranial Hypertension Headaches S/P Gastric Bypass Medical Marijuana Use COVID-19 Immunization Status Overdue - COVID-19 VACCINE (3 - Moderna series) Overdue since 05/28/2021 04/02/2021 Imm Admin: COVID-19 original vaccine, full dose, monovalent (MODERNA) 03/05/2021 Imm Admin: COVID-19 original vaccine, full dose, monovalent (MODERNA) CHIEF COMPLAINT: preop evaluation HPI: Ms. Lexis Nguyen is a 38 year old female with history of chronic headaches. Patient was diagnosed with idiopathic intracranial hypertension in 2006. She had CASINO BANKER shunt placed in 2009 but was removed a couple months later due to an infection. Symptoms include headache and vision changes most especially when she bends over or moves head. Patient is unable to have CASINO BANKER shunts so she undergoes regular lumbar puncture once amonth. REVIEW OF SYSTEMS: General: + Gastric bypass 2013. No weight loss, malaise or fevers. Neurological: Positive for: headaches and seizures (on rx). Negative for: peripheral neuropathy, TIA and strokes. Respiratory: No history of current cough or dyspnea, or pneumonia in the past 6 weeks. No history of respiratory/pulmonary symptoms or problems. Cardiovascular: No history of HTN requiring medication, no history of angina, CHF, [place], cardiac surgery or stents. Denies rest pain, gangrene or revascularization/amputation for PVD. No history of cardiovascular symptoms or problems. GI: Positive for: GERD (on rx) Negative for: abdominal pain, colon cancer, dysphagia, heartburn, hepatitis, liver disease, rectal cancer, vomiting and ETOH >2 drinks/day. : No history of dysuria, frequency or incontinence, stones or chronic kidney disease. No difficulty urinating, nocturia > 1 time per night or hematuria. 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 Endocrine: No history of diabetes. Has not taken steroids within the past 30 days. No history of endocrinological symptoms or problems. Hematology: No history of bleeding or clotting disorder. Patient is not taking anti-coagulation or platelet medications. No history of hematological symptoms or problems. Oncology: No history of CA metastasis, chemo within 30 days, or radiotherapy within 90 days. No history of oncological symptoms or problems. Psych: Positive for: anxiety (on rx) and depression (on rx). Musculoskeletal: Positive for: back pain (chronic). Skin: Negative for lesions, rash and itching. PAST MEDICAL HISTORY Diagnosis Date Difficult intravenous access 02/16/2023 Epilepsy (HCC) IIH (idiopathic intracranial hypertension) PAST SURGICAL HISTORY Procedure Laterality Date APPENDIX NET-EXCIS(APPENDECTOMY)SYNOPTIC 2007 GASTRIC BYPASS HX 2013 HYSTERECTOMY 2021 PAST SURGICAL HISTORY OF 2019 collar bone fracture (hardware placement and removal) PAST SURGICAL HISTORY OF lumbar punctures (132) PAST SURGICAL HISTORY OF 02/2023 brain angiogram PAST SURGICAL HISTORY OF 2009 CASINO BANKER Shunt - removed in 2009 due to infection REMOVAL GALLBLADDER 2015 TONSILLECTOMY HX 2005 FAMILY HISTORY Problem Relation Age of Onset COPD Mother Diabetes Father Ischemic Heart Disease Father Stroke Father Skin Cancer Father Difficulty with anesthesia No Family History Anesthesia Problems No Family History Social History Tobacco Use Smoking status: Never Smokeless tobacco: Never Substance Use Topics Alcohol use: Not Currently Comment: Rare Drug use: Yes Frequency: 7.0 times per week Comment: medical marijuana-vaping Prior to Admission medications as of 06/04/23 2767 Medication Sig Last Dose Taking omeprazole (PRILOSEC) 20 mg capsule Take 1 capsule by mouth once daily. Taking Yes traMADol (ULTRAM) 50 mg tablet Take 1 tablet by mouth twice daily as needed for pain. Taking Yes lacosamide (VIMPAT) 200 mg Take 1 tablet by mouth twice daily. Taking Yes ARIPiprazole (ABILIFY) 10 mg tablet Take 10 mg by mouth once daily. Taking Yes nortriptyline (PAMELOR) 75 mg capsule Take 75 mg by mouth once daily. Taking Yes DULoxetine (CYMBALTA) 60 mg capsule duloxetine 60 mg capsule,delayed release TAKE 1 CAPSULE BY MOUTH TWICE DAILY Taking Yes Calcium Citrate 250 mg calcium tab Take 1 tablet by mouth once daily. Taking Yes lidocaine, PF, (XYLOCAINE) 10 mg/mL (1 %) soln injection 1-10 mL by INTRADERMAL route as needed. For use during PICC/Midline Insertion ONLY. Patient not taking: Reported on 06/04/2023 Not Taking lidocaine, PF, (XYLOCAINE) 10 mg/mL (1 %) soln injection 1-10 mL by INTRADERMAL route as needed. For use during PICC/Midline Insertion ONLY. Patient not taking: Reported on 06/04/2023 Not Taking cyanocobalamin (VITAMIN B-12) 1,000 mcg tab Take 1 tablet by mouth once daily. No medication comments found. ALLERGIES Allergen Reactions Nsaids (Non-Steroid* GI Upset, Contraindication-Medical Surgical Because of gastric bypass Cavanaugh Pepper Rash Gabapentin Mental Status Change, Other: See Comments Tremors Penicillins Hives, Rash Received IV cefazolin at [facility] in 2018 and 2020 prior to procedures Received IV cefazolin at [facility] in 2018 and 2020 prior to procedures Objective PHYSICAL EXAM: General: alert and oriented and healthy appearance. Pertinent negatives noted - not distressed. Skin: normal color, no rash or lesions. HEENT: EOM intact and pupils equal round. Cardiovascular: regular rate and rhythm, normal S1 and S2, no rub, murmurs, or gallop. Respiratory: normal breath sounds, no wheezes or crackles. Abdomen: bowel sounds present and soft. Pertinent negatives noted - not tender. Extremities: no deformity, no edema or tenderness, no joint swelling or clubbing. Neurological: normal cognition and motor skills. PAIN ASSESSMENT: VITALS: BP 113/64 Pulse 104 Temp (Src) 97.5 (Temporal) Ht 5' 4 (1.63m) Wt 266 lb 9.6 oz (120.9kg) SpO2 100% BMI 45.74 kg/(m^2). Diagnostic tests reviewed for today's visit: Lab Value Units Date High Low HB 11.8 g/dL 03/15/2023 15.5 11.5 HCT 36.8 % 03/15/2023 46.0 36.0 WBC 7.00 k/uL 03/15/2023 11.00 3.70 PLT 224 k/uL 03/15/2023 400 150 NA 139 mmol/L 03/15/2023 144 136 K 4.0 mmol/L 03/15/2023 5.1 3.7 GLUC 106 mg/dL 03/15/2023 99 74 BUN 9 mg/dL 03/15/2023 21 7 CREAT 0.74 mg/dL 03/15/2023 0.96 0.58 PTSEC 10.5 sec 03/13/2023 13.0 9.7 INR 1.0 no uni* 03/13/2023 1.3 0.9 INR 1.0 no uni* 03/12/2023 1.2 0.8 APTT 25.0 sec 03/11/2023 32.4 23.0 ALT 17 U/L 03/11/2023 38 7 AST 17 U/L 03/11/2023 35 13 TBILI 0.4 mg/dL 03/11/2023 1.3 0.2 TSH 2.440 mIU/L 03/15/2023 4.200 0.270 Lab Value Units Date High Low HCGQT No results within date range. UHCG No results within date range. HCG, BODY* No results within date range. Lab Value Units Date High Low ABORHD No results within date range. ABSCREEN No results within date range. Hemoglobin A1C (%) Date Value 03/22/2023 5.1 No results found for this or any previous visit (from the past 8760 hour(s)). No results found for this or any previous visit (from the past 69851 hour(s)). Assessment Patient has the following medical conditions which may affect david-operative course: Difficult intravenous access - vascular team consulted. Gastroesophageal reflux disease - Controlled on Omeprazole. Advised avoidance of triggers. Following with PCP. Morbid obesity (HCC) - BMI today is 45.76 Major depression, single episode - Stable on prescription. S/P gastric bypass - S/P gastric bypass in 2013. Epilepsy (HCC) - managed with daily Vimpat. - follows with Neurology. - Most recent : last seizure May 2022, she also reports a short 5 second episode in ED 03/13/23 after given droperidol, see excerpt below ED note 03/13/23 For symptoms given she is having ongoing nausea and vomiting she is being treated with droperidol and fentanyl. After administration of these medications, she did have 1 episode described by the nurse as a episode of jerking. Patient stopped within 5 seconds, myself and my attending quickly attended to bedside, this time patient was alert and conversational, she was able to state I have a history of epilepsy. Clinically she did not appear postictal, no evidence of tongue biting or self urination. A quick reassessment of her neurologic exam revealed she still able to move all extremities, sensation intact, no focal neurologic deficits she quickly regained back to normal baseline mentation. I suspect likely a functional component versus nonepileptiform seizures versus acute reaction as she did receive IV droperidol. Higgins Activity Status Index: METS: Walk indoors, such as around the house (1.75 METs) Do light work around the house, such as dusting or washing dishes (2.70 METs) Walk a block or two on level ground (2.75 METs) Climb a flight of stairs or walk up a hill (5.50 METs) DASI Score: 12.7 Patient denies any chest pain or undue shortness of breath with the above physical activity. Clinical Frailty Scale: 2. Well STOP-Bang Score: BMI greater than 35 kg/m^2 Patient 50 years old or younger Non-male patient STOP-Bang Score: 1 [id number] Score: Age: <65 Sex: female [id number] Score: 1 ARISCAT Score: Age: <=50 Preoperative SpO2: >=96% Preoperative anemia: Yes Duration of surgery: <2 hrs Emergency procedure: No ARISCAT Score: ASA Class: 3 ANESTHESIA FINDINGS: Intubation History: No abnormal airway history Significant Anesthesia Considerations: midline required. Vascular team consulted. potential difficult IV/vein access none Airway History: No abnormal airway history I - PHYSICAL EVALUATION AIRWAY Patient intubated: No. Tracheostomy tube not present Mallampati: I. TM distance: >3 FB. Neck ROM: full ROM without neurological symptoms. Mouth opening: adequate. Short neck: no. Thick neck: no Rangel present: no Lip Bite Test: I Microretrognathia/Micronagthia/Recessed Chin: No DENTAL Dental findings: teeth intact. II - ANESTHESIA PLAN ASA Score: 3 Anesthetic Plan: general Beta Poncho Monitoring Plan Post Procedure Analgesic Plan Prepared for Surgery: optimally prepared for surgery, pending [see comment]. Review of lab result CONSULTS: Patient does not require consults for optimization at this time Planned Anesthetic: general The Following Tests/Procedures Have Been Initiated: Prothrombin time, Activated PTT, CBC and BMP. Instructions Given to Patient: Instructions located in the after visit summary. Patient given verbal and written preop instructions and voices comprehension and compliance. This document has been created with use of voice recognition technology. It may contain inaccuracies, misspellings, inaccurate syntax or word sense that escaped review. SIGNATURE: Andrew Govea APRN.CNP, DNP PATIENT NAME: Lexis Nguyen DATE: June 03, 2023 TIME: 2:21 PM PAGER/CONTACT #: documented in this encounter[facility] History and physical note * Lexis Razo PA-C - 04/01/2023 7:30 AM EDT PREANESTHESIA CONSULT CLINIC TELEHEALTH VISIT Patient has been identified by name and date of : Yes This is a virtual visit using archify video visit. It required patient-provider interaction for themedical decision making as documented below. I have communicated my name and active licensure. The patient's identity and physical location wereverified at the time of this visit. Either the patient or their legal patient accounting representative has been informed of the risks and benefits of and alternatives to treatment through a remote evaluation and consents to proceed with the evaluation remotely. Reason for contact: PACC visit Accompanied by: Self Scheduled Surgery: Procedure(s) (LRB): SPINAL PUNCTURE LUMBAR DIAGNOSTIC (N/A) Subjective CHIEF COMPLAINT: Patient presents with: Pre-Op Visit HPI: This is a 38 year old female who presents for preanesthesia consultation. Patient has had issues with chronic headaches for several years. Patient was diagnosed with idiopathic intracranial hypertension in 2006. She had CASINO BANKER shunt placed in 2009 but was removed a couple months later due to an infection. Since she cannot have shunt, she has to get regular lumbar punctures. She has had 132 lumbar punctures since 2009. Her last 1 was done 02/17/2023. About 3 weeks ago she started having flare insymptoms that when she bends over and stands up she has vision changes from the pressure shift in her head. She also gets headaches. Usually has a get a lumbar puncture once a month. Had a brain angiogram done 03/12/2023 that was normal. ACTIVE PROBLEM LIST Anxiety Epilepsy (Hcc) Gastroesophageal Reflux Disease Major Depression, Single Episode Morbid Obesity (Hcc) Iih (Idiopathic Intracranial Hypertension) Difficult Intravenous Access Morbid Obesity With Bmi of 45.0-49.9, Adult (Hcc) Idiopathic Intracranial Hypertension Headaches S/P Gastric Bypass Medical Marijuana Use PAST MEDICAL HISTORY Diagnosis Date Difficult intravenous access 02/16/2023 Epilepsy (HCC) IIH (idiopathic intracranial hypertension) PAST SURGICAL HISTORY Procedure Laterality Date APPENDIX NET-EXCIS(APPENDECTOMY)SYNOPTIC 2007 GASTRIC BYPASS HX 2013 HYSTERECTOMY 2021 PAST SURGICAL HISTORY OF 2019 collar bone fracture (hardware placement and removal) PAST SURGICAL HISTORY OF lumbar punctures (132) PAST SURGICAL HISTORY OF 02/2023 brain angiogram PAST SURGICAL HISTORY OF 2009 CASINO BANKER Shunt - removed in 2009 due to infection REMOVAL GALLBLADDER 2014 TONSILLECTOMY HX 2005 FAMILY HISTORY Problem Relation Age of Onset COPD Mother Diabetes Father Ischemic Heart Disease Father Stroke Father Skin Cancer Father Difficulty with anesthesia No Family History Anesthesia Problems No Family History Social History Tobacco Use Smoking status: Never Smokeless tobacco: Never Substance Use Topics Alcohol use: Not Currently Comment: Rare Drug use: Yes Frequency: 7.0 times per week Comment: medical marijuana-vaping ALLERGIES Allergen Reactions Nsaids (Non-Steroid* GI Upset, Contraindication-Medical Surgical Because of gastric bypass Green Pepper Rash Gabapentin Mental Status Change, Other: See Comments Tremors Penicillins Hives, Rash Received IV cefazolin at [facility] in 2018 and 2020 prior to procedures Received IV cefazolin at [facility] in 2018 and 2020 prior to procedures MEDICATIONS: Current Outpatient Medications Medication Sig cyanocobalamin (VITAMIN B-12) 1,000 mcg tab Take 1 tablet by mouth once daily. lacosamide (VIMPAT) 200 mg Take 1 tablet by mouth twice daily. ARIPiprazole (ABILIFY) 10 mg tablet Take 10 mg by mouth once daily. nortriptyline (PAMELOR) 75 mg capsule Take 75 mg by mouth once daily. DULoxetine (CYMBALTA) 60 mg capsule duloxetine 60 mg capsule,delayed release TAKE 1 CAPSULE BY MOUTH TWICE DAILY Calcium Citrate 250 mg calcium tab Take 1 tablet by mouth once daily. omeprazole (PRILOSEC) 20 mg capsule Take 1 capsule by mouth once daily. traMADol (ULTRAM) 50 mg tablet Take 1 tablet by mouth twice daily as needed for pain. lidocaine, PF, (XYLOCAINE) 10 mg/mL (1 %) soln injection 1-10 mL by INTRADERMAL route as needed. For use during PICC/Midline Insertion ONLY. Current Facility-Administered Medications Medication Dose Route Frequency fluorescein-benoxinate 0.25-0.4 % 1 Drop (FLURESS) 1 Drop BOTH EYES As Directed proparacaine 0.5 % 1 Drop (ALCAINE) 1 Drop BOTH EYES As Directed Covid Immunization Dates Overdue - COVID-19 VACCINE (3 - Booster for Moderna series) Overdue since 05/28/2021 04/02/2021 Imm Admin: COVID-19 original vaccine, full dose, monovalent (MODERNA) 03/05/2021 Imm Admin: COVID-19 original vaccine, full dose, monovalent (MODERNA) REVIEW OF SYSTEMS: Pain Assessment: General: No weight loss, malaise or fevers. Neuro: See HPI Respiratory: No history of current cough or dyspnea, or pneumonia in the past 6 weeks. No history of respiratory/pulmonary symptoms or problems. Cardiovascular: No history of HTN requiring medication, no history of angina, CHF, [place], cardiac surgery or stents. Denies rest pain, gangrene or revascularization/amputation for PVD. No history of cardiovascular symptoms or problems. GI: Negative for Nausea, Vomiting, Abdominal pain, Liver disease, ETOH > 2 drinks / day, Pancreatitis, Inflammatory bowel disease, IBS +gastric bypass hx +GERD - on med : No history of dysuria, frequency or incontinence,, stones or chronic kidney disease Endocrine: No history of diabetes. Has not taken steroids within the past 30 days. No history of endocrinological symptoms or problems. Hematology: No history of bleeding or clotting disorder. Pt is not taking anti- coagulation or platelet medications. No history of hematological symptoms or problems. Oncology: No history of CA metastasis, chemo within 30 days, or radiotherapy within 90 days. Has not lost 10% of body wt in 6 months. No history of oncological symptoms or problems. Psych: Anxiety, Depression Musculoskeletal: Negative for joint pain or swelling, back pain or muscle pain. Skin: Negative for lesions, rash and itching. Objective PHYSICAL EXAM: Resp 18 Ht 5' 4 (1.63m) Wt 265 lb (120.2kg) BMI 45.46 kg/(m^2). VIDEO EXAM: (if completed, performed via video enabled technology) GENERAL: alert and appropriate, in no distress, well-hydrated, well nourished, and happy, smiling, interactive SKIN: no rash noted HEAD: normocephalic, no abnormality or lesion noted EYES: no injection and visual acuity is grossly normal NOSE: external nose normal without rhinorrhea OROPHARYNX: moist mucus membranes NECK: full ROM, no cervical LNs noted RESPIRATORY: breathing non-labored CHEST: equal chest rise with normal respiratory effort HEART: Patient self palpated carotid pulse, present. Denies skipped beats. No Cyanosis NEUROLOGIC: no obvious deficit Diagnostic tests reviewed for today's visit: Lab Value Units Date High Low HB 11.8 g/dL 03/15/2023 15.5 11.5 HCT 36.8 % 03/15/2023 46.0 36.0 WBC 7.00 k/uL 03/15/2023 11.00 3.70 PLT 224 k/uL 03/15/2023 400 150 NA 139 mmol/L 03/15/2023 144 136 K 4.0 mmol/L 03/15/2023 5.1 3.7 GLUC 106 mg/dL 03/15/2023 99 74 BUN 9 mg/dL 03/15/2023 21 7 CREAT 0.74 mg/dL 03/15/2023 0.96 0.58 PTSEC 10.5 sec 03/13/2023 13.0 9.7 INR 1.0 no uni* 03/13/2023 1.3 0.9 INR 1.0 no uni* 03/12/2023 1.2 0.8 APTT 25.0 sec 03/11/2023 32.4 23.0 ALT 17 U/L 03/11/2023 38 7 AST 17 U/L 03/11/2023 35 13 TBILI 0.4 mg/dL 03/11/2023 1.3 0.2 TSH 2.440 mIU/L 03/15/2023 4.200 0.270 Lab Value Units Date High Low HCGQT No results within date range. UHCG No results within date range. HCG, BODY* No results within date range. Lab Value Units Date High Low ABORHD No results within date range. ABSCREEN No results within date range. Hemoglobin A1C (%) Date Value 03/22/2023 5.1 EEG 03/15/23 Impression: This EEG is within normal limits. No epileptiform discharges or EEG seizures were seen during this recording. MRI Brain 03/16/23 IMPRESSION: No acute brain findings. 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 Partial empty sella and ectatic appearance of the optic nerve sheath bilaterally. These findings can be seen in the setting of elevated intracranial CSF pressure. Otherwise, grossly normal appearance of the brain. EKG 03/15/23 NORMAL SINUS RHYTHM NORMAL ECG All in Epic Impression/Recommendations ASSESSMENT: 1. Preoperative examination 2. Difficult intravenous access Has required ultrasound in past. Required Midline for brain angiogram. Midline order placed 3. Idiopathic intracranial hypertension See HPI, having above procedure 4. Intractable epilepsy without status epilepticus, unspecified epilepsy type (HCC) On daily Vimpat and uses medical marijuana for this. Patient states very well controlled. [facility] [place]. Last full seizure in 05/2022. Had short 5 second episode in ED 03/13/23 after given droperidol, see notes from ED visit copied below. ED note 03/13/23 For symptoms given she is having ongoing nausea and vomiting she is being treated with droperidol and fentanyl. After administration of these medications, she did have 1 episode described by the nurse as a episode of jerking. Patient stopped within 5 seconds, myself and my attending quickly attended to bedside, this time patient was alert and conversational, she was able to state I have a history of epilepsy. Clinically she did not appear postictal, no evidence of tongue biting or self urination. A quick reassessment of her neurologic exam revealed she still able to move all extremities, sensation intact, no focal neurologic deficits she quickly regained back to normal baseline mentation. I suspect likely a functional component versus nonepileptiform seizures versus acute reaction as she did receive IV droperidol. 5. Medical marijuana use Patient advised to hold minimally 1 day prior to procedure and not on DOS 6. Gastroesophageal reflux disease, unspecified whether esophagitis present Stable on omeprazole 7. Major depressive disorder with single episode, remission status unspecified 8. Anxiety Stable on medications 9. Morbid obesity with BMI of 45.0-49.9, adult ([facility]) Body mass index is 45.49 kg/m . 10. S/P gastric bypass Done in 2013 METS: Limited with Headache pain. Right after lumbar puncture, able to do more around house. Walk a block or two on level ground (2.75 METs) Do moderate work around the house such as vacuuming, sweeping floors, or carrying in groceries (3.50 METs) Patient denies any chest pain or undue shortness of breath with the above physical activity. ASA Class: 3 ANESTHESIA FINDINGS: Intubation History: No history of difficult intubation Significant Anesthesia Considerations: Difficult IV in past. Had Midline for brain angiogram. Had to use US in past. Airway Exam: General: Normal appearance Mallampati Score is CLASS II ULBT: Class I - Lower incisors can bite the upper lip above the shauna line Neck: Normal appearance and function, Distance from hyoid to mentum during neck extension is at least 3 finger breaths Mouth: Normal tongue size and Mouth opening greater than 2 finger breaths Dentition: Caps/crowns Airway History: No abnormal airway history STOP BANG Score: Criteria: BMI > 35 Score = 1 PLAN: This patient is optimally prepared for surgery. CONSULTS: Patient does not require consults for optimization at this time. The Following Tests/Procedures Have Been Initiated: Labs not indicated per PACC protocol, EKG not indicated per PACC protocol Planned Anesthetic: Per anesthesia choice Instructions Given to Patient: Patient given verbal instructions and voices comprehension and compliance. Copy sent electronically via My Chart, email, or mobile device. This is a virtual visit. It required patient-provider interaction for the medical decision making as documented above. SIGNATURE: Lexis Razo PA-C PATIENT NAME: Lexis Nguyen DATE: 04/01/2023 TIME: 7:51 AM PAGER/CONTACT #: documented [facility] encounter[facility] Instructions* Patient Instructions* Lexis Razo PA-C - 03/30/2023 11:23 AM EDT PATIENT PREOPERATIVE INSTRUCTIONS Your procedure is at this surgery center: [facility] [place] [facility] Scheduling Office: [phone] --[address] [place] [address]. Please read below carefully for your personalized instructions. Arrival Time for Surgery: - To obtain your arrival time for surgery, call your physician's office the day before your surgery. - If your surgery is scheduled for Wednesday, call the Wednesday before. Your surgeon s scheduler maintenance will tell you what time to call the office. - If you have not reached the departmental scheduler maintenance by 5 P.M., call [phone] after 5 P.M. the day before your surgery. Dietary Restrictions: - No solid food after midnight. - You may have 12 ounces of clear liquids (water, clear juices such as apple juice or gatorade, carbonated beverages, clear tea, black coffee, jello) until 2 hours before scheduled arrival at facility. - No Milk/Dairy - No Pulp Juices Is Patient Diabetic:No Medications: Unless instructed differently below, stay on all of your medications until your surgery. Approved medications to take the morning of surgery with a sip of water: Omeprazole (Prilosec), lacosamide (Vimpat), Ariprazole (Abilify), Duloxetine (Cymbalta) You may continue your pain medication (Tramadol) If you start any new medications after today's visit, please contact the surgeon's office. Blood Thinning Medications: - Stop NSAIDS (Ibuprofen, Advil, Aleve, Motrin, Celebrex, Mobic, etc.) 7 days before surgery, as directed by your surgeon. - Stop Aspirin 7 days before surgery, as directed by your surgeon. - Stop Vitamin E, ALL multi-vitamins, herbals and dietary supplements 7 days before surgery. - You may take Tylenol (Acetaminophen) or any of your pain medications that do not contain aspirin or NSAIDS as needed. Important Reminders: - Candy, mints, and tobacco products are NOT permitted the morning of surgery. - Hearing aids, dentures and glasses may be worn the morning of surgery. - NO jewelry, body piercings, makeup, hairpins or contacts are to be worn the day of surgery. If you develop symptoms such as a fever, cold, or flu, or have other changes to your health within TWO DAYS of scheduled surgery or the morning of surgery, please contact the surgery center above. Personal Belongings: -Please have photo ID and insurance cards. -If you do not have a copy of advance directives on file with us, please bring a copy with you on the day of surgery. - Leave ALL valuables and money at home or with family members. For Outpatient Procedures: - YOU MUST HAVE A RESPONSIBLE ASSAULT AMPHIBIOUS VEHICLE CREWMAN TAKE YOU HOME. 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 - We recommend that a responsible person stays with you overnight to take care of you. - You cannot stay in a hotel alone after outpatient surgery. You will not be permitted to have yoursurgery, if you do not have someone to take care of you. Please be aware that emergency situations arise, which may delay or change your surgical time. If this happens, we will notify you as soon as possible and regret any inconvenience. If you already have an Advance Directive, please fax a copy to [phone] or email to for it to be added to your chart. If you do not have an Advance Directive, you can find the appropriate form and more information at [email or web address]. We recommend that youcomplete the Advance Directive form found on the website and bring it with you the day of your surgery. It can be witnessed and scanned into your chart that day. Lexis Razo PA-C documented in this encounterPromedica [facility]05-[facility] History of Present illness Narrative* Stefano Chacon MD - 03/22/2023 2:10 PM EDT Lexis Oakes is a 38 year old woman who presents today for follow up of her history of idiopathic intracranial hypertension (IIH). She has had a very complex history of idiopathic intracranial hypertension (IIH) with symptoms thatbegan in 1999 and diagnosis made in 2006 with an opening pressure on lumbar puncture at one point of 40 cm H2O. She underwent CASINO BANKER shunt in 2009 that was infected and removed. She also underwent gastric bypass in 2013. She has been on Topiramate, acetazolamide (diamox), and lasix for the intracranialhypertension. Migraine and pain medications have included Aimovig, nortriptyline, duloxetine, and as needed tramadol. Her history was further complicated by an idiopathic seizure disorder for which she has been on vimpat. At initial consultation 12/22/22 she reported positional headaches, peripheral vision loss, transient visual obscurations, and pulsatile tinnitus. She denied associated diplopia. The patient's weight had been stable. She denied exposure to topical retin-A / accutane and tetracyclines. She had not recently contracted COVID-19. She was undergoing monthly lumbar punctures with it last performed about2 weeks prior initial consultation . She could tell when she required the next as she would experience an increase in all of her symptoms including transient visual obscurations. The patient's ophthalmic history was otherwise notable for a maternal history of glaucoma. The patient's initial neuro-ophthalmic exam 12/22/22 showed blind spot enlargement with superotemporal constriction on the right visual field and otherwise good afferent function. She did have right greater than left borderline ganglion cell loss on OCT in the setting of prior optic disc edema, withonly the appearance of rim fullness by dilated fundus exam and OCT peripapillary retinal nerve fiber layer. Since she had ongoing pulsatile tinnitus and other symptoms suggestive of intracranial hypertension, had required 129 large volume lumbar punctures, did not tolerate the oral medications, I ordered an MRV to evaluation the caliber of the venous sinuses, with potential referral to Dr. Campos thereafter, with whom I discussed her care. At her 01/11/23 virtual visit she reported ongoing transient visual obscurations in the preceding couple of weeks - slowly getting worse. As time went on she noticed progressive worsening. She continued to experience left worse than right-sided pulsatile tinnitus. She could tell that her vision was declining with it. She was pending lumbar puncture on Monday 01/15 arranged by NeuroIR / anesthesia with that being their absolute earliest date available. MRV of the head with and without contrast did not reveal a structural etiology underlying the patient's symptoms. She was still interested in moving forward with a formal angio to determine if there might be a gradient amenable to stenting. This unfortunately did not ultimately show a gradient so stenting was not indicated. She was eager to undergo lumbar puncture 01/15 with removal of CSF to within normal limits and we planned for in clinic thereafter. ASSESSMENT/PLAN: (G93.2) IIH (idiopathic intracranial hypertension) (primary encounter diagnosis) (H53.453) Other localized visual field defect, bilateral Today (March 22, 2023) she reports worsening vision, positional headaches, pulsatile tinnitus, and nowdiplopia. Today's repeat exam did unfortunately show worsened right visual field defect in the setting of increased high false positives with otherwise stable afferent visual pathway function. Efferent function was intact. I have placed a (standing) lumbar puncture with drainage via IR to be scheduled in conjunction withanesthesia since she will require MAC. I have contacted the provider who performed her pre-anesthesia consult previously to request assistance getting that scheduled and we have tried to facilitate scheduling between anesthesia and IR. Finally, I would like a glycohemoglobin drawn in the event she would ultimately be a candidate for a GLP1 inhibitor going forward and I will update her via archify regarding those results. I will plan to see her back in 12 weeks, unless concerns arise in the interim, for which she was provided my contact information and encouraged to reach out. ER presentation is otherwise advised for any acute onset neurological deficits. Stefano Chacon MD 3:29 PM 03/22/2023 FOR ADMINISTRATIVE PURPOSES ONLY: My impression of this case is based upon an assessment of the the patient's subacute on chronic problems listed above that pose a threat to visual and neurologic function. 50 minutes were spent on total patient care on the day of service that includes both vpaa-sy-ngqx and tzr-cqwa-qh-face time. This time was separate from any of my time spent completing and interpreting the ancillary testing (such as OCT, fundus photos, visual mauricio) and sensorimotor exam, if applicable. This time was broken down into: 5 minutes reviewing the patient record before the visit, 10 minutes performing a medically appropriate neuro- ophthalmic history and exam (excluding time spent on the ancillary testing and sensorimotor exam, if applicable), 5 communicating results to the patient/family, 5 minutes counseling / educating the patient, 10 minutes documenting clinical information into the electronic health record of the patient, 5 minutes ordering tests/medications/procedures, and 10 minutes coordinating care for the patient. I communicated with Dr. Jasso regarding the management of this patient. The assessment and plan were discussed extensively with the patient who was amenable and voiced understanding. documented in this encounterPromedica Flower Hospital04-27-2023 Miscellaneous Notes* Telephone Encounter - Monique Delaney Sec - 03/18/2023 3:28 PM EDT Images from the original note were not included. Patient accepted appt for 03/22 at 12:00 AGUSTÍN Veronica; Stefano Chacon MD; Delfina Mccain 8 minutes ago (3:17 PM) CJ Yes! 12 is perfect if that works for her. You AGUSTÍN Veronica; Stefano Chacon MD; Delfina Mccain 12 minutes ago (3:12 PM) PS looks like we have 10 on Wednesday. can we do a 12 or 12:30? AGUSTÍN Veronica; Stefano Chacon MD; Delfina Mccain 5 hours ago (9:48 AM) CRISTOBAL Rubin, any chance you can call the Wednesday pt's to see who is coming in? Maybe we will have a cancel MD Maurice Mercado; AGUSTÍN Veronica; Delfina Mccain 6 hours ago (9:14 AM) DC Wednesday is full actually if you check back, perhaps another patient was already added. You Stefano Chacon MD; AGUSTÍN Veronica; Delfina Mccain 6 hours ago (9:03 AM) PS We only have ten on Wednesday, I could put her in for 11:30 is possible. MD Maurice Mercado; JIGNA Veronica 23 hours ago (3:34 PM) DC We will need to get her back into clinic senthil, likely cancellation, though in any spot since she isan established patient. * Telephone Encounter - Monique Parisi - 03/17/2023 1:53 PM EDT Patient called. She was just discharge from the hospital. She had her angiogram Wednesday. She was in immense pain through the weekend. They did an MRI brain which showed excess fluid. She is asking what the next step is. [phone] (home) Stefano Chacon MD filed at 01/11/2023 7:46 AM Status: Signed ??This is a telemedicine visit that was performed using the [employer] platform with the originating site at my work office and the distant site at the patient's home. Verbal consent to participatein a combined audio and video visit was obtained. This visit occurred during the Coronavirus (COVID-19) Public Health Emergency. The patient consented to this virtual visit. I discussed with the patient the nature of our telemedicine visits, that: - I would evaluate the patient and recommend diagnostics and treatments based on my assessment - Our sessions are not being recorded and that personal health information is protected - Our team would provide follow up care in person if/when the patient needs it Lexis Oakes is a 37 year old woman who presents today for follow up of her history of idiopathic intracranial hypertension (IIH). She has had a very complex history of idiopathic intracranial hypertension (IIH) with symptoms thatbegan in 1999 and diagnosis made in 2006 with an opening pressure on lumbar puncture at one point of 40 cm H2O. She underwent CASINO BANKER shunt in 2009 that was infected and removed. She also underwent gastric bypass in 2013. She has been on Topiramate, acetazolamide (diamox), and lasix for the intracranialhypertension. Migraine and pain medications have included Aimovig, nortriptyline, duloxetine, and as needed tramadol. Her history was further complicated by an idiopathic seizure disorder for which she has been on vimpat. At initial consultation 12/22/22 she reported positional headaches, peripheral vision loss, transient visual obscurations, and pulsatile tinnitus. She denied associated diplopia. The patient's weight had been stable. She denied exposure to topical retin-A / accutane and tetracyclines. She had not recently contracted COVID-19. She was undergoing monthly lumbar punctures with it last performed about2 weeks prior initial consultation . She could tell when she required the next as she would experience an increase in all of her symptoms including transient visual obscurations. The patient's ophthalmic history was otherwise notable for a maternal history of glaucoma. The patient's initial neuro-ophthalmic exam 12/22/22 showed blind spot enlargement with superotemporal constriction on the right visual field and otherwise good afferent function. She did have right greater than left borderline ganglion cell loss on OCT in the setting of prior optic disc edema, withonly the appearance of rim fullness by dilated fundus exam and OCT peripapillary retinal nerve fiber layer. Since she had ongoing pulsatile tinnitus and other symptoms suggestive of intracranial hypertension, had required 129 large volume lumbar punctures, did not tolerate the oral medications, I ordered an MRV to evaluation the caliber of the venous sinuses, with potential referral to Dr. Campos thereafter, with whom I discussed her care. ASSESSMENT/PLAN: (G93.2) IIH (idiopathic intracranial hypertension) (primary encounter diagnosis) (H93.A9) Pulsatile tinnitus (H53.453) Other localized visual field defect, bilateral Today (January 11, 2023) she reports experiencing ongoing transient visual obscurations in the last couple of weeks - slowly getting worse. As time goes on she notices progressive worsening. She continues to experience left worse than right-sided pulsatile tinnitus. She can tell that her vision is declining with it. She is pending lumbar puncture on Monday 01/15 arranged by NeuroIR / anesthesia with that being their absolute earliest date available. MRV of the head with and without contrast was personally reviewed and my interpretation is that it did not reveal a structural etiology underlying the patient's symptoms. That being said, she is still interested in moving forward with a formal angio to determine if there might be a gradient amenable to stenting. We will reach out to her after I here back from my colleagues in Neuro-IR. She is eager to undergo lumbar puncture 01/15 with removal of CSF to within normal limits and we will plan to follow up in clinic thereafter, unless concerns arise in the interim, for which the patient was provided my contact information and encouraged to reach out. ER presentation is otherwise advised for any acute onset neurological deficits. Stefano Chacon MD documented in this encounterPromedica Flower [facility]04-26-2023 Miscellaneous Notes* Telephone Encounter - Delfina Mccain - 03/17/2023 4:24 PM EDT Images from the original note were not included. Stefano Chacon MD You; Monique Parisi 30 minutes ago (3:53 PM) DC Hi are you able to please help us to facilitate this repeat lumbar puncture with anesthesia exactlyas it has been completed in the past, thanks so much! DC * Telephone Encounter - Stefano Chacon MD - 03/16/2023 9:25 AM EDT Hi per patient message including you to ensure that this not something you have specifically seen occur following angio, thank you so much! DC * Telephone Encounter - Monique Delaney Sec - 03/15/2023 8:36 AM EDT Stefano Chacon MD filed at 01/11/2023 7:46 AM Status: Signed ??This is a telemedicine visit that was performed using the [employer] virtual platform with the originating site at my work office and the distant site at the patient's home. Verbal consent to participatein a combined audio and video visit was obtained. This visit occurred during the Coronavirus (COVID-19) Public Health Emergency. The patient consented to this virtual visit. I discussed with the patient the nature of our telemedicine visits, that: - I would evaluate the patient and recommend diagnostics and treatments based on my assessment - Our sessions are not being recorded and that personal health information is protected - Our team would provide follow up care in person if/when the patient needs it Lexis Oakes is a 37 year old woman who presents today for follow up of her history of idiopathic intracranial hypertension (IIH). She has had a very complex history of idiopathic intracranial hypertension (IIH) with symptoms thatbegan in 1999 and diagnosis made in 2006 with an opening pressure on lumbar puncture at one point of 40 cm H2O. She underwent CASINO BANKER shunt in 2009 that was infected and removed. She also underwent gastric bypass in 2013. She has been on Topiramate, acetazolamide (diamox), and lasix for the intracranialhypertension. Migraine and pain medications have included Aimovig, nortriptyline, duloxetine, and as needed tramadol. Her history was further complicated by an idiopathic seizure disorder for which she has been on vimpat. At initial consultation 12/22/22 she reported positional headaches, peripheral vision loss, transient visual obscurations, and pulsatile tinnitus. She denied associated diplopia. The patient's weight had been stable. She denied exposure to topical retin-A / accutane and tetracyclines. She had not recently contracted COVID-19. She was undergoing monthly lumbar punctures with it last performed about2 weeks prior initial consultation . She could tell when she required the next as she would experience an increase in all of her symptoms including transient visual obscurations. The patient's ophthalmic history was otherwise notable for a maternal history of glaucoma. The patient's initial neuro-ophthalmic exam 12/22/22 showed blind spot enlargement with superotemporal constriction on the right visual field and otherwise good afferent function. She did have right greater than left borderline ganglion cell loss on OCT in the setting of prior optic disc edema, withonly the appearance of rim fullness by dilated fundus exam and OCT peripapillary retinal nerve fiber layer. Since she had ongoing pulsatile tinnitus and other symptoms suggestive of intracranial hypertension, had required 129 large volume lumbar punctures, did not tolerate the oral medications, I ordered an MRV to evaluation the caliber of the venous sinuses, with potential referral to Dr. Campos thereafter, with whom I discussed her care. ASSESSMENT/PLAN: (G93.2) IIH (idiopathic intracranial hypertension) (primary encounter diagnosis) (H93.A9) Pulsatile tinnitus (H53.453) Other localized visual field defect, bilateral Today (January 11, 2023) she reports experiencing ongoing transient visual obscurations in the last couple of weeks - slowly getting worse. As time goes on she notices progressive worsening. She continues to experience left worse than right-sided pulsatile tinnitus. She can tell that her vision is declining with it. She is pending lumbar puncture on Monday 01/15 arranged by NeuroIR / anesthesia with that being their absolute earliest date available. MRV of the head with and without contrast was personally reviewed and my interpretation is that it did not reveal a structural etiology underlying the patient's symptoms. That being said, she is still interested in moving forward with a formal angio to determine if there might be a gradient amenable to stenting. We will reach out to her after I here back from my colleagues in Neuro-IR. She is eager to undergo lumbar puncture 01/15 with removal of CSF to within normal limits and we will plan to follow up in clinic thereafter, unless concerns arise in the interim, for which the patient was provided my contact information and encouraged to reach out. ER presentation is otherwise advised for any acute onset neurological deficits. Stefano Chacon MD documented in this encounterPromedica Flower [facility]04-25-2023 Miscellaneous Notes* Telephone Encounter - Raiza Silver MD - 03/16/2023 12:06 PM EDT I reached out to Lexis by phone. Her headache has been severe at approximately 10/10 without medications but she is responding to morphine and fentanyl. I informed her that I have reviewed Dr Lovelace's notes and am glad to know that, on exam and CT scans, there are no findings suggestive of any focal abnormalities. We discussed that post angiogram headaches can occur particularly in patient's with chronic headache syndromes, as a post intra-arterial contrast reaction. I informed Lexis that, though low-dose toradol can often provide rapid relief to such headaches, we should avoid it post gastric bypass. It is however very helpful as the Neurology team is on board and would be able to help direct headache treatment from a management standpoint. I also let Lexis know that the duration of her headache is atypical for contrast-related reaction, and as such I do agree that an MRI / MRV of the brain should be completed to rule out any other etiology. The repeat aspirin / clopidogrel resistance panel completed at the [facility] immediately prior to her procedure and the ACT obtained post heparinization during the procedure indicate therapeutic levels of aspirin, ticagrelor and heparin during venous sinus catheterization. While this woulddecrease the risk of venous thrombosis, confirmation is important given her clinical change. Lastly, we confirmed that antiplatelet effects will completely wear off one week after stopping dual antiplatelet therapy. As such, the IR team can perform a next LP safely at that time. (If there should be any doubt or concerns, a repeat ASCLO panel can always be done to confirm that platelet function has returned to normal.) I will continue to follow along and keep an eye out for the MRI/V. Appreciate Neurology and hospitalist teams at [facility]. Appreciate Drs Oswaldo and Jeremiah for their input. Raiza Silver MD Staff, Endovascular Surgical Neuroradiology documented in this encounterPromedica Flower Hospital04-20-2023 Miscellaneous Notes* Telephone Encounter - Chen Castillo RN - 03/11/2023 9:40 AM EDT Patient requesting call back regarding recent lab results. This nurse briefly reviewed and noted that asp/clop panel not drawn. This nurse returned patient call and notified that patient will need toreturn to have this drawn. Patient verbalized understanding and reports she is currently on her wayto the lab. Once results available, this nurse will have SNAKER TRACTOR DRIVER review and call patient back. Chen Castillo RN documented in this encounterPromedica Flower Hospital04-13-2023 Miscellaneous Notes* Telephone Encounter - Chen Castillo RN - 03/04/2023 4:04 PM EDT Reached out to patient per request of ANDREA Plaza. Patient asp/clop panel reviewed by Dr. Silver and not at therapeutic levels. Patient to stop Plavix and ASA 81 mg. Load today with ASA 650 mg and Brilinta 180 mg. Start tomorrow ASA 325 mg daily and Brilinta 90 mg BID. Will repeat panel, and other labsthat were not drawn, next week on 03/11/23. Patient verbalized understanding. Chen Castillo RN documented in this encounterPromedica Flower Hospital04-13-2023 History of Present illness Narrative* Vonda Plaza APRN.CNP - 03/04/2023 2:51 PM EDT Opened in error documented in this encounterPromedica Flower Hospital03-29-2023 Surgical operation note* Brief Op Note - Tamiko Norton PA-C - 02/17/2023 2:31 PM EDT BRIEF OPERATIVE / PROCEDURE NOTE LOG ID: [id number] SURGERY/PROCEDURE DATE: 02/17/2023 INCISION/PROCEDURE START TIME: 1:08 PM INCISION CLOSE/PROCEDURE END TIME: 1:53 PM SURGEON(S)/PROCEDURALIST(S) AND SCREEN CUTTER AND TRIMMER(S): Surgeon(s) and Role: Physician Home Care Attendant: ETHAN Ritchie APRN.SENIOR SOUS CHEF - Home Care Attendant SURGERY/PROCEDURE(S): Therapeutic Lumbar Puncture under Fluoroscopic Guidance ANESTHESIA: Choice - Anesthesia Consult FINDINGS: Successful LP at L2-3, 20 mL of clear CSF obtained. OP: 28 CP: 9 ESTIMATED BLOOD LOSS: Minimal SPECIMENS: None COMPLICATIONS: None PRE-OP/PRE-PROCEDURE DIAGNOSIS: IIH POST-OP/POST-PROCEDURE DIAGNOSIS: Same as Preop SIGNATURE: Tamiko Norton PA-C PATIENT NAME: Lexis Oakes DATE: February 17, 2023 TIME: 2:31 PM documented in this encounterPromedica Flower Hospital03-29-2023 Miscellaneous Notes* Patient Education - Tressa Olivas RN - 02/17/2023 12:29 PM EDT AMBULATORY PATIENT EDUCATION TOPIC: Survival Skills: HEALTH PROMOTION: Self management READINESS TO LEARN COGNITIVE ABILITY: Alert and oriented MOTIVATION TO LEARN: Interested FAMILY SUPPORT: High - Very involved in pt care INSTRUCTION PROVIDED TO: Patient PATIENT LEARNS BEST BY: Verbal Instruction FACTORS AFFECTING LEARNING: None PHYSICAL LIMITATIONS AFFECTING LEARNING: None LEARNING RESPONSE DIAGNOSIS: IIH METHOD OF INSTRUCTION: Verbal instruction PATIENT / FAMILY RESPONSE: Verbalizes understanding of: POST-PROCEDURE INSTRUCTIONS-Correct actionsto take to reduce post procedure complications FOLLOW-UP PLAN: Follow-up with Primary Care SUPPLEMENTAL MATERIAL: None REFERRAL (RECOMMENDATION): None Electronically Signed By: Tressa Olivas RN In Department: HOSP MAIN [id number] * Allied Health - Chris Trevino LPN - 02/17/2023 12:14 PM EDT Consulted to place midline for iv access. Midline is not needed per nurse. Nurse placed PIV with ultrasound guidance. Midline order discontinued. Thanks, Chris Trevino LPN PICC/[id number] documented in this encounterPromedica Flower Hospital03-29-2023 Nurse Note* Glendy Galan RN - 02/17/2023 11:46 AM EDT Pt very hard stick. HARSHAL France placing IV to Right AC under ultrasound now. Pt tolerated well. * Claudette Reyez RN - 02/15/2023 9:47 AM EDT IR Lumbar Puncture Pre Procedure Instructions Lexis aOkes is scheduled for an appointment for LUMBAR PUNCTURE FOR DRAINAGE with anesthesia scheduled on 02/17/23 at [facility], [address] [place] [address]. Arrival: [facility] Entrance. Arrive to [facility] [place] [address] Imaging Department by 10:30 am. Please bring your Photo ID and Insurance Card. Gas Or Petroleum Operator/Transportation: You will need a responsible adult to accompany you to and from the procedure. Your p d driver is required to stay with you until you are taken into the procedure room. Please see updated Visitor Guidelines at [email or web address]. Labs: No labs needed per policy. Platelet Count Date Value Ref Range Status 01/17/2023 263 150 - 400 k/uL Final No results found for: INR Creatinine Date Value Ref Range Status 01/17/2023 0.66 0.51 - 0.95 mg/dL Final Comment: Patients receiving either N-Acetylcysteine (NAC) or Metamizole prior to venipuncture, may have falsely depressed results. Diet: This procedure is performed with anesthesia. Do not eat solid food after midnight the night before your procedure. You may have water until your arrival time Clothing: Wear comfortable clothing, you will not need to change into a hospital gown. Medications: Do you have any allergies? ALLERGIES Allergen Reactions Nsaids (Non-Steroid* GI Upset, Contraindication-Medical Surgical Because of gastric bypass Green Pepper Rash Gabapentin Mental Status Change, Other: See Comments Tremors Penicillins Hives, Rash Received IV cefazolin at [facility] in 2018 and 2020 prior to procedures Received IV cefazolin at [facility] in 2019 and 2020 prior to procedures If ok with your Prescribing Provider: RADIOLOGY RECOMMENDS THESE MEDICATION RESTRICTIONS: Stop None prior to procedure date. Do you have a Spinal Stimulator? No - If yes, it must be turned off prior to entering the procedureroom. Please bring remote with you to procedure. Recovery expectations: You will be in the recovery room post procedure for a minimum of 1 hour(s). Special concerns: Do you have a Neulasta Onpro Device or will you have one on the day of procedure? No - If yes, Imaging Exam should be rescheduled Do you have any medication pumps or monitoring devices on your body? No Do you have any questions, concerns? No If you have any questions please call [phone], Neuro Interventional Radiology Claudette Reyez RN documented in this encounterPromedica Flower Hospital03-28-2023 History and physical note * Rica Lazaro PA-C - 02/16/2023 2:40 PM EDT HISTORY AND PHYSICAL EXAMINATION SERVICE DATE: 02/16/2023 SERVICE TIME: 2:21 PM PRIMARY CARE PHYSICIAN: Kenyon Jasso MD REASON FOR VISIT: Lexis Oakes is a 37 year old female who is scheduled for SPINAL PUNCTURE LUMBAR DIAGNOSTIC and TRANSCATH PLCMNT OF INTRACRANIAL INTRAVASCULAR STENT NON- SELECTIVE CATH PLACEMENT THORACIC AORTA W/ ANGIOGRAPHY OF THE EXTRACRANIAL CAROTID VERTEBRAL AND/OR INTRACRANIAL VESSELS BILATERAL W/ ANGIOGRAPHY OF THE CERVICOCEREBRAL ARCH at the request of Dr. Stefano Chacon for consultation. My final recommendation will be communicated back to the requesting physician by way of shared medical record or letter. The patient has the following: ACTIVE PROBLEM LIST Anxiety Epilepsy (Hcc) Gastroesophageal Reflux Disease Major Depression, Single Episode Morbid Obesity (Hcc) Iih (Idiopathic Intracranial Hypertension) Difficult Intravenous Access Subjective CHIEF COMPLAINT: IIH HPI: 37 year old female scheduled for SPINAL PUNCTURE LUMBAR DIAGNOSTIC and TRANSCATH PLCMNT OF INTRACRANIAL INTRAVASCULAR STENT NON-SELECTIVE CATH PLACEMENT THORACIC AORTA W/ ANGIOGRAPHY OF THE EXTRACRANIAL CAROTID VERTEBRAL AND/OR INTRACRANIAL VESSELS BILATERAL W/ ANGIOGRAPHY OF THE CERVICOCEREBRAL ARCH on 02/17/23 and 03/12/23. Patient has IIH that has been present since 2006. She had a CASINO BANKER shuntplaced in 2009 but was removed. She gets frequent lumbar punctures. She is complaining of vision problems, headaches, and pulsatile tinnitus. Denies any fever, chills, nausea, vomiting, chest pain, abdominal pain, SOB. PAST MEDICAL HISTORY Diagnosis Date Difficult intravenous access 02/16/2023 Epilepsy (HCC) IIH (idiopathic intracranial hypertension) PAST SURGICAL HISTORY Procedure Laterality Date APPENDIX NET-EXCIS(APPENDECTOMY)SYNOPTIC GASTRIC BYPASS HX HYSTERECTOMY PAST SURGICAL HISTORY OF collar bone fracture (hardware placement and removal) PAST SURGICAL HISTORY OF lumbar punctures (130) REMOVAL GALLBLADDER FAMILY HISTORY Problem Relation Age of Onset Difficulty with anesthesia No Family History Anesthesia Problems No Family History SOCIAL HISTORY: Social History Tobacco Use Smoking status: Never Smokeless tobacco: Never Substance Use Topics Alcohol use: Not Currently Comment: Rare Drug use: Yes Frequency: 7.0 times per week Comment: medical marijuana-vaping Prior to Admission medications as of 02/16/23 1422 Medication Sig Last Dose Taking amitriptyline (ELAVIL) 10 mg tablet Take 10 mg by mouth daily at bedtime. Taking Yes RABEprazole (ACIPHEX) 20 mg tablet Take 1 tablet by mouth once daily. Taking Yes lacosamide (VIMPAT) 200 mg Take 1 tablet by mouth twice daily. Taking Yes ARIPiprazole (ABILIFY) 10 mg tablet Take 10 mg by mouth once daily. Taking Yes traMADol (ULTRAM) 50 mg tablet tramadol 50 mg tablet TAKE 1 TABLET BY MOUTH TWICE DAILY NEEDED FOR PAIN Taking Yes nortriptyline (PAMELOR) 75 mg capsule Take 75 mg by mouth once daily. Taking Yes therapeutic multivitamin (THERA VITAMIN) tablet Take 1 tablet by mouth. Taking Yes LORazepam (ATIVAN) 0.5 mg Taking Yes DULoxetine (CYMBALTA) 60 mg capsule duloxetine 60 mg capsule,delayed release TAKE 1 CAPSULE BY MOUTH TWICE DAILY Taking Yes cholecalciferol (VITAMIN D3) 1,000 unit tab tablet Take 1,000 Units by mouth. Taking Yes Calcium Citrate 250 mg calcium tab Take 1 tablet by mouth once daily. Taking Yes ARIPiprazole (ABILIFY) 2 mg tablet Take 1 tablet by mouth. Taking Yes traZODone (DESYREL) 50 mg tablet Take 1 tablet by mouth daily at bedtime. Patient not taking: Reported on 02/16/2023 Not Taking aspirin, enteric coated (ASPIRIN EC) 81 mg EC tablet Take 1 tablet by mouth once daily. Patient not taking: Reported on 02/16/2023 Not Taking clopidogrel (PLAVIX) 75 mg tablet Take 1 tablet by mouth once daily. Patient not taking: Reported on 02/16/2023 Not Taking LACOSAMIDE ORAL Take by mouth. Patient not taking: Reported on 02/16/2023 Not Taking No medication comments found. ALLERGIES Allergen Reactions Nsaids (Non-Steroid* GI Upset, Contraindication-Medical Surgical Because of gastric bypass Green Pepper Rash Gabapentin Mental Status Change, Other: See Comments Tremors Penicillins Hives, Rash Received IV cefazolin at [facility] in 2018 and 2020 prior to procedures Received IV cefazolin at [facility] in 2018 and 2020 prior to procedures COVID VACCINATION STATUS: Fully vaccinated REVIEW OF SYSTEMS: PAIN ASSESSMENT: Pain Pain Level: 8 Pain Location: Head Description: Pressure Duration Amount of Time: 16 Duration Units: Years Frequency: Continuous Intervention/Comfort measure: Medication General: No weight loss, malaise or fevers. Neuro: See HPI+Epilepsy-last seizure 05/2022 Follows with neurology Respiratory: No history of current cough or dyspnea, or pneumonia in the past 6 weeks. No history of respiratory/pulmonary symptoms or problems. Cardiovascular: No history of HTN requiring medication, no history of angina, CHF, [place], cardiac surgery or stents. Denies rest pain, gangrene or revascularization/amputation for PVD. No history of cardiovascular symptoms or problems. GI: Negative for PUD, Nausea, Vomiting, Abdominal pain, Hepatitis, Liver disease, Ascites, Pancreatitis, Inflammatory bowel disease, IBS+GERD, +hx of gastric bypass : No history of dysuria, frequency or incontinence,, stones or chronic kidney disease STOCK PATCHER: Negative for abnormal vaginal bleeding, abnormal vaginal discharge. : Denies, No LMP recorded. Patient has had a hysterectomy. Endocrine: No history of diabetes. Has not taken steroids within the past 30 days. No history of endocrinological symptoms or problems. Hematology: No history of bleeding or clotting disorder. Pt is not taking anti- coagulation or platelet medications. No history of hematological symptoms or problems. Oncology: No history of CA metastasis, chemo within 30 days, or radiotherapy within 90 days. Has not lost 10% of body wt in 6 months. No history of oncological symptoms or problems. Psych: Anxiety, Depression Musculoskeletal: Negative for joint pain or swelling, back pain or muscle pain. Skin: Negative for lesions, rash and itching. Objective PHYSICAL EXAM: VITALS: BP 132/82 Pulse 110 Temp (Src) 98.6 (Temporal) Ht 5' 4 (1.63m) Wt 272 lb 9.6 oz (123.7kg) SpO2 100% BMI 46.77 kg/(m^2). General: Alert and oriented, No acute distress Skin: Normal color, no rash, no lesions. HEENT: EOM, pupils equal, round and reactive., No carotid bruits Cardiovascular: Normal S1 & S2, no rubs, murmurs or gallops. No JVD. Pulse regular. Lungs: Normal breath sounds, no wheezes or crackles. Extremities: No deformity, no edema or tenderness, no joint swelling or clubbing. Neurological: Normal cognition and motor skills. Gait normal. No weakness or sensory deficit. Pulses: Radial pulses normal +2. Diagnostic tests reviewed for today's visit: Lab Value Units Date High Low HB 13.4 g/dL 01/18/2023 15.5 11.5 HCT 40.4 % 01/18/2023 46.0 36.0 WBC 8.88 k/uL 01/18/2023 11.00 3.70 PLT 263 k/uL 01/18/2023 400 150 NA 140 mmol/L 01/18/2023 145 136 K 4.3 mmol/L 01/18/2023 5.1 3.5 GLUC 64 mg/dL 01/18/2023 100 70 BUN 21 mg/dL 01/18/2023 26 7 CREAT 0.66 mg/dL 01/18/2023 0.95 0.51 PTSEC No results within date range. INR No results within date range. APTT No results within date range. ALT 18 U/L 01/18/2023 61 13 AST 20 U/L 01/18/2023 34 8 TBILI 0.2 mg/dL 01/18/2023 1.0 0.2 TSH No results within date range. Lab Value Units Date High Low HCGQT No results within date range. UHCG No results within date range. HCG, BODY* No results within date range. Lab Value Units Date High Low ABORHD No results within date range. ABSCREEN No results within date range. No results found for: HBA1C Labs pending EKG 01/17/23 Normal sinus rhythm Normal ECG No previous ECGs available Assessment/Plan Epilepsy (HCC) -stable on Vimpat and medical marijuana vape -last seizure 05/2022 -follows with neurology II (idiopathic intracranial hypertension) -has had 130 lumbar punctures, scheduled for one tomorrow -scheduled for surgery 03/12/23 Gastroesophageal reflux disease -stable on PPI Morbid obesity (HCC) -Body mass index is 46.79 kg/m . -history of gastric bypass Difficult intravenous access -typically requires US machine -midline ordered for stent placement METS: Climb a flight of stairs or walk up a hill (5.50 METs) Patient denies any chest pain or undue shortness of breath with the above physical activity. ASA Class: 3 ANESTHESIA FINDINGS: Intubation History: No history of difficult intubation Significant Anesthesia Considerations: Difficult IV/Vein Access: deep veins, typically requires US machine Midline ordered for stent placement Airway Exam: General: Morbid obesity Mallampati Score is CLASS I ULBT: Class I - Lower incisors can bite the upper lip above the shauna line Neck: Normal function, Distance from hyoid to mentum during neck extension is at least 3 finger breaths, Short neck, thick neck Mouth: Normal tongue size and Mouth opening greater than 2 finger breaths Dentition: Caps/crowns chipped teeth and missing teeth Airway History: No abnormal airway history Sleep Apnea Probability Snores loudly: No Tired, fatigued or sleepy in daytime: No Stops breathing or choking/gasping during sleep: No High blood pressure: No Sleep Apnea Probability Score 01/08/2023 Sleep Apnea Screen V2 1 (Sleep study not recommended) PLAN This patient is optimally prepared for surgery pending LABS. CONSULTS: Patient does not require consults for optimization at this time. The Following Tests/Procedures Have Been Initiated: CBC, CMP, PT, aPTT, T&S, and CON ordered for stent placement, to be drawn 03/04/23. EKG 01/17/23 reviewed and accepted. Planned Anesthetic: Per anesthesia choice Instructions Given to Patient: Instructions located in the after visit summary. Patient given verbal and written preop instructions and voices comprehension and compliance. SIGNATURE: Rica Lazaro PA-C PATIENT NAME: Lexis Oakes DATE: February 16, 2023 TIME: 2:41 PM documented in this encounterPromedica Flower Hospital03-28-2023 Instructions* Patient Instructions* Rica Lazaro PA-C - 02/16/2023 2:30 PM EDT PATIENT PREOPERATIVE INSTRUCTIONS Stefano Chacon MD has scheduled you for your procedure at this surgery center: [facility] Scheduling Office: [phone] --[address] [place] [address]. Please read below carefully for your personalized instructions. Dietary Restrictions: - No solid food after midnight. - You may have 12 ounces of clear liquids (water, clear juices such as apple juice or gatorade, carbonated beverages, clear tea, black coffee, jello) until 2 hours before scheduled arrival at facility. Medications: Unless instructed differently below, stay on all of your medications until your surgery. Approved medications to take the morning of surgery with a sip of water: duloxetine, Vimpat, Aciphex If you start any new medications after today's visit, please contact the surgeon's office. Blood Thinning Medications: - Stop NSAIDS (Ibuprofen, Advil, Aleve, Motrin, Celebrex, Mobic, etc.) 7 days before surgery, as directed by your surgeon. - Stop Vitamin E, ALL multi-vitamins, herbals and dietary supplements 7 days before surgery. - You may take Tylenol (Acetaminophen) or any of your pain medications that do not contain aspirin or NSAIDS as needed. - Start aspirin and Plavix as instructed by the surgical team Important Reminders: - Candy, mints, and tobacco products are NOT permitted the morning of surgery. - Hearing aids, dentures and glasses may be worn the morning of surgery. - NO jewelry, body piercings, makeup, hairpins or contacts are to be worn the day of surgery. If you develop symptoms such as a fever, cold, or flu, or have other changes to your health within TWO DAYS of scheduled surgery or the morning of surgery, please contact the surgery center above. Personal Belongings: -Please have photo ID and insurance cards. -If you do not have a copy of advance directives on file with us, please bring a copy with you on the day of surgery. - Leave ALL valuables and money at home or with family members. For Outpatient Procedures: - YOU MUST HAVE A RESPONSIBLE ASSAULT AMPHIBIOUS VEHICLE CREWMAN TAKE YOU HOME. 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 - We recommend that a responsible person stays with you overnight to take care of you. - You cannot stay in a hotel alone after outpatient surgery. You will not be permitted to have yoursurgery, if you do not have someone to take care of you. Arrival Time for Surgery: - To obtain your arrival time for surgery, call your physician's office the day before your surgery. - If your surgery is scheduled for Wednesday, call the Wednesday before. Your surgeon s scheduler maintenance will tell you what time to call the office. - If you have not reached the departmental scheduler maintenance by 5 P.M., call [phone] after 5 P.M. the day before your surgery. Please be aware that emergency situations arise, which may delay or change your surgical time. If this happens, we will notify you as soon as possible and regret any inconvenience. If you already have an Advance Directive, please fax a copy to [phone] or email to for it to be added to your chart. If you do not have an Advance Directive, you can find the appropriate form and more information at [email or web address]. We recommend that youcomplete the Advance Directive form found on the website and bring it with you the day of your surgery. It can be witnessed and scanned into your chart that day. Rica Lazaro PA-C documented in this encounterPromedica Flower Hospital03-27-2023 Miscellaneous Notes* Telephone Encounter - Yanira Liao Pss - 02/15/2023 10:30 AM EDT Spoke to Lexis regarding new prescription sent by Dr. Silver. Patient advise Protonix was discontinued and Aciphex was sent to [facility] pharmacy on 02/13. Yanira Liao Pss documented in this encounterPromedica Flower Hospital03-15-2023 Miscellaneous Notes* Telephone Encounter - Chen Castillo RN - 02/03/2023 11:30 AM EDT Called patient to discuss scheduling venous manometry and stenting on 03/12/23 at [facility] per her discussion with Dr. Silver. Patient reports this date will work. Patient already has [facility] appointment in place for her upcoming LP. We reviewed starting Aspirin 81mg and Plavix 75mg on 02/24 and patientwill obtain aspirin/clopidogrel panel and other labs on 03/02/23. Will send procedure instructions via [place]. No other questions at this time. Chen Castillo RN documented in this encounterPromedica Flower Hospital03-14-2023 Miscellaneous Notes* Telephone Encounter - Kathryn Gonzalez RN - 02/02/2023 11:43 AM EDT Received a message from our executive secretary social welfare, Vilma, that the patient had called in with multiple questions about her stent procedure with Dr. Silver. Returned patient call. Patient was concerned about taking coated ASA and Plavix due to her history of gastric bypass. Per Dr. Silver, the patient would be on duel antiplatelet therapy for 3-6 months and then we would keep her on the Plavix after that instead of the aspirin. The Aspirin would be coated and short term. She wanted to know if she could be on Warfarin instead. Dr. Silver stated that this would not work the same and she could not be on this instead. Finally, the patient asked if the stent could be removed if not successful. She expressed a lot of concerns due to her history of shunt infection previously. Dr. Silver stated that this would be permanent. Patient verbalized understanding. Kathryn Gonzalez RN documented in this encounterPromedica Flower Hospital03-13-2023 Miscellaneous Notes* Telephone Encounter - Kathryn Gonzalez RN - 02/01/2023 2:43 PM EDT Called patient back after speaking with Dr. Silver to let her know that it was okay if she started her blood thinners on the 7th instead of the 5th as they had originally discussed. Patient was appreciative for the update. Kathryn Gonzalez RN documented in this encounterPromedica Flower Hospital03-10-2023 Miscellaneous Notes* Telephone Encounter - Kathryn Gonzalez RN - 01/29/2023 4:03 PM EST Patient called in to ask if she could start her blood thinners on the 7th instead of the 5th. She has had an appointment to get a tattoo on the . I let her know that I would see Dr. Silver in clinicon Wednesday and would ask her then. I could call her back on Wednesday to clarify. Patient was appreciative. Kathryn Gonzalez RN documented in this encounterPromedica Flower Hospital02-24-2023 Surgical operation note* Brief Op Note - Abner Lambert MD - 01/15/2023 8:49 AM ESTSummary: Brief Op Note BRIEF OPERATIVE / PROCEDURE NOTE LOG ID: [id number] SURGERY/PROCEDURE DATE: 01/15/2023 INCISION/PROCEDURE START TIME: 8:30 AM INCISION CLOSE/PROCEDURE END TIME: 8:45 AM SURGEON(S)/PROCEDURALIST(S) AND SCREEN CUTTER AND TRIMMER(S): MD Abner Humphries MD SURGERY/PROCEDURE(S): Image guided therapeutic lumbar puncture ANESTHESIA: Choice - Anesthesia Consult FINDINGS: Successful therapeutic LP ESTIMATED BLOOD LOSS: 0 ml SPECIMENS: None COMPLICATIONS: None PRE-OP/PRE-PROCEDURE DIAGNOSIS: IIH POST-OP/POST-PROCEDURE DIAGNOSIS: Same as Preop SIGNATURE: Abner Lambert MD PATIENT NAME: Lexis Oakes DATE: January 15, 2023 TIME: 8:49 AM documented in this encounterPromedica Flower Hospital02-24-2023 Miscellaneous Notes* Patient Education - Kavya Remy RN - 01/15/2023 8:07 AM EST AMBULATORY PATIENT EDUCATION TOPIC: Survival Skills: SURVIVAL SKILLS: Symptom Management READINESS TO LEARN COGNITIVE ABILITY: Alert and oriented MOTIVATION TO LEARN: Interested FAMILY SUPPORT: High - Very involved in pt care INSTRUCTION PROVIDED TO: Patient and Spouse PATIENT LEARNS BEST BY: Individual Instruction Verbal Instruction FACTORS AFFECTING LEARNING: None PHYSICAL LIMITATIONS AFFECTING LEARNING: None LEARNING RESPONSE DIAGNOSIS: Benign ICH METHOD OF INSTRUCTION: Individual instruction Verbal instruction PATIENT / FAMILY RESPONSE: Verbalizes understanding of: POST-PROCEDURE INSTRUCTIONS-Correct actionsto take to reduce post procedure complications FOLLOW-UP PLAN: Follow-up with Primary Care SUPPLEMENTAL MATERIAL: None REFERRAL (RECOMMENDATION): None Electronically Signed By: Kavya Remy RN In Department: HOSP MAIN [id number] documented in this encounterPromedica Flower Hospital02-21-2023 History and physical note * Joana Rodriguez APRN.CNP - 01/12/2023 7:30 AM EST PREANESTHESIA CONSULT CLINIC This is a virtual visit using archify video visit. It required patient-provider interaction for themedical decision making as documented below. Patient has been identified by name and date of : Yes Reason for call: [facility] visit Accompanied by: Self & Patient name: Lexis Oakes Scheduled Surgery: Procedure(s) (LRB): SPINAL PUNCTURE LUMBAR DIAGNOSTIC (N/A) CHIEF COMPLAINT: Patient presents with: Anesthesia Consult HPI: 37 year old year old presents to [facility] for evaluation. Patient was dx in 2006 with IIH. Since she has undergone 129 lumbar punctures. Is currently in need of LP and is experiencing headaches, visual problems, pain and nausea. She has elected for above recommended surgical procedure. ACTIVE PROBLEM LIST Anxiety Epilepsy (Hcc) Gastroesophageal Reflux Disease Major Depression, Single Episode Morbid Obesity (Hcc) Iih (Idiopathic Intracranial Hypertension) PAST MEDICAL HISTORY Diagnosis Date Epilepsy (HCC) IIH (idiopathic intracranial hypertension) PAST SURGICAL HISTORY Procedure Laterality Date APPENDIX NET-EXCIS(APPENDECTOMY)SYNOPTIC GASTRIC BYPASS HX HYSTERECTOMY REMOVAL GALLBLADDER FAMILY HISTORY Problem Relation Age of Onset Difficulty with anesthesia No Family History Social History: Social History Tobacco Use Smoking status: Never Smokeless tobacco: Never Substance Use Topics Alcohol use: Not Currently Comment: Rare Drug use: Yes Frequency: 7.0 times per week Comment: medical marijuana MEDICATIONS: Current Inpatient Medications Current Outpatient Medications Medication Sig traMADol (ULTRAM) 50 mg tablet tramadol 50 mg tablet TAKE 1 TABLET BY MOUTH TWICE DAILY NEEDED FOR PAIN omeprazole (PRILOSEC) 20 mg capsule Take 20 mg by mouth once daily. nortriptyline (PAMELOR) 75 mg capsule Take 75 mg by mouth once daily. therapeutic multivitamin (THERA VITAMIN) tablet Take 1 tablet by mouth. LORazepam (ATIVAN) 0.5 mg DULoxetine (CYMBALTA) 60 mg capsule duloxetine 60 mg capsule,delayed release TAKE 1 CAPSULE BY MOUTH TWICE DAILY cholecalciferol (VITAMIN D3) 1,000 unit tab tablet Take 1,000 Units by mouth. Calcium Citrate 250 mg calcium tab Take by mouth. ARIPiprazole (ABILIFY) 2 mg tablet Take 1 tablet by mouth. LACOSAMIDE ORAL Take by mouth. No current facility-administered medications for this visit. ALLERGIES: ALLERGIES Allergen Reactions Nsaids (Non-Steroid* Contraindication-Medical Surgical, GI Upset Because of gastric bypass Because of gastric bypass Gabapentin Mental Status Change, Other: See Comments, Unknown Tremors Other reaction(s): Other (See Comments), Tremor Tremors Penicillins Hives, Rash Received IV cefazolin at [facility] in 2019 and 2020 prior to procedures Received IV cefazolin at [facility] in 2019 and 2020 prior to procedures REVIEW OF SYSTEMS: PAIN ASSESSMENT: General: No weight loss, malaise or fevers. Neuro: Negative for TIA's Headaches Stroke-residual deficit Stroke-No residual deficit +Epilepsy (Last in May) [facility] [place] Respiratory: No history of current cough or dyspnea, or pneumonia in the past 6 weeks. No history of respiratory/pulmonary symptoms or problems. Cardiovascular: No history of HTN requiring medication, no history of angina, CHF, [place], cardiac surgery or stents. Denies rest pain, gangrene or revascularization/amputation for PVD. No history of cardiovascular symptoms or problems. GI: Negative for Nausea, Vomiting, Abdominal pain, Hepatitis, Liver disease, IBS +GERD : No history of dysuria, frequency or incontinence,, stones or chronic kidney disease STOCK PATCHER: Negative for abnormal vaginal bleeding, abnormal vaginal discharge. : Denies, No LMP recorded. Endocrine: No history of diabetes. Has not taken steroids within the past 30 days. No history of endocrinological symptoms or problems. Hematology: No history of bleeding or clotting disorder. Pt is not taking anti- coagulation or platelet medications. No history of hematological symptoms or problems. Oncology: No history of CA metastasis, chemo within 30 days, or radiotherapy within 90 days. Has not lost 10% of body wt in 6 months. No history of oncological symptoms or problems. Psych: Anxiety, Depression Musculoskeletal: Back pain Skin: Negative for lesions, rash and itching. PHYSICAL EXAM: VITAL SIGNS: Ht 5' 4 (1.63m) Wt 260 lb (117.9kg) BMI 44.61 kg/(m^2). GENERAL: alert and appropriate, in no distress, well-hydrated, well nourished, and happy, smiling, interactive SKIN: no rash noted HEAD: normocephalic, no abnormality or lesion noted EARS: hearing grossly normal OROPHARYNX: moist mucus membranes NECK: full ROM, no cervical LNs noted RESPIRATORY: breathing non-labored CHEST: equal chest rise with normal respiratory effort HEART: No edema, cyanosis, or JVD noted. NEUROLOGIC: no obvious deficit Diagnostic tests reviewed for today's visit: No new labs or tests Assessment/Plan Epilepsy (HCC) Assessment: Stable Last seizure was May of 2022 On Lacosamide & uses medical marijuana daily IIH (idiopathic intracranial hypertension) Assessment: Was dx in 2006 Has had 129 previous LP The pressure causes headaches, nausea, pain, and visual disturbances Follows with Neuro at [facility] [place] Gastroesophageal reflux disease Assessment: Stable on omeprazole Major depression, single episode Assessment: Stable on Abilify and cymbalta Anxiety Assessment: Stable Lorazepam at HS Morbid obesity (HCC) Assessment: Body mass index is 44.63 kg/m . METS: Do moderate work around the house such as vacuuming, sweeping floors, or carrying in groceries (3.50 METs) Climb a flight of stairs or walk up a hill (5.50 METs) Patient denies any chest pain or undue shortness of breath with the above physical activity. ASA Class: 3 ANESTHESIA FINDINGS: Intubation History: No history of difficult intubation Significant Anesthesia Considerations: None Airway Exam: General: Normal appearance Mallampati Score is CLASS III ULBT: Class II - Lower incisors can bite the upper lip below the shauna line Neck: Normal appearance and function, Distance from hyoid to mentum during neck extension is at least 3 finger breaths Mouth: Normal tongue size and Mouth opening greater than 2 finger breaths Dentition: Intact and Caps/crowns Airway History: No abnormal airway history STOP BANG Score: Criteria: Hypertension BMI > 35 Score = 2 PLAN This patient is optimally prepared for surgery. CONSULTS: Patient does not require consults for optimization at this time. The Following Tests/Procedures Have Been Initiated: Labs not indicated per PACC protocol, EKG not indicated per [facility] protocol Planned Anesthetic: Per anesthesia choice Instructions Given to Patient: Patient given verbal instructions and voices comprehension and compliance. Copy sent electronically via My Chart, email, or mobile device. SIGNATURE: Joana Rodriguez APRN.CNP PATIENT NAME: Lexis Oakes DATE: January 11, 2023 TIME: 7:43 AM PAGER/CONTACT #: documented in this encounterPromedica Flower Hospital02-20-[facility]23 Nurse Note* Kavya Remy RN - 01/11/2023 11:50 AM EST IR Lumbar Puncture Pre Procedure Instructions: 01/15/2023 arrival time 615am Lexis Oakes is scheduled for an appointment for LUMBAR PUNCTURE DIAGNOSTIC with general anesthetic scheduled on Sunday, January 15, 2023 at [facility], [address] [place] [address]. Arrival: [facility] Entrance. Arrive to [facility] Imaging Department by 615am Please bring your Photo ID and Insurance Card. Gas Or Petroleum Operator/Transportation: You will need a responsible adult to accompany you to and from the procedure. Your p d driver is required to stay with you until you are taken into the procedure room. Please see updated Visitor Guidelines at [email or web address]. Labs: No labs needed per policy. Diet: This procedure is performed with general anesthetic. Do not eat solid food after midnight the day before the procedure. Clothing: Wear comfortable clothing, you will need to change into a hospital gown. Medications: If ok with your Prescribing Provider: RADIOLOGY RECOMMENDS THESE MEDICATION RESTRICTIONS: Stop None prior to procedure date. Do you have a Spinal Stimulator? - If yes, it must be turned off prior to entering the procedure room. Please bring remote with you to procedure. Contrast Dye Prep: Do you have a contrast dye allergy? Please contact your ordering physician for Contrast Dye Prep Medications. Recovery expectations: You will be in the recovery room post procedure for a minimum of 1 hour(s). Special concerns: Can you lay on your stomach? Do you have any medication pumps or monitoring devices on your body? Do you have any questions, concerns? If you have any questions please call [phone], Neuro Interventional Radiology Kavya Remy RN documented in this encounterPromedica Flower Hospital02-20-2023 Instructions* Patient Instructions* Joana Rodriguez APRN.SENIOR SOUS CHEF - 01/11/2023 11:39 AM EST PATIENT PREOPERATIVE INSTRUCTIONS Your Surgeon has scheduled you for your procedure at this surgery center: [facility] [place] Scheduling Office: [phone] -[address] [place] [address]. Please read below carefully for your personalized instructions. Dietary Restrictions: - No solid food after midnight. - You may have 12 ounces of clear liquids (water, clear juices such as apple juice or gatorade, carbonated beverages, clear tea, black coffee, jello) until 2 hours before scheduled arrival at facility. Medications: Unless instructed differently below, stay on all of your medications until your surgery. Approved medications to take the morning of surgery with a sip of water: Omeprazole, Cymbalta, Lacosamide Blood Thinning Medications: - Stop NSAIDS (Ibuprofen, Advil, Aleve, Motrin, Celebrex, Mobic, etc.) 7 days before surgery, as directed by your surgeon. - Stop Aspirin 7 days before surgery, as directed by your surgeon. - Stop Vitamin E, ALL multi-vitamins, herbals and dietary supplements 7 days before surgery. - You may take Tylenol (Acetaminophen) or any of your pain medications that do not contain aspirin or NSAIDS as needed. Important Reminders: - If you are prescribed inhalers for breathing, continue using them. - Candy, mints, and tobacco products are NOT permitted the morning of surgery. - Hearing aids, dentures and glasses may be worn the morning of surgery. - NO jewelry, body piercings, makeup, hairpins or contacts are to be worn the day of surgery. If you develop symptoms such as a fever, cold, or flu, or have other changes to your health within TWO DAYS of scheduled surgery or the morning of surgery, please contact the surgery center above. Personal Belongings: -Please have photo ID and insurance cards. -If you do not have a copy of advance directives on file with us, please bring a copy with you on the day of surgery. - Leave ALL valuables and money at home or with family members. For Outpatient Procedures: - YOU MUST HAVE A RESPONSIBLE ASSAULT AMPHIBIOUS VEHICLE CREWMAN TAKE YOU HOME. 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 - We recommend that a responsible person stays with you overnight to take care of you. - You cannot stay in a hotel alone after outpatient surgery. You will not be permitted to have yoursurgery, if you do not have someone to take care of you. Arrival Time for Surgery: - To obtain your arrival time for surgery, call your physician's office the day before your surgery. - If your surgery is scheduled for Wednesday, call the Wednesday before. Your surgeon s scheduler maintenance will tell you what time to call the office. - If you have not reached the departmental scheduler maintenance by 5 P.M., call [phone] after 5 P.M. the day before your surgery. Please be aware that emergency situations arise, which may delay or change your surgical time. If this happens, we will notify you as soon as possible and regret any inconvenience. If you already have an Advance Directive, please fax a copy to [phone] or email to for it to be added to your chart. If you do not have an Advance Directive, you can find the appropriate form and more information at [email or web address]. We recommend that youcomplete the Advance Directive form found on the website and bring it with you the day of your surgery. It can be witnessed and scanned into your chart that day. Joana Rodriguez APRN.CNP documented in this encounterPromedica Flower Hospital02-20-2023 History of Present illness Narrative* Stefano Chacon MD - 01/11/2023 7:02 AM EST ??This is a telemedicine visit that was performed using the [employer] virtual platform with the originating site at my work office and the distant site at the patient's home. Verbal consent to participatein a combined audio and video visit was obtained. This visit occurred during the Coronavirus (COVID-19) Public Health Emergency. The patient consented to this virtual visit. I discussed with the patient the nature of our telemedicine visits, that: - I would evaluate the patient and recommend diagnostics and treatments based on my assessment - Our sessions are not being recorded and that personal health information is protected - Our team would provide follow up care in person if/when the patient needs it Lexis Oakes is a 37 year old woman who presents today for follow up of her history of idiopathic intracranial hypertension (IIH). She has had a very complex history of idiopathic intracranial hypertension (IIH) with symptoms thatbegan in 1999 and diagnosis made in 2006 with an opening pressure on lumbar puncture at one point of 40 cm H2O. She underwent CASINO BANKER shunt in 2009 that was infected and removed. She also underwent gastric bypass in 2013. She has been on Topiramate, acetazolamide (diamox), and lasix for the intracranialhypertension. Migraine and pain medications have included Aimovig, nortriptyline, duloxetine, and as needed tramadol. Her history was further complicated by an idiopathic seizure disorder for which she has been on vimpat. At initial consultation 12/22/22 she reported positional headaches, peripheral vision loss, transient visual obscurations, and pulsatile tinnitus. She denied associated diplopia. The patient's weight had been stable. She denied exposure to topical retin-A / accutane and tetracyclines. She had not recently contracted COVID-19. She was undergoing monthly lumbar punctures with it last performed about2 weeks prior initial consultation . She could tell when she required the next as she would experience an increase in all of her symptoms including transient visual obscurations. The patient's ophthalmic history was otherwise notable for a maternal history of glaucoma. The patient's initial neuro-ophthalmic exam 12/22/22 showed blind spot enlargement with superotemporal constriction on the right visual field and otherwise good afferent function. She did have right greater than left borderline ganglion cell loss on OCT in the setting of prior optic disc edema, withonly the appearance of rim fullness by dilated fundus exam and OCT peripapillary retinal nerve fiber layer. Since she had ongoing pulsatile tinnitus and other symptoms suggestive of intracranial hypertension, had required 129 large volume lumbar punctures, did not tolerate the oral medications, I ordered an MRV to evaluation the caliber of the venous sinuses, with potential referral to Dr. Campos thereafter, with whom I discussed her care. ASSESSMENT/PLAN: (G93.2) IIH (idiopathic intracranial hypertension) (primary encounter diagnosis) (H93.A9) Pulsatile tinnitus (H53.453) Other localized visual field defect, bilateral Today (January 11, 2023) she reports experiencing ongoing transient visual obscurations in the last couple of weeks - slowly getting worse. As time goes on she notices progressive worsening. She continues to experience left worse than right-sided pulsatile tinnitus. She can tell that her vision is declining with it. She is pending lumbar puncture on Monday 01/15 arranged by [facility] / anesthesia with that being their absolute earliest date available. MRV of the head with and without contrast was personally reviewed and my interpretation is that it did not reveal a structural etiology underlying the patient's symptoms. That being said, she is still interested in moving forward with a formal angio to determine if there might be a gradient amenable to stenting. We will reach out to her after I here back from my colleagues in [facility]. She is eager to undergo lumbar puncture 01/15 with removal of CSF to within normal limits and we will plan to follow up in clinic thereafter, unless concerns arise in the interim, for which the patient was provided my contact information and encouraged to reach out. ER presentation is otherwise advised for any acute onset neurological deficits. Stefano Chacon MD 7:43 AM 01/11/2023 FOR ADMINISTRATIVE PURPOSES ONLY: My impression of this case is based upon an assessment of the the patient's subacute on chronic problems listed above that pose a threat to visual and neurologic function. 39 minutes were spent on total patient care on the day of service that includes [id number] time and non. The majority of thistime was spent counseling and coordinating care. I communicated with my colleagues in [facility] regarding the management of this patient. The assessment and plan were discussed extensively with the patient who was amenable and voiced understanding. documented in this encounterPromedica Flower Hospital02-17-2023 Miscellaneous Notes* Telephone Encounter - Monique Parisi - 01/08/2023 8:18 AM EST Patient has updated her insurance. * Telephone Encounter - Stefano Chacon MD - 01/06/2023 6:06 PM EST Daniel Rubin if you can please call tomorrow that would be great, thanks! * Telephone Encounter - Luann Felton - 01/06/2023 4:39 PM EST The patient called. She has new insurance that will put her back in our network. Please call for her new insurance information so that her test can be scheduled. documented in this encounterPromedica Flower Hospital02-14-2023 History of Present illness Narrative* Ernestine Merida - 01/05/2023 8:20 AM EST Radiology Service Progress Note DATE OF SERVICE: January 05, 2023 TIME: 9:41 AM PATIENT IDENTITY VERIFICATION COMPLETED USING TWO (2) STANDARD IDENTIFIERS: Name and Date of confirmed by patient verbally. FALL SCREENING: Has the patient had 2 falls in the last year or 1 fall with injury or currently using an Ambulatory Assistive Device (Walker, Cane, Wheelchair, Crutches, etc.)? No PATIENT GENDER DATA: Female. status: : No status: NO. PATIENT RELEVANT IMPLANT DATA REVIEWED: Yes ALLERGIES: Reviewed and unchanged CONTRAST ALLERGY: NO. EXAM: MRI - CONTRAST TYPE: GROUP II PERIPHERAL IV DATA: Ambulatory: A peripheral IV was started in the Right antecubital site with a Angio cath: 22 gauge. RADIOLOGY DEPARTMENT: MR; Exam(s) Completed: Head: Sagittal Sinus MRV SIGNATURE: Ernestine Merida PATIENT NAME: Lexis Oakes DATE: January 05, 2023 TIME: 9:41 AM documented in this encounterPromedica Flower Hospital02-13-2023 Miscellaneous Notes* Telephone Encounter - Luann Felton - 01/04/2023 4:38 PM EST ANDREA Pardo, [facility] called. They do not do spinal taps. Can we schedule the patient at the clinic for a spinal tap? Call the patient to schedule. If you have questions, you can call ANDREA Pardo back [phone] documented in this encounterPromedica Flower Hospital01-31-2023 History of Present illness Narrative* Stefano Chacon MD - 12/22/2022 8:56 AM EST Lexis Oakes is a 37 year old woman who presents today for her history of idiopathic intracranial hypertension (IIH). The patient was referred by Dr. Ginger Haq. As per patient and chart review, she has had a very complex history of idiopathic intracranial hypertension (IIH) with symptoms that began in 1999 and diagnosis made in 2006 with an opening pressure on lumbar puncture at one point of 40 cm H2O. She underwent CASINO BANKER shunt in 2009 that was infected and removed. She also underwent gastric bypass in 2013. She had been on Topiramate, acetazolamide (diamox), lasix for the intracranial hypertension. Migraine and pain medications have included Aimovig, nortriptyline, duloxetine, and as needed tramadol. Her history has been further complicated by an idiopathic seizure disorder for which she is on vimpat. Currently she reports positional headaches, peripheral vision loss, transient visual obscurations, and pulsatile tinnitus. She denies diplopia. The patient's weight has been stable. The patient denies exposure to topical retin-A / accutane and tetracyclines. The patient has not recently had COVID-19. She is undergoing monthly lumbar punctures with it last performed about 2 weeks prior. She can tellwhen she requires the next as she experiences an increase in all of her symptoms including transient visual obscurations. The patient's ophthalmic history is notable for a maternal history of glaucoma. Thorough review of the patient's medical, family, surgical and social history was performed along with medications, allergies, labs and imaging (if applicable). ASSESSMENT/PLAN: (G93.2) IIH (idiopathic intracranial hypertension) (primary encounter diagnosis) (H53.453) Other localized visual field defect, bilateral (H93.A9) Pulsatile tinnitus The patient's neuro-ophthalmic exam today showed blind spot enlargement with superotemporal constriction on the right visual field and otherwise good afferent function. She did have right greater than left borderline ganglion cell loss on OCT in the setting of prior optic disc edema, now with only the appearance of rim fullness by dilated fundus exam and OCT peripapillary retinal nerve fiber layer. Since she has ongoing pulsatile tinnitus and other symptoms of intracranial hypertension, has required 129 large volume lumbar punctures, does not tolerate the oral medications, I will order an MRV to evaluation the caliber of the venous sinuses, with potential referral to Dr. Campos thereafter, with whom I have discussed her care. I will plan to see the patient back via virtual visit following MRV, unless concerns arise in the interim, for which the patient was provided my contact information and encouraged to reach out. ER presentation is otherwise advised for any acute onset neurological deficits. Stefano Chacon MD 3:04 PM 12/22/2022 FOR ADMINISTRATIVE PURPOSES ONLY: My impression of this case is based upon an assessment of the the patient's subacute on chronic problems listed above that pose a threat to visual and neurologic function. 70 minutes were spent on total patient care on the day of service that includes both [id number] and gck-[id number]-bz-face time. This time was separate from any of my time spent completing and interpreting the ancillary testing (such as OCT, fundus photos, visual mauricio) and sensorimotor exam, if applicable. This time was broken down into: 5 minutes reviewing the patient record before the visit, 20 minutes performing a medically appropriate neuro- ophthalmic history and exam (excluding time spent on the ancillary testing and sensorimotor exam, if applicable), 10 communicating results to the patient/family, 10 minutes counseling / educating the patient, 10 minutes documenting clinical information into the electronic health record of the patient, 5 minutes ordering tests/medications/procedures, and 10 minutes coordinating care for the patient. I communicated with Dr. Haq regarding the management of this patient. The assessment and plan were discussed extensively with the patient who was amenable and voiced understanding. documented in this encounterPromedica Flower Hospital01-24-2023 Miscellaneous Notes* Telephone Encounter - Monique Parisi - 12/15/2022 2:10 PM EST Received records via the patient for her upcoming appointment with Dr. Chacon on 12/22/2022. Records placed in doctor's office for review. Copy sent to scanning. 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 Written informed consent obtained. Accompanying paperwork was verified for accuracy. Directed history and physical exam performed prior to the procedure. Medication reconciliation performed by nursing personnel. Procedure was performed using a cap, sterile gown, sterile gloves, a large sterile sheet, hand hygiene and Betadine for cutaneous antisepsis. The patient was positioned left lateral decubitus on the table and prepped and draped in usual sterile fashion. A critical pause was performed with assisting personnel just prior to the procedure with the patient's identity confirmed using 2 identifiers, confirming site and side. Prior to sterile prep, a puncture site was selected and marked under fluoroscopy. 2% lidocaine was administered at the puncture site for local anesthesia. A needle was advanced into the thecal sac under fluoroscopic guidance. A documentation image was stored. Position was confirmed with flow of CSF from the needle. After the adequate volume was removed, the needle was removed. A Band-Aid was placed at the puncture site. CSF fluid was discarded as there were no labs ordered on the CSF. Therapeutic tap. The patient tolerated the procedure well without immediate complication. Patient condition was stable. Patient placed in supine and flat position for 1 hour post procedure. IMPRESSION: Successful fluoroscopic guided therapeutic lumbar puncture. Procedure was performed by Nicci Rubio PA-C. I concur with the contents of this report. Interpreted by: Ky Collier MD Preliminary Report By: Nicci Rubio PA-C Electronically signed By Ky Collier MD Dictated Date: 10/27/2022 5:30:17 PM Prelim Date: 10/27/2022 5:33:06 PM Sign Date: 10/28/2022 8:56:05 AM Ordering Provider: [facility] ([place])10-27-2022 Evaluation + Plan noteExtracted from: Title:IR pre procedure H&P Author:ELISSA BLACKMAN PA-C Date:10/27/22 Interventional Radiology Focused Preprocedure History/Physical Reason for Visit BENIGN INTRACRANIAL HYPERTENSION History of Presenting Illness/Planned IR Procedure Benign Intracranial Hypertension Allergies (3) ActiveReaction gabapentinTremors NSAIDsUlcers/Lesions penicillinRash Home Medications (12) Active Abilify 5 mg oral tablet 5 mg = 1 tab(s), Oral, qHS Citracal Maximum + D 315 mg-6.25 mcg (250 intl units) oral tablet 1 tab(s), Oral, BID Cymbalta 60 mg oral delayed release capsule 60 mg = 1 cap(s), Oral, BID lacosamide 200 mg oral tablet 200 mg = 1 tab(s), Oral, BID LORazepam 0.5 mg oral tablet 0.5 mg = 1 tab(s), Oral, qHS medical marijuana Multivitamin 1 tab(s), Oral, qAM nortriptyline 75 mg oral capsule 75 mg = 1 cap(s), Oral, qHS Nurtec ODT 75 mg oral tablet, disintegrating 75 mg = 1 tab(s), Oral, Every other day omeprazole 20 mg oral delayed release capsule 20 mg = 1 cap(s), Oral, qAM traMADol 50 mg oral tablet 50 mg = 1 tab(s), PRN, Oral, BID Vitamin D3 25 mcg (1000 intl units) oral capsule 25 mcg = 1 cap(s), Oral, Daily Problem List/Past Medical History History of gastric bypass Acid reflux Anxiety BMI 45.0-49.9, adult Back pain Benign intracranial hypertension Contact lenses Depression Difficult intravenous access Epilepsy Glasses Headache History of PCOS Lethargy Nerve damage Surgical History Gastric bypass: 2013 Lumbar puncture Esophagogastroduodenoscopy Abdominal hysterectomy Shoulder Cholecystectomy History of tonsillectomy Extraction of wisdom tooth Shunt Appendectomy Family History Mother (): COPD (Chronic Obstructive Pulmonary Disease) Assessment Test scale Father: Diabetes mellitus type 2; Skin cancer Brother: HTN - Hypertension Social History Alcohol Details: Use: Past. Frequency: 1-2 times per month. Home/Environment Details: Domestic Concerns: None. Living situation: Home/Independent. Safe place to go: Yes. Lives In: Multilevel home, 1st floor bedroom, 1st floor bathroom. Current Home Treatments None. Professional Skilled Services or Special Community Resources None. Nutrition/Health Details: Appetite Good. Eating Difficulties None. Substance Abuse Details: Use: Current. Type: Marijuana.; Comment(s): medical marijuana Tobacco Details: Nicotine Use: Vaping Product in Last 90 Days. Type: medical marijuana. Started at age: 32 Years. Physical Exam Vitals: Iicjsekhylr68.1 (06:50) Systolic Blood Ieovzvxa387 (06:50) Diastolic Blood Fuyofsbi02 (06:50) Pulse84 (06:50) QeQ0001 (06:50) Respiratory Rate16 (06:50) General: Alert, cooperative. Lungs CTAB Heart RRR The remainder of the physical exam is noncontributory. Labs Anticoagulation Labs No qualifying data available. No qualifying data available. Assessment/Treatment Plan Image guided Lumbar Puncture Post Procedure Discharge Plan Patient to be discharged home. _ Future Appointments Appointment Date:10/28/2022 12:30:00 PM Scheduled Provider: Location:IR Appointment Type:IR Lumbar Puncture Future Scheduled Tests Radiology* IR Lumbar Puncture 10/28/22 [facility] 12-06-2022 Hospital Discharge instructions Patient Education 10/27/2022 09:50:35 Radiology- Lumbar Puncture 03/06/2020(CUSTOM) NEHALEM Lumbar Puncture Discharge Instructions Interventional Radiology [facility] Services [address] [place] [address] Your physician has ordered a lumbar puncture for you today. A small amount of cerebrospinal fluid (CSF) that surrounds the spinal canal and brain was drained through a small needle puncture in your lower back. This fluid will be sent to the lab for testing. This procedure will usually cause some soreness around the puncture site for a day or two. Some people may experience a headache after a lumbar puncture. Please follow the instructions below to reduce the chance of experiencing complications. Diet: Resume your normal diet as tolerated. Drink at least 8 to 10 glasses of water over the next 24 hours. Activity: You will be asked to lie flat for 2 hours at the hospital following your procedure. Getting up too soon may worsen your headache. Therefore, it is important that you LIE FLAT (your head level with the rest of your body on your side, back or stomach) for the next 6 hours after you return home. Then, relax with minimal activity for the rest of the day. Avoid strenuous activity for 24 hours following the procedure. Do not lift anything more than 10 pounds for 24 hours. You may bathe/shower as usual after 24 hours. Dressing: Change the band aid as needed. It may be removed 24 hours after your procedure. Pain Control: The puncture site may be sore for 1 to 2 days following the procedure. About 1 in 5 patients develop a headache. If this occurs; follow the directions below: Bfad-toc-uaociye pain medication should be used for pain or discomfort. Please check with the physician who ordered this procedure for you for their specific recommendations. Lay flat on your back and only get up to use the restroom for the remainder of the day. ?Drink extra fluids, including caffeinated beverages, unless otherwise directed by your ordering physician. If you were sedated for this procedure: Avoid alcoholic beverages for 24 hours after your procedure. Do not drive or operate heavy machinery for 24 hours after your procedure. Do not make any legal decisions for 24 hours after your procedure. Medication: Please resume on . When to seek medial care: Foul odor, pus drainage, redness, or swelling at puncture site. Excessive bleeding from puncture site. Fever greater than 101 degrees and chills. Severe postural headache: A headache that gets worse when standing and is relieved or improves when laying down, persists regardless of bed rest and increased fluids, and last more than 24 hours following the procedure. If you experience any of these issues during the first 24 hours, please follow the instruction below: 8:00 am- 5:00 pm call [phone] After 5:00 pm call [phone] After 24 hours, contact the physician who ordered this procedure for you. Obtaining test results: Please make an appointment with your doctor to obtain your test results. They are usually availablewithin 4 to 7 business days. Do not assume everything is normal if you have not heard from your doctor or medical facility. It is important for you to follow up on all of your test results. Special Instructions: Follow Up Care 10/23/2022 16:03:19 With:NICCI RUBIO PA-C, [facility] Address: [address] [place] [address] [facility] [place] [address]- When: Unknown Comments:Follow-up as scheduled [facility] 12-06-2022 Summary of episode note Discharge Instructions Thank you for allowing [facility] to assist you with your healthcare needs. The following is importantdischarge information regarding your hospital visit. Your Care Team PHYSICIAN, NONE What to do next Scheduled Follow-Up Appointments Appointment Type When Where Contact InformationIR Lumbar Puncture 10/28/2022 12:30 PM EST IR Follow Up Appointments Follow Up with NICCI RUBIO PA-C, [facility] When Why: Follow-up as scheduled Where: [address] [place] [address] [facility] [place] [address]- Someone Will Contact You Regarding These Home Health Referrals No home referrals have been ordered for you. No one will call you. Allergies NSAIDs (Ulcers/Lesions) gabapentin (Tremors) penicillin (Rash) Medications Please ask your primary doctor or pharmacist before taking any other medication not listed, including over the counter drugs, herbal medications, vitamins and or supplements as they may interact withyour home medications. What How Much When Instructions Last Dose Unchanged ARIPiprazole (Abilify 5 mg oral tablet) 1 tab(s) by mouth Daily at bedtime Unchanged calcium-vitamin D (Citracal Maximum + D 315 mg-6.25 mcg (250 intl units) oral tablet) 1 tab(s) by mouth Two (2) times a day Unchanged cholecalciferol (Vitamin D3 25 mcg (1000 intl units) oral capsule) 1 cap by mouth Every day Unchanged DULoxetine (Cymbalta 60 mg oral delayed release capsule) 1 cap by mouth Two (2) times a day Unchanged lacosamide (lacosamide 200 mg oral tablet) 1 tab(s) by mouth Two (2) times a day Unchanged LORazepam (LORazepam 0.5 mg oral tablet) 1 tab(s) by mouth Daily at bedtime Unchanged Misc Medication (medical marijuana) Unchanged multivitamin (Multivitamin) 1 tab(s) by mouth Once a day (in the morning) Unchanged nortriptyline (nortriptyline 75 mg oral capsule) 1 cap by mouth Daily at bedtime Unchanged omeprazole (omeprazole 20 mg oral delayed release capsule) 1 cap by mouth Once a day (in the morning) Unchanged rimegepant (Nurtec ODT 75 mg oral tablet, disintegrating) 1 tab(s) by mouth Every other day Unchanged traMADol (traMADol 50 mg oral tablet) 1 tab(s) by mouth Two (2) times a day as needed for for pain Please take this list to your next doctor s visit. Bring all medications you take, including over the counter medications, herbals and other supplements with you to your doctor s visit. Patients and families are reminded to discard old lists and to update any records with all medication providers or retail pharmacies. Education Materials NEHALEM Lumbar Puncture Discharge Instructions Interventional Radiology [facility] [address] [place] [address] Your physician has ordered a lumbar puncture for you today. A small amount of cerebrospinal fluid (CSF) that surrounds the spinal canal and brain was drained through a small needle puncture in your lower back. This fluid will be sent to the lab for testing. This procedure will usually cause some soreness around the puncture site for a day or two. Some people may experience a headache after a lumbar puncture. Please follow the instructions below to reduce the chance of experiencing complications. Diet: Resume your normal diet as tolerated. Drink at least 8 to 10 glasses of water over the next 24 hours. Activity: You will be asked to lie flat for 2 hours at the hospital following your procedure. Getting up too soon may worsen your headache. Therefore, it is important that you LIE FLAT (your head level with the rest of your body on your side, back or stomach) for the next 6 hours after you return home. Then, relax with minimal activity for the rest of the day. Avoid strenuous activity for 24 hours following the procedure. Do not lift anything more than 10 pounds for 24 hours. You may bathe/shower as usual after 24 hours. Dressing: Change the band aid as needed. It may be removed 24 hours after your procedure. Pain Control: The puncture site may be sore for 1 to 2 days following the procedure. About 1 in 5 patients develop a headache. If this occurs; follow the directions below: Fcmh-zkp-mqboqjh pain medication should be used for pain or discomfort. Please check with the physician who ordered this procedure for you for their specific recommendations. Lay flat on your back and only get up to use the restroom for the remainder of the day. ? Drink extra fluids, including caffeinated beverages, unless otherwise directed by your ordering physician. If you were sedated for this procedure: Avoid alcoholic beverages for 24 hours after your procedure. Do not drive or operate heavy machinery for 24 hours after your procedure. Do not make any legal decisions for 24 hours after your procedure. Medication: Please resume on . When to seek medial care: Foul odor, pus drainage, redness, or swelling at puncture site. Excessive bleeding from puncture site. Fever greater than 101 degrees and chills. Severe postural headache: A headache that gets worse when standing and is relieved or improves when laying down, persists regardless of bed rest and increased fluids, and last more than 24 hours following the procedure. If you experience any of these issues during the first 24 hours, please follow the instruction below: 8:00 am- 5:00 pm call [phone] After 5:00 pm call [phone] After 24 hours, contact the physician who ordered this procedure for you. Obtaining test results: Please make an appointment with your doctor to obtain your test results. They are usually availablewithin 4 to 7 business days. Do not assume everything is normal if you have not heard from your doctor or medical facility. It is important for you to follow up on all of your test results. Special Instructions: Additional Information VACCINATE! IT SAVES LIVES! Members of the community who have not yet received the COVID-19 vaccine and would like to receive it can visit one of [facility] vaccine clinics. There are many vaccine clinic locations within the [facility]. For locations and available times, please visit [email or web address] It is important to note that some COVID mobile vaccine clinics are held outdoors and may be canceled in rainy or stormy conditions. To learn more about pediatric vaccinations (ages 5-11), we invite you to visit the [facility] webpage. [email or web address] learn more about the COVID-19 vaccine, we invite you to visit the [facility] website for a list of frequently asked questions. [email or web address] [facility] Patient Portal Access Instructions: Stay connected with your healthcare team and access your personal medical information anytime with the [facility].If you would like a full copy of your medical records, please contact the [facility] Medical Records Department, Wednesday through Wednesday between 8a.m. and 4:30p.m. Please follow the directions below to access the portal: 1.Access the email account you provided upon registration to the hospital.2.Look for an invitation email from [facility].3.Open the email and access the invitation link: Accept Invitation to [facility]4.Fill in the required mauricio to create your account. Sign into [email or web address] with your username and password that you created in the above steps to stay up to date. You can then view a summary of results, a summary of your visits, and the ability to download your summaries to your computer or send the information securely to a physician. Remember that your healthcare information is confidential, so carefully consider who you will allow to register on the [facility] Patient Portal for access to your information. You can also access the [facility] Patient Portal on the [place]. Simply click on Health Records under [employer] and then click on the [facility] logo. HOW TO SAFELY DISPOSE OF PRESCRIPTION MEDICATIONS Please use one of the following methods to safely dispose of your unused medications. 1.Use a drug disposal kit: the drug disposal pouch allows you to safely discard your old and unuseddrugs. Ask your nurse to give you one when you are discharged.2.Visit a local take-back location: Many local pharmacies and police departments have programs that collect old and unwanted prescriptiondrugs. Call your local pharmacy or go to http://[place].ShareMagnet/5C2Cn7w to find one close to you.3.Make use of household items: Use cat litter or old coffee grounds to dispose medications if other options arenot available. Mix your drugs with these household products, seal them in an airtight container andthrow it into the garbage. Call [facility]: [phone] to be sure your drugs can be disposed of in this way. Some medicines may require a different approach.4.Never flush your medications down the toilet. IF YOU HAVE BEEN PRESCRIBED AN OPIOID FOR PAIN If you have been prescribed an opioid (such as hydrocodone, oxycodone or morphine), it is critical to understand the possible side effects and risks of opioid pain medications. Even when taken as directed, opioids can have several side effects including: Tolerance, meaning you might need to take more of a medication for the same pain relief. Nausea, vomiting and/or constipation. Sleepiness, dizziness, dry mouth, confusion, depression or itching. Physical dependence, meaning you have withdrawal symptoms when a medication is stopped, can develop within a few days. KNOW YOUR RESPONSIBILITIES It is important to know exactly how much and how often to take the opioid pain medications you are prescribed. Never take opioids in higher amounts or more often than prescribed. Do not combine opioids with alcohol or other drugs that cause drowsiness, such as benzodiazepines, also known as benzos, including diazepam and alprazolam, muscle relaxants or sleep aids. Never sell or share prescription opioids. This is illegal. Store opioids in a secure place and out of reach of others (including children, family, friends and visitors). The last page of this document has been signed and retained as a CHART COPY. Signatures Patient Education Materials Radiology- Lumbar Puncture 03/06/2020(CUSTOM) Medication Leaflets My discharge plan and instructions have been reviewed and explained to me and I,LEXIS OAKES understand my current condition and have read and understand these discharge instructions. I have received a written copy of the plan/instructions. If I have questions, I am aware that I should contact my doctor. 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 Patient location: PACU. Assessment Postanesthesia assessment Vitals: Vital signs from flowsheet : Vital Signs 10/27/2022 9:09 EST Temperature Temporal Artery 36.6 DegC Apical Heart Rate 71 bpm Respiratory Rate 18 br/min Systolic Blood Pressure Non-Invasive 130 mmHg Diastolic Blood Pressure Non-Invasive 69 mmHg Mean Arterial Pressure (NBP) 84 mmHg 10/27/2022 6:50 EST Temperature Temporal Artery 36.1 DegC Apical Heart Rate 84 bpm Respiratory Rate 16 br/min Systolic Blood Pressure Non-Invasive 133 mmHg Diastolic Blood Pressure Non-Invasive 89 mmHg . Mental status: at preoperative baseline. Respiratory function: respirations are non-labored, stable. Respiratory support: none. CV function: stable. Cardiovascular support: none. Pain: satisfactory. Nausea status: satisfactory. Postoperative hydration status: within normal limits. Notes: Patient is sufficiently recovered from anesthesia to participate in the evaluation. No follow-up care needed. No complications post-anesthesia.. Digitally Signed by RIAT ZELAYA MD on 10/27/2022 09:24 AM [id number] Procedure note IR Brief Post Procedure Note Preprocedure Dx: benign intracranial hypertension Post Procedure Dx: Same Procedure: LP Anesthesia: Local EBL: Minimal Complications: None Status: Unchanged Findings: 1. Successful LP at the L2-3 level. 2. Collected 25 cc clear to blood tinged CSF, likely from traumatic tap. 3. Opening pressure - 22 cm H2O 4. Closing pressure - 4 cm H2O Plan: 1. CSF discarded as this was a therapeutic tap. 2. Patient to lie flat x 1 hour and recover in PACU, then D/C to home. Full report to follow. Orders in Cerner. Nicci Rubio PA-C Interventional Radiology Pager: [phone] IR dept: [id number] Available on Cortext Digitally Signed by NICCI RUBIO PA-C on 10/27/2022 09:05 AM [id number] Note IR Procedure Record Summary Primary Physician: NICCI RUBIO PA-C Finalized Date/Time: 10/27/22 09:04:58 Pt. Name: LEXIS OAKES/Sex: 1985 Female Med Rec #: [id number] Physician: Financial #: [id number] Pt. Type: S Room/Bed: [facility]/A Admit/Disch: 10/27/22 05:51:16 - Institution: Allergies identified in patient's electronic medical record at time of printing on 10/27/22 Entry 1 Entry 2 Entry 3 Substance NSAIDs gabapentin penicillin Reaction Type Allergy Allergy Allergy Last Modified By: Luis Alfredo Jolly RN Luis Alfredo Jolly RN Luis Alfredo Jolly RN 09/17/22 11:50:48 09/17/22 11:50:20 09/17/22 11:51:03 Case Attendance- IR Entry 1 Entry 2 Entry 3 Case Attendee NICCI RUBIO PA-C Jacob, RN Mary Lou Perez Scalper Operator Role Performed Primary Surgeon Procedure Nurse Coal Crusher Operator Details Time In 10/27/22 08:30:00 10/27/22 08:10:00 10/27/22 08:10:00 Time Out 10/27/22 08:57:00 10/27/22 09:05:00 10/27/22 09:05:00 Procedure/Preference IR Lumbar Puncture SN IR Lumbar Puncture SN IR Lumbar Puncture SN Card Last Modified By: Mary Lou Barry Megan R Rad Fierstos, Megan R Scalper Operator 10/27/22 08:58:47 Tech 10/27/22 08:58:36 Tech 10/27/22 08:58:36 Entry 4 Case Attendee Valerie Caputo Scalper Operator Role Performed Coal Crusher Operator Details Time In 10/27/22 08:10:00 Time Out 10/27/22 09:05:00 Procedure/Preference IR Lumbar Puncture SN Card Last Modified By: Mary Lou Barry Scalper Operator 10/27/22 08:58:36 Radiology Procedures- IR Entry 1 Procedure/Preference IR Lumbar Puncture SN Actual Procedure IR LUMBAR PUNCTURE SN Card Primary Procedure Yes Primary Surgeon NICCI RUBIO PA-C Anesthesia/Sedation Local, MAC Type Additional Procedure Times Start 10/27/22 08:30:00 Stop 10/27/22 08:57:00 Specialty Service SN Radiology Procedure EBL 0 mL Last Modified By: Mary Lou Barry Scalper Operator 10/27/22 08:58:52 Radiology Procedure Details - IR Entry 1 Radiology Sedation Case Times Sedation Total Time 0 Radiology - Fluid/Drainage Radiology Contrast Contrast Used? No Radiology Flouroscopy Fluoroscopy Used? Yes Fluoro Dose (mGy) 103.71 Fluoro Time 0.4minutes Radiology Local Local Used? Yes Local Type: lidocaine 1% Local Dose 10ml Radiology Procedure Site Site/Location L2-3 Dressing Type Bandaids Technologist Notes L2-3, 20ga 5in spinal needle, 22 opening pressure, 4 closing pressure, 25mL blood tinged CSF removed at 08:53am. Last Modified By: Mary Lou Barry [employer] 10/27/22 08:59:48 Cultures and Specimens- IR Entry 1 Kind Specimen Type CSF Last Modified By: Mary Lou Barry Scalper Operator 10/27/22 08:41:18 General Case Data - IR Entry 1 Case Information Room AH IR 17 Case Level IR Level 1 Wound Class None Specialty SN Radiology Procedure ASA Class None Diagnosis Preop Diagnosis benign intracranial Postop Same As Preop Yes hypertension Postop Diagnosis benign intracranial hypertension Last Modified By: HARSHAL Parra 10/27/22 08:23:51 Procedure Case Times- IR Entry 1 Patient In Procedure Patient In OR 10/27/22 08:10:00 Patient Out of OR 10/27/22 09:05:00 Procedure Start/Stop Procedure Start Time 10/27/22 08:30:00 Procedure Stop Time 10/27/22 08:57:00 Last Modified By: Mary Lou Barry Scalper Operator 10/27/22 08:58:31 Immediate Post Procedure Note - IR Entry 1 Immediate Post Yes Findings LP Procedure Note displayed for Physician to review Closure Technique Closure Technique Other than Primary Last Modified By: Mary Lou Barry Scalper Operator 10/27/22 08:58:24 Immediate Post Procedure Note - IR Signed By: NICCI RUBIO PA-C 10/27/22 08:58 Allergy Information- IR Entry 1 Allergies Reviewed? Yes Allergies Reviewed Medical Record With Last Modified By: HARSHAL Parra 10/27/22 08:19:56 Radiology Protocols/Time Out- IR Entry 1 Preprocedure Clinician Verifies Correct patient ID When Clinically Confirmation of correct using name & date Indicated side(s) and site(s), or MRN, Accurate Correct diagnostic and procedure, complete radiology tests Informed Consent, H & P available, Required update immediately blood products, prior to procedure, if implants, devices applicable and/or special equipment available OR/Procedure Room/Bedside Time 10/27/22 08:30:00 Clinician Verifies Correct patient identity including EMR & records using name and date or medical record number, Accurate procedure consent form, Correct patient position, Necessary equipment is available, Anticipated non-routine events with surgical team (case duration, estimated blood loss, patient specific concerns). When Applicable Confirmation correct Team Members NICCI RUBIO PA-C, side and site marked, Present for Time Out HARSHAL Parra, Relevant images and Mary Lou Barry Rad results are properly Tech, Harshal, labeled and Valerie Toussaint Scalper Operator appropriately displayed, Alcohol based prep dry Instrument Sterility Procedure IR Lumbar Puncture SN Last Modified By: Mary Lou Barry Scalper Operator 10/27/22 08:41:02 Skin Prep- IR Entry 1 Procedure IR Lumbar Puncture SN Skin Prep Prep Area Back Side Lower By Valerie Caputo Prep Agents Betadine Scrub Scalper Operator Hair Removal Method N/A Last Modified By: HARSHAL Parra 10/27/22 08:22:26 Patient Positioning- IR Entry 1 Procedure IR Lumbar Puncture SN Body Position OP Left Lateral Feet Uncrossed? Yes Pressure Points Yes Checked Last Modified By: HARHSAL Parra 10/27/22 08:23:02 Radiology Procedure Plan - IR Entry 1 Radiology - Nursing Care Plan Outcome Statement The patient Outcome Statement The patient receives demonstrates knowledge Cont. appropriate of the expected medication(s), safely responses to the administered during the operative/invasive perioperative/invasive procedure., The period., The patient is patient's value system, free from signs and lifestyle, ethnicity, symptoms of injury and culture are caused by extraneous considered, respected, objects (equipment, and incorporated in the instrumentation, perioperative plan of sponges, or sharps)., care., The patient is The patient is free free from signs and from signs and symptoms symptoms of infection., of electrical injury., The patient is free The patient is at or from signs and symptoms returning to of injury related to normothermia at the positioning. conclusion of the immediate postoperative/invasive period. Radiology - Action Plan Outcomes Met? Yes Transmissions Systems Operator HARSHAL Parra Completing Procedure Plan Last Modified By: HARSHAL Parra 10/27/22 08:23:25 Case Comments Finalized By: Mary Lou Barry Scalper Operator Document Signatures Signed By: Mary Lou Barry 10/27/22 09:04 [id number] Note Interventional Radiology Focused Preprocedure History/Physical Reason for Visit BENIGN INTRACRANIAL HYPERTENSION History of Presenting Illness/Planned IR Procedure Benign Intracranial Hypertension Allergies (3) ActiveReaction gabapentinTremors NSAIDsUlcers/Lesions penicillinRash Home Medications (12) Active Abilify 5 mg oral tablet 5 mg = 1 tab(s), Oral, qHS Citracal Maximum + D 315 mg-6.25 mcg (250 intl units) oral tablet 1 tab(s), Oral, BID Cymbalta 60 mg oral delayed release capsule 60 mg = 1 cap(s), Oral, BID lacosamide 200 mg oral tablet 200 mg = 1 tab(s), Oral, BID LORazepam 0.5 mg oral tablet 0.5 mg = 1 tab(s), Oral, qHS medical marijuana Multivitamin 1 tab(s), Oral, qAM nortriptyline 75 mg oral capsule 75 mg = 1 cap(s), Oral, qHS Nurtec ODT 75 mg oral tablet, disintegrating 75 mg = 1 tab(s), Oral, Every other day omeprazole 20 mg oral delayed release capsule 20 mg = 1 cap(s), Oral, qAM traMADol 50 mg oral tablet 50 mg = 1 tab(s), PRN, Oral, BID Vitamin D3 25 mcg (1000 intl units) oral capsule 25 mcg = 1 cap(s), Oral, Daily Problem List/Past Medical History History of gastric bypass Acid reflux Anxiety BMI 45.0-49.9, adult Back pain Benign intracranial hypertension Contact lenses Depression Difficult intravenous access Epilepsy Glasses Headache History of PCOS Lethargy Nerve damage Surgical History Gastric bypass: 2013 Lumbar puncture Esophagogastroduodenoscopy Abdominal hysterectomy Shoulder Cholecystectomy History of tonsillectomy Extraction of wisdom tooth Shunt Appendectomy Family History Mother (): COPD (Chronic Obstructive Pulmonary Disease) Assessment Test scale Father: Diabetes mellitus type 2; Skin cancer Brother: HTN - Hypertension Social History Alcohol Details: Use: Past. Frequency: 1-2 times per month. Home/Environment Details: Domestic Concerns: None. Living situation: Home/Independent. Safe place to go: Yes. Lives In: Multilevel home, 1st floor bedroom, 1st floor bathroom. Current Home Treatments None. Professional Skilled Services or Special Community Resources None. Nutrition/Health Details: Appetite Good. Eating Difficulties None. Substance Abuse Details: Use: Current. Type: Marijuana.; Comment(s): medical marijuana Tobacco Details: Nicotine Use: Vaping Product in Last 90 Days. Type: medical marijuana. Started at age: 32 Years. Physical Exam Vitals: Rxrfdhumfhg72.1 (06:50) Systolic Blood Yfwpahsw387 (06:50) Diastolic Blood Newklxmj03 (06:50) Pulse84 (06:50) GcM3187 (06:50) Respiratory Rate16 (06:50) General: Alert, cooperative. Lungs CTAB Heart RRR The remainder of the physical exam is noncontributory. Labs Anticoagulation Labs No qualifying data available. No qualifying data available. Assessment/Treatment Plan Image guided Lumbar Puncture Post Procedure Discharge Plan Patient to be discharged home. _ Digitally Signed by NOE BLACKMAN PA-C on 10/27/2022 07:31 AM Digitally Signed by KY COLLIER MD on 10/27/2022 08:54 AM [id number] Anesthesiology Consult note Patient: LEXIS OAKES Age: 37 years Sex: Female : 1985 Associated Diagnoses: None Author: RITA ZELAYA MD Preoperative Information Time of last food or liquid consumption: 10/26/2022 18:00:00 Anesthesia history Patient's history: negative. Family's history: negative. Health Status Allergies: Allergic Reactions (All) Severity Not Documented Gabapentin- Tremors. NSAIDs- Ulcers/lesions. Penicillin- Rash. Canceled/Inactive Reactions (All) NKA No Known Medication Allergies, Allergies (3) ActiveReaction gabapentinTremors NSAIDsUlcers/Lesions penicillinRash Current medications: (Selected) Documented Medications Documented Abilify 5 mg oral tablet: 5 mg, 1 tab(s), Oral, qHS, 30 tab(s), 0 Refill(s) Citracal Maximum + D 315 mg-6.25 mcg (250 intl units) oral tablet: 1 tab(s), Oral, BID, 120 tab(s),0 Refill(s) Cymbalta 60 mg oral delayed release capsule: 60 mg, 1 cap(s), Oral, BID, 30 cap(s), 0 Refill(s) LORazepam 0.5 mg oral tablet: 0.5 mg, 1 tab(s), Oral, qHS, 0 Refill(s) Multivitamin: 1 tab(s), Oral, qAM, 0 Refill(s) Nurtec ODT 75 mg oral tablet, disintegratin mg, 1 tab(s), Oral, Every other day, 8 tab(s), 0 Refill(s) Vitamin D3 25 mcg (1000 intl units) oral capsule: 25 mcg, 1 cap(s), Oral, Daily, 0 Refill(s) lacosamide 200 mg oral tablet: 200 mg, 1 tab(s), Oral, BID, 60 tab(s), 0 Refill(s) medical marijuana: 0 Refill(s) nortriptyline 75 mg oral capsule: 75 mg, 1 cap(s), Oral, qHS, 30 cap(s), 0 Refill(s) omeprazole 20 mg oral delayed release capsule: 20 mg, 1 cap(s), Oral, qAM, 180 cap(s), 0 Refill(s) traMADol 50 mg oral tablet: 50 mg, 1 tab(s), Oral, BID, PRN: for pain, 12 tab(s), 0 Refill(s), No qualifying data available Problem list: Medical Benign intracranial hypertension / SNOMED CT 055767809 / Confirmed Acid reflux / SNOMED CT 784943410 / Confirmed Back pain / SNOMED CT 8610811785 / Confirmed Anxiety / SNOMED CT 57634498 / Confirmed Depression / SNOMED CT 396829148 / Confirmed Headache / SNOMED CT 00865982 / Confirmed Epilepsy / SNOMED CT 836162537 / Confirmed, Active Problems (15) Acid reflux Anxiety Back pain Benign intracranial hypertension BMI 45.0-49.9, adult Contact lenses Depression Difficult intravenous access Epilepsy Glasses Headache History of gastric bypass History of PCOS Lethargy Nerve damage Histories Past Medical History: Active Epilepsy (212803596) Comments: 10/26/2022 EST 8:42 HARSHAL Sanchez since on medical marijuana seizures have lessened Family History: Diabetes mellitus type 2 Father HTN - Hypertension Brother Skin cancer Father COPD (Chronic Obstructive Pulmonary Disease) Assessment Test scale Mother () Procedure history: Gastric bypass (1272183729) in 2013 at 28 Years. Abdominal hysterectomy (565211993). Cholecystectomy (63030580). Shoulder (88643967). Comments: 09/17/2022 12:07 Luis Alfredo Perdomo RN right X2 History of tonsillectomy (3234690995). Appendectomy (680920495). Shunt (108893680). Comments: 10/26/2022 8:47 HARSHAL Sanchez put in 2009 and removed 2009, pt rejected and had infection 09/17/2022 12:08 Luis Alfredo Perdomo RN CASINO BANKER shunt Extraction of wisdom tooth (833732531). Lumbar puncture (434970125). Comments: 10/26/2022 8:48 HARSHAL Sanchez Jacob has had 128 since 2017 Esophagogastroduodenoscopy (438301348). Social History Social & Psychosocial Habits Alcohol 10/26/2022 Use: Past Frequency: 1-2 times per month Substance Abuse 09/17/2022 Use: Current Type: Marijuana Comment: medical marijuana - 09/17/2022 12:10 - Luis Alfredo Jolly RN Tobacco 09/17/2022 Tobacco Use: Vaping Product in Last 90 Type: medical marijuana Started at age: 32 Years Home/Environment 10/26/2022 Domestic Concerns None Living situation: Home/Independent Safe place to go: Yes Lives In 1st floor bathroom, 1st floor bedroom, Multilevel home Current Home Treatments None Special Services and Community Resources None Nutrition/Health 10/26/2022 Appetite Good Eating Difficulties None . Physical Examination Vital Signs 10/27/2022 6:50 EST Temperature Temporal Artery 36.1 DegC Apical Heart Rate 84 bpm Respiratory Rate 16 br/min Systolic Blood Pressure Non-Invasive 133 mmHg Diastolic Blood Pressure Non-Invasive 89 mmHg Vital Signs(last 24 hrs) Last Charted Resp Rate 16 br/min (OCT 27 06:50) RPM484 mmHg (OCT 27 06:50) DBP89 mmHg (OCT 27 06:50) BMI43.12 (OCT 27 06:50) Measurements from flowsheet : Measurements 10/27/2022 6:50 EST Height 162.6 cm Height in inches 64 inch(es) Admission Weight 114.0 kg Weight Lbs 250.8 lb Weight Method Actual [place] Body Weight 54.74 kg Type of Scale Used Bed scale Body Mass Index 43.12 kg/m2 Admission Body Mass Index 43.12 m2 10/26/2022 8:51 EST Height 162.4 cm Admission Weight 113.6 kg Weight Method Stated [place] Body Weight 54.56 kg Body Mass Index 43.07 kg/m2 Body Mass Index 43.07 kg/m2 Pain assessment: Pain Assessment 10/27/2022 6:50 EST Primary Pain Location Headache Primary Pain Intensity 7 Primary Pain Quality Pressure Primary Pain Nonverbal Response Nods Yes Pain Scale Type 0-10 Pain scale . General: Alert and oriented, No acute distress. Airway: Normal temporomandibular joint mobility, Nares patent, Trachea midline. Mallampati classification: III (soft palate, base of uvula visible). Head: Normocephalic, Atraumatic. Dentition Evaluation: Intact, Own teeth. Respiratory: Lungs are clear to auscultation. Cardiovascular: Normal rate, Regular rhythm. Neurologic: Alert, Oriented. Review / Management Results review: No qualifying data available , Lab results 10/27/2022 7:09 EST SN - Preop - CTm Pt Ready for OR/Proced 10/27/2022 7:09 10/27/2022 7:09 EST SN - Preop - CTm Pt in SDS Room 10/27/2022 6:44 10/27/2022 7:08 EST Hand Left 10/27/2022 22 gauge Peripheral IV Activity: Unsuccessful 10/27/2022 6:50 EST Height 162.6 cm Height in inches 64 inch(es) Admission Weight 114.0 kg Weight Lbs 250.8 lb Weight Method Actual [place] Body Weight 54.74 kg Type of Scale Used Bed scale Body Mass Index 43.12 kg/m2 Admission Body Mass Index 43.12 m2 Temperature Temporal Artery 36.1 DegC Apical Heart Rate 84 bpm Respiratory Rate 16 br/min Systolic Blood Pressure Non-Invasive 133 mmHg Diastolic Blood Pressure Non-Invasive 89 mmHg Primary Pain Location Headache Primary Pain Intensity 7 Primary Pain Quality Pressure Primary Pain Nonverbal Response Nods Yes Pain Scale Type 0-10 Pain scale Heart Rhythm Regular Oxygen Therapy Room air Oxygen Saturation 100 % Abdomen Description Soft Passing Flatus Yes Bowel Sounds All Quadrants Present Urinary Elimination Voiding, no difficulties Skin Temperature Warm Skin Description [place], Dry Skin Integrity Intact Mucous Membrane Color [place] IV Present Present Neurological Symptoms Blurred vision, Dizziness, Headache Level of Consciousness Alert Strength All Extremities Strong Violence Risk Confused No Violence Risk Irritable No Violence Risk Boisterous No Violence Risk Verbal Threats No Violence Risk Physical Threats No Violence Risk Attacking Objects No Violence Risk Predictor Score 0 Violence Risk Intervention None Violence Risk Current Interventions None Affect/Behavior Appropriate, Calm, Cooperative Orientation Oriented x 4 Consent Form Signed No Patient Dressed In Hospital gown, No undergarments Pre-op Preparation Glasses removed CHG Preoperative Wash/Wipe Not done Orientation Assessment Oriented x 4 Memory Recall Ability Current season Individuals Taught Patient, Spouse Learning Readiness Willing to learn Barriers to Learning None evident Teaching Method Explanation, Printed materials Preferred Written Language Montenegrin Family/Caregiver Prefer Written Language Montenegrin Preferred Spoken Language Montenegrin Family/Caregiver Prefer Spoken Language Montenegrin Surgical Site Infection Prevention SSI FAQ provided Infection Prevention Teaching Evaluation Verbalizes/Nonverbally indicates understanding Pre Procedure/Surgery Education Appropriate expectations, Bring glasses, hearing aids, contact lenscase, Date/Time of procedure/surgery, Hospital gown requirement worn to OR, Leave valuables, jewelry, wedding ring at home, Meds to take or hold, NPO, Responsible p d driver for discharge Procedure/Surgical Teaching Evaluation Verbalizes/Nonverbally indicates understanding Ed-Safety Verbalizes/Nonverbally indicates understanding Activity Status ADL Awake Assistive Device None NPO Status Maintained Standard Safety ID band on, Call device within reach, Bed in low position Last Fluid Intake 10/26/2022 19:30 Last Food Intake 10/26/2022 19:00 10/27/2022 6:45 EST Infectious Disease Symptoms Headache Infectious Disease Recent Exposure No Safety Brochure Information Reviewed Yes Cayden Pagan Video Viewed No Teaching Evaluation Verbalizes/Nonverbally indicates understanding Discharge To, Anticipated Home with family care Any Contact with Sick Animals/Birds No Traveled Anywhere in Last 30 Days No Admission Note-Nursing Same Day Patient History (Modified) 10/26/2022 11:42 EST Surgery Scheduled On Date/Time 10/27/2022 8:00 Patient Aware Date/Time Of Surgery Yes Arrival Time the Day of Surgery 10/27/2022 6:00 Patient Aware of Arrival Time Yes Pre-Op Patient Education NPO after midnight, No smoking after midnight, No makeup, No jewelry, Responsible Libertarian, Aware of surgery location, No ordered medications (Modified) SN - Preprocedure Comments Spoke with patient, Verbalizes/Nonverbally indicates understanding Admission Note-Nursing Date\Time Correction 10/26/2022 8:51 EST Designated Person #1 We May Share LYNDA Dillon [phone] Designated Person #1 Relationship Spouse Privacy Restrictions Requested None Height 162.4 cm Admission Weight 113.6 kg Weight Method Stated [place] Body Weight 54.56 kg Body Mass Index 43.07 kg/m2 Body Mass Index 43.07 kg/m2 Status No, per patient Sensory Deficits None Sleep Apnea Snore Yes Sleep Apnea Tired No Sleep Apnea Obstruction No Sleep Apnea Pressure No Sleep Apnea BMI Yes Sleep Apnea Age No Sleep Apnea Neck No Sleep Apnea Gender No Sleep Apnea Score 2 High Risk for Sleep Apnea No Diagnosed With Sleep Apnea No Advanced Directives No - refuses information Alcohol and Drug Use No Employee of Institutional Living No Health Care Employee No History of Exposure to TB No History of Positive Chest X-Ray for TB No History of Positive TB Skin Test No Homeless No Known Immunosuppression No Recent Immigrant No Resident of Institutional Living No Bloody Sputum No Fatigue No Fever No Loss of Appetite No Night Sweats No Persistent Cough > 3 Weeks No Weight Loss No Pre-Op Patient Education Date\Time Correction Barriers to Learning None evident Teaching Method Demonstration, Explanation, Printed materials, Teach-back Preferred Written Language Montenegrin Preferred Spoken Language Montenegrin Information Given by Patient Patient's Current Physicians Patient's Current Physicians Prev Test Positive/Diagnosis w/COVID-19 No Current Quarantine/Isolated any Illness No Lost Weight Unintentionally Recently No Eat Poorly Due to Decreased Appetite No Total MST Score 0 No Personal Devices, Patient Valuables Contact lenses, Glasses Anesthesia/Transfusions Prior anesthesia, Prior anesthesia reaction Type of Anesthesia Reaction pt is a hard iv stick Admission Note-Nursing Date\Time Correction . Assessment and Plan [place] Society of Anesthesiologists (ASA) physical status classification: Class III. Anesthetic Preoperative Plan Anesthetic technique: MAC. Maintenance airway: nasal cannula with ETCO2 monitor. Postoperative pain management: Per surgeon. Risks discussed: nausea, vomiting, headache, sore throat, dental injury, hypotension, allergic reaction, serious complications. Informed consent: signed by patient. Notes: benign intracranial HTN ( today is the 128 lumbar puncture), vaping, medical marijuana, Hx of gastric bypass(2018) seizure(06/12), reflux is controlled, anxiety/depression. Digitally Signed by RITA ZELAYA MD on 10/27/2022 08:18 AM [facility] [id number] NoteORIGINAL PROCEDURE: 1. Lumbar puncture with fluoroscopic guidance under MAC anesthesia CLINICAL STATEMENT: Benign intracranial hypertension - patient had a CASINO BANKER shunt and severe adverse event requiring explant with life threatening complications. Multiple neurosurgeons do not recommend replacement of CASINO BANKER shunt given history but instead therapeutic lumbar puncture when symptoms arise. Pt reports having 120+ LPs and significant scar tissue development including difficulty tolerating LPs with moderate sedation but instead requires MAC/general anesthesia. STATION BAGGAGE PORTER: Dr. Conklin and Aster Dietrich PA-C FLUOROSCOPY: 3.8 AIR KERMA DOSE: 631.55 mGy NEEDLE: 18 g spinal needle OPENING PRESSURE: 24 cm of H2O CLOSING PRESSURE: 8 cm of H2O CSF VOLUME REMOVED: 30 mL CSF APPEARANCE: Clear PUNCTURE LEVEL: L3-L4 The procedure, risks, and alternatives, were discussed and all questions were answered. Written informed consent obtained. Accompanying paperwork was verified for accuracy. Directed history and physical exam performed prior to the procedure. Medication reconciliation performed by nursing personnel. Procedure was performed using a cap, sterile gown, sterile gloves, a large sterile sheet, hand hygiene and Betadine for cutaneous antisepsis. The patient was positioned Left Lateral Decubitus on the table and prepped and draped in usual sterile fashion. A critical pause was performed with assisting personnel just prior to the procedure with the patient's identity confirmed using 2 identifiers, confirming site and side. A puncture site was selected and marked under fluoroscopy. 2% lidocaine was administered at the puncture site for local anesthesia. A needle was advanced into the thecal sac under fluoroscopic guidance. A documentation image was stored. Position was confirmed with flow of CSF from the needle. After the adequate volume was removed, the needle was removed. A Band-Aid was placed at the puncture site. The patient tolerated the procedure well without immediate complication. Patient condition was stable. Patient placed in supine and flat position for 1 hour post procedure. IMPRESSION: 1. Successful fluoroscopic guided lumbar puncture with MAC anesthesia. Given technical difficulty of procedure in decubitus position given awkward position of lathe operator contact lens with lateral position of C-arm, recommend prone position in the future with MAC vs general anesthesia. Procedure was performed by Dr. Conklin and Aster Dietrich PA-C Interpreted by: Elizabeth Conklin MD Preliminary Report By: Aster Dietrich PA-C Electronically signed By Elizabeth Conklin MD Dictated Date: 09/24/2022 4:33:49 PM Prelim Date: 09/24/2022 4:37:49 PM Sign Date: 10/03/2022 2:54:12 PM Ordering Provider: ANIBAL [facility] ([place]09-24-2022 Hospital Discharge instructions Patient Education 09/24/2022 15:37:21 Lumbar Puncture, Care After Lumbar Puncture, Care After This sheet gives you information about how to care for yourself after your procedure. Your health care provider may also give you more specific instructions. If you have problems or questions, contact your health care provider. What can I expect after the procedure? After the procedure, it is common to have: Mild discomfort or pain at the puncture site. A mild headache that is relieved with pain medicines. Follow these instructions at home: Activity Lie down flat or rest for as long as directed by your health care provider. Return to your normal activities as told by your health care provider. Ask your health care provider what activities are safe for you. Avoid lifting anything heavier than 10 lb (4.5 kg) for at least 12 hours after the procedure. Do not drive for 24 hours if you were given a medicine to help you relax (sedative) during your procedure. Do not drive or use heavy machinery while taking prescription pain medicine. Puncture site care Remove or change your bandage (dressing) as told by your health care provider. Check your puncture area every day for signs of infection. Check for: ?More pain. ?Redness or swelling. ?Fluid or blood leaking from the puncture site. ?Warmth. ?Pus or a bad smell. General instructions Take fglm-ieu-soncdzg and prescription medicines only as told by your health care provider. Drink enough fluids to keep your urine clear or pale yellow. Your health care provider may recommend drinking caffeine to prevent a headache. Keep all follow-up visits as told by your health care provider. This is important. Contact a health care provider if: You have fever or chills. You have nausea or vomiting. You have a headache that lasts for more than 2 days or does not get better with medicine. Get help right away if: You develop any of the following in your legs: ?Weakness. ?Numbness. ?Tingling. You are unable to control when you urinate or have a bowel movement (incontinence). You have signs of infection around your puncture site, such as: ?More pain. ?Redness or swelling. ?Fluid or blood leakage. ?Warmth. ?Pus or a bad smell. You are dizzy or you feel like you might faint. You have a severe headache, especially when you sit or stand. Summary A lumbar puncture is a procedure in which a small needle is inserted into the lower back to remove fluid that surrounds the brain and spinal cord. After this procedure, it is common to have a headache and pain around the needle insertion area. Lying flat, staying hydrated, and drinking caffeine can help prevent headaches. Monitor your needle insertion site for signs of infection, including warmth, fluid, or more pain. Get help right away if you develop leg weakness, leg numbness, incontinence, or severe headaches. This information is not intended to replace advice given to you by your health care provider. Make sure you discuss any questions you have with your health care provider. Document Released: 11/13/2014 Document Revised: 12/22/2017 Document Reviewed: 12/22/2017 [employer] Patient Education 2020 [employer] Alert. Follow Up Care 08/06/2022 11:10:32 With:ELIZABETH CONKLIN MD, [facility] Address: [address] [place] [address] [facility] [place] [address]- [phone] When: Unknown Comments:Follow-up as needed [facility] 11-03-2022 Note* Sandra Chandra: SIGN, AUTHOR, PERFORM Event Display: IR Procedure Record Authored Date: [id number] IR Procedure Record Summary Primary Physician: Finalized Date/Time: 09/24/22 14:31:26 Pt. Name: LEXIS OAKES/Sex: 1985 Female Med Rec #: [id number] Physician: Financial #: [id number] Pt. Type: S Room/Bed: [facility]/A Admit/Disch: 09/24/22 10:38:21 - Institution: Allergies identified in patient's electronic medical record at time of printing on 09/24/22 Entry 1 Entry 2 Entry 3 Substance NSAIDs gabapentin penicillin Reaction Type Allergy Allergy Allergy Last Modified By: Luis Alfredo Jolly RN Luis Alfredo Jolly RN Luis Alfredo Jolly RN 09/17/22 11:50:48 09/17/22 11:50:20 09/17/22 11:51:03 Case Attendance- IR Entry 1 Entry 2 Entry 3 Case Attendee ASTER DIETRICH MITRYAN MD BARDIN, JAMES N PAKrishna SALES PROFESSIONAL BILINGUAL-SAFETY AND HEALTH CONSULTANT Role Performed Radiology PA/RA Radiologist Procedure SAFETY AND HEALTH CONSULTANT Details Time In 09/24/22 13:36:00 09/24/22 13:18:00 09/24/22 13:10:00 Time Out 09/24/22 14:23:00 09/24/22 13:21:00 09/24/22 14:28:00 Procedure/Preference IR Lumbar Puncture SN IR Lumbar Puncture SN IR Lumbar Puncture SN Card Last Modified By: Sandra Chandra Jacque M. Brooks, Jacque M. 09/24/22 14:31:09 09/24/22 14:31:09 09/24/22 14:31:09 Entry 4 Entry 5 Entry 6 Case Attendee Mary Lou Barry Rad Tech Brooks, Jacque M. Tech Amanda K Role Performed Scrub Technologist Home Care Manager Rn 2 Circulating Technologist Details Time In 09/24/22 13:10:00 09/24/22 13:10:00 09/24/22 13:10:00 Time Out 09/24/22 14:28:00 09/24/22 14:28:00 09/24/22 14:28:00 Procedure/Preference IR Lumbar Puncture SN IR Lumbar Puncture SN IR Lumbar Puncture SN Card Last Modified By: Sandra Chandra Jacque M. Brooks, Jacque M. 09/24/22 14:31:09 09/24/22 14:31:09 09/24/22 14:31:09 Entry 7 Case Attendee ELIZABETH CONKLIN MD Role Performed Radiologist Procedure Details Time In 09/24/22 13:43:00 Time Out 09/24/22 14:28:00 Procedure/Preference IR Lumbar Puncture SN Card Last Modified By: Sandra Chandra 09/24/22 14:31:09 Radiology Procedures- IR Entry 1 Procedure/Preference IR Lumbar Puncture SN Actual Procedure IR LUMBAR PUNCTURE SN Card Primary Procedure Yes Primary Surgeon ASTER DIETRICH PA-C Anesthesia/Sedation MAC, Local Type Additional Procedure Times Start 09/24/22 13:18:00 Stop 09/24/22 14:23:00 Specialty Service SN Radiology Procedure EBL 0 mL Last Modified By: Sandra Chandra 09/24/22 14:23:51 Radiology Procedure Details - IR Entry 1 Radiology Sedation Case Times Sedation Total Time 0 Radiology - Fluid/Drainage Radiology Contrast Contrast Used? N/A Radiology Flouroscopy Fluoroscopy Used? Yes Fluoro Dose (mGy) 631.55 Fluoro Time 3.8 min Radiology Local Local Used? Yes Local Type: Lidocaine 1% Local Dose 10cc Radiology Procedure Site Site/Location L3-4 Site Condition No complications Dressing Type Bandaids Technologist Notes Opening pressure: 24 Closing pressure: 8. 30cc of clear, CSF obtained from L3-4 @ 2:10p. 18GA x 5 7/8in Chiba Needle used Last Modified By: Sandra Chandra 09/24/22 14:21:42 Cultures and Specimens- IR Entry 1 Kind Specimen Type CSF Date/Time 09/24/22 14:10:00 Last Modified By: Sandra Chandra 09/24/22 14:10:55 General Case Data - IR Entry 1 Case Information Room IR 16 Case Level IR Level 1 Wound Class None Specialty SN Radiology Procedure ASA Class None Diagnosis Preop Diagnosis Intracranial Postop Same As Preop Yes Hypertension Postop Diagnosis Intracranial Hypertension Last Modified By: Sandra Chandra 09/24/22 13:32:40 Procedure Case Times- IR Entry 1 Patient In Procedure Patient In OR 09/24/22 13:10:00 Patient Out of OR 09/24/22 14:28:00 Procedure Start/Stop Procedure Start Time 09/24/22 13:18:00 Procedure Stop Time 09/24/22 14:23:00 Last Modified By: Sandra Chandra 09/24/22 14:31:07 Immediate Post Procedure Note - IR Entry 1 Immediate Post Yes Procedure Note displayed for Physician to review Closure Technique Closure Technique Other than Primary Last Modified By: Sandra Chandra 09/24/22 14:23:39 Immediate Post Procedure Note - IR Signed By: ASTER DIETRICH PA-C 09/24/22 14:23 Allergy Information- IR Entry 1 Allergies Reviewed? Yes Allergies Reviewed Patient With Last Modified By: Sandra Chandra 09/24/22 13:24:21 Radiology Protocols/Time Out- IR Entry 1 Preprocedure Clinician Verifies Correct patient ID When Clinically Consent for using name & date Indicated Administration of or MRN, Accurate Blood, Confirmation of procedure, complete correct side(s) and Informed Consent, H & P site(s), Correct update immediately diagnostic and prior to procedure, if radiology tests applicable, Anesthesia available, Required personnel completed blood products, medication and implants, devices anesthesia machine and/or special check., Anesthesia equipment available personnel completed assessment of allergies, airway, and aspiration risk. OR/Procedure Room/Bedside Time 09/24/22 13:18:00 Clinician Verifies Correct patient identity including EMR & records using name and date or medical record number, Accurate procedure consent form, Correct patient position, Necessary equipment is available When Applicable Consent for Team Members ASTER DIETRICH Administration of Present for Time Out TELLO LONG MITRYAN MD, Blood, Confirmation [place] STONER correct side and site SALES PROFESSIONAL BILINGUAL-HELADIO, shaji Barry Scalper OperatorDennise Scalper Operator Itz Schafer Jacque M. Instrument Sterility Procedure IR Lumbar Puncture SN Last Modified By: Sandra Chandra 09/24/22 13:28:20 Skin Prep- IR Entry 1 Procedure IR Lumbar Puncture SN Skin Prep Prep Area Back Side Lower, Medial By Mary Lou Barry Rad Prep Agents [employer] Instructor Hair Removal Method N/A Last Modified By: Sandra Chandra 09/24/22 13:29:38 Patient Positioning- IR Entry 1 Procedure IR Lumbar Puncture SN Body Position OP Left Lateral Feet Uncrossed? Yes Pressure Points n/a Checked Last Modified By: Sandra Chandra 09/24/22 13:31:18 Radiology Procedure Plan - IR Entry 1 Radiology - Nursing Care Plan Radiology - Action Plan Action Plan - Patient demonstrates Outcome Statement knowledge of the expected reseponses to the invasive procedure, Patient's value system, lifestyle, ethnicity, and culture are considered, respected, and incorporated in the perioperative plan of care., Patient is free from signs and symptoms of infection., Patient is free from signs and symptoms of injury related to positioning., Patient is free from signs and symptoms of chemical injury., Patient receives appropriate medication(s), safely administered during the perioperative period., Patient is free from signs and symptoms of injury caused by extraneous objects (equipment, instrumentation, sponges, or sharps)., Patient is free from signs and symptoms of electrical injury. Outcomes Met? Yes Transmissions Systems Operator Sandra Chandra Completing Procedure Plan Last Modified By: Sandra Chandra 09/24/22 13:32:13 Case Comments <None> Finalized By: Sandra Chandra Document Signatures Signed By: Sandra Chandra 09/24/22 14:31 [facility] 11-03-2022 Summary of episode note Discharge Instructions Thank you for allowing [facility] to assist you with your healthcare needs. The following is importantdischarge information regarding your hospital visit. What to do next Follow Up Appointments Follow Up with ELIZABETH CONKLIN MD, [facility] When Why: Follow-up as needed Where: [address] [facility] [place] [address]- [phone] The Following Activity and Diet Have Been Ordered for You No qualifying data available. No qualifying data available. The Following Equipment Has Been Ordered for You No qualifying data available. The Following Treatments Have Been Ordered for You Discharge Labs No qualifying data available. Discharge Radiology No qualifying data available. Other Therapies No qualifying data available. Post Acute Orders No qualifying data available. Someone Will Contact You Regarding These Home Health Referrals No home referrals have been ordered for you. No one will call you. Allergies NSAIDs (Ulcers/Lesions) gabapentin (Tremors) penicillin (Rash) Medications Please ask your primary doctor or pharmacist before taking any other medication not listed, including over the counter drugs, herbal medications, vitamins and or supplements as they may interact withyour home medications. What How Much When Instructions Last Dose Unchanged ARIPiprazole (Abilify 5 mg oral tablet) 1 tab(s) by mouth Once a day Unchanged cholecalciferol (Vitamin D3) 25 Microgram by mouth Once a day (in the morning) Unchanged DULoxetine (Cymbalta 60 mg oral delayed release capsule) 1 cap by mouth Two (2) times a day Unchanged lacosamide (lacosamide 150 mg oral tablet) 1 tab(s) by mouth Two (2) times a day Unchanged LORazepam (LORazepam 0.5 mg oral tablet) 1 tab(s) by mouth Daily at bedtime Unchanged Misc Medication 1 tab(s) by mouth Once a day (in the morning) citracal max plus D3 Unchanged multivitamin (Multivitamin) 1 tab(s) by mouth Once a day (in the morning) Unchanged nortriptyline (nortriptyline 75 mg oral capsule) 1 cap by mouth Daily at bedtime Unchanged omeprazole (omeprazole 20 mg oral delayed release capsule) 1 cap by mouth Once a day (in the morning) Unchanged traMADol (traMADol 50 mg oral tablet) 1 tab(s) by mouth Two (2) times a day as needed for for pain What How Much When Comments Stop Taking donepezil (Aricept 5 mg oral tablet) 1 tab(s) by mouth Daily at bedtime Please take this list to your next doctor s visit. Bring all medications you take, including over the counter medications, herbals and other supplements with you to your doctor s visit. Patients and families are reminded to discard old lists and to update any records with all medication providers or retail pharmacies. Education Materials Lumbar Puncture, Care After This sheet gives you information about how to care for yourself after your procedure. Your health care provider may also give you more specific instructions. If you have problems or questions, contact your health care provider. What can I expect after the procedure? After the procedure, it is common to have: Mild discomfort or pain at the puncture site. A mild headache that is relieved with pain medicines. Follow these instructions at home: Activity Lie down flat or rest for as long as directed by your health care provider. Return to your normal activities as told by your health care provider. Ask your health care provider what activities are safe for you. Avoid lifting anything heavier than 10 lb (4.5 kg) for at least 12 hours after the procedure. Do not drive for 24 hours if you were given a medicine to help you relax (sedative) during your procedure. Do not drive or use heavy machinery while taking prescription pain medicine. Puncture site care Remove or change your bandage (dressing) as told by your health care provider. Check your puncture area every day for signs of infection. Check for: ? More pain. ? Redness or swelling. ? Fluid or blood leaking from the puncture site. ? Warmth. ? Pus or a bad smell. General instructions Take spgb-uux-fhhqeov and prescription medicines only as told by your health care provider. Drink enough fluids to keep your urine clear or pale yellow. Your health care provider may recommend drinking caffeine to prevent a headache. Keep all follow-up visits as told by your health care provider. This is important. Contact a health care provider if: You have fever or chills. You have nausea or vomiting. You have a headache that lasts for more than 2 days or does not get better with medicine. Get help right away if: You develop any of the following in your legs: ? Weakness. ? Numbness. ? Tingling. You are unable to control when you urinate or have a bowel movement (incontinence). You have signs of infection around your puncture site, such as: ? More pain. ? Redness or swelling. ? Fluid or blood leakage. ? Warmth. ? Pus or a bad smell. You are dizzy or you feel like you might faint. You have a severe headache, especially when you sit or stand. Summary A lumbar puncture is a procedure in which a small needle is inserted into the lower back to remove fluid that surrounds the brain and spinal cord. After this procedure, it is common to have a headache and pain around the needle insertion area. Lying flat, staying hydrated, and drinking caffeine can help prevent headaches. Monitor your needle insertion site for signs of infection, including warmth, fluid, or more pain. Get help right away if you develop leg weakness, leg numbness, incontinence, or severe headaches. This information is not intended to replace advice given to you by your health care provider. Make sure you discuss any questions you have with your health care provider. Document Released: 11/13/2014 Document Revised: 12/22/2017 Document Reviewed: 12/22/2017 [email or web address] Patient Education 2020 [employer] Additional Information VACCINATE! IT SAVES LIVES! Members of the community who have not yet received the COVID-19 vaccine and would like to receive it can visit one of [facility] vaccine clinics. There are many vaccine clinic locations within the [facility]. For locations and available times, please visit [email or web address] It is important to note that some COVID mobile vaccine clinics are held outdoors and may be canceled in rainy or stormy conditions. To learn more about pediatric vaccinations (ages 5-11), we invite you to visit the [facility] webpage. [email or web address] learn more about the COVID-19 vaccine, we invite you to visit the [facility] website for a list of frequently asked questions. [email or web address] [facility] Patient Portal Access Instructions: Stay connected with your healthcare team and access your personal medical information anytime with the [facility] Patient Portal.If you would like a full copy of your medical records, please contact the [facility] Medical Records Department, Wednesday through Wednesday between 8a.m. and 4:30p.m. Please follow the directions below to access the portal: 1.Access the email account you provided upon registration to the hospital.2.Look for an invitation email from [facility].3.Open the email and access the invitation link: Accept Invitation to [facility]4.Fill in the required mauricio to create your account. Sign into www.[employer] with your username and password that you created in the above steps to stay up to date. You can then view a summary of results, a summary of your visits, and the ability to download your summaries to your computer or send the information securely to a physician. Remember that your healthcare information is confidential, so carefully consider who you will allow to register on the [facility] Patient Portal for access to your information. You can also access the [facility] Patient Portal on the [employer] pilar. Simply click on Health Records under [employer] and then click on the [employer] logo. HOW TO SAFELY DISPOSE OF PRESCRIPTION MEDICATIONS Please use one of the following methods to safely dispose of your unused medications. 1.Use a drug disposal kit: the drug disposal pouch allows you to safely discard your old and unuseddrugs. Ask your nurse to give you one when you are discharged.2.Visit a local take-back location: Many local pharmacies and police departments have programs that collect old and unwanted prescriptiondrugs. Call your local pharmacy or go to http://[place].ShareMagnet/1I6Rp7f to find one close to you.3.Make use of household items: Use cat litter or old coffee grounds to dispose medications if other options arenot available. Mix your drugs with these household products, seal them in an airtight container andthrow it into the garbage. Call [facility]: [phone] to be sure your drugs can be disposed of in this way. Some medicines may require a different approach.4.Never flush your medications down the toilet. IF YOU HAVE BEEN PRESCRIBED AN OPIOID FOR PAIN If you have been prescribed an opioid (such as hydrocodone, oxycodone or morphine), it is critical to understand the possible side effects and risks of opioid pain medications. Even when taken as directed, opioids can have several side effects including: Tolerance, meaning you might need to take more of a medication for the same pain relief. Nausea, vomiting and/or constipation. Sleepiness, dizziness, dry mouth, confusion, depression or itching. Physical dependence, meaning you have withdrawal symptoms when a medication is stopped, can develop within a few days. KNOW YOUR RESPONSIBILITIES It is important to know exactly how much and how often to take the opioid pain medications you are prescribed. Never take opioids in higher amounts or more often than prescribed. Do not combine opioids with alcohol or other drugs that cause drowsiness, such as benzodiazepines, also known as benzos, including diazepam and alprazolam, muscle relaxants or sleep aids. Never sell or share prescription opioids. This is illegal. Store opioids in a secure place and out of reach of others (including children, family, friends and visitors). The last page of this document has been signed and retained as a CHART COPY. Signatures Patient Education Materials Lumbar Puncture, Care After Medication Leaflets My discharge plan and instructions have been reviewed and explained to me and I,LEXIS OAKES understand my current condition and have read and understand these discharge instructions. I have received a written copy of the plan/instructions. If I have questions, I am aware that I should contact my doctor. Patient/Professor/Nurse Anesthetist Signature: Date/Time: Relationship to Patient: Witness Name/Signature: [id number] Anesthesiology Consult note Patient: LEXIS OAKES Age: 37 years Sex: Female : 1985 Associated Diagnoses: None Author: RYLEY LINDA MD Postoperative Information Post Operative Info: Post op day: Post Anesthesia Care Unit. Patient location: PACU. Assessment Postanesthesia assessment Vitals: Vital signs from flowsheet : Vital Signs 09/24/2022 15:00 EDT Temperature Temporal Artery 36.0 DegC Heart Rate Monitored 79 bpm Respiratory Rate 16 br/min Systolic Blood Pressure NBP 114 mmHg Diastolic Blood Pressure NBP 69 mmHg Mean Arterial Pressure (NBP) 80 mmHg 09/24/2022 14:45 EDT Heart Rate Monitored 73 bpm Respiratory Rate 18 br/min Systolic Blood Pressure NBP 113 mmHg Diastolic Blood Pressure NBP 74 mmHg Mean Arterial Pressure (NBP) 81 mmHg 09/24/2022 14:30 EDT Temperature Temporal Artery 36.2 DegC Heart Rate Monitored 70 bpm Respiratory Rate 18 br/min Systolic Blood Pressure NBP 103 mmHg Diastolic Blood Pressure NBP 79 mmHg Mean Arterial Pressure (NBP) 83 mmHg 09/24/2022 11:06 EDT Temperature Temporal Artery 36.2 DegC Apical Heart Rate 89 bpm Respiratory Rate 18 br/min Systolic Blood Pressure 113 mmHg Diastolic Blood Pressure 79 mmHg Mean Arterial Pressure 90 mmHg . Mental status: at preoperative baseline. Respiratory function: respirations are non-labored, Stable. Respiratory support: none. CV function: Stable. Cardiovascular support: none. Pain: Satisfactory. Nausea status: Satisfactory. Postoperative hydration status: within normal limits. Notes: Patient is sufficiently recovered from anesthesia to participate in the evaluation. No follow-up care needed. No complications post-anesthesia.. Digitally Signed by RYLEY LINDA MD on 09/24/2022 03:03 PM [id number] IR Procedure Record Summary Primary Physician: Finalized Date/Time: 09/24/22 14:31:26 Pt. Name: LEXIS OAKES /Sex: 1985 Female Med Rec #: [id number] Physician: Financial #: [id number] Pt. Type: S Room/Bed: [facility]/A Admit/Disch: 09/24/22 10:38:21 - Institution: Allergies identified in patient's electronic medical record at time of printing on 09/24/22 Entry 1 Entry 2 Entry 3 Substance NSAIDs gabapentin penicillin Reaction Type Allergy Allergy Allergy Last Modified By: Luis Alfredo Jolly RN, Jan S RN Bryan, Jan S RN 09/17/22 11:50:48 09/17/22 11:50:20 09/17/22 11:51:03 Case Attendance- IR Entry 1 Entry 2 Entry 3 Case Attendee ASTER DIETRICH MITRYAN MD BARDIN, JAMES N PAKrishna SALES PROFESSIONAL BILINGUAL-SAFETY AND HEALTH CONSULTANT Role Performed Radiology PA/RA Radiologist Procedure SAFETY AND HEALTH CONSULTANT Details Time In 09/24/22 13:36:00 09/24/22 13:18:00 09/24/22 13:10:00 Time Out 09/24/22 14:23:00 09/24/22 13:21:00 09/24/22 14:28:00 Procedure/Preference IR Lumbar Puncture SN IR Lumbar Puncture SN IR Lumbar Puncture SN Card Last Modified By: Sandra Chandra Jacque M. Brooks, Jacque M. 09/24/22 14:31:09 09/24/22 14:31:09 09/24/22 14:31:09 Entry 4 Entry 5 Entry 6 Case Attendee Mary Lou Barry Rad Tech Brooks, Jacque M. Tech Amanda K Role Performed Scrub Technologist Home Care Manager Rn 2 Circulating Technologist Details Time In 09/24/22 13:10:00 09/24/22 13:10:00 09/24/22 13:10:00 Time Out 09/24/22 14:28:00 09/24/22 14:28:00 09/24/22 14:28:00 Procedure/Preference IR Lumbar Puncture SN IR Lumbar Puncture SN IR Lumbar Puncture SN Card Last Modified By: Sandra Chandra Jacque M. Brooks, Jacque M. 09/24/22 14:31:09 09/24/22 14:31:09 09/24/22 14:31:09 Entry 7 Case Attendee ELIZABETH CONKLIN MD Role Performed Radiologist Procedure Details Time In 09/24/22 13:43:00 Time Out 09/24/22 14:28:00 Procedure/Preference IR Lumbar Puncture SN Card Last Modified By: Sandra Chandra 09/24/22 14:31:09 Radiology Procedures- IR Entry 1 Procedure/Preference IR Lumbar Puncture SN Actual Procedure IR LUMBAR PUNCTURE SN Card Primary Procedure Yes Primary Surgeon ASTER DIETRICH PA-C Anesthesia/Sedation MAC, Local Type Additional Procedure Times Start 09/24/22 13:18:00 Stop 09/24/22 14:23:00 Specialty Service SN Radiology Procedure EBL 0 mL Last Modified By: Sandra Chandra 09/24/22 14:23:51 Radiology Procedure Details - IR Entry 1 Radiology Sedation Case Times Sedation Total Time 0 Radiology - Fluid/Drainage Radiology Contrast Contrast Used? N/A Radiology Flouroscopy Fluoroscopy Used? Yes Fluoro Dose (mGy) 631.55 Fluoro Time 3.8 min Radiology Local Local Used? Yes Local Type: Lidocaine 1% Local Dose 10cc Radiology Procedure Site Site/Location L3-4 Site Condition No complications Dressing Type Bandaids Technologist Notes Opening pressure: 24 Closing pressure: 8. 30cc of clear, CSF obtained from L3-4 @ 2:10p. 18GA x 5 7/8in Chiba Needle used Last Modified By: Sandra Chandra 09/24/22 14:21:42 Cultures and Specimens- IR Entry 1 Kind Specimen Type CSF Date/Time 09/24/22 14:10:00 Last Modified By: Sandra Chandra 09/24/22 14:10:55 General Case Data - IR Entry 1 Case Information Room AH IR 16 Case Level IR Level 1 Wound Class None Specialty SN Radiology Procedure ASA Class None Diagnosis Preop Diagnosis Intracranial Postop Same As Preop Yes Hypertension Postop Diagnosis Intracranial Hypertension Last Modified By: Sandra Chandra 09/24/22 13:32:40 Procedure Case Times- IR Entry 1 Patient In Procedure Patient In OR 09/24/22 13:10:00 Patient Out of OR 09/24/22 14:28:00 Procedure Start/Stop Procedure Start Time 09/24/22 13:18:00 Procedure Stop Time 09/24/22 14:23:00 Last Modified By: Sandra Chandra 09/24/22 14:31:07 Immediate Post Procedure Note - IR Entry 1 Immediate Post Yes Procedure Note displayed for Physician to review Closure Technique Closure Technique Other than Primary Last Modified By: Sandra Chandra 09/24/22 14:23:39 Immediate Post Procedure Note - IR Signed By: ASTER DIETRICH PA-C 09/24/22 14:23 Allergy Information- IR Entry 1 Allergies Reviewed? Yes Allergies Reviewed Patient With Last Modified By: Sandra Chandra 09/24/22 13:24:21 Radiology Protocols/Time Out- IR Entry 1 Preprocedure Clinician Verifies Correct patient ID When Clinically Consent for using name & date Indicated Administration of or MRN, Accurate Blood, Confirmation of procedure, complete correct side(s) and Informed Consent, H & P site(s), Correct update immediately diagnostic and prior to procedure, if radiology tests applicable, Anesthesia available, Required personnel completed blood products, medication and implants, devices anesthesia machine and/or special check., Anesthesia equipment available personnel completed assessment of allergies, airway, and aspiration risk. OR/Procedure Room/Bedside Time 09/24/22 13:18:00 Clinician Verifies Correct patient identity including EMR & records using name and date or medical record number, Accurate procedure consent form, Correct patient position, Necessary equipment is available When Applicable Consent for Team Members ASTER DIETRICH Administration of Present for Time Out TELLO LONG MITRYAN MD, Blood, Confirmation [place] STONER correct side and site SALES PROFESSIONAL BILINGUAL-HELADIO, shaji Barry Scalper OperatorDennise Scalper Operator Itz Schafer Jacque M. Instrument Sterility Procedure IR Lumbar Puncture SN Last Modified By: Sandar Chandra 09/24/22 13:28:20 Skin Prep- IR Entry 1 Procedure IR Lumbar Puncture SN Skin Prep Prep Area Back Side Lower, Medial By Mary Lou Barry Rad Prep Agents [employer] Instructor Hair Removal Method N/A Last Modified By: Sandra Chandra 09/24/22 13:29:38 Patient Positioning- IR Entry 1 Procedure IR Lumbar Puncture SN Body Position OP Left Lateral Feet Uncrossed? Yes Pressure Points n/a Checked Last Modified By: Sandra Chandra 09/24/22 13:31:18 Radiology Procedure Plan - IR Entry 1 Radiology - Nursing Care Plan Radiology - Action Plan Action Plan - Patient demonstrates Outcome Statement knowledge of the expected reseponses to the invasive procedure, Patient's value system, lifestyle, ethnicity, and culture are considered, respected, and incorporated in the perioperative plan of care., Patient is free from signs and symptoms of infection., Patient is free from signs and symptoms of injury related to positioning., Patient is free from signs and symptoms of chemical injury., Patient receives appropriate medication(s), safely administered during the perioperative period., Patient is free from signs and symptoms of injury caused by extraneous objects (equipment, instrumentation, sponges, or sharps)., Patient is free from signs and symptoms of electrical injury. Outcomes Met? Yes Transmissions Systems Operator Sandra Chandra Completing Procedure Plan Last Modified By: Sandra Chandra 09/24/22 13:32:13 Case Comments Finalized By: Sandra Chandra Document Signatures Signed By: Sandra Chandra 09/24/22 14:31 [id number] Evaluation + Plan noteExtracted from: Title:IR pre-procedure H&P - lumbar puncture Author:SACHI WATTS PA-C Date:09/24/22 Interventional Radiology Focused Preprocedure History/Physical Reason for Visit BENIGN INTRACRANIAL HYPERTENTION History of Presenting Illness/Planned IR Procedure 37 y.o female with hx of BIH with reported multiple therapeutic lumbar punctures presents to IR for image guided lumbar puncture Allergies (3) ActiveReaction gabapentinTremors NSAIDsUlcers/Lesions penicillinRash Home Medications (10) Active Abilify 5 mg oral tablet 5 mg = 1 tab(s), Oral, qDay Cymbalta 60 mg oral delayed release capsule 60 mg = 1 cap(s), Oral, BID lacosamide 150 mg oral tablet 150 mg = 1 tab(s), Oral, BID LORazepam 0.5 mg oral tablet 0.5 mg = 1 tab(s), Oral, qHS Misc Medication 1 tab(s), Oral, qAM Multivitamin 1 tab(s), Oral, qAM nortriptyline 75 mg oral capsule 75 mg = 1 cap(s), Oral, qHS omeprazole 20 mg oral delayed release capsule 20 mg = 1 cap(s), Oral, qAM traMADol 50 mg oral tablet 50 mg = 1 tab(s), PRN, Oral, BID Vitamin D3 25 mcg = 1 tab(s), Oral, qAM Problem List/Past Medical History Acid reflux Anxiety BMI 45.0-49.9, adult Back pain Benign intracranial hypertension Contact lenses Depression Epilepsy Glasses Headache History of PCOS History of gastric bypass Lethargy Nerve damage Surgical History Gastric bypass: 2013 Abdominal hysterectomy Shoulder Cholecystectomy History of tonsillectomy Extraction of wisdom tooth Shunt Appendectomy Family History Mother: COPD (Chronic Obstructive Pulmonary Disease) Assessment Test scale Father: Diabetes mellitus type 2; Skin cancer Social History Alcohol Details: Use: Current. Frequency: 1-2 times per month. Home/Environment Details: Safe place to go: Yes. Substance Abuse Details: Use: Current. Type: Marijuana.; Comment(s): medical marijuana Tobacco Details: Nicotine Use: Vaping Product in Last 90 Days. Type: medical marijuana. Started at age: 32 Years. Physical Exam Vitals: Lsnnzojiqdo63.2 (11:06) Systolic Blood Mhvttyde708 (11:06) Diastolic Blood Sbrztppr90 (11:06) Pulse89 (11:06) GuM6392 (11:06) Respiratory Rate18 (11:06) General: Alert, cooperative. Heart: RRR Lungs: CTA bilaterally The remainder of the physical exam is noncontributory. Labs Anticoagulation Labs Protime: 11.4 seconds (09/24/22 11:40:00) PT International Ratio: 1 ratio (09/24/22 11:40:00) Last Month Basic Metabolic Panel: Hematology: Sodium Level: 140 (09/17/22) Hgb: 13.1 (09/17/22) Potassium Level: 4.7 (09/17/22) : () Phosphorus: ------ WBC: 6.6 (09/17/22) Magnesium Lvl: ------ Platelet: 200 (09/24/22) BUN: 14.0 (09/17/22) PT International Ratio: 1.0 (09/24/22) Creatinine Lvl (s): 0.66 (09/17/22) : () Additional - Last Month Basophil %: 0.5 (09/17/22) Basophil, Absolute: 0.0 (09/17/22) BUN/Creatinine Ratio: 21.2 (09/17/22) Calcium Lvl: 8.7 (09/17/22) Chloride: 105 (09/17/22) CO2: 31 (09/17/22) Electrolyte Balance: 4.0 (09/17/22) Eosinophil %: 1.1 (09/17/22) Eosinophil, Absolute: 0.1 (09/17/22) GFR : >60 (09/17/22) GFR Non-: >60 (09/17/22) Glucose Level: 84 (09/17/22) Hct: 38.9 (09/17/22) Lymphocyte %: 32.9 (09/17/22) Lymphocyte, Absolute: 2.2 (09/17/22) MCH: 32.2 (09/17/22) MCHC: 33.7 (09/17/22) MCV: 95.5 (09/17/22) Monocyte %: 6.6 (09/17/22) Monocyte, Absolute: 0.4 (09/17/22) MPV: 8.4 (09/17/22) Neutrophil %: 58.9 (09/17/22) Neutrophil, Absolute: 3.9 (09/17/22) Protime: 11.4 (09/24/22) RBC: 4.08 (09/17/22) RDW: 12.6 (09/17/22) Assessment/Treatment Plan Image guided lumbar puncture Post Procedure Discharge Plan Patient to JOHANNA Watts PA-C Interventional Radiology Pager: [phone] IR dept: [phone] Available on [facility] 11-03-2022 History and physical note Interventional Radiology Focused Preprocedure History/Physical Reason for Visit BENIGN INTRACRANIAL HYPERTENTION History of Presenting Illness/Planned IR Procedure 37 y.o female with hx of BIH with reported multiple therapeutic lumbar punctures presents to IR forimage guided lumbar puncture Allergies (3) ActiveReaction gabapentinTremors NSAIDsUlcers/Lesions penicillinRash Home Medications (10) Active Abilify 5 mg oral tablet 5 mg = 1 tab(s), Oral, qDay Cymbalta 60 mg oral delayed release capsule 60 mg = 1 cap(s), Oral, BID lacosamide 150 mg oral tablet 150 mg = 1 tab(s), Oral, BID LORazepam 0.5 mg oral tablet 0.5 mg = 1 tab(s), Oral, qHS Misc Medication 1 tab(s), Oral, qAM Multivitamin 1 tab(s), Oral, qAM nortriptyline 75 mg oral capsule 75 mg = 1 cap(s), Oral, qHS omeprazole 20 mg oral delayed release capsule 20 mg = 1 cap(s), Oral, qAM traMADol 50 mg oral tablet 50 mg = 1 tab(s), PRN, Oral, BID Vitamin D3 25 mcg = 1 tab(s), Oral, qAM Problem List/Past Medical History Acid reflux Anxiety BMI 45.0-49.9, adult Back pain Benign intracranial hypertension Contact lenses Depression Epilepsy Glasses Headache History of PCOS History of gastric bypass Lethargy Nerve damage Surgical History Gastric bypass: 2013 Abdominal hysterectomy Shoulder Cholecystectomy History of tonsillectomy Extraction of wisdom tooth Shunt Appendectomy Family History Mother: COPD (Chronic Obstructive Pulmonary Disease) Assessment Test scale Father: Diabetes mellitus type 2; Skin cancer Social History Alcohol Details: Use: Current. Frequency: 1-2 times per month. Home/Environment Details: Safe place to go: Yes. Substance Abuse Details: Use: Current. Type: Marijuana.; Comment(s): medical marijuana Tobacco Details: Nicotine Use: Vaping Product in Last 90 Days. Type: medical marijuana. Started at age: 32 Years. Physical Exam Vitals: Egzmoitveyq62.2 (11:06) Systolic Blood Usfoszoa536 (11:06) Diastolic Blood Pfucbrib99 (11:06) Pulse89 (11:06) CfS2169 (11:06) Respiratory Rate18 (11:06) General: Alert, cooperative. Heart: RRR Lungs: CTA bilaterally The remainder of the physical exam is noncontributory. Labs Anticoagulation Labs Protime: 11.4 seconds (09/24/22 11:40:00) PT International Ratio: 1 ratio (09/24/22 11:40:00) Last Month Basic Metabolic Panel: Hematology: Sodium Level: 140 (09/17/22) Hgb: 13.1 (09/17/22) Potassium Level: 4.7 (09/17/22) : () Phosphorus: ------ WBC: 6.6 (09/17/22) Magnesium Lvl: ------ Platelet: 200 (09/24/22) BUN: 14.0 (09/17/22) PT International Ratio: 1.0 (09/24/22) Creatinine Lvl (s): 0.66 (09/17/22) : () Additional - Last Month Basophil %: 0.5 (09/17/22) Basophil, Absolute: 0.0 (09/17/22) BUN/Creatinine Ratio: 21.2 (09/17/22) Calcium Lvl: 8.7 (09/17/22) Chloride: 105 (09/17/22) CO2: 31 (09/17/22) Electrolyte Balance: 4.0 (09/17/22) Eosinophil %: 1.1 (09/17/22) Eosinophil, Absolute: 0.1 (09/17/22) GFR : >60 (09/17/22) GFR Non-: >60 (09/17/22) Glucose Level: 84 (09/17/22) Hct: 38.9 (09/17/22) Lymphocyte %: 32.9 (09/17/22) Lymphocyte, Absolute: 2.2 (09/17/22) MCH: 32.2 (09/17/22) MCHC: 33.7 (09/17/22) MCV: 95.5 (09/17/22) Monocyte %: 6.6 (09/17/22) Monocyte, Absolute: 0.4 (09/17/22) MPV: 8.4 (09/17/22) Neutrophil %: 58.9 (09/17/22) Neutrophil, Absolute: 3.9 (09/17/22) Protime: 11.4 (09/24/22) RBC: 4.08 (09/17/22) RDW: 12.6 (09/17/22) Assessment/Treatment Plan Image guided lumbar puncture Post Procedure Discharge Plan Patient to [facility] Sachi Watts PA-C Interventional Radiology Pager: [phone] IR dept: x [phone] Available on [employer] Digitally Signed by SACHI WATTS PA-C on 09/24/2022 01:16 PM Digitally Signed by ELIZABETH CONKLIN MD on 09/24/2022 05:41 PM [facility] [id number] Anesthesiology Consult note Patient: LEXIS OAKES Age: 37 years Sex: Female : 1985 Associated Diagnoses: None Author: TITI OSCAR DO Preoperative Information Time of last food or liquid consumption: 09/24/2022 00:00:00 Anesthesia history Patient's history: negative. Family's history: negative. History of Present Illness Please refer to most recent H and P / daily progress note / consultation note for further details benign intracranial hypertension (s/p 127 lumbar punctures per patient), GERD controlled [facility] medication, epilepsy last seizure 06/12 grand mal (due to stress of moving to [place], denies medication changes), pseudotumor cerebri, PTSD, chronic lower back pain secondary to LPs, chronic tension headache, status post gastric bypass surgery 2013, resolved hypertension Review of Systems Respiratory: Denies respiratory issues, no inhaler use or O2 use . Cardiovascular: Denies hx of mi or cad able to climb a flight of stairs or more without chest pain or anginal symptoms >4mets . Gastrointestinal: Negative except as documented in history of present illness. Genitourinary: Negative except as documented in history of present illness. Endocrine: Negative except as documented in history of present illness. Musculoskeletal: Negative except as documented in history of present illness. Integumentary: Negative except as documented in history of present illness. Neurologic: Hx of epilepsy last semay took Vimpat today states well controlled while on medicaiton . Health Status Allergies: Allergic Reactions (Selected) Severity Not Documented Gabapentin- Tremors. NSAIDs- Ulcers/lesions. Penicillin- Rash., Allergies (3) ActiveReaction gabapentinTremors NSAIDsUlcers/Lesions penicillinRash Current medications: (Selected) Inpatient Medications Ordered LR 1,000 mL: 20 mL/hr, Intravenous, Stop: 09/24/22 22:59:00 EDT lidocaine 1% preservative-free injectable solution: 2.5 mg, 0.25 mL, Intradermal, PREOP pharm Documented Medications Documented Abilify 5 mg oral tablet: 5 mg, 1 tab(s), Oral, qDay, 30 tab(s), 0 Refill(s) Cymbalta 60 mg oral delayed release capsule: 60 mg, 1 cap(s), Oral, BID, 30 cap(s), 0 Refill(s) LORazepam 0.5 mg oral tablet: 0.5 mg, 1 tab(s), Oral, qHS, 0 Refill(s) Misc Medication: 1 tab(s), Oral, qAM, citracal max plus D3, 0 Refill(s) Multivitamin: 1 tab(s), Oral, qAM, 0 Refill(s) Vitamin D3: 25 mcg, 1 tab(s), Oral, qAM, 30 tab(s), 0 Refill(s) lacosamide 150 mg oral tablet: 150 mg, 1 tab(s), Oral, BID, 60 tab(s), 0 Refill(s) nortriptyline 75 mg oral capsule: 75 mg, 1 cap(s), Oral, qHS, 30 cap(s), 0 Refill(s) omeprazole 20 mg oral delayed release capsule: 20 mg, 1 cap(s), Oral, qAM, 180 cap(s), 0 Refill(s) traMADol 50 mg oral tablet: 50 mg, 1 tab(s), Oral, BID, PRN: for pain, 12 tab(s), 0 Refill(s), Medications (2) Active Scheduled: (1) lidocaine 1% (MPF) 2 mL vial pf 2.5 mg 0.25 mL, Intradermal, PREOP pharm Continuous: (1) Lactated Ringers 1,000 mL 1,000 mL, Intravenous, 20 mL/hr PRN: (0) Problem list: Medical Anxiety / SNOMED CT 40936489 / Confirmed Back pain / SNOMED CT 9344794412 / Confirmed Benign intracranial hypertension / SNOMED CT 339086950 / Confirmed Depression / SNOMED CT 092562727 / Confirmed Epilepsy / SNOMED CT 521520517 / Confirmed Acid reflux / SNOMED CT 770162896 / Confirmed Headache / SNOMED CT 02472747 / Confirmed, Active Problems (14) Acid reflux Anxiety Back pain Benign intracranial hypertension BMI 45.0-49.9, adult Contact lenses Depression Epilepsy Glasses Headache History of gastric bypass History of PCOS Lethargy Nerve damage Histories Past Medical History: No active or resolved past medical history items have been selected or recorded. Family History: Diabetes mellitus type 2 Father Skin cancer Father COPD (Chronic Obstructive Pulmonary Disease) Assessment Test scale Mother Procedure history: Gastric bypass (0710837298) in 2013 at 28 Years. Abdominal hysterectomy (341454983). Cholecystectomy (54817860). Shoulder (53176457). Comments: 09/17/2022 12:07 Luis Alfredo Perdomo RN right X2 History of tonsillectomy (2109490147). Appendectomy (099881340). Shunt (975244145). Comments: 09/17/2022 12:08 Luis Alfredo Perdomo RN CASINO [employer]ER shunt Extraction of wisdom tooth (537232812). Social History Social & Psychosocial Habits Alcohol 09/17/2022 Use: Current Frequency: 1-2 times per month Substance Abuse 09/17/2022 Use: Current Type: Marijuana Comment: medical marijuana - 09/17/2022 12:10 - Luis Alfredo Jolly RN Tobacco 09/17/2022 Tobacco Use: Vaping Product in Last Type: medical marijuana Started at age: 32 Years Home/Environment 09/17/[address]: Yes . Physical Examination Vital Signs 09/24/2022 11:06 EDT Temperature Temporal Artery 36.2 DegC Apical Heart Rate 89 bpm Respiratory Rate 18 br/min Systolic Blood Pressure 113 mmHg Diastolic Blood Pressure 79 mmHg Mean Arterial Pressure 90 mmHg Vital Signs(last 24 hrs) Last Charted Resp Rate 18 br/min (SEP 24 11:06) Measurements from flowsheet : Measurements 09/24/2022 11:06 EDT Height 162.6 cm Height in inches 64 inch(es) Admission Weight 115.3 kg Weight Lbs 253.7 lb [place] Body Weight 54.74 kg Admission Body Mass Index 43.61 m2 Pain assessment: Pain Assessment 09/24/2022 11:06 EDT Primary Pain Location Headache Primary Pain Intensity 9 Pain Scale Type 0-10 Pain scale . General: Alert and oriented. Airway: Mallampati classification: III (soft palate, base of uvula visible). Dentition Evaluation: Own teeth. Respiratory: Respirations are non-labored. Neurologic: Alert, Oriented. Review / Management Results review: Labs (Last four charted values) Plt 200(SEP 24) PT 11.4(SEP 24) INR 1.0(SEP 24) , Lab results 09/24/2022 11:40 EDT Platelet 200 10^3/mcL Protime 11.4 seconds PT International Ratio 1.0 ratio NA 09/24/2022 11:39 EDT SN - Preop - CTm Pt Ready for OR/Proced 09/24/2022 11:39 09/24/2022 11:38 EDT Antecubital Left 09/24/2022 20 gauge Peripheral IV Activity: Unsuccessful 09/24/2022 11:21 EDT SN - Preop - CTm Pt in SDS Room 09/24/2022 11:00 09/24/2022 11:10 EDT Ed-Safety, Fall Verbalizes/Nonverbally indicates understanding Individuals Taught Patient, Spouse Learning Readiness Willing to learn Barriers to Learning None evident Teaching Method Explanation, Printed materials Preferred Written Language Montenegrin Family/Caregiver Prefer Written Language Mont[place]in Preferred Spoken Language Mont[place]grin Family/Caregiver Prefer Spoken Language [place]in Surgical Site Infection Prevention SSI FAQ provided, Hand hygiene Pre Procedure/Surgery Education Appropriate expectations, Date/Time of procedure/surgery, NPO, Responsible p d driver for discharge Ed-Safety Verbalizes/Nonverbally indicates understanding 09/24/2022 11:06 EDT Height 162.6 cm Height in inches 64 inch(es) Admission Weight 115.3 kg Weight Lbs 253.7 lb [place] Body Weight 54.74 kg Admission Body Mass Index 43.61 m2 Temperature Temporal Artery 36.2 DegC Apical Heart Rate 89 bpm Respiratory Rate 18 br/min Systolic Blood Pressure 113 mmHg Diastolic Blood Pressure 79 mmHg Mean Arterial Pressure 90 mmHg Primary Pain Location Headache Primary Pain Intensity 9 Pain Scale Type 0-10 Pain scale Nail Bed Color [place] Capillary Refill < 2 seconds Heart Rhythm Regular All Lobes Breath Sounds Clear Oxygen Therapy Room air Oxygen Saturation 100 % Abdomen Description Non-distended, Soft Abdomen Palpation Non-Tender Bowel Sounds All Quadrants Present Urinary Elimination Voiding, no difficulties Skin Temperature Warm Skin Description [place], Normal for ethnicity Mucous Membrane Color [place] IV Present Present Neurological Symptoms Patient denies Characteristics of Speech Clear Level of Consciousness Alert Strength All Extremities Strong Tone All Extremities Normal Sensation All Extremities Intact Violence Risk Confused No Violence Risk Irritable No Violence Risk Boisterous No Violence Risk Verbal Threats No Violence Risk Physical Threats No Violence Risk Attacking Objects No Violence Risk Predictor Score 0 Orientation Oriented x 4 Allergies Yes Patient Dressed In Hospital gown Pre-op Preparation Glasses removed History & Physical Update On Chart Yes History & Physical On Chart Yes Obstructive Sleep Apnea Assess Completed Yes Belongings At Bedside Pt participated in reconciliation, Other: all belongings in pts room NPO Status Maintained Standard Safety ID band on, Safety level maintained Demonstrates Correct Call Light Use Yes Allergy Band on and Verified Yes Patient ID Band on and Verified Yes Last Fluid Intake 09/23/2022 20:30 Last Food Intake 09/23/2022 20:30 Last Void 09/24/2022 11:10 09/24/2022 11:04 EDT Sensory Deficits None Alcohol and Drug Use No Employee of Institutional Living No Health Care Employee No History of Exposure to TB No History of Positive Chest X-Ray for TB No History of Positive TB Skin Test No Homeless No Known Immunosuppression No Recent Immigrant No Resident of Institutional Living No Bloody Sputum No Fatigue No Fever No Loss of Appetite No Night Sweats No Persistent Cough > 3 Weeks No Weight Loss No Safety Brochure Information Reviewed Yes Cayden Pagan Video Viewed No Barriers to Learning None evident Teaching Method Explanation, Printed materials Teaching Evaluation Verbalizes/Nonverbally indicates understanding Discharge To, Anticipated Home independently Personal Devices, Patient Valuables Glasses Admission Note-Nursing Same Day Patient History (Modified) 09/23/2022 12:09 EDT Surgery Scheduled On Date/Time 09/24/2022 13:00 Patient Aware Date/Time Of Surgery Yes Arrival Time the Day of Surgery 09/24/2022 11:00 Patient Aware of Arrival Time Yes Pre-Op Patient Education NPO after midnight, No smoking after midnight, No makeup, No jewelry, Responsible Libertarian, Aware of surgery location, Pre-op education done, Patient instructed to take ordered medications SN - Preprocedure Comments Spoke with patient, Verbalizes/Nonverbally indicates understanding, Other: silvestre flores (Modified) Admission Note-Nursing Date\Time Correction . Assessment and Plan [place] [employer] of Anesthesiologists (ASA) physical status classification: Class III. Anesthetic Preoperative Plan Premedication: intravenous. Anesthetic technique: MAC. Induction: intravenously. Maintenance airway: etco2 . Postoperative pain management: Per surgeon. Risks discussed: nausea, vomiting, headache, sore throat, dental injury, hypotension, allergic reaction, serious complications. Informed consent: signed by patient. Notes: Extensive time was spent discussing with the patient the inherent risks of anesthesia including but not limited too sore throat, dental injuries to teeth and gums, corneal abrasions, risk of heart attack, stroke, end organ dysfunction, and . The patient is aware of these risks, accepts them and wishes to proceed with anesthesia. Benign intracranial htn s/p 126 lp this is number 127 per pt, gerd epilpyse took vimpat pseudotumorcerebri ptsd chronic low back pain 2/2 LPs chronic headaches obesity , pt denies needlephobia discussed anesthesia she states she predominately has a MAC anesthetic forthe procedures. Digitally Signed by TITI OSCAR DO on 09/24/2022 12:59 PM [facility] [id number] Instructions* Patient Instructions* Aliyah Abreu MD - 08/10/2022 8:43 AM EDT Will send a referral to [facility] for your intracranial hypertension. Closely monitor for any intracranial hypotension or any meningitis after lumbar puncture. documented in this [id number] History of Present illness Narrative* Aliyah Abreu MD - 08/10/2022 8:00 AM EDT Neurology Outpatient Consult [facility] [address] [place], [place] [id number] (phone)/[phone] (fax) Patient: Lexis Oakes Date of : 1985 Primary Care Provider: Yan Jasso DO Assessment/Plan: Patient with history of chronic intracranial hypertension symptoms back in 1999 was diagnosed in 2006. She tried but did not tolerate Lasix, Diamox, and topiramate. She also had a CASINO B[employer]ER shunt placed which got infected after a week. Three neurosurgeons in [place] did not recommend placing another shunt. She gets monthly lumbar puncture under anesthesia with pain management which helped decrease her symptoms specially her headache. She also use medical marijuana, nortriptyline, and Ultram for her headache. She has history of anxiety and depression. She has history of seizure described as absence seizure when she was in high school and developed generalized tonic-clonic seizure around 2009. She has been doing well with Vimpat 150 mg twice a day and medical marijuana. She was previously on gabapentin but developed tremors. Last seizure was reportedly May 2022 before that was 2019. Labs/Imaging/Ancillary test: Hemoglobin A1c is 5.1. MRV 2013 was unremarkable. 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 Impression: Intracranial hypertension Chronic tension type headaches Anxiety and depression Seizure disorder Suggestion: We will refer her to [facility] to continue her monthly therapeutic spinal tap under anesthesia as to help with her intracranial hypertension or explore any other new modalities to help with her symptoms. May continue current regimen for her seizures and intracranial hypertension. Closely monitor for any meningitis or intracranial hypotension with recurrent spinal taps. Diagnostic impression, plans, and suggestions were explained and discussed. Records from the referring physician were reviewed. Clinical imaging study/ labs/medical tests were ordered/reviewed. Indications, risk, complications, side effects and alternatives of medications/therapeutics were explained and discussed. Please monitor closely for any untoward side effects or complications of medications. Questions and concerns were addressed. Please call or contact us for any problems. This note was created in part using a speech-recognition software. Time Code: 46 minutes 1. Preparation for patient's visit (reviewing previous chart, current medical records, previous history, exam, tests, procedures, and medications) 2. Face to face encounter obtaining history from the patient/family/caregivers; performing evaluation and examination; discussing tests and procedure results, medications and therapeutic options, side effects and complications of medications and procedures. Ordering medications, tests, or procedures; referring and communicating with other physicians, healthcare professionals; counseling and education of the patient/family/caregiver; independently interpreting results (tests, labs, procedures, imaging) and communicating and explaining results to the patient/family/caregiver. 3. Coordination of care; preparing and printing discharge instruction and any educational material for the patient and caregivers. Documenting clinical information in the electronic and other health records. Reviewing OARRS as needed. Orders Placed This Encounter Ambulatory referral to Neurology acetaminophen (TYLENOL) 325 MG tablet ARIPiprazole (ABILIFY) 5 MG tablet calcium citrate 250 mg calcium Tab cholecalciferol, vitamin D3, 1,000 unit tablet DULoxetine (CYMBALTA) 60 MG capsule lacosamide (VIMPAT) 150 mg Tab LORazepam (ATIVAN) 0.5 MG tablet therapeutic multivitamin (THERAGRAN) tablet nortriptyline (PAMELOR) 75 MG capsule omeprazole (PRILOSEC) 20 MG capsule traMADoL (ULTRAM) 50 mg tablet Subjective (CC/HPI): Patient is a 37-year-old lady accompanied by her for neurological evaluation. Shewas referred because of intracranial hypertension. She developed headache symptoms back in 1999 andinitially diagnosed to have migraines. Her headaches are diffuse, pressure sensation and severe andhas been constant. There is occasional nausea but no vomiting, photophobia, or phonophobia. In 2006, she was noted to have papilledema and diagnosed to have intracranial hypertension. She tried medications like Diamox, Lasix, and Topamax but did not tolerate because of nausea, vomiting, frequent falls, and feeling like zombie. She underwent lumbar puncture which helped relieve some of the headache for at least 2 weeks. She has been undergoing monthly lumbar puncture for years. When she developed intracranial hypertension and needed a blood patch. She does the procedure under anesthesia. She has also use medical marijuana, Ultram, and nortriptyline for her headache. She also underwent [employer] shunt but developed an infection after weekend the shunt has to be removed. She later saw three neurosurgeons that did not suggest placing another shunt. The last time she does not have any headache was back in 1999. He underwent gastric bypass which caused her to lose weight but worsened her symptoms of intracranial hypertension. Patient with history of seizure described as absence seizure when she was in high school with transient unresponsiveness. In 2009, she developed her first generalized tonic-clonic seizure. She will have an aura of this vague sensation that something bad is can happen and become unresponsive. She will have tonic- clonic movement and symptoms resolving motion with occasional tongue biting incontinence. She was placed on Vimpat currently taking 150 mg twice a day 2. Together with medical marijuana the seizures is being controlled. Last seizure was May 2022 and previous to that was 2019. She was labeled to have nonepileptic seizures. She was once on gabapentin for her seizure which initially helped but developed tremors. She followed up with ophthalmology and occasionally she will have no papilledema. But her CSF pressure remains elevated. Past medical history include: Intracranial hypertension, chronic headaches, seizure, anxiety and depression. Social history: No alcohol, tobacco, or recreational drug use except for medical marijuana described above. Family history: Positive for headaches. ROS: All systems reviewed and negative except pertinent positives and negatives documented in the HPI and below. Objective: BP 129/85 (BP Location: Right arm, Patient Position: Sitting, BP Cuff Size: X- large Adult) Pulse 88 Resp 16 SpO2 99% Patient awake and alert. Patient is oriented. Attention and comprehension were intact. Behavior is appropriate. Follows simple commands. Speech is fluent and spontaneous. Language is intact. Pupils are 4 mm equally reactive to light. No ptosis, nystagmus, or gaze deviation. Extraocular muscles intact. Fundus was not visualized. Face is symmetrical. Hearing is grossly intact. Gross strength is intact with normal muscle tone and bulk. No pronator drift. No muscle fasciculations. No tremors or abnormal movements. Gait and station is stable. documented in this [id number] NoteORIGINAL EXAMINATION: DOPPLER EVALUATION OF THE PELVIS 07/29/2022 3:50 pm COMPARISON: None. HISTORY: ORDERING SYSTEM PROVIDED HISTORY: Reason for Exam: pain; suspect ovarian torsion or tubo-ovarian abscess FINDINGS: Transabdominal sonographic examination of the pelvis was performed. Transvaginal scanning was also performed. The uterus is surgically absent Right ovary: The right ovary measures 3.6 x 3.0 x 2.0 cm. There is positive arterial and venous Doppler flow and waveforms to the right ovary. No adnexal mass is seen. Left ovary: The left ovary measures 3.4 x 1.7 x 1.7 cm. There is positive arterial and venous Doppler flow and waveforms to the left ovary. There is demonstration of a 2.2 x 1.6 x 1.3 cm hemorrhagic cyst. There is no free fluid within the cul-de-sac. IMPRESSION: 2.2 cm left ovarian hemorrhagic cyst. Recommend follow-up ultrasound in 8-12 weeks to demonstrate resolution. No evidence of ovarian torsion. Interpreted by: Mynor Baez MD Preliminary Report By: Mynor Baez MD Electronically signed By Mynor Baez MD Dictated Date: 07/29/2022 4:04:11 PM Prelim Date: 07/29/2022 4:10:06 PM Sign Date: 07/29/2022 4:10:06 PM Ordering Provider: [facility] ([place])Evaluation note* Diagnosis Idiopathic intracranial hypertension- Primary Benign intracranial hypertension documented in this encounter [facility] note* Diagnosis Pseudotumor cerebri- Primary Benign intracranial hypertension documented in this encounter [facility] note* Diagnosis IIH (idiopathic intracranial hypertension)- Primary Benign intracranial hypertension Other localized visual field defect, bilateral Pulsatile tinnitus Unspecified tinnitus documented [facility]* Diagnosis Other localized visual field defect, bilateral- Primary documented in this encounter [facility]* Diagnosis IIH (idiopathic intracranial hypertension)- Primary Benign intracranial hypertension Pulsatile tinnitus Unspecified tinnitus Other localized visual field defect, bilateral Benign intracranial hypertension documented in this encounter [facility]* Diagnosis Pre-op evaluation- Primary Preoperative examination, unspecified IIH (idiopathic intracranial hypertension) Benign intracranial hypertension Intractable epilepsy without status epilepticus, unspecified epilepsy type (HCC) Gastroesophageal reflux disease, unspecified whether esophagitis present Major depressive disorder with single episode, remission status unspecified Anxiety Anxiety state, unspecified Morbid obesity (HCC) Morbid obesity Benign intracranial hypertension documented [facility] this [facility]* Diagnosis IIH (idiopathic intracranial hypertension)- Primary Benign intracranial hypertension documented in this [facility]* Diagnosis IIH (idiopathic intracranial hypertension)- Primary Benign intracranial hypertension Pre-procedure lab exam Pre-procedural laboratory examination IIH (idiopathic intracranial hypertension) Benign intracranial hypertension documented [facility]* Diagnosis IIH (idiopathic intracranial hypertension)- Primary Benign intracranial hypertension IIH (idiopathic intracranial hypertension) Benign intracranial hypertension IIH (idiopathic intracranial hypertension) Benign intracranial hypertension documented in this [facility]* Diagnosis Pre-op evaluation- Primary Preoperative examination, unspecified Intractable epilepsy without status epilepticus, unspecified epilepsy type (HCC) IIH (idiopathic intracranial hypertension) Benign intracranial hypertension Gastroesophageal reflux disease, unspecified whether esophagitis present Morbid obesity (HCC) Morbid obesity Difficult intravenous access Other specified conditions influencing health status IIH (idiopathic intracranial hypertension) Benign intracranial hypertension IIH (idiopathic intracranial hypertension) Benign intracranial hypertension documented in this [facility]* Diagnosis IIH (idiopathic intracranial hypertension)- Primary Benign intracranial hypertension History of intravascular stent placement IIH (idiopathic intracranial hypertension) Benign intracranial hypertension documented in this [facility]* Diagnosis Chronic primary headache- Primary documented in this [facility]* Diagnosis IIH (idiopathic intracranial hypertension)- Primary Benign intracranial hypertension Other localized visual field defect, bilateral Hyperglycemia Other abnormal glucose documented in this encounter [facility]* Diagnosis Intracranial hypertension- Primary Benign intracranial hypertension documented in this encounter [facility]* Diagnosis Preoperative examination- Primary Preoperative examination, unspecified Difficult intravenous access Other specified conditions influencing health status Idiopathic intracranial hypertension Benign intracranial hypertension Intractable epilepsy without status epilepticus, unspecified epilepsy type (HCC) Medical marijuana use Encounter for long-term (current) use of other medications Gastroesophageal reflux disease, unspecified whether esophagitis present Major depressive disorder with single episode, remission status unspecified Anxiety Anxiety state, unspecified Morbid obesity with BMI of 45.0-49.9, adult (HCC) Morbid obesity S/P gastric bypass Bariatric surgery status Intracranial hypertension Benign intracranial hypertension documented [facility] this [facility]* Diagnosis Exhausted vascular access- Primary Other specified circulatory system disorders documented in this encounter [facility]* Diagnosis IIH (idiopathic intracranial hypertension)- Primary Benign intracranial hypertension documented in this [facility]* Diagnosis History of penicillin allergy- Primary Personal history of allergy to penicillin Intracranial hypertension Benign intracranial hypertension Difficult intravenous access Other specified conditions influencing health status Gastroesophageal reflux disease, unspecified whether esophagitis present Morbid obesity (HCC) Morbid obesity Major depressive disorder with single episode, remission status unspecified S/P gastric bypass Bariatric surgery status Intractable epilepsy without status epilepticus, unspecified epilepsy type (HCC) IIH (idiopathic intracranial hypertension) Benign intracranial hypertension documented [facility]* Diagnosis IIH (idiopathic intracranial hypertension)- Primary Benign intracranial hypertension IIH (idiopathic intracranial hypertension) Benign intracranial [facility] IIH (idiopathic intracranial hypertension)- Primary Benign intracranial hypertension Other localized visual field defect, left [facility] Diagnosis Exhausted vascular access- Primary Other specified circulatory system disorders [facility] Diagnosis IIH (idiopathic intracranial hypertension)- Primary Benign intracranial hypertension documented [facility]* Diagnosis IIH (idiopathic intracranial hypertension)- Primary Benign intracranial hypertension Other localized visual field defect, left eye Pulsatile tinnitus Unspecified tinnitus documented in this [facility]* Diagnosis Pre-op evaluation- Primary Preoperative examination, unspecified Exhausted vascular access Other specified circulatory system disorders Difficult intravenous access Other specified conditions influencing health status Pre-operative examination- Primary Preoperative examination, unspecified Intractable epilepsy without status epilepticus, unspecified epilepsy type (HCC) S/P gastric bypass Bariatric surgery status Gastroesophageal reflux disease, unspecified whether esophagitis present Difficult intravenous access Other specified conditions influencing health status Morbid obesity with BMI of 45.0-49.9, adult (HCC) Morbid obesity Medical marijuana use Encounter for long-term (current) use of other medications IIH (idiopathic intracranial hypertension) Benign intracranial hypertension [facility] Diagnosis IIH (idiopathic intracranial hypertension)- Primary Benign intracranial hypertension [facility] Diagnosis IIH (idiopathic intracranial hypertension)- Primary Benign intracranial hypertension [facility] Diagnosis Pre-op evaluation- Primary Preoperative examination, unspecified Morbid obesity with BMI of 45.0-49.9, adult (HCC) Morbid obesity S/P gastric bypass Bariatric surgery status Gastroesophageal reflux disease, unspecified whether esophagitis present Difficult intravenous access Other specified conditions influencing health status Intractable epilepsy without status epilepticus, unspecified epilepsy type (HCC) IIH (idiopathic intracranial hypertension) Benign intracranial hypertension Anxiety Anxiety state, unspecified IIH (idiopathic intracranial hypertension) Benign intracranial hypertension [facility] Diagnosis IIH (idiopathic intracranial hypertension)- Primary Benign intracranial hypertension [facility] Diagnosis IIH (idiopathic intracranial hypertension)- Primary Benign intracranial hypertension Other localized visual field defect, bilateral History of papilledema Personal history of other disorders of nervous system and sense organs Headache disorder Headache [facility] Diagnosis IIH (idiopathic intracranial hypertension)- Primary Benign intracranial hypertension [facility]* Diagnosis Pre-op evaluation- Primary Preoperative examination, unspecified IIH (idiopathic intracranial hypertension) Benign intracranial hypertension Intractable epilepsy without status epilepticus, unspecified epilepsy type (HCC) Gastroesophageal reflux disease, unspecified whether esophagitis present Major depressive disorder with single episode, remission status unspecified Anxiety Anxiety state, unspecified Morbid obesity (HCC) Morbid obesity Pre-op evaluation- Primary Preoperative examination, unspecified Intractable epilepsy without status epilepticus, unspecified epilepsy type (HCC) IIH (idiopathic intracranial hypertension) Benign intracranial hypertension Gastroesophageal reflux disease, unspecified whether esophagitis present Morbid obesity (HCC) Morbid obesity Difficult intravenous access Other specified conditions influencing health status Pre-op evaluation- Primary Preoperative examination, unspecified History of penicillin allergy Personal history of allergy to penicillin Intracranial hypertension Benign intracranial hypertension Difficult intravenous access Other specified conditions influencing health status Gastroesophageal reflux disease, unspecified whether esophagitis present Morbid obesity (HCC) Morbid obesity Major depressive disorder with single episode, remission status unspecified S/P gastric bypass Bariatric surgery status Intractable epilepsy without status epilepticus, unspecified epilepsy type (HCC) Pre-op evaluation- Primary Preoperative examination, unspecified Intractable epilepsy without status epilepticus, unspecified epilepsy type (HCC) Difficult intravenous access Other specified conditions influencing health status Gastroesophageal reflux disease, unspecified whether esophagitis present Morbid obesity (HCC) Morbid obesity Pre-op evaluation- Primary Preoperative examination, unspecified Medical marijuana use Encounter for long-term (current) use of other medications Morbid obesity with BMI of 45.0-49.9, adult (HCC) Morbid obesity Difficult intravenous access Other specified conditions influencing health status Major depressive disorder with single episode, remission status unspecified Anxiety Anxiety state, unspecified Gastroesophageal reflux disease, unspecified whether esophagitis present Intractable epilepsy without status epilepticus, unspecified epilepsy type (HCC) Pre-operative examination- Primary Preoperative examination, unspecified Intractable epilepsy without status epilepticus, unspecified epilepsy type (HCC) S/P gastric bypass Bariatric surgery status Gastroesophageal reflux disease, unspecified whether esophagitis present Difficult intravenous access Other specified conditions influencing health status Morbid obesity with BMI of 45.0-49.9, adult (HCC) Morbid obesity Medical marijuana use Encounter for long-term (current) use of other medications Pre-op evaluation- Primary Preoperative examination, unspecified Morbid obesity with BMI of 45.0-49.9, adult (HCC) Morbid obesity S/P gastric bypass Bariatric surgery status Gastroesophageal reflux disease, unspecified whether esophagitis present Difficult intravenous access Other specified conditions influencing health status Intractable epilepsy without status epilepticus, unspecified epilepsy type (HCC) IIH (idiopathic intracranial hypertension) Benign intracranial hypertension Anxiety Anxiety state, unspecified IIH (idiopathic intracranial hypertension)- Primary Benign intracranial hypertension History of papilledema Personal history of other disorders of nervous system and sense organs Headache disorder [facility]ache [facility] Diagnosis Pre-op evaluation- Primary Preoperative examination, unspecified IIH (idiopathic intracranial hypertension) Benign intracranial hypertension Intractable epilepsy without status epilepticus, unspecified epilepsy type (HCC) Gastroesophageal reflux disease, unspecified whether esophagitis present Major depressive disorder with single episode, remission status unspecified Anxiety Anxiety state, unspecified Morbid obesity (HCC) Morbid obesity Pre-op evaluation- Primary Preoperative examination, unspecified Intractable epilepsy without status epilepticus, unspecified epilepsy type (HCC) IIH (idiopathic intracranial hypertension) Benign intracranial hypertension Gastroesophageal reflux disease, unspecified whether esophagitis present Morbid obesity (HCC) Morbid obesity Difficult intravenous access Other specified conditions influencing health status Pre-op evaluation- Primary Preoperative examination, unspecified History of penicillin allergy Personal history of allergy to penicillin Intracranial hypertension Benign intracranial hypertension Difficult intravenous access Other specified conditions influencing health status Gastroesophageal reflux disease, unspecified whether esophagitis present Morbid obesity (HCC) Morbid obesity Major depressive disorder with single episode, remission status unspecified S/P gastric bypass Bariatric surgery status Intractable epilepsy without status epilepticus, unspecified epilepsy type (HCC) Pre-op evaluation- Primary Preoperative examination, unspecified Intractable epilepsy without status epilepticus, unspecified epilepsy type (HCC) Difficult intravenous access Other specified conditions influencing health status Gastroesophageal reflux disease, unspecified whether esophagitis present Morbid obesity (HCC) Morbid obesity Pre-op evaluation- Primary Preoperative examination, unspecified Medical marijuana use Encounter for long-term (current) use of other medications Morbid obesity with BMI of 45.0-49.9, adult (HCC) Morbid obesity Difficult intravenous access Other specified conditions influencing health status Major depressive disorder with single episode, remission status unspecified Anxiety Anxiety state, unspecified Gastroesophageal reflux disease, unspecified whether esophagitis present Intractable epilepsy without status epilepticus, unspecified epilepsy type (HCC) Pre-operative examination- Primary Preoperative examination, unspecified Intractable epilepsy without status epilepticus, unspecified epilepsy type (HCC) S/P gastric bypass Bariatric surgery status Gastroesophageal reflux disease, unspecified whether esophagitis present Difficult intravenous access Other specified conditions influencing health status Morbid obesity with BMI of 45.0-49.9, adult (HCC) Morbid obesity Medical marijuana use Encounter for long-term (current) use of other medications Pre-op evaluation- Primary Preoperative examination, unspecified Morbid obesity with BMI of 45.0-49.9, adult (HCC) Morbid obesity S/P gastric bypass Bariatric surgery status Gastroesophageal reflux disease, unspecified whether esophagitis present Difficult intravenous access Other specified conditions influencing health status Intractable epilepsy without status epilepticus, unspecified epilepsy type (HCC) IIH (idiopathic intracranial hypertension) Benign intracranial hypertension Anxiety Anxiety state, unspecified IIH (idiopathic intracranial hypertension)- Primary Benign intracranial hypertension documented [facility]* Diagnosis Pre-op evaluation- Primary Preoperative examination, unspecified IIH (idiopathic intracranial hypertension) Benign intracranial hypertension Intractable epilepsy without status epilepticus, unspecified epilepsy type (HCC) Gastroesophageal reflux disease, unspecified whether esophagitis present Major depressive disorder with single episode, remission status unspecified Anxiety Anxiety state, unspecified Morbid obesity (HCC) Morbid obesity Pre-op evaluation- Primary Preoperative examination, unspecified Intractable epilepsy without status epilepticus, unspecified epilepsy type (HCC) IIH (idiopathic intracranial hypertension) Benign intracranial hypertension Gastroesophageal reflux disease, unspecified whether esophagitis present Morbid obesity (HCC) Morbid obesity Difficult intravenous access Other specified conditions influencing health status Pre-op evaluation- Primary Preoperative examination, unspecified History of penicillin allergy Personal history of allergy to penicillin Intracranial hypertension Benign intracranial hypertension Difficult intravenous access Other specified conditions influencing health status Gastroesophageal reflux disease, unspecified whether esophagitis present Morbid obesity (HCC) Morbid obesity Major depressive disorder with single episode, remission status unspecified S/P gastric bypass Bariatric surgery status Intractable epilepsy without status epilepticus, unspecified epilepsy type (HCC) Pre-op evaluation- Primary Preoperative examination, unspecified Intractable epilepsy without status epilepticus, unspecified epilepsy type (HCC) Difficult intravenous access Other specified conditions influencing health status Gastroesophageal reflux disease, unspecified whether esophagitis present Morbid obesity (HCC) Morbid obesity Pre-op evaluation- Primary Preoperative examination, unspecified Medical marijuana use Encounter for long-term (current) use of other medications Morbid obesity with BMI of 45.0-49.9, adult (HCC) Morbid obesity Difficult intravenous access Other specified conditions influencing health status Major depressive disorder with single episode, remission status unspecified Anxiety Anxiety state, unspecified Gastroesophageal reflux disease, unspecified whether esophagitis present Intractable epilepsy without status epilepticus, unspecified epilepsy type (HCC) Pre-operative examination- Primary Preoperative examination, unspecified Intractable epilepsy without status epilepticus, unspecified epilepsy type (HCC) S/P gastric bypass Bariatric surgery status Gastroesophageal reflux disease, unspecified whether esophagitis present Difficult intravenous access Other specified conditions influencing health status Morbid obesity with BMI of 45.0-49.9, adult (HCC) Morbid obesity Medical marijuana use Encounter for long-term (current) use of other medications Pre-op evaluation- Primary Preoperative examination, unspecified Morbid obesity with BMI of 45.0-49.9, adult (HCC) Morbid obesity S/P gastric bypass Bariatric surgery status Gastroesophageal reflux disease, unspecified whether esophagitis present Difficult intravenous access Other specified conditions influencing health status Intractable epilepsy without status epilepticus, unspecified epilepsy type (HCC) IIH (idiopathic intracranial hypertension) Benign intracranial hypertension Anxiety Anxiety state, unspecified IIH (idiopathic intracranial hypertension)- Primary Benign intracranial hypertension IIH (idiopathic intracranial hypertension) Benign intracranial hypertension [facility]* Diagnosis Pre-op evaluation- Primary Preoperative examination, unspecified IIH (idiopathic intracranial hypertension) Benign intracranial hypertension Intractable epilepsy without status epilepticus, unspecified epilepsy type (HCC) Gastroesophageal reflux disease, unspecified whether esophagitis present Major depressive disorder with single episode, remission status unspecified Anxiety Anxiety state, unspecified Morbid obesity (HCC) Morbid obesity Pre-op evaluation- Primary Preoperative examination, unspecified Intractable epilepsy without status epilepticus, unspecified epilepsy type (HCC) IIH (idiopathic intracranial hypertension) Benign intracranial hypertension Gastroesophageal reflux disease, unspecified whether esophagitis present Morbid obesity (HCC) Morbid obesity Difficult intravenous access Other specified conditions influencing health status Pre-op evaluation- Primary Preoperative examination, unspecified History of penicillin allergy Personal history of allergy to penicillin Intracranial hypertension Benign intracranial hypertension Difficult intravenous access Other specified conditions influencing health status Gastroesophageal reflux disease, unspecified whether esophagitis present Morbid obesity (HCC) Morbid obesity Major depressive disorder with single episode, remission status unspecified S/P gastric bypass Bariatric surgery status Intractable epilepsy without status epilepticus, unspecified epilepsy type (HCC) Pre-op evaluation- Primary Preoperative examination, unspecified Intractable epilepsy without status epilepticus, unspecified epilepsy type (HCC) Difficult intravenous access Other specified conditions influencing health status Gastroesophageal reflux disease, unspecified whether esophagitis present Morbid obesity (HCC) Morbid obesity Pre-op evaluation- Primary Preoperative examination, unspecified Medical marijuana use Encounter for long-term (current) use of other medications Morbid obesity with BMI of 45.0-49.9, adult (HCC) Morbid obesity Difficult intravenous access Other specified conditions influencing health status Major depressive disorder with single episode, remission status unspecified Anxiety Anxiety state, unspecified Gastroesophageal reflux disease, unspecified whether esophagitis present Intractable epilepsy without status epilepticus, unspecified epilepsy type (HCC) Pre-operative examination- Primary Preoperative examination, unspecified Intractable epilepsy without status epilepticus, unspecified epilepsy type (HCC) S/P gastric bypass Bariatric surgery status Gastroesophageal reflux disease, unspecified whether esophagitis present Difficult intravenous access Other specified conditions influencing health status Morbid obesity with BMI of 45.0-49.9, adult (HCC) Morbid obesity Medical marijuana use Encounter for long-term (current) use of other medications Pre-op evaluation- Primary Preoperative examination, unspecified Morbid obesity with BMI of 45.0-49.9, adult (HCC) Morbid obesity S/P gastric bypass Bariatric surgery status Gastroesophageal reflux disease, unspecified whether esophagitis present Difficult intravenous access Other specified conditions influencing health status Intractable epilepsy without status epilepticus, unspecified epilepsy type (HCC) IIH (idiopathic intracranial hypertension) Benign intracranial hypertension Anxiety Anxiety state, unspecified IIH (idiopathic intracranial hypertension)- Primary Benign intracranial hypertension History of papilledema Personal history of other disorders of nervous system and sense organs Other localized visual field defect, bilateral IIH (idiopathic intracranial hypertension) Benign intracranial hypertension documented [facility]* Diagnosis Pre-op evaluation- Primary Preoperative examination, unspecified IIH (idiopathic intracranial hypertension) Benign intracranial hypertension Intractable epilepsy without status epilepticus, unspecified epilepsy type (HCC) Gastroesophageal reflux disease, unspecified whether esophagitis present Major depressive disorder with single episode, remission status unspecified Anxiety Anxiety state, unspecified Morbid obesity (HCC) Morbid obesity Pre-op evaluation- Primary Preoperative examination, unspecified Intractable epilepsy without status epilepticus, unspecified epilepsy type (HCC) IIH (idiopathic intracranial hypertension) Benign intracranial hypertension Gastroesophageal reflux disease, unspecified whether esophagitis present Morbid obesity (HCC) Morbid obesity Difficult intravenous access Other specified conditions influencing health status Pre-op evaluation- Primary Preoperative examination, unspecified History of penicillin allergy Personal history of allergy to penicillin Intracranial hypertension Benign intracranial hypertension Difficult intravenous access Other specified conditions influencing health status Gastroesophageal reflux disease, unspecified whether esophagitis present Morbid obesity (HCC) Morbid obesity Major depressive disorder with single episode, remission status unspecified S/P gastric bypass Bariatric surgery status Intractable epilepsy without status epilepticus, unspecified epilepsy type (HCC) Pre-op evaluation- Primary Preoperative examination, unspecified Intractable epilepsy without status epilepticus, unspecified epilepsy type (HCC) Difficult intravenous access Other specified conditions influencing health status Gastroesophageal reflux disease, unspecified whether esophagitis present Morbid obesity (HCC) Morbid obesity Pre-op evaluation- Primary Preoperative examination, unspecified Medical marijuana use Encounter for long-term (current) use of other medications Morbid obesity with BMI of 45.0-49.9, adult (HCC) Morbid obesity Difficult intravenous access Other specified conditions influencing health status Major depressive disorder with single episode, remission status unspecified Anxiety Anxiety state, unspecified Gastroesophageal reflux disease, unspecified whether esophagitis present Intractable epilepsy without status epilepticus, unspecified epilepsy type ([facility]) Pre-operative examination- Primary Preoperative examination, unspecified Intractable epilepsy without status epilepticus, unspecified epilepsy type ([facility]) S/P gastric bypass Bariatric surgery status Gastroesophageal reflux disease, unspecified whether esophagitis present Difficult intravenous access Other specified conditions influencing health status Morbid obesity with BMI of 45.0-49.9, adult ([facility]) Morbid obesity Medical marijuana use Encounter for long-term (current) use of other medications Pre-op evaluation- Primary Preoperative examination, unspecified Morbid obesity with BMI of 45.0-49.9, adult ([facility]) Morbid obesity S/P gastric bypass Bariatric surgery status Gastroesophageal reflux disease, unspecified whether esophagitis present Difficult intravenous access Other specified conditions influencing health status Intractable epilepsy without status epilepticus, unspecified epilepsy type ([facility]) IIH (idiopathic intracranial hypertension) Benign intracranial hypertension Anxiety Anxiety state, unspecified Pre-op evaluation- Primary Preoperative examination, unspecified IIH (idiopathic intracranial hypertension) Benign intracranial hypertension Difficult intravenous access Other specified conditions influencing health status S/P gastric bypass Bariatric surgery status Gastroesophageal reflux disease, unspecified whether esophagitis present Anxiety Anxiety state, unspecified Medical marijuana use Encounter for long-term (current) use of other medications Morbid obesity with BMI of 45.0-49.9, adult ([facility]) Morbid obesity IIH (idiopathic intracranial hypertension) Benign intracranial hypertension * Assessment & Plan Note - Saima Swanson APRN.S[employer] - 10/04/2024 7:28 AM EST Associated Problem(s): Morbid obesity with BMI of 45.0-49.9, adult (HCC) Assessment: BMI=45 * Assessment & Plan Note - Saima Swanson APRN.CNP - 10/04/2024 7:27 AM EST Associated Problem(s): Medical marijuana use Assessment: uses daily, last used yesterday * Assessment & Plan Note - Saima Swanson APRN.CNP - 10/04/2024 7:27 AM EST Associated Problem(s): Anxiety Assessment: controlled with meds per PCP, no current therapist * Assessment & Plan Note - Saima Swanson APRN.CNP - 10/04/2024 7:27 AM EST Associated Problem(s): Major depression, single episode Assessment: controlled with meds per PCP, no current therapist * Assessment & Plan Note - Saima Swanson APRN.CNP - 10/04/2024 7:27 AM EST Associated Problem(s): Gastroesophageal reflux disease Assessment: controlled with Omeprazole * Assessment & Plan Note - Saima Swanson APRN.CNP - 10/04/2024 7:26 AM EST Associated Problem(s): S/P gastric bypass Assessment: 2013 * Assessment & Plan Note - Saima Swanson APRN.CNP - 10/04/2024 7:26 AM EST Associated Problem(s): Difficult intravenous access Assessment: pt has had multiple midlines and ultrasound guided IV in the past * Assessment & Plan Note - Saima Swanson APRN.CNP - 10/04/2024 7:25 AM EST Associated Problem(s): IIH (idiopathic intracranial hypertension) Assessment: spinal puncture planned, last one last month * Assessment & Plan Note - Saima Swanson APRN.CNP - 10/04/2024 7:25 AM EST Associated Problem(s): Epilepsy (HCC) Assessment: controlled with meds, last seizure 02/[address] body[address] Thompson neurologist in [place] [facility] Pre-op evaluation- Primary Preoperative examination, unspecified IIH (idiopathic intracranial hypertension) Benign intracranial hypertension Intractable epilepsy without status epilepticus, unspecified epilepsy type (HCC) Gastroesophageal reflux disease, unspecified whether esophagitis present Major depressive disorder with single episode, remission status unspecified Anxiety Anxiety state, unspecified Morbid obesity (HCC) Morbid obesity Pre-op evaluation- Primary Preoperative examination, unspecified Intractable epilepsy without status epilepticus, unspecified epilepsy type (HCC) IIH (idiopathic intracranial hypertension) Benign intracranial hypertension Gastroesophageal reflux disease, unspecified whether esophagitis present Morbid obesity (HCC) Morbid obesity Difficult intravenous access Other specified conditions influencing health status Pre-op evaluation- Primary Preoperative examination, unspecified History of penicillin allergy Personal history of allergy to penicillin Intracranial hypertension Benign intracranial hypertension Difficult intravenous access Other specified conditions influencing health status Gastroesophageal reflux disease, unspecified whether esophagitis present Morbid obesity (HCC) Morbid obesity Major depressive disorder with single episode, remission status unspecified S/P gastric bypass Bariatric surgery status Intractable epilepsy without status epilepticus, unspecified epilepsy type (HCC) Pre-op evaluation- Primary Preoperative examination, unspecified Intractable epilepsy without status epilepticus, unspecified epilepsy type ([facility]) Difficult intravenous access Other specified conditions influencing health status Gastroesophageal reflux disease, unspecified whether esophagitis present Morbid obesity ([facility]) Morbid obesity Pre-op evaluation- Primary Preoperative examination, unspecified Medical marijuana use Encounter for long-term (current) use of other medications Morbid obesity with BMI of 45.0-49.9, adult ([facility]) Morbid obesity Difficult intravenous access Other specified conditions influencing health status Major depressive disorder with single episode, remission status unspecified Anxiety Anxiety state, unspecified Gastroesophageal reflux disease, unspecified whether esophagitis present Intractable epilepsy without status epilepticus, unspecified epilepsy type ([facility]) Pre-operative examination- Primary Preoperative examination, unspecified Intractable epilepsy without status epilepticus, unspecified epilepsy type ([facility]) S/P gastric bypass Bariatric surgery status Gastroesophageal reflux disease, unspecified whether esophagitis present Difficult intravenous access Other specified conditions influencing health status Morbid obesity with BMI of 45.0-49.9, adult ([facility]) Morbid obesity Medical marijuana use Encounter for long-term (current) use of other medications Pre-op evaluation- Primary Preoperative examination, unspecified Morbid obesity with BMI of 45.0-49.9, adult ([facility]) Morbid obesity S/P gastric bypass Bariatric surgery status Gastroesophageal reflux disease, unspecified whether esophagitis present Difficult intravenous access Other specified conditions influencing health status Intractable epilepsy without status epilepticus, unspecified epilepsy type ([facility]) IIH (idiopathic intracranial hypertension) Benign intracranial hypertension Anxiety Anxiety state, unspecified Pre-op evaluation- Primary Preoperative examination, unspecified IIH (idiopathic intracranial hypertension) Benign intracranial hypertension Difficult intravenous access Other specified conditions influencing health status S/P gastric bypass Bariatric surgery status Gastroesophageal reflux disease, unspecified whether esophagitis present Anxiety Anxiety state, unspecified Medical marijuana use Encounter for long-term (current) use of other medications Morbid obesity with BMI of 45.0-49.9, adult ([facility]) Morbid obesity IIH (idiopathic intracranial hypertension)- Primary Benign intracranial hypertension Intractable epilepsy without status epilepticus, unspecified epilepsy type ([facility])- Primary IIH (idiopathic intracranial hypertension) Benign intracranial hypertension Difficult intravenous access Other specified conditions influencing health status JACK (obstructive sleep apnea) Obstructive sleep apnea (adult) (pediatric) Gastroesophageal reflux disease, unspecified whether esophagitis present S/P gastric bypass Bariatric surgery status Major depressive disorder with single episode, remission status unspecified Medical marijuana use Encounter for long-term (current) use of other medications Anxiety Anxiety state, unspecified IIH (idiopathic intracranial hypertension) Benign intracranial hypertension [facility] Diagnosis Pre-op evaluation- Primary Preoperative examination, unspecified IIH (idiopathic intracranial hypertension) Benign intracranial hypertension Intractable epilepsy without status epilepticus, unspecified epilepsy type (HCC) Gastroesophageal reflux disease, unspecified whether esophagitis present Major depressive disorder with single episode, remission status unspecified Anxiety Anxiety state, unspecified Morbid obesity (HCC) Morbid obesity Pre-op evaluation- Primary Preoperative examination, unspecified Intractable epilepsy without status epilepticus, unspecified epilepsy type (HCC) IIH (idiopathic intracranial hypertension) Benign intracranial hypertension Gastroesophageal reflux disease, unspecified whether esophagitis present Morbid obesity (HCC) Morbid obesity Difficult intravenous access Other specified conditions influencing health status Pre-op evaluation- Primary Preoperative examination, unspecified History of penicillin allergy Personal history of allergy to penicillin Intracranial hypertension Benign intracranial hypertension Difficult intravenous access Other specified conditions influencing health status Gastroesophageal reflux disease, unspecified whether esophagitis present Morbid obesity (HCC) Morbid obesity Major depressive disorder with single episode, remission status unspecified S/P gastric bypass Bariatric surgery status Intractable epilepsy without status epilepticus, unspecified epilepsy type (HCC) Pre-op evaluation- Primary Preoperative examination, unspecified Intractable epilepsy without status epilepticus, unspecified epilepsy type (HCC) Difficult intravenous access Other specified conditions influencing health status Gastroesophageal reflux disease, unspecified whether esophagitis present Morbid obesity (HCC) Morbid obesity Pre-op evaluation- Primary Preoperative examination, unspecified Medical marijuana use Encounter for long-term (current) use of other medications Morbid obesity with BMI of 45.0-49.9, adult (HCC) Morbid obesity Difficult intravenous access Other specified conditions influencing health status Major depressive disorder with single episode, remission status unspecified Anxiety Anxiety state, unspecified Gastroesophageal reflux disease, unspecified whether esophagitis present Intractable epilepsy without status epilepticus, unspecified epilepsy type (HCC) Pre-operative examination- Primary Preoperative examination, unspecified Intractable epilepsy without status epilepticus, unspecified epilepsy type (HCC) S/P gastric bypass Bariatric surgery status Gastroesophageal reflux disease, unspecified whether esophagitis present Difficult intravenous access Other specified conditions influencing health status Morbid obesity with BMI of 45.0-49.9, adult (HCC) Morbid obesity Medical marijuana use Encounter for long-term (current) use of other medications Pre-op evaluation- Primary Preoperative examination, unspecified Morbid obesity with BMI of 45.0-49.9, adult (HCC) Morbid obesity S/P gastric bypass Bariatric surgery status Gastroesophageal reflux disease, unspecified whether esophagitis present Difficult intravenous access Other specified conditions influencing health status Intractable epilepsy without status epilepticus, unspecified epilepsy type (HCC) IIH (idiopathic intracranial hypertension) Benign intracranial hypertension Anxiety Anxiety state, unspecified Pre-op evaluation- Primary Preoperative examination, unspecified IIH (idiopathic intracranial hypertension) Benign intracranial hypertension Difficult intravenous access Other specified conditions influencing health status S/P gastric bypass Bariatric surgery status Gastroesophageal reflux disease, unspecified whether esophagitis present Anxiety Anxiety state, unspecified Medical marijuana use Encounter for long-term (current) use of other medications Morbid obesity with BMI of 45.0-49.9, adult (HCC) Morbid obesity Intractable epilepsy without status epilepticus, unspecified epilepsy type (HCC)- Primary IIH (idiopathic intracranial hypertension) Benign intracranial hypertension Difficult intravenous access Other specified conditions influencing health status JACK (obstructive sleep apnea) Obstructive sleep apnea (adult) (pediatric) Gastroesophageal reflux disease, unspecified whether esophagitis present S/P gastric bypass Bariatric surgery status Major depressive disorder with single episode, remission status unspecified Medical marijuana use Encounter for long-term (current) use of other medications Anxiety Anxiety state, unspecified Morbid obesity (HCC) Morbid obesity IIH (idiopathic intracranial hypertension) Benign intracranial hypertension * Assessment & Plan Note - Sarah Murray APRN.CNP - 10/27/2024 8:19 AM EST Associated Problem(s): Morbid obesity (HCC) Assessment: Body mass index is 44.46 kg/m . * Assessment & Plan Note - Sarah Murray APRN.CNP - 10/27/2024 8:19 AM EST Associated Problem(s): Anxiety Assessment: Symptoms stable on rx. * Assessment & Plan Note - Sarah Murray APRN.CNP - 10/27/2024 8:18 AM EST Associated Problem(s): Major depression, single episode Assessment: Symptoms stable on rx. * Assessment & Plan Note - Sarah Murray APRN.CNP - 10/27/2024 8:18 AM EST Associated Problem(s): S/P gastric bypass Assessment: 2013 * Assessment & Plan Note - Sarah Murray APRN.CNP - 10/27/2024 8:18 AM EST Associated Problem(s): Gastroesophageal reflux disease Assessment: Symptoms stable on rx. * Assessment & Plan Note - Sarah Murray APRN.CNP - 10/27/2024 8:18 AM EST Associated Problem(s): JACK (obstructive sleep apnea) Assessment: Patient denies diagnosis, reports PSG 20 years ago was negative. * Assessment & Plan Note - Sarah Murray APRN.CNP - 10/27/2024 8:17 AM EST Associated Problem(s): Difficult intravenous access Assessment: Per patient, requires US for PIV. * Assessment & Plan Note - Sarah Murray APRN.CNP - 10/27/2024 8:17 AM EST Associated Problem(s): IIH (idiopathic intracranial hypertension) Assessment: see HPI * Assessment & Plan Note - Sarah Murray APRN.CNP - 10/27/2024 8:17 AM EST Associated Problem(s): Medical marijuana use Assessment: Daily vape user. * Assessment & Plan Note - Sarah Murray APRN.CNP - 10/27/2024 8:16 AM EST Associated Problem(s): Epilepsy (HCC) Assessment: Following with Dr. Thompson with [facility] at [facility], [place] 4 months ago. Last seizure 18 months ago, well controlled on rx and medical marijuana. [facility] Diagnosis Pre-op evaluation- Primary Preoperative examination, unspecified IIH (idiopathic intracranial hypertension) Benign intracranial hypertension Intractable epilepsy without status epilepticus, unspecified epilepsy type (HCC) Gastroesophageal reflux disease, unspecified whether esophagitis present Major depressive disorder with single episode, remission status unspecified Anxiety Anxiety state, unspecified Morbid obesity (HCC) Morbid obesity Pre-op evaluation- Primary Preoperative examination, unspecified Intractable epilepsy without status epilepticus, unspecified epilepsy type (HCC) IIH (idiopathic intracranial hypertension) Benign intracranial hypertension Gastroesophageal reflux disease, unspecified whether esophagitis present Morbid obesity (HCC) Morbid obesity Difficult intravenous access Other specified conditions influencing health status Pre-op evaluation- Primary Preoperative examination, unspecified History of penicillin allergy Personal history of allergy to penicillin Intracranial hypertension Benign intracranial hypertension Difficult intravenous access Other specified conditions influencing health status Gastroesophageal reflux disease, unspecified whether esophagitis present Morbid obesity (HCC) Morbid obesity Major depressive disorder with single episode, remission status unspecified S/P gastric bypass Bariatric surgery status Intractable epilepsy without status epilepticus, unspecified epilepsy type (HCC) Pre-op evaluation- Primary Preoperative examination, unspecified Intractable epilepsy without status epilepticus, unspecified epilepsy type (HCC) Difficult intravenous access Other specified conditions influencing health status Gastroesophageal reflux disease, unspecified whether esophagitis present Morbid obesity (HCC) Morbid obesity Pre-op evaluation- Primary Preoperative examination, unspecified Medical marijuana use Encounter for long-term (current) use of other medications Morbid obesity with BMI of 45.0-49.9, adult (HCC) Morbid obesity Difficult intravenous access Other specified conditions influencing health status Major depressive disorder with single episode, remission status unspecified Anxiety Anxiety state, unspecified Gastroesophageal reflux disease, unspecified whether esophagitis present Intractable epilepsy without status epilepticus, unspecified epilepsy type [facility] [facility]) Pre-operative examination- Primary Preoperative examination, unspecified Intractable epilepsy without status epilepticus, unspecified epilepsy type ([facility]) S/P gastric bypass Bariatric surgery status Gastroesophageal reflux disease, unspecified whether esophagitis present Difficult intravenous access Other specified conditions influencing health status Morbid obesity with BMI of 45.0-49.9, adult ([facility]) Morbid obesity Medical marijuana use Encounter for long-term (current) use of other medications Pre-op evaluation- Primary Preoperative examination, unspecified Morbid obesity with BMI of 45.0-49.9, adult ([facility]) Morbid obesity S/P gastric bypass Bariatric surgery status Gastroesophageal reflux disease, unspecified whether esophagitis present Difficult intravenous access Other specified conditions influencing health status Intractable epilepsy without status epilepticus, unspecified epilepsy type ([facility]) IIH (idiopathic intracranial hypertension) Benign intracranial hypertension Anxiety Anxiety state, unspecified Pre-op evaluation- Primary Preoperative examination, unspecified IIH (idiopathic intracranial hypertension) Benign intracranial hypertension Difficult intravenous access Other specified conditions influencing health status S/P gastric bypass Bariatric surgery status Gastroesophageal reflux disease, unspecified whether esophagitis present Anxiety Anxiety state, unspecified Medical marijuana use Encounter for long-term (current) use of other medications Morbid obesity with BMI of 45.0-49.9, adult ([facility]) Morbid obesity Intractable epilepsy without status epilepticus, unspecified epilepsy type ([facility])- Primary IIH (idiopathic intracranial hypertension) Benign intracranial hypertension Difficult intravenous access Other specified conditions influencing health status JACK (obstructive sleep apnea) Obstructive sleep apnea (adult) (pediatric) Gastroesophageal reflux disease, unspecified whether esophagitis present S/P gastric bypass Bariatric surgery status Major depressive disorder with single episode, remission status unspecified Medical marijuana use Encounter for long-term (current) use of other medications Anxiety Anxiety state, unspecified Morbid obesity ([facility]) Morbid obesity IIH (idiopathic intracranial hypertension)- Primary Benign intracranial hypertension IIH (idiopathic intracranial hypertension) Benign intracranial hypertension [facility] Pre-op evaluation- Primary Preoperative examination, unspecified IIH (idiopathic intracranial hypertension) Benign intracranial hypertension Intractable epilepsy without status epilepticus, unspecified epilepsy type (HCC) Gastroesophageal reflux disease, unspecified whether esophagitis present Major depressive disorder with single episode, remission status unspecified Anxiety Anxiety state, unspecified Morbid obesity (HCC) Morbid obesity Pre-op evaluation- Primary Preoperative examination, unspecified Intractable epilepsy without status epilepticus, unspecified epilepsy type (HCC) IIH (idiopathic intracranial hypertension) Benign intracranial hypertension Gastroesophageal reflux disease, unspecified whether esophagitis present Morbid obesity (HCC) Morbid obesity Difficult intravenous access Other specified conditions influencing health status Pre-op evaluation- Primary Preoperative examination, unspecified History of penicillin allergy Personal history of allergy to penicillin Intracranial hypertension Benign intracranial hypertension Difficult intravenous access Other specified conditions influencing health status Gastroesophageal reflux disease, unspecified whether esophagitis present Morbid obesity (HCC) Morbid obesity Major depressive disorder with single episode, remission status unspecified S/P gastric bypass Bariatric surgery status Intractable epilepsy without status epilepticus, unspecified epilepsy type (HCC) Pre-op evaluation- Primary Preoperative examination, unspecified Intractable epilepsy without status epilepticus, unspecified epilepsy type (HCC) Difficult intravenous access Other specified conditions influencing health status Gastroesophageal reflux disease, unspecified whether esophagitis present Morbid obesity (HCC) Morbid obesity Pre-op evaluation- Primary Preoperative examination, unspecified Medical marijuana use Encounter for long-term (current) use of other medications Morbid obesity with BMI of 45.0-49.9, adult (HCC) Morbid obesity Difficult intravenous access Other specified conditions influencing health status Major depressive disorder with single episode, remission status unspecified Anxiety Anxiety state, unspecified Gastroesophageal reflux disease, unspecified whether esophagitis present Intractable epilepsy without status epilepticus, unspecified epilepsy type (HCC) Pre-operative examination- Primary Preoperative examination, unspecified Intractable epilepsy without status epilepticus, unspecified epilepsy type (HCC) S/P gastric bypass Bariatric surgery status Gastroesophageal reflux disease, unspecified whether esophagitis present Difficult intravenous access Other specified conditions influencing health status Morbid obesity with BMI of 45.0-49.9, adult (HCC) Morbid obesity Medical marijuana use Encounter for long-term (current) use of other medications Pre-op evaluation- Primary Preoperative examination, unspecified Morbid obesity with BMI of 45.0-49.9, adult (HCC) Morbid obesity S/P gastric bypass Bariatric surgery status Gastroesophageal reflux disease, unspecified whether esophagitis present Difficult intravenous access Other specified conditions influencing health status Intractable epilepsy without status epilepticus, unspecified epilepsy type (HCC) IIH (idiopathic intracranial hypertension) Benign intracranial hypertension Anxiety Anxiety state, unspecified Pre-op evaluation- Primary Preoperative examination, unspecified IIH (idiopathic intracranial hypertension) Benign intracranial hypertension Difficult intravenous access Other specified conditions influencing health status S/P gastric bypass Bariatric surgery status Gastroesophageal reflux disease, unspecified whether esophagitis present Anxiety Anxiety state, unspecified Medical marijuana use Encounter for long-term (current) use of other medications Morbid obesity with BMI of 45.0-49.9, adult (HCC) Morbid obesity Intractable epilepsy without status epilepticus, unspecified epilepsy type (HCC)- Primary IIH (idiopathic intracranial hypertension) Benign intracranial hypertension Difficult intravenous access Other specified conditions influencing health status JACK (obstructive sleep apnea) Obstructive sleep apnea (adult) (pediatric) Gastroesophageal reflux disease, unspecified whether esophagitis present S/P gastric bypass Bariatric surgery status Major depressive disorder with single episode, remission status unspecified Medical marijuana use Encounter for long-term (current) use of other medications Anxiety Anxiety state, unspecified Morbid obesity (HCC) Morbid obesity Pre-op evaluation- Primary Preoperative examination, unspecified Intractable epilepsy without status epilepticus, unspecified epilepsy type (HCC) Gastroesophageal reflux disease, unspecified whether esophagitis present Morbid obesity (HCC) Morbid obesity S/P gastric bypass Bariatric surgery status Medical marijuana use Encounter for long-term (current) use of other medications Major depressive disorder with single episode, remission status unspecified Difficult intravenous access Other specified conditions influencing health status IIH (idiopathic intracranial hypertension) Benign intracranial hypertension [facility] Diagnosis Pre-op evaluation- Primary Preoperative examination, unspecified IIH (idiopathic intracranial hypertension) Benign intracranial hypertension Intractable epilepsy without status epilepticus, unspecified epilepsy type (HCC) Gastroesophageal reflux disease, unspecified whether esophagitis present Major depressive disorder with single episode, remission status unspecified Anxiety Anxiety state, unspecified Morbid obesity (HCC) Morbid obesity Pre-op evaluation- Primary Preoperative examination, unspecified Intractable epilepsy without status epilepticus, unspecified epilepsy type (HCC) IIH (idiopathic intracranial hypertension) Benign intracranial hypertension Gastroesophageal reflux disease, unspecified whether esophagitis present Morbid obesity (HCC) Morbid obesity Difficult intravenous access Other specified conditions influencing health status Pre-op evaluation- Primary Preoperative examination, unspecified History of penicillin allergy Personal history of allergy to penicillin Intracranial hypertension Benign intracranial hypertension Difficult intravenous access Other specified conditions influencing health status Gastroesophageal reflux disease, unspecified whether esophagitis present Morbid obesity (HCC) Morbid obesity Major depressive disorder with single episode, remission status unspecified S/P gastric bypass Bariatric surgery status Intractable epilepsy without status epilepticus, unspecified epilepsy type (HCC) Pre-op evaluation- Primary Preoperative examination, unspecified Intractable epilepsy without status epilepticus, unspecified epilepsy type ([facility]) Difficult intravenous access Other specified conditions influencing health status Gastroesophageal reflux disease, unspecified whether esophagitis present Morbid obesity (HCC) Morbid obesity Pre-op evaluation- Primary Preoperative examination, unspecified Medical marijuana use Encounter for long-term (current) use of other medications Morbid obesity with BMI of 45.0-49.9, adult (HCC) Morbid obesity Difficult intravenous access Other specified conditions influencing health status Major depressive disorder with single episode, remission status unspecified Anxiety Anxiety state, unspecified Gastroesophageal reflux disease, unspecified whether esophagitis present Intractable epilepsy without status epilepticus, unspecified epilepsy type ([facility]) Pre-operative examination- Primary Preoperative examination, unspecified Intractable epilepsy without status epilepticus, unspecified epilepsy type ([facility]) S/P gastric bypass Bariatric surgery status Gastroesophageal reflux disease, unspecified whether esophagitis present Difficult intravenous access Other specified conditions influencing health status Morbid obesity with BMI of 45.0-49.9, adult ([facility]) Morbid obesity Medical marijuana use Encounter for long-term (current) use of other medications Pre-op evaluation- Primary Preoperative examination, unspecified Morbid obesity with BMI of 45.0-49.9, adult ([facility]) Morbid obesity S/P gastric bypass Bariatric surgery status Gastroesophageal reflux disease, unspecified whether esophagitis present Difficult intravenous access Other specified conditions influencing health status Intractable epilepsy without status epilepticus, unspecified epilepsy type ([facility]) IIH (idiopathic intracranial hypertension) Benign intracranial hypertension Anxiety Anxiety state, unspecified Pre-op evaluation- Primary Preoperative examination, unspecified IIH (idiopathic intracranial hypertension) Benign intracranial hypertension Difficult intravenous access Other specified conditions influencing health status S/P gastric bypass Bariatric surgery status Gastroesophageal reflux disease, unspecified whether esophagitis present Anxiety Anxiety state, unspecified Medical marijuana use Encounter for long-term (current) use of other medications Morbid obesity with BMI of 45.0-49.9, adult ([facility]) Morbid obesity Intractable epilepsy without status epilepticus, unspecified epilepsy type ([facility])- Primary IIH (idiopathic intracranial hypertension) Benign intracranial hypertension Difficult intravenous access Other specified conditions influencing health status JACK (obstructive sleep apnea) Obstructive sleep apnea (adult) (pediatric) Gastroesophageal reflux disease, unspecified whether esophagitis present S/P gastric bypass Bariatric surgery status Major depressive disorder with single episode, remission status unspecified Medical marijuana use Encounter for long-term (current) use of other medications Anxiety Anxiety state, unspecified Morbid obesity (HCC) Morbid obesity IIH (idiopathic intracranial hypertension)- Primary Benign intracranial hypertension [facility] Diagnosis Pre-op evaluation- Primary Preoperative examination, unspecified IIH (idiopathic intracranial hypertension) Benign intracranial hypertension Intractable epilepsy without status epilepticus, unspecified epilepsy type (HCC) Gastroesophageal reflux disease, unspecified whether esophagitis present Major depressive disorder with single episode, remission status unspecified Anxiety Anxiety state, unspecified Morbid obesity (HCC) Morbid obesity Pre-op evaluation- Primary Preoperative examination, unspecified Intractable epilepsy without status epilepticus, unspecified epilepsy type (HCC) IIH (idiopathic intracranial hypertension) Benign intracranial hypertension Gastroesophageal reflux disease, unspecified whether esophagitis present Morbid obesity (HCC) Morbid obesity Difficult intravenous access Other specified conditions influencing health status Pre-op evaluation- Primary Preoperative examination, unspecified History of penicillin allergy Personal history of allergy to penicillin Intracranial hypertension Benign intracranial hypertension Difficult intravenous access Other specified conditions influencing health status Gastroesophageal reflux disease, unspecified whether esophagitis present Morbid obesity (HCC) Morbid obesity Major depressive disorder with single episode, remission status unspecified S/P gastric bypass Bariatric surgery status Intractable epilepsy without status epilepticus, unspecified epilepsy type (HCC) Pre-op evaluation- Primary Preoperative examination, unspecified Intractable epilepsy without status epilepticus, unspecified epilepsy type (HCC) Difficult intravenous access Other specified conditions influencing health status Gastroesophageal reflux disease, unspecified whether esophagitis present Morbid obesity (HCC) Morbid obesity Pre-op evaluation- Primary Preoperative examination, unspecified Medical marijuana use Encounter for long-term (current) use of other medications Morbid obesity with BMI of 45.0-49.9, adult (HCC) Morbid obesity Difficult intravenous access Other specified conditions influencing health status Major depressive disorder with single episode, remission status unspecified Anxiety Anxiety state, unspecified Gastroesophageal reflux disease, unspecified whether esophagitis present Intractable epilepsy without status epilepticus, unspecified epilepsy type (HCC) Pre-operative examination- Primary Preoperative examination, unspecified Intractable epilepsy without status epilepticus, unspecified epilepsy type (HCC) S/P gastric bypass Bariatric surgery status Gastroesophageal reflux disease, unspecified whether esophagitis present Difficult intravenous access Other specified conditions influencing health status Morbid obesity with BMI of 45.0-49.9, adult (HCC) Morbid obesity Medical marijuana use Encounter for long-term (current) use of other medications Pre-op evaluation- Primary Preoperative examination, unspecified Morbid obesity with BMI of 45.0-49.9, adult (HCC) Morbid obesity S/P gastric bypass Bariatric surgery status Gastroesophageal reflux disease, unspecified whether esophagitis present Difficult intravenous access Other specified conditions influencing health status Intractable epilepsy without status epilepticus, unspecified epilepsy type (HCC) IIH (idiopathic intracranial hypertension) Benign intracranial hypertension Anxiety Anxiety state, unspecified Pre-op evaluation- Primary Preoperative examination, unspecified IIH (idiopathic intracranial hypertension) Benign intracranial hypertension Difficult intravenous access Other specified conditions influencing health status S/P gastric bypass Bariatric surgery status Gastroesophageal reflux disease, unspecified whether esophagitis present Anxiety Anxiety state, unspecified Medical marijuana use Encounter for long-term (current) use of other medications Morbid obesity with BMI of 45.0-49.9, adult (HCC) Morbid obesity Intractable epilepsy without status epilepticus, unspecified epilepsy type (HCC)- Primary IIH (idiopathic intracranial hypertension) Benign intracranial hypertension Difficult intravenous access Other specified conditions influencing health status JACK (obstructive sleep apnea) Obstructive sleep apnea (adult) (pediatric) Gastroesophageal reflux disease, unspecified whether esophagitis present S/P gastric bypass Bariatric surgery status Major depressive disorder with single episode, remission status unspecified Medical marijuana use Encounter for long-term (current) use of other medications Anxiety Anxiety state, unspecified Morbid obesity (HCC) Morbid obesity Pre-op evaluation- Primary Preoperative examination, unspecified IIH (idiopathic intracranial hypertension) Benign intracranial hypertension Intractable epilepsy without status epilepticus, unspecified epilepsy type (HCC) Difficult intravenous access Other specified conditions influencing health status S/P gastric bypass Bariatric surgery status Gastroesophageal reflux disease, unspecified whether esophagitis present Medical marijuana use Encounter for long-term (current) use of other medications Obesity, Class III, BMI 40-49.9 (morbid obesity) (HCC) Morbid obesity Anxiety Anxiety state, unspecified IIH (idiopathic intracranial hypertension) Benign intracranial hypertension * Assessment & Plan Note - Lexis West APRN.SENIOR [employer] CHEF, DNP - 01/15/2025 7:12 AM ESTAssociated Problem(s): Epilepsy (HCC) Assessment: Follows with Neurologist. Is managed on lacosamide (Vimpat) and medical marijuana. Lastseizure was February 2023. * Assessment & Plan Note - Lexis West APRN.CNP, DNP - 01/15/2025 7:10 AM ESTAssociated Problem(s): Obesity, Class III, BMI 40-49.9 (morbid obesity) (HCC) Assessment: stated BMI today in [facility] was 41.20. on Semaglutide SQ for weightloss. * Assessment & Plan Note - Lexis West APRN.CNP, DNP - 01/15/2025 7:09 AM ESTAssociated Problem(s): Anxiety Assessment: managed on medications. * Assessment & Plan Note - Lexis West APRN.CNP, DNP - 01/15/2025 7:08 AM ESTAssociated Problem(s): Medical marijuana use Assessment: Vapes THC for Epilepsy * Assessment & Plan Note - Lexis West APRN.CNP, DNP - 01/15/2025 7:08 AM ESTAssociated Problem(s): S/P gastric bypass Assessment: 2013, had >100lb weightloss * Assessment & Plan Note - Lexis West APRN.CNP, DNP - 01/15/2025 7:07 AM ESTAssociated Problem(s): Gastroesophageal reflux disease Assessment: managed on PPI * Assessment & Plan Note - Lexis West APRN.CNP, DNP - 01/15/2025 7:07 AM ESTAssociated Problem(s): Difficult intravenous access Assessment: Has required a Midline in past and needs vein finder/US machine used. * Assessment & Plan Note - Lexis West APRN.CNP, DNP - 01/15/2025 7:06 AM ESTAssociated Problem(s): IIH (idiopathic intracranial hypertension) Assessment: is scheduled for SPINAL PUNCTURE THERAPEUTIC, DRAIN CSF VIA NEEDLE OR CATH - Pending with Janice Arroyo PA-C on 02/05/2025 at [facility]. [facility] Pre-op evaluation- Primary Preoperative examination, unspecified IIH (idiopathic intracranial hypertension) Benign intracranial hypertension Intractable epilepsy without status epilepticus, unspecified epilepsy type (HCC) Gastroesophageal reflux disease, unspecified whether esophagitis present Major depressive disorder with single episode, remission status unspecified Anxiety Anxiety state, unspecified Morbid obesity (HCC) Morbid obesity Pre-op evaluation- Primary Preoperative examination, unspecified Intractable epilepsy without status epilepticus, unspecified epilepsy type (HCC) IIH (idiopathic intracranial hypertension) Benign intracranial hypertension Gastroesophageal reflux disease, unspecified whether esophagitis present Morbid obesity (HCC) Morbid obesity Difficult intravenous access Other specified conditions influencing health status Pre-op evaluation- Primary Preoperative examination, unspecified History of penicillin allergy Personal history of allergy to penicillin Intracranial hypertension Benign intracranial hypertension Difficult intravenous access Other specified conditions influencing health status Gastroesophageal reflux disease, unspecified whether esophagitis present Morbid obesity (HCC) Morbid obesity Major depressive disorder with single episode, remission status unspecified S/P gastric bypass Bariatric surgery status Intractable epilepsy without status epilepticus, unspecified epilepsy type (HCC) Pre-op evaluation- Primary Preoperative examination, unspecified Intractable epilepsy without status epilepticus, unspecified epilepsy type (HCC) Difficult intravenous access Other specified conditions influencing health status Gastroesophageal reflux disease, unspecified whether esophagitis present Morbid obesity (HCC) Morbid obesity Pre-op evaluation- Primary Preoperative examination, unspecified Medical marijuana use Encounter for long-term (current) use of other medications Morbid obesity with BMI of 45.0-49.9, adult (HCC) Morbid obesity Difficult intravenous access Other specified conditions influencing health status Major depressive disorder with single episode, remission status unspecified Anxiety Anxiety state, unspecified Gastroesophageal reflux disease, unspecified whether esophagitis present Intractable epilepsy without status epilepticus, unspecified epilepsy type ([facility]) Pre-operative examination- Primary Preoperative examination, unspecified Intractable epilepsy without status epilepticus, unspecified epilepsy type ([facility]) S/P gastric bypass Bariatric surgery status Gastroesophageal reflux disease, unspecified whether esophagitis present Difficult intravenous access Other specified conditions influencing health status Morbid obesity with BMI of 45.0-49.9, adult ([facility]) Morbid obesity Medical marijuana use Encounter for long-term (current) use of other medications Pre-op evaluation- Primary Preoperative examination, unspecified Morbid obesity with BMI of 45.0-49.9, adult ([facility]) Morbid obesity S/P gastric bypass Bariatric surgery status Gastroesophageal reflux disease, unspecified whether esophagitis present Difficult intravenous access Other specified conditions influencing health status Intractable epilepsy without status epilepticus, unspecified epilepsy type ([facility]) IIH (idiopathic intracranial hypertension) Benign intracranial hypertension Anxiety Anxiety state, unspecified Pre-op evaluation- Primary Preoperative examination, unspecified IIH (idiopathic intracranial hypertension) Benign intracranial hypertension Difficult intravenous access Other specified conditions influencing health status S/P gastric bypass Bariatric surgery status Gastroesophageal reflux disease, unspecified whether esophagitis present Anxiety Anxiety state, unspecified Medical marijuana use Encounter for long-term (current) use of other medications Morbid obesity with BMI of 45.0-49.9, adult (HCC) Morbid obesity Intractable epilepsy without status epilepticus, unspecified epilepsy type ([facility])- Primary IIH (idiopathic intracranial hypertension) Benign intracranial hypertension Difficult intravenous access Other specified conditions influencing health status JACK (obstructive sleep apnea) Obstructive sleep apnea (adult) (pediatric) Gastroesophageal reflux disease, unspecified whether esophagitis present S/P gastric bypass Bariatric surgery status Major depressive disorder with single episode, remission status unspecified Medical marijuana use Encounter for long-term (current) use of other medications Anxiety Anxiety state, unspecified Morbid obesity (HCC) Morbid obesity Pre-op evaluation- Primary Preoperative examination, unspecified IIH (idiopathic intracranial hypertension) Benign intracranial hypertension Intractable epilepsy without status epilepticus, unspecified epilepsy type ([facility]) Difficult intravenous access Other specified conditions influencing health status S/P gastric bypass Bariatric surgery status Gastroesophageal reflux disease, unspecified whether esophagitis present Medical marijuana use Encounter for long-term (current) use of other medications Obesity, Class III, BMI 40-49.9 (morbid obesity) (HCC) Morbid obesity Anxiety Anxiety state, unspecified IIH (idiopathic intracranial hypertension)- Primary Benign intracranial hypertension IIH (idiopathic intracranial hypertension) Benign intracranial hypertension [facility] Diagnosis RLQ abdominal pain- Primary Abdominal pain, right lower quadrant Hemorrhagic cyst of left ovary [facility] Diagnosis Left lower quadrant abdominal pain- Primary Hemorrhagic ovarian cyst [facility] Diagnosis Bile reflux gastritis- Primary Other specified gastritis without mention of hemorrhage H/O gastric bypass Intestinal malabsorption, unspecified type Deficiency of other specified B group vitamins Morbid obesity with BMI of 40.0-44.9, adult ([facility]) Anxiety Anxiety state, unspecified Depression, unspecified depression type Intracranial hypertension Benign intracranial hypertension [facility] Diagnosis H/O gastric bypass Bile reflux gastritis Other specified gastritis without mention of hemorrhage [facility] Diagnosis Generalized abdominal pain Abdominal pain, generalized [facility] Diagnosis Other acute postprocedural pain- Primary History of lumbar puncture [facility] Diagnosis Left lower quadrant abdominal pain Hemorrhagic ovarian cyst [facility] Diagnosis Low back pain, unspecified back pain laterality, unspecified chronicity, unspecified whether sciatica present- Primary [facility] Diagnosis Abdominal pain, epigastric- Primary Abdominal pain, epigastric History of bariatric surgery Bariatric surgery status Postoperative pain Other acute postoperative pain [facility] Diagnosis Postoperative abdominal pain- Primary Postoperative pain Other acute postoperative pain Drug-induced constipation Other constipation [facility] Diagnosis Abdominal pain- Primary Abdominal pain, unspecified site Abdominal pain Abdominal pain, unspecified site documented in this encounter [facility] note* Diagnosis Intractable abdominal pain- Primary Abdominal pain, epigastric Epigastric pain Abdominal pain, epigastric documented in this encounter [facility] note* Diagnosis Intractable abdominal pain- Primary Intractable abdominal pain Intractable nausea and vomiting History of gastric bypass documented in this encounter [facility] note* Diagnosis Right leg swelling- Primary Right calf pain documented in this encounter [facility] note* Diagnosis Intestinal malabsorption, unspecified type- Primary Gastroesophageal reflux disease, unspecified whether esophagitis present H/O gastric bypass Deficiency of multiple nutrient elements Other nutritional deficiency Morbid obesity with BMI of 40.0-44.9, adult (HCC) documented in this encounter [facility] noteNo assessment information availableWKettering [facility] Work Phone: Evaluation note* Diagnosis Chronic low back pain, unspecified back pain laterality, unspecified whether sciatica present- Primary documented in this encounter [facility] course Narrative No data available for this section [facility] Discharge instructions* Attachments The following attachments cannot be sent through Care Everywhere. * Ovarian Cyst Discharge Instructions ([place]) documented in this [facility] Discharge instructions* Attachments The following attachments cannot be sent through Care Everywhere. * Moderate Sedation in Adults Discharge Instructions ([place]) * Upper GI Endoscopy Discharge Instructions ([place]) documented in this [facility] Discharge instructions* Attachments The following attachments cannot be sent through Care Everywhere. * Abdominal Pain, Adult ED ([place]) * Nausea and Vomiting Discharge Instructions, Adult ([place]) documented in this [facility] for referral (narrative)No reason for referral information availableWKettering Memorial Hospital Work Phone: Reason for visit Narrative* Auth/Cert (Routine) Specialty Diagnoses / Procedures Referred By Galo riley Referred To Contact Diagnoses Generalized abdominal pain Procedures OK EGD TRANSORAL BIOPSY SINGLE/MULTIPLE ESOPHAGOGASTRODUODENOSCOPY, DIAGNOSTIC Marco Antonio Soto MD [address] [facility] [place] [address] Phone: tel: fax: [facility] [address] [place] [address] Phone: tel: Referral ID Status Reason Start Date Expiration Date Visits Re quested Visits Authorized [id number] 1 1 [facility] Reason for Referral Specialty Diagnoses / Procedures Referred By Contac t Referred To Contact Neurology Diagnoses Idiopathic intracranial hypertension System, Provider Not In [facility] Neurology [facility] Referral ID Status Reason Start Date Expiration Date V isits Requested Visits Authorized [id number] Authorized 05/29/2022 05/29/2023 1 1 Specialty Diagnoses / Procedures Referred By Contac t Referred To Contact Neurology Diagnoses Pseudotumor cerebri Aliyah Abreu MD [address] [facility] [address] [place] [address] [facility] [address] [address] Phone: [phone] Referral ID Status Reason Start Date Expiration Date Visits Requested Visits Authorized [id number] Authorized Specialty Services Required/Pat ient's Best Interest 08/10/2022 08/10/2023 1 1 Specialty Diagnoses / Procedures Referred By Contac t Referred To Contact MR IMAGING Diagnoses Other localized visual field defect, bilateral IIH (idiopathic intracranial hypertension) Procedures MRV BRAIN WO/W IVCON MRA; HEAD W & WO CONTRAST Stefano Chacon MD [address] [place] [address] Mr [facility] Referral ID Status Reason Start Date Expiration Date Visits Requested Visits Authorized [id number] Pending Review Auto-Generat ed Referral 12/22/2022 01/21/2024 1 1 Specialty Diagnoses / Procedures Referred By Contac t Referred To Contact Neurology Diagnoses Chronic primary headache Procedures CONSULT TO NEUROLOGY OFFICE/OUTPATIENT [facility] MDM 60-74 MINUTES Stefano Chacon MD [address] [place] [address] Referral ID Status Reason Start Date Expiration Date Visits Requested Visits Authorized [id number] Pending Review PCP Requested Referral 03/17/2023 03/16/2024 1 1 Specialty Diagnoses / Procedures Referred By Contac t Referred To Contact Neurology Diagnoses History of papilledema Headache disorder Procedures CONSULT TO NEUROLOGY OFFICE/OUTPATIENT [facility] MDM 60 MINUTES Stefano Chacon MD [address] [place] [address] Referral ID Status Reason Start Date Expiration Date Visits Requested Visits Authorized [id number] Authorized PCP Requested Referral 05/01/2024 05/01/2025 1 1 Summary Purpose Family History No Family History Records FoundNo Family History Records FoundNo Family History Records FoundNo Family History Records FoundNo Family History Records FoundNo Family History Records FoundNo Family History Records FoundNo Family History Records FoundNo Family History Records Found Advance Directives Date Activated Date Inactivated Comments 06/05/2025 6:13 PM 06/08/2025 7:53 PM Date Activated Date Inactivated Comments 05/27/2025 9:31 AM 05/28/2025 1:56 PM Date Activated Date Inactivated Comments 03/12/2025 8:04 AM 03/12/2025 11:45 AM Advance Directive Response Recorded Date/ Time Living Will No December 15 11:48am Do you have a Healthcare Power of Teacher Resource? No December 15, 2024 11:48am Date Activated Date Inactivated Comments 03/12/2025 8:04 AM 03/12/2025 11:45 AM Date Activated Date Inactivated Comments 03/12/2025 8:04 AM 03/12/2025 11:45 AM Date Activated Date Inactivated Comments 05/27/2025 9:31 AM 05/28/2025 1:56 PM Date Activated Date Inactivated Comments 03/12/2025 8:04 AM 03/12/2025 11:45 AM Date Activated Date Inactivated Comments 06/05/2025 6:13 PM Date Activated Date Inactivated Comments 06/05/2025 6:13 PM Date Activated Date Inactivated Comments 05/27/2025 9:31 AM 05/28/2025 1:56 PM Date Activated Date Inactivated Comments 03/12/2025 8:04 AM 03/12/2025 11:45 AM Date Activated Date Inactivated Comments 06/05/2025 6:13 PM 06/08/2025 7:53 PM Advance Directive Response Recorded Date/ Time Do you have a Healthcare Power of Teacher Resource? No July 04, 2025 12:55pm Medications Administered Section Inactive Administered Medications - up to 3 most recent administrations Medication Order MAR Action Action Date Dose Rate Site PHENYLephrine 2.5 % 1 Drop (AK-DILATE, KYRA-SYNEPHRINE) 1 Drop, BOTH EYES, DIRECTED, Starting on Wed12/22/22 at 0800, Until Wed12/22/22 at 195, Administer for dilation PROTECT FROM LIGHT Given 12/22/2022 8:11 AM EST 1 Drop tropicamide 1 % 1 Drop (MYDRIACYL) 1 Drop, BOTH EYES, DIRECTED, Starting on Wed12/22/22 at 0800, Until Wed12/22/22 at 1958, Administer for dilation Given 12/22/2022 8:11 AM EST 1 Drop Inactive Administered Medications - up to 3 most recent administrations Medication Order MAR Action Action Date Dose Rate Site acetaminophen 650 mg tab(s) (TYLENOL) 650 mg, ORAL, EVERY 4 HOURS NEEDED, Starting on Wed02/17/23 at 1414, Until Wed02/18/23 at 0303, Mild Pain (1-3) - Enteral, If ordered PRN for pain, patient/guardian may elect to receive this medication for higher pain levels INSTEAD of the opioid, if preferred: Yes Given 02/17/2023 2:22 PM EDT 650 mg lidocaine (PF) 10 mg/mL (1 %) 10-100 mg injection (XYLOCAINE) 10-100 mg (1-10 mL), INTRADERMAL, DIRECTED NEEDED, 1 dose, Starting on Wed02/17/23 at 1134, Until Wed02/18/23 at 0303, See admin instructions, Procedure use only - PICC/Midline placement, Procedure use only - PICC/Midline placement lidocaine (PF) 10 mg/mL (1 %) injection (XYLOCAINE) SUBCUTANEOUS, X (OR/PROCEDURE) PRN, Starting on Wed02/17/23 at 1308, Until Wed02/18/23 at 0303, Intraprocedure Given 02/17/2023 1:08 PM EDT 5 mL Oth er lidocaine (PF) 20 mg/mL (2 %) injection (XYLOCAINE) SUBCUTANEOUS, X (OR/PROCEDURE) PRN, Starting on Wed02/17/23 at 1340, Until Wed02/18/23 at 0303, Intraprocedure Given 02/17/2023 1:40 PM EDT 5 mL Oth er Inactive Administered Medications - up to 3 most recent administrations Medication Order MAR Action Action Date Dose Rate Site lidocaine (PF) 10 mg/mL (1 %) 10-100 mg injection (XYLOCAINE) 10-100 mg (1-10 mL), INTRADERMAL, DIRECTED NEEDED, 1 dose, Starting on Wed07/28/23 at 1127, Until Wed07/28/23 at 1243, See admin instructions, Procedure use only - PICC/Midline placement, Procedure use only - PICC/Midline placement, Preprocedure Given 07/28/2023 12:43 PM EDT 5 mL Arm, Right Chief Complaint and Reason for Visit Chief Complaint Admit Date Intestinal Issue October 17, 2024 4:12pm REFLUX January 01, 2025 9:16am RULE OUT OBSTRUCTION January 04, 2025 1:00pm Test Result January 04, 2025 3:03pm EORDERS February 06, 2025 4:4 4pm SYNCOPE February 08, 2025 8:4 4am Syncope February 08, 2025 5:2 4pm Reason for Visit Admit Date GERD (gastroesophageal reflux disease) N ovember 2023 4:12pm Constipation October 17, 2024 4:12pm GERD (gastroesophageal reflux disease) J anuary 2024 12:24pm Abdominal pain December 19, 2024 1 2:24pm Epigastric pain January 04, 2025 3:03pm GERD (gastroesophageal reflux disease) F [facility] 2024 3:03pm History of Krystal-en-Y gastric bypass [facility] 2024 3:03pm Chief Complaint Admit Date REFLUX January 01, 2025 9:16am RULE OUT OBSTRUCTION January 04, 2025 1:00pm Test Result January 04, 2025 3:03pm EORDERS February 06, 2025 4:4 4pm SYNCOPE February 08, 2025 8:4 4am Syncope February 08, 2025 5:2 4pm Reason for Visit Admit Date GERD (gastroesophageal reflux disease) J anuary 2024 12:24pm Abdominal pain December 19, 2024 1 2:24pm Epigastric pain January 04, 2025 3:03pm GERD (gastroesophageal reflux disease) F [facility] 2024 3:03pm History of Krystal-en-Y gastric bypass [facility] 2024 3:03pm Chief Complaint Admit Date BACK July 04, 2025 12 :24pm Additional Source Comments Reason for Visit (unrecogniz ed section and content) Reason Comments Idiopathic intracranial hypertension She has her fiance Joslyn with her. She was DX. In 2006. She states it is severe she gets a spinal tap 1 X a month she has had 127 of them. She is her due to needing a spinal tap. Seizures She states her seizu res are good. [facility] is treating tee Specialty Diagnoses / Procedures Referred By Galo riley Referred To Contact Neurology Diagnoses Idiopathic intracranial hypertension Del Ordaz MD [address] [place] [address] [facility] Neurology [facility] Referral ID Status Reason Start Date Expiration Date V isits Requested Visits Authorized [id number] Pending Review 05/29/2022 05/29/2023 1 1 Reason Comments Received Outside Medical Records Reason Comments II Specialty Diagnoses / Procedures Referred By Galo riley Referred To Contact Ophthalmology / OPHTHALMOLOGY Diagnoses Persons encountering health services in other specified circumstances IIH Procedures OFFICE/OUTPATIENT NEW MODERATE MDM 45-59 MINUTES NEW NEURO Ginger Haq MD [address] [place] [address] Stefano Chacon MD [address] [place] [address] Referral ID Status Reason Start Date Expiration Date Visits Requested Visits Authorized [id number] Waiting for Response Financial Clearance Required - OON Payor OON Notification Letter Patient Cleared Patient agrees to sign AFR (INN Commercial or OON MA) 3 03/22/2023 1 0 Reason Comments Orders Per patient request order has been placed for IR lumbar puncture to check opening pressure and drain if elevated. Reason Comments Patient Update Reason Comments IIH Reason Comments Anesthesia Consult Specialty Diagnoses / Procedures Referred By Galo riley Referred To Contact ADMITTING Diagnoses Benign intracranial hypertension Procedures DIAGNOSTIC LUMBAR SPINAL PUNCTURE SPINAL PUNCTURE LUMBAR DIAGNOSTIC [facility] [address] [place] [address] Referral ID Status Reason Start Date Expiration Date Visits Re quested Visits Authorized [id number] 1 1 Reason Comments Patient Question Reason Comments Procedure Reason Comments Procedure venous manometry & s tent with Dr. Silver 03/12/23 Reason Comments Medication Update Reason Comments Pre-Op Visit Specialty Diagnoses / Procedures Referred By Contac t Referred To Contact Anesthesiology / ANESTHESIOLOGY Diagnoses IIH (idiopathic intracranial hypertension) [G93.2] Procedures COMPLETE PACC Stefano Chacon MD [address] [place] [address] 1, [facility] [address] [place], [place] [id number] Referral ID Status Reason Start Date Expiration Date V isits Requested Visits Authorized [id number] Pending Review 01/29/2023 04/29/2023 1 1 Specialty Diagnoses / Procedures Referred By Contac t Referred To Contact ADMITTING Diagnoses IIH (idiopathic intracranial hypertension) Procedures DIAGNOSTIC LUMBAR SPINAL PUNCTURE SPINAL PUNCTURE LUMBAR DIAGNOSTIC [facility] [address] [place] [id number] Referral ID Status Reason Start Date Expiration Date Visits Re quested Visits Authorized [id number] 1 1 Reason Comments Results Reason Comments Symptoms Reason Comments IIH (idiopathic intracranial hypertensio n) Reason Comments Anesthesia Consult Preop evaluation Specialty Diagnoses / Procedures Referred By Contact Referred To Contact Anesthesiology / ANESTHESIOLOGY Diagnoses PACC Procedures COMPLETE PACC Stefano Chacon MD [address] [place] [address] 1, [facility] [address] [place] [address] Referral ID Status Reason Start Date Expiration Date V isits Requested Visits Authorized [id number] Pending Review 06/04/2023 09/02/2023 1 1 Referral ID Status Reason Start Date Expiration Date Visits Re quested Visits Authorized [id number] 1 1 Referral ID Status Reason Start Date Expiration Date Visits Re quested Visits Authorized [id number] 1 [address] Referral ID Status Reason Start Date Expiration Date Visits Re quested Visits Authorized [id number] 1 1 Reason Comments Orders Reason Comments IIH (idiopathic intracranial hypertensio n) Specialty Diagnoses / Procedures Referred By Contac t Referred To Contact ANESTHESIOLOGY Diagnoses PRE OP Procedures COMPLETE PACC Stefano Chacon MD [address] [place] [address] 3, Pacc [address] [place] [phone] Referral ID Status Reason Start Date Expiration Date V isits Requested Visits Authorized [id number] Pending Review 01/28/2024 04/27/2024 1 1 Specialty Diagnoses / Procedures Referred By Contac t Referred To Contact RADIO ANGIO PICC MAIN A21 Diagnoses Pre-op evaluation [Z01.818] Difficult intravenous access [Z78.9] Procedures MIDLINE INSERTION INTRODUCTION NEEDLE/INTRACATHETER VEIN Suman Jones, SALES PROFESSIONAL [employer]ING[employer].SENIOR SOUS CHEF [address] [place] [phone] [address] [facility] [address] [place] [phone] Referral ID Status Reason Start Date Expiration Date V isits Requested Visits Authorized [id number] Closed OON/Self Pay Override 01/28/2024 11/21/2024 1 1 Specialty Diagnoses / Procedures Referred By Contac t Referred To Contact ANESTHESIOLOGY Diagnoses PRE OP Procedures COMPLETE PACC Stefano Chacon MD [address] [place] [phone] 2, Pacc [address] [place] [phone] Referral ID Status Reason Start Date Expiration Date V isits Requested Visits Authorized [id number] Pending Review 03/03/2024 06/01/2024 1 1 Reason Comments IIH (idiopathic intracranial hypertensio n) Reason Comments history of papilledema Specialty Diagnoses / Procedures Referred By Contac t Referred To Contact Neurology Diagnoses History of papilledema Headache disorder Procedures CONSULT TO NEUROLOGY OFFICE/OUTPATIENT [facility] 60 MINUTES Stefano Chacon MD [address] [place] [address] Referral ID Status Reason Start Date Expiration Date V isits Requested Visits Authorized [id number] Closed PCP Requested Referral 05/01/2024 05/01/2025 1 1 Reason Comments Radiology MRI Reason Comments Radiology IR LP with TABBY Reason Comments Scheduling LP with TABBY and PAC C info Reason Comments Pelvic Pain Patient complains of R lower pelvic pain since 1330 Reason Comments Abdominal Pain Pt c/o LLQ pain and was seen here yesterday for left hemorrhagic cyst. C/o N/V Reason Comments Bariatrics Post Op Follow-up TFU- stomac h full of bile, stomach measuring at 70 cm Specialty Diagnoses / Procedures Referred By Contac t Referred To Contact Bariatrics Diagnoses Morbid (severe) obesity due to excess calories (HCC) Procedures EVAL AND TREAT Julian Leahy PA-C [address] [place] [address] Phone: tel: fax: [facility] [place] [address] [place] [address] Phone: tel: fax: Referral ID Status Reason Start Date Expiration Date V isits Requested Visits Authorized [id number] Pending Review 01/05/2025 01/05/2026 1 1 Reason Comments EGD EGD order Reason Comments Back Pain Had a lumbar punctur e yesterday and having numbness and tingling down right leg. Reason Comments Follow-up ED 02/12 & 03/28 - Ovar tej Cyst - states she is concerned for the cysts on both ovaries. Had a hysterectomy. Had imaging done at ED Specialty Diagnoses / Procedures Referred By Contac t Referred To Contact Obstetrics and Gynecology Diagnoses Left lower quadrant abdominal pain Hemorrhagic ovarian cyst Procedures OK OFFICE/OUTPATIENT NEW HIGH MDM 60 MINUTES Darleen Daniel MD [address] [place] [address] Phone: tel: fax: [facility]etrics [facility] - [place] [address] [place] [address] Phone: tel: fax: Referral ID Status Reason Start Date Expiration Date V isits Requested Visits Authorized [id number] Closed Specialty Services Required 02/12/2025 02/12/2026 1 1 Reason Comments Back Pain Pt c/o chronic back pain due to numerous spinal taps. States pain more severe over the past couple of days. States she is in pain management, but unable to get an an appointment. Due for a nerve block next weeek Reason Comments Abdominal Pain Specialty Diagnoses / Procedures Referred By Galo riley Referred To Contact Diagnoses Abdominal pain, epigastric History of bariatric surgery Procedures . Marco Antonio Soto MD [address] [facility] [place] [address] Phone: tel: fax: [facility] Surgical Progressive Care Unit PCU [address] [place] [address] Phone: tel: Referral ID Status Reason Start Date Expiration Date Visits Re quested Visits Authorized [id number] 1 1 Reason Comments Abdominal Pain Recent abdominal leon maddy. Pain started at 0900. Nausea. Reason Comments Abdominal Pain Pt comes in stating that she had emergency surgery 1 week ago to fix adhesion that wrapped around intestines. Pt states pain is back and is worse this time Specialty Diagnoses / Procedures Referred By Galo riley Referred To Contact Diagnoses Abdominal pain Procedures . Santosh Garcia DO [address] [place] [address] Phone: tel: fax: [facility] Medical Surgical Unit MSU [address] [place] [address] Phone: tel: Referral ID Status Reason Start Date Expiration Date Visits Re quested Visits Authorized [id number] 1 1 Reason Onset Date Comments Abdominal Pain 06/05/2025 Reason Comments Abdominal Pain Center abdominal alivia n with vomiting since last night. Recent abdominal sx for lesions 2 weeks ago, pain feels the same Specialty Diagnoses / Procedures Referred By Galo riley Referred To Contact Diagnoses History of gastric bypass Intractable abdominal pain Intractable nausea and vomiting Procedures .. Al Murillo MD [address] [place] [address] Phone: tel: fax: [facility] Clinical Decision Unit CD[address] [place] [address] Phone: tel: Referral ID Status Reason Start Date Expiration Date Visits Re quested Visits Authorized [id number] 1 1 Reason Comments Leg Pain R calf pain since getting progressively worse. Denies any recent fall or injury. States she had surgery 1.5 month ago for adhesion wrapped around intestines. Reason Comments Bariatrics Post Op Follow-up 2w lap, EDIL Reason Comments Back Pain Care Teams (unrecognized sec tion and content) Transmissions Systems Operator Relationship Specialty Start Date End Date aYn Jasso, DO [address] [place] [address] PCP - General Family Medicine 08/10/22 Transmissions Systems Operator Relationship Specialty Start Date End Date Anibal Thompson, DO Neurology 12/22/22 Transmissions Systems Operator Relationship Specialty Start Date End Date Anibal Thompson, DO Neurology 12/22/22 Transmissions Systems Operator Relationship Specialty Start Date End Date Anibal Thompson, DO Neurology 12/22/22 Transmissions Systems Operator Relationship Specialty Start Date End Date Anibal Thompson, DO Neurology 12/22/22 Transmissions Systems Operator Relationship Specialty Start Date End Date Kenyon Jasso [address] [place] [address] PCP - General Family Medicine 01/11/23 Anibal Thompson, DO Neurology 12/22/22 Transmissions Systems Operator Relationship Specialty Start Date End Date Kenyon Jasso [address] [place] [address] PCP - General Family Medicine 01/11/23 Anibal Thompson, DO Neurology 12/22/22 Transmissions Systems Operator Relationship Specialty Start Date End Date Kenyon Jasso [address] [place] [address] PCP - General Family Medicine 01/11/23 Anibal Thompson, DO Neurology 12/22/22 Transmissions Systems Operator Relationship Specialty Start Date End Date Kenyon Jasso [address] [place] [address] PCP - General Family Medicine 01/11/23 Anibal Thompson, DO Neurology 12/22/22 Transmissions Systems Operator Relationship Specialty Start Date End Date Kenyon Jasso [address] [place] [address] PCP - General Family Medicine 01/11/23 Anibal Thompson, DO Neurology 12/22/22 Transmissions Systems Operator Relationship Specialty Start Date End Date Kenyon Jasso [address] [place] [address] PCP - General Family Medicine 01/11/23 Anibal Thompson, DO Neurology 12/22/22 Transmissions Systems Operator Relationship Specialty Start Date End Date Kenyon Jasso [address] [place] [address] PCP - General Family Medicine 01/11/23 Anibal Thompson, DO Neurology 12/22/22 Transmissions Systems Operator Relationship Specialty Start Date End Date Kenyon Jasso [address] [place] [address] PCP - General Family Medicine 01/11/23 Anibal Thompson, DO Neurology 12/22/22 Transmissions Systems Operator Relationship Specialty Start Date End Date Kenyon Jasso [address] [place] [address] PCP - General Family Medicine 01/11/23 Anibal Thompson, DO Neurology 12/22/22 Transmissions Systems Operator Relationship Specialty Start Date End Date Kenyon Jasso [address] [place] [address] PCP - General Family Medicine 01/11/23 Anibal Thompson, DO Neurology 12/22/22 Transmissions Systems Operator Relationship Specialty Start Date End Date Kenyon Jasso [address] [place] [address] PCP - General Family Medicine 01/11/23 Anibal Thompson, DO Neurology 12/22/22 Transmissions Systems Operator Relationship Specialty Start Date End Date Yan Jasso, DO [address] [place] [address] PCP - General Family Medicine 03/14/23 Anibal Thompson, DO Neurology 12/22/22 Transmissions Systems Operator Relationship Specialty Start Date End Date Yan Jasso, DO [address] [place] [address] PCP - General Family Medicine 03/14/23 Anibal Thompson, DO Neurology 12/22/22 Transmissions Systems Operator Relationship Specialty Start Date End Date Yan Jasso, DO [address] [place] [address] PCP - General Family Medicine 03/14/23 Anibal Thompson, DO Neurology 12/22/22 Transmissions Systems Operator Relationship Specialty Start Date End Date Yan Jasso, DO [address] [place] [address] PCP - General Family Medicine 03/14/23 Anibal Thompson, DO Neurology 12/22/22 Transmissions Systems Operator Relationship Specialty Start Date End Date Yan Jasso, DO [address] [place] [address] PCP - General Family Medicine 03/14/23 Anibal Thompson, DO Neurology 12/22/22 Transmissions Systems Operator Relationship Specialty Start Date End Date Yan Jasso, DO [address] [place] [address] PCP - General Family Medicine 03/14/23 Anibal Thompson, DO Neurology 12/22/22 Transmissions Systems Operator Relationship Specialty Start Date End Date Yan Jasso, DO [address] [place] [address] PCP - General Family Medicine 03/14/23 Anibal Thompson, DO Neurology 12/22/22 Transmissions Systems Operator Relationship Specialty Start Date End Date Yan Jasso, DO [address] [place] [address] PCP - General Family Medicine 03/14/23 Anibal Thompson, DO Neurology 12/22/22 Transmissions Systems Operator Relationship Specialty Start Date End Date Yan Jasso, DO [address] [place] [address] PCP - General Family Medicine 03/14/23 Anibal Thompson, Neurology 12/22/22 Transmissions Systems Operator Relationship Specialty Start Date End Date Yan Jasso, DO [address] [place] [address] PCP - General Family Medicine 03/14/23 Anibal Thompson, Neurology 12/22/22 Transmissions Systems Operator Relationship Specialty Start Date End Date Yan Jasso, DO [address] [place] [address] PCP - General Family Medicine 03/14/23 Anibal Thompson, Neurology 12/22/22 Transmissions Systems Operator Relationship Specialty Start Date End Date Yan Jasso, [address] [place] [address] PCP - General Family Medicine 03/14/23 Anibal Thompson, Neurology 12/22/22 Transmissions Systems Operator Relationship Specialty Start Date End Date Yan Jasso, [address] [place] [address] PCP - General Family Medicine 03/14/23 Anibal Thompson, Neurology 12/22/22 Transmissions Systems Operator Relationship Specialty Start Date End Date Yan Jasso DO [address] [place] [address] PCP - General Family Medicine 03/14/23 Anibal Thompson, Neurology 12/22/22 Transmissions Systems Operator Relationship Specialty Start Date End Date Yan Jasso, [address] [place] [address] PCP - General Family Medicine 03/14/23 Anibal Thompson, Neurology 12/22/22 Transmissions Systems Operator Relationship Specialty Start Date End Date Yan Jasso DO [address] [place] [address] PCP - General Family Medicine 03/14/23 Anibal Thompson DO Neurology 12/22/22 Transmissions Systems Operator Relationship Specialty Start Date End Date Yan Jasso DO [address] [place] [address] PCP - General Family Medicine 03/14/23 Anibal Thompson, Neurology 12/22/22 Transmissions Systems Operator Relationship Specialty Start Date End Date Yan Jasso DO [address] [place] [address] PCP - General Family Medicine 03/14/23 Anibal Thompson, Neurology 12/22/22 Transmissions Systems Operator Relationship Specialty Start Date End Date Yan Jasso DO [address] [place] [address] PCP - General Family Medicine 03/14/23 Anibal Thompson DO Neurology 12/22/22 Transmissions Systems Operator Relationship Specialty Start Date End Date Yan Jasso DO [address] [place] [address] PCP - General Family Medicine 03/14/23 Anibal Thompson, Neurology 12/22/22 Transmissions Systems Operator Relationship Specialty Start Date End Date Yan Jasso DO [address] [facility] [address] [place] [address] PCP - General Family Medicine 03/14/23 Anibal Thompson, Neurology 12/22/22 Transmissions Systems Operator Relationship Specialty Start Date End Date Yan Jasso DO [address] [facility] [address] [place] [address] PCP - General Family Medicine 03/14/23 Anibal Thompson, Neurology 12/22/22 Transmissions Systems Operator Relationship Specialty Start Date End Date Yan Jasso DO [address] [facility] [address] [place] [address] PCP - General Family Medicine 03/14/23 Anibal Thompson, Neurology 12/22/22 Transmissions Systems Operator Relationship Specialty Start Date End Date Yan Jasso DO [address] [facility] [address] [place] [address] PCP - General Family Medicine 03/14/23 Anibal Thompson DO Neurology 12/22/22 Transmissions Systems Operator Relationship Specialty Start Date End Date Yan Jasso DO [address] [facility] [address] [place] [address] PCP - General Family Medicine 03/14/23 Anibal Thompson DO Neurology 12/22/22 Transmissions Systems Operator Relationship Specialty Start Date End Date Yan Jasso DO [address] [facility] [address] [place] [address] PCP - General Family Medicine 03/14/23 Anibal Thompson DO Neurology 12/22/22 Transmissions Systems Operator Relationship Specialty Start Date End Date Anibal Thompson DO Neurology 12/22/22 Transmissions Systems Operator Relationship Specialty Start Date End Date Fede Davis MD [address] [facility] [address] [place] [address] PCP - General Internal Medicine 06/19/24 Anibal Thompson DO Neurology 12/22/22 Transmissions Systems Operator Relationship Specialty Start Date End Date Anibal Thompson DO Neurology 12/22/22 Transmissions Systems Operator Relationship Specialty Start Date End Date Fede Davis MD [address] [facility] [address] [place], [place] [address] PCP - General Internal Medicine 06/19/24 Anibal Thompson DO Neurology 12/22/22 Transmissions Systems Operator Relationship Specialty Start Date End Date Fede Davis MD [address] [facility] [address] [place], [place] [id number] PCP - General Internal Medicine 06/19/24 Anibal Thompson DO Neurology 12/22/22 Transmissions Systems Operator Relationship Specialty Start Date End Date Fede Davis MD [address] [facility] [address] [place], [place] [id number] PCP - General Internal Medicine 06/19/24 Anibal Thompson DO Neurology 12/22/22 Transmissions Systems Operator Relationship Specialty Start Date End Date Fede Davis MD [address] [place] [address] PCP - General Internal Medicine 06/19/24 Anibal Thompson DO Neurology 12/22/22 Transmissions Systems Operator Relationship Specialty Start Date End Date Fede Davis MD [address] [facility] [address] [place] [address] PCP - General Internal Medicine 06/19/24 Anibal Thompson DO Neurology 12/22/22 Transmissions Systems Operator Relationship Specialty Start Date End Date Fede Davis MD [address] [place] [address] PCP - General Internal Medicine 06/19/24 Anibal Thompson DO Neurology 12/22/22 Transmissions Systems Operator Relationship Specialty Start Date End Date Fede Davis MD [address] [facility] [address] [place] [address] PCP - General Internal Medicine 06/19/24 Anibal Thompson DO Neurology 12/22/22 Transmissions Systems Operator Relationship Specialty Start Date End Date Fede Davis MD [address] [place] [address] PCP - General Internal Medicine 06/19/24 Anibal Thompson DO Neurology 12/22/22 Transmissions Systems Operator Relationship Specialty Start Date End Date Fede Davis MD [address] [facility] [address] [place] [address] PCP - General Internal Medicine 06/19/24 Anibal Thompson DO Neurology 12/22/22 Transmissions Systems Operator Relationship Specialty Start Date End Date Fede Davis MD [address] [facility] [address] [place] [address] PCP - General Internal Medicine 06/19/24 Anibal Thompson DO Neurology 12/22/22 Transmissions Systems Operator Relationship Specialty Start Date End Date Fede Davis MD [address] [facility] [address] [place] [address] PCP - General Internal Medicine 06/19/24 Anibal Thompson DO Neurology 12/22/22 Transmissions Systems Operator Relationship Specialty Start Date End Date Fede Davis MD [address] [facility] [address] [place] [address] PCP - General Internal Medicine 06/19/24 Anibal Thompson DO Neurology 12/22/22 Transmissions Systems Operator Relationship Specialty Start Date End Date Fede Davis MD [address] [facility] [address] [place] [address] PCP - General Internal Medicine 06/19/24 Anibal Thompson DO Neurology 12/22/22 Transmissions Systems Operator Relationship Specialty Start Date End Date Fede Davis MD [address] [place], [place] [address] PCP - General Internal Medicine 06/19/24 Anibal Thompson DO Neurology 12/22/22 Transmissions Systems Operator Relationship Specialty Start Date End Date Fede Davis MD [address] [place] [address] PCP - General Internal Medicine 06/19/24 Anibal Thompson DO Neurology 12/22/22 Transmissions Systems Operator Relationship Specialty Start Date End Date [facility]e Davis MD [facility] [address] [place], [place] [address] PCP - General Internal Medicine 06/19/24 Anibal Thompson DO Neurology 12/22/22 Transmissions Systems Operator Relationship Specialty Start Date End Date Fede Davis MD [address] [place] [address] [address] [place] [address] PCP - General Family Medicine 01/08/25 Marco Antonio Soto MD [address] [place] [address] [address] [place], [place] [id number] Surgeon General Surgery 02/07/25 Transmissions Systems Operator Relationship Specialty Start Date End Date Fede Davis MD [address] [facility] [address] [place], [place] [id number] PCP - General Family Medicine 01/08/25 Marco Antonio Soto MD [address] [facility] [address] [place] [address] Surgeon General Surgery 02/07/25 Transmissions Systems Operator Relationship Specialty Start Date End Date Fede Davis MD [address] [place] [address] [address] [place], [place] [address] PCP - General Family Medicine 01/08/25 Marco Antonio Soto MD [address] [facility] [address] [place] [address] Surgeon General Surgery 02/07/25 Team Status: Active Member Role Status Silva Davis MD Primary Care Provider Active Team Status: Inactive Member Role Status Silva Davis MD Primary Care Provider Active St art: October 17, 2024 End: October 17, 2024 Fede Davis MD Referring Provider Active Start : October 17, 2024 End: October 17, 2024 TIP Geronimo Attending Provider Active Start: October 17, 2024 End: October 17, 2024 Team Status: Inactive Member Role Status Silva Davis MD Primary Care Provider Active St art: December 19, 2024 End: December 19, 2024 Fede Davis MD Referring Provider Active Start : December 19, 2024 End: December 19, 2024 Dr. Wilton Hunt DO Attending Provider Active Start: December 19, 2024 End: December 19, 2024 Team Status: Active Member Role Status Silva Davis MD Primary Care Provider Active St art: December 19, 2024 Fede Davis MD Referring Provider Active Start : December 19, 2024 Dr. Wilton Hunt DO Attending Provider Active Start: December 19, 2024 Dr. Wilton Hunt DO Other Provider Active St art: December 19, 2024 Team Status: Inactive Member Role Status Silva Davis MD Primary Care Provider Active St art: January 01, 2025 End: January 01, 2025 Dr. Wilton Hunt DO Attending Provider Active Start: January 01, 2025 End: January 01, 2025 Dr. Wilton Hunt DO Referring Provider Active Start: January 01, 2025 End: January 01, 2025 Team Status: Inactive Member Role Status Silva Davis MD Primary Care Provider Active St art: January 04, 2025 End: January 04, 2025 TIP Geronimo Attending Provider Active Start: January 04, 2025 End: January 04, 2025 TIP Geronimo Referring Provider Active Start: January 04, 2025 End: January 04, 2025 Team Status: Inactive Member Role Status Silva Davis MD Primary Care Provider Active St art: January 04, 2025 End: January 04, 2025 Fede Davis MD Referring Provider Active Start : January 04, 2025 End: January 04, 2025 TIP Geronimo Attending Provider Active Start: January 04, 2025 End: January 04, 2025 Team Status: Inactive Member Role Status Silva Davis MD Primary Care Provider Active St art: February 06, 2025 End: February 06, 2025 Fede Davis MD Attending Provider Active Start : February 06, 2025 End: February 06, 2025 Fede Davis MD Referring Provider Active Start : February 06, 2025 End: February 06, 2025 Team Status: Active Member Role Status Silva Davis MD Primary Care Provider Active St art: February 08, 2025 Fede Davis MD Attending Provider Active Start : February 08, 2025 Fede Davis MD Referring Provider Active Start : February 08, 2025 Team Status: Active Member Role Status Silva Davis MD Primary Care Provider Active St art: February 08, 2025 Fede Davis MD Referring Provider Active Start : February 08, 2025 Fede Davis MD Other Provider Active Start: [facility] [address] Dr. Kvng Bolden MD Attending Provider Active S tart: February 08, 2025 Team Status: Inactive Member Role Status Silva Davis MD Primary Care Provider Active St art: February 08, 2025 End: February 08, 2025 Fede Davis MD Attending Provider Active Start : February 08, 2025 End: February 08, 2025 Fede Davis MD Referring Provider Active Start : February 08, 2025 End: February 08, 2025 Transmissions Systems Operator Relationship Specialty Start Date End Date Fede Davis MD [address] [facility] [address] [place], [place] [address] PCP - General Family Medicine 01/08/25 Marco Antonio Soto MD [address] [place] [address] [address] [place], [place] [id number] Surgeon General Surgery 02/07/25 Transmissions Systems Operator Relationship Specialty Start Date End Date Fede Davis MD [address] [facility] [address] [place], [place] [id number] PCP - General Family Medicine 01/08/25 Marco Antonio Soto MD [address] [place] [address] [address] [place], [place] [id number] Surgeon General Surgery 02/07/25 Transmissions Systems Operator Relationship Specialty Start Date End Date Fede Davis MD [address] [facility] [address] [place], [place] [id number] PCP - General Family Medicine 01/08/25 Marco Antonio Soto MD [address] [place] [address] [address] [place], [place] [id number] Surgeon General Surgery 02/07/25 Transmissions Systems Operator Relationship Specialty Start Date End Date Fede Davis MD [address] [facility] [address] [place] [address] PCP - General Family Medicine 01/08/25 Marco Antonio Soto MD [address] [facility] [address] [place], [place] [id number] Surgeon General Surgery 02/07/25 Transmissions Systems Operator Relationship Specialty Start Date End Date Fede Davis MD [address] [place] [address] [address] [place] [address] PCP - General Family Medicine 01/08/25 Marco Antonio Soto MD [address] [place] [address] [address] [place], [place] [id number] Surgeon General Surgery 02/07/25 Transmissions Systems Operator Relationship Specialty Start Date End Date Fede Davis MD [address] [place] [address] [address] [place] [address] PCP - General Family Medicine 01/08/25 Marco Antonio Soto MD [address] [place] [address] [address] [place], [place] [id number] Surgeon General Surgery 02/07/25 Transmissions Systems Operator Relationship Specialty Start Date End Date Fede Davis MD [address] [place] [address] [address] [place] [address] PCP - General Family Medicine 01/08/25 Marco Antonio Soto MD [address] [place] [address] [address] [place], [place] [id number] Surgeon General Surgery 02/07/25 Transmissions Systems Operator Relationship Specialty Start Date End Date Fede Davis MD [address] [place] [address] [address] [place] [address] PCP - General Family Medicine 01/08/25 Marco Antonio Soto MD [address] [place] [address] [address] [place] [address] Surgeon General Surgery 02/07/25 Transmissions Systems Operator Relationship Specialty Start Date End Date Fede Davis MD [address] [place] [address] [address] [place], [place] [address] PCP - General Family Medicine 01/08/25 Marco Antonio Soto MD [address] [place] [address] [address] [place], [place] [id number] Surgeon General Surgery 02/07/25 Transmissions Systems Operator Relationship Specialty Start Date End Date Fede Davis MD [address] [place] [address] [address] [facility] [place] [address]191 PCP - General Internal Medicine 06/19/24 Anibal Thompson DO Neurology 12/22/22 Transmissions Systems Operator Relationship Specialty Start Date End Date Fede Davis MD [address] [place] [address] [address] [place] [address] PCP - General Family Medicine 01/08/25 Marco Antonio Soto MD [address] [place] [address] [address] [place], [place] [id number] Surgeon General Surgery 02/07/25 Transmissions Systems Operator Relationship Specialty Start Date End Date Fede Davis MD [address] [place] [address] [address] [place] [address] PCP - General Family Medicine 01/08/25 Marco Antonio Soto MD [address] [place] [address] [address] [place], [place] [id number] Surgeon General Surgery 02/07/25 Transmissions Systems Operator Relationship Specialty Start Date End Date Fede Davis MD [address] [place] [address] [address] [place], [place] [address] PCP - General Internal Medicine 06/19/24 Anibal ThompsonrtDO Neurology 12/22/22 Transmissions Systems Operator Relationship Specialty Start Date End Date Fede Davis MD [address] [facility] [address] [place], [place] [address] PCP - General Family Medicine 01/08/25 Marco Antonio Soto MD [address] [place] [address] [address] [place], [place] [id number] Surgeon General Surgery 02/07/25 Transmissions Systems Operator Relationship Specialty Start Date End Date Fede Davis MD [address] [facility] [address] [place], [place] [address] PCP - General Family Medicine 01/08/25 Marco Antonio Soto MD [address] [place] [address] [address] [place], [place] [id number] Surgeon General Surgery 02/07/25 Transmissions Systems Operator Relationship Specialty Start Date End Date Fede Davis MD [address] [facility] [address] [place] [address] PCP - General Family Medicine 01/08/25 Marco Antonio Soto MD [address] [place] [address] [address] [place], [place] [id number] Surgeon General Surgery 02/07/25 Transmissions Systems Operator Relationship Specialty Start Date End Date Fede Davis MD [address] [facility] [address] [place], [place] [address] PCP - General Family Medicine 01/08/25 Marco Antonio Soto MD [address] [place] [address] [address] [place], [place] [id number] Surgeon General Surgery 02/07/25 Transmissions Systems Operator Relationship Specialty Start Date End Date Fede Davis MD [address] [place] [address] [address] [place], [place] [id number] PCP - General Family Medicine 01/08/25 Marco Antonio Soto MD [address] [place] [address] [address] [place], [place] [id number] Surgeon General Surgery 02/07/25 Team Status: Active Member Role/Relationship Status Dates Fede Davis MD Primary Care Provider Active Team Status: Inactive Member Role/Relationship Status Dates Fede Davis MD Primary Care Provider Active St art: July 04, 2025 End: July 04, 2025 Dr. Uziel Mina , DO Emergency Provider Active Start: July 04, 2025 End: July 04, 2025 Transmissions Systems Operator Relationship Specialty Start Date End Date Fede Davis MD [address] [facility] [address] [place], [place] [id number] PCP - General Family Medicine 01/08/25 Marco Antonio Soto MD [address] [place] [address] [address] [place], [place] [id number] Surgeon General Surgery 02/07/25 INFORMATION SOURCE (unrecogn ized section and content) DATE CREATED AUTHOR 08/22/2022 [facility] DATE CREATED AUTHOR AUTHOR'S ORGANIZ ATION 01/28/2023 [facility]) DATE CREATED AUTHOR AUTHOR'S ORGANIZ ATION 04/02/2023 [facility] DATE CREATED AUTHOR AUTHOR'S ORGANIZ ATION 09/09/2024 [facility] DATE CREATED AUTHOR AUTHOR'S ORGANIZ ATION 01/31/2025 [facility] DATE CREATED AUTHOR AUTHOR'S ORGANIZ ATION 02/06/2025 [facility] DATE CREATED AUTHOR AUTHOR'S ORGANIZ ATION 05/24/2025 [facility] DATE CREATED AUTHOR AUTHOR'S ORGANIZ ATION 06/09/2025 [facility] DATE CREATED AUTHOR AUTHOR'S ORGANIZ ATION 06/23/2025 [facility] Care Team (unrecognized sect ion and content) Care Team Related Persons Name: JOSLYN NGUYEN Care Team Personnel Name: PHYSICIAN, NONE Position: Physician Member Role: Primary Care Physician Care Team Related Persons Name: JOSLYN NGUYEN Source Comments (unrecognize d section and content) In the event this informatio n is protected by the Federal Confidentiality of Alcohol and Drug Abuse Patient Records regulations: The Federal rules restrict any use of the information to criminally investigate or prosecute any alcohol or drug abuse patient.[facility] the event this information is protected by the Federal Confidentiality of Alcohol and Drug Abuse Patient Records regulations: The Federal rules restrict any use of the information to criminally investigate or prosecute any alcohol or drug abuse patient.[facility] HospitalIn the event this information is protected by the Federal Confidentiality of Alcohol and Drug Abuse Patient Records regulations: The Federal rules restrict any use of the information to criminally investigate or prosecute any alcohol or drug abuse patient.[facility] HospitalIn the event this information is protected by the Federal Confidentiality of Alcohol and Drug Abuse Patient Records regulations: The Federal rules restrict any use of the information to criminally investigate or prosecute any alcohol or drug abuse patient.[facility] HospitalIn the event this information is protected by the Federal Confidentiality of Alcohol and Drug Abuse Patient Records regulations: The Federal rules restrict any use of the information to criminally investigate or prosecute any alcohol or drug abuse patient.[facility] HospitalIn the event this information is protected by the Federal Confidentiality of Alcohol and Drug Abuse Patient Records regulations: The Federal rules restrict any use of the information to criminally investigate or prosecute any alcohol or drug abuse patient.[facility] HospitalIn the event this information is protected by the Federal Confidentiality of Alcohol and Drug Abuse Patient Records regulations: The Federal rules restrict any use of the information to criminally investigate or prosecute any alcohol or drug abuse patient.[facility] HospitalIn the event this information is protected by the Federal Confidentiality of Alcohol and Drug Abuse Patient Records regulations: The Federal rules restrict any use of the information to criminally investigate or prosecute any alcohol or drug abuse patient.[facility] HospitalIn the event this information is protected by the Federal Confidentiality of Alcohol and Drug Abuse Patient Records regulations: The Federal rules restrict any use of the information to criminally investigate or prosecute any alcohol or drug abuse patient.[facility] HospitalIn the event this information is protected by the Federal Confidentiality of Alcohol and Drug Abuse Patient Records regulations: The Federal rules restrict any use of the information to criminally investigate or prosecute any alcohol or drug abuse patient.[facility] HospitalIn the event this information is protected by the Federal Confidentiality of Alcohol and Drug Abuse Patient Records regulations: The Federal rules restrict any use of the information to criminally investigate or prosecute any alcohol or drug abuse patient.[facility] HospitalIn the event this information is protected by the Federal Confidentiality of Alcohol and Drug Abuse Patient Records regulations: The Federal rules restrict any use of the information to criminally investigate or prosecute any alcohol or drug abuse patient.[facility] HospitalIn the event this information is protected by the Federal Confidentiality of Alcohol and Drug Abuse Patient Records regulations: The Federal rules restrict any use of the information to criminally investigate or prosecute any alcohol or drug abuse patient.[facility] HospitalIn the event this information is protected by the Federal Confidentiality of Alcohol and Drug Abuse Patient Records regulations: The Federal rules restrict any use of the information to criminally investigate or prosecute any alcohol or drug abuse patient.[facility] HospitalIn the event this information is protected by the Federal Confidentiality of Alcohol and Drug Abuse Patient Records regulations: The Federal rules restrict any use of the information to criminally investigate or prosecute any alcohol or drug abuse patient.[facility] HospitalIn the event this information is protected by the Federal Confidentiality of Alcohol and Drug Abuse Patient Records regulations: The Federal rules restrict any use of the information to criminally investigate or prosecute any alcohol or drug abuse patient.[facility] HospitalIn the event this information is protected by the Federal Confidentiality of Alcohol and Drug Abuse Patient Records regulations: The Federal rules restrict any use of the information to criminally investigate or prosecute any alcohol or drug abuse patient.[facility] HospitalIn the event this information is protected by the Federal Confidentiality of Alcohol and Drug Abuse Patient Records regulations: The Federal rules restrict any use of the information to criminally investigate or prosecute any alcohol or drug abuse patient.[facility] HospitalIn the event this information is protected by the Federal Confidentiality of Alcohol and Drug Abuse Patient Records regulations: The Federal rules restrict any use of the information to criminally investigate or prosecute any alcohol or drug abuse patient.[facility] HospitalIn the event this information is protected by the Federal Confidentiality of Alcohol and Drug Abuse Patient Records regulations: The Federal rules restrict any use of the information to criminally investigate or prosecute any alcohol or drug abuse patient.[facility] HospitalIn the event this information is protected by the Federal Confidentiality of Alcohol and Drug Abuse Patient Records regulations: The Federal rules restrict any use of the information to criminally investigate or prosecute any alcohol or drug abuse patient.[facility] HospitalIn the event this information is protected by the Federal Confidentiality of Alcohol and Drug Abuse Patient Records regulations: The Federal rules restrict any use of the information to criminally investigate or prosecute any alcohol or drug abuse patient.[facility]In the event this information is protected by the Federal Confidentiality of Alcohol and Drug Abuse Patient Records regulations: The Federal rules restrict any use of the information to criminally investigate or prosecute any alcohol or drug abuse patient.[facility] HospitalIn the event this information is protected by the Federal Confidentiality of Alcohol and Drug Abuse Patient Records regulations: The Federal rules restrict any use of the information to criminally investigate or prosecute any alcohol or drug abuse patient.[facility] HospitalIn the event this information is protected by the Federal Confidentiality of Alcohol and Drug Abuse Patient Records regulations: The Federal rules restrict any use of the information to criminally investigate or prosecute any alcohol or drug abuse patient.[facility] HospitalIn the event this information is protected by the Federal Confidentiality of Alcohol and Drug Abuse Patient Records regulations: The Federal rules restrict any use of the information to criminally investigate or prosecute any alcohol or drug abuse patient.[facility] HospitalIn the event this information is protected by the Federal Confidentiality of Alcohol and Drug Abuse Patient Records regulations: The Federal rules restrict any use of the information to criminally investigate or prosecute any alcohol or drug abuse patient.[facility] HospitalIn the event this information is protected by the Federal Confidentiality of Alcohol and Drug Abuse Patient Records regulations: The Federal rules restrict any use of the information to criminally investigate or prosecute any alcohol or drug abuse patient.[facility] HospitalIn the event this information is protected by the Federal Confidentiality of Alcohol and Drug Abuse Patient Records regulations: The Federal rules restrict any use of the information to criminally investigate or prosecute any alcohol or drug abuse patient.[facility] HospitalIn the event this information is protected by the Federal Confidentiality of Alcohol and Drug Abuse Patient Records regulations: The Federal rules restrict any use of the information to criminally investigate or prosecute any alcohol or drug abuse patient.[facility] HospitalIn the event this information is protected by the Federal Confidentiality of Alcohol and Drug Abuse Patient Records regulations: The Federal rules restrict any use of the information to criminally investigate or prosecute any alcohol or drug abuse patient.[facility] HospitalIn the event this information is protected by the Federal Confidentiality of Alcohol and Drug Abuse Patient Records regulations: The Federal rules restrict any use of the information to criminally investigate or prosecute any alcohol or drug abuse patient.[facility] HospitalIn the event this information is protected by the Federal Confidentiality of Alcohol and Drug Abuse Patient Records regulations: The Federal rules restrict any use of the information to criminally investigate or prosecute any alcohol or drug abuse patient.[facility] HospitalIn the event this information is protected by the Federal Confidentiality of Alcohol and Drug Abuse Patient Records regulations: The Federal rules restrict any use of the information to criminally investigate or prosecute any alcohol or drug abuse patient.[facility] HospitalIn the event this information is protected by the Federal Confidentiality of Alcohol and Drug Abuse Patient Records regulations: The Federal rules restrict any use of the information to criminally investigate or prosecute any alcohol or drug abuse patient.[facility] HospitalIn the event this information is protected by the Federal Confidentiality of Alcohol and Drug Abuse Patient Records regulations: The Federal rules restrict any use of the information to criminally investigate or prosecute any alcohol or drug abuse patient.[facility] HospitalIn the event this information is protected by the Federal Confidentiality of Alcohol and Drug Abuse Patient Records regulations: The Federal rules restrict any use of the information to criminally investigate or prosecute any alcohol or drug abuse patient.[facility] HospitalIn the event this information is protected by the Federal Confidentiality of Alcohol and Drug Abuse Patient Records regulations: The Federal rules restrict any use of the information to criminally investigate or prosecute any alcohol or drug abuse patient.[facility] HospitalIn the event this information is protected by the Federal Confidentiality of Alcohol and Drug Abuse Patient Records regulations: The Federal rules restrict any use of the information to criminally investigate or prosecute any alcohol or drug abuse patient.[facility] HospitalIn the event this information is protected by the Federal Confidentiality of Alcohol and Drug Abuse Patient Records regulations: The Federal rules restrict any use of the information to criminally investigate or prosecute any alcohol or drug abuse patient.[facility] HospitalIn the event this information is protected by the Federal Confidentiality of Alcohol and Drug Abuse Patient Records regulations: The Federal rules restrict any use of the information to criminally investigate or prosecute any alcohol or drug abuse patient.[facility] HospitalIn the event this information is protected by the Federal Confidentiality of Alcohol and Drug Abuse Patient Records regulations: The Federal rules restrict any use of the information to criminally investigate or prosecute any alcohol or drug abuse patient.[facility] HospitalIn the event this information is protected by the Federal Confidentiality of Alcohol and Drug Abuse Patient Records regulations: The Federal rules restrict any use of the information to criminally investigate or prosecute any alcohol or drug abuse patient.[facility] HospitalIn the event this information is protected by the Federal Confidentiality of Alcohol and Drug Abuse Patient Records regulations: The Federal rules restrict any use of the information to criminally investigate or prosecute any alcohol or drug abuse patient.[facility] HospitalIn the event this information is protected by the Federal Confidentiality of Alcohol and Drug Abuse Patient Records regulations: The Federal rules restrict any use of the information to criminally investigate or prosecute any alcohol or drug abuse patient.[facility] HospitalIn the event this information is protected by the Federal Confidentiality of Alcohol and Drug Abuse Patient Records regulations: The Federal rules restrict any use of the information to criminally investigate or prosecute any alcohol or drug abuse patient.[facility] HospitalIn the event this information is protected by the Federal Confidentiality of Alcohol and Drug Abuse Patient Records regulations: The Federal rules restrict any use of the information to criminally investigate or prosecute any alcohol or drug abuse patient.[facility] HospitalIn the event this information is protected by the Federal Confidentiality of Alcohol and Drug Abuse Patient Records regulations: The Federal rules restrict any use of the information to criminally investigate or prosecute any alcohol or drug abuse patient.[facility] HospitalIn the event this information is protected by the Federal Confidentiality of Alcohol and Drug Abuse Patient Records regulations: The Federal rules restrict any use of the information to criminally investigate or prosecute any alcohol or drug abuse patient.[facility] HospitalIn the event this information is protected by the Federal Confidentiality of Alcohol and Drug Abuse Patient Records regulations: The Federal rules restrict any use of the information to criminally investigate or prosecute any alcohol or drug abuse patient.[facility] HospitalIn the event this information is protected by the Federal Confidentiality of Alcohol and Drug Abuse Patient Records regulations: The Federal rules restrict any use of the information to criminally investigate or prosecute any alcohol or drug abuse patient.[facility] HospitalIn the event this information is protected by the Federal Confidentiality of Alcohol and Drug Abuse Patient Records regulations: The Federal rules restrict any use of the information to criminally investigate or prosecute any alcohol or drug abuse patient.[facility] HospitalIn the event this information is protected by the Federal Confidentiality of Alcohol and Drug Abuse Patient Records regulations: The Federal rules restrict any use of the information to criminally investigate or prosecute any alcohol or drug abuse patient.[facility] HospitalIn the event this information is protected by the Federal Confidentiality of Alcohol and Drug Abuse Patient Records regulations: The Federal rules restrict any use of the information to criminally investigate or prosecute any alcohol or drug abuse patient.[facility] HospitalIn the event this information is protected by the Federal Confidentiality of Alcohol and Drug Abuse Patient Records regulations: The Federal rules restrict any use of the information to criminally investigate or prosecute any alcohol or drug abuse patient.[facility] HospitalIn the event this information is protected by the Federal Confidentiality of Alcohol and Drug Abuse Patient Records regulations: The Federal rules restrict any use of the information to criminally investigate or prosecute any alcohol or drug abuse patient.[facility] HospitalIn the event this information is protected by the Federal Confidentiality of Alcohol and Drug Abuse Patient Records regulations: The Federal rules restrict any use of the information to criminally investigate or prosecute any alcohol or drug abuse patient.[facility] HospitalIn the event this information is protected by the Federal Confidentiality of Alcohol and Drug Abuse Patient Records regulations: The Federal rules restrict any use of the information to criminally investigate or prosecute any alcohol or drug abuse patient.[facility] HospitalIn the event this information is protected by the Federal Confidentiality of Alcohol and Drug Abuse Patient Records regulations: The Federal rules restrict any use of the information to criminally investigate or prosecute any alcohol or drug abuse patient.[facility] HospitalIn the event this information is protected by the Federal Confidentiality of Alcohol and Drug Abuse Patient Records regulations: The Federal rules restrict any use of the information to criminally investigate or prosecute any alcohol or drug abuse patient.[facility] HospitalIn the event this information is protected by the Federal Confidentiality of Alcohol and Drug Abuse Patient Records regulations: The Federal rules restrict any use of the information to criminally investigate or prosecute any alcohol or drug abuse patient.[facility] HospitalIn the event this information is protected by the Federal Confidentiality of Alcohol and Drug Abuse Patient Records regulations: The Federal rules restrict any use of the information to criminally investigate or prosecute any alcohol or drug abuse patient.[facility] HospitalIn the event this information is protected by the Federal Confidentiality of Alcohol and Drug Abuse Patient Records regulations: The Federal rules restrict any use of the information to criminally investigate or prosecute any alcohol or drug abuse patient.[facility] HospitalIn the event this information is protected by the Federal Confidentiality of Alcohol and Drug Abuse Patient Records regulations: The Federal rules restrict any use of the information to criminally investigate or prosecute any alcohol or drug abuse patient.[facility] HospitalIn the event this information is protected by the Federal Confidentiality of Alcohol and Drug Abuse Patient Records regulations: The Federal rules restrict any use of the information to criminally investigate or prosecute any alcohol or drug abuse patient.[facility] HospitalIn the event this information is protected by the Federal Confidentiality of Alcohol and Drug Abuse Patient Records regulations: The Federal rules restrict any use of the information to criminally investigate or prosecute any alcohol or drug abuse patient.[facility] HospitalIn the event this information is protected by the Federal Confidentiality of Alcohol and Drug Abuse Patient Records regulations: The Federal rules restrict any use of the information to criminally investigate or prosecute any alcohol or drug abuse patient.[facility] HospitalIn the event this information is protected by the Federal Confidentiality of Alcohol and Drug Abuse Patient Records regulations: The Federal rules restrict any use of the information to criminally investigate or prosecute any alcohol or drug abuse patient.[facility] HospitalIn the event this information is protected by the Federal Confidentiality of Alcohol and Drug Abuse Patient Records regulations: The Federal rules restrict any use of the information to criminally investigate or prosecute any alcohol or drug abuse patient.[facility] HospitalIn the event this information is protected by the Federal Confidentiality of Alcohol and Drug Abuse Patient Records regulations: The Federal rules restrict any use of the information to criminally investigate or prosecute any alcohol or drug abuse patient.[facility] HospitalIn the event this information is protected by the Federal Confidentiality of Alcohol and Drug Abuse Patient Records regulations: The Federal rules restrict any use of the information to criminally investigate or prosecute any alcohol or drug abuse patient.[facility] HospitalIn the event this information is protected by the Federal Confidentiality of Alcohol and Drug Abuse Patient Records regulations: The Federal rules restrict any use of the information to criminally investigate or prosecute any alcohol or drug abuse patient.[facility]In the event this information is protected by the Federal Confidentiality of Alcohol and Drug Abuse Patient Records regulations: The Federal rules restrict any use of the information to criminally investigate or prosecute any alcohol or drug abuse patient.[facility] PRN Active and Recently Administ ered Medications (unrecognized section and content) Medication Order 02/15/2023 02/16/2023 02/17/2023 acetaminophen 650 mg tab(s) (TYLENOL) 650 mg, ORAL, EVERY 4 HOURS NEEDED, Starting on Wed02/17/23 at 1414, Until Breana 02/18/23 at 0303, Mild Pain (1-3) - Enteral, If ordered PRN for pain, patient/guardian may elect to receive this medication for higher pain levels INSTEAD of the opioid, if preferred: Yes 1422 (Given - Provid er: Ivonne Costello RN) lidocaine (PF) 10 mg/mL (1 %) 10-100 mg injection (XYLOCAINE) 10-100 mg (1-10 mL), INTRADERMAL, DIRECTED NEEDED, 1 dose, Starting on Wed02/17/23 at 1134, Until Breana 02/18/23 at 0303, See admin instructions, Procedure use only - PICC/Midline placement, Procedure use only - PICC/Midline placement lidocaine (PF) 10 mg/mL (1 %) injection (XYLOCAINE) SUBCUTANEOUS, X (OR/PROCEDURE) PRN, Starting on Wed02/17/23 at 1308, Until Breana 02/18/23 at 0303, Intraprocedure 1308 (Given - Provid er: Tamiko Norton PA-C - Comment: Lumbar) lidocaine (PF) 20 mg/mL (2 %) injection (XYLOCAINE) SUBCUTANEOUS, X (OR/PROCEDURE) PRN, Starting on Wed02/17/23 at 1340, Until Breana 02/18/23 at 0303, Intraprocedure 1340 (Given - Provid er: Tamiko Norton PA-C - Comment: Lumbar) PRN Medication Order 07/26/2023 07/27/2023 07/28/2023 lidocaine (PF) 10 mg/mL (1 %) 10-100 mg injection (XYLOCAINE) (COMPLETED) 10-100 mg (1-10 mL), INTRADERMAL, DIRECTED NEEDED, 1 dose, Starting on Wed07/28/23 at 1127, Until Wed07/28/23 at 1243, See admin instructions, Procedure use only - PICC/Midline placement, Procedure use only - PICC/Midline placement, Preprocedure 1243 (Given - Provid er: Yas Lucero RN - Comment: given by Ingris Aquino RN) Scheduled Medication Order 02/09/2025 02/10/2025 02/11/2025 morphine injection 4 mg (COMPLETED) 4 mg, IntraVENous, Once, On 02/11/25 at 1540, For 1 dose, If oral and injectable narcotics ordered, use oral first and only use injectable if oral is ineffective or cannot take oral. Do Not give oral and injectable within 1 hour of each other unless specifically ordered. 1548 (Given - Provid er: Roge Rene, JUVENTINO) morphine injection 4 mg (COMPLETED) 4 mg, IntraVENous, Once, On 02/11/25 at 1700, For 1 dose, If oral and injectable narcotics ordered, use oral first and only use injectable if oral is ineffective or cannot take oral. Do Not give oral and injectable within 1 hour of each other unless specifically ordered. 1705 (Given - Provid er: Anibal Syed RN) Scheduled Medication Order 02/10/2025 02/11/2025 02/12/2025 HYDROmorphone (Dilaudid) injection 1 mg (COMPLETED) 1 mg, IntraVENous, Once, On 02/12/25 at 1015, For 1 dose, If oral and injectable narcotics ordered, use oral first and only use injectable if oral is ineffective or cannot take oral. Do Not give oral and injectable within 1 hour of each other unless specifically ordered. 1021 (Given - Provid er: Meka Frank RN) ketorolac (Toradol) injection 30 mg (COMPLETED) 30 mg, IntraVENous, Once, On Wed02/12/25 at 1015, For 1 dose 1020 (Given - Provid er: Meka Frank RN) morphine injection 4 mg (COMPLETED) 4 mg, IntraVENous, Once, On Wed02/12/25 at 0815, For 1 dose, If oral and injectable narcotics ordered, use oral first and only use injectable if oral is ineffective or cannot take oral. Do Not give oral and injectable within 1 hour of each other unless specifically ordered. 0821 (Given - Provid er: Rebecca Boykin RN) ondansetron (Zofran) injection 4 mg (COMPLETED) 4 mg, IntraVENous, Once, On Wed02/12/25 at 0815, For 1 dose 0819 (Given - Provid er: Rebecca Boykin RN) PRN Medication Order 02/10/2025 02/11/2025 02/12/2025 iopamidol (Isovue-370) 76 % injection 75 mL (COMPLETED) 75 mL, IntraVENous, IMG once PRN, contrast, Starting on Wed02/12/25 at 0854, For 1 dose 0909 (Given - Provid er: Marina Ro) Continuous Medication Order 03/10/2025 03/11/2025 03/12/2025 sodium chloride 0.9 % infusion 50 mL/hr, IntraVENous, Continuous, Starting on Wed03/12/25 at 0815, Preprocedure 0900 (New Bag - Prov ider: KRISHAN Barr CRNA)0920 (Anesthesia Volume Adjustment - Provider: KRISHAN Barr CRNA) PRN Medication Order 03/10/2025 03/11/2025 03/12/2025 ondansetron (Zofran) injection 4 mg 4 mg, IntraVENous, Once PRN, nausea, vomiting, Starting on Wed03/12/25 at 0804, For 1 dose, Preprocedure Scheduled Medication Order 03/26/2025 03/27/2025 03/28/2025 acetaminophen (Tylenol) tablet 650 mg (COMPLETED) 650 mg, Oral, Once, On Wed03/28/25 at 1620, For 1 dose, Maximum dose of acetaminophen is 4000 mg from all sources in 24 hours. 1655 (Given - Provid er: Anibal Syed RN) HYDROmorphone (Dilaudid) injection 0.5 mg (COMPLETED) 0.5 mg, IntraVENous, Once, On Wed03/28/25 at 1850, For 1 dose 191 (Given - Provid er: Rebecca Boykin RN) morphine injection 4 mg (COMPLETED) 4 mg, IntraVENous, Once, On Wed03/28/25 at 1620, For 1 dose 1711 (Given - Provid er: Anibal Syed RN) orphenadrine (Norflex) injection 60 mg (COMPLETED) 60 mg, IntraMUSCular, Once, On Wed03/28/25 at 1620, For 1 dose 1656 (Given - Provid er: Anibal Syed RN) PRN Medication Order 03/26/2025 03/27/2025 03/28/2025 iopamidol (Isovue-370) 76 % injection 75 mL (COMPLETED) 75 mL, IntraVENous, IMG once PRN, contrast, Starting on Wed03/28/25 at 1737, For 1 dose 1745 (Given - Provid er: Amanda Monteiro, RT (R)) Scheduled Medication Order 05/01/2025 05/02/2025 05/03/2025 diazePAM (Valium) tablet 5 mg (COMPLETED) 5 mg, Oral, Once, On Breana 05/03/25 at 0925, For 1 dose 0928 (Given - Provid er: Rebecca Boykin RN) oxyCODONE (Roxicodone) immediate release tablet 5 mg (COMPLETED) 5 mg, Oral, Once, On Breana 05/03/25 at 0925, For 1 dose 0929 (Given - Provid er: Rebecca Boykin RN) Scheduled Medication Order 05/20/2025 05/21/2025 05/22/2025 acetaminophen (Ofirmev) IVPB 1,000 mg (CANCELED) 1,000 mg, IntraVENous, at 400 mL/hr, Administer over 15 Minutes, Every 8 hours, First dose on Wed05/21/25 at 0015, Phase II/On Unit 0017 (New Bag - Provider: Jess Locke, HARSHAL)0056 (Stopped - Provider: Jess Locke, HARSHAL)0743 (New Bag - Provider: Alaina Avalos, HARSHAL)0815 (Stopped - Provider: Alaina Avalos, HARSHAL) acetaminophen (Ofirmev) IVPB 1,000 mg (CANCELED) 1,000 mg, IntraVENous, at 400 mL/hr, Administer over 15 Minutes, Every 6 hours scheduled (4 times per day), First dose (after last modification) on Wed05/21/25 at 1800, Phase II/On Unit 1655 (New Bag - Provider: Alaina Avalos RN)1750 (Stopped - Provider: Alaina Avalos, RN) 0004 (New Bag - Provider: Jess Erazo RN)0142 (Stopped - Provider: Jess Erazo RN)0526 (New Bag - Provider: Keyana Silva RN)0645 (Stopped - Provider: Jess Erazo, HARSHAL) acetaminophen (Tylenol) tablet 1,000 mg 1,000 mg, Oral, Every 8 hours scheduled (3 times per day), First dose on Wed05/22/25 at 0845, Maximum dose of acetaminophen is 4000 mg from all sources in 24 hours. 0931 (Given - Provider: Lidia Henry RN) amitriptyline (Elavil) tablet 50 mg 50 mg, Oral, Nightly, First dose (after last modification) on Wed05/21/25 at 2100 1999 (Given - Provider: Jess Erazo, HARSHAL) ARIPiprazole (Abilify) tablet 10 mg 10 mg, Oral, Daily, First dose (after last modification) on Wed05/21/25 at 0045, Indications: Anxiety 005 (Given - Provider: Jess Locke RN)1999 (Given - Provider: Jess Erazo, HARSHAL) dicyclomine (Bentyl) injection 20 mg (COMPLETED) 20 mg, IntraMUSCular, Once, On Wed05/20/25 at 1905, For 1 dose 1908 (Given - Provider: Ginger Willson RN) DULoxetine (Cymbalta) DR capsule 60 mg 60 mg, Oral, 2 times daily, First dose on Wed05/21/25 at 0015, Do not crush or chew., Indications: Major Depressive Disorder 0056 (Given - Provider: Jess Locke RN)0933 (Given - Provider: Alaina Avalos RN)1999 (Given - Provider: Jess Erazo RN) 0832 (Given - Provider: Lidia Henry, HARSHAL) HYDROmorphone (Dilaudid) injection 0.5 mg (COMPLETED) 0.5 mg, IntraVENous, Once, On Wed05/20/25 at 1950, For 1 dose, If oral and injectable narcotics ordered, use oral first and only use injectable if oral is ineffective or cannot take oral. Do Not give oral and injectable within 1 hour of each other unless specifically ordered. 1999 (Given - Provider: Ginger Willson RN) ketorolac (Toradol) injection 15 mg (COMPLETED) 15 mg, IntraVENous, Once, On Wed05/20/25 at 1905, For 1 dose 1907 (Given - Provider: Ginger Willson RN) ketorolac (Toradol) injection 15 mg (COMPLETED) 15 mg, IntraVENous, Every 6 hours scheduled (4 times per day), First dose on Wed05/21/25 at 0700, For 4 doses 0742 (Given - Provider: Alaina Avalos RN)1211 (Given - Provider: Alaina Avalos RN)1754 (Given - Provider: Alaina Avalos RN) 0004 (Given - Provider: Jess Erazo, HARSHAL) lacosamide (Vimpat) tablet 200 mg 200 mg, Oral, 2 times daily, First dose on Wed05/21/25 at 0015, Swallow tablets whole; do not divide., Indications: Tonic Clonic Epilepsy 54 (Given - Provider: Jess Locke RN)0933 (Given - Provider: Alaina Avalos RN)1999 (Given - Provider: Jess Erazo RN) 0832 (Given - Provider: Lidia Henry, HARSHAL) methocarbamol (Robaxin) tablet 500 mg (CANCELED) 500 mg, Oral, Every 6 hours scheduled (4 times per day), First dose on Wed05/21/25 at 0015, Phase II/On Unit 0013 (Given - Provider: Jess Locke RN)0620 (Given - Provider: Jess Locke RN)1211 (Given - Provider: Alaina Avalos RN) methocarbamol (Robaxin) tablet 750 mg 750 mg, Oral, Every 6 hours scheduled (4 times per day), First dose (after last modification) on Wed05/21/25 at 1800, Phase II/On Unit 1754 (Given - Provider: Alaina Avalos RN) 0004 (Given - Provider: Jess Erazo, HARSHAL)0526 (Given - Provider: Keyana Silva RN) morphine injection 4 mg (COMPLETED) 4 mg, IntraVENous, Once, On 05/20/25 at 1815, For 1 dose, If oral and injectable narcotics ordered, use oral first and only use injectable if oral is ineffective or cannot take oral. Do Not give oral and injectable within 1 hour of each other unless specifically ordered. 182 (Given - Provider: Ginger Willson, HARSHAL) ondansetron (Zofran) injection 4 mg (COMPLETED) 4 mg, IntraVENous, Once, On 05/20/25 at 1815, For 1 dose 182 (Given - Provider: Ginger Willson, HARHSAL) sodium chloride 0.9 % bolus 1,000 mL (COMPLETED) 1,000 mL, IntraVENous, at 1,000 mL/hr, Administer over 1 Hours, Once, On 05/20/25 at 1815, For 1 dose 1822 (New Bag - Provider: Ginger Willson, HARSHAL)192 (Stopped - Provider: Ginger Willson, HARSHAL) PRN Medication Order 05/20/2025 05/21/2025 05/22/2025 HYDROmorphone (Dilaudid) injection 0.25 mg(Linked Group 1) 0.25 mg, IntraVENous, Every 4 hours PRN, moderate pain (4-6), Starting on Wed05/21/25 at 0241, Breakthrough pain. If oral and IV narcotics ordered, use oral first and only use IV if oral is ineffective or cannot take oral. Do Not give oral and IV within 1 hour of each other unless specifically ordered. 0301 (See Alternative - Provider: Jess Locke RN)0742 (See Alternative - Provider: Alaina Avalos, HARSHAL)1211 (See Alternative - Provider: Alaina Avalos, HARSHAL)1543 (See Alternative - Provider: Alaina Avalos, HARSHAL)1999 (See Alternative - Provider: Jess Erazo, HARSHAL) HYDROmorphone (Dilaudid) injection 0.5 mg (CANCELED) 0.5 mg, IntraVENous, Every 5 min PRN, severe pain (7-10), Starting on Wed05/20/25 at 2317, For 4 doses, Recovery (only), Phase I and Phase II- Initial therapy for severe pain (7-10). Restricted to a 90 minute time frame starting when the patient can verbally state their pain score. If after 2 doses the pain score does not decrease by more than one point, then call the provider. If oral meds are utilized, do not return to initial therapy medications. 2320 (Given - Provider: Luna Malave RN) HYDROmorphone (Dilaudid) injection 0.5 mg(Linked Group 1) 0.5 mg, IntraVENous, Every 4 hours PRN, severe pain (7-10), Starting on Wed05/21/25 at 0241, Breakthrough pain. If oral and IV narcotics ordered, use oral first and only use IV if oral is ineffective or cannot take oral. Do Not give oral and IV within 1 hour of each other unless specifically ordered. 0301 (Given - Provider: Jess Locke RN)0742 (Given - Provider: Alaina Avalos, HARSHAL)1211 (Given - Provider: Alaina Avalos, RN)1543 (Given - Provider: Alaina Avalos, HARSHAL)1999 (Given - Provider: Jess Erazo, HARSHAL) naloxone (Narcan) injection 0.4 mg 0.4 mg, IntraVENous, Every 5 min PRN, opioid reversal, respiratory depression, Starting on Wed05/21/25 at 0002, +++ For RR <10, pinpoint pupils, over sedation for opioid reversal - MUST notify profile mill operator tape control provider immediately after first dose, may give IM or SQ if no IV access +++ ondansetron (Zofran) injection 4 mg(Linked Group 2) 4 mg, IntraVENous, Every 6 hours PRN, nausea, vomiting, Starting on Wed05/21/25 at 0002, Phase II/On Unit, Give IV if patient is unable to take orally. 0742 (Given - Provider: Alaina Avalos, HARSHAL) ondansetron ODT (Zofran-ODT) disintegrating tablet 4 mg(Linked Group 2) 4 mg, Oral, Every 8 hours PRN, nausea, vomiting, Starting on Wed05/21/25 at 0002, Phase II/On Unit, Patient should allow tablet to dissolve on tongue. Do not remove from blister pack until just before administering. 0742 (See Alternative - Provider: Alaina Avalos RN) oxyCODONE (Roxicodone) immediate release tablet 10 mg(Linked Group 3) 10 mg, Oral, Every 4 hours PRN, severe pain (7-10), Starting on Wed05/21/25 at 0002, Phase II/On Unit 0013 (Given - Provider: Jess Locke RN)0437 (Given - Provider: Jess Locke RN)0933 (Given - Provider: Alaina Avalos RN)1333 (Given - Provider: Alaina Avalos RN)1754 (Given - Provider: Alaina Avalos RN) 0004 (Given - Provider: Jess Erazo, HARSHAL)0525 (Given - Provider: Keyana Silva RN)0931 (Given - Provider: Lidia Henry, HARSHAL) oxyCODONE (Roxicodone) immediate release tablet 5 mg(Linked Group 3) 5 mg, Oral, Every 4 hours PRN, moderate pain (4-6), Starting on Wed05/21/25 at 0002, Phase II/On Unit 0013 (See Alternative - Provider: Jess Locke RN)0437 (See Alternative - Provider: Jess Locke RN)0933 (See Alternative - Provider: Alaina Avalos RN)1333 (See Alternative - Provider: Alaina Avalos RN)1754 (See Alternative - Provider: Alaina Avalos RN) 0004 (See Alternative - Provider: Jess Erazo, HARSHAL)0525 (See Alternative - Provider: Keyana Silva, HARSHAL)0931 (See Alternative - Provider: Lidia Henry, HARSHAL) Linked Groups Order Group 1: HYDROmorphone (Dilaudid) injection 0.25 mgJump to med 0.25 mg, IntraVENous, Every 4 hours PRN, moderate pain (4-6), Starting on Wed05/21/25 at 0241, Breakthrough pain. If oral and IV narcotics ordered, use oral first and only use IV if oral is ineffective or cannot take oral. Do Not give oral and IV within 1 hour of each other unless specifically ordered. Or HYDROmorphone (Dilaudid) injection 0.5 mgJump to med 0.5 mg, IntraVENous, Every 4 hours PRN, severe pain (7-10), Starting on Wed05/21/25 at 0241, Breakthrough pain. If oral and IV narcotics ordered, use oral first and only use IV if oral is ineffective or cannot take oral. Do Not give oral and IV within 1 hour of each other unless specifically ordered. Group 2: ondansetron ODT (Zofran-ODT) disintegrating tablet 4 mgJump to med 4 mg, Oral, Every 8 hours PRN, nausea, vomiting, Starting on Wed05/21/25 at 0002, Phase II/On Unit, Patient should allow tablet to dissolve on tongue. Do not remove from blister pack until just before administering. Or ondansetron (Zofran) injection 4 mgJump to med 4 mg, IntraVENous, Every 6 hours PRN, nausea, vomiting, Starting on Wed05/21/25 at 0002, Phase II/On Unit, Give IV if patient is unable to take orally. Group 3: oxyCODONE (Roxicodone) immediate release tablet 5 mgJump to med 5 mg, Oral, Every 4 hours PRN, moderate pain (4-6), Starting on Wed05/21/25 at 0002, Phase II/On Unit Or oxyCODONE (Roxicodone) immediate release tablet 10 mgJump to med 10 mg, Oral, Every 4 hours PRN, severe pain (7-10), Starting on Wed05/21/25 at 0002, Phase II/On Unit Scheduled Medication Order 05/24/2025 05/25/2025 05/26/2025 HYDROmorphone (Dilaudid) injection 1 mg (COMPLETED) 1 mg, IntraVENous, Once, On 05/26/25 at 1350, For 1 dose, If oral and injectable narcotics ordered, use oral first and only use injectable if oral is ineffective or cannot take oral. Do Not give oral and injectable within 1 hour of each other unless specifically ordered. 1350 (Given - Provid er: Willian Diaz RN) morphine injection 4 mg (COMPLETED) 4 mg, IntraVENous, Once, On 05/26/25 at 1205, For 1 dose, If oral and injectable narcotics ordered, use oral first and only use injectable if oral is ineffective or cannot take oral. Do Not give oral and injectable within 1 hour of each other unless specifically ordered. 1230 (Given - Provid er: Willian Diaz RN) ondansetron (Zofran) injection 4 mg (COMPLETED) 4 mg, IntraVENous, Once, On 05/26/25 at 1205, For 1 dose 1230 (Given - Provid er: Willian Diaz RN) sodium chloride 0.9 % bolus 1,000 mL (COMPLETED) 1,000 mL, IntraVENous, at 1,000 mL/hr, Administer over 1 Hours, Once, On 05/26/25 at 1205, For 1 dose 1230 (New Bag - Prov ider: Willian Diaz RN)1350 (Stopped - Provider: Willian Diaz RN) PRN Medication Order 05/24/2025 05/25/2025 05/26/2025 iopamidol (Isovue-370) 76 % injection 75 mL (COMPLETED) 75 mL, IntraVENous, IMG once PRN, contrast, Starting on 05/26/25 at 1301, For 1 dose 1317 (Given - Provid er: Marina Ro) Scheduled Medication Order 05/26/2025 05/27/2025 05/28/2025 acetaminophen (Tylenol) tablet 1,000 mg 1,000 mg, Oral, Every 8 hours scheduled (3 times per day), First dose on 05/27/25 at 1400, Maximum dose of acetaminophen is 4000 mg from all sources in 24 hours. 1414 (Given - Provider: Jaya Nix RN)2253 (Given - Provider: Jess Locke, HARSHAL) 0624 (Given - Provider: Jess Locke, HARSHAL) diatrizoate meglumine-sodium (Gastrografin) 66-10 % solution 30 mL (COMPLETED) 30 mL, Oral, Once, On 05/27/25 at 0915, For 1 dose, Mix 30 mL of Gastrografin in 32 oz of water. Inpatients - Drink half of the mixture 2 hours before exam and the other half 1 hour before exam. Emergency patients - Drink the entire mixture and then wait 1 hour to scan. 0936 (Given - Provider: Gay Armenta, HARSHAL) enoxaparin (Lovenox) syringe 30 mg 30 mg, SubCUTAneous, Every 12 hours scheduled (2 times per day), First dose on 05/27/25 at 2100, Indication of Use: Prophylaxis-DVT/PE 2252 (Given - Provider: Jess Locke, RN) 0815 (Given - Provider: Valeriy Umana, RN) HYDROmorphone (Dilaudid) injection 0.5 mg (COMPLETED) 0.5 mg, IntraVENous, Once, On 05/27/25 at 0900, For 1 dose, If oral and injectable narcotics ordered, use oral first and only use injectable if oral is ineffective or cannot take oral. Do Not give oral and injectable within 1 hour of each other unless specifically ordered. 09 (Given - Provider: Montana Gallo, EMT) Insulin Lispro (Humalog) injection 0-12 Units 0-12 Units, SubCUTAneous, Every 6 hours, First dose on 05/27/25 at 0935, NPO Medium Dose Correction Algorithm Glucose: Dose: If LESS than 150 No Insulin 150-199 2 Units 200-249 4 Units 250-299 6 Units 300-349 8 Units 350-400 10 Units Above 400 12 Units 1021 (Not Given - Provider: Jaya Nix RN - Reason: Order parameters not met)1715 (Not Given - Provider: Jaya Nix RN - Reason: Order parameters not met)2218 (Not Given - Provider: Jess Locke RN - Reason: Order parameters not met) 0426 (Not Given - Provider: Jess Locke RN - Reason: Order parameters not met - Comment: BS [phone] (Not Given - Provider: Valeriy Umana, HARSHAL - Reason: Order parameters not met) lacosamide (Vimpat) 200 mg in sodium chloride 70 mL IVPB 200 mg, IntraVENous, at 140 mL/hr, Administer over 30 Minutes, Every 12 hours, First dose on 05/27/25 at 1030 1007 (Not Given - Provider: Jaya Nix RN - Reason: Other - Comment: pt took prior to arrival)2317 (New Bag - Provider: Jess Locke RN)2353 (Stopped - Provider: Jess Locke, HARSHAL) 1030 (New Bag - Provider: Valeriy Umana, RN)1104 (Stopped - Provider: Valeriy Umana, RN) methocarbamol (Robaxin) injection 500 mg 500 mg, IntraVENous, Administer over 5 Minutes, Every 8 hours scheduled (3 times per day), First dose on 05/27/25 at 1400, Maximum dose: 3 g/day for no more than 3 consecutive days 1414 (Given - Provider: Jaya Nix RN)2253 (Given - Provider: Jess Locke, HARSHAL) 0623 (Given - Provider: Jess Locke, HARSHAL) ondansetron (Zofran) injection 4 mg (COMPLETED) 4 mg, IntraVENous, Once, On 05/27/25 at 0935, For 1 dose 0937 (Given - Provider: Montana Gallo, EMT) pantoprazole (ProtoNix) 40 mg in sodium chloride (PF) 0.9 % 10 mL injection (CANCELED) 40 mg, IntraVENous, Administer over 2 Minutes, Daily, First dose on 05/27/25 at 1015, Phase II/On Unit, Reconstitute with 10 ml NS. Vial expires 2 hrs after reconstitution. 1032 (Given - Provider: Jaya Nix RN) pantoprazole (ProtoNix) 40 mg in sodium chloride (PF) 0.9 % 10 mL injection(Linked Group 1) 40 mg, IntraVENous, Administer over 2 Minutes, 2 times daily before meals, First dose on 05/27/25 at 1400, Give only if unable to tolerate po. 1403 (See Alternative - Provider: Jaya Nix RN) 0624 (See Alternative - Provider: Jess Locke, HARSHAL) pantoprazole (ProtoNix) EC tablet 40 mg(Linked Group 1) 40 mg, Oral, 2 times daily before meals, First dose on 05/27/25 at 1400, Do not crush, chew, or split. 1403 (Not Given - Provider: Jaya Nix RN - Reason: Other - Comment: given this morning) 0624 (Given - Provider: Jess Locke, HARSHAL) sodium chloride 0.9 % bolus 1,000 mL (COMPLETED) 1,000 mL, IntraVENous, at 1,000 mL/hr, Administer over 1 Hours, Once, On 05/27/25 at 0915, For 1 dose 0925 (New Bag - Provider: Montana Gallo, EMT)1022 (Stopped - Provider: Jaya Nix RN) sucralfate (Carafate) tablet 1 g 1 g, Oral, 4 times daily before meals & nightly, First dose on 05/27/25 at 1700, Give on an empty stomach (1 hr before meals, at bedtime). Separate all other meds by at least 2 hours (exception: antacids may be given only 30 minutes apart). 1718 (Given - Provider: Jaya Nix, RN)2255 (Given - Provider: Jess Locke, RN) 0815 (Given - Provider: Valeriy Umana, HARSHAL)1200 (Canceled Entry - Provider: Automatic Discharge Provider - Comment: Automatically canceled at discontinue of medication order) Continuous Medication Order 05/26/2025 05/27/2025 05/28/2025 lactated Ringer's (LR) infusion 100 mL/hr, IntraVENous, Continuous, Starting on 05/27/25 at 0935 1022 (New Bag - Provider: Jaya Nix, RN)2003 (New Bag - Provider: Jess Locke, HARSHAL) 1351 (Due: Order Ending - Provider: Automatic Discharge Provider - Comment: [Order ends at this time. Document the following action when infusion is complete: Stopped]) PRN Medication Order 05/26/2025 05/27/2025 05/28/2025 dextrose 5 % infusion 100 mL/hr, IntraVENous, PRN, Blood sugar less than 70mg/dL, Starting on 05/27/25 at 0932, Start infusion following administration of dextrose 50% or glucagon. dextrose 50 % solution 12.5 g 12.5 g, IntraVENous, PRN, low blood sugar, Blood glucose less than 70 mg/dL and patient NOT ALERT or NPO., Starting on 05/27/25 at 0932, If patient does not respond within 5 minutes, repeat dose x1. Start D5W at 100 mL/hour until ordering provider can be reached. Repeat blood glucose in 15 minutes. If blood glucose is less than 70 mg/dL, repeat treatment and recheck blood glucose in 15 minutes x2. If using Glucostabilizer, dose as instructed per system. 1032 (Given - Provider: Jaya Nix RN) glucagon (human recombinant) injection 1 mg 1 mg, IntraMUSCular, PRN, low blood sugar, Blood glucose less than 70 mg/dL and patient NOT ALERT or NPO and does not have IV access., Starting on 05/27/25 at 0932, After administration, attempt intravenous access and start D5W at 100 mL/hr. Repeat blood glucose in 15 minutes x2 and notify provider. glucose oral gel 15 g 15 g, Oral, As needed, low blood sugar, Starting on 05/27/25 at 0932, If blood glucose less than 50 mg/dL and patient ALERT and NOT NPO, give 2 tubes glucose gel. If blood glucose less than 70 mg/dL and patient ALERT and NOT NPO, give 1 tube glucose gel. Repeat blood glucose in 15 minutes. If blood glucose is less than 70 mg/dL, repeat treatment and recheck blood glucose in 15 minutes x2 and notify provider. HYDROmorphone (Dilaudid) injection 0.25 mg(Linked Group 2) 0.25 mg, IntraVENous, Every 3 hours PRN, moderate pain (4-6), Starting on 05/27/25 at 0930, Breakthrough only If oral and IV narcotics ordered, use oral first and only use IV if oral is ineffective or cannot take oral. Do Not give oral and IV within 1 hour of each other unless specifically ordered. 1225 (See Alternative - Provider: Jaya Nix RN)153 (See Alternative - Provider: Genoveva Sandhu, HARSHAL)2002 (See Alternative - Provider: Jess Locke, HARSHAL) HYDROmorphone (Dilaudid) injection 0.5 mg(Linked Group 2) 0.5 mg, IntraVENous, Every 3 hours PRN, severe pain (7-10), Starting on 05/27/25 at 0930, If oral and IV narcotics ordered, use oral first and only use IV if oral is ineffective or cannot take oral. Do Not give oral and IV within 1 hour of each other unless specifically ordered. 1225 (Given - Provider: Jaya Nix RN)153 (Given - Provider: Genoveva Sandhu, HARSHAL)2002 (Given - Provider: Jess Locke, HARSHAL) naloxone (Narcan) injection 0.4 mg 0.4 mg, IntraVENous, Every 5 min PRN, opioid reversal, respiratory depression, Starting on 05/27/25 at 0935, +++ For RR <10, pinpoint pupils, over sedation for opioid reversal - MUST notify profile mill operator tape control provider immediately after first dose, may give IM or SQ if no IV access +++ ondansetron (Zofran) injection 4 mg(Linked Group 3) 4 mg, IntraVENous, Every 6 hours PRN, nausea, vomiting, Starting on 05/27/25 at 0929, 1st Line. Give IV if patient is unable to take orally. If inadequate response within 60 minutes, proceed to next-line agent or contact provider if no further options ordered. ondansetron ODT (Zofran-ODT) disintegrating tablet 4 mg(Linked Group 3) 4 mg, Oral, Every 8 hours PRN, nausea, vomiting, Starting on 05/27/25 at 0929, 1st Line. If inadequate response within 60 minutes, proceed to next-line agent or contact provider if no further options ordered. Patient should allow tablet to dissolve on tongue. Do not remove from blister pack until just before administering. oxyCODONE (Roxicodone) immediate release tablet 10 mg(Linked Group 4) 10 mg, Oral, Every 4 hours PRN, severe pain (7-10), Starting on 05/27/25 at 1358 1414 (Given - Provider: Jaya Nix RN)1839 (Given - Provider: Jaya Nix RN)2255 (Given - Provider: Jess Locke, HARSHAL) 0816 (Given - Provider: Valeriy Umana, HARSHAL) oxyCODONE (Roxicodone) immediate release tablet 5 mg(Linked Group 4) 5 mg, Oral, Every 4 hours PRN, moderate pain (4-6), Starting on 05/27/25 at 1358 1414 (See Alternative - Provider: Jaya Nix RN)183 (See Alternative - Provider: Jaya Nix RN)2255 (See Alternative - Provider: Jess Locke, HARSHAL) 0816 (See Alternative - Provider: Valeriy Umana, RN) Linked Groups Order Group 1: pantoprazole (ProtoNix) EC tablet 40 mgJump to med 40 mg, Oral, 2 times daily before meals, First dose on 05/27/25 at 1400, Do not crush, chew, or split. Or pantoprazole (ProtoNix) 40 mg in sodium chloride (PF) 0.9 % 10 mL injectionJump to med 40 mg, IntraVENous, Administer over 2 Minutes, 2 times daily before meals, First dose on 05/27/25 at 1400, Give only if unable to tolerate po. Group 2: HYDROmorphone (Dilaudid) injection 0.25 mgJump to med 0.25 mg, IntraVENous, Every 3 hours PRN, moderate pain (4-6), Starting on 05/27/25 at 0930, Breakthrough only If oral and IV narcotics ordered, use oral first and only use IV if oral is ineffective or cannot take oral. Do Not give oral and IV within 1 hour of each other unless specifically ordered. Or HYDROmorphone (Dilaudid) injection 0.5 mgJump to med 0.5 mg, IntraVENous, Every 3 hours PRN, severe pain (7-10), Starting on Wed05/27/25 at 0930, If oral and IV narcotics ordered, use oral first and only use IV if oral is ineffective or cannot take oral. Do Not give oral and IV within 1 hour of each other unless specifically ordered. Group 3: ondansetron ODT (Zofran-ODT) disintegrating tablet 4 mgJump to med 4 mg, Oral, Every 8 hours PRN, nausea, vomiting, Starting on 05/27/25 at 0929, 1st Line. If inadequate response within 60 minutes, proceed to next-line agent or contact provider if no further options ordered. Patient should allow tablet to dissolve on tongue. Do not remove from blister pack until just before administering. Or ondansetron (Zofran) injection 4 mgJump to med 4 mg, IntraVENous, Every 6 hours PRN, nausea, vomiting, Starting on 05/27/25 at 0929, 1st Line. Give IV if patient is unable to take orally. If inadequate response within 60 minutes, proceed to next-line agent or contact provider if no further options ordered. Group 4: oxyCODONE (Roxicodone) immediate release tablet 5 mgJump to med 5 mg, Oral, Every 4 hours PRN, moderate pain (4-6), Starting on Wed05/27/25 at 1358 Or oxyCODONE (Roxicodone) immediate release tablet 10 mgJump to med 10 mg, Oral, Every 4 hours PRN, severe pain (7-10), Starting on 05/27/25 at 1358 Scheduled Medication Order 06/06/2025 06/07/2025 06/08/2025 acetaminophen (Tylenol) tablet 1,000 mg 1,000 mg, Oral, Every 6 hours, First dose on Wed06/06/25 at 0630, Maximum dose of acetaminophen is 4000 mg from all sources in 24 hours. 0909 (Given - Provider: Carlito Jarquin RN)1438 (Given - Provider: Carlito Jarquin RN)2006 (Given - Provider: Antonio Lockhart RN) 0025 (Given - Provider: Antonio Lockhart RN)0601 (Not Given - Provider: Antonio Lockhart RN - Reason: Patient/family refused)1321 (Given - Provider: Carlito Jarquin RN)1930 (Not Given - Provider: Chris Hicks RN - Reason: Patient/family refused) 0057 (Given - Provider: Chrsi Hicks RN)0551 (Given - Provider: Chris Hicks RN)1205 (Given - Provider: Carlito Jarquin RN)1830 (Canceled Entry - Provider: Automatic Discharge Provider - Comment: Automatically canceled at discontinue of medication order) amitriptyline (Elavil) tablet 50 mg 50 mg, Oral, Nightly, First dose on Wed06/05/25 at 2200 2007 (Given - Provider: Antonio Lockhart RN) 2118 (Given - Provider: Chris Hicks, HARSHAL) ARIPiprazole (Abilify) tablet 10 mg 10 mg, Oral, Daily, First dose on Wed06/06/25 at 0900 0909 (Given - Provider: Carlito Jarquin RN) 0913 (Given - Provider: Carlito Jarquin RN) 0905 (Given - Provider: Carlito Jarquin RN) diatrizoate meglumine-sodium (Gastrografin) 66-10 % solution 120 mL (COMPLETED) 120 mL, Oral, Once, On Breana 06/07/25 at 1300, For 1 dose, Administered at the time of the exam. 1246 (Given - Provider: Sari White, RT (R)) DULoxetine (Cymbalta) DR capsule 60 mg 60 mg, Oral, 2 times daily, First dose on Wed06/05/25 at 2200, Do not crush or chew., Indications: Major Depressive Disorder 908 (Given - Provider: Carlito Jarquin RN)2007 (Given - Provider: Antonio Lockhart RN) 911 (Given - Provider: Carlito Jarquin RN)2117 (Given - Provider: Chris Hicks RN) 904 (Given - Provider: Carlito Jarquin RN) haloperidol lactate (Haldol) injection 5 mg (COMPLETED) 5 mg, IntraMUSCular, Once, On Wed06/06/25 at 1500, For 1 dose, IM route of administration preferred. Because of the risk of TdP and QT prolongation, ECG monitoring is recommended if haloperidol is given IV 1514 (Given - Provider: Carlito Jarquin RN) HYDROmorphone (Dilaudid) injection 0.5 mg (COMPLETED) 0.5 mg, IntraVENous, Once, On Wed06/06/25 at 1345, For 1 dose, If oral and injectable narcotics ordered, use oral first and only use injectable if oral is ineffective or cannot take oral. Do Not give oral and injectable within 1 hour of each other unless specifically ordered. 1514 (Given - Provider: Carlito Jarquin RN) lacosamide (Vimpat) tablet 200 mg 200 mg, Oral, 2 times daily, First dose on Wed06/05/25 at 2200, Swallow tablets whole; do not divide. 908 (Given - Provider: Carlito Jarquin RN)2007 (Given - Provider: Antonio Lockhart RN) 912 (Given - Provider: Carlito Jarquin RN)2117 (Given - Provider: Chris Hicks, HARSHAL) 904 (Given - Provider: Carlito Jarquin RN) sodium chloride 0.9% (NS) flush 10 mL 10 mL, IntraVENous, Every 12 hours scheduled (2 times per day), First dose on Wed06/05/25 at 2100 0910 (Not Given - Provider: Carlito Jarquin RN - Reason: IV Fluids Infusing)2006 (Not Given - Provider: Antonio Lockhart RN - Reason: IV Fluids Infusing) 907 (Not Given - Provider: Carlito Jarquin RN - Reason: IV Fluids Infusing)2118 (Given - Provider: Chris Hicks RN) 0906 (Not Given - Provider: Carlito Jarquin RN - Reason: IV Fluids Infusing) thiamine (Vitamin B1) 500 mg in sodium chloride 0.9 % 50 mL IVPB 500 mg, IntraVENous, at 100 mL/hr, Administer over 30 Minutes, 3 times daily, First dose on Wed06/05/25 at 1635, For 5 days, Protect from light. 0013 (Stopped - Provider: Antonio Lockhart RN)0910 (New Bag - Provider: Carlito Jarquin RN)1041 (Stopped - Provider: Carlito Jarquin RN)1437 (New Bag - Provider: Carlito Jarquin RN)1612 (Stopped - Provider: Carlito Jarquin RN)2139 (New Bag - Provider: Antonio Lockhart RN)2258 (Stopped - Provider: Antonio Lockhart RN) 0913 (New Bag - Provider: Carlito Jarquin RN)1050 (Stopped - Provider: Carlito Jarquin RN)1422 (New Bag - Provider: Carlyle Cuellar RN)1452 (Stopped - Provider: Carlyle Cuellar RN)2146 (New Bag - Provider: Chris Hicks RN)2216 (Stopped - Provider: Chris Hicks RN) 0906 (New Bag - Provider: Carlito Jarquin RN)1100 (Stopped - Provider: Carlito Jarquin RN)1400 (Canceled Entry - Provider: Automatic Discharge Provider - Comment: Automatically canceled at discontinue of medication order) Continuous Medication Order 06/06/2025 06/07/2025 06/08/2025 sodium chloride 0.9 % infusion (CANCELED) 100 mL/hr, IntraVENous, Continuous, Starting on Wed06/05/25 at 1815 0909 (New Bag - Provider: Carlito Jarquin RN)0910 (New Bag - Provider: Carlito Jarquin RN)0952 (New Bag - Provider: Carlito Jarquin RN)1155 (Rate/Dose Verify - Provider: Carlito Jarquin RN)1419 (Rate/Dose Verify - Provider: Carlito Jarquin RN)1650 (Rate/Dose Verify - Provider: Carlito Jarquin RN)1855 (Rate/Dose Verify - Provider: Carlito Jarquin RN) 0749 (New Bag - Provider: Carlito Jarquin RN)1001 (Rate/Dose Verify - Provider: Carlito Jarquin RN)1203 (Rate/Dose Verify - Provider: Carlito Jarquin RN)1503 (Rate/Dose Verify - Provider: Carlito Jarquin RN)1712 (Rate/Dose Verify - Provider: Carlito Jarquin RN)1900 (Rate/Dose Verify - Provider: Chris Hicks RN)1901 (New Bag - Provider: Carlito Jarquin RN)2000 (Rate/Dose Verify - Provider: Chris Hicks RN)2100 (Rate/Dose Verify - Provider: Chris Hicks RN)2200 (Rate/Dose Verify - Provider: Chris Hicks RN)2300 (Rate/Dose Verify - Provider: Chris Hicks RN) 0000 (Rate/Dose Verify - Provider: Chris Hicks RN)0708 (Rate/Dose Verify - Provider: Carlito Jarquin RN)0905 (New Bag - Provider: Carlito Jarquin RN)1100 (Stopped - Provider: Carlito Jarquin RN - Comment: [Order ends at this time. Document the following action when infusion is complete: Stopped]) PRN Medication Order 06/06/2025 06/07/2025 06/08/2025 LORazepam (Ativan) tablet 0.5 mg 0.5 mg, Oral, Daily PRN, anxiety, Starting on Wed06/05/25 at 2155 1227 (Given - Provider: Carlito Jarquin RN) 1631 (Given - Provider: Carlito Jarquin RN) morphine injection 2 mg(Linked Group 1) 2 mg, IntraVENous, Every 4 hours PRN, moderate pain (4-6), Starting on Wed06/05/25 at 2116, If oral and IV narcotics ordered, use oral first and only use IV if oral is ineffective or cannot take oral. Do Not give oral and IV within 1 hour of each other unless specifically ordered. 0549 (Given - Provider: Antonio Lockhart RN)0949 (See Alternative - Provider: Carlito Jarquin RN)1347 (See Alternative - Provider: Maria Del Carmen Garcia RN) 0912 (See Alternative - Provider: Carlito Jarquin RN)1321 (See Alternative - Provider: Carlito Jarquin RN)1731 (See Alternative - Provider: Carlito Jarquin RN) 0100 (See Alternative - Provider: Chris Hicks RN)0905 (See Alternative - Provider: Carlito Jarquin RN)1326 (See Alternative - Provider: Carlito Jarquin RN) morphine injection 4 mg(Linked Group 1) 4 mg, IntraVENous, Every 4 hours PRN, severe pain (7-10), Starting on Wed06/05/25 at 2116, If oral and IV narcotics ordered, use oral first and only use IV if oral is ineffective or cannot take oral. Do Not give oral and IV within 1 hour of each other unless specifically ordered. 0549 (See Alternative - Provider: Antonio Lockhart RN)0949 (Given - Provider: Carlito Jarquin RN)1347 (Given - Provider: Maria Del Carmen Garcia RN) 0912 (Given - Provider: Carlito Jarquin RN)1321 (Given - Provider: Carlito Jarquin RN)1731 (Given - Provider: Carlito Jarquin RN) 0100 (Given - Provider: Chris Hicks RN)0905 (Given - Provider: Carlito Jarquin RN)1326 (Given - Provider: Carlito Jarquin RN) naloxone (Narcan) 0.4 mg in 0.9% sodium chloride 10 mL syringe IntraVENous, PRN, opioid reversal, Starting on Wed06/05/25 at 2116, PRN if respiratory rate is less than 6/min and patient is difficult to arouse then notify physician STAT. Mix 9 mL of sodium chloride 0.9% with 0.4 mg (1 mL) of naloxone (NARCAN) in 10 mL syringe. (Note: dilution is 0.04 mg/mL) Give 0.08 mg (2 mL of special dilution), slow IV push, repeat up to 0.4 mg (10 mL) or until patient is responsive to physical stimulation and respiratory rate is equal to or greater than 6 breaths/min. Continue to observe, if no response within 3 minutes of administration of 0.4 mg (10 mL) total, repeat dose (0.4 mg as administered previously). ondansetron (Zofran) injection 4 mg(Linked Group 2) 4 mg, IntraVENous, Every 6 hours PRN, nausea, vomiting, Starting on Wed06/05/25 at 1811, 1st Line. Give IV if patient is unable to take orally. If inadequate response within 60 minutes, proceed to next-line agent or contact provider if no further options ordered. 0954 (Given - Provider: Carlito Jarquin RN) 0749 (Given - Provider: Carlito Jarquin RN) 0905 (Given - Provider: Carlito Jarquin RN) ondansetron ODT (Zofran-ODT) disintegrating tablet 4 mg(Linked Group 2) 4 mg, Oral, Every 8 hours PRN, nausea, vomiting, Starting on Wed06/05/25 at 1811, 1st Line. If inadequate response within 60 minutes, proceed to next-line agent or contact provider if no further options ordered. Patient should allow tablet to dissolve on tongue. Do not remove from blister pack until just before administering. 0954 (See Alternative - Provider: Carlito aJrquin RN) 0749 (See Alternative - Provider: Carlito Jarquin RN) 0905 (See Alternative - Provider: Carlito Jarquin RN) oxyCODONE (Roxicodone) immediate release tablet 10 mg(Linked Group 3) 10 mg, Oral, Every 4 hours PRN, severe pain (7-10), Starting on Wed06/05/25 at 2117 0547 (Given - Provider: Antonio Lockhart RN)1138 (Given - Provider: Maria Del Carmen Garcia RN)2007 (Given - Provider: Antonio Lockhart RN) 0749 (Given - Provider: Carlito Jarquin RN)1446 (Given - Provider: Carlyle Cuellar RN)2117 (Given - Provider: Chris Hicks, HARSHAL) 0553 (Given - Provider: Chris Hicks, RN)1205 (Given - Provider: Carlito Jarquin RN) oxyCODONE (Roxicodone) immediate release tablet 5 mg(Linked Group 3) 5 mg, Oral, Every 4 hours PRN, moderate pain (4-6), Starting on Wed06/05/25 at 2117 0547 (See Alternative - Provider: Antonio Lockhart RN)1138 (See Alternative - Provider: Maria Del Carmen Garcia, RN)2007 (See Alternative - Provider: Antonio Lockhart, RN) 0749 (See Alternative - Provider: Carlito Jarquin, RN)1446 (See Alternative - Provider: Carlyle Cuellar, RN)2116 (See Alternative - Provider: Chris Hicks, RN) 0553 (See Alternative - Provider: Chris Hicks, RN)1205 (See Alternative - Provider: Carlito Jarquin, RN) sodium chloride 0.9 % infusion 5-250 mL/hr, IntraVENous, PRN, if patient receiving piggyback infusions and maintenance fluids are not ordered OR KVO fluids to protect IV site / prevent frequent line interruptions/ long duration, Starting on Wed06/05/25 at 181, For piggyback infusion, administer at same rate as piggyback for a total of 25 mL. Enter 25 mL into dose field and piggyback rate into rate field of order. If piggyback is infusing at a rate less than 100 mL/hr, enter 25 mL into dose field and 100 mL/hr into rate field of order. For KVO fluids, enter rate of 20 mL/hr or less into rate field of order. sodium chloride 0.9% (NS) flush 10 mL 10 mL, IntraVENous, PRN, line care, Starting on Wed06/05/25 at 181, After every IV line use Linked Groups Order Group 1: morphine injection 2 mgJump to med 2 mg, IntraVENous, Every 4 hours PRN, moderate pain (4-6), Starting on Wed06/05/25 at 2115, If oral and IV narcotics ordered, use oral first and only use IV if oral is ineffective or cannot take oral. Do Not give oral and IV within 1 hour of each other unless specifically ordered. Or morphine injection 4 mgJump to med 4 mg, IntraVENous, Every 4 hours PRN, severe pain (7-10), Starting on Wed06/05/25 at 2115, If oral and IV narcotics ordered, use oral first and only use IV if oral is ineffective or cannot take oral. Do Not give oral and IV within 1 hour of each other unless specifically ordered. Group 2: ondansetron ODT (Zofran-ODT) disintegrating tablet 4 mgJump to med 4 mg, Oral, Every 8 hours PRN, nausea, vomiting, Starting on Wed06/05/25 at 1811, 1st Line. If inadequate response within 60 minutes, proceed to next-line agent or contact provider if no further options ordered. Patient should allow tablet to dissolve on tongue. Do not remove from blister pack until just before administering. Or ondansetron (Zofran) injection 4 mgJump to med 4 mg, IntraVENous, Every 6 hours PRN, nausea, vomiting, Starting on Wed06/05/25 at 1811, 1st Line. Give IV if patient is unable to take orally. If inadequate response within 60 minutes, proceed to next-line agent or contact provider if no further options ordered. Group 3: oxyCODONE (Roxicodone) immediate release tablet 5 mgJump to med 5 mg, Oral, Every 4 hours PRN, moderate pain (4-6), Starting on Wed06/05/25 at 2117 Or oxyCODONE (Roxicodone) immediate release tablet 10 mgJump to med 10 mg, Oral, Every 4 hours PRN, severe pain (7-10), Starting on Wed06/05/25 at 2117 Scheduled Medication Order 07/02/2025 07/03/2025 07/04/2025 diazePAM (Valium) tablet 5 mg (COMPLETED) 5 mg, Oral, Once, On Wed07/04/25 at 0745, For 1 dose 0744 (Given - Provid er: Boogie Gomez RN) HYDROmorphone (Dilaudid) injection 1 mg (COMPLETED) 1 mg, IntraMUSCular, Once, On Wed07/04/25 at 0745, For 1 dose, If oral and injectable narcotics ordered, use oral first and only use injectable if oral is ineffective or cannot take oral. Do Not give oral and injectable within 1 hour of each other unless specifically ordered. 0744 (Given - Provid er: Boogie Gomez RN) Goals (unrecognized section and content) Goals may be documented in a n alternate section FOR RECORDS PERTAINING TO PATIENTS WHO ARE OR HAVE BEEN ENROLLED IN A CHEMICAL DEPENDENCY/SUBSTANCEABUSE PROGRAM, SOME INFORMATION MAY BE OMITTED. This clinical summary was aggregated from multiple sources. Caution should be exercised in using it in the provision of clinical care. This summary normalizes information from multiple sources, and as a consequence, information in this document may materially change the coding, format and clinical context of patient data. In addition, data may be omitted in some cases. CLINICAL DECISIONS SHOULD BE BASED ON THE PRIMARY CLINICAL RECORDS. [facility]. provides no warranty or guarantee of the accuracy or completeness of information in this document.
== END 2025-07-04 14:02 | disposition left against medical advice (07) ==
PROVIDERS: Emergency Provider Emergency Medicine; PCP Family Medicine; Visit Provider Emergency Medicine
DX: G89.29 Other chronic pain (principal); M54.9 Dorsalgia, unspecified; I10 Essential (primary) hypertension; Z98.84 Bariatric surgery status; F41.9 Anxiety disorder, unspecified; F32.A Depression, unspecified; Z79.899 Other long term (current) drug therapy; K21.9 Gastro-esophageal reflux disease without esophagitis; Z90.49 Acquired absence of other specified parts of digestive tract; Z90.710 Acquired absence of both cervix and uterus
CPT/HCPCS: 99282

== ENCOUNTER → 2025-07-05 | Outpatient (CLI) | payer MEDICARE, SELFPAY ==
--- NOTE | 2025-07-05 13:13 | MRI_ITS ---
PROCEDURE: SPINE LUMBAR (ROUTINE) 07/05/2025 REASON FOR EXAM: LUMBAR DDD, RADICULOPATHY. INCREASED PAIN AFTER RECENT INJECTION TECHNIQUE: SPINE LUMBAR (ROUTINE) COMPARISON: None FINDINGS: Vertebrae: No fracture. Alignment: Normal. No spondylolisthesis. Conus Medullaris: Terminates at T12/L1. No abnormal signal. L1-2: Normal L2-3: Minimal, diffuse disc bulge. [id number] thickening of ligamentum flavum. Mild facet hypertrophy. No central stenosis, exit foraminal narrowing. L3-4: Mild disc desiccation. Mild loss of disc height posteriorly. Mild, diffuse disc bulge. Moderate thickening of ligamentum flavum. [id number] facet hypertrophy. No central stenosis. Small amount of fat is seen around the exiting nerve roots but no definite compromise of the nerve root. L4-5: Mild loss of disc height. Mild, diffuse disc bulge. Moderate thickening of ligamentum flavum and [id number] facet hypertrophy. Exit foraminal narrowing mainly from facet disease. Correlate with L4 radiculopathy. L5-S1: Mild, diffuse disc bulge. Mild facet hypertrophy. No stenosis. Sacrum: Limited but unremarkable. MRI/Spine Lumbar (Routine) IMPRESSION: Mild multilevel degenerative change greatest at L3/4, L4/5. Reading Location: [id number]
== END | disposition home or self-care (01) ==
LOC: OPMRI 13:09
PROVIDERS: PCP Family Medicine; Referring Provider Clinical Nurse Specialist Adult Health; Visit Provider Clinical Nurse Specialist Adult Health
DX: M51.16 Intervertebral disc disorders with radiculopathy, lumbar region (principal)
CPT/HCPCS: 72148

== ENCOUNTER → 2025-09-13 | Outpatient (CLI) | payer MEDICARE, SELFPAY ==
--- NOTE | 2025-09-13 15:44 | RAD_ITS ---
PROCEDURE: L/S SPINE COMP/W BENDING VIEWS 09/13/2025 REASON FOR EXAM: RECENT FALL TECHNIQUE: Procedure Code: [id number] Modality: DX Procedure: L/S SPINE COMP/W BENDING VIEWS COMPARISON: July 05, 2025 MRI FINDINGS: There is levoscoliosis of the lumbar spine with Escoto angle = 11 degrees from T12-L4, apex L2. Vertebral body height and alignment are maintained. There is loss of disc height which is most severe from L3-5. There is no significant spondylolisthesis demonstrated on the flexion or extension views. There is moderate facet sclerosis. Mineralization is normal. Surgical clips are noted in the right upper quadrant. RAD/L/S Spine Comp/w Bending Views IMPRESSION: There is levoscoliosis of the lumbar spine with Escoto angle = 11 degrees from T1 2-L4, apex L2. There is no instability demonstrated. There is loss of disc height which is most severe from L3-5. Reading Location: [facility]
--- NOTE | 2025-09-13 15:44 | RAD_ITS ---
PROCEDURE: L/S SPINE COMP/W BENDING VIEWS 09/13/2025 REASON FOR EXAM: RECENT FALL TECHNIQUE: Procedure Code: [id number] Modality: DX Procedure: L/S SPINE COMP/W BENDING VIEWS COMPARISON: July 05, 2025 MRI FINDINGS: There is levoscoliosis of the lumbar spine with Escoto angle = 11 degrees from T12-L4, apex L2. Vertebral body height and alignment are maintained. There is loss of disc height which is most severe from L3-5. There is no significant spondylolisthesis demonstrated on the flexion or extension views. There is moderate facet sclerosis. Mineralization is normal. Surgical clips are noted in the right upper quadrant. RAD/L/S Spine Comp/w Bending Views IMPRESSION: There is levoscoliosis of the lumbar spine with Escoto angle = 11 degrees from T1 2-L4, apex L2. There is no instability demonstrated. There is loss of disc height which is most severe from L3-5. Reading Location: [facility]
== END | disposition home or self-care (01) ==
LOC: MTRAD 15:40
PROVIDERS: PCP Family Medicine; Referring Provider Anesthesiology Pain Medicine; Visit Provider Anesthesiology Pain Medicine
DX: M51.372 Other intervertebral disc degeneration, lumbosacral region with discogenic back pain and lower extremity pain (principal); W19.XXXA Unspecified fall, initial encounter
CPT/HCPCS: 72114